=== PATIENT | male | born 1950 | race Caucasian/White ===

== ENCOUNTER 2018-09-13 22:15 | Emergency (ER) | payer OTHER ==
[2018-09-13 22:39] LABS: Absolute Lymphocytes (CBC) 0.4 K/uL (0.7-4.9); Basophils % 0.1 % (0-1.3); Hematocrit 40.5 % (39.6-49.0); Lymphocytes % 5.1 % (15.3-44.8); MPV 8.6 fL (7.6-11.3); RBC Red Blood Cell Count 4.64 M/uL (4.33-5.43)
[2018-09-13 22:43] LABS: Protime INR 1.09
[2018-09-13 23:00] LABS: Potassium 4.4 mmol/L (3.5-5.1); Troponin (Emerg Dept Use Only) 0.19 ng/mL (0.0-0.045)
[2018-09-13] MEDS ORDERED: ALTEPLASE 100 ML IV ONE (23:06)
[2018-09-13] MEDS ORDERED: NA CHLORIDE 0.9% 500 ML ONE (23:06)
[2018-09-13 23:12] LABS: Blood Morphology Comment NOT SEEN (NOT SEEN); Platelet Estimate ADEQ; Urine White Blood Cell Casts OK
[2018-09-13 23:42] LABS: Urine Blood NEGATIVE (NEG); Urine Glucose NEGATIVE (NEG); Urine Protein TRACE (NEG); Urine Specific Gravity 1.015 (1.005-1.030); Urine pH 8.5 (5.0-7.0)
--- NOTE | 2018-09-13 23:48 | ER ---
Nurse's Notes [facility] Name: Lamin Fitzpatrick III Age: 67 yrs Sex: Male : 1950 Arrival Date: 09/13/2018 Time: 22:18 Bed 2 Private MD: Diagnosis: Acute ischemic stroke;Weakness;Slurred speech;Paresthesia of skin Presentation: 09/13 22:16 Presenting complaint: EMS states: that they were toned for pt on floor x 2 hrs. He is fc having left sided paralysis and slurred speech. Last known time 1999 per sister who he lives with. Transition of care: patient was not received from another setting of care. An acute neurological deficit is present. The charge nurse has been notified. The patient has been moved to a treatment area. Pre-hospital glucose is not applicable to this patient. Onset of symptoms was September 13, 2018 at 20:00. Risk Assessment: Do you want to hurt yourself or someone else? Patient reports no desire to harm self or others. Initial Sepsis Screen: Does the patient meet any 2 criteria? HR > 90 bpm. Yes Does the patient have a suspected source of infection? No. Patient's initial sepsis screen is negative. Care prior to arrival: IV initiated. 18 GA, in the right antecubital area. 22:16 Method Of Arrival: EMS: [facility] 22:16 Acuity: JODIE 1 fc Triage Assessment: 22:16 The onset of the patients symptoms was September 13, 2018 at 20:00. General: Appears in no fc apparent distress. comfortable, obese, Behavior is calm, cooperative, appropriate for age. Pain: Denies pain. EENT: No deficits noted. Neuro: Level of Consciousness is awake, alert, obeys commands, Oriented to person, place, time, situation, Appropriate for age Chief Operator Hydroformer are weak on left Paralysis in left arm(s) leg(s) Speech is slurred, Facial droop on left, Pupils are PERRLA, decreased on left side. Reports paresthesias in left arm and left leg. Cardiovascular: Heart tones S1 S2 present Capillary refill < 3 seconds Pulses are all present. Rhythm is regular Chest pain is denied. Respiratory: Airway is patent Trachea midline Respiratory effort is even, unlabored, Respiratory pattern is regular, symmetrical, Breath sounds are clear bilaterally. Onset: The symptoms/episode began/occurred suddenly. GI: Abdomen is non-distended, Bowel sounds present X 4 quads. Abd is soft and non tender X 4 quads. Patient currently denies abdominal pain, nausea, vomiting. : No deficits noted. Derm: Skin is pink, warm \T\ dry. Musculoskeletal: Capillary refill < 3 seconds, Range of motion: paralysis on left side. Stroke Activation: Symtpom onset >3 hours and < 6 hours Physician: Stroke Attending; Name: ; Notified At: ; Arrived At: Physician: Chief Stroke Resident; Name: ; Notified At: ; Arrived At: Physician: Stroke Resident; Name: ; Notified At: ; Arrived At: Physician: ED Attending; Name: Noyola; Notified At: 22:22; Arrived At: 22:15 Physician: ED Resident; Name: ; Notified At: ; Arrived At: Historical: - Allergies: 23:40 No Known Allergies; fc - Home Meds: 23:40 aspirin 325 mg Oral tab 1 tab Every other day [Active]; carvedilol Oral 1 tab 2 times fc per day [Active]; - PMHx: 23:40 CHF; CAD; Gout; fc - PSHx: 23:40 CABG; fc - Immunization history:: Last tetanus immunization: unknown. - Social history:: Smoking status: Patient/guardian denies using tobacco, Patient uses alcohol, occasionally. - Family history:: not pertinent. - Ebola Screening: : Patient negative for fever greater than or equal to 101.5 degrees Fahrenheit, and additional compatible Ebola Virus Disease symptoms Patient denies exposure to infectious person Patient denies travel to an Ebola-affected area in the 21 days before illness onset. - Hospitalizations: : No recent hospitalization is reported. Screenin:16 Abuse screen: Denies threats or abuse. Nutritional screening: No deficits noted. fc Tuberculosis screening: No symptoms or risk factors identified. Fall Risk Fall in past 12 months (25 points). No secondary diagnosis (0 pts). IV access (20 points). Ambulatory Aid- None/Bed Rest/Nurse Assist (0 pts). Gait- Weak (10 pts.). Mental Status- Overestimates/Forgets Limitations (15 pts.). Total Castillo Fall Scale indicates High Risk Score (45 or more points). Fall prevention measures have been instituted. Side Rails Up X 2 Placed Close to Nursing Station Frequent Obs/Assessments Occuring As available patient and family educated on Fall Prevention Program and Strategies. Assessment: 22:[address] request. The patient is alert, and able to follow commands. The patient exhibits fc slurred or garbled speech. The patient is not exhibiting difficulty speaking. The patient is exhibiting difficulty understanding words. The patient is able to swallow own secretions with no drooling or need for suction. not done not done Provider notified of bedside swallow screening results: Warren Noyola MD. T-PA (Activase) Screening: Indications: Definite evidence of stroke, ischemic, embolic, or hypertensive: Yes. Treatment will start within 4.5 hours onset of symptoms: Yes. No evidence of intracranial hemorrhage or CT of head and no evidence of peripheral hemorrhage or recent CVA: Yes. Consent for thrombolytic therapy: Yes. 22:20 Reassessment: see triage assessment. fc 22:50 Reassessment: Dr Noyola speaking with pts family attempting to narrow down times better. fc 23:26 Reassessment: TPA started. Dr Noyola and family at bedside. fc 23:43 Reassessment: Dr Noyola at bedside to speak with family about pts current situation and fc what needs to be done. 23:54 Reassessment: Pt is red and has whelps all over his face. Dr Noyola in to see pt and fc ordered to hold TPA and give Benadryl. 23:56 Reassessment: has re-evaluated pt and pt to get Solu-Medrol and Pepcid. 09/14 00:00 Reassessment: See TPA vital sign sheet. fc 00:14 Reassessment: Life flight here at bedside and report given. fc 00:15 Reassessment: Pt now has small amt of movement to left leg but not to left arm. Speech fc clear. Vital Signs: 09/13 22:16 BP 153 / 97; Pulse 119; Resp 20; Temp 98.4(O); Pulse Ox 100% on R/A; Weight 100.7 kg fc (R); Height 6 ft. 1 in. (185.42 cm) (R); Pain 0/10; 22:45 BP 121 / 83; Pulse 115; Resp 20; Pulse Ox 100% ; fc 23:00 BP 123 / 92; Pulse 113; Resp 20; Pulse Ox 100% on R/A; 23:30 BP 123 / 85; Pulse 110; Resp 20; Pulse Ox 100% ; Pain 0/10; fc 09/14 00:00 BP 138 / 96; Pulse 126; Resp 22; Pulse Ox 100% on R/A; fc 09/13 22:16 Body Mass Index 29.29 (100.70 kg, 185.42 cm) NIH Stroke Scale Scores: 09/13 22:18 NIHSS Score: 12 fc 22:18 NIHSS Score: 12 fc 22:22 NIHSS Score: 12 market research intern Course: 22:16 Arm band placed on Patient placed in an exam room, on a stretcher. 22:16 Patient has correct armband on for positive identification. Placed in gown. Bed in low fc position. Call light in reach. Side rails up X2. surveillance system monitor on. Pulse ox on. NIBP on. 22:16 No provider procedures requiring assistance completed. Maintain EMS IV. Dressing fc intact. Good blood return noted. Site clean \T\ dry. Gauge \T\ site: 18 gauge to right a/c. 22:18 Patient arrived in ED. rn 22:18 Warren Noyola MD is Attending Physician. rn 22:31 CT completed. Patient tolerated procedure well. Patient moved back from CT. nj 22:35 CT Stroke Brain w/o Contrast In Process Unspecified. EDMS 22:37 Stroke CXR 1 View In Process Unspecified. EDMS 23:33 Triage completed. 09/14 00:20 Patient transferred, IV remains in place. ak1 Administered Medications: 09/13 23:26 Drug: ACTIvase {Co-Signature: akRaysa (Lashay Garrett RN).} Route: IV Thrombolytics; Rate: fc calculated rate; Infused Over: 60 mins; 09/14 00:15 Follow up: Response: Adverse reaction, Physician notified; Stopped and other fc medications given 00:15 Follow up: Response: Adverse reaction, Physician notified; Adverse reaction, Physician ak1 notified.order to d/c infusion. 09/13 23:55 Drug: Benadryl 50 mg Route: IVP; Site: right antecubital; 09/14 00:15 Follow up: Response: No adverse reaction; Marked relief of symptoms 00:01 Drug: SOLU-Medrol 125 mg Route: IVP; Site: right antecubital; 00:15 Follow up: Response: No adverse reaction; Marked relief of symptoms 00:01 Drug: Pepcid 20 mg Route: IVP; Site: right antecubital; 00:15 Follow up: Response: No adverse reaction; No change in condition Point of Care Testing: Blood Glucose: 09/13 22:25 Blood Glucose: 184 mg/dL; Ranges: Intake: Outcome: 23:47 ER care complete, transfer ordered by MD. curran 09/14 00:10 Transferred by helicopter to [facility], Transfer form completed. ak1 X-rays sent w/ patient. Note: report given to [facility]. flight . Condition: stable 00:10 Instructed on the need for transfer, Demonstrated understanding of instructions. ak1 00:20 Patient left the ED. NIH Stroke Scale - NIH Stroke Score Date: 09/13/2018 Time: 22:18 Total Score = 12 1a. Level of Consciousness (LOC) - 0(Alert) 1b. Level of Consciousness (LOC) (Year \T\ Age) - 0(Both) 1c. LOC Commands (Open \T\ Closes Eyes/Solar Energy Technician) - 0(Both) 2. Best Gaze (Lateral Gaze Paresis) - 0(Normal) 3. Visual Field Loss - 0(No visual loss) 4. Facial Palsy - 2(Partial paralysis) 5a. Left Arm: Motor (10-second hold) - 4(No movement) 5b. Right Arm: Motor (10-second hold) - 0(No drift) 6a. Left Leg: Motor (5-second hold - always test supine) - 4(No movement) 6b. Right Leg: Motor (5-second hold - always test supine) - 0(No drift) 7. Limb Ataxia (finger/nose \T\ heel/blank - test with eyes open) - 0(Absent) 8. Sensory Loss (pinprick arms/legs/face) - 1(Mild to moderate loss) 9. Best Language: Aphasia (description/naming/reading) - 0(No aphasia) 10. Dysarthria (speech clarity - read or repeat words) - 1(Mild to Moderate) 11. Extinction and Inattention (visual/tactile/auditory/spatial/personal) - 0(No abnormality) Initials: NIH Stroke Scale - NIH Stroke Score Date: 09/13/2018 Time: 22:18 Total Score = 12 1a. Level of Consciousness (LOC) - 0(Alert) 1b. Level of Consciousness (LOC) (Year \T\ Age) - 0(Both) 1c. LOC Commands (Open \T\ Closes Eyes/Solar Energy Technician) - 0(Both) 2. Best Gaze (Lateral Gaze Paresis) - 0(Normal) 3. Visual Field Loss - 0(No visual loss) 4. Facial Palsy - 2(Partial paralysis) 5a. Left Arm: Motor (10-second hold) - 4(No movement) 5b. Right Arm: Motor (10-second hold) - 0(No drift) 6a. Left Leg: Motor (5-second hold - always test supine) - 4(No movement) 6b. Right Leg: Motor (5-second hold - always test supine) - 0(No drift) 7. Limb Ataxia (finger/nose \T\ heel/blank - test with eyes open) - 0(Absent) 8. Sensory Loss (pinprick arms/legs/face) - 1(Mild to moderate loss) 9. Best Language: Aphasia (description/naming/reading) - 0(No aphasia) 10. Dysarthria (speech clarity - read or repeat words) - 1(Mild to Moderate) 11. Extinction and Inattention (visual/tactile/auditory/spatial/personal) - 0(No abnormality) Initials: NIH Stroke Scale - NIH Stroke Score Date: 09/13/2018 Time: 22:22 Total Score = 12 1a. Level of Consciousness (LOC) - 0(Alert) 1b. Level of Consciousness (LOC) (Year \T\ Age) - 0(Both) 1c. LOC Commands (Open \T\ Closes Eyes/Solar Energy Technician) - 0(Both) 2. Best Gaze (Lateral Gaze Paresis) - 0(Normal) 3. Visual Field Loss - 0(No visual loss) 4. Facial Palsy - 2(Partial paralysis) 5a. Left Arm: Motor (10-second hold) - 4(No movement) 5b. Right Arm: Motor (10-second hold) - 0(No drift) 6a. Left Leg: Motor (5-second hold - always test supine) - 4(No movement) 6b. Right Leg: Motor (5-second hold - always test supine) - 0(No drift) 7. Limb Ataxia (finger/nose \T\ heel/blank - test with eyes open) - 0(Absent) 8. Sensory Loss (pinprick arms/legs/face) - 1(Mild to moderate loss) 9. Best Language: Aphasia (description/naming/reading) - 0(No aphasia) 10. Dysarthria (speech clarity - read or repeat words) - 1(Mild to Moderate) 11. Extinction and Inattention (visual/tactile/auditory/spatial/personal) - 0(No abnormality) Initials: rn Signatures: Dispatcher [employer] EDMS Nuris Florez RN RN Warren Noyola MD MD rn Krenek, PATO Metz RN ak1 Syd Lopez RN ak1 Corrections: (The following items were deleted from the chart) 09/13 23:39 22:16 Care prior to arrival: IV initiated. 18 GA, in the left antecubital area, [facility] 09/14 00:12 00:00 BP 123 / 85; Pulse 110bpm; Resp 20bpm; Pulse Ox 100%; Pain 0/10; fc fc 00:19 08 22:18 The patient is alert, and able to follow commands. The patient fc exhibits slurred or garbled speech. The patient is not exhibiting difficulty speaking. The patient is exhibiting difficulty understanding words. The patient is able to swallow own secretions with no drooling or need for suction. not done not done Provider notified of bedside swallow screening results: Warren Noyola MD 09/14 02:16 02:10 Response: Adverse reaction, Physician notified; Adverse reaction, ak1 Physician notified.order to d/c infusion. ak1
--- NOTE | 2018-09-13 23:49 | EDPHYS ---
Physician Documentation [facility] Name: Lamin Fitzpatrick III Age: 67 yrs Sex: Male : 1950 Arrival Date: 09/13/2018 Time: 22:18 Bed 2 Private MD: ED Physician Warren Noyola HPI: 09/13 22:22 This 67 yrs old Male presents to ER via Unassigned with complaints of rn weakness, slurred speech. 22:19 Unclear onset, patient giving different information, seems fixated on left arm and both rn ankles swelling and hurting from "gout", reports was sitting on couch and per EMS report family ember stated that tried to get up and couldn't, slid down couch, and now slurred speech and left sided weakness. Patient denies previous symptoms like this. Reports for EMS was "a couple of hours ago", unable to get exact onset until family arrives, patient unaware of timing and difficult to get information out of.. 22:22 The patient presents to the emergency department with weakness of the left upper rn extremity, left lower extremity, a speech or higher order brain function problem. Onset: The symptoms/episode began/occurred at an unknown time. Associated signs and symptoms: Pertinent positives: This patient does not have any pertinent positives. Pertinent negatives: fever, headache, seizure, syncope. Severity of symptoms: At their worst the symptoms were moderate in the emergency department the symptoms are unchanged. Current symptoms: paralysis or paresis, that is complete. The patient has not experienced similar symptoms in the past. Historical: - Allergies: 23:40 No Known Allergies; fc - Home Meds: 23:40 aspirin 325 mg Oral tab 1 tab Every other day [Active]; carvedilol Oral 1 tab 2 times fc per day [Active]; - PMHx: 23:40 CHF; CAD; Gout; fc - PSHx: 23:40 CABG; fc - Immunization history:: Last tetanus immunization: unknown. - Social history:: Smoking status: Patient/guardian denies using tobacco, Patient uses alcohol, occasionally. - Family history:: not pertinent. - Ebola Screening: : Patient negative for fever greater than or equal to 101.5 degrees Fahrenheit, and additional compatible Ebola Virus Disease symptoms Patient denies exposure to infectious person Patient denies travel to an Ebola-affected area in the 21 days before illness onset. - Hospitalizations: : No recent hospitalization is reported. ROS: 22:22 Constitutional: Negative for fever, chills, and weight loss, Eyes: Negative for injury, rn pain, redness, and discharge, Neck: Negative for injury, pain, and swelling, Cardiovascular: Negative for chest pain, palpitations, and edema, Respiratory: Negative for shortness of breath, cough, wheezing, and pleuritic chest pain, Abdomen/GI: Negative for abdominal pain, nausea, vomiting, diarrhea, and constipation, MS/Extremity: Negative for injury and deformity, Skin: Negative for injury, rash, and discoloration, Neuro: + weakness of left side of body Exam: 22:22 Constitutional: This is a well developed, well nourished patient who is awake, alert, rn seems confused and slow to respond Head/Face: Normocephalic, atraumatic. Eyes: Pupils equal round and reactive to light, extra-ocular motions intact. Lids and lashes normal. Conjunctiva and sclera are non-icteric and not injected. Cornea within normal limits. Periorbital areas with no swelling, redness, or edema. ENT: MMM Cardiovascular: tachycardic, irregular Respiratory: Mild tachypnea with bibasilar crackles Abdomen/GI: soft, non-tender MS/ Extremity: Pulses equal, no cyanosis. + mild swelling and discoloration of left hand, abrasion to right lateral ankle. Neuro: Awake, alert, GCS 15, + complete LUE/LLE paresis, + left lower facial droop with forehead sparing. Vital Signs: 22:16 BP 153 / 97; Pulse 119; Resp 20; Temp 98.4(O); Pulse Ox 100% on R/A; Weight 100.7 kg fc (R); Height 6 ft. 1 in. (185.42 cm) (R); Pain 0/10; 22:45 BP 121 / 83; Pulse 115; Resp 20; Pulse Ox 100% ; fc 23:00 BP 123 / 92; Pulse 113; Resp 20; Pulse Ox 100% on R/A; fc 23:30 BP 123 / 85; Pulse 110; Resp 20; Pulse Ox 100% ; Pain 0/10; fc 0807 00:00 BP 138 / 96; Pulse 126; Resp 22; Pulse Ox 100% on R/A; fc 08/06 22:16 Body Mass Index 29.29 (100.70 kg, 185.42 cm) NIH Stroke Scale Scores: 09/13 22:18 NIHSS Score: 12 22:18 NIHSS Score: 12 22:22 NIHSS Score: 12 rn MDM: 22:18 Patient medically screened. rn 22:34 ED course: family still not here to confirm onset or details. . rn 22:52 ED course: Family member here, states normal earlier in day, left to beach, came back rn and was seated watching tv, and hadnormal conversation and no symptoms at 6:30-7pm, he asked for help around 8PM and noticed speech and weakness. . ED course: TPA ordered with onset suspected at 8PM.. 23:23 Data reviewed: vital signs, nurses notes, lab test result(s), EKG, radiologic studies, rn CT scan, and as a result, I will admit patient. Counseling: I had a detailed discussion with the patient and/or guardian regarding: the historical points, exam findings, and any diagnostic results supporting the discharge/admit diagnosis, lab results, radiology results. 23:46 Response to treatment: There is no appreciated change of the patient's symptoms at this rn time. ED course: Accepted for transfer to [facility] neuro ICU. . 09/13 22:19 Order name: CPK; Complete Time: 23:10 rn 09/13 22:19 Order name: Troponin (emerg Dept Use Only); Complete Time: 23:10 rn 09/13 22:19 Order name: Basic Metabolic Panel; Complete Time: 23:10 rn 09/13 22:19 Order name: CBC with Diff; Complete Time: 23:22 rn 09/13 22:19 Order name: Protime (+inr); Complete Time: 22:52 rn 09/13 22:19 Order name: Ptt, Activated; Complete Time: 22:52 rn 09/13 22:19 Order name: CT Stroke Brain w/o Contrast rn 09/13 22:19 Order name: Stroke CXR 1 View rn 09/13 23:12 Order name: CBC Smear Scan; Complete Time: 23:22 EDDE 09/13 23:28 Order name: Urine Dipstick--Ancillary (enter results) ag4 09/13 22:19 Order name: EKG; Complete Time: 22:25 rn 08/06 22:19 Order name: Accucheck; Complete Time: 00:02 rn 09/13 22:19 Order name: Cardiac monitoring; Complete Time: 00:02 rn 09/13 22:19 Order name: EKG - Nurse/Tech; Complete Time: 23:48 rn 09/13 22:19 Order name: IV Saline Lock; Complete Time: 23:48 rn 09/13 22:19 Order name: Labs collected and sent; Complete Time: 23:48 rn 09/13 22:19 Order name: NPO; Complete Time: 23:48 rn 09/13 22:19 Order name: O2 Per Protocol; Complete Time: 23:48 rn 09/13 22:19 Order name: O2 Sat Monitoring; Complete Time: 23:48 rn Administered Medications: 23:26 Drug: ACTIvase {Co-Signature: ak1 (Lashay Garrett RN).} Route: IV Thrombolytics; Rate: fc calculated rate; Infused Over: 60 mins; 09/14 00:15 Follow up: Response: Adverse reaction, Physician notified; Stopped and other fc medications given 09/13 23:55 Drug: Benadryl 50 mg Route: IVP; Site: right antecubital; fc 09/14 00:15 Follow up: Response: No adverse reaction; Marked relief of symptoms fc 00:01 Drug: SOLU-Medrol 125 mg Route: IVP; Site: right antecubital; 00:15 Follow up: Response: No adverse reaction; Marked relief of symptoms 00:01 Drug: Pepcid 20 mg Route: IVP; Site: right antecubital; 00:15 Follow up: Response: No adverse reaction; No change in condition Point of Care Testing: Blood Glucose: 09/13 22:25 Blood Glucose: 184 mg/dL; fc Ranges: Critical Glucose Levels:Adult <50 mg/dl or >400 mg/dl <40 mg/dl or >180 mg/dl Disposition: 09/13/18 23:47 Transfer ordered to [facility]. Diagnosis are Acute ischemic stroke, Weakness, Slurred speech, Paresthesia of skin. - Reason for transfer: Higher level of care. - Accepting physician is . - Condition is Stable. - Problem is new. - Symptoms are unchanged. NIH Stroke Scale - NIH Stroke Score Date: 09/13/2018 Time: 22:18 Total Score = 12 1a. Level of Consciousness (LOC) - 0(Alert) 1b. Level of Consciousness (LOC) (Year \\T\\ Age) - 0(Both) 1c. LOC Commands (Open \\T\\ Closes Eyes/Filter Cleaner) - 0(Both) 2. Best Gaze (Lateral Gaze Paresis) - 0(Normal) 3. Visual Field Loss - 0(No visual loss) 4. Facial Palsy - 2(Partial paralysis) 5a. Left Arm: Motor (10-second hold) - 4(No movement) 5b. Right Arm: Motor (10-second hold) - 0(No drift) 6a. Left Leg: Motor (5-second hold - always test supine) - 4(No movement) 6b. Right Leg: Motor (5-second hold - always test supine) - 0(No drift) 7. Limb Ataxia (finger/nose \\T\\ heel/blank - test with eyes open) - 0(Absent) 8. Sensory Loss (pinprick arms/legs/face) - 1(Mild to moderate loss) 9. Best Language: Aphasia (description/naming/reading) - 0(No aphasia) 10. Dysarthria (speech clarity - read or repeat words) - 1(Mild to Moderate) 11. Extinction and Inattention (visual/tactile/auditory/spatial/personal) - 0(No abnormality) Initials: NIH Stroke Scale - NIH Stroke Score Date: 09/13/2018 Time: 22:18 Total Score = 12 1a. Level of Consciousness (LOC) - 0(Alert) 1b. Level of Consciousness (LOC) (Year \\T\\ Age) - 0(Both) 1c. LOC Commands (Open \\T\\ Closes Eyes/Filter Cleaner) - 0(Both) 2. Best Gaze (Lateral Gaze Paresis) - 0(Normal) 3. Visual Field Loss - 0(No visual loss) 4. Facial Palsy - 2(Partial paralysis) 5a. Left Arm: Motor (10-second hold) - 4(No movement) 5b. Right Arm: Motor (10-second hold) - 0(No drift) 6a. Left Leg: Motor (5-second hold - always test supine) - 4(No movement) 6b. Right Leg: Motor (5-second hold - always test supine) - 0(No drift) 7. Limb Ataxia (finger/nose \\T\\ heel/blank - test with eyes open) - 0(Absent) 8. Sensory Loss (pinprick arms/legs/face) - 1(Mild to moderate loss) 9. Best Language: Aphasia (description/naming/reading) - 0(No aphasia) 10. Dysarthria (speech clarity - read or repeat words) - 1(Mild to Moderate) 11. Extinction and Inattention (visual/tactile/auditory/spatial/personal) - 0(No abnormality) Initials: NIH Stroke Scale - NIH Stroke Score Date: 09/13/2018 Time: 22:22 Total Score = 12 1a. Level of Consciousness (LOC) - 0(Alert) 1b. Level of Consciousness (LOC) (Year \\T\\ Age) - 0(Both) 1c. LOC Commands (Open \\T\\ Closes Eyes/Filter Cleaner) - 0(Both) 2. Best Gaze (Lateral Gaze Paresis) - 0(Normal) 3. Visual Field Loss - 0(No visual loss) 4. Facial Palsy - 2(Partial paralysis) 5a. Left Arm: Motor (10-second hold) - 4(No movement) 5b. Right Arm: Motor (10-second hold) - 0(No drift) 6a. Left Leg: Motor (5-second hold - always test supine) - 4(No movement) 6b. Right Leg: Motor (5-second hold - always test supine) - 0(No drift) 7. Limb Ataxia (finger/nose \\T\\ heel/blank - test with eyes open) - 0(Absent) 8. Sensory Loss (pinprick arms/legs/face) - 1(Mild to moderate loss) 9. Best Language: Aphasia (description/naming/reading) - 0(No aphasia) 10. Dysarthria (speech clarity - read or repeat words) - 1(Mild to Moderate) 11. Extinction and Inattention (visual/tactile/auditory/spatial/personal) - 0(No abnormality) Initials: rn Signatures: Dispatcher [employer] Nuris Parham RN RN Warren Noyola MD MD rn Amber Krenek RN ak1 Corrections: (The following items were deleted from the chart) 23:49 22:19 Stroke Swallow Screen ordered. magdy lujan 09/14 00:20 09/13 23:47 09/13/2018 23:[address] [facility]. Diagnosis is Acute ischemic stroke; Weakness; Slurred speech; Paresthesia of skin. Reason for transfer: Higher level of care. Accepting physician is . Condition is Stable. Problem is new. Symptoms are unchanged. rn
[2018-09-13] MEDS ORDERED: DIPHENHYDRAMINE 50 MG/ML VIAL ONE (23:58)
[2018-09-14] MEDS ORDERED: FAMOTIDINE 20 MG/2 ML VIAL IV ONE (00:03)
[2018-09-14] MEDS ORDERED: METHYLPREDNISOLONE 125 MG INJ ONE (00:03)
[2018-09-14 01:02] VITALS: TEMP 98.4; O2SAT 100
[2018-09-14 01:10] VITALS: BP 138/96
--- NOTE | 2018-09-14 07:06 | EKG ---
Test Date: 2018-09-13 Test Time: 22:45:03 Restaurant Lead: R[place] MEASUREMENT RESULTS: Intervals: Rate: 110 TX: 160 QRSD: 128 QT: 370 QTc: 500 [place]: P: 70 TX: 160 QRS: -33 T: 129 INTERPRETIVE STATEMENTS: Sinus tachycardia with premature atrial complexes Left atrial enlargement Left axis deviation Left ventricular hypertrophy with QRS widening and repolarization abnormality Abnormal ECG Compared to ECG 03/12/2015 06:57:30 Atrial premature complex(es) now present Left-axis deviation now present Sinus rhythm no longer present Electronically Signed On 09-14-18 07:05:49 CDT by Jose M Walker
--- NOTE | 2018-09-14 08:44 | RAD REPORT ---
EXAM DESCRIPTION: RAD - Chest Single View - 09/13/2018 10:39 pm CLINICAL HISTORY: Code stroke chest film COMPARISON: March 2015 TECHNIQUE: AP portable chest image was obtained 2240 hours . FINDINGS: Lung volumes are low. Interstitial and alveolar opacities are present in excess of shallow inspiration artifact. Cardiomegaly and vascular engorgement are present. Sternotomy wires are in juan pablo ce. Trachea is midline. No pneumothorax or large pleural effusion. No acute bony abnormality seen. No acute aortic findings suspected. IMPRESSION: Moderate CHF/volume overload pattern.
--- NOTE | 2018-09-14 11:25 | RAD REPORT ---
EXAM DESCRIPTION: CT - Ct Stroke Brain Wo Cont - 09/14/2018 1:58 am ADDENDUM #1 Findings were discussed by Dr. Nagel via telephone with Jeanne Cantu NP on 09/13/2018 10:48 PM CDT. Electronically signed by: Issac Nagel MD 09/13/2018 10:48 PM CDT End of Addendum EXAM DESCRIPTION: CT Head Without Intravenous Contrast CLINICAL HISTORY: The patient is 67 years old and is Male; WEAKNESS TECHNIQUE: Axial computed tomography images of the head/brain without intravenous contrast. Sagittal and coronal reformatted images were created and reviewed. This Axial computed tomography images of the head/brain without intravenous contrast. Sagittal and coronal reformatted images were created and reviewed. This CT exam was performed using one or more of the following dose reduction techniqu es: automated exposure control, adjustment of the mA and/or kV according to patient size, and/or us e of iterative reconstruction technique. COMPARISON: No relevant prior studies available. FINDINGS: Brain: Periventricular and deep white matter hypodensities, most commonly due to nonspec [facility] white matter chronic microvascular ischemia. No hemorrhage. Ventricles: Unremarkable. No ventriculomegaly. Bones/joints: Unremarkable. No acute fracture. Soft tissues: Unremarkable. Vasculature: Vascular calcifications. Sinuses: Unremarkable as visualized. No acute sinusitis. Mastoid air cells: Unremarkable as visualized. No mastoid effusion. IMPRESSION: No acute intracranial findings. Mild nonspecific chronic microvascular ischemic changes. If there is persistent concern for acute ischemia recommend obtaining MRI for further evaluation. Electronically signed by: Issac Nagel MD 09/13/2018 10:46 PM CDT Due to temporary technical issues with the PACS/Fluency reporting system, reports are being signed by the in house radiologist as a courtesy to ensure prompt reporting. The interpreting radiologist is f ully responsible for the content of the report.
== END 2018-09-14 00:20 | disposition short-term general hospital (02) ==
LOC: ER 22:15
DX: I63.9 Cerebral infarction, unspecified (principal); R47.81 Slurred speech; R29.712 NIHSS score 12; R20.2 Paresthesia of skin; I50.9 Heart failure, unspecified; I25.10 Atherosclerotic heart disease of native coronary artery without angina pectoris; Z79.82 Long term (current) use of aspirin; Z95.1 Presence of aortocoronary bypass graft
CPT/HCPCS: 96374; 93005; 85025; 80048; 36415; 82550; 85610; 82962; 85730; 81003; 84484; 70450; 71045; J2997; 92977; 96375; 99291; 99292

== ENCOUNTER 2019-05-18 11:47 | Inpatient (IN) | payer OTHER ==
--- OUTSIDE RECORDS SUMMARY | 2019-05-18 12:20 | XMS REPORT ---
:1950 Author Organization [facility] t Address [address] [place] [address] Care Team Providers Name Role Phone QUICK Unavailable Unavailable LULU Unavailable Unavailable Problems This patient has no known problems. Allergies, Adverse Reactions, Alerts This patient has no known allergies or adverse reactions. Medications This patient has no known medications. Results Test Description Test Time Test Comments Text Results Atomic Results Result Comments POCT-GLUCOSE METER 2018-10-14 11:45:00 Test Item Value Reference Range Comments POC-GLUCOSE METER (BEAKER) (test 138 mg/dL 70-110 TESTED AT [address] code = 1538) [facility] [id number] POCT-GLUCOSE [id number] 06:18:00 Test Item Value Reference Range Comments POC-GLUCOSE METER (BEAKER) 127 mg/dL 70-110 TESTE D AT [address] (test code = 1538) [place] [address] POCT-GLUCOSE [id number] 00:19:00 Test Item Value Reference Range Comments POC-GLUCOSE METER (BEAKER) 124 mg/dL 70-110 TESTE D AT [address] (test code = 1538) [place] [address] POCT-GLUCOSE [id number] 15:26:00 Test Item Value Reference Range Comments POC-GLUCOSE METER (BEAKER) 113 mg/dL 70-110 TESTE D AT [address] (test code = 1538) [place] [address] POCT-GLUCOSE [id number] 10:30:00 Test Item Value Reference Range Comments POC-GLUCOSE METER (BEAKER) 134 mg/dL 70-110 TESTE D AT [address] (test code = 1538) [place] [address] POCT-GLUCOSE [id number] 06:25:00 Test Item Value Reference Range Comments POC-GLUCOSE METER (BEAKER) 120 mg/dL 70-110 TESTE D AT [address] (test code = 1538) [place] [address] POCT-GLUCOSE [id number] 01:12:00 Test Item Value Reference Range Comments POC-GLUCOSE METER (BEAKER) 122 mg/dL 70-110 TESTE D AT [address] (test code = 1538) [place] [address] POCT-GLUCOSE [id number] 18:32:00 Test Item Value Reference Range Comments POC-GLUCOSE METER (BEAKER) 129 mg/dL 70-110 TESTE D AT [address] (test code = 1538) [place] [address] POCT-GLUCOSE [id number] 12:10:00 Test Item Value Reference Range Comments POC-GLUCOSE METER (BEAKER) 125 mg/dL 70-110 TESTE D AT [address] (test code = 1538) [place] [address] POCT-GLUCOSE [id number] 05:50:00 Test Item Value Reference Range Comments POC-GLUCOSE METER (BEAKER) 115 mg/dL 70-110 TESTE D AT [address] (test code = 1538) [place] [address] POCT-GLUCOSE [id number] 23:18:00 Test Item Value Reference Range Comments POC-GLUCOSE METER (BEAKER) 117 mg/dL 70-110 TESTE D AT [address] (test code = 1538) [place] [address] POCT-GLUCOSE [id number] 16:33:00 Test Item Value Reference Range Comments POC-GLUCOSE METER (BEAKER) 124 mg/dL 70-110 TESTE D AT [address] (test code = 1538) [place] [address] POCT-GLUCOSE [id number] 11:48:00 Test Item Value Reference Range Comments POC-GLUCOSE METER (BEAKER) 147 mg/dL 70-110 TESTE D AT [address] (test code = 1538) [place] [id number] BASIC METABOLIC [id number] 07:27:00 Test Item Value Reference Range Comments SODIUM (BEAKER) (test 138 meq/L 136-145 code = 381) POTASSIUM (BEAKER) (test 3.9 meq/L 3.5-5.1 Specime n slightly code = 379) hemolyzed CHLORIDE (BEAKER) (test 102 meq/L 98-107 code = 382) CO2 (BEAKER) (test code = 28 meq/L 22-29 355) BLOOD UREA NITROGEN 22 mg/dL 7-21 (BEAKER) (test code = 354) CREATININE (BEAKER) (test 0.88 mg/dL 0.57-1.25 Specim en slightly code = 358) hemolyzed GLUCOSE RANDOM (BEAKER) 123 mg/dL 70-105 (test code = 652) CALCIUM (BEAKER) (test 8.3 mg/dL 8.4-10.2 code = 697) EGFR (BEAKER) (test code 86 mL/min/1.73 sq m EST IMATED GFR IS NOT = 1092) ACCURATE CREA TININE CLEARANCE IN PRE DICTING GLOMERULAR FILTR ATION RATE. ESTIMATED GFR IS NOT APPLICABLE F OR DIALYSIS PATIENT S. CBC W/PLT COUNT & AUTO [id number] 06:26:00 Test Item Value Reference Range Comments WHITE BLOOD CELL COUNT (BEAKER) (test code = 3.8 K/ L 3.5 -10.5 775) RED BLOOD CELL COUNT (BEAKER) (test code = 761) 4.33 M/ L 4.63-6.08 HEMOGLOBIN (BEAKER) (test code = 410) 12.3 GM/DL 13.7-17.5 HEMATOCRIT (BEAKER) (test code = 411) 38.9 % 40.1-51.0 MEAN CORPUSCULAR VOLUME (BEAKER) (test code = 89.8 fL 79 .0-92.2 753) MEAN CORPUSCULAR HEMOGLOBIN (BEAKER) (test code 28.4 pg 25.7-32.2 = 751) MEAN CORPUSCULAR HEMOGLOBIN CONC (BEAKER) (test 31.6 GM/DL 32.3-36.5 code = 752) RED CELL DISTRIBUTION WIDTH (BEAKER) (test code 15.8 % 11.6-14.4 = 412) PLATELET COUNT (BEAKER) (test code = 756) 150 K/CU MM 150-45 0 MEAN PLATELET VOLUME (BEAKER) (test code = 754) 11.8 fL 9.4-12.4 NEUTROPHILS RELATIVE PERCENT (BEAKER) (test code 65 % = 429) LYMPHOCYTES RELATIVE PERCENT (BEAKER) (test code 18 % = 430) MONOCYTES RELATIVE PERCENT (BEAKER) (test code = 9 % 431) EOSINOPHILS RELATIVE PERCENT (BEAKER) (test code 8 % = 432) BASOPHILS RELATIVE PERCENT (BEAKER) (test code = 1 % 437) NEUTROPHILS ABSOLUTE COUNT (BEAKER) (test code = 2.48 K/ L 1.78-5.38 670) LYMPHOCYTES ABSOLUTE COUNT (BEAKER) (test code = 0.69 K/ L 1.32-3.57 414) MONOCYTES ABSOLUTE COUNT (BEAKER) (test code = 0.34 K/ L 0 .30-0.82 415) EOSINOPHILS ABSOLUTE COUNT (BEAKER) (test code = 0.30 K/ L 0.04-0.54 416) BASOPHILS ABSOLUTE COUNT (BEAKER) (test code = 0.02 K/ L 0 .01-0.08 417) IMMATURE GRANULOCYTES-RELATIVE PERCENT (BEAKER) 0 % 0-1 (test code = 2801) POCT-GLUCOSE [id number] 06:10:00 Test Item Value Reference Range Comments POC-GLUCOSE METER (BEAKER) 126 mg/dL 70-110 TESTE D AT [address] (test code = 1538) [place] [address] POCT-GLUCOSE [id number] 23:53:00 Test Item Value Reference Range Comments POC-GLUCOSE METER (BEAKER) 126 mg/dL 70-110 TESTE D AT [address] (test code = 1538) [place] [address] POCT-GLUCOSE [id number] 16:56:00 Test Item Value Reference Range Comments POC-GLUCOSE METER (BEAKER) 92 mg/dL 70-110 TESTE D AT [address] (test code = 1538) [place] [address] POCT-GLUCOSE [id number] 11:37:00 Test Item Value Reference Range Comments POC-GLUCOSE METER (BEAKER) 129 mg/dL 70-110 TESTE D AT [address] (test code = 1538) [place] [address] POCT-GLUCOSE [id number] 06:50:00 Test Item Value Reference Range Comments POC-GLUCOSE METER (BEAKER) 137 mg/dL 70-110 TESTE D AT [address] (test code = 1538) [place] [address] POCT-GLUCOSE [id number] 00:48:00 Test Item Value Reference Range Comments POC-GLUCOSE METER (BEAKER) 120 mg/dL 70-110 TESTE D AT [address] (test code = 1538) [place] [address] POCT-GLUCOSE [id number] 17:06:00 Test Item Value Reference Range Comments POC-GLUCOSE METER (BEAKER) 114 mg/dL 70-110 TESTE D AT [address] (test code = 1538) [place] [address] POCT-GLUCOSE [id number] 11:30:00 Test Item Value Reference Range Comments POC-GLUCOSE METER (BEAKER) 122 mg/dL 70-110 TESTE D AT [address] (test code = 1538) [place] [address] POCT-GLUCOSE [id number] 06:30:00 Test Item Value Reference Range Comments POC-GLUCOSE METER (BEAKER) 109 mg/dL 70-110 TESTE D AT [address] (test code = 1538) [place] [address] POCT-GLUCOSE [id number] 02:39:00 Test Item Value Reference Range Comments POC-GLUCOSE METER (BEAKER) 122 mg/dL 70-110 TESTE D AT [address] (test code = 1538) [place] [address] POCT-GLUCOSE [id number] 16:32:00 Test Item Value Reference Range Comments POC-GLUCOSE METER (BEAKER) 119 mg/dL 70-110 TESTE D AT [address] (test code = 1538) [place] [address] POCT-GLUCOSE [id number] 06:25:00 Test Item Value Reference Range Comments POC-GLUCOSE METER (BEAKER) 110 mg/dL 70-110 TESTE D AT [address] (test code = 1538) [place] [address] POCT-GLUCOSE [id number] 00:07:00 Test Item Value Reference Range Comments POC-GLUCOSE METER (BEAKER) 132 mg/dL 70-110 TESTE D AT [address] (test code = 1538) [place] [address] POCT-GLUCOSE [id number] 17:25:00 Test Item Value Reference Range Comments POC-GLUCOSE METER (BEAKER) 147 mg/dL 70-110 TESTE D AT [address] (test code = 1538) [place] [address] POCT-GLUCOSE [id number] 12:26:00 Test Item Value Reference Range Comments POC-GLUCOSE METER (BEAKER) 188 mg/dL 70-110 TESTE D AT [address] (test code = 1538) [place] [address] POCT-GLUCOSE [id number] 06:28:00 Test Item Value Reference Range Comments POC-GLUCOSE METER (BEAKER) 107 mg/dL 70-110 TESTE D AT [address] (test code = 1538) [place] [address] POCT-GLUCOSE [id number] 23:53:00 Test Item Value Reference Range Comments POC-GLUCOSE METER (BEAKER) 143 mg/dL 70-110 TESTE D AT [address] (test code = 1538) [place] [address] POCT-GLUCOSE [id number] 17:13:00 Test Item Value Reference Range Comments POC-GLUCOSE METER (BEAKER) 180 mg/dL 70-110 TESTE D AT [address] (test code = 1538) [place] [address] FL, ESOPH, SWALLOW FUNCTION, WITH CINE OR [id number] 15:39:00Reason for exam:->dysphagiaFINAL REPORT Modified barium swallow Reason for examination: dysphagiaTECHNIQUE: Fluoroscopy provided. RADIATION DOSE: Fluoroscopy Time: 1.17 min Dose (Kerma) Area Product: 1894.3 mGycm2 Air Kerma (AK) value has been reviewed. It is below the limits set by the Radiation Protocol Committee (RPC) committee. DISCUSSION: Initial panama hat smearer view of the chest shows no acute abnormalities. This examination was conducted in conjunction with speech pathologist. Patient was given, by mouth, liquids, semisolids, and solids. No aspiration was noted. There were two episodes of laryngeal penetration with nectar. IMPRESSION: No evidence of aspiration. Two episodes of laryngeal penetration with nectar. Please see speech pathology report for detailed description andrecommendations. Signed: Samaria Posadaort Verified Date/Time: 10/06/2018 15:39:34 Reading Location: [facility] Reading Room 3 - B01.625 POCT-GLUCOSE [id number] 05:51:00 Test Item Value Reference Range Comments POC-GLUCOSE METER (BEAKER) 111 mg/dL 70-110 TESTE D AT [address] (test code = 1538) [place] [address] POCT-GLUCOSE [id number] 23:49:00 Test Item Value Reference Range Comments POC-GLUCOSE METER (BEAKER) 169 mg/dL 70-110 TESTE D AT [address] (test code = 1538) [place] [address] POCT-GLUCOSE [id number] 17:11:00 Test Item Value Reference Range Comments POC-GLUCOSE METER (BEAKER) 182 mg/dL 70-110 TESTE D AT [address] (test code = 1538) [place] [address] POCT-GLUCOSE [id number] 12:14:00 Test Item Value Reference Range Comments POC-GLUCOSE METER (BEAKER) 162 mg/dL 70-110 TESTE D AT [address] (test code = 1538) [place] [address] POCT-GLUCOSE [id number] 06:32:00 Test Item Value Reference Range Comments POC-GLUCOSE METER (BEAKER) 122 mg/dL 70-110 TESTE D AT [address] (test code = 1538) [place] [address] POCT-GLUCOSE [id number] 23:30:00 Test Item Value Reference Range Comments POC-GLUCOSE METER (BEAKER) 133 mg/dL 70-110 TESTE D AT [address] (test code = 1538) [place] [address] POCT-GLUCOSE [id number] 16:43:00 Test Item Value Reference Range Comments POC-GLUCOSE METER (BEAKER) 180 mg/dL 70-110 TESTE D AT [address] (test code = 1538) [place] [address] POCT-GLUCOSE [id number] 12:06:00 Test Item Value Reference Range Comments POC-GLUCOSE METER (BEAKER) 185 mg/dL 70-110 TESTE D AT [address] (test code = 1538) [place] [address] POCT-GLUCOSE [id number] 06:37:00 Test Item Value Reference Range Comments POC-GLUCOSE METER (BEAKER) 128 mg/dL 70-110 TESTE D AT [address] (test code = 1538) [place] [address] POCT-GLUCOSE [id number] 00:37:00 Test Item Value Reference Range Comments POC-GLUCOSE METER (BEAKER) 138 mg/dL 70-110 TESTE D AT [address] (test code = 1538) [place] [address] POCT-GLUCOSE [id number] 16:37:00 Test Item Value Reference Range Comments POC-GLUCOSE METER (BEAKER) 166 mg/dL 70-110 TESTE D AT [address] (test code = 1538) [place] [address] POCT-GLUCOSE [id number] 11:53:00 Test Item Value Reference Range Comments POC-GLUCOSE METER (BEAKER) 182 mg/dL 70-110 TESTE D AT [address] (test code = 1538) [place] [address] POCT-GLUCOSE [id number] 06:23:00 Test Item Value Reference Range Comments POC-GLUCOSE METER (BEAKER) 109 mg/dL 70-110 TESTE D AT [address] (test code = 1538) [place] [address] BASIC METABOLIC [id number] 05:27:00 Test Item Value Reference Range Comments SODIUM (BEAKER) (test 136 meq/L 136-145 code = 381) POTASSIUM (BEAKER) (test 4.2 meq/L 3.5-5.1 Specime n slightly code = 379) hemolyzed CHLORIDE (BEAKER) (test 100 meq/L 98-107 code = 382) CO2 (BEAKER) (test code = 29 meq/L 22-29 355) BLOOD UREA NITROGEN 37 mg/dL 7-21 (BEAKER) (test code = 354) CREATININE (BEAKER) (test 0.98 mg/dL 0.57-1.25 Specim en slightly code = 358) hemolyzed GLUCOSE RANDOM (BEAKER) 118 mg/dL 70-105 (test code = 652) CALCIUM (BEAKER) (test 8.9 mg/dL 8.4-10.2 code = 697) EGFR (BEAKER) (test code 76 mL/min/1.73 sq m EST IMATED GFR IS NOT = 1092) ACCURATE CREA TININE CLEARANCE IN PRE DICTING GLOMERULAR FILTR ATION RATE. ESTIMATED GFR IS NOT APPLICABLE F OR DIALYSIS PATIENT S. CBC W/PLT COUNT & AUTO [id number] 04:54:00 Test Item Value Reference Range Comments WHITE BLOOD CELL COUNT (BEAKER) (test code = 7.8 K/ L 3.5 -10.5 775) RED BLOOD CELL COUNT (BEAKER) (test code = 761) 4.17 M/ L 4.63-6.08 HEMOGLOBIN (BEAKER) (test code = 410) 12.0 GM/DL 13.7-17.5 HEMATOCRIT (BEAKER) (test code = 411) 36.7 % 40.1-51.0 MEAN CORPUSCULAR VOLUME (BEAKER) (test code = 88.0 fL 79 .0-92.2 753) MEAN CORPUSCULAR HEMOGLOBIN (BEAKER) (test code 28.8 pg 25.7-32.2 = 751) MEAN CORPUSCULAR HEMOGLOBIN CONC (BEAKER) (test 32.7 GM/DL 32.3-36.5 code = 752) RED CELL DISTRIBUTION WIDTH (BEAKER) (test code 14.7 % 11.6-14.4 = 412) PLATELET COUNT (BEAKER) (test code = 756) 240 K/CU MM 150-45 0 MEAN PLATELET VOLUME (BEAKER) (test code = 754) 11.4 fL 9.4-12.4 NEUTROPHILS RELATIVE PERCENT (BEAKER) (test code 74 % = 429) LYMPHOCYTES RELATIVE PERCENT (BEAKER) (test code 17 % = 430) MONOCYTES RELATIVE PERCENT (BEAKER) (test code = 7 % 431) EOSINOPHILS RELATIVE PERCENT (BEAKER) (test code 0 % = 432) BASOPHILS RELATIVE PERCENT (BEAKER) (test code = 0 % 437) NEUTROPHILS ABSOLUTE COUNT (BEAKER) (test code = 5.75 K/ L 1.78-5.38 670) LYMPHOCYTES ABSOLUTE COUNT (BEAKER) (test code = 1.34 K/ L 1.32-3.57 414) MONOCYTES ABSOLUTE COUNT (BEAKER) (test code = 0.57 K/ L 0 .30-0.82 415) EOSINOPHILS ABSOLUTE COUNT (BEAKER) (test code = 0.03 K/ L 0.04-0.54 416) BASOPHILS ABSOLUTE COUNT (BEAKER) (test code = 0.02 K/ L 0 .01-0.08 417) IMMATURE GRANULOCYTES-RELATIVE PERCENT (BEAKER) 1 % 0-1 (test code = 2801) POCT-GLUCOSE [id number] 01:27:00 Test Item Value Reference Range Comments POC-GLUCOSE METER (BEAKER) 122 mg/dL 70-110 TESTE D AT [address] (test code = 1538) [place] [address] POCT-GLUCOSE [id number] 16:45:00 Test Item Value Reference Range Comments POC-GLUCOSE METER (BEAKER) 197 mg/dL 70-110 TESTE D AT [address] (test code = 1538) [place] [address] POCT-GLUCOSE [id number] 12:19:00 Test Item Value Reference Range Comments POC-GLUCOSE METER (BEAKER) 186 mg/dL 70-110 TESTE D AT [address] (test code = 1538) [place] [address] POCT-GLUCOSE [id number] 06:06:00 Test Item Value Reference Range Comments POC-GLUCOSE METER (BEAKER) 123 mg/dL 70-110 TESTE D AT [address] (test code = 1538) [place] [address] POCT-GLUCOSE [id number] 00:23:00 Test Item Value Reference Range Comments POC-GLUCOSE METER (BEAKER) 111 mg/dL 70-110 TESTE D AT [address] (test code = 1538) [place] [address] POCT-GLUCOSE [id number] 16:33:00 Test Item Value Reference Range Comments POC-GLUCOSE METER (BEAKER) 220 mg/dL 70-110 TESTE D AT [address] (test code = 1538) [place] [address] POCT-GLUCOSE [id number] 12:05:00 Test Item Value Reference Range Comments POC-GLUCOSE METER (BEAKER) 197 mg/dL 70-110 TESTE D AT [address] (test code = 1538) [place] [address] URIC [id number] 08:32:00 Test Item Value Reference Range Comments URIC ACID (BEAKER) (test code = 773) 9.8 mg/dL 2.6-7.2 POCT-GLUCOSE [id number] 06:39:00 Test Item Value Reference Range Comments POC-GLUCOSE METER (BEAKER) 140 mg/dL 70-110 TESTE D AT [facility] [address] [place] [address] (test code = 1538) [place] [address] POCT-GLUCOSE [id number] 23:49:00 Test Item Value Reference Range Comments POC-GLUCOSE METER (BEAKER) 162 mg/dL 70-110 TESTE D AT [address] (test code = 1538) [place] [address] POCT-GLUCOSE [id number] 16:38:00 Test Item Value Reference Range Comments POC-GLUCOSE METER (BEAKER) 196 mg/dL 70-110 TESTE D AT [address] (test code = 1538) [place] [address] POCT-GLUCOSE [id number] 12:21:00 Test Item Value Reference Range Comments POC-GLUCOSE METER (BEAKER) 255 mg/dL 70-110 TESTE D AT [address] (test code = 1538) [place] [address] BASIC METABOLIC [id number] 06:27:00 Test Item Value Reference Range Comments SODIUM (BEAKER) (test 135 meq/L 136-145 code = 381) POTASSIUM (BEAKER) (test 4.4 meq/L 3.5-5.1 Specime n slightly code = 379) hemolyzed CHLORIDE (BEAKER) (test 99 meq/L 98-107 code = 382) CO2 (BEAKER) (test code = 31 meq/L 22-29 355) BLOOD UREA NITROGEN 59 mg/dL 7-21 (BEAKER) (test code = 354) CREATININE (BEAKER) (test 1.19 mg/dL 0.57-1.25 Specim en slightly code = 358) hemolyzed GLUCOSE RANDOM (BEAKER) 114 mg/dL 70-105 (test code = 652) CALCIUM (BEAKER) (test 8.3 mg/dL 8.4-10.2 code = 697) EGFR (BEAKER) (test code 61 mL/min/1.73 sq m EST IMATED GFR IS NOT = 1092) ACCURATE CREA TININE CLEARANCE IN PRE DICTING GLOMERULAR FILTR ATION RATE. ESTIMATED GFR IS NOT APPLICABLE F OR DIALYSIS PATIENT S. POCT-GLUCOSE [id number] 05:57:00 Test Item Value Reference Range Comments POC-GLUCOSE METER (BEAKER) 131 mg/dL 70-110 TESTE D AT [address] (test code = 1538) [place] [address] POCT-GLUCOSE [id number] 00:03:00 Test Item Value Reference Range Comments POC-GLUCOSE METER (BEAKER) 151 mg/dL 70-110 TESTE D AT [address] (test code = 1538) [place] [address] POCT-GLUCOSE [id number] 17:07:00 Test Item Value Reference Range Comments POC-GLUCOSE METER (BEAKER) 180 mg/dL 70-110 TESTE D AT [address] (test code = 1538) [place] [address] POCT-GLUCOSE [id number] 11:26:00 Test Item Value Reference Range Comments POC-GLUCOSE METER (BEAKER) 172 mg/dL 70-110 TESTE D AT [address] (test code = 1538) [place] [address] POCT-GLUCOSE [id number] 06:29:00 Test Item Value Reference Range Comments POC-GLUCOSE METER (BEAKER) 166 mg/dL 70-110 TESTE D AT [address] (test code = 1538) [place] [address] BASIC METABOLIC [id number] 06:02:00 Test Item Value Reference Range Comments SODIUM (BEAKER) (test 136 meq/L 136-145 code = 381) POTASSIUM (BEAKER) (test 4.5 meq/L 3.5-5.1 Specime n slightly code = 379) hemolyzed CHLORIDE (BEAKER) (test 98 meq/L 98-107 code = 382) CO2 (BEAKER) (test code = 31 meq/L 22-29 355) BLOOD UREA NITROGEN 72 mg/dL 7-21 (BEAKER) (test code = 354) CREATININE (BEAKER) (test 1.25 mg/dL 0.57-1.25 Specim en slightly code = 358) hemolyzed GLUCOSE RANDOM (BEAKER) 117 mg/dL 70-105 (test code = 652) CALCIUM (BEAKER) (test 9.0 mg/dL 8.4-10.2 code = 697) EGFR (BEAKER) (test code 58 mL/min/1.73 sq m EST IMATED GFR IS NOT = 1092) ACCURATE CREA TININE CLEARANCE IN PRE DICTING GLOMERULAR FILTR ATION RATE. ESTIMATED GFR IS NOT APPLICABLE F OR DIALYSIS PATIENT S. POCT-GLUCOSE [id number] 23:57:00 Test Item Value Reference Range Comments POC-GLUCOSE METER (BEAKER) 175 mg/dL 70-110 TESTE D AT [address] (test code = 1538) [place] [address] POCT-GLUCOSE [id number] 18:14:00 Test Item Value Reference Range Comments POC-GLUCOSE METER (BEAKER) 208 mg/dL 70-110 TESTE D AT [address] (test code = 1538) [place] [address] POCT-GLUCOSE [id number] 12:04:00 Test Item Value Reference Range Comments POC-GLUCOSE METER (BEAKER) 184 mg/dL 70-110 TESTE D AT [address] (test code = 1538) [place] [address] BASIC METABOLIC [id number] 07:35:00 Test Item Value Reference Range Comments SODIUM (BEAKER) (test 133 meq/L 136-145 code = 381) POTASSIUM (BEAKER) (test 3.9 meq/L 3.5-5.1 Specime n slightly code = 379) hemolyzed CHLORIDE (BEAKER) (test 95 meq/L 98-107 code = 382) CO2 (BEAKER) (test code = 31 meq/L 22-29 355) BLOOD UREA NITROGEN 59 mg/dL 7-21 (BEAKER) (test code = 354) CREATININE (BEAKER) (test 1.35 mg/dL 0.57-1.25 Specim en slightly code = 358) hemolyzed GLUCOSE RANDOM (BEAKER) 134 mg/dL 70-105 (test code = 652) CALCIUM (BEAKER) (test 8.9 mg/dL 8.4-10.2 code = 697) EGFR (BEAKER) (test code 53 mL/min/1.73 sq m EST IMATED GFR IS NOT = 1092) ACCURATE CREA TININE CLEARANCE IN PRE DICTING GLOMERULAR FILTR ATION RATE. ESTIMATED GFR IS NOT APPLICABLE F OR DIALYSIS PATIENT S. POCT-GLUCOSE [id number] 06:18:00 Test Item Value Reference Range Comments POC-GLUCOSE METER (BEAKER) 176 mg/dL 70-110 TESTE D AT [address] (test code = 1538) [place] [id number] POCT-GLUCOSE [id number] 23:54:00 Test Item Value Reference Range Comments POC-GLUCOSE METER (BEAKER) 137 mg/dL 70-110 TESTE D AT [address] (test code = 1538) [place] [id number] POCT-GLUCOSE [id number] 17:44:00 Test Item Value Reference Range Comments POC-GLUCOSE METER (BEAKER) 205 mg/dL 70-110 TESTE D AT [address] (test code = 1538) [place] [id number] POCT-GLUCOSE [id number] 12:33:00 Test Item Value Reference Range Comments POC-GLUCOSE METER (BEAKER) 199 mg/dL 70-110 TESTE D AT [address] (test code = 1538) [place] [id number]30 POCT-GLUCOSE [id number] 06:23:00 Test Item Value Reference Range Comments POC-GLUCOSE METER (BEAKER) 132 mg/dL 70-110 TESTE D AT [address] (test code = 1538) [place] [id number] BASIC METABOLIC [id number] 06:21:00 Test Item Value Reference Range Comments SODIUM (BEAKER) (test 137 meq/L 136-145 code = 381) POTASSIUM (BEAKER) (test 4.4 meq/L 3.5-5.1 Specime n slightly code = 379) hemolyzed CHLORIDE (BEAKER) (test 99 meq/L 98-107 code = 382) CO2 (BEAKER) (test code = 32 meq/L 22-29 355) BLOOD UREA NITROGEN 47 mg/dL 7-21 (BEAKER) (test code = 354) CREATININE (BEAKER) (test 1.08 mg/dL 0.57-1.25 Specim en slightly code = 358) hemolyzed GLUCOSE RANDOM (BEAKER) 119 mg/dL 70-105 (test code = 652) CALCIUM (BEAKER) (test 8.9 mg/dL 8.4-10.2 code = 697) EGFR (BEAKER) (test code 68 mL/min/1.73 sq m EST IMATED GFR IS NOT = 1092) ACCURATE CREA TININE CLEARANCE IN PRE DICTING GLOMERULAR FILTR ATION RATE. ESTIMATED GFR IS NOT APPLICABLE F OR DIALYSIS PATIENT S. POCT-GLUCOSE [id number] 00:04:00 Test Item Value Reference Range Comments POC-GLUCOSE METER (BEAKER) 145 mg/dL 70-110 TESTE D AT [address] (test code = 1538) [place] [id number] POCT-GLUCOSE [id number] 18:21:00 Test Item Value Reference Range Comments POC-GLUCOSE METER (BEAKER) 156 mg/dL 70-110 TESTE D AT [address] (test code = 1538) [place] [id number] POCT-GLUCOSE [id number] 12:17:00 Test Item Value Reference Range Comments POC-GLUCOSE METER (BEAKER) 231 mg/dL 70-110 TESTE D AT [address] (test code = 1538) [place] [id number]30 POCT-GLUCOSE [id number] 06:42:00 Test Item Value Reference Range Comments POC-GLUCOSE METER (BEAKER) 150 mg/dL 70-110 TESTE D AT [address] (test code = 1538) [place] [id number] BASIC METABOLIC [id number] 06:09:00 Test Item Value Reference Range Comments SODIUM (BEAKER) (test 140 meq/L 136-145 code = 381) POTASSIUM (BEAKER) (test 3.9 meq/L 3.5-5.1 Specime n slightly code = 379) hemolyzed CHLORIDE (BEAKER) (test 98 meq/L 98-107 code = 382) CO2 (BEAKER) (test code = 35 meq/L 22-29 355) BLOOD UREA NITROGEN 60 mg/dL 7-21 (BEAKER) (test code = 354) CREATININE (BEAKER) (test 1.25 mg/dL 0.57-1.25 Specim en slightly code = 358) hemolyzed GLUCOSE RANDOM (BEAKER) 140 mg/dL 70-105 (test code = 652) CALCIUM (BEAKER) (test 9.0 mg/dL 8.4-10.2 code = 697) EGFR (BEAKER) (test code 58 mL/min/1.73 sq m EST IMATED GFR IS NOT = 1092) ACCURATE CREA TININE CLEARANCE IN PRE DICTING GLOMERULAR FILTR ATION RATE. ESTIMATED GFR IS NOT APPLICABLE F OR DIALYSIS PATIENT S. CBC W/PLT COUNT & AUTO [id number] 06:04:00 Test Item Value Reference Range Comments WHITE BLOOD CELL COUNT (BEAKER) (test code = 10.0 K/ L 3.5 -10.5 775) RED BLOOD CELL COUNT (BEAKER) (test code = 761) 4.82 M/ L 4.63-6.08 HEMOGLOBIN (BEAKER) (test code = 410) 13.4 GM/DL 13.7-17.5 HEMATOCRIT (BEAKER) (test code = 411) 43.4 % 40.1-51.0 MEAN CORPUSCULAR VOLUME (BEAKER) (test code = 90.0 fL 79 .0-92.2 753) MEAN CORPUSCULAR HEMOGLOBIN (BEAKER) (test code 27.8 pg 25.7-32.2 = 751) MEAN CORPUSCULAR HEMOGLOBIN CONC (BEAKER) (test 30.9 GM/DL 32.3-36.5 code = 752) RED CELL DISTRIBUTION WIDTH (BEAKER) (test code 14.9 % 11.6-14.4 = 412) PLATELET COUNT (BEAKER) (test code = 756) 312 K/CU MM 150-45 0 MEAN PLATELET VOLUME (BEAKER) (test code = 754) 11.0 fL 9.4-12.4 NEUTROPHILS RELATIVE PERCENT (BEAKER) (test code 78 % = 429) LYMPHOCYTES RELATIVE PERCENT (BEAKER) (test code 14 % = 430) MONOCYTES RELATIVE PERCENT (BEAKER) (test code = 6 % 431) EOSINOPHILS RELATIVE PERCENT (BEAKER) (test code 0 % = 432) BASOPHILS RELATIVE PERCENT (BEAKER) (test code = 0 % 437) NEUTROPHILS ABSOLUTE COUNT (BEAKER) (test code = 7.82 K/ L 1.78-5.38 670) LYMPHOCYTES ABSOLUTE COUNT (BEAKER) (test code = 1.41 K/ L 1.32-3.57 414) MONOCYTES ABSOLUTE COUNT (BEAKER) (test code = 0.58 K/ L 0 .30-0.82 415) EOSINOPHILS ABSOLUTE COUNT (BEAKER) (test code = 0.03 K/ L 0.04-0.54 416) BASOPHILS ABSOLUTE COUNT (BEAKER) (test code = 0.02 K/ L 0 .01-0.08 417) IMMATURE GRANULOCYTES-RELATIVE PERCENT (BEAKER) 1 % 0-1 (test code = 2801) POCT-GLUCOSE [id number] 01:27:00 Test Item Value Reference Range Comments POC-GLUCOSE METER (BEAKER) 160 mg/dL 70-110 TESTE D AT [address] (test code = 1538) [place] [address] POCT-GLUCOSE [id number] 17:36:00 Test Item Value Reference Range Comments POC-GLUCOSE METER (BEAKER) 187 mg/dL 70-110 TESTE D AT [address] (test code = 1538) [place] [address] POCT-GLUCOSE [id number] 12:14:00 Test Item Value Reference Range Comments POC-GLUCOSE METER (BEAKER) 217 mg/dL 70-110 TESTE D AT [address] (test code = 1538) [place] [address] POCT-GLUCOSE [id number] 05:56:00 Test Item Value Reference Range Comments POC-GLUCOSE METER (BEAKER) 130 mg/dL 70-110 TESTE D AT [address] (test code = 1538) [place] [address] POCT-GLUCOSE [id number] 23:14:00 Test Item Value Reference Range Comments POC-GLUCOSE METER (BEAKER) 128 mg/dL 70-110 TESTE D AT [address] (test code = 1538) [place] [address] POCT-GLUCOSE [id number] 17:12:00 Test Item Value Reference Range Comments POC-GLUCOSE METER (BEAKER) 211 mg/dL 70-110 TESTE D AT [address] (test code = 1538) [place] [address] POCT-GLUCOSE [id number] 12:08:00 Test Item Value Reference Range Comments POC-GLUCOSE METER (BEAKER) 216 mg/dL 70-110 TESTE D AT [address] (test code = 1538) [place] [address] POCT-GLUCOSE [id number] 06:07:00 Test Item Value Reference Range Comments POC-GLUCOSE METER (BEAKER) 143 mg/dL 70-110 TESTE D AT [facility] [address] [facility] (test code = 1538) [place] [address] POCT-GLUCOSE [id number] 23:53:00 Test Item Value Reference Range Comments POC-GLUCOSE METER (BEAKER) 148 mg/dL 70-110 TESTE D AT [address] (test code = 1538) [place] [address] POCT-GLUCOSE [id number] 17:29:00 Test Item Value Reference Range Comments POC-GLUCOSE METER (BEAKER) 215 mg/dL 70-110 TESTE D AT [address] (test code = 1538) [place] [address] POCT-GLUCOSE [id number] 12:09:00 Test Item Value Reference Range Comments POC-GLUCOSE METER (BEAKER) 218 mg/dL 70-110 TESTE D AT [address] (test code = 1538) [place] [address] POCT-GLUCOSE [id number] 05:44:00 Test Item Value Reference Range Comments POC-GLUCOSE METER (BEAKER) 143 mg/dL 70-110 TESTE D AT [address] (test code = 1538) [place] [address] [id number] 04:51:00 Test Item Value Reference Range Comments MAGNESIUM (BEAKER) (test code = 2.1 mg/dL 1.6-2.6 Specimen slightly hemolyzed 627) BASIC METABOLIC [id number] 04:51:00 Test Item Value Reference Range Comments SODIUM (BEAKER) (test 135 meq/L 136-145 code = 381) POTASSIUM (BEAKER) (test 4.3 meq/L 3.5-5.1 Specime n slightly code = 379) hemolyzed CHLORIDE (BEAKER) (test 97 meq/L 98-107 code = 382) CO2 (BEAKER) (test code = 30 meq/L 22-29 355) BLOOD UREA NITROGEN 46 mg/dL 7-21 (BEAKER) (test code = 354) CREATININE (BEAKER) (test 1.22 mg/dL 0.57-1.25 Specim en slightly code = 358) hemolyzed GLUCOSE RANDOM (BEAKER) 150 mg/dL 70-105 (test code = 652) CALCIUM (BEAKER) (test 8.7 mg/dL 8.4-10.2 code = 697) EGFR (BEAKER) (test code 59 mL/min/1.73 sq m EST IMATED GFR IS NOT = 1092) ACCURATE CREA TININE CLEARANCE IN PRE DICTING GLOMERULAR FILTR ATION RATE. ESTIMATED GFR IS NOT APPLICABLE F OR DIALYSIS PATIENT S. CBC W/PLT COUNT & AUTO [id number] 04:31:00 Test Item Value Reference Range Comments WHITE BLOOD CELL COUNT (BEAKER) (test code = 12.5 K/ L 3.5 -10.5 775) RED BLOOD CELL COUNT (BEAKER) (test code = 761) 4.83 M/ L 4.63-6.08 HEMOGLOBIN (BEAKER) (test code = 410) 13.5 GM/DL 13.7-17.5 HEMATOCRIT (BEAKER) (test code = 411) 41.7 % 40.1-51.0 MEAN CORPUSCULAR VOLUME (BEAKER) (test code = 86.3 fL 79 .0-92.2 753) MEAN CORPUSCULAR HEMOGLOBIN (BEAKER) (test code 28.0 pg 25.7-32.2 = 751) MEAN CORPUSCULAR HEMOGLOBIN CONC (BEAKER) (test 32.4 GM/DL 32.3-36.5 code = 752) RED CELL DISTRIBUTION WIDTH (BEAKER) (test code 14.7 % 11.6-14.4 = 412) PLATELET COUNT (BEAKER) (test code = 756) 328 K/CU MM 150-45 0 MEAN PLATELET VOLUME (BEAKER) (test code = 754) 10.7 fL 9.4-12.4 NEUTROPHILS RELATIVE PERCENT (BEAKER) (test code 77 % = 429) LYMPHOCYTES RELATIVE PERCENT (BEAKER) (test code 14 % = 430) MONOCYTES RELATIVE PERCENT (BEAKER) (test code = 7 % 431) EOSINOPHILS RELATIVE PERCENT (BEAKER) (test code 1 % = 432) BASOPHILS RELATIVE PERCENT (BEAKER) (test code = 0 % 437) NEUTROPHILS ABSOLUTE COUNT (BEAKER) (test code = 9.56 K/ L 1.78-5.38 670) LYMPHOCYTES ABSOLUTE COUNT (BEAKER) (test code = 1.69 K/ L 1.32-3.57 414) MONOCYTES ABSOLUTE COUNT (BEAKER) (test code = 0.90 K/ L 0 .30-0.82 415) EOSINOPHILS ABSOLUTE COUNT (BEAKER) (test code = 0.07 K/ L 0.04-0.54 416) BASOPHILS ABSOLUTE COUNT (BEAKER) (test code = 0.03 K/ L 0 .01-0.08 417) IMMATURE GRANULOCYTES-RELATIVE PERCENT (BEAKER) 2 % 0-1 (test code = 2801) POCT-GLUCOSE [id number] 23:29:00 Test Item Value Reference Range Comments POC-GLUCOSE METER (BEAKER) 146 mg/dL 70-110 TESTE D AT [address] (test code = 1538) [place] [address] POCT-GLUCOSE [id number] 13:33:00 Test Item Value Reference Range Comments POC-GLUCOSE METER (BEAKER) 184 mg/dL 70-110 TESTE D AT [address] (test code = 1538) [place] [address] POCT-GLUCOSE [id number] 10:30:00 Test Item Value Reference Range Comments POC-GLUCOSE METER (BEAKER) 147 mg/dL 70-110 TESTE D AT [address] (test code = 1538) [place] [address] POCT-GLUCOSE [id number] 09:23:00 Test Item Value Reference Range Comments POC-GLUCOSE METER (BEAKER) 158 mg/dL 70-110 TESTE D AT [address] (test code = 1538) [place] [address] [id number] 07:59:00 Test Item Value Reference Range Comments PHOSPHORUS (BEAKER) (test code = 604) 4.0 mg/dL 2.3-4.7 [id number] 07:59:00 Test Item Value Reference Range Comments MAGNESIUM (BEAKER) (test code = 627) 2.2 mg/dL 1.6-2.6 BASIC METABOLIC [id number] 07:59:00 Test Item Value Reference Range Comments SODIUM (BEAKER) (test 137 meq/L 136-145 code = 381) POTASSIUM (BEAKER) (test 4.2 meq/L 3.5-5.1 code = 379) CHLORIDE (BEAKER) (test 98 meq/L 98-107 code = 382) CO2 (BEAKER) (test code = 29 meq/L 22-29 355) BLOOD UREA NITROGEN 48 mg/dL 7-21 (BEAKER) (test code = 354) CREATININE (BEAKER) (test 1.16 mg/dL 0.57-1.25 code = 358) GLUCOSE RANDOM (BEAKER) 150 mg/dL 70-105 (test code = 652) CALCIUM (BEAKER) (test 9.5 mg/dL 8.4-10.2 code = 697) EGFR (BEAKER) (test code 63 mL/min/1.73 sq m EST IMATED GFR IS NOT = 1092) ACCURATE CREA TININE CLEARANCE IN PRE DICTING GLOMERULAR FILTR ATION RATE. ESTIMATED GFR IS NOT APPLICABLE F OR DIALYSIS PATIENT S. CBC W/PLT COUNT & AUTO [id number] 05:58:00 Test Item Value Reference Range Comments WHITE BLOOD CELL COUNT (BEAKER) (test code = 11.6 K/ L 3.5 -10.5 775) RED BLOOD CELL COUNT (BEAKER) (test code = 761) 4.84 M/ L 4.63-6.08 HEMOGLOBIN (BEAKER) (test code = 410) 13.4 GM/DL 13.7-17.5 HEMATOCRIT (BEAKER) (test code = 411) 43.0 % 40.1-51.0 MEAN CORPUSCULAR VOLUME (BEAKER) (test code = 88.8 fL 79 .0-92.2 753) MEAN CORPUSCULAR HEMOGLOBIN (BEAKER) (test code 27.7 pg 25.7-32.2 = 751) MEAN CORPUSCULAR HEMOGLOBIN CONC (BEAKER) (test 31.2 GM/DL 32.3-36.5 code = 752) RED CELL DISTRIBUTION WIDTH (BEAKER) (test code 14.6 % 11.6-14.4 = 412) PLATELET COUNT (BEAKER) (test code = 756) 311 K/CU MM 150-45 0 MEAN PLATELET VOLUME (BEAKER) (test code = 754) 10.8 fL 9.4-12.4 NUCLEATED RED BLOOD CELLS (BEAKER) (test code = 0 /100 WBC 0-0 413) NEUTROPHILS RELATIVE PERCENT (BEAKER) (test code 74 % = 429) LYMPHOCYTES RELATIVE PERCENT (BEAKER) (test code 16 % = 430) MONOCYTES RELATIVE PERCENT (BEAKER) (test code = 7 % 431) EOSINOPHILS RELATIVE PERCENT (BEAKER) (test code 1 % = 432) BASOPHILS RELATIVE PERCENT (BEAKER) (test code = 0 % 437) NEUTROPHILS ABSOLUTE COUNT (BEAKER) (test code = 8.54 K/ L 1.78-5.38 670) LYMPHOCYTES ABSOLUTE COUNT (BEAKER) (test code = 1.84 K/ L 1.32-3.57 414) MONOCYTES ABSOLUTE COUNT (BEAKER) (test code = 0.82 K/ L 0 .30-0.82 415) EOSINOPHILS ABSOLUTE COUNT (BEAKER) (test code = 0.12 K/ L 0.04-0.54 416) BASOPHILS ABSOLUTE COUNT (BEAKER) (test code = 0.05 K/ L 0 .01-0.08 417) IMMATURE GRANULOCYTES-RELATIVE PERCENT (BEAKER) 2 % 0-1 (test code = 2801) POCT-GLUCOSE [id number] 17:11:00 Test Item Value Reference Range Comments POC-GLUCOSE METER (BEAKER) 227 mg/dL 70-110 TESTE D AT [address] (test code = 1538) [place] [address] POCT-GLUCOSE [id number] 12:39:00 Test Item Value Reference Range Comments POC-GLUCOSE METER (BEAKER) 215 mg/dL 70-110 TESTE D AT [address] (test code = 1538) [place] [address] POCT-GLUCOSE [id number] 05:30:00 Test Item Value Reference Range Comments POC-GLUCOSE METER (BEAKER) 151 mg/dL 70-110 TESTE D AT [address] (test code = 1538) [place] [address] [id number] 03:57:00 Test Item Value Reference Range Comments PHOSPHORUS (BEAKER) (test code = 604) 4.0 mg/dL 2.3-4.7 [id number] 03:57:00 Test Item Value Reference Range Comments MAGNESIUM (BEAKER) (test code = 627) 2.2 mg/dL 1.6-2.6 BASIC METABOLIC [id number] 03:57:00 Test Item Value Reference Range Comments SODIUM (BEAKER) (test 137 meq/L 136-145 code = 381) POTASSIUM (BEAKER) (test 4.4 meq/L 3.5-5.1 code = 379) CHLORIDE (BEAKER) (test 99 meq/L 98-107 code = 382) CO2 (BEAKER) (test code = 27 meq/L 22-29 355) BLOOD UREA NITROGEN 46 mg/dL 7-21 (BEAKER) (test code = 354) CREATININE (BEAKER) (test 1.12 mg/dL 0.57-1.25 code = 358) GLUCOSE RANDOM (BEAKER) 171 mg/dL 70-105 (test code = 652) CALCIUM (BEAKER) (test 9.5 mg/dL 8.4-10.2 code = 697) EGFR (BEAKER) (test code 65 mL/min/1.73 sq m EST IMATED GFR IS NOT = 1092) ACCURATE CREA TININE CLEARANCE IN PRE DICTING GLOMERULAR FILTR ATION RATE. ESTIMATED GFR IS NOT APPLICABLE F OR DIALYSIS PATIENT S. [id number] 03:47:00 Test Item Value Reference Range Comments PARTIAL THROMBOPLASTIN TIME (BEAKER) (test code 36.2 seconds 22.5-36.0 = 760) CBC W/PLT COUNT & AUTO [id number] 03:42:00 Test Item Value Reference Range Comments WHITE BLOOD CELL COUNT (BEAKER) (test code = 13.2 K/ L 3.5 -10.5 775) RED BLOOD CELL COUNT (BEAKER) (test code = 761) 4.98 M/ L 4.63-6.08 HEMOGLOBIN (BEAKER) (test code = 410) 13.7 GM/DL 13.7-17.5 HEMATOCRIT (BEAKER) (test code = 411) 43.5 % 40.1-51.0 MEAN CORPUSCULAR VOLUME (BEAKER) (test code = 87.3 fL 79 .0-92.2 753) MEAN CORPUSCULAR HEMOGLOBIN (BEAKER) (test code 27.5 pg 25.7-32.2 = 751) MEAN CORPUSCULAR HEMOGLOBIN CONC (BEAKER) (test 31.5 GM/DL 32.3-36.5 code = 752) RED CELL DISTRIBUTION WIDTH (BEAKER) (test code 14.7 % 11.6-14.4 = 412) PLATELET COUNT (BEAKER) (test code = 756) 326 K/CU MM 150-45 0 MEAN PLATELET VOLUME (BEAKER) (test code = 754) 10.7 fL 9.4-12.4 NUCLEATED RED BLOOD CELLS (BEAKER) (test code = 0 /100 WBC 0-0 413) NEUTROPHILS RELATIVE PERCENT (BEAKER) (test code 80 % = 429) LYMPHOCYTES RELATIVE PERCENT (BEAKER) (test code 11 % = 430) MONOCYTES RELATIVE PERCENT (BEAKER) (test code = 7 % 431) EOSINOPHILS RELATIVE PERCENT (BEAKER) (test code 0 % = 432) BASOPHILS RELATIVE PERCENT (BEAKER) (test code = 0 % 437) NEUTROPHILS ABSOLUTE COUNT (BEAKER) (test code = 10.53 K/ L 1.78-5.38 670) LYMPHOCYTES ABSOLUTE COUNT (BEAKER) (test code = 1.49 K/ L 1.32-3.57 414) MONOCYTES ABSOLUTE COUNT (BEAKER) (test code = 0.92 K/ L 0 .30-0.82 415) EOSINOPHILS ABSOLUTE COUNT (BEAKER) (test code = 0.04 K/ L 0.04-0.54 416) BASOPHILS ABSOLUTE COUNT (BEAKER) (test code = 0.04 K/ L 0 .01-0.08 417) IMMATURE GRANULOCYTES-RELATIVE PERCENT (BEAKER) 1 % 0-1 (test code = 2801) POCT-GLUCOSE [id number] 23:32:00 Test Item Value Reference Range Comments POC-GLUCOSE METER (BEAKER) 165 mg/dL 70-110 TESTE D AT [address] (test code = 1538) [place] [address] [id number] 20:47:00 Test Item Value Reference Range Comments PARTIAL THROMBOPLASTIN TIME (BEAKER) (test code 30.9 seconds 22.5-36.0 = 760) POCT-GLUCOSE [id number] 17:48:00 Test Item Value Reference Range Comments POC-GLUCOSE METER (BEAKER) 233 mg/dL 70-110 TESTE D AT [address] (test code = 1538) [place] [address] POCT-GLUCOSE [id number] 12:37:00 Test Item Value Reference Range Comments POC-GLUCOSE METER (BEAKER) 167 mg/dL 70-110 TESTE D AT [place] [id number] (test code = 1538) [facility] [address] POCT-GLUCOSE [id number] 07:22:00 Test Item Value Reference Range Comments POC-GLUCOSE METER (BEAKER) 139 mg/dL 70-110 TESTE D AT [facility] [address] (test code = 1538) [facility] [address] [id number] 04:10:00 Test Item Value Reference Range Comments PHOSPHORUS (BEAKER) (test code = 604) 4.5 mg/dL 2.3-4.7 [id number] 04:10:00 Test Item Value Reference Range Comments MAGNESIUM (BEAKER) (test code = 627) 2.2 mg/dL 1.6-2.6 BASIC METABOLIC [id number] 04:10:00 Test Item Value Reference Range Comments SODIUM (BEAKER) (test 140 meq/L 136-145 code = 381) POTASSIUM (BEAKER) (test 4.4 meq/L 3.5-5.1 code = 379) CHLORIDE (BEAKER) (test 99 meq/L 98-107 code = 382) CO2 (BEAKER) (test code = 30 meq/L 22-29 355) BLOOD UREA NITROGEN 43 mg/dL 7-21 (BEAKER) (test code = 354) CREATININE (BEAKER) (test 1.13 mg/dL 0.57-1.25 code = 358) GLUCOSE RANDOM (BEAKER) 141 mg/dL 70-105 (test code = 652) CALCIUM (BEAKER) (test 9.8 mg/dL 8.4-10.2 code = 697) EGFR (BEAKER) (test code 65 mL/min/1.73 sq m EST IMATED GFR IS NOT = 1092) ACCURATE CREA TININE CLEARANCE IN PRE DICTING GLOMERULAR FILTR ATION RATE. ESTIMATED GFR IS NOT APPLICABLE F OR DIALYSIS PATIENT S. CBC W/PLT COUNT & AUTO [id number] 03:50:00 Test Item Value Reference Range Comments WHITE BLOOD CELL COUNT (BEAKER) (test code = 13.0 K/ L 3.5 -10.5 775) RED BLOOD CELL COUNT (BEAKER) (test code = 761) 4.87 M/ L 4.63-6.08 HEMOGLOBIN (BEAKER) (test code = 410) 13.6 GM/DL 13.7-17.5 HEMATOCRIT (BEAKER) (test code = 411) 42.8 % 40.1-51.0 MEAN CORPUSCULAR VOLUME (BEAKER) (test code = 87.9 fL 79 .0-92.2 753) MEAN CORPUSCULAR HEMOGLOBIN (BEAKER) (test code 27.9 pg 25.7-32.2 = 751) MEAN CORPUSCULAR HEMOGLOBIN CONC (BEAKER) (test 31.8 GM/DL 32.3-36.5 code = 752) RED CELL DISTRIBUTION WIDTH (BEAKER) (test code 14.9 % 11.6-14.4 = 412) PLATELET COUNT (BEAKER) (test code = 756) 364 K/CU MM 150-45 0 MEAN PLATELET VOLUME (BEAKER) (test code = 754) 10.9 fL 9.4-12.4 NUCLEATED RED BLOOD CELLS (BEAKER) (test code = 0 /100 WBC 0-0 413) NEUTROPHILS RELATIVE PERCENT (BEAKER) (test code 77 % = 429) LYMPHOCYTES RELATIVE PERCENT (BEAKER) (test code 13 % = 430) MONOCYTES RELATIVE PERCENT (BEAKER) (test code = 7 % 431) EOSINOPHILS RELATIVE PERCENT (BEAKER) (test code 1 % = 432) BASOPHILS RELATIVE PERCENT (BEAKER) (test code = 0 % 437) NEUTROPHILS ABSOLUTE COUNT (BEAKER) (test code = 10.07 K/ L 1.78-5.38 670) LYMPHOCYTES ABSOLUTE COUNT (BEAKER) (test code = 1.71 K/ L 1.32-3.57 414) MONOCYTES ABSOLUTE COUNT (BEAKER) (test code = 0.96 K/ L 0 .30-0.82 415) EOSINOPHILS ABSOLUTE COUNT (BEAKER) (test code = 0.10 K/ L 0.04-0.54 416) BASOPHILS ABSOLUTE COUNT (BEAKER) (test code = 0.05 K/ L 0 .01-0.08 417) IMMATURE GRANULOCYTES-RELATIVE PERCENT (BEAKER) 1 % 0-1 (test code = 2801) POCT-GLUCOSE [id number] 03:50:00 Test Item Value Reference Range Comments POC-GLUCOSE METER (BEAKER) 170 mg/dL 70-110 TESTE D AT [facility] [address] [facility] [place] (test code = 1538) [place] [address] [id number] 00:16:00 Test Item Value Reference Range Comments PARTIAL THROMBOPLASTIN TIME (BEAKER) (test code 31.8 seconds 22.5-36.0 = 760) 6 hours after starting heparin infusion and as indicated per sliding scaleFL, ESOPH, SWALLOW FUNCTION, WITH CINE OR [id number] 18:01:00Reason for exam:->CVAFINAL REPORT Modified barium swallow exam with speech pathology service CLINICAL HISTORY: CVA IMPRESSION: Please see the speech pathology service report for details. Barium contrast of multiple consistencies is given to the patient to swallow. Fluoroscopic observation is performed during swallowing. There is aspiration with all liquids. Fluoro time: 1.2 minutes Number of images: 4 Signed: Francy Chanel Verified Date/Time: 09/19/2018 18:01:02 Reading Location: [address] Ortho Consult Reading Room POCT-GLUCOSE [id number] 17:20:00 Test Item Value Reference Range Comments POC-GLUCOSE METER (BEAKER) 265 mg/dL 70-110 TESTE D AT [address] (test code = 1538) [place] [address] [id number] 16:49:00 Test Item Value Reference Range Comments PARTIAL THROMBOPLASTIN TIME (BEAKER) (test code 29.3 seconds 22.5-36.0 = 760) Prior to initiating heparinCBC W/PLT COUNT & AUTO [id number] 16:45:00 Test Item Value Reference Range Comments WHITE BLOOD CELL COUNT (BEAKER) (test code = 12.4 K/ L 3.5 -10.5 775) RED BLOOD CELL COUNT (BEAKER) (test code = 761) 4.72 M/ L 4.63-6.08 HEMOGLOBIN (BEAKER) (test code = 410) 13.3 GM/DL 13.7-17.5 HEMATOCRIT (BEAKER) (test code = 411) 41.3 % 40.1-51.0 MEAN CORPUSCULAR VOLUME (BEAKER) (test code = 87.5 fL 79 .0-92.2 753) MEAN CORPUSCULAR HEMOGLOBIN (BEAKER) (test code 28.2 pg 25.7-32.2 = 751) MEAN CORPUSCULAR HEMOGLOBIN CONC (BEAKER) (test 32.2 GM/DL 32.3-36.5 code = 752) RED CELL DISTRIBUTION WIDTH (BEAKER) (test code 15.1 % 11.6-14.4 = 412) PLATELET COUNT (BEAKER) (test code = 756) 309 K/CU MM 150-45 0 MEAN PLATELET VOLUME (BEAKER) (test code = 754) 10.7 fL 9.4-12.4 NUCLEATED RED BLOOD CELLS (BEAKER) (test code = 0 /100 WBC 0-0 413) NEUTROPHILS RELATIVE PERCENT (BEAKER) (test code 92 % = 429) LYMPHOCYTES RELATIVE PERCENT (BEAKER) (test code 4 % = 430) MONOCYTES RELATIVE PERCENT (BEAKER) (test code = 3 % 431) EOSINOPHILS RELATIVE PERCENT (BEAKER) (test code 0 % = 432) BASOPHILS RELATIVE PERCENT (BEAKER) (test code = 0 % 437) NEUTROPHILS ABSOLUTE COUNT (BEAKER) (test code = 11.36 K/ L 1.78-5.38 670) LYMPHOCYTES ABSOLUTE COUNT (BEAKER) (test code = 0.52 K/ L 1.32-3.57 414) MONOCYTES ABSOLUTE COUNT (BEAKER) (test code = 0.38 K/ L 0 .30-0.82 415) EOSINOPHILS ABSOLUTE COUNT (BEAKER) (test code = 0.02 K/ L 0.04-0.54 416) BASOPHILS ABSOLUTE COUNT (BEAKER) (test code = 0.03 K/ L 0 .01-0.08 417) IMMATURE GRANULOCYTES-RELATIVE PERCENT (BEAKER) 1 % 0-1 (test code = 2801) POCT-GLUCOSE [id number] 15:03:00 Test Item Value Reference Range Comments POC-GLUCOSE METER (BEAKER) 261 mg/dL 70-110 TESTE D AT [address] (test code = 1538) [place] [id number] POCT-GLUCOSE [id number] 08:35:00 Test Item Value Reference Range Comments POC-GLUCOSE METER (BEAKER) 266 mg/dL 70-110 TESTE D AT [address] (test code = 1538) [place] [id number] [id number] 07:15:00 Test Item Value Reference Range Comments PHOSPHORUS (BEAKER) (test code = 604) 4.5 mg/dL 2.3-4.7 [id number] 07:15:00 Test Item Value Reference Range Comments MAGNESIUM (BEAKER) (test code = 627) 2.2 mg/dL 1.6-2.6 BASIC METABOLIC [id number] 07:15:00 Test Item Value Reference Range Comments SODIUM (BEAKER) (test 143 meq/L 136-145 code = 381) POTASSIUM (BEAKER) (test 4.4 meq/L 3.5-5.1 code = 379) CHLORIDE (BEAKER) (test 101 meq/L 98-107 code = 382) CO2 (BEAKER) (test code = 31 meq/L 22-29 355) BLOOD UREA NITROGEN 42 mg/dL 7-21 (BEAKER) (test code = 354) CREATININE (BEAKER) (test 1.19 mg/dL 0.57-1.25 code = 358) GLUCOSE RANDOM (BEAKER) 173 mg/dL 70-105 (test code = 652) CALCIUM (BEAKER) (test 9.9 mg/dL 8.4-10.2 code = 697) EGFR (BEAKER) (test code 61 mL/min/1.73 sq m EST IMATED GFR IS NOT = 1092) ACCURATE CREA TININE CLEARANCE IN PRE DICTING GLOMERULAR FILTR ATION RATE. ESTIMATED GFR IS NOT APPLICABLE F OR DIALYSIS PATIENT S. CBC W/PLT COUNT & AUTO [id number] 06:58:00 Test Item Value Reference Range Comments WHITE BLOOD CELL COUNT (BEAKER) (test code = 12.2 K/ L 3.5 -10.5 775) RED BLOOD CELL COUNT (BEAKER) (test code = 761) 5.12 M/ L 4.63-6.08 HEMOGLOBIN (BEAKER) (test code = 410) 14.2 GM/DL 13.7-17.5 HEMATOCRIT (BEAKER) (test code = 411) 45.9 % 40.1-51.0 MEAN CORPUSCULAR VOLUME (BEAKER) (test code = 89.6 fL 79 .0-92.2 753) MEAN CORPUSCULAR HEMOGLOBIN (BEAKER) (test code 27.7 pg 25.7-32.2 = 751) MEAN CORPUSCULAR HEMOGLOBIN CONC (BEAKER) (test 30.9 GM/DL 32.3-36.5 code = 752) RED CELL DISTRIBUTION WIDTH (BEAKER) (test code 15.1 % 11.6-14.4 = 412) PLATELET COUNT (BEAKER) (test code = 756) 311 K/CU MM 150-45 0 MEAN PLATELET VOLUME (BEAKER) (test code = 754) 11.0 fL 9.4-12.4 NUCLEATED RED BLOOD CELLS (BEAKER) (test code = 0 /100 WBC 0-0 413) NEUTROPHILS RELATIVE PERCENT (BEAKER) (test code 81 % = 429) LYMPHOCYTES RELATIVE PERCENT (BEAKER) (test code 10 % = 430) MONOCYTES RELATIVE PERCENT (BEAKER) (test code = 7 % 431) EOSINOPHILS RELATIVE PERCENT (BEAKER) (test code 1 % = 432) BASOPHILS RELATIVE PERCENT (BEAKER) (test code = 0 % 437) NEUTROPHILS ABSOLUTE COUNT (BEAKER) (test code = 9.83 K/ L 1.78-5.38 670) LYMPHOCYTES ABSOLUTE COUNT (BEAKER) (test code = 1.26 K/ L 1.32-3.57 414) MONOCYTES ABSOLUTE COUNT (BEAKER) (test code = 0.90 K/ L 0 .30-0.82 415) EOSINOPHILS ABSOLUTE COUNT (BEAKER) (test code = 0.11 K/ L 0.04-0.54 416) BASOPHILS ABSOLUTE COUNT (BEAKER) (test code = 0.03 K/ L 0 .01-0.08 417) IMMATURE GRANULOCYTES-RELATIVE PERCENT (BEAKER) 1 % 0-1 (test code = 2801) POCT-GLUCOSE [id number] 23:26:00 Test Item Value Reference Range Comments POC-GLUCOSE METER (BEAKER) 190 mg/dL 70-110 TESTE D AT [facility] [address] [facility] (test code = 1538) [place] [address] POCT-GLUCOSE [id number] 06:41:00 Test Item Value Reference Range Comments POC-GLUCOSE METER (BEAKER) 158 mg/dL 70-110 TESTE D AT [facility] [address] [facility] (test code = 1538) [place] [address] [id number] 04:33:00 Test Item Value Reference Range Comments PHOSPHORUS (BEAKER) (test code = 604) 4.8 mg/dL 2.3-4.7 [id number] 04:33:00 Test Item Value Reference Range Comments MAGNESIUM (BEAKER) (test code = 627) 2.1 mg/dL 1.6-2.6 BASIC METABOLIC [id number] 04:33:00 Test Item Value Reference Range Comments SODIUM (BEAKER) (test 139 meq/L 136-145 code = 381) POTASSIUM (BEAKER) (test 4.2 meq/L 3.5-5.1 code = 379) CHLORIDE (BEAKER) (test 99 meq/L 98-107 code = 382) CO2 (BEAKER) (test code = 28 meq/L 22-29 355) BLOOD UREA NITROGEN 32 mg/dL 7-21 (BEAKER) (test code = 354) CREATININE (BEAKER) (test 1.24 mg/dL 0.57-1.25 code = 358) GLUCOSE RANDOM (BEAKER) 190 mg/dL 70-105 (test code = 652) CALCIUM (BEAKER) (test 9.7 mg/dL 8.4-10.2 code = 697) EGFR (BEAKER) (test code 58 mL/min/1.73 sq m EST IMATED GFR IS NOT = 1092) ACCURATE CREA TININE CLEARANCE IN PRE DICTING GLOMERULAR FILTR ATION RATE. ESTIMATED GFR IS NOT APPLICABLE F OR DIALYSIS PATIENT S. CBC W/PLT COUNT & AUTO [id number] 04:14:00 Test Item Value Reference Range Comments WHITE BLOOD CELL COUNT (BEAKER) (test code = 10.9 K/ L 3.5 -10.5 775) RED BLOOD CELL COUNT (BEAKER) (test code = 761) 4.53 M/ L 4.63-6.08 HEMOGLOBIN (BEAKER) (test code = 410) 13.0 GM/DL 13.7-17.5 HEMATOCRIT (BEAKER) (test code = 411) 39.5 % 40.1-51.0 MEAN CORPUSCULAR VOLUME (BEAKER) (test code = 87.2 fL 79 .0-92.2 753) MEAN CORPUSCULAR HEMOGLOBIN (BEAKER) (test code 28.7 pg 25.7-32.2 = 751) MEAN CORPUSCULAR HEMOGLOBIN CONC (BEAKER) (test 32.9 GM/DL 32.3-36.5 code = 752) RED CELL DISTRIBUTION WIDTH (BEAKER) (test code 15.1 % 11.6-14.4 = 412) PLATELET COUNT (BEAKER) (test code = 756) 252 K/CU MM 150-45 0 MEAN PLATELET VOLUME (BEAKER) (test code = 754) 10.5 fL 9.4-12.4 NUCLEATED RED BLOOD CELLS (BEAKER) (test code = 0 /100 WBC 0-0 413) NEUTROPHILS RELATIVE PERCENT (BEAKER) (test code 84 % = 429) LYMPHOCYTES RELATIVE PERCENT (BEAKER) (test code 8 % = 430) MONOCYTES RELATIVE PERCENT (BEAKER) (test code = 7 % 431) EOSINOPHILS RELATIVE PERCENT (BEAKER) (test code 0 % = 432) BASOPHILS RELATIVE PERCENT (BEAKER) (test code = 0 % 437) NEUTROPHILS ABSOLUTE COUNT (BEAKER) (test code = 9.08 K/ L 1.78-5.38 670) LYMPHOCYTES ABSOLUTE COUNT (BEAKER) (test code = 0.86 K/ L 1.32-3.57 414) MONOCYTES ABSOLUTE COUNT (BEAKER) (test code = 0.80 K/ L 0 .30-0.82 415) EOSINOPHILS ABSOLUTE COUNT (BEAKER) (test code = 0.02 K/ L 0.04-0.54 416) BASOPHILS ABSOLUTE COUNT (BEAKER) (test code = 0.02 K/ L 0 .01-0.08 417) IMMATURE GRANULOCYTES-RELATIVE PERCENT (BEAKER) 1 % 0-1 (test code = 2801) POCT-GLUCOSE [id number] 00:24:00 Test Item Value Reference Range Comments POC-GLUCOSE METER (BEAKER) 216 mg/dL 70-110 TESTE D AT [address] (test code = 1538) [place] [address] POCT-GLUCOSE [id number] 20:48:00 Test Item Value Reference Range Comments POC-GLUCOSE METER (BEAKER) 276 mg/dL 70-110 TESTE D AT [address] (test code = 1538) [place] [address] POCT-GLUCOSE [id number] 11:39:00 Test Item Value Reference Range Comments POC-GLUCOSE METER (BEAKER) 188 mg/dL 70-110 [address] (test code = 1538) [place] [address] RAD, ABDOMEN/KUB, 1 VIEW [id number] 09:12:00Reason for exam:->Ng tubeFINAL REPORT Abdomen , one view History: Nasogastric tube Comparison:none Findings:Nonobstructive bowel gas pattern. No pneumoperitoneum. Nasogastric tube terminates within the stomach. No definite bowel pneumatosis or portal venous gas. Impression:Nasogastric tube terminates within the stomach. Signed: Jason Msitry MDReport Verified Date/Time: 09/17/2018 09:12:57 Reading Location: [place] [id number] Ortho Consult Reading Room PHOSPHORUS 2018-09-17 07:40:00 Test Item Value Reference Range Comments PHOSPHORUS (BEAKER) (test code = 604) 3.9 mg/dL 2.3-4.7 [id number] 07:40:00 Test Item Value Reference Range Comments MAGNESIUM (BEAKER) (test code = 627) 1.8 mg/dL 1.6-2.6 BASIC METABOLIC [id number] 07:40:00 Test Item Value Reference Range Comments SODIUM (BEAKER) (test 140 meq/L 136-145 code = 381) POTASSIUM (BEAKER) (test 3.9 meq/L 3.5-5.1 code = 379) CHLORIDE (BEAKER) (test 101 meq/L 98-107 code = 382) CO2 (BEAKER) (test code = 28 meq/L 22-29 355) BLOOD UREA NITROGEN 23 mg/dL 7-21 (BEAKER) (test code = 354) CREATININE (BEAKER) (test 1.12 mg/dL 0.57-1.25 code = 358) GLUCOSE RANDOM (BEAKER) 168 mg/dL 70-105 (test code = 652) CALCIUM (BEAKER) (test 9.2 mg/dL 8.4-10.2 code = 697) EGFR (BEAKER) (test code 65 mL/min/1.73 sq m EST IMATED GFR IS NOT = 1092) ACCURATE CREA TININE CLEARANCE IN PRE DICTING GLOMERULAR FILTR ATION RATE. ESTIMATED GFR IS NOT APPLICABLE F OR DIALYSIS PATIENT S. CBC W/PLT COUNT & AUTO [id number] 07:27:00 Test Item Value Reference Range Comments WHITE BLOOD CELL COUNT (BEAKER) (test code = 8.9 K/ L 3.5 -10.5 775) RED BLOOD CELL COUNT (BEAKER) (test code = 761) 4.22 M/ L 4.63-6.08 HEMOGLOBIN (BEAKER) (test code = 410) 12.1 GM/DL 13.7-17.5 HEMATOCRIT (BEAKER) (test code = 411) 37.3 % 40.1-51.0 MEAN CORPUSCULAR VOLUME (BEAKER) (test code = 88.4 fL 79 .0-92.2 753) MEAN CORPUSCULAR HEMOGLOBIN (BEAKER) (test code 28.7 pg 25.7-32.2 = 751) MEAN CORPUSCULAR HEMOGLOBIN CONC (BEAKER) (test 32.4 GM/DL 32.3-36.5 code = 752) RED CELL DISTRIBUTION WIDTH (BEAKER) (test code 15.3 % 11.6-14.4 = 412) PLATELET COUNT (BEAKER) (test code = 756) 221 K/CU MM 150-45 0 MEAN PLATELET VOLUME (BEAKER) (test code = 754) 10.3 fL 9.4-12.4 NUCLEATED RED BLOOD CELLS (BEAKER) (test code = 0 /100 WBC 0-0 413) NEUTROPHILS RELATIVE PERCENT (BEAKER) (test code 82 % = 429) LYMPHOCYTES RELATIVE PERCENT (BEAKER) (test code 9 % = 430) MONOCYTES RELATIVE PERCENT (BEAKER) (test code = 7 % 431) EOSINOPHILS RELATIVE PERCENT (BEAKER) (test code 2 % = 432) BASOPHILS RELATIVE PERCENT (BEAKER) (test code = 0 % 437) NEUTROPHILS ABSOLUTE COUNT (BEAKER) (test code = 7.32 K/ L 1.78-5.38 670) LYMPHOCYTES ABSOLUTE COUNT (BEAKER) (test code = 0.78 K/ L 1.32-3.57 414) MONOCYTES ABSOLUTE COUNT (BEAKER) (test code = 0.59 K/ L 0 .30-0.82 415) EOSINOPHILS ABSOLUTE COUNT (BEAKER) (test code = 0.16 K/ L 0.04-0.54 416) BASOPHILS ABSOLUTE COUNT (BEAKER) (test code = 0.03 K/ L 0 .01-0.08 417) IMMATURE GRANULOCYTES-RELATIVE PERCENT (BEAKER) 0 % 0-1 (test code = 2801) POCT-GLUCOSE [id number] 06:48:00 Test Item Value Reference Range Comments POC-GLUCOSE METER (BEAKER) 160 mg/dL 70-110 TESTE D AT [facility] [address] [place] (test code = 1538) [place] [address] POCT-GLUCOSE [id number] 00:56:00 Test Item Value Reference Range Comments POC-GLUCOSE METER (BEAKER) 169 mg/dL 70-110 TESTE D AT [facility] [address] [facility] (test code = 1538) [place] [address] NV, ANGIOGRAM, [id number] 17:55:00Reason for exam:->strokeFINAL REPORT DATE: 09/14/2018 ATTENDING: Haroon Phan MD EMPLOYEE RELATIONS ADMINISTRATOR: PREOPERATIVE DIAGNOSIS: Acute right middle cerebral artery Stroke, Large Vessel Intracranial Occlusion POSTOPERATIVE DIAGNOSIS: Acute right middle cerebral artery Stroke, Large Vessel Intracranial Occlusion PROCEDURE PERFORMED: 1. Diagnostic Angiogram2. Right M1 MCA Mechanical Thrombectomy with Stentriever, flow reversal and local clot aspiration ANESTHESIA: MAC COMPLICATIONS: None ESTIMATED BLOOD LOSS: Less than 15ml VESSELS STUDIED:*Right common carotid artery x 1*Right internal carotid artery x 5*Right common femoral artery x1 MATERIALS EMPLOYED:1. Flowgate long sheath2. Catalyst 6 distal access catheter3. Velocity microcatheter4. Synchro standard microwire5. Embotrap 5mm x 33mm Stentriever 6.8Fr Angioseal INDICATIONS:The patient is a 67 year old male with history of HTN, CAD s/p CABG, and CHF who presented to outside hospital with left hemiparesis and slurred speech. He was found to have aright M1 occlusion and transferred for emergent thrombectomy. While the patient was being prepared for the procedure by the team, the indications for the procedure as well as the risks, benefits and alternatives to the procedure were discussed with the patient and his closest relative / sister and a telephone consent was obtained. The risks discussed included but were not limited to stroke, intracranial hemorrhage, injury to the cervical femoral or aortic vessels, contrast reaction, kidney to toxicity, groin hematoma, weakness paralysis and even . They demonstrated understanding of the risk benefit profile and agreed to proceed. PROCEDURE:After appropriate consent was obtained, the patient was brought to the angiographic suite and cardiopulmonary monitoring was placed. A timeout was performed. Both groins were prepped and draped in the usual sterile fashion. After administration of 10 mL of 2% lidocaine, a micropuncture needle was used to perform a single wall puncture of the right common femoral artery, a micropuncture sheath was inserted, and an angled DSA angiogram was performed through the sheath. Once good location of the puncture site was confirmed, a 8 [place] Helenian short sheath was inserted over a Bentson wire and was maintained on heparinized saline flush throughout the remainder of the procedure. Using coaxial technique, a preflushed 5 [place] Helenian 125cm diagnostic glide catheter on constant heparinized saline flush was placed through a pre- flushed and pre-prepped 8 St Helenian Flowgate balloon Guide catheter. The two catheters were inserted together and advanced over the Glidewire into the descending aorta, the Glidewire was removed, the catheter and flowgate were back bled, flushed in usual fashion and they were maintained on heparinized flushed throughout duration of their use. Using coaxial technique, the catheter was advanced into the aortic arch and with the aid of roadmapping, digital fluoroscopy, and careful guidewire manipulation, the right common carotid and right internal carotid arteries were selectively catheterized. Over the diagnostic catheter, the flowgate balloon guide catheter was advanced into the proximal internal carotid artery. The diagnostic catheter was removed, and the balloon guide again back flushed, antegrade flushed and maintained on heparinized flushed throughout remainder the procedure. Then performed intracranial images and identified the occlusion of the right M1. We then inserted a preflushed Velocity microcatheter over a preshaped Synchro standard wire under roadmap guidance into the intracranial circulation. We then advanced it past the large vessel occlusion. The performed microangiograms through the microcatheter to confirm that the tip of the microcatheter was distal to the large vessel clot. Once this was confirmed, we then inserted and deployed the5 x 33 Embotrap device across the clot. We then waited five minutes for clot integration. During the waiting period, performed and diagnostic angiogram showing adequate flow through the clot filling the distal branches. At five minutes, the flowgate balloon was inflated until it was occlusive in the internal carotid, the funeral director's assistant pulled suction through the lumen of the flowgate as we retracted the Stentriever device into the flowgate catheter to the hub. We then disconnected the hub removed the device back bled the flowgate catheter while the balloon was being deflated, and re-connected the flowgate to a clean Y-valve / heparinized flush system. The balloon was confirmed to be deflated with live fluoroscopy, and a diagnostic angiogram of the intracranial circulation was performed. Theintracranial images showed persistent right M1 occlusion. The microcatheter and microwire were againadvanced but through a pre- flushed CAT 6 and advanced distal to the area of occlusion. A micro-run was performed confirming good location distal to the thrombus and the Stentriever was deployed across the clot. After a 5 minute integration period, the CAT 6 was advanced to the face of the clot and vaccuum suction was placed via the penumbra device. When flow arrest was noted in the suction container,we waited 2 minutes, inflated the Flowgate and a second pass was performed in retracting both the Michael ntriever and the CAT 6 together as a system trapping the clot. Subsequent angiogram showed persistent occlusion, and a third pass was performed in the same manner as the second pass with flowgate flow arrest, local aspiration via the CAT 6 and suction through flowgate. After this third maneuver, angiogram showed patent M1 with TICI 2b revascularization. We retracted the flowgate catheter using the live fluoroscopy and puffing technique two sure there is no injury to the internal carotid artery from the flowgate balloon. None was seen. We then removed the flowgate from the circulation. The femoral sheath was removed and hemostasis achieved with an 8 [place] Helenian Angioseal and manual compression. The patient tolerated the procedure well and was present transported from the images read in unchanged neurological status without groin hematoma and with good distal lower extremity pulses. The patient was cloud sferred to the neurological intensive care unit to be monitored as per protocol. FINDINGS:RIGHT COMMON FEMORAL ARTERY (DSA, PA X 1)Normal common femoral artery was puncture site above the bifurcation and below the markers of the internal ligament. RIGHT COMMON CAROTID ARTERY (DSA, PA, LATERAL, CERVICAL)The distal cervical common carotid as well as the origins of the right internal and external carotid arteries are widely patent without evidence of ulceration or stenosis. RIGHT INTERNAL CAROTID ARTERY (DSA, PA, LATERALx2)Normal distal cervical, petrous, cavernous and supraclinoid internal carotid artery with a right M1 MCA segment occlusion from acute thrombus. Post thrombectomy, there is complete resolution of the clot with physiological filling of the distal MCA branches. There are no distal vessel cutoffs but there is delayed filling of the right MCA territory. This this is TICI 2B revascularization. No aneurysms or other vascular lesions are seen. There is no significant atherosclerosis or st enosis. The venous phase demonstrates patent transverse and sigmoid sinuses. IMPRESSION1. Complete occlusion of the right MCA M1 segment. Post- revascularization, there is complete resolution of the intravascular thrombus and cheondoism of flow to the distal MCA branches but with some delayed flow, representing a TICI 2B revascularization. FACULTY ATTESTATION: I, Haroon Phan M.D., was present for the entirety of the procedure. I performed or directly supervised all aspects of the procedure. I performed all critical aspects of the case. I interpreted the images and reported the results. Signed: Haroon Phan MDReport Verified Date/Time: 09/16/2018 17:55:16 [facility] POCT-GLUCOSE [id number] 17:45:00 Test Item Value Reference Range Comments POC-GLUCOSE METER (BEAKER) 153 mg/dL 70-110 TESTE D AT [address] (test code = 1538) [place] [address] POCT-GLUCOSE [id number] 12:08:00 Test Item Value Reference Range Comments POC-GLUCOSE METER (BEAKER) 166 mg/dL 70-110 TESTE D AT [address] (test code = 1538) [place] [address] POCT-GLUCOSE [id number] 06:23:00 Test Item Value Reference Range Comments POC-GLUCOSE METER (BEAKER) 156 mg/dL 70-110 TESTE D AT [address] (test code = 1538) [place] [address] [id number] 05:01:00 Test Item Value Reference Range Comments PARTIAL THROMBOPLASTIN TIME (BEAKER) (test code 32.5 seconds 22.5-36.0 = 760) [id number] 04:20:00 Test Item Value Reference Range Comments MAGNESIUM (BEAKER) (test code 2.0 mg/dL 1.6-2.6 Sp ecimen moderately hemolyzed = 627) [id number] 04:20:00 Test Item Value Reference Range Comments PHOSPHORUS (BEAKER) (test code 2.9 mg/dL 2.3-4.7 S pecimen moderately hemolyzed = 604) BASIC METABOLIC [id number] 04:20:00 Test Item Value Reference Range Comments SODIUM (BEAKER) (test 141 meq/L 136-145 code = 381) POTASSIUM (BEAKER) (test 5.1 meq/L 3.5-5.1 Specime n moderately code = 379) hemolyzed CHLORIDE (BEAKER) (test 110 meq/L 98-107 code = 382) CO2 (BEAKER) (test code = 22 meq/L 22-29 355) BLOOD UREA NITROGEN 19 mg/dL 7-21 (BEAKER) (test code = 354) CREATININE (BEAKER) (test 1.04 mg/dL 0.57-1.25 Specim en moderately code = 358) hemolyzed GLUCOSE RANDOM (BEAKER) 147 mg/dL 70-105 (test code = 652) CALCIUM (BEAKER) (test 8.7 mg/dL 8.4-10.2 code = 697) EGFR (BEAKER) (test code 71 mL/min/1.73 sq m EST IMATED GFR IS NOT = 1092) ACCURATE CREA TININE CLEARANCE IN PRE DICTING GLOMERULAR FILTR ATION RATE. ESTIMATED GFR IS NOT APPLICABLE F OR DIALYSIS PATIENT S. CBC W/PLT COUNT & AUTO [id number] 04:06:00 Test Item Value Reference Range Comments WHITE BLOOD CELL COUNT (BEAKER) (test code = 8.3 K/ L 3.5 -10.5 775) RED BLOOD CELL COUNT (BEAKER) (test code = 761) 3.85 M/ L 4.63-6.08 HEMOGLOBIN (BEAKER) (test code = 410) 10.8 GM/DL 13.7-17.5 HEMATOCRIT (BEAKER) (test code = 411) 34.6 % 40.1-51.0 MEAN CORPUSCULAR VOLUME (BEAKER) (test code = 89.9 fL 79 .0-92.2 753) MEAN CORPUSCULAR HEMOGLOBIN (BEAKER) (test code 28.1 pg 25.7-32.2 = 751) MEAN CORPUSCULAR HEMOGLOBIN CONC (BEAKER) (test 31.2 GM/DL 32.3-36.5 code = 752) RED CELL DISTRIBUTION WIDTH (BEAKER) (test code 15.6 % 11.6-14.4 = 412) PLATELET COUNT (BEAKER) (test code = 756) 196 K/CU MM 150-45 0 MEAN PLATELET VOLUME (BEAKER) (test code = 754) 10.6 fL 9.4-12.4 NUCLEATED RED BLOOD CELLS (BEAKER) (test code = 0 /100 WBC 0-0 413) NEUTROPHILS RELATIVE PERCENT (BEAKER) (test code 85 % = 429) LYMPHOCYTES RELATIVE PERCENT (BEAKER) (test code 8 % = 430) MONOCYTES RELATIVE PERCENT (BEAKER) (test code = 5 % 431) EOSINOPHILS RELATIVE PERCENT (BEAKER) (test code 1 % = 432) BASOPHILS RELATIVE PERCENT (BEAKER) (test code = 0 % 437) NEUTROPHILS ABSOLUTE COUNT (BEAKER) (test code = 7.08 K/ L 1.78-5.38 670) LYMPHOCYTES ABSOLUTE COUNT (BEAKER) (test code = 0.64 K/ L 1.32-3.57 414) MONOCYTES ABSOLUTE COUNT (BEAKER) (test code = 0.44 K/ L 0 .30-0.82 415) EOSINOPHILS ABSOLUTE COUNT (BEAKER) (test code = 0.11 K/ L 0.04-0.54 416) BASOPHILS ABSOLUTE COUNT (BEAKER) (test code = 0.03 K/ L 0 .01-0.08 417) IMMATURE GRANULOCYTES-RELATIVE PERCENT (BEAKER) 0 % 0-1 (test code = 2801) [id number] 03:57:00 Test Item Value Reference Range Comments FIBRINOGEN LEVEL (BEAKER) (test code = 658) 160 mg/dl 225- 434 PROTHROMBIN [id number] 03:56:00 Test Item Value Reference Range Comments PROTIME (BEAKER) (test code = 759) 15.6 seconds 11.9-14.2 INR (BEAKER) (test code = 370) 1.3 <=5.9 Effective 07/06/2018: PT Reference Range ChangeNew: 11.9-14.2 Previous: 11.7- 14.7RECOMMENDED COUMADIN/WARFARIN INR THERAPY RANGESSTANDARD DOSE: 2.0-3.0 Includes: PROPHYLAXIS for venous thrombosis, systemic embolization; TREATMENT for venous thrombosis and/or pulmonary embolus.HIGH RISK: Target INR is2.5-3.5 for patients wiht mechanical heart valves.POCT-GLUCOSE [id number] 00:13:00 Test Item Value Reference Range Comments POC-GLUCOSE METER (Dream DinnersAKER) 134 mg/dL 70-110 TESTE D AT [address] (test code = 1538) [place] [address] [id number] 18:37:00 Test Item Value Reference Range Comments D-DIMER QUANTITATIVE (BEAKER) (test code = 671) > MG/L FEU <0.50 Intended Use: The D-Dimer Assay can be used to aid in the diagnosis of Deep Vein Thrombosis (DVT) and Pulmonary Embolism Disease (PED).In patients with low pre- test probability, various studies concerning STA Liatest D-dimer test have reported that with a cutoff value of 0.50 MG/L FEU, the Negative Predictive Value (NPV) regarding the exclusion of thrombosis is within 95-100% range.B-TYPE NATRIURETIC FACTOR (BNP)2018-09-15 18:04:00 Test Item Value Reference Range Comments B-TYPE NATRIURETIC PEPTIDE (BEAKER) (test code = 864 pg/mL 0-100 700) POCT-GLUCOSE [id number] 18:02:00 Test Item Value Reference Range Comments POC-GLUCOSE METER (BEAKER) 118 mg/dL 70-110 TESTE D AT [address] (test code = 1538) [place] [address] [id number] 17:57:00 Test Item Value Reference Range Comments FIBRINOGEN LEVEL (BEAKER) (test code = 658) 104 mg/dl 225- 434 LACTATE DEHYDROGENASE (LDH)2018-09-15 17:56:00 Test Item Value Reference Range Comments LACTATE DEHYDROGENASE (BEAKER) (test code = 635) 172 U/L 125-220 [id number] 17:52:00 Test Item Value Reference Range Comments PARTIAL THROMBOPLASTIN TIME (BEAKER) (test code 34.5 seconds 22.5-36.0 = 760) RAD, CHEST, 1 VIEW, NON [id number] 17:39:00Reason for exam:->HFShould this be performed at the bedside?->YesFINAL REPORT Chest dated 09/15/2018 Clinical Information: HF Comment: Heart isenlarged. Pulmonary vasculature is indistinct. Interstitial disease is seen bilaterally suggestive of pulmonary edema. No pleural effusion or pneumothorax is seen. Impression: Congestive failure. Signed: Nik Webster MDReport Verified Date/Time: 09/15/2018 17:39:38 Reading Location: [address] Consult Reading Room TROPONIN I 2018-09-15 16:44:00 Test Item Value Reference Range Comments TROPONIN I (BEAKER) (test code = 397) 0.17 ng/mL 0.00-0.03 Troponin I (TnI) levels must be interpreted in the context of the presenting symptoms and the clinical findings. Elevated TnI levels indicate myocardial damage, but are not specific for ischemic heart disease. Elevated TnI levels are seen in patients with other cardiac conditions (including myocarditis and congestive heart failure), and slight TnI elevations occur in patients with other conditions, including sepsis, renal failure, acidosis, acute neurological disease, and persistent tachyarrhythmia.PROTHROMBIN [id number] 16:23:00 Test Item Value Reference Range Comments PROTIME (BEAKER) (test code = 759) 16.8 seconds 11.9-14.2 INR (BEAKER) (test code = 370) 1.4 <=5.9 Effective 07/06/2018: PT Reference Range ChangeNew: 11.9-14.2 Previous: 11.7- 14.7RECOMMENDED COUMADIN/WARFARIN INR THERAPY RANGESSTANDARD DOSE: 2.0-3.0 Includes: PROPHYLAXIS for venous thrombosis, systemic embolization; TREATMENT for venous thrombosis and/or pulmonary embolus.HIGH RISK: Target INR is2.5-3.5 for patients wiht mechanical heart valves.POCT-GLUCOSE [id number] 12:56:00 Test Item Value Reference Range Comments POC-GLUCOSE METER (BEAKER) 135 mg/dL 70-110 TESTE D AT [facility] [address] [facility] (test code = 1538) [place] [address] POCT-GLUCOSE [id number] 08:20:00 Test Item Value Reference Range Comments POC-GLUCOSE METER (BEAKER) 144 mg/dL 70-110 TESTE D AT [facility] [address] [facility] (test code = 1538) [place] [address] POCT-GLUCOSE [id number] 06:08:00 Test Item Value Reference Range Comments POC-GLUCOSE METER (BEAKER) 162 mg/dL 70-110 TESTE D AT [place] [id number] [facility] (test code = 1538) [place] [address] TROPONIN [id number] 03:48:00 Test Item Value Reference Range Comments TROPONIN I (BEAKER) (test code = 397) 0.16 ng/mL 0.00-0.03 Troponin I (TnI) levels must be interpreted in the context of the presenting symptoms and the clinical findings. Elevated TnI levels indicate myocardial damage, but are not specific for ischemic heart disease. Elevated TnI levels are seen in patients with other cardiac conditions (including myocarditis and congestive heart failure), and slight TnI elevations occur in patients with other conditions, including sepsis, renal failure, acidosis, acute neurological disease, and persistent tachyarrhythmia.BASIC METABOLIC [id number] 03:29:00 Test Item Value Reference Range Comments SODIUM (BEAKER) (test 141 meq/L 136-145 code = 381) POTASSIUM (BEAKER) (test 4.4 meq/L 3.5-5.1 code = 379) CHLORIDE (BEAKER) (test 108 meq/L 98-107 code = 382) CO2 (BEAKER) (test code = 23 meq/L 22-29 355) BLOOD UREA NITROGEN 19 mg/dL 7-21 (BEAKER) (test code = 354) CREATININE (BEAKER) (test 1.13 mg/dL 0.57-1.25 code = 358) GLUCOSE RANDOM (BEAKER) 183 mg/dL 70-105 (test code = 652) CALCIUM (BEAKER) (test 8.7 mg/dL 8.4-10.2 code = 697) EGFR (BEAKER) (test code 65 mL/min/1.73 sq m EST IMATED GFR IS NOT = 1092) ACCURATE CREA TININE CLEARANCE IN PRE DICTING GLOMERULAR FILTR ATION RATE. ESTIMATED GFR IS NOT APPLICABLE F OR DIALYSIS PATIENT S. CBC W/PLT COUNT & AUTO [id number] 03:08:00 Test Item Value Reference Range Comments WHITE BLOOD CELL COUNT (BEAKER) (test code = 10.5 K/ L 3.5 -10.5 775) RED BLOOD CELL COUNT (BEAKER) (test code = 761) 3.94 M/ L 4.63-6.08 HEMOGLOBIN (BEAKER) (test code = 410) 11.2 GM/DL 13.7-17.5 HEMATOCRIT (BEAKER) (test code = 411) 34.7 % 40.1-51.0 MEAN CORPUSCULAR VOLUME (BEAKER) (test code = 88.1 fL 79 .0-92.2 753) MEAN CORPUSCULAR HEMOGLOBIN (BEAKER) (test code 28.4 pg 25.7-32.2 = 751) MEAN CORPUSCULAR HEMOGLOBIN CONC (BEAKER) (test 32.3 GM/DL 32.3-36.5 code = 752) RED CELL DISTRIBUTION WIDTH (BEAKER) (test code 15.5 % 11.6-14.4 = 412) PLATELET COUNT (BEAKER) (test code = 756) 192 K/CU MM 150-45 0 MEAN PLATELET VOLUME (BEAKER) (test code = 754) 10.1 fL 9.4-12.4 NUCLEATED RED BLOOD CELLS (BEAKER) (test code = 0 /100 WBC 0-0 413) NEUTROPHILS RELATIVE PERCENT (BEAKER) (test code 90 % = 429) LYMPHOCYTES RELATIVE PERCENT (BEAKER) (test code 5 % = 430) MONOCYTES RELATIVE PERCENT (BEAKER) (test code = 5 % 431) EOSINOPHILS RELATIVE PERCENT (BEAKER) (test code 0 % = 432) BASOPHILS RELATIVE PERCENT (BEAKER) (test code = 0 % 437) NEUTROPHILS ABSOLUTE COUNT (BEAKER) (test code = 9.51 K/ L 1.78-5.38 670) LYMPHOCYTES ABSOLUTE COUNT (BEAKER) (test code = 0.47 K/ L 1.32-3.57 414) MONOCYTES ABSOLUTE COUNT (BEAKER) (test code = 0.48 K/ L 0 .30-0.82 415) EOSINOPHILS ABSOLUTE COUNT (BEAKER) (test code = 0.00 K/ L 0.04-0.54 416) BASOPHILS ABSOLUTE COUNT (BEAKER) (test code = 0.01 K/ L 0 .01-0.08 417) IMMATURE GRANULOCYTES-RELATIVE PERCENT (BEAKER) 1 % 0-1 (test code = 2801) MR, BRAIN, WITHOUT [id number] 02:57:00Reason for exam:->strokeFINAL REPORT Exam: MRI brain without contrast. Comparison: None. Clinical indication: Stroke Technique: Multiplanar multi sequential MR imaging of the brain was performed without the administration of intravenous contrast. Findings:There are areas of restricted diffusion in the right caudate body, right putamen, right insular cortex, right frontal lobe and tiny foci in the right medial temporal lobe, right castro radiata, right precentral and postcentral gyri, right occipital consistent with acute infarcts. There is susceptibility artifact within the right putamen infarct consistent with hemorrhagic transformation. There is mild mass effect on the right lateral ventricle. There is generalized parenchymal atrophy. There are mild white matter microvascular ischemic changes.There are chronic bilateral cerebellar infarcts. There is no extra-axial collection, hydrocephalusor herniation. The skull base flow-voids are seen in keeping with their patency. The visualized paranasal sinuses and mastoid air cells are clear. The orbits, sella and parasellar regions are unremarkable. The craniocervical junction is normal. 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 Signed: Greta Mohan MDReport Verified Date/Time: 09/15/2018 02:57:30 POCT-GLUCOSE [id number] 00:23:00 Test Item Value Reference Range Comments POC-GLUCOSE METER (BEAKER) 127 mg/dL 70-110 TESTE D AT [facility] [address] [facility] (test code = 1538) [facility] 77 030 TROPONIN [id number] 17:00:00 Test Item Value Reference Range Comments TROPONIN I (BEAKER) (test code = 397) 0.16 ng/mL 0.00-0.03 Troponin I (TnI) levels must be interpreted in the context of the presenting symptoms and the clinical findings. Elevated TnI levels indicate myocardial damage, but are not specific for ischemic heart disease. Elevated TnI levels are seen in patients with other cardiac conditions (including myocarditis and congestive heart failure), and slight TnI elevations occur in patients with other conditions, including sepsis, renal failure, acidosis, acute neurological disease, and persistent tachyarrhythmia.POCT-GLUCOSE [id number] 16:29:00 Test Item Value Reference Range Comments POC-GLUCOSE METER ([facility]) 204 mg/dL 70-110 TESTE D AT [address] (test code = 1538) [place] [address] 030 POCT-GLUCOSE [id number] 14:11:00 Test Item Value Reference Range Comments POC-GLUCOSE METER (BEAKER) 230 mg/dL 70-110 TESTE D AT [address] (test code = 1538) [place] [address] 030 TROPONIN [id number] 11:44:00 Test Item Value Reference Range Comments TROPONIN I (AKER) (test code = 397) 0.11 ng/mL 0.00-0.03 Troponin I (TnI) levels must be interpreted in the context of the presenting symptoms and the clinical findings. Elevated TnI levels indicate myocardial damage, but are not specific for ischemic heart disease. Elevated TnI levels are seen in patients with other cardiac conditions (including myocarditis and congestive heart failure), and slight TnI elevations occur in patients with other conditions, including sepsis, renal failure, acidosis, acute neurological disease, and persistent tachyarrhythmia.[id number] 11:42:00 Test Item Value Reference Range Comments RPR SCREEN ([facility]) (test code = 420) Nonreactive Nonreactiv e HEMOGLOBIN [id number] 06:56:00 Test Item Value Reference Range Comments HEMOGLOBIN A1C (BEAKER) (test code = 368) 6.3 % 4.3-6. 1 C-REACTIVE [id number] 04:38:00 Test Item Value Reference Range Comments C-REACTIVE PROTEIN (BEAKER) (test code = 676) 19.08 mg/dL 0. 00-0.50 FastingLIPID [id number] 04:09:00 Test Item Value Reference Range Comments TRIGLYCERIDES (BEAKER) (test code = 540) 101 mg/dL CHOLESTEROL (BEAKER) (test code = 631) 240 mg/dL HDL CHOLESTEROL (BEAKER) (test code = 976) 46 mg/dL LDL CHOLESTEROL CALCULATED (BEAKER) (test code = 174 mg/dL 633) Triglyceride Reference Range: Low Risk <150 Borderline 150-199 High Risk 200-499 Very High Risk >=500Cholesterol Reference Range: Low Risk <200 Borderline 200-239 High Risk >240HDL Cholesterol Reference Range: Low Risk >=60 High Risk <40LDL Cholesterol Reference Range: Optimal <100 Near Optimal 100-129 Borderline 130-159 High 160-189 Very High >=190 FastingBASIC METABOLIC [id number] 04:09:00 Test Item Value Reference Range Comments SODIUM (BEAKER) (test 136 meq/L 136-145 code = 381) POTASSIUM (BEAKER) (test 4.5 meq/L 3.5-5.1 code = 379) CHLORIDE (BEAKER) (test 102 meq/L 98-107 code = 382) CO2 (BEAKER) (test code = 20 meq/L 22-29 355) BLOOD UREA NITROGEN 18 mg/dL 7-21 (BEAKER) (test code = 354) CREATININE (BEAKER) (test 1.08 mg/dL 0.57-1.25 code = 358) GLUCOSE RANDOM (BEAKER) 186 mg/dL 70-105 (test code = 652) CALCIUM (BEAKER) (test 8.9 mg/dL 8.4-10.2 code = 697) EGFR (BEAKER) (test code 68 mL/min/1.73 sq m EST IMATED GFR IS NOT = 1092) ACCURATE CREA TININE CLEARANCE IN PRE DICTING GLOMERULAR FILTR ATION RATE. ESTIMATED GFR IS NOT APPLICABLE F OR DIALYSIS PATIENT S. FastingHEPATIC FUNCTION [id number] 04:09:00 Test Item Value Reference Range Comments TOTAL PROTEIN (BEAKER) (test code = 770) 7.2 gm/dL 6.0-8.3 ALBUMIN (BEAKER) (test code = 1145) 3.9 g/dL 3.5-5.0 BILIRUBIN TOTAL (BEAKER) (test code = 377) 1.1 mg/dL 0.2-1 .2 BILIRUBIN DIRECT (BEAKER) (test code = 706) 0.4 mg/dL 0.1- 0.5 ALKALINE PHOSPHATASE (BEAKER) (test code = 346) 67 U/L 40-150 AST (SGOT) (BEAKER) (test code = 353) 18 U/L 5-34 ALT (SGPT) (BEAKER) (test code = 347) 9 U/L 6-55 FastingTSH/FREE T4 IF [id number] 03:38:00 Test Item Value Reference Range Comments THYROID STIMULATING HORMONE (BEAKER) (test code 1.68 uIU/mL 0.35-4.94 = 772) VITAMIN B12 AND [id number] 03:38:00 Test Item Value Reference Range Comments VITAMIN B12 (BEAKER) (test code = 774) 853 pg/mL 213-816 FOLATE (BEAKER) (test code = 362) 12.9 ng/mL >=7.0 [id number] 03:05:00 Test Item Value Reference Range Comments PROTIME (BEAKER) (test code = 759) 23.8 seconds 11.9-14.2 INR (BEAKER) (test code = 370) 2.3 <=5.9 PARTIAL THROMBOPLASTIN TIME (BEAKER) (test code 70.1 seconds 22.5-36.0 = 760) Effective 07/06/2018: PT Reference Range ChangeNew: 11.9-14.2 Previous: 11.7- 14.7RECOMMENDED COUMADIN/WARFARIN INR THERAPY RANGESSTANDARD DOSE: 2.0-3.0 Includes: PROPHYLAXIS for venous thrombosis, systemic embolization; TREATMENT for venous thrombosis and/or pulmonary embolus.HIGH RISK: Target INR is2.5-3.5 for patients wiht mechanical heart valves.PROTHROMBIN [id number] 03:04:00 Test Item Value Reference Range Comments PROTIME (BEAKER) (test code = 759) 23.8 seconds 11.9-14.2 INR (BEAKER) (test code = 370) 2.3 <=5.9 Effective 07/06/2018: PT Reference Range ChangeNew: 11.9-14.2 Previous: 11.7- 14.7RECOMMENDED COUMADIN/WARFARIN INR THERAPY RANGESSTANDARD DOSE: 2.0-3.0 Includes: PROPHYLAXIS for venous thrombosis, systemic embolization; TREATMENT for venous thrombosis and/or pulmonary embolus.HIGH RISK: Target INR is2.5-3.5 for patients wiht mechanical heart valves.CBC W/PLT COUNT & AUTO [id number] 03:02:00 Test Item Value Reference Range Comments WHITE BLOOD CELL COUNT (BEAKER) (test code = 10.3 K/ L 3.5 -10.5 775) RED BLOOD CELL COUNT (BEAKER) (test code = 761) 4.73 M/ L 4.63-6.08 HEMOGLOBIN (BEAKER) (test code = 410) 13.4 GM/DL 13.7-17.5 HEMATOCRIT (BEAKER) (test code = 411) 42.8 % 40.1-51.0 MEAN CORPUSCULAR VOLUME (BEAKER) (test code = 90.5 fL 79 .0-92.2 753) MEAN CORPUSCULAR HEMOGLOBIN (BEAKER) (test code 28.3 pg 25.7-32.2 = 751) MEAN CORPUSCULAR HEMOGLOBIN CONC (BEAKER) (test 31.3 GM/DL 32.3-36.5 code = 752) RED CELL DISTRIBUTION WIDTH (BEAKER) (test code 15.1 % 11.6-14.4 = 412) PLATELET COUNT (BEAKER) (test code = 756) 196 K/CU MM 150-45 0 MEAN PLATELET VOLUME (BEAKER) (test code = 754) 10.2 fL 9.4-12.4 NUCLEATED RED BLOOD CELLS (BEAKER) (test code = 0 /100 WBC 0-0 413) NEUTROPHILS RELATIVE PERCENT (BEAKER) (test code 95 % = 429) LYMPHOCYTES RELATIVE PERCENT (BEAKER) (test code 2 % = 430) MONOCYTES RELATIVE PERCENT (BEAKER) (test code = 2 % 431) EOSINOPHILS RELATIVE PERCENT (BEAKER) (test code 0 % = 432) BASOPHILS RELATIVE PERCENT (BEAKER) (test code = 0 % 437) NEUTROPHILS ABSOLUTE COUNT (BEAKER) (test code = 9.85 K/ L 1.78-5.38 670) LYMPHOCYTES ABSOLUTE COUNT (BEAKER) (test code = 0.22 K/ L 1.32-3.57 414) MONOCYTES ABSOLUTE COUNT (BEAKER) (test code = 0.18 K/ L 0 .30-0.82 415) EOSINOPHILS ABSOLUTE COUNT (BEAKER) (test code = 0.01 K/ L 0.04-0.54 416) BASOPHILS ABSOLUTE COUNT (BEAKER) (test code = 0.02 K/ L 0 .01-0.08 417) IMMATURE GRANULOCYTES-RELATIVE PERCENT (BEAKER) 1 % 0-1 (test code = 2801) CT, CTANGIFEANYI [id number] 02:29:00Reason for exam:->strokeFINAL REPORT CLINICAL HISTORY: StrokeIschemic Stroke Evaluation TECHNIQUE: Initially, noncontrast head CT images were performed. For the CT perfusion, 4 thick sections acquired for approximately 100 acquisitions during rapid bolus administration of contrast. Time to Start, Timeto Peak, Mean Transit Time, Cerebral Blood Flow and Cerebral Blood Volume maps were created.Contiguous contrast-enhanced axial images through the neck followed by axial images through the head with coronal and sagittal reformations to assess the arterial circulation. 3-D reconstructions were performedusing a volume rendered technique separately on a workstation. This exam was performed according to the departmental dose optimization program which includes automated exposure control, adjustment of the mA and/or kV according to the patient size, and/or use of an iterative reconstruction technique. COMPARISON: None FINDINGS: Acute right MCA territory infarction with loss of cartagena-white matter differen tiation in the right frontal opercular region and right basal ganglia. No intracranial hemorrhage isidentified. Intracranial vascular calcifications. Generalized parenchymal volume loss with commensurate enlargement of CSF spaces and ventricles. There is no hydrocephalus or midline shift. The skull is intact. Abrupt occlusion of the right MCA at the junction of M1/M2 with good collateral flow in the distal M2 segments. The left MCA is patent. The bilateral anterior cerebral arteries are widely patent. Anterior communicating artery is patent. Bilateral posterior cerebral arteries are patent. The posterior communicating arteries are not identified on current examination. Mild stenosis of the mid and V4 segments of the bilateral vertebral arteries secondary to atherosclerosis.Atherosclerotic calcifications of the bilateral carotid siphons resulting in mild stenosis in the bilateral clinoid segment.The major intradural venous sinuses are patent.Motion artifact limits evaluation of the cervical ves sels particularly the origin of the left internal carotid artery there is possible approximately 20%stenosis of the origin of the left internal carotid artery by NASCET criteria. Atherosclerotic calcifications of the right carotid bifurcation however no flow limiting stenosis.The origins of the bilateral vertebral arteries are not well evaluated secondary to motion artifact however the distal cervical vertebral arteries are widely patent. There are dorsal spondylitic changes in the cervical spine. There are scattered subcentimeter lymph nodes in the neck. Soft tissues of the neck are normal. Motion artifact limits evaluation of the lungs with suggestion of interlobular septal thickening consistent with interstitial pulmonary edema. Postsurgical changes of a CABG. CT PERFUSION PARAMETRIC MAPS: CBF: Large area of decreased cerebral blood flow within the right MCA territory involving the right temporal, frontal, parietal lobes and basal ganglia.MTT: Moderate area of increased mean transit time w ithin the right MCA territory involving the right temporal, frontal, parietal lobes and basal ganglia.CBV: Decreased cerebral blood volume within the right frontal operculum/basal ganglia consistent with acute infarction.TTP: Moderate area of increased time to peak within the right MCA territory involving the right temporal, frontal, parietal lobes and basal ganglia. IMPRESSION: Acute infarction in the right frontal operculum involving the right basal ganglia with associated decreased cerebral bloodvolume. No acute intracranial images identified. Large area of mismatch perfusion defect in the right MCA territory consistent with large penumbra/perfusion abnormality. Abrupt occlusion of the right distal M1/proximal M2 segment of the middle cerebral artery with collateral flow seen in the distal vessels. Evaluation of the cervical CTA is limited secondary to motion artifact. The origins of bilateral vertebral arteries are not well seen. Otherwise the distal cervical vertebral arteries are widelypatent. Approximately 20% stenosis of the origin of left internal carotid artery by NASCET criteria.Interstitial pulmonary edema. NOTIFICATION: The significant results of this study were discussed with and acknowledged by in house neurology resident, by telephone on 09/14/2018 2:00 AM. Signed: Lizet Paulson [facility] Verified Date/Time: 09/14/2018 02:29:06 [facility] CAR[facility]ID, ANGIO 2018-09-14 02:29:00Reason for exam:->Ischemic Stroke EvaluationFINAL REPORT CLINICAL HISTORY: StrokeIschemic Stroke Evaluation TECHNIQUE: Initially, noncontrast head CT images were performed. For the CT perfusion, 4 thick sections acquired for approximately 100 acquisitions during rapid bolus administration of contrast. Time to Start, Timeto Peak, Mean Transit Time, Cerebral Blood Flow and Cerebral Blood Volume maps were created.Contiguous contrast-enhanced axial images through the neck followed by axial images through the head with coronal and sagittal reformations to assess the arterial circulation. 3-D reconstructions were performedusing a volume rendered technique separately on a workstation. This exam was performed according to the departmental dose optimization program which includes automated exposure control, adjustment of the mA and/or kV according to the patient size, and/or use of an iterative reconstruction technique. COMPARISON: None FINDINGS: Acute right MCA territory infarction with loss of cartagena-white matter differen tiation in the right frontal opercular region and right basal ganglia. No intracranial hemorrhage isidentified. Intracranial vascular calcifications. Generalized parenchymal volume loss with commensurate enlargement of CSF spaces and ventricles. There is no hydrocephalus or midline shift. The skull is intact. Abrupt occlusion of the right MCA at the junction of M1/M2 with good collateral flow in the distal M2 segments. The left MCA is patent. The bilateral anterior cerebral arteries are widely patent. Anterior communicating artery is patent. Bilateral posterior cerebral arteries are patent. The posterior communicating arteries are not identified on current examination. Mild stenosis of the mid and V4 segments of the bilateral vertebral arteries secondary to atherosclerosis.Atherosclerotic calcifications of the bilateral carotid siphons resulting in mild stenosis in the bilateral clinoid segment.The major intradural venous sinuses are patent.Motion artifact limits evaluation of the cervical ves sels particularly the origin of the left internal carotid artery there is possible approximately 20%stenosis of the origin of the left internal carotid artery by NASCET criteria. Atherosclerotic calcifications of the right carotid bifurcation however no flow limiting stenosis.The origins of the bilateral vertebral arteries are not well evaluated secondary to motion artifact however the distal cervical vertebral arteries are widely patent. There are dorsal spondylitic changes in the cervical spine. There are scattered subcentimeter lymph nodes in the neck. Soft tissues of the neck are normal. Motion artifact limits evaluation of the lungs with suggestion of interlobular septal thickening consistent with interstitial pulmonary edema. Postsurgical changes of a CABG. CT PERFUSION PARAMETRIC MAPS: CBF: Large area of decreased cerebral blood flow within the right MCA territory involving the right temporal, frontal, parietal lobes and basal ganglia.MTT: Moderate area of increased mean transit time w ithin the right MCA territory involving the right temporal, frontal, parietal lobes and basal ganglia.CBV: Decreased cerebral blood volume within the right frontal operculum/basal ganglia consistent with acute infarction.TTP: Moderate area of increased time to peak within the right MCA territory involving the right temporal, frontal, parietal lobes and basal ganglia. IMPRESSION: Acute infarction in the right frontal operculum involving the right basal ganglia with associated decreased cerebral bloodvolume. No acute intracranial images identified. Large area of mismatch perfusion defect in the right MCA territory consistent with large penumbra/perfusion abnormality. Abrupt occlusion of the right distal M1/proximal M2 segment of the middle cerebral artery with collateral flow seen in the distal vessels. Evaluation of the cervical CTA is limited secondary to motion artifact. The origins of bilateral vertebral arteries are not well seen. Otherwise the distal cervical vertebral arteries are widelypatent. Approximately 20% stenosis of the origin of left internal carotid artery by NASCET criteria.Interstitial pulmonary edema. NOTIFICATION: The significant results of this study were discussed with and acknowledged by in house neurology resident, by telephone on 09/14/2018 2:00 AM. Signed: Lizet Paulson Verified Date/Time: 09/14/2018 02:29:06 [facility], CEREBRAL PERFUSION [id number] 02:29:00Reason for exam:->Symptom onset less than 6 hours and NIHSS 6 or greaterFINAL REPORT CLINICAL HISTORY: StrokeIschemic Stroke Evaluation TECHNIQUE: Initially, noncontrast head CT images were performed. For the CT perfusion, 4 thick sections acquired for approximately 100 acquisitions during rapid bolus administration of contrast. Time to Start, Timeto Peak, Mean Transit Time, Cerebral Blood Flow and Cerebral Blood Volume maps were created.Contiguous contrast-enhanced axial images through the neck followed by axial images through the head with coronal and sagittal reformations to assess the arterial circulation. 3-D reconstructions were performedusing a volume rendered technique separately on a workstation. This exam was performed according to the departmental dose optimization program which includes automated exposure control, adjustment of the mA and/or kV according to the patient size, and/or use of an iterative reconstruction technique. CO MPARISON: None FINDINGS: Acute right MCA territory infarction with loss of cartagena- white matter differentiation in the right frontal opercular region and right basal ganglia. No intracranial hemorrhage isidentified. Intracranial vascular calcifications. Generalized parenchymal volume loss with commensurate enlargement of CSF spaces and ventricles. There is no hydrocephalus or midline shift. The skull is intact. Abrupt occlusion of the right MCA at the junction of M1/M2 with good collateral flow in the distal M2 segments. The left MCA is patent. The bilateral anterior cerebral arteries are widely patent. Anterior communicating artery is patent. Bilateral posterior cerebral arteries are patent. The posterior communicating arteries are not identified on current examination. Mild stenosis of the mid and V4 segments of the bilateral vertebral arteries secondary to atherosclerosis.Atherosclerotic calcifications of the bilateral carotid siphons resulting in mild stenosis in the bilateral clinoid segment.The major intradural venous sinuses are patent.Motion artifact limits evaluation of the cervical vessels particularly the origin of the left internal carotid artery there is possible approximately 20%stenosis of the origin of the left internal carotid artery by NASCET criteria. Atherosclerotic calcifications of the right carotid bifurcation however no flow limiting stenosis.The origins of the bilateral vertebral arteries are not well evaluated secondary to motion artifact however the distal cervical vertebral arteries are widely patent. There are dorsal spondylitic changes in the cervical spine. There are scattered subcentimeter lymph nodes in the neck. Soft tissues of the neck are normal. Motion artifact limits evaluation of the lungs with suggestion of interlobular septal thickening consistent with interstitial pulmonary edema. Postsurgical changes of a CABG. CT PERFUSION PARAMETRIC MAPS: CBF: Large area of decreased cerebral blood flow within the right MCA territory involving the right temporal, frontal, parietal lobes and basal ganglia.MTT: Moderate area of increased mean transit time within the right MCA territory involving the right temporal, frontal, parietal lobes and basal ganglia.CBV: Decreased cerebral blood volume within the right frontal operculum/basal ganglia consistent with acute infarction.TTP: Moderate area of increased time to peak within the right MCA territory involving the right temporal, frontal, parietal lobes and basal ganglia.
[2019-05-18] MEDS ORDERED: HYDROCODONE/APAP 10/325 TAB ONE (12:32)
[2019-05-18 12:52] LABS: Absolute Lymphocytes (CBC) 0.3 K/uL (0.7-4.9); Basophils % 0.4 % (0-1.3); Hematocrit 43.6 % (39.6-49.0); MPV 9.1 fL (7.6-11.3); RBC Red Blood Cell Count 4.77 M/uL (4.33-5.43)
[2019-05-18 13:03] LABS: Albumin 2.5 g/dL (3.4-5.0); Bilirubin Direct 0.3 mg/dL (0-0.2); Bilirubin Total 0.8 mg/dL (0.2-1.0); Magnesium 3.3 mg/dL (1.8-2.4); Potassium 4.4 mmol/L (3.5-5.1)
--- NOTE | 2019-05-18 13:20 | EDPHYS ---
Physician Documentation [facility] Name: Lamin Fitzpatrick III Age: 68 yrs Sex: Male : 1950 Arrival Date: 05/18/2019 Time: 11:51 Bed 6 Private MD: ED Physician Xavier Merritt HPI: 05/17 13:20 This 68 yrs old Male presents to ER via EMS with complaints of Abnormal Lab kdr Results - Poor renal function. 13:20 The patient was sent by his PCP to be evaluated for worsening renal function. Since the kdr end of February, his Cr has steadily worsened.. 17:21 Onset: The symptoms/episode began/occurred suddenly, just prior to arrival. Severity of kdr symptoms: At their worst the symptoms were mild moderate just prior to arrival, in the emergency department the symptoms have improved mildly. The patient has not experienced similar symptoms in the past. The patient has not recently seen a physician. The patient vomited into his face mask at dialysis and the staff was concerned that the patient may have aspirated. Historical: - Allergies: 11:51 Alteplase; aa5 - Home Meds: 13:01 colchicine 0.6 mg Oral cap 1 cap once daily [Active]; aspirin 81 mg Oral chew 1 tab aa5 once daily [Active]; allopurinol 100 mg Oral tab once daily [Active]; ezetimibe oral oral 10 mg once daily [Active]; metoprolol tartrate 12.5mg oral tab 2 times per day [Active]; Dulcolax (bisacodyl) 5 mg Oral TbEC twice a day [Active]; atorvastatin 10 mg oral tab once daily [Active]; Glucosamine oral 1500mg oral twice a day [Active]; Milk of Magnesia 400 mg/5 mL Oral susp 30 mL once daily [Active]; omeprazole 20 mg Oral cpDR once daily [Active]; Eliquis 5 mg oral tab 2 times per day [Active]; tramadol 50 mg Oral tab every 6 hours for Pain [Active]; Delong 10-325 mg Oral tab every 6 hours for Pain [Active]; acetaminophen 650 mg oral TbER every 8 hours for Pain [Active]; - PMHx: 11:51 CAD; CHF; Gout; CVA; Chronic pain from gout; aa5 - PSHx: 11:51 CABG; aa5 - Immunization history:: Adult Immunizations unknown, Last tetanus immunization: unknown, Pneumococcal vaccine status is unknown, Flu vaccine status is unknown. - Social history:: Smoking status: unknown. ROS: 17:21 Constitutional: Negative for fever, chills, and weight loss - the patient has no c/o at kdr tis time and is otherwise a poor historian with limited communicaton ability Eyes: Negative for injury, pain, redness, and discharge. 17:21 Unable to obtain ROS due to patient being uncooperative. Exam: 17:21 Constitutional: This is a well developed, well nourished patient who is awake, alert, kdr and in no acute distress. Head/Face: Normocephalic, atraumatic. Eyes: Pupils equal round and reactive to light, extra-ocular motions intact. Lids and lashes normal. Conjunctiva and sclera are non-icteric and not injected. Cornea within normal limits. Periorbital areas with no swelling, redness, or edema. Neck: Trachea midline, no thyromegaly or masses palpated, and no cervical lymphadenopathy. Supple, full range of motion without nuchal rigidity, or vertebral point tenderness. No Meningismus. Chest/axilla: Normal chest wall appearance and motion. Nontender with no deformity. No lesions are appreciated. Cardiovascular: Regular rate and rhythm with a normal S1 and S2. No gallops, murmurs, or rubs. Normal PMI, no JVD. No pulse deficits. Respiratory: Lungs have equal breath sounds bilaterally, clear to auscultation and percussion. No rales, rhonchi or wheezes noted. No increased work of breathing, no retractions or nasal flaring. 17:21 Musculoskeletal/extremity: The patient is clearly contracted. Vital Signs: 11:51 BP 104 / 49; Pulse 108; Resp 16 S; Temp 97.7(O); Pulse Ox 96% on R/A; Pain 10/10; aa5 16:10 BP 139 / 84; Pulse 107; Resp 16; Temp 97.6(O); Pulse Ox 97% on R/A; Pain 8/10; ls4 MDM: 13:19 Patient medically screened. kdr 17:21 Data reviewed: vital signs, nurses notes, old medical records, radiologic studies. kdr Counseling: I had a detailed discussion with the patient and/or guardian regarding: the historical points, exam findings, and any diagnostic results supporting the discharge/admit diagnosis, lab results, radiology results, the need for outpatient follow up. 05/17 12:05 Order name: Basic Metabolic Panel; Complete Time: 13:13 kdr 05/17 12:05 Order name: CBC with Diff kdr 05/17 12:05 Order name: LFT's; Complete Time: 13:13 kdr 05/17 12:05 Order name: Magnesium; Complete Time: 13:13 kdr 05/17 12:05 Order name: ESR kdr 05/17 12:05 Order name: CRP; Complete Time: 13:13 kdr 05/17 12:05 Order name: IV Saline Lock; Complete Time: 12:50 kdr 05/17 12:05 Order name: Labs collected and sent; Complete Time: 12:50 kdr Administered Medications: 12:30 Drug: HYDROcodone-acetaminophen 10 mg-325 mg 1 tabs Route: PO; iw 12:38 Not Given (Duplicate Order): Lortab (10 mg-500 mg) 1 tabs PO once; RASS on ADMIN: iw Combtv4, Very Agttd3, Agttd2, Rstlss1, AlertClm0, Drwsy-1, Lt Sdtn-2, Mod Sdtn-3, Dp Sdtn-4, UnArsble-5 15:00 Drug: morphine 4 mg Route: IVP; Site: right wrist; iw 15:00 Drug: Zofran (Ondansetron) 4 mg Route: IVP; Site: right wrist; iw Disposition: 05/18/19 13:19 Hospitalization ordered by Suleman Rodrigues for Observation. Preliminary diagnosis is Reanl Failure, Gout. - Bed requested for Telemetry/MedSurg (observation). - Status is Observation. ls4 - Condition is Stable. - Problem is an acute exacerbation. - Symptoms are unchanged. Signatures: Dispatcher [employer] Alexandra Bacon RN RN Xavier Merritt MD MD kdr Mary Watson RN RN iw Jazlyn Morales RN RN aa5 Halima García RN RN ls4 Corrections: (The following items were deleted from the chart) 14:55 13:19 Hospitalization Ordered by Suleman Rodrigues for Observation. Preliminary diagnosis dw is Reanl Failure, Gout. Bed requested for Telemetry/MedSurg (observation). Status is Observation. Condition is Stable. Problem is an acute exacerbation. Symptoms are unchanged. kdr 15:03 14:55 05/18/2019 13:19 Hospitalization Ordered by Suleman Rodrigues for Observation. ls4 Preliminary diagnosis is Reanl Failure, Gout. Bed requested for Telemetry/MedSurg (observation). Status is Observation. Condition is Stable. Problem is an acute exacerbation. Symptoms are unchanged. dw 16:30 15:03 05/18/2019 13:19 Hospitalization Ordered by Suleman Rodrgiues for Observation. ls4 Preliminary diagnosis is Reanl Failure, Gout. Bed requested for Telemetry/MedSurg (observation). Status is Observation. Condition is Stable. Problem is an acute exacerbation. Symptoms are unchanged. ls4
--- NOTE | 2019-05-18 13:20 | ER ---
Nurse's Notes [facility] Name: Lamin Fitzpatrick III Age: 68 yrs Sex: Male : 1950 Arrival Date: 05/18/2019 Time: 11:51 Bed 6 Private MD: Diagnosis: Reanl Failure, Gout Presentation: 05/17 11:51 Chief complaint: EMS states: sent here for elevated creatinine of 3.13 that was aa5 collected this morning. group home nurse reports creatinine has been increasing since last month and reports near syncopal episode on . Last creatinine 05/16/19 was 2.51. Pt also reports increased gout pain. 11:51 Coronavirus screen: Proceed with normal triage. Patient denies a cough. Patient denies aa5 shortness of breath or difficulty breathing. Patient denies measured and/or subjective temperature greater than 100.4F prior to today's visit. Patient denies travel on a cruise ship or to a country the [facility] currently lists as an affected area. Patient denies contact with known and/or suspected case of COVID-19. Ebola Screen: Patient negative for fever greater than or equal to 101.5 degrees Fahrenheit, and additional compatible Ebola Virus Disease symptoms. Initial Sepsis Screen: Does the patient meet any 2 criteria? No. Patient's initial sepsis screen is negative. Does the patient have a suspected source of infection? No. Patient's initial sepsis screen is negative. Risk Assessment: Do you want to hurt yourself or someone else? Patient reports no desire to harm self or others. Onset of symptoms was May 18, 2019. 11:51 Method Of Arrival: EMS: [facility] aa5 11:51 Acuity: JODIE 3 aa5 11:51 Transition of care: patient was received from another setting of care (long-term care aa5 facility), [facility]. Triage Assessment: 16:13 General: Appears uncomfortable, unkempt, Behavior is fussy, restless. Neuro:. ls4 16:13 Neuro: Level of Consciousness is awake, alert, obeys commands, Oriented to person, ls4 place, time, situation, Sludge Filtration Attendant are weak on left Paralysis in left hand(s) arm(s) leg(s) Gait is ataxic, Speech is normal, Facial symmetry appears normal, Pupils are PERRLA. Respiratory: Airway is patent Respiratory effort is even, unlabored, Respiratory pattern is regular, Breath sounds are clear bilaterally. : Urine is clear. Historical: - Allergies: 11:51 Alteplase; aa5 - Home Meds: 13:01 colchicine 0.6 mg Oral cap 1 cap once daily [Active]; aspirin 81 mg Oral chew 1 tab aa5 once daily [Active]; allopurinol 100 mg Oral tab once daily [Active]; ezetimibe oral oral 10 mg once daily [Active]; metoprolol tartrate 12.5mg oral tab 2 times per day [Active]; Dulcolax (bisacodyl) 5 mg Oral TbEC twice a day [Active]; atorvastatin 10 mg oral tab once daily [Active]; Glucosamine oral 1500mg oral twice a day [Active]; Milk of Magnesia 400 mg/5 mL Oral susp 30 mL once daily [Active]; omeprazole 20 mg Oral cpDR once daily [Active]; Eliquis 5 mg oral tab 2 times per day [Active]; tramadol 50 mg Oral tab every 6 hours for Pain [Active]; Orleans 10-325 mg Oral tab every 6 hours for Pain [Active]; acetaminophen 650 mg oral TbER every 8 hours for Pain [Active]; - PMHx: 11:51 CAD; CHF; Gout; CVA; Chronic pain from gout; aa5 - PSHx: 11:51 CABG; aa5 - Immunization history:: Adult Immunizations unknown, Last tetanus immunization: unknown, Pneumococcal vaccine status is unknown, Flu vaccine status is unknown. - Social history:: Smoking status: unknown. Screenin:30 Abuse screen: Denies threats or abuse. Nutritional screening: No deficits noted. aa5 Tuberculosis screening: No symptoms or risk factors identified. Fall Risk Fall in past 12 months (25 points). Secondary diagnosis (15 points) CVA, IV access (20 points). Total Castillo Fall Scale indicates High Risk Score (45 or more points). Fall prevention measures have been instituted. Side Rails Up X 2 Placed Close to Nursing Station. Assessment: 11:51 General: Appears uncomfortable, Behavior is cooperative. Pain: Complains of pain in aa5 left hand, left wrist, kelly knees. Pain does not radiate. Pain currently is 10 out of 10 on a pain scale. Quality of pain is described as sharp, Pain began is chronic Is continuous, Aggravated by repositioning. Neuro: Level of Consciousness is awake, alert, obeys commands, Oriented to person, place, time, situation, Weakness in left arm(s) and bilateral legs. Cardiovascular: Heart tones S1 S2 present Rhythm is regular. Respiratory: Airway is patent Respiratory effort is even, unlabored, Respiratory pattern is regular, symmetrical. GI: No signs and/or symptoms were reported involving the gastrointestinal system. : No signs and/or symptoms were reported regarding the genitourinary system. EENT: No signs and/or symptoms were reported regarding the EENT system. Derm: Skin is pink, warm \T\ dry. Musculoskeletal: limited mobility due to pain and previous CVA as reported by patient. 13:50 Reassessment: Patient is alert, oriented x 3, equal unlabored respirations, skin aa5 warm/dry/pink. Patient states symptoms have not improved. MD notified of unchanged pain level. . 15:06 Reassessment: Patient and/or family updated on plan of care and expected duration. Pain ls4 level reassessed. Patient is alert, oriented x 3, equal unlabored respirations, skin warm/dry/pink. 15:08 Reassessment: verbal order received from Dr. Merritt for zofran and morphine, iw administered now, pt then cleaned of incontinence, linens changed. Vital Signs: 11:51 BP 104 / 49; Pulse 108; Resp 16 S; Temp 97.7(O); Pulse Ox 96% on R/A; Pain 10/10; aa5 16:10 BP 139 / 84; Pulse 107; Resp 16; Temp 97.6(O); Pulse Ox 97% on R/A; Pain 8/10; ls4 ED Course: 11:51 Patient arrived in ED. iw 11:51 Jazlyn Morales, RN is Primary Nurse. aa5 11:51 Arm band placed on. aa5 11:51 Patient has correct armband on for positive identification. aa5 11:54 Xavier Merritt MD is Attending Physician. kdr 11:58 Triage completed. aa5 13:18 Suleman Rodrigues is Hospitalizing Provider. kdr 14:00 campus monitor on. Pulse ox on. NIBP on. ls4 14:00 Repositioned patient. Cleaned of incontinence. Linen changed. ls4 14:00 No provider procedures requiring assistance completed. Inserted saline lock: 22 gauge ls4 in right wrist, using aseptic technique. Administered Medications: 12:30 Drug: HYDROcodone-acetaminophen 10 mg-325 mg 1 tabs Route: PO; iw 12:38 Not Given (Duplicate Order): Lortab (10 mg-500 mg) 1 tabs PO once; RASS on ADMIN: iw Combtv4, Very Agttd3, Agttd2, Rstlss1, AlertClm0, Drwsy-1, Lt Sdtn-2, Mod Sdtn-3, Dp Sdtn-4, UnArsble-5 15:00 Drug: morphine 4 mg Route: IVP; Site: right wrist; iw 15:00 Drug: Zofran (Ondansetron) 4 mg Route: IVP; Site: right wrist; iw Outcome: 13:19 Decision to Hospitalize by Provider. kdr 16:16 Admitted to Med/surg accompanied by tech, via stretcher, room 229, with oxygen, with ls4 chart, Report called to CONRAD WHYTE 16:16 Condition: stable 16:16 Instructed on the need for admit. 16:30 Patient left the ED. ls4 Signatures: Xavier Merritt MD MD kdr Mary Watson, PATO RN Jazlyn Morales RN RN aa5 Halima García RN RN ls4 Corrections: (The following items were deleted from the chart) 15:05 14:00 Inserted saline lock: ls4 ls4
--- NOTE | 2019-05-18 14:23 | P.HP ---
Certification for Inpatient Patient admitted to: Inpatient With expected LOS: >2 Midnights Practitioner: I am a practitioner with admitting privileges, knowledge of patient current condition, hospital course, and medical plan of care. Services: Services provided to patient in accordance with Admission requirements found in Title 42 Section 412.3 of the Code of Federal Regulations Patient History Date of Service: 05/18/19 Reason for admission: Renal failure History of Present Illness: 68-year-old gentleman with a history of ischemic cardiomyopathy, chronic systolic heart failure with low ejection fracture, history of chronic gout, patient on chronic anticoagulation was sent to the ED from the custodial due to rising creatinine. The patient report generalized pain and weakness. His baseline creatinine has increased from 0.9-3.2. Patient reports increased thirst. He denied any nausea or vomiting or diarrhea. He admitted to reduced oral intake. I do not see Lasix on his medication list. He has no leukocytosis or fever and not septic. The patient is admitted for further management. Allergies No Known Drug Allergies Allergy (Verified 03/12/15 00:17) Unknown No Known Allergies Allergy (Uncoded 11/03/15 14:30) Unknown Home Medications: Aspirin/Calcium Carbonate/Mag [Aspirin Buffered 325 mg Tab] 325 mg PO Q48H 03/12/15 Carvedilol 12.5 mg PO BID 03/12/15 Furosemide 20 mg PO DAILY 03/12/15 Lisinopril 5 mg PO DAILY 03/12/15 - Past Medical/Surgical History Diabetic: No -: 3 broken ribs- left side -: 2 heart stents -: Chronic systolic heart failure -: Ischemic cardiomyopathy -: Chronic gout -: Hyperlipidemia -: CABG - Family History Father -: Lung disease Mother -: Hypertension, Diabetes, Stroke - Social History Alcohol use: No CD- Drugs: No Caffeine use: Yes Review of Systems Other: Except as documented, all other systems reviewed and negative. Physical Examination - Physical Exam General: Alert, In no apparent distress HEENT: Normocephalic, PERRLA, Other (Dry oral mucosa), Sclerae nonicteric Neck: Supple, JVD not distended Respiratory: Clear to auscultation bilaterally, Normal air movement Cardiovascular: No edema, Regular rate/rhythm, Normal S1 S2 Capillary refill: <2 Seconds Gastrointestinal: Normal bowel sounds, Soft and benign, Non-distended, No tenderness Musculoskeletal: Erythema (Mild erythema bilateral lower legs), Other (b/L knee joints tender to palpation) Neurological: Normal strength at 5/5 x4 extr - Studies Laboratory Data (last 24 hrs) 05/18/19 12:30: WBC 9.1, Hgb 14.2, Hct 43.6, Plt Count 268 05/18/19 12:30: Sodium 133 L, Potassium 4.4, BUN 90 H, Creatinine 2.88 H, Glucose 110 H, Magnesium 3.3 H D, Total Bilirubin 0.8, AST 50 H, ALT 15, Alkaline Phosphatase 112 Assessment and Plan - Problems (Diagnosis) (1) Acute renal failure Current Visit: Yes Status: Acute (2) Chronic systolic heart failure Current Visit: Yes Status: Acute (3) Gout attack Current Visit: Yes Status: Acute (4) Chronic anticoagulation Current Visit: Yes Status: Acute - Plan Admit to the medical floor. Cautious IV hydration to avoid volume overload given history of advanced systolic heart failure. Check FeNa Start colchicine for acute gout. Renally dose Allopurinol. Consulted nephrology. Renally dose Eliquis. Consult to pharmacy to help dose medications. - Advance Directives Does patient have a Living Will: No Does patient have a Durable POA for Healthcare: No
[2019-05-18] MEDS ORDERED: ONDANSETRON 4 MG/2 ML VIAL ONE (15:04)
[2019-05-18] MEDS ORDERED: MORPHINE 4 MG/ML SYR ONE (15:04)
[2019-05-18] MEDS ORDERED: ONDANSETRON 4 MG/2 ML VIAL IV PRN (16:19)
[2019-05-18] MEDS: NA CHLORIDE 0.9% 1,000 ML IV SCH (16:54)
[2019-05-18] MEDS ORDERED: INFLUENZA VACCINE (for 3y+) 0.5 ML DOSE IMVAC ONE (18:00)
[2019-05-18] MEDS ORDERED: METOPROLOL TAR 25 MG TAB PO SCH (21:00)
[2019-05-18] MEDS: GLUCOSAMINE HCL 1500 MG PO SCH (21:00)
[2019-05-18] MEDS: METOPROLOL TAR 25 MG TAB PO SCH (22:16)
[2019-05-18] MEDS: COLCHICINE 0.6 MG TAB PO SCH (22:16)
[2019-05-18] MEDS: BISACODYL E.C. 5 MG TAB PO SCH (22:16)
[2019-05-18] MEDS: ATORVASTATIN 10 MG TAB PO SCH (22:16)
[2019-05-18] MEDS: APIXABAN 2.5 MG TABLET PO SCH (22:16)
[2019-05-19] MEDS: COLCHICINE 0.6 MG TAB PO SCH (02:49)
[2019-05-19] MEDS: NA CHLORIDE 0.9% 1,000 ML IV SCH ×4 (03:47→17:05)
[2019-05-19 06:17] LABS: Absolute Lymphocytes (CBC) 0.2 K/uL (0.7-4.9); Basophils % 0.2 % (0-1.3); Hematocrit 39.1 % (39.6-49.0); Lymphocytes % 3.2 % (15.3-44.8); MPV 8.5 fL (7.6-11.3); RBC Red Blood Cell Count 4.24 M/uL (4.33-5.43)
[2019-05-19 06:46] LABS: Albumin 2.2 g/dL (3.4-5.0); Magnesium 3.2 mg/dL (1.8-2.4); Phosphorus 4.5 mg/dL (2.5-4.9); Potassium 3.9 mmol/L (3.5-5.1); Thyroid Stimulating Hormone 1.22 uIU/mL (0.360-3.740)
[2019-05-19 07:26] LABS: Urine Protein/Creatinine Ratio 1.12 ratio (<0.15)
[2019-05-19 07:34] LABS: Urine Appearance CLOUDY; Urine Blood NEGATIVE (NEG); Urine Color YELLOW; Urine Glucose NEGATIVE (NEG); Urine Protein TRACE (NEG); Urine Urobilinogen 0.2 mg/dL (0.2-1.0)
[2019-05-19] MEDS: DOCUSATE NA 100 MG CAP PO SCH (08:13)
[2019-05-19] MEDS: HYDROCODONE/APAP 10/325 TAB PO PRN ×3 (08:13→21:08)
[2019-05-19] MEDS: APIXABAN 2.5 MG TABLET PO SCH ×2 (08:13→21:07)
[2019-05-19] MEDS: EZETIMIBE 10 MG TAB PO SCH (08:13)
[2019-05-19] MEDS: BISACODYL E.C. 5 MG TAB PO SCH ×2 (08:13→21:07)
[2019-05-19] MEDS: PANTOPRAZOLE 40MG TABLET PO SCH (08:14)
[2019-05-19] MEDS: ASPIRIN 81 MG CHEWABLE TABLET PO SCH (08:14)
[2019-05-19] MEDS: GLUCOSAMINE HCL 1500 MG PO SCH ×2 (08:14→21:00)
[2019-05-19 08:15] LABS: Urine Bilirubin NEGATIVE (NEG); Urine Microscopic Reflex ORDER UMIC
[2019-05-19] MEDS: METOPROLOL TAR 25 MG TAB PO SCH ×2 (08:15→21:07)
[2019-05-19 08:20] LABS: Urine Amorphous Sediment 2+ /HPF (NONE SEEN); Urine Bacteria <20 /HPF (NONE SEEN); Urine Culture Reflex Order NOT NEEDED; Urine RBC <5 /HPF (NONE SEEN)
[2019-05-19 08:40] LABS: Rheumatoid Factor NEG (NEG)
[2019-05-19] MEDS ORDERED: COLCHICINE 0.6 MG TAB PO SCH (09:00)
[2019-05-19] MEDS ORDERED: POTASSIUM CL SA 10 MEQ TAB PO ONE (09:00)
[2019-05-19] MEDS ORDERED: allopurinoL 100 MG TAB PO SCH (09:00)
--- NOTE | 2019-05-19 09:22 | RAD REPORT ---
EXAM DESCRIPTION: US - Renal Ultrasound-Complete - 05/19/2019 8:59 am CLINICAL HISTORY: GLORIA COMPARISON: No comparisons FINDINGS: The right kidney measures 10.8 x 5.0 x 4.0 cm. The left kidney measures approximately 10. 5 x 5.0 x 4.0 cm. Renal cortical thickness and echogenicity are normal range. No hydronephrosis or hernandez spicious renal mass. Partially filled bladder shows no suspicious finding. IMPRESSION: No hydronephrosis or suspicious renal mass. No other significant findings.
--- NOTE | 2019-05-19 12:45 | RAD REPORT ---
EXAM DESCRIPTION: RAD - Chest Single View - 05/19/2019 12:38 pm CLINICAL HISTORY: hx of CHF, rales on exam Chest pain. COMPARISON: Chest Single View dated 09/13/2018; CHEST SINGLE VIEW dated 03/11/2015; CHEST PA AND LAT 2 V IEW dated 12/10/2014 FINDINGS: Portable technique limits examination quality. Mild pulmonary edema is seen. The heart is mildly enlarged in size with sternotomy wires present. No displaced fractures. IMPRESSION: Mild CHF.
--- NOTE | 2019-05-19 14:23 | P.PN ---
Subjective Date of Service: 05/19/19 Chief Complaint: Renal failure Patient reports persistent pain all over especially the joint of his extremities, worse in his left extremities. He has been afebrile. Serum creatinine is responding and trending down with IV hydration. Physical Examination - Vital Signs Temperature: 97.5 F Blood Pressure: 108/68 Pulse: 62 Respirations: 20 Pulse Ox (%): 95 - Physical Exam General: Alert, In no apparent distress, Oriented x3 HEENT: Atraumatic, Mucous membr. moist/pink Neck: Supple Respiratory: Clear to auscultation bilaterally, Normal air movement Cardiovascular: Regular rate/rhythm, Normal S1 S2, Edema (Trace bilateral pitting lower extremity edema) Gastrointestinal: Normal bowel sounds, Soft and benign, Non-distended, No tenderness Musculoskeletal: Tenderness (Bilateral knees and wrists) Neurological: Other (Left-sided weakness.) Assessment And Plan - Current Problems (Diagnosis) (1) Acute renal failure Current Visit: Yes Status: Acute (2) Chronic systolic heart failure Current Visit: Yes Status: Acute (3) Gout attack Current Visit: Yes Status: Acute (4) Chronic anticoagulation Current Visit: Yes Status: Acute - Plan Cautious IV hydration to avoid volume overload given history of advanced systolic heart failure. Renal ultrasound results reviewed and unremarkable Continue Colchicine Vicodin p.r.n. for pain Renally dose Allopurinol. Nephrology input appreciated. Staging Technician to follow Continue Tonyaqugerardo.
--- NOTE | 2019-05-19 16:09 | CON ---
Reason For Admission: Patient was sent from alf for abnormal renal function test. Reason For Consult: GLORIA, . History Of Present Illness: The patient is unable to provide detailed history. Remainder history ob tained from the chart. This is a 68-year-old man with past medical history of coronary artery diseas e, CHF with low ejection fraction, history of CKD 3 with baseline creatinine of 1.5; hypertension on lisinopril. The patient was sent from alf for abnormal renal function tests. As per record s, his renal creatinine was 3.2 on 05/17. Patient was sent to the hospital for further workup. The patient denied. The patient stated he was feeling thirsty. He denied any chest palpitations, nausea , vomiting, diarrhea. The patient's medications did not show any NSAID intake. Also, no recent cont rast exposure. Patient was started on gentle hydration and his sodium and his creatinine improved to 2.2. Past Medical History: Congestive heart failure, hypertension, CKD 3. Past Surgical History: Left-sided , CABG. Allergies: NO KNOWN DRUG ALLERGIES. Family History: Father with lung cancer. Mother with hypertension, diabetes, and stroke. Review of Systems: As in HPI. Physical Examination: Vital Signs: Temperature 97.5, pulse was 62, blood pressure 108/68. General: Awake, alert, oriented, not in distress. Neck: Supple. No elevated JVD. Heart: Regular rate and rhythm. Normal S1, S2. Chest: Mild basilar rales. No wheezes. Abdomen: Soft and nontender. Extremities: No edema. Laboratory Data: Sodium 139, potassium 3.9, BUN 83, creatinine 2.2, uric acid of 10, magnesium 3.2, albumin 2.2. Assessment And Plan: 1.Acute on chronic kidney disease. Patient's creatinine is improving as well as his BUN. His ultra sound is negative for hydro. He has some proteinuria with UPC of 1.1. We will reduce IV fluid rate and we will order a chest x-ray. We will increase his allopurinol to 200 mg daily. 2.Hypertension. Blood pressure control. We will continue to hold lisinopril and Lasix. 3.History of CHF. Patient looks . We will continue to hold Lasix and I will reduce his I V fluid rate. I will order a chest x-ray. 4.History of DVT versus atrial fibrillation. His Eliquis dose adjusted to 2.5. 5. . I will reduce IV fluid rate. Total Time Spent: 55 minutes. KAILYN Voice ID: [id number] Report ID: [id number]
[2019-05-19] MEDS ORDERED: PNEUMOCOCCAL VACCINE 0.5 ML IMVAC ONE (17:00)
[2019-05-19] MEDS: ATORVASTATIN 10 MG TAB PO SCH (21:07)
[2019-05-20] MEDS: HYDROCODONE/APAP 10/325 TAB PO PRN ×2 (06:03→16:30)
[2019-05-20 07:49] LABS: Phosphorus 2.9 mg/dL (2.5-4.9); Potassium 4.2 mmol/L (3.5-5.1)
[2019-05-20] MEDS: EZETIMIBE 10 MG TAB PO SCH (08:33)
[2019-05-20] MEDS: DOCUSATE NA 100 MG CAP PO SCH (08:33)
[2019-05-20] MEDS: BISACODYL E.C. 5 MG TAB PO SCH ×2 (08:33→20:10)
[2019-05-20] MEDS: PANTOPRAZOLE 40MG TABLET PO SCH (08:33)
[2019-05-20] MEDS: ASPIRIN 81 MG CHEWABLE TABLET PO SCH (08:33)
[2019-05-20] MEDS: APIXABAN 2.5 MG TABLET PO SCH (08:33)
[2019-05-20] MEDS: METOPROLOL TAR 25 MG TAB PO SCH ×2 (08:33→20:10)
[2019-05-20] MEDS: GLUCOSAMINE HCL 1500 MG PO SCH ×2 (08:34→19:24)
[2019-05-20] MEDS: allopurinoL 100 MG TAB PO SCH (08:34)
--- NOTE | 2019-05-20 14:00 | P.PN ---
Subjective Date of Service: 05/20/19 Chief Complaint: Renal failure Patient renal function continue to improve with IV hydration. He has been afebrile. He stated his joint pains have improved gravity manager has significant pain in his left wrist. He has not been up from bed yet. He was receiving PT in the retirement. Physical Examination - Vital Signs Temperature: 97.1 F Blood Pressure: 127/72 Pulse: 101 Respirations: 16 Pulse Ox (%): 96 - Physical Exam General: In no apparent distress HEENT: Mucous membr. moist/pink Neck: Supple Respiratory: Clear to auscultation bilaterally, Normal air movement Cardiovascular: Regular rate/rhythm, Normal S1 S2, Edema (Mild bilateral pitting pedal edema) Gastrointestinal: Normal bowel sounds, Soft and benign, Non-distended, No tenderness Musculoskeletal: Tenderness (Bilateral knees, worse on the left.) Neurological: Other (Left-sided weakness) Assessment And Plan - Current Problems (Diagnosis) (1) Acute renal failure Current Visit: Yes Status: Acute (2) Chronic systolic heart failure Current Visit: Yes Status: Acute (3) Gout attack Current Visit: Yes Status: Acute (4) Chronic anticoagulation Current Visit: Yes Status: Acute - Plan Continue IV hydration to avoid volume overload given history of advanced systolic heart failure. Continue Colchicine and allopurinol Vicodin p.r.n. for pain Nephrology is following Continue Eliquis. PT to evaluate.
--- NOTE | 2019-05-20 18:39 | PN ---
Date of Progress Note: 05/20/2019 Subjective: Patient was admitted with acute kidney injury secondary to poor intake/overdiuresis, fou nd to have creatinine up to 2.2. Patient's baseline creatinine around 1.5. Patient after hydration, kidney function starting to improve back close to his baseline. Patient feeling better. Physical Examination: Vital Signs: When I saw the patient, blood pressure 127/72, pulse of 101, afebrile. Patient had goo d urine output of 700. Chest: Clear to auscultation. Heart: S1, S2 regular. Abdomen: Soft, nontender. Extremities: No edema. Laboratory Data: Sodium 141, potassium 4.2, bicarb 27, BUN 60, creatinine down to 1.5, calcium 9.1, uric acid of 10. Medications: Current medications the patient is on include atorvastatin, aspirin, Eliquis, metoprolo l 12.5, Zetia, Zofran, normal saline 50 per hour. Assessment And Plan: 1.Acute kidney injury secondary to prerenal, recovered, resolved. Looked to me normal volume. I am going to go ahead and discontinue IV fluid. 2.High uric acid. Patient was started on allopurinol. We will continue to monitor. 3.Proteinuria, nonnephrotic, mostly secondary to hypertension and nephrosclerosis. Serology still p ending. Ultrasound did not show any enlargement in the kidney. We will continue to monitor. We malathi l hold on adding any BRIAN inhibitor for the time being. 4.Hypertension, controlled optimal. Continue current medication. 5.Hypokalemia, resolved. 6.Marginal hyponatremia secondary to depletion, resolved. KURT Voice ID: [id number] Report ID: [id number]
[2019-05-20] MEDS: ATORVASTATIN 10 MG TAB PO SCH (20:10)
[2019-05-20] MEDS: APIXABAN 5 MG TABLET PO SCH (20:10)
[2019-05-21] MEDS: HYDROCODONE/APAP 10/325 TAB PO PRN ×4 (00:12→20:45)
[2019-05-21] MEDS: ACETAMINOPHEN 500 MG TAB PO PRN (02:52)
[2019-05-21 05:53] LABS: Albumin 2.1 g/dL (3.4-5.0); Phosphorus 2.9 mg/dL (2.5-4.9)
[2019-05-21 06:55] LABS: Potassium 4.2 mmol/L (3.5-5.1)
[2019-05-21] MEDS: GLUCOSAMINE HCL 1500 MG PO SCH ×2 (09:00→21:00)
--- NOTE | 2019-05-21 09:10 | P.DS ---
Admission Date: 05/18/19 Discharge Date: 05/21/19 (Hospitalist) Disposition: TRANSFER TO [facility] Discharge Condition: FAIR Reason for Admission: Renal failure Brief History of Present Illness: Patient is 68 years of age admitted with acute renal failure as had a stroke on the left side and was in the rehab unit Hospital Course: He did well his kidney function improved creatinine are back to normal at 1.12 no evidence of sepsis urinalysis negative at the time of discharge he was alert oriented x2 profound weakness on the left side from his stroke and was in the rehab unit denied any other complaints and [facility] to the [facility] renal ultrasound was negative seen by Nephrology may have been induced by Lasix which was Dc Vital Signs/Physical Exam: Temp Pulse Resp BP Pulse Ox 97.1 F 104 H 18 131/66 97 05/21/19 04:00 05/21/19 04:00 05/21/19 06:01 05/21/19 04:00 05/21/19 06:01 Laboratory Data at Discharge: WBC 7.3 K/uL (4.3-10.9) D 05/19/19 05:39 Hgb 12.8 g/dL (13.6-17.9) L 05/19/19 05:39 Hct 39.1 % (39.6-49.0) L 05/19/19 05:39 Plt Count 263 K/uL (152-406) 05/19/19 05:39 Sodium 144 mmol/L (136-145) 05/21/19 04:58 Potassium 4.2 mmol/L (3.5-5.1) 05/21/19 04:58 BUN 37 mg/dL (7-18) H D 05/21/19 04:58 Creatinine 1.12 mg/dL (0.55-1.3) 05/21/19 04:58 Glucose 127 mg/dL (74-106) H 05/21/19 04:58 Uric Acid 10.0 mg/dL (3.5-7.2) H D 05/19/19 05:39 Phosphorus 2.9 mg/dL (2.5-4.9) 05/21/19 04:58 Magnesium 3.2 mg/dL (1.8-2.4) H 05/19/19 05:39 Total Bilirubin 0.8 mg/dL (0.2-1.0) 05/18/19 12:30 AST 50 U/L (15-37) H 05/18/19 12:30 ALT 15 U/L (12-78) 05/18/19 12:30 Alkaline Phosphatase 112 U/L (45-117) 05/18/19 12:30 Home Medications: Acetaminophen [Tylenol] 650 mg PO Q8H PRN 05/18/19 Apixaban [Eliquis *] 5 mg PO BID 05/18/19 Aspirin Chewable [Aspirin Chewable*] 81 mg PO DAILY 05/18/19 Atorvastatin Calcium [Lipitor*] 10 mg PO BEDTIME 05/18/19 Colchicine 0.6 mg PO DAILY 05/18/19 Docusate Sodium [Dulcolax Stool Softener] 200 mg PO DAILY 05/18/19 Ezetimibe [Zetia*] 10 mg PO DAILY 05/18/19 Glucosamine HCl 1,500 mg PO BID 05/18/19 Hydrocodone Bit/Acetaminophen [Hydrocodon-Acetaminophn 10-325] 1 tab PO Q6H PRN 05/18/19 Mag Hydroxide 8% [Milk Of Magnesia*] 30 ml PO DAILY PRN 05/18/19 Metoprolol Tartrate [Lopressor*] 12.5 mg PO BID 05/18/19 Omeprazole 20 mg PO DAILY 05/18/19 Tramadol HCl [Ultram] 50 mg PO Q6H PRN 05/18/19 allopurinoL [Allopurinol] 100 mg PO DAILY 05/18/19 bisacodyL [Dulcolax*] 5 mg PO BID 05/18/19 Diet: Low sodium Activity: Ad erick
[2019-05-21] MEDS: ASPIRIN 81 MG CHEWABLE TABLET PO SCH (09:42)
[2019-05-21] MEDS: allopurinoL 100 MG TAB PO SCH (09:42)
[2019-05-21] MEDS: PANTOPRAZOLE 40MG TABLET PO SCH (09:42)
[2019-05-21] MEDS: DOCUSATE NA 100 MG CAP PO SCH (09:42)
[2019-05-21] MEDS: METOPROLOL TAR 25 MG TAB PO SCH ×2 (09:42→20:45)
[2019-05-21] MEDS: EZETIMIBE 10 MG TAB PO SCH (09:43)
[2019-05-21] MEDS: APIXABAN 5 MG TABLET PO SCH ×2 (09:43→21:00)
[2019-05-21] MEDS: BISACODYL E.C. 5 MG TAB PO SCH ×2 (09:44→20:44)
--- NOTE | 2019-05-21 13:37 | PN ---
Date of Progress Note: 05/21/2019 Subjective: Patient was admitted with acute kidney injury secondary to prerenal patient. After hydr ation, kidney function normalized. Patient today confused. Physical Examination: Vital Signs: Blood pressure 131/66, pulse of 100, afebrile. Chest: Clear to auscultation. Heart: S1, S2. Regular. Abdomen: Soft, nontender. Extremities: Trace edema. Neuro: Confused. Nonfocal. Current Medications: The patient on include: Aspirin, Eliquis, atorvastatin, Zetia, metoprolol, ballard toprazole, bisacodyl. Patient off IV fluid for the last 48 hours. Assessment And Plan: 1.Acute kidney injury secondary to prerenal, recovered, resolved, normalized kidney function of IV f luid. We will continue to monitor. Patient cleared from the renal standpoint for discharge planning . 2.Hypertension controlled, optimal. Continue current treatment. 3.Proteinuria, nonnephrotic secondary to hypertension, nephrosclerosis. Serology still pending. We will follow up as outpatient. 4.Hypokalemia, resolved. 5.Hyponatremia, resolved. Patient cleared from the renal standpoint for discharge planning to jaylene up in the office in 2 to 3 weeks. KURT Voice ID: [id number] Report ID: [id number]
[2019-05-21 14:45] LABS: Absolute Lymphocytes (CBC) 0.6 K/uL (0.7-4.9); Basophils % 0.9 % (0-1.3); Hematocrit 43.4 % (39.6-49.0); MPV 8.3 fL (7.6-11.3); RBC Red Blood Cell Count 4.76 M/uL (4.33-5.43)
[2019-05-21 15:04] LABS: Urine Appearance CLEAR; Urine Blood NEGATIVE (NEG); Urine Color YELLOW; Urine Glucose NEGATIVE (NEG); Urine Protein TRACE (NEG); Urine Specific Gravity 1.025 (1.005-1.030)
[2019-05-21 15:31] LABS: Urine Bilirubin NEGATIVE (NEG); Urine Microscopic Reflex NO UMIC
--- NOTE | 2019-05-21 16:24 | RAD REPORT ---
EXAM DESCRIPTION: CT - Head Brain Wo Cont - 05/21/2019 3:46 pm CLINICAL HISTORY: Alteration of awareness/confusion COMPARISON: 2019 TECHNIQUE: Computed axial tomography of the head was obtained. IV contrast was not requested. All CT scans are performed using dose optimization technique as appropriate and may include automated exposure control or mA/KV adjustment according to patient size. FINDINGS: An intracranial bleed is not seen . The ventricles are normal in caliber. No extra-axial fluid collection is noted. 4 centimeter low-density area has developed within the right basal ganglia extending into the right c grupo radiata and right centrum semiovale consistent with a relatively old infarction. Fluid within the sinuses/ mastoids is not seen. IMPRESSION: No acute intracranial abnormality is seen. If patient's symptoms persist MRI of the bra in would be recommended.
--- NOTE | 2019-05-21 16:52 | P.PN ---
Subjective Date of Service: 05/21/19 Chief Complaint: Altered mental status Patient is 68 years of age admitted with a renal failure she now has altered mental status according to longterm staff is usually fully oriented although patient is alert as only oriented to month not know what hospital he is in his very in usual Review of Systems Unremarkable General: Weakness Physical Examination - Vital Signs Temperature: 97.9 F Blood Pressure: 122/75 Pulse: 111 Respirations: 18 Pulse Ox (%): 97 - Physical Exam General: Alert, Oriented x1 Respiratory: Clear to auscultation bilaterally Cardiovascular: Regular rate/rhythm Gastrointestinal: Normal bowel sounds, Soft and benign Musculoskeletal: No clubbing Neurological: Other (Patient is alert as weakness on the left side from his prior stroke) Assessment & Plan - Problems (Diagnosis) (1) Altered mental status Current Visit: Yes Status: Acute Plan: Patient has altered mental status he has oriented tube month weakness times on the left side CT scan no evidence of an acute stroke according to the longterm resident he is alert oriented x3 no evidence of urinary tract infection or sepsis patient's vital signs oxygenation all stable continue to observe possible discharge tomorrow I have ordered p.o. thymine patient's white count is normal
[2019-05-21 20:34] LABS: HBsAG Nonreactive (Nonreactive)
[2019-05-21] MEDS: ATORVASTATIN 10 MG TAB PO SCH (20:44)
[2019-05-22] MEDS ORDERED: HYDROMORPHONE HCL 0.5 MG/0.5 ML INJ IV ONE (00:49)
[2019-05-22] MEDS: HYDROCODONE/APAP 10/325 TAB PO PRN ×3 (05:42→20:15)
[2019-05-22 06:31] LABS: Albumin 2.2 g/dL (3.4-5.0); Magnesium 1.8 mg/dL (1.8-2.4); Potassium 3.9 mmol/L (3.5-5.1)
[2019-05-22] MEDS ORDERED: MAGNESIUM OXIDE 400 MG TAB PO ONE (07:22)
[2019-05-22] MEDS ORDERED: MAGNESIUM SULFATE 1 gm IVPB 1 GM/100 ML BAG IV ONE (08:00)
--- NOTE | 2019-05-22 08:32 | P.PN ---
Subjective Date of Service: 05/22/19 Chief Complaint: Altered mental status Patient states he is feeling much better. He is reported to be confused yesterday. Today patient is interacting meaningfully, oriented x3. He has been afebrile. He states his joint pains have significantly improved Physical Examination - Vital Signs Temperature: 97.4 F Blood Pressure: 126/73 Pulse: 117 Respirations: 19 Pulse Ox (%): 91 - Physical Exam General: Alert, In no apparent distress, Oriented x3 HEENT: Mucous membr. moist/pink Neck: Supple Respiratory: Clear to auscultation bilaterally, Normal air movement Cardiovascular: No edema, Regular rate/rhythm, Normal S1 S2 Gastrointestinal: Normal bowel sounds, Soft and benign, Non-distended, No tenderness Musculoskeletal: No swelling Neurological: Other (Left-sided weakness) Assessment And Plan - Current Problems (Diagnosis) (1) Acute renal failure Current Visit: Yes Status: Acute (2) Chronic systolic heart failure Current Visit: Yes Status: Acute (3) Gout attack Current Visit: Yes Status: Acute (4) Chronic anticoagulation Current Visit: Yes Status: Acute - Plan Acute renal failure resolved. Continue Colchicine and allopurinol Patient is hardly using [place] for pain. Continue Eliquis. PT to evaluate. Speech is slightly slurred. Will get an MRI of brain due to reports of confusion.
[2019-05-22] MEDS: GLUCOSAMINE HCL 1500 MG PO SCH ×2 (09:00→20:12)
[2019-05-22] MEDS ORDERED: POTASSIUM CL SA 10 MEQ TAB PO ONE (09:00)
[2019-05-22] MEDS: allopurinoL 100 MG TAB PO SCH (09:16)
[2019-05-22] MEDS: EZETIMIBE 10 MG TAB PO SCH (09:16)
[2019-05-22] MEDS: DOCUSATE NA 100 MG CAP PO SCH (09:16)
[2019-05-22] MEDS: BISACODYL E.C. 5 MG TAB PO SCH ×2 (09:16→20:15)
[2019-05-22] MEDS: PANTOPRAZOLE 40MG TABLET PO SCH (09:16)
[2019-05-22] MEDS: ASPIRIN 81 MG CHEWABLE TABLET PO SCH (09:16)
[2019-05-22] MEDS: APIXABAN 5 MG TABLET PO SCH ×2 (09:17→20:15)
[2019-05-22] MEDS: METOPROLOL TAR 25 MG TAB PO SCH ×2 (09:17→20:19)
[2019-05-22] MEDS: ACETAMINOPHEN 500 MG TAB PO PRN (12:04)
[2019-05-22] MEDS: ATORVASTATIN 10 MG TAB PO SCH (20:15)
[2019-05-22 21:17] LABS: Hepatitis C Virus RNA (PCR)log <1.18 log IU/mL
--- NOTE | 2019-05-22 22:32 | PN ---
Date of Progress Note: 05/22/2019 Chief Complaint: Abnormal renal function test, acute kidney injury. Patient has nonoliguric urine o utput. Renal function is gradually improving. Patient denies new complaints. Physical Examination: Lungs: Diminished breath sounds at bases. Heart: S1-S2. Abdomen: Soft, benign. Extremities: Minimal edema. Impression And Plan: Acute on chronic kidney injury. Renal function is improving. Monitor electrol ytes and fluid balance. Patient had renal ultrasound done, which did not show obstructive uropathy. Avoid nephrotoxic medication. Monitor blood pressure closely and adjust medication to prevent hypot ension. Monitor electrolytes panel and kidney function. Patient has multiple medical problems. Patient will follow up with Nephrology outpatient for further workup. BRYSON/PRATIKL Voice ID: [id number] Report ID: [id number]
[2019-05-23] MEDS: HYDROCODONE/APAP 10/325 TAB PO PRN ×4 (01:45→22:29)
[2019-05-23 04:58] LABS: Albumin 2.2 g/dL (3.4-5.0); Magnesium 1.7 mg/dL (1.8-2.4); Phosphorus 4.2 mg/dL (2.5-4.9); Potassium 4.2 mmol/L (3.5-5.1)
[2019-05-23] MEDS ORDERED: MAGNESIUM SULFATE 1 gm IVPB 1 GM/100 ML BAG IV ONE ×2 (05:32→12:04)
[2019-05-23] MEDS: GLUCOSAMINE HCL 1500 MG PO SCH ×2 (09:00→21:00)
[2019-05-23] MEDS: DOCUSATE NA 100 MG CAP PO SCH (09:05)
[2019-05-23] MEDS: BISACODYL E.C. 5 MG TAB PO SCH ×2 (09:05→21:00)
[2019-05-23] MEDS: EZETIMIBE 10 MG TAB PO SCH (09:05)
[2019-05-23] MEDS: PANTOPRAZOLE 40MG TABLET PO SCH (09:05)
[2019-05-23] MEDS: ASPIRIN 81 MG CHEWABLE TABLET PO SCH (09:06)
[2019-05-23] MEDS: allopurinoL 100 MG TAB PO SCH (09:06)
[2019-05-23] MEDS: METOPROLOL TAR 25 MG TAB PO SCH ×2 (09:06→22:26)
[2019-05-23] MEDS: APIXABAN 5 MG TABLET PO SCH ×2 (09:07→22:25)
--- NOTE | 2019-05-23 14:24 | PN ---
Date of Progress Note: 05/23/2019 Subjective: Patient was admitted with altered mental status, acute kidney injury. Patient has acute kidney injury, was prerenal. After hydration, kidney function has been normalized. Physical Examination: Vital Signs: When I saw the patient, blood pressure 138/78, pulse of 100, afebrile. Patient had goo d urine output of 1 L. Chest: Clear to auscultation. Heart: S1, S2. Regular. Abdomen: Soft, nontender. Extremities: No edema. Laboratory Data: Sodium 143, potassium 4.2, bicarb 26, BUN 28, creatinine 1, GFR of 73, calcium 9.5, phosphorus 4.5, magnesium 1.8. H and H 13.9/43.4. Medications: Current medications the patient is on include: 1.Aspirin. 2.Atorvastatin. 3.Eliquis. 4.Metoprolol 12.5 b.i.d. 5.Zetia. 6.Bisacodyl. 7.Magnesium sulfate. 8.KCl. Assessment And Plan: 1.Acute kidney injury secondary to prerenal, recovered, resolved. 2.Hypokalemia, hypomagnesemia. We will supplement. 3.Congestive heart failure. Normal volume currently. Keep holding diuresis. 4.Slurred speech. Follow up with primary. ADE/CORI Voice ID: [id number] Report ID: [id number]
--- NOTE | 2019-05-23 14:54 | P.PN ---
Subjective Date of Service: 05/23/19 Chief Complaint: Altered mental status Subjective: No new changes (Patient continues to be confused. He has abnormal thought content.) Physical Examination - Vital Signs Temperature: 97.1 F Blood Pressure: 110/65 Pulse: 86 Respirations: 18 Pulse Ox (%): 96 - Physical Exam General: In no apparent distress, Confused HEENT: Atraumatic, Normocephalic Neck: Supple Respiratory: Clear to auscultation bilaterally, Normal air movement Cardiovascular: Normal pulses, Regular rate/rhythm, Normal S1 S2 Gastrointestinal: Normal bowel sounds, Hypoactive, Soft and benign, Non- distended Musculoskeletal: Swelling, Erythema, Other (Patient has edema and redness of the left knee. His left ankle is warm to touch.) Neurological: Normal strength at 5/5 x4 extr (Speech), Abnormal speech, Abnormal strength Urinary: Burkett catheter Assessment & Plan - Problems (Diagnosis) (1) Acute renal failure Current Visit: Yes Status: Acute (2) Altered mental status Current Visit: Yes Status: Acute (3) Chronic anticoagulation Current Visit: Yes Status: Acute (4) Chronic systolic heart failure Current Visit: Yes Status: Acute (5) Gout attack Current Visit: Yes Status: Acute (6) CHF (congestive heart failure) Onset Date: 03/12/15 Current Visit: No Status: Acute (7) Chest pain Onset Date: 03/12/15 Current Visit: No Status: Acute Physician Review: Patient Assessed, Agree with Above Assessment and Plan Physician Review Additional Text: Assessment Patient is a 68-year-old male with ischemic cardiomyopathy, chronic systolic heart failure with low ejection fracture, history of chronic gout, patient on chronic anticoagulation brought in from a detention for evaluation of abnormal renal function. His kidney function normalized with volume repletion. His hospital course was complicated by altered mental status. Patient was confused and having abnormal thought content. Metabolic encephalopathy GLORIA Gout arthritis PLAN: THERE IS A MRI OF THE BRAIN THE PENDING. THE MRI MACHINE IS CURRENTLY DOWN Continue colchicine and allopurinol PT/OT while in house Continue eliquis
[2019-05-23] MEDS: ATORVASTATIN 10 MG TAB PO SCH (22:25)
[2019-05-24] MEDS: MELATONIN 5 MG TABLET PO PRN ×2 (02:55→22:14)
[2019-05-24] MEDS: ACETAMINOPHEN 500 MG TAB PO PRN (02:55)
[2019-05-24] MEDS: HYDROCODONE/APAP 10/325 TAB PO PRN ×4 (04:45→22:15)
[2019-05-24 04:52] LABS: Magnesium 1.7 mg/dL (1.8-2.4); Potassium 3.8 mmol/L (3.5-5.1)
[2019-05-24] MEDS ORDERED: Magnesium Sulfate 2gm IVPB 2 G/50 ML BAG IV ONE (07:06)
[2019-05-24] MEDS: GLUCOSAMINE HCL 1500 MG PO SCH ×2 (07:40→21:00)
[2019-05-24] MEDS: APIXABAN 5 MG TABLET PO SCH ×2 (08:21→22:14)
[2019-05-24] MEDS: allopurinoL 100 MG TAB PO SCH (08:21)
[2019-05-24] MEDS: METOPROLOL TAR 25 MG TAB PO SCH ×2 (08:21→22:15)
[2019-05-24] MEDS: BISACODYL E.C. 5 MG TAB PO SCH ×2 (08:22→22:15)
[2019-05-24] MEDS: ASPIRIN 81 MG CHEWABLE TABLET PO SCH (08:22)
[2019-05-24] MEDS: DOCUSATE NA 100 MG CAP PO SCH (08:22)
[2019-05-24] MEDS: PANTOPRAZOLE 40MG TABLET PO SCH (08:23)
[2019-05-24] MEDS: EZETIMIBE 10 MG TAB PO SCH (08:25)
[2019-05-24] MEDS ORDERED: MAGNESIUM SULFATE 1 gm IVPB 1 GM/100 ML BAG IV ONE (09:00)
[2019-05-24] MEDS ORDERED: POTASSIUM 25 MEQ EFFERV TAB PO ONE (09:00)
--- NOTE | 2019-05-24 12:19 | P.PN ---
Subjective Date of Service: 05/24/19 Chief Complaint: Altered mental status Subjective: No new changes (Patient's mental status appears to be at baseline. His discharge was held pending MRI brain, which was ordered due to intermittent confusion.) Physical Examination - Vital Signs Temperature: 96.9 F Blood Pressure: 136/81 Pulse: 88 Respirations: 20 Pulse Ox (%): 98 - Physical Exam General: Alert, In no apparent distress HEENT: Atraumatic, Normocephalic, PERRLA Neck: JVD not distended Respiratory: Clear to auscultation bilaterally, Normal air movement Cardiovascular: No edema, Regular rate/rhythm, Normal S1 S2, No murmurs, Edema Gastrointestinal: Normal bowel sounds, Soft and benign, Non-distended Musculoskeletal: Other (mildly inflammed left knee and ankle. Tender to palpation. ) Neurological: Normal speech, Sensation intact, Normal affect, Other (left sided hemiparesis) Urinary: Burkett catheter Assessment & Plan - Problems (Diagnosis) (1) Acute renal failure Current Visit: Yes Status: Acute (2) Altered mental status Current Visit: Yes Status: Acute (3) Chronic anticoagulation Current Visit: Yes Status: Acute (4) Chronic systolic heart failure Current Visit: Yes Status: Acute (5) Gout attack Current Visit: Yes Status: Acute (6) CHF (congestive heart failure) Onset Date: 03/12/15 Current Visit: No Status: Acute (7) Chest pain Onset Date: 03/12/15 Current Visit: No Status: Acute Physician Review: Patient Assessed, Agree with Above Assessment and Plan Physician Review Additional Text: Assessment Patient is a 68-year-old male with ischemic cardiomyopathy S/P CABG, PCI, chronic systolic heart failure, CVA with residual left sided deficit, and on chronic anticoagulation brought in from a senior care for evaluation of abnormal renal function. He has a history of gout arthritis. His kidney function normalized with volume repletion. His hospital course was complicated by altered mental status. Patient was confused and having abnormal thought content during my evaluation on 05/22. There is a plan for MRI Brain but the m melody has been down. His mental status appears much improved today. Will re- assess again tomorrow and will discharge is stable. He has old left sided residual deficits, LUE > LLE. Metabolic encephalopathy GLORIA Gout arthritis CAD S/P CABG, PCI CVA with residual left sided deficits Systemic anticoagulation PLAN: MRI Brain once possible Continue monitoring mental status Discharge if neuro exam stable, with outpatient MRI Brain Continue apixaban, atorvastatin and eliquis. Continue colchicine and allopurinol PT/OT while in house Discharge to SNF if cleared
[2019-05-24] MEDS ORDERED: ACETAMINOPHEN 325 MG TABLET PO PRN (13:01)
[2019-05-24] MEDS ORDERED: TRAMADOL HCL 50 MG TAB PO PRN (13:01)
[2019-05-24] MEDS ORDERED: MAGNESIUM HYDROXIDE 8% 30 ML PO PRN (13:01)
--- NOTE | 2019-05-24 13:16 | PN ---
Date of Progress Note: 05/24/2019 History Of Present Illness: The patient was admitted with acute kidney injury secondary to prerenal. The patient, after hydration, had kidney function normalized. Physical Examination: Vital Signs: Blood pressure 136/81, pulse of 88. General: Afebrile. The patient had good urine output of 1000. CHEST: Clear to auscultation. Heart: S1, S2. Regular. Abdomen: Soft, nontender. Extremity: Trace edema. Laboratory Data: WBC 7.5, H and H 13.9/43.4, platelets 369. Sodium 141, potassium 3.8, bicarb 28, B UN 22, creatinine 1, GFR of 69, calcium 9.3, magnesium 1.7. Current Medications: The patient is on include: 1.Atorvastatin. 2.Zetia. 3.Metoprolol 12.5 b.i.d. 4.Eliquis. 5.Pantoprazole. 6.Bisacodyl. Assessment And Plan: 1.Acute kidney injury secondary to prerenal, recovered, resolved. Keep holding diuresis for the renetta e being. 2.Hypertension, controlled, optimal. Continue current treatment. Avoid BRIAN inhibitor or ARB for th e time being. Continue metoprolol. 3.Hypomagnesemia. We will supplement. 4.Congestive heart failure. Normal volume. Keep holding Lasix. KURT Voice ID: [id number] Report ID: [id number]
[2019-05-24] MEDS: ATORVASTATIN 10 MG TAB PO SCH (21:00)
[2019-05-25] MEDS: HYDROCODONE/APAP 10/325 TAB PO PRN ×2 (04:06→11:36)
[2019-05-25 05:03] LABS: Magnesium 1.7 mg/dL (1.8-2.4); Potassium 3.6 mmol/L (3.5-5.1)
[2019-05-25 08:25] VITALS: O2SAT 98
[2019-05-25] MEDS ORDERED: POTASSIUM 25 MEQ EFFERV TAB PO ONE (09:00)
[2019-05-25] MEDS: GLUCOSAMINE HCL 1500 MG PO SCH (09:00)
[2019-05-25] MEDS: MAGNESIUM SULFATE 1 gm IVPB 1 GM/100 ML BAG IV ONE ×2 (09:00→09:27)
[2019-05-25 09:04] VITALS: BP 121/83; TEMP 97.4
[2019-05-25] MEDS: DOCUSATE NA 100 MG CAP PO SCH (09:22)
[2019-05-25] MEDS: allopurinoL 100 MG TAB PO SCH (09:23)
[2019-05-25] MEDS: ASPIRIN 81 MG CHEWABLE TABLET PO SCH (09:23)
[2019-05-25] MEDS: PANTOPRAZOLE 40MG TABLET PO SCH (09:23)
[2019-05-25] MEDS: APIXABAN 5 MG TABLET PO SCH (09:24)
[2019-05-25] MEDS: METOPROLOL TAR 25 MG TAB PO SCH (09:24)
[2019-05-25] MEDS: BISACODYL E.C. 5 MG TAB PO SCH (09:25)
[2019-05-25] MEDS: EZETIMIBE 10 MG TAB PO SCH (09:25)
--- NOTE | 2019-05-25 09:26 | P.DS ---
Admission Date: 05/18/19 Discharge Date: 05/25/19 Disposition: TRANSFER TO [facility] HOME Discharge Condition: FAIR Reason for Admission: Altered mental status - Problems (1) Acute renal failure Current Visit: Yes Status: Acute (2) Altered mental status Current Visit: Yes Status: Acute (3) Chronic anticoagulation Current Visit: Yes Status: Acute (4) Chronic systolic heart failure Current Visit: Yes Status: Acute (5) Gout attack Current Visit: Yes Status: Acute (6) CHF (congestive heart failure) Onset Date: 03/12/15 Current Visit: No Status: Acute (7) Chest pain Onset Date: 03/12/15 Current Visit: No Status: Acute Brief History of Present Illness: Patient is a 68-year-old male with ischemic cardiomyopathy S/P CABG, PCI, chronic systolic heart failure, CVA with residual left sided deficit, and on chronic anticoagulation. He was brought in from a halfway for romelia luation of abnormal renal function. He has a history of gout arthritis. His kidney function normalized with volume repletion. Nephrology was consulted. His hospital course was complicated by altered mental status. Patient was confused and having abnormal thought content during my evaluation on 05/22. There was a plan for MRI Brain but the machine has been down. His mental status improved in the next few days and his neuro exam remained stable. As stated above, he has chronic left sided residual deficits with LUE > LLE. I will discharge him today with outpatient PT/OT at the halfway. Vital Signs/Physical Exam: Temp Pulse Resp BP Pulse Ox 97.4 F 93 H 15 121/83 98 05/25/19 08:00 05/25/19 08:00 05/25/19 08:00 05/25/19 08:00 05/25/19 08:00 General: Alert, In no apparent distress, Oriented x3, Cooperative HEENT: Atraumatic, Normocephalic Neck: Supple Respiratory: Clear to auscultation bilaterally, Normal air movement Cardiovascular: No murmurs, Other, Irregular heart rate/rhythm Gastrointestinal: Normal bowel sounds, Soft and benign, Non-distended Musculoskeletal: No clubbing, No swelling, No contractures, No erythema, Tenderness, Other (Mild tenderness at the ankle level, LLE) Integumentary: No rashes, No breakdown, No significant lesion, No tenderness/swelling, No erythema, No warmth Neurological: Normal speech, Sensation intact, Normal affect Laboratory Data at Discharge: WBC 7.5 K/uL (4.3-10.9) 05/21/19 14:28 Hgb 13.9 g/dL (13.6-17.9) 05/21/19 14:28 Hct 43.4 % (39.6-49.0) 05/21/19 14:28 Plt Count 369 K/uL (152-406) D 05/21/19 14:28 Sodium 139 mmol/L (136-145) 05/25/19 04:23 Potassium 3.6 mmol/L (3.5-5.1) 05/25/19 04:23 BUN 21 mg/dL (7-18) H 05/25/19 04:23 Creatinine 1.08 mg/dL (0.55-1.3) 05/25/19 04:23 Glucose 114 mg/dL (74-106) H 05/25/19 04:23 Uric Acid 10.0 mg/dL (3.5-7.2) H D 05/19/19 05:39 Phosphorus 4.2 mg/dL (2.5-4.9) 05/23/19 04:34 Magnesium 1.7 mg/dL (1.8-2.4) L 05/25/19 04:23 Total Bilirubin 0.8 mg/dL (0.2-1.0) 05/18/19 12:30 AST 50 U/L (15-37) H 05/18/19 12:30 ALT 15 U/L (12-78) 05/18/19 12:30 Alkaline Phosphatase 112 U/L (45-117) 05/18/19 12:30 Home Medications: Acetaminophen [Tylenol] 650 mg PO Q8H PRN 05/18/19 Apixaban [Eliquis *] 5 mg PO BID 05/18/19 Aspirin Chewable [Aspirin Chewable*] 81 mg PO DAILY 05/18/19 Atorvastatin Calcium [Lipitor*] 10 mg PO BEDTIME 05/18/19 Colchicine 0.6 mg PO DAILY 05/18/19 Docusate Sodium [Dulcolax Stool Softener] 200 mg PO DAILY 05/18/19 Ezetimibe [Zetia*] 10 mg PO DAILY 04/09/20 Glucosamine HCl 1,500 mg PO BID 05/18/19 Hydrocodone Bit/Acetaminophen [Hydrocodon-Acetaminophn 10325] 1 tab PO Q6H PRN 05/18/19 Mag Hydroxide 8% [Milk Of Magnesia*] 30 ml PO DAILY PRN 05/18/19 Metoprolol Tartrate [Lopressor*] 12.5 mg PO BID 05/18/19 Omeprazole 20 mg PO DAILY 05/18/19 Tramadol HCl [Ultram] 50 mg PO Q6H PRN 05/18/19 allopurinoL [Allopurinol] 100 mg PO DAILY 05/18/19 bisacodyL [Dulcolax*] 5 mg PO BID 05/18/19 Diet: Low sodium Activity: Ad erick
--- NOTE | 2019-05-25 11:39 | PN ---
Date of Progress Note: 05/25/2019 Subjective: The patient doing well, more awake today. Patient was admitted with acute kidney injury secondary to prerenal. After hydration, kidney function has been normalized. Physical Examination: Vital Signs: Blood pressure 121/83, pulse of 93. General: Patient had good urine output of 930, positive of 100. Chest: Clear to auscultation. Heart: S1, S2. Regular. Abdomen: Soft nontender. Extremities: No edema. Laboratory Data: H and H 13.9/43.3. Sodium 139, potassium 3.6, bicarb 29, BUN 21, creatinine 1, GFR of 68, calcium 9.2, magnesium 1.7. Current Medications: The patient is on include: 1.Aspirin. 2.Eliquis. 3.Atorvastatin. 4.Zetia. 5.Metoprolol 12.5 b.i.d. 6.Pantoprazole. 7.Magnesium. 8.KCl. 9.Hydrocodone. 10.Tramadol. Assessment And Plan: 1.Acute kidney injury secondary to prerenal, recovered, resolved. Off IV fluid for the last 48 hour s. We will keep holding IV fluid. Hold diuresis. 2.Hypokalemia, hypomagnesemia. We will supplement. 3.Hypertension, controlled, optimal. Continue current regimen. 4.Deconditioning. Continue PT, OT. 5.Congestive heart failure. Currently, normal volume upon discharge. We will consider resuming [place] 20 mg daily. ADE/CORI Voice ID: [id number] Report ID: [id number]
== END 2019-05-25 12:48 | DRG 682 ==
LOC: ER 11:47 → ERHOLD 14:32 → 2ND 16:12
PROVIDERS: ADMIT Internal Medicine; ATTEND Internal Medicine
DX: N17.9 Acute kidney failure, unspecified (principal); G93.41 Metabolic encephalopathy; I13.0 Hypertensive heart and chronic kidney disease with heart failure and stage 1 through stage 4 chronic kidney disease, or unspecified chronic kidney disease; I50.22 Chronic systolic (congestive) heart failure; E87.1 Hypo-osmolality and hyponatremia; I69.954 Hemiplegia and hemiparesis following unspecified cerebrovascular disease affecting left non-dominant side; E87.2 Acidosis; N18.3 Chronic kidney disease, stage 3 (moderate); I25.5 Ischemic cardiomyopathy; M10.9 Gout, unspecified; E78.5 Hyperlipidemia, unspecified; I25.10 Atherosclerotic heart disease of native coronary artery without angina pectoris; E87.6 Hypokalemia; E83.42 Hypomagnesemia; R47.81 Slurred speech; R80.9 Proteinuria, unspecified; Z79.01 Long term (current) use of anticoagulants; Z95.5 Presence of coronary angioplasty implant and graft
CPT/HCPCS: 36415; 70450; 71045; 76770; 80048; 80069; 80076; 81003; 81015; 82550; 82570; 83735; 83970; 84156; 84443; 84550; 85025; 85652; 86021; 86038; 86140; 86160; 86225; 86317; 86430; 86704; 86706; 87340; 87522; 94760; 96374; 96375; 97110; 97161; 97530; 99285; J1170; J2405; J3475; J7030

== ENCOUNTER 2022-07-15 15:49 | Emergency (ER) | payer OTHER ==
--- OUTSIDE RECORDS SUMMARY | 2022-07-15 16:06 | XMS REPORT | Continuity of Care Document ---
:1950 Author Organization [facility] t Address [address] [place] [address] [address] [place] [address] Care Team Providers Name Role Phone No, Pcp [facility] Primary Care Physician Unavailable DESTINY SANDY Attending Clinician Unavailable SHIRA BRANCH Attending Clinician Unavailable SHIRA BRANCH Attending Clinician Unavailable SANJUANA FIORE Attending Clinician Unavailable SANJUANA FIORE Attending Clinician Unavailable MICHELE MERAZ Attending Clinician Unavailable Bereket WHYTE, Sarai Nichols Attending Clinician Unavailable LOGAN FERNANDEZ Attending Clinician Unavailable Dino Baker MD Attending Clinician Logan Fernandez MD Attending Clinician Michele Meraz MD Attending Clinician DINO BAKER Attending Clinician Unavailable Lab, Ang - Db Attending Clinician Unavailable Doctor Unassigned, [place] Attending Clinician Unavailable Destiny Sandy MD Attending Clinician Dylan Gaona MD Attending Clinician [phone] ISABELLA MARIE Attending Clinician Unavailable Isabella Casas Attending Clinician [phone], [facility] Attending Clinician Unavailable Burton Garcia MD Attending Clinician BURTON GARCIA Attending Clinician Unavailable iDrk [place], Anil Attending Clinician ANIL STACY Attending Clinician Unavailable Citlaly David RN Attending Clinician Unavailable Moreno Dee MD Attending Clinician CHELO BARBA Attending Clinician Unavailable Jameson MELENDEZ, Chelo Attending Clinician Kayla [place], Henrry Attending Clinician Valentin [place], Arden Attending Clinician ARDEN HANSON Attending Clinician Unavailable Kody [place], Karmen Attending Clinician Zuri Avalos Attending Clinician ZURI MAO Attending Clinician Unavailable Thang [place] MAR[place], Jude Attending Clinician JUDE DESIR Attending Clinician Unavailable Nik Vargas MD Attending Clinician NIK VARGAS Attending Clinician Unavailable MORENO DEE Attending Clinician Unavailable Grace HINOJOSA, Mariela Attending Clinician Pat Dee MD Attending Clinician PAT DEE Attending Clinician Unavailable Luke MELENDEZ, [facility] Luisa Chowdary Attending Clinician [facility] LUIS[facility]ilo CHOWDARY Attending Clinician Unavailable Chepe Dubois DO Attending Clinician ERIC AVINA Attending Clinician Unavailable CHEPE DUBOIS Attending Clinician Unavailable JESUS ARCHER Attending Clinician Unavailable ZENY QUICK Attending Clinician Unavailable RADHA LAWSON Attending Clinician Unavailable LOGAN FERNANDEZ Admitting Clinician Unavailable Logan Fernandez MD Admitting Clinician MICHELE MERAZ Admitting Clinician Unavailable Michele Meraz MD Admitting Clinician DESTINY SANDY Admitting Clinician Unavailable ZENY QUICK Admitting Clinician Unavailable RADHA LAWSON Admitting Clinician Unavailable Payers Payer Name Policy Type Policy Number Effective Date Expiration Date S ource [facility] WELLMED [id number] 2021 00:00:00 WELLMED/[facility] DUAL [id number] 2021 COMP HMO D SNP 00:00:00 [facility] [place] STAR [id number] 2022 PLUS 00:00:00 [place] [id number] 2019 00:00:00 Problems Condition Condition Condition Status Onset Resolution Last Treating Co mments Source Name Details Category Date Date Treatment Clinician Date Paranoia Paranoia Disease Active Unive rs 6-03 ity of 00:00: [place] 00 Medical Branch Chronic Chronic Disease Active Univers systolic systolic 3-24 ity of CHF CHF 00:00: [place] (congestiv (congestiv 00 Me dical e heart e heart Branch failure), failure), NYHA class NYHA class 2 2 LBBB (left LBBB (left Disease Active Overview : Univers bundle bundle 2-22 Formattin ity of branch branch 00:00: g of this [place] block) block) 00 note Medical might be Branch different from the original. Added automatic ally from request for surgery [id number] PAF PAF Disease Active Univers (paroxysma (paroxysma 23 it y of l atrial l atrial 00:00: [place] fibrillati fibrillati 00 Me dical on) on) Branch Folliculit Folliculit Disease Active U nivers is is 1-25 ity of 00:00: [place] [facility] Abrasion Abrasion Disease Active Unive rs of right of right 1-25 ity of ear, ear, 00:00: [place] initial initial 00 Medical encounter encounter Bran ch Abnormal Abnormal Disease Active Overview: Un marcie liver liver 1-24 Formattin ity of function function 00:00: g of this Anthony as tests tests 00 note Medical might be Branch different from the original. 02/2020: New problem, patient had normal LFTs in 2019. 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 Chronic Chronic Disease Active 2020- Univers 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 00:00: [place] failure failure 00 Medical Branch Coronary Coronary Disease Active 2020- Unive rs artery artery 5-05 ity of disease disease 00:00: [place] involving involving 00 Medi ralph sun'aq sun'aq 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 Essential Essential Disease Active 2019- Uni vers hypertensi hypertensi 5-05 it y of on on 00:00: [place] [facility] 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 5-05 ity of multiple multiple 00:00: [place] sites sites 00 Medical Branch Hyperchole Hyperchole Disease Active 2019- U nivers sterolemia sterolemia 5-05 it y of 00:00: [place] 00 Medical Branch Unspecifie Unspecifie Disease Active 2019- U nivers d combined d combined 9-06 it y of systolic systolic 00:00: [place] (congestiv (congestiv 00 Me dical e) and e) and Branch diastolic diastolic (congestiv (congestiv e) heart e) heart failure failure History of History of Disease Active 2019 U nivers ischemic ischemic 8-07 ity of stroke stroke 00:00: [place] 00 Medical Branch Acute Acute Disease Recurre [facility] nce 8 [facility] stroke stroke 00:00: [facility] 00 Center Received Received Disease Active [facility] plasminoge plasminoge 00:00: Me dical n n 00 Center activator activator (t-PA) (t-PA) less than less than 24 hours 24 hours prior to prior to arrival arrival Allergies, Adverse Reactions, Alerts Allergy Allergy Status Severity Reaction(s) Onset Inactive Treating Comm ents Source Name Type Date Date Clinician SHELLFIS DRUG Active Med Unknown-Cmnt 2021-02 Un marcie H INGREDI 0-10 ity of DERIVED 00:00: [place] 00 Medical Branch Shellfis Drug Active Unknown - 2022-1 Unive rs h Allergy See comments 0-10 ity of Derived 00:00: [place] 00 Medical Branch METHYLPR DRUG Active High Unknown-Cmnt 2021-02 Un marcie EDNISOLO INGREDI 0-10 ity of NE 00:00: [place] 00 Medical Branch DIETHYLA DRUG Active Unknown-Cmnt 2021-02 Un marcie MINOETHY INGREDI 0-10 ity of L 00:00: [place] STEARATE 00 Medical Branch Diethyla Drug Active Unknown - 2021-02 Unive rs minoethy Allergy See comments 0-10 i ty of l 00:00: [place] Stearate 00 Medical Branch Methylpr Drug Active Unknown - 2021-02 Unive rs ednisolo Allergy See comments 0-10 i ty of ne 00:00: [place] 00 Medical Branch ALLOPURI DRUG Active High Other-Cmnt Univ ers NOL INGREDI 7-20 ity of 00:00: [place] 00 Medical Branch COLCHICI DRUG Active Other-Cmnt Univ ers NE INGREDI 7-20 ity of 00:00: 00 Medical Branch Allopuri Propensi Active Other - See Kidney U nivers nol ty to comments 7-20 function ity of adverse 00:00: [place] reaction 00 Medical s Branch Colchici Propensi Active Other - See Kidney U nivers ne ty to comments 7-20 function ity of adverse 00:00: decreased [place] reaction 00 Medical s Branch Allopuri Drug Active Other - See Kidney Uni vers nol Allergy comments 7-20 function ity o f 00:00: [place] 00 Medical Branch Iodine Propensi Active Unknown - Unive rs And ty to See comments 1-25 ity of Iodide adverse 00:00: [place] Containi reaction 00 Medica l ng s Branch Products IODINE Drug Active Unknown-Cmnt Univ ers AND Class 1-25 ity of IODIDE 00:00: [place] CONTAINI 00 Medical NG Branch PRODUCTS Iodine Propensi Active Unknown - Unive rs And ty to See comments 1-25 ity of Iodide adverse 00:00: [place] Containi reaction 00 Medica l ng s Branch Products Alteplas Propensi Active Other (See Pt does C [facility] e ty to Comments) 8-07 not [facility] adverse 00:00: recall Medical reaction 00 Center s ALTEPLAS DRUG Active Unknown-Cmnt 2019-0 Un marcie PATIÑOI 8-07 ity of 00:00: [place] 00 Medical Branch Family History Family Member Diagnosis Comments Start Date Stop Date Source Other [facility] Social History Social Habit Start Date Stop Date Quantity Comments Source History SDOH Social Unive rsity of Connections Get [place] Med ical Together Branch History SDOH Social Unive rsity of Connections Scientologist [place] [facility] History SDOH Social Unive rsity of Connections [place] [facility] Membership Branch History SDOH Social Unive rsity of Connections [place] [facility] Meetings Branch History SDOH Social 2022-07-13 2022-07-13 5 Unive rsity of Connections Phone 00:00:00 00:00:00 [place] M edical Branch History SDSD Social 2022-07-13 2022-07-13 7 Unive rsity of Connections Living 00:00:00 00:00:00 [place] [facility] History SDOH 2022-07-13 2022-07-13 4 University o f Physical Activity 00:00:00 00:00:00 [place] M edical DPW Branch History SDOH 2022-07-13 2022-07-13 3 University o f Physical Activity 00:00:00 00:00:00 [place] M edical MPS Branch History SDSD 2022-07-13 2022-07-13 5 University o f Financial 00:00:00 00:00:00 [place] [facility] History SDOH Food 2022-07-13 2022-07-13 1 Univers ity of Worry 00:00:00 00:00:00 [place] [facility] History SDOH Food 2022-07-13 2022-07-13 1 Univers ity of Scarcity 00:00:00 00:00:00 [place] [facility] History SDOH 2022-07-13 2022-07-13 2 University o f Transport Med 00:00:00 00:00:00 [place] Medic al Branch History SDOH 2022-07-13 2022-07-13 2 University o f Transport Non-Med 00:00:00 00:00:00 [place] M edical Branch History SDOH 2022-07-13 2022-07-13 2 University o f Housing Unable to 00:00:00 00:00:00 [place] M edical Pay Branch History SDOH 2022-07-13 2022-07-13 1 University o f Housing Places 00:00:00 00:00:00 [place] Medi ralph Lived Branch History [facility] 2022-07-13 2022-07-13 2 University o f Housing Homeless 00:00:00 00:00:00 [place] Me dical Last Year Branch Tobacco use and 2022-07-11 2022-07-11 Smokeless Universit y of exposure 00:00:00 00:00:00 tobacco non-user [facility] dical Branch Exposure to 2022-06-15 2022-06-25 Not sure [facility] SARS-CoV-2 (event) 00:00:00 14:15:00 [facility] Alcohol intake 2018-09-20 2018-09-20 [facility] (finding) History [facility] 2018-09-14 2018-09-[address] [facility] Alcohol Frequency 00:00:00 00:00:00 Medical Center History [facility] 2018-09-14 2018-09-[address] [facility] Alcohol Std Drinks 00:00:00 00:00:00 Medica l Center History [facility] 2018-09-14 2018-09-[address] [facility] Alcohol Binge 00:00:00 00:00:[address] Sex Assigned At [address] [facility] 00:[facility] 00[facility] Center Smoking Status Start Date Stop Date Source Never smoked tobacco [facility] Medications Ordered Filled Start Stop Current Ordering Indication Dosage Frequency Signature Comments Components Source Medication Medication Date Date Medication? Clinician (SIG) Name Name KCL 10 mEq Yes 10meq Take 1 Univ ers tablet 6-06 tablet by ity of 17:03: mouth in [place] [address] the Medical morning Branch and 1 tablet in the evening. docusate 2022-0 Yes 100mg Take 1 Univer s 100 mg 6-06 capsule by ity of capsule 17:03: mouth in [place] [address] the Medical morning. Branch KCL 10 mEq 2022-0 Yes 10meq Take 1 Univ ers tablet 6-06 tablet by ity of 17:03: mouth in [place] [address] the Medical morning Branch and 1 tablet in the evening. docusate 2022-0 Yes 100mg Take 1 Univer s 100 mg 6-06 capsule by ity of capsule 17:03: mouth in [place] [address] the Medical morning. Branch KCL 10 mEq 2022-0 Yes 10meq Take 1 Univ ers tablet 6-06 tablet by ity of 17:03: mouth in [place] [address] the morning Branch and 1 tablet in the evening. docusate 2023-0 Yes 100mg Take 1 Univer s 100 mg 6-06 capsule by ity of capsule 17:03: mouth in [place] [address] the morning. Branch KCL 10 mEq 2022-0 Yes 10meq Take 1 Univ ers tablet 6-06 tablet by ity of 17:03: mouth in [place] [address] the Medical morning Branch and 1 tablet in the evening. docusate 2023-0 Yes 100mg Take 1 Univer s 100 mg 6-06 capsule by ity of capsule 17:03: mouth in [place] [address] the morning. Branch apixaban 0 Yes 5mg 5 mg, Univers (ELIQUIS) 07-13 Oral, BID, ity of tablet 5 mg 13:00: First dose [place] 00 on [facility] 07/13/22 at Branch 0800, Until Discontinu ed, Routine
Indicatio ns: Non-Valvul ar Atrial Fibrillati on magnesium 2022-0 2022- No 4g 4 g, IV Univ ers sulfate in 07-13 Piggyback, it y of water 4 12:30: 14:[address] [place] [address] gram/50 mL 00 :00 mL/hr Medical (8 %) IV Administer Branc h Piggyback 4 over 120 g Minutes, ONCE, 1 dose, On [facility] 07/13/22 at 0730, Routine KCL 2022-0 2022- No 40meq 40 mEq, Univers (KLOR-CON 07-13- Oral, ity of M20) tablet 12:30: 14:00 ONCE, 1 [place] 40 mEq 00 :00 dose, On Medical [facility] 07/13/22 Branch at 0730, Routine metoprolol 2022-0 Yes 25mg 25 mg, Unive rs tartrate 07-13 Oral, BID, ity o f (LOPRESSOR) 01:00: First dose [place] tablet 25 00 on [facility] mg 07/12/22 at Branch 2000, Until Discontinu ed, Routine LORazepam 2022-0 2022- No .5mg 0.5 mg, Univ ers (ATIVAN) 07-12 Slow IV ity of injection 16:30: 17:02 Push, [place] 0.5 mg 00 :00 ONCE, 1 Medical dose, On Branch [facility] 07/12/22 at 1130, Routine sennosides- 2022-0 Yes 1{tbl} 1 tablet, Univers docusate 07-12 Oral, ity of sodium 14:00: DAILY, [place] (SENOKOT-S) 00 First dose Me dical 8.6-50 mg on [facility] per tablet 07/12/22 at 1 tablet 0900, Until Discontinu ed, Routine polyethylen 0 Yes 17g 17 g, Unive rs e glycol 07-12 Oral, ity of 3350 powder 14:00: DAILY, [place] 17 g 00 First dose Medical on [facility] 07/12/22 at 0900, Until Discontinu ed, Routine ezetimibe 0 Yes 10mg 10 mg, Univer s (ZETIA) 07-12 Oral, ity of tablet 10 14:00: DAILY, [place] mg 00 First dose Medical on [facility] 07/12/22 at 0900, Until Discontinu ed, Routine QUEtiapine 2022-0 Yes 25mg 25 mg, Unive rs (SEROQUEL) 07-12 Oral, BID, ity of tablet 25 13:30: First dose [place] mg 00 on [facility] 07/12/22 at Branch 0830, Until Discontinu ed, Routine magnesium 3-0 2023- No 400mg 400 mg, Uni vers oxide 07-12 Oral, ity of (MAG-OX 11:15: 11:41 ONCE, 1 [place] 400) tablet 00 :00 dose, On Medi ralph 400 mg [facility] 07/12/22 Branch at 0615, Routine KCL 2023-0 2023- No 20meq 20 mEq, Univers (KLOR-CON 07-12 Oral, ity of M20) tablet 11:15: 11:41 ONCE, 1 [place] 20 mEq 00 :00 dose, On Medical [facility] 07/12/22 Branch at 0615, Routine rosuvastati 2022-0 Yes 10mg 10 mg, Univ ers n (CRESTOR) 07-12 Oral, QHS, it y of tablet 10 02:00: First dose [place] mg 00 on [facility] 07/11/22 at Branch 2100, Until Discontinu ed, Routine HEPARIN 2022- No 4000U 4,000 Univers SODIUM 07-12 06-04 Units, IV ity of (PORCINE) 01:15: 02:32 Push, [place] 1,000 00 :00 ONCE, 1 Medical UNIT/ML dose, On Branch BOLUS ACS 07/11/22 ORDER SET at 2014, RERE heparin 2022- No 0U/h 0-2,150 Univer s 25,000 07-12 06-05 Units/hr ity of Units/250 01:13: 10:19 (0-21.5 [place] mL 31 :30 mL/hr), IV Medical (Premixed Infusion, Branc h Bag) in TITRATE, 0.45 % NS Parameters in Admin. Instr., Starting on 07/11/22 at 2012
In itiate dosing:&nb sp; & nbsp;&nbsp ; -Patient 83 kg or under: 900 Units/hr (Calculate d dose at 12 units/kg/h r) &n bsp; &nbs p; -Patient over 83 k,000 units/hr&n bsp;DO NOT Exceed the MAXIMUM 1,000 units/hr for initiation of heparin drip.&nbsp ; CAU TION - If LMWH given in ER, AVOID bolus and start next dose/drip 12 hrs after ER dosage.&nb sp; M ust program rate using programmab le infusion pump.&nbsp ; Latosha ck with the ordering provider first prior to any administra tion should the patient be on existing/a dditional anticoagul ant therapy. Rang e, Dosing and Testing: &nbs p;FOR [facility], [facility], AND [facility] ONLY &nbs p; - aPTT < 35: & nbsp;Bolus 5000 units, increase rate 300 units/hr&n bsp; - aPTT 35-44:&nbs p; Smith handy 3000 units, increase rate 200 units/hr&n bsp; - aPTT 45-54:&nbs p; In crease rate 100 units/hr&n bsp; - aPTT 55-85:&nbs p; NO CHANGE&nbs p; - aPTT 86-95:&nbs p; De crease rate 100 units/hr&n bsp; - aPTT 96-120:&nb sp; H old 30 minutes, decrease rate 150 units/hr&a mp;nbsp; - aPTT > 120: Hold 60 minutes, decrease rate 200 units/hr&n bsp; Check aPTT 6 hours after initiation , then Q6H after every change, aPTT Q12H once therapeuti c levels are reached.&n bsp; &nbs p; __ &n bsp;FOR [facility] ONLY - aPTT < 40: & nbsp;Bolus 5000 units, increase rate 300 units/hr&n bsp; - aPTT 40-49:&nbs p; Smith handy 3000 units, increase rate 200 units/hr&n bsp; - aPTT 50-59:&nbs p; In crease rate 100 units/hr&n bsp; - aPTT 60-85:&nbs p; NO CHANGE&nbs p; - aPTT 86-95:&nbs p; De crease rate 100 units/hr&n bsp; - aPTT 96-120:&nb sp; H old 30 minutes, decrease rate 150 units/hr&n bsp; - aPTT > 120: Hold 60 minutes, decrease rate 200 units/hr&n bsp; Check aPTT 6 hours after initiation , then Q6H after every change, aPTT Q12H once therapeuti c levels are reached.&n bsp; DO NOT ADJUST INITIAL BOLUS OR INITIAL INFUSION RATE.
traZODone 2022-0 Yes 50mg 50 mg, Univer s (DESYREL) 07-12 Oral, ity of tablet 50 01:05: QHSPRN, [place] mg 48 Starting Medical on [facility] 07/11/22 at 2005, Until Discontinu ed, Routine, Insomnia acetaminoph 2022-0 Yes 650mg 650 mg, Un marcie en 07-12 Oral, ity of (TYLENOL) 00:10: Q6HPRN, [place] tablet 650 26 Starting Medic al mg on [facility] 07/11/22 at 1910, Until Discontinu ed, Routine, Pain (scale 1-3) KCL 10 mEq 2022-0 Yes 10meq Take 1 Univ ers tablet 07-11 tablet by ity of 20:06: mouth in [place] 12 the Medical morning Branch and 1 tablet in the evening. docusate 2022-0 Yes 100mg Take 1 Univer s 100 mg 07-11 capsule by ity of capsule 19:55: mouth in [place] 01 the Medical morning. Branch LORazepam 2022-0 2023- No .5mg 0.5 mg, Univ ers (ATIVAN) 07-11 06-03 Slow IV ity of injection 19:45: 19:53 [place], [place] 0.5 mg 00 :00 ONCE, 1 Medical dose, On Branch [facility] 07/11/22 at 1445, STAT KCL 10 mEq 2022-0 Yes 10meq Take 1 Univ ers tablet - tablet by ity of 08:18: mouth in [place] 30 the Medical morning Branch and 1 tablet in the evening. KCL 10 mEq 2023-0 Yes 10meq Take 1 Univ ers tablet - tablet by ity of 08:18: mouth in [place] 30 the Medical morning Branch and 1 tablet in the evening. KCL 10 mEq 2023-0 Yes 10meq Take 1 Univ ers tablet -02 tablet by ity of 08:18: mouth in [place] 30 the Medical morning Branch and 1 tablet in the evening. KCL 10 mEq 2022-0 Yes 10meq Take 1 Univ ers tablet 6-02 tablet by ity of 08:18: mouth in [place] 30 the Medical morning Branch and 1 tablet in the evening. KCL 10 mEq 2022-0 Yes 10meq Take 1 Univ ers tablet 6-02 tablet by ity of 08:18: mouth in [place] 30 the Medical morning Branch and 1 tablet in the evening. LACTULOSE 2022-0 Yes [id number] TAKE 15 ML Univers 10 gram/15 6-02 BY MOUTH ity o f mL solution 00:00: TWICE [place] 00 DAILY Medical NEEDED FOR Branch CONSTIPATI ON ciprofloxac 2022-0 Yes [id number] 250mg Take 1 Univers in HCl 250 6-02 tablet by ity of mg tablet 00:00: mouth [place] 00 every 12 Medical (twelve) Branch hours. ciprofloxac 2022-0 Yes [id number] 250mg Take 1 Univers in HCl 250 6-02 tablet by ity of mg tablet 00:00: mouth [place] 00 every 12 Medical (twelve) Branch hours. ciprofloxac 2022-0 Yes [id number] 250mg Take 1 Univers in HCl 250 6-02 tablet by ity of mg tablet 00:00: mouth [place] 00 every 12 Medical (twelve) Branch hours. ciprofloxac 2022-0 Yes [id number] 250mg Take 1 Univers in HCl 250 6-02 tablet by ity of mg tablet 00:00: mouth [place] 00 every 12 Medical (twelve) Branch hours. ciprofloxac 2022-0 3- No [id number] 250mg Take 1 Univers in HCl 250 6-02 06-06 tablet by ity of mg tablet 00:00: 00:00 mouth [place] 00 :00 every 12 Medical (twelve) Branch hours. ELIQUIS 5 2022-0 Yes [id number] TAKE 1 U nivers mg tablet 5-22 TABLET BY ity o f 00:00: MOUTH IN [place] 00 THE Medical MORNING Branch AND IN THE EVENING FOR ATRIAL FIBRILLATI ON ELIQUIS 5 2022-0 Yes [id number] TAKE 1 U nivers mg tablet 5-22 TABLET BY ity o f 00:00: MOUTH IN [place] 00 THE Medical MORNING Branch AND IN THE EVENING FOR ATRIAL FIBRILLATI ON ELIQUIS 5 2022-0 Yes [id number] TAKE 1 U nivers mg tablet 5-22 TABLET BY ity o f 00:00: MOUTH IN [place] 00 THE Medical MORNING Branch AND IN THE EVENING FOR ATRIAL FIBRILLATI ON ELIQUIS 5 0 Yes [id number] TAKE 1 U nivers mg tablet 5-22 TABLET BY ity o f 00:00: MOUTH IN [place] 00 THE Medical MORNING Branch AND IN THE EVENING FOR ATRIAL FIBRILLATI ON ELIQUIS 5 0 Yes [id number] TAKE 1 U nivers mg tablet 5-22 TABLET BY ity o f 00:00: MOUTH IN [place] 00 THE Medical MORNING Branch AND IN THE EVENING FOR ATRIAL FIBRILLATI ON ELIQUIS 5 0 Yes [id number] TAKE 1 U nivers mg tablet 5-22 TABLET BY ity o f 00:00: MOUTH IN [place] 00 THE Medical MORNING Branch AND IN THE EVENING FOR ATRIAL FIBRILLATI ON ELIQUIS 5 0 Yes [id number] TAKE 1 U nivers mg tablet 5-22 TABLET BY ity o f 00:00: MOUTH IN [place] 00 THE Medical MORNING Branch AND IN THE EVENING FOR ATRIAL FIBRILLATI ON ELIQUIS 5 0 Yes [id number] TAKE 1 U nivers mg tablet 5-22 TABLET BY ity o f 00:00: MOUTH IN [place] 00 THE Medical MORNING Branch AND IN THE EVENING FOR ATRIAL FIBRILLATI ON ELIQUIS 5 2022-0 Yes [id number] TAKE 1 U nivers mg tablet 5-22 TABLET BY ity o f 00:00: MOUTH IN [place] 00 THE Medical MORNING Branch AND IN THE EVENING FOR ATRIAL FIBRILLATI ON ELIQUIS 5 0 Yes [id number] TAKE 1 U nivers mg tablet 5-22 TABLET BY ity o f 00:00: MOUTH IN [place] 00 THE Medical MORNING Branch AND IN THE EVENING FOR ATRIAL FIBRILLATI ON ELIQUIS 5 2022-0 Yes [id number] TAKE 1 U nivers mg tablet 5-22 TABLET BY ity o f 00:00: MOUTH IN [place] [address] THE Medical MORNING Branch AND IN THE EVENING FOR ATRIAL FIBRILLATI ON ELIQUIS 5 0 Yes [id number] TAKE 1 U nivers mg tablet 5-22 TABLET BY ity o f 00:00: MOUTH IN [place] 00 THE Medical MORNING Branch AND IN THE EVENING FOR ATRIAL FIBRILLATI ON lactulose 2022-0 Yes [id number] 15mL Take 15 mL Univers 10 gram/15 5-18 by mouth 2 ity of mL solution 00:00: (two) [place] 00 times Medical daily as Branch needed for Constipati on. lactulose 3-0 Yes [id number] 15mL Take 15 mL Univers 10 gram/15 5-18 by mouth 2 ity of mL solution 00:00: (two) [place] 00 times Medical daily as Branch needed for Constipati on. lactulose 3-0 Yes [id number] 15mL Take 15 mL Univers 10 gram/15 5-18 by mouth 2 ity of mL solution 00:00: (two) [place] 00 times Medical daily as Branch needed for Constipati on. lactulose 3-0 Yes [id number] 15mL Take 15 mL Univers 10 gram/15 5-18 by mouth 2 ity of mL solution 00:00: (two) [place] 00 times Medical daily as Branch needed for Constipati on. lactulose 3-0 Yes [id number] 15mL Take 15 mL Univers 10 gram/15 5-18 by mouth 2 ity of mL solution 00:00: (two) [place] 00 times Medical daily as Branch needed for Constipati on. lactulose 2022-0 3- No [id number] 15mL Take 15 mL [facility] 10 gram/15 5-18 06-02 by mouth 2 it y of mL solution 00:00: [place]two[place] :[place] Medical daily as Branch needed for Constipati on. lactulose 2022-0 3- No [id number] 15mL Take 15 mL [facility] 10 gram/15 5-18 06-02 by mouth 2 it y of mL solution 00:00: 00:[place] (two[place] :[place] times Medical daily as Branch needed for Constipati on. lactulose 2022-0 3- No [id number] 15mL Take 15 mL [facility] 10 gram/15 5-18 06-02 by mouth 2 it y of mL solution 00:00: 00:00 (two[place] 00 :[place] times Medical daily as Branch needed for Constipati on. tamsulosin 2022-0 3- No [id number] .4mg Take 1 [facility] 0.4 mg 24 5-18 05-18 capsule by ity of hr capsule 00:00: 00:00 mouth in [place] 00 :00 the Medical morning. Branch tamsulosin 2022-0 2022- No [id number] .4mg Take 1 [facility] 0.4 mg 24 5-18 05-18 capsule by ity of hr capsule 00:00: 00:00 mouth in [place] 00 :00 the Medical morning. Branch tamsulosin 2022-0 2022- No [id number] .4mg Take 1 [facility] 0.4 mg 24 5-18 05-18 capsule by ity of hr capsule 00:00: 00:00 mouth in [place] 00 :00 the Medical morning. Branch KCL 10 mEq 2022-0 Yes 10meq Take 1 Univ ers tablet 3-25 tablet by ity of 17:27: mouth in [place] [address] the Medical morning Branch and 1 tablet in the evening. docusate 2022-0 Yes 100mg Take 100 Univ ers (COLACE) 3-25 mg by ity of 100 mg 17:27: mouth [place] capsule 50 daily. Medical Branch KCL 10 mEq 2022-0 Yes 10meq Take 1 Univ ers tablet 3-25 tablet by ity of 17:27: mouth in [place] [address] the Medical morning Branch and 1 tablet in the evening. docusate 2022-0 Yes 100mg Take 100 Univ ers (COLACE) 3-25 mg by ity of 100 mg 17:27: mouth [place] capsule 50 daily. Medical Branch KCL 10 mEq 2022-0 Yes 10meq Take 1 Univ ers tablet 3-25 tablet by ity of 17:27: mouth in [place] [address] the Medical morning Branch and 1 tablet in the evening. docusate 3-0 Yes 100mg Take 100 Univ ers (COLACE) 3-25 mg by ity of 100 mg 17:27: mouth [place] capsule 50 daily. Medical Branch KCL 10 mEq 2022-0 Yes 10meq Take 1 Univ ers tablet 3-25 tablet by ity of 17:27: mouth in [place] [address] the Medical morning Branch and 1 tablet in the evening. docusate 3-0 Yes 100mg Take 100 Univ ers (COLACE) 3-25 mg by ity of 100 mg 17:27: mouth [place] capsule 50 daily. Medical Branch KCL 10 mEq 2022-0 Yes 10meq Take 1 Univ ers tablet 3-25 tablet by ity of 17:27: mouth in [place] [address] the Medical morning Branch and 1 tablet in the evening. docusate 3-0 Yes 100mg Take 100 Univ ers (COLACE) 3-25 mg by ity of 100 mg 17:27: mouth [place] capsule 50 daily. Medical Branch KCL 10 mEq 2022-0 Yes 10meq Take 1 Univ ers tablet 3-25 tablet by ity of 17:27: mouth in [place] 50 the Medical morning Branch and 1 tablet in the evening. docusate 2022-0 Yes 100mg Take 100 Univ ers (COLACE) 3-25 mg by ity of 100 mg 17:27: mouth [place] capsule 50 daily. Medical Branch KCL 10 mEq 2022-0 Yes 10meq Take 1 Univ ers tablet 3-25 tablet by ity of 17:27: mouth in [place] 50 the Medical morning Branch and 1 tablet in the evening. docusate 2022-0 Yes 100mg Take 100 Univ ers (COLACE) 3-25 mg by ity of 100 mg 17:27: mouth [place] capsule 50 daily. Medical Branch KCL 10 mEq 2022-0 Yes 10meq Take 1 Univ ers tablet 3-25 tablet by ity of 17:27: mouth in [place] 50 the Medical morning Branch and 1 tablet in the evening. docusate 2022-0 Yes 100mg Take 100 Univ ers (COLACE) 3-25 mg by ity of 100 mg 17:27: mouth [place] capsule 50 daily. Medical Branch KCL 10 mEq 2022-0 Yes 10meq Take 1 Univ ers tablet 3-25 tablet by ity of 17:27: mouth in [place] 50 the Medical morning Branch and 1 tablet in the evening. docusate 2022-0 Yes 100mg Take 100 Univ ers (COLACE) 3-25 mg by ity of 100 mg 17:27: mouth [place] capsule 50 daily. Medical Branch KCL 10 mEq 2022-0 Yes 10meq Take 1 Univ ers tablet 3-25 tablet by ity of 17:27: mouth in [place] 50 the Medical morning Branch and 1 tablet in the evening. docusate 3-0 Yes 100mg Take 100 Univ ers (COLACE) 3-25 mg by ity of 100 mg 17:27: mouth [place] capsule 50 daily. Medical Branch KCL 10 mEq 2022-0 Yes 10meq Take 1 Univ ers tablet 3-25 tablet by ity of 17:27: mouth in [place] 50 the Medical morning Branch and 1 tablet in the evening. docusate 2023-0 Yes 100mg Take 100 Univ ers (COLACE) 3-25 mg by ity of 100 mg 17:27: mouth [place] capsule 50 daily. Medical Branch KCL 10 mEq 2022-0 Yes 10meq Take 1 Univ ers tablet 3-25 tablet by ity of 17:27: mouth in [place] 50 the Medical morning Branch and 1 tablet in the evening. docusate 3-0 Yes 100mg Take 100 Univ ers (COLACE) 3-25 mg by ity of 100 mg 17:27: mouth [place] capsule 50 daily. Medical Branch KCL 10 mEq 2022-0 Yes 10meq Take 1 Univ ers tablet 3-25 tablet by ity of 17:27: mouth in [place] 50 the Medical morning Branch and 1 tablet in the evening. docusate 2022-0 Yes 100mg Take 100 Univ ers (COLACE) 3-25 mg by ity of 100 mg 17:27: mouth [place] capsule 50 daily. Medical Branch KCL 10 mEq 2022-0 Yes 10meq Take 1 Univ ers tablet 3-25 tablet by ity of 17:27: mouth in [place] 50 the Medical morning Branch and 1 tablet in the evening. docusate 2022-0 Yes 100mg Take 100 Univ ers (COLACE) 3-25 mg by ity of 100 mg 17:27: mouth [place] capsule 50 daily. Medical Branch KCL 10 mEq 2022-0 Yes 10meq Take 1 Univ ers tablet 3-25 tablet by ity of 17:27: mouth in [place] 50 the Medical morning Branch and 1 tablet in the evening. docusate 2022-0 Yes 100mg Take 100 Univ ers (COLACE) 3-25 mg by ity of 100 mg 17:27: mouth [place] capsule 50 daily. Medical Branch KCL 10 mEq 2022-0 Yes 10meq Take 1 Univ ers tablet 3-25 tablet by ity of 17:27: mouth in [place] 50 the Medical morning Branch and 1 tablet in the evening. docusate 3-0 Yes 100mg Take 100 Univ ers (COLACE) 3-25 mg by ity of 100 mg 17:27: mouth [place] capsule 50 daily. Medical Branch KCL 10 mEq 3-0 Yes 10meq Take 1 Univ ers tablet 3-25 tablet by ity of 17:27: mouth in [place] 50 the Medical morning Branch and 1 tablet in the evening. docusate 2023-0 Yes 100mg Take 100 Univ ers (COLACE) 3-25 mg by ity of 100 mg 17:27: mouth [place] capsule 50 daily. Medical Branch docusate 2022-0 Yes 100mg Take 100 Univ ers (COLACE) 3-25 mg by ity of 100 mg 17:27: mouth [place] capsule 50 daily. Medical Branch docusate 0 Yes 100mg Take 100 Univ ers (COLACE) 3-25 mg by ity of 100 mg 17:27: mouth [place] capsule 50 daily. Medical Branch docusate 2022-0 Yes 100mg Take 100 Univ ers (COLACE) 3-25 mg by ity of 100 mg 17:27: mouth [place] capsule 50 daily. Medical Branch docusate 0 Yes 100mg Take 100 Univ ers (COLACE) 3-25 mg by ity of 100 mg 17:27: mouth [place] capsule 50 daily. Medical Branch docusate 0 Yes 100mg Take 100 Univ ers (COLACE) 3-25 mg by ity of 100 mg 17:27: mouth [place] capsule 50 daily. Medical Branch ezetimibe Yes 10mg 10 mg, Univer s (ZETIA) 05-02 Oral, ity of tablet 10 14:00: DAILY, [place] mg 00 First dose Medical on [facility] 05/02/22 at 0900, Until Discontinu ed, Routine ezetimibe 2022- No 10mg 10 mg, Unive rs (ZETIA) 05-02 Oral, ity of tablet 10 14:00: 00:27 DAILY, [place] mg 00 :50 First dose Medical on [facility] 05/02/22 at 0900, Until Discontinu ed, Routine ezetimibe 2022- No 10mg 10 mg, Unive rs (ZETIA) 05-02 Oral, ity of tablet 10 14:00: 00:27 DAILY, [place] mg 00 :50 First dose Medical on [facility] 05/02/22 at 0900, Until Discontinu ed, Routine magnesium 2022- No 2g 2 g, IV Univ ers sulfate in 05-02 Piggyback, it y of water 2 12:00: 17:55 Administer [place] as gram/50 mL 00 :00 over 60 Medica l (4 %) Minutes, Branch infusion 2 ONCE, 1 g dose, On 05/02/22 at 0700, Routine magnesium 2022- No 2g 2 g, IV Univ ers sulfate in 05-02 Piggyback, it y of water 2 12:00: 17:55 Administer [place] gram/50 mL 00 :00 over 60 Medica l (4 %) Minutes, Branch infusion 2 ONCE, 1 g dose, On 05/02/22 at 0700, Routine magnesium 2022- No 2g 2 g, IV Univ ers sulfate in 05-02 Piggyback, it y of water 2 12:00: 17:55 Administer [place] gram/50 mL 00 :00 over 60 Medica l (4 %) Minutes, Branch infusion 2 ONCE, 1 g dose, On 05/02/22 at 0700, Routine acetaminoph 2022- No 1{tbl} 1 tablet, Univers en-codeine 05-02 Oral, ONCE it y of (TYLENOL 09:51: 09:59 NOW, 1 [place] #3) 300-30 00 :00 dose, On Medic al mg tablet 1 Sat Branch tablet 05/02/22 at 0500, Routine acetaminoph 2022- No 1{tbl} 1 tablet, Univers en-codeine 05-02 Oral, ONCE it y of (TYLENOL 09:51: 09:59 NOW, 1 [place] #3) 300-30 00 :00 dose, On Medic al mg tablet 1 Sat Branch tablet 05/02/22 at 0500, Routine acetaminoph 2022- No 1{tbl} 1 tablet, Univers en-codeine 05-02 Oral, ONCE it y of (TYLENOL 09:51: 09:59 NOW, 1 [place] #3) 300-30 00 :00 dose, On Medic al mg tablet 1 Sat Branch tablet 05/02/22 at 0500, Routine vancomycin 2022- No 1000mg 1,000 mg, Univers (VANCOCIN) 05-02 IV ity of 1,000 mg in 05:00: 18:58 Piggyback, [place] NaCl 0.9% 00 :14 Q12H ABX, Medic al (NS) 250 mL 2 doses, 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
Reas on for Anti-Infec tive: Surgical Prophylaxi s
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
Reas on for Anti-Infec tive: Surgical Prophylaxi s
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
Reas on for Anti-Infec tive: Surgical Prophylaxi s
Surgi ralph Prophylaxi s: Other (see Comments)< br>Duratio n of therapy: within 24 hours of surgery rosuvastati Yes 10mg 10 mg, Univ ers n (CRESTOR) 3 Oral, QHS, it y of tablet 10 02:00: First dose [place] mg 00 on Wed05/01/22 at Branch 2100, Until Discontinu ed, Routine rosuvastati 2022- No 10mg 10 mg, Uni vers n (CRESTOR) 05-0226 Oral, QHS, i ty of tablet 10 02:00: 00:27 First dose [place] mg 00 :50 on Wed Medical 05/01/22 at Branch 2100, Until Discontinu ed, Routine rosuvastati 2022- No 10mg 10 mg, Uni vers n (CRESTOR) 05-02 Oral, QHS, i ty of tablet 10 02:00: 00:27 First dose [place] mg 00 :50 on Wed [facility] 05/01/22 at Branch 2099, Until Discontinu ed, Routine traZODone 2022- No 50mg 50 mg, Unive rs (DESYREL) 05-02 Oral, ONCE ity of tablet 50 02:00: 02:19 NOW, 1 [place] mg 00 :00 dose, On Medical [facility] 05/01/22 at 211, Routine traZODone 2022- No 50mg 50 mg, Unive rs (DESYREL) 05-02 Oral, ONCE ity of tablet 50 02:00: 02:19 NOW, 1 [place] mg 00 :00 dose, On Medical [facility] 05/01/22 at 2115, Routine traZODone 2022- No 50mg 50 mg, Unive rs (DESYREL) 05-02 Oral, ONCE ity of tablet 50 02:00: 02:19 NOW, 1 [place] mg 00 :00 dose, On Medical [facility] 05/01/22 at 211, Routine metoprolol Yes 25mg 25 mg, Unive rs tartrate -25 Oral, BID, ity o f (LOPRESSOR) 01:00: First dose [place] tablet 25 00 on Wed Medical mg 05/01/22 at Branch 2000, Until Discontinu ed, Routine metoprolol 2022- No 25mg 25 mg, Univ ers tartrate 05-02 Oral, BID, ity of (LOPRESSOR) 01:00: 00:27 First dose [place] tablet 25 00 :50 on Wed Medical mg 05/01/22 at Branch 2000, Until Discontinu ed, Routine metoprolol 2022- No 25mg 25 mg, Univ ers tartrate 05-02 Oral, BID, ity of (LOPRESSOR) 01:00: 00:27 First dose [place] tablet 25 00 :50 on Wed Medical mg 05/01/22 at Branch 2000, Until Discontinu ed, Routine doxycycline 2022- Yes [id number] 100mg Take 1 [facility] hyclate 100 3-25 04-02 capsule by i ty of mg capsule 00:00: 04:59 mouth [place] 00 :00 every 12 Medical (twelve) Branch hours for 7 days. doxycycline 2022- Yes [id number] 100mg Take 1 [facility] hyclate 100 3-25 04-02 capsule by i ty of mg capsule 00:00: 04:59 mouth [place] 00 :00 every 12 Medical (twelve) Branch hours for 7 days. doxycycline 2022- Yes [id number] 100mg Take 1 [facility] hyclate 100 3-25 04-02 capsule by i ty of mg capsule 00:00: 04:59 mouth [place] 00 :00 every 12 Medical ([facility]) Branch hours for 7 days. doxycycline 2022- Yes [id number] 100mg Take 1 [facility] hyclate 100 3-25 04-02 capsule by i ty of mg capsule 00:00: 04:59 mouth [place] 00 :00 every 12 Medical (twelve) Branch hours for 7 days. doxycycline 2022- Yes [id number] 100mg Take 1 [facility] hyclate 100 3-25 04-02 capsule by i ty of mg capsule 00:00: 04:59 mouth [place] 00 :00 every 12 Medical (twelve) Branch hours for 7 days. doxycycline 2022- Yes [id number] 100mg Take 1 [facility] hyclate 100 3-25 04-02 capsule by i ty of mg capsule 00:00: 04:59 mouth [place] 00 :00 every 12 Medical (twelve) Branch hours for 7 days. acetaminoph Yes 650mg 650 mg, Un marcie en 324 Oral, ity of (TYLENOL) 21:26: Q6HPRN, [place] tablet 650 03 Starting Medic al mg on Fri Branch 05/01/22 at 1626, Until Discontinu ed, Routine, Pain (scale 1-3) acetaminoph 2022- No 650mg 650 mg, U nivers en 324 -26 Oral, ity of (TYLENOL) 21:26: 00:27 Q6HPRN, [place] tablet 650 03 :50 Starting Medic al mg on Wed Branch 05/01/22 at 1626, Until 05/02/22 at 1927, Routine, Pain (scale 1-3) acetaminoph 2022- No 650mg 650 mg, U nivers en 05-01 Oral, ity of (TYLENOL) 21:26: 00:27 Q6HPRN, [place] tablet 650 03 :50 Starting Medic al mg on Wed Branch 05/01/22 at 1626, Until 05/02/22 at 1927, Routine, Pain (scale 1-3) atorvastati 2022- No atorvastat Univers n 10 mg 05-01 in 10 mg ity of tablet 17:56: 00:00 tablet 04 :00 Medical Branch METOPROLOL 2022- No Metoprolol Univers TARTRATE 05-0124 Oral ity of ORAL 17:56: 00:00 (Tartrate) [place] 04 :00 once daily Medical active Branch allopurinoL 2022- No allopurino Univers 300 mg 05-01-24 l 300 mg ity of tablet 17:56: 00:00 tablet 04 :00 Medical Branch atorvastati 2022- No atorvastat Univers n 10 mg 05-01 in 10 mg ity of tablet 17:56: 00:00 tablet 04 :00 Medical Branch METOPROLOL 2022- No Metoprolol Univers TARTRATE 05-01 Oral ity of ORAL 17:56: 00:00 (Tartrate) [place] 04 :00 once daily Medical active Branch allopurinoL 2022- No allopurino Univers 300 mg 05-0124 l 300 mg ity of tablet 17:56: 00:00 tablet 04 :00 Medical Branch atorvastati 2022- No atorvastat Univers n 10 mg 05-0124 in 10 mg ity of tablet 17:56: 00:00 tablet 04 :00 Medical Branch METOPROLOL 2022- No Metoprolol Univers TARTRATE 05-01-24 Oral ity of ORAL 17:56: 00:00 (Tartrate) [place] 04 :00 once daily Medical active Branch allopurinoL 2022- No allopurino Univers 300 mg 05-01 l 300 mg ity of tablet 17:56: 00:00 tablet [place] 04 :00 Medical Branch iodixanol 2022- No ONCE INTRA U nivers (VISIPAQUE 05-01 PROCEDURE, it y of 320-100 mL) 17:47: 18:25 Starting [place] injection 35 :50 on Wed Medical 05/01/22 at Branch 1247, Until Wed05/01/22 at 1325, Routine, CV Intraproce dure iodixanol 2022- No ONCE INTRA U nivers (VISIPAQUE 05-01 PROCEDURE, it y of 320-100 mL) 17:47: 18:25 Starting [place] injection 35 :50 on Wed Medical 05/01/22 at Branch 1247, Until Wed05/01/22 at 1325, Routine, CV Intraproce dure lidocaine 2022- No ONCE INTRA U nivers 1% (PF) 05-01 PROCEDURE, ity o f (XYLOCAINE) 16:06: 18:25 Starting [place] injection 44 :50 on Fri Medical 05/01/22 at Branch 1106, Until Wed05/01/22 at 1325, Routine, CV Intraproce dure lidocaine 2022- No ONCE INTRA U nivers 1% (PF) 05-01 PROCEDURE, ity o f (XYLOCAINE) 16:06: 18:25 Starting [place] injection 44 :50 on Wed Medical 05/01/22 at Branch 1106, Until Wed05/01/22 at 1325, Routine, CV Intraproce dure diphenhydrA 2022- Yes 25mg Take 1 Uni vers MINE 25 mg 04-30 tablet by ity of tablet 00:00: 04:59 mouth [place] 00 :00 every 12 Medical (twelve) Branch hours for 3 doses. Start morning before procedure. Take last dose morning of procedure famotidine 2022- Yes 20mg Take 1 Univ ers 20 mg 04-30 tablet by ity of tablet 00:00: 04:59 mouth [place] 00 :00 every 12 Medical (twelve) Branch hours for 3 doses. Start morning before procedure. Take last dose morning of procedure diphenhydrA 2022-0 2022- Yes 25mg Take 1 Uni vers MINE 25 mg 04-30 tablet by ity of tablet 00:00: 04:59 mouth [place] 00 :00 every 12 Medical (twelve) Branch hours for 3 doses. Start morning before procedure. Take last dose morning of procedure famotidine 2022-2022- Yes 20mg Take 1 Univ ers 20 mg 04-30 tablet by ity of tablet 00:00: 04:59 mouth [place] 00 :00 every 12 Medical (twelve) Branch hours for 3 doses. Start morning before procedure. Take last dose morning of procedure diphenhydrA 2022-2022- Yes 25mg Take 1 Uni vers MINE 25 mg 04-30 tablet by ity of tablet 00:00: 04:59 mouth [place] 00 :00 every 12 Medical (twelve) Branch hours for 3 doses. Start morning before procedure. Take last dose morning of procedure famotidine 2022-2022- Yes 20mg Take 1 Univ ers 20 mg 04-30 tablet by ity of tablet 00:00: 04:59 mouth [place] 00 :00 every 12 Medical (twelve) Branch hours for 3 doses. Start morning before procedure. Take last dose morning of procedure diphenhydrA 2022-2022- Yes 25mg Take 1 Uni vers MINE 25 mg 04-30 tablet by ity of tablet 00:00: 04:59 mouth [place] 00 :00 every 12 Medical (twelve) Branch hours for 3 doses. Start morning before procedure. Take last dose morning of procedure famotidine 2022-2022- Yes 20mg Take 1 Univ ers 20 mg 04-30 tablet by ity of tablet 00:00: 04:59 mouth [place] 00 :00 every 12 Medical (twelve) Branch hours for 3 doses. Start morning before procedure. Take last dose morning of procedure diphenhydrA 2022-0 2022- Yes 25mg Take 1 Uni vers MINE 25 mg 04-30 tablet by ity of tablet 00:00: 04:59 mouth [place] 00 :00 every 12 Medical (twelve) Branch hours for 3 doses. Start morning before procedure. Take last dose morning of procedure famotidine 2022-0 3- Yes 20mg Take 1 Univ ers 20 mg 3-23 03-26 tablet by ity of tablet 00:00: 04:59 mouth [place] 00 :00 every 12 Medical (twelve) Branch hours for 3 doses. Start morning before procedure. Take last dose morning of procedure diphenhydrA 2022-0 2022- Yes 25mg Take 1 Uni vers MINE 25 mg 3-23 03-26 tablet by ity of tablet 00:00: 04:59 mouth [place] 00 :00 every 12 Medical (twelve) Branch hours for 3 doses. Start morning before procedure. Take last dose morning of procedure famotidine 2022-2022- Yes 20mg Take 1 Univ ers 20 mg 3-23 -26 tablet by ity of tablet 00:00: 04:59 mouth [place] 00 :00 every 12 Medical (twelve) Branch hours for 3 doses. Start morning before procedure. Take last dose morning of procedure diphenhydrA 2022-2022- Yes 25mg Take 1 Uni vers MINE 25 mg 3-30 04-26 tablet by ity of tablet 00:00: 04:59 mouth [place] 00 :00 every 12 Medical (twelve) Branch hours for 3 doses. Start morning before procedure. Take last dose morning of procedure famotidine 2022-2022- Yes 20mg Take 1 Univ ers 20 mg 3-30 04-26 tablet by ity of tablet 00:00: 04:59 mouth [place] 00 :00 every 12 Medical (twelve) Branch hours for 3 doses. Start morning before procedure. Take last dose morning of procedure predniSONE 2022-2022- Yes 40mg Take 2 Univ ers 20 mg 3-23 03-25 tablets by ity of tablet 00:00: 04:59 mouth [place] 00 :00 every 6 Medical (six) Branch hours for 4 doses. Start morning before procedure. Take last dose morning of procedure predniSONE 2022-0 2022- Yes 40mg Take 2 Univ ers 20 mg 3-23 03-25 tablets by ity of tablet 00:00: 04:59 mouth [place] 00 :00 every 6 Medical (six) Branch hours for 4 doses. Start morning before procedure. Take last dose morning of procedure predniSONE 2022-0 2022- Yes 40mg Take 2 Univ ers 20 mg 3-23 03-25 tablets by ity of tablet 00:00: 04:59 mouth [place] 00 :00 every 6 Medical (six) Branch hours for 4 doses. Start morning before procedure. Take last dose morning of procedure predniSONE 2023-0 2023- Yes 40mg Take 2 Univ ers 20 mg 3-23 03-25 tablets by ity of tablet 00:00: 04:59 mouth [place] 00 :00 every 6 Medical (six) Branch hours for 4 doses. Start morning before procedure. Take last dose morning of procedure predniSONE 3-0 2023- Yes 40mg Take 2 Univ ers 20 mg 3-23 03-25 tablets by ity of tablet 00:00: 04:59 mouth [place] 00 :00 every 6 Medical (six) Branch hours for 4 doses. Start morning before procedure. Take last dose morning of procedure predniSONE 3-0 2023- Yes 40mg Take 2 Univ ers 20 mg 3-23 03-25 tablets by ity of tablet 00:00: 04:59 mouth [place] 00 :00 every 6 Medical (six) Branch hours for 4 doses. Start morning before procedure. Take last dose morning of procedure predniSONE 3-0 2023- Yes 40mg Take 2 Univ ers 20 mg 3-23 03-25 tablets by ity of tablet 00:00: 04:59 mouth [place] 00 :00 every 6 Medical (six) Branch hours for 4 doses. Start morning before procedure. Take last dose morning of procedure diphenhydrA 2022-0 2022- No 25mg Take 1 Uni vers MINE 25 mg 3-23 03-24 tablet by ity of tablet 00:00: 00:00 mouth [place] 00 :00 every 12 Medical (twelve) Branch hours for 3 doses. Start morning before procedure. Take last dose morning of procedure famotidine 3-0 2022- No 20mg Take 1 Univ ers 20 mg 3-23 03-24 tablet by ity of tablet 00:00: 00:00 mouth [place] 00 :00 every 12 Medical (twelve) Branch hours for 3 doses. Start morning before procedure. Take last dose morning of procedure predniSONE 3-0 2023- No 40mg Take 2 Univ ers 20 mg 3-23 03-24 tablets by ity of tablet 00:00: 00:00 mouth [place] 00 :00 every 6 Medical (six) Branch hours for 4 doses. Start morning before procedure. Take last dose morning of procedure diphenhydrA 3-0 3- No 25mg Take 1 Uni vers MINE 25 mg 3-23 03-24 tablet by ity of tablet 00:00: 00:00 mouth [place] 00 :00 every 12 Medical (twelve) Branch hours for 3 doses. Start morning before procedure. Take last dose morning of procedure famotidine 2022-2022- No 20mg Take 1 Univ ers 20 mg 04-30-24 tablet by ity of tablet 00:00: 00:00 mouth [place] 00 :00 every 12 Medical (twelve) Branch hours for 3 doses. Start morning before procedure. Take last dose morning of procedure predniSONE 2022-0 2022- No 40mg Take 2 Univ ers 20 mg 04-30-24 tablets by ity of tablet 00:00: 00:00 mouth [place] 00 :00 every 6 Medical (six) Branch hours for 4 doses. Start morning before procedure. Take last dose morning of procedure diphenhydrA 2022-2022- No 25mg Take 1 Uni vers MINE 25 mg 04-30-24 tablet by ity of tablet 00:00: 00:00 mouth [place] 00 :00 every 12 Medical (twelve) Branch hours for 3 doses. Start morning before procedure. Take last dose morning of procedure famotidine 2022- No 20mg Take 1 Univ ers 20 mg 04-3024 tablet by ity of tablet 00:00: 00:00 mouth [place] 00 :00 every 12 Medical (twelve) Branch hours for 3 doses. Start morning before procedure. Take last dose morning of procedure predniSONE 2022-2022- No 40mg Take 2 Univ ers 20 mg 04-30-24 tablets by ity of tablet 00:00: 00:00 mouth [place] 00 :00 every 6 Medical (six) Branch hours for 4 doses. Start morning before procedure. Take last dose morning of procedure ezetimibe Yes [id number] 10mg Take 1 U nivers 10 mg 2-17 tablet by ity of tablet 00:00: mouth in [place] 00 the Medical morning. Branch traZODone Yes [id number] 50mg Take 1 Un marcie 50 mg 2-17 tablet by ity of tablet 00:00: mouth at [place] 00 bedtime as Medical needed for Branch Insomnia. mupirocin 2 Yes [id number] Apply to Univers % ointment 2-17 area(s) at ity of 00:00: bedtime as [place] [address] needed for Medical Rash. Branch rosuvastati 2023-0 Yes [id number] 10mg Take 1 Univers n 10 mg 2-17 tablet by ity of tablet 00:00: mouth at [place] 00 bedtime. Medical Branch ezetimibe 2022-0 Yes [id number] 10mg Take 1 U nivers 10 mg 2-17 tablet by ity of tablet 00:00: mouth in [place] 00 the Medical morning. Branch traZODone 2022-0 Yes [id number] 50mg Take 1 Un marcie 50 mg 2-17 tablet by ity of tablet 00:00: mouth at [place] 00 bedtime as Medical needed for Branch Insomnia. mupirocin 2 2022-0 Yes [id number] Apply to Univers % ointment 2-17 area(s) at ity of 00:00: bedtime as [place] [address] needed for Medical Rash. Branch rosuvastati 2022-0 Yes [id number] 10mg Take 1 Univers n 10 mg 2-17 tablet by ity of tablet 00:00: mouth at [place] [address] bedtime. Medical Branch ezetimibe 2022-0 Yes [id number] 10mg Take 1 U nivers 10 mg 2-17 tablet by ity of tablet 00:00: mouth in [place] the Medical morning. Branch traZODone 2022-0 Yes [id number] 50mg Take 1 [facility] 50 mg 2-17 tablet by [facility] tablet 00:00: mouth at [place] 00 bedtime as Medical needed for Branch Insomnia. mupirocin 2 2022-0 Yes [id number] Apply to [facility] % ointment 2-17 area(s) at [facility] 00:00: bedtime as [place] [address] needed for Medical Rash. Branch rosuvastati 2022-0 Yes [id number] 10mg Take 1 [facility] n 10 mg 2-17 tablet by [facility] tablet 00:00: mouth at [place] 00 bedtime. Medical Branch ezetimibe 2022-0 Yes [id number] 10mg Take 1 [facility] n[facility] 10 mg 2-17 tablet by [facility] tablet 00:00: mouth in [place] 00 the Medical morning. Branch traZODone 2022-0 Yes [id number] 50mg Take 1 [facility] 50 mg 2-17 tablet by [facility] tablet 00:00: mouth at [place] 00 bedtime as Medical needed for Branch Insomnia. mupirocin 2 2023-0 Yes [id number] Apply to [facility] % ointment 2-17 area(s) at [facility] 00:00: bedtime as [place] 00 needed for Medical Rash. Branch rosuvastati 0 Yes [id number] 10mg Take 1 [facility] n 10 mg 2-17 tablet by [facility] tablet 00:00: mouth at [place] [address] bedtime. Medical Branch ezetimibe 0 Yes [id number] 10mg Take 1 [facility] nivers 10 mg 2-17 tablet by [facility] tablet 00:00: mouth in [place] 00 the Medical morning. Branch traZODone 0 Yes [id number] 50mg Take 1 [facility] 50 mg 2-17 tablet by [facility] tablet 00:00: mouth at [place] 00 bedtime as Medical needed for Branch Insomnia. mupirocin 2 Yes [id number] Apply to [facility] % ointment 2-17 area(s) at [facility] 00:00: bedtime as [place] [address] needed for Medical Rash. Branch rosuvastati 0 Yes [id number] 10mg Take 1 [facility] n 10 mg 2-17 tablet by [facility] tablet 00:00: mouth at [place] [address] bedtime. Medical Branch ezetimibe 0 Yes [id number] 10mg Take 1 [facility] nivers 10 mg 2-17 tablet by [facility] tablet 00:00: mouth in [place] 00 the Medical morning. Branch traZODone 0 Yes [id number] 50mg Take 1 [facility] 50 mg 2-17 tablet by [facility] tablet 00:00: mouth at [place] 00 bedtime as Medical needed for Branch Insomnia. mupirocin 2 Yes [id number] Apply to [facility] % ointment 2-17 area(s) at [facility] 00:00: bedtime as [place] 00 needed for Medical Rash. Branch rosuvastati 0 Yes [id number] 10mg Take 1 [facility] n 10 mg 2-17 tablet by [facility] tablet 00:00: mouth at [place] [address] bedtime. Medical Branch ezetimibe 0 Yes [id number] 10mg Take 1 [facility] 10 mg 2-17 tablet by [facility] tablet 00:00: mouth in [place] 00 the Medical morning. Branch traZODone 0 Yes [id number] 50mg Take 1 [facility] 50 mg 2-17 tablet by [facility] tablet 00:00: mouth at [place] 00 bedtime as Medical needed for Branch Insomnia. mupirocin 2 Yes [id number] Apply to [facility] % ointment 2-17 area(s) at [facility] 00:00: bedtime as [place] 00 needed for Medical Rash. Branch rosuvastati 0 Yes [id number] 10mg Take 1 [facility] n 10 mg 2-17 tablet by [facility] tablet 00:00: mouth at [place] 00 bedtime. Medical Branch ezetimibe 0 Yes [id number] 10mg Take 1 [facility] 10 mg 2-17 tablet by [facility] tablet 00:00: mouth in [place] 00 the Medical morning. Branch traZODone Yes [id number] 50mg Take 1 [facility] 50 mg 2-17 tablet by [facility] tablet 00:00: mouth at [place] 00 bedtime as Medical needed for Branch Insomnia. mupirocin 2 Yes [id number] Apply to [facility] % ointment 2-17 area(s) at [facility] 00:00: bedtime as [place] [address] needed for Medical Rash. Branch rosuvastati Yes [id number] 10mg Take 1 [facility] n 10 mg 2-17 tablet by [facility] tablet 00:00: mouth at [place] 00 bedtime. Medical Branch ezetimibe 0 Yes [id number] 10mg Take 1 [facility] 10 mg 2-17 tablet by [facility] tablet 00:00: mouth in [place] 00 the Medical morning. Branch traZODone 0 Yes [id number] 50mg Take 1 [facility] 50 mg 2-17 tablet by [facility] tablet 00:00: mouth at [place] 00 bedtime as Medical needed for Branch Insomnia. mupirocin 2 Yes [id number] Apply to [facility] % ointment 2-17 area(s) at [facility] 00:00: bedtime as [place] 00 needed for Medical Rash. Branch rosuvastati 0 Yes [id number] 10mg Take 1 [facility] n 10 mg 2-17 tablet by [facility] tablet 00:00: mouth at [place] 00 bedtime. Medical Branch ezetimibe 0 Yes [id number] 10mg Take 1 [facility] 10 mg 2-17 tablet by [facility] tablet 00:00: mouth in [place] 00 the Medical morning. Branch traZODone 2022-0 Yes [id number] 50mg Take 1 [facility] 50 mg 2-17 tablet by [facility] tablet 00:00: mouth at [place] 00 bedtime as Medical needed for Branch Insomnia. mupirocin 2 2022-0 Yes [id number] Apply to [facility] % ointment 2-17 area(s) at [facility] 00:00: bedtime as [place] 00 needed for Medical Rash. Branch rosuvastati 2022-0 Yes [id number] 10mg Take 1 [facility] n 10 mg 2-17 tablet by [facility] tablet 00:00: mouth at [place] 00 bedtime. Medical Branch ezetimibe 2022-0 Yes [id number] 10mg Take 1 [facility] 10 mg 2-17 tablet by [facility] tablet 00:00: mouth in [place] the Medical morning. Branch traZODone 2022-0 Yes [id number] 50mg Take 1 [facility] 50 mg 2-17 tablet by [facility] tablet 00:00: mouth at [place] [address] bedtime as Medical needed for Branch Insomnia. mupirocin 2 2022-0 Yes [id number] Apply to [facility] % ointment 2-17 area(s) at [facility] 00:00: bedtime as [place] 00 needed for Medical Rash. Branch rosuvastati 2022-0 Yes [id number] 10mg Take 1 [facility] n 10 mg 2-17 tablet by [facility] tablet 00:00: mouth at [place] 00 bedtime. Medical Branch ezetimibe 2022-0 Yes [id number] 10mg Take 1 [facility] 10 mg 2-17 tablet by [facility] tablet 00:00: mouth in [place] 00 the Medical morning. Branch traZODone 2022-0 Yes [id number] 50mg Take 1 [facility] 50 mg 2-17 tablet by [facility] tablet 00:00: mouth at [place] 00 bedtime as Medical needed for Branch Insomnia. mupirocin 2 2022-0 Yes [id number] Apply to [facility] % ointment 2-17 area(s) at [facility] 00:00: bedtime as [place] [address] needed for Medical Rash. Branch rosuvastati 2022-0 Yes [id number] 10mg Take 1 [facility] n 10 mg 2-17 tablet by [facility] tablet 00:00: mouth at [place] 00 bedtime. Medical Branch ezetimibe 2022-0 Yes [id number] 10mg Take 1 [facility] 10 mg 2-17 tablet by [facility] tablet 00:00: mouth in [place] 00 the Medical morning. Branch traZODone 2022-0 Yes [id number] 50mg Take 1 [facility] 50 mg 2-17 tablet by [facility] tablet 00:00: mouth at [place] 00 bedtime as Medical needed for Branch Insomnia. mupirocin 2 2022-0 Yes [id number] Apply to [facility] % ointment 2-17 area(s) at [facility] 00:00: bedtime as [place] [address] needed for Medical Rash. Branch rosuvastati 2022-0 Yes [id number] 10mg Take 1 [facility] n 10 mg 2-17 tablet by [facility] tablet 00:00: mouth at [place] 00 bedtime. Medical Branch ezetimibe 2022-0 Yes [id number] 10mg Take 1 [facility] 10 mg 2-17 tablet by [facility] tablet 00:00: mouth in [place] the Medical morning. Branch traZODone 2022-0 Yes [id number] 50mg Take 1 [facility] 50 mg 2-17 tablet by [facility] tablet 00:00: mouth at [place] 00 bedtime as Medical needed for Branch Insomnia. mupirocin 2 2022-0 Yes [id number] Apply to [facility] % ointment 2-17 area(s) at [facility] 00:00: bedtime as [place] [address] needed for Medical Rash. Branch rosuvastati 2022-0 Yes [id number] 10mg Take 1 [facility] n 10 mg 2-17 tablet by [facility] tablet 00:00: mouth at [place] 00 bedtime. Medical Branch ezetimibe 2022-0 Yes [id number] 10mg Take 1 [facility] 10 mg 2-17 tablet by [facility] tablet 00:00: mouth in [place] the Medical morning. Branch traZODone 2022-0 Yes [id number] 50mg Take 1 [facility] 50 mg 2-17 tablet by [facility] tablet 00:00: mouth at [place] 00 bedtime as Medical needed for Branch Insomnia. mupirocin 2 2022-0 Yes [id number] Apply to [facility] % ointment 2-17 area(s) at [facility] of 00:00: bedtime as [place] 00 needed for Medical Rash. Branch rosuvastati 2022-0 Yes [id number] 10mg Take 1 [facility] n 10 mg 2-17 tablet by [facility] tablet 00:00: mouth at [place] [address] bedtime. Medical Branch ezetimibe 2022-0 Yes [id number] 10mg Take 1 [facility] 10 mg 2-17 tablet by [facility] tablet 00:00: mouth in [place] 00 the Medical morning. Branch traZODone 2022-0 Yes [id number] 50mg Take 1 [facility] 50 mg 2-17 tablet by [facility] tablet 00:00: mouth at [place] 00 bedtime as Medical needed for Branch Insomnia. mupirocin 2 2022-0 Yes [id number] Apply to [facility] % ointment 2-17 area(s) at [facility] 00:00: bedtime as [place] 00 needed for Medical Rash. Branch rosuvastati 2022-0 Yes [id number] 10mg Take 1 [facility] n 10 mg 2-17 tablet by [facility] tablet 00:00: mouth at [place] [address] bedtime. Medical Branch ezetimibe 2022-0 Yes [id number] 10mg Take 1 [facility] 10 mg 2-17 tablet by [facility] tablet 00:00: mouth in [place] the Medical morning. Branch traZODone 2022-0 Yes [id number] 50mg Take 1 [facility] 50 mg 2-17 tablet by [facility] tablet 00:00: mouth at [place] 00 bedtime as Medical needed for Branch Insomnia. mupirocin 2 2022-0 Yes [id number] Apply to [facility] % ointment 2-17 area(s) at [facility] 00:00: bedtime as [place] 00 needed for Medical Rash. Branch rosuvastati 2022-0 Yes [id number] 10mg Take 1 [facility] n 10 mg 2-17 tablet by [facility] tablet 00:00: mouth at [place] [address] bedtime. Medical Branch ezetimibe 2022-0 Yes [id number] 10mg Take 1 [facility] 10 mg 2-17 tablet by [facility] tablet 00:00: mouth in [place] 00 the Medical morning. Branch traZODone 2022-0 Yes [id number] 50mg Take 1 [facility] 50 mg 2-17 tablet by [facility] tablet 00:00: mouth at [place] 00 bedtime as Medical needed for Branch Insomnia. mupirocin 2 2022-0 Yes [id number] Apply to [facility] % ointment 2-17 area(s) at [facility] 00:00: bedtime as [place] 00 needed for Medical Rash. Branch rosuvastati 2022-0 Yes [id number] 10mg Take 1 [facility] n 10 mg 2-17 tablet by [facility] tablet 00:00: mouth at [place] 00 bedtime. Medical Branch ezetimibe 2022-0 Yes [id number] 10mg Take 1 [facility] 10 mg 2-17 tablet by [facility] tablet 00:00: mouth in [place] 00 the Medical morning. Branch traZODone 2022-0 Yes [id number] 50mg Take 1 [facility] 50 mg 2-17 tablet by [facility] tablet 00:00: mouth at [place] 00 bedtime as Medical needed for Branch Insomnia. mupirocin 2 2022-0 Yes [id number] Apply to [facility] % ointment 2-17 area(s) at [facility] 00:00: bedtime as [place] [address] needed for Medical Rash. Branch rosuvastati 2022-0 Yes [id number] 10mg Take 1 [facility] n 10 mg 2-17 tablet by [facility] tablet 00:00: mouth at [place] 00 bedtime. Medical Branch ezetimibe 2022-0 Yes [id number] 10mg Take 1 [facility] 10 mg 2-17 tablet by [facility] tablet 00:00: mouth in [place] 00 the Medical morning. Branch traZODone 2022-0 Yes [id number] 50mg Take 1 [facility] 50 mg 2-17 tablet by [facility] tablet 00:00: mouth at [place] 00 bedtime as Medical needed for Branch Insomnia. mupirocin 2 2022-0 Yes [id number] Apply to [facility] % ointment 2-17 area(s) at [facility] 00:00: bedtime as [place] 00 needed for Medical Rash. Branch rosuvastati 2022-0 Yes [id number] 10mg Take 1 [facility] n 10 mg 2-17 tablet by [facility] tablet 00:00: mouth at [place] [address] bedtime. Medical Branch ezetimibe 2022-0 Yes [id number] 10mg Take 1 [facility] 10 mg 2-17 tablet by [facility] tablet 00:00: mouth in [place] 00 the Medical morning. Branch traZODone 2022-0 Yes [id number] 50mg Take 1 [facility] 50 mg 2-17 tablet by [facility] tablet 00:00: mouth at [place] 00 bedtime as Medical needed for Branch Insomnia. mupirocin 2 2022-0 Yes [id number] Apply to [facility] % ointment 2-17 area(s) at [facility] 00:00: bedtime as [place] 00 needed for Medical Rash. Branch rosuvastati 2022-0 Yes [id number] 10mg Take 1 [facility] n 10 mg 2-17 tablet by [facility] tablet 00:00: mouth at [place] 00 bedtime. Medical Branch ezetimibe 2022-0 Yes [id number] 10mg Take 1 [facility] 10 mg 2-17 tablet by [facility] tablet 00:00: mouth in [place] 00 the Medical morning. Branch traZODone 2022-0 Yes [id number] 50mg Take 1 [facility] 50 mg 2-17 tablet by [facility] tablet 00:00: mouth at [place] 00 bedtime as Medical needed for Branch Insomnia. mupirocin 2 2022-0 Yes [id number] Apply to [facility] % ointment 2-17 area(s) at [facility] 00:00: bedtime as [place] 00 needed for Medical Rash. Branch rosuvastati 2022-0 Yes [id number] 10mg Take 1 [facility] n 10 mg 2-17 tablet by [facility] tablet 00:00: mouth at [place] 00 bedtime. Medical Branch ezetimibe 2022-0 Yes [id number] 10mg Take 1 [facility] 10 mg 2-17 tablet by [facility] tablet 00:00: mouth in [place] 00 the Medical morning. Branch traZODone 2022-0 Yes [id number] 50mg Take 1 [facility] 50 mg 2-17 tablet by [facility] tablet 00:00: mouth at [place] 00 bedtime as Medical needed for Branch Insomnia. mupirocin 2 2022-0 Yes [id number] Apply to [facility] % ointment 2-17 area(s) at [facility] 00:00: bedtime as [place] 00 needed for Medical Rash. Branch rosuvastati 2022-0 Yes [id number] 10mg Take 1 [facility] n 10 mg 2-17 tablet by [facility] tablet 00:00: mouth at [place] 00 bedtime. Medical Branch ezetimibe 2022-0 Yes [id number] 10mg Take 1 [facility] 10 mg 2-17 tablet by [facility] tablet 00:00: mouth in [place] 00 the Medical morning. Branch traZODone 2022-0 Yes [id number] 50mg Take 1 [facility] 50 mg 2-17 tablet by [facility] tablet 00:00: mouth at [place] 00 bedtime as Medical needed for Branch Insomnia. mupirocin 2 2022-0 Yes [id number] Apply to [facility] % ointment 2-17 area(s) at [facility] of 00:00: bedtime as [place] [address] needed for Medical Rash. Branch rosuvastati 2022-0 Yes [id number] 10mg Take 1 [facility] n 10 mg 2-17 tablet by [facility] tablet 00:00: mouth at [place] [address] bedtime. Medical Branch ezetimibe 2022-0 Yes [id number] 10mg Take 1 [facility] 10 mg 2-17 tablet by [facility] tablet 00:00: mouth in [place] the Medical morning. Branch traZODone 2022-0 Yes [id number] 50mg Take 1 [facility] 50 mg 2-17 tablet by [facility] tablet 00:00: mouth at [place] 00 bedtime as Medical needed for Branch Insomnia. mupirocin 2 2022-0 Yes [id number] Apply to [facility] % ointment 2-17 area(s) at [facility] 00:00: bedtime as [place] 00 needed for Medical Rash. Branch rosuvastati 2022-0 Yes [id number] 10mg Take 1 [facility] n 10 mg 2-17 tablet by [facility] tablet 00:00: mouth at [place] 00 bedtime. Medical Branch ezetimibe 2022-0 Yes [id number] 10mg Take 1 [facility] 10 mg 2-17 tablet by [facility] tablet 00:00: mouth in [place] 00 the Medical morning. Branch traZODone 2022-0 Yes [id number] 50mg Take 1 [facility] 50 mg 2-17 tablet by [facility] tablet 00:00: mouth at [place] 00 bedtime as Medical needed for Branch Insomnia. mupirocin 2 2022-0 Yes [id number] Apply to [facility] % ointment 2-17 area(s) at [facility] 00:00: bedtime as [place] [address] needed for Medical Rash. Branch rosuvastati 2022-0 Yes [id number] 10mg Take 1 [facility] n 10 mg 2-17 tablet by [facility] tablet 00:00: mouth at [place] [address] bedtime. Medical Branch ezetimibe 2022-0 Yes [id number] 10mg Take 1 [facility] 10 mg 2-17 tablet by [facility] tablet 00:00: mouth in [place] 00 the Medical morning. Branch traZODone 2022-0 Yes [id number] 50mg Take 1 [facility] 50 mg 2-17 tablet by [facility] tablet 00:00: mouth at [place] [address] bedtime as Medical needed for Branch Insomnia. mupirocin 2 2022-0 Yes [id number] Apply to [facility] % ointment 2-17 area(s) at [facility] 00:00: bedtime as [place] [address] needed for Medical Rash. Branch rosuvastati 2022-0 Yes [id number] 10mg Take 1 [facility] n 10 mg 2-17 tablet by [facility] tablet 00:00: mouth at [place] [address] bedtime. Medical Branch ezetimibe 2022-0 Yes [id number] 10mg Take 1 [facility] 10 mg 2-17 tablet by [facility] tablet 00:00: mouth in [place] the Medical morning. Branch traZODone 2022-0 Yes [id number] 50mg Take 1 [facility] 50 mg 2-17 tablet by [facility] tablet 00:00: mouth at [place] [address] bedtime as Medical needed for Branch Insomnia. mupirocin 2 2022-0 Yes [id number] Apply to [facility] % ointment 2-17 area(s) at [facility] of 00:00: bedtime as [place] [address] needed for Medical Rash. Branch rosuvastati 2022-0 Yes [id number] 10mg Take 1 [facility] n 10 mg 2-17 tablet by [facility] of tablet 00:00: mouth at [place] [address] bedtime. Medical Branch ezetimibe 2022-0 Yes [id number] 10mg Take 1 [facility] 10 mg 2-17 tablet by [facility] tablet 00:00: mouth in [place] 00 the Medical morning. Branch traZODone 2022-0 Yes [id number] 50mg Take 1 [facility] 50 mg 2-17 tablet by [facility] tablet 00:00: mouth at [place] [address] bedtime as Medical needed for Branch Insomnia. mupirocin 2 0 Yes [id number] Apply to [facility] % ointment 2-17 area(s) at [facility] of 00:00: bedtime as [place] [address] needed for Medical Rash. Branch rosuvastati 2022-0 Yes [id number] 10mg Take 1 [facility] n 10 mg 2-17 tablet by [facility] tablet 00:00: mouth at [place] [address] bedtime. Medical Branch ezetimibe 2022-0 Yes [id number] 10mg Take 1 [facility] 10 mg 2-17 tablet by [facility] tablet 00:00: mouth in [place] 00 the Medical morning. Branch traZODone 2022-0 Yes [id number] 50mg Take 1 [facility] 50 mg 2-17 tablet by [facility] tablet 00:00: mouth at [place] [address] bedtime as Medical needed for Branch Insomnia. mupirocin 2 0 Yes [id number] Apply to [facility] % ointment 2-17 area(s) at [facility] 00:00: bedtime as [place] [address] needed for Medical Rash. Branch rosuvastati 0 Yes [id number] 10mg Take 1 [facility] n 10 mg 2-17 tablet by [facility] of tablet 00:00: mouth at [place] [address] bedtime. Medical Branch ezetimibe 2022-0 Yes [id number] 10mg Take 1 [facility] 10 mg 2-17 tablet by [facility] tablet 00:00: mouth in [place] [address] the Medical morning. Branch traZODone 2022-0 Yes [id number] 50mg Take 1 [facility] 50 mg 2-17 tablet by [facility] tablet 00:00: mouth at [place] [address] bedtime as Medical needed for Branch Insomnia. mupirocin 2 0 Yes [id number] Apply to [facility] % ointment 2-17 area(s) at [facility] of 00:00: bedtime as [place] [address] needed for Medical Rash. Branch rosuvastati 2022-0 Yes [id number] 10mg Take 1 [facility] n 10 mg 2-17 tablet by [facility] tablet 00:00: mouth at [place] [address] bedtime. Medical Branch ezetimibe 2022-0 Yes [id number] 10mg Take 1 [facility] 10 mg 2-17 tablet by [facility] tablet 00:00: mouth in [place] the Medical morning. Branch traZODone 2022-0 Yes [id number] 50mg Take 1 [facility] 50 mg 2-17 tablet by [facility] tablet 00:00: mouth at [place] 00 bedtime as Medical needed for Branch Insomnia. mupirocin 2 2022-0 Yes [id number] Apply to [facility] % ointment 2-17 area(s) at [facility] 00:00: bedtime as [place] [address] needed for Medical Rash. Branch rosuvastati 2022-0 Yes [id number] 10mg Take 1 [facility] n 10 mg 2-17 tablet by [facility] tablet 00:00: mouth at [place] [address] bedtime. Medical Branch ezetimibe 2022-0 Yes [id number] 10mg Take 1 [facility] 10 mg 2-17 tablet by [facility] tablet 00:00: mouth in [place] the Medical morning. Branch traZODone 2022-0 Yes [id number] 50mg Take 1 [facility] 50 mg 2-17 tablet by [facility] tablet 00:00: mouth at [place] 00 bedtime as Medical needed for Branch Insomnia. mupirocin 2 2022-0 Yes [id number] Apply to [facility] % ointment 2-17 area(s) at [facility] 00:00: bedtime as [place] [address] needed for Medical Rash. Branch rosuvastati 2022-0 Yes [id number] 10mg Take 1 [facility] n 10 mg 2-17 tablet by [facility] of tablet 00:00: mouth at [place] [address] bedtime. Medical Branch ezetimibe 2022-0 Yes [id number] 10mg Take 1 [facility] 10 mg 2-17 tablet by [facility] tablet 00:00: mouth in [place] the Medical morning. Branch traZODone 2022-0 Yes [id number] 50mg Take 1 [facility] 50 mg 2-17 tablet by [facility] tablet 00:00: mouth at [place] 00 bedtime as Medical needed for Branch Insomnia. mupirocin 2 2022-0 Yes [id number] Apply to [facility] % ointment 2-17 area(s) at [facility] 00:00: bedtime as [place] [address] needed for Medical Rash. Branch rosuvastati 2022-0 Yes [id number] 10mg Take 1 [facility] n 10 mg 2-17 tablet by [facility] tablet 00:00: mouth at [place] 00 bedtime. Medical Branch ezetimibe 2022-0 Yes [id number] 10mg Take 1 [facility] 10 mg 2-17 tablet by [facility] tablet 00:00: mouth in [place] 00 the Medical morning. Branch traZODone 2022-0 Yes [id number] 50mg Take 1 [facility] 50 mg 2-17 tablet by [facility] tablet 00:00: mouth at [place] 00 bedtime as Medical needed for Branch Insomnia. mupirocin 2 2022-0 Yes [id number] Apply to [facility] % ointment 2-17 area(s) at [facility] 00:00: bedtime as [place] 00 needed for Medical Rash. Branch rosuvastati 2022-0 Yes [id number] 10mg Take 1 [facility] n 10 mg 2-17 tablet by [facility] tablet 00:00: mouth at [place] 00 bedtime. Medical Branch ezetimibe 2022-0 Yes [id number] 10mg Take 1 [facility] 10 mg 2-17 tablet by [facility] tablet 00:00: mouth in [place] 00 the Medical morning. Branch traZODone 2022-0 Yes [id number] 50mg Take 1 [facility] 50 mg 2-17 tablet by [facility] tablet 00:00: mouth at [place] 00 bedtime as Medical needed for Branch Insomnia. mupirocin 2 2022-0 Yes [id number] Apply to [facility] % ointment 2-17 area(s) at [facility] 00:00: bedtime as [place] 00 needed for Medical Rash. Branch rosuvastati 2022-0 Yes [id number] 10mg Take 1 [facility] n 10 mg 2-17 tablet by [facility] tablet 00:00: mouth at [place] 00 bedtime. Medical Branch ezetimibe 2022-0 Yes [id number] 10mg Take 1 [facility] 10 mg 2-07 tablet by [facility] tablet 00:00: mouth in [place] 00 the Medical morning. Branch metoprolol 2022-0 Yes [id number] 25mg Take 1 [facility] tartrate 25 2-07 tablet by [facility] of mg tablet 00:00: mouth in [facility] 00 the Medical morning Branch and 1 tablet in the evening. apixaban 2022-0 Yes 1358 5mg Take 1 [facility] (ELIQUIS) 5 2-07 tablet by [facility] of mg tablet 00:00: mouth in [place] 00 the Medical morning Branch and 1 tablet in the evening. Indication s: atrial fibrillati on cetirizine 3-0 Yes [id number] 10mg Take 1 [facility] (ZYRTEC) 10 2-07 tablet by [facility] of mg tablet 00:00: mouth in [place] 00 the Medical morning. Branch ezetimibe 3-0 Yes [id number] 10mg Take 1 [facility] 10 mg 2-07 tablet by [facility] of tablet 00:00: mouth in [place] 00 the Medical morning. Branch metoprolol 3-0 Yes [id number] 25mg Take 1 [facility] tartrate 25 2-07 tablet by [facility] of mg tablet 00:00: mouth in [place] 00 the Medical morning Branch and 1 tablet in the evening. apixaban 3-0 Yes 1358 5mg Take 1 [facility] (ELIQUIS) 5 2-07 tablet by [facility] of mg tablet 00:00: mouth in [place] 00 the Medical morning Branch and 1 tablet in the evening. Indication s: atrial fibrillati on cetirizine 2022-0 Yes [id number] 10mg Take 1 [facility] (ZYRTEC) 10 2-07 tablet by [facility] of mg tablet 00:00: mouth in [place] 00 the Medical morning. Branch ezetimibe 3-0 Yes [id number] 10mg Take 1 [facility] 10 mg 2-07 tablet by [facility] of tablet 00:00: mouth in [place] 00 the Medical morning. Branch metoprolol 3-0 Yes [id number] 25mg Take 1 [facility] n[facility] tartrate 25 2-07 tablet by [facility] mg tablet 00:00: mouth in [place] 00 the Medical morning Branch and 1 tablet in the evening. apixaban 3-0 Yes 1358 5mg Take 1 [facility] (ELIQUIS) 5 2-07 tablet by [facility] of mg tablet 00:00: mouth in [place] 00 the Medical morning Branch and 1 tablet in the evening. Indication s: atrial fibrillati on cetirizine 3-0 Yes [id number] 10mg Take 1 [facility] (ZYRTEC) 10 2-07 tablet by [facility] of mg tablet 00:00: mouth in [place] 00 the Medical morning. Branch ezetimibe 3-0 Yes [id number] 10mg Take 1 [facility] 10 mg 2-07 tablet by [facility] of tablet 00:00: mouth in [place] 00 the Medical morning. Branch metoprolol 2022-0 Yes [id number] 25mg Take 1 [facility] nivers tartrate 25 2-07 tablet by [facility] of mg tablet 00:00: mouth in [place] 00 the Medical morning Branch and 1 tablet in the evening. apixaban 2022-0 Yes 1358 5mg Take 1 [facility] (ELIQUIS) 5 2-07 tablet by [facility] of mg tablet 00:00: mouth in [place] 00 the Medical morning Branch and 1 tablet in the evening. Indication s: atrial fibrillati on cetirizine 2022-0 Yes [id number] 10mg Take 1 [facility] (ZYRTEC) 10 2-07 tablet by [facility] of mg tablet 00:00: mouth in [place] 00 the Medical morning. Branch ezetimibe 2022-0 Yes [id number] 10mg Take 1 [facility] n[facility] 10 mg 2-07 tablet by [facility] of tablet 00:00: mouth in [place] 00 the Medical morning. Branch metoprolol 2022-0 Yes [id number] 25mg Take 1 [facility] nivers tartrate 25 2-07 tablet by [facility] of mg tablet 00:00: mouth in [place] 00 the Medical morning Branch and 1 tablet in the evening. apixaban 2022-0 Yes 1358 5mg Take 1 [facility] (ELIQUIS) 5 2-07 tablet by [facility] of mg tablet 00:00: mouth in [place] 00 the Medical morning Branch and 1 tablet in the evening. Indication s: atrial fibrillati on metoprolol 2022-0 Yes [id number] 25mg Take 1 [facility] nivers tartrate 25 2-07 tablet by [facility] of mg tablet 00:00: mouth in [place] 00 the Medical morning Branch and 1 tablet in the evening. apixaban 2022-0 Yes 1358 5mg Take 1 [facility] (ELIQUIS) 5 2-07 tablet by [facility] of mg tablet 00:00: mouth in [place] 00 the Medical morning Branch and 1 tablet in the evening. Indication s: atrial fibrillati on metoprolol 2022-0 Yes [id number] 25mg Take 1 [facility] nivers tartrate 25 2-07 tablet by [facility] of mg tablet 00:00: [place] 00 the Medical morning Branch and 1 tablet in the evening. apixaban 3-0 Yes 1358 5mg Take 1 [facility] (ELIQUIS) 5 2-07 tablet by [facility] tablet 00:00: mouth [place] 00 the Medical morning Branch and 1 tablet in the evening. Indication s: atrial fibrillati on metoprolol 2022-0 Yes [id number] 25mg Take 1 [facility] tartrate 25 2-07 tablet by [facility] mg tablet 00:00: mouth [place] 00 the Medical morning Branch and 1 tablet in the evening. apixaban 2022-0 Yes 1358 5mg Take 1 [facility] (ELIQUIS) 5 2-07 tablet by [facility] mg tablet 00:00: mouth [place] 00 the Medical morning Branch and 1 tablet in the evening. Indication s: atrial fibrillati on metoprolol 2022-0 Yes [id number] 25mg Take 1 [facility] tartrate 25 2-07 tablet by [facility] mg tablet 00:00: mouth [place] 00 the Medical morning Branch and 1 tablet in the evening. apixaban 2022-0 Yes 1358 5mg Take 1 [facility] (ELIQUIS) 5 2-07 tablet by [facility] mg tablet 00:00: mouth [place] 00 the Medical morning Branch and 1 tablet in the evening. Indication s: atrial fibrillati on metoprolol 2022-0 Yes [id number] 25mg Take 1 [facility] tartrate 25 2-07 tablet by [facility] mg tablet 00:00: mouth [place] 00 the Medical morning Branch and 1 tablet in the evening. apixaban 3-0 Yes 1358 5mg Take 1 [facility] (ELIQUIS) 5 2-07 tablet by [facility] mg tablet 00:00: mouth [place] 00 the Medical morning Branch and 1 tablet in the evening. Indication s: atrial fibrillati on metoprolol 3-0 Yes [id number] 25mg Take 1 [facility] tartrate 25 2-07 tablet by [facility] mg tablet 00:00: mouth [place] 00 the Medical morning Branch and 1 tablet in the evening. apixaban 3-0 Yes 1358 5mg Take 1 [facility] (ELIQUIS) 5 2-07 tablet by [facility] mg tablet 00:00: mouth [place] 00 the Medical morning Branch and 1 tablet in the evening. Indication s: atrial fibrillati on metoprolol 3-0 Yes [id number] 25mg Take 1 [facility] tartrate 25 2-07 tablet by [facility] mg tablet 00:00: mouth [place] 00 the Medical morning Branch and 1 tablet in the evening. apixaban 3-0 Yes 1358 5mg Take 1 [facility] (ELIQUIS) 5 2-07 tablet by [facility] mg tablet 00:00: mouth [place] 00 the Medical morning Branch and 1 tablet in the evening. Indication s: atrial fibrillati on metoprolol 3-0 Yes [id number] 25mg Take 1 [facility] tartrate 25 2-07 tablet by [facility] mg tablet 00:00: mouth [place] 00 the Medical morning Branch and 1 tablet in the evening. apixaban 2022-0 Yes 1358 5mg Take 1 [facility] (ELIQUIS) 5 2-07 tablet by [facility] mg tablet 00:00: mouth [place] 00 the Medical morning Branch and 1 tablet in the evening. Indication s: atrial fibrillati on metoprolol 2022-0 Yes [id number] 25mg Take 1 [facility] tartrate 25 2-07 tablet by [facility] mg tablet 00:00: mouth [place] 00 the Medical morning Branch and 1 tablet in the evening. apixaban 3-0 Yes 1358 5mg Take 1 [facility] (ELIQUIS) 5 2-07 tablet by [facility] mg tablet 00:00: mouth [place] 00 the Medical morning Branch and 1 tablet in the evening. Indication s: atrial fibrillati on metoprolol 3-0 Yes [id number] 25mg Take 1 [facility] tartrate 25 2-07 tablet by [facility] mg tablet 00:00: mouth [place] 00 the Medical morning Branch and 1 tablet in the evening. apixaban 3-0 Yes 1358 5mg Take 1 [facility] (ELIQUIS) 5 2-07 tablet by [facility] mg tablet 00:00: mouth [place] 00 the Medical morning Branch and 1 tablet in the evening. Indication s: atrial fibrillati on metoprolol 2023-0 Yes [id number] 25mg Take 1 [facility] tartrate 25 2-07 tablet by [facility] mg tablet 00:00: mouth [place] 00 the Medical morning Branch and 1 tablet in the evening. apixaban 3-0 Yes 1358 5mg Take 1 [facility] (ELIQUIS) 5 2-07 tablet by [facility] mg tablet 00:00: mouth [place] 00 the Medical morning Branch and 1 tablet in the evening. Indication s: atrial fibrillati on metoprolol 3-0 Yes [id number] 25mg Take 1 [facility] tartrate 25 2-07 tablet by [facility] mg tablet 00:00: mouth [place] 00 the Medical morning Branch and 1 tablet in the evening. apixaban 2022-0 Yes 1358 5mg Take 1 [facility] (ELIQUIS) 5 2-07 tablet by [facility] mg tablet 00:00: mouth [place] 00 the Medical morning Branch and 1 tablet in the evening. Indication s: atrial fibrillati on metoprolol 2022-0 Yes [id number] 25mg Take 1 [facility] tartrate 25 2-07 tablet by [facility] mg tablet 00:00: mouth [place] 00 the Medical morning Branch and 1 tablet in the evening. apixaban 2022-0 Yes 1358 5mg Take 1 [facility] (ELIQUIS) 5 2-07 tablet by [facility] mg tablet 00:00: mouth [place] 00 the Medical morning Branch and 1 tablet in the evening. Indication s: atrial fibrillati on metoprolol 2022-0 Yes [id number] 25mg Take 1 [facility] tartrate 25 2-07 tablet by [facility] mg tablet 00:00: mouth [place] 00 the Medical morning Branch and 1 tablet in the evening. apixaban 3-0 Yes 1358 5mg Take 1 [facility] (ELIQUIS) 5 2-07 tablet by [facility] mg tablet 00:00: mouth [place] 00 the Medical morning Branch and 1 tablet in the evening. Indication s: atrial fibrillati on metoprolol 3-0 Yes [id number] 25mg Take 1 [facility] tartrate 25 2-07 tablet by [facility] mg tablet 00:00: mouth [place] 00 the Medical morning Branch and 1 tablet in the evening. apixaban 3-0 Yes 1358 5mg Take 1 [facility] (ELIQUIS) 5 2-07 tablet by [facility] mg tablet 00:00: mouth [place] 00 the Medical morning Branch and 1 tablet in the evening. Indication s: atrial fibrillati on metoprolol 3-0 Yes [id number] 25mg Take 1 [facility] tartrate 25 2-07 tablet by [facility] mg tablet 00:00: mouth [place] 00 the Medical morning Branch and 1 tablet in the evening. apixaban 3-0 Yes 1358 5mg Take 1 [facility] (ELIQUIS) 5 2-07 tablet by [facility] mg tablet 00:00: mouth [place] 00 the Medical morning Branch and 1 tablet in the evening. Indication s: atrial fibrillati on metoprolol 3-0 Yes [id number] 25mg Take 1 [facility] tartrate 25 2-07 tablet by [facility] mg tablet 00:00: mouth [place] 00 the Medical morning Branch and 1 tablet in the evening. apixaban 2022-0 Yes 1358 5mg Take 1 [facility] (ELIQUIS) 5 2-07 tablet by [facility] mg tablet 00:00: mouth [place] 00 the Medical morning Branch and 1 tablet in the evening. Indication s: atrial fibrillati on metoprolol 2022-0 Yes [id number] 25mg Take 1 [facility] tartrate 25 2-07 tablet by [facility] mg tablet 00:00: mouth [place] 00 the Medical morning Branch and 1 tablet in the evening. apixaban 3-0 Yes 1358 5mg Take 1 [facility] (ELIQUIS) 5 2-07 tablet by [facility] mg tablet 00:00: mouth [place] 00 the Medical morning Branch and 1 tablet in the evening. Indication s: atrial fibrillati on metoprolol 3-0 Yes [id number] 25mg Take 1 [facility] tartrate 25 2-07 tablet by [facility] mg tablet 00:00: mouth [place] 00 the Medical morning Branch and 1 tablet in the evening. apixaban 3-0 Yes 1358 5mg Take 1 [facility] (ELIQUIS) 5 2-07 tablet by [facility] mg tablet 00:00: mouth [place] 00 the Medical morning Branch and 1 tablet in the evening. Indication s: atrial fibrillati on metoprolol 2023-0 Yes [id number] 25mg Take 1 [facility] tartrate 25 2-07 tablet by [facility] mg tablet 00:00: mouth [place] 00 the Medical morning Branch and 1 tablet in the evening. apixaban 3-0 Yes 1358 5mg Take 1 [facility] (ELIQUIS) 5 2-07 tablet by [facility] mg tablet 00:00: mouth [place] 00 the Medical morning Branch and 1 tablet in the evening. Indication s: atrial fibrillati on metoprolol 2022-0 Yes [id number] 25mg Take 1 [facility] tartrate 25 2-07 tablet by [facility] mg tablet 00:00: mouth [place] 00 the Medical morning Branch and 1 tablet in the evening. apixaban 2022-0 Yes 1358 5mg Take 1 [facility] (ELIQUIS) 5 2-07 tablet by [facility] mg tablet 00:00: mouth [place] 00 the Medical morning Branch and 1 tablet in the evening. Indication s: atrial fibrillati on metoprolol 2022-0 Yes [id number] 25mg Take 1 [facility] tartrate 25 2-07 tablet by [facility] mg tablet 00:00: mouth [place] 00 the Medical morning Branch and 1 tablet in the evening. apixaban 2022-0 Yes 1358 5mg Take 1 [facility] (ELIQUIS) 5 2-07 tablet by [facility] mg tablet 00:00: mouth [place] 00 the Medical morning Branch and 1 tablet in the evening. Indication s: atrial fibrillati on metoprolol 2022-0 Yes [id number] 25mg Take 1 [facility] tartrate 25 2-07 tablet by [facility] mg tablet 00:00: mouth [place] 00 the Medical morning Branch and 1 tablet in the evening. apixaban 3-0 Yes 1358 5mg Take 1 [facility] (ELIQUIS) 5 2-07 tablet by [facility] mg tablet 00:00: mouth [place] 00 the Medical morning Branch and 1 tablet in the evening. Indication s: atrial fibrillati on metoprolol 3-0 Yes [id number] 25mg Take 1 [facility] tartrate 25 2-07 tablet by [facility] mg tablet 00:00: mouth [place] 00 the Medical morning Branch and 1 tablet in the evening. apixaban 3-0 Yes 1358 5mg Take 1 [facility] (ELIQUIS) 5 2-07 tablet by [facility] mg tablet 00:00: mouth [place] 00 the Medical morning Branch and 1 tablet in the evening. Indication s: atrial fibrillati on metoprolol 2022-0 Yes [id number] 25mg Take 1 [facility] tartrate 25 2-07 tablet by [facility] mg tablet 00:00: mouth [place] 00 the Medical morning Branch and 1 tablet in the evening. metoprolol 2022-0 Yes [id number] 25mg Take 1 [facility] tartrate 25 2-07 tablet by [facility] mg tablet 00:00: mouth [place] 00 the Medical morning Branch and 1 tablet in the evening. metoprolol 2022-0 Yes [id number] 25mg Take 1 [facility] tartrate 25 2-07 tablet by [facility] mg tablet 00:00: mouth [place] 00 the Medical morning Branch and 1 tablet in the evening. metoprolol 2022-0 Yes [id number] 25mg Take 1 [facility] tartrate 25 2-07 tablet by [facility] mg tablet 00:00: mouth [place] 00 the Medical morning Branch and 1 tablet in the evening. metoprolol 2022-0 Yes [id number] 25mg Take 1 [facility] tartrate 25 2-07 tablet by [facility] mg tablet 00:00: mouth [place] 00 the Medical morning Branch and 1 tablet in the evening. metoprolol 2022-0 Yes [id number] 25mg Take 1 [facility] tartrate 25 2-07 tablet by [facility] mg tablet 00:00: mouth [place] 00 the Medical morning Branch and 1 tablet in the evening. metoprolol 2022-0 Yes [id number] 25mg Take 1 [facility] tartrate 25 2-07 tablet by [facility] mg tablet 00:00: mouth [place] 00 the Medical morning Branch and 1 tablet in the evening. metoprolol 2022-0 Yes [id number] 25mg Take 1 [facility] tartrate 25 2-07 tablet by [facility] mg tablet 00:00: mouth [place] 00 the Medical morning Branch and 1 tablet in the evening. metoprolol 2022-0 Yes [id number] 25mg Take 1 [facility] tartrate 25 2-07 tablet by [facility] mg tablet 00:00: mouth [place] 00 the Medical morning Branch and 1 tablet in the evening. metoprolol 2022-0 Yes [id number] 25mg Take 1 [facility] tartrate 25 2-07 tablet by [facility] mg tablet 00:00: mouth [place] 00 the Medical morning Branch and 1 tablet in the evening. metoprolol 2022-0 Yes [id number] 25mg Take 1 [facility] tartrate 25 2-07 tablet by [facility] mg tablet 00:00: mouth [place] 00 the Medical morning Branch and 1 tablet in the evening. metoprolol 2022-0 Yes [id number] 25mg Take 1 [facility] tartrate 25 2-07 tablet by [facility] mg tablet 00:00: mouth [place] 00 the Medical morning Branch and 1 tablet in the evening. apixaban 2022- No 1358 5mg Take 1 [facility] (ELIQUIS) 5 2-08 12- tablet by [facility] y of mg tablet 00:00: 00:00 mouth in [place] 00 :00 the Medical morning Branch and 1 tablet in the evening. Indication s: atrial fibrillati on ezetimibe 2022- No [id number] 10mg Take 1 [facility] 10 mg 2- tablet by [facility] of tablet 00:00: 00:00 mouth in [place] 00 :00 the Medical morning. Branch cetirizine 2022- No [id number] 10mg Take 1 [facility] (ZYRTEC) 10 03-17- tablet by it y of mg tablet 00:00: 00:00 mouth in [place] 00 :00 the Medical morning. Branch ezetimibe 2022- No [id number] 10mg Take 1 [facility] 10 mg 03-17-17 tablet by [facility]y of tablet 00:00: 00:00 mouth in [place] 00 :00 the Medical morning. Branch cetirizine 2022- No [id number] 10mg Take 1 [facility] (ZYRTEC) 10 03-17-17 tablet by it y of mg tablet 00:00: 00:00 mouth in [place] 00 :00 the Medical morning. Branch traZODone 2022-0 Yes [id number] 50mg Take 1 [facility] 50 mg 1-25 tablet by [facility] of tablet 00:00: mouth at [place] 00 bedtime as Medical needed for Branch Insomnia. traZODone 2022-0 Yes [id number] 50mg Take 1 [facility] 50 mg 1-25 tablet by [facility] of tablet 00:00: mouth at [place] 00 bedtime as Medical needed for Branch Insomnia. traZODone 0 Yes [id number] 50mg Take 1 [facility] 50 mg 1-25 tablet by [facility] of tablet 00:00: mouth at [place] 00 bedtime as Medical needed for Branch Insomnia. traZODone 2022-0 Yes [id number] 50mg Take 1 [facility] [place] 50 mg 1-25 tablet by [facility] of tablet 00:00: mouth at [place] 00 bedtime as Medical needed for Branch Insomnia. traZODone 0 Yes [id number] 50mg Take 1 [facility] [place] 50 mg 1-25 tablet by [facility] of tablet 00:00: mouth at [place] 00 bedtime as Medical needed for Branch Insomnia. traZODone 0 Yes [id number] 50mg Take 1 [facility] 50 mg 1-25 tablet by [facility] of tablet 00:00: mouth at [place] bedtime as Medical needed for Branch Insomnia. traZODone 0 Yes [id number] 50mg Take 1 [facility] [place] 50 mg 1-25 tablet by [facility] of tablet 00:00: mouth at [place] bedtime as Medical needed for Branch Insomnia. traZODone 0 Yes [id number] 50mg Take 1 [facility] 50 mg 1-25 tablet by [facility] of tablet 00:00: mouth at [place] bedtime as Medical needed for Branch Insomnia. traZODone 0 Yes [id number] 50mg Take 1 [facility] [place] 50 mg 1-25 tablet by [facility] of tablet 00:00: mouth at [place] bedtime as Medical needed for Branch Insomnia. traZODone 0 Yes [id number] 50mg Take 1 [facility] [place] 50 mg 1-25 tablet by [facility] of tablet 00:00: mouth at [place] 00 bedtime as Medical needed for Branch Insomnia. traZODone 2022-0 Yes [id number] 50mg Take 1 [facility] [place] 50 mg 1-25 tablet by [facility] of tablet 00:00: mouth at [place] 00 bedtime as Medical needed for Branch Insomnia. traZODone 2022-0 Yes [id number] 50mg Take 1 [facility] [place] 50 mg 1-25 tablet by [facility] of tablet 00:00: mouth at [place] 00 bedtime as Medical needed for Branch Insomnia. traZODone Yes [id number] 50mg Take 1 [facility] [place] 50 mg 1-25 tablet by [facility] of tablet 00:00: mouth at [place] 00 bedtime as Medical needed for Branch Insomnia. traZODone Yes [id number] 50mg Take 1 [facility] 50 mg 1-25 tablet by [facility] of tablet 00:00: mouth at [place] 00 bedtime as Medical needed for Branch Insomnia. traZODone 2022- No [id number] 50mg Take 1 [facility] 50 mg 1-25 02-17 tablet by [facility] of tablet 00:00: 00:00 mouth at [place] 00 :00 bedtime as Medical needed for Branch Insomnia. traZODone 2022- No [id number] 50mg Take 1 [facility] 50 mg 1-25 02-17 tablet by [facility] of tablet 00:00: 00:00 mouth at [place] 00 :00 bedtime as Medical needed for Branch Insomnia. traZODone 2021-02 Yes [id number] 50mg Take 1 [facility] 50 mg 2-30 tablet by [facility] of tablet 00:00: mouth at [place] 00 bedtime as Medical needed for Branch Insomnia. PARoxetine 2021-02 Yes [id number] 10mg Take 1 [facility] 10 mg 2-30 tablet by [facility] of tablet 00:00: mouth in [place] 00 the Medical morning. Branch traZODone 2021-02 Yes [id number] 50mg Take 1 [facility] 50 mg 2-30 tablet by [facility] of tablet 00:00: mouth at [place] 00 bedtime as Medical needed for Branch Insomnia. PARoxetine 2021-02 Yes [id number] 10mg Take 1 [facility] 10 mg 2-30 tablet by [facility] of tablet 00:00: mouth in [place] 00 the Medical morning. Branch traZODone 2021-02 Yes [id number] 50mg Take 1 [facility] 50 mg 2-30 tablet by [facility] of tablet 00:00: mouth at [place] 00 bedtime as Medical needed for Branch Insomnia. PARoxetine 2021-02 Yes [id number] 10mg Take 1 [facility] 10 mg 2-30 tablet by [facility] of tablet 00:00: mouth in [place] 00 the Medical morning. Branch traZODone 2021-02 Yes [id number] 50mg Take 1 [facility] 50 mg 2-30 tablet by [facility] of tablet 00:00: mouth at [place] [address] bedtime as Medical needed for Branch Insomnia. PARoxetine 2021-02 Yes [id number] 10mg Take 1 [facility] 10 mg 2-30 tablet by [facility] of tablet 00:00: mouth in [place] 00 the Medical morning. Branch traZODone 2021-02 Yes [id number] 50mg Take 1 [facility] 50 mg 2-30 tablet by [facility] of tablet 00:00: mouth at [place] 00 bedtime as Medical needed for Branch Insomnia. PARoxetine 2021-02 Yes [id number] 10mg Take 1 [facility] 10 mg 2-30 tablet by [facility] of tablet 00:00: mouth in [place] the Medical morning. Branch PARoxetine 2021-02 Yes [id number] 10mg Take 1 [facility] 10 mg 2-30 tablet by [facility] of tablet 00:00: mouth in [place] the Medical morning. Branch PARoxetine 2021-02 Yes [id number] 10mg Take 1 [facility] 10 mg 2-30 tablet by [facility] of tablet 00:00: mouth in [place] the Medical morning. Branch PARoxetine 2021-02 Yes [id number] 10mg Take 1 [facility] 10 mg 2-30 tablet by [facility] of tablet 00:00: mouth in [place] the Medical morning. Branch PARoxetine 2021-02 Yes [id number] 10mg Take 1 [facility] 10 mg 2-30 tablet by [facility] of tablet 00:00: mouth in [place] the Medical morning. Branch PARoxetine 2021-02 Yes [id number] 10mg Take 1 [facility] 10 mg 2-30 tablet by [facility] of tablet 00:00: mouth in [place] the Medical morning. Branch PARoxetine 2021-02 Yes [id number] 10mg Take 1 [facility] 10 mg 2-30 tablet by [facility] of tablet 00:00: mouth in [place] the Medical morning. Branch PARoxetine 2021-02 Yes [id number] 10mg Take 1 [facility] 10 mg 2-30 tablet by [facility] of tablet 00:00: mouth in [place] 00 the Medical morning. Branch PARoxetine 2021-02 Yes [id number] 10mg Take 1 [facility] 10 mg 2-30 tablet by [facility] of tablet 00:00: mouth in [place] 00 the Medical morning. Branch PARoxetine 2021-02 Yes [id number] 10mg Take 1 [facility] 10 mg 2-30 tablet by [facility] of tablet 00:00: mouth in [place] 00 the Medical morning. Branch PARoxetine 2021-02 Yes [id number] 10mg Take 1 [facility] 10 mg 2-30 tablet by [facility] of tablet 00:00: mouth in [place] 00 the Medical morning. Branch PARoxetine 2021-02 Yes [id number] 10mg Take 1 [facility] 10 mg 2-30 tablet by [facility] of tablet 00:00: mouth in [place] 00 the Medical morning. Branch PARoxetine 2021-02 Yes [id number] 10mg Take 1 [facility] 10 mg 2-30 tablet by [facility] of tablet 00:00: mouth in [place] 00 the Medical morning. Branch PARoxetine 2021-02 Yes [id number] 10mg Take 1 [facility] 10 mg 2-30 tablet by [facility] of tablet 00:00: mouth in [place] 00 the Medical morning. Branch PARoxetine 2021-02- No [id number] 10mg Take 1 [facility] 10 mg 2-30 02-17 tablet by [facility] of tablet 00:00: 00:00 mouth in [place] 00 :00 the Medical morning. Branch PARoxetine 2021-02- No [id number] 10mg Take 1 [facility] 10 mg 2-30 02-17 tablet by [facility] of tablet 00:00: 00:00 mouth in [place] 00 :00 the Medical morning. Branch traZODone 2021-02- No [id number] 50mg Take 1 [facility] 50 mg 2-30 -25 tablet by [facility] of tablet 00:00: 00:00 mouth at [place] 00 :00 bedtime as Medical needed for [place] Insomnia. ELIQUIS 2021-02 Yes [id number] Take 1 [facility] n[facility] mg tablet 2-16 tablet by ity o f 00:00: mouth [place] 00 twice Medical daily Branch ELIQUIS 5 2021-02 Yes [id number] Take 1 [facility] n[facility] mg tablet 2-16 tablet by ity o f 00:00: mouth [place] [address] twice Medical daily Branch ELIQUIS 5 2021-02 Yes [id number] Take 1 [facility] nivers mg tablet 2-16 tablet by ity o f 00:00: mouth [place] 00 twice Medical daily Branch ELIQUIS 5 2021-02 Yes [id number] Take 1 [facility] n[facility] mg tablet 2-16 tablet by ity o f 00:00: mouth [place] 00 twice Medical daily Branch ELIQUIS 5 2021-02 Yes [id number] Take 1 [facility] nivers mg tablet 2-16 tablet by ity o f 00:00: mouth [place] 00 twice Medical daily Branch ELIQUIS 5 2021-02 Yes [id number] Take 1 [facility] nivers mg tablet 2-16 tablet by ity o f 00:00: mouth [place] twice Medical daily Branch ELIQUIS 5 2021-02 Yes [id number] Take 1 [facility] nivers mg tablet 2-16 tablet by ity o f 00:00: mouth [place] twice Medical daily Branch ELIQUIS 5 2021-02 Yes [id number] Take 1 [facility] n[facility] mg tablet 2-16 tablet by ity o f 00:00: mouth twice Medical daily Branch ELIQUIS 5 2021-02 Yes [id number] Take 1 [facility] n[facility] mg tablet 2-16 tablet by ity o f 00:00: mouth twice Medical daily Branch ELIQUIS 5 2021-02 Yes [id number] Take 1 [facility] nivers mg tablet 2-16 tablet by ity o f 00:00: mouth twice Medical daily Branch ELIQUIS 5 2021-02 Yes [id number] Take 1 [facility] nivers mg tablet 2-16 tablet by ity o f 00:00: mouth [place] twice Medical daily Branch ELIQUIS 5 2021-02 Yes [id number] Take 1 [facility] nivers mg tablet 2-16 tablet by ity o f 00:00: mouth [place] twice Medical daily Branch ELIQUIS 5 2021-02 Yes [id number] Take 1 [facility] n[facility] mg tablet 2-16 tablet by ity o f 00:00: mouth [place] twice Medical daily Branch ELIQUIS 5 2021-02 Yes [id number] Take 1 [facility] mg tablet 2-16 tablet by ity o f 00:00: mouth [place] 00 twice Medical daily Branch ELIQUIS 5 2021-02 Yes [id number] Take 1 [facility] mg tablet 2-16 tablet by ity o f 00:00: mouth [place] 00 twice Medical daily Branch ELIQUIS 5 2021-02 Yes [id number] Take 1 [facility] mg tablet 2-16 tablet by ity o f 00:00: mouth [place] 00 twice Medical daily Branch ELIQUIS 5 2021-02- No [id number] Take 1 [facility] mg tablet 2-16 -07 tablet by ity of 00:00: 00:00 mouth [place] 00 :00 twice Medical daily Branch ELIQUIS 5 2021-02- No [id number] Take 1 [facility] mg tablet 2-16 - tablet by ity of 00:00: 00:00 mouth [place] 00 :00 twice Medical daily Branch metoprolol 2021-02 Yes [id number] Take 1 [facility] nivers tartrate 25 2-06 tablet by ity of mg tablet 00:00: mouth [place] twice Medical daily Branch metoprolol 2021-02 Yes [id number] Take 1 [facility] nivers tartrate 25 2-06 tablet by ity of mg tablet 00:00: mouth [place] 00 twice Medical daily Branch metoprolol 2021-02 Yes [id number] Take 1 [facility] n[facility] tartrate 25 2-06 tablet by [facility] of mg tablet 00:00: mouth [place] 00 twice Medical daily Branch metoprolol 2021-02 Yes [id number] Take 1 [facility] n[facility] tartrate 25 2-06 tablet by [facility] of mg tablet 00:00: mouth [place] 00 twice Medical daily Branch metoprolol 2021-02 Yes [id number] Take 1 [facility] n[facility] tartrate 25 2-06 tablet by [facility] of mg tablet 00:00: mouth [place] 00 twice Medical daily Branch metoprolol 2021-02 Yes [id number] Take 1 [facility] n[facility] tartrate 25 2-06 tablet by ity of mg tablet 00:00: mouth [place] 00 twice Medical daily Branch metoprolol 2021-02 Yes [id number] Take 1 [facility] nivers tartrate 25 2-06 tablet by ity of mg tablet 00:00: mouth [place] 00 twice Medical daily Branch metoprolol 2021-02 Yes [id number] Take 1 [facility] n[facility] tartrate 25 2-06 tablet by ity of mg tablet 00:00: mouth [place] 00 twice Medical daily Branch metoprolol 2021-02 Yes [id number] Take 1 [facility] n[facility] tartrate 25 2-06 tablet by [facility]y of mg tablet 00:00: mouth [place] 00 twice Medical daily Branch metoprolol 2021-02 Yes [id number] Take 1 [facility] nivers tartrate 25 2-06 tablet by ity of mg tablet 00:00: mouth [place] 00 twice Medical daily Branch metoprolol 2021-02 Yes [id number] Take 1 [facility] nivers tartrate 25 2-06 tablet by ity of mg tablet 00:00: mouth [place] 00 twice Medical daily Branch metoprolol 2021-02 Yes [id number] Take 1 [facility] n[facility] tartrate 25 2-06 tablet by it[facility] of mg tablet 00:00: mouth [place] 00 twice Medical daily Branch metoprolol 2021-02 Yes [id number] Take 1 [facility] nivers tartrate 25 2-06 tablet by ity of mg tablet 00:00: mouth [place] 00 twice Medical daily Branch metoprolol 2021-02 Yes [id number] Take 1 [facility] nivers tartrate 25 2-06 tablet by ity of mg tablet 00:00: mouth [place] 00 twice Medical daily Branch metoprolol 2021-02 Yes [id number] Take 1 [facility] n[facility] tartrate 25 2-06 tablet by ity of mg tablet 00:00: mouth [place] twice Medical daily Branch metoprolol 2021-02 Yes [id number] Take 1 [facility] nivers tartrate 25 2-06 tablet by ity of mg tablet 00:00: mouth [place] 00 twice Medical daily Branch metoprolol 2021-02 Yes [id number] Take 1 [facility] nivers tartrate 25 2-06 tablet by ity of mg tablet 00:00: mouth [place] 00 twice Medical daily Branch metoprolol 2021-02 Yes [id number] Take 1 [facility] nivers tartrate 25 2-06 tablet by ity of mg tablet 00:00: [facility] 00 twice Medical daily Branch metoprolol 2021-02- No [id number] Take 1 [facility] tartrate 25 2-06 02-07 tablet by it y of mg tablet 00:00: 00:00 [facility] [place] 00 :00 twice Medical daily Branch metoprolol 2021-02- No [id number] Take 1 [facility] tartrate 25 2-06 02-07 tablet by it y of mg tablet 00:00: 00:00 mouth [place] 00 :00 twice Medical daily Branch diphenhydrA 2021- No [id number] 25mg [facility] MINE 10-27 ity of (BENADRYL) 15:15: 14:39 [place] 12.5 mg/5 00 :03 Medical mL solution Branch 25 mg cetirizine Yes [id number] 10mg Take 1 [facility] (ZYRTEC) 10 9-19 tablet by ity of mg tablet 00:00: mouth [place] 00 the Medical morning. Branch cetirizine 0 Yes [id number] 10mg Take 1 [facility] (ZYRTEC) 10 9-19 tablet by ity of mg tablet 00:00: mouth [place] 00 the Medical morning. Branch cetirizine 0 Yes [id number] 10mg Take 1 [facility] (ZYRTEC) 10 9-19 tablet by ity of mg tablet 00:00: mouth [place] 00 the Medical morning. Branch cetirizine 0 Yes [id number] 10mg Take 1 [facility] (ZYRTEC) 10 9-19 tablet by [facility] mg tablet [place]: [place] 00 the Medical morning. Branch cetirizine 0 Yes [id number] 10mg Take 1 [facility] (ZYRTEC) 10 9-19 tablet by [facility] mg tablet 00:00: [place] 00 the Medical morning. Branch cetirizine Yes [id number] 10mg Take 1 [facility] (ZYRTEC) 10 9-19 tablet by [facility] mg tablet 00:00: [place] 00 the Medical morning. Branch cetirizine 0 Yes [id number] 10mg Take 1 [facility] (ZYRTEC) 10 9-19 tablet by [facility] mg tablet 00:00: [place] 00 the Medical morning. Branch cetirizine 0 Yes [id number] 10mg Take 1 [facility] (ZYRTEC) 10 9-19 tablet by [facility] mg tablet 00:00: [place] 00 the Medical morning. Branch cetirizine 0 Yes [id number] 10mg Take 1 [facility] (ZYRTEC) 10 9-19 tablet by [facility] mg tablet 00:00: [place] 00 the Medical morning. Branch cetirizine 0 Yes [id number] 10mg Take 1 [facility] (ZYRTEC) 10 9-19 tablet by [facility] mg tablet 00:00: [place] 00 the Medical morning. Branch cetirizine 2021-0 Yes [id number] 10mg Take 1 [facility] (ZYRTEC) 10 9-19 tablet by [facility] mg tablet 00:00: [place] 00 the Medical morning. Branch cetirizine 0 Yes [id number] 10mg Take 1 [facility] (ZYRTEC) 10 9-19 tablet by [facility] mg tablet 00:00: [place] 00 the Medical morning. Branch cetirizine 0 Yes [id number] 10mg Take 1 [facility] (ZYRTEC) 10 9-19 tablet by [facility] mg tablet 00:00: [place] 00 the Medical morning. Branch cetirizine 0 Yes [id number] 10mg Take 1 [facility] (ZYRTEC) 10 9-19 tablet by [facility] mg tablet 00:00: [place] 00 the Medical morning. Branch cetirizine 0 Yes [id number] 10mg Take 1 [facility] (ZYRTEC) 10 9-19 tablet by [facility] mg tablet 00:00: [place] 00 the Medical morning. Branch cetirizine Yes [id number] 10mg Take 1 [facility] (ZYRTEC) 10 9-19 tablet by [facility] mg tablet 00:00: [place] 00 the Medical morning. Branch cetirizine 0 Yes [id number] 10mg Take 1 [facility] (ZYRTEC) 10 9-19 tablet by [facility] mg tablet 00:00: [place] 00 the Medical morning. Branch cetirizine 0 Yes [id number] 10mg Take 1 [facility] (ZYRTEC) 10 9-19 tablet by [facility] mg tablet 00:00: [place] 00 the Medical morning. Branch cetirizine 0 Yes [id number] 10mg Take 1 [facility] (ZYRTEC) 10 9-19 tablet by [facility] mg tablet 00:00: [place] 00 the Medical morning. Branch cetirizine 0 Yes [id number] 10mg Take 1 [facility] (ZYRTEC) 10 9-19 tablet by [facility] mg tablet 00:00: [place] 00 the Medical morning. Branch cetirizine 2022-0 Yes [id number] 10mg Take 1 [facility] (ZYRTEC) 10 9-19 tablet by [facility] mg tablet 00:00: [place] 00 the Medical morning. Branch cetirizine 0 Yes [id number] 10mg Take 1 [facility] (ZYRTEC) 10 9-19 tablet by [facility] mg tablet 00:00: [place] 00 the Medical morning. Branch cetirizine 0 Yes [id number] 10mg Take 1 [facility] (ZYRTEC) 10 9-19 tablet by [facility] mg tablet 00:00: [place] 00 the Medical morning. Branch cetirizine Yes [id number] 10mg Take 1 [facility] (ZYRTEC) 10 9-19 tablet by [facility] mg tablet 00:00: [place] 00 the Medical morning. Branch cetirizine Yes [id number] 10mg Take 1 [facility] (ZYRTEC) 10 9-19 tablet by [facility] mg tablet 00:00: [place] 00 the Medical morning. Branch cetirizine Yes [id number] 10mg Take 1 [facility] (ZYRTEC) 10 9-19 tablet by [facility] mg tablet 00:00: [place] 00 the Medical morning. Branch cetirizine 0 Yes [id number] 10mg Take 1 [facility] (ZYRTEC) 10 9-19 tablet by [facility] mg tablet 00:00: [place] 00 the Medical morning. Branch cetirizine 0 Yes [id number] 10mg Take 1 [facility] (ZYRTEC) 10 9-19 tablet by [facility] mg tablet 00:00: [place] 00 the Medical morning. Branch cetirizine 0 Yes [id number] 10mg Take 1 [facility] (ZYRTEC) 10 9-19 tablet by [facility] mg tablet 00:00: [place] 00 the Medical morning. Branch cetirizine 0 Yes [id number] 10mg Take 1 [facility] (ZYRTEC) 10 9-19 tablet by [facility] mg tablet 00:00: [place] 00 the Medical morning. Branch cetirizine 2022- No [id number] 10mg Take 1 [facility] (ZYRTEC) 10 10-27 tablet by it y of mg tablet 00:00: 00:00 mouth in [place] 00 :00 the Medical morning. Branch cetirizine 2022- No [id number] 10mg Take 1 [facility] (ZYRTEC) 10 10-27 tablet by it y of mg tablet 00:00: 00:00 mouth in [place] 00 :00 the Medical morning. Branch methylPREDN Yes [id number] Take by [facility] 10-18 9107 mouth ity of (MEDROL, 00:00: SEE-INSTRU [place]AR,) 4 mg 00 CTIONS. Medica l tablets follow Branch package directions methylPREDN Yes [id number] Take by [facility] 10-18 9107 mouth ity of (MEDROL, 00:00: SEE-INSTRU [place],) 4 mg 00 CTIONS. Medica l tablets follow Branch package directions methylPREDN 2021- No [id number] Take by [facility] 10-18 9107 mouth ity of (MEDROL, 00:00: 00:[place]INSTRU [place] SHAR[place] 4 mg 00 :00 CTIONS. Medica l tablets follow Branch package directions methylPREDN 0 2021- No [id number] Take by [facility] 10-18 9107 mouth ity of (MEDROL, 00:00: 00:[place] SHAR[place] 4 mg 00 :00 CTIONS. Medica l tablets follow Branch package directions mupirocin 2 0 Yes [id number] Apply to [facility] % ointment 8-02 area(s) 3 ity of 00:00: (three) [place] 00 times Medical daily. Branch mupirocin 2 2021-0 Yes [id number] Apply to [facility] % ointment 8-02 area(s) 3 ity of 00:00: (three) [place] 00 times Medical daily. Branch mupirocin 2 2021-0 Yes [id number] Apply to [facility] % ointment 8-02 area(s) 3 ity of 00:00: (three) [place] 00 times Medical daily. Branch mupirocin 2 2022-0 Yes [id number] Apply to [facility] % ointment 8-02 area(s) 3 ity of 00:00: (three) [place] 00 times Medical daily. Branch mupirocin 2 2022-0 Yes [id number] Apply to [facility] % ointment 8-02 area(s) 3 ity of 00:00: (three) [place] 00 times Medical daily. Branch mupirocin 2 2-0 Yes [id number] Apply to [facility] % ointment 8-02 area(s) 3 ity of 00:00: (three) [place] 00 times Medical daily. Branch mupirocin 2 2-0 Yes [id number] Apply to [facility] % ointment 8-02 area(s) 3 ity of 00:00: (three) [place] 00 times Medical daily. Branch mupirocin 2 2-0 Yes [id number] Apply to [facility] % ointment 8-02 area(s) 3 ity of 00:00: (three) [place] 00 times Medical daily. Branch mupirocin 2 2-0 Yes [id number] Apply to [facility] % ointment 8-02 area(s) 3 ity of 00:00: (three) [place] 00 times Medical daily. Branch mupirocin 2 2-0 Yes [id number] Apply to [facility] % ointment 8-02 area(s) 3 ity of 00:00: (three) [place] 00 times Medical daily. Branch mupirocin 2 2-0 Yes [id number] Apply to [facility] % ointment 8-02 area(s) 3 ity of 00:00: (three) [place] 00 times Medical daily. Branch mupirocin 2 2-0 Yes [id number] Apply to [facility] % ointment 8-02 area(s) 3 ity of 00:00: (three) [place] 00 times Medical daily. Branch mupirocin 2 2022-0 Yes [id number] Apply to [facility] % ointment 8-02 area(s) 3 ity of 00:00: (three) [place] 00 times Medical daily. Branch mupirocin 2 2-0 Yes [id number] Apply to [facility] % ointment 8-02 area(s) 3 ity of 00:00: (three) [place] 00 times Medical daily. Branch mupirocin 2 2022-0 Yes [id number] Apply to [facility] % ointment 8-02 area(s) 3 ity of 00:00: (three) [place] 00 times Medical daily. Branch mupirocin 2 2022-0 Yes [id number] Apply to [facility] % ointment 8-02 area(s) 3 ity of 00:00: (three) [place] 00 times Medical daily. Branch mupirocin 2 2022-0 Yes [id number] Apply to [facility] % ointment 8-02 area(s) 3 ity of 00:00: (three) [place] 00 times Medical daily. Branch mupirocin 2 2022-0 Yes [id number] Apply to [facility] % ointment 8-02 area(s) 3 ity of 00:00: (three) [place] 00 times Medical daily. Branch mupirocin 2 2022-0 Yes [id number] Apply to [facility] % ointment 8-02 area(s) 3 ity of 00:00: (three) [place] 00 times Medical daily. Branch mupirocin 2 2022-0 Yes [id number] Apply to [facility] % ointment 8-02 area(s) 3 ity of 00:00: (three) [place] 00 times Medical daily. Branch mupirocin 2 2022-0 Yes [id number] Apply to [facility] % ointment 8-02 area(s) 3 ity of 00:00: (three) [place] 00 times Medical daily. Branch mupirocin 2 2022-0 Yes [id number] Apply to [facility] % ointment 8-02 area(s) 3 ity of 00:00: (three) [place] 00 times Medical daily. Branch mupirocin 2 2022-0 Yes [id number] Apply to [facility] % ointment 8-02 area(s) 3 ity of 00:00: (three) [place] 00 times Medical daily. Branch mupirocin 2 2022-0 Yes [id number] Apply to [facility] % ointment 8-02 area(s) 3 ity of 00:00: (three) [place] 00 times Medical daily. Branch mupirocin 2 2022-0 Yes [id number] Apply to [facility] % ointment 8-02 area(s) 3 ity of 00:00: (three) [place] 00 times Medical daily. Branch mupirocin 2 2022-0 Yes [id number] Apply to [facility] % ointment 8-02 area(s) 3 ity of 00:00: (three) [place] 00 times Medical daily. Branch mupirocin 2 2022-0 Yes [id number] Apply to [facility] % ointment 8-02 area(s) 3 ity of 00:00: (three) [place] 00 times Medical daily. Branch mupirocin 2 2022-0 Yes [id number] Apply to [facility] % ointment 8-02 area(s) 3 ity of 00:00: (three) [place] 00 times Medical daily. Branch mupirocin 2 2022-0 Yes [id number] Apply to [facility] % ointment 8-02 area(s) 3 ity of 00:00: (three) [place] 00 times Medical daily. Branch mupirocin 2 2022-0 Yes [id number] Apply to [facility] % ointment 8-02 area(s) 3 ity of 00:00: (three) [place] 00 times Medical daily. Branch mupirocin 2 2022-0 Yes [id number] Apply to [facility] % ointment 8-02 area(s) 3 ity of 00:00: (three) [place] 00 times Medical daily. Branch mupirocin 2 2022-0 Yes [id number] Apply to [facility] % ointment 8-02 area(s) 3 ity of 00:00: (three) [place] 00 times Medical daily. Branch mupirocin 2 2022-0 Yes [id number] Apply to [facility] % ointment 8-02 area(s) 3 ity of 00:00: (three) [place] 00 times Medical daily. Branch mupirocin 2 2022-0 Yes [id number] Apply to [facility] % ointment 8-02 area(s) 3 ity of 00:00: (three) [place] 00 times Medical daily. Branch mupirocin 2 2022-0 Yes [id number] Apply to [facility] % ointment 8-02 area(s) 3 ity of 00:00: (three) [place] 00 times Medical daily. Branch mupirocin 2 2022-0 Yes [id number] Apply to [facility] % ointment 8-02 area(s) 3 ity of 00:00: (three) [place] 00 times Medical daily. Branch mupirocin 2 2021-0 Yes [id number] Apply to [facility] % ointment 8-02 area(s) 3 ity of 00:00: (three) [place] 00 times Medical daily. Branch mupirocin 2 2021-0 Yes [id number] Apply to [facility] % ointment 8-02 area(s) 3 ity of 00:00: (three) [place] 00 times Medical daily. Branch mupirocin 2 2021-0 Yes [id number] Apply to [facility] % ointment 8-02 area(s) 3 ity of 00:00: (three) [place] 00 times Medical daily. Branch mupirocin 2 2021-0 2023- No [id number] Apply to [facility] % ointment 8-02 02-17 area(s) 3 ity of 00:00: 00:00 (three) [place] 00 :00 times Medical daily. Branch mupirocin 2 2021-0 2023- No [id number] Apply to [facility] % ointment 8-02 02-17 area(s) 3 ity of 00:00: 00:00 (three) [place] 00 :00 times Medical daily. Branch EZETIMIBE 2-0 Yes [id number] Take 1 [facility] 10 mg 7-26 tablet by ity of tablet 00:00: mouth once [place] daily Medical Branch EZETIMIBE 2022-0 Yes [id number] Take 1 [facility] nivers 10 mg 7-26 tablet by ity of tablet 00:00: mouth once daily Medical Branch EZETIMIBE 2022-0 Yes [id number] Take 1 [facility] nivers 10 mg 7-26 tablet by ity of tablet 00:00: mouth once daily Medical Branch EZETIMIBE 2-0 Yes [id number] Take 1 [facility] nivers 10 mg 7-26 tablet by ity of tablet 00:00: mouth once daily Medical Branch EZETIMIBE 2022-0 Yes [id number] Take 1 [facility] nivers 10 mg 7-26 tablet by ity of tablet 00:00: mouth once daily Medical Branch EZETIMIBE 2022-0 Yes [id number] Take 1 [facility] nivers 10 mg 7-26 tablet by ity of tablet 00:00: mouth once daily Medical Branch EZETIMIBE 2021-0 Yes [id number] Take 1 [facility] nivers 10 mg 7-26 tablet by ity of tablet 00:00: mouth once daily Medical Branch EZETIMIBE 2021-0 Yes [id number] Take 1 [facility] nivers 10 mg 7-26 tablet by ity of tablet 00:00: mouth once daily Medical Branch EZETIMIBE 2021-0 Yes [id number] Take 1 [facility] nivers 10 mg 7-26 tablet by ity of tablet 00:00: mouth once daily Medical Branch EZETIMIBE 2021-0 Yes [id number] Take 1 [facility] nivers 10 mg 7-26 tablet by ity of tablet 00:00: mouth once daily Medical Branch EZETIMIBE 2021-0 Yes [id number] Take 1 [facility] nivers 10 mg 7-26 tablet by ity of tablet 00:00: mouth once daily Medical Branch EZETIMIBE 2021-0 Yes [id number] Take 1 [facility] nivers 10 mg 7-26 tablet by ity of tablet 00:00: mouth once daily Medical Branch EZETIMIBE 2021-0 Yes [id number] Take 1 [facility] nivers 10 mg 7-26 tablet by ity of tablet 00:00: mouth once daily Medical Branch EZETIMIBE 2021-0 Yes [id number] Take 1 [facility] nivers 10 mg 7-26 tablet by ity of tablet 00:00: mouth once daily Medical Branch EZETIMIBE 2021-0 Yes [id number] Take 1 [facility] nivers 10 mg 7-26 tablet by ity of tablet 00:00: mouth once daily Medical Branch EZETIMIBE 2-0 Yes [id number] Take 1 [facility] nivers 10 mg 7-26 tablet by ity of tablet 00:00: mouth once daily Medical Branch EZETIMIBE 2-0 Yes [id number] Take 1 [facility] nivers 10 mg 7-26 tablet by ity of tablet 00:00: mouth once daily Medical Branch EZETIMIBE 2-0 Yes [id number] Take 1 [facility] nivers 10 mg 7-26 tablet by ity of tablet 00:00: mouth once daily Medical Branch EZETIMIBE 2021-0 Yes [id number] Take 1 [facility] nivers 10 mg 7-26 tablet by ity of tablet 00:00: mouth once daily Medical Branch EZETIMIBE 2021-0 Yes [id number] Take 1 [facility] nivers 10 mg 7-26 tablet by ity of tablet 00:00: mouth once daily Medical Branch EZETIMIBE 2021-0 Yes [id number] Take 1 [facility] nivers 10 mg 7-26 tablet by ity of tablet 00:00: mouth once daily Medical Branch EZETIMIBE 2021-0 Yes [id number] Take 1 [facility] nivers 10 mg 7-26 tablet by ity of tablet 00:00: mouth once daily Medical Branch EZETIMIBE 2021-0 Yes [id number] Take 1 [facility] nivers 10 mg 7-26 tablet by ity of tablet 00:00: mouth once daily Medical Branch EZETIMIBE 2021-0 Yes [id number] Take 1 [facility] nivers 10 mg 7-26 tablet by ity of tablet 00:00: mouth once daily Medical Branch EZETIMIBE 2021-0 Yes [id number] Take 1 [facility] nivers 10 mg 7-26 tablet by ity of tablet 00:00: mouth once daily Medical Branch EZETIMIBE 2021-0 Yes [id number] Take 1 [facility] nivers 10 mg 7-26 tablet by ity of tablet 00:00: mouth once daily Medical Branch EZETIMIBE 2021-0 Yes [id number] Take 1 [facility] nivers 10 mg 7-26 tablet by ity of tablet 00:00: mouth once daily Medical Branch EZETIMIBE 2021-0 Yes [id number] Take 1 [facility] nivers 10 mg 7-26 tablet by ity of tablet 00:00: mouth once daily Medical Branch EZETIMIBE 2021-0 Yes [id number] Take 1 [facility] nivers 10 mg 7-26 tablet by ity of tablet 00:00: mouth once daily Medical Branch EZETIMIBE 2021-0 Yes [id number] Take 1 [facility] nivers 10 mg 7-26 tablet by ity of tablet 00:00: mouth once daily Medical Branch EZETIMIBE 2021-0 Yes [id number] Take 1 [facility] nivers 10 mg 7-26 tablet by ity of tablet 00:00: mouth once [place] 00 daily Medical Branch EZETIMIBE 2021-0 Yes [id number] Take 1 [facility] nivers 10 mg 7-26 tablet by ity of tablet 00:00: mouth once [place] 00 daily Medical Branch EZETIMIBE 2021-0 Yes [id number] Take 1 [facility] nivers 10 mg 7-26 tablet by ity of tablet 00:00: mouth once [place] 00 daily Medical Branch EZETIMIBE 2021-0 Yes [id number] Take 1 [facility] nivers 10 mg 7-26 tablet by ity of tablet 00:00: mouth once [place] 00 daily Medical Branch EZETIMIBE 2021-0 2023- No [id number] Take 1 [facility] 10 mg 7-26 02-07 tablet by ity of tablet 00:00: 00:00 mouth [place] 00 :00 daily Medical Branch EZETIMIBE 2021-0 3- No [id number] Take 1 [facility] 10 mg 7-26 02-07 tablet by ity of tablet 00:00: 00:00 mouth [place] 00 :00 daily Medical Branch zinc 2021-0 2021- No Take by [facility] sulfate 7-20 07-20 mouth ity of (ZINC-220 13:24: 00:00 daily. [place] ORAL) 57 :00 Medical Branch KCL 10 mEq 2021-0 Yes 10meq Take 10 [facility] vers tablet 7-20 mEq by ity of 13:24: mouth 2 [place] [address] (two) Medical times Branch daily. KCL 10 mEq 2021-0 Yes 10meq Take 10 [facility] vers tablet 7-20 mEq by ity of 13:24: mouth 2 [place] [address] (two) Medical times Branch daily. KCL 10 mEq 2-0 Yes 10meq Take 10 [facility] vers tablet 7-20 mEq by ity of 13:24: mouth 2 [place] [address] (two) Medical times Branch daily. KCL 10 mEq 2-0 Yes 10meq Take 10 [facility] vers tablet 7-20 mEq by ity of 13:24: mouth 2 [place] [address] (two) Medical times Branch daily. KCL 10 mEq 2-0 Yes 10meq Take 10 [facility] vers tablet 7-20 mEq by ity of 13:24: mouth 2 [place] [address] (two) Medical times Branch daily. KCL 10 mEq 2-0 Yes 10meq Take 10 [facility] vers tablet 7-20 mEq by ity of 13:24: mouth 2 [place] 55 (two) Medical times Branch daily. KCL 10 mEq 2022-0 Yes 10meq Take 10 [facility] vers tablet 7-20 mEq by ity of 13:24: mouth 2 [place] 55 (two) Medical times Branch daily. KCL 10 mEq 2022-0 Yes 10meq Take 10 [facility] vers tablet 7-20 mEq by ity of 13:24: mouth 2 [place] 55 (two) Medical times Branch daily. KCL 10 mEq 2022-0 Yes 10meq Take 10 [facility] vers tablet 7-20 mEq by ity of 13:24: mouth 2 [place] 55 (two) Medical times Branch daily. KCL 10 mEq 2022-0 Yes 10meq Take 10 [facility] vers tablet 7-20 mEq by ity of 13:24: mouth 2 [place] 55 (two) Medical times Branch daily. KCL 10 mEq 2022-0 Yes 10meq Take 10 [facility] vers tablet 7-20 mEq by ity of 13:24: mouth 2 [place] 55 (two) Medical times Branch daily. KCL 10 mEq 2022-0 Yes 10meq Take 10 [facility] vers tablet 7-20 mEq by ity of 13:24: mouth 2 [place] [address] (two) Medical times Branch daily. KCL 10 mEq 2-0 Yes 10meq Take 10 [facility] vers tablet 7-20 mEq by ity of 13:24: mouth 2 [place] [address] (two) Medical times Branch daily. KCL 10 mEq 2-0 Yes 10meq Take 10 [facility] vers tablet 7-20 mEq by ity of 13:24: mouth 2 [place] 55 (two) Medical times Branch daily. KCL 10 mEq 2022-0 Yes 10meq Take 10 [facility] vers tablet 7-20 mEq by ity of 13:24: mouth 2 [place] [address] (two) Medical times Branch daily. KCL 10 mEq 2022-0 Yes 10meq Take 10 [facility] vers tablet 7-20 mEq by ity of 13:24: mouth 2 [place] 55 (two) Medical times Branch daily. KCL 10 mEq 2022-0 Yes 10meq Take 10 [facility] vers tablet 7-20 mEq by ity of 13:24: mouth 2 [place] 55 (two) Medical times Branch daily. KCL 10 mEq 2022-0 Yes 10meq Take 10 [facility] vers tablet 7-20 mEq by ity of 13:24: mouth 2 [place] 55 (two) Medical times Branch daily. KCL 10 mEq 2022-0 Yes 10meq Take 10 [facility] vers tablet 7-20 mEq by ity of 13:24: mouth 2 [place] 55 (two) Medical times Branch daily. KCL 10 mEq 2022-0 Yes 10meq Take 10 [facility] vers tablet 7-20 mEq by ity of 13:24: mouth 2 [place] 55 (two) Medical times Branch daily. KCL 10 mEq 2022-0 Yes 10meq Take 10 [facility] vers tablet 7-20 mEq by ity of 13:24: mouth 2 [place] 55 (two) Medical times Branch daily. KCL 10 mEq 2022-0 Yes 10meq Take 10 [facility] vers tablet 7-20 mEq by ity of 13:24: mouth 2 [place] 55 (two) Medical times Branch daily. KCL 10 mEq 2-0 Yes 10meq Take 10 [facility] vers tablet 7-20 mEq by ity of 13:24: mouth 2 [place] 55 (two) Medical times Branch daily. KCL 10 mEq 2-0 Yes 10meq Take 10 [facility] vers tablet 7-20 mEq by ity of 13:24: mouth 2 [place] 55 (two) Medical times Branch daily. KCL 10 mEq 2-0 Yes 10meq Take 10 [facility] vers tablet 7-20 mEq by ity of 13:24: mouth 2 [place] 55 (two) Medical times Branch daily. KCL 10 mEq 2-0 Yes 10meq Take 10 [facility] vers tablet 7-20 mEq by ity of 13:24: mouth 2 [place] 55 (two) Medical times Branch daily. KCL 10 mEq 2-0 Yes 10meq Take 10 [facility] vers tablet 7-20 mEq by ity of 13:24: mouth 2 [place] 55 (two) Medical times Branch daily. KCL 10 mEq 2-0 Yes 10meq Take 10 [facility] vers tablet 7-20 mEq by ity of 13:24: mouth 2 [place] 55 (two) Medical times Branch daily. KCL 10 mEq 2-0 Yes 10meq Take 10 [facility] vers tablet 7-20 mEq by ity of 13:24: mouth 2 [place] 55 (two) Medical times Branch daily. KCL 10 mEq 2022-0 Yes 10meq Take 10 [facility] vers tablet 7-20 mEq by ity of 13:24: mouth 2 [place] 55 (two) Medical times Branch daily. KCL 10 mEq 2-0 Yes 10meq Take 10 [facility] vers tablet 7-20 mEq by ity of 13:24: mouth 2 [place] 55 (two) Medical times Branch daily. KCL 10 mEq 2022-0 Yes 10meq Take 10 [facility] vers tablet 7-20 mEq by ity of 13:24: mouth 2 [place] 55 (two) Medical times Branch daily. KCL 10 mEq 2022-0 Yes 10meq Take 10 [facility] vers tablet 7-20 mEq by ity of 13:24: mouth 2 [place] 55 (two) Medical times Branch daily. KCL 10 mEq 2022-0 Yes 10meq Take 10 [facility] vers tablet 7-20 mEq by ity of 13:24: mouth 2 [place] 55 (two) Medical times Branch daily. KCL 10 mEq 2022-0 Yes 10meq Take 10 [facility] vers tablet 7-20 mEq by ity of 13:24: mouth 2 [place] 55 (two) Medical times Branch daily. KCL 10 mEq 2022-0 Yes 10meq Take 10 [facility] vers tablet 7-20 mEq by ity of 13:24: mouth 2 [place] 55 (two) Medical times Branch daily. KCL 10 mEq 2022-0 Yes 10meq Take 10 [facility] vers tablet 7-20 mEq by ity of 13:24: mouth 2 [place] [address] (two) Medical times Branch daily. KCL 10 mEq 2-0 Yes 10meq Take 10 [facility] vers tablet 7-20 mEq by ity of 13:24: mouth 2 [place] [address] (two) Medical times Branch daily. KCL 10 mEq 2-0 Yes 10meq Take 10 [facility] vers tablet 7-20 mEq by ity of 13:24: mouth 2 [place] 55 (two) Medical times Branch daily. KCL 10 mEq 2022-0 Yes 10meq Take 10 [facility] vers tablet 7-20 mEq by ity of 13:24: mouth 2 [place] [address] (two) Medical times Branch daily. KCL 10 mEq 2022-0 Yes 10meq Take 10 [facility] vers tablet 7-20 mEq by ity of 13:24: mouth 2 [place] 55 (two) Medical times Branch daily. KCL 10 mEq 2022-0 Yes 10meq Take 10 [facility] vers tablet 7-20 mEq by ity of 13:24: mouth 2 [place] 55 (two) Medical times Branch daily. KCL 10 mEq 2022-0 Yes 10meq Take 10 [facility] vers tablet 7-20 mEq by ity of 13:24: mouth 2 [place] 55 (two) Medical times Branch daily. KCL 10 mEq 2022-0 Yes 10meq Take 10 [facility] vers tablet 7-20 mEq by ity of 13:24: mouth 2 [place] [address] (two) Medical times Branch daily. KCL 10 mEq 2021-0 Yes 10meq Take 10 [facility] vers tablet 7-20 mEq by ity of 13:24: mouth 2 [place] 55 (two) Medical times Branch daily. KCL 10 mEq 2021-0 Yes 10meq Take 10 [facility] vers tablet 7-20 mEq by ity of 13:24: mouth 2 [place] 55 (two) Medical times Branch daily. KCL 10 mEq 2021-0 Yes 10meq Take 10 [facility] vers tablet 7-20 mEq by ity of 13:24: mouth 2 [place] 55 (two) Medical times Branch daily. KCL 10 mEq 2021-0 Yes 10meq Take 10 [facility] vers tablet 7-20 mEq by ity of 13:24: mouth 2 [place] [address] (two) Medical times Branch daily. KCL 10 mEq 2021-0 Yes 10meq Take 10 [facility] vers tablet 7-20 mEq by ity of 13:24: mouth 2 [place] [address] (two) Medical times Branch daily. KCL 10 mEq 2021-0 Yes 10meq Take 10 [facility] vers tablet 7-20 mEq by ity of 13:24: mouth 2 [place] [address] (two) Medical times Branch daily. KCL 10 mEq 2021-0 Yes 10meq Take 10 [facility] vers tablet 7-20 mEq by ity of 13:24: mouth 2 [place] 55 (two) Medical times Branch daily. traMADol 50 2021-0 2021- No 50mg Take 50 mg [facility] mg tablet 08-27- by mouth ity o f 13:24: 00:00 every 6 [place] 48 :00 (six) Medical hours as Branch needed. bisacodyL 2021-0 2021- No 5mg Take 5 mg [facility] (DULCOLAX, 08-27- by mouth ity of BISACODYL,) 13:23: 00:00 once daily [place] 5 mg EC 37 :00 as needed Medical tablet for Branch Constipati on. gluc 2021-0 2021- No Take by [facility] hernandez/chondro 08-27-20 mouth ity of hernandez A/vit 13:23: 00:00 every 12 [place] C/Mn 15 :00 (twelve) Medical (GLUCOSAMIN hours. Branch E 1500 COMPLEX ORAL) methylPREDN 2022-0 Yes [id number] Take by [facility] 08-27 9105 mouth ity of (MEDROL, 00:00: SEE-INSTRU [place]AR,) 4 mg 00 CTIONS. Medica l tablets follow Branch package directions methylPREDN 2-0 Yes [id number] Take by [facility] 08-27 9105 mouth ity of (MEDROL, 00:00: SEE-INSTRU [place]AR,) 4 mg 00 CTIONS. Medica l tablets follow Branch package directions methylPREDN 2022-0 Yes [id number] Take by [facility] 08-27 9105 mouth ity of (MEDROL, 00:00: SEE-INSTRU [place]AR,) 4 mg 00 CTIONS. Medica l tablets follow Branch package directions methylPREDN 2-0 Yes [id number] Take by [facility] 08-27 9105 mouth ity of (MEDROL, 00:00: SEE-INSTRU [place],) 4 mg 00 CTIONS. Medica l tablets follow Branch package directions methylPREDN 2-0 Yes [id number] Take by [facility] 08-27 9105 mouth ity of (MEDROL, 00:00: SEE-INSTRU [place],) 4 mg 00 CTIONS. Medica l tablets follow Branch package directions methylPREDN 2-0 Yes [id number] Take by [facility] 08-27 9105 mouth ity of (MEDROL, 00:00: SEE-INSTRU [place],) 4 mg 00 CTIONS. Medica l tablets follow Branch package directions methylPREDN 2021-0 2022- No [id number] Take by [place] [id number] mouth ity of (MEDROL, 00:00: 00:00 SEE-INSTRU [place] [place],) 4 mg 00 :00 CTIONS. Medica l tablets follow Branch package directions methylPREDN 2-0 2022- No [id number] Take by [place] [id number] mouth ity of (MEDROL, 00:00: 00:[place] 4 mg 00 :00 CTIONS. Medica l tablets follow Branch package directions HYDROcodone 2021-0 2022- No 1{tbl} Take 1 U nivers -acetaminop -08 14- tablet by it y of hen 10-325 12:50: 00:00 mouth [place] mg tablet 10 :00 every 6 Medical (six) Branch hours as needed. HYDROcodone 2021-2021- No 1{tbl} Take 1 U nivers -acetaminop -08 14- tablet by it y of hen 10-325 12:50: 00:00 mouth [place] mg tablet 10 :00 every 6 Medical (six) Branch hours as needed. methylPREDN 2021-0 Yes [id number] Take by [facility] 08-14 9106 mouth ity of (MEDROL, 00:00: SEE-INSTRU [place],) 4 mg 00 CTIONS. Medica l tablets follow Branch package directions mupirocin 2 2021-0 Yes [id number] Apply to [facility] % ointment 7-07 area(s) 3 ity of 00:00: (three) [place] 00 times Medical daily. Branch methylPREDN 2021-0 Yes [id number] Take by [facility] 08-14 9106 mouth ity of (MEDROL, 00:00: SEE-INSTRU [place],) 4 mg 00 CTIONS. Medica l tablets follow Branch package directions mupirocin 2 2021-0 Yes [id number] Apply to [facility] % ointment 7-07 area(s) 3 ity of 00:00: (three) [place] 00 times Medical daily. Branch methylPREDN 2021-0 Yes [id number] Take by [facility] 08-14 9106 mouth ity of (MEDROL, 00:00: SEE-INSTRU [place],) 4 mg 00 CTIONS. Medica l tablets follow Branch package directions mupirocin 2 2021-0 Yes [id number] Apply to [facility] % ointment 7-07 area(s) 3 ity of 00:00: (three) [place] 00 times Medical daily. Branch methylPREDN 2021-0 Yes [id number] Take by [facility] 7 9106 mouth ity of (MEDROL, 00:00: SEE-INSTRU [place],) 4 mg 00 CTIONS. Medica l tablets follow Branch package directions mupirocin 2 2021-0 Yes [id number] Apply to [facility] % ointment 7-07 area(s) 3 ity of 00:00: (three) [place] 00 times Medical daily. Branch mupirocin 2 Yes [id number] Apply to [facility] % ointment 08-14 area(s) 3 ity of 00:00: (three) [place] 00 times Medical daily. Branch mupirocin 2 0 Yes [id number] Apply to [facility] % ointment 08-14 area(s) 3 ity of 00:00: (three) [place] 00 times Medical daily. Branch mupirocin 2 0 Yes [id number] Apply to [facility] % ointment 08-14 area(s) 3 ity of 00:00: (three) [place] 00 times Medical daily. Branch mupirocin 2 2021- No [id number] Apply to [facility] % ointment 08-14 08-02 area(s) 3 ity of 00:00: 00:00 (three) [place] 00 :00 times Medical daily. Branch methylPREDN 2021- No [id number] Take by [facility] 08-14 07-20 9106 mouth ity of (MEDROL, 00:00: 00:00 [place] 4 mg 00 :00 CTIONS. Medica l tablets follow [place] package directions rosuvastati Yes [id number] 10mg Take 1 [facility] n 10 mg 7-06 tablet by ity of tablet 00:00: mouth at [place] [address] bedtime. [facility] rosuvastati Yes [id number] 10mg Take 1 [facility] n 10 mg 7-06 tablet by ity of tablet 00:00: mouth at [place] [address] bedtime. [facility] rosuvastati Yes [id number] 10mg Take 1 [facility] n 10 mg 7-06 tablet by ity of tablet 00:00: mouth at [place] [address] bedtime. [facility] rosuvastati Yes [id number] 10mg Take 1 [facility] n 10 mg 7-06 tablet by ity of tablet 00:00: mouth at [place] [address] bedtime. [facility] rosuvastati Yes [id number] 10mg Take 1 [facility] n 10 mg 7-06 tablet by ity of tablet 00:00: mouth at [place] [address] bedtime. Medical Branch rosuvastati 2022-0 Yes [id number] 10mg Take 1 [facility] n 10 mg 7-06 tablet by ity of tablet 00:00: mouth at [place] 00 bedtime. Medical Branch rosuvastati 2021-0 Yes [id number] 10mg Take 1 [facility] n 10 mg 7-06 tablet by ity of tablet 00:00: mouth at [place] bedtime. Medical Branch rosuvastati 2021-0 Yes [id number] 10mg Take 1 [facility] n 10 mg 7-06 tablet by ity of tablet 00:00: mouth at [place] bedtime. Medical Branch rosuvastati 2021-0 Yes [id number] 10mg Take 1 [facility] n 10 mg 7-06 tablet by ity of tablet 00:00: mouth at [place] bedtime. Medical Branch rosuvastati 2021- Yes [id number] 10mg Take 1 [facility] n 10 mg 7-06 tablet by ity of tablet 00:00: mouth at [place] bedtime. Medical Branch rosuvastati 2021-0 Yes [id number] 10mg Take 1 [facility] n 10 mg 7-06 tablet by ity of tablet 00:00: mouth at [place] [address] bedtime. Medical Branch rosuvastati 2021- Yes [id number] 10mg Take 1 [facility] n 10 mg 7-06 tablet by ity of tablet 00:00: mouth at [place] [address] bedtime. Medical Branch rosuvastati 2021- Yes [id number] 10mg Take 1 [facility] n 10 mg 7-06 tablet by ity of tablet 00:00: mouth at [place] [address] bedtime. Medical Branch rosuvastati 2021-0 Yes [id number] 10mg Take 1 [facility] n 10 mg 7-06 tablet by ity of tablet 00:00: mouth at [place] [address] bedtime. Medical Branch rosuvastati 2021-0 Yes [id number] 10mg Take 1 [facility] n 10 mg 7-06 tablet by ity of tablet 00:00: mouth at [place] [address] bedtime. Medical Branch rosuvastati 2021-0 Yes [id number] 10mg Take 1 [facility] n 10 mg 7-06 tablet by ity of tablet 00:00: mouth at [place] [address] bedtime. Medical Branch rosuvastati 2021-0 Yes [id number] 10mg Take 1 [facility] n 10 mg 7-06 tablet by ity of tablet 00:00: mouth at [place] [address] bedtime. Medical Branch rosuvastati Yes [id number] 10mg Take 1 [facility] n 10 mg 7-06 tablet by ity of tablet 00:00: mouth at [place] 00 bedtime. Medical Branch rosuvastati Yes [id number] 10mg Take 1 [facility] n 10 mg 7-06 tablet by ity of tablet 00:00: mouth at [place] bedtime. Medical Branch rosuvastati Yes [id number] 10mg Take 1 [facility] n 10 mg 7-06 tablet by ity of tablet 00:00: mouth at [place] 00 bedtime. Medical Branch rosuvastati Yes [id number] 10mg Take 1 [facility] n 10 mg 7-06 tablet by ity of tablet 00:00: mouth at [place] bedtime. Medical Branch rosuvastati Yes [id number] 10mg Take 1 [facility] n 10 mg 7-06 tablet by ity of tablet 00:00: mouth at [place] bedtime. Medical Branch rosuvastati Yes [id number] 10mg Take 1 [facility] n 10 mg 7-06 tablet by ity of tablet 00:00: mouth at [place] bedtime. Medical Branch rosuvastati Yes [id number] 10mg Take 1 [facility] n 10 mg 7-06 tablet by ity of tablet 00:00: mouth at [place] bedtime. Medical Branch rosuvastati Yes [id number] 10mg Take 1 [facility] n 10 mg 7-06 tablet by ity of tablet 00:00: mouth at [place] [address] bedtime. Medical Branch rosuvastati 2021- Yes [id number] 10mg Take 1 [facility] n 10 mg 7-06 tablet by ity of tablet 00:00: mouth at [place] [address] bedtime. Medical Branch rosuvastati Yes [id number] 10mg Take 1 [facility] n 10 mg 7-06 tablet by ity of tablet 00:00: mouth at [place] bedtime. Medical Branch rosuvastati Yes [id number] 10mg Take 1 [facility] n 10 mg 7-06 tablet by ity of tablet 00:00: mouth at [place] 00 bedtime. Medical Branch rosuvastati 2021- Yes [id number] 10mg Take 1 [facility] n 10 mg 7-06 tablet by ity of tablet 00:00: mouth at [place] 00 bedtime. Medical Branch rosuvastati Yes [id number] 10mg Take 1 [facility] n 10 mg 7-06 tablet by ity of tablet 00:00: mouth at [place] bedtime. Medical Branch rosuvastati Yes [id number] 10mg Take 1 [facility] n 10 mg 7-06 tablet by ity of tablet 00:00: mouth at [place] bedtime. Medical Branch rosuvastati 2021-0 Yes [id number] 10mg Take 1 [facility] n 10 mg 7-06 tablet by ity of tablet 00:00: mouth at [place] bedtime. Medical Branch rosuvastati Yes [id number] 10mg Take 1 [facility] n 10 mg 7-06 tablet by ity of tablet 00:00: mouth at [place] bedtime. Medical Branch rosuvastati Yes [id number] 10mg Take 1 [facility] n 10 mg 7-06 tablet by ity of tablet 00:00: mouth at [place] bedtime. Medical Branch rosuvastati Yes [id number] 10mg Take 1 [facility] n 10 mg 7-06 tablet by ity of tablet 00:00: mouth at [place] bedtime. Medical Branch rosuvastati Yes [id number] 10mg Take 1 [facility] n 10 mg 7-06 tablet by ity of tablet 00:00: mouth at [place] bedtime. Medical Branch rosuvastati Yes [id number] 10mg Take 1 [facility] n 10 mg 7-06 tablet by ity of tablet 00:00: mouth at [place] [address] bedtime. Medical Branch rosuvastati 2021-0 Yes [id number] 10mg Take 1 [facility] n 10 mg 7-06 tablet by ity of tablet 00:00: mouth at [place] [address] bedtime. Medical Branch rosuvastati 0 Yes [id number] 10mg Take 1 [facility] n 10 mg 7-06 tablet by ity of tablet 00:00: mouth at [place] bedtime. Medical Branch rosuvastati 2021-0 Yes [id number] 10mg Take 1 [facility] n 10 mg 7-06 tablet by ity of tablet 00:00: mouth at [place] [address] bedtime. Medical Branch rosuvastati 2021-0 Yes [id number] 10mg Take 1 [facility] n 10 mg 7-06 tablet by ity of tablet 00:00: mouth at [place] [address] bedtime. Medical Branch rosuvastati Yes [id number] 10mg Take 1 [facility] n 10 mg 7-06 tablet by ity of tablet 00:00: mouth at [place] 00 bedtime. Medical Branch rosuvastati Yes [id number] 10mg Take 1 [facility] n 10 mg 7-06 tablet by ity of tablet 00:00: mouth at [place] [address] bedtime. Medical Branch rosuvastati Yes [id number] 10mg Take 1 [facility] n 10 mg 7-06 tablet by ity of tablet 00:00: mouth at [place] [address] bedtime. Medical Branch rosuvastati Yes [id number] 10mg Take 1 [facility] n 10 mg 7-06 tablet by ity of tablet 00:00: mouth at [place] [address] bedtime. Medical Branch rosuvastati Yes [id number] 10mg Take 1 [facility] n 10 mg 7-06 tablet by ity of tablet 00:00: mouth at [place] [address] bedtime. Medical Branch rosuvastati 2022- No [id number] 10mg Take 1 [facility] n 10 mg 7-06 02-17 tablet by ity of tablet 00:00: 00:00 mouth at [place] 00 :00 bedtime. Medical Branch rosuvastati 2022- No [id number] 10mg Take 1 [facility] n 10 mg 7-06 02-17 tablet by ity of tablet 00:00: 00:00 mouth at [place] 00 :00 bedtime. Medical Branch mupirocin 2 Yes Apply to [facility] % ointment 6-30 area(s) 3 ity of 00:00: (three) [place] 00 times Medical daily. Branch mupirocin 2 2021-0 Yes Apply to [facility] % ointment 6-30 area(s) 3 ity of 00:00: (three) [place] 00 times Medical daily. Branch mupirocin 2 2021-0 Yes Apply to [facility] % ointment 6-30 area(s) 3 ity of 00:00: (three) [place] 00 times Medical daily. Branch mupirocin 2 2021-0 Yes Apply to [facility] % ointment 6-30 area(s) 3 ity of 00:00: (three) [place] 00 times Medical daily. Branch mupirocin 2 2021- No Apply to U nivers % ointment 08-07-20 area(s) 3 ity of 00:00: 00:00 (three) [place] 00 :00 times Medical daily. Branch PROCTO-MED Yes APPLY TO Uni vers HC 2.5 % 5-20 ANUS TWICE ity o f rectal 00:00: DAILY [place] cream 00 DIRECTED Medical Branch PROCTO-MED 0 Yes APPLY TO Uni vers HC 2.5 % 5-20 ANUS TWICE ity o f rectal 00:00: DAILY [place] cream 00 DIRECTED Medical Branch PROCTO-MED 0 Yes APPLY TO Uni vers HC 2.5 % 5-20 ANUS TWICE ity o f rectal 00:00: DAILY [place] cream 00 DIRECTED Medical Branch PROCTO-MED 0 Yes APPLY TO Uni vers HC 2.5 % 5-20 ANUS TWICE ity o f rectal 00:00: DAILY [place] cream 00 DIRECTED Medical Branch PROCTO-MED 0 Yes APPLY TO Uni vers HC 2.5 % 5-20 ANUS TWICE ity o f rectal 00:00: DAILY [place] cream 00 DIRECTED Medical Branch PROCTO-MED 0 Yes APPLY TO Uni vers HC 2.5 % 5-20 ANUS TWICE ity o f rectal 00:00: DAILY [place] cream 00 DIRECTED Medical Branch PROCTO-MED 0 Yes APPLY TO Uni vers HC 2.5 % 5-20 ANUS TWICE ity o f rectal 00:00: DAILY [place] cream 00 DIRECTED Medical Branch PROCTO-MED 2021-0 Yes APPLY TO Uni vers HC 2.5 % 5-20 ANUS TWICE ity o f rectal 00:00: DAILY [place] cream 00 DIRECTED Medical Branch PROCTO-MED 2021-0 Yes APPLY TO Uni vers HC 2.5 % 5-20 ANUS TWICE ity o f rectal 00:00: DAILY [place] cream 00 DIRECTED Medical Branch PROCTO-MED 2021-0 Yes APPLY TO Uni vers HC 2.5 % 5-20 ANUS TWICE ity o f rectal 00:00: DAILY [place] cream 00 DIRECTED Medical Branch PROCTO-MED 2021-0 Yes APPLY TO Uni vers HC 2.5 % 5-20 ANUS TWICE ity o f rectal 00:00: DAILY [place] cream 00 DIRECTED Medical Branch PROCTO-MED 0 Yes APPLY TO Uni vers HC 2.5 % 5-20 ANUS TWICE ity o f rectal 00:00: DAILY [place] cream 00 DIRECTED Medical Branch PROCTO-MED 0 Yes APPLY TO Uni vers HC 2.5 % 5-20 ANUS TWICE ity o f rectal 00:00: DAILY [place] cream 00 DIRECTED Medical Branch PROCTO-MED 0 Yes APPLY TO Uni vers HC 2.5 % 5-20 ANUS TWICE ity o f rectal 00:00: DAILY [place] cream 00 DIRECTED Medical Branch PROCTO-MED 0 Yes APPLY TO Uni vers HC 2.5 % 5-20 ANUS TWICE ity o f rectal 00:00: DAILY [place] cream 00 DIRECTED Medical Branch PROCTO-MED 0 Yes APPLY TO Uni vers HC 2.5 % 5-20 ANUS TWICE ity o f rectal 00:00: DAILY [place] cream 00 DIRECTED Medical Branch PROCTO-MED 0 Yes APPLY TO Uni vers HC 2.5 % 5-20 ANUS TWICE ity o f rectal 00:00: DAILY [place] cream 00 DIRECTED Medical Branch PROCTO-MED 0 Yes APPLY TO Uni vers HC 2.5 % 5-20 ANUS TWICE ity o f rectal 00:00: DAILY [place] cream 00 DIRECTED Medical Branch PROCTO-MED 0 Yes APPLY TO Uni vers HC 2.5 % 5-20 ANUS TWICE ity o f rectal 00:00: DAILY [place] cream 00 DIRECTED Medical Branch PROCTO-MED 0 Yes APPLY TO Uni vers HC 2.5 % 5-20 ANUS TWICE ity o f rectal 00:00: DAILY [place] cream 00 DIRECTED Medical Branch PROCTO-MED 2021-0 Yes APPLY TO Uni vers HC 2.5 % 5-20 ANUS TWICE ity o f rectal 00:00: DAILY [place] cream 00 DIRECTED Medical Branch PROCTO-MED 2021-0 Yes APPLY TO Uni vers HC 2.5 % 5-20 ANUS TWICE ity o f rectal 00:00: DAILY [place] cream 00 DIRECTED Medical Branch PROCTO-MED 2021-0 Yes APPLY TO Uni vers HC 2.5 % 5-20 ANUS TWICE ity o f rectal 00:00: DAILY [place] cream 00 DIRECTED Medical Branch PROCTO-MED 0 Yes APPLY TO Uni vers HC 2.5 % 5-20 ANUS TWICE ity o f rectal 00:00: DAILY [place] cream 00 DIRECTED Medical Branch PROCTO-MED 0 Yes APPLY TO Uni vers HC 2.5 % 5-20 ANUS TWICE ity o f rectal 00:00: DAILY [place] cream 00 DIRECTED Medical Branch PROCTO-MED 0 Yes APPLY TO Uni vers HC 2.5 % 5-20 ANUS TWICE ity o f rectal 00:00: DAILY [place] cream 00 DIRECTED Medical Branch PROCTO-MED 0 Yes APPLY TO Uni vers HC 2.5 % 5-20 ANUS TWICE ity o f rectal 00:00: DAILY [place] cream 00 DIRECTED Medical Branch PROCTO-MED 2021-0 Yes APPLY TO Uni vers HC 2.5 % 5-20 ANUS TWICE ity o f rectal 00:00: DAILY [place] cream 00 DIRECTED Medical Branch PROCTO-MED 2021-0 Yes APPLY TO Uni vers HC 2.5 % 5-20 ANUS TWICE ity o f rectal 00:00: DAILY [place] cream 00 DIRECTED Medical Branch PROCTO-MED 2021-0 Yes APPLY TO Uni vers HC 2.5 % 5-20 ANUS TWICE ity o f rectal 00:00: DAILY [place] cream 00 DIRECTED Medical Branch PROCTO-MED 2021-0 Yes APPLY TO Uni vers HC 2.5 % 5-20 ANUS TWICE ity o f rectal 00:00: DAILY [place] cream 00 DIRECTED Medical Branch PROCTO-MED 2021-0 Yes APPLY TO Uni vers HC 2.5 % 5-20 ANUS TWICE ity o f rectal 00:00: DAILY [place] cream 00 DIRECTED Medical Branch PROCTO-MED 2021-0 Yes APPLY TO Uni vers HC 2.5 % 5-20 ANUS TWICE ity o f rectal 00:00: DAILY [place] cream 00 DIRECTED Medical Branch PROCTO-MED 2021-0 Yes APPLY TO Uni vers HC 2.5 % 5-20 ANUS TWICE ity o f rectal 00:00: DAILY [place] cream 00 DIRECTED Medical Branch PROCTO-MED 2021-0 Yes APPLY TO Uni vers HC 2.5 % 5-20 ANUS TWICE ity o f rectal 00:00: DAILY [place] cream 00 DIRECTED Medical Branch PROCTO-MED 2021-0 Yes APPLY TO Uni vers HC 2.5 % 5-20 ANUS TWICE ity o f rectal 00:00: DAILY [place] cream 00 DIRECTED Medical Branch PROCTO-MED 0 Yes APPLY TO Uni vers HC 2.5 % 5-20 ANUS TWICE ity o f rectal 00:00: DAILY [place] cream 00 DIRECTED Medical Branch PROCTO-MED 0 Yes APPLY TO Uni vers HC 2.5 % 5-20 ANUS TWICE ity o f rectal 00:00: DAILY [place] cream 00 DIRECTED Medical Branch PROCTO-MED 0 Yes APPLY TO Uni vers HC 2.5 % 5-20 ANUS TWICE ity o f rectal 00:00: DAILY [place] cream 00 DIRECTED Medical Branch PROCTO-MED 0 Yes APPLY TO Uni vers HC 2.5 % 5-20 ANUS TWICE ity o f rectal 00:00: DAILY [place] cream 00 DIRECTED Medical Branch PROCTO-MED 0 Yes APPLY TO Uni vers HC 2.5 % 5-20 ANUS TWICE ity o f rectal 00:00: DAILY [place] cream 00 DIRECTED Medical Branch PROCTO-MED 0 Yes APPLY TO Uni vers HC 2.5 % 5-20 ANUS TWICE ity o f rectal 00:00: DAILY [place] cream 00 DIRECTED Medical Branch PROCTO-MED 0 Yes APPLY TO Uni vers HC 2.5 % 5-20 ANUS TWICE ity o f rectal 00:00: DAILY [place] cream 00 DIRECTED Medical Branch PROCTO-MED 2021-0 Yes APPLY TO Uni vers HC 2.5 % 5-20 ANUS TWICE ity o f rectal 00:00: DAILY [place] cream 00 DIRECTED Medical Branch PROCTO-MED 2021-0 Yes APPLY TO Uni vers HC 2.5 % 5-20 ANUS TWICE ity o f rectal 00:00: DAILY [place] cream 00 DIRECTED Medical Branch PROCTO-MED 2021-0 Yes APPLY TO Uni vers HC 2.5 % 5-20 ANUS TWICE ity o f rectal 00:00: DAILY [place] cream 00 DIRECTED Medical Branch PROCTO-MED 2021-0 Yes APPLY TO Uni vers HC 2.5 % 5-20 ANUS TWICE ity o f rectal 00:00: DAILY [place] cream 00 DIRECTED Medical Branch PROCTO-MED 2021-0 Yes APPLY TO Uni vers HC 2.5 % 5-20 ANUS TWICE ity o f rectal 00:00: DAILY [place] cream 00 DIRECTED Medical Branch PROCTO-MED Yes APPLY TO Uni vers HC 2.5 % 5-20 ANUS TWICE ity o f rectal 00:00: DAILY [place] cream 00 DIRECTED Medical Branch PROCTO-MED 0 Yes APPLY TO Uni vers HC 2.5 % 5-20 ANUS TWICE ity o f rectal 00:00: DAILY [place] cream 00 DIRECTED Medical Branch PROCTO-MED Yes APPLY TO Uni vers HC 2.5 % 5-20 ANUS TWICE ity o f rectal 00:00: DAILY [place] cream 00 DIRECTED Medical Branch PROCTO-MED Yes APPLY TO Uni vers HC 2.5 % 5-20 ANUS TWICE ity o f rectal 00:00: DAILY [place] cream 00 DIRECTED Medical Branch PROCTO-MED Yes APPLY TO Uni vers HC 2.5 % 5-20 ANUS TWICE ity o f rectal 00:00: DAILY [place] cream 00 DIRECTED Medical Branch PROCTO-MED Yes APPLY TO Uni vers HC 2.5 % 5-20 ANUS TWICE ity o f rectal 00:00: DAILY [place] cream 00 DIRECTED Medical Branch PROCTO-MED 0 Yes APPLY TO Uni vers HC 2.5 % 5-20 ANUS TWICE ity o f rectal 00:00: DAILY [place] cream 00 DIRECTED Medical Branch PROCTO-MED 0 Yes APPLY TO Uni vers HC 2.5 % 5-20 ANUS TWICE ity o f rectal 00:00: DAILY [place] cream 00 DIRECTED Medical Branch PROCTO-MED 2021-0 Yes APPLY TO Uni vers HC 2.5 % 5-20 ANUS TWICE ity o f rectal 00:00: DAILY [place] cream 00 DIRECTED Medical Branch PROCTO-MED 2021-0 Yes APPLY TO Uni vers HC 2.5 % 5-20 ANUS TWICE ity o f rectal 00:00: DAILY [place] cream 00 DIRECTED Medical Branch PROCTO-MED 2021-0 Yes APPLY TO Uni vers HC 2.5 % 5-20 ANUS TWICE ity o f rectal 00:00: DAILY [place] cream 00 DIRECTED Medical Branch PROCTO-MED 2021-0 Yes APPLY TO Uni vers HC 2.5 % 5-20 ANUS TWICE ity o f rectal 00:00: DAILY [place] cream 00 DIRECTED Medical Branch PROCTO-MED 0 Yes APPLY TO Uni vers HC 2.5 % 5-20 ANUS TWICE ity o f rectal 00:00: DAILY [place] cream 00 DIRECTED Medical Branch PROCTO-MED 0 Yes APPLY TO Uni vers HC 2.5 % 5-20 ANUS TWICE ity o f rectal 00:00: DAILY [place] cream 00 DIRECTED Medical Branch PROCTO-MED 0 Yes APPLY TO Uni vers HC 2.5 % 5-20 ANUS TWICE ity o f rectal 00:00: DAILY [place] cream 00 DIRECTED Medical Branch PROCTO-MED 0 Yes APPLY TO [facility] vers HC 2.5 % 5-20 ANUS TWICE ity o f rectal 00:00: DAILY [place] cream 00 DIRECTED Medical Branch PROCTO-MED 0 Yes APPLY TO [facility] vers HC 2.5 % 5-20 ANUS TWICE ity o f rectal 00:00: DAILY [place] cream 00 DIRECTED Medical Branch PROCTO-MED 0 Yes APPLY TO Uni vers HC 2.5 % 5-20 ANUS TWICE ity o f rectal 00:00: DAILY [place] cream 00 DIRECTED Medical Branch PROCTO-MED 0 Yes APPLY TO Uni vers HC 2.5 % 5-20 ANUS TWICE ity o f rectal 00:00: DAILY [place] cream 00 DIRECTED Medical Branch PROCTO-MED 0 Yes APPLY TO Uni vers HC 2.5 % 5-20 ANUS TWICE ity o f rectal 00:00: DAILY [place] cream 00 DIRECTED Medical Branch PROCTO-MED 2021-0 Yes APPLY TO [facility] vers HC 2.5 % 5-20 ANUS TWICE ity o f rectal 00:00: DAILY [place] cream 00 DIRECTED Medical Branch PROCTO-MED 2021-0 Yes APPLY TO [facility] vers HC 2.5 % 5-20 ANUS TWICE ity o f rectal 00:00: DAILY [place] cream 00 DIRECTED Medical Branch PROCTO-MED 2021-0 Yes APPLY TO [facility] vers HC 2.5 % 5-20 ANUS TWICE ity o f rectal 00:00: DAILY [place] cream 00 DIRECTED Medical Branch PROCTO-MED 2021-0 Yes APPLY TO [facility] vers HC 2.5 % 5-20 ANUS TWICE ity o f rectal 00:00: DAILY [place] cream 00 DIRECTED Medical Branch PROCTO-MED 0 Yes APPLY TO [facility] vers HC 2.5 % 5-20 ANUS TWICE ity o f rectal 00:00: DAILY [place] cream 00 DIRECTED Medical Branch PROCTO-MED 0 Yes APPLY TO [facility] vers HC 2.5 % 5-20 ANUS TWICE ity o f rectal 00:00: DAILY [place] cream 00 DIRECTED Medical Branch PROCTO-MED 0 Yes APPLY TO [facility] vers HC 2.5 % 5-20 ANUS TWICE ity o f rectal 00:00: DAILY [place] cream 00 DIRECTED Medical Branch PROCTO-MED 0 Yes APPLY TO [facility] vers HC 2.5 % 5-20 ANUS TWICE ity o f rectal 00:00: DAILY [place] cream 00 DIRECTED Medical Branch PROCTO-MED 0 Yes APPLY TO [facility] vers HC 2.5 % 5-20 ANUS TWICE ity o f rectal 00:00: DAILY [place] cream 00 DIRECTED Medical Branch PROCTO-MED 0 Yes APPLY TO [facility] vers HC 2.5 % 5-20 ANUS TWICE ity o f rectal 00:00: DAILY [place] cream 00 DIRECTED Medical Branch PROCTO-MED 0 Yes APPLY TO [facility] vers HC 2.5 % 5-20 ANUS TWICE ity o f rectal 00:00: DAILY [place] cream 00 DIRECTED Medical Branch PROCTO-MED 0 Yes APPLY TO [facility] vers HC 2.5 % 5-20 ANUS TWICE ity o f rectal 00:00: DAILY [place] cream 00 DIRECTED Medical Branch PROCTO-MED 0 Yes APPLY TO [facility] vers HC 2.5 % 5-20 ANUS TWICE ity o f rectal 00:00: DAILY [place] cream 00 DIRECTED Medical Branch PROCTO-MED 2021-0 Yes APPLY TO [facility] vers HC 2.5 % 5-20 ANUS TWICE ity o f rectal 00:00: DAILY [place] cream 00 DIRECTED Medical Branch HYDROcodone Yes TAKE 1 [facility] ers -acetaminop 4-25 TABLET BY ity of hen 7.5-325 00:00: MOUTH [place] mg per 00 EVERY 4 TO Medical tablet 6 HOURS Branch NEEDED FOR PAIN HYDROcodone Yes TAKE 1 [facility] ers -acetaminop 4-25 TABLET BY ity of hen 7.5-325 00:00: MOUTH [place] mg per 00 EVERY 4 TO Medical tablet 6 HOURS Branch NEEDED FOR PAIN HYDROcodone 0 Yes TAKE 1 [facility] ers -acetaminop 4-25 TABLET BY ity of hen 7.5-325 00:00: MOUTH [place] mg per 00 EVERY 4 TO Medical tablet 6 HOURS Branch NEEDED FOR PAIN HYDROcodone 2021-0 Yes TAKE 1 [facility] ers -acetaminop 4-25 TABLET BY ity of hen 7.5-325 00:00: MOUTH [place] mg per 00 EVERY 4 TO Medical tablet 6 HOURS Branch NEEDED FOR PAIN HYDROcodone 2021-0 2022- No TAKE 1 [facility] vers -acetaminop 4-25 07-20 TABLET BY it y of hen 7.5-325 00:00: 00:00 MOUTH [place] per 00 :00 EVERY 4 TO Medical tablet 6 HOURS Branch NEEDED FOR PAIN bisacodyL 2021-0 Yes 5mg Take 5 mg [facility] vers (DULCOLAX, 3-23 by mouth ity o f BISACODYL,) 14:04: once daily [place] 5 mg EC 53 as needed Medical tablet for Branch Constipati on. bisacodyL 2021-0 Yes 5mg Take 5 mg [facility] vers (DULCOLAX, 3-23 by mouth ity o f BISACODYL,) 14:04: once daily [place] 5 mg EC 53 as needed Medical tablet for Branch Constipati on. bisacodyL 2021-0 Yes 5mg Take 5 mg [facility] vers (DULCOLAX, 3-23 by mouth ity o f BISACODYL,) 14:04: once daily [place] 5 mg EC 53 as needed Medical tablet for Branch Constipati on. bisacodyL 2-0 Yes 5mg Take 5 mg [facility] vers (DULCOLAX, 3-23 by mouth ity o f BISACODYL,) 14:04: once daily [place] 5 mg EC 53 as needed Medical tablet for Branch Constipati on. chlorhexidi 2022-0 Yes [id number] 15mL [facility] and [facility] ne 0.12 % 3-23 spit out ity of mouthwash 00:00: 15 mL 2 [place] 00 (two) Medical times Branch daily. chlorhexidi 2022-0 Yes [id number] 15mL [facility] and [facility] ne 0.12 % 3-23 spit out ity of mouthwash 00:00: 15 mL 2 [place] 00 (two) Medical times Branch daily. chlorhexidi 2021-0 Yes [id number] 15mL [facility] and [facility] ne 0.12 % 3-23 spit out ity of mouthwash 00:00: 15 mL 2 [place] 00 (two) Medical times Branch daily. chlorhexidi 2021-0 Yes [id number] 15mL [facility] and [facility] ne 0.12 % 3-23 spit out ity of mouthwash 00:00: 15 mL 2 [place] 00 (two) Medical times Branch daily. chlorhexidi 2021-0 2022- No [id number] 15mL [facility] and [facility] ne 0.12 % 3-23 07-20 spit out ity o f mouthwash 00:00: 00:00 15 mL 2 [place] :[place] (two) Medical times Branch daily. docusate 0 Yes 100mg Take 100 [facility] ers (COLACE) 1-25 mg by ity of 100 mg 14:07: mouth [place] capsule 44 daily. Medical Branch docusate 0 Yes 100mg Take 100 [facility] ers (COLACE) 1-25 mg by ity of 100 mg 14:07: mouth [place] capsule 44 daily. Medical Branch docusate 0 Yes 100mg Take 100 [facility] ers (COLACE) 1-25 mg by ity of 100 mg 14:07: mouth [place] capsule 44 daily. Medical Branch docusate 0 Yes 100mg Take 100 [facility] ers (COLACE) 1-25 mg by ity of 100 mg 14:07: mouth [place] capsule 44 daily. Medical Branch docusate 0 Yes 100mg Take 100 [facility] ers (COLACE) 1-25 mg by ity of 100 mg 14:07: mouth [place] capsule 44 daily. Medical Branch docusate 0 Yes 100mg Take 100 [facility] ers (COLACE) 1-25 mg by ity of 100 mg 14:07: mouth [place] capsule 44 daily. Medical Branch docusate 0 Yes 100mg Take 100 [facility] ers (COLACE) 1-25 mg by ity of 100 mg 14:07: mouth [place] capsule 44 daily. Medical Branch docusate 0 Yes 100mg Take 100 [facility] ers (COLACE) 1-25 mg by ity of 100 mg 14:07: mouth [place] capsule 44 daily. [facility] docusate 0 Yes 100mg Take 100 [facility] ([facility] 1-25 mg by [facility] 100 mg 14:07: mouth [place] capsule 44 daily. [facility] docusate 0 Yes 100mg Take 100 [facility] (COL[facility]) 1-25 mg by [facility] 100 mg 14:07: mouth [place] capsule 44 daily. [facility] docusate 0 Yes 100mg Take 100 [facility] (COL[facility]) 1-25 mg by [facility] 100 mg 14:07: mouth [place] capsule 44 daily. [facility] docusate 0 Yes 100mg Take 100 [facility] (COLACE) 1-25 mg by [facility] of 100 mg 14:07: mouth [place] capsule 44 daily. [facility] docusate 0 Yes 100mg Take 100 [facility] (COLACE) 1-25 mg by [facility] 100 mg 14:07: mouth [place] capsule 44 daily. [facility] docusate 0 Yes 100mg Take 100 [facility] (COLACE) 1-25 mg by [facility] 100 mg 14:07: mouth [place] capsule 44 daily. [facility] docusate 0 Yes 100mg Take 100 [facility] (COLACE) 1-25 mg by [facility] 100 mg 14:07: mouth [place] capsule 44 daily. [facility] docusate 0 Yes 100mg Take 100 [facility] (COLACE) 1-25 mg by [facility] 100 mg 14:07: mouth [place] capsule 44 daily. [facility] docusate 0 Yes 100mg Take 100 [facility] (COLACE) 1-25 mg by [facility] of 100 mg 14:07: mouth [place] capsule 44 daily. [facility] docusate 0 Yes 100mg Take 100 [facility] (COLACE) 1-25 mg by [facility] 100 mg 14:07: mouth [place] capsule 44 daily. [facility] docusate 0 Yes 100mg Take 100 [facility] (COLACE) 1-25 mg by [facility] 100 mg 14:07: mouth [place] capsule 44 daily. [facility] docusate 0 Yes 100mg Take 100 [facility] (COLACE) 1-25 mg by [facility] of 100 mg 14:07: mouth [place] capsule 44 daily. [facility] docusate 0 Yes 100mg Take 100 [facility] (COLACE) 1-25 mg by [facility] of 100 mg 14:07: mouth [place] capsule 44 daily. [facility] docusate 0 Yes 100mg Take 100 [facility] (COLACE) 1-25 mg by [facility] of 100 mg 14:07: mouth [place] capsule 44 daily. [facility] docusate 0 Yes 100mg Take 100 [facility] (COLACE) 1-25 mg by [facility] 100 mg 14:07: mouth [place] capsule 44 daily. [facility] docusate 0 Yes 100mg Take 100 [facility] (COLACE) 1-25 mg by [facility] 100 mg 14:07: mouth [place] capsule 44 daily. [facility] docusate 0 Yes 100mg Take 100 [facility] (COLACE) 1-25 mg by [facility] 100 mg 14:07: mouth [place] capsule 44 daily. [facility] docusate 0 Yes 100mg Take 100 [facility] (COLACE) 1-25 mg by [facility] of 100 mg 14:07: mouth [place] capsule 44 daily. [facility] docusate 0 Yes 100mg Take 100 [facility] (COLACE) 1-25 mg by [facility] 100 mg 14:07: mouth [place] capsule 44 daily. [facility] docusate 0 Yes 100mg Take 100 [facility] (COLACE) 1-25 mg by [facility] 100 mg 14:07: mouth [place] capsule 44 daily. [facility] docusate 0 Yes 100mg Take 100 [facility] (COLACE) 1-25 mg by [facility] 100 mg 14:07: mouth [place] capsule 44 daily. [facility] docusate 0 Yes 100mg Take 100 [facility] (COLACE) 1-25 mg by [facility] 100 mg 14:07: mouth [place] capsule 44 daily. [facility] docusate 0 Yes 100mg Take 100 [facility] (COL[facility]) 1-25 mg by [facility] of 100 mg 14:07: mouth [place] capsule 44 daily. [facility] docusate 0 Yes 100mg Take 100 [facility] (COLACE) 1-25 mg by [facility] of 100 mg 14:07: mouth [place] capsule 44 daily. [facility] docusate 0 Yes 100mg Take 100 [facility] (COLACE) 1-25 mg by [facility] of 100 mg 14:07: mouth [place] capsule 44 daily. [facility] docusate 0 Yes 100mg Take 100 [facility] (COLACE) 1-25 mg by [facility] of 100 mg 14:07: mouth [place] capsule 44 daily. [facility] docusate 0 Yes 100mg Take 100 [facility] (COLACE) 1-25 mg by [facility] of 100 mg 14:07: mouth [place] capsule 44 daily. [facility] docusate 0 Yes 100mg Take 100 [facility] (COLACE) 1-25 mg by [facility] of 100 mg 14:07: mouth [place] capsule 44 daily. [facility] docusate 0 Yes 100mg Take 100 [facility] (COLACE) 1-25 mg by [facility] of 100 mg 14:07: mouth [place] capsule 44 daily. [facility] docusate 0 Yes 100mg Take 100 [facility] (COLACE) 1-25 mg by [facility] of 100 mg 14:07: mouth [place] capsule 44 daily. [facility] docusate 0 Yes 100mg Take 100 [facility] (COL[facility]) 1-25 mg by [facility] of 100 mg 14:07: mouth [place] capsule 44 daily. [facility] docusate 0 Yes 100mg Take 100 [facility] (COL[facility]) 1-25 mg by [facility] of 100 mg 14:07: mouth [place] capsule 44 daily. [facility] docusate 0 Yes 100mg Take 100 [facility] (COL[facility]) 1-25 mg by [facility] of 100 mg 14:07: mouth [place] capsule 44 daily. [facility] docusate 0 Yes 100mg Take 100 [facility] (COLACE) 1-25 mg by [facility] of 100 mg 14:07: mouth [place] capsule 44 daily. [facility] docusate 0 Yes 100mg Take 100 [facility] (COL[facility]) 1-25 mg by [facility] of 100 mg 14:07: mouth [place] capsule 44 daily. [facility] docusate 0 Yes 100mg Take 100 [facility] (COL[facility]) 1-25 mg by [facility] of 100 mg 14:07: mouth [place] capsule 44 daily. [facility] docusate 0 Yes 100mg Take 100 [facility] (COL[facility]) 1-25 mg by [facility] of 100 mg 14:07: mouth [place] capsule 44 daily. [facility] docusate 0 Yes 100mg Take 100 [facility] (COL[facility]) 1-25 mg by [facility] of 100 mg 14:07: mouth [place] capsule 44 daily. [facility] docusate Yes 100mg Take 100 [facility] (COL[facility]) 1-25 mg by [facility] of 100 mg 14:07: mouth [place] capsule 44 daily. [facility] docusate Yes 100mg Take 100 [facility] (COL[facility]) 1-25 mg by [facility] of 100 mg 14:07: mouth [place] capsule 44 daily. [facility] docusate Yes 100mg Take 100 [facility] (COLACE) 1-25 mg by [facility] of 100 mg 14:07: mouth [place] capsule 44 daily. [facility] docusate Yes 100mg Take 100 [facility] (COLACE) 1-25 mg by [facility] of 100 mg 14:07: mouth [place] capsule 44 daily. [facility] docusate Yes 100mg Take 100 [facility] (COLACE) 1-25 mg by [facility] of 100 mg 14:07: mouth [place] capsule 44 daily. [facility] docusate Yes 100mg Take 100 [facility] (COL[facility]) 1-25 mg by [facility] of 100 mg 14:07: mouth [place] capsule 44 daily. [facility] docusate Yes 100mg Take 100 [facility] ([facility]) 1-25 mg by [facility] of 100 mg 14:07: mouth [place] capsule 44 daily. [facility] docusate Yes 100mg Take 100 [facility] ([facility]) 1-25 mg by [facility] of 100 mg 14:07: mouth [place] capsule 44 daily. [facility] docusate Yes 100mg Take 100 [facility] ([facility]) 1-25 mg by [facility] of 100 mg 14:07: mouth [place] capsule 44 daily. [facility] linaCLOtide 2020-02 Yes [id number] 145ug Take 1 [facility] (LINZESS) 1-01 capsule by [facility] 145 mcg 00:00: mouth [place] capsule 00 daily as [facility] needed for Branch Constipati on. apixaban 5 2020-02 Yes 5mg Take 1 [facility] mg tablet 1-01 tablet by [facility] o f 00:00: mouth 2 [place] 00 (two) Medical times Branch daily. Indication s: take 1 tablet by mouth 2 (two) times daily. ezetimibe 2020-02 Yes [id number] 10mg Take 1 [facility] 10 mg 1-01 tablet by [facility] tablet 00:00: mouth [place] 00 daily. [facility] metoprolol 2020-02 Yes [id number] 25mg Take 1 [facility] tartrate 25 1-01 tablet by [facility] mg tablet 00:00: mouth 2 [place] 00 (two) Medical times Branch daily. omeprazole 2020-02 Yes [id number] 20mg Take 1 [facility] 20 mg 1-01 capsule by [facility] capsule 00:00: mouth [place] 00 daily. [facility] fluconazole 2020-02 Yes [id number] 100mg Take 1 [facility] 100 mg 1-01 tablet by [facility] tablet 00:00: mouth [place] 00 daily. [facility] linaCLOtide 2020-02 Yes [id number] 145ug Take 1 [facility] (LINZESS) 1-01 capsule by [facility] 145 mcg 00:00: mouth [place] capsule 00 daily as [facility] needed for Branch Constipati on. apixaban 5 2020-02 Yes 5mg Take 1 [facility] mg tablet 1-01 tablet by [facility] o f 00:00: mouth 2 [place] 00 (two) Medical times Branch daily. Indication s: take 1 tablet by mouth 2 (two) times daily. ezetimibe 2020-02 Yes [id number] 10mg Take 1 [facility] 10 mg 1-01 tablet by [facility] of tablet 00:00: mouth [place] 00 daily. [facility] metoprolol 2020-02 Yes [id number] 25mg Take 1 [facility] tartrate 25 1-01 tablet by [facility] of mg tablet 00:00: mouth 2 [place] 00 (two) Medical times Branch daily. omeprazole 2020-02 Yes [id number] 20mg Take 1 [facility] 20 mg 1-01 capsule by [facility] of capsule 00:00: mouth [place] 00 daily. [facility] fluconazole 2020-02 Yes [id number] 100mg Take 1 [facility] 100 mg 1-01 tablet by [facility] of tablet 00:00: mouth [place] 00 daily. [facility] linaCLOtide 2020-02 Yes [id number] 145ug Take 1 [facility] (LINZESS) 1-01 capsule by [facility] 145 mcg 00:00: mouth once [place] capsule 00 daily as Medical needed for Branch Constipati on. apixaban 5 2020-02 Yes 5mg Take 1 [facility] mg tablet 1-01 tablet by [facility] o f 00:00: mouth 2 [place] 00 (two) Medical times Branch daily. Indication s: take 1 tablet by mouth 2 (two) times daily. ezetimibe 2020-02 Yes [id number] 10mg Take 1 [facility] 10 mg 1-01 tablet by [facility] of tablet 00:00: mouth [place] 00 daily. [facility] metoprolol 2020-02 Yes [id number] 25mg Take 1 [facility] tartrate 25 1-01 tablet by [facility] of mg tablet 00:00: mouth 2 [place] 00 (two) Medical times Branch daily. omeprazole 2020-02 Yes [id number] 20mg Take 1 [facility] 20 mg 1-01 capsule by [facility] capsule 00:00: mouth [place] 00 daily. [facility] fluconazole 2020-02 Yes [id number] 100mg Take 1 [facility] 100 mg 1-01 tablet by [facility] of tablet 00:00: mouth [place] 00 daily. [facility] linaCLOtide 2020-02 Yes [id number] 145ug Take 1 [facility] (LINZESS) 1-01 capsule by [facility] 145 mcg 00:00: mouth once [place] capsule 00 daily as Medical needed for Branch Constipati on. apixaban 5 2020-02 Yes 5mg Take 1 [facility] mg tablet 1-01 tablet by [facility] o f 00:00: mouth 2 [place] (two) Medical times Branch daily. Indication s: take 1 tablet by mouth 2 (two) times daily. ezetimibe 2020-02 Yes [id number] 10mg Take 1 [facility] 10 mg 1-01 tablet by [facility] of tablet 00:00: mouth [place] 00 daily. [facility] metoprolol 2020-02 Yes [id number] 25mg Take 1 [facility] tartrate 25 1-01 tablet by [facility] of mg tablet 00:00: mouth 2 [place] 00 (two) Medical times Branch daily. omeprazole 2020-02 Yes [id number] 20mg Take 1 [facility] 20 mg 1-01 capsule by [facility] of capsule 00:00: mouth [place] 00 daily. [facility] fluconazole 2020-02 Yes [id number] 100mg Take 1 [facility] 100 mg 1-01 tablet by [facility] of tablet 00:00: mouth [place] 00 daily. [facility] linaCLOtide 2020-02 Yes [id number] 145ug Take 1 [facility] (LINZESS) 1-01 capsule by [facility] of 145 mcg 00:00: mouth once [place] capsule 00 daily as Medical needed for Branch Constipati on. apixaban 2020-02 Yes 5mg Take 1 [facility] mg tablet 1-01 tablet by [facility] o f 00:00: mouth 2 [place] (two) Medical times Branch daily. Indication s: take 1 tablet by mouth 2 (two) times daily. ezetimibe 2020-02 Yes [id number] 10mg Take 1 [facility] 10 mg 1-01 tablet by [facility] of tablet 00:00: mouth [place] 00 daily. [facility] metoprolol 2020-02 Yes [id number] 25mg Take 1 [facility] tartrate 25 1-01 tablet by [facility] of mg tablet 00:00: mouth 2 (two) Medical times Branch daily. linaCLOtide 2020-02 Yes [id number] 145ug Take 1 [facility] (LINZESS) 1-01 capsule by [facility] 145 mcg 00:00: mouth once [place] capsule 00 daily as Medical needed for Branch Constipati on. apixaban 2020-02 Yes 5mg Take 1 [facility] mg tablet 1-01 tablet by [facility] o f 00:00: mouth 2 (two) Medical times Branch daily. Indication s: take 1 tablet by mouth 2 (two) times daily. ezetimibe 2020-02 Yes [id number] 10mg Take 1 [facility] 10 mg 1-01 tablet by [facility] of tablet 00:00: mouth [place] 00 daily. [facility] metoprolol 2020-02 Yes [id number] 25mg Take 1 [facility] tartrate 25 1-01 tablet by [facility] of mg tablet 00:00: mouth 2 [place] (two) Medical times Branch daily. linaCLOtide 2020-02 Yes [id number] 145ug Take 1 [facility] (LINZESS) 1-01 capsule by [facility] of 145 mcg 00:00: mouth once [place] capsule 00 daily as Medical needed for Branch Constipati on. apixaban 2020-02 Yes 5mg Take 1 [facility] mg tablet 1-01 tablet by [facility] o f 00:00: mouth 2 [place] 00 (two) Medical times Branch daily. Indication s: take 1 tablet by mouth 2 (two) times daily. metoprolol 2020-02 Yes [id number] 25mg Take 1 [facility] tartrate 25 1-01 tablet by [facility] of mg tablet 00:00: mouth 2 (two) Medical times Branch daily. linaCLOtide 2020-02 Yes [id number] 145ug Take 1 [facility] (LINZESS) 1-01 capsule by [facility] of 145 mcg 00:00: mouth once [place] capsule 00 daily as Medical needed for Branch Constipati on. apixaban 2020-02 Yes 5mg Take 1 [facility] mg tablet 1-01 tablet by [facility] o f 00:00: mouth 2 (two) Medical times Branch daily. Indication s: take 1 tablet by mouth 2 (two) times daily. metoprolol 2020-02 Yes [id number] 25mg Take 1 [facility] tartrate 25 1-01 tablet by [facility] of mg tablet 00:00: mouth 2 (two) Medical times Branch daily. linaCLOtide 2020-02 Yes [id number] 145ug Take 1 [facility] (LINZESS) 1-01 capsule by [facility] of 145 mcg 00:00: mouth once [place] capsule 00 daily as Medical needed for Branch Constipati on. apixaban 2020-02 Yes 5mg Take 1 [facility] mg tablet 1-01 tablet by [facility] o f 00:00: mouth 2 (two) Medical times Branch daily. Indication s: take 1 tablet by mouth 2 (two) times daily. metoprolol 2020-02 Yes [id number] 25mg Take 1 [facility] tartrate 25 1-01 tablet by [facility] of mg tablet 00:00: mouth (two) Medical times Branch daily. linaCLOtide 2020-02 Yes [id number] 145ug Take 1 [facility] (LINZESS) 1-01 capsule by [facility] of 145 mcg 00:00: mouth once [place] capsule 00 daily as Medical needed for Branch Constipati on. apixaban 2020-02 Yes 5mg Take 1 [facility] mg tablet 1-01 tablet by [facility] o f 00:00: mouth 2 (two) Medical times Branch daily. Indication s: take 1 tablet by mouth 2 (two) times daily. metoprolol 2020-02 Yes [id number] 25mg Take 1 [facility] tartrate 25 1-01 tablet by [facility] of mg tablet 00:00: mouth 2 (two) Medical times Branch daily. linaCLOtide 2020-02 Yes [id number] 145ug Take 1 [facility] (LINZESS) 1-01 capsule by [facility] of 145 mcg 00:00: mouth once [place] capsule 00 daily as Medical needed for Branch Constipati on. apixaban 2020-02 Yes 5mg Take 1 [facility] mg tablet 1-01 tablet by [facility] o f 00:00: mouth 2 (two) Medical times Branch daily. Indication s: take 1 tablet by mouth 2 (two) times daily. metoprolol 2020-02 Yes [id number] 25mg Take 1 [facility] tartrate 25 1-01 tablet by [facility] of mg tablet 00:00: mouth 2 (two) Medical times Branch daily. linaCLOtide 2020-02 Yes [id number] 145ug Take 1 [facility] (LINZESS) 1-01 capsule by [facility] of 145 mcg 00:00: mouth once [place] capsule 00 daily as Medical needed for Branch Constipati on. apixaban 2020-02 Yes 5mg Take 1 [facility] mg tablet 1-01 tablet by [facility] o f 00:00: mouth 2 (two) Medical times Branch daily. Indication s: take 1 tablet by mouth 2 (two) times daily. metoprolol 2020-02 Yes [id number] 25mg Take 1 [facility] tartrate 25 1-01 tablet by [facility] of mg tablet 00:00: mouth 2 (two) Medical times Branch daily. linaCLOtide 2020-02 Yes [id number] 145ug Take 1 [facility] (LINZESS) 1-01 capsule by [facility] of 145 mcg 00:00: mouth once [place] capsule 00 daily as Medical needed for Branch Constipati on. apixaban 2020-02 Yes 5mg Take 1 [facility] mg tablet 1-01 tablet by [facility] o f 00:00: mouth 2 (two) Medical times Branch daily. Indication s: take 1 tablet by mouth 2 (two) times daily. metoprolol 2020-02 Yes [id number] 25mg Take 1 [facility] tartrate 25 1-01 tablet by [facility] of mg tablet 00:00: mouth 2 (two) Medical times Branch daily. linaCLOtide 2020-02 Yes [id number] 145ug Take 1 [facility] (LINZESS) 1-01 capsule by [facility] of 145 mcg 00:00: mouth once [place] capsule 00 daily as Medical needed for Branch Constipati on. apixaban 2020-02 Yes 5mg Take 1 [facility] mg tablet 1-01 tablet by [facility] o f 00:00: mouth 2 [place] (two) Medical times Branch daily. Indication s: take 1 tablet by mouth 2 (two) times daily. metoprolol 2020-02 Yes [id number] 25mg Take 1 [facility] tartrate 25 1-01 tablet by [facility] of mg tablet 00:00: mouth 2 (two) Medical times Branch daily. linaCLOtide 2020-02 Yes [id number] 145ug Take 1 [facility] (LINZESS) 1-01 capsule by [facility] of 145 mcg 00:00: mouth once [place] capsule 00 daily as Medical needed for Branch Constipati on. apixaban 2020-02 Yes 5mg Take 1 [facility] mg tablet 1-01 tablet by [facility] o f 00:00: mouth 2 (two) Medical times Branch daily. Indication s: take 1 tablet by mouth 2 (two) times daily. metoprolol 2020-02 Yes [id number] 25mg Take 1 [facility] tartrate 25 1-01 tablet by [facility] of mg tablet 00:00: mouth 2 (two) Medical times Branch daily. linaCLOtide 2020-02 Yes [id number] 145ug Take 1 [facility] (LINZESS) 1-01 capsule by [facility] of 145 mcg 00:00: mouth once [place] capsule 00 daily as Medical needed for Branch Constipati on. apixaban 2020-02 Yes 5mg Take 1 [facility] mg tablet 1-01 tablet by [facility] o f 00:00: mouth 2 [place] 00 (two) Medical times Branch daily. Indication s: take 1 tablet by mouth 2 (two) times daily. metoprolol 2020-02 Yes [id number] 25mg Take 1 [facility] tartrate 25 1-01 tablet by [facility] of mg tablet 00:00: mouth 2 [place] 00 (two) Medical times Branch daily. linaCLOtide 2020-02 Yes [id number] 145ug Take 1 [facility] (LINZESS) 1-01 capsule by [facility] of 145 mcg 00:00: mouth once [place] capsule 00 daily as Medical needed for Branch Constipati on. apixaban 2020-02 Yes 5mg Take 1 [facility] mg tablet 1-01 tablet by [facility] o f 00:00: mouth 2 (two) Medical times Branch daily. Indication s: take 1 tablet by mouth 2 (two) times daily. metoprolol 2020-02 Yes [id number] 25mg Take 1 [facility] tartrate 25 1-01 tablet by [facility] of mg tablet 00:00: mouth 2 (two) Medical times Branch daily. linaCLOtide 2020-02 Yes [id number] 145ug Take 1 [facility] (LINZESS) 1-01 capsule by [facility] of 145 mcg 00:00: mouth once [place] capsule 00 daily as Medical needed for Branch Constipati on. apixaban 2020-02 Yes 5mg Take 1 [facility] mg tablet 1-01 tablet by [facility] o f 00:00: mouth 2 (two) Medical times Branch daily. Indication s: take 1 tablet by mouth 2 (two) times daily. metoprolol 2020-02 Yes [id number] 25mg Take 1 [facility] tartrate 25 1-01 tablet by [facility] of mg tablet 00:00: mouth 2 [place] (two) Medical times Branch daily. linaCLOtide 2020-02 Yes [id number] 145ug Take 1 [facility] (LINZESS) 1-01 capsule by [facility] of 145 mcg 00:00: mouth once [place] capsule 00 daily as Medical needed for Branch Constipati on. apixaban 2020-02 Yes 5mg Take 1 [facility] mg tablet 1-01 tablet by [facility] o f 00:00: mouth 2 (two) Medical times Branch daily. Indication s: take 1 tablet by mouth 2 (two) times daily. metoprolol 2020-02 Yes [id number] 25mg Take 1 [facility] tartrate 25 1-01 tablet by [facility] of mg tablet 00:00: mouth 2 (two) Medical times Branch daily. linaCLOtide 2020-02 Yes [id number] 145ug Take 1 [facility] (LINZESS) 1-01 capsule by [facility] of 145 mcg 00:00: mouth once [place] capsule 00 daily as Medical needed for Branch Constipati on. apixaban 5 2021-1 Yes 5mg Take 1 [facility] mg tablet 1-01 tablet by [facility] o f 00:00: mouth 2 (two) Medical times Branch daily. Indication s: take 1 tablet by mouth 2 (two) times daily. metoprolol 2020-02 Yes [id number] 25mg Take 1 [facility] tartrate 25 1-01 tablet by [facility] of mg tablet 00:00: mouth 2 (two) Medical times Branch daily. linaCLOtide 2020-02 Yes [id number] 145ug Take 1 [facility] (LINZESS) 1-01 capsule by [facility] of 145 mcg 00:00: mouth once [place] capsule 00 daily as Medical needed for Branch Constipati on. apixaban 2020-02 Yes 5mg Take 1 [facility] mg tablet 1-01 tablet by [facility] o f 00:00: mouth 2 [place] (two) Medical times Branch daily. Indication s: take 1 tablet by mouth 2 (two) times daily. metoprolol 2020-02 Yes [id number] 25mg Take 1 [facility] tartrate 25 1-01 tablet by [facility] of mg tablet 00:00: mouth 2 (two) Medical times Branch daily. linaCLOtide 2020-02 Yes [id number] 145ug Take 1 [facility] (LINZESS) 1-01 capsule by [facility] of 145 mcg 00:00: mouth once [place] capsule 00 daily as Medical needed for Branch Constipati on. apixaban 2020-02 Yes 5mg Take 1 [facility] mg tablet 1-01 tablet by [facility] o f 00:00: mouth 2 (two) Medical times Branch daily. Indication s: take 1 tablet by mouth 2 (two) times daily. linaCLOtide 2020-02 Yes [id number] 145ug Take 1 [facility] (LINZESS) 1-01 capsule by [facility] of 145 mcg 00:00: mouth once [place] capsule 00 daily as Medical needed for Branch Constipati on. apixaban 2020-02 Yes 5mg Take 1 [facility] mg tablet 1-01 tablet by [facility] o f 00:00: mouth 2 (two) Medical times Branch daily. Indication s: take 1 tablet by mouth 2 (two) times daily. linaCLOtide 2020-02 Yes [id number] 145ug Take 1 [facility] (LINZESS) 1-01 capsule by [facility] of 145 mcg 00:00: mouth once [place] capsule 00 daily as Medical needed for Branch Constipati on. apixaban 5 2020-02 Yes 5mg Take 1 [facility] mg tablet 1-01 tablet by [facility] o f 00:00: mouth 2 [place] 00 (two) Medical times Branch daily. Indication s: take 1 tablet by mouth 2 (two) times daily. linaCLOtide 2020-02 Yes [id number] 145ug Take 1 [facility] (LINZESS) 1-01 capsule by [facility] of 145 mcg 00:00: mouth once [place] capsule 00 daily as Medical needed for Branch Constipati on. linaCLOtide 2020-02 Yes [id number] 145ug Take 1 [facility] (LINZESS) 1-01 capsule by [facility] of 145 mcg 00:00: mouth once [place] capsule 00 daily as Medical needed for Branch Constipati on. linaCLOtide 2020-02 Yes [id number] 145ug Take 1 [facility] (LINZESS) 1-01 capsule by [facility] of 145 mcg 00:00: mouth once [place] capsule 00 daily as Medical needed for Branch Constipati on. linaCLOtide 2020-02 Yes [id number] 145ug Take 1 [facility] (LINZESS) 1-01 capsule by [facility] of 145 mcg 00:00: mouth once [place] capsule 00 daily as Medical needed for Branch Constipati on. linaCLOtide 2020-02 Yes [id number] 145ug Take 1 [facility] (LINZESS) 1-01 capsule by [facility] of 145 mcg 00:00: mouth once [place] capsule 00 daily as Medical needed for Branch Constipati on. linaCLOtide 2020-02 Yes [id number] 145ug Take 1 [facility] (LINZESS) 1-01 capsule by [facility] of 145 mcg 00:00: mouth once [place] capsule 00 daily as Medical needed for Branch Constipati on. linaCLOtide 2020-02 Yes [id number] 145ug Take 1 [facility] (LINZESS) 1-01 capsule by [facility] of 145 mcg 00:00: mouth once [place] capsule 00 daily as Medical needed for Branch Constipati on. linaCLOtide 2020-02 Yes [id number] 145ug Take 1 [facility] (LINZESS) 1-01 capsule by [facility] of 145 mcg 00:00: mouth once [place] capsule 00 daily as Medical needed for Branch Constipati on. linaCLOtide 2020-02 Yes [id number] 145ug Take 1 [facility] (LINZESS) 1-01 capsule by [facility] of 145 mcg 00:00: mouth once [place] capsule 00 daily as Medical needed for Branch Constipati on. linaCLOtide 2020-02 Yes [id number] 145ug Take 1 [facility] (LINZESS) 1-01 capsule by [facility] of 145 mcg 00:00: mouth once [place] capsule 00 daily as Medical needed for Branch Constipati on. linaCLOtide 2020-02 Yes [id number] 145ug Take 1 [facility] (LINZESS) 1-01 capsule by [facility] of 145 mcg 00:00: mouth once [place] capsule 00 daily as Medical needed for Branch Constipati on. linaCLOtide 2020-02 Yes [id number] 145ug Take 1 [facility] (LINZESS) 1-01 capsule by [facility] of 145 mcg 00:00: mouth once [place] capsule 00 daily as Medical needed for Branch Constipati on. linaCLOtide 2020-02 Yes [id number] 145ug Take 1 [facility] (LINZESS) 1-01 capsule by [facility] of 145 mcg 00:00: mouth once [place] capsule 00 daily as Medical needed for Branch Constipati on. linaCLOtide 2020-02 Yes [id number] 145ug Take 1 [facility] (LINZESS) 1-01 capsule by [facility] of 145 mcg 00:00: mouth once [place] capsule 00 daily as Medical needed for Branch Constipati on. linaCLOtide 2020-02 Yes [id number] 145ug Take 1 [facility] (LINZESS) 1-01 capsule by [facility] of 145 mcg 00:00: mouth once [place] capsule 00 daily as Medical needed for Branch Constipati on. linaCLOtide 2020-02 Yes [id number] 145ug Take 1 [facility] (LINZESS) 1-01 capsule by [facility] of 145 mcg 00:00: mouth once [place] capsule 00 daily as Medical needed for Branch Constipati on. linaCLOtide 2020-02 Yes [id number] 145ug Take 1 [facility] (LINZESS) 1-01 capsule by [facility] of 145 mcg 00:00: mouth once [place] capsule 00 daily as Medical needed for Branch Constipati on. linaCLOtide 2020-02 Yes [id number] 145ug Take 1 [facility] (LINZESS) 1-01 capsule by [facility] of 145 mcg 00:00: mouth once [place] capsule 00 daily as Medical needed for Branch Constipati on. linaCLOtide 2020-02 Yes [id number] 145ug Take 1 [facility] (LINZESS) 1-01 capsule by [facility] of 145 mcg 00:00: mouth once [place] capsule 00 daily as Medical needed for Branch Constipati on. linaCLOtide 2020-02 Yes [id number] 145ug Take 1 [facility] (LINZESS) 1-01 capsule by [facility] of 145 mcg 00:00: mouth once [place] capsule 00 daily as Medical needed for Branch Constipati on. linaCLOtide 2020-02 Yes [id number] 145ug Take 1 [facility] (LINZESS) 1-01 capsule by [facility] of 145 mcg 00:00: mouth once [place] capsule 00 daily as Medical needed for Branch Constipati on. linaCLOtide 2020-02 Yes [id number] 145ug Take 1 [facility] (LINZESS) 1-01 capsule by [facility] of 145 mcg 00:00: mouth once [place] capsule 00 daily as Medical needed for Branch Constipati on. linaCLOtide 2020-02 Yes [id number] 145ug Take 1 [facility] (LINZESS) 1-01 capsule by [facility] of 145 mcg 00:00: mouth once [place] capsule 00 daily as Medical needed for Branch Constipati on. linaCLOtide 2020-02 Yes [id number] 145ug Take 1 [facility] (LINZESS) 1-01 capsule by [facility] of 145 mcg 00:00: mouth once [place] capsule 00 daily as Medical needed for Branch Constipati on. linaCLOtide 2020-02 Yes [id number] 145ug Take 1 [facility] (LINZ[facility]) 1-01 capsule by [facility] 145 mcg 00:00[place] capsule 00 daily as Medical needed for Branch Constipati on. linaCLOtide 2020-02 Yes [id number] 145ug Take 1 [facility] (LINZESS) 1-01 capsule by [facility] of 145 mcg 00:00: mouth [place] capsule 00 daily as Medical needed for Branch Constipati on. linaCLOtide 2020-02 Yes [id number] 145ug Take 1 [facility] (LINZESS) 1-01 capsule by [facility] of 145 mcg 00:00: mouth [place] capsule 00 daily as Medical needed for Branch Constipati on. linaCLOtide 2020-02 Yes [id number] 145ug Take 1 [facility] (LINZESS) 1-01 capsule by [facility] of 145 mcg 00:00: mouth once [place] capsule 00 daily as Medical needed for Branch Constipati on. linaCLOtide 2020-02 Yes [id number] 145ug Take 1 [facility] (LINZESS) 1-01 capsule by [facility] of 145 mcg 00:00: mouth once [place] capsule 00 daily as Medical needed for Branch Constipati on. linaCLOtide 2020-02 Yes [id number] 145ug Take 1 [facility] (LINZESS) 1-01 capsule by [facility]y of 145 mcg 00:00: mouth once [place] capsule 00 daily as Medical needed for Branch Constipati on. linaCLOtide 2020-02 Yes [id number] 145ug Take 1 [facility] (LINZESS) 1-01 capsule by [facility] of 145 mcg 00:00: mouth once [place] capsule 00 daily as Medical needed for Branch Constipati on. linaCLOtide 2020-02 Yes [id number] 145ug Take 1 [facility] (LINZESS) 1-01 capsule by [facility]y of 145 mcg 00:00: mouth once [place] capsule 00 daily as Medical needed for Branch Constipati on. linaCLOtide 2020-02 Yes [id number] 145ug Take 1 [facility] (LINZESS) 1-01 capsule by [facility]y of 145 mcg 00:00: mouth once [place] capsule 00 daily as Medical needed for Branch Constipati on. linaCLOtide 2020-02 Yes [id number] 145ug Take 1 [facility] (LINZESS) 1-01 capsule by [facility]y of 145 mcg 00:00: mouth once [place] capsule 00 daily as Medical needed for Branch Constipati on. linaCLOtide 2020-02 Yes [id number] 145ug Take 1 [facility] (LINZESS) 1-01 capsule by [facility]y of 145 mcg 00:00: mouth once [place] capsule 00 daily as Medical needed for Branch Constipati on. linaCLOtide 2020-02 Yes [id number] 145ug Take 1 [facility] (LINZESS) 1-01 capsule by [facility]y of 145 mcg 00:00: mouth once [place] capsule 00 daily as Medical needed for Branch Constipati on. linaCLOtide 2020-02 Yes [id number] 145ug Take 1 [facility] (LINZESS) 1-01 capsule by [facility]y of 145 mcg 00:00: mouth once [place] capsule 00 daily as Medical needed for Branch Constipati on. linaCLOtide 2020-02 Yes [id number] 145ug Take 1 [facility] (LINZESS) 1-01 capsule by [facility] of 145 mcg 00:00: mouth once [place] capsule 00 daily as Medical needed for Branch Constipati on. linaCLOtide 2020-02 Yes [id number] 145ug Take 1 [facility] (LINZESS) 1-01 capsule by ity of 145 mcg 00:00: mouth once [place] capsule 00 daily as Medical needed for Branch Constipati on. linaCLOtide 2020-02 Yes [id number] 145ug Take 1 [facility] (LINZESS) 1-01 capsule by [facility]y of 145 mcg 00:00: mouth once [place] capsule 00 daily as Medical needed for Branch Constipati on. linaCLOtide 2020-02 Yes [id number] 145ug Take 1 [facility] (LINZESS) 1-01 capsule by [facility]y of 145 mcg 00:00: mouth once [place] capsule 00 daily as Medical needed for Branch Constipati on. linaCLOtide 2020-02 Yes [id number] 145ug Take 1 [facility] (LINZESS) 1-01 capsule by [facility] of 145 mcg 00:00: mouth once [place] capsule 00 daily as Medical needed for Branch Constipati on. linaCLOtide 2020-02 Yes [id number] 145ug Take 1 [facility] (LINZESS) 1-01 capsule by [facility]y of 145 mcg 00:00: mouth once [place] capsule 00 daily as Medical needed for Branch Constipati on. linaCLOtide 2020-02 Yes [id number] 145ug Take 1 [facility] (LINZESS) 1-01 capsule by ity of 145 mcg 00:00: mouth once [place] capsule 00 daily as Medical needed for Branch Constipati on. linaCLOtide 2020-02 Yes [id number] 145ug Take 1 [facility] (LINZESS) 1-01 capsule by ity of 145 mcg 00:00: mouth once [place] capsule 00 daily as Medical needed for Branch Constipati on. linaCLOtide 2020-02 Yes [id number] 145ug Take 1 [facility] (LINZESS) 1-01 capsule by ity of 145 mcg 00:00: mouth once [place] capsule 00 daily as Medical needed for Branch Constipati on. linaCLOtide 2020-02 Yes [id number] 145ug Take 1 [facility] (LINZESS) 1-01 capsule by [facility]y of 145 mcg 00:00: mouth once [place] capsule 00 daily as Medical needed for Branch Constipati on. linaCLOtide 2020-02 Yes [id number] 145ug Take 1 [facility] (LINZESS) 1-01 capsule by ity of 145 mcg 00:00: mouth once [place] capsule 00 daily as Medical needed for Branch Constipati on. linaCLOtide 2020-02 Yes [id number] 145ug Take 1 [facility] (LINZESS) 1-01 capsule by [facility]y of 145 mcg 00:00: mouth once [place] capsule 00 daily as Medical needed for Branch Constipati on. linaCLOtide 2020-02 Yes [id number] 145ug Take 1 [facility] (LINZESS) 1-01 capsule by ity of 145 mcg 00:00: mouth once [place] capsule 00 daily as Medical needed for Branch Constipati on. linaCLOtide 2020-02 Yes [id number] 145ug Take 1 [facility] (LINZESS) 1-01 capsule by ity of 145 mcg 00:00: mouth once [place] capsule 00 daily as Medical needed for Branch Constipati on. linaCLOtide 2020-02 Yes [id number] 145ug Take 1 [facility] (LINZESS) 1-01 capsule by ity of 145 mcg 00:00: mouth once [place] capsule 00 daily as Medical needed for Branch Constipati on. linaCLOtide 2020-02 Yes [id number] 145ug Take 1 [facility] (LINZESS) 1-01 capsule by ity of 145 mcg 00:00: mouth once [place] capsule 00 daily as Medical needed for Branch Constipati on. linaCLOtide 2020-02 Yes [id number] 145ug Take 1 [facility] (LINZESS) 1-01 capsule by [facility]y of 145 mcg 00:00: mouth once [place] capsule 00 daily as Medical needed for Branch Constipati on. linaCLOtide 2020-02 Yes [id number] 145ug Take 1 [facility] (LINZESS) 1-01 capsule by ity of 145 mcg 00:00: mouth once [place] capsule 00 daily as Medical needed for Branch Constipati on. linaCLOtide 2020-02 Yes [id number] 145ug Take 1 [facility] (LINZESS) 1-01 capsule by [facility]y of 145 mcg 00:00: mouth once [place] capsule 00 daily as Medical needed for Branch Constipati on. linaCLOtide 2020-02 Yes [id number] 145ug Take 1 [facility] (LINZESS) 1-01 capsule by [facility]y of 145 mcg 00:00: mouth once [place] capsule 00 daily as Medical needed for Branch Constipati on. linaCLOtide 2020-02 Yes [id number] 145ug Take 1 [facility] (LINZESS) 1- capsule by ity of 145 mcg 00:00: mouth once [place] capsule 00 daily as Medical needed for Branch Constipati on. apixaban 5 2020-02- No 5mg Take 1 [facility] ers mg tablet 02-0816 tablet by ity of 00:00: 00:00 mouth 2 [place] 00 :00 (two) Medical times Branch daily. Indication s: take 1 tablet by mouth 2 (two) times daily. metoprolol 2020-02- No [id number] 25mg Take 1 [facility] tartrate 25 02-08 tablet by it y of mg tablet 00:00: 00:00 mouth [place] :[place] (two) Medical times Branch daily. ezetimibe 2020-02- No [id number] 10mg Take 1 [facility] 10 mg 02-08 tablet by ity of tablet 00:00: 00:00 mouth [place] 00 :00 daily. Medical Branch omeprazole 2020-02- No [id number] 20mg Take 1 [facility] 20 mg 02-0820 capsule by ity of capsule 00:00: 00:00 mouth [place] 00 :00 daily. Medical Branch fluconazole 2020-02- No [id number] 100mg Take 1 [facility] 100 mg 02-0820 tablet by ity of tablet 00:00: 00:00 mouth [place] 00 :00 daily. Medical Branch Arm Brace Yes [id number] PRODUCT: [facility] Misc 8-30 MYOPRO ity of 00:00: BRACE; [place] 00 Sig: Use Medical as Branch directed; ICD-10 codes: Z86.73, G81.94 Arm Brace Yes [id number] PRODUCT: [facility] Misc 8-30 MYOPRO ity of 00:00: BRACE; [place] 00 Sig: Use Medical as Branch directed; ICD-10 codes: Z86.73, G81.94 Arm Brace 202-0 Yes [id number] [facility] of 00:00: BRACE; [place] 00 Sig: Use Medical as Branch directed; ICD-10 codes: Z86.73, G81.94 Arm Brace 2020-0 Yes [id number] PRODUCT: [facility] 8-30 MYOPRO ity of 00:00: BRACE; [place] 00 Sig: Use Medical as Branch directed; ICD-10 codes: Z86.73, G81.94 Arm Brace 2020-0 Yes [id number] PRODUCT: [facility] 8-30 MYOPRO ity of 00:00: BRACE; [place] 00 Sig: Use Medical as Branch directed; ICD-10 codes: Z86.73, G81.94 Arm Brace 2020-0 Yes [id number] PRODUCT: [facility] 8-30 MYOPRO ity of 00:00: BRACE; [place] 00 Sig: Use Medical as Branch directed; ICD-10 codes: Z86.73, G81.94 Arm Brace 2020-0 Yes [id number] PRODUCT: [facility] 8-30 MYOPRO ity of 00:00: BRACE; [place] 00 Sig: Use Medical as Branch directed; ICD-10 codes: Z86.73, G81.94 Arm Brace 2020-0 Yes [id number] PRODUCT: [facility] 8-30 MYOPRO ity of 00:00: BRACE; [place] 00 Sig: Use Medical as Branch directed; ICD-10 codes: Z86.73, G81.94 Arm Brace 2020-0 Yes [id number] PRODUCT: [facility] 8-30 MYOPRO ity of 00:00: BRACE; [place] 00 Sig: Use Medical as Branch directed; ICD-10 codes: Z86.73, G81.94 Arm Brace 2020-0 Yes [id number] [facility] MY[facility]RO ity of 00:00: BRACE; [place] 00 Sig: Use Medical as Branch directed; ICD-10 codes: Z86.73, G81.94 Arm Brace 2021-0 Yes [id number] PRODUCT: [facility] 8-30 MYOPRO ity of 00:00: BRACE; [place] 00 Sig: Use Medical as Branch directed; ICD-10 codes: Z86.73, G81.94 Arm Brace 2020-0 Yes [id number] [facility] MYOPRO ity of 00:00: BRACE; [place] 00 Sig: Use Medical as Branch directed; ICD-10 codes: Z86.73, G81.94 Arm Brace 2020-0 Yes [id number] PRODUCT: [facility] MYOPRO ity of 00:00: BRACE; [place] 00 Sig: Use Medical as Branch directed; ICD-10 codes: Z86.73, G81.94 Arm Brace 2020-0 Yes [id number] PRODUCT: [facility] MYOPRO ity of 00:00: BRACE; [place] 00 Sig: Use Medical as Branch directed; ICD-10 codes: Z86.73, G81.94 Arm Brace 2020-0 Yes [id number] PRODUCT: [facility] MYOPRO ity of 00:00: BRACE; [place] 00 Sig: Use Medical as Branch directed; ICD-10 codes: Z86.73, G81.94 Arm Brace 2020-0 Yes [id number] PRODUCT: [facility] 8-30 MYOPRO ity of 00:00: BRACE; [place] 00 Sig: Use Medical as Branch directed; ICD-10 codes: Z86.73, G81.94 Arm Brace 2020-0 Yes [id number] PRODUCT: [facility] 8-30 MYOPRO ity of 00:00: BRACE; [place] 00 Sig: Use Medical as Branch directed; ICD-10 codes: Z86.73, G81.94 Arm Brace 2020-0 Yes [id number] PR[facility]: [facility] MYOPRO ity of 00:00: BRACE; [place] 00 Sig: Use Medical as Branch directed; ICD-10 codes: Z86.73, G81.94 Arm Brace 2020-0 Yes [id number] PRODUCT: [facility] Misc 8-30 MYOPRO ity of 00:00: BRACE; [place] 00 Sig: Use Medical as Branch directed; ICD-10 codes: Z86.73, G81.94 Arm Brace 2021-0 Yes [id number] PRODUCT: [facility] Misc 8-30 MYOPRO ity of 00:00: BRACE; [place] 00 Sig: Use Medical as Branch directed; ICD-10 codes: Z86.73, G81.94 Arm Brace Yes [id number] PRODUCT: [facility] Misc 8-30 MYOPRO ity of 00:00: BRACE; [place] 00 Sig: Use Medical as Branch directed; ICD-10 codes: Z86.73, G81.94 Arm Brace 0 Yes [id number] PRODUCT: [facility] Misc 8-30 MYOPRO ity of 00:00: BRACE; [place] 00 Sig: Use Medical as Branch directed; ICD-10 codes: Z86.73, G81.94 Arm Brace Yes [id number] PRODUCT: [facility] Misc 8-30 MYOPRO ity of 00:00: BRACE; [place] 00 Sig: Use Medical as Branch directed; ICD-10 codes: Z86.73, G81.94 Arm Brace Yes [id number] [facility] MYOPRO ity of 00:00: BRACE; [place] 00 Sig: Use Medical as Branch directed; ICD-10 codes: Z86.73, G81.94 Arm Brace 0 Yes [id number] PRODUCT: [facility] 8[facility] MYOPRO ity of 00:00: BRACE; [place] 00 Sig: Use Medical as Branch directed; ICD-10 codes: Z86.73, G81.94 Arm Brace 0 Yes [id number] PRODUCT: [facility] 8[facility] MYOPRO ity of 00:00: BRACE; [place] 00 Sig: Use Medical as Branch directed; ICD-10 codes: Z86.73, G81.94 Arm Brace 0 Yes [id number] PRODUCT: [facility] Misc 8-30 MYOPRO ity of 00:00: BRACE; [place] 00 Sig: Use Medical as Branch directed; ICD-10 codes: Z86.73, G81.94 Arm Brace 0 Yes [id number] PRODUCT: [facility] Misc 8-30 MYOPRO ity of 00:00: BRACE; [place] 00 Sig: Use Medical as Branch directed; ICD-10 codes: Z86.73, G81.94 Arm Brace 2021-0 Yes [id number] PRODUCT: [facility] Misc 8-30 MYOPRO ity of 00:00: BRACE; [place] 00 Sig: Use Medical as Branch directed; ICD-10 codes: Z86.73, G81.94 Arm Brace 2020-0 Yes [id number] PRODUCT: [facility] 8-30 MYOPRO ity of 00:00: BRACE; [place] 00 Sig: Use Medical as Branch directed; ICD-10 codes: Z86.73, G81.94 Arm Brace 2020-0 Yes [id number] [facility] MYOPRO ity of 00:00: BRACE; [place] 00 Sig: Use Medical as Branch directed; ICD-10 codes: Z86.73, G81.94 Arm Brace 2020-0 Yes [id number] PRODUCT: [facility] Misc 8-30 MYOPRO ity of 00:00: BRACE; [place] 00 Sig: Use Medical as Branch directed; ICD-10 codes: Z86.73, G81.94 Arm Brace 2020-0 Yes [id number] PRODUCT: [facility] Misc 8-30 MYOPRO ity of 00:00: BRACE; [place] 00 Sig: Use Medical as Branch directed; ICD-10 codes: Z86.73, G81.94 Arm Brace 2020-0 Yes [id number] PRODUCT: [facility] MYOPRO ity of 00:00: BRACE; [place] 00 Sig: Use Medical as Branch directed; ICD-10 codes: Z86.73, G81.94 Arm Brace 2020-0 Yes [id number] PRODUCT: [facility] 8[facility] MYOPRO ity of 00:00: BRACE; [place] 00 Sig: Use Medical as Branch directed; ICD-10 codes: Z86.73, G81.94 Arm Brace 2020-0 Yes [id number] PRODUCT: [facility] Misc 8-30 MYOPRO ity of 00:00: BRACE; [place] 00 Sig: Use Medical as Branch directed; ICD-10 codes: Z86.73, G81.94 Arm Brace 2020-0 Yes [id number] PRODUCT: [facility] Misc 8-30 MYOPRO ity of 00:00: BRACE; [place] 00 Sig: Use Medical as Branch directed; ICD-10 codes: Z86.73, G81.94 Arm Brace 2020-0 Yes [id number] PRODUCT: [facility] Misc 8-30 MYOPRO ity of 00:00: BRACE; [place] 00 Sig: Use Medical as Branch directed; ICD-10 codes: Z86.73, G81.94 Arm Brace 2020-0 Yes [id number] PRODUCT: [facility] Misc 8-30 MYOPRO ity of 00:00: BRACE; [place] 00 Sig: Use Medical as Branch directed; ICD-10 codes: Z86.73, G81.94 Arm Brace 2020-0 Yes [id number] PRODUCT: [facility] Misc 8-30 MYOPRO ity of 00:00: BRACE; [place] 00 Sig: Use Medical as Branch directed; ICD-10 codes: Z86.73, G81.94 Arm Brace 2020-0 Yes [id number] PRODUCT: [facility] Misc 8-30 MYOPRO ity of 00:00: BRACE; [place] 00 Sig: Use Medical as Branch directed; ICD-10 codes: Z86.73, G81.94 Arm Brace 2020-0 Yes [id number] PRODUCT: [facility] Misc 8-30 MYOPRO ity of 00:00: BRACE; [place] 00 Sig: Use Medical as Branch directed; ICD-10 codes: Z86.73, G81.94 Arm Brace 2020-0 Yes [id number] PRODUCT: [facility] Misc 8-30 MYOPRO ity of 00:00: BRACE; [place] 00 Sig: Use Medical as Branch directed; ICD-10 codes: Z86.73, G81.94 Arm Brace 2020-0 Yes [id number] PRODUCT: [facility] Misc 8-30 MYOPRO ity of 00:00: BRACE; [place] 00 Sig: Use Medical as Branch directed; ICD-10 codes: Z86.73, G81.94 Arm Brace 2020-0 Yes [id number] PRODUCT: [facility] Misc 8-30 MYOPRO ity of 00:00: BRACE; [place] 00 Sig: Use Medical as Branch directed; ICD-10 codes: Z86.73, G81.94 Arm Brace 2020-0 Yes [id number] PRODUCT: [facility] Misc 8-30 MYOPRO ity of 00:00: BRACE; [place] 00 Sig: Use Medical as Branch directed; ICD-10 codes: Z86.73, G81.94 Arm Brace 2020-0 Yes [id number] PRODUCT: [facility] Misc 8-30 MYOPRO ity of 00:00: BRACE; [place] 00 Sig: Use Medical as Branch directed; ICD-10 codes: Z86.73, G81.94 Arm Brace 2020-0 Yes [id number] PRODUCT: [facility] Misc 8-30 MYOPRO ity of 00:00: BRACE; [place] 00 Sig: Use Medical as Branch directed; ICD-10 codes: Z86.73, G81.94 Arm Brace 2020-0 Yes [id number] PRODUCT: [facility] Misc 8-30 MYOPRO ity of 00:00: BRACE; [place] 00 Sig: Use Medical as Branch directed; ICD-10 codes: Z86.73, G81.94 Arm Brace 2020-0 Yes [id number] PRODUCT: [facility] Misc 8-30 MYOPRO ity of 00:00: BRACE; [place] 00 Sig: Use Medical as Branch directed; ICD-10 codes: Z86.73, G81.94 Arm Brace 2020-0 Yes [id number] PRODUCT: [facility] Misc 8-30 MYOPRO ity of 00:00: BRACE; [place] 00 Sig: Use Medical as Branch directed; ICD-10 codes: Z86.73, G81.94 Arm Brace 2020-0 Yes [id number] PRODUCT: [facility] Misc 8-30 MYOPRO ity of 00:00: BRACE; [place] 00 Sig: Use Medical as Branch directed; ICD-10 codes: Z86.73, G81.94 Arm Brace 2020-0 Yes [id number] PRODUCT: [facility] Misc 8-30 MYOPRO ity of 00:00: BRACE; [place] 00 Sig: Use Medical as Branch directed; ICD-10 codes: Z86.73, G81.94 Arm Brace 2020-0 Yes [id number] PRODUCT: [facility] Misc 8-30 MYOPRO ity of 00:00: BRACE; [place] 00 Sig: Use Medical as Branch directed; ICD-10 codes: Z86.73, G81.94 Arm Brace 2020-0 Yes [id number] PRODUCT: [facility] Misc 8-30 MYOPRO ity of 00:00: BRACE; [place] 00 Sig: Use Medical as Branch directed; ICD-10 codes: Z86.73, G81.94 Arm Brace 2020-0 Yes [id number] PRODUCT: [facility] Misc 8-30 MYOPRO ity of 00:00: BRACE; [place] 00 Sig: Use Medical as Branch directed; ICD-10 codes: Z86.73, G81.94 Arm Brace 2020-0 Yes [id number] PRODUCT: [facility] Misc 8-30 MYOPRO ity of 00:00: BRACE; [place] 00 Sig: Use Medical as Branch directed; ICD-10 codes: Z86.73, G81.94 Arm Brace 2020-0 Yes [id number] PRODUCT: [facility] Misc 8-30 MYOPRO ity of 00:00: BRACE; [place] 00 Sig: Use Medical as Branch directed; ICD-10 codes: Z86.73, G81.94 Arm Brace 2020-0 Yes [id number] PRODUCT: [facility] Misc 8-30 MYOPRO ity of 00:00: BRACE; [place] 00 Sig: Use Medical as Branch directed; ICD-10 codes: Z86.73, G81.94 Arm Brace 2020-0 Yes [id number] PRODUCT: [facility] Misc 8-30 MYOPRO ity of 00:00: BRACE; [place] 00 Sig: Use Medical as Branch directed; ICD-10 codes: Z86.73, G81.94 Arm Brace 2020-0 Yes [id number] PRODUCT: [facility] Misc 8-30 MYOPRO ity of 00:00: BRACE; [place] 00 Sig: Use Medical as Branch directed; ICD-10 codes: Z86.73, G81.94 Arm Brace 2020-0 Yes [id number] PRODUCT: [facility] Misc 8-30 MYOPRO ity of 00:00: BRACE; [place] 00 Sig: Use Medical as Branch directed; ICD-10 codes: Z86.73, G81.94 Arm Brace 2020-0 Yes [id number] PRODUCT: [facility] Misc 8-30 MYOPRO ity of 00:00: BRACE; [place] 00 Sig: Use Medical as Branch directed; ICD-10 codes: Z86.73, G81.94 Arm Brace 2020-0 Yes [id number] PRODUCT: [facility] Misc 8-30 MYOPRO ity of 00:00: BRACE; [place] 00 Sig: Use Medical as Branch directed; ICD-10 codes: Z86.73, G81.94 Arm Brace 2020-0 Yes [id number] PRODUCT: [facility] Misc 8-30 MYOPRO ity of 00:00: BRACE; [place] 00 Sig: Use Medical as Branch directed; ICD-10 codes: Z86.73, G81.94 Arm Brace 2020-0 Yes [id number] PRODUCT: [facility] Misc 8-30 MYOPRO ity of 00:00: BRACE; [place] 00 Sig: Use Medical as Branch directed; ICD-10 codes: Z86.73, G81.94 Arm Brace 2020-0 Yes [id number] PRODUCT: [facility] Misc 8-30 MYOPRO ity of 00:00: BRACE; [place] 00 Sig: Use Medical as Branch directed; ICD-10 codes: Z86.73, G81.94 Arm Brace 2020-0 Yes [id number] PRODUCT: [facility] Misc 8-30 MYOPRO ity of 00:00: BRACE; [place] 00 Sig: Use Medical as Branch directed; ICD-10 codes: Z86.73, G81.94 Arm Brace 2020-0 Yes [id number] PRODUCT: [facility] Misc 8-30 MYOPRO ity of 00:00: BRACE; [place] 00 Sig: Use Medical as Branch directed; ICD-10 codes: Z86.73, G81.94 Arm Brace 2020-0 Yes [id number] PRODUCT: [facility] Misc 8-30 MYOPRO ity of 00:00: BRACE; [place] 00 Sig: Use Medical as Branch directed; ICD-10 codes: Z86.73, G81.94 Arm Brace 2020-0 Yes [id number] PRODUCT: [facility] Misc 8-30 MYOPRO ity of 00:00: BRACE; [place] 00 Sig: Use Medical as Branch directed; ICD-10 codes: Z86.73, G81.94 Arm Brace 2020-0 Yes [id number] PRODUCT: [facility] Misc 8-30 MYOPRO ity of 00:00: BRACE; [place] 00 Sig: Use Medical as Branch directed; ICD-10 codes: Z86.73, G81.94 Arm Brace 2020-0 Yes [id number] PRODUCT: [facility] Misc 8-30 MYOPRO ity of 00:00: BRACE; [place] 00 Sig: Use Medical as Branch directed; ICD-10 codes: Z86.73, G81.94 Arm Brace 202-0 Yes [id number] PRODUCT: [facility] Misc 8-30 MYOPRO ity of 00:00: BRACE; [place] 00 Sig: Use Medical as Branch directed; ICD-10 codes: Z86.73, G81.94 Arm Brace 2020-0 Yes [id number] PRODUCT: [facility] Misc 8-30 MYOPRO ity of 00:00: BRACE; [place] 00 Sig: Use Medical as Branch directed; ICD-10 codes: Z86.73, G81.94 Arm Brace 2020-0 Yes [id number] PRODUCT: [facility] Misc 8-30 MYOPRO ity of 00:00: BRACE; [place] 00 Sig: Use Medical as Branch directed; ICD-10 codes: Z86.73, G81.94 Arm Brace 2020-0 Yes [id number] PRODUCT: [facility] Misc 8-30 MYOPRO ity of 00:00: BRACE; [place] 00 Sig: Use Medical as Branch directed; ICD-10 codes: Z86.73, G81.94 Arm Brace 2020-0 Yes [id number] PRODUCT: [facility] Misc 8-30 MYOPRO ity of 00:00: BRACE; [place] 00 Sig: Use Medical as Branch directed; ICD-10 codes: Z86.73, G81.94 Arm Brace 2020-0 Yes [id number] PRODUCT: [facility] Misc 8-30 MYOPRO ity of 00:00: BRACE; [place] 00 Sig: Use Medical as Branch directed; ICD-10 codes: Z86.73, G81.94 Arm Brace 2020-0 Yes [id number] PRODUCT: [facility] Misc 8-30 MYOPRO ity of 00:00: BRACE; [place] 00 Sig: Use Medical as Branch directed; ICD-10 codes: Z86.73, G81.94 Arm Brace 2020-0 Yes [id number] PRODUCT: [facility] Misc 8-30 MYOPRO ity of 00:00: BRACE; [place] 00 Sig: Use Medical as Branch directed; ICD-10 codes: Z86.73, G81.94 Arm Brace 202-0 Yes [id number] PRODUCT: [facility] Misc 8-30 MYOPRO ity of 00:00: BRACE; [place] 00 Sig: Use Medical as Branch directed; ICD-10 codes: Z86.73, G81.94 KCL 10 mEq 2020-0 Yes 10meq Take 10 [facility] vers tablet 8-06 mEq by ity of 15:56: mouth 2 [place] [address] (two) Medical times Branch daily. zinc 2020-0 Yes Take by [facility] sulfate 8-06 mouth ity of (ZINC-220 15:56: daily. [place] ORAL) 37 Medical Branch KCL 10 mEq 202-0 Yes 10meq Take 10 [facility] vers tablet 8-06 mEq by ity of 15:56: mouth 2 [place] [address] (two) Medical times Branch daily. zinc 2020-0 Yes Take by [facility] sulfate 8-06 mouth ity of (ZINC-220 15:56: daily. [place] ORAL) 37 Medical Branch KCL 10 mEq 2020-0 Yes 10meq Take 10 [facility] vers tablet 8-06 mEq by ity of 15:56: mouth 2 [place] [address] (two) Medical times Branch daily. zinc 2020-0 Yes Take by [facility] sulfate 8-06 mouth ity of (ZINC-220 15:56: daily. [place] ORAL) 37 Medical Branch KCL 10 mEq 2020-0 Yes 10meq Take 10 [facility] vers tablet 8-06 mEq by ity of 15:56: mouth 2 [place] [address] (two) Medical times Branch daily. zinc 2020-0 Yes Take by [facility] sulfate 8-06 mouth ity of (ZINC-220 15:56: daily. [place] ORAL) 37 Medical Branch gluc 2020-0 Yes Take by [facility] hernandez/chondro 8-06 mouth ity of hernandez A/vit 15:56: every 12 [place] C/Mn 36 (twelve) Medical (GLUCOSAMIN hours. Branch E 1500 COMPLEX ORAL) traMADol 50 1-0 Yes 50mg Take 50 mg [facility] mg tablet 8-06 by mouth ity of 15:56: every 6 [place] [address] (six) Medical hours as Branch needed. gluc 2021-0 Yes Take by [facility] hernandez/chondro 8-06 mouth ity of hernandez A/vit 15:56: every 12 [place] C/Mn 36 (twelve) Medical (GLUCOSAMIN hours. Branch E 1500 COMPLEX ORAL) traMADol 50 2021-0 Yes 50mg Take 50 mg [facility] mg tablet 8-06 by mouth ity of 15:56: every 6 [place] [address] (six) Medical hours as Branch needed. gluc 2021-0 Yes Take by [facility] hernandez/chondro 8-06 mouth ity of hernandez A/vit 15:56: every 12 [place] C/Mn 36 (twelve) Medical (GLUCOSAMIN hours. Branch E 1500 COMPLEX ORAL) traMADol 50 2020-0 Yes 50mg Take 50 mg [facility] mg tablet 8-06 by mouth ity of 15:56: every 6 [place] 36 (six) Medical hours as Branch needed. gluc 2020-0 Yes Take by [facility] hernandez/chondro 8-06 mouth ity of hernandez A/vit 15:56: every 12 [place] C/Mn 36 (twelve) Medical (GLUCOSAMIN hours. Branch E 1500 COMPLEX ORAL) traMADol 50 2020-0 Yes 50mg Take 50 mg [facility] mg tablet 8-06 by mouth ity of 15:56: every 6 [place] 36 (six) Medical hours as Branch needed. zinc oxide 2020-0 Yes [id number] Apply to Univers 3.8 % Oint 8-06 [place] ity of 00:00: [place] [address] Medical Branch zinc oxide 2020-0 Yes [id number] Apply to Univers 3.8 % Oint 8-06 [place] ity of 00:00: [place] [address] Medical Branch zinc oxide 2020-0 Yes [id number] Apply to Univers 3.8 % Oint 8-06 [place] ity of 00:00: [place] [address] Medical Branch zinc oxide 2020-0 Yes [id number] Apply to Univers 3.8 % Oint 8-06 [place] ity of 00:00: [place] [address] Medical Branch zinc oxide 2021-0 2022- No [id number] Apply to Univers 3.8 % Oint 8-06 07-20 [place] ity o f 00:00: 00:00 [facility] 00 :00 Medical Branch Miscellaneo 2020-0 Yes [id number] [facility] 08-12 : Use as ity o f Supply Misc 00:00: directed; [place] ICD-10 Medical Z86.73, Branch I69.90, G81.94 Miscellaneo 2020-0 Yes [id number] [facility] 08-12 : Use as ity o f Supply Misc 00:00: directed; [place] ICD-10 Medical Z86.73, Branch I69.90, G81.94 Miscellaneo 0 Yes [id number] [facility] 08-12 : Use as ity o f Supply Misc 00:00: directed; [place] ICD-10 Medical Z86.73, Branch I69.90, G81.94 Miscellaneo Yes [id number] [facility] Use as ity o f Supply Misc 00:00: directed; [place] ICD-10 Medical Z86.73, Branch I69.90, G81.94 Miscellaneo Yes [id number] [facility] Use as ity o f Supply Misc 00:00: directed; [place] ICD-10 Medical Z86.73, Branch I69.90, G81.94 Miscellaneo Yes [id number] [facility] 08-12 : Use as ity o f Supply Misc 00:00: directed; [place] ICD-10 Medical Z86.73, Branch I69.90, G81.94 Miscellaneo Yes [id number] [facility] 08-12 : Use as ity o f Supply Misc 00:00: directed; [place] ICD-10 Medical Z86.73, Branch I69.90, G81.94 Miscellaneo Yes [id number] [facility] 08-12 : Use as ity o f Supply Misc 00:00: directed; [place] ICD-10 Medical Z86.73, Branch I69.90, G81.94 Miscellaneo 0 Yes [id number] [facility] : Use as ity o f Supply Misc 00:00: directed; [place] ICD-10 Medical Z86.73, Branch I69.90, G81.94 Miscellaneo 0 Yes [id number] [facility] 08-12 : Use as ity o f Supply Misc 00:00: directed; [place] ICD-10 Medical Z86.73, Branch I69.90, G81.94 Miscellaneo Yes [id number] [facility] : Use as ity o f Supply Misc 00:00: directed; [place] ICD-10 Medical Z86.73, Branch I69.90, G81.94 Miscellaneo Yes [id number] [facility] 08-12 : Use as ity o f Supply Misc 00:00: directed; [place] ICD-10 Medical Z86.73, Branch I69.90, G81.94 Miscellaneo Yes [id number] [facility] 08-12 : Use as ity o f Supply Misc 00:00: directed; [place] ICD-10 Medical Z86.73, Branch I69.90, G81.94 Miscellaneo Yes [id number] [facility] 08-12 : Use as ity o f Supply Misc 00:00: directed; [place] ICD-10 Medical Z86.73, Branch I69.90, G81.94 Miscellaneo Yes [id number] [facility] 08-12 : Use as ity o f Supply Misc 00:00: directed; [place] ICD-10 Medical Z86.73, Branch I69.90, G81.94 Miscellaneo Yes [id number] [facility] 08-12 : Use as ity o f Supply Misc 00:00: directed; [place] ICD-10 Medical Z86.73, Branch I69.90, G81.94 Miscellaneo Yes [id number] [facility] 08-12 : Use as ity o f Supply Misc 00:00: directed; [place] ICD-10 Medical Z86.73, Branch I69.90, G81.94 Miscellaneo Yes [id number] [facility] 08-12 : Use as ity o f Supply Misc 00:00: directed; [place] ICD-10 Medical Z86.73, Branch I69.90, G81.94 Miscellaneo Yes [id number] [facility] 08-12 : Use as ity o f Supply Misc 00:00: directed; [place] ICD-10 Medical Z86.73, Branch I69.90, G81.94 Miscellaneo Yes [id number] [facility] Misc 00:00: directed; [place] ICD-10 Medical Z86.73, Branch I69.90, G81.94 Miscellaneo Yes [id number] [facility] Use as ity o f Supply Misc 00:00: directed; [place] ICD-10 Medical Z86.73, Branch I69.90, G81.94 Miscellaneo Yes [id number] [facility] 08-12 : Use as ity o f Supply Misc 00:00: directed; [place] ICD-10 Medical Z86.73, Branch I69.90, G81.94 Miscellaneo Yes [id number] [facility] 08-12 : Use as ity o f Supply Misc 00:00: directed; [place] ICD-10 Medical Z86.73, Branch I69.90, G81.94 Miscellaneo Yes [id number] [facility] 08-12 : Use as ity o f Supply Misc 00:00: directed; [place] ICD-10 Medical Z86.73, Branch I69.90, G81.94 Miscellaneo Yes [id number] [facility] 08-12 : Use as ity o f Supply Misc 00:00: directed; [place] ICD-10 Medical Z86.73, Branch I69.90, G81.94 Miscellaneo Yes [id number] [facility] : Use as ity o f Supply Misc 00:00: directed; [place] ICD-10 Medical Z86.73, Branch I69.90, G81.94 Miscellaneo Yes [id number] [facility] 08-12 : Use as ity o f Supply Misc 00:00: directed; [place] ICD-10 Medical Z86.73, Branch I69.90, G81.94 Miscellaneo 0 Yes [id number] [facility] 08-12 : Use as ity o f Supply Misc 00:00: directed; [place] ICD-10 Medical Z86.73, Branch I69.90, G81.94 Miscellaneo 0 Yes [id number] [facility] 08-12 : Use as ity o f Supply Misc 00:00: directed; [place] ICD-10 Medical Z86.73, Branch I69.90, G81.94 Miscellaneo Yes [id number] [facility] 08-12 : Use as ity o f Supply Misc 00:00: directed; [place] ICD-10 Medical Z86.73, Branch I69.90, G81.94 Miscellaneo 0 Yes [id number] [facility] 08-12 : Use as ity o f Supply Misc 00:00: directed; [place] ICD-10 Medical Z86.73, Branch I69.90, G81.94 Miscellaneo Yes [id number] [facility] 08-12 : Use as ity o f Supply Misc 00:00: directed; [place] ICD-10 Medical Z86.73, Branch I69.90, G81.94 Miscellaneo 0 Yes [id number] [facility] 08-12 : Use as ity o f Supply Misc 00:00: directed; [place] ICD-10 Medical Z86.73, Branch I69.90, G81.94 Miscellaneo 0 Yes [id number] [facility] 08-12 : Use as ity o f Supply Misc 00:00: directed; [place] ICD-10 Medical Z86.73, Branch I69.90, G81.94 Miscellaneo 0 Yes [id number] [facility] 08-12 : Use as ity o f Supply Misc 00:00: directed; [place] ICD-10 Medical Z86.73, Branch I69.90, G81.94 Miscellaneo 0 Yes [id number] [facility] 08-12 : Use as ity o f Supply Misc 00:00: directed; [place] ICD-10 Medical Z86.73, Branch I69.90, G81.94 Miscellaneo 0 Yes [id number] [facility] 08-12 : Use as ity o f Supply Misc 00:00: directed; [place] ICD-10 Medical Z86.73, Branch I69.90, G81.94 Miscellaneo 0 Yes [id number] [facility] 08-12 : Use as ity o f Supply Misc 00:00: directed; [place] ICD-10 Medical Z86.73, Branch I69.90, G81.94 Miscellaneo 0 Yes [id number] [facility] 08-12 : Use as ity o f Supply Misc 00:00: directed; [place] ICD-10 Medical Z86.73, Branch I69.90, G81.94 Miscellaneo 0 Yes [id number] [facility] 08-12 : Use as ity o f Supply Misc 00:00: directed; [place] ICD-10 Medical Z86.73, Branch I69.90, G81.94 Miscellaneo 0 Yes [id number] [facility] 08-12 : Use as ity o f Supply Misc 00:00: directed; [place] ICD-10 Medical Z86.73, Branch I69.90, G81.94 Miscellaneo 0 Yes [id number] [facility] 08-12 : Use as ity o f Supply Misc 00:00: directed; [place] ICD-10 Medical Z86.73, Branch I69.90, G81.94 Miscellaneo 0 Yes [id number] [facility] 08-12 : Use as ity o f Supply Misc 00:00: directed; [place] ICD-10 Medical Z86.73, Branch I69.90, G81.94 Miscellaneo 0 Yes [id number] [facility] 08-12 : Use as ity o f Supply Misc 00:00: directed; [place] ICD-10 Medical Z86.73, Branch I69.90, G81.94 Miscellaneo Yes [id number] [facility] 08-12 : Use as ity o f Supply Misc 00:00: directed; [place] ICD-10 Medical Z86.73, Branch I69.90, G81.94 Miscellaneo Yes [id number] [facility] 08-12 : Use as ity o f Supply Misc 00:00: directed; [place] ICD-10 Medical Z86.73, Branch I69.90, G81.94 Miscellaneo Yes [id number] [facility] 08-12 : Use as ity o f Supply Misc 00:00: directed; [place] ICD-10 Medical Z86.73, Branch I69.90, G81.94 Miscellaneo Yes [id number] [facility] 08-12 : Use as ity o f Supply Misc 00:00: directed; [place] ICD-10 Medical Z86.73, Branch I69.90, G81.94 Miscellaneo Yes [id number] [facility] 08-12 : Use as ity o f Supply Misc 00:00: directed; [place] ICD-10 Medical Z86.73, Branch I69.90, G81.94 Miscellaneo Yes [id number] [facility] 08-12 : Use as ity o f Supply Misc 00:00: directed; [place] ICD-10 Medical Z86.73, Branch I69.90, G81.94 Miscellaneo Yes [id number] [facility] 08-12 : Use as ity o f Supply Misc 00:00: directed; [place] ICD-10 Medical Z86.73, Branch I69.90, G81.94 Miscellaneo 0 Yes [id number] [facility] 08-12 : Use as ity o f Supply Misc 00:00: directed; [place] ICD-10 Medical Z86.73, Branch I69.90, G81.94 Miscellaneo 0 Yes [id number] [facility] 08-12 : Use as ity o f Supply Misc 00:00: directed; [place] ICD-10 Medical Z86.73, Branch I69.90, G81.94 Miscellaneo Yes [id number] [facility] 08-12 : Use as ity o f Supply Misc 00:00: directed; [place] ICD-10 Medical Z86.73, Branch I69.90, G81.94 Miscellaneo 0 Yes [id number] [facility] 08-12 : Use as ity o f Supply Misc 00:00: directed; [place] ICD-10 Medical Z86.73, Branch I69.90, G81.94 Miscellaneo 0 Yes [id number] [facility] 08-12 : Use as ity o f Supply Misc 00:00: directed; [place] ICD-10 Medical Z86.73, Branch I69.90, G81.94 Miscellaneo 0 Yes [id number] [facility] 08-12 : Use as ity o f Supply Misc 00:00: directed; [place] ICD-10 Medical Z86.73, Branch I69.90, G81.94 Miscellaneo 0 Yes [id number] [facility] 08-12 : Use as ity o f Supply Misc 00:00: directed; [place] ICD-10 Medical Z86.73, Branch I69.90, G81.94 Miscellaneo 0 Yes [id number] [facility] 08-12 : Use as ity o f Supply Misc 00:00: directed; [place] ICD-10 Medical Z86.73, Branch I69.90, G81.94 Miscellaneo 2020-0 Yes [id number] [facility] 08-12 : Use as ity o f Supply Misc 00:00: directed; [place] ICD-10 Medical Z86.73, Branch I69.90, G81.94 Miscellaneo 0 Yes [id number] [facility] 08-12 : Use as ity o f Supply Misc 00:00: directed; [place] ICD-10 Medical Z86.73, Branch I69.90, G81.94 Miscellaneo 0 Yes [id number] [facility] 08-12 : Use as ity o f Supply Misc 00:00: directed; [place] ICD-10 Medical Z86.73, Branch I69.90, G81.94 Miscellaneo 0 Yes [id number] [facility] 08-12 : Use as ity o f Supply Misc 00:00: directed; [place] ICD-10 Medical Z86.73, Branch I69.90, G81.94 Miscellaneo 0 Yes [id number] [facility] 08-12 : Use as ity o f Supply Misc 00:00: directed; [place] ICD-10 Medical Z86.73, Branch I69.90, G81.94 Miscellaneo 0 Yes [id number] [facility] 08-12 : Use as ity o f Supply Misc 00:00: directed; [place] ICD-10 Medical Z86.73, Branch I69.90, G81.94 Miscellaneo 0 Yes [id number] [facility] 08-12 : Use as ity o f Supply Misc 00:00: directed; [place] ICD-10 Medical Z86.73, Branch I69.90, G81.94 Miscellaneo 0 Yes [id number] [facility] 08-12 : Use as ity o f Supply Misc 00:00: directed; [place] ICD-10 Medical Z86.73, Branch I69.90, G81.94 Miscellaneo 2020-0 Yes [id number] [facility] 08-12 : Use as ity o f Supply Misc 00:00: directed; [place] ICD-10 Medical Z86.73, Branch I69.90, G81.94 Miscellaneo 0 Yes [id number] [facility] 08-12 : Use as ity o f Supply Misc 00:00: directed; [place] ICD-10 Medical Z86.73, Branch I69.90, G81.94 Miscellaneo 0 Yes [id number] [facility] 08-12 : Use as ity o f Supply Misc 00:00: directed; [place] ICD-10 Medical Z86.73, Branch I69.90, G81.94 Miscellaneo 0 Yes [id number] [facility] 08-12 : Use as ity o f Supply Misc 00:00: directed; [place] ICD-10 Medical Z86.73, Branch I69.90, G81.94 Miscellaneo 0 Yes [id number] [facility] 08-12 : Use as ity o f Supply Misc 00:00: directed; [place] ICD-10 Medical Z86.73, Branch I69.90, G81.94 Miscellaneo 0 Yes [id number] [facility] 08-12 : Use as ity o f Supply Misc 00:00: directed; [place] ICD-10 Medical Z86.73, Branch I69.90, G81.94 Miscellaneo 0 Yes [id number] [facility] 08-12 : Use as ity o f Supply Misc 00:00: directed; [place] ICD-10 Medical Z86.73, Branch I69.90, G81.94 Miscellaneo 0 Yes [id number] [facility] 08-12 : Use as ity o f Supply Misc 00:00: directed; [place] ICD-10 Medical Z86.73, Branch I69.90, G81.94 Miscellaneo 0 Yes [id number] [facility] 08-12 : Use as ity o f Supply Misc 00:00: directed; [place] ICD-10 Medical Z86.73, Branch I69.90, G81.94 Miscellaneo 0 Yes [id number] [facility] 08-12 : Use as ity o f Supply Misc 00:00: directed; [place] ICD-10 Medical Z86.73, Branch I69.90, G81.94 Miscellaneo Yes [id number] [facility] 08-12 : Use as ity o f Supply Misc 00:00: directed; [place] ICD-10 Medical Z86.73, Branch I69.90, G81.94 Miscellaneo Yes [id number] [facility] 08-12 : Use as ity o f Supply Misc 00:00: directed; [place] ICD-10 Medical Z86.73, Branch I69.90, G81.94 Miscellaneo Yes [id number] [facility] 08-12 : Use as ity o f Supply Misc 00:00: directed; [place] ICD-10 Medical Z86.73, Branch I69.90, G81.94 Miscellaneo 0 Yes [id number] [facility] 08-12 : Use as ity o f Supply Misc 00:00: directed; [place] ICD-10 Medical Z86.73, Branch I69.90, G81.94 Miscellaneo 0 Yes [id number] [facility] 08-12 : Use as ity o f Supply Misc 00:00: directed; [place] ICD-10 Medical Z86.73, Branch I69.90, G81.94 VENTOLIN 2019- Yes INHALE 2 Unive rs HFA 90 2-01 PUFFS BY ity of mcg/actuati 00:00: MOUTH [place] on inhaler 00 EVERY 6 Medica l HOURS Branch NEEDED FOR SHORTNESS OF BREATH VENTOLIN 2019-02 Yes INHALE 2 Unive rs HFA 90 2-01 PUFFS BY ity of mcg/actuati 00:00: MOUTH [place] on inhaler 00 EVERY 6 Medica l HOURS Branch NEEDED FOR SHORTNESS OF BREATH VENTOLIN 2019-02 Yes INHALE 2 Unive rs HFA 90 2-01 PUFFS BY ity of mcg/actuati 00:00: MOUTH [place] on inhaler 00 EVERY 6 Medica l HOURS Branch NEEDED FOR SHORTNESS OF BREATH VENTOLIN 2019-02 Yes INHALE 2 Unive rs HFA 90 2-01 PUFFS BY ity of mcg/actuati 00:00: MOUTH [place] on inhaler 00 EVERY 6 Medica l HOURS Branch NEEDED FOR SHORTNESS OF BREATH VENTOLIN 2019-02 No INHALE 2 Univ ers HFA 90 2-01 07-20 PUFFS BY ity of mcg/actuati 00:00: 00:00 MOUTH [place] inhaler 00 :00 EVERY 6 Medica l HOURS Branch NEEDED FOR SHORTNESS OF BREATH ipratropium 2019-02 Yes Univer s -albuteroL 1-16 ity of 0.5 mg-3 00:00: [place] mg(2.5 mg 00 Medical base)/3 mL Branch nebulizer solution ipratropium 2019-02 Yes Univer s -albuteroL 1-16 ity of 0.5 mg-3 00:00: [place] mg(2.5 mg 00 Medical base)/3 mL Branch nebulizer solution ipratropium 2019- Yes Univer s -albuteroL 1-16 ity of 0.5 mg-3 00:00: [place] mg(2.5 mg 00 Medical base)/3 mL Branch nebulizer solution ipratropium 2019- Yes Univer s -albuteroL 1-16 ity of 0.5 mg-3 00:00: [place] mg(2.5 mg 00 Medical base)/3 mL Branch nebulizer solution ipratropium 2020- Yes Univer s -albuteroL 1-16 ity of 0.5 mg-3 00:00: [place] mg(2.5 mg 00 Medical base)/3 mL Branch nebulizer solution ipratropium 2020- Yes Univer s -albuteroL 1-16 ity of 0.5 mg-3 00:00: [place] mg(2.5 mg 00 Medical base)/3 mL Branch nebulizer solution ipratropium 2020- Yes Univer s -albuteroL 1-16 ity of 0.5 mg-3 00:00: [place] mg(2.5 mg 00 Medical base)/3 mL Branch nebulizer solution ipratropium 2019- Yes Univer s -albuteroL 1-16 ity of 0.5 mg-3 00:00: [place] mg(2.5 mg 00 Medical base)/3 mL Branch nebulizer solution ipratropium 2019- Yes Univer s -albuteroL 1-16 ity of 0.5 mg-3 00:00: [place] mg(2.5 mg 00 Medical base)/3 mL Branch nebulizer solution ipratropium 2019- Yes Univer s -albuteroL 1-16 ity of 0.5 mg-3 00:00: [place] mg(2.5 mg 00 Medical base)/3 mL Branch nebulizer solution ipratropium 2019-02 Yes Univer s -albuteroL 1-16 ity of 0.5 mg-3 00:00: [place] mg(2.5 mg 00 Medical base)/3 mL Branch nebulizer solution ipratropium 2019-02 Yes Univer s -albuteroL 1-16 ity of 0.5 mg-3 00:00: [place] mg(2.5 mg 00 Medical base)/3 mL Branch nebulizer solution ipratropium 2019- Yes Univer s -albuteroL 1-16 ity of 0.5 mg-3 00:00: [place] mg(2.5 mg 00 Medical base)/3 mL Branch nebulizer solution ipratropium 2019- Yes Univer s -albuteroL 1-16 ity of 0.5 mg-3 00:00: [place] mg(2.5 mg 00 Medical base)/3 mL Branch nebulizer solution ipratropium 2019- Yes Univer s -albuteroL 1-16 ity of 0.5 mg-3 00:00: [place] mg(2.5 mg 00 Medical base)/3 mL Branch nebulizer solution ipratropium 2019- Yes Univer s -albuteroL 1-16 ity of 0.5 mg-3 00:00: [place] mg(2.5 mg 00 Medical base)/3 mL Branch nebulizer solution ipratropium 2020- Yes Univer s -albuteroL 1-16 ity of 0.5 mg-3 00:00: [place] mg(2.5 mg 00 Medical base)/3 mL Branch nebulizer solution ipratropium 2020- Yes Univer s -albuteroL 1-16 ity of 0.5 mg-3 00:00: [place] mg(2.5 mg 00 Medical base)/3 mL Branch nebulizer solution ipratropium 2019- Yes Univer s -albuteroL 1-16 ity of 0.5 mg-3 00:00: [place] mg(2.5 mg 00 Medical base)/3 mL Branch nebulizer solution ipratropium 2019- Yes Univer s -albuteroL 1-16 ity of 0.5 mg-3 00:00: [place] mg(2.5 mg 00 Medical base)/3 mL Branch nebulizer solution ipratropium 2019- Yes Univer s -albuteroL 1-16 ity of 0.5 mg-3 00:00: [place] mg(2.5 mg 00 Medical base)/3 mL Branch nebulizer solution ipratropium 2019- Yes Univer s -albuteroL 1-16 ity of 0.5 mg-3 00:00: [place] mg(2.5 mg 00 Medical base)/3 mL Branch nebulizer solution ipratropium 2019- Yes Univer s -albuteroL 1-16 ity of 0.5 mg-3 00:00: [place] mg(2.5 mg 00 Medical base)/3 mL Branch nebulizer solution ipratropium 2019- Yes Univer s -albuteroL 1-16 ity of 0.5 mg-3 00:00: [place] mg(2.5 mg 00 Medical base)/3 mL Branch nebulizer solution ipratropium 2020- Yes Univer s -albuteroL 1-16 ity of 0.5 mg-3 00:00: [place] mg(2.5 mg 00 Medical base)/3 mL Branch nebulizer solution ipratropium 2020- Yes Univer s -albuteroL 1-16 ity of 0.5 mg-3 00:00: [place] mg(2.5 mg 00 Medical base)/3 mL Branch nebulizer solution ipratropium 2020- Yes Univer s -albuteroL 1-16 ity of 0.5 mg-3 00:00: [place] mg(2.5 mg 00 Medical base)/3 mL Branch nebulizer solution ipratropium 2020- Yes Univer s -albuteroL 1-16 ity of 0.5 mg-3 00:00: [place] mg(2.5 mg 00 Medical base)/3 mL Branch nebulizer solution ipratropium 2019- Yes Univer s -albuteroL 1-16 ity of 0.5 mg-3 00:00: [place] mg(2.5 mg 00 Medical base)/3 mL Branch nebulizer solution ipratropium 2019- Yes Univer s -albuteroL 1-16 ity of 0.5 mg-3 00:00: [place] mg(2.5 mg 00 Medical base)/3 mL Branch nebulizer solution ipratropium 2019-02 Yes Univer s -albuteroL 1-16 ity of 0.5 mg-3 00:00: [place] mg(2.5 mg 00 Medical base)/3 mL Branch nebulizer solution ipratropium 2019-02 Yes Univer s -albuteroL 1-16 ity of 0.5 mg-3 00:00: [place] mg(2.5 mg 00 Medical base)/3 mL Branch nebulizer solution ipratropium 2019- Yes Univer s -albuteroL 1-16 ity of 0.5 mg-3 00:00: [place] mg(2.5 mg 00 Medical base)/3 mL Branch nebulizer solution ipratropium 2019- Yes Univer s -albuteroL 1-16 ity of 0.5 mg-3 00:00: [place] mg(2.5 mg 00 Medical base)/3 mL Branch nebulizer solution ipratropium 2019- Yes Univer s -albuteroL 1-16 ity of 0.5 mg-3 00:00: [place] mg(2.5 mg 00 Medical base)/3 mL Branch nebulizer solution ipratropium 2019- Yes Univer s -albuteroL 1-16 ity of 0.5 mg-3 00:00: [place] mg(2.5 mg 00 Medical base)/3 mL Branch nebulizer solution ipratropium 2019- Yes Univer s -albuteroL 1-16 ity of 0.5 mg-3 00:00: [place] mg(2.5 mg 00 Medical base)/3 mL Branch nebulizer solution ipratropium 2019- Yes Univer s -albuteroL 1-16 ity of 0.5 mg-3 00:00: [place] mg(2.5 mg 00 Medical base)/3 mL Branch nebulizer solution ipratropium 2019- Yes Univer s -albuteroL 1-16 ity of 0.5 mg-3 00:00: [place] mg(2.5 mg 00 Medical base)/3 mL Branch nebulizer solution ipratropium 2019-02 Yes Univer s -albuteroL 1-16 ity of 0.5 mg-3 00:00: [place] mg(2.5 mg 00 Medical base)/3 mL Branch nebulizer solution ipratropium 2019-02 Yes Univer s -albuteroL 1-16 ity of 0.5 mg-3 00:00: [place] mg(2.5 mg 00 Medical base)/3 mL Branch nebulizer solution ipratropium 2019-02 Yes Univer s -albuteroL 1-16 ity of 0.5 mg-3 00:00: [place] mg(2.5 mg 00 Medical base)/3 mL Branch nebulizer solution ipratropium 2019-02 Yes Univer s -albuteroL 1-16 ity of 0.5 mg-3 00:00: [place] mg(2.5 mg 00 Medical base)/3 mL Branch nebulizer solution ipratropium 2019- Yes Univer s -albuteroL 1-16 ity of 0.5 mg-3 00:00: [place] mg(2.5 mg 00 Medical base)/3 mL Branch nebulizer solution ipratropium 2019- Yes Univer s -albuteroL 1-16 ity of 0.5 mg-3 00:00: [place] mg(2.5 mg 00 Medical base)/3 mL Branch nebulizer solution ipratropium 2019-02 Yes Univer s -albuteroL 1-16 ity of 0.5 mg-3 00:00: [place] mg(2.5 mg 00 Medical base)/3 mL Branch nebulizer solution ipratropium 2019-02 Yes Univer s -albuteroL 1-16 ity of 0.5 mg-3 00:00: [place] mg(2.5 mg 00 Medical base)/3 mL Branch nebulizer solution ipratropium 2019- Yes Univer s -albuteroL 1-16 ity of 0.5 mg-3 00:00: [place] mg(2.5 mg 00 Medical base)/3 mL Branch nebulizer solution ipratropium 2019- Yes Univer s -albuteroL 1-16 ity of 0.5 mg-3 00:00: [place] mg(2.5 mg 00 Medical base)/3 mL Branch nebulizer solution ipratropium 2019- Yes Univer s -albuteroL 1-16 ity of 0.5 mg-3 00:00: [place] mg(2.5 mg 00 Medical base)/3 mL Branch nebulizer solution ipratropium 2019-02 Yes Univer s -albuteroL 1-16 ity of 0.5 mg-3 00:00: [place] mg(2.5 mg 00 Medical base)/3 mL Branch nebulizer solution ipratropium 2019-02 Yes Univer s -albuteroL 1-16 ity of 0.5 mg-3 00:00: [place] mg(2.5 mg 00 Medical base)/3 mL Branch nebulizer solution ipratropium 2019-02 Yes Univer s -albuteroL 1-16 ity of 0.5 mg-3 00:00: [place] mg(2.5 mg 00 Medical base)/3 mL Branch nebulizer solution ipratropium 2019- Yes Univer s -albuteroL 1-16 ity of 0.5 mg-3 00:00: [place] mg(2.5 mg 00 Medical base)/3 mL Branch nebulizer solution ipratropium 2019- Yes Univer s -albuteroL 1-16 ity of 0.5 mg-3 00:00: [place] mg(2.5 mg 00 Medical base)/3 mL Branch nebulizer solution ipratropium 2020- Yes Univer s -albuteroL 1-16 ity of 0.5 mg-3 00:00: [place] mg(2.5 mg 00 Medical base)/3 mL Branch nebulizer solution ipratropium 2019- Yes Univer s -albuteroL 1-16 ity of 0.5 mg-3 00:00: [place] mg(2.5 mg 00 Medical base)/3 mL Branch nebulizer solution ipratropium 2020- Yes Univer s -albuteroL 1-16 ity of 0.5 mg-3 00:00: [place] mg(2.5 mg 00 Medical base)/3 mL Branch nebulizer solution ipratropium 2019- Yes Univer s -albuteroL 1-16 ity of 0.5 mg-3 00:00: [place] mg(2.5 mg 00 Medical base)/3 mL Branch nebulizer solution ipratropium 2019- Yes Univer s -albuteroL 1-16 ity of 0.5 mg-3 00:00: [place] mg(2.5 mg 00 Medical base)/3 mL Branch nebulizer solution ipratropium 2019- Yes Univer s -albuteroL 1-16 ity of 0.5 mg-3 00:00: [place] mg(2.5 mg 00 Medical base)/3 mL Branch nebulizer solution ipratropium 2019- Yes Univer s -albuteroL 1-16 ity of 0.5 mg-3 00:00: [place] mg(2.5 mg 00 Medical base)/3 mL Branch nebulizer solution ipratropium 2019-02 Yes Univer s -albuteroL 1-16 ity of 0.5 mg-3 00:00: [place] mg(2.5 mg 00 Medical base)/3 mL [facility] nebulizer solution ipratropium 2019- Yes Un[facility] s -albuteroL 1-16 ity of 0.5 mg-3 00:00: [place] mg(2.5 mg 00 Medical base)/3 mL [facility] nebulizer solution ipratropium 2019- Yes Un[facility] s -albuteroL 1-16 ity of 0.5 mg-3 00:00: [place] mg(2.5 mg 00 Medical base)/3 mL [facility] nebulizer solution ipratropium 2020- Yes Un[facility] s -albuteroL 1-16 ity of 0.5 mg-3 00:00: [place] mg(2.5 mg 00 Medical base)/3 mL [facility] nebulizer solution ipratropium 2019- Yes Univer s -albuteroL 1-16 ity of 0.5 mg-3 00:00: [place] mg(2.5 mg 00 Medical base)/3 mL [facility] nebulizer solution ipratropium 2020- Yes Un[facility] s -albuteroL 1-16 ity of 0.5 mg-3 00:00: [place] mg(2.5 mg 00 Medical base)/3 mL [facility] nebulizer solution ipratropium 2020- Yes Univer s -albuteroL 1-16 ity of 0.5 mg-3 00:00: [place] mg(2.5 mg 00 Medical base)/3 mL [facility] nebulizer solution ipratropium 2019- Yes Univer s -albuteroL 1-16 ity of 0.5 mg-3 00:00: [place] mg(2.5 mg 00 Medical base)/3 mL [facility] nebulizer solution ipratropium 2019- Yes Un[facility] s -albuteroL 1-16 ity of 0.5 mg-3 00:00: [place] mg(2.5 mg 00 Medical base)/3 mL [facility] nebulizer solution ipratropium 2019- Yes Univer s -albuteroL 1-16 ity of 0.5 mg-3 00:00: [place] mg(2.5 mg 00 Medical base)/3 mL [facility] nebulizer solution ipratropium 2019- Yes Un[facility] s -albuteroL 1-16 ity of 0.5 mg-3 00:00: [place] mg(2.5 mg 00 Medical base)/3 mL [facility] nebulizer solution ipratropium 2019- Yes Univer s -albuteroL 1-16 ity of 0.5 mg-3 00:00: [place] mg(2.[facility] mg [facility]3 mL Branch nebulizer solution ipratropium 2019- Yes Univer s -albuteroL 1-16 ity of 0.5 mg-3 00:00: [place] mg(2.5 mg 00 [facility])/3 mL Branch nebulizer solution ipratropium 2020- Yes Univer s -albuteroL 1-16 ity of 0.5 mg-3 00:00: [place] mg(2.5 mg 00 [facility])/3 mL Branch nebulizer solution ipratropium 2020- Yes Univer s -albuteroL 1-16 ity of 0.5 mg-3 00:00: [place] mg(2.5 mg 00 [facility])/3 mL Branch nebulizer solution ipratropium 2019-02- Unive rs -albuteroL 16 06-03 ity of 0.5 mg-3 00:00: 00:00 [place] mg(2.5 mg 00 :00 [facility])/3 mL Branch nebulizer solution Immunizations Ordered Filled Immunization Date Status Comments [facility] e Immunization Name Name SARS-COV-2 COVID-19 2020-11-01 Completed Unive rsity of PFIZER VACCINE 00:00:00 [facility] SARS-COV-2 COVID-19 2020-11-01 Completed Unive rsity of PFIZER VACCINE 00:00:00 [facility] SARS-COV-2 COVID-19 2020-11-01 Completed Unive rsity of PFIZER VACCINE 00:00:00 [facility] SARS-COV-2 COVID-19 2020-11-01 Completed [facility]ive rsity of PFIZER VACCINE 00:00:00 [facility] SARS-COV-2 COVID-19 2020-11-01 Completed [facility]ive rsity of PFIZER VACCINE 00:00:00 [facility] SARS-COV-2 COVID-19 2020-11-01 Completed Unive rsity of PFIZER VACCINE 00:00:00 [facility] SARS-COV-2 COVID-19 2020-11-01 Completed Unive rsity of PFIZER VACCINE 00:00:00 [facility] SARS-COV-2 COVID-19 2020-11-01 Completed Unive rsity of PFIZER VACCINE 00:00:00 [facility] SARS-COV-2 COVID-19 2020-11-01 Completed Unive rsity of PFIZER VACCINE 00:00:00 [facility] SARS-COV-2 COVID-19 2020-11-01 Completed Un[facility] of PFIZER VACCINE 00:00:00 [facility] SARS-COV-2 COVID-19 2020-11-01 Completed Unive rsity of PFIZER VACCINE 00:00:00 [facility] SARS-COV-2 COVID-19 2020-11-01 Completed Unive rsity of PFIZER VACCINE 00:00:00 [facility] SARS-COV-2 COVID-19 2020-11-01 Completed Unive rsity of PFIZER VACCINE 00:00:00 [facility] SARS-COV-2 COVID-19 2020-11-01 Completed Unive rsity of PFIZER VACCINE 00:00:00 [facility] SARS-COV-2 COVID-19 2020-11-01 Completed Unive rsity of PFIZER VACCINE 00:00:00 [facility] SARS-COV-2 COVID-19 2020-11-01 Completed Unive rsity of PFIZER VACCINE 00:00:00 [facility] SARS-COV-2 COVID-19 2020-11-01 Completed Unive rsity of PFIZER VACCINE 00:00:00 [facility] SARS-COV-2 COVID-19 2020-11-01 Completed Unive rsity of PFIZER VACCINE 00:00:00 [facility] SARS-COV-2 COVID-19 2020-11-01 Completed Unive rsity of PFIZER VACCINE 00:00:00 [facility] SARS-COV-2 COVID-19 2020-11-01 Completed Unive rsity of PFIZER VACCINE 00:00:00 [facility] SARS-COV-2 COVID-19 2020-11-01 Completed Unive rsity of PFIZER VACCINE 00:00:00 [facility] SARS-COV-2 COVID-19 2020-11-01 Completed Unive rsity of PFIZER VACCINE 00:00:00 [facility] SARS-COV-2 COVID-19 2020-11-01 Completed Unive rsity of PFIZER VACCINE 00:00:00 [facility] SARS-COV-2 COVID-19 2020-11-01 Completed [facility]ive rsity of PFIZER VACCINE 00:00:00 [facility] SARS-COV-2 COVID-19 2020-11-01 Completed Unive rsity of PFIZER VACCINE 00:00:00 [facility] SARS-COV-2 COVID-19 2020-11-01 Completed Unive rsity of PFIZER VACCINE 00:00:00 [facility] SARS-COV-2 COVID-19 2020-11-01 Completed Unive rsity of PFIZER VACCINE 00:00:00 [facility] SARS-COV-2 COVID-19 2020-11-01 Completed Unive rsity of PFIZER VACCINE 00:00:00 [facility] SARS-COV-2 COVID-19 2020-11-01 Completed Unive rsity of PFIZER VACCINE 00:00:00 [facility] SARS-COV-2 COVID-19 2020-11-01 Completed Unive rsity of PFIZER VACCINE 00:00:00 [facility] SARS-COV-2 COVID-19 2020-11-01 Completed Unive rsity of PFIZER VACCINE 00:00:00 [facility] SARS-COV-2 COVID-19 2020-11-01 Completed Unive rsity of PFIZER VACCINE 00:00:00 [facility] SARS-COV-2 COVID-19 2020-11-01 Completed Unive rsity of PFIZER VACCINE 00:00:00 [facility] SARS-COV-2 COVID-19 2020-11-01 Completed Unive rsity of PFIZER VACCINE 00:00:00 [facility] SARS-COV-2 COVID-19 2020-11-01 Completed Unive rsity of PFIZER VACCINE 00:00:00 [facility] SARS-COV-2 COVID-19 2020-11-01 Completed Unive rsity of PFIZER VACCINE 00:00:00 [facility] SARS-COV-2 COVID-19 2020-11-01 Completed Unive rsity of PFIZER VACCINE 00:00:00 [facility] SARS-COV-2 COVID-19 2020-11-01 Completed Unive rsity of PFIZER VACCINE 00:00:00 [facility] SARS-COV-2 COVID-19 2020-11-01 Completed Unive rsity of PFIZER VACCINE 00:00:00 [facility] SARS-COV-2 COVID-19 2020-11-01 Completed Unive rsity of PFIZER VACCINE 00:00:00 [facility] SARS-COV-2 COVID-19 2020-11-01 Completed Unive rsity of PFIZER VACCINE 00:00:00 [facility] SARS-COV-2 COVID-19 2020-11-01 Completed Unive rsity of PFIZER VACCINE 00:00:00 [facility] SARS-COV-2 COVID-19 2020-11-01 Completed Unive rsity of PFIZER VACCINE 00:00:00 [facility] SARS-COV-2 COVID-19 2020-11-01 Completed Unive rsity of PFIZER VACCINE 00:00:00 [facility] SARS-COV-2 COVID-19 2020-11-01 Completed Unive rsity of PFIZER VACCINE 00:00:00 [facility] SARS-COV-2 COVID-19 2020-11-01 Completed Unive rsity of PFIZER VACCINE 00:00:00 [facility] SARS-COV-2 COVID-19 2020-11-01 Completed Unive rsity of PFIZER VACCINE 00:00:00 [facility] SARS-COV-2 COVID-19 2020-11-01 Completed Unive rsity of PFIZER VACCINE 00:00:00 [facility] SARS-COV-2 COVID-19 2020-11-01 Completed Unive rsity of PFIZER VACCINE 00:00:00 [facility] SARS-COV-2 COVID-19 2020-11-01 Completed Unive rsity of PFIZER VACCINE 00:00:00 [facility] SARS-COV-2 COVID-19 2020-11-01 Completed Unive rsity of PFIZER VACCINE 00:00:00 [facility] SARS-COV-2 COVID-19 2020-11-01 Completed Unive rsity of PFIZER VACCINE 00:00:00 [facility] SARS-COV-2 COVID-19 2020-11-01 Completed Unive rsity of PFIZER VACCINE 00:00:00 [facility] SARS-COV-2 COVID-19 2020-11-01 Completed Unive rsity of PFIZER VACCINE 00:00:00 [facility] SARS-COV-2 COVID-19 2020-11-01 Completed Unive rsity of PFIZER VACCINE 00:00:00 [facility] SARS-COV-2 COVID-19 2020-11-01 Completed Unive rsity of PFIZER VACCINE 00:00:00 [facility] SARS-COV-2 COVID-19 2020-11-01 Completed Unive rsity of PFIZER VACCINE 00:00:00 [facility] SARS-COV-2 COVID-19 2020-11-01 Completed Unive rsity of PFIZER VACCINE 00:00:00 [facility] SARS-COV-2 COVID-19 2020-11-01 Completed Unive rsity of PFIZER VACCINE 00:00:00 [facility] SARS-COV-2 COVID-19 2020-11-01 Completed Unive rsity of PFIZER VACCINE 00:00:00 [facility] SARS-COV-2 COVID-19 2020-11-01 Completed Unive rsity of PFIZER VACCINE 00:00:00 [facility] SARS-COV-2 COVID-19 2020-11-01 Completed Unive rsity of PFIZER VACCINE 00:00:00 [facility] SARS-COV-2 COVID-19 2020-11-01 Completed Unive rsity of PFIZER VACCINE 00:00:00 [facility] SARS-COV-2 COVID-19 2020-11-01 Completed Unive rsity of PFIZER VACCINE 00:00:00 [facility] SARS-COV-2 COVID-19 2020-11-01 Completed Unive rsity of PFIZER VACCINE 00:00:00 [facility] SARS-COV-2 COVID-19 2020-11-01 Completed Unive rsity of PFIZER VACCINE 00:00:00 [facility] SARS-COV-2 COVID-19 2020-11-01 Completed Unive rsity of PFIZER VACCINE 00:00:00 [facility] SARS-COV-2 COVID-19 2020-11-01 Completed Unive rsity of PFIZER VACCINE 00:00:00 [facility] SARS-COV-2 COVID-19 2020-11-01 Completed Unive rsity of PFIZER VACCINE 00:00:00 [facility] SARS-COV-2 COVID-19 2020-11-01 Completed Unive rsity of PFIZER VACCINE 00:00:00 [facility] SARS-COV-2 COVID-19 2020-11-01 Completed Unive rsity of PFIZER VACCINE 00:00:00 [facility] SARS-COV-2 COVID-19 2020-11-01 Completed Unive rsity of PFIZER VACCINE 00:00:00 [facility] SARS-COV-2 COVID-19 2020-11-01 Completed Unive rsity of PFIZER VACCINE 00:00:00 [facility] SARS-COV-2 COVID-19 2020-11-01 Completed Unive [facility]ity of PFIZER VACCINE 00:00:00 [facility] SARS-COV-2 COVID-19 2020-11-01 Completed Unive rsity of PFIZER VACCINE 00:00:00 [facility] SARS-COV-2 COVID-19 2020-11-01 Completed Unive rsity of PFIZER VACCINE 00:00:00 [facility] SARS-COV-2 COVID-19 2020-11-01 Completed Unive [facility]ity of PFIZER VACCINE 00:00:00 [facility] SARS-COV-2 COVID-19 2020-11-01 Completed Unive rsity of PFIZER VACCINE 00:00:00 [facility] SARS-COV-2 COVID-19 2020-11-01 Completed Unive rsity of PFIZER VACCINE 00:00:00 [facility] SARS-COV-2 COVID-19 2020-11-01 Completed Unive rsity of PFIZER VACCINE 00:00:00 [facility] SARS-COV-2 COVID-19 2020-11-01 Completed Unive rsity of PFIZER VACCINE 00:00:00 [facility] SARS-COV-2 COVID-19 2020-11-01 Completed Unive rsity of PFIZER VACCINE 00:00:00 [facility] Influenza High Dose 2020-10-09 Completed Unive rsity of 00:00:00 [facility] Influenza High Dose 2020-10-09 Completed Unive rsity of 00:00:00 [place] [facility] Influenza High Dose 2020-10-09 Completed Unive rsity of 00:00:00 [place] [facility] Influenza High Dose 2020-10-09 Completed Unive rsity of 00:00:00 [place] [facility] Influenza High Dose 2020-10-09 Completed Unive rsity of 00:00:00 [facility] Influenza High Dose 2020-10-09 Completed Unive rsity of 00:00:00 [place] [facility] Influenza High Dose 2020-10-09 Completed Unive rsity of 00:00:00 [place] [facility] Influenza High Dose 2020-10-09 Completed Unive rsity of 00:00:00 [place] [facility] Influenza High Dose 2020-10-09 Completed Unive rsity of 00:00:00 [place] [facility] Influenza High Dose 2020-10-09 Completed Unive rsity of 00:00:00 [place] [facility] Influenza High Dose 2020-10-09 Completed Unive rsity of 00:00:00 [place] [facility] Influenza High Dose 2020-10-09 Completed Unive rsity of 00:00:00 [place] [facility] Influenza High Dose 2020-10-09 Completed Unive rsity of 00:00:00 [place] [facility] Influenza High Dose 2020-10-09 Completed Unive rsity of 00:00:00 [place] [facility] Influenza High Dose 2020-10-09 Completed Unive rsity of 00:00:00 [place] [facility] Influenza High Dose 2020-10-09 Completed Unive rsity of 00:00:00 [place] [facility] Influenza High Dose 2020-10-09 Completed Unive rsity of 00:00:00 [place] [facility] Influenza High Dose 2020-10-09 Completed Unive rsity of 00:00:00 [place] [facility] Influenza High Dose 2020-10-09 Completed Unive rsity of 00:00:00 [place] [facility] Influenza High Dose 2020-10-09 Completed Unive rsity of 00:00:00 [place] [facility] Influenza High Dose 2020-10-09 Completed Unive rsity of 00:00:00 [place] [facility] Influenza High Dose 2020-10-09 Completed Unive rsity of 00:00:00 [place] [facility] Influenza High Dose 2020-10-09 Completed Unive rsity of 00:00:00 [place] [facility] Influenza High Dose 2020-10-09 Completed Unive rsity of 00:00:00 [place] [facility] Influenza High Dose 2020-10-09 Completed Unive rsity of 00:00:00 [place] [facility] Influenza High Dose 2020-10-09 Completed Unive rsity of 00:00:00 [place] [facility] Influenza High Dose 2020-10-09 Completed Unive rsity of 00:00:00 [place] [facility] Influenza High Dose 2020-10-09 Completed Unive rsity of 00:00:00 [place] [facility] Influenza High Dose 2020-10-09 Completed Unive rsity of 00:00:00 [place] [facility] Influenza High Dose 2020-10-09 Completed Unive rsity of 00:00:00 [place] [facility] Influenza High Dose 2020-10-09 Completed Unive rsity of 00:00:00 [place] [facility] Influenza High Dose 2020-10-09 Completed Unive rsity of 00:00:00 [place] [facility] Influenza High Dose 2020-10-09 Completed Unive rsity of 00:00:00 [place] [facility] Influenza High Dose 2020-10-09 Completed Unive rsity of 00:00:00 [place] [facility] Influenza High Dose 2020-10-09 Completed Unive rsity of 00:00:00 [place] [facility] Influenza High Dose 2020-10-09 Completed Unive rsity of 00:00:00 [place] [facility] Influenza High Dose 2020-10-09 Completed Unive rsity of 00:00:00 [place] [facility] Influenza High Dose 2020-10-09 Completed Unive rsity of 00:00:00 [place] [facility] Influenza High Dose 2020-10-09 Completed Unive rsity of 00:00:00 [place] [facility] Influenza High Dose 2020-10-09 Completed Unive rsity of 00:00:00 [place] [facility] Influenza High Dose 2020-10-09 Completed Unive rsity of 00:00:00 [place] [facility] Influenza High Dose 2020-10-09 Completed Unive rsity of 00:00:00 [place] [facility] Influenza High Dose 2020-10-09 Completed Unive rsity of 00:00:00 [place] [facility] Influenza High Dose 2020-10-09 Completed Unive rsity of 00:00:00 [place] [facility] Influenza High Dose 2020-10-09 Completed Unive rsity of 00:00:00 [place] [facility] Influenza High Dose 2020-10-09 Completed Unive rsity of 00:00:00 [place] [facility] Influenza High Dose 2020-10-09 Completed Unive rsity of 00:00:00 [place] [facility] Influenza High Dose 2020-10-09 Completed Unive rsity of 00:00:00 [place] [facility] Influenza High Dose 2020-10-09 Completed Unive rsity of 00:00:00 [place] [facility] Influenza High Dose 2020-10-09 Completed Unive rsity of 00:00:00 [place] [facility] Influenza High Dose 2020-10-09 Completed Unive rsity of 00:00:00 [place] [facility] Influenza High Dose 2020-10-09 Completed Unive rsity of 00:00:00 [place] [facility] Influenza High Dose 2020-10-09 Completed Unive rsity of 00:00:00 [place] [facility] Influenza High Dose 2020-10-09 Completed Unive rsity of 00:00:00 [place] [facility] Influenza High Dose 2020-10-09 Completed Unive rsity of 00:00:00 [place] [facility] Influenza High Dose 2020-10-09 Completed Unive rsity of 00:00:00 [place] [facility] Influenza High Dose 2020-10-09 Completed Unive rsity of 00:00:00 [place] [facility] Influenza High Dose 2020-10-09 Completed Unive rsity of 00:00:00 [place] [facility] Influenza High Dose 2020-10-09 Completed Unive rsity of 00:00:00 [place] [facility] Influenza High Dose 2020-10-09 Completed Unive rsity of 00:00:00 [place] [facility] Influenza High Dose 2020-10-09 Completed Unive rsity of 00:00:00 [place] [facility] Influenza High Dose 2020-10-09 Completed Unive rsity of 00:00:00 [place] [facility] Influenza High Dose 2020-10-09 Completed Unive rsity of 00:00:00 [place] [facility] Influenza High Dose 2020-10-09 Completed Unive rsity of 00:00:00 [place] [facility] Influenza High Dose 2020-10-09 Completed Unive rsity of 00:00:00 [place] [facility] Influenza High Dose 2020-10-09 Completed Unive rsity of 00:00:00 [place] [facility] Influenza High Dose 2020-10-09 Completed Unive rsity of 00:00:00 [place] [facility] Influenza High Dose 2020-10-09 Completed Unive rsity of 00:00:00 [place] [facility] Influenza High Dose 2020-10-09 Completed Unive rsity of 00:00:00 [place] [facility] Influenza High Dose 2020-10-09 Completed Unive rsity of 00:00:00 [place] [facility] Influenza High Dose 2020-10-09 Completed Unive rsity of 00:00:00 [place] [facility] Influenza High Dose 2020-10-09 Completed Unive rsity of 00:00:00 [place] [facility] Influenza High Dose 2020-10-09 Completed Unive rsity of 00:00:00 [place] [facility] Influenza High Dose 2020-10-09 Completed Unive rsity of 00:00:00 [place] [facility] Influenza High Dose 2020-10-09 Completed Unive rsity of 00:00:00 [place] [facility] Influenza High Dose 2020-10-09 Completed Unive rsity of 00:00:00 [place] [facility] Influenza High Dose 2020-10-09 Completed Unive rsity of 00:00:00 [place] [facility] Influenza High Dose 2020-10-09 Completed Unive rsity of 00:00:00 [place] [facility] Influenza High Dose 2020-10-09 Completed Unive rsity of 00:00:00 [facility] Influenza High Dose 2020-10-09 Completed Unive rsity of 00:00:00 [facility] Influenza High Dose 2020-10-09 Completed Unive rsity of 00:00:00 [facility] Influenza High Dose 2020-10-09 Completed Unive rsity of 00:00:00 [facility] SARS-COV-2 COVID-19 2020-10-02 Completed Unive rsity of PFIZER VACCINE 00:00:00 [facility] SARS-COV-2 COVID-19 2020-10-02 Completed Unive rsity of PFIZER VACCINE 00:00:00 [facility] SARS-COV-2 COVID-19 2020-10-02 Completed Unive rsity of PFIZER VACCINE 00:00:00 [facility] SARS-COV-2 COVID-19 2020-10-02 Completed Unive rsity of PFIZER VACCINE 00:00:00 [facility] SARS-COV-2 COVID-19 2020-10-02 Completed Unive rsity of PFIZER VACCINE 00:00:00 [facility] SARS-COV-2 COVID-19 2020-10-02 Completed Unive rsity of PFIZER VACCINE 00:00:00 [facility] SARS-COV-2 COVID-19 2020-10-02 Completed Unive rsity of PFIZER VACCINE 00:00:00 [facility] SARS-COV-2 COVID-19 2020-10-02 Completed Unive rsity of PFIZER VACCINE 00:00:00 [facility] SARS-COV-2 COVID-19 2020-10-02 Completed Unive rsity of PFIZER VACCINE 00:00:00 [facility] SARS-COV-2 COVID-19 2020-10-02 Completed Unive rsity of PFIZER VACCINE 00:00:00 [facility] SARS-COV-2 COVID-19 2020-10-02 Completed Unive rsity of PFIZER VACCINE 00:00:00 [facility] SARS-COV-2 COVID-19 2020-10-02 Completed Unive rsity of PFIZER VACCINE 00:00:00 [facility] SARS-COV-2 COVID-19 2020-10-02 Completed [facility] of PFIZER VACCINE 00:00:00 [place] [facility] SARS-COV-2 COVID-19 2020-10-02 Completed Unive rsity of PFIZER VACCINE 00:00:00 [facility] SARS-COV-2 COVID-19 2020-10-02 Completed Unive rsity of PFIZER VACCINE 00:00:00 [facility] SARS-COV-2 COVID-19 2020-10-02 Completed Unive rsity of PFIZER VACCINE 00:00:00 [facility] SARS-COV-2 COVID-19 2020-10-02 Completed Unive rsity of PFIZER VACCINE 00:00:00 [facility] SARS-COV-2 COVID-19 2020-10-02 Completed Unive rsity of PFIZER VACCINE 00:00:00 [facility] SARS-COV-2 COVID-19 2020-10-02 Completed Unive [facility]ity of PFIZER VACCINE 00:00:00 [facility] SARS-COV-2 COVID-19 2020-10-02 Completed Unive rsity of PFIZER VACCINE 00:00:00 [facility] SARS-COV-2 COVID-19 2020-10-02 Completed Unive rsity of PFIZER VACCINE 00:00:00 [facility] SARS-COV-2 COVID-19 2020-10-02 Completed [facility]ive rsity of PFIZER VACCINE 00:00:00 [facility] SARS-COV-2 COVID-19 2020-10-02 Completed Unive rsity of PFIZER VACCINE 00:00:00 [facility] SARS-COV-2 COVID-19 2020-10-02 Completed Unive [facility]ity of PFIZER VACCINE 00:00:00 [facility] SARS-COV-2 COVID-19 2020-10-02 Completed Unive [facility]ity of PFIZER VACCINE 00:00:00 [facility] SARS-COV-2 COVID-19 2020-10-02 Completed Unive rsity of PFIZER VACCINE 00:00:00 [facility] SARS-COV-2 COVID-19 2020-10-02 Completed [facility]ive [facility]ity of PFIZER VACCINE 00:00:00 [facility] SARS-COV-2 COVID-19 2020-10-02 Completed Unive [facility]ity of PFIZER VACCINE 00:00:00 [facility] SARS-COV-2 COVID-19 2020-10-02 Completed [facility]ive [facility]ity of PFIZER VACCINE 00:00:00 [facility] SARS-COV-2 COVID-19 2020-10-02 Completed [facility]ive [facility]ity of PFIZER VACCINE 00:00:00 [facility] SARS-COV-2 COVID-19 2020-10-02 Completed [facility]ive [facility] of PFIZER VACCINE 00:00:00 [facility] SARS-COV-2 COVID-19 2020-10-02 Completed [facility]ive [facility]ity of PFIZER VACCINE 00:00:00 [facility] SARS-COV-2 COVID-19 2020-10-02 Completed [facility]ive [facility] of PFIZER VACCINE 00:00:00 [facility] SARS-COV-2 COVID-19 2020-10-02 Completed [facility]ive [facility] of PFIZER VACCINE 00:00:00 [facility] SARS-COV-2 COVID-19 2020-10-02 Completed [facility]ive [facility]ity of PFIZER VACCINE 00:00:00 [facility] SARS-COV-2 COVID-19 2020-10-02 Completed [facility]ive [facility]ity of PFIZER VACCINE 00:00:00 [facility] SARS-COV-2 COVID-19 2020-10-02 Completed [facility]ive [facility]ity of PFIZER VACCINE 00:00:00 [facility] SARS-COV-2 COVID-19 2020-10-02 Completed Unive [facility]ity of PFIZER VACCINE 00:00:00 [facility] SARS-COV-2 COVID-19 2020-10-02 Completed [facility]ive [facility]ity of PFIZER VACCINE 00:00:00 [facility] SARS-COV-2 COVID-19 2020-10-02 Completed [facility]ive [facility]ity of PFIZER VACCINE 00:00:00 [facility] SARS-COV-2 COVID-19 2020-10-02 Completed Unive [facility]ity of PFIZER VACCINE 00:00:00 [facility] SARS-COV-2 COVID-19 2020-10-02 Completed [facility]ive [facility]ity of PFIZER VACCINE 00:00:00 [facility] SARS-COV-2 COVID-19 2020-10-02 Completed [facility]ive [facility]ity of PFIZER VACCINE 00:00:00 [facility] SARS-COV-2 COVID-19 2020-10-02 Completed Unive [facility]ity of PFIZER VACCINE 00:00:00 [facility] SARS-COV-2 COVID-19 2020-10-02 Completed Unive [facility]ity of PFIZER VACCINE 00:00:00 [facility] SARS-COV-2 COVID-19 2020-10-02 Completed [facility]ive [facility]ity of PFIZER VACCINE 00:00:00 [facility] SARS-COV-2 COVID-19 2020-10-02 Completed [facility]ive [facility]ity of PFIZER VACCINE 00:00:00 [facility] SARS-COV-2 COVID-19 2020-10-02 Completed [facility]ive [facility]ity of PFIZER VACCINE 00:00:00 [facility] SARS-COV-2 COVID-19 2020-10-02 Completed [facility]ive [facility] of PFIZER VACCINE 00:00:00 [facility] SARS-COV-2 COVID-19 2020-10-02 Completed [facility] of PFIZER VACCINE 00:00:00 [facility] SARS-COV-2 COVID-19 2020-10-02 Completed [facility] of PFIZER VACCINE 00:00:00 [facility] SARS-COV-2 COVID-19 2020-10-02 Completed [facility] of PFIZER VACCINE 00:00:00 [facility] SARS-COV-2 COVID-19 2020-10-02 Completed [facility] of PFIZER VACCINE 00:00:00 [facility] SARS-COV-2 COVID-19 2020-10-02 Completed [facility] of PFIZER VACCINE 00:00:00 [facility] SARS-COV-2 COVID-19 2020-10-02 Completed [facility] of PFIZER VACCINE 00:00:00 [facility] SARS-COV-2 COVID-19 2020-10-02 Completed [facility] of PFIZER VACCINE 00:00:00 [facility] SARS-COV-2 COVID-19 2020-10-02 Completed Unive rsity of PFIZER VACCINE 00:00:00 [facility] SARS-COV-2 COVID-19 2020-10-02 Completed Unive rsity of PFIZER VACCINE 00:00:00 [facility] SARS-COV-2 COVID-19 2020-10-02 Completed Unive rsity of PFIZER VACCINE 00:00:00 [facility] SARS-COV-2 COVID-19 2020-10-02 Completed Unive rsity of PFIZER VACCINE 00:00:00 [facility] SARS-COV-2 COVID-19 2020-10-02 Completed Unive rsity of PFIZER VACCINE 00:00:00 [facility] SARS-COV-2 COVID-19 2020-10-02 Completed Unive rsity of PFIZER VACCINE 00:00:00 [facility] SARS-COV-2 COVID-19 2020-10-02 Completed Unive rsity of PFIZER VACCINE 00:00:00 [facility] SARS-COV-2 COVID-19 2020-10-02 Completed Unive rsity of PFIZER VACCINE 00:00:00 [facility] SARS-COV-2 COVID-19 2020-10-02 Completed Unive rsity of PFIZER VACCINE 00:00:00 [facility] SARS-COV-2 COVID-19 2020-10-02 Completed Unive rsity of PFIZER VACCINE 00:00:00 [facility] SARS-COV-2 COVID-19 2020-10-02 Completed Unive rsity of PFIZER VACCINE 00:00:00 [facility] SARS-COV-2 COVID-19 2020-10-02 Completed Unive rsity of PFIZER VACCINE 00:00:00 [facility] SARS-COV-2 COVID-19 2020-10-02 Completed Unive rsity of PFIZER VACCINE 00:00:00 [facility] SARS-COV-2 COVID-19 2020-10-02 Completed Unive rsity of PFIZER VACCINE 00:00:00 [facility] SARS-COV-2 COVID-19 2020-10-02 Completed Unive rsity of PFIZER VACCINE 00:00:00 [facility] SARS-COV-2 COVID-19 2020-10-02 Completed Unive rsity of PFIZER VACCINE 00:00:00 [facility] SARS-COV-2 COVID-19 2020-10-02 Completed Unive rsity of PFIZER VACCINE 00:00:00 [facility] SARS-COV-2 COVID-19 2020-10-02 Completed Unive rsity of PFIZER VACCINE 00:00:00 [facility] SARS-COV-2 COVID-19 2020-10-02 Completed Unive rsity of PFIZER VACCINE 00:00:00 [facility] SARS-COV-2 COVID-19 2020-10-02 Completed Unive rsity of PFIZER VACCINE 00:00:00 [facility] SARS-COV-2 COVID-19 2020-10-02 Completed Unive rsity of PFIZER VACCINE 00:00:00 [facility] SARS-COV-2 COVID-19 2020-10-02 Completed Unive rsity of PFIZER VACCINE 00:00:00 [facility] SARS-COV-2 COVID-19 2020-10-02 Completed Unive rsity of PFIZER VACCINE 00:00:00 [facility] SARS-COV-2 COVID-19 2020-10-02 Completed Unive rsity of PFIZER VACCINE 00:00:00 [facility] SARS-COV-2 COVID-19 2020-10-02 Completed Unive rsity of PFIZER VACCINE 00:00:00 [facility] SARS-COV-2 COVID-19 2020-10-02 Completed Unive rsity of PFIZER VACCINE 00:00:00 [facility] Vital Signs Vital Name Observation Time Observation Value Comments Source Systolic blood 2022-07-14 21:05:00 143 mm[Hg] Univer sity of pressure [facility] Diastolic blood 2022-07-14 21:05:00 66 mm[Hg] Unive rsity of pressure [facility] Heart rate 2022-07-14 21:05:00 59 /min [facility] Body temperature 2022-07-14 21:05:00 36.89 Renu [facility] Respiratory rate 2022-07-14 21:05:00 20 /min [facility] Oxygen saturation in 2022-07-14 21:05:00 97 /min [facility] Arterial blood by [facility] Pulse oximetry [place] Body height 2022-07-12 01:00:00 182.9 cm [facility] Body weight 2022-07-12 01:00:00 75.66 kg [facility] BMI 2022-07-12 01:00:00 22.62 kg/m2 [facility] Systolic blood 2022-07-11 16:00:00 138 mm[Hg] Univer sity of pressure [facility] Diastolic blood 2022-07-11 16:00:00 68 mm[Hg] [facility] pressure [facility] Heart rate 2022-07-11 16:00:00 65 /min [facility] Respiratory rate 2022-07-11 16:00:00 15 /min [facility] Oxygen saturation in 2022-07-11 16:00:00 98 /min [facility] Arterial blood by [place] [facility] Pulse oximetry [facility] Body temperature 2022-07-11 15:35:00 36.67 Renu [facility] Body weight 2022-07-11 15:35:00 77.111 kg [facility] BMI 2022-07-11 15:35:00 23.06 kg/m2 [facility] Systolic blood 2022-07-10 13:12:00 122 mm[Hg] [facility]iver [facility]ity of pressure [facility] Diastolic blood 2022-07-10 13:12:00 72 mm[Hg] [facility] of pressure [facility] Heart rate 2022-07-10 13:12:00 70 /min [facility] Body height 2022-07-10 13:12:00 182.9 cm [facility] Body weight 2022-07-10 13:12:00 77.111 kg [facility] BMI 2022-07-10 13:12:00 23.06 kg/m2 [facility] Oxygen saturation in 2022-07-10 13:12:00 96 /min University of Arterial blood by [facility] Pulse oximetry Branch Systolic blood 2022-06-25 19:18:00 136 mm[Hg] Univer [facility]ity of pressure [facility] Diastolic blood 2022-06-25 19:18:00 77 mm[Hg] [facility] of pressure [facility] Heart rate 2022-06-25 19:18:00 72 /min [facility] Body height 2022-06-25 19:18:00 182.9 cm [facility] Body weight 2022-06-25 19:18:00 78.472 kg [facility] BMI 2022-06-25 19:18:00 23.46 kg/m2 [facility] Oxygen saturation in 2022-06-25 19:18:00 99 /min University of Arterial blood by [facility] Pulse oximetry Branch Systolic blood 2022-05-02 16:41:00 121 mm[Hg] [facility] of pressure [facility] Diastolic blood 2022-05-02 16:41:00 68 mm[Hg] [facility] of pressure [facility] Heart rate 2022-05-02 16:41:00 60 /min [facility] Body temperature 2022-05-02 16:41:00 36.06 Renu [facility] Respiratory rate 2022-05-02 16:41:00 18 /min [facility] Oxygen saturation in 2022-05-02 16:41:00 98 /min [facility] of Arterial blood by [facility] Pulse oximetry Branch Body weight 2022-05-02 09:45:00 78.217 kg per scale [facility] BMI 2022-05-02 09:45:00 23.39 kg/m2 [facility] Body height 2022-05-01 23:10:00 182.9 cm [facility] Body weight 2022-04-27 20:16:00 77.4 kg [facility] BMI 2022-04-27 20:16:00 23.39 kg/m2 [facility] Systolic blood 2022-03-27 20:27:00 126 mm[Hg] [facility] of pressure [facility] Diastolic blood 2022-03-27 20:27:00 57 mm[Hg] [facility] of pressure [facility] Heart rate 2022-03-27 20:27:00 70 /min [facility] Body temperature 2022-03-27 20:27:00 36.28 Renu [facility] Body height 2022-03-27 20:27:00 182.9 cm [facility] Body weight 2022-03-27 20:27:00 77.111 kg [facility] BMI 2022-03-27 20:27:00 23.06 kg/m2 [facility] Oxygen saturation in 2022-03-27 20:27:00 99 /min University [facility] Arterial blood by [facility] Pulse oximetry Branch Systolic blood 2022-03-12 18:04:00 105 mm[Hg] Univer [facility]ity of pressure [facility] Diastolic blood 2022-03-12 18:04:00 55 mm[Hg] [facility] pressure [facility] Heart rate 2022-03-12 18:04:00 57 /min [facility] Body temperature 2022-03-12 18:04:00 36.78 Renu [facility] Body height 2022-03-12 18:04:00 182.9 cm [facility] Body weight 2022-03-12 18:04:00 76.204 kg [facility] BMI 2022-03-12 18:04:00 22.78 kg/m2 [facility] Oxygen saturation in 2022-03-12 18:04:00 98 /min [facility] Arterial blood by [place] [facility] Pulse oxim[facility] Systolic blood 2022-03-02 15:26:00 120 mm[Hg] [facility] Diastolic blood 2022-03-02 15:26:00 56 mm[Hg] [facility] of pressure [facility] Heart rate 2022-03-02 15:26:00 56 /min [facility] Respiratory rate 2022-03-02 15:26:00 20 /min [facility] Body height 2022-03-02 15:26:00 177.8 cm [facility] Body weight 2022-03-02 15:26:00 76.204 kg [facility] BMI 2022-03-02 15:26:00 24.11 kg/m2 [facility] Oxygen saturation in 2022-03-02 15:26:00 100 /min [facility] blood by [place] [facility] Systolic blood 2022-02-06 21:30:00 137 mm[Hg] [facility] pressure [facility] Diastolic blood 2022-02-06 21:30:00 79 mm[Hg] [facility]ive [facility] of pressure [facility] Heart rate 2022-02-06 21:30:00 70 /min [facility] Body height 2022-02-06 21:30:00 182.9 cm [facility] Body weight 2022-02-06 21:30:00 70.308 kg [facility] BMI 2022-02-06 21:30:00 21.02 kg/m2 [facility] Oxygen saturation in 2022-02-06 21:30:00 99 /min [facility] Arterial blood by [facility] ralph Pulse oximetry Branch Systolic blood 2021-11-03 20:53:00 110 mm[Hg] [facility]iver [facility] of pressure [facility] Diastolic blood 2021-11-03 20:53:00 68 mm[Hg] [facility]ive [facility] of pressure [facility] Heart rate 2021-11-03 20:53:00 68 /min [facility] Body temperature 2021-11-03 20:53:00 36.56 Renu [facility] Body height 2021-11-03 20:53:00 182.9 cm [facility] Body weight 2021-11-03 20:53:00 70.308 kg [facility] BMI 2021-11-03 20:53:00 21.02 kg/m2 [facility] Oxygen saturation in 2021-11-03 20:53:00 99 /min [facility] Arterial blood by [facility] Pulse oximetry Branch Systolic blood 2021-10-27 21:12:00 120 mm[Hg] Univer [facility]ity of pressure [facility] Diastolic blood 2021-10-27 21:12:00 70 mm[Hg] [facility]ive [facility] of pressure [facility] Heart rate 2021-10-27 21:12:00 66 /min [facility] Body height 2021-10-27 20:29:00 182.9 cm [facility] Body weight 2021-10-27 20:29:00 70.308 kg [facility] BMI 2021-10-27 20:29:00 21.02 kg/m2 [facility] Systolic blood 2021-10-27 14:20:00 108 mm[Hg] Univer [facility]ity of pressure [facility] Diastolic blood 2021-10-27 14:20:00 92 mm[Hg] [facility]ive [facility]ity of pressure [facility] Heart rate 2021-10-27 14:20:00 50 /min [facility] Body temperature 2021-10-27 14:20:00 36.11 Renu [facility] Respiratory rate 2021-10-27 14:20:00 18 /min [facility] Body height 2021-10-27 14:20:00 182.9 cm [facility] Body weight 2021-10-27 14:20:00 70.308 kg [facility] BMI 2021-10-27 14:20:00 21.02 kg/m2 [facility] Oxygen saturation in 2021-10-27 14:20:00 100 /min [facility] Arterial blood by [employer] ralph Pulse oximetry Branch Systolic blood 2021-10-18 16:05:00 133 mm[Hg] Univer [facility]ity of pressure [facility] Diastolic blood 2021-10-18 16:05:00 65 mm[Hg] [facility]ive [facility]ity of pressure [facility] Heart rate 2021-10-18 16:05:00 70 /min [facility] Body temperature 2021-10-18 16:05:00 36.72 Renu [facility] Respiratory rate 2021-10-18 16:05:00 16 /min [facility] Body height 2021-10-18 16:05:00 182.9 cm [facility] Body weight 2021-10-18 16:05:00 72.576 kg [facility] BMI 2021-10-18 16:05:00 21.70 kg/m2 [facility] Oxygen saturation in 2021-10-18 16:05:00 98 /min [facility] Arterial blood by [employer] ralph Pulse oximetry Branch Systolic blood 2021-08-27 18:10:00 101 mm[Hg] [facility]iver [facility]ity of pressure [facility] Diastolic blood 2021-08-27 18:10:00 63 mm[Hg] [facility]ive rsity of pressure [facility] Heart rate 2021-08-27 18:10:00 61 /min [facility] Body temperature 2021-08-27 18:10:00 36.67 Renu [facility] Respiratory rate 2021-08-27 18:10:00 16 /min [facility] Body height 2021-08-27 18:10:00 182.9 cm Universi ty [facility] Body weight 2021-08-27 18:10:00 70.308 kg Universi [facility] BMI 2021-08-27 18:10:00 21.02 kg/m2 Universi [facility] Oxygen saturation in 2021-08-27 18:10:00 100 /min University [facility] Arterial blood by [facility] Pulse oximetry Branch Systolic blood 2021-08-14 17:54:00 117 mm[Hg] Univer sity of pressure [facility] Diastolic blood 2021-08-14 17:54:00 74 mm[facility]Hg] [facility] Heart rate 2021-08-14 17:54:00 71 /min Universi [facility] Body temperature 2021-08-14 17:54:00 36.39 Renu [facility] Body height 2021-08-14 17:54:00 182.9 cm Universi [facility] Body weight 2021-08-14 17:54:00 71.079 kg Universi [facility] BMI 2021-08-14 17:54:00 21.25 kg/m2 Universi [facility] Oxygen saturation in 2021-08-14 17:54:00 99 /min [facility] Arterial blood by [facility] Pulse oximetry Branch Procedures Procedure Date / Time Performing Clinician Source Performed AMMONIA, PLASMA 2022-07-14 12:25:00 Lilliam [facility] CBC WITH DIFF 2022-07-14 12:24:00 Dipesh Harvey [facility] PHOSPHORUS 2022-07-14 10:00:00 Dipesh Harvey [facility] MAGNESIUM 2022-07-14 10:00:00 Wes Dipesh [facility] C-REACTIVE PROTEIN 2022-07-14 10:00:00 Dipesh [facility] BASIC METABOLIC PANEL (NA, 2022-07-14 10:00:00 Dipesh Harvey [facility] K, CL, CO2, GLUCOSE, BUN, Medica l Branch CREATININE, CA) SYPHILIS IGG/IGM 2022-07-14 09:58:00 Vyas, Shira [facility] MAGNESIUM 2022-07-13 09:15:00 [place] Main [facility] VITAMIN B12, LEVEL 2022-07-13 09:15:00 Wes Dipesh [facility] FOLATE 2022-07-13 09:15:00 Wes Dipesh [facility] HEPATIC FUNCTION PANEL 2022-07-13 09:15:00 Dipesh Harvey [facility] ([id number]) (ALB,T.PRO,BILI [facility] [place] T,BU/BC,ALT,AST,ALK PHOS) BASIC METABOLIC PANEL (NA, 2022-07-13 09:15:00 [place] Main [facility] K, CL, CO2, GLUCOSE, BUN, Medica l Branch CREATININE, CA) SEDIMENTATION RATE 2022-07-13 09:15:00 Wes Dipesh [facility] CBC WITH DIFF 2022-07-13 09:15:00 [place] [facility] HOMOCYSTEINE 2022-07-13 09:15:00 Lilliam [facility] TROPONIN I 2022-07-12 23:04:00 Anastacio [facility] ACTIVATED PARTIAL THRMPLAS 2022-07-12 23:04:00 Shira Vyas [facility] HB ECG ROUTINE & RHYTHM 2022-07-12 17:47:15 [place] Main [facility] TRANSTHORACIC ECHO (TTE) 2022-07-12 17:29:00 Shira Vyas [facility] HEAD WO CONTRAST 2022-07-12 16:36:28 [place] [facility] URINE DRUG (IMMUNOASSAY) - 2022-07-12 15:33:00 [place] Main [facility] COMPREHENSIVE DRUG SCREEN Medica l Branch TROPONIN I 2022-07-12 15:31:00 [place] Main [facility] POCT GLUCOSE (AUTOMATED) 2022-07-12 13:45:00 Logan Fernandez [facility] MAGNESIUM 2022-07-12 09:02:00 Lilliam [facility] TROPONIN I 2022-07-12 09:02:00 Vyas, [facility] BASIC METABOLIC PANEL (NA, 2022-07-12 09:02:00 Vyas, [facility] K, CL, CO2, GLUCOSE, BUN, Medica l Branch CREATININE, CA) CBC WITH DIFF 2022-07-12 09:02:00 Vyas, [facility] ACTIVATED PARTIAL THRMPLAS 2022-07-12 09:02:00 Vyas, [facility] TROPONIN I 2022-07-12 02:38:00 Vyas, [facility] PROTHROMBIN TIME / INR 2022-07-12 02:38:00 Vyas, [facility] ACTIVATED PARTIAL THRMPLAS 2022-07-12 02:38:00 Vyas, [facility] TROPONIN I 2022-07-11 22:52:00 Dino Baker [facility] THYROID STIMULATING HORMONE 2022-07-11 22:52:00 Vyas, [facility] LIPASE 2022-07-11 19:34:00 Dino Baker [facility] TROPONIN I 2022-07-11 19:34:00 Dino Baker [facility] COMP. METABOLIC PANEL 2022-07-11 19:34:00 Dino Baker [facility] ([id number]) [facility] CBC WITH DIFF 2022-07-11 19:34:00 Dino Baker [facility] GLYCOSYLATED HEMOGLOBIN 2022-07-11 19:34:00 Lilliam, [facility] (A1C) [facility] EKG-12 LEAD 2022-07-11 18:42:59 Dino Baker [facility] CONSENT/REFUSAL FOR 2022-07-11 18:31:35 Doctor Unassigned, [facility] DIAGNOSIS AND TREATMENT [place] [facility] XR CHEST 2 VW 2022-07-11 16:53:39 Dino Baker [facility] CONSENT/REFUSAL FOR 2022-07-11 15:30:17 Doctor Unassigned, [facility] DIAGNOSIS AND TREATMENT [place] [facility] POCT URINALYSIS 2022-07-10 00:00:00 [facility] nabil jane [facility] ASSIGNMENT OF BENEFITS 2022-06-04 17:03:28 Doctor Unassigned, [facility] Name [facility] POCT GLUCOSE (AUTOMATED) 2022-05-02 13:23:00 Michele [facility] POCT GLUCOSE (AUTOMATED) 2022-05-02 13:23:00 Michele Meraz [facility] MAGNESIUM 2022-05-02 09:46:00 Christiano [facility] BASIC METABOLIC PANEL (NA, 2022-05-02 09:46:00 Otilia Alvarado [facility] K, CL, CO2, GLUCOSE, BUN, Medica l Branch CREATININE, CA) CBC WITH DIFF 2022-05-02 09:46:00 Christiano [facility] MAGNESIUM 2022-05-02 09:46:00 Christiano [facility] BASIC METABOLIC PANEL (NA, 2022-05-02 09:46:00 Otilia Alvarado [facility] K, CL, CO2, GLUCOSE, BUN, Medica l Branch CREATININE, CA) CBC WITH DIFF 2022-05-02 09:46:00 Christiano [facility] XR CHEST 1 VW 2022-05-01 22:10:00 Kathleen Alvarado [facility] ELECTROPHYSIOLOGY PROCEDURE 2022-05-01 17:50:27 Michele Meraz [facility] ELECTROPHYSIOLOGY PROCEDURE 2022-05-01 17:50:27 Kt [facility] ELECTROPHYSIOLOGY PROCEDURE 2022-05-01 17:50:27 Michele Meraz [facility] ELECTROPHYSIOLOGY PROCEDURE 2022-05-01 17:50:27 Kt [facility] INSURANCE CORRESPONDENCE 2022-03-04 06:01:00 Doctor Unassigned, [facility] [place] [facility] EXTERNAL PROVIDER RECORDS 2022-01-14 06:01:00 Doctor Unassigned, [facility] [place] [facility] EXTERNAL PROVIDER - ADC 2021-12-29 06:01:00 Doctor UnassEra silva [facility] CARDIOLOGY [place] [facility] REFERRAL- REQUEST/RESPONSE 2021-11-17 05:01:00 Doctor Unassigned , [facility] [place] [facility] CBC WITH DIFF 2021-11-03 21:42:00 Shira Branch Crane o f [facility] Encounters Start End Encounter Admission Attending Care Care Encounter Source Date/Time Date/Time Type Type Clinicians Facility Department ID 2022-03-16 Outpatient [facility] [id number] [place] 07:57:43 [id number] Health 2022-09-25 2022-09-25 Outpatient [facility]ON[facility]Z [facility] [id number] Univers 11:20:00 11:20:00 SHIRA BRANCH [facility] 2022-07-16 2022-07-16 Outpatient Sean MERAZ [facility] [id number] Univers 08:40:00 08:40:00 MICHELE [facility] 2022-07-15 2022-07-15 Transition JAKOB [place] [id number] Univers 00:00:00 00:00:00 of Care Sarai LINARES [id number] i [facility] [id number] [id number] [facility] 403 Branch 2022-07-11 2022-07-14 Inpatient X LYNNETTE [facility] [id number] Univers 13:38:00 17:03:00 LOGAN [facility] 2022-07-11 2022-07-14 Hospital Morrical, Dino BOYER [id number] Univers 13:38:00 17:03:00 Encounter Logan Fernandez Theresairisdanyel PETERSON [facility].1. 13.10 [facility] [id number] Anthony as [id number] [facility] 089 Branch 2022-07-14 2022-07-14 Telephone [facility] [id number] Univers 00:00:00 00:00:00 [facility] [id number] ity of [facility] [id number] Anthony as GUIDO?BLEA [id number] Or dicramiro HENRIQUEZ [address] [facility] OFFICE [facility] 2022-07-14 2022-07-14 Telephone Kt [facility] [id number] Univers 00:00:00 00:00:00 Michele [facility] [id number] i ty of [facility] 4.2.[place].2.[place] [id number] Or dicramiro NAL 0[address] [facility] 2022-07-13 2022-07-13 Telephone [facility] [id number] Univers 00:00:00 00:00:00 [facility] [id number] ity of [place] 4.2.7.2.686 Anthony as GUIDO?BLEA [id number] Or michele HENRIQUEZ 0[address] [facility] OFFICE [facility] 2022-07-11 2022-07-11 Emergency X MORRICAL, [facility] ERT [id number] Univers 10:39:00 13:14:00 [facility] 2022-07-11 2022-07-11 Emergency Morrical, TRAUMA [id number] Univers 10:39:00 13:14:00 [place] KEEWATIN [id number] [place] [id number] [address] 2022-07-10 2022-07-10 Public Policy Mediator Lab, Ang - Db [facility] [id number] Univers 09:30:00 09:45:00 Visit [facility] [id number] ity of [facility] [id number] Anthony as GUIDO?BLEA [id number] Or dicramiro HENRIQUEZ [address] [facility] OFFICE [facility] 2022-07-10 2022-07-10 Outpatient R [facility] [id number] Univers 08:20:00 09:12:03 [facility] 2022-07-10 2022-07-10 Office [facility] [id number] Univers 08:20:00 09:12:03 Visit [facility] [id number] ity of [place] 4.2.7.2.686 Anthony as GUIDO?BLEA [id number] [address] OFFICE [facility] 2022-07-09 2022-07-09 Refill [facility] [id number] Univers 00:00:00 00:00:00 [facility] [id number] ity of [place] 4.2.7.2.686 Anthony as GUIDO?BLEA [id number] [address] 2022-07-04 2022-07-04 Telephone [facility] [id number] Univers 00:00:00 00:00:00 [place]hele [place] [id number] i ty of [place] [id number] [facility] 059 [facility] 2022-06-28 2022-06-28 Refill Community [facility]enaventuraprudencioGALLUP [facility]DI[facility] 1.2.840.114 [id number] Univers 00:00:00 00:00:00 [facility] 350.1.13.10 ity of [place] 4.2.7.2.686 Anthony as GUIDO?BLEA [id number] [address] OFFICE [facility] 2022-06-25 2022-06-25 Outpatient R SHIRA BRANCH [facility] [id number] Univers 14:20:00 15:24:09 SHIRA BRANCH [facility] 2022-06-25 2022-06-25 Office [facility]GALLUP [facility] 1.2.840.114 [id number] Univers 14:20:00 15:24:09 Visit [facility] 350.1.13.10 ity of [place] 4.2.7.2.686 Anthony as GUIDO?BLEA [id number] [address] OFFICE [facility] 2022-06-19 2022-06-19 Telephone [facility] [place]omabiancaGALLUP [facility] 1.2.670.534 [id number] Univers 00:00:00 00:00:00 Michele HEALTH 350.1.13.10 it y of [place] 4.2.7.2.686 Anthony as GUIDO?BLEA [id number] Or dical KNEY [address] [place] MEDICAL OFFICE [facility] 2022-06-04 2022-06-04 Outpatient R KT [facility] [id number] Univers 12:00:00 23:59:00 MICHELE ity of [facility] 2022-06-04 2022-06-04 Orders Doctor CARMEL 1.2.840.114 [id number] Univers 00:00:00 00:00:00 Only Unassigned, NICHOLAS 350.1.13.10 [facility] 4.2.7.2.686 Anthony as [phone] [facility] [address] [place] 2022-05-28 2022-05-28 Telephone [facility] 1.2.163.689 [id number] Univers 00:00:00 00:00:00 Michele [place] 350.1.13.10 i ty of [place].2.[place] [id number] [facility] 059 [facility] 2022-05-25 2022-05-25 Telephone Du, UNIVERSIT 1.2.840.114 10 [id number] Univers 00:00:00 00:00:00 Qiangjun Y HEALTH 350.1.13.10 ity of [place] [id number] [facility] [address] [place] 2022-05-03 2022-05-03 Telephone CARMEL Gaona 1.2.581.592 [id number] [id number] Univers 00:00:00 00:00:00 Dylan PETERSON 350.1.13.10 it y of [facility] 4.2.7.2.686 Anthony as [phone] [facility] [address] [place] 2022-05-03 2022-05-03 Telephone Du, UNIVERSIT 1.2.840.114 10 [id number] Univers 00:00:00 00:00:00 Qiangjun Y HEALTH 350.1.13.10 ity of [place] [id number] [facility] [address] [place] 2022-05-03 2022-05-03 Telephone [facility] 1.2.122.642 [id number] [id number] Univers 00:00:00 00:00:00 Michele PATRIA 350.1.13.10 i ty [facility] [place].2.7.2.[place] [facility] [id number] Or dical [facility] 059 [facility] 2022-05-01 2022-05-02 Outpatient R CYNTHIA [facility] [id number] Univers 09:33:00 17:27:00 ISABELLA ity [facility] 2022-05-01 2022-05-02 Hospital Michele Meraz 1.2.840.114 [id number] Univers 09:33:00 17:27:00 Encounter Cynthia Isabella Krzysztof PETERSON 350.1.1 3.10 ity [facility] 4.2.7.2.686 Anthony as [id number] [facility] [address] [place] 2022-05-01 2022-05-01 Surgery ROSALIND Meraz 1.2.840.114 [id number] Univers 09:30:00 13:00:00 Michelebuck PETERSON 350.1.13.10 it y [facility] 4.2.7.2.686 Anthony as [id number] [facility] [address] [place] 2022-04-14 2022-04-14 Outpatient R [facility] [id number] Univers 14:00:00 14:00:00 ity [facility] 2022-04-14 2022-04-14 Public Policy Mediator 1, Adc Lab [facility] 1.2.840.114 [id number] Univers 09:30:00 09:45:00 Visit Burton Garcia 350.1.13.10 ity [facility] [place].2.7.2.[place] [id number] [facility] [address] [place] 2022-04-14 2022-04-14 Outpatient R KANDY [facility] [id number] Univers 09:30:00 09:30:00 BURTON dangelo [facility] 2022-04-14 2022-04-14 [facility] 1.2.840.114 [id number] Univers 00:00:00 00:00:00 Shira HEALTH 350.1.13.10 ity of [place] 4.2.7.2.686 Anthony as GUIDO?BLEA [id number] [address] MEDICAL OFFICE [facility] 2022-04-08 2022-04-08 Telephone [facility] 1.2.649.580 [id number] Univers 00:00:00 00:00:00 Shira HEALTH 350.1.13.10 ity of [facility] 4.2.7.2.686 Anthony as GUIDO?BLEA [id number] [address] OFFICE [facility] 2022-04-01 2022-04-01 Telephone ROSALIND Meraz 1.2.755.311 [id number] Univers 00:00:00 00:00:00 Michele NICHOLAS 350.1.13.10 it y of [facility] 4.2.7.2.686 Anthony as [id number] [address] 2022-03-27 2022-03-27 Outpatient R [facility]ENTERPrudencioUNIVERSITY [facility] [id number] Univers 14:00:00 15:19:35 SHIRA ity [facility] 2022-03-27 2022-03-27 Office [facility] 1.2.840.114 [id number] Univers 14:00:00 15:19:35 Visit Shira HEALTH 350.1.13.10 ity of [place] 4.2.7.2.686 Anthony as GUIDO?BLEA [id number] [address] MEDICAL OFFICE [facility] 2022-03-26 2022-03-26 [facility] 1.2.840.114 [id number] Univers 00:00:00 00:00:00 Shira HEALTH 350.1.13.10 ity of [place] 4.2.7.2.686 Anthony as GUIDO?BLEA [id number] [address] OFFICE [facility] 2022-03-23 2022-03-23 Telephone [facility] 1.2.102.938 [id number] Univers 00:00:00 00:00:00 Michele [place] 350.1.13.10 i ty of [facility] 4.2.7.2.686 [place] [id number] Or michele NAL 059 [facility] 2022-03-19 2022-03-19 Outpatient R [facility]UNIV[facility] [id number] Univers 09:20:00 09:20:00 MICHELE ity of [facility] 2022-03-17 2022-03-17 Telephone [facility] 1.2.076.963 [id number] Univers 00:00:00 00:00:00 [facility] 350.1.13.10 ity of [facility] 4.2.7.2.686 Anthony as GUIDO?BLEA [id number] [facility] [address] OFFICE [facility] 2022-03-17 2022-03-17 [facility] 1.2.840.114 [id number] Univers 00:00:00 00:00:00 [facility] 350.1.13.10 ity of [facility] 4.2.7.2.686 Anthony as GUIDO?BLEA [phone] [facility] Womenram[facility] HENRIQUEZ [address] [place] [address] OFFICE [facility] 2022-03-16 2022-03-16 [facility] 1.2.840.114 [id number] Univers 00:00:00 00:00:00 Fillmore HEALTH 350.1.13.10 ity of [facility] 4.2.7.2.686 Anthony as GUIDO?BLEA [id number] [address] OFFICE [facility] 2022-03-12 2022-03-12 Outpatient R [facility]UNIV[facility] [id number] Univers 12:00:00 12:44:36 MICHELE ity [facility] 2022-03-12 2022-03-12 Office [facility] 1.2.840.114 [id number] Univers 12:00:00 12:44:36 Visit Michele [facility] 350.1.13.10 i ty of SRINIVASCLEARSKY [facility] 4.2.7.2.686 [place] [id number] Or michele NAL [address] [place] [address] 2022-03-10 2022-03-10 Telephone DirkGALLUP [facility]DI[facility] 1.2.143.788 [id number] Univers 00:00:00 00:00:00 Anil HEALTH 350.1.13.10 it y of [place] 4.2.7.2.686 Anthony as GUIDO?BLEA [id number] [address] MEDICAL OFFICE [facility] 2022-03-09 2022-03-09 Outpatient R DIRKUNIVERS[facility] [id number] Univers 16:00:00 16:00:00 ANIL ity of [facility] 2022-03-09 2022-03-09 Telephone [facility]irkGALLUP [facility] 1.2.721.088 [id number] Univers 00:00:00 00:00:00 Anil HEALTH 350.1.13.10 it y of [place] 4.2.7.2.686 Anthony as GUIDO?BLEA [id number] [address] OFFICE [facility] 2022-03-09 2022-03-09 Milo SandyGALLUP INDIAN [facility] 1.2.538.733 [id number] Univers 00:00:00 00:00:00 Destiny [place] 350.1.13.10 ity of [place].2.7.2.[place] [id number] [facility] 059 [facility] 2022-03-06 2022-03-06 Outpatient R [facility]UNIV[facility] [id number] Univers 15:47:00 23:59:00 DESTINY rossiy o f [facility] 2022-03-04 2022-03-04 Refill DirkGALLUP [facility]DIAN [facility] 1.2.840.114 [id number] Univers 00:00:00 00:00:00 Anil HEALTH 350.1.13.10 it y of [place] 4.2.7.2.686 Anthony as GUIDO?BLEA [id number] [address] MEDICAL OFFICE [facility] 2022-03-04 2022-03-04 Orders Doctor BURT 1.2.840.114 [id number] Univers 00:00:00 00:00:00 Only Unassigned, NICHOLAS 350.1.13.10 ity of [place] [facility] 4.2.7.2.686 Anthony as [id number] [address] 2022-03-02 2022-03-02 Outpatient R DU [facility] [id number] Univers 09:20:00 09:58:44 DESTINY dangelo o f [facility] 2022-03-02 2022-03-02 Office DuGALLUP [facility] 1.2.840.114 [id number] Univers 09:20:00 09:58:44 Visit Destiny [place] 350.1.13.10 ity of [place] 4.2.7.2.[place] [id number] [facility] 059 [facility] 2022-02-07 2022-02-07 Nurse Citlaly David 1.2.840.114 [id number] Univers 00:00:00 00:00:00 Triage NICHOLAS 350.1.13.10 it y of [facility] 4.2.7.2.686 Anthony as [id number] [facility] [address] [place] 2022-02-06 2022-02-06 Outpatient R DIRK [facility] [id number] Univers 15:00:00 16:09:26 ANIL ity [facility] 2022-02-06 2022-02-06 Office DirkGALLUP [facility] 1.2.840.114 [id number] Univers 15:00:00 16:09:26 Visit [facility] 350.1.13.10 it y of [place] 4.2.7.2.686 Anthony as GUIDO?BLEA [id number] [facility] 044 [facility] OFFICE [facility] 2022-02-05 2022-02-05 Telephone [facility] 1.2.701.952 [id number] Univers 00:00:00 00:00:00 Shira [facility] 350.1.13.10 ity of [place] 4.2.7.2.686 [place] [id number] [facility] 044 [facility] 2022-01-28 2022-01-28 Telephone [facility] 1.2.477.107 [id number] Univers 00:00:00 00:00:00 Shira HEALTH 350.1.13.10 ity of [place] 4.2.7.2.686 Anthony as GUIDO?BLEA [id number] [address] OFFICE [facility] 2022-01-22 2022-01-22 Sergei DeeGALLUP INDIAN [facility] 1.2.840.114 [id number] Univers 00:00:00 00:00:00 Wondiful A HEALTH 350.1.13.10 ity of [place] 4.2.7.2.686 Anthony as GUIDO?BLEA [id number] [address] 2022-01-14 2022-01-14 Outpatient R DU [facility] [id number] Univers 10:00:00 10:00:00 DESTINY dangeol o f [facility] 2022-01-14 2022-01-14 Orders Doctor CARMEL 1.2.840.114 [id number] Univers 00:00:00 00:00:00 Only Unassigned, NICHOLAS 350.1.13.10 ity of [place] [facility] 4.2.7.2.686 Anthony as [id number] [address] 2022-01-11 2022-01-11 Sergei DeeGALLUP INDIAN [facility] 1.2.840.114 [id number] Univers 00:00:00 00:00:00 Wondiful A HEALTH 350.1.13.10 ity of [place] 4.2.7.2.686 Anthnoy as GUIDO?BLEA [id number] [address] 2021-12-29 2021-12-29 Orders Doctor CARMEL 1.2.840.114 [id number] Univers 00:00:00 00:00:00 Only Unassigned, NICHOLAS 350.1.13.10 ity of [place] [facility] 4.2.7.2.686 Anthony as [id number] [address] 2021-11-17 2021-11-17 Orders Doctor CARMEL 1.2.840.114 [id number] Univers 00:00:00 00:00:00 Only Unassigned, NICHOLAS 350.1.13.10 ity of [place] [facility] 4.2.7.2.686 Anthony as [id number] [address] 2021-11-12 2021-11-12 Milo BranchGALLUP INDIAN [facility] 1.2.742.108 [id number] [id number] Univers 00:00:00 00:00:00 Shira HEALTH 350.1.13.10 ity of [place] 4.2.7.2.686 Anthony as GUIDO?BLEA [id number] [address] OFFICE [facility] 2021-11-11 2021-11-11 Telephone [facility] 1.2.625.965 [id number] Univers 00:00:00 00:00:00 Shira HEALTH 350.1.13.10 ity of [place] 4.2.7.2.686 Anthony as GUIDO?BLEA [id number] [address] OFFICE [facility] 2021-11-06 2021-11-06 Telephone [facility] 1.2.753.228 [id number] Univers 00:00:00 00:00:00 Shira HEALTH 350.1.13.10 ity of [place] 4.2.7.2.686 Anthony as GUIDO?BLEA [id number] [address] 2021-11-03 2021-11-03 Outpatient R [facility]INAUNIV[facility] [id number] Univers 15:40:00 16:24:15 [facility] 2021-11-03 2021-11-03 Office [facility] 1.2.840.114 [id number] Univers 15:40:00 16:24:15 Visit [facility] 350.1.13.10 ity of [place] 4.2.7.2.686 Anthony as GUIDO?BLEA [id number] [address] OFFICE [facility] 2021-11-03 2021-11-03 Public Policy Mediator Lab, Ang - Db [facility] 1.2.840.1 14 [id number] Univers 16:00:00 16:15:00 Visit [facility]enturaprudencioLifeCare [facility] 350.1.13.10 ity of [place] 4.2.7.2.686 Anthony as GUIDO?BLEA [id number] [address] OFFICE [facility] 2021-10-27 2021-10-27 Public Policy Mediator Lab, Ang - Db [facility] 1.2.840.1 14 [id number] Univers 16:30:00 16:45:00 Visit [facility]uraprudencio [facility] 350.1.13.10 ity of [facility] 4.2.7.2.686 Anthony as GUIDO?BLEA [phone] Or michele HENRIQUEZ [address] [place] MEDICAL OFFICE BUILDING 2021-10-27 2021-10-27 Office [facility]aventuraprudencioGALLUP [facility] 1.2.840.114 [id number] Univers 15:20:00 16:26:33 Visit [facility] 350.1.13.10 ity of [facility] 4.2.7.2.686 Anthony as GUIDO?BLEA [id number] Or michele HENRIQUEZ 044 [facility] OFFICE [facility] 2021-10-27 2021-10-27 Outpatient Sean BARBA [facility] [id number] Univers 09:20:00 09:36:44 CHELO antolin [facility] 2021-10-27 2021-10-27 Urgent Chelo Barba [facility] 1.2.840.114 [id number] Univers 09:20:00 09:36:44 Care Rafalmsgerson, [facility] 350.1.13.10 ity of [place] 4.2.7.2.686 Anthony as GUIDO?BLEA [phone] [facility] [address] [facility] OFFICE [facility] 2021-10-18 2021-10-18 Urgent [facility]De[facility] 1.2.840.114 [id number] Univers 11:00:00 11:20:00 Davey HansonUniversity of [facility] 350.1.13.10 ity of [place] 4.2.7.2.686 Anthony as GUIDO?BLEA [id number] [facility] [address] [place] MEDICAL OFFICE [facility] 2021-10-18 2021-10-18 Outpatient R VALENTIN [facility] [id number] Univers 11:00:00 11:00:00 [facility] 2021-10-17 2021-10-17 Sergei GatesGALLUP INDIAN MED[facility] 1.2.840.114 [id number] Univers 00:00:00 00:00:00 [employer] 350.1.13.10 it y of [place] 4.2.7.2.686 Anthony as GUIDO?BLEA [phone] [facility] [address] [place] MEDICAL OFFICE [facility] 2021-09-09 2021-09-09 Refill JaredGALLUP INDIAN [facility]ICAL [facility] 1.2.840.114 [id number] Univers 00:00:00 00:00:00 Zuri A HEALTH 350.1.13.10 i ty of [place] 4.2.7.2.686 Anthony as GUIDO?BLEA [id number] [address] OFFICE [facility] 2021-09-02 2021-09-02 Refill LeilaGALLUP INDIAN MEDICAL [facility] 1.2.840.114 [id number] Univers 00:00:00 00:00:00 Wondiful A HEALTH 350.1.13.10 ity of [place] 4.2.7.2.686 Anthony as GUIDO?BLEA [id number] [address] OFFICE [facility] 2021-08-29 2021-08-29 Outpatient R [facility]EDUNIVERS[facility] [id number] Univers 13:00:00 13:00:00 ZURI ity of [facility] 2021-08-27 2021-08-27 Urgent Karmen Gates [facility] 1.2.840.11 4 [id number] Univers 13:00:00 13:20:00 Care Jude Desir [facility] 350.1.13.10 ity of [facility] 4.2.7.2.686 Anthony as GUIDO?BLEA [id number] [address] OFFICE [facility] 2021-08-27 2021-08-27 Outpatient R THANG [facility] [id number] Univers 13:00:00 13:00:00 JUDE dangelo o f [facility] 2021-08-26 2021-08-26 Telephone [facility]Gall[facility] 1.2.833.858 [id number] Univers 00:00:00 00:00:00 Zuri A HEALTH 350.1.13.10 i ty of [place] 4.2.7.2.686 Anthony as GUIDO?BLEA [id number] [address] OFFICE [facility] 2021-08-26 2021-08-26 Refill JaredGALLUP [facility]DI[facility] 1.2.840.114 [id number] Univers 00:00:00 00:00:00 Zuri A HEALTH 350.1.13.10 i ty of [place] 4.2.7.2.686 Anthony as GUIDO?BLEA [id number] [address] OFFICE [facility] 2021-08-22 2021-08-22 Outpatient R [facility]INAUNIVERS[facility] [id number] Univers 16:00:00 16:00:00 [facility] 2021-08-22 2021-08-22 Outpatient R [facility]ENTERPrudencioUNIVERSITY [facility] [id number] Univers 15:00:00 15:00:00 [facility] 2021-08-22 2021-08-22 [facility] 1.2.840.114 [id number] Univers 00:00:00 00:00:00 [place] HEALTH 350.1.13.10 ity of [facility] 4.2.7.2.686 Anthony as GUIDO?BLEA [id number] [address] 2021-08-14 2021-08-14 Outpatient R J[facility]EDUNIVERSITY [facility] [id number] Univers 13:00:00 15:12:18 ZUIRTIAN dangelo [facility] 2021-08-14 2021-08-14 Office JaredGALLUP [facility]DI[facility] 1.2.840.114 [id number] Univers 13:00:00 15:12:18 Visit Zuri A HEALTH 350.1.13.10 i ty of [place] 4.2.7.2.686 Anthony as GUIDO?BLEA [id number] [address] OFFICE [facility] 2021-08-13 2021-08-13 Telephone [facility] 1.2.840.114 [id number] Univers 00:00:00 00:00:00 Nik HEALTH 350.1.13.10 it y of Max[place] 4.2.7.2.686 Anthony as GUIDO?BLEA [id number] [address] OFFICE [facility] 2021-08-12 2021-08-12 Telephone [facility] 1.2.840.114 [id number] Univers 00:00:00 00:00:00 [facility] 350.1.13.10 it y of Edward [place] 4.2.7.2.686 Anthony as GUIDO?BLEA [id number] Or michele HENRIQUEZ [address] [place] [address] OFFICE [facility] 2021-08-07 2021-08-07 Telephone [facility] 1.2.840.114 [id number] Univers 00:00:00 00:00:00 Nik [facility] 350.1.13.10 it y of [place] 4.2.7.2.686 Anthony as GUIDO?BLEA [id number] Or michele HENRIQUEZ [address] [place] [address] MEDICAL OFFICE [facility] 2021-08-01 2021-08-01 Telephone [facility] 1.2.840.114 [id number] Univers 00:00:00 00:00:00 Nik [facility] 350.1.13.10 it y of [place] 4.2.7.2.686 Anthony as GUIDO?BLEA [id number] Or michele HENRIQUEZ [address] [place] [address] OFFICE [facility] 2021-07-04 2021-07-04 Public Policy Mediator Lab, Critical access hospital 1.2.840.1 14 [id number] Univers 16:45:00 17:00:00 Visit Nik Vargas toro [facility] 350.1.13 .10 ity of [place] 4.2.7.2.686 Anthony as GUIDO?BLEA [phone] Or michele HENRIQUEZ [address] [facility] OFFICE [facility] 2021-07-04 2021-07-04 Outpatient R SAM [facility] [id number] Univers 16:45:00 16:45:00 NIK itprudencio [facility] 2021-07-04 2021-07-04 Office [facility] 1.2.840.114 [id number] Univers 16:15:00 16:30:00 Visit [facility] 350.1.13.10 it y of [place] 4.2.7.2.686 Anthony as GUIDO?BLEA [id number] Or michele HENRIQUEZ [address] [place] [address] OFFICE [facility] 2021-07-04 2021-07-04 Outpatient R SAM [facility] [id number] Univers 16:15:00 16:15:00 NIK ity [facility] 2021-06-23 2021-06-23 Telephone [facility], [facility] 1.2.190.085 [id number] Univers 00:00:00 00:00:00 Zuri A HEALTH 350.1.13.10 i ty of [place] 4.2.7.2.686 Anthony as GUIDO?BLEA [id number] [address] OFFICE [facility] 2021-06-18 2021-06-18 Telephone Jared, [facility] 1.2.255.922 [id number] Univers 00:00:00 00:00:00 Zuri A HEALTH 350.1.13.10 i ty of [facility] 4.2.7.2.686 Anthony as GUIDO?BLEA [id number] [address] 2021-05-28 2021-05-28 Telephone [facility], [facility] [id number] Univers 00:00:00 00:00:00 Qiangnanette [place] 350.1.13.10 ity [place] [phone] [address] 2021-05-27 2021-05-27 Telephone Du, [facility] [id number] Univers 00:00:00 00:00:00 Qiangnanette [place] 350.1.13.10 ity [place] [phone] [address] 2021-05-20 2021-05-20 Orders Doctor CARMEL 1.2.840.114 [id number] Univers 00:00:00 00:00:00 Only Unassigned, NICHOLAS 350.1.13.10 ity of [place] [facility] 4.2.7.2.686 Anthony as [phone] [address] 2021-05-19 2021-05-19 Refill Jared, [facility] 1.2.840.114 [id number] Univers 00:00:00 00:00:00 Zuri A HEALTH 350.1.13.10 i ty of [place] 4.2.7.2.686 Anthony as GUIDO?BLEA [id number] [address] OFFICE [facility] 2021-05-19 2021-05-19 [facility]phone [facility] [id number] Univers 00:00:00 00:00:00 Destiny [place] 350.1.13.10 [place]y [place] [phone] Or michele [facility] 0[address] [facility] 2021-05-16 2021-05-16 Refill [facility] 1.2.840.114 [id number] Univers 00:00:00 00:00:00 Zuri A HEALTH 350.1.13.10 i ty of [place] 4.2.7.2.686 Anthony as GUIDO?BLEA [phone] [address] OFFICE [facility] 2021-05-08 2021-05-08 Refill [facility] 1.2.840.114 [id number] Univers 00:00:00 00:00:00 Zuri A HEALTH 350.1.13.10 i ty of [place] 4.2.7.2.686 Anthony as GUIDO?BLEA [id number] [address] OFFICE [facility] 2021-04-30 2021-04-30 Outpatient [facility] [id number] Univers 14:00:00 14:46:58 ZURI ity of [facility] 2021-04-30 2021-04-30 Office [facility] 1.2.840.114 [id number] Univers 14:00:00 14:46:58 Visit Zuri A HEALTH 350.1.13.10 i ty of [place] 4.2.7.2.686 Anthony as GUIDO?BLEA [phone] [address] OFFICE [facility] [facility] 2021-04-30 2021-04-30 Telephone [facility] 1.2.840.114 [id number] Univers 00:00:00 00:00:00 Wondiful A HEALTH 350.1.13.10 ity of [place] 4.2.7.2.686 Anthony as GUIDO?BLEA [phone] Or michele GODOY[address] OFFICE [facility] 2021-03-13 2021-03-13 Telephone [facility] 1..840.114 [id number] Univers 00:00:00 00:00:00 Wondiful A HEALTH 350.1.13.10 ity of [place] 4.2.7.2.686 Anthony as GUIDO?BLEA [phone] [address] OFFICE [facility] 2021-03-04 2021-03-04 [facility] [id number] Univers 14:00:00 14:58:03 WONDIFUL ity o f [facility] 2021-03-04 2021-03-04 Office Mariela Edwards [facility] ..840.114 [id number] Univers 14:00:00 14:58:03 Visit Leila Wondiful A HEALTH 350.1.13.1 0 ity of [place] 4.2.7.2.686 Anthony as GUIDO?BLEA [id number] [address] OFFICE [facility] 2021-03-04 2021-03-04 [facility] [id number] Univers 14:00:00 14:58:03 WONDIFUL ity o f [facility] 2021-03-04 2021-03-04 [facility] [id number] Univers 14:00:00 14:58:03 WONDIFUL ity o f [facility] 2021-02-26 2021-02-26 Telephone [facility] ..840.114 [id number] Univers 00:00:00 00:00:00 Wondiful A HEALTH 350.1.13.10 ity of [place] 4.2.7.2.686 Anthony as GUIDO?BLEA [phone] [address] OFFICE [facility] 2021-02-26 2021-02-26 Telephone [facility] 1.2.840.114 [id number] Univers 00:00:00 00:00:00 Wondiful A HEALTH 350.1.13.10 ity of [place] 4.2.7.2.686 Anthony as GUIDO?BLEA [phone] Or michele HENRIQUEZ [address] [facility] 2021-02-18 2021-02-18 Tele[address] [facility] 1.2.841.273 [id number] Univers 00:00:00 00:00:00 Qiangjun [place] 350.1.13.10 ity of [facility] [place].2.[place] [phone] Or dictx NAL 059 [facility] 2021-02-13 2021-02-13 Telephone [facility] 1.2.188.083 [id number] Univers 00:00:00 00:00:00 Qiangjun [place] 350.1.13.10 ity of [facility] 4.2.7.2.[place] [phone] [facility] NAL 9 [facility] 2021-02-13 2021-02-13 Orders Doctor CARMEL 1.2.840.114 [id number] Univers 00:00:00 00:00:00 Only Unassigned, NICHOLAS 350.1.13.10 [facility] 4.2.7.2.686 Anthony as [phone] [address] 2021-02-10 2021-02-10 Telephone [facility] 1.2.039.619 [id number] Univers 00:00:00 00:00:00 Qiajaskaranjun [place] 350.1.13.10 ity of [facility] 4.[place].2.[place] [phone] Or dic[address] 2021-02-10 2021-02-10 [facility] 1.2.763.436 [id number] Univers 00:00:00 00:00:00 Qiangjun [place] 350.1.13.10 ity of [facility] 4.2.7.2.[place] [phone] Or dicramiro NAL 9 [facility] 2021-02-04 2021-02-04 Telephone [facility] 1.2.736.623 [id number] Univers 00:00:00 00:00:00 Qiangjun [place] 350.1.13.10 ity of [place] 4.2.7.2.[place] [phone] Or dical NAL 059 [facility] 2021-02-03 2021-02-03 Outpatient R DU, [facility] [id number] Univers 13:48:03 23:59:00 DESTINY ity o f [facility] 2021-02-03 2021-02-03 Outpatient R DU, [facility] [id number] Univers 13:48:03 23:59:00 QIASINCERE ity o [facility] 2021-02-03 2021-02-03 Outpatient R DU, [facility] [id number] Univers 13:48:03 23:59:00 DESTINY rossiy o [facility] 2021-02-03 2021-02-03 Hospital Du, [facility] 1.2.840.114 [id number] Univers 13:48:03 23:59:00 Encounter Destiny ESPAÑA 350.1.13.10 ity of [place].2.[place] [phone] Or dical NAL 843 [facility] 2021-01-13 2021-01-13 Outpatient R DU, [facility] [id number] Univers 15:20:00 16:08:31 QIASINCERE ity o [facility] 2021-01-13 2021-01-13 Outpatient R DU, [facility] [id number] Univers 15:20:00 16:08:31 DESTINY ity o [facility] 2021-01-13 2021-01-13 Outpatient R DU, [facility] [id number] Univers 15:20:00 16:08:31 DESTINY ity o [facility] 2021-01-13 2021-01-13 Office [facility] 1.2.840.114 [id number] Univers 15:20:00 16:08:31 Visit Destiny ESPAÑA 350.1.13.10 ity of [facility] 4.2.7.2.[place] [phone] Or dical NAL 059 [facility] 2021-01-13 2021-01-13 Office [facility] 1.2.840.114 [id number] Univers 15:10:05 16:08:31 Visit Destiny ESPAÑA 350.1.13.10 ity of [facility] 4.2.7.2.[place] [phone] [place] [id number] [facility] 2021-01-07 2021-01-07 Milo [facility] 1.2.732.996 [id number] Univers 00:00:00 00:00:00 Destiny ESPAÑA 350.1.13.10 ity of [facility] 4.2.7.2.[place] [phone] [address] 2021-01-06 2021-01-06 Orders Doctor CARMEL 1.2.840.114 [id number] Univers 00:00:00 00:00:00 Only Unassigned, NICHOLAS 350.1.13.10 ity of [place] [facility] 4.2.7.2.686 Anthony as [phone] [address] 2020-12-30 2020-12-30 Refill [facility] 1.2.840.114 [id number] Univers 00:00:00 00:00:00 Wondiful A HEALTH 350.1.13.10 ity of [place] 4.2.7.2.686 Anthony as GUIDO?BLEA [phone] [facility] GODOY 0[address] [facility] OFFICE [facility] 2020-12-24 2020-12-24 Public Policy Mediator Lab, Ang - Db [facility] 1.2.840.1 14 [id number] Univers 15:16:07 15:31:07 Visit Moreno Dee A HEALTH 350.1.13.1 0 [facility] 4.2.7.2.686 Anthony as GUIDO?BLEA [phone] Or michele HENRIQUEZ [address] [facility] OFFICE [facility] 2020-12-24 2020-12-24 Outpatient Sean DEE [facility] [id number] Univers 15:30:00 15:30:00 WONDIFUL ity o f [facility] 2020-12-24 2020-12-24 Outpatient Sean DEE [facility] [id number] Univers 15:30:00 15:25:12 WONDIFUL ity o f [facility] 2020-12-24 2020-12-24 Telephone [place] 1.2.840.114 [id number] Univers 00:00:00 00:00:00 Wondiful A HEALTH 350.1.13.10 ity of [place] 4.2.7.2.686 Anthony as GUIDO?BLEA [phone] [address] OFFICE [facility] 2020-12-24 2020-12-24 Telephone [place] 1.2.840.114 [id number] Univers 00:00:00 00:00:00 Wondiful A HEALTH 350.1.13.10 ity of [place] 4.2.7.2.686 Anthony as GUIDO?BLEA [phone] [address] OFFICE [facility] 2020-12-19 2020-12-19 Telephone [place] 1.2.840.114 [id number] Univers 00:00:00 00:00:00 Wondiful A HEALTH 350.1.13.10 ity of [place] 4.2.7.2.686 Anthony as GUIDO?BLEA [phone] [address] 2020-12-19 2020-12-19 Telephone [place] 1.2.840.114 [id number] Univers 00:00:00 00:00:00 Wondiful A HEALTH 350.1.13.10 ity of [place] 4.2.7.2.686 Anthony as GUIDO?BLEA [phone] [address] OFFICE [facility] 2020-12-12 2020-12-12 Orders Doctor CARMEL 1.2.840.114 [id number] Univers 00:00:00 00:00:00 Only Unassigned, NICHOLAS 350.1.13.10 ity of [place] [facility] 4.2.7.2.686 Anthony as [phone] [address] 2020-12-10 2020-12-10 Telephone [place] 1.2.840.114 [id number] Univers 00:00:00 00:00:00 Wondiful A HEALTH 350.1.13.10 ity of [place] 4.2.7.2.686 Anthony as GUIDO?BLEA [phone] [place] HEN[facility]Z 044 [facility] OFFICE [facility] 2020 2020 Public Policy Mediator Lab, Ang - Db [facility] 1.2.840.1 14 [id number] Univers 16:05:47 16:20:47 Visit Leila Pat HEALTH 350.1.13.10 ity of [place] 4.2.7.2.686 Anthony as GUIDO?BLEA [phone] [facility] WALT [address] [facility] OFFICE BUILDING 2020 2020 Outpatient R LEILA [facility] [id number] Univers 16:15:00 16:15:00 PAT ity of [facility] 2020 2020 Outpatient R LEILA [facility] [id number] Univers 15:30:00 16:03:54 WONDIFUL ity o f [facility] 2020 2020 Outpatient R LEILA [facility] [id number] Univers 15:30:00 16:03:54 WONDIFUL ity o f [facility] 2020 2020 Office [facility] 1.2.840.114 [id number] Univers 15:27:26 16:03:54 Visit Wondiful A HEALTH 350.1.13.10 ity of [place] 4.2.7.2.686 Anthony as GUIDO?BLEA [id number] [address] OFFICE [facility] 2020-11-26 2020-11-26 Refelliot [facility] 1.2.840.114 [id number] Univers 00:00:00 00:00:00 Wondiful A Health 350.1.13.10 ity of [place] 4.2.7.2.686 Anthony as Professio [phone] [address] Office [facility] 2020-11-25 2020-11-25 Refelliot [facility] 1.2.840.114 [id number] Univers 00:00:00 00:00:00 Wondiful A Health 350.1.13.10 ity of [place] 4.2.7.2.686 Anthony as Professio [phone] Or michele byrne [address] [place] [address] Office Building One 2020-11-14 2020-11-14 Telephone Leila [facility] 1.2.840.114 [id number] Univers 00:00:00 00:00:00 Wondiful A Health 350.1.13.10 ity of [place] 4.2.7.2.686 Anthony as Guido?Blea [phone] Or michele henriquez [address] [place] [address] Office Building 2020-10-09 2020-10-09 Office Le, Phi-Maria Luisa [facility] 1.2.840.114 [id number] Univers 14:00:00 16:00:00 Visit Patti [facility] AT 350.1.13.10 ity of [place] 4.2.7.2.[place] [phone] [address] 2020-10-09 2020-10-09 Office Le, [facility] 1.2.840.114 [id number] Univers 13:55:59 15:55:59 Visit Patti [facility] AT 350.1.13.10 ity of [place] 4.2.7.2.686 [place] [phone] [address] 2020-10-09 2020-10-09 Outpatient R LE, PHI-MARIA LUISA [facility] [id number] Univers 14:00:00 14:00:00 ity [facility] 2020-10-09 2020-10-09 Outpatient R LE, [facility] [id number] Univers 14:00:00 14:00:00 ity [facility] 2020-10-09 2020-10-09 Outpatient R LE, [facility] [id number] Univers 14:00:00 14:00:00 ity [facility] 2020-10-09 2020-10-09 Outpatient R LE, [facility] [id number] Univers 14:00:00 14:00:00 ity [facility] 2020-10-09 2020-10-09 Letter Doctor BURT 1.2.840.114 [id number] Univers 00:00:00 00:00:00 (Out) Unassigned, NICHOLAS 350.1.13.10 ity of [place] [facility] 4.2.7.2.686 Anthony as [phone] [facility] [address] 2020-10-07 2020-10-07 Telephone Leila [facility] 1.2.840.114 [id number] Univers 00:00:00 00:00:00 Wondiful A Health 350.1.13.10 ity of [place] 4.2.7.2.686 Anthony as Guido?Blea [phone] [address] Medical Office Building 2020-10-02 2020-10-02 Telephone Wai Raymond [facility] 1.2.840.114 [id number] Univers 00:00:00 00:00:00 [facility] at 350.1.13.10 ity of [place] 4[place]2.7.2.[place] [phone] [facility] [address] 2020-09-13 2020-09-13 Outpatient R LEILA [facility] [id number] Univers 15:45:00 15:45:00 WONDIFUL ity o f [facility] 2020-08-12 2020-08-12 Outpatient R LEILA [facility] [id number] Univers 10:45:00 10:45:00 WONDIFUL ity o f [facility] 2020-04-11 2020-04-11 Outpatient Sean DEE [facility] [id number] Univers 14:30:00 14:30:00 WONDIFUL ity o f [facility] 2020-04-04 2020-04-04 Outpatient Sean DEE [facility] [id number] Univers 00:00:00 00:00:00 WONDIFUL ity o f [facility] 2020-03-25 2020-03-25 Outpatient Sean DEE [facility] [id number] Univers 17:00:00 17:00:00 WONDIFUL ity o f [facility] 2020-02-23 2020-02-23 Outpatient R [facility] [id number] Univers 14:20:00 14:20:00 ity of [facility] 2020-02-19 2020-02-19 Outpatient R LEILA [facility] [id number] Univers 14:30:00 14:30:00 WONDIFUL ity o f [facility] 2020-01-29 2020-01-29 Outpatient R LEILA [facility] [id number] Univers 15:00:00 15:00:00 WONDIFUL ity o f [facility] 2019-11-13 2019-11-13 Telephone [facility] 1.2.840.114 [id number] 00:00:00 00:00:00 Che[facility] 350.1.13.10 CARE 4.2.7.2.686 PAVILLION [id number] 2019-11-03 2019-11-03 Outpatient Sean AVINA [facility] [id number] Univers 11:00:00 11:00:00 [facility] 2019-11-03 2019-11-03 Outpatient Sean AVINA [facility] [id number] Univers 09:45:00 09:45:00 [facility] 2019-10-17 2019-10-17 Outpatient R SHERLY [facility] [id number] Univers 15:00:00 15:00:00 CHE[facility] 2019-09-27 2019-09-27 Outpatient R SHERLY [facility] [id number] Univers 09:45:49 23:59:00 [facility] 2019-09-27 2019-09-27 Outpatient R SHERLY [facility] [id number] Univers 08:00:00 08:00:00 CHE[facility] 2019-06-27 2019-06-27 Outpatient R MADALYNSHERRIE [facility] [id number] Univers 13:30:00 13:30:00 [facility] 2019-06-13 2019-06-13 Outpatient R GIANNI [facility] [id number] Univers 16:00:00 16:00:00 [facility] 2019-05-23 2019-05-23 Outpatient [facility] [id number] Univers 13:00:00 13:00:00 JESUS dangelo [facility] 2019-04-17 2019-04-17 Outpatient R [facility] [id number] Univers 16:00:00 16:00:00 [facility] 2019-04-05 2019-04-05 Outpatient R DU, [facility] [id number] Univers 15:00:00 15:00:00 DESTINY dangelo o buck [facility] Results Test Description Test Time Test Comments Results Result Comments Source TROPONIN I 2022-07-13 00:20:13 Test Item Value Reference Range Interpretation Comme nts TROPONIN I (test code = 7752577947) 0.057 ng/mL <=0.034 H CLAUDIA (test code = CLAUDIA) Reference (Normal) Range (defined by the 99th percentile reference limit): <= 0.034 ng/mL Note: Cardiac troponin begins to rise 3-4 hours after the onset of ischemia. Repeat in 4-6 hours if the sample was drawn within 3-4 hours of the onset of the symptom and found normal. Diagnosis of myocardial injury is made with acute changes in cTn concentrations with at least one serial sample above the 99th percentile upper reference limit (URL), taken together with the patient's clinical presentation. Biotin has been reported to cause a negative bias, interpret results relative to patient's use of biotin. Lab Interpretation (test code = Abnormal 58391-3) [facility] (for use with Heparin Infusion)2022-07-13 00:01:50 Test Item Value Reference Range Interpretation Comments APTT Patient (test code 42 See_Comment H [Au tomated message] = 3173-2) The system [employer] generated this result transmitted ref erence range: 26 - 36 Seconds. The reference range was not used to int erpret this result as normal/abnormal . Lab Interpretation (test Abnormal code = 92074-2) [facility] CampusTROPONIN [id number] 16:15:56 Test Item Value Reference Range Interpretation Comments TROPONIN I (test code = 0.087 ng/mL <=0.034 H [id number]) CLAUDIA (test code = CLAUDIA) Reference (Normal) Range (defined by the 99th percentile reference limit): <= 0.034 ng/mL Note: Cardiac troponin begins to rise 3-4 hours after the onset of ischemia. Repeat in 4-6 hours if the sample was drawn within 3-4 hours of the onset of the symptom and found normal. Diagnosis of myocardial injury is made with acute changes in cTn concentrations with at least one serial sample above the 99th percentile upper reference limit (URL), taken together with the patient's clinical presentation. Biotin has been reported to cause a negative bias, interpret results relative to patient's use of biotin. Lab Interpretation Abnormal (test code = 99638-6) [facility]PO[facility] GLUCOSE (AUTOMATED)2022-07-12 13:46:54 Test Item Value Reference Range Interpretation Comments POCT GLU (test code = 1922715603) 100 mg/dL 70-110 Lab Interpretation (test code = Normal 35665-2) [facility] CampusTroponin [id number] 03:20:51 Test Item Value Reference Range Interpretation Comments TROPONIN I (test code = 0.081 ng/mL <=0.034 H [id number]) CLAUDIA (test code = CLAUDIA) Reference (Normal) Range (defined by the 99th percentile reference limit): <= 0.034 ng/mL Note: Cardiac troponin begins to rise 3-4 hours after the onset of ischemia. Repeat in 4-6 hours if the sample was drawn within 3-4 hours of the onset of the symptom and found normal. Diagnosis of myocardial injury is made with acute changes in cTn concentrations with at least one serial sample above the 99th percentile upper reference limit (URL), taken together with the patient's clinical presentation. Biotin has been reported to cause a negative bias, interpret results relative to patient's use of biotin. Lab Interpretation Abnormal (test code = 94744-8) [facility] CampusProthrombin Time / [id number] 03:04:49 Test Item Value Reference Range Interpretation Comments PROTIME PATIENT (test 12.0 See_Comment [Auto mated message] code = 5964-2) The system [employer] generated this result transmitted ref erence range: 10.1 - 1 2.6 Seconds. The re ference range was not u sed to interpret this result as normal/abnor mal. INR (test code = 6301-6) 1.1 Nor mal INR <1.1; Warfarin Therap eutic range 2.0 to 3. 0 or 2.5 to 3.5, dep ending upon the indica tions. Lab Interpretation (test Normal code = 04120-2) [facility]PTT2023-06-04 03:04:49 Test Item Value Reference Range Interpretation Comments APTT Patient (test code = 34 See_Comment [ Automated message] 3173-2) The system [employer] generated this result transmitted ref erence range: 26 - 36 Seconds. The re ference range was not u sed to interpret this result as normal/abnor mal. Lab Interpretation (test Normal code = 79465-9) [facility] CampusThyroid Stimulating Hormone (TSH)2022-07-12 01:31:26 Test Item Value Reference Range Interpretation Comments TSH (test code = 1.59 See_Comment Biotin has been [id number]) reported to cau se a negative bias, interpret resul ts relative to jimy hawk's use of biotin. [Automated mess age] The system [employer] generated this result transmitted ref erence range: 0.45 - 4 .70 mIU/L. The refe rence range was not u sed to interpret this result as normal/abnor mal. Lab Interpretation (test Normal code = 24228-3) [facility] CampusGLYCOSYLATED HEMOGLOBIN (A1C)2022-07-12 01:17:12 Test Item Value Reference Range Interpretation Comments HGB A1C (test code = 5.3 % 4.0-5.7 4548-4) CLAUDIA (test code = CLAUDIA) Reference RangesNormal: <5.7%Prediabetes: 5.7 - 6.4%Diabetes: > 6.5% Lab Interpretation (test Normal code = 32386-4) [facility] CampusTROPONIN [id number] 23:31:20 Test Item Value Reference Range Interpretation Comments TROPONIN I (test code = 0.086 ng/mL <=0.034 H [id number]) CLAUDIA (test code = CLAUDIA) Reference (Normal) Range (defined by the 99th percentile reference limit): <= 0.034 ng/mL Note: Cardiac troponin begins to rise 3-4 hours after the onset of ischemia. Repeat in 4-6 hours if the sample was drawn within 3-4 hours of the onset of the symptom and found normal. Diagnosis of myocardial injury is made with acute changes in cTn concentrations with at least one serial sample above the 99th percentile upper reference limit (URL), taken together with the patient's clinical presentation. Biotin has been reported to cause a negative bias, interpret results relative to patient's use of biotin. Lab Interpretation Abnormal (test code = 40951-5) [facility] CampusTROPONIN [id number] 20:07:32 Test Item Value Reference Range Interpretation Comments TROPONIN I (test code = 0.072 ng/mL <=0.034 H [id number]) CLAUDIA (test code = CLAUDIA) Reference (Normal) Range (defined by the 99th percentile reference limit): <= 0.034 ng/mL Note: Cardiac troponin begins to rise 3-4 hours after the onset of ischemia. Repeat in 4-6 hours if the sample was drawn within 3-4 hours of the onset of the symptom and found normal. Diagnosis of myocardial injury is made with acute changes in cTn concentrations with at least one serial sample above the 99th percentile upper reference limit (URL), taken together with the patient's clinical presentation. Biotin has been reported to cause a negative bias, interpret results relative to patient's use of biotin. Lab Interpretation Abnormal (test code = 27843-1) [facility] CampusCOM. METABOLIC PANEL (20434)2022-07-11 19:57:13 Test Item Value Reference Range Interpretation Comments NA (test code = 139 mmol/L 135-145 6601452178) K (test code = 4.2 mmol/L 3.5-5.0 5396966650) CL (test code = 102 mmol/L 98-108 5656500575) CO2 TOTAL (test code = 28 mmol/L 23-31 4383810591) AGAP (test code = 9 2-16 7310732018) BUN (test code = 23 mg/dL 7-23 2834688211) GLUCOSE (test code = 104 mg/dL 70-110 0542179126) CREATININE (test code = 0.99 mg/dL 0.60-1.25 3655332616) TOTAL BILI (test code = 0.9 mg/dL 0.1-1.4 1044787936) CALCIUM (test code = 9.0 mg/dL 8.6-10.6 7273694421) T PROTEIN (test code = 6.7 g/dL 6.3-8.2 3282403319) ALBUMIN (test code = 4.3 g/dL 3.5-5.0 4459587209) ALK PHOS (test code = 58 U/L 34-122 1185349301) ALTv (test code = 22 U/L 5-50 1742-6) AST(SGOT) (test code = 43 U/L 13-40 H 2441878884) eGFR (test code = 74.5 mL/min/1.73m2 4000251724) CLAUDIA (test code = CLAUDIA) Association of Glomerular Filtration Rate (GFR) and Staging of Kidney Disease* + --+ --+ ------+| GFR (mL/min/1.73 m2) ?| With Kidney Damage ?| ?Without Kidney Damage+ --------+ --------+ +| ?>90 ?| ?Stage one ?| ? Normal ?+ ---+ ---+ -------+| ?60-89 ?| ?Stage two ?| ? Decreased GFR ? + --+ --+ ------+| ?30-59 ?| ?Stage three ?| ? Stage three ? + --+ --+ ------+| ?15-29 ?| ?Stage four ? | ? Stage four ?+ ---+ ---+ -------+| ?<15 (or dialysis) ? ?| ?Stage five ? | ? Stage five ?+ ---+ ---+ -------+ *Each stage assumes the associated GFR level has been in effect for at least three months. ?Stages 1 to 5, with or without kidney disease, indicate chronic kidney disease. Notes: Determination of stages one and two (with eGFR >59mL/min/1.73 m2) requires estimation of kidney damage for at least three months as defined by structural or functional abnormalities of the kidney, manifested by either:Pathological abnormalities or Markers of kidney damage (including abnormalities in the composition of the blood or urine or abnormalities in imaging tests). Lab Interpretation Abnormal (test code = 69594-9) [facility] 19:57:13 Test Item Value Reference Range Interpretation Comments LIPASE (test code = 6337156244) 91 U/L 0-220 Lab Interpretation (test code = Normal 46294-8) [facility] WITH [id number] 19:42:51 Test Item Value Reference Range Interpretation Comments WBC (test code = 4.08 See_Comment L [Automated 6690-2) message] The sy stem which generated this result transmitted reference range : 4.20 - 10.70 10*3/?L. The reference range was not used to interpret this result as normal/abnormal . RBC (test code = 4.75 See_Comment [Automated 789-8) message] The sy stem which generated this result transmitted reference range : 4.26 - 5.52 10*6/?L. The reference range was not used to interpret this result as normal/abnormal . HGB (test code = 14.4 g/dL 12.2-16.4 718-7) HCT (test code = 42.3 % 38.4-49.3 4544-3) MCV (test code = 89.1 fL 81.7-95.6 787-2) MCH (test code = 30.3 pg 26.1-32.7 785-6) MCHC (test code = 34.0 g/dL 31.2-35.0 786-4) RDW-SD (test code = 41.6 fL 38.5-51.6 93812-5) RDW-CV (test code = 12.7 % 12.1-15.4 788-0) PLT (test code = 106 See_Comment L [Automated 777-3) message] The sy stem which generated this result transmitted reference range : 150 - 328 10*3/ ?L. The reference r shen was not used to interpret this result as normal/abnormal . MPV (test code = 10.9 fL 9.8-13.0 77618-1) NRBC/100 WBC (test 0.0 See_Comment [Automat ed code = 9619906146) message] The system which generated this result transmitted reference range : 0.0 - 10.0 /100 WBCs. The refer ence range was not u sed to interpret th is result as normal/abnormal . NRBC x10^3 (test code See_Comment [Auto mated = 8974623310) message] The s ystem which generated this result transmitted reference range : 10*3/?L. The reference range was not used to interpret this result as normal/abnormal . GRAN MAT (NEUT) % 74.1 % (test code = 770-8) IMM GRAN % (test code 0.20 % = 3688978495) LYMPH % (test code = 15.4 % 736-9) MONO % (test code = 9.1 % 5905-5) EOS % (test code = 1.0 % 713-8) BASO % (test code = 0.2 % 706-2) GRAN MAT x10^3(ANC) 3.02 10*3/uL 1.99-6.95 (test code = 5128907541) IMM GRAN x10^3 (test 0.00-0.06 code = 1819135227) LYMPH x10^3 (test code 0.63 10*3/uL 1.09-3.23 L = 731-0) MONO x10^3 (test code 0.37 10*3/uL 0.36-1.02 = 742-7) EOS x10^3 (test code = 0.04 10*3/uL 0.06-0.53 L 711-2) BASO x10^3 (test code 0.01-0.09 = 704-7) Lab Interpretation Abnormal (test code = 21228-1) [facility] URINALYSIS W SPECIFIC [id number] 16:32:00 Test Item Value Reference Range Interpretation Comments POCT U SP GRAV (test code = 1.015 mg/dl 1.005-1.025 3255) POCT PH U (test code = 3254) 5 mg/dl 5-8 POCT U LEUK EST (test code = Negative Negative - Negative 3263) POCT U NIT (test code = 3262) Negative Negative - Negative POCT U PROT (test code = Negative Negative - Negative 3259) POCT U GLU (test code = 3256) Normal Negative - Negative POCT U KETONE (test code = Small Negative - Negative 3258) POCT U UROBILI (test code = Normal 0.2-1 3260) POCT U BILI (test code = Negative Negative - Negative 3261) POCT U BLD (test code = 3257) Negative Negative - Negative POCT U COLOR (test code = 3266) POCT U APPEAR (test code = 3267) Lab Interpretation (test code Normal = 42982-1) [facility] URINALYSIS W SPECIFIC [id number] 16:32:00 Test Item Value Reference Range Interpretation Comments POCT U SP GRAV (test code = 1.015 mg/dl 1.005-1.025 3255) POCT PH U (test code = 3254) 5 mg/dl 5-8 POCT U LEUK EST (test code = Negative Negative - Negative 3263) POCT U NIT (test code = 3262) Negative Negative - Negative POCT U PROT (test code = Negative Negative - Negative 3259) POCT U GLU (test code = 3256) Normal Negative - Negative POCT U KETONE (test code = Small Negative - Negative 3258) POCT U UROBILI (test code = Normal 0.2-1 3260) POCT U BILI (test code = Negative Negative - Negative 3261) POCT U BLD (test code = 3257) Negative Negative - Negative POCT U COLOR (test code = 3266) POCT U APPEAR (test code = 3267) Lab Interpretation (test code Normal = 87332-5) [facility] GLUCOSE (AUTOMATED)2022-05-02 13:41:42 Test Item Value Reference Range Interpretation Comments POCT GLU (test code = 1058768675) 96 mg/dL 70-110 Lab Interpretation (test code = Normal 61516-0) [facility] GLUCOSE (AUTOMATED)2022-05-02 13:41:42 Test Item Value Reference Range Interpretation Comments POCT GLU (test code = 0285889175) 96 mg/dL 70-110 Lab Interpretation (test code = Normal 45009-4) [facility] GLUCOSE (AUTOMATED)2022-05-02 13:41:42 Test Item Value Reference Range Interpretation Comments POCT GLU (test code = 1165317790) 96 mg/dL 70-110 Lab Interpretation (test code = Normal 88786-2) [facility] WITH [id number] 05:21:51 Test Item Value Reference Range Interpretation Comments WBC (test code = See_Comment L [Automated 6690-2) message] The sy stem which generated this result transmitted reference range : 4.20 - 10.70 10*3/?L. The reference range was not used to interpret this result as normal/abnormal . RBC (test code = See_Comment [Automated 789-8) message] The sy stem which generated this result transmitted reference range : 4.26 - 5.52 10*6/?L. The reference range was not used to interpret this result as normal/abnormal . HGB (test code = 15.0 g/dL 12.2-16.4 718-7) HCT (test code = 45.3 % 38.4-49.3 4544-3) MCV (test code = 94.0 fL 81.7-95.6 787-2) MCH (test code = 31.1 pg 26.1-32.7 785-6) MCHC (test code = 33.1 g/dL 31.2-35 786-4) RDW-SD (test code = 45.1 fL 38.5-51.6 59601-3) RDW-CV (test code = 13.3 % 12.1-15.4 788-0) PLT (test code = See_Comment L [Automated 777-3) message] The sy stem which generated this result transmitted reference range : 150 - 328 10*3/ ?L. The reference r shen was not used to interpret this result as normal/abnormal . MPV (test code = 12.4 fL 9.8-13 26920-7) NRBC/100 WBC (test See_Comment [Automat ed code = 9179503965) message] The system which generated this result transmitted reference range : 0.0 - 10.0 /100 WBCs. The refer ence range was not u sed to interpret th is result as normal/abnormal . NRBC x10^3 (test code See_Comment [Auto mated = 6308212824) message] The s ystem which generated this result transmitted reference range : 10*3/?L. The reference range was not used to interpret this result as normal/abnormal . GRAN MAT (NEUT) % 72.7 % (test code = 770-8) IMM GRAN % (test code 0.30 % = 7715340186) LYMPH % (test code = 17.5 % 736-9) MONO % (test code = 8.2 % 5905-5) EOS % (test code = 1.0 % 713-8) BASO % (test code = 0.3 % 706-2) GRAN MAT x10^3(ANC) 2.83 10*3/uL 1.99-6.95 (test code = 0564816665) IMM GRAN x10^3 (test 0-0.06 code = 0280057082) LYMPH x10^3 (test code 0.68 10*3/uL 1.09-3.23 L = 731-0) MONO x10^3 (test code 0.32 10*3/uL 0.36-1.02 L = 742-7) EOS x10^3 (test code = 0.04 10*3/uL 0.06-0.53 L 711-2) BASO x10^3 (test code 0.01-0.09 = 704-7) Lab Interpretation Abnormal (test code = 92489-0) [facility] WITH [id number] 05:21:51 Test Item Value Reference Range Interpretation Comments WBC (test code = See_Comment L [Automated 9290-2) message] The sy stem which generated this result transmitted reference range : 4.20 - 10.70 10*3/?L. The reference range was not used to interpret this result as normal/abnormal . RBC (test code = See_Comment [Automated 889-8) message] The sy stem which generated this result transmitted reference range : 4.26 - 5.52 10*6/?L. The reference range was not used to interpret this result as normal/abnormal . HGB (test code = 15.0 g/dL 12.2-16.4 718-7) HCT (test code = 45.3 % 38.4-49.3 4544-3) MCV (test code = 94.0 fL 81.7-95.6 787-2) MCH (test code = 31.1 pg 26.1-32.7 785-6) MCHC (test code = 33.1 g/dL 31.2-35 786-4) RDW-SD (test code = 45.1 fL 38.5-51.6 46094-3) RDW-CV (test code = 13.3 % 12.1-15.4 788-0) PLT (test code = See_Comment L [Automated 777-3) message] The sy stem which generated this result transmitted reference range : 150 - 328 10*3/ ?L. The reference r shen was not used to interpret this result as normal/abnormal . MPV (test code = 12.4 fL 9.8-13 43797-1) NRBC/100 WBC (test See_Comment [Automat ed code = 9782842266) message] The system which generated this result transmitted reference range : 0.0 - 10.0 /100 WBCs. The refer ence range was not u sed to interpret th is result as normal/abnormal . NRBC x10^3 (test code See_Comment [Auto mated = 8849347534) message] The s ystem which generated this result transmitted reference range : 10*3/?L. The reference range was not used to interpret this result as normal/abnormal . GRAN MAT (NEUT) % 72.7 % (test code = 770-8) IMM GRAN % (test code 0.30 % = 1024215782) LYMPH % (test code = 17.5 % 736-9) MONO % (test code = 8.2 % 5905-5) EOS % (test code = 1.0 % 713-8) BASO % (test code = 0.3 % 706-2) GRAN MAT x10^3(ANC) 2.83 10*3/uL 1.99-6.95 (test code = 0911372325) IMM GRAN x10^3 (test 0-0.06 code = 2927014461) LYMPH x10^3 (test code 0.68 10*3/uL 1.09-3.23 L = 731-0) MONO x10^3 (test code 0.32 10*3/uL 0.36-1.02 L = 742-7) EOS x10^3 (test code = 0.04 10*3/uL 0.06-0.53 L 711-2) BASO x10^3 (test code 0.01-0.09 = 704-7) Lab Interpretation Abnormal (test code = 84596-5) [id number] 11:45:00 Test Item Value Reference Range Interpretation Comments POC-GLUCOSE METER 138 mg/dL 70-110 H TESTED AT [place] [address] ([facility]) (test code = BR[facility]SA Estrada [facility] 1538) [address] POCT-GLUCOSE [id number] 06:18:00 Test Item Value Reference Range Interpretation Comments POC-GLUCOSE METER 127 mg/dL 70-110 H TESTED AT [place] [address] ([facility]) (test code = [facility] Estrada [facility] 1538) [address] POCT-GLUCOSE [id number] 00:19:00 Test Item Value Reference Range Interpretation Comments POC-GLUCOSE METER 124 mg/dL 70-110 H TESTED AT [place] [address] ([facility]) (test code = [facility] Estrada [facility] 1538) 8[address] POCT-GLUCOSE [id number] 15:26:00 Test Item Value Reference Range Interpretation Comments POC-GLUCOSE METER 113 mg/dL 70-110 H TESTED AT [place] [address] ([facility]) (test code = [facility] Estrada [facility] 1538) [address] POCT-GLUCOSE [id number] 10:30:00 Test Item Value Reference Range Interpretation Comments POC-GLUCOSE METER 134 mg/dL 70-110 H TESTED AT [place] [address] ([facility]) (test code = [facility] Estr[facility] 1538) 6[address] POCT-GLUCOSE [id number] 06:25:00 Test Item Value Reference Range Interpretation Comments POC-GLUCOSE METER 120 mg/dL 70-110 H TESTED AT [place] [address] ([facility]) (test code = [facility] Estrada [facility] 1538) 89233 POCT-GLUCOSE [id number] 01:12:00 Test Item Value Reference Range Interpretation Comments POC-GLUCOSE METER 122 mg/dL 70-110 H TESTED AT [place] [address] ([facility]) (test code = [facility] Estrada [facility] 1538) 22782 POCT-GLUCOSE [id number] 18:32:00 Test Item Value Reference Range Interpretation Comments POC-GLUCOSE METER 129 mg/dL 70-110 H TESTED AT [place] [address] ([facility]) (test code = [facility] Estr[facility] 1538) 54570 POCT-GLUCOSE [id number] 12:10:00 Test Item Value Reference Range Interpretation Comments POC-GLUCOSE METER 125 mg/dL 70-110 H TESTED AT [place] [address] ([facility]) (test code = [facility] Estr[facility] 1538) 43066 POCT-GLUCOSE [id number] 05:50:00 Test Item Value Reference Range Interpretation Comments POC-GLUCOSE METER 115 mg/dL 70-110 H TESTED AT [place] [address] ([facility]) (test code = [facility] 1538) [address]92 POCT-GLUCOSE [id number] 23:18:00 Test Item Value Reference Range Interpretation Comments POC-GLUCOSE METER 117 mg/dL 70-110 H TESTED AT [place] [address] ([facility]) (test code = [facility] 1538) 8[address]99 POCT-GLUCOSE [id number] 16:33:00 Test Item Value Reference Range Interpretation Comments POC-GLUCOSE METER 124 mg/dL 70-110 H TESTED AT [place] [address] ([facility]) (test code = [facility] 1538) 15075 POCT-GLUCOSE [id number] 11:48:00 Test Item Value Reference Range Interpretation Comments POC-GLUCOSE METER 147 mg/dL 70-110 H TESTED AT [place] [address] ([facility]) (test code = [facility] 1538) 10[address] BASIC METABOLIC [id number] 07:27:00 Test Item Value Reference Range Interpretation Comments SODIUM (BEAKER) 138 meq/L 136-145 (test code = 381) POTASSIUM (BEAKER) 3.9 meq/L 3.5-5.1 Specimen slightly (test code = 379) hemolyzed CHLORIDE (BEAKER) 102 meq/L 98-107 (test code = 382) CO2 (BEAKER) (test 28 meq/L 22-29 code = 355) BLOOD UREA NITROGEN 22 mg/dL 7-21 H (BEAKER) (test code = 354) CREATININE (BEAKER) 0.88 mg/dL 0.57-1.25 Specimen slightly (test code = 358) hemolyzed GLUCOSE RANDOM 123 mg/dL 70-105 H (BEAKER) (test code = 652) CALCIUM (BEAKER) 8.3 mg/dL 8.4-10.2 L (test code = 697) EGFR (BEAKER) (test 86 mL/min/1.73 ESTIMA SANDER GFR IS code = 1092) sq m NOT ACCURATE CREATININE CLEARANCE IN PREDICTING GLOMERULAR FILTRATION RATE . ESTIMATED GFR I S NOT APPLICABLE FOR DIALYSIS PATIEN TS. CBC W/PLT COUNT & AUTO [id number] 06:26:00 Test Item Value Reference Range Interpretation Comments WHITE BLOOD CELL COUNT (BEAKER) 3.8 K/ L 3.5-10.5 (test code = 775) RED BLOOD CELL COUNT (BEAKER) 4.33 M/ L 4.63-6.08 L (test code = 761) HEMOGLOBIN (BEAKER) (test code = 12.3 GM/DL 13.7-17.5 L 410) HEMATOCRIT (BEAKER) (test code = 38.9 % 40.1-51.0 L 411) MEAN CORPUSCULAR VOLUME (BEAKER) 89.8 fL 79.0-92.2 (test code = 753) MEAN CORPUSCULAR HEMOGLOBIN 28.4 pg 25.7-32.2 (BEAKER) (test code = 751) MEAN CORPUSCULAR HEMOGLOBIN CONC 31.6 GM/DL 32.3-36.5 L (BEAKER) (test code = 752) RED CELL DISTRIBUTION WIDTH 15.8 % 11.6-14.4 H (BEAKER) (test code = 412) PLATELET COUNT (BEAKER) (test 150 K/CU MM 150-450 code = 756) MEAN PLATELET VOLUME (BEAKER) 11.8 fL 9.4-12.4 (test code = 754) NEUTROPHILS RELATIVE PERCENT 65 % (BEAKER) (test code = 429) LYMPHOCYTES RELATIVE PERCENT 18 % (BEAKER) (test code = 430) MONOCYTES RELATIVE PERCENT 9 % (BEAKER) (test code = 431) EOSINOPHILS RELATIVE PERCENT 8 % (BEAKER) (test code = 432) BASOPHILS RELATIVE PERCENT 1 % (BEAKER) (test code = 437) NEUTROPHILS ABSOLUTE COUNT 2.48 K/ L 1.78-5.38 (BEAKER) (test code = 670) LYMPHOCYTES ABSOLUTE COUNT 0.69 K/ L 1.32-3.57 L (BEAKER) (test code = 414) MONOCYTES ABSOLUTE COUNT (BEAKER) 0.34 K/ L 0.30-0.82 (test code = 415) EOSINOPHILS ABSOLUTE COUNT 0.30 K/ L 0.04-0.54 (BEAKER) (test code = 416) BASOPHILS ABSOLUTE COUNT (BEAKER) 0.02 K/ L 0.01-0.08 (test code = 417) IMMATURE GRANULOCYTES-RELATIVE 0 % 0-1 PERCENT (BEAKER) (test code = 2801) POCT-GLUCOSE [id number] 06:10:00 Test Item Value Reference Range Interpretation Comments POC-GLUCOSE METER 126 mg/dL 70-110 H TESTED AT [place] [address] ([facility]) (test code = [facility] Estrada [place] 1538) [address] POCT-GLUCOSE [id number] 23:53:00 Test Item Value Reference Range Interpretation Comments POC-GLUCOSE METER 126 mg/dL 70-110 H TESTED AT [place] [address] ([facility]) (test code = BR[facility]SA Estrada [place] 1538) [address] POCT-GLUCOSE [id number] 16:56:00 Test Item Value Reference Range Interpretation Comments POC-GLUCOSE METER 92 mg/dL 70-110 TESTED AT [place] [address] ([facility]) (test code = [place] [address] 1538) POCT-GLUCOSE [id number] 11:37:00 Test Item Value Reference Range Interpretation Comments POC-GLUCOSE METER 129 mg/dL 70-110 H TESTED AT [place] [address] ([facility]) (test code = BR[facility]SA Estrada [place] 1538) [address] POCT-GLUCOSE [id number] 06:50:00 Test Item Value Reference Range Interpretation Comments POC-GLUCOSE METER 137 mg/dL 70-110 H TESTED AT [place] [address] ([facility]) (test code = BR[facility] Estrada [place] 1538) [address] POCT-GLUCOSE [id number] 00:48:00 Test Item Value Reference Range Interpretation Comments POC-GLUCOSE METER 120 mg/dL 70-110 H TESTED AT [place] [address] ([facility]) (test code = BR[facility]SA Estrada [place] 1538) [address] POCT-GLUCOSE [id number] 17:06:00 Test Item Value Reference Range Interpretation Comments POC-GLUCOSE METER 114 mg/dL 70-110 H TESTED AT [place] [address] ([facility]) (test code = MANISHVAN Sean [place] 1538) [address] POCT-GLUCOSE [id number] 11:30:00 Test Item Value Reference Range Interpretation Comments POC-GLUCOSE METER 122 mg/dL 70-110 H TESTED AT [place] [address] ([facility]) (test code = MANISHVAN [place]strada [place] 1538) [address]40 POCT-GLUCOSE [id number] 06:30:00 Test Item Value Reference Range Interpretation Comments POC-GLUCOSE METER 109 mg/dL 70-110 TESTED AT [place] [address] ([facility]) (test code = [place]AN [place] 1538) [address]189 POCT-GLUCOSE [id number] 02:39:00 Test Item Value Reference Range Interpretation Comments POC-GLUCOSE METER 122 mg/dL 70-110 H TESTED AT [place] [address] ([facility]) (test code = [place]AN [place] 1538) [address] POCT-GLUCOSE [id number] 16:32:00 Test Item Value Reference Range Interpretation Comments POC-GLUCOSE METER 119 mg/dL 70-110 H TESTED AT [place] [address] ([facility]) (test code = MANISHVAN Sean [place] 1538) [address]896 POCT-GLUCOSE [id number] 06:25:00 Test Item Value Reference Range Interpretation Comments POC-GLUCOSE METER 110 mg/dL 70-110 TESTED AT [place] [address] ([facility]) (test code = [place]ISHVAN [place] 1538) [address]47 POCT-GLUCOSE [id number] 00:07:00 Test Item Value Reference Range Interpretation Comments POC-GLUCOSE METER 132 mg/dL 70-110 H TESTED AT [place] [address] ([facility]) (test code = MANISHVAN Sean [place] 1538) [address] POCT-GLUCOSE [id number] 17:25:00 Test Item Value Reference Range Interpretation Comments POC-GLUCOSE METER 147 mg/dL 70-110 H TESTED AT [place] [address] ([facility]) (test code = BRISSA Estrada [place] 1538) [address] POCT-GLUCOSE [id number] 12:26:00 Test Item Value Reference Range Interpretation Comments POC-GLUCOSE METER 188 mg/dL 70-110 H TESTED AT [place] [address] ([facility]) (test code = MANISHVAN [place]strada [place] 1538) [address] POCT-GLUCOSE [id number] 06:28:00 Test Item Value Reference Range Interpretation Comments POC-GLUCOSE METER 107 mg/dL 70-110 TESTED AT [place] [address] ([facility]) (test code = MANISHVAN Estrada [place] 1538) [address]367 POCT-GLUCOSE [id number] 23:53:00 Test Item Value Reference Range Interpretation Comments POC-GLUCOSE METER 143 mg/dL 70-110 H TESTED AT [place] [address] ([facility]) (test code = BR[facility] Estrada [facility] 1538) 45094 POCT-GLUCOSE [id number] 17:13:00 Test Item Value Reference Range Interpretation Comments POC-GLUCOSE METER 180 mg/dL 70-110 H TESTED AT [place] [address] ([facility]) (test code = BR[facility] Estrada [facility] 1538) [address] FL, ESOPH, SWALLOW FUNCTION, WITH CINE OR [id number] 15:39:00Reason for exam:->dysphagiaFINAL REPORT Modified barium swallow Reason for examination: dysphagia TECHNIQUE: Fluoroscopy provided. RADIATION DOSE: Fluoroscopy Time: 1.17 min Dose (Kerma) Area Product: 1894.3gQumn9 Air Kerma (AK) value has been reviewed. It is below the limits set by the Radiation Protocol Committee (RPC) committee. DISCUSSION: Initial customer trainer view of the chest shows no acute abnormalities. This examination was conducted in conjunction with speech pathologist. Patient was given, by mouth, liquids, semisolids, and solids. No aspiration was noted. There were two episodes of laryngeal penetrat ion with nectar. IMPRESSION: No evidence of aspiration. Two episodes of laryngeal penetration with nectar. Please see speech pathology report for detailed description and recommendations. Signed: Samaria Platt Verified Date/Time: 10/06/2018 15:39:34 Reading Location: [facility] Reading Room [address] [place] [address] POCT-GLUCOSE [id number] 05:51:00 Test Item Value Reference Range Interpretation Comments POC-GLUCOSE METER 111 mg/dL 70-110 H TESTED AT [place] [address] ([facility]) (test code = BR[facility]SA Estrada [facility] 1538) [address] POCT-GLUCOSE [id number] 23:49:00 Test Item Value Reference Range Interpretation Comments POC-GLUCOSE METER 169 mg/dL 70-110 H TESTED AT [place] [address] ([facility]) (test code = BR[facility] Estrada [facility] 1538) 26094 POCT-GLUCOSE [id number] 17:11:00 Test Item Value Reference Range Interpretation Comments POC-GLUCOSE METER 182 mg/dL 70-110 H TESTED AT [place] [address] ([facility]) (test code = [facility] 1538) [address]62 POCT-GLUCOSE [id number] 12:14:00 Test Item Value Reference Range Interpretation Comments POC-GLUCOSE METER 162 mg/dL 70-110 H TESTED AT [place] [address] ([facility]) (test code = [facility] 1538) [address] POCT-GLUCOSE [id number] 06:32:00 Test Item Value Reference Range Interpretation Comments POC-GLUCOSE METER 122 mg/dL 70-110 H TESTED AT [place] [address] ([facility]) (test code = BR[facility]SA Estrada [place] 1538) [address]81 POCT-GLUCOSE [id number] 23:30:00 Test Item Value Reference Range Interpretation Comments POC-GLUCOSE METER 133 mg/dL 70-110 H TESTED AT [place] [address] ([facility]) (test code = BR[facility]SA Estrada [place] 1538) [address]75 POCT-GLUCOSE [id number] 16:43:00 Test Item Value Reference Range Interpretation Comments POC-GLUCOSE METER 180 mg/dL 70-110 H TESTED AT [place] [address] ([facility]) (test code = BRISSA Estrada [place] 1538) [address]856 POCT-GLUCOSE [id number] 12:06:00 Test Item Value Reference Range Interpretation Comments POC-GLUCOSE METER 185 mg/dL 70-110 H TESTED AT [place] [address] ([facility]) (test code = BRISSA Estrada [place] 1538) [id number] POCT-GLUCOSE [id number] 06:37:00 Test Item Value Reference Range Interpretation Comments POC-GLUCOSE METER 128 mg/dL 70-110 H TESTED AT [place] [address] ([facility]) (test code = BRISSA Estrada [place] 1538) [id number] POCT-GLUCOSE [id number] 00:37:00 Test Item Value Reference Range Interpretation Comments POC-GLUCOSE METER 138 mg/dL 70-110 H TESTED AT [place] [address] ([facility]) (test code = BRISSA Estrada [place] 1538) [id number] POCT-GLUCOSE [id number] 16:37:00 Test Item Value Reference Range Interpretation Comments POC-GLUCOSE METER 166 mg/dL 70-110 H TESTED AT [place] [address] ([facility]) (test code = BRISSA Estrada [facility] 1538) [id number] POCT-GLUCOSE [id number] 11:53:00 Test Item Value Reference Range Interpretation Comments POC-GLUCOSE METER 182 mg/dL 70-110 H TESTED AT [facility] 67[facility] (BEAKER) (test code = BRISSA Estrada [facility] 1538) [id number] POCT-GLUCOSE [id number] 06:23:00 Test Item Value Reference Range Interpretation Comments POC-GLUCOSE METER 109 mg/dL 70-110 TESTED AT [facility] 67[facility] (BEAKER) (test code = BRISSA Estrada [facility] 1538) [id number] BASIC METABOLIC [id number] 05:27:00 Test Item Value Reference Range Interpretation Comments SODIUM (BEAKER) 136 meq/L 136-145 (test code = 381) POTASSIUM (BEAKER) 4.2 meq/L 3.5-5.1 Specimen slightly (test code = 379) hemolyzed CHLORIDE (BEAKER) 100 meq/L 98-107 (test code = 382) CO2 (BEAKER) (test 29 meq/L 22-29 code = 355) BLOOD UREA NITROGEN 37 mg/dL 7-21 H (BEAKER) (test code = 354) CREATININE (BEAKER) 0.98 mg/dL 0.57-1.25 Specimen slightly (test code = 358) hemolyzed GLUCOSE RANDOM 118 mg/dL 70-105 H (BEAKER) (test code = 652) CALCIUM (BEAKER) 8.9 mg/dL 8.4-10.2 (test code = 697) EGFR (BEAKER) (test 76 mL/min/1.73 ESTIMA SANDER GFR IS code = 1092) sq m NOT ACCURATE CREATININE CLEARANCE IN PREDICTING GLOMERULAR FILTRATION RATE . ESTIMATED GFR I S NOT APPLICABLE FOR DIALYSIS PATIEN TS. CBC W/PLT COUNT & AUTO [id number] 04:54:00 Test Item Value Reference Range Interpretation Comments WHITE BLOOD CELL COUNT (BEAKER) 7.8 K/ L 3.5-10.5 (test code = 775) RED BLOOD CELL COUNT (BEAKER) 4.17 M/ L 4.63-6.08 L (test code = 761) HEMOGLOBIN (BEAKER) (test code = 12.0 GM/DL 13.7-17.5 L 410) HEMATOCRIT (BEAKER) (test code = 36.7 % 40.1-51.0 L 411) MEAN CORPUSCULAR VOLUME (BEAKER) 88.0 fL 79.0-92.2 (test code = 753) MEAN CORPUSCULAR HEMOGLOBIN 28.8 pg 25.7-32.2 (BEAKER) (test code = 751) MEAN CORPUSCULAR HEMOGLOBIN CONC 32.7 GM/DL 32.3-36.5 (BEAKER) (test code = 752) RED CELL DISTRIBUTION WIDTH 14.7 % 11.6-14.4 H (BEAKER) (test code = 412) PLATELET COUNT (BEAKER) (test 240 K/CU MM 150-450 code = 756) MEAN PLATELET VOLUME (BEAKER) 11.4 fL 9.4-12.4 (test code = 754) NEUTROPHILS RELATIVE PERCENT 74 % (BEAKER) (test code = 429) LYMPHOCYTES RELATIVE PERCENT 17 % (BEAKER) (test code = 430) MONOCYTES RELATIVE PERCENT 7 % (BEAKER) (test code = 431) EOSINOPHILS RELATIVE PERCENT 0 % (BEAKER) (test code = 432) BASOPHILS RELATIVE PERCENT 0 % (BEAKER) (test code = 437) NEUTROPHILS ABSOLUTE COUNT 5.75 K/ L 1.78-5.38 H (BEAKER) (test code = 670) LYMPHOCYTES ABSOLUTE COUNT 1.34 K/ L 1.32-3.57 (BEAKER) (test code = 414) MONOCYTES ABSOLUTE COUNT (BEAKER) 0.57 K/ L 0.30-0.82 (test code = 415) EOSINOPHILS ABSOLUTE COUNT 0.03 K/ L 0.04-0.54 L (BEAKER) (test code = 416) BASOPHILS ABSOLUTE COUNT (BEAKER) 0.02 K/ L 0.01-0.08 (test code = 417) IMMATURE GRANULOCYTES-RELATIVE 1 % 0-1 PERCENT (BEAKER) (test code = 2801) POCT-GLUCOSE [id number] 01:27:00 Test Item Value Reference Range Interpretation Comments POC-GLUCOSE METER 122 mg/dL 70-110 H TESTED AT [facility] 6720 (BEAKER) (test code = BRISSA GILMAN 1538) [id number] POCT-GLUCOSE [id number] 16:45:00 Test Item Value Reference Range Interpretation Comments POC-GLUCOSE METER 197 mg/dL 70-110 H TESTED AT [place] [address] ([facility]) (test code = BRISSA Estrada [place] 1538) [address] POCT-GLUCOSE [id number] 12:19:00 Test Item Value Reference Range Interpretation Comments POC-GLUCOSE METER 186 mg/dL 70-110 H TESTED AT [place] [address] ([facility]) (test code = BRISSA Estrada [place] 1538) [address] POCT-GLUCOSE [id number] 06:06:00 Test Item Value Reference Range Interpretation Comments POC-GLUCOSE METER 123 mg/dL 70-110 H TESTED AT [place] [address] ([facility]) (test code = BRISSA Estrada [place] 1538) [address] POCT-GLUCOSE [id number] 00:23:00 Test Item Value Reference Range Interpretation Comments POC-GLUCOSE METER 111 mg/dL 70-110 H TESTED AT [place] [address] ([facility]) (test code = BRISSA Estrada [place] 1538) [address] POCT-GLUCOSE [id number] 16:33:00 Test Item Value Reference Range Interpretation Comments POC-GLUCOSE METER 220 mg/dL 70-110 H TESTED AT [place] [address] ([facility]) (test code = BRISSA Estrada [facility] 1538) [address] POCT-GLUCOSE [id number] 12:05:00 Test Item Value Reference Range Interpretation Comments POC-GLUCOSE METER 197 mg/dL 70-110 H TESTED AT [place] [address] ([facility]) (test code = BRISSA Estrada [facility] 1538) [address] URIC [id number] 08:32:00 Test Item Value Reference Range Interpretation Comments URIC ACID ([facility]) (test code = 9.8 mg/dL 2.6-7.2 H 773) POCT-GLUCOSE [id number] 06:39:00 Test Item Value Reference Range Interpretation Comments POC-GLUCOSE METER 140 mg/dL 70-110 H TESTED AT [place] [address] ([facility]) (test code = BRISSA Estrada [place] 1538) [address] POCT-GLUCOSE [id number] 23:49:00 Test Item Value Reference Range Interpretation Comments POC-GLUCOSE METER 162 mg/dL 70-110 H TESTED AT [place] [address] ([facility]) (test code = BRISSA Estrada [place] 1538) [address] POCT-GLUCOSE [id number] 16:38:00 Test Item Value Reference Range Interpretation Comments POC-GLUCOSE METER 196 mg/dL 70-110 H TESTED AT [facility] 6720 (BEAKER) (test code = BRISSA Estrada [place] 1538) [address] POCT-GLUCOSE [id number] 12:21:00 Test Item Value Reference Range Interpretation Comments POC-GLUCOSE METER 255 mg/dL 70-110 H TESTED AT [facility] 6720 (BEAKER) (test code = BRISSA Estrada [place] 1538) [id number] BASIC METABOLIC [id number] 06:27:00 Test Item Value Reference Range Interpretation Comments SODIUM (BEAKER) 135 meq/L 136-145 L (test code = 381) POTASSIUM (BEAKER) 4.4 meq/L 3.5-5.1 Specimen slightly (test code = 379) hemolyzed CHLORIDE (BEAKER) 99 meq/L 98-107 (test code = 382) CO2 (BEAKER) (test 31 meq/L 22-29 H code = 355) BLOOD UREA NITROGEN 59 mg/dL 7-21 H (BEAKER) (test code = 354) CREATININE (BEAKER) 1.19 mg/dL 0.57-1.25 Specimen slightly (test code = 358) hemolyzed GLUCOSE RANDOM 114 mg/dL 70-105 H (BEAKER) (test code = 652) CALCIUM (BEAKER) 8.3 mg/dL 8.4-10.2 L (test code = 697) EGFR (BEAKER) (test 61 mL/min/1.73 ESTIMA SANDER GFR IS code = 1092) sq m NOT ACCURATE CREATININE CLEARANCE IN PREDICTING GLOMERULAR FILTRATION RATE . ESTIMATED GFR I S NOT APPLICABLE FOR DIALYSIS PATIEN TS. POCT-GLUCOSE [id number] 05:57:00 Test Item Value Reference Range Interpretation Comments POC-GLUCOSE METER 131 mg/dL 70-110 H TESTED AT [facility] 6720 (BEAKER) (test code = BRISSA Estrada [place] 1538) [address] POCT-GLUCOSE [id number] 00:03:00 Test Item Value Reference Range Interpretation Comments POC-GLUCOSE METER 151 mg/dL 70-110 H TESTED AT [facility] 6720 (BEAKER) (test code = BRISSA Estrada [place] 1538) [address] POCT-GLUCOSE [id number] 17:07:00 Test Item Value Reference Range Interpretation Comments POC-GLUCOSE METER 180 mg/dL 70-110 H TESTED AT [facility] 6720 (BEAKER) (test code = BRISSA Estrada [place] 1538) [address] POCT-GLUCOSE [id number] 11:26:00 Test Item Value Reference Range Interpretation Comments POC-GLUCOSE METER 172 mg/dL 70-110 H TESTED AT [place] [address] (BEAKER) (test code = BRISSA Estrada [place] 1538) [address] POCT-GLUCOSE [id number] 06:29:00 Test Item Value Reference Range Interpretation Comments POC-GLUCOSE METER 166 mg/dL 70-110 H TESTED AT [place] [address] (BEAKER) ([facility] [place] 1538) [address] BASIC METABOLIC [id number] 06:02:00 Test Item Value Reference Range Interpretation Comments SODIUM (BEAKER) 136 meq/L 136-145 (test code = 381) POTASSIUM (BEAKER) 4.5 meq/L 3.5-5.1 Specimen slightly (test code = 379) hemolyzed CHLORIDE (BEAKER) 98 meq/L 98-107 (test code = 382) CO2 (BEAKER) (test 31 meq/L 22-29 H code = 355) BLOOD UREA NITROGEN 72 mg/dL 7-21 H (BEAKER) (test code = 354) CREATININE (BEAKER) 1.25 mg/dL 0.57-1.25 Specimen slightly (test code = 358) hemolyzed GLUCOSE RANDOM 117 mg/dL 70-105 H (BEAKER) (test code = 652) CALCIUM (BEAKER) 9.0 mg/dL 8.4-10.2 (test code = 697) EGFR (BEAKER) (test 58 mL/min/1.73 ESTIMA SANDER GFR IS code = 1092) sq m NOT ACCURATE CREATININE CLEARANCE IN PREDICTING GLOMERULAR FILTRATION RATE . ESTIMATED GFR I S NOT APPLICABLE FOR DIALYSIS PATIEN TS. POCT-GLUCOSE [id number] 23:57:00 Test Item Value Reference Range Interpretation Comments POC-GLUCOSE METER 175 mg/dL 70-110 H TESTED AT [facility] 6720 (BEAKER) (test code = BRISSA Estrada [place] 1538) [address] POCT-GLUCOSE [id number] 18:14:00 Test Item Value Reference Range Interpretation Comments POC-GLUCOSE METER 208 mg/dL 70-110 H TESTED AT [facility] 6720 (BEAKER) (test code = BRISSA Estrada [place] 1538) [address] POCT-GLUCOSE [id number] 12:04:00 Test Item Value Reference Range Interpretation Comments POC-GLUCOSE METER 184 mg/dL 70-110 H TESTED AT [facility] 6720 (BEAKER) (test code = [facility] Sean [place] 1538) [address] BASIC METABOLIC [id number] 07:35:00 Test Item Value Reference Range Interpretation Comments SODIUM (BEAKER) 133 meq/L 136-145 L (test code = 381) POTASSIUM (BEAKER) 3.9 meq/L 3.5-5.1 Specimen slightly (test code = 379) hemolyzed CHLORIDE (BEAKER) 95 meq/L 98-107 L (test code = 382) CO2 (BEAKER) (test 31 meq/L 22-29 H code = 355) BLOOD UREA NITROGEN 59 mg/dL 7-21 H (BEAKER) (test code = 354) CREATININE (BEAKER) 1.35 mg/dL 0.57-1.25 H Specimen slightly (test code = 358) hemolyzed GLUCOSE RANDOM 134 mg/dL 70-105 H (BEAKER) (test code = 652) CALCIUM (BEAKER) 8.9 mg/dL 8.4-10.2 (test code = 697) EGFR (BEAKER) (test 53 mL/min/1.73 ESTIMA SANDER GFR IS code = 1092) sq m NOT ACCURATE CREATININE CLEARANCE IN PREDICTING GLOMERULAR FILTRATION RATE . ESTIMATED GFR I S NOT APPLICABLE FOR DIALYSIS PATIEN TS. POCT-GLUCOSE [id number] 06:18:00 Test Item Value Reference Range Interpretation Comments POC-GLUCOSE METER 176 mg/dL 70-110 H TESTED AT [facility] 6720 (BEAKER) (test code = [facility] Sean [place] 1538) [address] POCT-GLUCOSE [id number] 23:54:00 Test Item Value Reference Range Interpretation Comments POC-GLUCOSE METER 137 mg/dL 70-110 H TESTED AT [facility] 6720 (BEAKER) (test code = [facility] Sean [place] 1538) [address] POCT-GLUCOSE [id number] 17:44:00 Test Item Value Reference Range Interpretation Comments POC-GLUCOSE METER 205 mg/dL 70-110 H TESTED AT [place] [address] ([facility]) (test code = BRISSA Estrada [place] 1538) [address] POCT-GLUCOSE [id number] 12:33:00 Test Item Value Reference Range Interpretation Comments POC-GLUCOSE METER 199 mg/dL 70-110 H TESTED AT [place] [address] (BEAKER) (test code = BRISSA Estrada [place] 1538) [address] POCT-GLUCOSE [id number] 06:23:00 Test Item Value Reference Range Interpretation Comments POC-GLUCOSE METER 132 mg/dL 70-110 H TESTED AT [place] [address] (BEAKER) (test code = [facility] Sean [facility] 1538) [address] BASIC METABOLIC [id number] 06:21:00 Test Item Value Reference Range Interpretation Comments SODIUM (BEAKER) 137 meq/L 136-145 (test code = 381) POTASSIUM (BEAKER) 4.4 meq/L 3.5-5.1 Specimen slightly (test code = 379) hemolyzed CHLORIDE (BEAKER) 99 meq/L 98-107 (test code = 382) CO2 (BEAKER) (test 32 meq/L 22-29 H code = 355) BLOOD UREA NITROGEN 47 mg/dL 7-21 H (BEAKER) (test code = 354) CREATININE (BEAKER) 1.08 mg/dL 0.57-1.25 Specimen slightly (test code = 358) hemolyzed GLUCOSE RANDOM 119 mg/dL 70-105 H (BEAKER) (test code = 652) CALCIUM (BEAKER) 8.9 mg/dL 8.4-10.2 (test code = 697) EGFR (BEAKER) (test 68 mL/min/1.73 ESTIMA SANDER GFR IS code = 1092) sq m NOT ACCURATE CREATININE CLEARANCE IN PREDICTING GLOMERULAR FILTRATION RATE . ESTIMATED GFR I S NOT APPLICABLE FOR DIALYSIS PATIEN TS. POCT-GLUCOSE [id number] 00:04:00 Test Item Value Reference Range Interpretation Comments POC-GLUCOSE METER 145 mg/dL 70-110 H TESTED AT [place] [address] (BEAKER) (test code = BRISSA Estrada [place] 1538) [id number] POCT-GLUCOSE [id number] 18:21:00 Test Item Value Reference Range Interpretation Comments POC-GLUCOSE METER 156 mg/dL 70-110 H TESTED AT [place] [address] (BEAKER) (test code = BRISSA Estrada [facility] 1538) [id number] POCT-GLUCOSE [id number] 12:17:00 Test Item Value Reference Range Interpretation Comments POC-GLUCOSE METER 231 mg/dL 70-110 H TESTED AT [place] [id number] (BEAKER) (test code = [facility] Sean [facility] 1538) [address] POCT-GLUCOSE [id number] 06:42:00 Test Item Value Reference Range Interpretation Comments POC-GLUCOSE METER 150 mg/dL 70-110 H TESTED AT [place] [address] (BEAKER) (test code = [facility] Sean [facility] 1538) [address] BASIC METABOLIC [id number] 06:09:00 Test Item Value Reference Range Interpretation Comments SODIUM (BEAKER) 140 meq/L 136-145 (test code = 381) POTASSIUM (BEAKER) 3.9 meq/L 3.5-5.1 Specimen slightly (test code = 379) hemolyzed CHLORIDE (BEAKER) 98 meq/L 98-107 (test code = 382) CO2 (BEAKER) (test 35 meq/L 22-29 H code = 355) BLOOD UREA NITROGEN 60 mg/dL 7-21 H (BEAKER) (test code = 354) CREATININE (BEAKER) 1.25 mg/dL 0.57-1.25 Specimen slightly (test code = 358) hemolyzed GLUCOSE RANDOM 140 mg/dL 70-105 H (BEAKER) (test code = 652) CALCIUM (BEAKER) 9.0 mg/dL 8.4-10.2 (test code = 697) EGFR (BEAKER) (test 58 mL/min/1.73 ESTIMA SANDER GFR IS code = 1092) sq m NOT ACCURATE CREATININE CLEARANCE IN PREDICTING GLOMERULAR FILTRATION RATE . ESTIMATED GFR I S NOT APPLICABLE FOR DIALYSIS PATIEN TS. CBC W/PLT COUNT & AUTO [id number] 06:04:00 Test Item Value Reference Range Interpretation Comments WHITE BLOOD CELL COUNT (BEAKER) 10.0 K/ L 3.5-10.5 (test code = 775) RED BLOOD CELL COUNT (BEAKER) 4.82 M/ L 4.63-6.08 (test code = 761) HEMOGLOBIN (BEAKER) (test code = 13.4 GM/DL 13.7-17.5 L 410) HEMATOCRIT (BEAKER) (test code = 43.4 % 40.1-51.0 411) MEAN CORPUSCULAR VOLUME (BEAKER) 90.0 fL 79.0-92.2 (test code = 753) MEAN CORPUSCULAR HEMOGLOBIN 27.8 pg 25.7-32.2 (BEAKER) (test code = 751) MEAN CORPUSCULAR HEMOGLOBIN CONC 30.9 GM/DL 32.3-36.5 L (BEAKER) (test code = 752) RED CELL DISTRIBUTION WIDTH 14.9 % 11.6-14.4 H (BEAKER) (test code = 412) PLATELET COUNT (BEAKER) (test 312 K/CU MM 150-450 code = 756) MEAN PLATELET VOLUME (BEAKER) 11.0 fL 9.4-12.4 (test code = 754) NEUTROPHILS RELATIVE PERCENT 78 % (BEAKER) (test code = 429) LYMPHOCYTES RELATIVE PERCENT 14 % (BEAKER) (test code = 430) MONOCYTES RELATIVE PERCENT 6 % (BEAKER) (test code = 431) EOSINOPHILS RELATIVE PERCENT 0 % (BEAKER) (test code = 432) BASOPHILS RELATIVE PERCENT 0 % (BEAKER) (test code = 437) NEUTROPHILS ABSOLUTE COUNT 7.82 K/ L 1.78-5.38 H (BEAKER) (test code = 670) LYMPHOCYTES ABSOLUTE COUNT 1.41 K/ L 1.32-3.57 (BEAKER) (test code = 414) MONOCYTES ABSOLUTE COUNT (BEAKER) 0.58 K/ L 0.30-0.82 (test code = 415) EOSINOPHILS ABSOLUTE COUNT 0.03 K/ L 0.04-0.54 L (BEAKER) (test code = 416) BASOPHILS ABSOLUTE COUNT (BEAKER) 0.02 K/ L 0.01-0.08 (test code = 417) IMMATURE GRANULOCYTES-RELATIVE 1 % 0-1 PERCENT (BEAKER) (test code = 2801) POCT-GLUCOSE [id number] 01:27:00 Test Item Value Reference Range Interpretation Comments POC-GLUCOSE METER 160 mg/dL 70-110 H TESTED AT [facility] 6720 (BEAKER) (test code = BR[place]SA [place] 1538) [address] POCT-GLUCOSE [id number] 17:36:00 Test Item Value Reference Range Interpretation Comments POC-GLUCOSE METER 187 mg/dL 70-110 H TESTED AT [place] [address] ([facility]) (test code = BRISSA Estrada [place] 1538) [address] POCT-GLUCOSE [id number] 12:14:00 Test Item Value Reference Range Interpretation Comments POC-GLUCOSE METER 217 mg/dL 70-110 H TESTED AT [place] [address] ([facility]) (test code = BR[place]SA [place] 1538) [address] POCT-GLUCOSE [id number] 05:56:00 Test Item Value Reference Range Interpretation Comments POC-GLUCOSE METER 130 mg/dL 70-110 H TESTED AT [place] [address] ([facility]) (test code = RBISSA Estrada [place] 1538) [id number] POCT-GLUCOSE [id number] 23:14:00 Test Item Value Reference Range Interpretation Comments POC-GLUCOSE METER 128 mg/dL 70-110 H TESTED AT [place] [address] ([facility]) (test code = BRISSA Estrada [place] 1538) [address] POCT-GLUCOSE [id number] 17:12:00 Test Item Value Reference Range Interpretation Comments POC-GLUCOSE METER 211 mg/dL 70-110 H TESTED AT [place] [address] ([facility]) (test code = BRISSA Estrada [place] 1538) [id number] POCT-GLUCOSE [id number] 12:08:00 Test Item Value Reference Range Interpretation Comments POC-GLUCOSE METER 216 mg/dL 70-110 H TESTED AT [place] [address] ([facility]) (test code = BRISSA Estrada [place] 1538) [address] POCT-GLUCOSE [id number] 06:07:00 Test Item Value Reference Range Interpretation Comments POC-GLUCOSE METER 143 mg/dL 70-110 H TESTED AT [place] [address] ([facility]) (test code = BRISSA Estrada [place] 1538) [address] POCT-GLUCOSE [id number] 23:53:00 Test Item Value Reference Range Interpretation Comments POC-GLUCOSE METER 148 mg/dL 70-110 H TESTED AT [place] [address] ([facility]) (test code = BRISSA Estrada [place] 1538) [address] POCT-GLUCOSE [id number] 17:29:00 Test Item Value Reference Range Interpretation Comments POC-GLUCOSE METER 215 mg/dL 70-110 H TESTED AT [place] [address] ([facility]) (test code = BRISSA Estrada [facility] 1538) [address] POCT-GLUCOSE [id number] 12:09:00 Test Item Value Reference Range Interpretation Comments POC-GLUCOSE METER 218 mg/dL 70-110 H TESTED AT [facility] 6720 (BEAKER) (test code = BRISSA Estrada [facility] 1538) 104[address] POCT-GLUCOSE [id number] 05:44:00 Test Item Value Reference Range Interpretation Comments POC-GLUCOSE METER 143 mg/dL 70-110 H TESTED AT [facility] 6720 (BEAKER) (test code = BRISSA Estrada [facility] 1538) 6[address] [id number] 04:51:00 Test Item Value Reference Range Interpretation Comments MAGNESIUM (BEAKER) 2.1 mg/dL 1.6-2.6 Specimen slightly (test code = 627) hemolyzed BASIC METABOLIC [id number] 04:51:00 Test Item Value Reference Range Interpretation Comments SODIUM (BEAKER) 135 meq/L 136-145 L (test code = 381) POTASSIUM (BEAKER) 4.3 meq/L 3.5-5.1 Specimen slightly (test code = 379) hemolyzed CHLORIDE (BEAKER) 97 meq/L 98-107 L (test code = 382) CO2 (BEAKER) (test 30 meq/L 22-29 H code = 355) BLOOD UREA NITROGEN 46 mg/dL 7-21 H (BEAKER) (test code = 354) CREATININE (BEAKER) 1.22 mg/dL 0.57-1.25 Specimen slightly (test code = 358) hemolyzed GLUCOSE RANDOM 150 mg/dL 70-105 H (BEAKER) (test code = 652) CALCIUM (BEAKER) 8.7 mg/dL 8.4-10.2 (test code = 697) EGFR (BEAKER) (test 59 mL/min/1.73 ESTIMA SANDER GFR IS code = 1092) sq m NOT ACCURATE CREATININE CLEARANCE IN PREDICTING GLOMERULAR FILTRATION RATE . ESTIMATED GFR I S NOT APPLICABLE FOR DIALYSIS PATIEN TS. CBC W/PLT COUNT & AUTO [id number] 04:31:00 Test Item Value Reference Range Interpretation Comments WHITE BLOOD CELL COUNT (BEAKER) 12.5 K/ L 3.5-10.5 H (test code = 775) RED BLOOD CELL COUNT (BEAKER) 4.83 M/ L 4.63-6.08 (test code = 761) HEMOGLOBIN (BEAKER) (test code = 13.5 GM/DL 13.7-17.5 L 410) HEMATOCRIT (BEAKER) (test code = 41.7 % 40.1-51.0 411) MEAN CORPUSCULAR VOLUME (BEAKER) 86.3 fL 79.0-92.2 (test code = 753) MEAN CORPUSCULAR HEMOGLOBIN 28.0 pg 25.7-32.2 (BEAKER) (test code = 751) MEAN CORPUSCULAR HEMOGLOBIN CONC 32.4 GM/DL 32.3-36.5 (BEAKER) (test code = 752) RED CELL DISTRIBUTION WIDTH 14.7 % 11.6-14.4 H (BEAKER) (test code = 412) PLATELET COUNT (BEAKER) (test 328 K/CU MM 150-450 code = 756) MEAN PLATELET VOLUME (BEAKER) 10.7 fL 9.4-12.4 (test code = 754) NEUTROPHILS RELATIVE PERCENT 77 % (BEAKER) (test code = 429) LYMPHOCYTES RELATIVE PERCENT 14 % (BEAKER) (test code = 430) MONOCYTES RELATIVE PERCENT 7 % (BEAKER) (test code = 431) EOSINOPHILS RELATIVE PERCENT 1 % (BEAKER) (test code = 432) BASOPHILS RELATIVE PERCENT 0 % (BEAKER) (test code = 437) NEUTROPHILS ABSOLUTE COUNT 9.56 K/ L 1.78-5.38 H (BEAKER) (test code = 670) LYMPHOCYTES ABSOLUTE COUNT 1.69 K/ L 1.32-3.57 (BEAKER) (test code = 414) MONOCYTES ABSOLUTE COUNT (BEAKER) 0.90 K/ L 0.30-0.82 H (test code = 415) EOSINOPHILS ABSOLUTE COUNT 0.07 K/ L 0.04-0.54 (BEAKER) (test code = 416) BASOPHILS ABSOLUTE COUNT (BEAKER) 0.03 K/ L 0.01-0.08 (test code = 417) IMMATURE GRANULOCYTES-RELATIVE 2 % 0-1 H PERCENT (BEAKER) (test code = 2801) POCT-GLUCOSE [id number] 23:29:00 Test Item Value Reference Range Interpretation Comments POC-GLUCOSE METER 146 mg/dL 70-110 H TESTED AT [facility] 6720 (BEAKER) (test code = [place] 1538) [id number] POCT-GLUCOSE [id number] 13:33:00 Test Item Value Reference Range Interpretation Comments POC-GLUCOSE METER 184 mg/dL 70-110 H TESTED AT [place] [address] (BEAKER) (test code = [facility] 1538) [id number] POCT-GLUCOSE [id number] 10:30:00 Test Item Value Reference Range Interpretation Comments POC-GLUCOSE METER 147 mg/dL 70-110 H TESTED AT [place] [address] (BEAKER) (test code = [facility] 1538) [address] POCT-GLUCOSE [id number] 09:23:00 Test Item Value Reference Range Interpretation Comments POC-GLUCOSE METER 158 mg/dL 70-110 H TESTED AT [place] [address] (BEAKER) (test code = [facility] 1538) [address] [id number] 07:59:00 Test Item Value Reference Range Interpretation Comments PHOSPHORUS (BEAKER) (test code = 4.0 mg/dL 2.3-4.7 604) [id number] 07:59:00 Test Item Value Reference Range Interpretation Comments MAGNESIUM (BEAKER) (test code = 2.2 mg/dL 1.6-2.6 627) BASIC METABOLIC [id number] 07:59:00 Test Item Value Reference Range Interpretation Comments SODIUM (BEAKER) 137 meq/L 136-145 (test code = 381) POTASSIUM (BEAKER) 4.2 meq/L 3.5-5.1 (test code = 379) CHLORIDE (BEAKER) 98 meq/L 98-107 (test code = 382) CO2 (BEAKER) (test 29 meq/L 22-29 code = 355) BLOOD UREA NITROGEN 48 mg/dL 7-21 H (BEAKER) (test code = 354) CREATININE (BEAKER) 1.16 mg/dL 0.57-1.25 (test code = 358) GLUCOSE RANDOM 150 mg/dL 70-105 H (BEAKER) (test code = 652) CALCIUM (BEAKER) 9.5 mg/dL 8.4-10.2 (test code = 697) EGFR (BEAKER) (test 63 mL/min/1.73 ESTIMA SANDER GFR IS code = 1092) sq m NOT ACCURATE CREATININE CLEARANCE IN PREDICTING GLOMERULAR FILTRATION RATE . ESTIMATED GFR I S NOT APPLICABLE FOR DIALYSIS PATIEN TS. CBC W/PLT COUNT & AUTO [id number] 05:58:00 Test Item Value Reference Range Interpretation Comments WHITE BLOOD CELL COUNT (BEAKER) 11.6 K/ L 3.5-10.5 H (test code = 775) RED BLOOD CELL COUNT (BEAKER) 4.84 M/ L 4.63-6.08 (test code = 761) HEMOGLOBIN (BEAKER) (test code = 13.4 GM/DL 13.7-17.5 L 410) HEMATOCRIT (BEAKER) (test code = 43.0 % 40.1-51.0 411) MEAN CORPUSCULAR VOLUME (BEAKER) 88.8 fL 79.0-92.2 (test code = 753) MEAN CORPUSCULAR HEMOGLOBIN 27.7 pg 25.7-32.2 (BEAKER) (test code = 751) MEAN CORPUSCULAR HEMOGLOBIN CONC 31.2 GM/DL 32.3-36.5 L (BEAKER) (test code = 752) RED CELL DISTRIBUTION WIDTH 14.6 % 11.6-14.4 H (BEAKER) (test code = 412) PLATELET COUNT (BEAKER) (test 311 K/CU MM 150-450 code = 756) MEAN PLATELET VOLUME (BEAKER) 10.8 fL 9.4-12.4 (test code = 754) NUCLEATED RED BLOOD CELLS 0 /100 WBC 0-0 (BEAKER) (test code = 413) NEUTROPHILS RELATIVE PERCENT 74 % (BEAKER) (test code = 429) LYMPHOCYTES RELATIVE PERCENT 16 % (BEAKER) (test code = 430) MONOCYTES RELATIVE PERCENT 7 % (BEAKER) (test code = 431) EOSINOPHILS RELATIVE PERCENT 1 % (BEAKER) (test code = 432) BASOPHILS RELATIVE PERCENT 0 % (BEAKER) (test code = 437) NEUTROPHILS ABSOLUTE COUNT 8.54 K/ L 1.78-5.38 H (BEAKER) (test code = 670) LYMPHOCYTES ABSOLUTE COUNT 1.84 K/ L 1.32-3.57 (BEAKER) (test code = 414) MONOCYTES ABSOLUTE COUNT (BEAKER) 0.82 K/ L 0.30-0.82 (test code = 415) EOSINOPHILS ABSOLUTE COUNT 0.12 K/ L 0.04-0.54 (BEAKER) (test code = 416) BASOPHILS ABSOLUTE COUNT (BEAKER) 0.05 K/ L 0.01-0.08 (test code = 417) IMMATURE GRANULOCYTES-RELATIVE 2 % 0-1 H PERCENT (BEAKER) (test code = 2801) POCT-GLUCOSE [id number] 17:11:00 Test Item Value Reference Range Interpretation Comments POC-GLUCOSE METER 227 mg/dL 70-110 H TESTED AT [facility] 6720 (BEAKER) (test code = BR[facility] E[facility] 1538) [id number] POCT-GLUCOSE [id number] 12:39:00 Test Item Value Reference Range Interpretation Comments POC-GLUCOSE METER 215 mg/dL 70-110 H TESTED AT [facility] 67 (BEBANNER) (test code = [facility] 1538) [id number] POCT-GLUCOSE [id number] 05:30:00 Test Item Value Reference Range Interpretation Comments POC-GLUCOSE METER 151 mg/dL 70-110 H TESTED AT [facility] 67 ([place]) (test code = [facility] 1538) [id number] 03:57:00 Test Item Value Reference Range Interpretation Comments PHOSPHORUS (BEAKER) (test code = 4.0 mg/dL 2.3-4.7 604) [id number] 03:57:00 Test Item Value Reference Range Interpretation Comments MAGNESIUM (BEAKER) (test code = 2.2 mg/dL 1.6-2.6 627) BASIC METABOLIC [id number] 03:57:00 Test Item Value Reference Range Interpretation Comments SODIUM (BEAKER) 137 meq/L 136-145 (test code = 381) POTASSIUM (BEAKER) 4.4 meq/L 3.5-5.1 (test code = 379) CHLORIDE (BEAKER) 99 meq/L 98-107 (test code = 382) CO2 (BEAKER) (test 27 meq/L 22-29 code = 355) BLOOD UREA NITROGEN 46 mg/dL 7-21 H (BEAKER) (test code = 354) CREATININE (BEAKER) 1.12 mg/dL 0.57-1.25 (test code = 358) GLUCOSE RANDOM 171 mg/dL 70-105 H (BEAKER) (test code = 652) CALCIUM (BEAKER) 9.5 mg/dL 8.4-10.2 (test code = 697) EGFR (BEAKER) (test 65 mL/min/1.73 ESTIMA SANDER GFR IS code = 1092) sq m NOT ACCURATE CREATININE CLEARANCE IN PREDICTING GLOMERULAR FILTRATION RATE . ESTIMATED GFR I S NOT APPLICABLE FOR DIALYSIS PATIEN [id number] 03:47:00 Test Item Value Reference Range Interpretation Comments PARTIAL THROMBOPLASTIN TIME 36.2 seconds 22.5-36.0 H (BEAKER) (test code = 760) CBC W/PLT COUNT & AUTO [id number] 03:42:00 Test Item Value Reference Range Interpretation Comments WHITE BLOOD CELL COUNT (BEAKER) 13.2 K/ L 3.5-10.5 H (test code = 775) RED BLOOD CELL COUNT (BEAKER) 4.98 M/ L 4.63-6.08 (test code = 761) HEMOGLOBIN (BEAKER) (test code = 13.7 GM/DL 13.7-17.5 410) HEMATOCRIT (BEAKER) (test code = 43.5 % 40.1-51.0 411) MEAN CORPUSCULAR VOLUME (BEAKER) 87.3 fL 79.0-92.2 (test code = 753) MEAN CORPUSCULAR HEMOGLOBIN 27.5 pg 25.7-32.2 (BEAKER) (test code = 751) MEAN CORPUSCULAR HEMOGLOBIN CONC 31.5 GM/DL 32.3-36.5 L (BEAKER) (test code = 752) RED CELL DISTRIBUTION WIDTH 14.7 % 11.6-14.4 H (BEAKER) (test code = 412) PLATELET COUNT (BEAKER) (test 326 K/CU MM 150-450 code = 756) MEAN PLATELET VOLUME (BEAKER) 10.7 fL 9.4-12.4 (test code = 754) NUCLEATED RED BLOOD CELLS 0 /100 WBC 0-0 (BEAKER) (test code = 413) NEUTROPHILS RELATIVE PERCENT 80 % (BEAKER) (test code = 429) LYMPHOCYTES RELATIVE PERCENT 11 % (BEAKER) (test code = 430) MONOCYTES RELATIVE PERCENT 7 % (BEAKER) (test code = 431) EOSINOPHILS RELATIVE PERCENT 0 % (BEAKER) (test code = 432) BASOPHILS RELATIVE PERCENT 0 % (BEAKER) (test code = 437) NEUTROPHILS ABSOLUTE COUNT 10.53 K/ L 1.78-5.38 H ([facility]) (test code = 670) LYMPHOCYTES ABSOLUTE COUNT 1.49 K/ L 1.32-3.57 (AKER) (test code = 414) MONOCYTES ABSOLUTE COUNT (BEAKER) 0.92 K/ L 0.30-0.82 H (test code = 415) EOSINOPHILS ABSOLUTE COUNT 0.04 K/ L 0.04-0.54 (AKER) (test code = 416) BASOPHILS ABSOLUTE COUNT (BEAKER) 0.04 K/ L 0.01-0.08 (test code = 417) IMMATURE GRANULOCYTES-RELATIVE 1 % 0-1 PERCENT ([facility]) (test code = 2801) POCT-GLUCOSE [id number] 23:32:00 Test Item Value Reference Range Interpretation Comments POC-GLUCOSE METER 165 mg/dL 70-110 H TESTED AT [place] [address] ([facility]) (test code = [facility] 1538) [id number] 20:47:00 Test Item Value Reference Range Interpretation Comments PARTIAL THROMBOPLASTIN TIME 30.9 seconds 22.5-36.0 ([facility]) (test code = 760) POCT-GLUCOSE [id number] 17:48:00 Test Item Value Reference Range Interpretation Comments POC-GLUCOSE METER 233 mg/dL 70-110 H TESTED AT [place] [address] ([facility]) (test code = [facility] 1538) [id number] POCT-GLUCOSE [id number] 12:37:00 Test Item Value Reference Range Interpretation Comments POC-GLUCOSE METER 167 mg/dL 70-110 H TESTED AT [place] [address] ([facility]) (test code = [facility] 1538) [id number] POCT-GLUCOSE [id number] 07:22:00 Test Item Value Reference Range Interpretation Comments POC-GLUCOSE METER 139 mg/dL 70-110 H TESTED AT [place] [address] ([facility]) (test code = [facility] 1538) [id number] 04:10:00 Test Item Value Reference Range Interpretation Comments PHOSPHORUS ([facility]) (test code = 4.5 mg/dL 2.3-4.7 604) [id number] 04:10:00 Test Item Value Reference Range Interpretation Comments MAGNESIUM (BEAKER) (test code = 2.2 mg/dL 1.6-2.6 627) BASIC METABOLIC [id number] 04:10:00 Test Item Value Reference Range Interpretation Comments SODIUM (BEAKER) 140 meq/L 136-145 (test code = 381) POTASSIUM (BEAKER) 4.4 meq/L 3.5-5.1 (test code = 379) CHLORIDE (BEAKER) 99 meq/L 98-107 (test code = 382) CO2 (BEAKER) (test 30 meq/L 22-29 H code = 355) BLOOD UREA NITROGEN 43 mg/dL 7-21 H (BEAKER) (test code = 354) CREATININE (BEAKER) 1.13 mg/dL 0.57-1.25 (test code = 358) GLUCOSE RANDOM 141 mg/dL 70-105 H (BEAKER) (test code = 652) CALCIUM (BEAKER) 9.8 mg/dL 8.4-10.2 (test code = 697) EGFR (BEAKER) (test 65 mL/min/1.73 ESTIMA SANDER GFR IS code = 1092) sq m NOT ACCURATE CREATININE CLEARANCE IN PREDICTING GLOMERULAR FILTRATION RATE . ESTIMATED GFR I S NOT APPLICABLE FOR DIALYSIS PATIEN TS. CBC W/PLT COUNT & AUTO [id number] 03:50:00 Test Item Value Reference Range Interpretation Comments WHITE BLOOD CELL COUNT (BEAKER) 13.0 K/ L 3.5-10.5 H (test code = 775) RED BLOOD CELL COUNT (BEAKER) 4.87 M/ L 4.63-6.08 (test code = 761) HEMOGLOBIN (BEAKER) (test code = 13.6 GM/DL 13.7-17.5 L 410) HEMATOCRIT (BEAKER) (test code = 42.8 % 40.1-51.0 411) MEAN CORPUSCULAR VOLUME (BEAKER) 87.9 fL 79.0-92.2 (test code = 753) MEAN CORPUSCULAR HEMOGLOBIN 27.9 pg 25.7-32.2 (BEAKER) (test code = 751) MEAN CORPUSCULAR HEMOGLOBIN CONC 31.8 GM/DL 32.3-36.5 L (BEAKER) (test code = 752) RED CELL DISTRIBUTION WIDTH 14.9 % 11.6-14.4 H (BEAKER) (test code = 412) PLATELET COUNT (BEAKER) (test 364 K/CU MM 150-450 code = 756) MEAN PLATELET VOLUME (BEAKER) 10.9 fL 9.4-12.4 (test code = 754) NUCLEATED RED BLOOD CELLS 0 /100 WBC 0-0 (BEAKER) (test code = 413) NEUTROPHILS RELATIVE PERCENT 77 % (BEAKER) (test code = 429) LYMPHOCYTES RELATIVE PERCENT 13 % (BEAKER) (test code = 430) MONOCYTES RELATIVE PERCENT 7 % (BEAKER) (test code = 431) EOSINOPHILS RELATIVE PERCENT 1 % (BEAKER) (test code = 432) BASOPHILS RELATIVE PERCENT 0 % (BEAKER) (test code = 437) NEUTROPHILS ABSOLUTE COUNT 10.07 K/ L 1.78-5.38 H (BEAKER) (test code = 670) LYMPHOCYTES ABSOLUTE COUNT 1.71 K/ L 1.32-3.57 (BEAKER) (test code = 414) MONOCYTES ABSOLUTE COUNT (BEAKER) 0.96 K/ L 0.30-0.82 H (test code = 415) EOSINOPHILS ABSOLUTE COUNT 0.10 K/ L 0.04-0.54 (BEAKER) (test code = 416) BASOPHILS ABSOLUTE COUNT (BEAKER) 0.05 K/ L 0.01-0.08 (test code = 417) IMMATURE GRANULOCYTES-RELATIVE 1 % 0-1 PERCENT (BEAKER) (test code = 2809) POCT-GLUCOSE [id number] 03:50:00 Test Item Value Reference Range Interpretation Comments POC-GLUCOSE METER 170 mg/dL 70-110 H TESTED AT [facility] 6720 ([facility]) (test code = [facility] 1538) [id number] 00:16:00 Test Item Value Reference Range Interpretation Comments PARTIAL THROMBOPLASTIN TIME 31.8 seconds 22.5-36.0 (AKER) (test code = 760) 6 hours after starting heparin infusion and as indicated per sliding scaleFL, ESOPH, SWALLOW FUNCTION, WITH CINE OR [id number] 18:01:00Reason for exam:->CVAFINAL REPORT Modified barium swallow exam with speech pathology service CLINICAL HISTORY: CVA IMPRESSION: Please see the speech pathology service report for details. Barium contrast of multiple consistencies is given to the patient to swallow. Fluoroscopic observation is performedduring swallowing. There is aspiration with all liquids. Fluoro time: 1.2 minutes Number of images: 4 Signed: Francy Chanel Verified Date/Time: 09/19/2018 18:01:02 Reading Location: [facility] B1 [id number] Ortho Consult Reading Room POCT-GLUCOSE [id number] 17:20:00 Test Item Value Reference Range Interpretation Comments POC-GLUCOSE METER 265 mg/dL 70-110 H TESTED AT [facility] 6720 (BEAKER) (test code = [facility] [place] 1538) [address] [id number] 16:49:00 Test Item Value Reference Range Interpretation Comments PARTIAL THROMBOPLASTIN TIME 29.3 seconds 22.5-36.0 (BEAKER) (test code = 760) Prior to initiating heparinCBC W/PLT COUNT & AUTO [id number] 16:45:00 Test Item Value Reference Range Interpretation Comments WHITE BLOOD CELL COUNT (BEAKER) 12.4 K/ L 3.5-10.5 H (test code = 775) RED BLOOD CELL COUNT (BEAKER) 4.72 M/ L 4.63-6.08 (test code = 761) HEMOGLOBIN (BEAKER) (test code = 13.3 GM/DL 13.7-17.5 L 410) HEMATOCRIT (BEAKER) (test code = 41.3 % 40.1-51.0 411) MEAN CORPUSCULAR VOLUME (BEAKER) 87.5 fL 79.0-92.2 (test code = 753) MEAN CORPUSCULAR HEMOGLOBIN 28.2 pg 25.7-32.2 (BEAKER) (test code = 751) MEAN CORPUSCULAR HEMOGLOBIN CONC 32.2 GM/DL 32.3-36.5 L (BEAKER) (test code = 752) RED CELL DISTRIBUTION WIDTH 15.1 % 11.6-14.4 H (BEAKER) (test code = 412) PLATELET COUNT (BEAKER) (test 309 K/CU MM 150-450 code = 756) MEAN PLATELET VOLUME (BEAKER) 10.7 fL 9.4-12.4 (test code = 754) NUCLEATED RED BLOOD CELLS 0 /100 WBC 0-0 (BEAKER) (test code = 413) NEUTROPHILS RELATIVE PERCENT 92 % (BEAKER) (test code = 429) LYMPHOCYTES RELATIVE PERCENT 4 % (BEAKER) (test code = 430) MONOCYTES RELATIVE PERCENT 3 % (BEAKER) (test code = 431) EOSINOPHILS RELATIVE PERCENT 0 % (BEAKER) (test code = 432) BASOPHILS RELATIVE PERCENT 0 % (BEAKER) (test code = 437) NEUTROPHILS ABSOLUTE COUNT 11.36 K/ L 1.78-5.38 H (BEAKER) (test code = 670) LYMPHOCYTES ABSOLUTE COUNT 0.52 K/ L 1.32-3.57 L (BEAKER) (test code = 414) MONOCYTES ABSOLUTE COUNT (BEAKER) 0.38 K/ L 0.30-0.82 (test code = 415) EOSINOPHILS ABSOLUTE COUNT 0.02 K/ L 0.04-0.54 L (BEAKER) (test code = 416) BASOPHILS ABSOLUTE COUNT (BEAKER) 0.03 K/ L 0.01-0.08 (test code = 417) IMMATURE GRANULOCYTES-RELATIVE 1 % 0-1 PERCENT (BEAKER) (test code = 2801) POCT-GLUCOSE [id number] 15:03:00 Test Item Value Reference Range Interpretation Comments POC-GLUCOSE METER 261 mg/dL 70-110 H TESTED AT [place] [address] (BEAKER) (test code = [facility] 1538) [address] POCT-GLUCOSE [id number] 08:35:00 Test Item Value Reference Range Interpretation Comments POC-GLUCOSE METER 266 mg/dL 70-110 H TESTED AT [place] [address] (BEAKER) ([facility] 1538) [address] [id number] 07:15:00 Test Item Value Reference Range Interpretation Comments PHOSPHORUS (BEAKER) (test code = 4.5 mg/dL 2.3-4.7 604) [id number] 07:15:00 Test Item Value Reference Range Interpretation Comments MAGNESIUM (BEAKER) (test code = 2.2 mg/dL 1.6-2.6 627) BASIC METABOLIC [id number] 07:15:00 Test Item Value Reference Range Interpretation Comments SODIUM (BEAKER) 143 meq/L 136-145 (test code = 381) POTASSIUM (BEAKER) 4.4 meq/L 3.5-5.1 (test code = 379) CHLORIDE (BEAKER) 101 meq/L 98-107 (test code = 382) CO2 (BEAKER) (test 31 meq/L 22-29 H code = 355) BLOOD UREA NITROGEN 42 mg/dL 7-21 H (BEAKER) (test code = 354) CREATININE (BEAKER) 1.19 mg/dL 0.57-1.25 (test code = 358) GLUCOSE RANDOM 173 mg/dL 70-105 H (BEAKER) (test code = 652) CALCIUM (BEAKER) 9.9 mg/dL 8.4-10.2 (test code = 697) EGFR (BEAKER) (test 61 mL/min/1.73 ESTIMA SANDER GFR IS code = 1092) sq m NOT ACCURATE CREATININE CLEARANCE IN PREDICTING GLOMERULAR FILTRATION RATE . ESTIMATED GFR I S NOT APPLICABLE FOR DIALYSIS PATIEN TS. CBC W/PLT COUNT & AUTO [id number] 06:58:00 Test Item Value Reference Range Interpretation Comments WHITE BLOOD CELL COUNT (BEAKER) 12.2 K/ L 3.5-10.5 H (test code = 775) RED BLOOD CELL COUNT (BEAKER) 5.12 M/ L 4.63-6.08 (test code = 761) HEMOGLOBIN (BEAKER) (test code = 14.2 GM/DL 13.7-17.5 410) HEMATOCRIT (BEAKER) (test code = 45.9 % 40.1-51.0 411) MEAN CORPUSCULAR VOLUME (BEAKER) 89.6 fL 79.0-92.2 (test code = 753) MEAN CORPUSCULAR HEMOGLOBIN 27.7 pg 25.7-32.2 (BEAKER) (test code = 751) MEAN CORPUSCULAR HEMOGLOBIN CONC 30.9 GM/DL 32.3-36.5 L (BEAKER) (test code = 752) RED CELL DISTRIBUTION WIDTH 15.1 % 11.6-14.4 H (BEAKER) (test code = 412) PLATELET COUNT (BEAKER) (test 311 K/CU MM 150-450 code = 756) MEAN PLATELET VOLUME (BEAKER) 11.0 fL 9.4-12.4 (test code = 754) NUCLEATED RED BLOOD CELLS 0 /100 WBC 0-0 (BEAKER) (test code = 413) NEUTROPHILS RELATIVE PERCENT 81 % (BEAKER) (test code = 429) LYMPHOCYTES RELATIVE PERCENT 10 % (BEAKER) (test code = 430) MONOCYTES RELATIVE PERCENT 7 % (BEAKER) (test code = 431) EOSINOPHILS RELATIVE PERCENT 1 % (BEAKER) (test code = 432) BASOPHILS RELATIVE PERCENT 0 % (BEAKER) (test code = 437) NEUTROPHILS ABSOLUTE COUNT 9.83 K/ L 1.78-5.38 H (BEAKER) (test code = 670) LYMPHOCYTES ABSOLUTE COUNT 1.26 K/ L 1.32-3.57 L (BEAKER) (test code = 414) MONOCYTES ABSOLUTE COUNT (BEAKER) 0.90 K/ L 0.30-0.82 H (test code = 415) EOSINOPHILS ABSOLUTE COUNT 0.11 K/ L 0.04-0.54 (BEAKER) (test code = 416) BASOPHILS ABSOLUTE COUNT (BEAKER) 0.03 K/ L 0.01-0.08 (test code = 417) IMMATURE GRANULOCYTES-RELATIVE 1 % 0-1 PERCENT (BEAKER) (test code = 2801) POCT-GLUCOSE [id number] 23:26:00 Test Item Value Reference Range Interpretation Comments POC-GLUCOSE METER 190 mg/dL 70-110 H TESTED AT [place] [address] (BEAKER) ([facility] = [facility] 1538) [id number] POCT-GLUCOSE [id number] 06:41:00 Test Item Value Reference Range Interpretation Comments POC-GLUCOSE METER 158 mg/dL 70-110 H TESTED AT [facility] 6720 (BEAKER) (test code = [facility] Sean [facility] 1538) [address] [id number] 04:33:00 Test Item Value Reference Range Interpretation Comments PHOSPHORUS (BEAKER) (test code = 4.8 mg/dL 2.3-4.7 H 604) [id number] 04:33:00 Test Item Value Reference Range Interpretation Comments MAGNESIUM (BEAKER) (test code = 2.1 mg/dL 1.6-2.6 627) BASIC METABOLIC [id number] 04:33:00 Test Item Value Reference Range Interpretation Comments SODIUM (BEAKER) 139 meq/L 136-145 (test code = 381) POTASSIUM (BEAKER) 4.2 meq/L 3.5-5.1 (test code = 379) CHLORIDE (BEAKER) 99 meq/L 98-107 (test code = 382) CO2 (BEAKER) (test 28 meq/L 22-29 code = 355) BLOOD UREA NITROGEN 32 mg/dL 7-21 H (BEAKER) (test code = 354) CREATININE (BEAKER) 1.24 mg/dL 0.57-1.25 (test code = 358) GLUCOSE RANDOM 190 mg/dL 70-105 H (BEAKER) (test code = 652) CALCIUM (BEAKER) 9.7 mg/dL 8.4-10.2 (test code = 697) EGFR (BEAKER) (test 58 mL/min/1.73 ESTIMA SANDER GFR IS code = 1092) sq m NOT ACCURATE CREATININE CLEARANCE IN PREDICTING GLOMERULAR FILTRATION RATE . ESTIMATED GFR I S NOT APPLICABLE FOR DIALYSIS PATIEN TS. CBC W/PLT COUNT & AUTO [id number] 04:14:00 Test Item Value Reference Range Interpretation Comments WHITE BLOOD CELL COUNT (BEAKER) 10.9 K/ L 3.5-10.5 H (test code = 775) RED BLOOD CELL COUNT (BEAKER) 4.53 M/ L 4.63-6.08 L (test code = 761) HEMOGLOBIN (BEAKER) (test code = 13.0 GM/DL 13.7-17.5 L 410) HEMATOCRIT (BEAKER) (test code = 39.5 % 40.1-51.0 L 411) MEAN CORPUSCULAR VOLUME (BEAKER) 87.2 fL 79.0-92.2 (test code = 753) MEAN CORPUSCULAR HEMOGLOBIN 28.7 pg 25.7-32.2 (BEAKER) (test code = 751) MEAN CORPUSCULAR HEMOGLOBIN CONC 32.9 GM/DL 32.3-36.5 (BEAKER) (test code = 752) RED CELL DISTRIBUTION WIDTH 15.1 % 11.6-14.4 H (BEAKER) (test code = 412) PLATELET COUNT (BEAKER) (test 252 K/CU MM 150-450 code = 756) MEAN PLATELET VOLUME (BEAKER) 10.5 fL 9.4-12.4 (test code = 754) NUCLEATED RED BLOOD CELLS 0 /100 WBC 0-0 (BEAKER) (test code = 413) NEUTROPHILS RELATIVE PERCENT 84 % (BEAKER) (test code = 429) LYMPHOCYTES RELATIVE PERCENT 8 % (BEAKER) (test code = 430) MONOCYTES RELATIVE PERCENT 7 % (BEAKER) (test code = 431) EOSINOPHILS RELATIVE PERCENT 0 % (BEAKER) (test code = 432) BASOPHILS RELATIVE PERCENT 0 % (BEAKER) (test code = 437) NEUTROPHILS ABSOLUTE COUNT 9.08 K/ L 1.78-5.38 H (BEAKER) (test code = 670) LYMPHOCYTES ABSOLUTE COUNT 0.86 K/ L 1.32-3.57 L (BEAKER) (test code = 414) MONOCYTES ABSOLUTE COUNT (BEAKER) 0.80 K/ L 0.30-0.82 (test code = 415) EOSINOPHILS ABSOLUTE COUNT 0.02 K/ L 0.04-0.54 L (BEAKER) (test code = 416) BASOPHILS ABSOLUTE COUNT (BEAKER) 0.02 K/ L 0.01-0.08 (test code = 417) IMMATURE GRANULOCYTES-RELATIVE 1 % 0-1 PERCENT (BEAKER) (test code = 2801) POCT-GLUCOSE [id number] 00:24:00 Test Item Value Reference Range Interpretation Comments POC-GLUCOSE METER 216 mg/dL 70-110 H TESTED AT [facility] 67 ([facility]) (test code = [facility] 1538) [address] POCT-GLUCOSE [id number] 20:48:00 Test Item Value Reference Range Interpretation Comments POC-GLUCOSE METER 276 mg/dL 70-110 H TESTED AT [facility] 6720 ([facility]) (test code = [facility] 1538) [address] POCT-GLUCOSE [id number] 11:39:00 Test Item Value Reference Range Interpretation Comments POC-GLUCOSE METER 188 mg/dL 70-110 H TESTED AT [facility] 6720 ([facility]) (test code = [facility] 1538) [address] RAD, ABDOMEN/KUB, 1 VIEW [id number] 09:12:00Reason for exam:->Ng tubeFINAL REPORT Abdomen , one view History: Nasogastric tube Comparison:none Findings:Nonobstructive bowel gas pattern. No pneumoperitoneum. Nasogastric tube terminates within the stomach. No definite bowel pneumatosis or portal venous gas. Impression:Nasogastric tube terminates within the stomach. Signed: Jason Mistry MDReport Verified Date/Time: 09/17/2018 09:12:57 Reading Location: [facility] B1 C013X Ortho Consult Reading Room [id number] 07:40:00 Test Item Value Reference Range Interpretation Comments PHOSPHORUS (BEAKER) (test code = 3.9 mg/dL 2.3-4.7 604) [id number] 07:40:00 Test Item Value Reference Range Interpretation Comments MAGNESIUM (BEAKER) (test code = 1.8 mg/dL 1.6-2.6 627) BASIC METABOLIC [id number] 07:40:00 Test Item Value Reference Range Interpretation Comments SODIUM (BEAKER) 140 meq/L 136-145 (test code = 381) POTASSIUM (BEAKER) 3.9 meq/L 3.5-5.1 (test code = 379) CHLORIDE (BEAKER) 101 meq/L 98-107 (test code = 382) CO2 (BEAKER) (test 28 meq/L 22-29 code = 355) BLOOD UREA NITROGEN 23 mg/dL 7-21 H (BEAKER) (test code = 354) CREATININE (BEAKER) 1.12 mg/dL 0.57-1.25 (test code = 358) GLUCOSE RANDOM 168 mg/dL 70-105 H (BEAKER) (test code = 652) CALCIUM (BEAKER) 9.2 mg/dL 8.4-10.2 (test code = 697) EGFR (BEAKER) (test 65 mL/min/1.73 ESTIMA SANDER GFR IS code = 1092) sq m NOT ACCURATE CREATININE CLEARANCE IN PREDICTING GLOMERULAR FILTRATION RATE . ESTIMATED GFR I S NOT APPLICABLE FOR DIALYSIS PATIEN TS. CBC W/PLT COUNT & AUTO [id number] 07:27:00 Test Item Value Reference Range Interpretation Comments WHITE BLOOD CELL COUNT (BEAKER) 8.9 K/ L 3.5-10.5 (test code = 775) RED BLOOD CELL COUNT (BEAKER) 4.22 M/ L 4.63-6.08 L (test code = 761) HEMOGLOBIN (BEAKER) (test code = 12.1 GM/DL 13.7-17.5 L 410) HEMATOCRIT (BEAKER) (test code = 37.3 % 40.1-51.0 L 411) MEAN CORPUSCULAR VOLUME (BEAKER) 88.4 fL 79.0-92.2 (test code = 753) MEAN CORPUSCULAR HEMOGLOBIN 28.7 pg 25.7-32.2 (BEAKER) (test code = 751) MEAN CORPUSCULAR HEMOGLOBIN CONC 32.4 GM/DL 32.3-36.5 (BEAKER) (test code = 752) RED CELL DISTRIBUTION WIDTH 15.3 % 11.6-14.4 H (BEAKER) (test code = 412) PLATELET COUNT (BEAKER) (test 221 K/CU MM 150-450 code = 756) MEAN PLATELET VOLUME (BEAKER) 10.3 fL 9.4-12.4 (test code = 754) NUCLEATED RED BLOOD CELLS 0 /100 WBC 0-0 (BEAKER) (test code = 413) NEUTROPHILS RELATIVE PERCENT 82 % (BEAKER) (test code = 429) LYMPHOCYTES RELATIVE PERCENT 9 % (BEAKER) (test code = 430) MONOCYTES RELATIVE PERCENT 7 % (BEAKER) (test code = 431) EOSINOPHILS RELATIVE PERCENT 2 % (BEAKER) (test code = 432) BASOPHILS RELATIVE PERCENT 0 % (BEAKER) (test code = 437) NEUTROPHILS ABSOLUTE COUNT 7.32 K/ L 1.78-5.38 H (BEAKER) (test code = 670) LYMPHOCYTES ABSOLUTE COUNT 0.78 K/ L 1.32-3.57 L (BEAKER) (test code = 414) MONOCYTES ABSOLUTE COUNT (BEAKER) 0.59 K/ L 0.30-0.82 (test code = 415) EOSINOPHILS ABSOLUTE COUNT 0.16 K/ L 0.04-0.54 (BEAKER) (test code = 416) BASOPHILS ABSOLUTE COUNT (BEAKER) 0.03 K/ L 0.01-0.08 (test code = 417) IMMATURE GRANULOCYTES-RELATIVE 0 % 0-1 PERCENT (BEAKER) (test code = 2801) POCT-GLUCOSE [id number] 06:48:00 Test Item Value Reference Range Interpretation Comments POC-GLUCOSE METER 160 mg/dL 70-110 H TESTED AT [facility] 67[address] (BEAKER) (test code = [place] 1538) [id number] POCT-GLUCOSE [id number] 00:56:00 Test Item Value Reference Range Interpretation Comments POC-GLUCOSE METER 169 mg/dL 70-110 H TESTED AT [facility] 67[address] (RAMSEY) (test code = [place] 1538) [address] [place], ANGIOGRAM, [id number] 17:55:00Reason for exam:->strokeFINAL REPORT DATE: 09/14/2018 ATTENDING: Haroon Montoya MD DIRECTOR OF STUDENT AID: PREOPERATIVE DIAGNOSIS: Acute right middle cerebral artery [...] standard microwire5. Embotrap 5mm x 33mm Stentriever 6. 8Fr Angioseal INDICATIONS:The patient is a 67 year old male with history of HTN, CAD s/p CABG, and CHF who presented to outside hospital with left hemiparesis and slurred speech. He was found to have a right M1 occlusion and transferred for emergent thrombectomy. While the patient was being prepared for the procedure by the team, the indications for the procedure as well as the risks, benefits and alternatives to the procedure were discussed with the patient and his closest relative / sister and a telephone consent was obtained. The risks discussed included but were not limited to stroke, intracranial h emorrhage, injury to the cervical femoral or aortic [...] the puncture site was confirmed, a 8 [place] short sheath was insertedover a [employer] wire and was maintained on heparinized saline flush throughout the remainder of the procedure. Using coaxial technique, a preflushed 5 [place] 125cm diagnostic glide catheter on constant heparinized saline flush was placed through a pre-flushed and pre- prepped 8 [place] Flowgate balloon Guide catheter. The two catheters [...] carotid artery. The diagnostic catheter was removed, andthe balloon guide again back flushed, antegrade flushed and maintained on heparinized flushed throughout remainder the procedure. Then performed intracranial images and identified the occlusion of the right M1. We then inserted a preflushed Velocity microcatheter over a preshaped Synchro standard wireunder roadmap guidance into the intracranial circulation. We then advanced it past the large vessel occlusion. The performed microangiograms through the microcatheter to confirm that the tip of the microcatheter was distal to the large vessel clot. Once this was confirmed, we then inserted and deployed the5 x 33 Embotrap device across the clot. We then waited five minutes for clot integration. Duringthe waiting period, performed and diagnostic angiogram showing adequate flow through the clot filling the distal branches. At five minutes, the flowgate balloon was inflated until it was occlusive in the internal carotid, the museum assistant pulled suction through the lumen of [...] angiogram of the intracranial circulation was performed. The intracranial images showed persistent right M1 occlusion. The microcatheter and microwire were again advanced but through a pre-flushed CAT 6 and advanced distal to the area of occlusion. A micro-run was performed confirming good location distal to the thrombus and the Stentriever was deployed across the clot. After a 5 minute integration period, the CAT 6 was advanced to the face of the clot and vaccuum suction was placed via the penumbra device. When flow arrest was noted in the suction container, we waited 2 minutes, inflated the Flowgate and a second pass was performed in retracting both the Stentriever and the CAT 6 together as a system trapping the clot. Subsequent angiogram showed persistent occlusion, and a third pass was performed in the same manner as the second pass with flowgate flow arrest,local aspiration via the CAT 6 and suction [...] removed and hemostasis achieved with an 8 [place] Angioseal and manual compression. The patient tolerated the procedure well and was present transported from the images read in unchanged neurological status without groin hematoma and with good distal lower extremity pulses. The patient was transferred to the neurological intensive care unit to [...] ulceration or stenosis. RIGHT INTERNAL CAROTID ARTERY (DSA,PA, LATERALx2)Normal distal cervical, petrous, cavernous and supraclinoid internal carotid artery wit h a right M1 MCA segment occlusion from acute thrombus. Post thrombectomy, there is complete resolution of the clot with physiological filling of the distal MCA branches. There are no distal vessel cutoffs but there is delayed filling of the right MCA territory. This this is TICI 2B revascularization.No aneurysms or other vascular lesions are seen. There is no significant atherosclerosis or stenosis. The venous phase demonstrates patent transverse and sigmoid sinuses. IMPRESSION1. Complete occlusion of the right MCA M1 segment. Post- revascularization, there is complete resolution of the intravascular thrombus and roman catholic of flow to the distal MCA branches but with some delayed flow, representing a TICI 2B revascularization. FACULTY ATTESTATION: I, Haroon Montoya M.D., was present for the entirety of the procedure. I performed or directly supervised all aspects of the procedure. I performed all critical aspects of the case. I interpreted the images and reported the results. Signed: Haroon Montoya MDReport Verified Date/Time: 09/16/2018 17:55:16 Reading Location: [place] [address] Neuro Angio Reading Room POCT-GLUCOSE [id number] 17:45:00 Test Item Value Reference Range Interpretation Comments POC-GLUCOSE METER 153 mg/dL 70-110 H TESTED AT [place] [address] ([facility]) (test code = [facility] 1538) [id number] POCT-GLUCOSE [id number] 12:08:00 Test Item Value Reference Range Interpretation Comments POC-GLUCOSE METER 166 mg/dL 70-110 H TESTED AT [place] [address] ([facility]) (test code = [facility] 1538) [address] POCT-GLUCOSE [id number] 06:23:00 Test Item Value Reference Range Interpretation Comments POC-GLUCOSE METER 156 mg/dL 70-110 H TESTED AT [place] [address] ([facility]) (test code = [facility] 1538) [address] [id number] 05:01:00 Test Item Value Reference Range Interpretation Comments PARTIAL THROMBOPLASTIN TIME 32.5 seconds 22.5-36.0 ([facility]) (test code = 760) [id number] 04:20:00 Test Item Value Reference Range Interpretation Comments MAGNESIUM (BEAKER) 2.0 mg/dL 1.6-2.6 Specimen moderately (test code = 627) hemolyzed [id number] 04:20:00 Test Item Value Reference Range Interpretation Comments PHOSPHORUS (BEAKER) 2.9 mg/dL 2.3-4.7 Specimen moderately (test code = 604) hemolyzed BASIC METABOLIC [id number] 04:20:00 Test Item Value Reference Range Interpretation Comments SODIUM (BEAKER) 141 meq/L 136-145 (test code = 381) POTASSIUM (BEAKER) 5.1 meq/L 3.5-5.1 Specimen moderately (test code = 379) hemolyzed CHLORIDE (BEAKER) 110 meq/L 98-107 H (test code = 382) CO2 (BEAKER) (test 22 meq/L 22-29 code = 355) BLOOD UREA NITROGEN 19 mg/dL 7-21 (BEAKER) (test code = 354) CREATININE (BEAKER) 1.04 mg/dL 0.57-1.25 Specimen moderately (test code = 358) hemolyzed GLUCOSE RANDOM 147 mg/dL 70-105 H (BEAKER) (test code = 652) CALCIUM (BEAKER) 8.7 mg/dL 8.4-10.2 (test code = 697) EGFR (BEAKER) (test 71 mL/min/1.73 ESTIMA SANDER GFR IS code = 1092) sq m NOT ACCURATE CREATININE CLEARANCE IN PREDICTING GLOMERULAR FILTRATION RATE . ESTIMATED GFR I S NOT APPLICABLE FOR DIALYSIS PATIEN TS. CBC W/PLT COUNT & AUTO [id number] 04:06:00 Test Item Value Reference Range Interpretation Comments WHITE BLOOD CELL COUNT (BEAKER) 8.3 K/ L 3.5-10.5 (test code = 775) RED BLOOD CELL COUNT (BEAKER) 3.85 M/ L 4.63-6.08 L (test code = 761) HEMOGLOBIN (BEAKER) (test code = 10.8 GM/DL 13.7-17.5 L 410) HEMATOCRIT (BEAKER) (test code = 34.6 % 40.1-51.0 L 411) MEAN CORPUSCULAR VOLUME (BEAKER) 89.9 fL 79.0-92.2 (test code = 753) MEAN CORPUSCULAR HEMOGLOBIN 28.1 pg 25.7-32.2 (BEAKER) (test code = 751) MEAN CORPUSCULAR HEMOGLOBIN CONC 31.2 GM/DL 32.3-36.5 L (BEAKER) (test code = 752) RED CELL DISTRIBUTION WIDTH 15.6 % 11.6-14.4 H (BEAKER) (test code = 412) PLATELET COUNT (BEAKER) (test 196 K/CU MM 150-450 code = 756) MEAN PLATELET VOLUME (BEAKER) 10.6 fL 9.4-12.4 (test code = 754) NUCLEATED RED BLOOD CELLS 0 /100 WBC 0-0 (BEAKER) (test code = 413) NEUTROPHILS RELATIVE PERCENT 85 % (BEAKER) (test code = 429) LYMPHOCYTES RELATIVE PERCENT 8 % (BEAKER) (test code = 430) MONOCYTES RELATIVE PERCENT 5 % (BEAKER) (test code = 431) EOSINOPHILS RELATIVE PERCENT 1 % (BEAKER) (test code = 432) BASOPHILS RELATIVE PERCENT 0 % (BEAKER) (test code = 437) NEUTROPHILS ABSOLUTE COUNT 7.08 K/ L 1.78-5.38 H (BEAKER) (test code = 670) LYMPHOCYTES ABSOLUTE COUNT 0.64 K/ L 1.32-3.57 L (BEAKER) (test code = 414) MONOCYTES ABSOLUTE COUNT (BEAKER) 0.44 K/ L 0.30-0.82 (test code = 415) EOSINOPHILS ABSOLUTE COUNT 0.11 K/ L 0.04-0.54 (BEAKER) (test code = 416) BASOPHILS ABSOLUTE COUNT (BEAKER) 0.03 K/ L 0.01-0.08 (test code = 417) IMMATURE GRANULOCYTES-RELATIVE 0 % 0-1 PERCENT (BEAKER) (test code = 2801) [id number] 03:57:00 Test Item Value Reference Range Interpretation Comments FIBRINOGEN LEVEL (BEAKER) (test 160 mg/dl 225-434 L code = 658) PROTHROMBIN [id number] 03:56:00 Test Item Value Reference Range Interpretation Comments PROTIME (BEAKER) (test code = 15.6 seconds 11.9-14.2 H 759) INR (BEAKER) (test code = 370) 1.3 <=5.9 Effective 07/06/2018: PT Reference Range ChangeNew: 11.9-14.2 Previous: 11.7- 14.7RECOMMENDED COUMADIN/WARFARIN INR THERAPY RANGESSTANDARD DOSE: 2.0-3.0 Includes: PROPHYLAXIS for venous thrombosis, systemic embolization; TREATMENT for venous thrombosis and/or pulmonary embolus.HIGH RISK: Target INR is 2.5-3.5 for patients wiht mechanical heart valves.POCT-GLUCOSE [id number] 00:13:00 Test Item Value Reference Range Interpretation Comments POC-GLUCOSE METER 134 mg/dL 70-110 H TESTED AT [facility] 67[facility] ([facility]) (test code = [facility] 1538) [id number] 18:37:00 Test Item Value Reference Range Interpretation Comments D-DIMER QUANTITATIVE ([facility]) > MG/L FEU <0.50 H (test code = 671) Intended Use: The D-Dimer Assay can be [...] (BNP)2018-09-15 18:04:00 Test Item Value Reference Range Interpretation Comments B-TYPE NATRIURETIC PEPTIDE ([facility]) 864 pg/mL 0-100 H (test code = 700) POCT-GLUCOSE [id number] 18:02:00 Test Item Value Reference Range Interpretation Comments POC-GLUCOSE METER 118 mg/dL 70-110 H TESTED AT [facility] 67[facility] ([facility]) [facility] [id number] 17:57:00 Test Item Value Reference Range Interpretation Comments FIBRINOGEN LEVEL ([facility]) (test 104 mg/dl 225-434 L code = 658) LACTATE DEHYDROGENASE ([facility])2018-09-15 17:56:00 Test Item Value Reference Range Interpretation Comments LACTATE DEHYDROGENASE ([facility]) (test 172 U/L 125-220 code = 635) [id number] 17:52:00 Test Item Value Reference Range Interpretation Comments PARTIAL THROMBOPLASTIN TIME 34.5 seconds 22.5-36.0 ([facility]) (test code = 760) RAD, CHEST, 1 VIEW, NON [id number] 17:39:00Reason for exam:->HFShould this be performed at the bedside?->YesFINAL REPORT Chest dated 09/15/2018 Clinical Information: HF Comment: Heart is enlarged. Pulmonary vasculature is indistinct. Interstitial disease is seen bilaterally suggestive of pulmonary edema. No pleural effusion or pneumothorax is seen. Impression: Congestive failure. Signed: Nik Webster MDReport Verified Date/Time: 09/15/2018 17:39:38 Reading Location: [facility] B1 [id number] Consult Reading Room TROPONIN [id number] 16:44:00 Test Item Value Reference Range Interpretation Comments TROPONIN I ([facility]) (test code = 0.17 ng/mL 0.00-0.03 H 397) Troponin I (TnI) levels must be interpreted [...] acidosis, acute neurological disease, and persistent tachyarrhythmia.PROTHROMBIN [id number] 16:23:00 Test Item Value Reference Range Interpretation Comments PROTIME ([facility]) (test code = 16.8 seconds 11.9-14.2 H 759) INR ([facility]) (test code = 370) 1.4 <=5.9 Effective 07/06/2018: PT Reference Range ChangeNew: 11.9-14.2 Previous: 11.7- 14.7RECOMMENDED COUMADIN/WARFARIN INR THERAPY RANGESSTANDARD DOSE: 2.0-3.0 Includes: PROPHYLAXIS for venous thrombosis, systemic embolization; TREATMENT for venous thrombosis and/or pulmonary embolus.HIGH RISK: Target INR is 2.5-3.5 for patients wiht mechanical heart valves.POCT-GLUCOSE [id number] 12:56:00 Test Item Value Reference Range Interpretation Comments POC-GLUCOSE METER 135 mg/dL 70-110 H TESTED AT [facility] 67 ([employer]) [facility] 1538) [id number] POCT-GLUCOSE [id number] 08:20:00 Test Item Value Reference Range Interpretation Comments POC-GLUCOSE METER 144 mg/dL 70-110 H TESTED AT [facility] 67[facility] ([employer]) (test code = [facility] 1538) [address] POCT-GLUCOSE [id number] 06:08:00 Test Item Value Reference Range Interpretation Comments POC-GLUCOSE METER 162 mg/dL 70-110 H TESTED AT [facility] 6720 (BEAKER) (test code = [facility] 1538) [id number] TROPONIN [id number] 03:48:00 Test Item Value Reference Range Interpretation Comments TROPONIN I (BEAKER) (test code = 0.16 ng/mL 0.00-0.03 H 397) Troponin I (TnI) levels must be interpreted [...] acute neurological disease, and persistent tachyarrhythmia.BASIC METABOLIC [id number] 03:29:00 Test Item Value Reference Range Interpretation Comments SODIUM (BEAKER) 141 meq/L 136-145 (test code = 381) POTASSIUM (BEAKER) 4.4 meq/L 3.5-5.1 (test code = 379) CHLORIDE (BEAKER) 108 meq/L 98-107 H (test code = 382) CO2 (BEAKER) (test 23 meq/L 22-29 code = 355) BLOOD UREA NITROGEN 19 mg/dL 7-21 (BEAKER) (test code = 354) CREATININE (BEAKER) 1.13 mg/dL 0.57-1.25 (test code = 358) GLUCOSE RANDOM 183 mg/dL 70-105 H (BEAKER) (test code = 652) CALCIUM (BEAKER) 8.7 mg/dL 8.4-10.2 (test code = 697) EGFR (BEAKER) (test 65 mL/min/1.73 ESTIMA SANDER GFR IS code = 1092) sq m NOT ACCURATE CREATININE CLEARANCE IN PREDICTING GLOMERULAR FILTRATION RATE . ESTIMATED GFR I S NOT APPLICABLE FOR DIALYSIS PATIEN TS. CBC W/PLT COUNT & AUTO [id number] 03:08:00 Test Item Value Reference Range Interpretation Comments WHITE BLOOD CELL COUNT (BEAKER) 10.5 K/ L 3.5-10.5 (test code = 775) RED BLOOD CELL COUNT (BEAKER) 3.94 M/ L 4.63-6.08 L (test code = 761) HEMOGLOBIN (BEAKER) (test code = 11.2 GM/DL 13.7-17.5 L 410) HEMATOCRIT (BEAKER) (test code = 34.7 % 40.1-51.0 L 411) MEAN CORPUSCULAR VOLUME (BEAKER) 88.1 fL 79.0-92.2 (test code = 753) MEAN CORPUSCULAR HEMOGLOBIN 28.4 pg 25.7-32.2 (BEAKER) (test code = 751) MEAN CORPUSCULAR HEMOGLOBIN CONC 32.3 GM/DL 32.3-36.5 (BEAKER) (test code = 752) RED CELL DISTRIBUTION WIDTH 15.5 % 11.6-14.4 H (BEAKER) (test code = 412) PLATELET COUNT (BEAKER) (test 192 K/CU MM 150-450 code = 756) MEAN PLATELET VOLUME (BEAKER) 10.1 fL 9.4-12.4 (test code = 754) NUCLEATED RED BLOOD CELLS 0 /100 WBC 0-0 (BEAKER) (test code = 413) NEUTROPHILS RELATIVE PERCENT 90 % (BEAKER) (test code = 429) LYMPHOCYTES RELATIVE PERCENT 5 % (BEAKER) (test code = 430) MONOCYTES RELATIVE PERCENT 5 % (BEAKER) (test code = 431) EOSINOPHILS RELATIVE PERCENT 0 % (BEAKER) (test code = 432) BASOPHILS RELATIVE PERCENT 0 % (BEAKER) (test code = 437) NEUTROPHILS ABSOLUTE COUNT 9.51 K/ L 1.78-5.38 H (BEAKER) (test code = 670) LYMPHOCYTES ABSOLUTE COUNT 0.47 K/ L 1.32-3.57 L (BEAKER) (test code = 414) MONOCYTES ABSOLUTE COUNT (BEAKER) 0.48 K/ L 0.30-0.82 (test code = 415) EOSINOPHILS ABSOLUTE COUNT 0.00 K/ L 0.04-0.54 L (BEAKER) (test code = 416) BASOPHILS ABSOLUTE COUNT (BEAKER) 0.01 K/ L 0.01-0.08 (test code = 417) IMMATURE GRANULOCYTES-RELATIVE 1 % 0-1 PERCENT (BEAKER) (test code = 2801) MR, BRAIN, WITHOUT [id number] 02:57:00Reason for exam:->strokeFINAL REPORT Exam: MRI brain [...] There are mild white matter microvascular ischemic changes. There are chronic bilateral cerebellar infarcts. There is no extra-axial collection, hydrocephalus or herniation. The skull base flow-voids are seen in keeping with their patency. The visualized paranasal s inuses and mastoid air cells are clear. The orbits, sella and parasellar regions are unremarkable. The craniocervical junction is normal. Impression:Acute right MCA territory infarct with hemorrhagic transformation.Mild white matter microvascular ischemic changes.Chronic bilateral cerebellar infarcts.Signed: Greta Hurtado MDReport Verified Date/Time: 09/15/2018 02:57:30 POCT-GLUCOSE METER 2018-09-15 00:23:00 Test Item Value Reference Range Interpretation Comments POC-GLUCOSE METER 127 mg/dL 70-110 H TESTED AT [facility] 67[address] ([facility]) (test code = [facility] 1538) [id number] TROPONIN [id number] 17:00:00 Test Item Value Reference Range Interpretation Comments TROPONIN I ([facility]) (test code = 0.16 ng/mL 0.00-0.03 H 397) Troponin I (TnI) levels must be interpreted [...] acidosis, acute neurological disease, and persistent tachyarrhythmia.POCT-GLUCOSE [id number] 16:29:00 Test Item Value Reference Range Interpretation Comments POC-GLUCOSE METER 204 mg/dL 70-110 H TESTED AT [facility] 67[address] ([facility]) (test code = [facility] 1538) [id number] POCT-GLUCOSE [id number] 14:11:00 Test Item Value Reference Range Interpretation Comments POC-GLUCOSE METER 230 mg/dL 70-110 H TESTED AT [facility] 67[address] ([facility]) (test code = [facility] 1538) [id number] TROPONIN [id number] 11:44:00 Test Item Value Reference Range Interpretation Comments TROPONIN I ([facility]) (test code = 0.11 ng/mL 0.00-0.03 H 397) Troponin I (TnI) levels must be interpreted [...] failure, acidosis, acute neurological disease, and persistent tachyarrhythmia.[id number] 11:42:00 Test Item Value Reference Range Interpretation Comments RPR SCREEN ([facility]) (test code = Nonreactive Nonreactive 420) HEMOGLOBIN [id number] 06:56:00 Test Item Value Reference Range Interpretation Comments HEMOGLOBIN A1C (AKER) (test code = 6.3 % 4.3-6.1 H 368) C-REACTIVE [id number] 04:38:00 Test Item Value Reference Range Interpretation Comments C-REACTIVE PROTEIN (AKER) (test 19.08 mg/dL 0.00-0.50 H code = 676) FastingLIPID [id number] 04:09:00 Test Item Value Reference Range Interpretation Comments TRIGLYCERIDES (AKER) (test code = 101 mg/dL 540) CHOLESTEROL (BEAKER) (test code = 240 mg/dL 631) HDL CHOLESTEROL (BEAKER) (test code 46 mg/dL = 976) LDL CHOLESTEROL CALCULATED ([facility]) 174 mg/dL (test code = 633) Triglyceride Reference Range: Low Risk <150 Borderline 150-199 High Risk 200- 499 Very High Risk >=500Cholesterol Reference Range: Low Risk <200 Borderline 200-239 High Risk >240HDL Cholesterol Reference Range: Low Risk >=60 High Risk <40LDL Cholesterol Reference Range: Optimal <100 Near Optimal 100-129 Borderline 130-159 High 160-189 Very High >=190 FastingBASIC METABOLIC [id number] 04:09:00 Test Item Value Reference Range Interpretation Comments SODIUM (BEAKER) 136 meq/L 136-145 (test code = 381) POTASSIUM (BEAKER) 4.5 meq/L 3.5-5.1 (test code = 379) CHLORIDE (BEAKER) 102 meq/L 98-107 (test code = 382) CO2 (BEAKER) (test 20 meq/L 22-29 L code = 355) BLOOD UREA NITROGEN 18 mg/dL 7-21 (BEAKER) (test code = 354) CREATININE (BEAKER) 1.08 mg/dL 0.57-1.25 (test code = 358) GLUCOSE RANDOM 186 mg/dL 70-105 H (BEAKER) (test code = 652) CALCIUM (BEAKER) 8.9 mg/dL 8.4-10.2 (test code = 697) EGFR (BEAKER) (test 68 mL/min/1.73 ESTIMA SANDER GFR IS code = 1092) sq m NOT ACCURATE CREATININE CLEARANCE IN PREDICTING GLOMERULAR FILTRATION RATE . ESTIMATED GFR I S NOT APPLICABLE FOR DIALYSIS PATIEN TS. FastingHEPATIC FUNCTION [id number] 04:09:00 Test Item Value Reference Range Interpretation Comments TOTAL PROTEIN (BEAKER) (test code = 7.2 gm/dL 6.0-8.3 770) ALBUMIN (BEAKER) (test code = 1145) 3.9 g/dL 3.5-5.0 BILIRUBIN TOTAL (BEAKER) (test code 1.1 mg/dL 0.2-1.2 = 377) BILIRUBIN DIRECT (BEAKER) (test 0.4 mg/dL 0.1-0.5 code = 706) ALKALINE PHOSPHATASE (BEAKER) (test 67 U/L 40-150 code = 346) AST (SGOT) (BEAKER) (test code = 18 U/L 5-34 353) ALT (SGPT) (BEAKER) (test code = 9 U/L 6-55 347) FastingTSH/FREE T4 IF [id number] 03:38:00 Test Item Value Reference Range Interpretation Comments THYROID STIMULATING HORMONE 1.68 uIU/mL 0.35-4.94 (BEAKER) (test code = 772) VITAMIN B12 AND [id number] 03:38:00 Test Item Value Reference Range Interpretation Comments VITAMIN B12 (BEAKER) (test code = 853 pg/mL 213-816 H 774) FOLATE (BEAKER) (test code = 362) 12.9 ng/mL >=7.0 [id number] 03:05:00 Test Item Value Reference Range Interpretation Comments PROTIME (BEAKER) (test code = 23.8 seconds 11.9-14.2 H 759) INR (BEAKER) (test code = 370) 2.3 <=5.9 PARTIAL THROMBOPLASTIN TIME 70.1 seconds 22.5-36.0 H (BEAKER) (test code = 760) Effective 07/06/2018: PT Reference Range ChangeNew: 11.9-14.2 Previous: 11.7- 14.7RECOMMENDED COUMADIN/WARFARIN INR THERAPY RANGESSTANDARD DOSE: 2.0-3.0 Includes: PROPHYLAXIS for venous thrombosis, systemic embolization; TREATMENT for venous thrombosis and/or pulmonary embolus.HIGH RISK: Target INR is 2.5-3.5 for patients wiht mechanical heart valves.PROTHROMBIN [id number] 03:04:00 Test Item Value Reference Range Interpretation Comments PROTIME (BEAKER) (test code = 23.8 seconds 11.9-14.2 H 759) INR (BEAKER) (test code = 370) 2.3 <=5.9 Effective 07/06/2018: PT Reference Range ChangeNew: 11.9-14.2 Previous: 11.7- 14.7RECOMMENDED COUMADIN/WARFARIN INR THERAPY RANGESSTANDARD DOSE: 2.0-3.0 Includes: PROPHYLAXIS for venous thrombosis, systemic embolization; TREATMENT for venous thrombosis and/or pulmonary embolus.HIGH RISK: Target INR is 2.5-3.5 for patients wiht mechanical heart valves.CBC W/PLT COUNT & AUTO [id number] 03:02:00 Test Item Value Reference Range Interpretation Comments WHITE BLOOD CELL COUNT (BEAKER) 10.3 K/ L 3.5-10.5 (test code = 775) RED BLOOD CELL COUNT (BEAKER) 4.73 M/ L 4.63-6.08 (test code = 761) HEMOGLOBIN (BEAKER) (test code = 13.4 GM/DL 13.7-17.5 L 410) HEMATOCRIT (BEAKER) (test code = 42.8 % 40.1-51.0 411) MEAN CORPUSCULAR VOLUME (BEAKER) 90.5 fL 79.0-92.2 (test code = 753) MEAN CORPUSCULAR HEMOGLOBIN 28.3 pg 25.7-32.2 (BEAKER) (test code = 751) MEAN CORPUSCULAR HEMOGLOBIN CONC 31.3 GM/DL 32.3-36.5 L (BEAKER) (test code = 752) RED CELL DISTRIBUTION WIDTH 15.1 % 11.6-14.4 H (BEAKER) (test code = 412) PLATELET COUNT (BEAKER) (test 196 K/CU MM 150-450 code = 756) MEAN PLATELET VOLUME (BEAKER) 10.2 fL 9.4-12.4 (test code = 754) NUCLEATED RED BLOOD CELLS 0 /100 WBC 0-0 (BEAKER) (test code = 413) NEUTROPHILS RELATIVE PERCENT 95 % (BEAKER) (test code = 429) LYMPHOCYTES RELATIVE PERCENT 2 % (BEAKER) (test code = 430) MONOCYTES RELATIVE PERCENT 2 % (BEAKER) (test code = 431) EOSINOPHILS RELATIVE PERCENT 0 % (BEAKER) (test code = 432) BASOPHILS RELATIVE PERCENT 0 % (BEAKER) (test code = 437) NEUTROPHILS ABSOLUTE COUNT 9.85 K/ L 1.78-5.38 H (BEAKER) (test code = 670) LYMPHOCYTES ABSOLUTE COUNT 0.22 K/ L 1.32-3.57 L (BEAKER) (test code = 414) MONOCYTES ABSOLUTE COUNT (BEAKER) 0.18 K/ L 0.30-0.82 L (test code = 415) EOSINOPHILS ABSOLUTE COUNT 0.01 K/ L 0.04-0.54 L (BEAKER) (test code = 416) BASOPHILS ABSOLUTE COUNT (BEAKER) 0.02 K/ L 0.01-0.08 (test code = 417) IMMATURE GRANULOCYTES-RELATIVE 1 % 0-1 PERCENT (BEAKER) (test code = 2801) CT, CTANGIO [id number] 02:29:00Reason for exam:->strokeFINAL REPORT CLINICAL HISTORY: StrokeIschemic Stroke Evaluation TECHNIQUE: Initially, noncontrast head CT images were performed. For the CT perfusion, 4 thick sections acquired forapproximately 100 acquisitions during rapid bolus administration of contrast. Time to Start, Time toPeak, Mean Transit Time, Cerebral Blood Flow and Cerebral Blood Volume maps were created.Contiguous contrast-enhanced axial images through the neck followed by axial images through the head with coronal and sagittal reformations to assess the arterial circulation. 3-D reconstructions were performed using a volume rendered technique separately on a workstation. This exam was performed according to the departmental dose optimization program which includes automated exposure control, adjustment of the mA and/or kV according to the patient size, and/or use of an iterative reconstruction technique. COMPARISON: None FINDINGS: Acute right MCA territory infarction with loss of cartagena-white matter differentiation in the right frontal opercular region and right basal ganglia. No intracranial hemorrhage is identified. Intracranial vascular calcifications. Generalized parenchymal volume loss with commensurateenlargement of CSF spaces and ventricles. There is no hydrocephalus or midline shift. The skull is intact. Abrupt occlusion of the right MCA at the junction of M1/M2 with good collateral flow in the distal M2 segments. The left MCA is patent. The bilateral anterior cerebral arteries are widely patent.Anterior communicating artery is patent. Bilateral posterior cerebral [...] internal carotid artery there is possible approximately 20% stenosis of the origin of the left internal [...] right temporal, frontal, parietal lobes and basal ganglia.CBV:Decreased cerebral blood volume within the right frontal operculum/basal ganglia consistent with acute infarction.TTP: Moderate area of increased time to peak within the right MCA territory involving the right temporal, frontal, parietal lobes and basal ganglia. IMPRESSION: Acute infarction in the right frontal operculum involving the right basal ganglia with associated decreased cerebral blood volume. No acute intracranial images identified. Large area of mismatch perfusion defect in the right MCA territory consistent with large penumbra/perfusion abnormality. Abrupt occlusion of the right distal M1/proximal M2 segment of the middle cerebral artery with collateral flow seen in the distal vessels.Evaluation of the cervical CTA is limited secondary to motion artifact. The origins of bilateral vertebral arteries are not well seen. Otherwise the distal cervical vertebral arteries are widely patent. Approximately 20% stenosis of the origin of left internal carotid artery by NASCET criteria. Interstitial pulmonary edema. NOTIFICATION: The significant results of this study were discussed with and acknowledged by in house neurology resident, by telephone on 09/14/2018 2:00 AM. Signed: Miryam Paulson Verified Date/Time: 09/14/2018 02:29:06 [facility] 2018-09-14 02:29:00Reason for exam:->Ischemic Stroke EvaluationFINAL REPORT CLINICAL HISTORY: StrokeIschemic Stroke Evaluation TECHNIQUE: Initially, noncontrast head CT images were performed. For the CT perfusion, 4 thick sections acquired forapproximately 100 acquisitions during rapid bolus administration of contrast. Time to Start, Time toPeak, Mean Transit Time, Cerebral Blood Flow and Cerebral Blood Volume maps were created.Contiguous contrast-enhanced axial images through the neck followed by axial images through the head with coronal and sagittal reformations to assess the arterial circulation. 3-D reconstructions were performed using a volume rendered technique separately on a workstation. This exam was performed according to the departmental dose optimization program which includes automated exposure control, adjustment of the mA and/or kV according to the patient size, and/or use of an iterative reconstruction technique. COMPARISON: None FINDINGS: Acute right MCA territory infarction with loss of cartagena-white matter differentiation in the right frontal opercular region and right basal ganglia. No intracranial hemorrhage is identified. Intracranial vascular calcifications. Generalized parenchymal volume loss with commensurateenlargement of CSF spaces and ventricles. There is no hydrocephalus or midline shift. The skull is intact. Abrupt occlusion of the right MCA at the junction of M1/M2 with good collateral flow in the distal M2 segments. The left MCA is patent. The bilateral anterior cerebral arteries are widely patent.Anterior communicating artery is patent. Bilateral posterior cerebral [...] internal carotid artery there is possible approximately 20% stenosis of the origin of the left internal [...] right temporal, frontal, parietal lobes and basal ganglia.CBV:Decreased cerebral blood volume within the right frontal operculum/basal ganglia consistent with acute infarction.TTP: Moderate area of increased time to peak within the right MCA territory involving the right temporal, frontal, parietal lobes and basal ganglia. IMPRESSION: Acute infarction in the right frontal operculum involving the right basal ganglia with associated decreased cerebral blood volume. No acute intracranial images identified. Large area of mismatch perfusion defect in the right MCA territory consistent with large penumbra/perfusion abnormality. Abrupt occlusion of the right distal M1/proximal M2 segment of the middle cerebral artery with collateral flow seen in the distal vessels.Evaluation of the cervical CTA is limited secondary to motion artifact. The origins of bilateral vertebral arteries are not well seen. Otherwise the distal cervical vertebral arteries are widely patent. Approximately 20% stenosis of the origin of left internal carotid artery by NASCET criteria. Interstitial pulmonary edema. NOTIFICATION: The significant results of this study were discussed with and acknowledged by in house neurology resident, by telephone on 09/14/2018 2:00 AM. Signed: Miryam Paulsonephusam Verified Date/Time: 09/14/2018 02:29:06 [facility], CEREBRAL PERFUSION [id number] 02:29:00Reason for exam:->Symptom onset less than 6 hours and NIHSS 6 or greaterFINAL REPORT CLINICAL HISTORY: StrokeIschemic Stroke Evaluation TECHNIQUE: Initially, noncontrast head CT images were performed. For the CT perfusion, 4 thick sections acquired for approximately 100 acquisitions during rapid bolus administration of contrast. Time to Start, Time toPeak, Mean Transit Time, Cerebral Blood Flow and Cerebral Blood Volume maps were created.Contiguous contrast-enhanced axial images through the neck followed by axial images through the head with coronal and sagittal reformations to assess the arterial circulation. 3-D reconstructions were performed using a volume rendered technique separately on a workstation. This exam was performed according to thedepartmental dose optimization program which includes automated exposure control, adjustment of the mA and/or kV according to the patient size, and/or use of an iterative reconstruction technique. CALIN RISON: None FINDINGS: Acute right MCA territory infarction with loss of cartagena- white matter differentiation in the right frontal opercular region and right basal ganglia. No intracranial hemorrhage is identified. Intracranial vascular calcifications. Generalized parenchymal volume loss with commensurateenlargement of CSF spaces and ventricles. There is no hydrocephalus or midline shift. The skull is intact. Abrupt occlusion of the right MCA at the junction of M1/M2 with good collateral flow in the distal M2 segments. The left MCA is patent. The bilateral anterior cerebral arteries are widely patent.Anterior communicating artery is patent. Bilateral posterior cerebral arteries are patent. The director [employer] communicating arteries are not identified on current [...] internal carotid artery there is possible approximately 20% stenosis of the origin of the left internal carotid artery by NASCET criteria. Atherosclerotic calcifications of the right carotid bifurcation however no flow limiting stenosis.The origins of the bilateralvertebral arteries are not well evaluated secondary to [...] Moderate area of increased mean transit time withinthe right MCA territory involving the right temporal, frontal, parietal lobes and basal ganglia.CBV:Decreased cerebral blood volume within the right frontal operculum/basal ganglia consistent with acute infarction.TTP: Moderate area of increased time to peak within the right MCA territory involving the right temporal, frontal, parietal lobes and basal ganglia. IMPRESSION: Acute infarction in the right frontal operculum involving the right basal ganglia with associated decreased cerebral blood volume. No acute intracranial images identified. Large area of mismatch perfusion defect in the right MCA territory consistent with large penumbra/perfusion abnormality. Abrupt occlusion of the right distal M1/proximal M2 segment of the middle cerebral artery with collateral flow seen in the distal vessels.Evaluation of the cervical CTA is limited secondary to motion artifact. The origins of bilateral vertebral arteries are not well seen. Otherwise the distal cervical vertebral arteries are widely patent. Approximately 20% stenosis of the origin of left internal carotid artery by NASCET criteria. Interstitial pulmonary edema. NOTIFICATION: The significant results of this study were discussed with and acknowledged by in house neurology resident, by telephone on 09/14/2018 2:00 AM. Signed: Miryam Paulson Verified Date/Time: 09/14/2018 02:29:06 "
[2022-07-15 16:39] LABS: Absolute Lymphocytes (CBC) 0.5 K/uL (0.7-4.9); Hematocrit 44.6 % (39.6-49.0); Lymphocytes % 10.6 % (15.3-44.8); MCV 90.5 fL (80-100); MPV 8.5 fL (7.6-11.3); RBC Red Blood Cell Count 4.92 M/uL (4.33-5.43)
[2022-07-15 16:45] LABS: Protime INR 1.05
--- NOTE | 2022-07-15 17:01 | RAD REPORT ---
[facility] 4[facility]44 pm CLINICAL HISTORY: syncope COMPARISON: Chest Single View dated 05/03/2022; Chest Single View dated 05/19/2019; Chest Single View dated 09/13/2018; CHEST SINGLE VIEW dated 03/11/2015Chest Single View dated 05/03/2022; Chest Single View dated 05/19/2019; Chest Single View dated 09/13/2018; CHEST SINGLE VIEW dated 03/11/2015 TECHNIQUE: Portable AP view of the chest. FINDINGS: The lungs are clear. No pneumothorax or effusion. The cardiomediastinal contours are unre markable. Left chest wall pacer/AICD in place. IMPRESSION: No acute cardiopulmonary process.
[2022-07-15 17:06] LABS: Albumin 3.9 g/dL (3.4-5.0); Bilirubin Direct 0.3 mg/dL (0-0.2); Bilirubin Indirect, Calculated 0.6 mg/dL (0.2-0.8); Bilirubin Total 0.9 mg/dL (0.2-1.0); Magnesium 1.9 mg/dL (1.6-2.4); Protein, Total 7.2 g/dL (6.4-8.2)
[2022-07-15 17:11] LABS: Troponin High Sensitivity 1259.1 pg/mL (<58.9)
--- NOTE | 2022-07-15 17:14 | EDPHYS ---
Physician Documentation [facility] Name: Lamin Fitzpatrick III Age: 71 yrs Sex: Male : 1950 Arrival Date: 07/15/2022 Time: 15:49 Bed 26 Private MD: ED Physician Ramon Cain HPI: 07/15 16:04 This 71 yrs old Male presents to ER via EMS with complaints of generalized weakness. ms3 16:04 71-year-old male with past medical history of cardiac arrest, stroke presents via [address] [facility] for generalized weakness. EMS notes on their arrival patient was sitting with his head below his knees and alert. EMS started IV fluids prior to arrival. Patient states he was discharged from [facility] yesterday due to his defibrillator firing. Patient states his defibrillator has been firing for 2 weeks. Patient denies pain or symptoms at this time.. Historical: - Allergies: 16:03 Allopurinol; eh3 16:03 Alteplase; eh3 16:03 Colchicine; eh3 - Home Meds: 16:03 acetaminophen 650 mg Oral TbER every 8 hours for Pain [Active]; aspirin 81 mg Oral chew eh3 1 tab once daily [Active]; aspirin 325 mg Oral tab 1 tab Every other day [Active]; atorvastatin 10 mg Oral tab once daily [Active]; carvedilol Oral 1 tab 2 times per day [Active]; colchicine 0.6 mg Oral cap 1 cap once daily [Active]; Dulcolax (bisacodyl) 5 mg Oral TbEC twice a day [Active]; Eliquis 5 mg Oral tab 2 times per day [Active]; ezetimibe Oral 10 mg once daily [Active]; Glucosamine 1500mg Oral twice a day [Active]; metoprolol tartrate 12.5MG Oral tab 2 times per day [Active]; omeprazole 20 mg Oral cpDR once daily [Active]; Milk of Magnesia 400 mg/5 mL Oral susp 30 mL once daily [Active]; - PMHx: 16:03 Atrial fibrillation; CAD; CHF; Chronic pain from gout; CVA; Gout; eh3 - PSHx: 16:03 pacemaker; eh3 - Immunization history:: Adult Immunizations up to date. - Social history:: Smoking status: unknown. ROS: 16:04 Constitutional: Negative for fever, and chills. ENT: Negative for injury, pain, and ms3 discharge, Neck: Negative for injury, pain, and swelling. 16:04 Respiratory: Negative for shortness of breath, cough, wheezing, and pleuritic chest pain, Abdomen/GI: Negative for abdominal pain, nausea, vomiting, diarrhea, and constipation, MS/Extremity: Negative for injury and deformity, Skin: Negative for injury, rash, and discoloration. 16:04 Cardiovascular: Positive for Defibrillator firing. 16:04 All other systems are negative. Exam: 16:04 Constitutional: This is a well developed, well nourished patient who is awake, alert, ms3 and in no acute distress. Head/Face: Normocephalic, atraumatic. Neck: Trachea midline, no cervical lymphadenopathy. Supple, full range of motion without nuchal rigidity, or vertebral point tenderness. No Meningismus. Chest/axilla: Normal chest wall appearance and motion. Nontender with no deformity. Cardiovascular: Regular rate and rhythm with a normal S1 and S2. No gallops, murmurs, or rubs. Normal PMI, no JVD. No pulse deficits. Respiratory: Lungs have equal breath sounds bilaterally, clear to auscultation and percussion. No rales, rhonchi or wheezes noted. No increased work of breathing, no retractions or nasal flaring. Abdomen/GI: Soft, non-tender, with normal bowel sounds. No distension or tympany. No guarding or rebound. No evidence of tenderness throughout. Skin: Warm, dry with normal turgor. Normal color with no rashes, no lesions, and no evidence of cellulitis. 16:04 Musculoskeletal/extremity: Left UE paralysis- patient states 2/2 stroke. 17:00 ECG was reviewed by the Attending Physician. ms3 Vital Signs: 16:01 BP 148 / 81; Pulse 86; Resp 18; Temp 98.4(O); Pulse Ox 97% on R/A; Weight 77.11 kg; 3 Height 6 ft. 0 in. ; 16:30 BP 153 / 74; Pulse 83; Resp 18; Pulse Ox 96% on R/A; eh3 17:00 BP 149 / 83; Pulse 82; Resp 16; Pulse Ox 96% on R/A; eh3 18:00 BP 155 / 85; Pulse 91; Resp 18; Pulse Ox 98% on R/A; 3 19:00 BP 132 / 114; Pulse 80; Resp 18; Pulse Ox 100% on R/A; 3 19:30 BP 118 / 80; Pulse 78; Resp 18; Pulse Ox 100% on R/A; 3 16:01 Body Mass Index 23.06 (77.11 kg, 182.88 cm) [facility] MDM: 15:59 Patient medically screened. in3 16:04 Differential Diagnosis Electrolyte abnormality vs CA vs Anemia . ms3 17:13 Data reviewed: vital signs, nurses notes, lab test result(s), EKG, radiologic studies, [facility] and as a result, I will transfer. Consideration of Admission/Observation will transfer patient at his request. I considered the following discharge prescriptions or medication management in the emergency department Medications were administered in the Emergency Department. See MAR. Independent interpretation of the following test(s) in the Emergency Department playground monitor: rate is 86 beats/min, Rhythm is paced rhythm with no ectopy, Interpretation: normal rate, paced. Historians other than the Patient: EMS: [facility]. Counseling: I had a detailed discussion with the patient and/or guardian regarding: the historical points, exam findings, and any diagnostic results supporting the discharge/admit diagnosis, lab results, radiology results, the need to transfer to another facility, patient request. 18:32 ED course: Discussed case with Hospitalist, Dr Daniels, at [place] [id number] and he accepts patient.. 18:43 ED course: Patient transferred to [facility] at patient request.. in3 07/15 16:00 Order name: Basic Metabolic Panel; Complete Time: 17:16 [facility] 07/15 16:00 Order name: CBC with Diff; Complete Time: 17:00 [facility] 07/15 16:00 Order name: Hepatic Function; Complete Time: 17:16 [facility] 07/15 16:00 Order name: Magnesium; Complete Time: 17:16 in3 07/15 16:00 Order name: Protime (+inr); Complete Time: 17:00 in3 07/15 16:00 Order name: Ptt, Activated; Complete Time: 17:00 [facility] 07/15 16:00 Order name: Troponin High Sensitivity; Complete Time: 17:16 [facility] 07/15 16:00 Order name: Chest Single View XRAY; Complete Time: 17:06 ms3 07/15 16:00 Order name: EKG; Complete Time: 16:01 ms3 07/15 16:00 Order name: Cardiac monitoring; Complete Time: 16:01 ms3 07/15 16:00 Order name: EKG - Nurse/Tech; Complete Time: 16:35 ms3 07/15 16:00 Order name: IV Saline Lock; Complete Time: 16:01 ms3 07/15 16:00 Order name: Labs collected and sent; Complete Time: 16:22 ms3 07/15 16:00 Order name: NPO; Complete Time: 16:01 ms3 07/15 16:00 Order name: O2 Per Protocol; Complete Time: 16:01 ms3 07/15 16:00 Order name: O2 Sat Monitoring; Complete Time: 16: ms3 EC:00 Rate is 81 beats/min. Rhythm is regular. MA interval is normal. QRS interval is ms3 prolonged. Clinical impression: Paced. Interpreted by me. Reviewed by me. Administered Medications: 17:45 Drug: Enoxaparin Sub-Q 1 mg/kg Route: Sub-Q; Site: left lower abdomen; [facility] 18:45 Follow up: Response: No adverse reaction 3 Disposition Summary: 07/15/22 17:13 Transfer Ordered Transfer [facility] Reason: Higher level of care ms3 Condition: Stable ms3 Problem: new ms3 Symptoms: are unchanged ms3 Accepting Physician: (07/15/22 19:57) 3 Diagnosis - Subsequent non-ST elevation (NSTEMI) myocardial infarction ms3 - Muscle weakness (generalized) ms3 Forms: - Medication Reconciliation Form ms3 - SBAR form ms3 Signatures: Dispatcher [employer] EDMS Ramon Cain DO DO ms3 Michelle Montiel, RN RN 3 Corrections: (The following items were deleted from the chart) 18:36 18:32 ED course: Discussed case with Hospitalist at [facility] and they ms3 accept patient.. ms3 19:57 17:13 in3 3
--- NOTE | 2022-07-15 17:14 | ER ---
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 Coronavirus screen: Vaccine status: Patient reports receiving the 2nd dose of the covid vaccine. Ebola Screen: No symptoms or risks identified at this time. Initial Sepsis Screen: Does the patient meet any 2 criteria? No. Patient's initial sepsis screen is negative. Does the patient have a suspected source of infection? No. Patient's initial sepsis screen is negative. Risk Assessment: Do you want to hurt yourself or someone else? Patient reports no desire to harm self or others. Onset of symptoms was July 15, 2022. 16:01 Method Of Arrival: EMS: [place] [address] 16:01 Acuity: JODIE 2 eh3 Triage Assessment: 16:03 General: Appears in no apparent distress. uncomfortable, Behavior is agitated. Pain: eh3 Denies pain. EENT: No deficits noted. Neuro: Level of Consciousness is awake, alert, obeys commands, Oriented to person, place, time, situation, Speech is normal, Pupils are PERRLA. Neuro: Reports dizziness, weakness since this morning. Cardiovascular: Capillary refill < 3 seconds Patient's skin is warm and dry. Rhythm is A-V sequential pacer. Respiratory: Airway is patent Respiratory effort is even, unlabored, Respiratory pattern is regular, symmetrical. GI: Abdomen is round non-distended. : No signs and/or symptoms were reported regarding the genitourinary system. Derm: Skin is pink, warm \T\ dry. Musculoskeletal: No signs and/or symptoms reported regarding the musculoskeletal system. Historical: - Allergies: 16:03 Allopurinol; eh3 16:03 Alteplase; eh3 16:03 Colchicine; eh3 - Home Meds: 16:03 acetaminophen 650 mg Oral TbER every 8 hours for Pain [Active]; aspirin 81 mg Oral chew eh3 1 tab once daily [Active]; aspirin 325 mg Oral tab 1 tab Every other day [Active]; atorvastatin 10 mg Oral tab once daily [Active]; carvedilol Oral 1 tab 2 times per day [Active]; colchicine 0.6 mg Oral cap 1 cap once daily [Active]; Dulcolax (bisacodyl) 5 mg Oral TbEC twice a day [Active]; Eliquis 5 mg Oral tab 2 times per day [Active]; ezetimibe Oral 10 mg once daily [Active]; Glucosamine 1500mg Oral twice a day [Active]; metoprolol tartrate 12.5MG Oral tab 2 times per day [Active]; omeprazole 20 mg Oral cpDR once daily [Active]; Milk of Magnesia 400 mg/5 mL Oral susp 30 mL once daily [Active]; - PMHx: 16:03 Atrial fibrillation; CAD; CHF; Chronic pain from gout; CVA; Gout; eh3 - PSHx: 16:03 pacemaker; eh3 - Immunization history:: Adult Immunizations up to date. - Social history:: Smoking status: unknown. Screenin:01 [facility] ED Fall Risk Assessment (Adult) Score/Fall Risk Level 0 - 2 = Low Risk. Abuse eh3 screen: Denies threats or abuse. Denies injuries from another. Nutritional screening: No deficits noted. Tuberculosis screening: No symptoms or risk factors identified. Assessment: 16:01 Reassessment: No changes from previously documented assessment. See triage assessment. eh3 17:00 Reassessment: Patient appears in no apparent distress at this time. Patient and/or 3 family updated on plan of care and expected duration. Pain level reassessed. Patient is alert, oriented x 3, equal unlabored respirations, skin warm/dry/pink. 18:00 Reassessment: Patient appears in no apparent distress at this time. Patient and/or 3 family updated on plan of care and expected duration. Pain level reassessed. Patient is alert, oriented x 3, equal unlabored respirations, skin warm/dry/pink. 19:00 Reassessment: Patient appears in no apparent distress at this time. Patient and/or 3 family updated on plan of care and expected duration. Pain level reassessed. Patient is alert, oriented x 3, equal unlabored respirations, skin warm/dry/pink. 19:30 Reassessment: Nurse to nurse report received by Joan at [facility]. 3 Vital Signs: 16:01 BP 148 / 81; Pulse 86; Resp 18; Temp 98.4(O); Pulse Ox 97% on R/A; Weight 77.11 kg; eh3 Height 6 ft. 0 in. ; 16:30 BP 153 / 74; Pulse 83; Resp 18; Pulse Ox 96% on R/A; eh3 17:00 BP 149 / 83; Pulse 82; Resp 16; Pulse Ox 96% on R/A; eh3 18:00 BP 155 / 85; Pulse 91; Resp 18; Pulse Ox 98% on R/A; eh3 19:00 BP 132 / 114; Pulse 80; Resp 18; Pulse Ox 100% on R/A; eh3 19:30 BP 118 / 80; Pulse 78; Resp 18; Pulse Ox 100% on R/A; eh3 16:01 Body Mass Index 23.06 (77.11 kg, 182.88 cm) [facility] ED Course: 15:58 Patient arrived in ED. iw 15:59 Ramon Cain DO is Attending Physician. ms3 16:01 Michelle Montiel, RN is Primary Nurse. 3 16:01 Patient has correct armband on for positive identification. Bed in low position. Call [facility] light in reach. Side rails up X2. Client placed on continuous cardiac and pulse oximetry monitoring. NIBP monitoring applied. 16:01 Maintain EMS IV. Dressing intact. Good blood return noted. Site clean \T\ dry. Gauge \T\ 3 site: 18g RFA. 16:03 Triage completed. 3 16:03 Arm band placed on. 3 16:46 Chest Single View XRAY In Process Unspecified. EDMS 17:40 initiated transfer to [facility]. bd 18:48 pt accepted in transfer to [facility] by dr Daniels, admin approval given by jammie Martinez. 19:40 [facility] contacted. [facility] 19:56 No provider procedures requiring assistance completed. Patient transferred, IV remains [address] Administered Medications: 17:45 Drug: Enoxaparin Sub-Q 1 mg/kg Route: Sub-Q; Site: left lower abdomen; 3 18:45 Follow up: Response: No adverse reaction eh3 Medication: 19:57 VIS not applicable for this client. eh3 Outcome: 17:13 ER care complete, transfer ordered by MD. ms3 19:57 Transferred by ground EMS to [facility], Transfer form completed. 3 19:57 Condition: stable 19:57 Instructed on the need for transfer. 19:57 Patient left the ED. 3 Signatures: Dispatcher [employer] EDMS Sharon Thomas Irene, RN RN iw Ramon Cain, DO ms3 Michelle Montiel RN RN eh3 Lisa Peters [facility]
[2022-07-15] MEDS ORDERED: ENOXAPARIN 80 MG/0.8 ML SQ ONE (17:46)
[2022-07-15] MEDS ORDERED: ASPIRIN 81 MG CHEWABLE TABLET ONE (19:57)
[2022-07-15 20:51] VITALS: TEMP 98.4
[2022-07-15 20:55] VITALS: O2SAT 100
[2022-07-15 20:57] VITALS: BP 118/80
--- NOTE | 2022-07-17 14:51 | EKG ---
Test Date: 2022-07-15 Test Time: 16:50:20 Housekeeper Cleaning Cooking: RONNIE MEASUREMENT RESULTS: Intervals: Rate: 80 MA: 146 QRSD: 162 QT: 450 QTc: 519 [place]: P: 74 MA: 146 QRS: 184 T: 26 INTERPRETIVE STATEMENTS: Electronic ventricular pacemaker Compared to ECG 05/03/2022 13:33:21 No significant changes Electronically Signed On 07-17-22 14:45:04 CDT by Blayne Blanco
--- NOTE | 2022-07-17 14:51 | EKG ---
Test Date: 2022-07-15 Test Time: 16:50:51 Loop Cutter: RONNIE MEASUREMENT RESULTS: Intervals: Rate: 81 VA: 138 QRSD: 170 QT: 456 QTc: 529 [place]: P: 74 VA: 138 QRS: 244 T: 30 INTERPRETIVE STATEMENTS: Electronic ventricular pacemaker Compared to ECG 07/15/2022 16:50:20 No significant changes Electronically Signed On 07-17-22 14:45:03 CDT by Blayne Blanco
== END 2022-07-15 19:57 | disposition short-term general hospital (02) ==
LOC: ER 15:49
DX: I22.2 Subsequent non-ST elevation (NSTEMI) myocardial infarction (principal); M62.81 Muscle weakness (generalized); Z86.74 Personal history of sudden cardiac arrest; Z88.8 Allergy status to other drugs, medicaments and biological substances; I48.91 Unspecified atrial fibrillation; I50.9 Heart failure, unspecified; I63.9 Cerebral infarction, unspecified; T82.118A Breakdown (mechanical) of other cardiac electronic device, initial encounter
CPT/HCPCS: 36415; 71045; 80048; 80076; 83735; 84484; 85025; 85610; 85730; 93005; 96372; 99285

== ENCOUNTER 2022-08-05 10:17 | Emergency (ER) | payer OTHER ==
--- OUTSIDE RECORDS SUMMARY | 2022-08-05 10:39 | XMS REPORT | Continuity of Care Document ---
:1950 Author Organization [facility] t Address [address] [place] [address] [address] [place] [address] Care Team Providers Name Role Phone No, Pcp [facility] Primary Care Physician Unavailable DESTINY SANDY Attending Clinician Unavailable SHIRA BRANCH Attending Clinician Unavailable SHIRA BRANCH Attending Clinician Unavailable SANJUANA FIORE Attending Clinician Unavailable SANJUANA FIORE Attending Clinician Unavailable JUNIOR TUCKER Attending Clinician Unavailable Junior Tucker Attending Clinician Adrien Norris Attending Clinician MICHELE MERAZ Attending Clinician Unavailable Bereket WHYTE, Sarai Nichols Attending Clinician Unavailable Dino Baker MD Attending Clinician Jim MELENDEZ, Logan Quezada Attending Clinician Michele Meraz MD Attending Clinician DINO BAKER Attending Clinician Unavailable Lab, Ang - Db Attending Clinician Unavailable Doctor Unassigned, [place] Attending Clinician Unavailable Destiny Sandy MD Attending Clinician Candelaria MELENDEZ, Dylan Kimble Attending Clinician [phone] CYNTHIA, ISABELLA ESCALONA Attending Clinician Unavailable Cynthia TAYLOR, Isabella Escalona Attending Clinician [phone], [facility] Attending Clinician Unavailable Radha MELENDEZ, Burton Attending Clinician BURTON GARCIA Attending Clinician Unavailable Dirk KEARNEYP, Anil Attending Clinician ANIL STACY Attending Clinician Unavailable Citlaly David RN Attending Clinician Unavailable Leila MELENDEZ, Moreno Corcoran Attending Clinician Rufus Serrano Attending Clinician CHELO BARBA Attending Clinician Unavailable Jameson MELENDEZ, Chelo Attending Clinician Kayla KEARNEYP, Henrry Attending Clinician Arden Ch Attending Clinician ARDEN PILLAI Attending Clinician Unavailable Kody KEARNEYP, Karmen Attending Clinician Zuri Avalos Attending Clinician ZURI MAO Attending Clinician Unavailable Jude Sutton Attending Clinician JUDE DESIR Attending Clinician Unavailable Nik Vargas MD Attending Clinician NIK VARGAS Attending Clinician Unavailable MORENO DEE Attending Clinician Unavailable Mariela Petit Attending Clinician Pat Dee MD Attending Clinician PAT DEE Attending Clinician Unavailable [facility] Attending Clinician AMANDA BUTLER Attending Clinician Unavailable Chepe Dubois DO Attending Clinician ERIC AVINA Attending Clinician Unavailable CHEPE DUBOIS Attending Clinician Unavailable JESUS ARCHER Attending Clinician Unavailable ZENY QUICK Attending Clinician Unavailable RADHA LAWSON Attending Clinician Unavailable ADRIEN NORRIS Admitting Clinician Unavailable Adrien Norris Admitting Clinician Logan Fernandez MD Admitting Clinician LOGAN FERNANDEZ Admitting Clinician Unavailable MICHELE MERAZ Admitting Clinician Unavailable Michele Meraz MD Admitting Clinician DESTINY SANDY Admitting Clinician Unavailable ZENY QUICK Admitting Clinician Unavailable RADHA LAWSON Admitting Clinician Unavailable Payers Payer Name Policy Type Policy Number Effective Date Expiration Date S ource [facility] WELLMED [id number] 2021 00:00:00 WELLMED/[facility] DUAL [id number] 2021 COMP HMO D SNP 00:00:00 [facility] STAR [id number] 2022 PLUS 00:00:00 MEDICAID [facility] [id number] 2019 00:00:00 Problems Condition Condition Condition Status Onset Resolution Last Treating Co mments Source Name Details Category Date Date Treatment Clinician Date NSTEMI NSTEMI Diagnosis Active 2022-07-17 M emoria Active 07-15 07:30:00 l 07/15/2022 00:00: Benigno knox [address] NSTEMI, NSTEMI, Diagnosis Active 2022-07-30 Memoria AICD, CP, AICD, CP, 07-15 21:49:00 l PRE-SYNCOP PRE-SYNCOP 00:00: He abeann E, AMS, E, AMS, 00 CAD, CAD, Active 07/15/2022 [facility] Paranoia Paranoia Disease Active Unive rs 6-03 ity of 00:00: [place] 00 Medical Branch LBBB (left LBBB (left Disease Active Overview : Univers bundle bundle 2-22 Formattin ity of branch branch 00:00: g of this [place] block) block) 00 note Medical might be Branch different from the original. Added automatic ally from request for surgery [id number] PAF PAF Disease Active Univers (paroxysma (paroxysma 03-02 it y of l atrial l atrial 00:00: [place] fibrillati fibrillati 00 Me dical on) on) Branch Folliculit Folliculit Disease Active U ángelers is is 1-25 ity of 00:00: [place] Medical Branch Abrasion Abrasion Disease Active Unive [...] in 2019. Hyperbilir Hyperbilir Disease Active U americo ubinemia ubinemia 1-24 ity of 00:00: [place] 00 Medical Branch Prediabete Prediabete Disease Active 2019- U americo s s 2-27 ity of 00:00: [place] Medical Branch Left Left Disease Active 2019- Univers hemiplegia hemiplegia 2-21 it y of 00:00: [place] 00 Medical Branch Coronary Coronary Disease Active 2019-0 Unive rs artery artery 5-05 ity of disease disease 00:00: [place] involving involving 00 Medi ralph alturas alturas Branch coronary coronary artery of artery of alturas alturas heart with heart with angina angina pectoris pectoris Chronic Chronic Disease Active 2020- Univers 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 00:00: [place] failure failure 00 Medical Branch Coronary Coronary Disease Active 2019-0 Unive rs artery artery 5-05 ity of disease disease 00:00: [place] involving involving 00 Medi ralph alturas alturas Branch coronary coronary artery of artery of alturas alturas heart with heart with angina angina pectoris pectoris Essential Essential Disease Active 2020- Uni vers hypertensi hypertensi 5-05 it y of on on 00:00: [place] 00 Medical Branch Chronic Chronic Disease Active 2020-0 Univers gout of gout of 5-05 ity of multiple multiple 00:00: [place] sites sites 00 Medical Branch Hyperchole Hyperchole Disease Active 2020-0 U americo sterolemia sterolemia 5-05 it y of 00:00: [place] 00 Medical Branch Unspecifie Unspecifie Disease Active 2019- U americo d combined d combined 9-06 it y of systolic systolic 00:00: [place] (congestiv (congestiv 00 Me dical e) and e) and Branch diastolic diastolic (congestiv (congestiv e) heart e) heart failure failure History of History of Disease Active U nivers ischemic ischemic 09-14 ity of stroke stroke 00:00: [place] 00 Medical Branch THIRD THIRD Diagnosis Active 2018-09-14 Mem oria LIBERTARIAN LIBERTARIAN 09-14 14:59:00 l BILLING BILLING 00:00: [place] Active 00 09/14/2018 [place] [facility] Acute Acute Disease Recurre [facility] ischemic ischemic nce 09-14 [facility] stroke stroke 00:00: Medical 00 Center Received Received Disease [facility] tissue 09[facility]14 [facility] plasminoge plasminoge 00:00: Me dical n n 00 Center activator activator (t-PA) (t-PA) less than less than 24 hours 24 hours prior to prior to arrival arrival Chronic Chronic Problem Active 2022-07-27 Me moria systolic systolic 09:44:29 l heart heart [place] failure failure (disorder) (disorder) Active Problem 07/27/2022 [facility] NON-ST NON-ST Diagnosis Active 2022-07-30 Me moria ELEVATION ELEVATION 21:49:00 l (NSTEMI) (NSTEMI) Benigno knox MYOCARDIAL MYOCARDIAL INF INF Active [facility] D72.818 - D72.818 - Diagnosis Active 2021-12-15 Memoria OTHER OTHER 11:42:00 l DECREASED DECREASED Herm francy WHITE WHITE BLOOD CE BLOOD CE Active [facility] ENCNTR FOR ENCNTR Diagnosis Active 2022-07-30 Memoria ADJUST AND FOR ADJUST 21:49:00 l MGMT OF AND MGMT [place] AUTOMATIC OF AUTOMATIC Active [facility] CHEST CHEST Diagnosis Active 2022-07-30 Mem oria PAIN, PAIN, 21:49:00 l UNSPECIFIE UNSPECIFIE He rmann D D Active [facility] SINGLE SINGLE Diagnosis Active 2022-07-17 Me moria LIVEBORN LIVEBORN 15:34:00 l INFANT, , [place] DELIVERED DELIVERED BY ABIGAIL BY ABIGAIL Active [facility] Non-ST Non-ST Problem 2022-07-27 Antelmo mateusz elevation elevation 09:44:29 l (NSTEMI) (NSTEMI) Benigno knox myocardial myocardial infarction infarction 3 [facility] Allergies, Adverse Reactions, Alerts Allergy Allergy Status Severity Reaction(s) Onset Inactive Treating Comm ents Source Name Type Date Date Clinician SHELLFIS DRUG Active Med Unknown-Cmnt 2021-02 Un marcie H INGREDI 0-10 ity of DERIVED 00:00: [place] 00 Medical Branch Shellfis Drug Active Unknown - 2021-02 Unive rs h Allergy See comments 0-10 [...] 00 Medical Branch COLCHICI DRUG Active Other-Cmnt 0 Univ ers NE INGREDI 7-20 ity of 00:00: [place] 00 Medical Branch Allopuri Propensi Active Other - See 0 Kidney U nivers nol ty to comments 7-20 function ity of adverse 00:00: [place] reaction 00 Medical s Branch Colchici Propensi Active Other - See 0 Kidney U nivers ne ty to comments [...] s Branch Products IODINE Drug Active Unknown-Cmnt 0 Univ ers AND Class 1-25 ity of IODIDE 00:00: [place] CONTAINI 00 Medical NG Branch PRODUCTS Iodine Propensi Active Unknown - Unive rs And ty to See comments 1-25 ity of Iodide adverse 00:00: [place] Containi reaction 00 Medica l ng s Branch Products Alteplas Propensi Active Other (See Pt does C [facility] e ty to Comments) 09-14 not [facility] adverse 00:00: recall Medical reaction 00 Center s ALTEPLAS DRUG Active Unknown-Cmnt Un marcie E INGREDI 09-14 ity of 00:00: [place] 00 Medical Branch allopuri allopuri Active Memori a nol nol l [place] colchici colchici Active Memori a ne ne l [place] Family History Family Member Diagnosis Comments Start Date Stop Date Source Other Gout [facility] Social History Social Habit Start Date Stop Date Quantity Comments Source History SDOH Social Unive rsity of Connections [facility] Med ical Together Branch History SDOH Social Unive rsity of Connections [facility] Medical Branch History SDOH Social Unive rsity of Connections [place] Medical Membership Branch History SDOH Social Unive rsity of Connections [place] Medical Meetings Branch Social History 2022-07-16 2022-07-16 [facility] sánchez 02:22:42 02:22:42 History SDOH Social 2022-07-13 2022-07-13 5 Unive rsity of Connections Phone 00:00:00 00:00:00 [place] M edical Branch History SDOH Social 2022-07-13 2022-07-13 7 Unive rsity of Connections Living 00:00:00 00:00:00 [place] Medical Branch History SDOH 2022-07-13 2022-07-13 4 University o f Physical Activity 00:00:00 00:00:00 [place] M edical DPW Branch History SDOH 2022-07-13 2022-07-13 3 University o f Physical Activity 00:00:00 00:00:00 [place] M edical MPS Branch History SDOH 2022-07-13 2022-07-13 5 University o f Financial 00:00:00 00:00:00 [place] Medical Branch History SDOH Food 2022-07-13 2022-07-13 1 Univers ity of Worry 00:00:00 00:00:00 [place] Medical Branch History SDOH Food 2022-07-13 2022-07-13 1 Univers ity of Scarcity 00:00:00 00:00:00 [place] Medical Branch History [facility] 2022-07-13 2022-07-13 2 University o f Transport Med 00:00:00 00:00:00 [place] Medic al Branch History [facility] 2022-07-13 2022-07-13 2 University o f Transport Non-Med 00:00:00 00:00:00 [place] M edical Branch History [facility] 2022-07-13 2022-07-13 2 University o f Housing Unable to 00:00:00 00:00:00 [place] M edical Pay Branch History [facility] 2022-07-13 2022-07-13 1 University o f Housing Places 00:00:00 00:00:00 [facility] ralph Lived Branch History [facility] 2022-07-13 2022-07-13 2 University o f Housing Homeless 00:00:00 00:00:00 [place] Me dical Last Year Branch Tobacco use and 2022-07-11 2022-07-11 Smokeless Universit y of exposure 00:00:00 00:00:00 tobacco non-user [facility] dical Branch Exposure to 2022-06-15 2022-06-25 Not sure [facility] SARS-CoV-2 (event) 00:00:00 14:15:00 [facility] Alcohol intake 2018-09-20 2018-09-20 [facility] (finding) History [facility] 2018-09-14 2018-09-[address] [facility] Alcohol Frequency 00:00:00 00:00:00 Medical Center History [facility] 2018-09-14 2018-09-[address] [facility] Alcohol Std Drinks 00:00:00 00:00:00 Medica l Center History [facility] 2018-09-14 2018-09-[address] [facility] Alcohol Binge 00:00:00 00:00:[address] Sex Assigned At [address] [facility] 00:[facility] Smoking Status Start Date Stop Date Source Never smoked tobacco [facility] Medications Ordered Filled Start Stop Current Ordering Indication Dosage Frequency Signature Comments Components Source Medication Medication Date Date Medication? Clinician (SIG) Name Name atorcalvinclaribel Yes 80 mg = 2 M emoria n 40 mg 6-13 tab, PO, l oral tablet 16:10: Bedtime, # [place] 00 60 tab, 1 Refill(s), Pharmacy: [facility] #[id number], 182.88, cm, 07/16/22 18:26:00 CDT, Height, 75, kg, 07/16/22 18:26:00 CDT, Weight QUEtiapine Yes 50 mg = 2 Me moria 25 mg oral 6-13 tab, PO, l tablet 16:10: Bedtime, # Taisha nn 00 60 tab, 1 Refill(s), Pharmacy: [facility] #[id number], 182.88, cm, 07/16/22 18:26:00 CDT, Height, 75, kg, 07/16/22 18:26:00 CDT, Weight SEROquel No Notes: Memoria 6-13 (Same as: l 02:00: SEROquel) [place] 00 Crestor No 10 mg, 1 Memori a 6-11 tab, l 02:00: Route: PO, [place] 00 Drug form: TAB, Bedtime, Dosing Weight 75, kg, Start date: 07/18/22 21:00:00 CDT, Duration: 30 day, Stop date: 08/16/22 21:00:00 CDT ezetimibe No Notes: Memori a 6-10 (Same as: l 22:00: Zetia) [place] 00 aspirin 81 Yes 81 mg = 1 Me moria mg tablet, 6-10 tab, PO, l chewable 14:56: Daily, 0 [place] nn 00 Refill(s) Eliquis No Notes: Memoria 6-10 Same as: l 02:00: Eliquis [place] 00 potassium No /= 14 Memoria chloride 20 6-09 Eritrean, l mEq oral 14:17: may [place] tablet, 00 dissolve extended each 20 release mEq tablet (KCL) in 4 oz of water. Allow about 2 minutes for the tablets to disintegra te. Stir before giving to prepare slurry and administer . Please exclude patient's with feeding tube less than 14 Eritrean (Dobhoff, J-tube, etc) and pediatric and patients. magnesium No Notes: Memori a oxide 07-17 (Same as: l 14:17: Mag-Ox [place] 00 400) Magnesium oxide 318nk=991g g elemental magnesium Dose=____m g magnesium oxide (___mg elemental magnesium) atorvastati No Notes: Antelmo mateusz n 07-17 (Same as: l 02:00: Lipitor) [place] 00 trazodone Yes 50 mg = 1 Mem oria 50 mg oral 08 tab, PO, 0 l tablet 18:57: Refill(s) Benigno n 00 metoprolol Yes 25 mg = 1 Me moria tartrate 25 -08 tab, PO, l mg oral 18:56: BID, 0 [place] tablet 00 Refill(s) ezetimibe Yes 10 mg = 1 Mem oria 10 mg oral 08 tab, PO, l tablet 18:56: Daily, 0 [place] 00 Refill(s) Crestor 10 Yes 10 mg = 1 Me moria mg oral 08 tab, PO, l tablet 18:56: Bedtime, 0 Ta[place] nn 00 Refill(s) Eliquis 5 Yes 5 mg = 1 Antelmo mateusz mg oral 08 tab, PO, l tablet 18:55: BID, 0 [place] 00 Refill(s) Metoprolol No Notes: Memor ia Succinate 07-16 (Same as: l ER 25 mg 16:57: Toprol XL) Her becerril oral 00 Do Not tablet, Crush extended release enoxaparin No Notes: Memor ia 07-16 Nurse to l 13:00: ensure [place] documentat ion of patient education per anticoagul ation policy. (Same as: Lovenox) nitroglycer No Notes: Antelmo mateusz in [place] Tab 07-16 (Same l 03:42: as:Nitroqu [place] 00 ick, Nitrostat) "Do Not Crush" Sublingual tablet Tylenol No Notes: Do Memor ia 07-16 not exceed l 03:42: 4 gm/day. [place] 00 (Same as: Tylenol) [place] 5/325 No Notes: Antelmo mateusz oral tablet 6-08 (Same as: l 03:42: [place] 00 325/5) Do not exceed 4gm/day of acetaminop hen. morphine No 2 mg, 1 Memori a Sulfate 6-08 mL, Route: l 03:42: IVP, Drug form: SOLN, Q4H, Dosing Weight 75, kg, PRN Pain Score 7-10, Start date: 07/15/22 22:42:00 CDT, Duration: 30 day, Stop date: 08/14/22 22:41:00 CDT, 0 Zofran No Notes: Memoria 6-08 (Same as: l 03:42: Zofran) [place] 00 MEDICATION WASTE Product Size: 4 mg Product Wasted: ___ mg docusate-se No Notes: Antelmo mateusz nna 50 6-08 (Same as l mg-8.6 mg 03:42: Senokot-S) He rmann oral tablet 00 Equiv. to Alicja-Colac e. Dulcolax No Notes: Memoria Laxative 6-08 (Same As: l 03:42: Dulcolax, Correctol) (Do Not Crush) "Do Not Crush" MiraLax No Notes: Memoria 6-08 Dissolve l 03:42: in 8 oz of water or juice. (Same as: Miralax) lactulose No Notes: Memori a 10 g/15 mL 6-08 (Same l oral syrup 03:42: as:Chronul H erm ac) labetalol No Notes: Memori a 6-08 (Same as: l 03:42: Normodyne, Trandate) Push over 2 minutes Give bolus over 2-3 minutes. melatonin No Notes: Memori a 6-08 (Same as: l 03:42: Melatonin) trazodone No Notes: Memori a 6-08 (Same As: l 03:42: Desyrel) Tessalon No Notes: Memoria Perles 6-08 (Same As: l 03:42: Tessalon [place] 00 Perles) "Do Not Crush" dextrometho No Notes: Antelmo mateusz rphan-guaiF 6-08 (dextromet l ENesin 20 03:42: horphan-gu He rmann mg-200 00 aifenesin mg/10 mL 10-100mg/5 oral liquid ml 10 ml oral SOLN ud) (Same as: Robitussin DM) Benadryl No Notes: Memoria 6-08 (Same as: l 03:42: Benadryl) albuterol-i No Notes: Antelmo mateusz pratropium -08 (Same as: l 2.5-0.5 mg 03:42: Duoneb) solution simethicone No Notes: Antelmo mateusz 6-08 (Same as: l 03:42: Mylicon) aspirin 81 No Notes: Memor ia mg tablet, 08 Take with l chewable 03:41: food. KCL 10 mEq 2022-0 Yes 10meq Take 1 Univ ers tablet 6-06 tablet by ity of 17:03: mouth in [address] and 1 tablet in the evening. docusate 2023-0 Yes 100mg Take 1 Univer s 100 mg 6-06 capsule by ity of capsule 17:03: mouth in [place] [address] the [facility] morning. Branch KCL 10 mEq 3-0 Yes 10meq Take 1 Univ ers tablet 6-06 tablet by ity of 17:03: mouth in [address] Branch and 1 tablet in the evening. docusate 2023-0 Yes 100mg Take 1 Univer s 100 mg 6-06 capsule by ity of capsule 17:03: mouth in [place] [address] the [facility] morning. Branch KCL 10 mEq 3-0 Yes 10meq Take 1 Univ ers tablet 6-06 tablet by ity of 17:03: mouth in [address] Branch and 1 tablet in the evening. docusate 2023-0 Yes 100mg Take 1 Univer s 100 mg 6-06 capsule by ity of capsule 17:03: mouth in [place] [address] the [facility] morning. Branch KCL 10 mEq 3-0 Yes 10meq Take 1 Univ ers tablet 6-06 tablet by ity of 17:03: mouth in [address] and 1 tablet in the evening. docusate 2023-0 Yes 100mg Take 1 Univer s 100 mg 6-06 capsule by ity of capsule 17:03: mouth in [place] [address] the [facility] morning. [place] KCL 10 mEq 3-0 Yes 10meq Take 1 Univ ers tablet 6-06 tablet by ity of 17:03: mouth in [address] and 1 tablet in the evening. docusate 2023-0 Yes 100mg Take 1 Univer s 100 mg 6-06 capsule by ity of capsule 17:03: mouth in [place] [address] the [facility] morning. [place] KCL 10 mEq 3-0 Yes 10meq Take 1 Univ ers tablet 6-06 tablet by ity of 17:03: mouth in [address] and 1 tablet in the evening. docusate 3-0 Yes 100mg Take 1 Univer s 100 mg 6-06 capsule by ity of capsule 17:03: mouth in [place] [address] the [facility] morning. [place] KCL 10 mEq 2022-0 Yes 10meq Take 1 Univ ers tablet 6-06 tablet by ity of 17:03: mouth in [address] and 1 tablet in the evening. docusate 3-0 Yes 100mg Take 1 Univer s 100 mg 6-06 capsule by ity of capsule 17:03: mouth in [place] [address] the [facility] morning. [place] apixaban Yes 5mg 5 mg, Univers (ELIQUIS) 07-13 Oral, BID, ity of tablet 5 mg 13:00: First dose [place] 00 on Wed [facility] 07/13/22 at [place] 0800, Until Discontinu ed, Routine
Indicatio ns: Non-Valvul ar Atrial Fibrillati on magnesium 2022-2022- No 4g 4 g, IV Univ ers sulfate in 07-13 Piggyback, it y of water 4 12:30: 14:[address] [place] [address] gram/50 mL 00 :00 mL/hr Medical (8 %) IV Administer Branc h Piggyback 4 over 120 g Minutes, ONCE, 1 dose, On [facility] 07/13/22 at 0730, Routine KCL 2022-0 2022- No 40meq 40 mEq, Univers (KLOR-CON 07-13- Oral, ity of M20) tablet 12:30: 14:00 ONCE, 1 [place] 40 mEq 00 :00 dose, On Medical 07/13/22 Branch at 0730, Routine metoprolol 2022-0 Yes 25mg 25 mg, Unive rs tartrate 07-13 Oral, BID, ity o f (LOPRESSOR) 01:00: First dose [place] tablet 25 00 on [facility] mg 07/12/22 at Branch 2000, Until Discontinu ed, Routine LORazepam 2022-0 2023- No .5mg 0.5 mg, Univ ers (ATIVAN) 07-12- Slow IV ity of injection 16:30: 17:02 Push, [place] 0.5 mg 00 :00 ONCE, 1 Medical dose, On [facility] 07/12/22 at 1130, Routine sennosides- 2022-0 Yes 1{tbl} 1 tablet, [facility] docusate 07-12 Oral, ity of sodium 14:00: DAILY, [place] (SENOKOT-S) 00 First dose Me dical 8.6-50 mg on [facility] per tablet 07/12/22 at 1 tablet 0900, Until Discontinu ed, Routine polyethylen 2022-0 Yes 17g 17 g, Unive rs e glycol 07-12 Oral, ity of 3350 powder 14:00: DAILY, [place] 17 g 00 First dose Medical on [facility] 07/12/22 at 0900, Until Discontinu ed, Routine ezetimibe 2022-0 Yes 10mg 10 mg, Univer s (ZETIA) 07-12 Oral, ity of tablet 10 14:00: DAILY, [place] mg 00 First dose Medical on [facility] 07/12/22 at 0900, Until Discontinu ed, Routine QUEtiapine 2022-0 Yes 25mg 25 mg, Unive rs (SEROQUEL) 07-12 Oral, BID, ity of tablet 25 13:30: First dose [place] mg 00 on [facility] 07/12/22 at Branch 0830, Until Discontinu ed, Routine magnesium 2023-0 2023- No 400mg 400 mg, Uni vers oxide 07-12- Oral, ity of (MAG-OX 11:15: 11:41 ONCE, 1 [place] 400) tablet 00 :00 dose, On Medi ralph 400 mg Tow 07/12/22 Branch at 0615, Routine KCL 2022- No 20meq 20 mEq, Univers (KLOR-CON 07-12-04 Oral, ity of M20) tablet 11:15: 11:41 ONCE, 1 [place] 20 mEq 00 :00 dose, On Medical Tow 07/12/22 Branch at 0615, Routine rosuvastati Yes 10mg 10 mg, Univ ers n (CRESTOR) 6-04 Oral, QHS, it y of tablet 10 02:00: First dose [place] mg 00 on [facility] Medical 07/11/22 at Branch 2100, Until Discontinu ed, Routine HEPARIN 2022- No 4000U 4,000 Univers SODIUM 07-12-04 Units, IV ity of (PORCINE) 01:15: 02:32 Push, [place] 1,000 00 :00 ONCE, 1 Medical UNIT/ML dose, On Branch BOLUS ACS [facility] 07/11/22 ORDER SET at 2015, RERE heparin 2022- No 0U/h 0-2,150 Univer [...] Rang e, Dosing and Testing: &nbs p;[facility], AND [facility] ONLY &nbs p; - aPTT < [...] INITIAL BOLUS OR INITIAL INFUSION RATE.
traZODone 0 Yes 50mg 50 mg, Univer s (DESYREL) 07-12 Oral, ity of tablet 50 01:05: QHSPRN, [place] mg 48 Starting Medical on [facility] 07/11/22 at 2005, Until Discontinu ed, Routine, Insomnia acetaminoph Yes 650mg 650 mg, Un marcie en 07-12 Oral, ity of (TYLENOL) 00:10: Q6HPRN, [place] tablet 650 26 Starting Medic al mg on [facility] 07/11/22 at 1910, Until Discontinu ed, Routine, Pain (scale 1-3) KCL 10 mEq Yes 10meq Take 1 Univ ers tablet 07-11 tablet by ity of 20:06: mouth in [place] 12 the Medical morning Branch and 1 tablet in the evening. docusate 0 Yes 100mg Take 1 Univer s 100 mg 07-11 capsule by ity of capsule 19:55: mouth in [place] 01 the Medical morning. Branch LORazepam 0 2022- No .5mg 0.5 mg, Univ ers (ATIVAN) 07-11 06-03 Slow IV ity of injection 19:45: 19:53 Push, [place] 0.5 mg 00 :00 ONCE, 1 Medical dose, On Branch [facility] 07/11/22 at 1445, STAT KCL 10 mEq 3-0 Yes 10meq Take 1 Univ ers tablet 6-02 tablet by ity of 08:18: mouth in [place] [id number] the Medical morning Branch and 1 tablet in the evening. KCL 10 mEq 2023-0 Yes 10meq Take 1 Univ ers tablet 6-02 tablet by ity of 08:18: mouth in [place] [address] the Medical morning Branch and 1 tablet in the evening. KCL 10 mEq 2023-0 Yes 10meq Take 1 Univ ers tablet 6-02 tablet by ity of 08:18: mouth in [place] [address] the Medical morning Branch and 1 tablet in the evening. KCL 10 mEq 2023-0 Yes 10meq Take 1 Univ ers tablet 6-02 tablet by ity of 08:18: mouth in [place] [address] the Medical morning Branch and 1 tablet in the evening. KCL 10 mEq 2023-0 Yes 10meq Take 1 Univ ers tablet 6-02 tablet by ity of 08:18: mouth in [place] [address] the Medical morning Branch and 1 tablet in the evening. LACTULOSE 2022-0 Yes [id number] TAKE 15 ML [facility] 10 gram/15 6-02 BY MOUTH ity o f mL solution 00:00: TWICE [place] 00 DAILY Medical NEEDED FOR Branch CONSTIPATI ON ciprofloxac 3-0 Yes [id number] 250mg Take 1 [facility] in HCl 250 6-02 tablet by ity of mg tablet 00:00: mouth [place] 00 every 12 Medical (twelve) Branch hours. ciprofloxac 2023-0 Yes [id number] 250mg Take 1 [facility] in HCl 250 6-02 tablet by ity of mg tablet 00:00: mouth [place] 00 every 12 Medical (twelve) Branch hours. ciprofloxac 3-0 Yes [id number] 250mg Take 1 [facility] in HCl 250 6-02 tablet by ity of mg tablet 00:00: mouth [place] 00 every 12 Medical (twelve) Branch hours. ciprofloxac 2023-0 Yes [id number] 250mg Take 1 [facility] in HCl 250 6-02 tablet by ity of mg tablet 00:00: mouth [place] 00 every 12 Medical (twelve) Branch hours. ciprofloxac 2023-0 2023- No [id number] 250mg Take 1 [facility] in HCl 250 6-02 06-06 tablet by ity of mg tablet 00:00: 00:00 mouth [place] 00 :00 every 12 Medical (twelve) Branch hours. ELIQUIS 5 2022-0 Yes [id number] TAKE 1 U nivers mg tablet 5-22 TABLET BY ity o f 00:00: MOUTH IN [place] 00 THE Medical MORNING Branch AND IN THE EVENING FOR ATRIAL FIBRILLATI ON ELIQUIS 5 2022-0 Yes [id number] TAKE 1 U nivers mg tablet 5-22 TABLET BY ity o f 00:00: MOUTH IN [place] 00 THE Medical MORNING Branch AND IN THE EVENING FOR ATRIAL FIBRILLATI ON ELIQUIS 5 2022-0 Yes [id number] TAKE 1 U nivers mg tablet 5-22 TABLET BY ity o f 00:00: MOUTH IN [place] 00 THE Medical MORNING Branch AND IN THE EVENING FOR ATRIAL FIBRILLATI ON ELIQUIS 5 2022-0 Yes [id number] TAKE 1 U nivers mg tablet 5-22 TABLET BY ity o f 00:00: MOUTH IN [place] 00 THE Medical MORNING Branch AND IN THE EVENING FOR ATRIAL FIBRILLATI ON ELIQUIS 5 2022-0 Yes [id number] TAKE 1 U nivers mg tablet 5-22 TABLET BY ity o f 00:00: MOUTH IN [place] 00 THE Medical MORNING Branch AND IN THE EVENING FOR ATRIAL FIBRILLATI ON ELIQUIS 5 2022-0 Yes [id number] TAKE 1 U nivers mg tablet 5-22 TABLET BY ity o f 00:00: MOUTH IN [place] 00 THE Medical MORNING Branch AND IN THE EVENING FOR ATRIAL FIBRILLATI ON ELIQUIS 5 2022-0 Yes [id number] TAKE 1 U nivers mg tablet 5-22 TABLET BY ity o f 00:00: MOUTH IN [place] 00 THE Medical MORNING Branch AND IN THE EVENING FOR ATRIAL FIBRILLATI ON ELIQUIS 5 2022-0 Yes [id number] TAKE 1 U nivers mg tablet 5-22 TABLET BY ity o f 00:00: MOUTH IN [place] 00 THE Medical MORNING Branch AND IN THE EVENING FOR ATRIAL FIBRILLATI ON ELIQUIS 5 2022-0 Yes [id number] TAKE 1 U nivers mg tablet 5-22 TABLET BY ity o f 00:00: MOUTH IN [place] 00 THE Medical MORNING Branch AND IN THE EVENING FOR ATRIAL FIBRILLATI ON ELIQUIS 5 2022-0 Yes [id number] TAKE 1 U nivers mg tablet 5-22 TABLET BY ity o f 00:00: MOUTH IN [place] 00 THE Medical MORNING Branch AND IN THE EVENING FOR ATRIAL FIBRILLATI ON ELIQUIS 5 2023-0 Yes [id number] TAKE 1 [facility] nivers mg tablet 5-22 TABLET BY ity o f 00:00: MOUTH IN [place] 00 THE Medical MORNING Branch AND IN THE EVENING FOR ATRIAL FIBRILLATI ON ELIQUIS 5 2023-0 Yes [id number] TAKE 1 U nivers mg tablet 5-22 TABLET BY ity o f 00:00: MOUTH IN [place] 00 THE Medical MORNING Branch AND IN THE EVENING FOR ATRIAL FIBRILLATI ON ELIQUIS 5 2023-0 Yes [id number] TAKE 1 [facility] nivers mg tablet 5-22 TABLET BY ity o f 00:00: MOUTH IN [place] 00 THE Medical MORNING Branch AND IN THE EVENING FOR ATRIAL FIBRILLATI ON ELIQUIS 5 2023-0 Yes [id number] TAKE 1 U nivers mg tablet 5-22 TABLET BY ity o f 00:00: MOUTH IN [place] 00 THE Medical MORNING Branch AND IN THE EVENING FOR ATRIAL FIBRILLATI ON ELIQUIS 5 2023-0 Yes [id number] TAKE 1 [facility] mg tablet 5-22 TABLET BY ity o f 00:00: MOUTH IN [place] 00 THE Medical MORNING Branch AND IN THE EVENING FOR ATRIAL FIBRILLATI ON lactulose 2023-0 Yes [id number] 15mL Take 15 mL [facility] 10 gram/15 5-18 by mouth 2 ity of mL solution 00:00: (two) [place] 00 times Medical daily as Branch needed for Constipati on. lactulose 2023-0 Yes [id number] 15mL Take 15 mL [facility] 10 gram/15 5-18 by mouth 2 ity of mL solution 00:00: (two) [place] 00 times Medical daily as Branch needed for Constipati on. lactulose 2023-0 Yes [id number] 15mL Take 15 mL [facility] 10 gram/15 5-18 by mouth 2 ity of mL solution 00:00: (two) [place] 00 times Medical daily as Branch needed for Constipati on. lactulose 2023-0 Yes [id number] 15mL Take 15 mL [facility] 10 gram/15 5-18 by mouth 2 ity of mL solution 00:00: (two) [place] 00 times Medical daily as Branch needed for Constipati on. lactulose 2023-0 Yes [id number] 15mL Take 15 mL [facility] 10 gram/15 5-18 by mouth 2 ity of mL solution 00:00: (two) [place] 00 times Medical daily as Branch needed for Constipati on. lactulose 2022-2022- No [id number] 15mL Take 15 mL [facility] 10 gram/15 5-18 06-02 by mouth 2 it y of mL solution 00:00: 00:00 (two) [place] 00 :00 times Medical daily as Branch needed for Constipati on. lactulose 2022-0 2022- No [id number] 15mL Take 15 mL [facility] 10 gram/15 5-18 -02 by mouth 2 it y of mL solution 00:00: 00:00 (two) [place] 00 :00 times Medical daily as Branch needed for Constipati on. lactulose 2022-0 2022- No [id number] 15mL Take 15 mL [facility] 10 gram/15 5-18 - by mouth 2 it y of mL solution 00:00: 00:00 (two[place] 00 :00 times Medical daily as Branch needed for Constipati on. tamsulosin 2022-2022- No [id number] .4mg Take 1 [facility] 0.4 mg 24 5-18 05-18 capsule by ity of hr capsule 00:00: 00:00 mouth in [place] 00 :00 the Medical morning. Branch tamsulosin 2022-0 2022- No [id number] .4mg Take 1 [facility] 0.4 mg 24 5-18 05-18 capsule by ity of hr capsule 00:00: 00:00 mouth in [place] 00 :00 the Medical morning. Branch tamsulosin 2022-2022- No [id number] .4mg Take 1 [facility] 0.4 mg 24 5-18 05-18 capsule by ity of hr capsule 00:00: 00:00 mouth in [place] 00 :00 the Medical morning. Branch KCL 10 mEq 2022-0 Yes 10meq Take 1 [facility] ers tablet 3-25 tablet by ity of 17:27: mouth in [place] 50 the Medical morning Branch and 1 [...] 50 daily. Medical Branch KCL 10 mEq 2023-0 Yes 10meq Take 1 Univ ers tablet 3-25 tablet by ity of 17:27: mouth in [place] 50 the Medical morning Branch and 1 tablet in the evening. docusate 2023-0 Yes 100mg Take 100 Univ ers (COLACE) 3-25 mg by ity of 100 mg 17:27: mouth [place] capsule 50 daily. Medical Branch KCL 10 mEq 2023-0 Yes 10meq Take 1 [facility] ers tablet 3-25 tablet by ity of 17:27: mouth in [place] 50 the Medical morning Branch and 1 tablet in the evening. docusate 2023-0 Yes 100mg Take 100 Univ ers (COLACE) 3-25 mg by ity of 100 mg 17:27: mouth [place] capsule 50 daily. Medical Branch KCL 10 mEq 2023-0 Yes 10meq Take [...] 50 daily. Medical Branch KCL 10 mEq 2023-0 Yes 10meq Take 1 Univ ers tablet 3-25 tablet by ity of 17:27: mouth in [place] 50 the Medical morning Branch and 1 tablet in the evening. docusate 2023-0 Yes 100mg Take 100 Univ ers (COLACE) 3-25 mg by ity of 100 mg 17:27: mouth [place] capsule 50 daily. Medical Branch KCL 10 mEq 2023-0 Yes 10meq Take 1 Univ ers tablet 3-25 tablet by ity of 17:27: mouth in [place] 50 the Medical morning Branch and 1 tablet in the evening. docusate 2023-0 Yes 100mg Take 100 Univ ers (COLACE) 3-25 mg by ity of 100 mg 17:27: mouth [place] capsule 50 daily. Medical Branch KCL 10 mEq 2023-0 Yes 10meq Take 1 Univ ers tablet 3-25 tablet by ity of 17:27: mouth in [place] 50 the Medical morning Branch and 1 tablet in the evening. docusate 2023-0 Yes 100mg Take 100 Univ ers (COLACE) 3-25 mg by ity of 100 mg 17:27: mouth [place] capsule 50 daily. Medical Branch KCL 10 mEq 2023-0 Yes 10meq Take 1 Univ ers tablet 3-25 tablet by ity of 17:27: mouth in [place] 50 the Medical morning Branch and 1 tablet in the evening. docusate 2023-0 Yes 100mg Take 100 Univ ers (COLACE) 3-25 mg by ity of 100 mg 17:27: mouth [place] capsule 50 daily. Medical Branch KCL 10 mEq 2023-0 Yes 10meq Take [...] 50 daily. Medical Branch KCL 10 mEq 2023-0 Yes 10meq Take 1 Univ ers tablet 3-25 tablet by ity of 17:27: mouth in [place] 50 the Medical morning Branch and 1 tablet in the evening. docusate 2023-0 Yes 100mg Take 100 Univ ers (COLACE) 3-25 mg by ity of 100 mg 17:27: mouth [place] capsule 50 daily. Medical Branch KCL 10 mEq 2023-0 Yes 10meq Take [...] [place] mg 00 First dose Medical on [facility] 05/02/22 at 0900, Until Discontinu ed, Routine ezetimibe 3- No 10mg 10 mg, Unive rs (ZETIA) 05-02 Oral, ity of tablet 10 14:00: 00:27 DAILY, [place] mg 00 :50 First dose Medical on [facility] 05/02/22 at 0900, Until Discontinu ed, Routine ezetimibe 2022- No 10mg 10 mg, Unive rs (ZETIA) 05-02 Oral, ity of tablet 10 14:00: 00:27 DAILY, [place] mg 00 :50 First dose Medical on [facility] 05/02/22 at 0900, Until Discontinu ed, Routine magnesium 2022- No 2g 2 g, IV Univ ers sulfate in 05-02 Piggyback, it y of water 2 12:00: 17:55 Administer [place] as gram/50 mL 00 :00 over 60 Medica l (4 %) Minutes, Branch infusion 2 ONCE, 1 g dose, On [facility] [place] 05/02/22 at 0700, Routine magnesium 0 2022- No 2g 2 g, IV Univ ers sulfate in 05-02 Piggyback, it y of water 2 12:00: 17:55 Administer [place] as gram/50 mL 00 :00 over 60 Medica l (4 %) Minutes, Branch infusion 2 ONCE, 1 g dose, On [facility] [place] 05/02/22 at 0700, Routine magnesium 2022-0 3- No 2g 2 g, IV Univ ers sulfate in 05-02 Piggyback, it y of water 2 12:00: 17:55 Administer [place] as gram/50 mL 00 :00 over 60 Medica l (4 %) Minutes, Branch infusion 2 ONCE, 1 g dose, On [facility] [place] 05/02/22 at 0700, Routine acetaminoph 2022-3- No 1{tbl} 1 tablet, Univers en-codeine 05-02 [...] Branch tablet 05/02/22 at 0500, Routine vancomycin No 1000mg 1,000 mg, [facility] (VANCOCIN) 05-02 IV ity of 1,000 mg in 05:00: 18:[facility] [place] NaCl 0.9% 00 :14 Q12H ABX, Medic al (NS) 250 mL 2 doses, Bran ch VIAL-client service consultant dose IV on Sat [facility] 05/02/22 at 0000, Last dose on 05/02/22 at 1200, Administer over 60 Minutes, 250 mL
Reas on for Anti-Infec tive: Surgical Prophylaxi s
Surgi ralph Prophylaxi s: Other (see Comments)< br>Duratio n of therapy: within 24 hours of surgery vancomycin No 1000mg 1,000 mg, Univers (VANCOCIN) 05-02 IV ity of 1,000 mg in 05:00: 19:30 [facility], [place] NaCl 0.9% 00 :00 Q12H ABX, Medic al (NS) 250 mL 2 doses, Bran ch VIAL-client service consultant dose IV on Sat [facility]back 05/02/22 at 0000, Last dose on 05/02/22 at 1200, Administer over 60 Minutes, 250 mL
Reas on for Anti-Infec tive: Surgical Prophylaxi s
Surgi ralph Prophylaxi s: Other (see Comments)< br>Duratio n of therapy: within 24 hours of surgery vancomycin No 1000mg 1,000 mg, Univers (VANCOCIN) 05-02 IV ity of 1,000 mg in 05:00: 19:30 [facility], [place] NaCl 0.9% 00 :00 Q12H ABX, Medic al (NS) 250 mL 2 doses, Bran ch VIAL-client service consultant dose IV on Sat [facility]gyback 05/02/22 at 0000, Last dose on 05/02/22 at 1200, Administer over 60 Minutes, 250 mL
Reas on for Anti-Infec tive: Surgical Prophylaxi s
Surgi ralph Prophylaxi s: Other (see Comments)< br>Duratio n of therapy: within 24 hours of surgery rosuvastati Yes 10mg 10 mg, Univ ers n (CRESTOR) 05-02 Oral, QHS, it y of tablet 10 02:00: First dose [place] mg [address] [facility] 05/01/22 at [place] 2100, Until Discontinu ed, Routine rosuvastati 2022- No 10mg 10 mg, Uni vers n (CRESTOR) 05-02 Oral, QHS, i ty of tablet 10 02:00: 00:27 First dose [place] mg 00 :[address] [facility] 05/01/22 at Branch 2100, Until Discontinu ed, Routine rosuvastati 2022- No 10mg 10 mg, Uni vers n (CRESTOR) 05-02 Oral, QHS, i ty of tablet 10 02:00: 00:27 First dose [place] mg 00 :[address] [facility] 05/01/22 at Branch 2100, Until Discontinu ed, Routine traZODone No 50mg 50 mg, Unive rs (DESYREL) 05-02 Oral, ONCE ity of tablet 50 02:00: 02:19 NOW, 1 [place] mg 00 :00 dose, On Medical [facility] 05/01/22 at 2115, Routine traZODone No 50mg 50 mg, Unive rs (DESYREL) 05-02 Oral, ONCE ity of tablet 50 02:00: 02:19 NOW, 1 [place] mg 00 :00 dose, On Medical Fri Branch 05/01/22 at 2115, Routine traZODone 2022- No 50mg 50 mg, Unive rs (DESYREL) 325 -25 Oral, ONCE ity of tablet 50 02:00: 02:19 NOW, 1 [place] mg 00 :00 dose, On Medical Fri Branch 05/01/22 at 2115, Routine metoprolol Yes 25mg 25 mg, Unive rs tartrate 3-25 Oral, BID, ity o f (LOPRESSOR) 01:00: First dose [place] tablet 25 00 on Fri Medical mg 05/01/22 at [place] 1999, Until Discontinu ed, Routine metoprolol 2022- No 25mg 25 mg, Univ ers tartrate 05-02- Oral, BID, ity of (LOPRESSOR) 01:00: 00:27 First dose [place] tablet 25 00 :50 on Fri Medical mg 05/01/22 at [place] 1999, Until Discontinu ed, Routine metoprolol 2022- No 25mg 25 mg, Univ ers tartrate 05-02- Oral, BID, ity of (LOPRESSOR) 01:00: 00:27 First dose [place] tablet 25 00 :50 on Fri Medical mg 05/01/22 at [place] 1999, Until Discontinu ed, Routine doxycycline 2022-0 3- No [id number] 100mg Take 1 [facility] hyclate 100 3-25 04-02 capsule by i ty of mg capsule 00:00: 04:59 mouth [place] 00 :00 every 12 Medical (twelve) Branch hours for 7 days. doxycycline 2022-0 2023- No [id number] 100mg Take 1 [facility] hyclate 100 3-25 04-02 capsule by i ty of mg capsule 00:00: 04:59 mouth [place] 00 :00 every 12 Medical (twelve) Branch hours for 7 days. doxycycline 2023-0 2023- No [id number] 100mg Take 1 [facility] hyclate 100 3-25 04-02 capsule by i ty of mg capsule 00:00: 04:59 mouth [place] 00 :00 every 12 Medical (twelve) Branch hours for 7 days. doxycycline 2022-0 2023- No [id number] 100mg Take 1 [facility] hyclate 100 3-25 04-02 capsule by i ty of mg capsule 00:00: 04:59 mouth [place] 00 :00 every 12 Medical (twelve) Branch hours for 7 days. doxycycline 2022- No [id number] 100mg Take 1 [facility] hyclate 100 05-02 capsule by i ty of mg capsule 00:00: 04:59 mouth [place] 00 :00 every 12 Medical (twelve) Branch hours for 7 days. doxycycline 2022- No [id number] 100mg Take 1 [facility] hyclate 100 05-02 capsule by i ty of mg capsule 00:00: 04:59 mouth [place] 00 :00 every 12 Medical (twelve) Branch hours for 7 days. acetaminoph Yes 650mg 650 mg, Un marcie en 05-01 Oral, ity of (TYLENOL) 21:26: Q6HPRN, [place] tablet 650 03 Starting Medic al mg on Wed Branch 05/01/22 at 1626, Until Discontinu ed, Routine, Pain (scale 1-3) acetaminoph 2022- No 650mg 650 mg, U nivers en 05-01 Oral, ity of (TYLENOL) 21:26: 00:27 Q6HPRN, [place] tablet 650 03 :50 Starting Medic al mg on Wed Branch 05/01/22 at 1626, Until 05/02/22 at 1927, Routine, Pain (scale 1-3) acetaminoph 2022- No 650mg 650 mg, U nivers en 05-01 Oral, ity of (TYLENOL) 21:26: 00:27 Q6HPRN, [place] tablet 650 03 :50 Starting Medic al mg on Wed Branch 05/01/22 at 1626, Until 05/02/22 at 1927, Routine, Pain (scale 1-3) atorvastati 2022- No atorvastat Univers n 10 mg 05-01 in 10 mg ity of tablet 17:56: 00:00 tablet [place] 04 :00 Medical Branch METOPROLOL 2022- No Metoprolol Univers TARTRATE 05-01 Oral ity of ORAL 17:56: 00:00 (Tartrate) [place] 04 :00 once daily Medical active Branch allopurinoL 2022- No allopurino Univers 300 mg 05-01-24 l 300 mg ity of tablet 17:56: 00:00 tablet [place] 04 :00 Medical Branch atorvastati 2022- No atorvastat Univers n 10 mg 05-01-24 in 10 mg ity of tablet 17:56: 00:00 tablet 04 :00 Medical Branch METOPROLOL 2022- No Metoprolol Univers TARTRATE 05-0124 Oral ity of ORAL 17:56: 00:00 (Tartrate) 04 :00 once daily Medical active Branch allopurinoL 2022- No allopurino Univers 300 mg 05-0124 l 300 mg ity of tablet 17:56: 00:00 tablet 04 :00 Medical Branch atorvastati 2022- No atorvastat Univers n 10 mg 05-01 in 10 mg ity of tablet 17:56: 00:00 tablet [place] 04 :00 Medical Branch METOPROLOL 2022- No Metoprolol Univers TARTRATE 05-01 Oral ity of ORAL 17:56: 00:00 (Tartrate) [place] 04 :00 once daily Medical active Branch allopurinoL 2022- No allopurino Univers 300 mg 05-01- l 300 mg ity of tablet 17:56: 00:00 tablet 04 :00 Medical Branch iodixanol 2022- No ONCE INTRA U nivers (VISIPAQUE 05-01 PROCEDURE, it y of 320-100 mL) 17:47: 18:25 Starting [place] injection 35 :50 on Fri Medical 05/01/22 at Branch 1247, Until Wed05/01/22 at 1325, Routine, CV Intraproce dure iodixanol 2022- No ONCE INTRA U nivers (VISIPAQUE 05-01 PROCEDURE, it y of 320-100 mL) 17:47: 18:25 Starting [place] injection 35 :50 on Fri Medical 05/01/22 at Branch 1247, Until Wed05/01/22 at 1325, Routine, CV Intraproce dure lidocaine 2022- No ONCE INTRA U nivers 1% (PF) 05-01 PROCEDURE, ity o f (XYLOCAINE) 16:06: 18:25 Starting [place] injection 44 :50 on Fri Medical 05/01/22 at Branch 1106, Until 05/01/22 at 1325, Routine, CV Intraproce dure lidocaine 2022-0 2022- No ONCE INTRA U nivers 1% (PF) 05-01 PROCEDURE, ity o f (XYLOCAINE) 16:06: 18:25 Starting [place] injection 44 :50 on Fri Medical 05/01/22 at Branch 1106, Until 05/01/22 at 1325, Routine, CV Intraproce dure diphenhydrA 2023-0 2023- No 25mg Take 1 Uni vers MINE 25 mg 04-30 tablet by ity of tablet 00:00: 04:59 mouth [place] 00 :00 every 12 Medical (twelve) Branch hours for 3 doses. Start morning before procedure. Take last dose morning of procedure famotidine 2022-0 2022- No 20mg Take 1 Univ ers [...] last dose morning of procedure famotidine 2022-0 2022- No 20mg Take 1 Univ ers 20 mg 04-30 tablet by ity of tablet 00:00: 04:59 mouth [place] 00 :00 every 12 Medical (twelve) Branch hours for 3 doses. Start morning before procedure. Take last dose morning of procedure diphenhydrA 2023-0 2023- No 25mg Take 1 Uni vers MINE 25 mg 04-30 tablet by ity of tablet 00:00: 04:59 mouth [place] 00 :00 every 12 Medical (twelve) Branch hours for 3 doses. Start morning before procedure. Take last dose morning of procedure famotidine 3-0 202- No 20mg Take 1 Univ ers 20 mg -30 04- tablet by ity of tablet 00:00: 04:59 mouth [place] 00 :00 every 12 Medical (twelve) Branch hours for 3 doses. Start morning before procedure. Take last dose morning of procedure diphenhydrA 2023-0 2023- No 25mg Take 1 Uni vers MINE 25 mg 3-30 04-26 tablet by ity of tablet 00:00: 04:59 mouth [place] 00 :00 every 12 Medical (twelve) Branch hours for 3 doses. Start morning before procedure. Take last dose morning of procedure famotidine 2023-0 2023- No 20mg Take 1 Univ ers 20 mg -30 04- tablet by ity of tablet 00:00: 04:59 mouth [place] 00 :00 every 12 Medical (twelve) Branch hours for 3 doses. Start morning before procedure. Take last dose morning of procedure diphenhydrA 2023-0 2023- No 25mg Take 1 Uni vers MINE 25 mg 04-30- tablet by ity of tablet 00:00: 04:59 mouth [place] 00 :00 every 12 Medical (twelve) Branch hours for 3 doses. Start morning before procedure. Take last dose morning of procedure famotidine 2023-0 2023- No 20mg Take 1 Univ ers 20 mg 04-30 tablet by ity of tablet 00:00: 04:59 mouth [place] 00 :00 every 12 Medical (twelve) Branch hours for 3 doses. Start morning before procedure. Take last dose morning of procedure diphenhydrA 2023-0 2023- No 25mg Take 1 Uni vers MINE 25 mg 04-30 tablet by ity of tablet 00:00: 04:59 mouth [place] 00 :00 every 12 Medical (twelve) Branch hours for 3 doses. Start morning before procedure. Take last dose morning of procedure famotidine 2023-0 2023- No 20mg Take 1 Univ ers 20 mg 3-30 04-26 tablet by ity of tablet 00:00: 04:59 mouth [place] 00 :00 every 12 Medical (twelve) Branch hours for 3 doses. Start morning before procedure. Take last dose morning of procedure diphenhydrA 2023-0 2023- No 25mg Take 1 Uni vers MINE 25 mg 3-30 04-26 tablet by ity of tablet 00:00: 04:59 mouth [place] 00 :00 every 12 Medical (twelve) Branch hours for 3 doses. Start morning before procedure. Take last dose morning of procedure famotidine 2023-0 3- No 20mg Take 1 Univ ers 20 mg -30 04-26 tablet by ity of tablet 00:00: 04:59 mouth [place] 00 :00 every 12 Medical (twelve) Branch hours for 3 doses. Start morning before procedure. Take last dose morning of procedure predniSONE 2023-0 2023- No 40mg Take 2 Univ ers 20 mg 3-30 04-25 tablets by ity of tablet 00:00: 04:59 mouth [place] 00 :00 every 6 Medical (six) Branch hours for 4 doses. Start morning before procedure. Take last dose morning of procedure predniSONE 3-0 2023- No 40mg Take 2 Univ ers 20 mg 3-30 04-25 tablets by ity of tablet 00:00: 04:59 mouth [place] 00 :00 every 6 Medical (six) Branch hours for 4 doses. Start morning before procedure. Take last dose morning of procedure predniSONE 3-0 3- No 40mg Take 2 Univ ers 20 mg 3-30 04-25 tablets by ity of tablet 00:00: 04:59 mouth [place] 00 :00 every 6 Medical (six) Branch hours for 4 doses. Start morning before procedure. Take last dose morning of procedure predniSONE 3-0 3- No 40mg Take 2 Univ ers 20 mg 3-30 04-25 tablets by ity of tablet 00:00: 04:59 mouth [place] 00 :00 every 6 Medical (six) Branch hours for 4 doses. Start morning before procedure. Take last dose morning of procedure predniSONE 3-0 2023- No 40mg Take 2 Univ ers 20 mg 3-30 04-25 tablets by ity of tablet 00:00: 04:59 mouth [place] 00 :00 every 6 Medical (six) Branch hours for 4 doses. Start morning before procedure. Take last dose morning of procedure predniSONE 2023-0 2023- No 40mg Take 2 Univ ers 20 mg 3-23 -25 tablets by ity of tablet 00:00: 04:59 mouth [place] 00 :00 every 6 Medical (six) Branch hours for 4 doses. Start morning before procedure. Take last dose morning of procedure predniSONE 2023-0 2023- No 40mg Take 2 Univ ers 20 mg 3-23 03-25 tablets by ity of tablet 00:00: 04:59 mouth [place] 00 :00 every 6 Medical (six) Branch hours for 4 doses. Start morning before procedure. Take last dose morning of procedure diphenhydrA 2023-0 2023- No 25mg Take 1 Uni vers MINE 25 mg 3-23 03-24 tablet by ity of tablet 00:00: 00:00 mouth [place] 00 :00 every 12 Medical (twelve) Branch hours for 3 doses. Start morning before procedure. Take last dose morning of procedure famotidine 2023-0 2023- No 20mg Take 1 Univ ers 20 mg 3-23 03-24 tablet by ity of tablet 00:00: 00:00 mouth [place] 00 :00 every 12 Medical (twelve) Branch hours for 3 doses. Start morning before procedure. Take last dose morning of procedure predniSONE 2023-0 2023- No 40mg Take 2 Univ ers 20 mg 3-23 03-24 tablets by ity of tablet 00:00: 00:00 mouth [place] 00 :00 every 6 Medical (six) Branch hours for 4 doses. Start morning before procedure. Take last dose morning of procedure diphenhydrA 2023-0 2023- No 25mg Take 1 Uni vers MINE 25 mg 3-23 03-24 tablet by ity of tablet 00:00: 00:00 mouth [place] 00 :00 every 12 Medical (twelve) Branch hours for 3 doses. Start morning before procedure. Take last dose morning of procedure famotidine 2023-0 2023- No 20mg Take 1 Univ ers 20 mg 3-23 03-24 tablet by ity of tablet 00:00: 00:00 mouth [place] 00 :00 every 12 Medical (twelve) Branch hours for 3 doses. Start morning before procedure. Take last dose morning of procedure predniSONE 2023-0 2023- No 40mg Take 2 Univ ers 20 mg 3-23 03-24 tablets by ity of tablet 00:00: 00:00 mouth [place] 00 :00 every 6 Medical (six) Branch hours for 4 doses. Start morning before procedure. Take last dose morning of procedure diphenhydrA 2023-0 2023- No 25mg Take 1 Uni vers MINE 25 mg 3-23 03-24 tablet by ity of tablet 00:00: 00:00 mouth [place] 00 :00 every 12 Medical (twelve) Branch hours for 3 doses. Start morning before procedure. Take last dose morning of procedure famotidine 2022-0 2022- No 20mg Take 1 Univ ers 20 mg 3-30 04-24 tablet by ity of tablet 00:00: 00:00 mouth [place] 00 :00 every 12 Medical (twelve) Branch hours for 3 doses. Start morning before procedure. Take last dose morning of procedure predniSONE 3-0 2022- No 40mg Take 2 Univ ers 20 mg 3-30 04-24 tablets by ity of tablet 00:00: 00:00 mouth [place] 00 :00 every 6 Medical (six) Branch hours for 4 doses. Start morning before procedure. Take last dose morning of procedure ezetimibe 0 Yes [id number] 10mg Take 1 U nivers 10 mg 2-17 tablet by ity of tablet 00:00: mouth in [place] 00 the Medical morning. Branch traZODone 2022-0 Yes [id number] 50mg Take 1 Un marcie 50 mg 2-17 tablet by [facility] tablet 00:00: mouth at [place] 00 bedtime as Medical needed for Branch Insomnia. mupirocin 2 2022-0 Yes [id number] Apply to [facility] % ointment 2-17 area(s) at [facility] 00:00: bedtime as [place] 00 needed for Medical Rash. Branch rosuvastati 2022-0 Yes [id number] 10mg Take 1 [facility] n 10 mg 2-17 tablet by [facility] tablet 00:00: mouth at [place] 00 bedtime. Medical Branch ezetimibe 2022-0 Yes [id number] 10mg Take 1 [facility] nivers 10 mg 2-17 tablet by [facility] tablet 00:00: mouth in [place] 00 the Medical morning. Branch traZODone 2022-0 Yes [id number] 50mg Take 1 Un marcie 50 mg 2-17 tablet by [facility] tablet 00:00: mouth at [place] 00 bedtime as Medical needed for Branch Insomnia. mupirocin 2 2022-0 Yes [id number] Apply to [facility] % ointment 2-17 area(s) at [facility] 00:00: bedtime as [place] 00 needed for Medical Rash. Branch rosuvastati 2022-0 Yes [id number] 10mg Take 1 [facility] n 10 mg 2-17 tablet by [facility] tablet 00:00: mouth at [place] 00 bedtime. Medical Branch ezetimibe 2022-0 Yes [id number] 10mg Take 1 U nivers 10 mg 2-17 tablet by [facility] tablet 00:00: mouth in [place] the Medical morning. Branch traZODone 2022-0 Yes [id number] 50mg Take 1 Un [facility] 50 mg 2-17 tablet by [facility] tablet 00:00: mouth at [place] 00 bedtime as Medical needed for Branch Insomnia. mupirocin 2 2022-0 Yes [id number] Apply to [facility] % ointment 2-17 area(s) at [facility] 00:00: bedtime as [place] [address] needed for Medical Rash. Branch rosuvastati 2022-0 Yes [id number] 10mg Take 1 [facility] n 10 mg 2-17 tablet by [facility] tablet 00:00: mouth at [place] 00 bedtime. Medical Branch ezetimibe 0 Yes [id number] 10mg Take 1 U nivers 10 mg 2-17 tablet by [facility] tablet 00:00: mouth in [place] the Medical morning. Branch traZODone 2022-0 Yes [id number] 50mg Take 1 Un [facility] 50 mg 2-17 tablet by [facility] tablet 00:00: mouth at [place] bedtime as Medical needed for Branch Insomnia. mupirocin 2 2022-0 Yes [id number] Apply to [facility] % ointment 2-17 area(s) at [facility] 00:00: bedtime as [place] 00 needed for Medical Rash. Branch rosuvastati 2022-0 Yes [id number] 10mg Take 1 [facility] n 10 mg 2-17 tablet by [facility] tablet 00:00: mouth at [place] 00 bedtime. Medical Branch ezetimibe 2022-0 Yes [id number] 10mg Take 1 [facility] nivers 10 mg 2-17 tablet by [facility] tablet 00:00: mouth in [place] the Medical morning. Branch traZODone 2022-0 Yes [id number] 50mg Take 1 Un [facility] 50 mg 2-17 tablet by [facility] tablet 00:00: mouth at [place] 00 bedtime as Medical needed for Branch Insomnia. mupirocin 2 2022-0 Yes [id number] Apply to [facility] % ointment 2-17 area(s) at [facility] 00:00: bedtime as [place] 00 needed for Medical Rash. Branch rosuvastati 2022-0 Yes [id number] 10mg Take 1 [facility] n 10 mg 2-17 tablet by [facility] tablet 00:00: mouth at [place] 00 bedtime. Medical Branch ezetimibe 2022-0 Yes [id number] 10mg Take 1 [facility] nivers 10 mg 2-17 tablet by [facility] tablet 00:00: mouth in [place] 00 the Medical morning. Branch traZODone 2022-0 Yes [id number] 50mg Take 1 Un [facility] 50 mg 2-17 tablet by [facility] tablet 00:00: mouth at [place] 00 bedtime as Medical needed for Branch Insomnia. mupirocin 2 2022-0 Yes [id number] Apply to [facility] % ointment 2-17 area(s) at [facility] 00:00: bedtime as [place] [address] needed for Medical Rash. Branch rosuvastati 2022-0 Yes [id number] 10mg Take 1 [facility] n 10 mg 2-17 tablet by [facility] tablet 00:00: mouth at [place] [address] bedtime. Medical Branch ezetimibe 2022-0 Yes [id number] 10mg Take 1 [facility] nivers 10 mg 2-17 tablet by [facility] tablet 00:00: mouth in [place] the Medical morning. Branch traZODone 2022-0 Yes [id number] 50mg Take 1 Un [facility] 50 mg 2-17 tablet by [facility] tablet 00:00: mouth at [place] 00 bedtime as Medical needed for Branch Insomnia. mupirocin 2 2022-0 Yes [id number] Apply to [facility] % ointment 2-17 area(s) at [facility] 00:00: bedtime as [place] [address] needed for Medical Rash. Branch rosuvastati 2022-0 Yes [id number] 10mg Take 1 [facility] n 10 mg 2-17 tablet by [facility] tablet 00:00: mouth at [place] 00 bedtime. Medical Branch ezetimibe 2022-0 Yes [id number] 10mg Take 1 [facility] nivers 10 mg 2-17 tablet by [facility] tablet 00:00: mouth in [place] the Medical morning. Branch traZODone 2022-0 Yes [id number] 50mg Take 1 Un [facility] 50 mg 2-17 tablet by [facility] tablet 00:00: mouth at [place] 00 bedtime as Medical needed for Branch Insomnia. mupirocin 2 Yes [id number] Apply to [facility] % ointment 2-17 area(s) at [facility] 00:00: bedtime as [place] 00 needed for Medical Rash. Branch rosuvastati 0 Yes [id number] 10mg Take 1 [facility] n 10 mg 2-17 tablet by [facility] tablet 00:00: mouth at [place] 00 bedtime. Medical Branch ezetimibe 0 Yes [id number] 10mg Take 1 [facility] nivers 10 mg 2-17 tablet by [facility] tablet 00:00: mouth in [place] 00 the Medical morning. Branch traZODone Yes [id number] 50mg Take 1 Un [facility] 50 mg 2-17 tablet by [facility] tablet 00:00: mouth at [place] 00 bedtime as Medical needed for Branch Insomnia. mupirocin 2 Yes [id number] Apply to [facility] % ointment 2-17 area(s) at [facility] 00:00: bedtime as [place] 00 needed for Medical Rash. Branch rosuvastati Yes [id number] 10mg Take 1 [facility] n 10 mg 2-17 tablet by [facility] tablet 00:00: mouth at [place] 00 bedtime. Medical Branch ezetimibe 0 Yes [id number] 10mg Take 1 Un [facility] 10 mg 2-17 tablet by [facility] tablet 00:00: mouth in [place] 00 the Medical morning. Branch traZODone 0 Yes [id number] 50mg Take 1 Un [facility] 50 mg 2-17 tablet by [facility] tablet 00:00: mouth at [place] 00 bedtime as Medical needed for Branch Insomnia. mupirocin 2 Yes [id number] Apply to [facility] % ointment 2-17 area(s) at [facility] 00:00: bedtime as [place] 00 needed for Medical Rash. Branch rosuvastati 0 Yes [id number] 10mg Take 1 [facility] n 10 mg 2-17 tablet by [facility] tablet 00:00: mouth at [place] 00 bedtime. Medical Branch ezetimibe 2022-0 Yes [id number] 10mg Take 1 [facility] 10 mg 2-17 tablet by [facility] tablet 00:00: mouth in [place] 00 the Medical morning. Branch traZODone 2023-0 Yes [id number] 50mg Take 1 Un [facility] 50 mg 2-17 tablet by [facility] tablet 00:00: mouth at [place] 00 bedtime as Medical needed for Branch Insomnia. mupirocin 2 Yes [id number] Apply to [facility] % ointment 2-17 area(s) at [facility] 00:00: bedtime as [place] 00 needed for Medical Rash. Branch rosuvastati 0 Yes [id number] 10mg Take 1 [facility] n 10 mg 2-17 tablet by [facility] tablet 00:00: mouth at [place] 00 bedtime. Medical Branch ezetimibe Yes [id number] 10mg Take 1 Un [facility] 10 mg 2-17 tablet by [facility] tablet 00:00: mouth in [place] 00 the Medical morning. Branch traZODone Yes [id number] 50mg Take 1 Un [facility] 50 mg 2-17 tablet by [facility] tablet 00:00: mouth at [place] 00 bedtime as Medical needed for Branch Insomnia. mupirocin 2 Yes [id number] Apply to [facility] % ointment 2-17 area(s) at [facility] 00:00: bedtime as [place] [address] needed for Medical Rash. Branch rosuvastati Yes [id number] 10mg Take 1 [facility] n 10 mg 2-17 tablet by [facility] tablet 00:00: mouth at [place] [address] bedtime. Medical Branch ezetimibe 0 Yes [id number] 10mg Take 1 Un [facility] 10 mg 2-17 tablet by [facility] tablet 00:00: mouth in [place] 00 the Medical morning. Branch traZODone 0 Yes [id number] 50mg Take 1 Un [facility] 50 mg 2-17 tablet by [facility] tablet 00:00: mouth at [place] 00 bedtime as Medical needed for Branch Insomnia. mupirocin 2 Yes [id number] Apply to [facility] % ointment 2-17 area(s) at [facility] 00:00: bedtime as [place] 00 needed for Medical Rash. Branch rosuvastati 0 Yes [id number] 10mg Take 1 [facility] n 10 mg 2-17 tablet by [facility] tablet 00:00: mouth at [place] [address] bedtime. Medical Branch ezetimibe 2023-0 Yes [id number] 10mg Take 1 Un [facility] 10 mg 2-17 tablet by [facility] tablet 00:00: mouth in [place] 00 the Medical morning. Branch traZODone 2022-0 Yes [id number] 50mg Take 1 Un [facility] 50 mg 2-17 tablet by [facility] tablet 00:00: mouth at [place] 00 bedtime as Medical needed for Branch Insomnia. mupirocin 2 2022-0 Yes [id number] Apply to [facility] % ointment 2-17 area(s) at [facility] 00:00: bedtime as [place] 00 needed for Medical Rash. Branch rosuvastati 2022-0 Yes [id number] 10mg Take 1 [facility] n 10 mg 2-17 tablet by [facility] tablet 00:00: mouth at [place] 00 bedtime. Medical Branch ezetimibe 2022-0 Yes [id number] 10mg Take 1 Un [facility] 10 mg 2-17 tablet by [facility] tablet 00:00: mouth in [place] the Medical morning. Branch traZODone 2022-0 Yes [id number] 50mg Take 1 Un [facility] 50 mg 2-17 tablet by [facility] tablet 00:00: mouth at [place] [address] bedtime as Medical needed for Branch Insomnia. mupirocin 2 2022-0 Yes [id number] Apply to [facility] % ointment 2-17 area(s) at [facility] 00:00: bedtime as [place] [address] needed for Medical Rash. Branch rosuvastati 2022-0 Yes [id number] 10mg Take 1 [facility] n 10 mg 2-17 tablet by [facility] tablet 00:00: mouth at [place] 00 bedtime. Medical Branch ezetimibe 2022-0 Yes [id number] 10mg Take 1 Un [facility] 10 mg 2-17 tablet by [facility] tablet 00:00: mouth in [place] 00 the Medical morning. Branch traZODone 2022-0 Yes [id number] 50mg Take 1 Un [facility] 50 mg 2-17 tablet by [facility] tablet 00:00: mouth at [place] 00 bedtime as Medical needed for Branch Insomnia. mupirocin 2 2022-0 Yes [id number] Apply to [facility] % ointment 2-17 area(s) at [facility] 00:00: bedtime as [place] [address] needed for Medical Rash. Branch rosuvastati 2022-0 Yes [id number] 10mg Take 1 [facility] n 10 mg 2-17 tablet by [facility] tablet 00:00: mouth at [place] 00 bedtime. Medical Branch ezetimibe 2022-0 Yes [id number] 10mg Take 1 Un [facility] 10 mg 2-17 tablet by [facility] tablet 00:00: mouth in [place] 00 the Medical morning. Branch traZODone 2022-0 Yes [id number] 50mg Take 1 Un [facility] 50 mg 2-17 tablet by [facility] tablet 00:00: mouth at [place] 00 bedtime as Medical needed for Branch Insomnia. mupirocin 2 2022-0 Yes [id number] Apply to [facility] % ointment 2-17 area(s) at [facility] 00:00: bedtime as [place] [address] needed for Medical Rash. Branch rosuvastati 2022-0 Yes [id number] 10mg Take 1 [facility] n 10 mg 2-17 tablet by [facility] tablet 00:00: mouth at [place] [address] bedtime. Medical Branch ezetimibe 2022-0 Yes [id number] 10mg Take 1 Un [facility] 10 mg 2-17 tablet by [facility] tablet 00:00: mouth in [place] the Medical morning. Branch traZODone 2022-0 Yes [id number] 50mg Take 1 Un [facility] 50 mg 2-17 tablet by [facility] tablet 00:00: mouth at [place] 00 bedtime as Medical needed for Branch Insomnia. mupirocin 2 2022-0 Yes [id number] Apply to [facility] % ointment 2-17 area(s) at [facility] 00:00: bedtime as [place] [address] needed for Medical Rash. Branch rosuvastati 2022-0 Yes [id number] 10mg Take 1 [facility] n 10 mg 2-17 tablet by [facility] tablet 00:00: mouth at [place] 00 bedtime. Medical Branch ezetimibe 2022-0 Yes [id number] 10mg Take 1 Un [facility] 10 mg 2-17 tablet by [facility] tablet 00:00: mouth in [place] 00 the Medical morning. Branch traZODone 2022-0 Yes [id number] 50mg Take 1 Un [facility] 50 mg 2-17 tablet by [facility] tablet 00:00: mouth at [place] 00 bedtime as Medical needed for Branch Insomnia. mupirocin 2 2023-0 Yes [id number] Apply to [facility] % ointment 2-17 area(s) at [facility] 00:00: bedtime as [place] 00 needed for Medical Rash. Branch rosuvastati 0 Yes [id number] 10mg Take 1 [facility] n 10 mg 2-17 tablet by [facility] tablet 00:00: mouth at [place] [address] bedtime. Medical Branch ezetimibe 2022-0 Yes [id number] 10mg Take 1 Un [facility] 10 mg 2-17 tablet by [facility] tablet 00:00: mouth in [place] 00 the Medical morning. Branch traZODone 0 Yes [id number] 50mg Take 1 Un mar[facility] 50 mg 2-17 tablet by [facility] tablet 00:00: mouth at [place] 00 bedtime as Medical needed for Branch Insomnia. mupirocin 2 Yes [id number] Apply to [facility] % ointment 2-17 area(s) at [facility] 00:00: bedtime as [place] [address] needed for Medical Rash. Branch rosuvastati 0 Yes [id number] 10mg Take 1 [facility] n 10 mg 2-17 tablet by [facility] tablet 00:00: mouth at [place] [address] bedtime. Medical Branch ezetimibe 0 Yes [id number] 10mg Take 1 Un mar[facility] 10 mg 2-17 tablet by [facility] tablet 00:00: mouth in [place] 00 the Medical morning. Branch traZODone 0 Yes [id number] 50mg Take 1 Un mar[facility] 50 mg 2-17 tablet by [facility] tablet 00:00: mouth at [place] 00 bedtime as Medical needed for Branch Insomnia. mupirocin 2 0 Yes [id number] Apply to [facility] % ointment 2-17 area(s) at [facility] 00:00: bedtime as [place] 00 needed for Medical Rash. Branch rosuvastati 0 Yes [id number] 10mg Take 1 [facility] n 10 mg 2-17 tablet by [facility] tablet 00:00: mouth at [place] [address] bedtime. Medical Branch ezetimibe 0 Yes [id number] 10mg Take 1 Un marcie 10 mg 2-17 tablet by [facility] tablet 00:00: mouth in [place] 00 the Medical morning. Branch traZODone 2022-0 Yes [id number] 50mg Take 1 Un mar[facility] 50 mg 2-17 tablet by [facility] tablet 00:00: mouth at [place] 00 bedtime as Medical needed for Branch Insomnia. mupirocin 2 0 Yes [id number] Apply to [facility] % ointment 2-17 area(s) at [facility] 00:00: bedtime as [place] [address] needed for Medical Rash. Branch rosuvastati 0 Yes [id number] 10mg Take 1 [facility] n 10 mg 2-17 tablet by [facility] tablet 00:00: mouth at [place] 00 bedtime. Medical Branch ezetimibe 0 Yes [id number] 10mg Take 1 Un mar[facility] 10 mg 2-17 tablet by [facility] tablet 00:00: mouth in [place] 00 the Medical morning. Branch traZODone 0 Yes [id number] 50mg Take 1 Un [facility] 50 mg 2-17 tablet by [facility] tablet 00:00: mouth at [place] 00 bedtime as Medical needed for Branch Insomnia. mupirocin 2 0 Yes [id number] Apply to [facility] % ointment 2-17 area(s) at [facility] 00:00: bedtime as [place] [address] needed for Medical Rash. Branch rosuvastati Yes [id number] 10mg Take 1 [facility] n 10 mg 2-17 tablet by [facility] tablet 00:00: mouth at [place] [address] bedtime. Medical Branch ezetimibe 0 Yes [id number] 10mg Take 1 Un mar[facility] 10 mg 2-17 tablet by [facility] tablet 00:00: mouth in [place] 00 the Medical morning. Branch traZODone 2022-0 Yes [id number] 50mg Take 1 Un [facility] 50 mg 2-17 tablet by [facility] tablet 00:00: mouth at [place] 00 bedtime as Medical needed for Branch Insomnia. mupirocin 2 0 Yes [id number] Apply to [facility] % ointment 2-17 area(s) at [facility] 00:00: bedtime as [place] 00 needed for Medical Rash. Branch rosuvastati 0 Yes [id number] 10mg Take 1 [facility] n 10 mg 2-17 tablet by [facility] tablet 00:00: mouth at [place] [address] bedtime. Medical Branch ezetimibe 2022-0 Yes [id number] 10mg Take 1 Un [facility] 10 mg 2-17 tablet by [facility] tablet 00:00: mouth in [place] 00 the Medical morning. Branch traZODone 2022-0 Yes [id number] 50mg Take 1 Un [facility] 50 mg 2-17 tablet by [facility] tablet 00:00: mouth at [place] 00 bedtime as Medical needed for Branch Insomnia. mupirocin 2 2022-0 Yes [id number] Apply to [facility] % ointment 2-17 area(s) at [facility] 00:00: bedtime as [place] 00 needed for Medical Rash. Branch rosuvastati 2022-0 Yes [id number] 10mg Take 1 [facility] n 10 mg 2-17 tablet by [facility] tablet 00:00: mouth at [place] 00 bedtime. Medical Branch ezetimibe 2022-0 Yes [id number] 10mg Take 1 [facility] 10 mg 2-17 tablet by [facility] tablet 00:00: mouth in [place] the Medical morning. Branch traZODone 2022-0 Yes [id number] 50mg Take 1 Un [facility] 50 mg 2-17 tablet by [facility] tablet 00:00: mouth at [place] 00 bedtime as Medical needed for Branch Insomnia. mupirocin 2 2022-0 Yes [id number] Apply to [facility] % ointment 2-17 area(s) at [facility] 00:00: bedtime as [place] 00 needed for Medical Rash. Branch rosuvastati 2022-0 Yes [id number] 10mg Take 1 [facility] n 10 mg 2-17 tablet by [facility] tablet 00:00: mouth at [place] 00 bedtime. Medical Branch ezetimibe 2022-0 Yes [id number] 10mg Take 1 [facility] 10 mg 2-17 tablet by [facility] tablet 00:00: mouth in [place] 00 the Medical morning. Branch traZODone 2022-0 Yes [id number] 50mg Take 1 Un [facility] 50 mg 2-17 tablet by [facility] tablet 00:00: mouth at [place] 00 bedtime as Medical needed for Branch Insomnia. mupirocin 2 2022-0 Yes [id number] Apply to [facility] % ointment 2-17 area(s) at [facility] 00:00: bedtime as [place] 00 needed for Medical Rash. Branch rosuvastati 2022-0 Yes [id number] 10mg Take 1 [facility] n 10 mg 2-17 tablet by [facility] tablet 00:00: mouth at [place] 00 bedtime. Medical Branch ezetimibe 2022-0 Yes [id number] 10mg Take 1 [facility] 10 mg 2-17 tablet by [facility] tablet 00:00: mouth in [place] 00 the Medical morning. Branch traZODone 2022-0 Yes [id number] 50mg Take 1 Un [facility] 50 mg 2-17 tablet by [facility] tablet 00:00: mouth at [place] 00 bedtime as Medical needed for Branch Insomnia. mupirocin 2 0 Yes [id number] Apply to [facility] % ointment 2-17 area(s) at [facility] 00:00: bedtime as [place] [address] needed for Medical Rash. Branch rosuvastati 2022-0 Yes [id number] 10mg Take 1 [facility] n 10 mg 2-17 tablet by [facility] tablet 00:00: mouth at [place] 00 bedtime. Medical Branch ezetimibe 2022-0 Yes [id number] 10mg Take 1 [facility] 10 mg 2-17 tablet by [facility] tablet 00:00: mouth in [place] the Medical morning. Branch traZODone 2022-0 Yes [id number] 50mg Take 1 Un [facility] 50 mg 2-17 tablet by [facility] tablet 00:00: mouth at [place] 00 bedtime as Medical needed for Branch Insomnia. mupirocin 2 2022-0 Yes [id number] Apply to [facility] % ointment 2-17 area(s) at [facility] 00:00: bedtime as [place] 00 needed for Medical Rash. Branch rosuvastati 2022-0 Yes [id number] 10mg Take 1 [facility] n 10 mg 2-17 tablet by [facility] tablet 00:00: mouth at [place] 00 bedtime. Medical Branch ezetimibe 2022-0 Yes [id number] 10mg Take 1 Un mar[facility] 10 mg 2-17 tablet by [facility] tablet 00:00: mouth in [place] the Medical morning. Branch traZODone 2022-0 Yes [id number] 50mg Take 1 Un mar[facility] 50 mg 2-17 tablet by [facility] tablet 00:00: mouth at [place] 00 bedtime as Medical needed for Branch Insomnia. mupirocin 2 2022-0 Yes [id number] Apply to [facility] % ointment 2-17 area(s) at [facility] 00:00: bedtime as [place] 00 needed for Medical Rash. Branch rosuvastati 2022-0 Yes [id number] 10mg Take 1 [facility] n 10 mg 2-17 tablet by [facility] tablet 00:00: mouth at [place] [address] bedtime. Medical Branch ezetimibe 2022-0 Yes [id number] 10mg Take 1 Un [facility] 10 mg 2-17 tablet by [facility] tablet 00:00: mouth in [place] 00 the Medical morning. Branch traZODone 2022-0 Yes [id number] 50mg Take 1 Un [facility] 50 mg 2-17 tablet by [facility] tablet 00:00: mouth at [place] 00 bedtime as Medical needed for Branch Insomnia. mupirocin 2 0 Yes [id number] Apply to [facility] % ointment 2-17 area(s) at [facility] of 00:00: bedtime as [place] [address] needed for Medical Rash. Branch rosuvastati 2022-0 Yes [id number] 10mg Take 1 [facility] n 10 mg 2-17 tablet by [facility] of tablet 00:00: mouth at [place] [address] bedtime. Medical Branch ezetimibe 2022-0 Yes [id number] 10mg Take 1 Un [facility] 10 mg 2-17 tablet by [facility] tablet 00:00: mouth in [place] 00 the Medical morning. Branch traZODone 2022-0 Yes [id number] 50mg Take 1 Un [facility] 50 mg 2-17 tablet by [facility] tablet 00:00: mouth at [place] 00 bedtime as Medical needed for Branch Insomnia. mupirocin 2 2022-0 Yes [id number] Apply to [facility] % ointment 2-17 area(s) at [facility] 00:00: bedtime as [place] 00 needed for Medical Rash. Branch rosuvastati 2022-0 Yes [id number] 10mg Take 1 [facility] n 10 mg 2-17 tablet by [facility] tablet 00:00: mouth at [place] [address] bedtime. Medical Branch ezetimibe 2022-0 Yes [id number] 10mg Take 1 Un [facility] 10 mg 2-17 tablet by [facility] tablet 00:00: mouth in [place] 00 the Medical morning. Branch traZODone 2022-0 Yes [id number] 50mg Take 1 Un [facility] 50 mg 2-17 tablet by [facility] tablet 00:00: mouth at [place] 00 bedtime as Medical needed for Branch Insomnia. mupirocin 2 2022-0 Yes [id number] Apply to [facility] % ointment 2-17 area(s) at [facility] 00:00: bedtime as [place] 00 needed for Medical Rash. Branch rosuvastati 2022-0 Yes [id number] 10mg Take 1 [facility] n 10 mg 2-17 tablet by [facility] tablet 00:00: mouth at [place] 00 bedtime. Medical Branch ezetimibe 2022-0 Yes [id number] 10mg Take 1 Un [facility] 10 mg 2-17 tablet by [facility] tablet 00:00: mouth in [place] 00 the Medical morning. Branch traZODone 2022-0 Yes [id number] 50mg Take 1 Un [facility] 50 mg 2-17 tablet by [facility] tablet 00:00: mouth at [place] [address] bedtime as Medical needed for Branch Insomnia. mupirocin 2 0 Yes [id number] Apply to [facility] % ointment 2-17 area(s) at [facility] of 00:00: bedtime as [place] [address] needed for Medical Rash. Branch rosuvastati 2022-0 Yes [id number] 10mg Take 1 [facility] n 10 mg 2-17 tablet by [facility] tablet 00:00: mouth at [place] 00 bedtime. Medical Branch ezetimibe 2022-0 Yes [id number] 10mg Take 1 Un [facility] 10 mg 2-17 tablet by [facility] tablet 00:00: mouth in [place] 00 the Medical morning. Branch traZODone 2022-0 Yes [id number] 50mg Take 1 Un [facility] 50 mg 2-17 tablet by [facility] tablet 00:00: mouth at [place] 00 bedtime as Medical needed for Branch Insomnia. mupirocin 2 2022-0 Yes [id number] Apply to [facility] % ointment 2-17 area(s) at [facility] of 00:00: bedtime as [place] 00 needed for Medical Rash. Branch rosuvastati 2022-0 Yes [id number] 10mg Take 1 [facility] n 10 mg 2-17 tablet by [facility] tablet 00:00: mouth at [place] [address] bedtime. Medical Branch ezetimibe 2022-0 Yes [id number] 10mg Take 1 [facility] 10 mg 2-17 tablet by [facility] tablet 00:00: mouth in [place] 00 the Medical morning. Branch traZODone 2022-0 Yes [id number] 50mg Take 1 Un [facility] 50 mg 2-17 tablet by [facility] tablet 00:00: mouth at [place] 00 bedtime as Medical needed for Branch Insomnia. mupirocin 2 2022-0 Yes [id number] Apply to [facility] % ointment 2-17 area(s) at [facility] of 00:00: bedtime as [place] 00 needed for Medical Rash. Branch rosuvastati 2022-0 Yes [id number] 10mg Take 1 [facility] n 10 mg 2-17 tablet by [facility] tablet 00:00: mouth at [place] 00 bedtime. Medical Branch ezetimibe 2022-0 Yes [id number] 10mg Take 1 [facility] 10 mg 2-17 tablet by [facility] tablet 00:00: mouth in [place] 00 the Medical morning. Branch traZODone 2022-0 Yes [id number] 50mg Take 1 Un [facility] 50 mg 2-17 tablet by [facility] tablet 00:00: mouth at [place] 00 bedtime as Medical needed for Branch Insomnia. mupirocin 2 2022-0 Yes [id number] Apply to [facility] % ointment 2-17 area(s) at [facility] of 00:00: bedtime as [place] [address] needed for Medical Rash. Branch rosuvastati 2022-0 Yes [id number] 10mg Take 1 [facility] n 10 mg 2-17 tablet by [facility] of tablet 00:00: mouth at [place] 00 bedtime. Medical Branch ezetimibe 2022-0 Yes [id number] 10mg Take 1 [facility] 10 mg 2-17 tablet by [facility] tablet 00:00: mouth in [place] 00 the Medical morning. Branch traZODone 2022-0 Yes [id number] 50mg Take 1 Un [facility] 50 mg 2-17 tablet by [facility] tablet 00:00: mouth at [place] 00 bedtime as Medical needed for Branch Insomnia. mupirocin 2 2022-0 Yes [id number] Apply to [facility] % ointment 2-17 area(s) at [facility] of 00:00: bedtime as [place] 00 needed for Medical Rash. Branch rosuvastati 2022-0 Yes [id number] 10mg Take 1 [facility] n 10 mg 2-17 tablet by [facility] of tablet 00:00: mouth at [place] 00 bedtime. Medical Branch ezetimibe Yes [id number] 10mg Take 1 [facility] 10 mg 2-17 tablet by [facility] tablet 00:00: mouth in [place] 00 the Medical morning. Branch traZODone Yes [id number] 50mg Take 1 Un [facility] 50 mg 2-17 tablet by [facility] tablet 00:00: mouth at [place] 00 bedtime as Medical needed for Branch Insomnia. mupirocin 2 Yes [id number] Apply to [facility] % ointment 2-17 area(s) at [facility] of 00:00: bedtime as [place] [address] needed for Medical Rash. Branch rosuvastati Yes [id number] 10mg Take 1 [facility] n 10 mg 2-17 tablet by [facility] of tablet 00:00: mouth at [place] [address] bedtime. Medical Branch ezetimibe Yes [id number] 10mg Take 1 U nivers 10 mg 2-07 tablet by [facility] of tablet 00:00: mouth in [place] 00 the Medical morning. Branch metoprolol Yes [id number] 25mg Take 1 U nivers tartrate 25 2-07 tablet by [facility] of mg tablet 00:00: mouth in [facility] s 00 the Medical morning Branch and 1 tablet in the evening. apixaban Yes [id number] 5mg Take 1 [facility] (ELIQUIS) 5 2-07 tablet by it[facility] of mg tablet 00:00: mouth in [facility] s 00 the Medical morning Branch and 1 tablet in the evening. Indication s: atrial fibrillati on cetirizine Yes [id number] 10mg Take 1 [facility] (ZYRTEC) 10 2-07 tablet by ity of mg tablet 00:00: mouth in [place] [facility] 00 the Medical morning. Branch ezetimibe Yes [id number] 10mg Take 1 U nivers 10 mg 2-07 tablet by [facility] of tablet 00:00: mouth in [place] 00 the Medical morning. Branch metoprolol Yes [id number] 25mg Take 1 U nivers tartrate 25 2-07 tablet by ity of mg tablet 00:00: mouth in [facility] 00 the Medical morning Branch and 1 tablet in the evening. apixaban 2022-0 Yes [id number] 5mg Take 1 [facility] (ELIQUIS) 5 2-07 tablet by [facility] mg tablet 00:00: [place] 00 the Medical morning Branch and 1 tablet in the evening. Indication s: atrial fibrillati on cetirizine 2022-0 Yes [id number] 10mg Take 1 [facility] (ZYRTEC) 10 2-07 tablet by [facility] mg tablet 00:00: [place] 00 the Medical morning. Branch ezetimibe 2022-0 Yes [id number] 10mg Take 1 [facility] n[facility] 10 mg 2-07 tablet by it[facility] of tablet 00:00: mouth in [place] 00 the Medical morning. Branch metoprolol 2022-0 Yes [id number] 25mg Take 1 U nivers tartrate 25 [...] s: atrial fibrillati on cetirizine 2022-0 Yes [id number] 10mg Take 1 [facility] (ZYRTEC) 10 2-07 tablet by [facility] mg tablet 00:00: [place] 00 the Medical morning. Branch ezetimibe 2022-0 Yes [id number] 10mg Take 1 [facility] nivers 10 mg 2-07 tablet by ity of tablet 00:00: mouth in [place] 00 the Medical morning. Branch metoprolol 2022-0 Yes [id number] 25mg Take 1 U nivers tartrate 25 [...] s: atrial fibrillati on cetirizine 2022-0 Yes [id number] 10mg Take 1 [facility] (ZYRTEC) 10 2-07 tablet by [facility] mg tablet 00:00: [place] [facility] the [facility] morning. Branch ezetimibe 2022-0 Yes [id number] 10mg Take 1 U nivers 10 mg 2-07 tablet by ity of tablet 00:00: mouth in [place] [address] the [facility] morning. Branch metoprolol 2022-0 Yes [id number] 25mg Take 1 U nivers tartrate 25 2-07 tablet by ity of mg tablet 00:00: mouth in [place] [address] the [facility] morning Branch and 1 tablet in the evening. apixaban 2022-0 Yes [id number] 5mg Take 1 [facility] (ELIQUIS) 5 2-07 tablet by ity of mg tablet 00:00: mouth in [place] [address] the [facility] morning Branch and 1 tablet in the evening. Indication s: atrial fibrillati on metoprolol 2022-0 Yes [id number] 25mg Take 1 U nivers tartrate 25 2-07 tablet by ity of mg tablet 00:00: mouth in [place] [address] the [facility] morning Branch and 1 tablet in the evening. apixaban 2022-0 Yes [id number] 5mg Take 1 [facility] (ELIQUIS) 5 2-07 tablet by ity of mg tablet 00:00: mouth in [place] [address] the [facility] morning Branch and 1 tablet in the evening. Indication s: atrial fibrillati on metoprolol 2022-0 Yes [id number] 25mg Take 1 U nivers tartrate 25 2-07 tablet by ity of mg tablet 00:00: mouth in [place] [address] the [facility] morning Branch and 1 tablet in the evening. apixaban 2022-0 Yes [id number] 5mg Take 1 [facility] (ELIQUIS) 5 2-07 tablet by ity of mg tablet 00:00: mouth in [place] [address] the [facility] morning Branch and 1 tablet in the evening. Indication s: atrial fibrillati on metoprolol 2022-0 Yes [id number] 25mg Take 1 U nivers tartrate 25 2-07 tablet by [facility] mg tablet 00:00: [place] [facility] the [facility] morning Branch and 1 tablet in the evening. apixaban 2022-0 Yes [id number] 5mg Take 1 [facility] (ELIQUIS) 5 2-07 tablet by [facility] mg tablet 00:00: [place] [facility] the [facility] morning Branch and 1 tablet in the evening. Indication s: atrial fibrillati on metoprolol 2022-0 Yes [id number] 25mg Take 1 U nivers tartrate 25 [...] s: atrial fibrillati on metoprolol 2022-0 Yes [id number] 25mg Take 1 U nivers tartrate 25 [...] s: atrial fibrillati on metoprolol 2022-0 Yes [id number] 25mg Take 1 U nivers tartrate 25 [...] s: atrial fibrillati on metoprolol 2022-0 Yes [id number] 25mg Take 1 U nivers tartrate 25 [...] s: atrial fibrillati on metoprolol 3-0 Yes [id number] 25mg Take 1 U nivers tartrate 25 [...] s: atrial fibrillati on metoprolol 2022-0 Yes [id number] 25mg Take 1 U nivers tartrate 25 [...] s: atrial fibrillati on metoprolol 2022-0 Yes [id number] 25mg Take 1 U nivers tartrate 25 [...] s: atrial fibrillati on metoprolol 2022-0 Yes [id number] 25mg Take 1 U nivers tartrate 25 [...] s: atrial fibrillati on metoprolol 3-0 Yes [id number] 25mg Take 1 [facility] nivers tartrate 25 [...] s: atrial fibrillati on metoprolol 2022-0 Yes [id number] 25mg Take 1 U nivers tartrate 25 [...] s: atrial fibrillati on metoprolol 2022-0 Yes [id number] 25mg Take 1 U nivers tartrate 25 [...] s: atrial fibrillati on metoprolol 2022-0 Yes [id number] 25mg Take 1 U nivers tartrate 25 [...] s: atrial fibrillati on metoprolol 2022-0 Yes [id number] 25mg Take 1 U nivers tartrate 25 [...] s: atrial fibrillati on metoprolol 3-0 Yes [id number] 25mg Take 1 U nivers tartrate 25 [...] s: atrial fibrillati on metoprolol 2022-0 Yes [id number] 25mg Take 1 U nivers tartrate 25 [...] s: atrial fibrillati on metoprolol 2022-0 Yes [id number] 25mg Take 1 U nivers tartrate 25 [...] s: atrial fibrillati on metoprolol 2022-0 Yes [id number] 25mg Take 1 U nivers tartrate 25 [...] s: atrial fibrillati on metoprolol 3-0 Yes [id number] 25mg Take 1 U nivers tartrate 25 [...] s: atrial fibrillati on metoprolol 2022-0 Yes [id number] 25mg Take 1 U nivers tartrate 25 [...] s: atrial fibrillati on metoprolol 2022-0 Yes [id number] 25mg Take 1 U nivers tartrate 25 [...] s: atrial fibrillati on metoprolol 2022-0 Yes [id number] 25mg Take 1 U nivers tartrate 25 [...] s: atrial fibrillati on metoprolol 2022-0 Yes [id number] 25mg Take 1 [facility] nivers tartrate 25 2-07 tablet by [facility] mg tablet 00:00: [place] 00 the Medical morning Branch and 1 tablet in the evening. metoprolol 3-0 Yes [id number] 25mg Take 1 U nivers tartrate 25 2-07 tablet by [facility] mg tablet 00:00: mouth [place] 00 the Medical morning Branch and 1 tablet in the evening. metoprolol 3-0 Yes [id number] 25mg Take 1 U nivers tartrate 25 2-07 tablet by [facility] mg tablet 00:00: mouth [place] 00 the Medical morning Branch and 1 tablet in the evening. metoprolol 3-0 Yes [id number] 25mg Take 1 U nivers tartrate 25 2-07 tablet by [facility] of mg tablet 00:00: mouth [place] 00 the Medical morning Branch and 1 tablet in the evening. metoprolol 3-0 Yes [id number] 25mg Take 1 U nivers tartrate 25 2-07 tablet by [facility] of mg tablet 00:00: mouth [place] 00 the Medical morning Branch and 1 tablet in the evening. metoprolol 2022-0 Yes [id number] 25mg Take 1 U nivers tartrate 25 2-07 tablet by [facility] of mg tablet 00:00: mouth [place] 00 the Medical morning Branch and 1 tablet in the evening. metoprolol 3-0 Yes [id number] 25mg Take 1 U nivers tartrate 25 2-07 tablet by [facility] of mg tablet 00:00: mouth [place] 00 the Medical morning Branch and 1 tablet in the evening. metoprolol 2022-0 Yes [id number] 25mg Take 1 U nivers tartrate 25 2-07 tablet by [facility] of mg tablet 00:00: mouth [place] 00 the Medical morning Branch and 1 tablet in the evening. metoprolol 3-0 Yes [id number] 25mg Take 1 U nivers tartrate 25 2-07 tablet by [facility] of mg tablet 00:00: mouth [place] 00 the Medical morning Branch and 1 tablet in the evening. metoprolol 2022-0 Yes [id number] 25mg Take 1 U nivers tartrate 25 2-07 tablet by [facility]y of mg tablet 00:00: mouth [place] 00 the Medical morning Branch and 1 tablet in the evening. metoprolol 3-0 Yes [id number] 25mg Take 1 U nivers tartrate 25 2-07 tablet by [facility]y of mg tablet 00:00: mouth [place] 00 the Medical morning Branch and 1 tablet in the evening. metoprolol 3-0 Yes [id number] 25mg Take 1 U nivers tartrate 25 2-07 tablet by [facility] of mg tablet 00:00: mouth [place] 00 the Medical morning Branch and 1 tablet in the evening. metoprolol 3-0 Yes [id number] 25mg Take 1 U nivers tartrate 25 2-07 tablet by [facility]y of mg tablet 00:00: mouth [place] 00 the Medical morning Branch and 1 tablet in the evening. metoprolol 2022-0 Yes [id number] 25mg Take 1 U nivers tartrate 25 2-07 tablet by [facility] of mg tablet 00:00: mouth [place] 00 the Medical morning Branch and 1 tablet in the evening. metoprolol 0 Yes [id number] 25mg Take 1 U nivers tartrate 25 2-07 tablet by [facility] of mg tablet 00:00: mouth [place] 00 the Medical morning Branch and 1 tablet in the evening. apixaban 2022- No 1358 5mg Take 1 [facility] (ELIQUIS) 5 2 05-22 tablet by it y of mg tablet 00:00: 00:00 mouth in [place] 00 :00 the Medical morning Branch and 1 tablet in the evening. Indication s: atrial fibrillati on ezetimibe 2022- No [id number] 10mg Take 1 [facility] 10 mg 2- tablet by ity of tablet 00:00: 00:00 mouth in [place] 00 :00 the Medical morning. Branch cetirizine 2022- No [id number] 10mg Take 1 [facility] (ZYRTEC) 10 03-17-17 tablet by it y of mg tablet 00:00: 00:00 mouth in [facility] as 00 :00 the Medical morning. Branch ezetimibe 2022- No [id number] 10mg Take 1 [facility] 10 mg 03-17- tablet by ity of tablet 00:00: 00:00 mouth in [place] 00 :00 the Medical morning. Branch cetirizine 2022- No [id number] 10mg Take 1 [facility] (ZYRTEC) 10 03-17-17 tablet by it y of mg tablet 00:00: 00:00 mouth in [place] 00 :00 the Medical morning. Branch traZODone 0 Yes [id number] 50mg Take 1 [facility] [place] 50 mg 1-25 tablet by ity of tablet 00:00: mouth at [place] [address] bedtime as Medical needed for Branch Insomnia. traZODone 2022-0 Yes [id number] 50mg Take 1 [facility] [place] 50 mg 1-25 tablet by ity of tablet 00:00: mouth at [place] 00 bedtime as Medical needed for Branch Insomnia. traZODone 0 Yes [id number] 50mg Take 1 [facility] [place] 50 mg 1-25 tablet by ity of tablet 00:00: mouth at [place] 00 bedtime as Medical needed for Branch Insomnia. traZODone 0 Yes [id number] 50mg Take 1 [facility] [place] 50 mg 1-25 tablet by ity of tablet 00:00: mouth at [place] 00 bedtime as Medical needed for Branch Insomnia. traZODone 0 Yes [id number] 50mg Take 1 [facility] [place] 50 mg 1-25 tablet by ity of tablet 00:00: mouth at [place] 00 bedtime as Medical needed for Branch Insomnia. traZODone 0 Yes [id number] 50mg Take 1 [facility] [place] 50 mg 1-25 tablet by ity of tablet 00:00: mouth at [place] [address] bedtime as Medical needed for Branch Insomnia. traZODone 0 Yes [id number] 50mg Take 1 [facility] [place] 50 mg 1-25 tablet by ity of tablet 00:00: mouth at [place] bedtime as Medical needed for Branch Insomnia. traZODone Yes [id number] 50mg Take 1 [facility] [place] 50 mg 1-25 tablet by ity of tablet 00:00: mouth at [place] bedtime as Medical needed for Branch Insomnia. traZODone 0 Yes [id number] 50mg Take 1 [facility] [place] 50 mg 1-25 tablet by ity of tablet 00:00: mouth at [place] bedtime as Medical needed for Branch Insomnia. traZODone 0 Yes [id number] 50mg Take 1 [facility] [place] 50 mg 1-25 tablet by ity of tablet 00:00: mouth at [place] bedtime as Medical needed for Branch Insomnia. traZODone 0 Yes [id number] 50mg Take 1 [facility] [place] 50 mg 1-25 tablet by ity of tablet 00:00: mouth at [place] 00 bedtime as Medical needed for Branch Insomnia. traZODone 0 Yes [id number] 50mg Take 1 [facility] [place] 50 mg 1-25 tablet by ity of tablet 00:00: mouth at [place] [address] bedtime as Medical needed for Branch Insomnia. traZODone 2023-0 Yes [id number] 50mg Take 1 [facility] [place] 50 mg 1-25 tablet by ity of tablet 00:00: mouth at [place] 00 bedtime as Medical needed for Branch Insomnia. traZODone Yes [id number] 50mg Take 1 [facility] [place] 50 mg 1-25 tablet by ity of tablet 00:00: mouth at [place] 00 bedtime as Medical needed for Branch Insomnia. traZODone 2022- No [id number] 50mg Take 1 U nivers 50 mg 1-25 02-17 tablet by ity of tablet 00:00: 00:00 mouth at [place] 00 :00 bedtime as Medical needed for Branch Insomnia. traZODone 2022- No [id number] 50mg Take 1 U nivers 50 mg 1-25 02-17 tablet by ity of tablet 00:00: 00:00 mouth at [place] 00 :00 bedtime as Medical needed for Branch Insomnia. traZODone 2021-02 Yes [id number] 50mg Take 1 [facility] [place] 50 mg 2-30 tablet by ity of tablet 00:00: mouth at [place] 00 bedtime as Medical needed for Branch Insomnia. PARoxetine 2021-02 Yes [id number] 10mg Take 1 U nivers 10 mg 2-30 tablet by ity of tablet 00:00: mouth in [place] 00 the Medical morning. Branch traZODone 2021-02 Yes [id number] 50mg Take 1 [facility] [place] 50 mg 2-30 tablet by ity of tablet 00:00: mouth at [place] 00 bedtime as Medical needed for Branch Insomnia. PARoxetine 2021-02 Yes [id number] 10mg Take 1 U nivers 10 mg 2-30 tablet by ity of tablet 00:00: mouth in [place] 00 the Medical morning. Branch traZODone 2021-02 Yes [id number] 50mg Take 1 [facility] [place] 50 mg 2-30 tablet by ity of tablet 00:00: mouth at [place] 00 bedtime as Medical needed for Branch Insomnia. PARoxetine 2021-02 Yes [id number] 10mg Take 1 U nivers 10 mg 2-30 tablet by ity of tablet 00:00: mouth in [place] 00 the Medical morning. Branch traZODone 2021-02 Yes [id number] 50mg Take 1 [facility] [place] 50 mg 2-30 tablet by ity of tablet 00:00: mouth at [place] [address] bedtime as Medical needed for Branch Insomnia. PARoxetine 2021-02 Yes [id number] 10mg Take 1 U nivers 10 mg 2-30 tablet by ity of tablet 00:00: mouth in [place] 00 the Medical morning. Branch traZODone 2021-02 Yes [id number] 50mg Take 1 [facility] [place] 50 mg 2-30 tablet by ity of tablet 00:00: mouth at [place] 00 bedtime as Medical needed for Branch Insomnia. PARoxetine 2021-02 Yes [id number] 10mg Take 1 U nivers 10 mg 2-30 tablet by ity of tablet 00:00: mouth in [place] 00 the Medical morning. Branch PARoxetine 2021-02 Yes [id number] 10mg Take 1 U nivers 10 mg 2-30 tablet by ity of tablet 00:00: mouth in [place] the Medical morning. Branch PARoxetine 2021-02 Yes [id number] 10mg Take 1 U nivers 10 mg 2-30 tablet by ity of tablet 00:00: mouth in [place] the Medical morning. Branch PARoxetine 2021-02 Yes [id number] 10mg Take 1 [facility] nivers 10 mg 2-30 tablet by ity of tablet 00:00: mouth in [place] the Medical morning. Branch PARoxetine 2021-02 Yes [id number] 10mg Take 1 U nivers 10 mg 2-30 tablet by ity of tablet 00:00: mouth in [place] the Medical morning. Branch PARoxetine 2021-02 Yes [id number] 10mg Take 1 [facility] nivers 10 mg 2-30 tablet by ity of tablet 00:00: mouth in [place] the Medical morning. Branch PARoxetine 2021-02 Yes [id number] 10mg Take 1 U nivers 10 mg 2-30 tablet by ity of tablet 00:00: mouth in [place] the Medical morning. Branch PARoxetine 2021-02 Yes [id number] 10mg Take 1 U nivers 10 mg 2-30 tablet by ity of tablet 00:00: mouth in [place] the Medical morning. Branch PARoxetine 2021-02 Yes [id number] 10mg Take 1 U nivers 10 mg 2-30 tablet by ity of tablet 00:00: mouth in [place] the Medical morning. Branch PARoxetine 2021-02 Yes [id number] 10mg Take 1 U nivers 10 mg 2-30 tablet by ity of tablet 00:00: mouth in [place] 00 the Medical morning. Branch PARoxetine 2021-02 Yes [id number] 10mg Take 1 U nivers 10 mg 2-30 tablet by ity of tablet 00:00: mouth in [place] 00 the Medical morning. Branch PARoxetine 2021-02 Yes [id number] 10mg Take 1 U nivers 10 mg 2-30 tablet by ity of tablet 00:00: mouth in [place] 00 the Medical morning. Branch PARoxetine 2021-02 Yes [id number] 10mg Take 1 U nivers 10 mg 2-30 tablet by ity of tablet 00:00: mouth in [place] 00 the Medical morning. Branch PARoxetine 2021-02 Yes [id number] 10mg Take 1 U nivers 10 mg 2-30 tablet by ity of tablet 00:00: mouth in [place] 00 the Medical morning. Branch PARoxetine 2021-02- No [id number] 10mg Take 1 [facility] 10 mg 2-30 02-17 tablet by ity of tablet 00:00: 00:00 mouth in [place] 00 :00 the Medical morning. Branch PARoxetine 2021-02- No [id number] 10mg Take 1 [facility] 10 mg 2-30 02-17 tablet by ity of tablet 00:00: 00:00 mouth in [place] 00 :00 the Medical morning. Branch traZODone 2021-02- No [id number] 50mg Take 1 U nivers 50 mg 2-30 01-25 tablet by ity of tablet 00:00: 00:00 mouth at [place] 00 :00 bedtime as Medical needed for [place] Insomnia. ELIQUIS 2021-02 Yes [id number] Take 1 U nivers mg tablet 2-16 tablet by ity o f 00:00: mouth [place] 00 twice Medical daily Branch ELIQUIS 5 2021-02 Yes [id number] Take 1 U nivers mg tablet 2-16 tablet by ity o f 00:00: mouth [place] 00 twice Medical daily Branch ELIQUIS 5 2021-02 Yes [id number] Take 1 U nivers mg tablet 2-16 tablet by ity o f 00:00: mouth [place] 00 twice Medical daily Branch ELIQUIS 5 2021-02 Yes [id number] Take 1 U nivers mg tablet 2-16 tablet by ity o f 00:00: mouth [place] 00 twice Medical daily Branch ELIQUIS 5 2021- Yes [id number] Take 1 U nivers mg tablet 2-16 tablet by ity o f 00:00: mouth [place] twice Medical daily Branch ELIQUIS 5 2021- Yes [id number] Take 1 U nivers mg tablet 2-16 tablet by ity o f 00:00: mouth [place] twice Medical daily Branch ELIQUIS 5 2021-02 Yes [id number] Take 1 U nivers mg tablet 2-16 tablet by ity o f 00:00: mouth [place] 00 twice Medical daily Branch ELIQUIS 5 2021-02 Yes [id number] Take 1 U nivers mg tablet 2-16 tablet by ity o f 00:00: mouth [place] twice Medical daily Branch ELIQUIS 5 2021-02 Yes [id number] Take 1 U nivers mg tablet 2-16 tablet by ity o f 00:00: mouth twice Medical daily Branch ELIQUIS 5 2021-02 Yes [id number] Take 1 U nivers mg tablet 2-16 tablet by ity o f 00:00: mouth [place] twice Medical daily Branch ELIQUIS 5 2021-02 Yes [id number] Take 1 U nivers mg tablet 2-16 tablet by ity o f 00:00: mouth [place] twice Medical daily Branch ELIQUIS 5 2021- Yes [id number] Take 1 U nivers mg tablet 2-16 tablet by ity o f 00:00: mouth [place] twice Medical daily Branch ELIQUIS 5 2021- Yes [id number] Take 1 U nivers mg tablet 2-16 tablet by ity o f 00:00: mouth [place] twice Medical daily Branch ELIQUIS 5 2021-02 Yes [id number] Take 1 U nivers mg tablet 2-16 tablet by ity o f 00:00: mouth [place] 00 twice Medical daily Branch ELIQUIS 5 2021- Yes [id number] Take 1 U nivers mg tablet 2-16 tablet by ity o f 00:00: mouth [place] 00 twice Medical daily Branch ELIQUIS 5 2021-02 Yes [id number] Take 1 U nivers mg tablet 2-16 tablet by ity o f 00:00: mouth [place] 00 twice Medical daily Branch ELIQUIS 5 2021-02- No [id number] Take 1 [facility] mg tablet 03-26- tablet by ity of 00:00: 00:00 mouth [place] 00 :00 twice Medical daily Branch ELIQUIS 5 2021-02- No [id number] Take 1 [facility] mg tablet 2-16 - tablet by ity of 00:00: 00:00 [facility] 00 :00 twice Medical daily Branch metoprolol 2021-02 Yes [id number] Take 1 U nivers tartrate 25 2-06 tablet by ity of mg tablet 00:00: mouth twice Medical daily Branch metoprolol 2021-02 Yes [id number] Take 1 U nivers tartrate 25 2-06 tablet by ity of mg tablet 00:00: [facility] twice Medical daily Branch metoprolol 2021-02 Yes [id number] Take 1 U nivers tartrate 25 2-06 tablet by ity of mg tablet 00:00: [facility] twice Medical daily Branch metoprolol 2021-02 Yes [id number] Take 1 U nivers tartrate 25 2-06 tablet by ity of mg tablet 00:00: [facility] twice Medical daily Branch metoprolol 2021-02 Yes [id number] Take 1 U nivers tartrate 25 2-06 tablet by ity of mg tablet 00:00: [facility] twice Medical daily Branch metoprolol 2021-02 Yes [id number] Take 1 U nivers tartrate 25 2-06 tablet by ity of mg tablet 00:00: [facility] twice Medical daily Branch metoprolol 2021-02 Yes [id number] Take 1 U nivers tartrate 25 2-06 tablet by ity of mg tablet 00:00: [facility] twice Medical daily Branch metoprolol 2021-02 Yes [id number] Take 1 U nivers tartrate 25 2-06 tablet by ity of mg tablet 00:00: [facility] twice Medical daily Branch metoprolol 2021-02 Yes [id number] Take 1 U nivers tartrate 25 2-06 tablet by ity of mg tablet 00:00: [facility] 00 twice Medical daily Branch metoprolol 2021-02 Yes [id number] Take 1 U nivers tartrate 25 2-06 tablet by ity of mg tablet 00:00: [facility] twice Medical daily Branch metoprolol 2021-02 Yes [id number] Take 1 U nivers tartrate 25 2-06 tablet by ity of mg tablet 00:00: mouth [place] 00 twice Medical daily Branch metoprolol 2021-02 Yes [id number] Take 1 U nivers tartrate 25 2-06 tablet by ity of mg tablet 00:00: mouth [place] 00 twice Medical daily Branch metoprolol 2021-02 Yes [id number] Take 1 U nivers tartrate 25 2-06 tablet by ity of mg tablet 00:00: mouth [place] 00 twice Medical daily Branch metoprolol 2021-02 Yes [id number] Take 1 U nivers tartrate 25 2-06 tablet by ity of mg tablet 00:00: mouth [place] 00 twice Medical daily Branch metoprolol 2021-02 Yes [id number] Take 1 U nivers tartrate 25 2-06 tablet by ity of mg tablet 00:00: mouth [place] 00 twice Medical daily Branch metoprolol 2021-02 Yes [id number] Take 1 U nivers tartrate 25 2-06 tablet by ity of mg tablet 00:00: mouth [place] 00 twice Medical daily Branch metoprolol 2021-02 Yes [id number] Take 1 U nivers tartrate 25 2-06 tablet by ity of mg tablet 00:00: mouth [place] 00 twice Medical daily Branch metoprolol 2021-02 Yes [id number] Take 1 U nivers tartrate 25 2-06 tablet by ity of mg tablet 00:00: mouth [place] 00 twice Medical daily Branch metoprolol 2021-02- No [id number] Take 1 [facility] tartrate 25 2-06 02-07 tablet by it y of mg tablet 00:00: 00:00 mouth [place] 00 :00 twice Medical daily Branch metoprolol 2021-02- No [id number] Take 1 [facility] tartrate 25 2-06 02-07 tablet by it y of mg tablet 00:00: 00:00 mouth [place] 00 :00 twice Medical daily Branch diphenhydrA 2021- No [id number] 25mg [facility] MINE 10-27 ity of (BENADRYL) 15:15: 14:39 [place] 12.5 mg/5 00 :03 Medical mL solution Branch 25 mg cetirizine Yes [id number] 10mg Take 1 [facility] (ZYRTEC) 10 9-19 tablet by ity of mg tablet 00:00: mouth [place] 00 the Medical morning. Branch cetirizine 2021-0 Yes [id number] 10mg Take 1 [facility] (ZYRTEC) 10 9-19 tablet by ity of mg tablet 00:00: mouth [place] 00 the Medical morning. Branch cetirizine 2021-0 Yes [id number] 10mg Take 1 [facility] (ZYRTEC) 10 9-19 tablet by ity of mg tablet 00:00: mouth [place] 00 the Medical morning. Branch cetirizine 2021-0 Yes [id number] 10mg Take 1 [facility] (ZYRTEC) 10 9-19 tablet by ity of mg tablet 00:00: mouth [place] 00 the Medical morning. Branch cetirizine 2021-0 Yes [id number] 10mg Take 1 [facility] (ZYRTEC) 10 9-19 tablet by ity of mg tablet 00:00: mouth [place] 00 the Medical morning. Branch cetirizine 0 Yes [id number] 10mg Take 1 [facility] (ZYRTEC) 10 9-19 tablet by ity of mg tablet 00:00: mouth [place] 00 the Medical morning. Branch cetirizine 0 Yes [id number] 10mg Take 1 [facility] (ZYRTEC) 10 9-19 tablet by ity of mg tablet 00:00: mouth [place] 00 the Medical morning. Branch cetirizine 2021-0 Yes [id number] 10mg Take 1 [facility] (ZYRTEC) 10 9-19 tablet by ity of mg tablet 00:00: mouth [place] 00 the Medical morning. Branch cetirizine 2021-0 Yes [id number] 10mg Take 1 [facility] (ZYRTEC) 10 9-19 tablet by ity of mg tablet 00:00: mouth [place] 00 the Medical morning. Branch cetirizine 2021-0 Yes [id number] 10mg Take 1 [facility] (ZYRTEC) 10 9-19 tablet by ity of mg tablet 00:00: mouth [place] 00 the Medical morning. Branch cetirizine 2021-0 Yes [id number] 10mg Take 1 [facility] (ZYRTEC) 10 9-19 tablet by ity of mg tablet 00:00: mouth [place] 00 the Medical morning. Branch cetirizine 2021-0 Yes [id number] 10mg Take 1 [facility] (ZYRTEC) 10 9-19 tablet by ity of mg tablet 00:00: mouth [place] 00 the Medical morning. Branch cetirizine 2021-0 Yes [id number] 10mg Take 1 [facility] (ZYRTEC) 10 9-19 tablet by ity of mg tablet 00:00: mouth [place] 00 the Medical morning. Branch cetirizine 2021-0 Yes [id number] 10mg Take 1 [facility] (ZYRTEC) 10 9-19 tablet by ity of mg tablet 00:00: mouth [place] 00 the Medical morning. Branch cetirizine 2021-0 Yes [id number] 10mg Take 1 [facility] (ZYRTEC) 10 9-19 tablet by ity of mg tablet 00:00: mouth [place] 00 the Medical morning. Branch cetirizine 0 Yes [id number] 10mg Take 1 [facility] (ZYRTEC) 10 9-19 tablet by ity of mg tablet 00:00: mouth [place] 00 the Medical morning. Branch cetirizine 0 Yes [id number] 10mg Take 1 [facility] (ZYRTEC) 10 9-19 tablet by ity of mg tablet 00:00: mouth [place] 00 the Medical morning. Branch cetirizine 2021-0 Yes [id number] 10mg Take 1 [facility] (ZYRTEC) 10 9-19 tablet by ity of mg tablet 00:00: mouth [place] 00 the Medical morning. Branch cetirizine 2021-0 Yes [id number] 10mg Take 1 [facility] (ZYRTEC) 10 9-19 tablet by ity of mg tablet 00:00: mouth [place] 00 the Medical morning. Branch cetirizine 2021-0 Yes [id number] 10mg Take 1 [facility] (ZYRTEC) 10 9-19 tablet by ity of mg tablet 00:00: mouth [place] 00 the Medical morning. Branch cetirizine 2021-0 Yes [id number] 10mg Take 1 [facility] (ZYRTEC) 10 9-19 tablet by ity of mg tablet 00:00: mouth [place] 00 the Medical morning. Branch cetirizine 0 Yes [id number] 10mg Take 1 [facility] (ZYRTEC) 10 9-19 tablet by ity of mg tablet 00:00: mouth [place] 00 the Medical morning. Branch cetirizine 0 Yes [id number] 10mg Take 1 [facility] (ZYRTEC) 10 9-19 tablet by it[facility] of mg tablet 00:[place]: [place] 00 the Medical morning. Branch cetirizine 0 Yes [id number] 10mg Take 1 [facility] (ZYRTEC) 10 9-19 tablet by [facility] of mg tablet 00:00: [place] 00 the Medical morning. Branch cetirizine 0 Yes [id number] 10mg Take 1 [facility] (ZYRTEC) 10 9-19 tablet by [facility] mg tablet 00:00: [place] 00 the Medical morning. Branch cetirizine 0 Yes [id number] 10mg Take 1 [facility] (ZYRTEC) 10 9-19 tablet by [facility] of mg tablet 00:00: [place] 00 the Medical morning. Branch cetirizine 0 Yes [id number] 10mg Take 1 [facility] (ZYRTEC) 10 9-19 tablet by [facility] of mg tablet 00:00: [place] 00 the Medical morning. Branch cetirizine 0 Yes [id number] 10mg Take 1 [facility] (ZYRTEC) 10 9-19 tablet by [facility] of mg tablet 00:00: [place] 00 the Medical morning. Branch cetirizine 0 Yes [id number] 10mg Take 1 [facility] (ZYRTEC) 10 9-19 tablet by [facility] mg tablet 00:00: [place] 00 the Medical morning. Branch cetirizine 0 Yes [id number] 10mg Take 1 [facility] (ZYRTEC) 10 9-19 tablet by [facility] mg tablet 00:00: [place] 00 the Medical morning. Branch cetirizine 0 3- No [id number] 10mg Take 1 [facility] (ZYRTEC) 10 9-19 02-07 tablet by it y of mg tablet 00:00: 00:00 mouth in [place] 00 :00 the Medical morning. Branch cetirizine 3- No [id number] 10mg Take [address] [facility] (ZYRTEC) 10 10-27 tablet by it y of mg tablet 00:00: 00:00 mouth in [place] 00 :00 the Medical morning. Branch methylPREDN 0 Yes [id number] Take by [facility] 10-18 9107 mouth ity of (MEDROL, 00:00: SEE-INSTRU [place] SHAR,) 4 mg 00 CTIONS. Medica l tablets follow Branch package directions methylPREDN 0 Yes [id number] Take by [facility] 10-18 9107 mouth ity of (MEDROL, 00:00: SEE-INSTRU [place],) 4 mg 00 CTIONS. Medica l tablets follow Branch package directions methylPREDN 2021- No [id number] Take by [facility] 10-18 9107 mouth ity of (MEDROL, 00:00: [place]IN[place]AR[place] 4 mg 00 :00 CTIONS. Medica l tablets follow Branch package directions methylPREDN 0 2021- No [id number] Take by [facility] 10-18 9107 mouth ity of (MEDROL, 00:00: 00:00 [place]INSTRU [place] SHAR[place] 4 mg 00 :00 CTIONS. Medica l tablets follow Branch package directions mupirocin 2 0 Yes [id number] Apply to [facility] % ointment 8-02 area(s) 3 ity of 00:00: (three) [place] 00 times Medical daily. Branch mupirocin 2 2021-0 Yes [id number] Apply to [facility] % ointment 8-02 area(s) 3 ity of 00:00: (three) [place] 00 times Medical daily. Branch mupirocin 2 2021-0 Yes [id number] Apply to [facility] % ointment 8-02 area(s) 3 ity of 00:00: (three) [place] 00 times Medical daily. Branch mupirocin 2 2021-0 Yes [id number] Apply to [facility] % ointment 8-02 area(s) 3 ity of 00:00: (three) [place] 00 times Medical daily. Branch mupirocin 2 2022-0 Yes [id number] Apply to [facility] % ointment 8-02 area(s) 3 ity of 00:00: (three) [place] 00 times Medical daily. Branch mupirocin 2 2-0 Yes [id number] Apply to [facility] % ointment 8-02 area(s) 3 ity of 00:00: (three) [place] 00 times Medical daily. Branch mupirocin 2 2-0 Yes [id number] Apply to [facility] % ointment 8-02 area(s) 3 ity of 00:00: (three) [place] 00 times Medical daily. Branch mupirocin 2 2-0 Yes [id number] Apply to [facility] % ointment 8-02 area(s) 3 ity of 00:00: (three) [place] 00 times Medical daily. Branch mupirocin 2 2-0 Yes [id number] Apply to [facility] % ointment 8-02 area(s) 3 ity of 00:00: (three) [place] 00 times Medical daily. Branch mupirocin 2 2-0 Yes [id number] Apply to [facility] % ointment 8-02 area(s) 3 ity of 00:00: (three) [place] 00 times Medical daily. Branch mupirocin 2 2-0 Yes [id number] Apply to [facility] % ointment 8-02 area(s) 3 ity of 00:00: (three) [place] 00 times Medical daily. Branch mupirocin 2 2-0 Yes [id number] Apply to [facility] % ointment 8-02 area(s) 3 ity of 00:00: (three) [place] 00 times Medical daily. Branch mupirocin 2 2-0 Yes [id number] Apply to [facility] % ointment 8-02 area(s) 3 ity of 00:00: (three) [place] 00 times Medical daily. Branch mupirocin 2 2-0 Yes [id number] Apply to [facility] % ointment 8-02 area(s) 3 ity of 00:00: (three) [place] 00 times Medical daily. Branch mupirocin 2 2022-0 Yes [id number] Apply to [facility] % ointment 8-02 area(s) 3 ity of 00:00: (three) [place] 00 times Medical daily. Branch mupirocin 2 2-0 Yes [id number] Apply to [facility] % ointment 8-02 area(s) 3 ity of 00:00: (three) [place] 00 times Medical daily. Branch mupirocin 2 2-0 Yes [id number] Apply to [facility] % ointment 8-02 area(s) 3 ity of 00:00: (three) [place] 00 times Medical daily. Branch mupirocin 2 2-0 Yes [id number] Apply to [facility] % ointment 8-02 area(s) 3 ity of 00:00: (three) [place] 00 times Medical daily. Branch mupirocin 2 2-0 Yes [id number] Apply to [facility] % ointment 8-02 area(s) 3 ity of 00:00: (three) [place] 00 times Medical daily. Branch mupirocin 2 2021-0 Yes [id number] Apply to [facility] % ointment 8-02 area(s) 3 ity of 00:00: (three) [place] 00 times Medical daily. Branch mupirocin 2 2-0 Yes [id number] Apply to [facility] % ointment 8-02 area(s) 3 ity of 00:00: (three) [place] 00 times Medical daily. Branch mupirocin 2 2021-0 Yes [id number] Apply to [facility] % ointment 8-02 area(s) 3 ity of 00:00: (three) [place] 00 times Medical daily. Branch mupirocin 2 2-0 Yes [id number] Apply to [facility] % ointment 8-02 area(s) 3 ity of 00:00: (three) [place] 00 times Medical daily. Branch mupirocin 2 2-0 Yes [id number] Apply to [facility] % ointment 8-02 area(s) 3 ity of 00:00: (three) [place] 00 times Medical daily. Branch mupirocin 2 2-0 Yes [id number] Apply to [facility] % ointment 8-02 area(s) 3 ity of 00:00: (three) [place] 00 times Medical daily. Branch mupirocin 2 2022-0 Yes [id number] Apply to [facility] % ointment 8-02 area(s) 3 ity of 00:00: (three) [place] 00 times Medical daily. Branch mupirocin 2 2022-0 Yes [id number] Apply to [facility] % ointment 8-02 area(s) 3 ity of 00:00: (three) [place] 00 times Medical daily. Branch mupirocin 2 2022-0 Yes [id number] Apply to [facility] % ointment 8-02 area(s) 3 ity of 00:00: (three) [place] 00 times Medical daily. Branch mupirocin 2 2022-0 Yes [id number] Apply to [facility] % ointment 8-02 area(s) 3 ity of 00:00: (three) [place] 00 times Medical daily. Branch mupirocin 2 2-0 Yes [id number] Apply to [facility] % ointment 8-02 area(s) 3 ity of 00:00: (three) [place] 00 times Medical daily. Branch mupirocin 2 2022-0 Yes [id number] Apply to [facility] % ointment 8-02 area(s) 3 ity of 00:00: (three) [place] 00 times Medical daily. Branch mupirocin 2 2022-0 Yes [id number] Apply to [facility] % ointment 8-02 area(s) 3 ity of 00:00: (three) [place] 00 times Medical daily. Branch mupirocin 2 2022-0 Yes [id number] Apply to [facility] % ointment 8-02 area(s) 3 ity of 00:00: (three) [place] 00 times Medical daily. Branch mupirocin 2 2022-0 Yes [id number] Apply to [facility] % ointment 8-02 area(s) 3 ity of 00:00: (three) [place] 00 times Medical daily. Branch mupirocin 2 2022-0 Yes [id number] Apply to [facility] % ointment 8-02 area(s) 3 ity of 00:00: (three) [place] 00 times Medical daily. Branch mupirocin 2 2022-0 Yes [id number] Apply to [facility] % ointment 8-02 area(s) 3 ity of 00:00: (three) [place] 00 times Medical daily. Branch mupirocin 2 2021-0 Yes [id number] Apply to [facility] % ointment 8-02 area(s) 3 ity of 00:00: (three) [place] 00 times Medical daily. Branch mupirocin 2 2021-0 Yes [id number] Apply to [facility] % ointment 8-02 area(s) 3 ity of 00:00: (three) [place] 00 times Medical daily. Branch mupirocin 2 2021-0 Yes [id number] Apply to [facility] % ointment 8-02 area(s) 3 ity of 00:00: (three) [place] 00 times Medical daily. Branch mupirocin 2 2021-0 2023- No [id number] Apply to [facility] % ointment 8-02 02-17 area(s) 3 ity of 00:00: 00:00 (three) [place] 00 :00 times Medical daily. Branch mupirocin 2 2021-0 2023- No [id number] Apply to [facility] % ointment 8-02 02-17 area(s) 3 ity of 00:00: 00:00 (three) [place] 00 :00 times Medical daily. Branch EZETIMIBE 2-0 Yes [id number] Take 1 [facility] 10 mg 7-26 tablet by ity of tablet 00:00: mouth once daily Medical Branch EZETIMIBE 2-0 Yes [id number] Take 1 [facility] nivers 10 mg 7-26 tablet by ity of tablet 00:00: mouth once daily Medical Branch EZETIMIBE 2-0 Yes [id number] Take 1 [facility] nivers 10 mg 7-26 tablet by ity of tablet 00:00: mouth once daily Medical Branch EZETIMIBE 2022-0 Yes [id number] Take 1 [facility] nivers 10 mg 7-26 tablet by ity of tablet 00:00: mouth once daily Medical Branch EZETIMIBE 2022-0 Yes [id number] Take 1 [facility] nivers 10 mg 7-26 tablet by ity of tablet 00:00: mouth once daily Medical Branch EZETIMIBE 2022-0 Yes [id number] Take 1 [facility] nivers 10 mg 7-26 tablet by ity of tablet 00:00: mouth once daily Medical Branch EZETIMIBE 2022-0 Yes [id number] Take 1 [facility] nivers 10 mg 7-26 tablet by ity of tablet 00:00: mouth once daily Medical Branch EZETIMIBE 2021-0 Yes [id number] Take 1 [facility] nivers 10 mg 7-26 tablet by ity of tablet 00:00: mouth once daily Medical Branch EZETIMIBE 2021-0 Yes [id number] Take 1 [facility] nivers 10 mg 7-26 tablet by ity of tablet 00:00: mouth once daily Medical Branch EZETIMIBE 2021-0 Yes [id number] Take 1 [facility] nivers 10 mg 7-26 tablet by ity of tablet 00:00: mouth once daily Medical Branch EZETIMIBE 2021-0 Yes [id number] Take 1 [facility] nivers 10 mg 7-26 tablet by ity of tablet 00:00: mouth once daily Medical Branch EZETIMIBE 2021-0 Yes [id number] Take 1 [facility] nivers 10 mg 7-26 tablet by ity of tablet 00:00: mouth once daily Medical Branch EZETIMIBE 2021-0 Yes [id number] Take 1 [facility] nivers 10 mg 7-26 tablet by ity of tablet 00:00: mouth once daily Medical Branch EZETIMIBE 2021-0 Yes [id number] Take 1 [facility] nivers 10 mg 7-26 tablet by ity of tablet 00:00: mouth once daily Medical Branch EZETIMIBE 2021-0 Yes [id number] Take 1 [facility] nivers 10 mg 7-26 tablet by ity of tablet 00:00: mouth once daily Medical Branch EZETIMIBE 2021-0 Yes [id number] Take 1 [facility] nivers 10 mg 7-26 tablet by ity of tablet 00:00: mouth once daily Medical Branch EZETIMIBE 2-0 Yes [id number] Take 1 [facility] nivers 10 mg 7-26 tablet by ity of tablet 00:00: mouth once daily Medical Branch EZETIMIBE 2-0 Yes [id number] Take 1 [facility] nivers 10 mg 7-26 tablet by ity of tablet 00:00: mouth once daily Medical Branch EZETIMIBE 2-0 Yes [id number] Take 1 [facility] nivers 10 mg 7-26 tablet by ity of tablet 00:00: mouth once daily Medical Branch EZETIMIBE 2022-0 Yes [id number] Take 1 [facility] nivers 10 mg 7-26 tablet by ity of tablet 00:00: mouth once daily Medical Branch EZETIMIBE 2-0 Yes [id number] Take 1 [facility] nivers 10 mg 7-26 tablet by ity of tablet 00:00: mouth once daily Medical Branch EZETIMIBE 2-0 Yes [id number] Take 1 [facility] nivers 10 mg 7-26 tablet by ity of tablet 00:00: mouth once daily Medical Branch EZETIMIBE 2-0 Yes [id number] Take 1 [facility] nivers 10 mg 7-26 tablet by ity of tablet 00:00: mouth once daily Medical Branch EZETIMIBE 2021-0 Yes [id number] Take 1 [facility] nivers 10 mg 7-26 tablet by ity of tablet 00:00: mouth once daily Medical Branch EZETIMIBE 2021-0 Yes [id number] Take 1 [facility] nivers 10 mg 7-26 tablet by ity of tablet 00:00: mouth once daily Medical Branch EZETIMIBE 2021-0 Yes [id number] Take 1 [facility] nivers 10 mg 7-26 tablet by ity of tablet 00:00: mouth once daily Medical Branch EZETIMIBE 2-0 Yes [id number] Take 1 [facility] nivers 10 mg 7-26 tablet by ity of tablet 00:00: mouth once daily Medical Branch EZETIMIBE 2-0 Yes [id number] Take 1 [facility] nivers 10 mg 7-26 tablet by ity of tablet 00:00: mouth once daily Medical Branch EZETIMIBE 2022-0 Yes [id number] Take 1 [facility] nivers 10 mg 7-26 tablet by ity of tablet 00:00: mouth once daily Medical Branch EZETIMIBE 2022-0 Yes [id number] Take 1 [facility] nivers 10 mg 7-26 tablet by ity of tablet 00:00: mouth once daily Medical Branch EZETIMIBE 2022-0 Yes [id number] Take 1 [facility] nivers 10 mg 7-26 tablet by ity of tablet 00:00: mouth once daily Medical Branch EZETIMIBE 2022-0 Yes [id number] Take 1 [facility] nivers 10 mg 7-26 tablet by ity of tablet 00:00: mouth once [place] 00 daily Medical Branch EZETIMIBE 2021-0 Yes [id number] Take 1 [facility] nivers 10 mg 7-26 tablet by ity of tablet 00:00: mouth once [place] 00 daily Medical Branch EZETIMIBE 2021-0 Yes [id number] Take 1 [facility] nivers 10 mg 7-26 tablet by ity of tablet 00:00: mouth once [place] 00 daily Medical Branch EZETIMIBE 2021-0 2023- No [id number] Take 1 [facility] 10 mg 7-26 02-07 tablet by ity of tablet 00:00: 00:[place] :00 daily Medical Branch EZETIMIBE 2021-0 3- No [id number] Take 1 [facility] 10 mg 7-26 02-07 [...] mEq by ity of 13:24: mouth 2 [place] [address] (two) Medical times Branch daily. KCL 10 mEq 2021-0 Yes 10meq Take 10 [facility] vers tablet 7-20 mEq by ity of 13:24: mouth 2 [place] [address] (two) Medical times Branch daily. KCL 10 mEq 2021-0 Yes 10meq Take 10 [facility] vers tablet 7-20 mEq by ity of 13:24: mouth 2 [place] [address] (two) Medical times Branch daily. KCL 10 mEq 2021-0 Yes 10meq Take 10 [facility] vers tablet 7-20 mEq by ity of 13:24: mouth 2 [place] [address] (two) Medical times Branch daily. KCL 10 mEq 2021-0 Yes 10meq Take 10 [facility] vers tablet 7-20 mEq by ity of 13:24: mouth 2 [place] [address] (two) Medical times Branch daily. KCL 10 mEq 2021-0 Yes 10meq Take 10 [facility] vers tablet 7-20 mEq by ity of 13:24: mouth 2 [place] [address] (two) Medical times Branch daily. KCL 10 mEq 2022-0 Yes 10meq Take 10 [facility] vers tablet 7-20 mEq by ity of 13:24: mouth 2 [place] 55 (two) Medical times Branch daily. KCL 10 mEq 2022-0 Yes 10meq Take 10 [facility] vers tablet 7-20 mEq by ity of 13:24: mouth 2 [place] 55 (two) Medical times Branch daily. KCL 10 mEq 2022-0 Yes 10meq Take 10 [facility] vers tablet 7-20 mEq by ity of 13:24: mouth 2 [place] 55 (two) Medical times Branch daily. KCL 10 mEq 2022-0 Yes 10meq Take 10 [facility] vers tablet 7-20 mEq by ity of 13:24: mouth 2 [place] 55 (two) Medical times Branch daily. KCL 10 mEq 2-0 Yes 10meq Take 10 [facility] vers tablet 7-20 mEq by ity of 13:24: mouth 2 [place] 55 (two) Medical times Branch daily. KCL 10 mEq 2-0 Yes 10meq Take 10 [facility] vers tablet 7-20 mEq by ity of 13:24: mouth 2 [place] [address] (two) Medical times Branch daily. KCL 10 mEq 2-0 Yes 10meq Take 10 [facility] vers tablet 7-20 mEq by ity of 13:24: mouth 2 [place] [address] (two) Medical times Branch daily. KCL 10 mEq 2-0 Yes 10meq Take 10 [facility] vers tablet 7-20 mEq by ity of 13:24: mouth 2 [place] 55 (two) Medical times Branch daily. KCL 10 mEq 2-0 Yes 10meq Take 10 [facility] vers tablet 7-20 mEq by ity of 13:24: mouth 2 [place] 55 (two) Medical times Branch daily. KCL 10 mEq 2-0 Yes 10meq Take 10 [facility] vers tablet 7-20 mEq by ity of 13:24: mouth 2 [place] 55 (two) Medical times Branch daily. KCL 10 mEq 2022-0 Yes 10meq Take 10 [facility] vers tablet 7-20 mEq by ity of 13:24: mouth 2 [place] 55 (two) Medical times Branch daily. KCL 10 mEq 2022-0 Yes 10meq Take 10 [facility] vers tablet 7-20 mEq by ity of 13:24: mouth 2 [place] 55 (two) Medical times Branch daily. KCL 10 mEq 2022-0 Yes 10meq Take 10 [facility] vers tablet 7-20 mEq by ity of 13:24: mouth 2 [place] 55 (two) Medical times Branch daily. KCL 10 mEq 2-0 Yes 10meq Take 10 [facility] vers tablet 7-20 mEq by ity of 13:24: mouth 2 [place] 55 (two) Medical times Branch daily. KCL 10 mEq 2-0 Yes 10meq Take 10 [facility] vers tablet 7-20 mEq by ity of 13:24: mouth 2 [place] 55 (two) Medical times Branch daily. KCL 10 mEq 2-0 Yes 10meq Take 10 [facility] vers tablet 7-20 mEq by ity of 13:24: mouth 2 [place] 55 (two) Medical times Branch daily. KCL 10 mEq 2-0 Yes 10meq Take 10 [facility] vers tablet 7-20 mEq by ity of 13:24: mouth 2 [place] 55 (two) Medical times Branch daily. KCL 10 mEq 2-0 Yes 10meq Take 10 [facility] vers tablet 7-20 mEq by ity of 13:24: mouth 2 [place] 55 (two) Medical times Branch daily. KCL 10 mEq 2-0 Yes 10meq Take 10 [facility] vers tablet 7-20 mEq by ity of 13:24: mouth 2 [place] 55 (two) Medical times Branch daily. KCL 10 mEq 2-0 Yes 10meq Take 10 [facility] vers tablet 7-20 mEq by ity of 13:24: mouth 2 [place] 55 (two) Medical times Branch daily. KCL 10 mEq 2-0 Yes 10meq Take 10 [facility] vers tablet 7-20 mEq by ity of 13:24: mouth 2 [place] 55 (two) Medical times Branch daily. KCL 10 mEq 2-0 Yes 10meq Take 10 [facility] vers tablet 7-20 mEq by ity of 13:24: mouth 2 [place] 55 (two) Medical times Branch daily. KCL 10 mEq 2-0 Yes 10meq Take 10 [facility] vers tablet 7-20 mEq by ity of 13:24: mouth 2 [place] 55 (two) Medical times Branch daily. KCL 10 mEq 2-0 Yes 10meq Take 10 [facility] vers tablet 7-20 mEq by ity of 13:24: mouth 2 [place] 55 (two) Medical times Branch daily. KCL 10 mEq 2-0 Yes 10meq Take 10 [facility] vers tablet 7-20 mEq by ity of 13:24: mouth 2 [place] 55 (two) Medical times Branch daily. KCL 10 mEq 2022-0 Yes 10meq Take 10 [facility] vers tablet 7-20 mEq by ity of 13:24: mouth 2 [place] 55 (two) Medical times Branch daily. KCL 10 mEq 2022-0 Yes 10meq Take 10 [facility] vers tablet 7-20 mEq by ity of 13:24: mouth 2 [place] 55 (two) Medical times Branch daily. KCL 10 mEq 2022-0 Yes 10meq Take 10 [facility] vers tablet 7-20 mEq by ity of 13:24: mouth 2 [place] 55 (two) Medical times Branch daily. KCL 10 mEq 2022-0 Yes 10meq Take 10 [facility] vers tablet 7-20 mEq by ity of 13:24: mouth 2 [place] 55 (two) Medical times Branch daily. KCL 10 mEq 2-0 Yes 10meq Take 10 [facility] vers tablet 7-20 mEq by ity of 13:24: mouth 2 [place] 55 (two) Medical times Branch daily. KCL 10 mEq 2-0 Yes 10meq Take 10 [facility] vers tablet 7-20 mEq by ity of 13:24: mouth 2 [place] [address] (two) Medical times Branch daily. KCL 10 mEq 2-0 Yes 10meq Take 10 [facility] vers tablet 7-20 mEq by ity of 13:24: mouth 2 [place] [address] (two) Medical times Branch daily. KCL 10 mEq 2-0 Yes 10meq Take 10 [facility] vers tablet 7-20 mEq by ity of 13:24: mouth 2 [place] 55 (two) Medical times Branch daily. KCL 10 mEq 2-0 Yes 10meq Take 10 [facility] vers tablet 7-20 mEq by ity of 13:24: mouth 2 [place] 55 (two) Medical times Branch daily. KCL 10 mEq 2-0 Yes 10meq Take 10 [facility] vers tablet 7-20 mEq by ity of 13:24: mouth 2 [place] 55 (two) Medical times Branch daily. KCL 10 mEq 2022-0 Yes 10meq Take 10 [facility] vers tablet 7-20 mEq by ity of 13:24: mouth 2 [place] 55 (two) Medical times Branch daily. KCL 10 mEq 2022-0 Yes 10meq Take 10 [facility] vers tablet 7-20 mEq by ity of 13:24: mouth 2 [place] 55 (two) Medical times Branch daily. KCL 10 mEq 2022-0 Yes 10meq Take 10 [facility] vers tablet 7-20 mEq by ity of 13:24: mouth 2 [place] [address] (two) Medical times Branch daily. KCL 10 mEq 2021-0 Yes 10meq Take 10 [facility] vers tablet 7-20 mEq by ity of 13:24: mouth 2 [place] [address] (two) Medical times Branch daily. KCL 10 mEq 2021-0 Yes 10meq Take 10 [facility] vers tablet 7-20 mEq by ity of 13:24: mouth 2 [place] 55 (two) Medical times Branch daily. KCL 10 mEq 2021-0 Yes 10meq Take 10 [facility] vers tablet 7-20 mEq by ity of 13:24: mouth 2 [place] 55 (two) Medical times Branch daily. KCL 10 mEq 2021-0 Yes 10meq Take 10 [facility] vers tablet 7-20 mEq by ity of 13:24: mouth 2 [place] [address] (two) Medical times Branch daily. KCL 10 mEq 2021-0 Yes 10meq Take 10 [facility] vers tablet 7-20 mEq by ity of 13:24: mouth 2 [place] [address] (two) Medical times Branch daily. KCL 10 mEq 2021-0 Yes 10meq Take 10 [facility] vers tablet 7-20 mEq by ity of 13:24: mouth 2 [place] [address] (two) Medical times Branch daily. KCL 10 mEq 2021-0 Yes 10meq Take 10 [facility] vers tablet 7-20 mEq by ity of 13:24: mouth 2 [place] [address] (two) Medical times Branch daily. traMADol 50 2021- No 50mg Take 50 mg [facility] mg tablet 08-27 by mouth ity o f 13:24: 00:00 every 6 [place] 48 :00 (six) Medical hours as Branch needed. bisacodyL 2021- No 5mg Take 5 mg [facility] mar[facility] (DULCOLAX, 08-27 by mouth ity of BISACODYL,) 13:23: 00:00 once daily [place] 5 mg EC 37 :00 as needed Medical tablet for Branch Constipati on. gluc 2021-0 2021- No Take by [facility] hernandez/chondro 08-27 mouth ity of hernandez A/vit 13:23: 00:00 every 12 [place] C/Mn 15 :00 (twelve) Medical (GLUCOSAMIN hours. Branch E 1500 COMPLEX ORAL) methylPREDN 2021-0 Yes [id number] Take by [facility] 08-27 9105 mouth ity of (MEDROL, 00:00: SEE-INSTRU [place] SHAR,) 4 mg 00 CTIONS. Medica l tablets follow Branch package directions methylPREDN 2021-0 Yes [id number] Take by [facility] 08-27 9105 mouth ity of (MEDROL, 00:00: SEE-INSTRU [place],) 4 mg 00 CTIONS. Medica l tablets follow Branch package directions methylPREDN 2-0 Yes [id number] Take by [facility] 08-27 9105 mouth ity of (MEDROL, 00:00: SEE-INSTRU [place],) 4 mg 00 CTIONS. Medica l tablets follow Branch package directions methylPREDN 2021-0 Yes [id number] Take by [facility] 08-27 9105 mouth ity of (MEDROL, 00:00: SEE-INSTRU [place],) 4 mg 00 CTIONS. Medica l tablets follow Branch package directions methylPREDN 2021-0 Yes [id number] Take by [facility] 08-27 9105 mouth ity of (MEDROL, 00:00: SEE-INSTRU [place],) 4 mg 00 CTIONS. Medica l tablets follow Branch package directions methylPREDN 2021-0 Yes [id number] Take by [facility] 08-27 9105 mouth ity of (MEDROL, 00:00: SEE-INSTRU [place],) 4 mg 00 CTIONS. Medica l tablets follow Branch package directions methylPREDN 2021-0 2022- No [id number] Take by [facility] 08-27 9105 mouth ity of (MEDROL, 00:00: 00:00 [place]-IN[place]AR[place] 4 mg 00 :00 CTIONS. Medica l tablets follow Branch package directions methylPREDN 2021-0 2022- No [id number] Take by [place] [id number] mouth ity of (MEDROL, 00:00: 00:00 [place] 4 mg 00 :00 CTIONS. Medica l tablets follow Branch package directions HYDROcodone 2021-0 2022- No 1{tbl} Take 1 U nivers -acetaminop 08-14 tablet by it y of hen 10-325 12:50: 00:00 mouth [place] mg tablet 10 :00 every 6 Medical (six) Branch hours as needed. HYDROcodone 2021-0 202- No 1{tbl} Take 1 U nivers -acetaminop 08-14- tablet by it y of hen 10-325 12:50: 00:00 mouth [place] mg tablet 10 :00 every 6 Medical (six) Branch hours as needed. methylPREDN 2021-0 Yes [id number] Take by [facility] ISolone 08-14 9106 mouth ity of (MEDROL, 00:00: SEE-INSTRU [place],) 4 mg 00 CTIONS. Medica l tablets follow Branch package directions mupirocin 2 2021-0 Yes [id number] Apply to [facility] % ointment -07 area(s) 3 ity of 00:00: (three) [place] 00 times Medical daily. Branch methylPREDN 2021-0 Yes [id number] Take by [facility] ISolone 08-14 9106 mouth ity of (MEDROL, 00:00: SEE-INSTRU [place]AR,) 4 mg 00 CTIONS. Medica l tablets follow Branch package directions mupirocin 2 2021-0 Yes [id number] Apply to [facility] % ointment 08-14 area(s) 3 ity of 00:00: (three) [place] 00 times Medical daily. Branch methylPREDN 2021-0 Yes [id number] Take by [facility] ISolone 08-14 9106 mouth ity of (MEDROL, 00:00: SEE-INSTRU [place],) 4 mg 00 CTIONS. Medica l tablets follow Branch package directions mupirocin 2 2021-0 Yes [id number] Apply to [facility] % ointment 7-07 area(s) 3 ity of 00:00: (three) [place] 00 times Medical daily. Branch methylPREDN 2022-0 Yes [id number] Take by [facility] ISolone 08-14 9106 mouth ity of (MEDROL, 00:00: SEE-INSTRU [place]AR,) 4 mg 00 CTIONS. Medica l tablets follow Branch package directions mupirocin 2 2021-0 Yes [id number] Apply to [facility] % ointment 7-07 area(s) 3 ity of 00:00: (three) [place] 00 times Medical daily. Branch mupirocin 2 Yes [id number] Apply to [facility] % ointment 08-14 area(s) 3 ity of 00:00: (three) [place] 00 times Medical daily. Branch mupirocin 2 0 Yes [id number] Apply to [facility] % ointment 08-14 area(s) 3 ity of 00:00: (three) [place] 00 times Medical daily. Branch mupirocin 2 0 Yes [id number] Apply to [facility] % ointment 08-14 area(s) 3 ity of 00:00: (three) [place] 00 times Medical daily. Branch mupirocin 2 2021- No [id number] Apply to [facility] % ointment 08-14 08-02 area(s) 3 ity of 00:00: 00:00 (three) [place] 00 :00 times Medical daily. Branch methylPREDN 2021- No [id number] Take by [facility] ISolone 08-1420 9106 mouth ity of (MEDROL, 00:00: 00:00 [place]INSTRU [place]AR[place] 4 mg 00 :00 CTIONS. Medica l tablets follow Branch package directions rosuvastati Yes [id number] 10mg Take 1 [facility] n 10 mg 7-06 tablet by ity of tablet 00:00: mouth at [place] [address] bedtime. [facility] Branch rosuvastati Yes [id number] 10mg Take 1 [facility] n 10 mg 7-06 tablet by ity of tablet 00:00: mouth at [place] [address] bedtime. [facility] Branch rosuvastati Yes [id number] 10mg Take 1 [facility] n 10 mg 7-06 tablet by ity of tablet 00:00: mouth at [place] [address] bedtime. [facility] rosuvastati Yes [id number] 10mg Take 1 [facility] n 10 mg 7-06 tablet by ity of tablet 00:00: mouth at [place] [address] bedtime. [facility] rosuvastati Yes [id number] 10mg Take 1 [facility] n 10 mg 7-06 tablet by ity of tablet 00:00: mouth at [place] [address] bedtime. [facility] rosuvastati Yes [id number] 10mg Take 1 [facility] n 10 mg 7-06 tablet by ity of tablet 00:00: mouth at [place] [address] bedtime. [facility] Branch rosuvastati Yes [id number] 10mg Take 1 [facility] n 10 mg 7-06 tablet by ity of tablet 00:00: mouth at [place] [address] bedtime. [facility] Branch rosuvastati Yes [id number] 10mg Take 1 [facility] n 10 mg 7-06 tablet by ity of tablet 00:00: mouth at [place] [address] bedtime. [facility] Branch rosuvastati Yes [id number] 10mg Take 1 [facility] n 10 mg 7-06 tablet by ity of tablet 00:00: mouth at [place] [address] bedtime. [facility] rosuvastati Yes [id number] 10mg Take 1 [facility] n 10 mg 7-06 tablet by ity of tablet 00:00: mouth at [place] [address] bedtime. [facility] Branch rosuvastati Yes [id number] 10mg Take 1 [facility] n 10 mg 7-06 tablet by ity of tablet 00:00: mouth at [place] [address] bedtime. [facility] rosuvastati Yes [id number] 10mg Take 1 [facility] n 10 mg 7-06 tablet by ity of tablet 00:00: mouth at [place] [address] bedtime. [facility] rosuvastati Yes [id number] 10mg Take 1 [facility] n 10 mg 7-06 tablet by ity of tablet 00:00: mouth at [place] [address] bedtime. [facility] rosuvastati Yes [id number] 10mg Take 1 [facility] n 10 mg 7-06 tablet by ity of tablet 00:00: mouth at [place] [address] bedtime. [facility] rosuvastati Yes [id number] 10mg Take 1 [facility] n 10 mg 7-06 tablet by ity of tablet 00:00: mouth at [place] [address] bedtime. [facility] rosuvastati Yes [id number] 10mg Take 1 [facility] n 10 mg 7-06 tablet by ity of tablet 00:00: mouth at [place] [address] bedtime. [facility] rosuvastati Yes [id number] 10mg Take 1 [facility] n 10 mg 7-06 tablet by ity of tablet 00:00: mouth at [place] [address] bedtime. [facility] rosuvastati 2021- Yes [id number] 10mg Take 1 [facility] n 10 mg 7-06 tablet by ity of tablet 00:00: mouth at [place] 00 bedtime. [facility] rosuvastati Yes [id number] 10mg Take 1 [facility] n 10 mg 7-06 tablet by ity of tablet 00:00: mouth at [place] bedtime. [facility] rosuvastati Yes [id number] 10mg Take 1 [facility] n 10 mg 7-06 tablet by ity of tablet 00:00: mouth at [place] bedtime. [facility] Branch rosuvastati Yes [id number] 10mg Take 1 [facility] n 10 mg 7-06 tablet by ity of tablet 00:00: mouth at [place] bedtime. [facility] rosuvastati Yes [id number] 10mg Take 1 [facility] n 10 mg 7-06 tablet by ity of tablet 00:00: mouth at [place] bedtime. [facility] rosuvastati Yes [id number] 10mg Take 1 [facility] n 10 mg 7-06 tablet by ity of tablet 00:00: mouth at [place] bedtime. [facility] rosuvastati Yes [id number] 10mg Take 1 [facility] n 10 mg 7-06 tablet by ity of tablet 00:00: mouth at [place] bedtime. [facility] rosuvastati Yes [id number] 10mg Take 1 [facility] n 10 mg 7-06 tablet by ity of tablet 00:00: mouth at [place] bedtime. [facility] rosuvastati Yes [id number] 10mg Take 1 [facility] n 10 mg 7-06 tablet by ity of tablet 00:00: mouth at [place] [address] bedtime. [facility] rosuvastati 2021- Yes [id number] 10mg Take 1 [facility] n 10 mg 7-06 tablet by ity of tablet 00:00: mouth at [place] bedtime. [facility] rosuvastati 2021- Yes [id number] 10mg Take 1 [facility] n 10 mg 7-06 tablet by ity of tablet 00:00: mouth at [place] [address] bedtime. [facility] rosuvastati Yes [id number] 10mg Take 1 [facility] n 10 mg 7-06 tablet by ity of tablet 00:00: mouth at [place] 00 bedtime. [facility] rosuvastati 2021- Yes [id number] 10mg Take 1 [facility] n 10 mg 7-06 tablet by ity of tablet 00:00: mouth at [place] 00 bedtime. [facility] Branch rosuvastati Yes [id number] 10mg Take 1 [facility] n 10 mg 7-06 tablet by ity of tablet 00:00: mouth at [place] bedtime. Medical Branch rosuvastati Yes [id number] 10mg Take 1 [facility] n 10 mg 7-06 tablet by ity of tablet 00:00: mouth at [place] bedtime. Medical Branch rosuvastati Yes [id number] 10mg Take 1 [facility] n 10 mg 7-06 tablet by ity of tablet 00:00: mouth at [place] bedtime. Medical Branch rosuvastati Yes [id number] 10mg Take 1 [facility] n 10 mg 7-06 tablet by ity of tablet 00:00: mouth at [place] bedtime. Medical Branch rosuvastati Yes [id number] 10mg Take 1 [facility] n 10 mg 7-06 tablet by ity of tablet 00:00: mouth at [place] bedtime. Medical Branch rosuvastati Yes [id number] 10mg Take 1 [facility] n 10 mg 7-06 tablet by ity of tablet 00:00: mouth at [place] bedtime. Medical Branch rosuvastati Yes [id number] 10mg Take 1 [facility] n 10 mg 7-06 tablet by ity of tablet 00:00: mouth at [place] [address] bedtime. [facility] Branch rosuvastati Yes [id number] 10mg Take 1 [facility] n 10 mg 7-06 tablet by ity of tablet 00:00: mouth at [place] [address] bedtime. Medical Branch rosuvastati Yes [id number] 10mg Take 1 [facility] n 10 mg 7-06 tablet by ity of tablet 00:00: mouth at [place] bedtime. Medical Branch rosuvastati Yes [id number] 10mg Take 1 [facility] n 10 mg 7-06 tablet by ity of tablet 00:00: mouth at [place] bedtime. Medical Branch rosuvastati Yes [id number] 10mg Take 1 [facility] n 10 mg 7-06 tablet by ity of tablet 00:00: mouth at [place] [address] bedtime. [facility] Branch rosuvastati Yes [id number] 10mg Take 1 [facility] n 10 mg 7-06 tablet by ity of tablet 00:00: mouth at [place] [address] bedtime. Medical Branch rosuvastati Yes [id number] 10mg Take 1 [facility] n 10 mg 7-06 tablet by ity of tablet 00:00: mouth at [place] 00 bedtime. Medical Branch rosuvastati Yes [id number] 10mg Take 1 [facility] n 10 mg 7-06 tablet by ity of tablet 00:00: mouth at [place] [address] bedtime. Medical Branch rosuvastati Yes [id number] 10mg Take 1 [facility] n 10 mg 7-06 tablet by ity of tablet 00:00: mouth at [place] [address] bedtime. Medical Branch rosuvastati Yes [id number] 10mg Take 1 [facility] n 10 mg 7-06 tablet by ity of tablet 00:00: mouth at [place] [address] bedtime. Medical Branch rosuvastati 2022- No [id number] 10mg Take 1 [facility] n 10 mg 7-06 02-17 tablet by ity of tablet 00:00: 00:00 mouth at [place] 00 :00 bedtime. Medical Branch rosuvastati 2022- No [id number] 10mg Take 1 [facility] n 10 mg 7-06 02-17 tablet by ity of tablet 00:00: 00:00 mouth at [place] 00 :00 bedtime. Medical Branch mupirocin 2 Yes Apply to Un marcie % ointment 6-30 area(s) 3 ity of 00:00: (three) [place] 00 times Medical daily. Branch mupirocin 2 Yes Apply to Un marcie % ointment 6-30 area(s) 3 ity of 00:00: (three) [place] 00 times Medical daily. Branch mupirocin 2 0 Yes Apply to Un marcie % ointment 6-30 area(s) 3 ity of 00:00: (three) [place] 00 times Medical daily. Branch mupirocin 2 0 Yes Apply to Un marcie % ointment 6-30 area(s) 3 ity of 00:00: (three) [place] 00 times Medical daily. Branch mupirocin 2 2021- No Apply to U nivers % ointment 08-07 07-20 area(s) 3 ity of 00:00: 00:00 (three) [place] 00 :00 times Medical daily. Branch PROCTO-MED 0 Yes APPLY TO Uni [...] HOURS Branch NEEDED FOR PAIN HYDROcodone 2021-0 2021- No TAKE 1 Uni vers -acetaminop 4-25 [...] Medical tablet for Branch Constipati on. chlorhexidi 2021-0 Yes [id number] 15mL [place] and [facility] ne 0.12 % 3-23 spit out ity of mouthwash 00:00: 15 mL 2 [place] 00 (two) Medical times Branch daily. chlorhexidi 2021-0 Yes [id number] 15mL Swish and Univers ne 0.12 % 3-23 spit out ity of mouthwash 00:00: 15 mL 2 [place] 00 (two) Medical times Branch daily. chlorhexidi 2021-0 Yes [id number] 15mL [place]ish and [facility] ne 0.12 % 3-23 spit out ity of mouthwash 00:00: 15 mL 2 [place] 00 (two) Medical times Branch daily. chlorhexidi 2021-0 Yes [id number] 15mL [place]ish and Univers ne 0.12 % 3-23 spit out ity of mouthwash 00:00: 15 mL 2 [place] 00 (two) Medical times Branch daily. chlorhexidi 2021- No [id number] 15mL Swish and [facility] ne 0.12 % [...] [place] capsule 44 daily. Medical Branch docusate 2021-0 Yes 100mg Take 100 Univ ers (COLACE) 1-25 mg by ity of 100 mg 14:07: mouth [place] capsule 44 daily. Medical Branch docusate 0 Yes 100mg Take 100 Univ ers (COLACE) 1-25 mg by ity of 100 mg 14:07: mouth [place] capsule 44 daily. Medical Branch docusate 2021-0 Yes 100mg Take 100 Univ ers (COLACE) [...] 44 daily. Medical Branch linaCLOtide 2020-02 Yes [id number] 145ug Take 1 Univers (LINZESS) 1-01 capsule [...] 2 (two) times daily. ezetimibe 2020-02 Yes [id number] 10mg Take 1 U nivers 10 mg 1-01 tablet by ity of tablet 00:00: mouth [place] 00 daily. Medical Branch metoprolol 2020-02 Yes [id number] 25mg Take 1 U nivers tartrate 25 1-01 tablet by ity of mg tablet 00:00: mouth 2 [place] 00 (two) Medical times Branch daily. omeprazole 2020-02 Yes [id number] 20mg Take 1 [facility] 20 mg 1-01 capsule by ity of capsule 00:00: mouth [place] 00 daily. Medical Branch fluconazole 2020-02 Yes [id number] 100mg Take 1 [facility] 100 mg 1-01 tablet by ity of tablet 00:00: mouth [place] 00 daily. Medical Branch linaCLOtide 2020-02 Yes [id number] 145ug Take 1 [facility] (LINZESS) 1-01 capsule [...] 2 (two) times daily. ezetimibe 2020-02 Yes [id number] 10mg Take 1 U nivers 10 mg 1-01 tablet by ity of tablet 00:00: mouth [place] 00 daily. Medical Branch metoprolol 2020-02 Yes [id number] 25mg Take 1 U nivers tartrate 25 1-01 tablet by ity of mg tablet 00:00: mouth 2 [place] 00 (two) Medical times Branch daily. omeprazole 2020-02 Yes [id number] 20mg Take 1 [facility] 20 mg 1-01 capsule by ity of capsule 00:00: mouth [place] 00 daily. Medical Branch fluconazole 2020-02 Yes [id number] 100mg Take 1 [facility] 100 mg 1-01 tablet by ity of tablet 00:00: mouth [place] 00 daily. Medical Branch linaCLOtide 2020-02 Yes [id number] 145ug Take 1 Univers (LINZESS) 1-01 capsule [...] 2 (two) times daily. ezetimibe 2020-02 Yes [id number] 10mg Take 1 U nivers 10 mg 1-01 tablet by ity of tablet 00:00: mouth [place] 00 daily. Medical Branch metoprolol 2020-02 Yes [id number] 25mg Take 1 U nivers tartrate 25 1-01 tablet by ity of mg tablet 00:00: mouth 2 [place] 00 (two) Medical times Branch daily. omeprazole 2020-02 Yes [id number] 20mg Take 1 [facility] 20 mg 1-01 capsule by ity of capsule 00:00: mouth [place] 00 daily. Medical Branch fluconazole 2020-02 Yes [id number] 100mg Take 1 [facility] 100 mg 1-01 tablet by ity of tablet 00:00: mouth [place] 00 daily. Medical Branch linaCLOtide 2020-02 Yes [id number] 145ug Take 1 Univers (LINZESS) 1-01 capsule [...] 2 (two) times daily. ezetimibe 2020-02 Yes [id number] 10mg Take 1 U nivers 10 mg 1-01 tablet by ity of tablet 00:00: mouth [place] 00 daily. Medical Branch metoprolol 2020-02 Yes [id number] 25mg Take 1 U nivers tartrate 25 1-01 tablet by ity of mg tablet 00:00: mouth 2 [place] 00 (two) Medical times Branch daily. omeprazole 2020-02 Yes [id number] 20mg Take 1 [facility] 20 mg 1-01 capsule by ity of capsule 00:00: mouth [place] 00 daily. Medical Branch fluconazole 2020-02 Yes [id number] 100mg Take 1 [facility] 100 mg 1-01 tablet by ity of tablet 00:00: mouth [place] 00 daily. Medical Branch linaCLOtide 2020-02 Yes [id number] 145ug Take 1 [facility] (LINZESS) 1-01 capsule by ity of 145 mcg 00:00: mouth once [place] capsule 00 daily as Medical needed for Branch Constipati on. apixaban 5 2020-02 Yes 5mg Take 1 Unive rs mg tablet 1-01 tablet by ity o f 00:00: mouth (two) Medical times Branch daily. Indication s: take 1 tablet by mouth 2 (two) times daily. ezetimibe 2020-02 Yes [id number] 10mg Take 1 U nivers 10 mg 1-01 tablet by ity of tablet 00:00: mouth 00 daily. Medical Branch metoprolol 2020-02 Yes [id number] 25mg Take 1 U nivers tartrate 25 1-01 tablet by ity of mg tablet 00:00: mouth (two) Medical times Branch daily. linaCLOtide 2020-02 Yes [id number] 145ug Take 1 Univers (LINZESS) 1-01 capsule [...] 2 (two) times daily. ezetimibe 2020-02 Yes [id number] 10mg Take 1 U nivers 10 mg 1-01 tablet by ity of tablet 00:00: mouth [place] 00 daily. Medical Branch metoprolol 2020-02 Yes [id number] 25mg Take 1 U nivers tartrate 25 1-01 tablet by ity of mg tablet 00:00: mouth 2 (two) Medical times Branch daily. linaCLOtide 2020-02 Yes [id number] 145ug Take 1 Univers (LINZESS) 1-01 capsule [...] 2 (two) times daily. metoprolol 2020-02 Yes [id number] 25mg Take 1 U nivers tartrate 25 1-01 tablet by ity of mg tablet 00:00: mouth 2 (two) Medical times Branch daily. linaCLOtide 2020-02 Yes [id number] 145ug Take 1 Univers (LINZESS) 1-01 capsule [...] 2 (two) times daily. metoprolol 2020-02 Yes [id number] 25mg Take 1 U nivers tartrate 25 1-01 tablet by ity of mg tablet 00:00: mouth 2 (two) Medical times Branch daily. linaCLOtide 2020-02 Yes [id number] 145ug Take 1 Univers (LINZESS) 1-01 capsule [...] 2 (two) times daily. metoprolol 2020-02 Yes [id number] 25mg Take 1 U nivers tartrate 25 1-01 tablet by ity of mg tablet 00:00: mouth 2 [place] 00 (two) Medical times Branch daily. linaCLOtide 2020-02 Yes [id number] 145ug Take 1 Univers (LINZESS) 1-01 capsule [...] 2 (two) times daily. metoprolol 2020-02 Yes [id number] 25mg Take 1 U nivers tartrate 25 1-01 tablet by ity of mg tablet 00:00: mouth 2 (two) Medical times Branch daily. linaCLOtide 2020-02 Yes [id number] 145ug Take 1 Univers (LINZESS) 1-01 capsule [...] 2 (two) times daily. metoprolol 2020-02 Yes [id number] 25mg Take 1 U nivers tartrate 25 1-01 tablet by ity of mg tablet 00:00: mouth 2 [place] (two) Medical times Branch daily. linaCLOtide 2020-02 Yes [id number] 145ug Take 1 Univers (LINZESS) 1-01 capsule [...] 2 (two) times daily. metoprolol 2020-02 Yes [id number] 25mg Take 1 U nivers tartrate 25 1-01 tablet by ity of mg tablet 00:00: mouth 2 (two) Medical times Branch daily. linaCLOtide 2020-02 Yes [id number] 145ug Take 1 Univers (LINZESS) 1-01 capsule [...] 2 (two) times daily. metoprolol 2020-02 Yes [id number] 25mg Take 1 U nivers tartrate 25 1-01 tablet by ity of mg tablet 00:00: mouth 2 (two) Medical times Branch daily. linaCLOtide 2020-02 Yes [id number] 145ug Take 1 Univers (LINZESS) 1-01 capsule [...] 2 (two) times daily. metoprolol 2020-02 Yes [id number] 25mg Take 1 U nivers tartrate 25 1-01 tablet by ity of mg tablet 00:00: mouth 2 (two) Medical times Branch daily. linaCLOtide 2020-02 Yes [id number] 145ug Take 1 Univers (LINZESS) 1-01 capsule [...] 2 (two) times daily. metoprolol 2020-02 Yes [id number] 25mg Take 1 U nivers tartrate 25 1-01 tablet by ity of mg tablet 00:00: mouth 2 00 (two) Medical times Branch daily. linaCLOtide 2020-02 Yes [id number] 145ug Take 1 Univers (LINZESS) 1-01 capsule [...] 2 (two) times daily. metoprolol 2020-02 Yes [id number] 25mg Take 1 U nivers tartrate 25 1-01 tablet by ity of mg tablet 00:00: mouth 2 (two) Medical times Branch daily. linaCLOtide 2020-02 Yes [id number] 145ug Take 1 Univers (LINZESS) 1-01 capsule [...] 2 (two) times daily. metoprolol 2020-02 Yes [id number] 25mg Take 1 U nivers tartrate 25 1-01 tablet by ity of mg tablet 00:00: mouth 2 (two) Medical times Branch daily. linaCLOtide 2020-02 Yes [id number] 145ug Take 1 [facility] (LINZESS) 1-01 capsule [...] 2 (two) times daily. metoprolol 2020-02 Yes [id number] 25mg Take 1 U nivers tartrate 25 1-01 tablet by ity of mg tablet 00:00: mouth 2 (two) Medical times Branch daily. linaCLOtide 2020-02 Yes [id number] 145ug Take 1 [facility] (LINZESS) 1-01 capsule [...] 2 (two) times daily. metoprolol 2020-02 Yes [id number] 25mg Take 1 U nivers tartrate 25 1-01 tablet by ity of mg tablet 00:00: mouth 2 (two) Medical times Branch daily. linaCLOtide 2020-02 Yes [id number] 145ug Take 1 Univers (LINZESS) 1-01 capsule [...] 2 (two) times daily. metoprolol 2020-02 Yes [id number] 25mg Take 1 U nivers tartrate 25 1-01 tablet by ity of mg tablet 00:00: mouth 2 (two) Medical times Branch daily. linaCLOtide 2020-02 Yes [id number] 145ug Take 1 Univers (LINZESS) 1-01 capsule [...] 2 (two) times daily. metoprolol 2020-02 Yes [id number] 25mg Take 1 U nivers tartrate 25 1-01 tablet by ity of mg tablet 00:00: mouth 2 (two) Medical times Branch daily. linaCLOtide 2020-02 Yes [id number] 145ug Take 1 Univers (LINZESS) 1-01 capsule [...] 2 (two) times daily. linaCLOtide 2020-02 Yes [id number] 145ug Take 1 [facility] (LINZESS) 1-01 capsule by ity of 145 mcg 00:00: mouth once [place] capsule 00 daily as Medical needed for Branch Constipati on. apixaban 5 2020-02 Yes 5mg Take 1 Unive rs mg tablet 1-01 tablet by ity o f 00:00: mouth 2 [place] (two) Medical times Branch daily. Indication s: take 1 tablet by mouth 2 (two) times daily. linaCLOtide 2020-02 Yes [id number] 145ug Take 1 [facility] (LINZESS) 1-01 capsule by ity of 145 mcg 00:00: mouth once [place] capsule 00 daily as Medical needed for Branch Constipati on. apixaban 5 2020-02 Yes 5mg Take 1 Unive rs mg tablet 1-01 tablet by ity o f 00:00: mouth 2 [place] (two) Medical times Branch daily. Indication s: take 1 tablet by mouth 2 (two) times daily. linaCLOtide 2020-02 Yes [id number] 145ug Take 1 Univers (LINZESS) 1-01 capsule by ity of 145 mcg 00:00: mouth once [place] capsule 00 daily as Medical needed for Branch Constipati on. linaCLOtide 2020-02 Yes [id number] 145ug Take 1 Univers (LINZESS) 1-01 capsule by ity of 145 mcg 00:00: mouth once [place] capsule 00 daily as Medical needed for Branch Constipati on. linaCLOtide 2020-02 Yes [id number] 145ug Take 1 Univers (LINZESS) 1-01 capsule by ity of 145 mcg 00:00: mouth once [place] capsule 00 daily as Medical needed for Branch Constipati on. linaCLOtide 2020-02 Yes [id number] 145ug Take 1 [facility] (LINZESS) 1-01 capsule by ity of 145 mcg 00:00: mouth once [place] capsule 00 daily as Medical needed for Branch Constipati on. linaCLOtide 2020-02 Yes [id number] 145ug Take 1 [facility] (LINZESS) 1-01 capsule by ity of 145 mcg 00:00: mouth once [place] capsule 00 daily as Medical needed for Branch Constipati on. linaCLOtide 2020-02 Yes [id number] 145ug Take 1 [facility] (LINZESS) 1-01 capsule by ity of 145 mcg 00:00: mouth once [place] capsule 00 daily as Medical needed for Branch Constipati on. linaCLOtide 2020-02 Yes [id number] 145ug Take 1 [facility] (LINZESS) 1-01 capsule by ity of 145 mcg 00:00: mouth once [place] capsule 00 daily as Medical needed for Branch Constipati on. linaCLOtide 2020-02 Yes [id number] 145ug Take 1 [facility] (LINZESS) 1-01 capsule by ity of 145 mcg 00:00: mouth once [place] capsule 00 daily as Medical needed for Branch Constipati on. linaCLOtide 2020-02 Yes [id number] 145ug Take 1 [facility] (LINZESS) 1-01 capsule by ity of 145 mcg 00:00: mouth once [place] capsule 00 daily as Medical needed for Branch Constipati on. linaCLOtide 2020-02 Yes [id number] 145ug Take 1 [facility] (LINZESS) 1-01 capsule by ity of 145 mcg 00:00: mouth once [place] capsule 00 daily as Medical needed for Branch Constipati on. linaCLOtide 2020-02 Yes [id number] 145ug Take 1 [facility] (LINZESS) 1-01 capsule by ity of 145 mcg 00:00: mouth once [place] capsule 00 daily as Medical needed for Branch Constipati on. linaCLOtide 2020-02 Yes [id number] 145ug Take 1 [facility] (LINZESS) 1-01 capsule by ity of 145 mcg 00:00: mouth once [place] capsule 00 daily as Medical needed for Branch Constipati on. linaCLOtide 2020-02 Yes [id number] 145ug Take 1 [facility] (LINZESS) 1-01 capsule by ity of 145 mcg 00:00: mouth once [place] capsule 00 daily as Medical needed for Branch Constipati on. linaCLOtide 2020-02 Yes [id number] 145ug Take 1 [facility] (LINZESS) 1-01 capsule by ity of 145 mcg 00:00: mouth once [place] capsule 00 daily as Medical needed for Branch Constipati on. linaCLOtide 2020-02 Yes [id number] 145ug Take 1 [facility] (LINZESS) 1-01 capsule by ity of 145 mcg 00:00: mouth once [place] capsule 00 daily as Medical needed for Branch Constipati on. linaCLOtide 2020-02 Yes [id number] 145ug Take 1 [facility] (LINZESS) 1-01 capsule by ity of 145 mcg 00:00: mouth once [place] capsule 00 daily as Medical needed for Branch Constipati on. linaCLOtide 2020-02 Yes [id number] 145ug Take 1 [facility] (LINZESS) 1-01 capsule by ity of 145 mcg 00:00: mouth once [place] capsule 00 daily as Medical needed for Branch Constipati on. linaCLOtide 2020-02 Yes [id number] 145ug Take 1 [facility] (LINZESS) 1-01 capsule by ity of 145 mcg 00:00: mouth once [place] capsule 00 daily as Medical needed for Branch Constipati on. linaCLOtide 2020-02 Yes [id number] 145ug Take 1 [facility] (LINZESS) 1-01 capsule by ity of 145 mcg 00:00: mouth once [place] capsule 00 daily as Medical needed for Branch Constipati on. linaCLOtide 2020-02 Yes [id number] 145ug Take 1 [facility] (LINZESS) 1-01 capsule by ity of 145 mcg 00:00: mouth once [place] capsule 00 daily as Medical needed for Branch Constipati on. linaCLOtide 2020-02 Yes [id number] 145ug Take 1 [facility] (LINZESS) 1-01 capsule by ity of 145 mcg 00:00: mouth once [place] capsule 00 daily as Medical needed for Branch Constipati on. linaCLOtide 2020-02 Yes [id number] 145ug Take 1 Univers (LINZESS) 1-01 capsule by ity of 145 mcg 00:00: mouth once [place] capsule 00 daily as Medical needed for Branch Constipati on. linaCLOtide 2020-02 Yes [id number] 145ug Take 1 [facility] (LINZESS) 1-01 capsule by ity of 145 mcg 00:00: mouth once [place] capsule 00 daily as Medical needed for Branch Constipati on. linaCLOtide 2020-02 Yes [id number] 145ug Take 1 [facility] (LINZESS) 1-01 capsule by ity of 145 mcg 00:00: mouth once [place] capsule 00 daily as Medical needed for Branch Constipati on. linaCLOtide 2020-02 Yes [id number] 145ug Take 1 [facility] (LINZESS) 1-01 capsule by ity of 145 mcg 00:00: mouth once [place] capsule 00 daily as Medical needed for Branch Constipati on. linaCLOtide 2020-02 Yes [id number] 145ug Take 1 [facility] (LINZESS) 1-01 capsule by ity of 145 mcg 00:00: mouth once [place] capsule 00 daily as Medical needed for Branch Constipati on. linaCLOtide 2020-02 Yes [id number] 145ug Take 1 [facility] (LINZESS) 1-01 capsule by ity of 145 mcg 00:00: mouth once [place] capsule 00 daily as Medical needed for Branch Constipati on. linaCLOtide 2020-02 Yes [id number] 145ug Take 1 [facility] (LINZESS) 1-01 capsule by ity of 145 mcg 00:00: mouth once [place] capsule 00 daily as Medical needed for Branch Constipati on. linaCLOtide 2020-02 Yes [id number] 145ug Take 1 [facility] (LINZESS) 1-01 capsule by ity of 145 mcg 00:00: mouth once [place] capsule 00 daily as Medical needed for Branch Constipati on. linaCLOtide 2020-02 Yes [id number] 145ug Take 1 [facility] (LINZESS) 1-01 capsule by ity of 145 mcg 00:00: mouth once [place] capsule 00 daily as Medical needed for Branch Constipati on. linaCLOtide 2020-02 Yes [id number] 145ug Take 1 [facility] (LINZESS) 1-01 capsule by ity of 145 mcg 00:00: mouth once [place] capsule 00 daily as Medical needed for Branch Constipati on. linaCLOtide 2020-02 Yes [id number] 145ug Take 1 [facility] (LINZESS) 1-01 capsule by ity of 145 mcg 00:00: mouth once [place] capsule 00 daily as Medical needed for Branch Constipati on. linaCLOtide 2020-02 Yes [id number] 145ug Take 1 [facility] (LINZESS) 1-01 capsule by ity of 145 mcg 00:00: mouth once [place] capsule 00 daily as Medical needed for Branch Constipati on. linaCLOtide 2020-02 Yes [id number] 145ug Take 1 [facility] (LINZESS) 1-01 capsule by ity of 145 mcg 00:00: mouth once [place] capsule 00 daily as Medical needed for Branch Constipati on. linaCLOtide 2020-02 Yes [id number] 145ug Take 1 [facility] (LINZESS) 1-01 capsule by ity of 145 mcg 00:00: mouth once [place] capsule 00 daily as Medical needed for Branch Constipati on. linaCLOtide 2020-02 Yes [id number] 145ug Take 1 [facility] (LINZESS) 1-01 capsule by ity of 145 mcg 00:00: mouth once [place] capsule 00 daily as Medical needed for Branch Constipati on. linaCLOtide 2020-02 Yes [id number] 145ug Take 1 [facility] (LINZESS) 1-01 capsule by ity of 145 mcg 00:00: mouth once [place] capsule 00 daily as Medical needed for Branch Constipati on. linaCLOtide 2020-02 Yes [id number] 145ug Take 1 [facility] (LINZESS) 1-01 capsule by ity of 145 mcg 00:00: mouth once [place] capsule 00 daily as Medical needed for Branch Constipati on. linaCLOtide 2020-02 Yes [id number] 145ug Take 1 [facility] (LINZESS) 1-01 capsule by ity of 145 mcg 00:00: mouth once [place] capsule 00 daily as Medical needed for Branch Constipati on. linaCLOtide 2020-02 Yes [id number] 145ug Take 1 [facility] (LINZESS) 1-01 capsule by ity of 145 mcg 00:00: mouth once [place] capsule 00 daily as Medical needed for Branch Constipati on. linaCLOtide 2020-02 Yes [id number] 145ug Take 1 [facility] (LINZESS) 1-01 capsule by ity of 145 mcg 00:00: mouth once [place] capsule 00 daily as Medical needed for Branch Constipati on. linaCLOtide 2020-02 Yes [id number] 145ug Take 1 [facility] (LINZESS) 1-01 capsule by ity of 145 mcg 00:00: mouth [place] daily as Medical needed for Branch Constipati on. linaCLOtide 2020-02 Yes [id number] 145ug Take 1 [facility] (LINZESS) 1-01 capsule by [facility] [place] 145 mcg 00:00: mouth [place] 00 daily as Medical needed for Branch Constipati on. linaCLOtide 2020-02 Yes [id number] 145ug Take 1 [facility] (LINZESS) 1-01 capsule by [place] of 145 mcg 00:00: mouth [place] 00 daily as Medical needed for Branch Constipati on. linaCLOtide 2020-02 Yes [id number] 145ug Take 1 [facility] (LINZESS) 1-01 capsule by [place] of 145 mcg 00:00: mouth [place] 00 daily as Medical needed for Branch Constipati on. linaCLOtide 2020-02 Yes [id number] 145ug Take 1 [facility] (LINZESS) 1-01 capsule by [place] of 145 mcg 00:00: mouth [place] 00 daily as Medical needed for Branch Constipati on. linaCLOtide 2020-02 Yes [id number] 145ug Take 1 [facility] (LINZESS) 1-01 capsule by [place] of 145 mcg 00:00: mouth [place] 00 daily as Medical needed for Branch Constipati on. linaCLOtide 2020-02 Yes [id number] 145ug Take 1 [facility] (LINZESS) 1-01 capsule by [place] of 145 mcg 00:00: mouth [place] 00 daily as Medical needed for Branch Constipati on. linaCLOtide 2020-02 Yes [id number] 145ug Take 1 [facility] (LINZESS) 1-01 capsule by [place] of 145 mcg 00:00: mouth [place] 00 daily as Medical needed for Branch Constipati on. linaCLOtide 2020-02 Yes [id number] 145ug Take 1 [facility] (LINZESS) 1-01 capsule by [place] of 145 mcg 00:00: mouth [place] 00 daily as Medical needed for Branch Constipati on. linaCLOtide 2020-02 Yes [id number] 145ug Take 1 [facility] (LINZESS) 1-01 capsule by [place] of 145 mcg 00:00: mouth [place] 00 daily as Medical needed for Branch Constipati on. linaCLOtide 2020-02 Yes [id number] 145ug Take 1 [facility] (LINZESS) 1-01 capsule by [place] of 145 mcg 00:00: mouth [place] 00 daily as Medical needed for Branch Constipati on. linaCLOtide 2020-02 Yes [id number] 145ug Take 1 [facility] (LINZESS) 1-01 capsule by [place] of 145 mcg 00:00: mouth [place] 00 daily as Medical needed for Branch Constipati on. linaCLOtide 2020-02 Yes [id number] 145ug Take 1 [facility] (LINZESS) 1-01 capsule by [place] of 145 mcg 00:00: mouth [place] 00 daily as Medical needed for Branch Constipati on. linaCLOtide 2020-02 Yes [id number] 145ug Take 1 [facility] (LINZESS) 1-01 capsule by [place] of 145 mcg 00:00: mouth [place] 00 daily as Medical needed for Branch Constipati on. linaCLOtide 2020-02 Yes [id number] 145ug Take 1 [facility] (LINZESS) 1-01 capsule by [place] of 145 mcg 00:00: mouth [place] 00 daily as Medical needed for Branch Constipati on. linaCLOtide 2020-02 Yes [id number] 145ug Take 1 [facility] (LINZESS) 1-01 capsule by [facility] of 145 mcg 00:00: mouth [place] capsule 00 daily as Medical needed for Branch Constipati on. linaCLOtide 2020-02 Yes [id number] 145ug Take 1 [facility] (LINZESS) 1-01 capsule by [place] of 145 mcg 00:00: mouth [place] capsule 00 daily as Medical needed for Branch Constipati on. linaCLOtide 2020-02 Yes [id number] 145ug Take 1 [facility] (LINZESS) 1-01 capsule by [facility] of 145 mcg 00:00: mouth [place] 00 daily as Medical needed for Branch Constipati on. linaCLOtide 2020-02 Yes [id number] 145ug Take 1 [facility] (LINZESS) 1-01 capsule by [place] of 145 mcg 00:00: mouth once [place] capsule 00 daily as Medical needed for Branch Constipati on. linaCLOtide 2020-02 Yes [id number] 145ug Take 1 [facility] (LINZESS) 1-01 capsule by [place] of 145 mcg 00:00: mouth [place] 00 daily as Medical needed for Branch Constipati on. apixaban 5 2020-02- No 5mg Take 1 [facility] ers mg tablet 02-08 12-16 tablet by ity of 00:00: 00:00 mouth 2 [place] 00 :00 (two) Medical times Branch daily. Indication s: take 1 tablet by mouth 2 (two) times daily. metoprolol 2020-02- No [id number] 25mg Take 1 [facility] tartrate 25 02-08 tablet by it y of mg tablet 00:00: 00:00 mouth [place] :[place] (two) Medical times Branch daily. ezetimibe 2020-02- No [id number] 10mg Take 1 [facility] 10 mg 02-08 tablet by ity of tablet 00:00: 00:00 mouth [place] 00 :00 daily. Medical Branch omeprazole 2020-02- No [id number] 20mg Take 1 [facility] 20 mg 02-08 capsule by ity of capsule 00:00: 00:00 mouth [place] 00 :00 daily. Medical Branch fluconazole 2020-02- No [id number] 100mg Take 1 [facility] 100 mg 02-08 tablet by ity of tablet 00:00: 00:00 mouth [place] 00 :00 daily. Medical Branch Arm Brace Yes [id number] PRODUCT: [facility] Misc 8-30 MYOPRO ity of 00:00: BRACE; [place] 00 Sig: Use Medical as Branch directed; ICD-10 codes: Z86.73, G81.94 Arm Brace Yes [id number] PRODUCT: [facility] Misc 8-30 MYOPRO ity of 00:00: BRACE; [place] 00 Sig: Use Medical as Branch directed; ICD-10 codes: Z86.73, G81.94 Arm Brace Yes [id number] PRODUCT: [facility] Misc 8-30 MYOPRO ity of 00:00: BRACE; [place] 00 Sig: Use Medical as Branch directed; ICD-10 codes: Z86.73, G81.94 Arm Brace Yes [id number] PRODUCT: [facility] Misc 8-30 MYOPRO ity of 00:00: BRACE; [place] 00 Sig: Use Medical as Branch directed; ICD-10 codes: Z86.73, G81.94 Arm Brace Yes [id number] PRODUCT: [facility] Misc 8-30 MYOPRO ity of 00:00: BRACE; [place] 00 Sig: Use Medical as Branch directed; ICD-10 codes: Z86.73, G81.94 Arm Brace Yes [id number] PRODUCT: [facility] Misc 8-30 MYOPRO ity of 00:00: BRACE; [place] 00 Sig: Use Medical as Branch directed; ICD-10 codes: Z86.73, G81.94 Arm Brace 202-0 Yes [id number] PRODUCT: [facility] Misc 8-30 MYOPRO ity of 00:00: BRACE; [place] 00 Sig: Use Medical as Branch directed; ICD-10 codes: Z86.73, G81.94 Arm Brace 202-0 Yes [id number] PRODUCT: [facility] Misc 8-30 MYOPRO ity of 00:00: BRACE; [place] 00 Sig: Use Medical as Branch directed; ICD-10 codes: Z86.73, G81.94 Arm Brace 2020-0 Yes [id number] PRODUCT: [facility] Misc 8-30 MYOPRO ity of 00:00: BRACE; [place] 00 Sig: Use Medical as Branch directed; ICD-10 codes: Z86.73, G81.94 Arm Brace 2020-0 Yes [id number] PRODUCT: [facility] Misc 8-30 MYOPRO ity of 00:00: BRACE; [place] 00 Sig: Use Medical as Branch directed; ICD-10 codes: Z86.73, G81.94 Arm Brace 2020-0 Yes [id number] PRODUCT: [facility] Misc 8-30 MYOPRO ity of 00:00: BRACE; [place] 00 Sig: Use Medical as Branch directed; ICD-10 codes: Z86.73, G81.94 Arm Brace 2020-0 Yes [id number] PRODUCT: [facility] Misc 8-30 MYOPRO ity of 00:00: BRACE; [place] 00 Sig: Use Medical as Branch directed; ICD-10 codes: Z86.73, G81.94 Arm Brace 2020-0 Yes [id number] PRODUCT: [facility] Misc 8-30 MYOPRO ity of 00:00: BRACE; [place] 00 Sig: Use Medical as Branch directed; ICD-10 codes: Z86.73, G81.94 Arm Brace 2020-0 Yes [id number] PRODUCT: [facility] Misc 8-30 MYOPRO ity of 00:00: BRACE; [place] 00 Sig: Use Medical as Branch directed; ICD-10 codes: Z86.73, G81.94 Arm Brace 202-0 Yes [id number] PRODUCT: [facility] Misc 8-30 MYOPRO ity of 00:00: BRACE; [place] 00 Sig: Use Medical as Branch directed; ICD-10 codes: Z86.73, G81.94 Arm Brace 2021-0 Yes [id number] PRODUCT: [facility] Misc 8-30 MYOPRO ity of 00:00: BRACE; [place] 00 Sig: Use Medical as Branch directed; ICD-10 codes: Z86.73, G81.94 Arm Brace 202-0 Yes [id number] [facility] of 00:00: BRACE; [place] 00 Sig: Use Medical as Branch directed; ICD-10 codes: Z86.73, G81.94 Arm Brace 2020-0 Yes [id number] [facility] MY[facility]RO ity of 00:00: BRACE; [place] 00 Sig: Use Medical as Branch directed; ICD-10 codes: Z86.73, G81.94 Arm Brace 2020-0 Yes [id number] [facility] MYOPRO ity of 00:00: BRACE; [place] 00 Sig: Use Medical as Branch directed; ICD-10 codes: Z86.73, G81.94 Arm Brace 2020-0 Yes [id number] PRODUCT: [facility] 8-30 MYOPRO ity of 00:00: BRACE; [place] 00 Sig: Use Medical as Branch directed; ICD-10 codes: Z86.73, G81.94 Arm Brace 2020-0 Yes [id number] [facility] MYOPRO ity of 00:00: BRACE; [place] 00 Sig: Use Medical as Branch directed; ICD-10 codes: Z86.73, G81.94 Arm Brace 202-0 Yes [id number] PRODUCT: [facility] Misc 8-30 MYOPRO ity of 00:00: BRACE; [place] 00 Sig: Use Medical as Branch directed; ICD-10 codes: Z86.73, G81.94 Arm Brace 2020-0 Yes [id number] PRODUCT: [facility] Misc 8-30 MYOPRO ity of 00:00: BRACE; [place] 00 Sig: Use Medical as Branch directed; ICD-10 codes: Z86.73, G81.94 Arm Brace 2021-0 Yes [id number] PRODUCT: [facility] 8-30 MYOPRO ity of 00:00: BRACE; [place] 00 Sig: Use Medical as Branch directed; ICD-10 codes: Z86.73, G81.94 Arm Brace 2020-0 Yes [id number] PRODUCT: [facility] 8-30 MYOPRO ity of 00:00: BRACE; [place] 00 Sig: Use Medical as Branch directed; ICD-10 codes: Z86.73, G81.94 Arm Brace 2020-0 Yes [id number] PRODUCT: [facility] 8-30 MYOPRO ity of 00:00: BRACE; [place] 00 Sig: Use Medical as Branch directed; ICD-10 codes: Z86.73, G81.94 Arm Brace 2020-0 Yes [id number] PRODUCT: [facility] 8-30 MYOPRO ity of 00:00: BRACE; [place] 00 Sig: Use Medical as Branch directed; ICD-10 codes: Z86.73, G81.94 Arm Brace 2020-0 Yes [id number] PRODUCT: [facility] 8-30 MYOPRO ity of 00:00: BRACE; [place] 00 Sig: Use Medical as Branch directed; ICD-10 codes: Z86.73, G81.94 Arm Brace 2020-0 Yes [id number] PRODUCT: [facility] 8-30 MYOPRO ity of 00:00: BRACE; [place] 00 Sig: Use Medical as Branch directed; ICD-10 codes: Z86.73, G81.94 Arm Brace 2020-0 Yes [id number] PRODUCT: [facility] 8-30 MYOPRO ity of 00:00: BRACE; [place] 00 Sig: Use Medical as Branch directed; ICD-10 codes: Z86.73, G81.94 Arm Brace 2020-0 Yes [id number] PRODUCT: [facility] 8-30 MYOPRO ity of 00:00: BRACE; [place] 00 Sig: Use Medical as Branch directed; ICD-10 codes: Z86.73, G81.94 Arm Brace 2020-0 Yes [id number] PRODUCT: [facility] 8-30 MYOPRO ity of 00:00: BRACE; [place] 00 Sig: Use Medical as Branch directed; ICD-10 codes: Z86.73, G81.94 Arm Brace 2020-0 Yes [id number] PRODUCT: [facility] 8-30 MYOPRO ity of 00:00: BRACE; [place] 00 Sig: Use Medical as Branch directed; ICD-10 codes: Z86.73, G81.94 Arm Brace 2020-0 Yes [id number] [facility]: [facility] MYOPRO ity of 00:00: BRACE; [place] 00 Sig: Use Medical as Branch directed; ICD-10 codes: Z86.73, G81.94 Arm Brace 2020-0 Yes [id number] [facility]: [facility] MYOPRO ity of 00:00: BRACE; [place] 00 Sig: Use Medical as Branch directed; ICD-10 codes: Z86.73, G81.94 Arm Brace 2020-0 Yes [id number] PRODUCT: [facility] 8-30 MYOPRO ity of 00:00: BRACE; [place] 00 Sig: Use Medical as Branch directed; ICD-10 codes: Z86.73, G81.94 Arm Brace 2020-0 Yes [id number] PRODUCT: [facility] 8-30 MYOPRO ity of 00:00: BRACE; [place] 00 Sig: Use Medical as Branch directed; ICD-10 codes: Z86.73, G81.94 Arm Brace 2020-0 Yes [id number] PRODUCT: [facility] 8-30 MYOPRO ity of 00:00: BRACE; [place] 00 Sig: Use Medical as Branch directed; ICD-10 codes: Z86.73, G81.94 Arm Brace 2020-0 Yes [id number] PRODUCT: [facility] 8-30 MYOPRO ity of 00:00: BRACE; [place] 00 Sig: Use Medical as Branch directed; ICD-10 codes: Z86.73, G81.94 Arm Brace 2020-0 Yes [id number] PRODUCT: [facility] 8-30 MYOPRO ity of 00:00: BRACE; [place] 00 Sig: Use Medical as Branch directed; ICD-10 codes: Z86.73, G81.94 Arm Brace 2020-0 Yes [id number] PRODUCT: [facility] Misc 8-30 MYOPRO ity of 00:00: BRACE; [place] 00 Sig: Use Medical as Branch directed; ICD-10 codes: Z86.73, G81.94 Arm Brace 2021-0 Yes [id number] PRODUCT: [facility] Misc 8-30 MYOPRO ity of 00:00: BRACE; [place] 00 Sig: Use Medical as Branch directed; ICD-10 codes: Z86.73, G81.94 Arm Brace 0 Yes [id number] PRODUCT: [facility] Misc 8-30 MYOPRO ity of 00:00: BRACE; [place] 00 Sig: Use Medical as Branch directed; ICD-10 codes: Z86.73, G81.94 Arm Brace 0 Yes [id number] PRODUCT: [facility] Misc 8-30 MYOPRO ity of 00:00: BRACE; [place] 00 Sig: Use Medical as Branch directed; ICD-10 codes: Z86.73, G81.94 Arm Brace 0 Yes [id number] [facility]: [facility] MYOPRO ity of 00:00: BRACE; [place] 00 Sig: Use Medical as Branch directed; ICD-10 codes: Z86.73, G81.94 Arm Brace 0 Yes [id number] PRODUCT: [facility] MYOPRO ity of 00:00: BRACE; [place] 00 Sig: Use Medical as Branch directed; ICD-10 codes: Z86.73, G81.94 Arm Brace 0 Yes [id number] PRODUCT: [facility] MYOPRO ity of 00:00: BRACE; [place] 00 Sig: Use Medical as Branch directed; ICD-10 codes: Z86.73, G81.94 Arm Brace 0 Yes [id number] PRODUCT: [facility] MYOPRO ity of 00:00: BRACE; [place] 00 Sig: Use Medical as Branch directed; ICD-10 codes: Z86.73, G81.94 Arm Brace 2020-0 Yes [id number] PRODUCT: [facility] Misc 8-30 MYOPRO ity of 00:00: BRACE; [place] 00 Sig: Use Medical as Branch directed; ICD-10 codes: Z86.73, G81.94 Arm Brace 0 Yes [id number] PRODUCT: [facility] Misc 8-30 MYOPRO ity of 00:00: BRACE; [place] 00 Sig: Use Medical as Branch directed; ICD-10 codes: Z86.73, G81.94 Arm Brace 2021-0 Yes [id number] PRODUCT: [facility] Mis 8-30 MYOPRO ity of 00:00: BRACE; [place] 00 Sig: Use Medical as Branch directed; ICD-10 codes: Z86.73, G81.94 Arm Brace 2020-0 Yes [id number] PRODUCT: [facility] MYOPRO ity of 00:00: BRACE; [place] 00 Sig: Use Medical as Branch directed; ICD-10 codes: Z86.73, G81.94 Arm Brace 2020-0 Yes [id number] PRODUCT: [facility] MYOPRO ity of 00:00: BRACE; [place] 00 Sig: Use Medical as Branch directed; ICD-10 codes: Z86.73, G81.94 Arm Brace 2020- Yes [id number] PRODUCT: [facility] MYOPRO ity of 00:00: BRACE; [place] 00 Sig: Use Medical as Branch directed; ICD-10 codes: Z86.73, G81.94 Arm Brace 0 Yes [id number] PRODUCT: [facility] 8-30 MYOPRO ity of 00:00: BRACE; [place] 00 Sig: Use Medical as Branch directed; ICD-10 codes: Z86.73, G81.94 Arm Brace 2020-0 Yes [id number] PRODUCT: [facility] 8-30 MYOPRO ity of 00:00: BRACE; [place] 00 Sig: Use Medical as Branch directed; ICD-10 codes: Z86.73, G81.94 Arm Brace 2020-0 Yes [id number] PRODUCT: [facility] MYOPRO ity of 00:00: BRACE; [place] 00 Sig: Use Medical as Branch directed; ICD-10 codes: Z86.73, G81.94 Arm Brace 2020-0 Yes [id number] PRODUCT: [facility] MYOPRO ity of 00:00: BRACE; [place] 00 Sig: Use Medical as Branch directed; ICD-10 codes: Z86.73, G81.94 Arm Brace 2020-0 Yes [id number] PRODUCT: [facility] Misc 8-30 MYOPRO ity of 00:00: BRACE; [place] 00 Sig: Use Medical as Branch directed; ICD-10 codes: Z86.73, G81.94 Arm Brace 2020-0 Yes [id number] PRODUCT: [facility] Misc 8-30 MYOPRO ity of 00:00: BRACE; [place] 00 Sig: Use Medical as Branch directed; ICD-10 codes: Z86.73, G81.94 Arm Brace 2020-0 Yes [id number] PRODUCT: [facility] Misc 8-30 MYOPRO ity of 00:00: BRACE; [place] 00 Sig: Use Medical as Branch directed; ICD-10 codes: Z86.73, G81.94 Arm Brace 2020-0 Yes [id number] [facility]: [facility] MYOPRO ity of 00:00: BRACE; [place] 00 Sig: Use Medical as Branch directed; ICD-10 codes: Z86.73, G81.94 Arm Brace 2020-0 Yes [id number] [facility] of 00:00: BRACE; [place] 00 Sig: Use Medical as Branch directed; ICD-10 codes: Z86.73, G81.94 Arm Brace 2020-0 Yes [id number] PR[facility]: [facility] MYOPRO ity of 00:00: BRACE; [place] 00 Sig: Use Medical as Branch directed; ICD-10 codes: Z86.73, G81.94 Arm Brace 2020-0 Yes [id number] PRODUCT: [facility] Misc 8-30 MYOPRO ity of 00:00: BRACE; [place] 00 Sig: Use Medical as Branch directed; ICD-10 codes: Z86.73, G81.94 Arm Brace 2020-0 Yes [id number] PRODUCT: [facility] MYOPRO ity of 00:00: BRACE; [place] 00 Sig: Use Medical as Branch directed; ICD-10 codes: Z86.73, G81.94 Arm Brace 2020-0 Yes [id number] PRODUCT: [facility] Misc 8-30 MYOPRO ity of 00:00: BRACE; [place] 00 Sig: Use Medical as Branch directed; ICD-10 codes: Z86.73, G81.94 Arm Brace 2020-0 Yes [id number] PRODUCT: [facility] Misc 8-30 MYOPRO ity of 00:00: BRACE; [place] 00 Sig: Use Medical as Branch directed; ICD-10 codes: Z86.73, G81.94 Arm Brace 2020-0 Yes [id number] PRODUCT: [facility] Misc 8-30 MYOPRO ity of 00:00: BRACE; [place] 00 Sig: Use Medical as Branch directed; ICD-10 codes: Z86.73, G81.94 Arm Brace 2020-0 Yes [id number] PRODUCT: [facility] Misc 8-30 MYOPRO ity of 00:00: BRACE; [place] 00 Sig: Use Medical as Branch directed; ICD-10 codes: Z86.73, G81.94 Arm Brace 2020-0 Yes [id number] PRODUCT: [facility] Misc 8-30 MYOPRO ity of 00:00: BRACE; [place] 00 Sig: Use Medical as Branch directed; ICD-10 codes: Z86.73, G81.94 Arm Brace 2020-0 Yes [id number] PRODUCT: [facility] Misc 8-30 MYOPRO ity of 00:00: BRACE; [place] 00 Sig: Use Medical as Branch directed; ICD-10 codes: Z86.73, G81.94 Arm Brace 2020-0 Yes [id number] PRODUCT: [facility] Misc 8-30 MYOPRO ity of 00:00: BRACE; [place] 00 Sig: Use Medical as Branch directed; ICD-10 codes: Z86.73, G81.94 Arm Brace 2020-0 Yes [id number] PRODUCT: [facility] Misc 8-30 MYOPRO ity of 00:00: BRACE; [place] 00 Sig: Use Medical as Branch directed; ICD-10 codes: Z86.73, G81.94 Arm Brace 2020-0 Yes [id number] PRODUCT: [facility] Misc 8-30 MYOPRO ity of 00:00: BRACE; [place] 00 Sig: Use Medical as Branch directed; ICD-10 codes: Z86.73, G81.94 Arm Brace 2020-0 Yes [id number] PRODUCT: [facility] Misc 8-30 MYOPRO ity of 00:00: BRACE; [place] 00 Sig: Use Medical as Branch directed; ICD-10 codes: Z86.73, G81.94 Arm Brace 2020-0 Yes [id number] PRODUCT: [facility] Misc 8-30 MYOPRO ity of 00:00: BRACE; [place] 00 Sig: Use Medical as Branch directed; ICD-10 codes: Z86.73, G81.94 Arm Brace Yes [id number] PRODUCT: [facility] Misc 8-30 MYOPRO ity of 00:00: BRACE; [place] 00 Sig: Use Medical as Branch directed; ICD-10 codes: Z86.73, G81.94 Arm Brace Yes [id number] PRODUCT: [facility] Misc 8-30 MYOPRO ity of 00:00: BRACE; [place] 00 Sig: Use Medical as Branch directed; ICD-10 codes: Z86.73, G81.94 Arm Brace Yes [id number] PRODUCT: [facility] Misc 8-30 MYOPRO ity of 00:00: BRACE; [place] 00 Sig: Use Medical as Branch directed; ICD-10 codes: Z86.73, G81.94 Arm Brace Yes [id number] PRODUCT: [facility] Misc 8-30 MYOPRO ity of 00:00: BRACE; [place] 00 Sig: Use Medical as Branch directed; ICD-10 codes: Z86.73, G81.94 Arm Brace Yes [id number] PRODUCT: [facility] Misc 8-30 MYOPRO ity of 00:00: BRACE; [place] 00 Sig: Use Medical as Branch directed; ICD-10 codes: Z86.73, G81.94 Arm Brace Yes [id number] PRODUCT: [facility] Misc 8-30 MYOPRO ity of 00:00: BRACE; [place] 00 Sig: Use Medical as Branch directed; ICD-10 codes: Z86.73, G81.94 Arm Brace Yes [id number] PRODUCT: [facility] Misc 8-30 MYOPRO ity of 00:00: BRACE; [place] 00 Sig: Use Medical as Branch directed; ICD-10 codes: Z86.73, G81.94 Arm Brace Yes [id number] PRODUCT: [facility] Misc 8-30 MYOPRO ity of 00:00: BRACE; [place] 00 Sig: Use Medical as Branch directed; ICD-10 codes: Z86.73, G81.94 KCL 10 mEq Yes 10meq Take 10 [facility] vers tablet 8-06 mEq by ity of 15:56: mouth 2 [place] 37 (two) Medical times Branch daily. zinc 2021-0 Yes Take by [facility] sulfate 8-06 mouth ity of (ZINC-220 15:56: daily. [place] ORAL) 37 Medical Branch KCL 10 mEq 2020-0 Yes 10meq Take 10 [facility] vers tablet 8-06 mEq by ity of 15:56: mouth 2 [place] [address] (two) Medical times Branch daily. zinc 2020-0 Yes Take by [facility] sulfate 8-06 mouth ity of (ZINC-220 15:56: daily. [place] ORAL) 37 Medical Branch KCL 10 mEq 2020-0 Yes 10meq Take 10 [facility] vers tablet 8-06 mEq by ity of 15:56: mouth 2 [place] [address] (two) Medical times Branch daily. zinc 2020-0 Yes Take by [facility] sulfate 8-06 mouth ity of (ZINC-220 15:56: daily. [place] ORAL) 37 Medical Branch KCL 10 mEq 2020-0 Yes 10meq Take 10 [facility] vers tablet 8-06 mEq by ity of 15:56: mouth 2 [place] [address] (two) Medical times Branch daily. zinc 2020-0 [...] (six) Medical hours as Branch needed. gluc 202-0 Yes Take by [facility] hernandez/chondro 8-06 mouth ity of hernandez A/vit 15:56: every 12 [place] C/Mn 36 (twelve) Medical (GLUCOSAMIN hours. Branch E 1500 COMPLEX ORAL) traMADol 50 2020-0 Yes 50mg Take 50 mg [facility] mg tablet 8-06 by mouth ity of 15:56: every 6 [place] 36 (six) Medical hours as Branch needed. gluc Yes Take by [facility] hernandez/chondro 8 mouth ity of hernandez A/vit 15:56: every 12 [place] C/Mn 36 (twelve) Medical (GLUCOSAMIN hours. Branch E 1500 COMPLEX ORAL) traMADol 50 Yes 50mg Take 50 mg [facility] mg tablet 09-13 by mouth ity of 15:56: every 6 [place] 36 (six) Medical hours as Branch needed. zinc oxide Yes [id number] Apply to Univers 3.8 % Oint 8-06 [place] ity of 00:00: [place] [address] Medical Branch zinc oxide 0 Yes [id number] Apply to Univers 3.8 % Oint 8-06 [place] ity of 00:00: [place] [address] Medical Branch zinc oxide 2020-0 Yes [id number] Apply to Univers 3.8 % Oint 8-06 [place] ity of 00:00: [place] [address] Medical Branch zinc oxide 2020-0 Yes [id number] Apply to Univers 3.8 % Oint 8-06 [place] ity of 00:00: [place] [address] Medical Branch zinc oxide 2020-0 2- No [id number] Apply to Univers 3.8 % Oint 8-06 07-20 [place] ity o f 00:00: 00:00 [facility] 00 :00 Medical Branch Miscellaneo 0 Yes [id number] [facility] 08-12 : Use as ity o f Supply Misc 00:00: directed; [place] ICD-10 Medical Z86.73, Branch I69.90, G81.94 Miscellaneo 0 Yes [id number] [facility] 08-12 : Use as ity o f Supply Misc 00:00: directed; [place] ICD-10 Medical Z86.73, Branch I69.90, G81.94 Miscellaneo 0 Yes [id number] [facility] 08-12 : Use as ity o f Supply Misc 00:00: directed; [place] ICD-10 Medical Z86.73, Branch I69.90, G81.94 Miscellaneo 0 Yes [id number] [facility] 08-12 : Use as ity o f Supply Misc 00:00: directed; [place] ICD-10 Medical Z86.73, Branch I69.90, G81.94 Miscellaneo Yes [id number] [facility] 08-12 : Use as ity o f Supply Misc 00:00: directed; [place] ICD-10 Medical Z86.73, Branch I69.90, G81.94 Miscellaneo Yes [id number] [facility] 08-12 : Use as ity o f Supply Misc 00:00: directed; [place] ICD-10 Medical Z86.73, Branch I69.90, G81.94 Miscellaneo Yes [id number] [facility] [place] : Use as ity o f Supply Misc 00:00: directed; [place] ICD-10 Medical Z86.73, Branch I69.90, G81.94 Miscellaneo Yes [id number] [facility] 08-12 : Use as ity o f Supply Misc 00:00: directed; [place] ICD-10 Medical Z86.73, Branch I69.90, G81.94 Miscellaneo 0 Yes [id number] [facility] 08-12 : Use as ity of Supply Misc 00:00: directed; [place] ICD-10 Medical Z86.73, Branch I69.90, G81.94 Miscellaneo 0 Yes [id number] [facility] 08-12 : Use as ity o f Supply Misc 00:00: directed; [place] ICD-10 Medical Z86.73, Branch I69.90, G81.94 Miscellaneo 0 Yes [id number] [facility] 08-12 : Use as ity o f Supply Misc 00:00: directed; [place] ICD-10 Medical Z86.73, Branch I69.90, G81.94 Miscellaneo 2021-0 Yes [id number] [facility] [place] : Use as ity o f Supply Misc 00:00: directed; [place] ICD-10 Medical Z86.73, Branch I69.90, G81.94 Miscellaneo Yes [id number] [facility] [place] : Use as ity o f Supply Misc 00:00: directed; [place] ICD-10 Medical Z86.73, Branch I69.90, G81.94 Miscellaneo Yes [id number] [facility] [place] : Use as ity o f Supply Misc 00:00: directed; [place] ICD-10 Medical Z86.73, Branch I69.90, G81.94 Miscellaneo [id number] [facility] [place] o f Supply Misc 00:00: directed; [place] ICD-10 Medical Z86.73, Branch I69.90, G81.94 Miscellaneo Yes [id number] [facility] [place] [facility] Use as ity o f Supply Misc 00:00: directed; [place] ICD-10 Medical Z86.73, Branch I69.90, G81.94 Miscellaneo Yes [id number] [facility] [place] [facility] Use as ity o f Supply Misc 00:00: directed; [place] ICD-10 Medical Z86.73, Branch I69.90, G81.94 Miscellaneo Yes [id number] [facility] [place] [facility] Use as ity o f Supply Misc 00:00: directed; [place] ICD-10 Medical Z86.73, Branch I69.90, G81.94 Miscellaneo Yes [id number] [facility] [place] [facility] Use [place] ity o f Supply Misc 00:00: directed; [place] ICD-10 Medical Z86.73, Branch I69.90, G81.94 Miscellaneo Yes [id number] [facility] [place] [facility] Use [place] o f Supply Misc 00:00: directed; [place] ICD-10 Medical Z86.73, Branch I69.90, G81.94 Miscellaneo 2020-0 Yes [id number] [facility] [place] [facility] Use [place] it[place] o f Supply Misc 00:00: directed; [place] ICD-10 Medical Z86.73, Branch I69.90, G81.94 Miscellaneo 0 Yes [id number] [facility] [place] [facility] Use [place] ity o f Supply Misc 00:00: directed; [place] ICD-10 Medical Z86.73, Branch I69.90, G81.94 Miscellaneo 0 Yes [id number] [facility] [place] [facility] Use [place] ity o f Supply Misc 00:00: directed; [place] ICD-10 Medical Z86.73, Branch I69.90, G81.94 Miscellaneo 0 Yes [id number] [facility] [place] [facility] Use as ity o f Supply Misc 00:00: directed; [place] ICD-10 Medical Z86.73, Branch I69.90, G81.94 Miscellaneo 0 Yes [id number] [facility] [place] [facility] [place] Use as ity o f Supply Misc 00:00: directed; [place] ICD-10 Medical Z86.73, Branch I69.90, G81.94 Miscellaneo 0 Yes [id number] [facility] [place] [facility] [place] Use [place] ity o f Supply Misc 00:00: directed; [place] ICD-10 Medical Z86.73, Branch I69.90, G81.94 Miscellaneo 0 Yes [id number] [facility] [place] [facility] [place] Use as ity o f Supply Misc 00:00: directed; [place] ICD-10 Medical Z86.73, Branch I69.90, G81.94 Miscellaneo 0 Yes [id number] [facility] [place] [facility] [place] Use as ity o f Supply Misc 00:00: directed; [place] ICD-10 Medical Z86.73, Branch I69.90, G81.94 Miscellaneo 0 Yes [id number] [facility] [place] [facility] [place] Use as ity o f Supply Misc 00:00: directed; [place] ICD-10 Medical Z86.73, Branch I69.90, G81.94 Miscellaneo 0 Yes [id number] [facility] [place] [facility] [place] Use as ity o f Supply Misc 00:00: directed; [place] ICD-10 Medical Z86.73, Branch I69.90, G81.94 Miscellaneo Yes [id number] [facility] [place] [facility] Use as ity o f Supply Misc 00:00: directed; [place] ICD-10 Medical Z86.73, Branch I69.90, G81.94 Miscellaneo 0 Yes [id number] [facility] [place] [facility] [place] Use as ity o f Supply Misc 00:00: directed; [place] ICD-10 Medical Z86.73, Branch I69.90, G81.94 Miscellaneo 0 Yes [id number] [facility] [place] [facility] [place] Use as ity o f Supply Misc 00:00: directed; [place] ICD-10 Medical Z86.73, Branch I69.90, G81.94 Miscellaneo 0 Yes [id number] [facility] [place] [facility] [place] Use as ity o f Supply Misc 00:00: directed; [place] ICD-10 Medical Z86.73, Branch I69.90, G81.94 Miscellaneo 0 Yes [id number] [facility] [place] [facility] [place] Use as ity o f Supply Misc 00:00: directed; [place] ICD-10 Medical Z86.73, Branch I69.90, G81.94 Miscellaneo 0 Yes [id number] [facility] [place] [facility] [place] Use as ity o f Supply Misc 00:00: directed; [place] ICD-10 Medical Z86.73, Branch I69.90, G81.94 Miscellaneo 0 Yes [id number] [facility] [place] [facility] [place] Use as ity o f Supply Misc 00:00: directed; [place] ICD-10 Medical Z86.73, Branch I69.90, G81.94 Miscellaneo 0 Yes [id number] [facility] [place] [facility] [place] Use as ity o f Supply Misc 00:00: directed; [place] ICD-10 Medical Z86.73, Branch I69.90, G81.94 Miscellaneo Yes [id number] [facility] [place] [facility] [place] Use as ity o f Supply Misc 00:00: directed; [place] ICD-10 Medical Z86.73, Branch I69.90, G81.94 Miscellaneo Yes [id number] [facility] [place] [facility] [place] Use as ity o f Supply Misc 00:00: directed; [place] ICD-10 Medical Z86.73, Branch I69.90, G81.94 Miscellaneo Yes [id number] [facility] [place] [facility] [place] Use as ity o f Supply Misc 00:00: directed; [place] ICD-10 Medical Z86.73, Branch I69.90, G81.94 Miscellaneo Yes [id number] [facility] [place] [facility] Use as ity o f Supply Misc 00:00: directed; [place] ICD-10 Medical Z86.73, Branch I69.90, G81.94 Miscellaneo Yes [id number] [facility] [place] [facility] [place] Use as ity o f Supply Misc 00:00: directed; [place] ICD-10 Medical Z86.73, Branch I69.90, G81.94 Miscellaneo 0 Yes [id number] [facility] [place] [facility] [place] Use as ity o f Supply Misc 00:00: directed; [place] ICD-10 Medical Z86.73, Branch I69.90, G81.94 Miscellaneo 0 Yes [id number] [facility] [place] [facility] [place] Use as ity o f Supply Misc 00:00: directed; [place] ICD-10 Medical Z86.73, Branch I69.90, G81.94 Miscellaneo 0 Yes [id number] [facility] [place] [facility] [place] Use as ity o f Supply Misc 00:00: directed; [place] ICD-10 Medical Z86.73, Branch I69.90, G81.94 Miscellaneo Yes [id number] [facility] [place] [facility] [place] Use as ity o f Supply Misc 00:00: directed; [place] ICD-10 Medical Z86.73, Branch I69.90, G81.94 Miscellaneo 0 Yes [id number] [facility] [place] [facility] Use as ity o f Supply Misc 00:00: directed; [place] ICD-10 Medical Z86.73, Branch I69.90, G81.94 Miscellaneo 0 Yes [id number] [facility] [place] [facility] Use as ity o f Supply Misc 00:00: directed; [place] ICD-10 Medical Z86.73, Branch I69.90, G81.94 Miscellaneo 0 Yes [id number] [facility] [place] [facility] Use as ity o f Supply Misc 00:00: directed; [place] ICD-10 Medical Z86.73, Branch I69.90, G81.94 Miscellaneo 0 Yes [id number] [facility] [place] [facility] [place] Use as ity o f Supply Misc 00:00: directed; [place] ICD-10 Medical Z86.73, Branch I69.90, G81.94 Miscellaneo 0 Yes [id number] [facility] [place] [facility] [place] Use as ity o f Supply Misc 00:00: directed; [place] ICD-10 Medical Z86.73, Branch I69.90, G81.94 Miscellaneo 2020-0 Yes [id number] [facility] [place] [facility] Use as ity o f Supply Misc 00:00: directed; [place] ICD-10 Medical Z86.73, Branch I69.90, G81.94 Miscellaneo 0 Yes [id number] [facility] [place] [facility] Use as ity o f Supply Misc 00:00: directed; [place] ICD-10 Medical Z86.73, Branch I69.90, G81.94 Miscellaneo Yes [id number] [facility] [place] [facility] [place] Use as ity o f Supply Misc 00:00: directed; [place] ICD-10 Medical Z86.73, Branch I69.90, G81.94 Miscellaneo Yes [id number] [facility] [place] [facility] [place] Use as ity o f Supply Misc 00:00: directed; [place] ICD-10 Medical Z86.73, Branch I69.90, G81.94 Miscellaneo Yes [id number] [facility] [place] [facility] Use as ity o f Supply Misc 00:00: directed; [place] ICD-10 Medical Z86.73, Branch I69.90, G81.94 Miscellaneo 0 Yes [id number] [facility] [place] [facility] [place] Use as ity o f Supply Misc 00:00: directed; [place] ICD-10 Medical Z86.73, Branch I69.90, G81.94 Miscellaneo 0 Yes [id number] [facility] [place] [facility] [place] Use as ity of Supply Misc 00:00: directed; [place] ICD-10 Medical Z86.73, Branch I69.90, G81.94 Miscellaneo 0 Yes [id number] [facility] [place] [facility] Use as ity o f Supply Misc 00:00: directed; [place] ICD-10 Medical Z86.73, Branch I69.90, G81.94 Miscellaneo 2020-0 Yes [id number] [facility] [place] [facility] [place] Use as ity o f Supply Misc 00:00: directed; [place] ICD-10 Medical Z86.73, Branch I69.90, G81.94 Miscellaneo 2020-0 Yes [id number] [facility] [place] [facility] [place] Use as ity o f Supply Misc 00:00: directed; [place] ICD-10 Medical Z86.73, Branch I69.90, G81.94 Miscellaneo 0 Yes [id number] [facility] [place] [facility] Use as ity o f Supply Misc 00:00: directed; [place] ICD-10 Medical Z86.73, Branch I69.90, G81.94 Miscellaneo 0 Yes [id number] [facility] [place] [facility] Use as ity o f Supply Misc 00:00: directed; [place] ICD-10 Medical Z86.73, Branch I69.90, G81.94 Miscellaneo 0 Yes [id number] [facility] [place] [facility] Use as ity o f Supply Misc 00:00: directed; [place] ICD-10 Medical Z86.73, Branch I69.90, G81.94 Miscellaneo 0 Yes [id number] [facility] [place] [facility] Use as ity o f Supply Misc 00:00: directed; [place] ICD-10 Medical Z86.73, Branch I69.90, G81.94 Miscellaneo 0 Yes [id number] [facility] [place] [facility] Use as ity o f Supply Misc 00:00: directed; [place] ICD-10 Medical Z86.73, Branch I69.90, G81.94 Miscellaneo 0 Yes [id number] [facility] [place] [facility] [facility] Use as ity o f Supply Misc 00:00: directed; [place] ICD-10 Medical Z86.73, Branch I69.90, G81.94 Miscellaneo 2020-0 Yes [id number] [facility] [place] [facility] [facility] Use as ity o f Supply Misc 00:00: directed; [place] ICD-10 Medical Z86.73, Branch I69.90, G81.94 Miscellaneo 0 Yes [id number] [facility] [place] [facility] Use as ity o f Supply Misc 00:00: directed; [place] ICD-10 Medical Z86.73, Branch I69.90, G81.94 Miscellaneo 0 Yes [id number] [facility] [place] [facility] Use as ity o f Supply Misc 00:00: directed; [place] ICD-10 Medical Z86.73, Branch I69.90, G81.94 Miscellaneo 0 Yes [id number] [facility] [place] [facility] Use as ity o f Supply Misc 00:00: directed; [place] ICD-10 Medical Z86.73, Branch I69.90, G81.94 Miscellaneo 0 Yes [id number] [facility] [place] [facility] Use as ity o f Supply Misc 00:00: directed; [place] ICD-10 Medical Z86.73, Branch I69.90, G81.94 Miscellaneo 0 Yes [id number] [facility] [place] [facility] Use as ity o f Supply Misc 00:00: directed; [place] ICD-10 Medical Z86.73, Branch I69.90, G81.94 Miscellaneo 0 Yes [id number] [facility] [place] [facility] [facility] Use as ity o f Supply Misc 00:00: directed; [place] ICD-10 Medical Z86.73, Branch I69.90, G81.94 Miscellaneo 0 Yes [id number] [facility] [place] [facility] [facility] Use as ity o f Supply Misc 00:00: directed; [place] ICD-10 Medical Z86.73, Branch I69.90, G81.94 Miscellaneo 2020-0 Yes [id number] [facility] [place] [facility] [facility] Use as ity o f Supply Misc 00:00: directed; [place] ICD-10 Medical Z86.73, Branch I69.90, G81.94 Miscellaneo 2020-0 Yes [id number] [facility] [place] [facility] Use as ity o f Supply Misc 00:00: directed; [place] ICD-10 Medical Z86.73, Branch I69.90, G81.94 Miscellaneo 0 Yes [id number] [facility] [place] [facility] Use as ity o f Supply Misc 00:00: directed; [place] ICD-10 Medical Z86.73, Branch I69.90, G81.94 Miscellaneo 0 Yes [id number] [facility] [place] [facility] Use as ity o f Supply Misc 00:00: directed; [place] ICD-10 Medical Z86.73, Branch I69.90, G81.94 Miscellaneo 0 Yes [id number] [facility] [place] [facility] Use as ity o f Supply Misc 00:00: directed; [place] ICD-10 Medical Z86.73, Branch I69.90, G81.94 Miscellaneo 0 Yes [id number] [facility] [place] [facility] Use as ity o f Supply Misc 00:00: directed; [place] ICD-10 Medical Z86.73, Branch I69.90, G81.94 Miscellaneo 2020-0 Yes [id number] [facility] [place] [facility] Use as ity o f Supply Misc 00:00: directed; [place] ICD-10 Medical Z86.73, Branch I69.90, G81.94 Miscellaneo 0 Yes [id number] [facility] [place] [facility] Use as ity o f Supply Misc 00:00: directed; [place] 00 ICD-10 Medical Z86.73, Branch I69.90, G81.94 Miscellaneo 2020-0 Yes [id number] [facility] 08-12 : Use as ity o f Supply Misc 00:00: directed; [place] 00 ICD-10 Medical Z86.73, Branch I69.90, G81.94 VENTOLIN 2020-1 Yes INHALE 2 Unive rs HFA 90 2-01 PUFFS BY ity of mcg/actuati 00:00: MOUTH [place] on inhaler 00 EVERY 6 Medica l HOURS Branch NEEDED FOR SHORTNESS OF BREATH VENTOLIN 2019- Yes INHALE 2 Unive rs HFA 90 2-01 PUFFS BY ity of mcg/actuati 00:00: MOUTH [place] on inhaler 00 EVERY 6 Medica l HOURS Branch NEEDED FOR SHORTNESS OF BREATH VENTOLIN 2019- Yes INHALE 2 Unive rs HFA 90 2-01 PUFFS BY ity of mcg/actuati 00:00: MOUTH [place] on inhaler 00 EVERY 6 Medica l HOURS Branch NEEDED FOR SHORTNESS OF BREATH VENTOLIN 2019- Yes INHALE 2 Unive rs HFA 90 2-01 PUFFS BY ity of mcg/actuati 00:00: MOUTH [place] on inhaler 00 EVERY 6 Medica l HOURS Branch NEEDED FOR SHORTNESS OF BREATH VENTOLIN 2019-2021- No INHALE 2 Univ ers HFA 90 2-01 07-20 PUFFS BY ity of mcg/actuati 00:00: 00:00 [place] inhaler 00 :00 EVERY 6 Medica l HOURS Branch NEEDED FOR SHORTNESS OF BREATH ipratropium 2020- Yes Univer s -albuteroL 1-16 [...] nebulizer solution ipratropium 2019-02- Unive rs -albuteroL 1-16 06-03 ity of 0.5 mg-3 00:00: 00:00 [place] mg(2.5 mg 00 :00 Medical base)/3 mL Branch nebulizer solution Immunizations Ordered Filled Immunization Date Status Comments [facility] Immunization Name Name SARS-COV-2 COVID-19 2020-11-01 Completed Unive rsity of PFIZER VACCINE 00:00:00 [facility] SARS-COV-2 COVID-19 2020-11-01 Completed Unive rsity of PFIZER VACCINE 00:00:00 [facility] SARS-COV-2 COVID-19 2020-11-01 Completed Unive rsity of PFIZER VACCINE 00:00:00 [facility] SARS-COV-2 COVID-19 2020-11-01 Completed Unive rsity of PFIZER VACCINE 00:00:00 [facility] SARS-COV-2 COVID-19 2020-11-01 Completed Unive rsity of PFIZER VACCINE 00:00:00 [facility] SARS-COV-2 COVID-19 2020-11-01 Completed Unive rsity of PFIZER VACCINE 00:00:00 [facility] SARS-COV-2 COVID-19 2020-11-01 Completed Unive rsity of PFIZER VACCINE 00:00:00 [facility] SARS-COV-2 COVID-19 2020-11-01 Completed Unive rsity of PFIZER VACCINE 00:00:00 [facility] SARS-COV-2 COVID-19 2020-11-01 Completed Unive rsity of PFIZER VACCINE 00:00:00 [facility] SARS-COV-2 COVID-19 2020-11-01 Completed Unive rsity of PFIZER VACCINE 00:00:00 [place] [facility] SARS-COV-2 COVID-19 2020-11-01 Completed Unive rsity of PFIZER VACCINE 00:00:00 [facility] SARS-COV-2 COVID-19 2020-11-01 Completed Unive rsity of PFIZER VACCINE 00:00:00 [facility] SARS-COV-2 COVID-19 2020-11-01 Completed Unive rsity of PFIZER VACCINE 00:00:00 [facility] SARS-COV-2 COVID-19 2020-11-01 Completed Unive rsity of PFIZER VACCINE 00:00:00 [facility] SARS-COV-2 COVID-19 2020-11-01 Completed Unive rsity of PFIZER VACCINE 00:00:00 [facility] SARS-COV-2 COVID-19 2020-11-01 Completed Unive rsity of PFIZER VACCINE 00:00:00 [facility] SARS-COV-2 COVID-19 2020-11-01 Completed Unive rsity of PFIZER VACCINE 00:00:00 [facility] SARS-COV-2 COVID-19 2020-11-01 Completed Unive rsity of PFIZER VACCINE 00:00:00 [facility] SARS-COV-2 COVID-19 2020-11-01 Completed Unive rsity of PFIZER VACCINE 00:00:00 [facility] SARS-COV-2 COVID-19 2020-11-01 Completed Unive rsity of PFIZER VACCINE 00:00:00 [facility] SARS-COV-2 COVID-19 2020-11-01 Completed Unive rsity of PFIZER VACCINE 00:00:00 [facility] SARS-COV-2 COVID-19 2020-11-01 Completed Unive rsity of PFIZER VACCINE 00:00:00 [facility] SARS-COV-2 COVID-19 2020-11-01 Completed Unive rsity of PFIZER VACCINE 00:00:00 [facility] SARS-COV-2 COVID-19 2020-11-01 Completed Unive rsity of PFIZER VACCINE 00:00:00 [facility] SARS-COV-2 COVID-19 2020-11-01 Completed Unive rsity of PFIZER VACCINE 00:00:00 [place] [facility] SARS-COV-2 COVID-19 2020-11-01 Completed Unive rsity of PFIZER VACCINE 00:00:00 [facility] SARS-COV-2 COVID-19 2020-11-01 Completed Unive rsity of PFIZER VACCINE 00:00:00 [facility] SARS-COV-2 COVID-19 2020-11-01 Completed Unive rsity of PFIZER VACCINE 00:00:00 [facility] SARS-COV-2 COVID-19 2020-11-01 Completed Unive rsity of PFIZER VACCINE 00:00:00 [facility] SARS-COV-2 COVID-19 2020-11-01 Completed Unive rsity of PFIZER VACCINE 00:00:00 [facility] SARS-COV-2 COVID-19 2020-11-01 Completed Unive rsity of PFIZER VACCINE 00:00:00 [facility] SARS-COV-2 COVID-19 2020-11-01 Completed Unive rsity of PFIZER VACCINE 00:00:00 [facility] SARS-COV-2 COVID-19 2020-11-01 Completed Unive rsity of PFIZER VACCINE 00:00:00 [facility] SARS-COV-2 COVID-19 2020-11-01 Completed Unive rsity of PFIZER VACCINE 00:00:00 [facility] SARS-COV-2 COVID-19 2020-11-01 Completed Unive rsity of PFIZER VACCINE 00:00:00 [facility] SARS-COV-2 COVID-19 2020-11-01 Completed Unive rsity of PFIZER VACCINE 00:00:00 [facility] SARS-COV-2 COVID-19 2020-11-01 Completed Unive rsity of PFIZER VACCINE 00:00:00 [facility] SARS-COV-2 COVID-19 2020-11-01 Completed Unive rsity of PFIZER VACCINE 00:00:00 [facility] SARS-COV-2 COVID-19 2020-11-01 Completed Unive rsity of PFIZER VACCINE 00:00:00 [facility] SARS-COV-2 COVID-19 2020-11-01 Completed Unive rsity of PFIZER VACCINE 00:00:00 [facility] SARS-COV-2 COVID-19 2020-11-01 Completed Unive rsity of PFIZER VACCINE 00:00:00 [facility] SARS-COV-2 COVID-19 2020-11-01 Completed Unive rsity of PFIZER VACCINE 00:00:00 [facility] SARS-COV-2 COVID-19 2020-11-01 Completed Unive rsity of PFIZER VACCINE 00:00:00 [facility] SARS-COV-2 COVID-19 2020-11-01 Completed Unive rsity of PFIZER VACCINE 00:00:00 [facility] SARS-COV-2 COVID-19 2020-11-01 Completed Unive rsity of PFIZER VACCINE 00:00:00 [facility] SARS-COV-2 COVID-19 2020-11-01 Completed Unive rsity of PFIZER VACCINE 00:00:00 [facility] SARS-COV-2 COVID-19 2020-11-01 Completed Unive rsity of PFIZER VACCINE 00:00:00 [facility] SARS-COV-2 COVID-19 2020-11-01 Completed Unive rsity of PFIZER VACCINE 00:00:00 [facility] SARS-COV-2 COVID-19 2020-11-01 Completed Unive rsity of PFIZER VACCINE 00:00:00 [facility] SARS-COV-2 COVID-19 2020-11-01 Completed Unive rsity of PFIZER VACCINE 00:00:00 [facility] SARS-COV-2 COVID-19 2020-11-01 Completed Unive rsity of PFIZER VACCINE 00:00:00 [facility] SARS-COV-2 COVID-19 2020-11-01 Completed Unive rsity of PFIZER VACCINE 00:00:00 [facility] SARS-COV-2 COVID-19 2020-11-01 Completed Unive rsity of PFIZER VACCINE 00:00:00 [facility] SARS-COV-2 COVID-19 2020-11-01 Completed Unive rsity of PFIZER VACCINE 00:00:00 [facility] SARS-COV-2 COVID-19 2020-11-01 Completed Unive rsity of PFIZER VACCINE 00:00:00 [facility] SARS-COV-2 COVID-19 2020-11-01 Completed Unive rsity of PFIZER VACCINE 00:00:00 [facility] SARS-COV-2 COVID-19 2020-11-01 Completed Unive rsity of PFIZER VACCINE 00:00:00 [facility] SARS-COV-2 COVID-19 2020-11-01 Completed Unive rsity of PFIZER VACCINE 00:00:00 [facility] SARS-COV-2 COVID-19 2020-11-01 Completed Unive rsity of PFIZER VACCINE 00:00:00 [facility] SARS-COV-2 COVID-19 2020-11-01 Completed Unive rsity of PFIZER VACCINE 00:00:00 [facility] SARS-COV-2 COVID-19 2020-11-01 Completed Unive rsity of PFIZER VACCINE 00:00:00 [facility] SARS-COV-2 COVID-19 2020-11-01 Completed Unive rsity of PFIZER VACCINE 00:00:00 [facility] SARS-COV-2 COVID-19 2020-11-01 Completed Unive rsity of PFIZER VACCINE 00:00:00 [facility] SARS-COV-2 COVID-19 2020-11-01 Completed Unive rsity of PFIZER VACCINE 00:00:00 [facility] SARS-COV-2 COVID-19 2020-11-01 Completed Unive rsity of PFIZER VACCINE 00:00:00 [facility] SARS-COV-2 COVID-19 2020-11-01 Completed Unive rsity of PFIZER VACCINE 00:00:00 [facility] SARS-COV-2 COVID-19 2020-11-01 Completed Unive rsity of PFIZER VACCINE 00:00:00 [facility] SARS-COV-2 COVID-19 2020-11-01 Completed Unive rsity of PFIZER VACCINE 00:00:00 [facility] SARS-COV-2 COVID-19 2020-11-01 Completed Unive rsity of PFIZER VACCINE 00:00:00 [facility] SARS-COV-2 COVID-19 2020-11-01 Completed Unive rsity of PFIZER VACCINE 00:00:00 [facility] SARS-COV-2 COVID-19 2020-11-01 Completed Unive rsity of PFIZER VACCINE 00:00:00 [facility] SARS-COV-2 COVID-19 2020-11-01 Completed Unive rsity of PFIZER VACCINE 00:00:00 [facility] SARS-COV-2 COVID-19 2020-11-01 Completed Unive rsity of PFIZER VACCINE 00:00:00 [facility] SARS-COV-2 COVID-19 2020-11-01 Completed Unive rsity of PFIZER VACCINE 00:00:00 [facility] SARS-COV-2 COVID-19 2020-11-01 Completed Unive rsity of PFIZER VACCINE 00:00:00 [facility] SARS-COV-2 COVID-19 2020-11-01 Completed Unive rsity of PFIZER VACCINE 00:00:00 [facility] SARS-COV-2 COVID-19 2020-11-01 Completed Unive rsity of PFIZER VACCINE 00:00:00 [facility] SARS-COV-2 COVID-19 2020-11-01 Completed Unive rsity of PFIZER VACCINE 00:00:00 [facility] SARS-COV-2 COVID-19 2020-11-01 Completed Unive rsity of PFIZER VACCINE 00:00:00 [facility] SARS-COV-2 COVID-19 2020-11-01 Completed Unive rsity of PFIZER VACCINE 00:00:00 [facility] SARS-COV-2 COVID-19 2020-11-01 Completed Unive rsity of PFIZER VACCINE 00:00:00 [facility] SARS-COV-2 COVID-19 2020-11-01 Completed Unive rsity of PFIZER VACCINE 00:00:00 [facility] SARS-COV-2 COVID-19 2020-11-01 Completed Unive rsity of PFIZER VACCINE 00:00:00 [facility] SARS-COV-2 COVID-19 2020-11-01 Completed [facility] PFIZER VACCINE 00:00:00 [facility] SARS-COV-2 COVID-19 2020-11-01 Completed [facility] PFIZER VACCINE 00:00:00 [facility] Influenza High Dose 2020-10-09 Completed [facility] 00:00:00 [facility] Influenza High Dose 2020-10-09 Completed [facility] 00:00:00 [facility] Influenza High Dose 2020-10-09 Completed [facility] 00[facility]00[facility]00 [facility] [facility] Influenza High Dose 2020-10-09 Completed Unive rsity [...] Dose 2020-10-09 Completed [facility] 00:00:00 [facility] Influenza High Dose 2020-10-09 Completed [facility] 00:00:00 [facility] Influenza High Dose 2020-10-09 Completed [facility] 00:00:00 [facility] Influenza High Dose 2020-10-09 Completed [facility] 00:00:00 [facility] Influenza High Dose 2020-10-09 Completed [facility] 00:00:00 [facility] Influenza High Dose 2020-10-09 Completed [facility] 00:00:00 [facility] Influenza High Dose 2020-10-09 Completed [facility] of 00:00:00 [facility] Influenza High Dose 2020-10-09 Completed [...] Dose 2020-10-09 Completed [facility] 00:00:00 [facility] Influenza High Dose 2020-10-09 Completed [facility] of 00:00:00 [facility] Influenza High Dose 2020-10-09 Completed [facility] 00:00:00 [facility] Influenza High Dose 2020-10-09 Completed [facility] 00:00:00 [facility] Influenza High Dose 2020-10-09 Completed [facility] 00:00:00 [facility] Influenza High Dose 2020-10-09 Completed [facility] of 00:00:00 [facility] Influenza High Dose 2020-10-09 Completed [facility] of 00:00:00 [facility] Influenza High Dose 2020-10-09 Completed [...] Dose 2020-10-09 Completed [facility] 00:00:00 [facility] Influenza High Dose 2020-10-09 Completed [facility] 00:00:00 [facility] Influenza High Dose 2020-10-09 Completed [facility] 00:00:00 [facility] Influenza High Dose 2020-10-09 Completed [facility] 00:00:00 [facility] Influenza High Dose 2020-10-09 Completed [facility] 00:00:00 [facility] Influenza High Dose 2020-10-09 Completed [facility] 00:00:00 [facility] Influenza High Dose 2020-10-09 Completed [facility] of 00:00:00 [facility] Influenza High Dose 2020-10-09 Completed [facility] 00:00:00 [facility] Influenza High Dose 2020-10-09 Completed [facility] of 00:00:00 [facility] Influenza High Dose 2020-10-09 Completed [facility] of 00:00:00 [facility] Influenza High Dose 2020-10-09 Completed [facility] of 00:00:00 [facility] Influenza High Dose 2020-10-09 Completed [facility] of 00:00:00 [facility] Influenza High Dose 2020-10-09 Completed [facility] of 00:00:00 [facility] Influenza High Dose 2020-10-09 Completed [facility] of 00:00:00 [facility] Influenza High Dose 2020-10-09 Completed [facility] of 00:00:00 [facility] Influenza High Dose 2020-10-09 Completed [facility] 00:00:00 [facility] SARS-COV-2 COVID-19 2020-10-02 Completed Unive rsity of PFIZER VACCINE 00:00:00 [facility] SARS-COV-2 COVID-19 2020-10-02 Completed Unive rsity of PFIZER VACCINE 00:00:00 [facility] SARS-COV-2 COVID-19 2020-10-02 Completed [facility] rsity of PFIZER VACCINE 00:00:00 [facility] SARS-COV-2 COVID-19 2020-10-02 Completed [facility] PFIZER VACCINE 00:00:00 [facility] SARS-COV-2 COVID-19 2020-10-02 Completed [facility] of PFIZER VACCINE 00:00:00 [facility] SARS-COV-2 COVID-19 2020-10-02 Completed [facility]ive rsity of PFIZER VACCINE 00:00:00 [facility] SARS-COV-2 COVID-19 2020-10-02 Completed [facility]ive rsity of PFIZER VACCINE 00:00:00 [facility] SARS-COV-2 COVID-19 2020-10-02 Completed [facility] rs[facility] of PFIZER VACCINE 00:00:00 [facility] SARS-COV-2 COVID-19 2020-10-02 Completed [facility]ive rs[facility] of PFIZER VACCINE 00:00:00 [facility] SARS-COV-2 COVID-19 2020-10-02 Completed [facility]ive rsity of PFIZER VACCINE 00:00:00 [facility] SARS-COV-2 COVID-19 2020-10-02 Completed [facility]ive rsity of PFIZER VACCINE 00:00:00 [facility] SARS-COV-2 COVID-19 2020-10-02 Completed [facility]ive rsity of PFIZER VACCINE 00:00:00 [facility] SARS-COV-2 COVID-19 2020-10-02 Completed [facility]ive rsity of PFIZER VACCINE 00:00:00 [facility] SARS-COV-2 COVID-19 2020-10-02 Completed [facility] rs[facility] of PFIZER VACCINE 00:00:00 [facility] SARS-COV-2 COVID-19 2020-10-02 Completed [facility]ive rsity of PFIZER VACCINE 00:00:00 [facility] SARS-COV-2 COVID-19 2020-10-02 Completed [facility]ive rsity of PFIZER VACCINE 00:00:00 [facility] SARS-COV-2 COVID-19 2020-10-02 Completed [facility] rsity of PFIZER VACCINE 00:00:00 [facility] SARS-COV-2 COVID-19 2020-10-02 Completed [facility] rs[facility] of PFIZER VACCINE 00:00:00 [facility] SARS-COV-2 COVID-19 2020-10-02 Completed [facility]ive rsity of PFIZER VACCINE 00:00:00 [facility] SARS-COV-2 COVID-19 2020-10-02 Completed [facility]ive rsity of PFIZER VACCINE 00:00:00 [facility] SARS-COV-2 COVID-19 2020-10-02 Completed [facility]ive rsity of PFIZER VACCINE 00:00:00 [facility] SARS-COV-2 COVID-19 2020-10-02 Completed [facility]ive rs[facility] of PFIZER VACCINE 00:00:00 [facility] SARS-COV-2 COVID-19 2020-10-02 Completed [facility]ive rsity of PFIZER VACCINE 00:00:00 [facility] SARS-COV-2 COVID-19 2020-10-02 Completed [facility]ive rsity of PFIZER VACCINE 00:00:00 [facility] SARS-COV-2 COVID-19 2020-10-02 Completed [facility]ive rsity of PFIZER VACCINE 00:00:00 [facility] SARS-COV-2 COVID-19 2020-10-02 Completed [facility]ive rsity of PFIZER VACCINE 00:00:00 [facility] SARS-COV-2 COVID-19 2020-10-02 Completed [facility]ive rsity of PFIZER VACCINE 00:00:00 [facility] SARS-COV-2 COVID-19 2020-10-02 Completed [facility]ive rs[facility] of PFIZER VACCINE 00:00:00 [facility] SARS-COV-2 COVID-19 2020-10-02 Completed [facility]ive rsity of PFIZER VACCINE 00:00:00 [facility] SARS-COV-2 COVID-19 2020-10-02 Completed [facility]ive rsity of PFIZER VACCINE 00:00:00 [facility] SARS-COV-2 COVID-19 2020-10-02 Completed [facility]ive rsity of PFIZER VACCINE 00:00:00 [facility] SARS-COV-2 COVID-19 2020-10-02 Completed [facility]ive rsity of PFIZER VACCINE 00:00:00 [facility] SARS-COV-2 COVID-19 2020-10-02 Completed [facility]ive rsity of PFIZER VACCINE 00:00:00 [facility] SARS-COV-2 COVID-19 2020-10-02 Completed [facility]ive rsity of PFIZER VACCINE 00:00:00 [facility] SARS-COV-2 COVID-19 2020-10-02 Completed [facility]ive rsity of PFIZER VACCINE 00:00:00 [facility] SARS-COV-2 COVID-19 2020-10-02 Completed [facility]ive rsity of PFIZER VACCINE 00:00:00 [facility] SARS-COV-2 COVID-19 2020-10-02 Completed [facility]ive rsity of PFIZER VACCINE 00:00:00 [facility] SARS-COV-2 COVID-19 2020-10-02 Completed [facility]ive rsity of PFIZER VACCINE 00:00:00 [facility] SARS-COV-2 COVID-19 2020-10-02 Completed [facility]ive rsity of PFIZER VACCINE 00:00:00 [facility] SARS-COV-2 COVID-19 2020-10-02 Completed [facility]ive rsity of PFIZER VACCINE 00:00:00 [facility] SARS-COV-2 COVID-19 2020-10-02 Completed [facility]ive rs[facility] of PFIZER VACCINE 00:00:00 [facility] SARS-COV-2 COVID-19 2020-10-02 Completed [facility]ive rs[facility] of PFIZER VACCINE 00:00:00 [facility] SARS-COV-2 COVID-19 2020-10-02 Completed [facility]ive rsity of PFIZER VACCINE 00:00:00 [facility] SARS-COV-2 COVID-19 2020-10-02 Completed [facility]ive rsity of PFIZER VACCINE 00:00:00 [facility] SARS-COV-2 COVID-19 2020-10-02 Completed [facility]ive rs[facility] of PFIZER VACCINE 00:00:00 [facility] SARS-COV-2 COVID-19 2020-10-02 Completed [facility]ive rsity of PFIZER VACCINE 00:00:00 [facility] SARS-COV-2 COVID-19 2020-10-02 Completed [facility]ive rs[facility] of PFIZER VACCINE 00:00:00 [facility] SARS-COV-2 COVID-19 2020-10-02 Completed [facility]ive rsity of PFIZER VACCINE 00:00:00 [facility] SARS-COV-2 COVID-19 2020-10-02 Completed [facility]ive rsity of PFIZER VACCINE 00:00:00 [facility] SARS-COV-2 COVID-19 2020-10-02 Completed [facility]ive rs[facility] of PFIZER VACCINE 00:00:00 [facility] SARS-COV-2 COVID-19 2020-10-02 Completed [facility]ive rsity of PFIZER VACCINE 00:00:00 [facility] SARS-COV-2 COVID-19 2020-10-02 Completed [facility]ive rsity of PFIZER VACCINE 00:00:00 [facility] SARS-COV-2 COVID-19 2020-10-02 Completed [facility]ive rsity of PFIZER VACCINE 00:00:00 [facility] SARS-COV-2 COVID-19 2020-10-02 Completed [facility]ive rsity of PFIZER VACCINE 00:00:00 [facility] SARS-COV-2 COVID-19 2020-10-02 Completed [facility]ive rsity of PFIZER VACCINE 00:00:00 [facility] SARS-COV-2 COVID-19 2020-10-02 Completed [facility]ive rsity of PFIZER VACCINE 00:00:00 [facility] SARS-COV-2 COVID-19 2020-10-02 Completed Unive rsity of PFIZER VACCINE 00:00:00 [facility] SARS-COV-2 COVID-19 2020-10-02 Completed Unive rsity of PFIZER VACCINE 00:00:00 [facility] SARS-COV-2 COVID-19 2020-10-02 Completed Unive rsity of PFIZER VACCINE 00:00:00 [facility] SARS-COV-2 COVID-19 2020-10-02 Completed Unive rsity of PFIZER VACCINE 00:00:00 [facility] SARS-COV-2 COVID-19 2020-10-02 Completed [facility]ive rsity of PFIZER VACCINE 00:00:00 [facility] SARS-COV-2 COVID-19 2020-10-02 Completed Unive rsity of PFIZER VACCINE 00:00:00 [facility] SARS-COV-2 COVID-19 2020-10-02 Completed Unive rsity of PFIZER VACCINE 00:00:00 [facility] SARS-COV-2 COVID-19 2020-10-02 Completed [facility]ive rsity of PFIZER VACCINE 00:00:00 [facility] SARS-COV-2 COVID-19 2020-10-02 Completed [facility]ive rsity of PFIZER VACCINE 00:00:00 [facility] SARS-COV-2 COVID-19 2020-10-02 Completed [facility]ive rsity of PFIZER VACCINE 00:00:00 [facility] SARS-COV-2 COVID-19 2020-10-02 Completed [facility]ive rsity of PFIZER VACCINE 00:00:00 [facility] SARS-COV-2 COVID-19 2020-10-02 Completed [facility]ive rsity of PFIZER VACCINE 00:00:00 [facility] SARS-COV-2 COVID-19 2020-10-02 Completed Unive rsity of PFIZER VACCINE 00:00:00 [facility] SARS-COV-2 COVID-19 2020-10-02 Completed [facility]ive rsity of PFIZER VACCINE 00:00:00 [facility] SARS-COV-2 COVID-19 2020-10-02 Completed [facility]ive rsity of PFIZER VACCINE 00:00:00 [facility] SARS-COV-2 COVID-19 2020-10-02 Completed Unive rsity of PFIZER VACCINE 00:00:00 [facility] SARS-COV-2 COVID-19 2020-10-02 Completed Unive rsity of PFIZER VACCINE 00:00:00 [facility] SARS-COV-2 COVID-19 2020-10-02 Completed [facility]ive rsity of PFIZER VACCINE 00:00:00 [facility] SARS-COV-2 COVID-19 2020-10-02 Completed [facility]ive rsity of PFIZER VACCINE 00:00:00 [facility] SARS-COV-2 COVID-19 2020-10-02 Completed Unive rsity of PFIZER VACCINE 00:00:00 [facility] SARS-COV-2 COVID-19 2020-10-02 Completed Unive rsity of PFIZER VACCINE 00:00:00 [facility] SARS-COV-2 COVID-19 2020-10-02 Completed Unive rsity of PFIZER VACCINE 00:00:00 [facility] SARS-COV-2 COVID-19 2020-10-02 Completed Unive rsity of PFIZER VACCINE 00:00:00 [facility] SARS-COV-2 COVID-19 2020-10-02 Completed [facility]ive rsity of PFIZER VACCINE 00:00:00 [facility] SARS-COV-2 COVID-19 2020-10-02 Completed [facility]ive rs[facility] of PFIZER VACCINE 00:00:00 [facility] SARS-COV-2 COVID-19 2020-10-02 Completed Unive rsity of PFIZER VACCINE 00:00:00 [facility] SARS-COV-2 COVID-19 2020-10-02 Completed Unive rsity of PFIZER VACCINE 00:00:00 [facility] SARS-COV-2 COVID-19 2020-10-02 Completed Unive rsity of PFIZER VACCINE 00:00:00 [facility] SARS-COV-2 COVID-19 2020-10-02 Completed Unive rsity of PFIZER VACCINE 00:00:00 [facility] Vital Signs Vital Name Observation Time Observation Value Comments Source Systolic blood 2022-07-14 21:05:00 143 mm[Hg] Univer [facility]ity of pressure [facility] Diastolic blood 2022-07-14 21:05:00 66 mm[Hg] [facility]ive [facility]ity of pressure [facility] Heart rate 2022-07-14 21:05:00 59 /min [facility] Body temperature 2022-07-14 21:05:00 36.89 Renu Univ ersity of [facility] Respiratory rate 2022-07-14 21:05:00 20 /min Univ ersity of [facility] Oxygen saturation in 2022-07-14 21:05:00 97 /min [facility] of Arterial blood by [facility]xim[facility] Body height 2022-07-12 01:00:00 182.9 cm Universi ty [facility] Body weight 2022-07-12 01:00:00 75.66 kg [facility]i ty [facility] BMI 2022-07-12 01:00:00 22.62 kg/m2 [facility] Systolic blood 2022-07-11 16:00:00 138 mm[Hg] Univer [facility]ity of pressure [facility] Diastolic blood 2022-07-11 16:00:00 68 mm[Hg] Unive rsity of pressure [facility] Heart rate 2022-07-11 16:00:00 65 /min [facility]i ty of [facility] Respiratory rate 2022-07-11 16:00:00 15 /min Univ ersity of [facility] Oxygen saturation in 2022-07-11 16:00:00 98 /min [facility] Arterial blood by [facility] Body temperature 2022-07-11 15:35:00 36.67 Renu Univ ers[facility] of [facility] Body weight 2022-07-11 15:35:00 77.111 kg [facility] ty [facility] BMI 2022-07-11 15:35:00 23.06 kg/m2 [facility] Systolic blood 2022-07-10 13:12:00 122 mm[Hg] Univer sity of pressure [facility] Diastolic blood 2022-07-10 13:12:00 72 mm[Hg] Unive rsity of pressure [facility] Heart rate 2022-07-10 13:12:00 70 /min [facility] Body height 2022-07-10 13:12:00 182.9 cm [facility] Body weight 2022-07-10 13:12:00 77.111 kg [facility] BMI 2022-07-10 13:12:00 23.06 kg/m2 [facility] Oxygen saturation in 2022-07-10 13:12:00 96 /min [facility] by [facility] Systolic blood 2022-06-25 19:18:00 136 mm[Hg] Univer [facility]ity of pressure [facility] Diastolic blood 2022-06-25 19:18:00 77 mm[Hg] Unive rsity of pressure [facility] Heart rate 2022-06-25 19:18:00 72 /min [facility] Body height 2022-06-25 19:18:00 182.9 cm [facility] Body weight 2022-06-25 19:18:00 78.472 kg [facility] BMI 2022-06-25 19:18:00 23.46 kg/m2 [facility] Oxygen saturation in 2022-06-25 19:18:00 99 /min [facility] Systolic blood 2022-05-02 16:41:00 121 mm[Hg] Univer [facility]ity of pressure [facility] Diastolic blood 2022-05-02 16:41:00 68 mm[Hg] Unive rsity of pressure [facility] Heart rate 2022-05-02 16:41:00 60 /min [facility] Body temperature 2022-05-02 16:41:00 36.06 Renu [facility] Respiratory rate 2022-05-02 16:41:00 18 /min [facility] Oxygen saturation in 2022-05-02 16:41:00 98 /min [facility] Arterial blood by [facility] Body weight 2022-05-02 09:45:00 78.217 kg per scale [facility] BMI 2022-05-02 09:45:00 23.39 kg/m2 [facility] Body height 2022-05-01 23:10:00 182.9 cm [facility] Body weight 2022-04-27 20:16:00 77.4 kg [facility] BMI 2022-04-27 20:16:00 23.39 kg/m2 [facility] Systolic blood 2022-03-27 20:27:00 126 mm[Hg] Univer [facility]ity of pressure [facility] Diastolic blood 2022-03-27 20:27:00 57 mm[Hg] [facility] of pressure [facility] Heart rate 2022-03-27 20:27:00 70 /min [facility] Body temperature 2022-03-27 20:27:00 36.28 Renu [facility] Body height 2022-03-27 20:27:00 182.9 cm [facility] Body weight 2022-03-27 20:27:00 77.111 kg [facility] BMI 2022-03-27 20:27:00 23.06 kg/m2 [facility] Oxygen saturation in 2022-03-27 20:27:00 99 /min [facility] Arterial blood by [facility] Systolic blood 2022-03-12 18:04:00 105 mm[Hg] Univer sity of pressure [facility] Diastolic blood 2022-03-12 18:04:00 55 mm[Hg] Unive rsity of pressure [facility] Heart rate 2022-03-12 18:04:00 57 /min [facility] Body temperature 2022-03-12 18:04:00 36.78 Renu [facility] Body height 2022-03-12 18:04:00 182.9 cm [facility] Body weight 2022-03-12 18:04:00 76.204 kg [facility] BMI 2022-03-12 18:04:00 22.78 kg/m2 [facility] Oxygen saturation in 2022-03-12 18:04:00 98 /min [facility] Systolic blood 2022-03-02 15:26:00 120 mm[Hg] Univer [facility]ity of pressure [facility] Diastolic blood 2022-03-02 15:26:00 56 mm[Hg] Unive rsity of pressure [facility] Heart rate 2022-03-02 15:26:00 56 /min [facility] Respiratory rate 2022-03-02 15:26:00 20 /min [facility] Body height 2022-03-02 15:26:00 177.8 cm [facility] Body weight 2022-03-02 15:26:00 76.204 kg [facility] BMI 2022-03-02 15:26:00 24.11 kg/m2 [facility] Oxygen saturation in 2022-03-02 15:26:00 100 /min [facility] by [facility] Systolic blood 2022-02-06 21:30:00 137 mm[Hg] Univer [facility]ity of pressure [facility] Diastolic blood 2022-02-06 21:30:00 79 mm[Hg] Unive rsity of pressure [facility] Heart rate 2022-02-06 21:30:00 70 /min [facility] Body height 2022-02-06 21:30:00 182.9 cm [facility] Body weight 2022-02-06 21:30:00 70.308 kg [facility] BMI 2022-02-06 21:30:00 21.02 kg/m2 [facility] Oxygen saturation in 2022-02-06 21:30:00 99 /min [facility] by [facility] Systolic blood 2021-11-03 20:53:00 110 mm[Hg] Univer [facility]ity of pressure [facility] Diastolic blood 2021-11-03 20:53:00 68 mm[Hg] Unive rsity of pressure [facility] Heart rate 2021-11-03 20:53:00 68 /min [facility] Body temperature 2021-11-03 20:53:00 36.56 Renu [facility] Body height 2021-11-03 20:53:00 182.9 cm [facility] Body weight 2021-11-03 20:53:00 70.308 kg [facility] BMI 2021-11-03 20:53:00 21.02 kg/m2 [facility] Oxygen saturation in 2021-11-03 20:53:00 99 /min [facility] Arterial blood by [facility] P[facility] Systolic blood 2021-10-27 21:12:00 120 mm[Hg] Univer [facility]ity of pressure [facility] Diastolic blood 2021-10-27 21:12:00 70 mm[Hg] Unive rsity of pressure [facility] Heart rate 2021-10-27 21:12:00 66 /min [facility] Body height 2021-10-27 20:29:00 182.9 cm [facility] Body weight 2021-10-27 20:29:00 70.308 kg [facility] BMI 2021-10-27 20:29:00 21.02 kg/m2 [facility] Systolic blood 2021-10-27 14:20:00 108 mm[Hg] Univer [facility]ity of pressure [facility] Diastolic blood 2021-10-27 14:20:00 92 mm[Hg] Unive rsity of pressure [facility] Heart rate 2021-10-27 14:20:00 50 /min [facility] Body temperature 2021-10-27 14:20:00 36.11 Renu [facility] Respiratory rate 2021-10-27 14:20:00 18 /min [facility] Body height 2021-10-27 14:20:00 182.9 cm [facility] Body weight 2021-10-27 14:20:00 70.308 kg [facility] BMI 2021-10-27 14:20:00 21.02 kg/m2 [facility] Oxygen saturation in 2021-10-27 14:20:00 100 /min [facility] blood by [facility] Systolic blood 2021-10-18 16:05:00 133 mm[Hg] Univer [facility]ity of pressure [facility] Diastolic blood 2021-10-18 16:05:00 65 mm[Hg] Unive rsity of pressure [facility] Heart rate 2021-10-18 16:05:00 70 /min [facility] Body temperature 2021-10-18 16:05:00 36.72 Renu [facility] Respiratory rate 2021-10-18 16:05:00 16 /min [facility] Body height 2021-10-18 16:05:00 182.9 cm [facility] Body weight 2021-10-18 16:05:00 72.576 kg [facility] BMI 2021-10-18 16:05:00 21.70 kg/m2 [facility] Oxygen saturation in 2021-10-18 16:05:00 98 /min [facility] by [facility] Systolic blood 2021-08-27 18:10:00 101 mm[Hg] Univer [facility]ity of pressure [facility] Diastolic blood 2021-08-27 18:10:00 63 mm[Hg] Unive rsity of pressure [facility] Heart rate 2021-08-27 18:10:00 61 /min [facility] Body temperature 2021-08-27 18:10:00 36.67 Renu [facility] Respiratory rate 2021-08-27 18:10:00 16 /min [facility] Body height 2021-08-27 18:10:00 182.9 cm [facility] Body weight 2021-08-27 18:10:00 70.308 kg [facility] BMI 2021-08-27 18:10:00 21.02 kg/m2 [facility] Oxygen saturation in 2021-08-27 18:10:00 100 /min [facility] by [facility] Systolic blood 2021-08-14 17:54:00 117 mm[Hg] Univer [facility]ity of pressure [facility] Diastolic blood 2021-08-14 17:54:00 74 mm[Hg] Unive rsity of pressure [facility] Heart rate 2021-08-14 17:54:00 71 /min [facility] Body temperature 2021-08-14 17:54:00 [facility]39 [facility] 2021-08-14 17:54:00 182.9 cm [facility] Body weight 2021-08-14 17:54:00 71.079 kg [facility] BMI 2021-08-14 17:54:00 21.25 kg/m2 [facility] Oxygen saturation in 2021-08-14 17:54:00 99 /min [facility] Arterial blood by [facility] Pulse oxim[facility] Heart Rate 2022-07-24 17:04:49 [facility] Systolic (mm Hg) 2022-07-24 17:04:40 [facility] Diastolic (mm Hg) 2022-07-24 17:04:40 [facility] Heart Rate 2022-07-24 17:04:40 [facility] Temperature Oral (F) 2022-07-24 17:04:15 97.6 F [facility] Temperature Oral (F) 2022-07-24 09:00:00 97.9 F [facility] Heart Rate 2022-07-24 09:00:00 [facility] Systolic (mm Hg) 2022-07-24 09:00:00 [facility] Diastolic (mm Hg) 2022-07-24 09:00:00 [facility] Systolic (mm Hg) 2022-07-24 08:16:00 [facility] [place] Diastolic (mm Hg) 2022-07-24 08:16:00 [facility] Temperature Oral (F) 2022-07-24 08:16:00 98.5 F [facility] Temperature Oral (F) 2022-07-23 04:32:24 98.1 F [facility] Respitory Rate 2022-07-22 21:19:00 [facility] Respitory Rate 2022-07-22 16:24:00 [facility] [place] Respitory Rate 2022-07-22 12:59:00 [facility] [place] Heart Rate 2022-07-20 10:20:11 [facility] Temperature Oral (F) 2022-07-20 10:20:04 98 F [facility] Systolic (mm Hg) 2022-07-20 10:19:11 [facility] Diastolic (mm Hg) 2022-07-20 10:19:11 [facility] [place] Heart Rate 2022-07-20 10:19:11 [facility] Heart Rate 2022-07-20 04:25:10 [facility] Temperature Oral (F) 2022-07-20 04:25:00 98.3 F [facility] Systolic (mm Hg) 2022-07-20 04:22:19 [facility] Diastolic (mm Hg) 2022-07-20 04:22:19 [facility] [place] Systolic (mm Hg) 2022-07-20 00:57:06 [facility] [place] Diastolic (mm Hg) 2022-07-20 00:57:06 [facility] [place] Temperature Oral (F) 2022-07-19 09:00:00 98.4 F [facility] Respitory Rate 2022-07-19 09:00:00 [facility] Respitory Rate 2022-07-19 05:00:00 [facility] Respitory Rate 2022-07-19 01:00:00 [facility] [place] Height 2022-07-16 13:00:00 182.88 cm [facility] Weight 2022-07-16 13:00:00 [facility] BMI Calculated 2022-07-16 13:00:00 [facility] Height 2022-07-16 02:20:00 182.88 cm [facility] Weight 2022-07-16 02:20:00 [facility] BMI Calculated 2022-07-16 02:20:00 [facility] [place] Procedures Procedure Date / Time Performing Clinician Source Performed AMMONIA, PLASMA 2022-07-14 12:25:00 Lilliam [facility] CBC WITH DIFF 2022-07-14 12:24:00 Wes Dipesh [facility] PHOSPHORUS 2022-07-14 10:00:00 Wes Dipesh [facility] MAGNESIUM 2022-07-14 10:00:00 Wes [facility] C-REACTIVE PROTEIN 2022-07-14 10:00:00 Wes Dipesh [facility] BASIC METABOLIC PANEL (NA, 2022-07-14 10:00:00 Dipesh Harvey [facility] K, CL, CO2, GLUCOSE, BUN, Medica l Branch CREATININE, CA) SYPHILIS IGG/IGM 2022-07-14 09:58:00 [facility]am [facility] MAGNESIUM 2022-07-13 09:15:00 [place] [facility] VITAMIN B12, LEVEL 2022-07-13 09:15:00 Wes Dipesh [facility] FOLATE 2022-07-13 09:15:00 Wes [facility] HEPATIC FUNCTION PANEL 2022-07-13 09:15:00 Dipesh Harvey [facility] ([id number]) (ALB,T.PRO,[facility] T,BU/BC,ALT,AST,ALK PHOS) BASIC METABOLIC PANEL (NA, 2022-07-13 09:15:00 [place] [facility] K, CL, CO2, GLUCOSE, BUN, Medica l Branch CREATININE, CA) SEDIMENTATION RATE 2022-07-13 09:15:00 Wes Dipesh [facility] CBC WITH DIFF 2022-07-13 09:15:00 [place] [facility] HOMOCYSTEINE 2022-07-13 09:15:00 Lilliam [facility] TROPONIN I 2022-07-12 23:04:00 Anastacio Michael [facility] ACTIVATED PARTIAL THRMPLAS 2022-07-12 23:04:[address] [facility] HB ECG ROUTINE & RHYTHM 2022-07-12 17:47:15 [place] [facility] TRANSTHORACIC ECHO (TTE) 2022-07-12 17:29:00 Shira Vyas [facility] CT HEAD WO CONTRAST 2022-07-12 16:36:28 [place] [facility] URINE DRUG (IMMUNOASSAY) - 2022-07-12 15:33:00 [place] [facility] COMPREHENSIVE DRUG SCREEN Medica l Branch TROPONIN I 2022-07-12 15:31:00 [place] [facility] POCT GLUCOSE (AUTOMATED) 2022-07-12 13:45:00 MarjorieMicheline [facility]anchezd[facility]el [facility] MAGNESIUM 2022-07-12 09:02:00 Vyas, [facility] TROPONIN I 2022-07-12 09:02:00 Vyas, [facility] BASIC METABOLIC PANEL (NA, 2022-07-12 09:02:00 Vyas, [facility] K, CL, CO2, GLUCOSE, BUN, Medica l [place] CREATININE, CA) CBC WITH DIFF 2022-07-12 09:02:00 Vyas, [facility] ACTIVATED PARTIAL THRMPLAS 2022-07-12 09:02:00 Vyas, [facility] TROPONIN I 2022-07-12 02:38:00 Vyas, [facility] PROTHROMBIN TIME / INR 2022-07-12 02:38:00 Vyas, [facility] ACTIVATED PARTIAL THRMPLAS 2022-07-12 02:38:00 Vyas, [facility] TROPONIN I 2022-07-11 22:52:00 Dino Baker [facility] THYROID STIMULATING HORMONE 2022-07-11 22:52:00 [facility], [facility] LIPASE 2022-07-11 19:34:00 Dino Baker [facility] TROPONIN I 2022-07-11 19:34:00 Dino Baker [facility] COMP. METABOLIC PANEL 2022-07-11 19:34:00 Dino Baker [facility] ([id number]) [facility] CBC WITH DIFF 2022-07-11 19:34:00 Dino Baker [facility] GLYCOSYLATED HEMOGLOBIN 2022-07-11 19:34:00 Vyas, [facility] (A1C) [facility] EKG-12 LEAD 2022-07-11 18:42:59 Dino Baker [facility] CONSENT/REFUSAL FOR 2022-07-11 18:31:35 Doctor Unassigned, [facility] DIAGNOSIS AND TREATMENT [place] [facility] [place] XR CHEST 2 VW 2022-07-11 16:53:39 Dino Baker [facility] CONSENT/REFUSAL FOR 2022-07-11 15:30:17 Doctor Unassigned, [facility] DIAGNOSIS AND TREATMENT [place] [facility] POCT URINALYSIS 2022-07-10 00:00:00 [facility] ASSIGNMENT OF BENEFITS 2022-06-04 17:03:28 Doctor Unassigned, [facility] [place] POCT GLUCOSE (AUTOMATED) 2022-05-02 13:23:00 Michele Meraz [facility] POCT GLUCOSE (AUTOMATED) 2022-05-02 13:23:00 Michele Meraz [facility] MAGNESIUM 2022-05-02 09:46:00 Carlos Alvaradoabella [facility] BASIC METABOLIC PANEL (NA, 2022-05-02 09:46:00 Otilia Alvarado [facility] K, CL, CO2, GLUCOSE, BUN, Medica l Branch CREATININE, CA) CBC WITH DIFF 2022-05-02 09:46:00 Kathleen Alvarado [facility] MAGNESIUM 2022-05-02 09:46:00 Kathleen Alvarado [facility] BASIC METABOLIC PANEL (NA, 2022-05-02 09:46:00 Otilia Alvarado [facility] K, CL, CO2, GLUCOSE, BUN, Medica l Branch CREATININE, CA) CBC WITH DIFF 2022-05-02 09:46:00 Kathleen Alvarado [facility] XR CHEST 1 VW 2022-05-01 22:10:00 Kathleen Alvarado [facility] ELECTROPHYSIOLOGY PROCEDURE 2022-05-01 17:50:27 Sewani, Michele [facility] ELECTROPHYSIOLOGY PROCEDURE 2022-05-01 17:50:27 Michele Meraz [facility] ELECTROPHYSIOLOGY PROCEDURE 2022-05-01 17:50:27 Michele Meraz [facility] ELECTROPHYSIOLOGY PROCEDURE 2022-05-01 17:50:27 Michele Meraz [facility] INSURANCE CORRESPONDENCE 2022-03-04 06:01:00 Doctor Unassigned, [facility] [place] EXTERNAL PROVIDER RECORDS 2022-01-14 06:01:00 Doctor Unassigned, [facility] [place] [facility] [place] EXTERNAL PROVIDER - ADC 2021-12-29 06:01:00 Doctor UnassignedEra [facility] CARDIOLOGY [place] [facility] [place] REFERRAL- REQUEST/RESPONSE 2021-11-17 05:01:00 Doctor Unassigned , [facility] Name [facility] [place] CBC WITH DIFF 2021-11-03 21:42:00 Shira [place] o [facility] Encounters Start End Encounter Admission Attending Care Care Encounter Source Date/Time Date/Time Type Type Clinicians Facility Department ID 2022-07-23 Outpatient [facility] [id number] [place] 00:58:24 [id number] [facility] 2022-03-16 Outpatient [facility] [id number] [place] 07:57:43 [id number] [facility] 2022-09-25 2022-09-25 Outpatient SHIRA GONZALEZ [facility] [id number] Univers 11:20:00 11:20:00 SHIRA BRANCH prudencio [facility] 2022-07-17 2022-07-24 Inpatient [facility] [id number] Memoria 16:33:00 18:55:[address] 2022-07-17 2022-07-24 Inpatient U DHAMOTHARAN [facility]BL MED [id number] MHBL 11:33:00 13:55:00 , JUNIOR 2022-07-17 2022-07-24 Outpatient Dhamotharan [facility] [id number] 11:33:00 13:55:00 , [address] 2022-07-17 2022-07-24 Outpatient Dhamotharan [facility]PL [id number] 11:33:00 13:55:00 , Junior [address] 2022-07-17 2022-07-17 Outpatient Pretty, MHPL PL [id number] 11:33:00 11:33:00 Adrien 58 2022-07-16 2022-07-16 Outpatient R ROSE MARIEJERRY [facility] [id number] Univers 08:40:00 08:40:00 MICHELE ity of [facility] 2022-07-16 2022-07-16 [facility] 1.2.230.700 [id number] Univers 00:00:00 00:00:00 [facility] 350.1.13.10 ity of [place] 4.2.7.2.686 Anthony as GUIDO?BLEA [id number] [address] MEDICAL OFFICE [facility] 2022-07-15 2022-07-15 Transition BrittZULAY deanMode 1.2.840.114 [id number] Univers 00:00:00 00:00:00 of Care Sarai LINARES 350.1.13.10 i [place] [id number] [facility] [address] 2022-07-11 2022-07-14 Hospital Dino Baker 1.2.8 40.114 [id number] Univers 13:38:00 17:03:00 Encounter Logan Fernandez 350.1. 13.10 ity of [facility] 4.2.7.2.686 Anthony as [id number] [facility] [address] [place] 2022-07-14 2022-07-14 [facility] 1.2.522.496 [id number] Univers 00:00:00 00:00:00 [facility] 350.1.13.10 ity of [facility] 4.2.7.2.686 Anthony as GUIDO?BLEA [id number] [address] OFFICE [facility] 2022-07-14 2022-07-14 [facility] 1.2.810.735 [id number] Univers 00:00:00 00:00:00 Michele [place] 350.1.13.10 i ty of [place] [id number] Me dical NAL 059 [facility] 2022-07-13 2022-07-13 Telephone [facility] 1.2.436.950 [id number] Univers 00:00:00 00:00:00 [facility] 350.1.13.10 ity of [place] 4.2.7.2.686 Anthony as GUIDO?BLEA [id number] Nv dical [place] [address] [place] MEDICAL OFFICE [facility] 2022-07-11 2022-07-11 Emergency X MORRICAL, [facility] ERT [id number] Univers 10:39:00 13:14:00 DINO ity [facility] 2022-07-11 2022-07-11 Emergency Morrical, TRAUMA 1.2.840.114 [id number] Univers 10:39:00 13:14:00 Dino O CENTER 350.1.13.10 [place] [id number] [address] 2022-07-11 2022-07-11 Emergency X MORRICAL, [facility] ERT [id number] Univers 10:39:00 13:14:00 [facility] 2022-07-10 2022-07-10 Grain I 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 Lab, Drew - Cornelius [facility] 1.2.840.1 14 [id number] Univers 09:30:00 09:45:00 Visit [facility] 350.1.13.10 ity of [place] 4.2.7.2.686 Anthony as GUIDO?BLEA [id number] Nv dicramiro HENRIQUEZ 353 [facility] OFFICE [facility] 2022-07-10 2022-07-10 Outpatient R SARINA [facility] [id number] Univers 08:20:00 09:12:03 [facility] 2022-07-10 2022-07-10 Office [facility] 1.2.840.114 [id number] Univers 08:20:00 09:12:03 Visit [facility] 350.1.13.10 ity of [place] 4.2.7.2.686 Anthony as GUIDO?BLEA [id number] [address] OFFICE [facility] 2022-07-09 2022-07-09 Refill [facility] 1.2.840.114 [id number] Univers 00:00:00 00:00:00 Shira HEALTH 350.1.13.10 ity of [facility] 4.2.7.2.686 Anthony as GUIDO?BLEA [id number] [address] OFFICE [facility] 2022-07-04 2022-07-04 Telephone [facility] 1.2.914.385 [id number] Univers 00:00:00 00:00:00 Michele [place] 350.1.13.10 i ty of [facility] 4.2.7.2.[place] E[place] [id number] [facility] 059 [facility] 2022-06-28 2022-06-28 Refill [facility] 1.2.840.114 [id number] Univers 00:00:00 00:00:00 [facility] 350.1.13.10 ity of [place] 4.2.7.2.686 Anthony as GUIDO?BLEA [id number] [address] OFFICE [facility] 2022-06-25 2022-06-25 Outpatient R SHIRA BRANCH [facility] [id number] Univers 14:20:00 15:24:09 SHIRA BRANCH [facility] 2022-06-25 2022-06-25 Office [facility] 1.2.840.114 [id number] Univers 14:20:00 15:24:09 Visit [facility] 350.1.13.10 ity of [place] 4.2.7.2.686 Anthony as GUIDO?BLEA [id number] [address] OFFICE [facility] 2022-06-19 2022-06-19 Telephone [facility] 1.2.972.290 [id number] Univers 00:00:00 00:00:00 Michele HEALTH 350.1.13.10 it y of [facility] 4.2.7.2.686 Anthony as GUIDO?BLEA [id number] [place] 768402 [facility] OFFICE [facility] 2022-06-042022-06-04 Outpatient R KT [facility] [id number] Univers 12:00:00 23:59:00 MICHELE ity of [facility] 2022-06-04 2022-06-04 Orders Doctor CARMEL 1.2.840.114 [id number] Univers 00:00:00 00:00:00 Only Unassigned, NICHOLAS 350.1.13.10 ity of [place] [facility] 4.2.7.2.686 Anthony as [id number] [facility] [address] [place] 2022-05-28 2022-05-28 Telephone Rose [facility] 1.2.892.621 [id number] Univers 00:00:00 00:00:00 Michele PATRIA 350.1.13.10 i ty of [place] 4.2.7.2.[place] [id number] [place] 367209 [facility] 2022-05-25 2022-05-25 Telephone Du, UNIVERSIT 1.2.840.114 [id number] Univers 00:00:00 00:00:00 [facility] 350.1.13.10 ity of [place] [id number] [facility] [address] [place] 2022-05-03 2022-05-03 Telephone CARMEL Gaona 1.2.141.055 [id number] Univers 00:00:00 00:00:00 Dylan ORTIZY 350.1.13.10 it y of [facility] 4.2.7.2.686 Anthony as [id number] [facility] 008 [place] 2022-05-03 2022-05-03 Telephone Du, [facility] 1.2.840.114 10 [id number] Univers 00:00:00 00:00:00 [facility] 350.1.13.10 ity of [place] [id number] [facility] [address] [place] 2022-05-03 2022-05-03 Telephone [facility] 1.2.800.681 [id number] Univers 00:00:00 00:00:00 Michele [place] 350.1.13.10 i ty of [place] 4.2.7.2.[place] [facility] [id number] Nv dical NAL [address] BUILDING 2022-05-01 2022-05-02 Outpatient R [facility] [id number] Univers 09:33:00 17:27:00 ISABELLA ity of [facility] 2022-05-01 2022-05-02 Hospital Michele Meraz 1.2.840.114 [id number] Univers 09:33:00 17:27:00 Encounter Isabella Velázquez Krzysztof PETERSON 350.1.1 3.10 ity of [facility] 4.2.7.2.686 Anthony as [id number] [facility] [address] [place] 2022-05-01 2022-05-01 Surgery ROSALIND Meraz 1.2.840.114 [id number] Univers 09:30:00 13:00:00 MicheleFormerly [facility] 350.1.13.10 it y of [facility] 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, Adc Lab [facility] 1.2.840.114 [id number] Univers 09:30:00 09:45:00 Visit Burton Garcia 350.1.13.10 [facility] 4.2.[place] [id number] [facility] 353 [place] 2022-04-14 2022-04-14 Outpatient R RADHA [facility] [id number] Univers 09:30:00 09:30:00 BURTON dangelo [facility] 2022-04-14 2022-04-14 Sergei Branch [facility] 1.2.840.114 [id number] Univers 00:00:00 00:00:00 [facility] 350.1.13.10 ity of [place] 4.2.7.2.686 Anthony as GUIDO?BLEA [id number] Nv dical KNEY [address] [place] MEDICAL OFFICE BUILDING 2022-04-08 2022-04-08 Telephone [facility] 1.2.213.080 [id number] Univers 00:00:00 00:00:00 Shira HEALTH 350.1.13.10 ity of [place] 4.2.7.2.686 Anthony as GUIDO?BLEA [id number] [address] OFFICE [facility] 2022-04-01 2022-04-01 Telephone ROSALIND Meraz 1.2.557.893 [id number] Univers 00:00:00 00:00:00 Michele NICHOLAS 350.1.13.10 it y of [facility] 4.2.7.2.686 Anthony as [id number] [facility] [address] [place] 2022-03-27 2022-03-27 Outpatient [facility] [id number] Univers 14:00:00 15:19:35 SHIRA ity [facility] 2022-03-27 2022-03-27 Office [facility] 1.2.840.114 [id number] Univers 14:00:00 15:19:35 Visit [facility] 350.1.13.10 ity of [place] 4.2.7.2.686 Anthony as GUIDO?BLEA [id number] [address] OFFICE [facility] 2022-03-26 2022-03-26 Refill [facility] 1.2.840.114 [id number] Univers 00:00:00 00:00:00 Shira HEALTH 350.1.13.10 ity of [facility] 4.2.7.2.686 Anthony as GUIDO?BLEA [id number] [address] OFFICE [facility] 2022-03-23 2022-03-23 Milo [facility] 1.2.975.851 [id number] Univers 00:00:00 00:00:00 Michele [place] 350.1.13.10 i ty of [facility] 4.2.7.2.[place] [id number] [facility] 059 [facility] 2022-03-19 2022-03-19 Outpatient R KT [facility] [id number] Univers 09:20:00 09:20:00 MICHELE ity of [facility] 2022-03-17 2022-03-17 Telephone [facility] 1.2.998.614 [id number] Univers 00:00:00 00:00:00 Shira HEALTH 350.1.13.10 ity of [place] 4.2.7.2.686 Anthony as GUIDO?BLEA [id number] [address] OFFICE [facility] 2022-03-17 2022-03-17 [facility] 1.2.840.114 [id number] Univers 00:00:00 00:00:00 Shira HEALTH 350.1.13.10 ity of [place] 4.2.7.2.686 Anthony as GUIDO?BLEA [id number] [address] OFFICE [facility] 2022-03-16 2022-03-16 [facility] 1.2.840.114 [id number] Univers 00:00:00 00:00:00 Shira HEALTH 350.1.13.10 ity of [place] 4.2.7.2.686 Anthony as GUIDO?BLEA [id number] [address] OFFICE [facility] 2022-03-12 2022-03-12 Outpatient R KT [facility] [id number] Univers 12:00:00 12:44:36 MICHELE ity of [facility] 2022-03-12 2022-03-12 Office [facility] 1.2.840.114 [id number] Univers 12:00:00 12:44:36 Visit Michele [place] 350.1.13.10 i ty of [facility] 4.2.7.2.[place] [id number] [facility] 059 [facility] 2022-03-10 2022-03-10 Telephone [facility] 1.2.201.812 [id number] Univers 00:00:00 00:00:00 Anil HEALTH 350.1.13.10 it y of [place] 4.2.7.2.686 Anthony as GUIDO?BLEA [id number] [facility]44 [facility] 2022-03-09 2022-03-09 Outpatient R DIRK [facility] [id number] Univers 16:00:00 16:00:00 ANIL ity of [facility] 2022-03-09 2022-03-09 Telephone [facility] 1.2.126.664 [id number] Univers 00:00:00 00:00:00 Anil HEALTH 350.1.13.10 it y of [facility] 4.2.7.2.686 Anthony as GUIDO?BLEA [id number] Nv michele HENRIQUEZ [address] [place] [address] 2022-03-09 2022-03-09 Telephone [facility] 1.2.761.340 [id number] Univers 00:00:00 00:00:00 Qiangnanette [facility] 350.1.13.10 ity of [place] 4.2.7.2.[place] [id number] Nv nandoramiro NOAH 059 [facility] 2022-03-06 2022-03-06 Outpatient [facility] [id number] Univers 15:47:00 23:59:00 DESTINY dangelo o f [facility] 2022-03-04 2022-03-04 Refill [facility] 1.2.840.114 [id number] Univers 00:00:00 00:00:00 Anil HEALTH 350.1.13.10 it y of [facility] 4.2.7.2.686 Anthony as GUIDO?BLEA [id number] Nv michele HENRIQUEZ [address] [place] [address] 2022-03-04 2022-03-04 Orders Doctor BURT 1.2.840.114 [id number] Univers 00:00:00 00:00:00 Only Unassigned, NICHOLAS 350.1.13.10 [facility]y [facility] 4.2.7.2.686 Anthony as [id number] [address] 2022-03-02 2022-03-02 Outpatient [facility] [id number] Univers 09:20:00 09:58:44 DESTINY dangelo o f [facility] 2022-03-02 2022-03-02 Office [facility] 1.2.840.114 [id number] Univers 09:20:00 09:58:44 Visit Destiny [facility] 350.1.13.10 ity of [place] 4.2.7.2.[place] [id number] Nv dicca NAL 059 [facility] 2022-02-07 2022-02-07 Nurse Citlaly David 1.2.840.114 [id number] Univers 00:00:00 00:00:00 Triage NICHOLAS 350.1.13.10 it y of [facility] 4.2.7.2.686 Anthony as [id number] [address] 2022-02-06 2022-02-06 Outpatient R DIRK [facility] [id number] Univers 15:00:00 16:09:26 ANIL ity [facility] 2022-02-06 2022-02-06 Office [facility] 1.2.840.114 [id number] Univers 15:00:00 16:09:26 Visit [facility] 350.1.13.10 it y of [place] 4.2.7.2.686 Anthony as GUIDO?BLEA [id number] [address] OFFICE [facility] 2022-02-05 2022-02-05 Telephone [facility] [id number] [id number] Univers 00:00:00 00:00:00 [facility] 350.1.13.10 ity of [place] 4[place]2.7.2.686 [place] PROF[place] [id number] [address] 2022-01-28 2022-01-28 [facility] 1.2.906.422 [id number] Univers 00:00:00 00:00:00 Shira HEALTH 350.1.13.10 ity of [place] 4.2.7.2.686 Anthony as GUIDO?BLEA [id number] [address] OFFICE [facility] 2022-01-22 2022-01-22 [facility] 1.2.840.114 [id number] Univers 00:00:00 00:00:00 Wondiful A HEALTH 350.1.13.10 ity of [place] 4.2.7.2.686 Anthony as GUIDO?BLEA [id number] [address] MEDICAL OFFICE [facility] 2022-01-14 2022-01-14 Outpatient Sean SANDY [facility] [id number] Univers 10:00:00 10:00:00 DESTINY ity o f [facility] 2022-01-14 2022-01-14 Orders Doctor CARMEL 1.2.840.114 [id number] Univers 00:00:00 00:00:00 Only Unassigned, NICHOLAS 350.1.13.10 ity of [place] [facility] 4.2.7.2.686 Anthony as [id number] [address] 2022-01-11 2022-01-11 [facility] 1.2.840.114 [id number] Univers 00:00:00 00:00:00 Wondiful A HEALTH 350.1.13.10 ity [facility] 4.2.7.2.686 Anthony as GUIDO?BLEA [id number] [address] MEDICAL OFFICE [facility] 2021-12-29 2021-12-29 Orders Doctor CARMEL 1.2.840.114 [id number] Univers 00:00:00 00:00:00 Only Unassigned, NICHOLAS 350.1.13.10 ity of [place] [facility] 4.2.7.2.686 Anthony as [id number] [address] 2021-12-15 2021-12-16 Outpt Diag nullFlavo [facility] [id number] Memoria 17:34:00 05:59:00 Services r Outpatient 00 l Cyn - Benigno n Renae 2021-12-15 2021-12-15 Outpatient Serrano, 2.16.840. 2.16.840.1. 4 [id number] 11:34:00 23:59:00 Rufus [id number]. [id number] Félix 3.615.101 5.101 2021-11-17 2021-11-17 Orders Doctor CARMEL 1.2.840.114 [id number] Univers 00:00:00 00:00:00 Only Unassigned, NICHOLAS 350.1.13.10 [facility] 4.2.7.2.686 Anthony as [id number] [address] 2021-11-12 2021-11-12 Telephone [facility] 1.2.281.171 [id number] Univers 00:00:00 00:00:00 Shira HEALTH 350.1.13.10 ity of [place] 4.2.7.2.686 Anthony as GUIDO?BLEA [id number] [address] MEDICAL OFFICE [facility] 2021-11-11 2021-11-11 Telephone [facility] 1.2.606.766 [id number] [id number] Univers 00:00:00 00:00:00 [place] [facility] 350.1.13.10 ity of [place] 4.2.7.2.686 Anthony as GUIDO?BLEA [id number] [address] OFFICE [facility] 2021-11-06 2021-11-06 [facility] 1.2.115.530 [id number] 0115 Univers 00:00:00 00:00:00 [facility] 350.1.13.10 it[facility] 4.2.7.2.686 Anthony as GUIDO?BLEA [id number] [address] 2021-11-03 2021-11-03 Outpatient R [facility] [id number] Univers 15:40:00 16:24:15 SHIRA ity [facility] 2021-11-03 2021-11-03 Office [facility] 1.2.840.114 [id number] Univers 15:40:00 16:24:15 Visit [facility] 350.1.13.10 ity of [place] 4.2.7.2.686 Anthony as GUIDO?BLEA [id number] [address] 2021-11-03 2021-11-03 [employer]rain [employer], Ang - Db [facility] 1.2.840.1 14 [id number] Univers 16:00:00 16:15:00 Visit [facility] 350.1.13.10 ity of [place] 4.2.7.2.686 Anthony as GUIDO?BLEA [id number] Me michele HENRIQUEZ 353 [facility] OFFICE [facility] 2021-10-27 2021-10-27 Grain I [employer], Ang - Db [facility] 1.2.840.1 14 [id number] Univers 16:30:00 16:45:00 [facility] 350.1.13.10 [facility] 4.2.7.2.686 Anthony as GUIDO?BLEA [phone] Nv michele HENRIQUEZ 353 [facility] OFFICE [facility] 2021-10-27 2021-10-27 Office [facility] 1.2.840.114 [id number] Univers 15:20:00 16:26:33 Visit [facility] 350.1.13.10 ity of [facility] 4.2.7.2.686 Anthony as GUIDO?BLEA [phone] Nv michele HENRIQUEZ 044 [facility] OFFICE [facility] 2021-10-27 2021-10-27 Outpatient Sean BARBA [facility] [id number] Univers 09:20:00 09:36:44 CHELO [facility] 2021-10-27 2021-10-27 Urgent Chelo Barba [facility] 1.2.840.114 9 [id number] Univers 09:20:00 09:36:44 Care Ebrailm, [facility] HEALTH 350.1.13.10 ity of [facility] 4.2.7.2.686 Anthony as GUIDO?BLEA [id number] Nv michele HENRIQUEZ 370 [facility] OFFICE [facility] 2021-10-18 2021-10-18 Urgent Ebrajtm, Herberia [facility] 1.2.840.114 [id number] Univers 11:00:00 11:20:00 [place] HEALTH 350.1.13.10 ity of [facility] 4.2.7.2.686 Anthony as GUIDO?BLEA [id number] Nv michele HENRIQUEZ 370 [facility] OFFICE [facility] 2021-10-18 2021-10-18 Outpatient R FREYA [facility] [id number] Univers 11:00:00 11:00:00 [place] [facility] 2021-10-17 2021-10-17 Sergei Gates [facility] 1.2.840.114 [id number] Univers 00:00:00 00:00:00 Karmen HEALTH 350.1.13.10 it y of [place] 4.2.7.2.686 Anthony as GUIDO?BLEA [id number] [facility] [address] [place] MEDICAL OFFICE [facility] 2021-09-09 2021-09-09 Refill [facility] 1..840.114 [id number] 88 Univers 00:00:00 00:00:00 Zuri A HEALTH 350.1.13.10 i ty of [place] 4.2.7.2.686 Anthony as GUIDO?BLEA [id number] [facility] 044 [facility] OFFICE [facility] 2021-09-02 2021-09-02 Refill [facility] 1..840.114 [id number] [id number] Univers 00:00:00 00:00:00 Wondiful A HEALTH 350.1.13.10 ity of [place] 4.2.7.2.686 Anthony as GUIDO?BLEA [id number] [address] OFFICE [facility] 2021-08-29 2021-08-29 [facility] [id number] Univers 13:00:00 13:00:00 ZURI ity of [facility] 2021-08-27 2021-08-27 Urgent Kody Karmen [facility] ..840.11 4 [id number] Univers 13:00:00 13:20:00 Care Jude Desir HEALTH 350.1.13.10 ity of [place] 4.2.7.2.686 Anthony as GUIDO?BLEA [id number] [address] MEDICAL OFFICE [facility] 2021-08-27 2021-08-27 Outpatient R VANDANA [facility] [id number] Univers 13:00:00 13:00:00 JUDE dangelo o f [facility] 2021-08-26 2021-08-26 Telephone [facility] 1..243.749 [id number] Univers 00:00:00 00:00:00 Zuri A HEALTH 350.1.13.10 i ty of [place] 4.2.7.2.686 Anthony as GUIDO?BLEA [id number] [address] OFFICE [facility] 2021-08-26 2021-08-26 Refill [facility] 1.2.840.114 [id number] Univers 00:00:00 00:00:00 Zuri A HEALTH 350.1.13.10 i ty of [place] 4.2.7.2.686 Anthony as GUIDO?BLEA [id number] [address] OFFICE [facility] 2021-08-22 2021-08-22 Outpatient [facility] [id number] Univers 16:00:00 16:00:00 [facility] 2021-08-22 2021-08-22 [facility] [id number] Univers 15:00:00 15:00:00 [facility] 2021-08-22 2021-08-22 [facility] 1..840.114 [id number] Univers 00:00:00 00:00:00 [facility] 350.1.13.10 ity of [place] 4.2.7.2.686 Anthony as GUIDO?BLEA [id number] [address] 2021-08-14 2021-08-14 [facility] [id number] Univers 13:00:00 15:12:18 [facility] 2021-08-14 2021-08-14 Office [facility] 1.2.840.114 [id number] Univers 13:00:00 15:12:18 Visit Zuri A HEALTH 350.1.13.10 i ty of [place] 4.2.7.2.686 Anthony as GUIDO?BLEA [id number] [address] OFFICE [facility] 2021-08-13 2021-08-13 Telephone [facility] 1.2.840.114 [id number] [id number] Univers 00:00:00 00:00:00 [facility] HEALTH 350.1.13.10 it y of [place] 4.2.7.2.686 Anthony as GUIDO?BLEA [id number] Nv michele HENRIQUEZ 0[address] [place] MEDICAL OFFICE [facility] 2021-08-12 2021-08-12 Telephone [facility] 1.2.840.114 [id number] Univers 00:00:00 00:00:00 [facility] 350.1.13.10 it y of [place] 4.2.7.2.686 Anthony as GUIDO?BLEA [phone] Nv michele HENRIQUEZ [address] [place] [address] OFFICE [facility] 2021-08-07 2021-08-07 Telephone [facility] 1.2.840.114 [id number] Univers 00:00:00 00:00:00 [facility] 350.1.13.10 it y of [place] 4.2.7.2.686 Anthony as GUIDO?BLEA [phone] Nv michele HENRIQUEZ [address] [place] [address] OFFICE [facility] 2021-08-01 2021-08-01 Telephone [facility] 1.2.840.114 [id number] Univers 00:00:00 00:00:00 [facility] 350.1.13.10 it y of [place] 4.2.7.2.686 Anthony as GUIDO?BLEA [phone] Nv michele HENRIQUEZ [address] [place] [address] OFFICE [facility] 2021-07-04 2021-07-04 [employer], [facility] 1.2.840.1 14 [id number] Univers 16:45:00 17:00:[address] [facility] 350.1.13 .10 ity of [place] 4.2.7.2.686 Anthony as GUIDO?BLEA [id number] Nv michele HENRIQUEZ 353 [facility] OFFICE [facility] 2021-07-04 2021-07-04 Out[facility] [id number] Univers 16:45:00 16:45:00 NIK prudencio [facility] 2021-07-04 2021-07-04 Office [facility] 1.2.840.114 [id number] Univers 16:15:00 16:30:00 Visit [facility] 350.1.13.10 it y of [place] 4.2.7.2.686 Anthony as GUIDO?BLEA [id number] [address] OFFICE [facility] 2021-07-04 2021-07-04 Outpatient R SAM [facility] [id number] Univers 16:15:00 16:15:00 NIK dangelo [facility] 2021-06-23 2021-06-23 Telephone [facility] 1.2.899.542 [id number] [id number] Univers 00:00:00 00:00:00 Zuri A HEALTH 350.1.13.10 i ty of [place] 4.2.7.2.686 Anthony as GUIDO?BLEA [id number] [address] 2021-06-18 2021-06-18 Telephone [facility] 1.2.091.671 [id number] 3365 Univers 00:00:00 00:00:00 Zuri A HEALTH 350.1.13.10 i ty of [place] 4.2.7.2.686 Anthony as GUIDO?BLEA [id number] [address] 2021-05-28 2021-05-28 Telephone [facility] 1.2.687.952 [id number] 1468 Univers 00:00:00 00:00:00 Qiasincere [place] 350.1.13.10 ity of [facility] 4.2.7.2.[place] [id number] [address] 2021-05-27 2021-05-27 Telephone [facility] 1.2.409.368 0110 [id number] Univers 00:00:00 00:00:00 Qiangjun [place] 350.1.13.10 ity of [facility] 4.2.7.2.[place] [phone] [address] 2021-05-20 2021-05-20 Orders Doctor CARMEL 1.2.840.114 [id number] Univers 00:00:00 00:00:00 Only Unassigned, NICHOLAS 350.1.13.10 ity of [place] [facility] 4.2.7.2.686 Anthony as [id number] [address] 2021-05-19 2021-05-19 Refill [facility] 1.2.840.114 [id number] Univers 00:00:00 00:00:00 Zuri A HEALTH 350.1.13.10 i ty of [place] 4.2.7.2.686 Anthony as GUIDO?BLEA [id number] [address] OFFICE [facility] 2021-05-19 2021-05-19 Telephone [facility] 1.2.630.310 [id number] 5758 Univers 00:00:00 00:00:00 Qiangjun [place] 350.1.13.10 ity of [place] 4.2.7.2.686 [place] [id number] [facility] 059 [facility] 2021-05-16 2021-05-16 Refill [facility] 1.2.840.114 [id number] Univers 00:00:00 00:00:00 Zuri A HEALTH 350.1.13.10 i ty of [facility] 4.2.7.2.686 Anthony as GUIDO?BLEA [id number] [address] OFFICE [facility] 2021-05-08 2021-05-08 Refill [facility] 1.2.840.114 [id number] Univers 00:00:00 00:00:00 Zuri A HEALTH 350.1.13.10 i ty of [place] 4.2.7.2.686 Anthony as GUIDO?BLEA [id number] [address] OFFICE [facility] 2021-04-30 2021-04-30 [facility] [id number] Univers 14:00:00 14:46:58 ZURI ity of [facility] 2021-04-30 2021-04-30 Office [facility] 1.2.840.114 [id number] Univers 14:00:00 14:46:58 Visit Zuri A HEALTH 350.1.13.10 i ty of [place] 4.2.7.2.686 Anthony as GUIDO?BLEA [id number] [address] OFFICE [facility] 2021-04-30 2021-04-30 Telephone [facility] 1.2.840.114 [id number] [id number] Univers 00:00:00 00:00:00 Wondiful A HEALTH 350.1.13.10 ity of [place] 4.2.7.2.686 Anthony as GUIDO?BLEA [id number] [address] OFFICE [facility] 2021-03-13 2021-03-13 Telephone [facility] 1.2.840.114 [id number] [id number] Univers 00:00:00 00:00:00 Wondiful A HEALTH 350.1.13.10 ity of [place] 4.2.7.2.686 Anthony as GUIDO?BLEA [id number] [address] OFFICE [facility] 2021-03-04 2021-03-04 Outpatient R LEILA [facility] [id number] Univers 14:00:00 14:58:03 WONDIFUL ity o f [facility] 2021-03-04 2021-03-04 Office Mariela Edwards [facility] ..840.114 9 [id number] Univers 14:00:00 14:58:03 Visit Moreno Dee A HEALTH 350.1.13.1 0 ity of [place] 4.2.7.2.686 Anthony as GUIDO?BLEA [id number] [address] 2021-03-04 2021-03-04 Outpatient R LEILA [facility] [id number] Univers 14:00:00 14:58:03 WONDIFUL ity o f [facility] 2021-03-04 2021-03-04 Outpatient R LEILA [facility] [id number] Univers 14:00:00 14:58:03 WONDIFUL ity o f [facility] 2021-02-26 2021-02-26 Telephone [facility] 1.2.840.114 [id number] Univers 00:00:00 00:00:00 Wondiful A HEALTH 350.1.13.10 ity of [place] 4.2.7.2.686 Anthony as GUIDO?BLEA [id number] [address] OFFICE [facility] 2021-02-26 2021-02-26 Telephone [facility] 1.2.840.114 [id number] [id number] Univers 00:00:00 00:00:00 Wondiful A HEALTH 350.1.13.10 ity of [facility] 4.2.7.2.686 Anthony as GUIDO?BLEA [id number] Nv michele HENRIQUEZ 044 [facility] 2021-02-18 2021-02-18 Telephone [facility] 1.2.950.240 [id number] Univers 00:00:00 00:00:00 Qiananette [place] 350.1.13.10 ity of [facility] 4.2.7.2.[place] [id number] [address] 2021-02-13 2021-02-13 Telephone [facility] 1.2.038.179 [id number] 8298 Univers 00:00:00 00:00:00 Qiasincere [place] 350.1.13.10 ity of [facility] 4.2.7.2.[place] [id number] [address] 2021-02-13 2021-02-13 Orders Doctor CARMEL 1.2.840.114 [id number] Univers 00:00:00 00:00:00 Only Unassigned, NICHOLAS 350.1.13.10 ity of [place] [facility] 4.2.7.2.686 Anthony as [id number] [address] 2021-02-10 2021-02-10 Telephone [facility] 1.2.630.006 3303 7478 Univers 00:00:00 00:00:00 Bayronnanette [place] 350.1.13.10 ity of [facility] 4.2.7.2.[place] [id number] Nv dic[address] 2021-02-10 2021-02-10 Telephone [facility] 1.2.684.488 4364 7434 Univers 00:00:00 00:00:00 Qiajaskarannanette [place] 350.1.13.10 ity of [facility] 4.2.7.2.686 [place] [id number] [address] 2021-02-04 2021-02-04 Telephone [facility] 1.2.984.751 [id number] 3259 Univers 00:00:00 00:00:00 Destiny [place] 350.1.13.10 ity of [place] 4.2.7.2.686 [place] [id number] Nv dical NAL 059 [facility] 2021-02-03 2021-02-03 Outpatient R DU, [facility] [id number] Univers 13:48:03 23:59:00 QIASINCERE ity o [facility] 2021-02-03 2021-02-03 Outpatient R DU, [facility] [id number] Univers 13:48:03 23:59:00 DESTINY rossiy o [facility] 2021-02-03 2021-02-03 Outpatient R DU, [facility] [id number] Univers 13:48:03 23:59:00 DESTINY rossiy o [facility] 2021-02-03 2021-02-03 [facility] 1.2.840.114 [id number] Univers 13:48:03 23:59:00 Encounter Destiny ESPAÑA 350.1.13.10 ity of [place] 4.2.7.2.686 [place] [phone] Nv dical NAL 843 [facility] 2021-01-13 2021-01-13 Outpatient R DU, [facility] [id number] Univers 15:20:00 16:08:31 DESTINY rossiy o [facility] 2021-01-13 2021-01-13 Outpatient R DU, [facility] [id number] Univers 15:20:00 16:08:31 QIASINCERE ity o [facility] 2021-01-13 2021-01-13 Outpatient R DU, [facility] [id number] Univers 15:20:00 16:08:31 DESTINY ity o [facility] 2021-01-13 2021-01-13 Office [facility] 1.2.840.114 [id number] Univers 15:20:00 16:08:31 Visit Destiny [place] 350.1.13.10 ity of [place] 4.2.7.2.686 [place] [phone] Nv dical NAL 059 [facility] 2021-01-13 2021-01-13 Office [facility] 1.2.840.114 [id number] Univers 15:10:05 16:08:31 Visit Destiny ESPAÑ[place] 350.1.13.10 ity of [facility] 4.2.7.2.[place] [id number] [address] 2021-01-07 2021-01-07 Telephone [facility] 1.2.500.849 [id number] [id number] Univers 00:00:00 00:00:00 Destiny ESPAÑ[place] 350.1.13.10 ity of [facility] 4.2.7.2.[place] [id number] [place] 367209 [facility] 2021-01-06 2021-01-06 Orders Doctor CARMEL 1.2.840.114 [id number] Univers 00:00:00 00:00:00 Only Unassigned, NICHOLAS 350.1.13.10 ity of [place] [facility] 4.2.7.2.686 Anthony as [id number] [address] 2020-12-30 2020-12-30 Refill [facility] 1.2.840.114 [id number] 063 Univers 00:00:00 00:00:00 Wondiful A HEALTH 350.1.13.10 ity of [place] 4.2.7.2.686 Anthony as GUIDO?BLEA [id number] Nv nandoramiro MARTINEZ 044 [facility] OFFICE [facility] 2020-12-24 2020-12-24 [employer], Ang - Db [facility] 1.2.840.1 14 [id number] Univers 15:16:07 15:31:07 Visit Moreno Dee A HEALTH 350.1.13.1 0 ity of [place] 4.2.7.2.686 Anthony as GUIDO?BLEA [id number] [facility] MARTINEZ 353 [facility] OFFICE [facility] 2020-12-24 2020-12-24 Outpatient R LEILA [facility] [id number] Univers 15:30:00 15:30:00 WONDIFUL ity o f [facility] 2020-12-24 2020-12-24 Outpatient R LEILA [facility] [id number] [facility] 15:30:00 15:25:12 WONDIFUL ity o f [facility] 2020-12-24 2020-12-24 Telephone [facility] 1.2.840.114 [id number] Univers 00:00:00 00:00:00 Wondiful A HEALTH 350.1.13.10 ity of [place] 4.2.7.2.686 Anthony as GUIDO?BLEA [id number] [address] MEDICAL OFFICE [facility] 2020-12-24 2020-12-24 Telephone [facility] 1.2.840.114 [id number] Univers 00:00:00 00:00:00 Wondiful A HEALTH 350.1.13.10 ity of [place] 4.2.7.2.686 Anthony as GUIDO?BLEA [id number] [address] MEDICAL OFFICE [facility] 2020-12-19 2020-12-19 Telephone [facility] 1.2.840.114 [id number] Univers 00:00:00 00:00:00 Wondiful A HEALTH 350.1.13.10 ity of [place] 4.2.7.2.686 Anthony as GUIDO?BLEA [id number] [address] OFFICE [facility] 2020-12-19 2020-12-19 Telephone [facility] 1.2.840.114 [id number] Univers 00:00:00 00:00:00 Wondiful A HEALTH 350.1.13.10 ity of [place] 4.2.7.2.686 Anthony as GUIDO?BLEA [id number] [address] MEDICAL OFFICE [facility] 2020-12-12 2020-12-12 Orders Doctor BURT 1.2.840.114 [id number] Univers 00:00:00 00:00:00 Only Unassigned, NICHOLAS 350.1.13.10 ity of [place] [facility] 4.2.7.2.686 Anthony as [id number] [address] 2020-12-10 2020-12-10 Telephone [facility] 1.2.840.114 [id number] [id number] Univers 00:00:00 00:00:00 Wondiful A HEALTH 350.1.13.10 ity of [place] 4.2.7.2.686 Anthony as GUIDO?BLEA [id number] [facility] [address] MEDICAL OFFICE [facility] 2020 2020 Grain [employer], Ang - Db [facility] 1.2.840.1 14 [id number] Univers 16:05:47 16:20:47 Visit Pat Dee HEALTH 350.1.13.10 ity of [place] 4.2.7.2.686 Anthony as GUIDO?BLEA [id number] [facility] 353 [facility] OFFICE [facility] 2020 2020 Outpatient R LEILA [facility] [id number] Univers 16:15:00 16:15:00 PAT ity of [facility] 2020 2020 Outpatient R LEILA [facility] [id number] Univers 15:30:00 16:03:54 WONDIFUL ity o [facility] 2020 2020 Outpatient R LEILA [facility] [id number] Univers 15:30:00 16:03:54 WONDIFUL ity o f [facility] 2020 2020 Office [facility] 1.2.840.114 [id number] Univers 15:27:26 16:03:54 Visit Wondiful A HEALTH 350.1.13.10 ity of [place] 4.2.7.2.686 Anthony as GUIDO?BLEA [id number] [facility] [address] OFFICE [facility] 2020-11-26 2020-11-26 Refill [facility] 1.2.840.114 [id number] Univers 00:00:00 00:00:00 Wondiful A Health 350.1.13.10 ity of [place] 4.2.7.2.686 Anthony as Professio [phone] [facility]al [address] [place] [address] One 2020-11-25 2020-11-25 Refill Leila [facility] 1.2.840.114 [id number] Univers 00:00:00 00:00:00 Wondiful A Health 350.1.13.10 ity of [place] 4.2.7.2.686 Anthony as Professio [phone] [address] One 2020-11-14 2020-11-14 Telephone Leila [facility] 1.2.840.114 [id number] Univers 00:00:00 00:00:00 Wondiful A Health 350.1.13.10 ity of [place] 4.2.7.2.686 Anthony as Guido?Blea [id number] Nv michele henriquez [address] [place] [address] 2020-10-09 2020-10-09 Office Le, Phi-Maria Luisa [facility] 1.2.840.114 [id number] Univers 14:00:00 16:00:00 Visit [facility] AT 350.1.13.10 [place]2.7.2.[place] [id number] [address] 2020-10-09 2020-10-09 Office Le, Phi-Maria Luisa [facility] 1.2.840.114 [id number] Univers 13:55:59 15:55:59 Visit Patti [facility] AT 350.1.13.10 ity of [place]2.7.2.[place] [id number] [address] 2020-10-09 2020-10-09 Outpatient R LE, PHI-MARIA LUISA [facility] 096 [id number] Univers 14:00:00 14:00:00 ity [facility] 2020-10-09 2020-10-09 Outpatient R LE, PHI-MARIA LUISA [facility] [id number] Univers 14:00:00 14:00:00 ity [facility] 2020-10-09 2020-10-09 Outpatient R LE, PHI-MARIA LUISA [facility] [id number] Univers 14:00:00 14:00:00 ity [facility] 2020-10-09 2020-10-09 Outpatient R LE, PHI-MARIA LUISA [facility] [id number] Univers 14:00:00 14:00:00 ity of [facility] 2020-10-09 2020-10-09 Letter Doctor CARMEL 1.2.840.114 [id number] Univers 00:00:00 00:00:00 (Out) Unassigned, NICHOLAS 350.1.13.10 [facility] [id number] Anthony as [id number] [address] 2020-10-07 2020-10-07 [facility] [id number] Univers 00:00:00 00:00:00 [facility] [id number] ity of [place] [id number] Anthony as Guido?Blea [phone] [address] [facility] 2020-10-02 2020-10-02 Telephone MandiAmanda [facility] [id number] Univers 00:00:00 00:00:00 [facility] [id number] [id number] [id number] [address] 2020-09-13 2020-09-13 Outpatient Sean DEE [facility] [id number] Univers 15:45:00 15:45:00 WONDIFUL ity o f [facility] 2020-08-12 2020-08-12 Outpatient Sean DEE [facility] [id number] Univers 10:45:00 10:45:00 WONDIFUL ity o f [facility] 2020-04-11 2020-04-11 Outpatient Sean DEE [facility] [id number] Univers 14:30:00 14:30:00 WONDIFUL ity o f [facility] 2020-04-04 2020-04-04 Outpatient Sean DEE [facility] [id number] Univers 00:00:00 00:00:00 WONDIFUL ity o f [facility] 2020-03-25 2020-03-25 Outpatient Sean DEE [facility] [id number] Univers 17:00:00 17:00:00 WONDIFUL ity o f [facility] 2020-02-23 2020-02-23 Outpatient R [facility] [id number] Univers 14:20:00 14:20:00 prudencio [facility] 2020-02-19 2020-02-19 [facility] [id number] Univers 14:30:00 14:30:00 WONDIFUL ity o f [facility] 2020-01-29 2020-01-29 [facility] [id number] Univers 15:00:00 15:00:00 WONDIFUL ity o f [facility] 2019-11-13 2019-11-13 [facility] [id number] 00:00:00 00:00:00 Chepe MUNIZ [id number] [facility] [id number] [place] [id number] 2019-11-03 2019-11-03 [facility] [id number] Univers 11:00:00 11:00:[address] [facility] [place] [place] 2019-11-03 2019-11-03 [facility] [id number] Univers 09:45:00 09:45:00 ERIC [facility] [facility] 2019-10-17 2019-10-17 Outpatient R SHERLY [facility] [id number] [facility] 15:00:00 15:00:00 CHEPE [facility] 2019-09-27 2019-09-27 Outpatient R SANJUANASPEEDY [facility] [id number] [facility] 09:45:49 23:59:00 CHEPE [facility] 2019-09-27 2019-09-27 Outpatient R SHERLY [facility] [id number] [facility] 08:00:00 08:00:00 CHEPE [facility] 2019-06-27 2019-06-27 [facility] [id number] [facility] 13:30:00 13:30:00 [facility] 2019-06-13 2019-06-13 [facility] [id number] [facility] 16:00:00 16:00:00 [facility] 2019-05-23 2019-05-23 Outpatient R GIANNI, [facility] [id number] [facility] 13:00:00 13:00:00 [facility] 2019-04-17 2019-04-17 Outpatient R [facility] [id number] [facility] 16:00:00 16:00:00 [facility] 2019-04-05 2019-04-05 [facility] [id number] Univers 15:00:00 15:00:00 DESTINY enidy o f [facility] Results Test Description Test Time Test Comments Results Result Comments Source IMMUNOLOGY 2022-07-22 21:25:00 Test Item Value Reference Range Interpretation Comme nts Coronavirus (COVID-19) DIVYA (test code = Not Detected 8(07/22/22 4:25 PM) Coronavirus (COVID-19) DIVYA) [id number] 21:25:00 Test Item Value Reference Range Interpretation Comments Coronavirus (COVID-19) Not Detected DIVYA (test code = 16(07/22/22 4:25 PM) Coronavirus (COVID-19) DIVYA) [facility]2023-06-12 10:20:00 Test Item Value Reference Range Interpretation Comments Glucose Lvl (test code = Glucose Lvl) 108 70-99 [facility]2023-06-12 10:20:00 Test Item Value Reference Range Interpretation Comments BUN (test code = BUN) 21 7-22 [facility]2023-06-12 10:20:00 Test Item Value Reference Range Interpretation Comments Creatinine Lvl (test code = Creatinine 1.03 0.50-1.40 Lvl) [facility]2023-06-12 10:20:00 Test Item Value Reference Range Interpretation Comments Sodium Lvl (test code = Sodium Lvl) 139 135-145 [facility]2023-06-12 10:20:00 Test Item Value Reference Range Interpretation Comments Potassium Lvl (test code = Potassium 4.0 3.5-5.1 Lvl) [id number] 10:20:00 Test Item Value Reference Range Interpretation Comments Chloride Lvl (test code = Chloride Lvl) 106 95-109 [facility]2023-06-12 10:20:00 Test Item Value Reference Range Interpretation Comments CO2 (test code = CO2) - [facility]2023-06-12 10:20:00 Test Item Value Reference Range Interpretation Comments Calcium Lvl (test code = Calcium Lvl) 9.5 8.5-10.5 [facility]2023-06-12 10:20:00 Test Item Value Reference Range Interpretation Comments AGAP (test code = AGAP) 8.0 10.0-20.0 [facility]2023-06-12 10:20:00 Test Item Value Reference Range Interpretation Comments eGFR (test code = eGFR) 78 [facility]2023-06-12 10:20:00 Test Item Value Reference Range Interpretation Comments Magnesium Lvl (test code = Magnesium 2.0 1.8-2.4 Lvl) [facility]IehiibjZHLVLDLHS5100-72-52 10:20:00 Test Item Value Reference Range Interpretation Comments Glucose Lvl (test code = Glucose Lvl) 108 70-99 [facility] RegionalUyolmsfNUBACEVTS0825-16-97 10:20:00 Test Item Value Reference Range Interpretation Comments BUN (test code = BUN) 7-22 [place] [address]-06-12 10:20:00 Test Item Value Reference Range Interpretation Comments Creatinine Lvl (test code = Creatinine 1.03 0.50-1.40 Lvl) [facility] RegionalChrrqykACAEGMGPS4662-14-44 10:20:00 Test Item Value Reference Range Interpretation Comments Sodium Lvl (test code = Sodium Lvl) 139 135-145 [place] 059233-06-12 10:20:00 Test Item Value Reference Range Interpretation Comments Potassium Lvl (test code = Potassium 4.0 3.5-5.1 Lvl) [place] 059233-06-12 10:20:00 Test Item Value Reference Range Interpretation Comments Chloride Lvl (test code = Chloride Lvl) 106 95-109 [place] [address]-06-12 10:20:00 Test Item Value Reference Range Interpretation Comments CO2 (test code = CO2) -32 [place] 059233-06-12 10:20:00 Test Item Value Reference Range Interpretation Comments Calcium Lvl (test code = Calcium Lvl) 9.5 8.5-10.5 [facility] RegionalBerfdxkLCLICJMQU4121-87-82 10:20:00 Test Item Value Reference Range Interpretation Comments AGAP (test code = AGAP) 8.0 10.0-20.0 [facility] RegionalUrzjjmnDFKTXECFL4705-58-51 10:20:00 Test Item Value Reference Range Interpretation Comments eGFR (test code = eGFR) 78 [facility] RegionalLfbxkgtEOKYNXVBX3626-43-76 10:20:00 Test Item Value Reference Range Interpretation Comments Magnesium Lvl (test code = Magnesium 2.0 1.8-2.4 Lvl) [facility] AND [id number] 20:18:00 Test Item Value Reference Range Interpretation Comments UA Bili (test code = Negative *NA*(07/19/22 UA Bili) 3:18 PM) [facility] AND [id number] 20:18:00 Test Item Value Reference Range Interpretation Comments UA Blood (test code = Negative (07/19/22 3:18 UA Blood) PM) [facility] AND [id number] 20:18:00 Test Item Value Reference Range Interpretation Comments UA Nitrite (test code Negative (07/19/22 3:18 = UA Nitrite) PM) [facility] AND [id number] 20:18:00 Test Item Value Reference Range Interpretation Comments UA Leuk Est (test Negative (07/19/22 3:18 code = UA Leuk Est) PM) [facility] AND [id number] 20:18:00 Test Item Value Reference Range Interpretation Comments UA Ascorbic Acid (test Negative 7*NA*(07/19/22 code = UA Ascorbic 3:18 PM) Acid) [facility] AND [id number] 20:18:00 Test Item Value Reference Range Interpretation Comments UA Sq Epi (test code = UA Sq Occasional /LPF Epi) [facility] AND [id number] 20:18:00 Test Item Value Reference Range Interpretation Comments UA WBC (test code = 1 See_Comment [Automa elva message] The UA WBC) system which ge nerated this result transmit elva reference range : <=5. The reference range was not used to interpr et this result as janusz l/abnormal. [facility] AND [id number] 20:18:00 Test Item Value Reference Range Interpretation Comments UA RBC (test code = 1 See_Comment [Automa elva message] The UA RBC) system which ge nerated this result transmit elva reference range : <=2. The reference range was not used to interpr et this result as janusz l/abnormal. [facility] AND [id number] 20:18:00 Test Item Value Reference Range Interpretation Comments UA Mucus (test code = UA Mucus) Few /LPF [facility] AND [id number] 20:18:00 Test Item Value Reference Range Interpretation Comments UA Urobilinogen (test code = UA <=1.0 mg/dL 0.1-1.0 Urobilinogen) [facility] AND [id number] 20:18:00 Test Item Value Reference Range Interpretation Comments UA Color (test code = Yellow *NA*(07/19/22 UA Color) 3:18 PM) [facility] AND [id number] 20:18:00 Test Item Value Reference Range Interpretation Comments UA Turbidity (test code = Clear (07/19/22 3:18 UA Turbidity) PM) [facility] AND [id number] 20:18:00 Test Item Value Reference Range Interpretation Comments UA Spec Grav (test code = UA Spec 1.026 1 Grav) [facility] AND [id number] 20:18:00 Test Item Value Reference Range Interpretation Comments UA pH (test code = UA pH) 5.0 1 5.0-8.0 [facility] AND [id number] 20:18:00 Test Item Value Reference Range Interpretation Comments UA Protein (test code = UA Negative mg/dL Protein) [facility] AND [id number] 20:18:00 Test Item Value Reference Range Interpretation Comments UA Glucose (test code = UA Negative mg/dL Glucose) [facility] AND [id number] 20:18:00 Test Item Value Reference Range Interpretation Comments UA Ketones (test code = UA Ketones) 20 mg/dL [facility] AND [id number] 20:18:00 Test Item Value Reference Range Interpretation Comments UA Bili (test code = Negative *NA*(07/19/22 UA Bili) 3:18 PM) [facility] [id number] 20:18:00 Test Item Value Reference Range Interpretation Comments UA Blood (test code = Negative (07/19/22 3:18 UA Blood) PM) [facility] [id number] 20:18:00 Test Item Value Reference Range Interpretation Comments UA Nitrite (test code Negative (07/19/22 3:18 = UA Nitrite) PM) [facility] [id number] 20:18:00 Test Item Value Reference Range Interpretation Comments UA Leuk Est (test Negative (07/19/22 3:18 code = UA Leuk Est) PM) [facility] [id number] 20:18:00 Test Item Value Reference Range Interpretation Comments UA Ascorbic Acid (test Negative code = UA Ascorbic 15*NA*(07/19/22 3:18 Acid) PM) [facility] [id number] 20:18:00 Test Item Value Reference Range Interpretation Comments UA Sq Epi (test code = UA Sq Occasional /LPF Epi) [facility] AND [id number] 20:18:00 Test Item Value Reference Range Interpretation Comments UA WBC (test code = 1 See_Comment [Automa elva message] The UA WBC) system which ge nerated this result transmit elva reference range : <=5. The reference range was not used to interpr et this result as janusz l/abnormal. [facility] [id number] 20:18:00 Test Item Value Reference Range Interpretation Comments UA RBC (test code = 1 See_Comment [Automa elva message] The UA RBC) system which ge nerated this result transmit elva reference range : <=2. The reference range was not used to interpr et this result as janusz l/abnormal. [facility] [id number] 20:18:00 Test Item Value Reference Range Interpretation Comments UA Mucus (test code = UA Mucus) Few /LPF [facility] [id number] 20:18:00 Test Item Value Reference Range Interpretation Comments UA Urobilinogen (test code = UA <=1.0 mg/dL 0.1-1.0 Urobilinogen) [facility] AND [id number] 20:18:00 Test Item Value Reference Range Interpretation Comments UA Color (test code = Yellow *NA*(07/19/22 UA Color) 3:18 PM) [facility] AND [id number] 20:18:00 Test Item Value Reference Range Interpretation Comments UA Turbidity (test code = Clear (07/19/22 3:18 UA Turbidity) PM) [facility] AND [id number] 20:18:00 Test Item Value Reference Range Interpretation Comments UA Spec Grav (test code = UA Spec 1.026 1 Grav) [facility] AND [id number] 20:18:00 Test Item Value Reference Range Interpretation Comments UA pH (test code = UA pH) 5.0 1 5.0-8.0 [facility] AND [id number] 20:18:00 Test Item Value Reference Range Interpretation Comments UA Protein (test code = UA Negative mg/dL Protein) [facility] AND [id number] 20:18:00 Test Item Value Reference Range Interpretation Comments UA Glucose (test code = UA Negative mg/dL Glucose) [facility] AND [id number] 20:18:00 Test Item Value Reference Range Interpretation Comments UA Ketones (test code = UA Ketones) 20 mg/dL [place] 709583-06-10 09:32:00 Test Item Value Reference Range Interpretation Comments Magnesium Lvl (test code = Magnesium 1.9 1.8-2.4 Lvl) [place] 709583-06-10 09:32:00 Test Item Value Reference Range Interpretation Comments Glucose Lvl (test code = Glucose Lvl) 102 70-99 [place] 709583-06-10 09:32:00 Test Item Value Reference Range Interpretation Comments BUN (test code = BUN) 24 7-22 [facility]2023-06-10 09:32:00 Test Item Value Reference Range Interpretation Comments Creatinine Lvl (test code = Creatinine 0.94 0.50-1.40 Lvl) [facility]2023-06-10 09:32:00 Test Item Value Reference Range Interpretation Comments Sodium Lvl (test code = Sodium Lvl) 137 135-145 [place] 709583-06-10 09:32:00 Test Item Value Reference Range Interpretation Comments Potassium Lvl (test code = Potassium 3.8 3.5-5.1 Lvl) [place] 709583-06-10 09:32:00 Test Item Value Reference Range Interpretation Comments Chloride Lvl (test code = Chloride Lvl) 107 95-109 [place] [address]-06-10 09:32:00 Test Item Value Reference Range Interpretation Comments CO2 (test code = CO2) 26 24-32 [place] [address]-06-10 09:32:00 Test Item Value Reference Range Interpretation Comments Calcium Lvl (test code = Calcium Lvl) 9.0 8.5-10.5 [place] [address]-06-10 09:32:00 Test Item Value Reference Range Interpretation Comments AGAP (test code = AGAP) 7.8 10.0-20.0 [place] [address]-06-10 09:32:00 Test Item Value Reference Range Interpretation Comments eGFR (test code = eGFR) 87 [place] [address]-06-10 09:32:00 Test Item Value Reference Range Interpretation Comments WBC (test code = WBC) 5.9 3.7-10.4 [place] [address]-06-10 09:32:00 Test Item Value Reference Range Interpretation Comments RBC (test code = RBC) 4.62 4.70-6.10 [place] [address]-06-10 09:32:00 Test Item Value Reference Range Interpretation Comments Hgb (test code = Hgb) 14.1 14.0-18.0 [place] [address]-06-10 09:32:00 Test Item Value Reference Range Interpretation Comments Hct (test code = Hct) 42.4 42.0-54.0 [place] [address]-06-10 09:32:00 Test Item Value Reference Range Interpretation Comments MCV (test code = MCV) 91.7 80.0-94.0 [place] [address]-06-10 09:32:00 Test Item Value Reference Range Interpretation Comments MCH (test code = MCH) 30.5 pg 27.0-31.0 [place] [address]-06-10 09:32:00 Test Item Value Reference Range Interpretation Comments MCHC (test code = MCHC) 33.2 32.0-36.0 [place] [address]-06-10 09:32:00 Test Item Value Reference Range Interpretation Comments RDW (test code = RDW) 13.5 11.5-14.5 [place] [address]-06-10 09:32:00 Test Item Value Reference Range Interpretation Comments Platelet (test code = Platelet) 111 133-450 [place] [address]-06-10 09:32:00 Test Item Value Reference Range Interpretation Comments MPV (test code = MPV) 9.3 7.4-10.4 [place] [address]-06-10 09:32:00 Test Item Value Reference Range Interpretation Comments PT (test code = PT) 14.9 s 12.0-14.7 [place] [address]-06-10 09:32:00 Test Item Value Reference Range Interpretation Comments INR (test code = INR) 1.17 1 0.87-1.13 [place] [address]-06-10 09:32:00 Test Item Value Reference Range Interpretation Comments PTT (test code = PTT) 36.6 s 22.9-35.8 [place] [address]-06-10 09:32:00 Test Item Value Reference Range Interpretation Comments Segs (test code = Segs) 81.7 45.0-75.0 [place] [address]-06-10 09:32:00 Test Item Value Reference Range Interpretation Comments Lymphocytes (test code = Lymphocytes) 8.3 20.0-40.0 [place] [address]-06-10 09:32:00 Test Item Value Reference Range Interpretation Comments Monocytes (test code = Monocytes) 8.8 2.0-12.0 [place] [address]-06-10 09:32:00 Test Item Value Reference Range Interpretation Comments Eosinophils (test code = 1.0 See_Comment [A utomated message] The Eosinophils) system which ge nerated this result tra nsmitted reference range : <=4.0. The reference r shen was not used to int erpret this result as normal/abnormal . [place] [address]-06-10 09:32:00 Test Item Value Reference Range Interpretation Comments Basophils (test code = 0.2 See_Comment [Aut omated message] The Basophils) system which ge nerated this result tra nsmitted reference range : <=1.0. The reference r shen was not used to int erpret this result as normal/abnormal . [facility] LancasterIfnvotpGHVUSXRAZH3212-61-74 09:32:00 Test Item Value Reference Range Interpretation Comments Neutrophils # (test code = Neutrophils 4.8 1.5-8.1 #) [facility] LancasterSombgkwKFESTYMTPM9361-10-85 09:32:00 Test Item Value Reference Range Interpretation Comments Lymphocytes # (test code = Lymphocytes 0.5 1.0-5.5 #) [facility] LancasterHsvuiyxYNYWLWVDJB9934-62-09 09:32:00 Test Item Value Reference Range Interpretation Comments Monocytes # (test code 0.5 See_Comment [Aut omated message] The = Monocytes #) system which generated this result tra nsmitted reference range : <=0.8. The reference r shen was not used to int erpret this result as normal/abnormal . [facility] LancasterIbteunaHONRURMXXH1187-45-19 09:32:00 Test Item Value Reference Range Interpretation Comments Eosinophils # (test code 0.1 See_Comment [A utomated message] The = Eosinophils #) system whic h generated this result tra nsmitted reference range : <=0.5. The reference r shen was not used to int erpret this result as normal/abnormal . [facility] LancasterHpcxzdpWGPOOJSGHG3998-95-32 09:32:00 Test Item Value Reference Range Interpretation Comments WBC (test code = WBC) 5.9 3.7-10.4 [facility] LancasterGvvrmemNNJKARAOWX9788-80-96 09:32:00 Test Item Value Reference Range Interpretation Comments RBC (test code = RBC) 4.62 4.70-6.10 [facility] LancasterCfwyfkqUGEIFKRWCD6941-91-93 09:32:00 Test Item Value Reference Range Interpretation Comments Hgb (test code = Hgb) 14.1 14.0-18.0 [facility] LancasterQvtdejqMQKVJDKROL2735-86-44 09:32:00 Test Item Value Reference Range Interpretation Comments Hct (test code = Hct) 42.4 42.0-54.0 [place] 601533-06-10 09:32:00 Test Item Value Reference Range Interpretation Comments MCV (test code = MCV) 91.7 80.0-94.0 [facility] LancasterNrfcrrmYONVLHFLKW5750-70-13 09:32:00 Test Item Value Reference Range Interpretation Comments MCH (test code = MCH) 30.5 pg 27.0-31.0 [place] [address]-06-10 09:32:00 Test Item Value Reference Range Interpretation Comments MCHC (test code = MCHC) 33.2 32.0-36.0 [place] [address]-06-10 09:32:00 Test Item Value Reference Range Interpretation Comments RDW (test code = RDW) 13.5 11.5-14.5 [place] [address]-06-10 09:32:00 Test Item Value Reference Range Interpretation Comments Platelet (test code = Platelet) 111 133-450 [place] 601533-06-10 09:32:00 Test Item Value Reference Range Interpretation Comments MPV (test code = MPV) 9.3 7.4-10.4 [place] [address]-06-10 09:32:00 Test Item Value Reference Range Interpretation Comments PT (test code = PT) 14.9 s 12.0-14.7 [place] [address]-06-10 09:32:00 Test Item Value Reference Range Interpretation Comments INR (test code = INR) 1.17 1 0.87-1.13 [place] [address]-06-10 09:32:00 Test Item Value Reference Range Interpretation Comments PTT (test code = PTT) 36.6 s 22.9-35.8 [place] [address]-06-10 09:32:00 Test Item Value Reference Range Interpretation Comments Segs (test code = Segs) 81.7 45.0-75.0 [place] [address]-06-10 09:32:00 Test Item Value Reference Range Interpretation Comments Lymphocytes (test code = Lymphocytes) 8.3 20.0-40.0 [place] [address]-06-10 09:32:00 Test Item Value Reference Range Interpretation Comments Monocytes (test code = Monocytes) 8.8 2.0-12.0 [place] [address]-06-10 09:32:00 Test Item Value Reference Range Interpretation Comments Eosinophils (test code = 1.0 See_Comment [A utomated message] The Eosinophils) system which ge nerated this result tra nsmitted reference range : <=4.0. The reference r shen was not used to int erpret this result as normal/abnormal . [place] [address]-06-10 09:32:00 Test Item Value Reference Range Interpretation Comments Basophils (test code = 0.2 See_Comment [Aut omated message] The Basophils) system which ge nerated this result tra nsmitted reference range : <=1.0. The reference r shen was not used to int erpret this result as normal/abnormal . [place] [address]-06-10 09:32:00 Test Item Value Reference Range Interpretation Comments Neutrophils # (test code = Neutrophils 4.8 1.5-8.1 #) [place] [address]-06-10 09:32:00 Test Item Value Reference Range Interpretation Comments Lymphocytes # (test code = Lymphocytes 0.5 1.0-5.5 #) [place] [address]-06-10 09:32:00 Test Item Value Reference Range Interpretation Comments Monocytes # (test code 0.5 See_Comment [Aut omated message] The = Monocytes #) system which generated this result tra nsmitted reference range : <=0.8. The reference r shen was not used to int erpret this result as normal/abnormal . [place] [address]-06-10 09:32:00 Test Item Value Reference Range Interpretation Comments Eosinophils # (test code 0.1 See_Comment [A utomated message] The = Eosinophils #) system whic h generated this result tra nsmitted reference range : <=0.5. The reference r shen was not used to int erpret this result as normal/abnormal . [place] 709583-06-09 10:17:00 Test Item Value Reference Range Interpretation Comments Magnesium Lvl (test code = Magnesium 1.8 1.8-2.4 Lvl) [place] 709583-06-09 10:17:00 Test Item Value Reference Range Interpretation Comments Glucose Lvl (test code = Glucose Lvl) 93 70-99 [place] [address]-06-09 10:17:00 Test Item Value Reference Range Interpretation Comments BUN (test code = BUN) 21 7-22 [place] [address]-06-09 10:17:00 Test Item Value Reference Range Interpretation Comments Creatinine Lvl (test code = Creatinine 0.99 0.50-1.40 Lvl) [place] [address]-06-09 10:17:00 Test Item Value Reference Range Interpretation Comments Sodium Lvl (test code = Sodium Lvl) 138 135-145 [place] 709583-06-09 10:17:00 Test Item Value Reference Range Interpretation Comments Potassium Lvl (test code = Potassium 3.8 3.5-5.1 Lvl) [place] 709583-06-09 10:17:00 Test Item Value Reference Range Interpretation Comments Chloride Lvl (test code = Chloride Lvl) 106 95-109 [place] 709583-06-09 10:17:00 Test Item Value Reference Range Interpretation Comments CO2 (test code = CO2) 24 24-32 [place] 709583-06-09 10:17:00 Test Item Value Reference Range Interpretation Comments Calcium Lvl (test code = Calcium Lvl) 9.1 8.5-10.5 [place] 709583-06-09 10:17:00 Test Item Value Reference Range Interpretation Comments AGAP (test code = AGAP) 11.8 10.0-20.0 [place] 709583-06-09 10:17:00 Test Item Value Reference Range Interpretation Comments eGFR (test code = eGFR) 82 [place] 601533-06-09 10:17:00 Test Item Value Reference Range Interpretation Comments PT (test code = PT) 14.5 s 12.0-14.7 [place] [address]-06-09 10:17:00 Test Item Value Reference Range Interpretation Comments INR (test code = INR) 1.13 1 0.87-1.13 [place] [address]-06-09 10:17:00 Test Item Value Reference Range Interpretation Comments PTT (test code = PTT) 43.2 s 22.9-35.8 [place] [address]-06-09 10:17:00 Test Item Value Reference Range Interpretation Comments WBC (test code = WBC) 4.8 3.7-10.4 [place] [address]-06-09 10:17:00 Test Item Value Reference Range Interpretation Comments RBC (test code = RBC) 4.68 4.70-6.10 [place] [address]-06-09 10:17:00 Test Item Value Reference Range Interpretation Comments Hgb (test code = Hgb) 14.1 14.0-18.0 [place] [address]-06-09 10:17:00 Test Item Value Reference Range Interpretation Comments Hct (test code = Hct) 42.0 42.0-54.0 [facility] LancasterCyxbxchVVNVMPELWJ0680-92-88 10:17:00 Test Item Value Reference Range Interpretation Comments MCV (test code = MCV) 89.9 80.0-94.0 [facility] LancasterVajlpepNYZHUMNWAG4649-10-78 10:17:00 Test Item Value Reference Range Interpretation Comments MCH (test code = MCH) 30.2 pg 27.0-31.0 [place] 601533-06-09 10:17:00 Test Item Value Reference Range Interpretation Comments MCHC (test code = MCHC) 33.6 32.0-36.0 [facility] LancasterSuyuzahXHIQZSQZTS8011-30-59 10:17:00 Test Item Value Reference Range Interpretation Comments RDW (test code = RDW) 13.7 11.5-14.5 [facility] LancasterLqwqwvhTOYGYIQBJC7688-69-47 10:17:00 Test Item Value Reference Range Interpretation Comments Platelet (test code = Platelet) 110 133-450 [facility] LancasterRwesuzyBIGHMDCVRI1993-45-06 10:17:00 Test Item Value Reference Range Interpretation Comments MPV (test code = MPV) 8.9 7.4-10.4 [place] 601533-06-09 10:17:00 Test Item Value Reference Range Interpretation Comments Segs (test code = Segs) 79.4 45.0-75.0 [place] 601533-06-09 10:17:00 Test Item Value Reference Range Interpretation Comments Lymphocytes (test code = Lymphocytes) 11.7 20.0-40.0 [place] [address]-06-09 10:17:00 Test Item Value Reference Range Interpretation Comments Monocytes (test code = Monocytes) 8.0 2.0-12.0 [place] [address]-06-09 10:17:00 Test Item Value Reference Range Interpretation Comments Eosinophils (test code = 0.6 See_Comment [A utomated message] The Eosinophils) system which ge nerated this result tra nsmitted reference range : <=4.0. The reference r shen was not used to int erpret this result as normal/abnormal . [facility]GzdaogcAIQWTDIZNO7475-66-55 10:17:00 Test Item Value Reference Range Interpretation Comments Basophils (test code = 0.3 See_Comment [Aut omated message] The Basophils) system which ge nerated this result tra nsmitted reference range : <=1.0. The reference r shen was not used to int erpret this result as normal/abnormal . [facility] LancasterSutpckyGYTACQKGPJ3585-79-50 10:17:00 Test Item Value Reference Range Interpretation Comments Neutrophils # (test code = Neutrophils 3.8 1.5-8.1 #) [facility] LancasterBbreqcvQYLYLXVLVO5326-45-70 10:17:00 Test Item Value Reference Range Interpretation Comments Lymphocytes # (test code = Lymphocytes 0.6 1.0-5.5 #) [facility] LancasterXvybzhwHJSOOCPGLI7973-15-97 10:17:00 Test Item Value Reference Range Interpretation Comments Monocytes # (test code 0.4 See_Comment [Aut omated message] The = Monocytes #) system which generated this result tra nsmitted reference range : <=0.8. The reference r shen was not used to int erpret this result as normal/abnormal . [place] 31364023-06-08 22:35:10 Test Item Value Reference Range Interpretation Comments RADRPT (test code PROCEDURE INFORMATION: = RADRPT) Exam: XR Chest Exam date and time: 07/16/2022 12:32 PM Age: 71 years old Clinical indication: /sob TECHNIQUE: Imaging protocol: Radiologic exam of the chest. Views: 1 view. COMPARISON: No relevant prior studies available. FINDINGS: Tubes, catheters and devices: Left chest pacemaker defibrillator device is demonstrated. Lungs: Questionable minimal central pulmonary venous congestion without pulmonary edema within the lungs. The peripheral lungs are otherwise clear. Pleural spaces: No pleural effusion. No pneumothorax. Heart/Mediastinum: Cardiac silhouette appears mildly enlarged. Vasculature: Mild atherosclerotic calcification demonstrated within the aorta. Bones/joints: Sternotomy wires, hardware is demonstrated. Diffusely severely decreased bone density. Limited sensitivity to detect acute abnormalities. Moderate to severe generalized bony degenerative changes. IMPRESSION: 1. Mild enlarged cardiac silhouette. 2. Questionable minimal pulmonary venous congestion. 3. Degenerative and postsurgical changes are demonstrated, as described above. Burton Pearl MD On 07/16/2022 17:34:11; [id number] [facility]2023-06-08 13:31:00 Test Item Value Reference Range Interpretation Comments HS Troponin I (test code = HS Troponin 955 I) [facility]stTaquyjwTIJFCGJJO7512-03-57 13:31:00 Test Item Value Reference Range Interpretation Comments HS Troponin I (test code = HS Troponin 955 I) [facility]stCARDIAC OWAVSVL7913-27-09 10:34:00 Test Item Value Reference Range Interpretation Comments BNP (test code = BNP) 177 [facility] TexasJzwmjwuDOODVKOOA8547-17-90 10:34:00 Test Item Value Reference Range Interpretation Comments BNP (test code = BNP) 177 [facility]IhtdwetAPZWZJZEB7035-44-28 10:34:00 Test Item Value Reference Range Interpretation Comments Trig (test code = Trig) 91 [facility] RegionalMivgggkGYDLQQNHY7944-56-22 10:34:00 Test Item Value Reference Range Interpretation Comments Chol (test code = Chol) 134 [facility] RegionalDtyrhinGNRHQBLZJ9309-30-96 10:34:00 Test Item Value Reference Range Interpretation Comments HDL (test code = HDL) 63 [facility] RegionalTpwgoqsKERVDLBBV8896-00-69 10:34:00 Test Item Value Reference Range Interpretation Comments Chol/HDL Ratio (test code = Chol/HDL 2.13 1 4.00-7.30 Ratio) [facility] RegionalSgheqzyIEQUBJCDH6969-21-79 10:34:00 Test Item Value Reference Range Interpretation Comments LDL (Calculated) (test code = LDL 53 (Calculated)) [facility] RegionalUiwftpfWBJNNWASE6294-99-48 10:34:00 Test Item Value Reference Range Interpretation Comments VLDL (test code = VLDL) 18 1 [facility] RegionalDozqtyiTRBBCNLHR2323-09-90 10:34:00 Test Item Value Reference Range Interpretation Comments Hgb A1C (test code = Hgb A1C) 5.3 [facility]stDfegphpGWXJHJEVNK7562-99-78 10:34:00 Test Item Value Reference Range Interpretation Comments WBC (test code = WBC) 4.0 3.7-10.4 [facility]BGHTOYLV76[facility] 10:34:00 Test Item Value Reference Range Interpretation Comments RBC (test code = RBC) 4.60 4.70-6.10 [facility] LancasterKfshobmZTBDWWLUEP8267-91-81 10:34:00 Test Item Value Reference Range Interpretation Comments Hgb (test code = Hgb) 14.3 14.0-18.0 [facility] LancasterLdobwiqSJEQYPAZYD9236-01-45 10:34:00 Test Item Value Reference Range Interpretation Comments Hct (test code = Hct) 42.1 42.0-54.0 [place] [address]-06-08 10:34:00 Test Item Value Reference Range Interpretation Comments MCV (test code = MCV) 91.6 80.0-94.0 [place] [address]-06-08 10:34:00 Test Item Value Reference Range Interpretation Comments MCH (test code = MCH) 31.0 pg 27.0-31.0 [place] [address]-06-08 10:34:00 Test Item Value Reference Range Interpretation Comments MCHC (test code = MCHC) 33.9 32.0-36.0 [place] 601533-06-08 10:34:00 Test Item Value Reference Range Interpretation Comments RDW (test code = RDW) 13.7 11.5-14.5 [place] [address]-06-08 10:34:00 Test Item Value Reference Range Interpretation Comments Platelet (test code = Platelet) 102 133-450 [facility] LancasterSibfaouOUKDWUFWKG1369-71-05 10:34:00 Test Item Value Reference Range Interpretation Comments MPV (test code = MPV) 9.0 7.4-10.4 [place] [address]-06-08 10:34:00 Test Item Value Reference Range Interpretation Comments PT (test code = PT) 14.3 s 12.0-14.7 [place] [address]-06-08 10:34:00 Test Item Value Reference Range Interpretation Comments INR (test code = INR) 1.11 1 0.87-1.13 [place] [address]-06-08 10:34:00 Test Item Value Reference Range Interpretation Comments PTT (test code = PTT) 37.2 s 22.9-35.8 [place] [address]-06-08 10:34:00 Test Item Value Reference Range Interpretation Comments Segs (test code = Segs) 73.8 45.0-75.0 [place] [address]-06-08 10:34:00 Test Item Value Reference Range Interpretation Comments Lymphocytes (test code = Lymphocytes) 16.0 20.0-40.0 [place] [address]-06-08 10:34:00 Test Item Value Reference Range Interpretation Comments Monocytes (test code = Monocytes) 8.7 2.0-12.0 [facility] LancasterSthjfxePHHWZMASLX6836-96-73 10:34:00 Test Item Value Reference Range Interpretation Comments Eosinophils (test code = 1.2 See_Comment [A utomated message] The Eosinophils) system which ge nerated this result tra nsmitted reference range : <=4.0. The reference r shen was not used to int erpret this result as normal/abnormal . [facility] LancasterVqksqlvQXCFAEHNDC8021-95-17 10:34:00 Test Item Value Reference Range Interpretation Comments Basophils (test code = 0.3 See_Comment [Aut omated message] The Basophils) system which ge nerated this result tra nsmitted reference range : <=1.0. The reference r shen was not used to int erpret this result as normal/abnormal . [facility] LancasterWgolcuyKHLQBMONHM2757-12-98 10:34:00 Test Item Value Reference Range Interpretation Comments Neutrophils # (test code = Neutrophils 2.9 1.5-8.1 #) [facility] LancasterHcpewikPIZAHUOAQA4290-53-92 10:34:00 Test Item Value Reference Range Interpretation Comments Lymphocytes # (test code = Lymphocytes 0.6 1.0-5.5 #) [facility] LancasterHnwmjytHDNSCLVYQS5423-45-42 10:34:00 Test Item Value Reference Range Interpretation Comments Monocytes # (test code 0.3 See_Comment [Aut omated message] The = Monocytes #) system which generated this result tra nsmitted reference range : <=0.8. The reference r shen was not used to int erpret this result as normal/abnormal . [facility] CampusKcxchdlWIPYSJ0811-00-00 10:34:00 Test Item Value Reference Range Interpretation Comments Trig (test code = Trig) 91 [place] 065703-06-08 10:34:00 Test Item Value Reference Range Interpretation Comments Chol (test code = Chol) 134 [place] 065703-06-08 10:34:00 Test Item Value Reference Range Interpretation Comments HDL (test code = HDL) 63 [facility] CampusHfrjbpsPGOWLV1475-64-12 10:34:00 Test Item Value Reference Range Interpretation Comments Chol/HDL Ratio (test code = Chol/HDL 2.13 1 4.00-7.30 Ratio) [facility] CampusKqwnhpmQLVQKG5924-54-65 10:34:00 Test Item Value Reference Range Interpretation Comments LDL (Calculated) (test code = LDL 53 (Calculated)) [facility] TexasWirbafxOTVMYS2781-62-03 10:34:00 Test Item Value Reference Range Interpretation Comments VLDL (test code = VLDL) 18 1 [facility] TexasannSPECIAL EXCBPVCJF6906-78-19 10:34:00 Test Item Value Reference Range Interpretation Comments Hgb A1C (test code = Hgb A1C) 5.3 [facility] TexasJlujwshPLJZHPIUI6811-88-13 05:40:00 Test Item Value Reference Range Interpretation Comments U Amph Scr (test code Negative *NA*(07/16/22 = U Amph Scr) 12:40 AM) [facility] CgmcgpkYLFFZUWGO7502-73-92 05:40:00 Test Item Value Reference Range Interpretation Comments U Stacey Scr (test code Negative *NA*(07/16/22 = U Stacey Scr) 12:40 AM) [facility] DmlcfdnGUKEAMEDD6419-41-35 05:40:00 Test Item Value Reference Range Interpretation Comments U Benzodiaz Scr (test Negative *NA*(07/16/22 code = U Benzodiaz Scr) 12:40 AM) [facility] TexasQsytepyNWOWVYBTQ8361-21-09 05:40:00 Test Item Value Reference Range Interpretation Comments U Cocaine Scr (test Negative *NA*(07/16/22 code = U Cocaine Scr) 12:40 AM) [facility] OksbntyBXPGIGZEQ5470-37-95 05:40:00 Test Item Value Reference Range Interpretation Comments U Cannab Scr (test Positive *ABN*(07/16/22 code = U Cannab Scr) 12:40 AM) [facility] TexasSgekfhmGTNDIKUHJ7770-19-58 05:40:00 Test Item Value Reference Range Interpretation Comments U Opiate Scr (test Negative *NA*(07/16/22 code = U Opiate Scr) 12:40 AM) [facility] TexasXwdbaklRZBSCDCNN1966-04-06 05:40:00 Test Item Value Reference Range Interpretation Comments U Phencyclidine Scr (test Negative *NA*(07/16/22 code = U Phencyclidine 12:40 AM) Scr) [facility] TexasXvrfucmLJULOYJFC9896-04-47 05:40:00 Test Item Value Reference Range Interpretation Comments UDS Note (test code = See Note 3(07/16/22 12:40 UDS Note) AM) [facility] TexasannDRUG LAJJYJ1032-19-12 05:40:00 Test Item Value Reference Range Interpretation Comments U Amph Scr (test code Negative *NA*(07/16/22 = U Amph Scr) 12:40 AM) [facility] FFWTVH5837-95-69 05:40:00 Test Item Value Reference Range Interpretation Comments U Stacey Scr (test code Negative *NA*(07/16/22 = U Stacey Scr) 12:40 AM) [facility] BUSHIS3049-37-02 05:40:00 Test Item Value Reference Range Interpretation Comments U Benzodiaz Scr (test Negative *NA*(07/16/22 code = U Benzodiaz Scr) 12:40 AM) [facility] WBDBQI8285-63-70 05:40:00 Test Item Value Reference Range Interpretation Comments U Cocaine Scr (test Negative *NA*(07/16/22 code = U Cocaine Scr) 12:40 AM) [facility] DZBLLE9849-17-83 05:40:00 Test Item Value Reference Range Interpretation Comments U Cannab Scr (test Positive *ABN*(07/16/22 code = U Cannab Scr) 12:40 AM) [facility] LUHVPT0583-49-18 05:40:00 Test Item Value Reference Range Interpretation Comments U Opiate Scr (test Negative *NA*(07/16/22 code = U Opiate Scr) 12:40 AM) [facility] GAQTAT1248-01-44 05:40:00 Test Item Value Reference Range Interpretation Comments U Phencyclidine Scr (test Negative *NA*(07/16/22 code = U Phencyclidine 12:40 AM) Scr) [facility] HHKKEG5864-61-28 05:40:00 Test Item Value Reference Range Interpretation Comments UDS Note (test code = See Note 5(07/16/22 12:40 UDS Note) AM) [facility] TexasUcntkgrJCVBFNYXGV5626-64-35 05:38:00 Test Item Value Reference Range Interpretation Comments Coronavirus (COVID-19) Not Detected DIVYA (test code = 17(07/16/22 12:38 AM) Coronavirus (COVID-19) DIVYA) [facility] TexasannCARDIAC LGBZJPS6151-38-38 03:58:00 Test Item Value Reference Range Interpretation Comments HS Troponin I (test code = HS Troponin 986 I) [facility] TexasannTROPONIN R9536-58-42 00:20:13 Test Item Value Reference Range Interpretation Comments TROPONIN I (test code = 0.057 ng/mL <=0.034 H 1217121501) CLAUDIA (test code = CLAUDIA) Reference (Normal) [...] biotin. Lab Interpretation Abnormal (test code = 57581-9) [facility]13 00:01:50 Test Item Value Reference Range Interpretation Comments APTT Patient (test code 42 See_Comment H [Au tomated message] = 3173-2) The system [employer] generated this result transmitted ref erence range: 26 - 36 Seconds. The reference range was not used to int erpret this result as normal/abnormal . Lab Interpretation (test Abnormal code = 41188-4) [facility] 16:15:56 Test Item Value Reference Range Interpretation Comments TROPONIN I (test code = 0.087 ng/mL <=0.034 H [id number]) CLAUDIA (test code = CLAUDIA) Reference (Normal) [...] biotin. Lab Interpretation Abnormal (test code = 95236-3) [facility]2022-07-12 13:46:54 Test Item Value Reference Range Interpretation Comments POCT GLU (test code = 2241190809) 100 mg/dL 70-110 Lab Interpretation (test code = Normal 13297-9) [facility] HendersonTroponin [id number] 03:20:51 Test Item Value Reference Range Interpretation Comments TROPONIN I (test code = 0.081 ng/mL <=0.034 H 6188503947) CLAUDIA (test code = CLAUDIA) Reference (Normal) [...] biotin. Lab Interpretation Abnormal (test code = 56243-4) [facility] HendersonProthrombin Time / AAE0517-21-06 03:04:49 Test Item Value Reference Range Interpretation Comments PROTIME PATIENT (test 12.0 See_Comment [Auto mated message] code = 5964-2) The system [employer] generated this result transmitted ref erence range: 10.1 - 1 2.6 Seconds. The re ference range was not u sed to interpret this result as normal/abnor mal. INR (test code = 6301-6) 1.1 Nor mal INR <1.1; Warfarin Therap eutic range 2.0 to 3. 0 or 2.5 to 3.5, dep ending upon the indica tions. Lab Interpretation (test Normal code = 78966-3) [facility] 03:04:49 Test Item Value Reference Range Interpretation Comments APTT Patient (test code = 34 See_Comment [ Automated message] 3173-2) The system [employer] h generated this result transmitted ref erence range: 26 - 36 Seconds. The re ference range was not u sed to interpret this result as normal/abnor mal. Lab Interpretation (test Normal code = 24494-0) [facility] HendersonThyroid Stim[facility] Hormone (TSH)2022-07-12 01:31:26 Test Item Value Reference Range Interpretation Comments TSH (test code = 1.59 See_Comment Biotin has been [id number]) reported to cau se a negative bias, interpret resul ts relative to pat ient's use of biotin. [Automated mess age] The system [employer] generated this result transmitted ref erence range: 0.45 - 4 .70 mIU/L. The refe rence range was not u sed to interpret this result as normal/abnor mal. Lab Interpretation (test Normal code = 69689-3) [facility] HendersonGLYCOSYLATED HEMOGLOBIN (A1C)2022-07-12 01:17:12 Test Item Value Reference Range Interpretation Comments HGB A1C (test code = 5.3 % 4.0-5.7 4548-4) CLAUDIA (test code = CLAUDIA) Reference RangesNormal: <5.7%Prediabetes: 5.7 - 6.4%Diabetes: > 6.5% Lab Interpretation (test Normal code = 27327-9) [facility] [id number] 23:31:20 Test Item Value Reference Range Interpretation Comments TROPONIN I (test code = 0.086 ng/mL <=0.034 H 3272410427) CLAUDIA (test code = CLAUDIA) Reference (Normal) [...] biotin. Lab Interpretation Abnormal (test code = 21431-4) [facility] [id number] 20:07:32 Test Item Value Reference Range Interpretation Comments TROPONIN I (test code = 0.072 ng/mL <=0.034 H 6493226543) CLAUDIA (test code = CLAUDIA) Reference (Normal) [...] biotin. Lab Interpretation Abnormal (test code = 72159-6) [facility]. METABOLIC PANEL (51010)2022-07-11 19:57:13 Test Item Value Reference Range Interpretation Comments NA (test code = 139 mmol/L 135-145 9488660109) K (test code = 4.2 mmol/L 3.5-5.0 1502679976) CL (test code = 102 mmol/L 98-108 7905942559) CO2 TOTAL (test code = 28 mmol/L 23-31 7678845828) AGAP (test code = 9 2-16 7182634172) BUN (test code = 23 mg/dL 7-23 2556549998) GLUCOSE (test code = 104 mg/dL 70-110 4835376814) CREATININE (test code = 0.99 mg/dL 0.60-1.25 7412308769) TOTAL BILI (test code = 0.9 mg/dL 0.1-1.0 6444629378) CALCIUM (test code = 9.0 mg/dL 8.6-10.6 3496591289) T PROTEIN (test code = 6.7 g/dL 6.3-8.2 1765720967) ALBUMIN (test code = 4.3 g/dL 3.5-5.0 4451544821) ALK PHOS (test code = 58 U/L 34-122 2792645369) ALTv (test code = 22 U/L 5-50 1742-6) AST(SGOT) (test code = 43 U/L 13-40 H 0942036605) eGFR (test code = 74.5 mL/min/1.73m2 6486624537) CLAUDIA (test code = CLAUDIA) Association of [...] tests). Lab Interpretation Abnormal (test code = 26813-8) [facility]IPASE[facility] 19:57:13 Test Item Value Reference Range Interpretation Comments LIPASE (test code = 4901846686) 91 U/L 0-220 Lab Interpretation (test code = Normal 94874-5) [facility] HendersonCB WITH HMDK4676-70-03 19:42:51 Test Item Value Reference Range Interpretation Comments WBC (test code = 4.08 See_Comment L [Automated 7727-2) message] The sy stem which generated this result transmitted reference range : 4.20 - 10.70 10*3/?L. The reference range was not used to interpret this result as normal/abnormal . RBC (test code = 4.75 See_Comment [Automated 219-8) message] The sy stem which generated this [...] RDW-SD (test code = 41.6 fL 38.5-51.6 28287-4) RDW-CV (test code = 12.7 % 12.1-15.4 788-0) PLT (test code = 106 See_Comment L [Automated 777-3) message] The sy stem which generated this result transmitted reference range : 150 - 328 10*3/ ?L. The reference r shen was not used to interpret this result as normal/abnormal . MPV (test code = 10.9 fL 9.8-13.0 42677-2) NRBC/100 WBC (test 0.0 See_Comment [Automat ed code = 7796419901) message] The system which generated this result transmitted reference range : 0.0 - 10.0 /100 WBCs. The refer ence range was not u sed to interpret th is result as normal/abnormal . NRBC x10^3 (test code See_Comment [Auto mated = 4460739193) message] The s ystem which generated this result transmitted reference range : 10*3/?L. The reference range was not used to interpret this result as normal/abnormal . GRAN MAT (NEUT) % 74.1 % (test code = 770-8) IMM GRAN % (test code 0.20 % = 7151731591) LYMPH % (test code = 15.4 % 736-9) MONO % (test code = 9.1 % 5905-5) EOS % (test code = 1.0 % 713-8) BASO % (test code = 0.2 % 706-2) GRAN MAT x10^3(ANC) 3.02 10*3/uL 1.99-6.95 (test code = 7520545814) IMM GRAN x10^3 (test 0.00-0.06 code = 9762725859) LYMPH x10^3 (test code 0.63 10*3/uL 1.09-3.23 L = 731-0) MONO x10^3 (test code 0.37 10*3/uL 0.36-1.02 = 742-7) EOS x10^3 (test code = 0.04 10*3/uL 0.06-0.53 L 711-2) BASO x10^3 (test code 0.01-0.09 = 704-7) Lab Interpretation Abnormal (test code = 73279-7) [facility] URINALYSIS W SPECIFIC CTPLORX5179-39-96 16:32:00 Test Item Value Reference Range Interpretation [...] 3267) Lab Interpretation (test code Normal = 09395-2) [facility] URINALYSIS W SPECIFIC IBPNUQE3284-65-02 16:32:00 Test Item Value Reference Range Interpretation [...] 3267) Lab Interpretation (test code Normal = 59573-5) [facility] GLUCOSE (AUTOMATED)2022-05-02 13:41:42 Test Item Value Reference Range Interpretation Comments POCT GLU (test code = 2636851217) 96 mg/dL 70-110 Lab Interpretation (test code = Normal 56406-2) [facility] GLUCOSE (AUTOMATED)2022-05-02 13:41:42 Test Item Value Reference Range Interpretation Comments POCT GLU (test code = 5613135881) 96 mg/dL 70-110 Lab Interpretation (test code = Normal 87944-4) [facility] GLUCOSE (AUTOMATED)2022-05-02 13:41:42 Test Item Value Reference Range Interpretation Comments POCT GLU (test code = 2883925297) 96 mg/dL 70-110 Lab Interpretation (test code = Normal 31372-3) [facility] 01:04:23 Test Item Value Reference Range Interpretation Comments RADRPT (test code EXAM: Abdomen complete = RADRPT) USDATE: 12/15/2021 11:34.INDICATION: Leukopenia.COMPARISON: None available.TECHNIQUE: Multiplanar grayscale and color Doppler ultrasound of the abdomen.FINDINGS:* Suboptimal evaluation due to the patient's limited mobility.LIVER* Craniocaudal length: 14.1 cm.* Echogenicity: Normal.* Surface nodularity: Normal.* Focal lesion: None.* Other: The left hepatic lobe is not well seen.GALLBLADDER* General comments: Normal.* Gallstones/polyps: None.* Gallbladder sludge: None.* Gallbladder wall: 0.2 cm.* Pericholecystic fluid: None.* Sonographic Betancourt sign: Absent.BILE DUCTS* Common bile duct diameter: 0.3 cm.* Intrahepatic ducts: Normal.PANCREAS* Not seen due to overlying bowel gas.SPLEEN* Craniocaudal length: 11.4 cm.* Focal lesion: None.RIGHT KIDNEY* Hydronephrosis: None.* Size: 10.8 x 5.1 x 5.1 cm. Cortical thickness = 1.4 cm.* Echogenicity: Unremarkable.* Mass/Stone/Cyst: None.LEFT KIDNEY* Hydronephrosis: None.* Size: 9.7 x 4.3 x 4.8 cm. Cortical thickness = 1.4 cm.* Echogenicity: Unremarkable.* Mass/Stone/Cyst: None.VESSELS AND FREE FLUID* Portal vein: Normal.* Abdominal aorta and IVC: The visible portions are without acute finding. Moderate plaque is partially imaged (image 33).* Ascites: None.IMPRESSION:1. No abnormality is identified on this ultrasound of the abdomen to explain the patient's abnormal labs.2. Limitations as above. [facility] WITH [id number] 05:21:51 Test Item Value Reference Range Interpretation Comments WBC (test code = See_Comment L [Automated 9690-2) message] The sy stem which generated this result transmitted reference range : 4.20 - 10.70 10*3/?L. The reference range was not used to interpret this result as normal/abnormal . RBC (test code = See_Comment [Automated 439-8) message] The sy stem which generated this [...] RDW-SD (test code = 45.1 fL 38.5-51.6 06448-6) RDW-CV (test code = 13.3 % 12.1-15.4 788-0) PLT (test code = See_Comment L [Automated 777-3) message] The sy stem which generated this result transmitted reference range : 150 - 328 10*3/ ?L. The reference r shen was not used to interpret this result as normal/abnormal . MPV (test code = 12.4 fL 9.8-13 41049-9) NRBC/100 WBC (test See_Comment [Automat ed code = 6339172308) message] The system which generated this result transmitted reference range : 0.0 - 10.0 /100 WBCs. The refer ence range was not u sed to interpret th is result as normal/abnormal . NRBC x10^3 (test code See_Comment [Auto mated = 0372374975) message] The s ystem which generated this result transmitted reference range : 10*3/?L. The reference range was not used to interpret this result as normal/abnormal . GRAN MAT (NEUT) % 72.7 % (test code = 770-8) IMM GRAN % (test code 0.30 % = 8517223327) LYMPH % (test code = 17.5 % 736-9) MONO % (test code = 8.2 % 5905-5) EOS % (test code = 1.0 % 713-8) BASO % (test code = 0.3 % 706-2) GRAN MAT x10^3(ANC) 2.83 10*3/uL 1.99-6.95 (test code = 0605534859) IMM GRAN x10^3 (test 0-0.06 code = 9643186292) LYMPH x10^3 (test code 0.68 10*3/uL 1.09-3.23 L = 731-0) MONO x10^3 (test code 0.32 10*3/uL 0.36-1.02 L = 742-7) EOS x10^3 (test code = 0.04 10*3/uL 0.06-0.53 L 711-2) BASO x10^3 (test code 0.01-0.09 = 704-7) Lab Interpretation Abnormal (test code = 01746-3) [facility] WITH [id number] 05:21:51 Test Item Value Reference Range Interpretation [...] RDW-SD (test code = 45.1 fL 38.5-51.6 00531-2) RDW-CV (test code = 13.3 % 12.1-15.4 788-0) PLT (test code = See_Comment L [Automated 777-3) message] The sy stem which generated this result transmitted reference range : 150 - 328 10*3/ ?L. The reference r shen was not used to interpret this result as normal/abnormal . MPV (test code = 12.4 fL 9.8-13 97922-1) NRBC/100 WBC (test See_Comment [Automat ed code = 9157407848) message] The system which generated this result transmitted reference range : 0.0 - 10.0 /100 WBCs. The refer ence range was not u sed to interpret th is result as normal/abnormal . NRBC x10^3 (test code See_Comment [Auto mated = 2769478556) message] The s ystem which generated this result transmitted reference range : 10*3/?L. The reference range was not used to interpret this result as normal/abnormal . GRAN MAT (NEUT) % 72.7 % (test code = 770-8) IMM GRAN % (test code 0.30 % = 5520156094) LYMPH % (test code = 17.5 % 736-9) MONO % (test code = 8.2 % 5905-5) EOS % (test code = 1.0 % 713-8) BASO % (test code = 0.3 % 706-2) GRAN MAT x10^3(ANC) 2.83 10*3/uL 1.99-6.95 (test code = 4650517838) IMM GRAN x10^3 (test 0-0.06 code = 7783510491) LYMPH x10^3 (test code 0.68 10*3/uL 1.09-3.23 L = 731-0) MONO x10^3 (test code 0.32 10*3/uL 0.36-1.02 L = 742-7) EOS x10^3 (test code = 0.04 10*3/uL 0.06-0.53 L 711-2) BASO x10^3 (test code 0.01-0.09 = 704-7) Lab Interpretation Abnormal (test code = 34770-2) [id number] 11:45:00 Test Item Value Reference Range Interpretation Comments POC-GLUCOSE METER 138 mg/dL 70-110 H TESTED AT [place] [address] ([facility]) (test code = MANISHVAN Estrada [facility] 1538) [address] POCT-GLUCOSE [id number] 06:18:00 Test Item Value Reference Range Interpretation Comments POC-GLUCOSE METER 127 mg/dL 70-110 H TESTED AT [place] [address] ([facility]) (test code = BRISSA Estrada [facility] 1538) 728[address] POCT-GLUCOSE [id number] 00:19:00 Test Item Value Reference Range Interpretation Comments POC-GLUCOSE METER 124 mg/dL 70-110 H TESTED AT [place] [address] ([facility]) (test code = BRISSA Estrada [facility] 1538) 38887 POCT-GLUCOSE [id number] 15:26:00 Test Item Value Reference Range Interpretation Comments POC-GLUCOSE METER 113 mg/dL 70-110 H TESTED AT [place] [address] ([facility]) (test code = BRISSA Estrada [facility] 1538) 87966 POCT-GLUCOSE [id number] 10:30:00 Test Item Value Reference Range Interpretation Comments POC-GLUCOSE METER 134 mg/dL 70-110 H TESTED AT [place] [address] ([facility]) (test code = BRISSA [place] 1538) 26361 POCT-GLUCOSE [id number] 06:25:00 Test Item Value Reference Range Interpretation Comments POC-GLUCOSE METER 120 mg/dL 70-110 H TESTED AT [place] [address] ([facility]) (test code = BRISSA [place] 1538) 0[address] POCT-GLUCOSE [id number] 01:12:00 Test Item Value Reference Range Interpretation Comments POC-GLUCOSE METER 122 mg/dL 70-110 H TESTED AT [place] [address] ([facility]) (test code = BRISSA Estrada [place] 1538) 0[address] POCT-GLUCOSE [id number] 18:32:00 Test Item Value Reference Range Interpretation Comments POC-GLUCOSE METER 129 mg/dL 70-110 H TESTED AT [place] [address] ([facility]) (test code = BRISSA Estrada [place] 1538) 31778 POCT-GLUCOSE [id number] 12:10:00 Test Item Value Reference Range Interpretation Comments POC-GLUCOSE METER 125 mg/dL 70-110 H TESTED AT [place] [address] ([facility]) (test code = BRISSA Estrada [place] 1538) 29641 POCT-GLUCOSE [id number] 05:50:00 Test Item Value Reference Range Interpretation Comments POC-GLUCOSE METER 115 mg/dL 70-110 H TESTED AT [place] [address] ([facility]) (test code = BRISSA Estrada [place] 1538) [address]10 POCT-GLUCOSE [id number] 23:18:00 Test Item Value Reference Range Interpretation Comments POC-GLUCOSE METER 117 mg/dL 70-110 H TESTED AT [place] [address] ([facility]) (test code = BRISSA Estrada [place] 1538) 98183 POCT-GLUCOSE [id number] 16:33:00 Test Item Value Reference Range Interpretation Comments POC-GLUCOSE METER 124 mg/dL 70-110 H TESTED AT [place] [address] ([facility]) (test code = BRISSA Estrada [place] 1538) 12636 POCT-GLUCOSE [id number] 11:48:00 Test Item Value Reference Range Interpretation Comments POC-GLUCOSE METER 147 mg/dL 70-110 H TESTED AT [place] [address] (BEAKER) (test code = BRISSA [place] 1538) [address] BASIC METABOLIC [id number] 07:27:00 Test Item Value Reference Range Interpretation [...] 697) EGFR (BEAKER) (test 86 mL/min/1.73 ESTIMA ELVA GFR IS code = 1092) sq m NOT ACCURATE CREATININE CLEARANCE IN PREDICTING GLOMERULAR FILTRATION RATE . ESTIMATED GFR I S NOT APPLICABLE FOR DIALYSIS PATIEN TS. CBC W/PLT COUNT & AUTO [id number] 06:26:00 Test Item Value Reference Range Interpretation [...] PERCENT (BEAKER) (test code = 2801) POCT-GLUCOSE [id number] 06:10:00 Test Item Value Reference Range Interpretation Comments POC-GLUCOSE METER 126 mg/dL 70-110 H TESTED AT [place] [address] ([facility]) ([facility] 1538) 46253 POCT-GLUCOSE [id number] 23:53:00 Test Item Value Reference Range Interpretation Comments POC-GLUCOSE METER 126 mg/dL 70-110 H TESTED AT [place] [address] ([facility]) ([facility] = [facility] 1538) 18122 POCT-GLUCOSE [id number] 16:56:00 Test Item Value Reference Range Interpretation Comments POC-GLUCOSE METER 92 mg/dL 70-110 TESTED AT [place] [address] ([facility]) (test [facility] = [facility] [address] 1538) POCT-GLUCOSE [id number] 11:37:00 Test Item Value Reference Range Interpretation Comments POC-GLUCOSE METER 129 mg/dL 70-110 H TESTED AT [place] [address] ([facility]) (test code = BRISSA [place] 1538) 13722 POCT-GLUCOSE [id number] 06:50:00 Test Item Value Reference Range Interpretation Comments POC-GLUCOSE METER 137 mg/dL 70-110 H TESTED AT [place] [address] ([facility]) (test code = BRISSA [place] 1538) 26675 POCT-GLUCOSE [id number] 00:48:00 Test Item Value Reference Range Interpretation Comments POC-GLUCOSE METER 120 mg/dL 70-110 H TESTED AT [place] [address] ([facility]) (test code = BRISSA Estrada [place] 1538) 72884 POCT-GLUCOSE [id number] 17:06:00 Test Item Value Reference Range Interpretation Comments POC-GLUCOSE METER 114 mg/dL 70-110 H TESTED AT [place] [address] ([facility]) (test code = BRISSA Estrada [place] 1538) 34707 POCT-GLUCOSE [id number] 11:30:00 Test Item Value Reference Range Interpretation Comments POC-GLUCOSE METER 122 mg/dL 70-110 H TESTED AT [place] [address] ([facility]) (test code = BRISSA Estrada [place] 1538) 39591 POCT-GLUCOSE [id number] 06:30:00 Test Item Value Reference Range Interpretation Comments POC-GLUCOSE METER 109 mg/dL 70-110 TESTED AT [place] [address] ([facility]) (test code = BRISSA Estrada [place] 1538) 12029 POCT-GLUCOSE [id number] 02:39:00 Test Item Value Reference Range Interpretation Comments POC-GLUCOSE METER 122 mg/dL 70-110 H TESTED AT [place] [address] ([facility]) (test code = BRISSA Estrada [place] 1538) 82281 POCT-GLUCOSE [id number] 16:32:00 Test Item Value Reference Range Interpretation Comments POC-GLUCOSE METER 119 mg/dL 70-110 H TESTED AT [place] [address] ([facility]) (test code = BRISSA Estrada [place] 1538) 38213 POCT-GLUCOSE [id number] 06:25:00 Test Item Value Reference Range Interpretation Comments POC-GLUCOSE METER 110 mg/dL 70-110 TESTED AT [place] [address] ([facility]) (test code = BRISSA Estrada [facility] 1538) 58488 POCT-GLUCOSE [id number] 00:07:00 Test Item Value Reference Range Interpretation Comments POC-GLUCOSE METER 132 mg/dL 70-110 H TESTED AT [place] [address] ([facility]) (test code = BRISSA [place] 1538) [address]308 POCT-GLUCOSE [id number] 17:25:00 Test Item Value Reference Range Interpretation Comments POC-GLUCOSE METER 147 mg/dL 70-110 H TESTED AT [place] [address] ([facility]) (test code = BRISSA [place] 1538) 58545 POCT-GLUCOSE [id number] 12:26:00 Test Item Value Reference Range Interpretation Comments POC-GLUCOSE METER 188 mg/dL 70-110 H TESTED AT [place] [address] ([facility]) (test code = BRISSA Estrada [facility] 1538) 47204 POCT-GLUCOSE [id number] 06:28:00 Test Item Value Reference Range Interpretation Comments POC-GLUCOSE METER 107 mg/dL 70-110 TESTED AT [place] [address] ([facility]) (test code = BRISSA [place] 1538) 68597 POCT-GLUCOSE [id number] 23:53:00 Test Item Value Reference Range Interpretation Comments POC-GLUCOSE METER 143 mg/dL 70-110 H TESTED AT [place] [address] ([facility]) (test code = BRISSA Estrada [facility] 1538) 97326 POCT-GLUCOSE [id number] 17:13:00 Test Item Value Reference Range Interpretation Comments POC-GLUCOSE METER 180 mg/dL 70-110 H TESTED AT [place] [address] ([facility]) (test code = BRISSA Estrada [facility] 1538) [address] FL, ESOPH, SWALLOW FUNCTION, WITH CINE OR [id number] 15:39:00Reason for exam:->dysphagiaFINAL REPORT Modified barium swallow Reason for examination: dysphagia TECHNIQUE: Fluoroscopy provided. RADIATION DOSE: Fluoroscopy Time: 1.17 min Dose (Kerma) Area Product: 1894.7aVfwu5 Air Kerma (AK) value has been reviewed. It is below the limits set by the Radiation Protocol Committee (RPC) committee. DISCUSSION: Initial salvage grinder view of the chest shows no acute [...] for detailed description and recommendations. Signed: Samaria Posada MDReport Verified Date/Time: 10/06/2018 15:39:34 Reading Location: [facility] Room [address] [place] [address] POCT-GLUCOSE [id number] 05:51:00 Test Item Value Reference Range Interpretation Comments POC-GLUCOSE METER 111 mg/dL 70-110 H TESTED AT [place] [address] ([facility]) (test code = BRISSA [place] 1538) 6[address]91 POCT-GLUCOSE [id number] 23:49:00 Test Item Value Reference Range Interpretation Comments POC-GLUCOSE METER 169 mg/dL 70-110 H TESTED AT [place] [address] ([facility]) (test code = BRISSA Estrada [facility] 1538) 96262 POCT-GLUCOSE [id number] 17:11:00 Test Item Value Reference Range Interpretation Comments POC-GLUCOSE METER 182 mg/dL 70-110 H TESTED AT [place] [address] ([facility]) (test code = BRISSA Estrada [facility] 1538) 98776 POCT-GLUCOSE [id number] 12:14:00 Test Item Value Reference Range Interpretation Comments POC-GLUCOSE METER 162 mg/dL 70-110 H TESTED AT [place] [address] ([facility]) (test code = BRISSA Estrada [facility] 1538) 52841 POCT-GLUCOSE [id number] 06:32:00 Test Item Value Reference Range Interpretation Comments POC-GLUCOSE METER 122 mg/dL 70-110 H TESTED AT [place] [address] ([facility]) (test code = BRISSA Estrada [facility] 1538) 41398 POCT-GLUCOSE [id number] 23:30:00 Test Item Value Reference Range Interpretation Comments POC-GLUCOSE METER 133 mg/dL 70-110 H TESTED AT [place] [address] ([facility]) (test code = BRISSA Estrada [facility] 1538) 79670 POCT-GLUCOSE [id number] 16:43:00 Test Item Value Reference Range Interpretation Comments POC-GLUCOSE METER 180 mg/dL 70-110 H TESTED AT [place] [address] ([facility]) (test code = BRISSA Estrada [facility] 1538) 87452 POCT-GLUCOSE [id number] 12:06:00 Test Item Value Reference Range Interpretation Comments POC-GLUCOSE METER 185 mg/dL 70-110 H TESTED AT [place] [address] ([facility]) (test code = BRISSA Estrada [place] 1538) 6[address] POCT-GLUCOSE [id number] 06:37:00 Test Item Value Reference Range Interpretation Comments POC-GLUCOSE METER 128 mg/dL 70-110 H TESTED AT [place] [address] ([facility]) (test code = BRISSA Estrada [place] 1538) 86158 POCT-GLUCOSE [id number] 00:37:00 Test Item Value Reference Range Interpretation Comments POC-GLUCOSE METER 138 mg/dL 70-110 H TESTED AT [place] [address] ([facility]) (test code = BRISSA Estrada [facility] 1538) 80996 POCT-GLUCOSE [id number] 16:37:00 Test Item Value Reference Range Interpretation Comments POC-GLUCOSE METER 166 mg/dL 70-110 H TESTED AT [place] [address] ([facility]) (test code = BRISSA Estrada [facility] 1538) 52455 POCT-GLUCOSE [id number] 11:53:00 Test Item Value Reference Range Interpretation Comments POC-GLUCOSE METER 182 mg/dL 70-110 H TESTED AT [place] [address] ([facility]) (test code = BRISSA Estrada [place] 1538) 08796 POCT-GLUCOSE [id number] 06:23:00 Test Item Value Reference Range Interpretation Comments POC-GLUCOSE METER 109 mg/dL 70-110 TESTED AT [place] [address] ([facility]) (test code = BRISSA Estrada [place] 1538) 71453 BASIC METABOLIC [id number] 05:27:00 Test Item Value Reference Range Interpretation [...] 697) EGFR (BEAKER) (test 76 mL/min/1.73 ESTIMA ELVA GFR IS code = 1092) sq m NOT ACCURATE CREATININE CLEARANCE IN PREDICTING GLOMERULAR FILTRATION RATE . ESTIMATED GFR I S NOT APPLICABLE FOR DIALYSIS PATIEN TS. CBC W/PLT COUNT & AUTO [id number] 04:54:00 Test Item Value Reference Range Interpretation [...] PERCENT (BEAKER) (test code = 2801) POCT-GLUCOSE [id number] 01:27:00 Test Item Value Reference Range Interpretation Comments POC-GLUCOSE METER 122 mg/dL 70-110 H TESTED AT [place] [address] ([facility]) (test code = BRISSA Estrada [facility] 1538) 16997 POCT-GLUCOSE [id number] 16:45:00 Test Item Value Reference Range Interpretation Comments POC-GLUCOSE METER 197 mg/dL 70-110 H TESTED AT [place] [address] ([facility]) (test code = BRISSA Estrada [facility] 1538) 82081 POCT-GLUCOSE [id number] 12:19:00 Test Item Value Reference Range Interpretation Comments POC-GLUCOSE METER 186 mg/dL 70-110 H TESTED AT [place] [address] ([facility]) (test code = BRISSA Estrada [facility] 1538) 64524 POCT-GLUCOSE [id number] 06:06:00 Test Item Value Reference Range Interpretation Comments POC-GLUCOSE METER 123 mg/dL 70-110 H TESTED AT [facility] 67[address] ([facility]) (test code = BRISSA Estrada [facility] 1538) 84447 POCT-GLUCOSE [id number] 00:23:00 Test Item Value Reference Range Interpretation Comments POC-GLUCOSE METER 111 mg/dL 70-110 H TESTED AT [facility] [address] ([facility]) (test code = BRISSA Estrada [facility] 1538) 94490 POCT-GLUCOSE [id number] 16:33:00 Test Item Value Reference Range Interpretation Comments POC-GLUCOSE METER 220 mg/dL 70-110 H TESTED AT [place] [address] ([facility]) (test code = BRISSA Estrada [place] 1538) 11236 POCT-GLUCOSE [id number] 12:05:00 Test Item Value Reference Range Interpretation Comments POC-GLUCOSE METER 197 mg/dL 70-110 H TESTED AT [place] [address] ([facility]) (test code = BRISSA Estrada [place] 1538) [address]30 URIC [id number] 08:32:00 Test Item Value Reference Range Interpretation Comments URIC ACID (BEAKER) (test code = 9.8 mg/dL 2.6-7.2 H 773) POCT-GLUCOSE [id number] 06:39:00 Test Item Value Reference Range Interpretation Comments POC-GLUCOSE METER 140 mg/dL 70-110 H TESTED AT [place] [address] ([facility]) (test code = BRISSA Estrada [place] 1538) 83101 POCT-GLUCOSE [id number] 23:49:00 Test Item Value Reference Range Interpretation Comments POC-GLUCOSE METER 162 mg/dL 70-110 H TESTED AT [place] [address] ([facility]) (test code = BRISSA Estrada [place] 1538) 6[address] POCT-GLUCOSE [id number] 16:38:00 Test Item Value Reference Range Interpretation Comments POC-GLUCOSE METER 196 mg/dL 70-110 H TESTED AT [place] [address] ([facility]) (test code = BRISSA Estrada [place] 1538) 43625 POCT-GLUCOSE [id number] 12:21:00 Test Item Value Reference Range Interpretation Comments POC-GLUCOSE METER 255 mg/dL 70-110 H TESTED AT [place] [address] ([facility]) (test code = BRISSA Estrada [place] 1538) [address]32 BASIC METABOLIC [id number] 06:27:00 Test Item Value Reference Range Interpretation Comments SODIUM (BEAKER) 135 meq/L 136-145 L (test code = 381) POTASSIUM (BEAKER) 4.4 meq/L 3.5-5.1 Specimen slightly (test code = 379) hemolyzed CHLORIDE (BEAKER) 99 meq/L 98-107 (test code = 382) CO2 (BEAKER) (test 31 meq/L 22-29 H code = 355) BLOOD UREA NITROGEN 59 mg/dL 7-21 H (BEAKER) (test code = 354) CREATININE ([facility]) 1.19 mg/dL 0.57-1.25 Specimen slightly (test code = 358) hemolyzed GLUCOSE RANDOM 114 mg/dL 70-105 H ([facility]) (test code = 652) CALCIUM ([facility]) 8.3 mg/dL 8.4-10.2 L (test code = 697) EGFR ([facility]) (test 61 mL/min/1.73 ESTIMA ELVA GFR IS code = 1092) sq m NOT ACCURATE CREATININE CLEARANCE IN PREDICTING GLOMERULAR FILTRATION RATE . ESTIMATED GFR I S NOT APPLICABLE FOR DIALYSIS PATIEN TS. POCT-GLUCOSE [id number] 05:57:00 Test Item Value Reference Range Interpretation Comments POC-GLUCOSE METER 131 mg/dL 70-110 H TESTED AT [place] [address] ([facility]) (test code = [facility] 1538) 22943 POCT-GLUCOSE [id number] 00:03:00 Test Item Value Reference Range Interpretation Comments POC-GLUCOSE METER 151 mg/dL 70-110 H TESTED AT [place] [address] ([facility]) (test code = [facility] 1538) 37661 POCT-GLUCOSE [id number] 17:07:00 Test Item Value Reference Range Interpretation Comments POC-GLUCOSE METER 180 mg/dL 70-110 H TESTED AT [place] [address] ([facility]) (test code = [facility] 1538) 52809 POCT-GLUCOSE [id number] 11:26:00 Test Item Value Reference Range Interpretation Comments POC-GLUCOSE METER 172 mg/dL 70-110 H TESTED AT [place] [address] ([facility]) (test code = [facility] 1538) 54979 POCT-GLUCOSE [id number] 06:29:00 Test Item Value Reference Range Interpretation Comments POC-GLUCOSE METER 166 mg/dL 70-110 H TESTED AT [place] [address] ([facility]) (test code = [facility] 1538) 27204 BASIC METABOLIC [id number] 06:02:00 Test Item Value Reference Range Interpretation Comments SODIUM ([facility]) 136 meq/L 136-145 (test code = 381) POTASSIUM ([facility]) 4.5 meq/L 3.5-5.1 Specimen slightly (test code [...] 697) EGFR (BEAKER) (test 58 mL/min/1.73 ESTIMA ELVA GFR IS code = 1092) sq m NOT ACCURATE CREATININE CLEARANCE IN PREDICTING GLOMERULAR FILTRATION RATE . ESTIMATED GFR I S NOT APPLICABLE FOR DIALYSIS PATIEN TS. POCT-GLUCOSE [id number] 23:57:00 Test Item Value Reference Range Interpretation Comments POC-GLUCOSE METER 175 mg/dL 70-110 H TESTED AT [place] [address] [facility] (test code = [facility] 1538) [id number] POCT-GLUCOSE [id number] 18:14:00 Test Item Value Reference Range Interpretation Comments POC-GLUCOSE METER 208 mg/dL 70-110 H TESTED AT [place] [address] ([facility] (test code = [facility] 1538) [id number] POCT-GLUCOSE [id number] 12:04:00 Test Item Value Reference Range Interpretation Comments POC-GLUCOSE METER 184 mg/dL 70-110 H TESTED AT [place] [address] ([facility] (test code = [facility] 1538) [id number] BASIC METABOLIC [id number] 07:35:00 Test Item Value Reference Range Interpretation [...] hemolyzed GLUCOSE RANDOM 134 mg/dL 70-105 H ([facility]) (test code = 652) CALCIUM (AKER) 8.9 mg/dL 8.4-10.2 (test code = 697) EGFR ([facility]) (test 53 mL/min/1.73 ESTIMA ELVA GFR IS code = 1092) sq m NOT ACCURATE CREATININE CLEARANCE IN PREDICTING GLOMERULAR FILTRATION RATE . ESTIMATED GFR I S NOT APPLICABLE FOR DIALYSIS PATIEN TS. POCT-GLUCOSE [id number] 06:18:00 Test Item Value Reference Range Interpretation Comments POC-GLUCOSE METER 176 mg/dL 70-110 H TESTED AT [place] [address] ([facility]) (test code = BRISSA Estr[facility] 1538) [id number] POCT-GLUCOSE [id number] 23:54:00 Test Item Value Reference Range Interpretation Comments POC-GLUCOSE METER 137 mg/dL 70-110 H TESTED AT [place] [address] ([facility]) [facility] = [facility] 1538) [id number] POCT-GLUCOSE [id number] 17:44:00 Test Item Value Reference Range Interpretation Comments POC-GLUCOSE METER 205 mg/dL 70-110 H TESTED AT [place] [address] ([facility]) ([facility] = [facility] 1538) [address] POCT-GLUCOSE [id number] 12:33:00 Test Item Value Reference Range Interpretation Comments POC-GLUCOSE METER 199 mg/dL 70-110 H TESTED AT [place] [address] ([facility]) [facility] = [facility] [facility] 1538) [address]204 POCT-GLUCOSE [id number] 06:23:00 Test Item Value Reference Range Interpretation Comments POC-GLUCOSE METER 132 mg/dL 70-110 H TESTED AT [place] [address] ([facility]) (test code = [facility] Sean [facility] 1538) [address] BASIC METABOLIC [id number] 06:21:00 Test Item Value Reference Range Interpretation [...] 697) EGFR (BEAKER) (test 68 mL/min/1.73 ESTIMA ELVA GFR IS code = 1092) sq m NOT ACCURATE CREATININE CLEARANCE IN PREDICTING GLOMERULAR FILTRATION RATE . ESTIMATED GFR I S NOT APPLICABLE FOR DIALYSIS PATIEN TS. POCT-GLUCOSE [id number] 00:04:00 Test Item Value Reference Range Interpretation Comments POC-GLUCOSE METER 145 mg/dL 70-110 H TESTED AT [place] [address] ([facility]) (test code = [facility] 1538) 65778 POCT-GLUCOSE [id number] 18:21:00 Test Item Value Reference Range Interpretation Comments POC-GLUCOSE METER 156 mg/dL 70-110 H TESTED AT [place] [address] ([facility]) (test code = [facility] 1538) 93902 POCT-GLUCOSE [id number] 12:17:00 Test Item Value Reference Range Interpretation Comments POC-GLUCOSE METER 231 mg/dL 70-110 H TESTED AT [place] [address] ([facility]) (test code = [facility] 1538) 96976 POCT-GLUCOSE [id number] 06:42:00 Test Item Value Reference Range Interpretation Comments POC-GLUCOSE METER 150 mg/dL 70-110 H TESTED AT [place] [id number] ([facility]) (test code = [facility] 1538) 22411 BASIC METABOLIC [id number] 06:09:00 Test Item Value Reference Range Interpretation [...] 697) EGFR (BEAKER) (test 58 mL/min/1.73 ESTIMA ELVA GFR IS code = 1092) sq m NOT ACCURATE CREATININE CLEARANCE IN PREDICTING GLOMERULAR FILTRATION RATE . ESTIMATED GFR I S NOT APPLICABLE FOR DIALYSIS PATIEN TS. CBC W/PLT COUNT & AUTO [id number] 06:04:00 Test Item Value Reference Range Interpretation [...] PERCENT (BEAKER) (test code = 2801) POCT-GLUCOSE [id number] 01:27:00 Test Item Value Reference Range Interpretation Comments POC-GLUCOSE METER 160 mg/dL 70-110 H TESTED AT [place] [address] ([facility]) (test code = [facility] Sean [facility] 1538) 83996 POCT-GLUCOSE [id number] 17:36:00 Test Item Value Reference Range Interpretation Comments POC-GLUCOSE METER 187 mg/dL 70-110 H TESTED AT [place] [address] ([facility]) [facility] 1538) 40569 POCT-GLUCOSE [id number] 12:14:00 Test Item Value Reference Range Interpretation Comments POC-GLUCOSE METER 217 mg/dL 70-110 H TESTED AT [place] [address] ([facility]) (test code = [facility] Sean [facility] 1538) 98657 POCT-GLUCOSE [id number] 05:56:00 Test Item Value Reference Range Interpretation Comments POC-GLUCOSE METER 130 mg/dL 70-110 H TESTED AT [place] [address] ([facility]) (test code = [facility] Sean [facility] 1538) 18674 POCT-GLUCOSE [id number] 23:14:00 Test Item Value Reference Range Interpretation Comments POC-GLUCOSE METER 128 mg/dL 70-110 H TESTED AT [place] [address] ([facility]) (test code = [facility] Sean [facility] 1538) 06228 POCT-GLUCOSE [id number] 17:12:00 Test Item Value Reference Range Interpretation Comments POC-GLUCOSE METER 211 mg/dL 70-110 H TESTED AT [place] [address] ([facility]) (test code = BRISSA Estrada [facility] 1538) 15666 POCT-GLUCOSE [id number] 12:08:00 Test Item Value Reference Range Interpretation Comments POC-GLUCOSE METER 216 mg/dL 70-110 H TESTED AT [place] [address] ([facility]) (test code = BRISSA Estrada [facility] 1538) 79390 POCT-GLUCOSE [id number] 06:07:00 Test Item Value Reference Range Interpretation Comments POC-GLUCOSE METER 143 mg/dL 70-110 H TESTED AT [place] [address] ([facility]) (test code = BRISSA Estrada [facility] 1538) 28320 POCT-GLUCOSE [id number] 23:53:00 Test Item Value Reference Range Interpretation Comments POC-GLUCOSE METER 148 mg/dL 70-110 H TESTED AT [place] [address] ([facility]) (test code = BRISSA Estrada [facility] 1538) 13624 POCT-GLUCOSE [id number] 17:29:00 Test Item Value Reference Range Interpretation Comments POC-GLUCOSE METER 215 mg/dL 70-110 H TESTED AT [place] [address] ([facility]) (test code = BRISSA Estrada [facility] 1538) 83716 POCT-GLUCOSE [id number] 12:09:00 Test Item Value Reference Range Interpretation Comments POC-GLUCOSE METER 218 mg/dL 70-110 H TESTED AT [place] [address] ([facility]) (test code = BRISSA Estrada [place] 1538) 26086 POCT-GLUCOSE [id number] 05:44:00 Test Item Value Reference Range Interpretation Comments POC-GLUCOSE METER 143 mg/dL 70-110 H TESTED AT [place] [address] ([facility]) (test code = BRISSA Estrada [place] 1538) [address] [id number] 04:51:00 Test Item Value Reference Range Interpretation Comments MAGNESIUM (BEAKER) 2.1 mg/dL 1.6-2.6 Specimen slightly (test code = 627) hemolyzed BASIC METABOLIC [id number] 04:51:00 Test Item Value Reference Range Interpretation [...] 697) EGFR (BEAKER) (test 59 mL/min/1.73 ESTIMA ELVA GFR IS code = 1092) sq m NOT ACCURATE CREATININE CLEARANCE IN PREDICTING GLOMERULAR FILTRATION RATE . ESTIMATED GFR I S NOT APPLICABLE FOR DIALYSIS PATIEN TS. CBC W/PLT COUNT & AUTO [id number] 04:31:00 Test Item Value Reference Range Interpretation [...] PERCENT (BEAKER) (test code = 2801) POCT-GLUCOSE [id number] 23:29:00 Test Item Value Reference Range Interpretation Comments POC-GLUCOSE METER 146 mg/dL 70-110 H TESTED AT [place] [address] (BEAKER) (test code = BRISSA Estrada [facility] 1538) 13318 POCT-GLUCOSE [id number] 13:33:00 Test Item Value Reference Range Interpretation Comments POC-GLUCOSE METER 184 mg/dL 70-110 H TESTED AT [place] [address] (BEAKER) (test code = BRISSA Estrada [facility] 1538) 21996 POCT-GLUCOSE [id number] 10:30:00 Test Item Value Reference Range Interpretation Comments POC-GLUCOSE METER 147 mg/dL 70-110 H TESTED AT [facility] 6720 (BEAKER) [facility] 1538) 96225 POCT-GLUCOSE [id number] 09:23:00 Test Item Value Reference Range Interpretation Comments POC-GLUCOSE METER 158 mg/dL 70-110 H TESTED AT [place] [id number] (BEAKER) ([facility] 1538) 5[address] [id number] 07:59:00 Test Item Value Reference Range Interpretation Comments PHOSPHORUS (BEAKER) (test code = 4.0 mg/dL 2.3-4.7 604) [id number] 07:59:00 Test Item Value Reference Range Interpretation Comments MAGNESIUM (BEAKER) (test code = 2.2 mg/dL 1.6-2.6 627) BASIC METABOLIC [id number] 07:59:00 Test Item Value Reference Range Interpretation [...] 697) EGFR (BEAKER) (test 63 mL/min/1.73 ESTIMA ELVA GFR IS code = 1092) sq m NOT ACCURATE CREATININE CLEARANCE IN PREDICTING GLOMERULAR FILTRATION RATE . ESTIMATED GFR I S NOT APPLICABLE FOR DIALYSIS PATIEN TS. CBC W/PLT COUNT & AUTO [id number] 05:58:00 Test Item Value Reference Range Interpretation [...] PERCENT (BEAKER) (test code = 2801) POCT-GLUCOSE [id number] 17:11:00 Test Item Value Reference Range Interpretation Comments POC-GLUCOSE METER 227 mg/dL 70-110 H TESTED AT [place] [address] (BEAKER) (test code = [place] 1538) [address] POCT-GLUCOSE [id number] 12:39:00 Test Item Value Reference Range Interpretation Comments POC-GLUCOSE METER 215 mg/dL 70-110 H TESTED AT [place] [address] (BEAKER) (test code = [place] 1538) [address]254 POCT-GLUCOSE [id number] 05:30:00 Test Item Value Reference Range Interpretation Comments POC-GLUCOSE METER 151 mg/dL 70-110 H TESTED AT [facility] 6720 (BEAKER) (test code = [place] 1538) [address] [id number] 03:57:00 Test Item Value Reference Range Interpretation Comments PHOSPHORUS (BEAKER) (test code = 4.0 mg/dL 2.3-4.7 604) [id number] 03:57:00 Test Item Value Reference Range Interpretation Comments MAGNESIUM (BEAKER) (test code = 2.2 mg/dL 1.6-2.6 627) BASIC METABOLIC [id number] 03:57:00 Test Item Value Reference Range Interpretation [...] 697) EGFR (BEAKER) (test 65 mL/min/1.73 ESTIMA ELVA GFR IS code = 1092) sq m NOT ACCURATE CREATININE CLEARANCE IN PREDICTING GLOMERULAR FILTRATION RATE . ESTIMATED GFR I S NOT APPLICABLE FOR DIALYSIS PATIEN TS. [id number] 03:47:00 Test Item Value Reference Range Interpretation Comments PARTIAL THROMBOPLASTIN TIME 36.2 seconds 22.5-36.0 H (BEAKER) (test code = 760) CBC W/PLT COUNT & AUTO [id number] 03:42:00 Test Item Value Reference Range Interpretation [...] ABSOLUTE COUNT 10.53 K/ L 1.78-5.38 H (BEAKER) (test code = 670) LYMPHOCYTES ABSOLUTE COUNT 1.49 K/ L 1.32-3.57 (BEAKER) (test code = 414) MONOCYTES ABSOLUTE COUNT (BEAKER) 0.92 K/ L 0.30-0.82 H (test code = 415) EOSINOPHILS ABSOLUTE COUNT 0.04 K/ L 0.04-0.54 (BEAKER) (test code = 416) BASOPHILS ABSOLUTE COUNT (BEAKER) 0.04 K/ L 0.01-0.08 (test code = 417) IMMATURE GRANULOCYTES-RELATIVE 1 % 0-1 PERCENT (BEAKER) (test code = 2801) POCT-GLUCOSE [id number] 23:32:00 Test Item Value Reference Range Interpretation Comments POC-GLUCOSE METER 165 mg/dL 70-110 H TESTED AT [facility] 6720 (BEAKER) (test code = [facility] [place] 1538) 14498 [id number] 20:47:00 Test Item Value Reference Range Interpretation Comments PARTIAL THROMBOPLASTIN TIME 30.9 seconds 22.5-36.0 (BEAKER) (test code = 760) POCT-GLUCOSE [id number] 17:48:00 Test Item Value Reference Range Interpretation Comments POC-GLUCOSE METER 233 mg/dL 70-110 H TESTED AT [facility] 6720 (BEAKER) (test code = BRISSA Estrada [place] 1538) [address] POCT-GLUCOSE [id number] 12:37:00 Test Item Value Reference Range Interpretation Comments POC-GLUCOSE METER 167 mg/dL 70-110 H TESTED AT [facility] 6720 (BEAKER) (test code = [facility] Sean [place] 1538) 9[address] POCT-GLUCOSE [id number] 07:22:00 Test Item Value Reference Range Interpretation Comments POC-GLUCOSE METER 139 mg/dL 70-110 H TESTED AT [facility] 6720 (BEAKER) (test code = [facility] Sean [place] 1538) [address] [id number] 04:10:00 Test Item Value Reference Range Interpretation Comments PHOSPHORUS (BEAKER) (test code = 4.5 mg/dL 2.3-4.7 604) [id number] 04:10:00 Test Item Value Reference Range Interpretation Comments MAGNESIUM (BEAKER) (test code = 2.2 mg/dL 1.6-2.6 627) BASIC METABOLIC [id number] 04:10:00 Test Item Value Reference Range Interpretation [...] 697) EGFR (BEAKER) (test 65 mL/min/1.73 ESTIMA ELVA GFR IS code = 1092) sq m NOT ACCURATE CREATININE CLEARANCE IN PREDICTING GLOMERULAR FILTRATION RATE . ESTIMATED GFR I S NOT APPLICABLE FOR DIALYSIS PATIEN TS. CBC W/PLT COUNT & AUTO [id number] 03:50:00 Test Item Value Reference Range Interpretation [...] PERCENT (BEAKER) (test code = 2801) POCT-GLUCOSE [id number] 03:50:00 Test Item Value Reference Range Interpretation Comments POC-GLUCOSE METER 170 mg/dL 70-110 H TESTED AT [place] [address] ([facility]) (test code = [facility] 1538) 58121 [id number] 00:16:00 Test Item Value Reference Range Interpretation Comments PARTIAL THROMBOPLASTIN TIME 31.8 seconds 22.5-36.0 ([facility]) (test code = 760) 6 hours after starting heparin infusion and as indicated per sliding scaleFL, ESOPH, SWALLOW FUNCTION, WITH CINE OR [id number] 18:01:00Reason for exam:->CVAFINAL REPORT Modified barium swallow [...] Chanel Verified Date/Time: 09/19/2018 18:01:02 Reading Location: [address] Consult Reading Room POCT-GLUCOSE [id number] 17:20:00 Test Item Value Reference Range Interpretation Comments POC-GLUCOSE METER 265 mg/dL 70-110 H TESTED AT [facility] 67 ([facility]) (test code = [facility] 1538) 57104 [id number] 16:49:00 Test Item Value Reference Range Interpretation Comments PARTIAL THROMBOPLASTIN TIME 29.3 seconds 22.5-36.0 ([facility]) (test code = 760) Prior to initiating heparinCBC W/PLT COUNT & AUTO [id number] 16:45:00 Test Item Value Reference Range Interpretation [...] PERCENT (BEAKER) (test code = 2801) POCT-GLUCOSE [id number] 15:03:00 Test Item Value Reference Range Interpretation Comments POC-GLUCOSE METER 261 mg/dL 70-110 H TESTED AT [facility] 6720 (BEAKER) (test code = BRISSA Estrada [place] 1538) [address] POCT-GLUCOSE [id number] 08:35:00 Test Item Value Reference Range Interpretation Comments POC-GLUCOSE METER 266 mg/dL 70-110 H TESTED AT [facility] 6720 (BEAKER) (test code = BRISSA Estrada [place] 1538) [address] [id number] 07:15:00 Test Item Value Reference Range Interpretation Comments PHOSPHORUS (BEAKER) (test code = 4.5 mg/dL 2.3-4.7 604) [id number] 07:15:00 Test Item Value Reference Range Interpretation Comments MAGNESIUM (BEAKER) (test code = 2.2 mg/dL 1.6-2.6 627) BASIC METABOLIC [id number] 07:15:00 Test Item Value Reference Range Interpretation [...] 697) EGFR (BEAKER) (test 61 mL/min/1.73 ESTIMA ELVA GFR IS code = 1092) sq m NOT ACCURATE CREATININE CLEARANCE IN PREDICTING GLOMERULAR FILTRATION RATE . ESTIMATED GFR I S NOT APPLICABLE FOR DIALYSIS PATIERENDIRA TS. CBC W/PLT COUNT & AUTO [id number] 06:58:00 Test Item Value Reference Range Interpretation [...] PERCENT (BEAKER) (test code = 2801) POCT-GLUCOSE [id number] 23:26:00 Test Item Value Reference Range Interpretation Comments POC-GLUCOSE METER 190 mg/dL 70-110 H TESTED AT [facility] 6720 (BEAKER) (test code = BRISSA Estrada [place] 1538) [address] POCT-GLUCOSE [id number] 06:41:00 Test Item Value Reference Range Interpretation Comments POC-GLUCOSE METER 158 mg/dL 70-110 H TESTED AT [facility] 6720 (BEAKER) (test code = BRISSA Estrada [place] 1538) [address] [id number] 04:33:00 Test Item Value Reference Range Interpretation Comments PHOSPHORUS (BEAKER) (test code = 4.8 mg/dL 2.3-4.7 H 604) [id number] 04:33:00 Test Item Value Reference Range Interpretation Comments MAGNESIUM (BEAKER) (test code = 2.1 mg/dL 1.6-2.6 627) BASIC METABOLIC [id number] 04:33:00 Test Item Value Reference Range Interpretation [...] 697) EGFR (BEAKER) (test 58 mL/min/1.73 ESTIMA ELVA GFR IS code = 1092) sq m NOT ACCURATE CREATININE CLEARANCE IN PREDICTING GLOMERULAR FILTRATION RATE . ESTIMATED GFR I S NOT APPLICABLE FOR DIALYSIS PATIEN TS. CBC W/PLT COUNT & AUTO [id number] 04:14:00 Test Item Value Reference Range Interpretation [...] PERCENT (BEAKER) (test code = 2801) POCT-GLUCOSE [id number] 00:24:00 Test Item Value Reference Range Interpretation Comments POC-GLUCOSE METER 216 mg/dL 70-110 H TESTED AT [facility] 6720 [facility] (test code = BRISSA Estrada [facility] 1538) 8[address]68 POCT-GLUCOSE [id number] 20:48:00 Test Item Value Reference Range Interpretation Comments POC-GLUCOSE METER 276 mg/dL 70-110 H TESTED AT [facility] 6720 ([facility]) (test code = BRISSA Estrada [facility] 1538) 52040 POCT-GLUCOSE [id number] 11:39:00 Test Item Value Reference Range Interpretation Comments POC-GLUCOSE METER 188 mg/dL 70-110 H TESTED AT [facility] 6720 ([facility]) (test code = BRISSA Estrada [facility] 1538) 17693 RAD, ABDOMEN/KUB, 1 VIEW [id number] 09:12:00Reason for exam:->Ng tubeFINAL REPORT Abdomen , one view History: Nasogastric tube Comparison:none Findings:Nonobstructive bowel gas pattern. No pneumoperitoneum. Nasogastric tube terminates within the stomach. No definite bowel pneumatosis or portal venous gas. Impression:Nasogastric tube terminates within the stomach. Signed: Jason Mistry MDReport Verified Date/Time: 09/17/2018 09:12:57 Reading Location: [address] Consult Reading Room [id number] 07:40:00 Test Item Value Reference Range Interpretation Comments PHOSPHORUS (BEAKER) (test code = 3.9 mg/dL 2.3-4.7 604) [id number] 07:40:00 Test Item Value Reference Range Interpretation Comments MAGNESIUM (BEAKER) (test code = 1.8 mg/dL 1.6-2.6 627) BASIC METABOLIC [id number] 07:40:00 Test Item Value Reference Range Interpretation [...] 697) EGFR (BEAKER) (test 65 mL/min/1.73 ESTIMA ELVA GFR IS code = 1092) sq m NOT ACCURATE CREATININE CLEARANCE IN PREDICTING GLOMERULAR FILTRATION RATE . ESTIMATED GFR I S NOT APPLICABLE FOR DIALYSIS PATIEN TS. CBC W/PLT COUNT & AUTO [id number] 07:27:00 Test Item Value Reference Range Interpretation [...] PERCENT (BEAKER) (test code = 2801) POCT-GLUCOSE [id number] 06:48:00 Test Item Value Reference Range Interpretation Comments POC-GLUCOSE METER 160 mg/dL 70-110 H TESTED AT [facility] 6720 [facility] (test code = BRISSA Estrada [facility] 1538) 7[address] POCT-GLUCOSE [id number] 00:56:00 Test Item Value Reference Range Interpretation Comments POC-GLUCOSE METER 169 mg/dL 70-110 H TESTED AT [facility] 6720 ([facility]) (test code = [facility] Sean [facility] 1538) [address] NV, ANGIOGRAM, [id number] 17:55:00Reason for exam:->strokeFINAL REPORT DATE: 09/14/2018 ATTENDING: Haroon Montoya MD [employer] TECHNICIAN: PREOPERATIVE DIAGNOSIS: Acute right middle cerebral artery Stroke, Large Vessel Intracranial Occlusion POSTOPERATIVE DIAGNOSIS: Acute right middle cerebral artery Stroke, Large Vessel Intracranial Occlusion PROCEDURE PERFORMED: 1. Diagnostic Angiogram2. Right M1 MCA Mechanical Thrombectomy with Stentriever, flow reversal and local clot aspiration ANESTHESIA: MAC COMPLICATIONS: None ESTIMATED BLOOD LOSS:Less than 15ml VESSELS STUDIED:*Right common carotid artery x 1*Right internal carotid artery x 5*Right common femoral artery x1 MATERIALS EMPLOYED:1. Flowgate long sheath2. Catalyst 6 distal access catheter3. Velocity microcatheter4. Synchro standard microwire5. Embotrap 5mm x 33mm Stentriever 6. 8FrAngioseal INDICATIONS:The patient is a 67 year old [...] the puncture site was confirmed, a 8 Erit[place]an short sheath was insertedover a Gameriusson wire and was maintained on heparinized saline flush throughout the remainder of the procedure. Using coaxial technique, a preflushed 5 E[place]an 125cm diagnostic glide catheter on constant heparinized saline flush was placed through a pre-flushed and pre- prepped 8 [place]an Flowgate balloon Guide catheter. The two catheters [...] was occlusive in the internal carotid, the assistant to the ceo pulled suction through the lumen of the [...] removed and hemostasis achieved with an 8 E[place]an Angioseal and manual compression. The patient tolerated [...] complete resolution of the intravascular thrombus and voodoo of flow to the distal MCA branches [...] MDReport Verified Date/Time: 09/16/2018 17:55:16 Reading Location: [facility] Y026 Neuro Angio Reading Room POCT-GLUCOSE [id number] 17:45:00 Test Item Value Reference Range Interpretation Comments POC-GLUCOSE METER 153 mg/dL 70-110 H TESTED AT [place] [address] (BEAKER) (test code = [place] 1538) [address] POCT-GLUCOSE [id number] 12:08:00 Test Item Value Reference Range Interpretation Comments POC-GLUCOSE METER 166 mg/dL 70-110 H TESTED AT [facility] 6720 (BEAKER) (test code = BRISSA Estrada [facility] 1538) [address] POCT-GLUCOSE [id number] 06:23:00 Test Item Value Reference Range Interpretation Comments POC-GLUCOSE METER 156 mg/dL 70-110 H TESTED AT [facility] 6720 (BEAKER) (test code = BRISSA Estrada [facility] 1538) 12[address] [id number] 05:01:00 Test Item Value Reference Range Interpretation Comments PARTIAL THROMBOPLASTIN TIME 32.5 seconds 22.5-36.0 (BEAKER) (test code = 760) [id number] 04:20:00 Test Item Value Reference Range Interpretation Comments MAGNESIUM (BEAKER) 2.0 mg/dL 1.6-2.6 Specimen moderately (test code = 627) hemolyzed [id number] 04:20:00 Test Item Value Reference Range Interpretation Comments PHOSPHORUS (BEAKER) 2.9 mg/dL 2.3-4.7 Specimen moderately (test code = 604) hemolyzed BASIC METABOLIC [id number] 04:20:00 Test Item Value Reference Range Interpretation [...] 697) EGFR (BEAKER) (test 71 mL/min/1.73 ESTIMA ELVA GFR IS code = 1092) sq m NOT ACCURATE CREATININE CLEARANCE IN PREDICTING GLOMERULAR FILTRATION RATE . ESTIMATED GFR I S NOT APPLICABLE FOR DIALYSIS PATIEN TS. CBC W/PLT COUNT & AUTO [id number] 04:06:00 Test Item Value Reference Range Interpretation [...] EOSINOPHILS ABSOLUTE COUNT 0.11 K/ L 0.04-0.54 (AKER) (test code = 416) BASOPHILS ABSOLUTE COUNT (AKER) 0.03 K/ L 0.01-0.08 (test code = 417) IMMATURE GRANULOCYTES-RELATIVE 0 % 0-1 PERCENT (AKER) (test code = 2801) [id number] 03:57:00 Test Item Value Reference Range Interpretation Comments FIBRINOGEN LEVEL ([facility]) (test 160 mg/dl 225-434 L code = 658) PROTHROMBIN [id number] 03:56:00 Test Item Value Reference Range Interpretation Comments PROTIME (AKER) (test code = 15.6 seconds 11.9-14.2 H 759) INR ([facility]) (test code = 370) 1.3 <=5.9 Effective 07/06/2018: PT Reference Range ChangeNew: 11.9-14.2 Previous: 11.7- 14.7RECOMMENDED COUMADIN/WARFARIN INR THERAPY RANGESSTANDARD DOSE: 2.0-3.0 Includes: PROPHYLAXIS for venous thrombosis, systemic embolization; TREATMENT for venous thrombosis and/or pulmonary embolus.HIGH RISK: Target INR is 2.5-3.5 for patients wiht mechanical heart valves.POCT-GLUCOSE [id number] 00:13:00 Test Item Value Reference Range Interpretation Comments POC-GLUCOSE METER 134 mg/dL 70-110 H TESTED AT [facility] [address] ([facility]) (test code = [place] 1538) [id number] 18:37:00 Test Item Value Reference Range Interpretation Comments D-DIMER QUANTITATIVE ([facility]) > MG/L FEU <0.50 H [...] Reference Range Interpretation Comments B-TYPE NATRIURETIC PEPTIDE ([facility]) 864 pg/mL 0-100 H (test code = 700) POCT-GLUCOSE [id number] 18:02:00 Test Item Value Reference Range Interpretation Comments POC-GLUCOSE METER 118 mg/dL 70-110 H TESTED AT [facility] [address] ([facility]) (test code = [place] 1538) [id number] 17:57:00 Test Item Value Reference Range Interpretation Comments FIBRINOGEN LEVEL ([facility]) (test 104 mg/dl 225-434 L code = 658) LACTATE DEHYDROGENASE ([facility])2018-09-15 17:56:00 Test Item Value Reference Range Interpretation Comments LACTATE DEHYDROGENASE (RAMSEY) (test 172 U/L 125-220 code = 635) [id number] 17:52:00 Test Item Value Reference Range Interpretation Comments PARTIAL THROMBOPLASTIN TIME 34.5 seconds 22.5-36.0 ([facility] (test code = 760) RAD, CHEST, 1 VIEW, NON [id number] 17:39:00Reason for exam:->HFShould this be performed at the bedside?->YesFINAL REPORT Chest dated 09/15/2018 Clinical Information: HF Comment: Heart is enlarged. Pulmonary vasculature is indistinct. Interstitial disease is seen bilaterally suggestive of pulmonary edema. No pleural effusion or pneumothorax is seen. Impression: Congestive failure. Signed: Nik Webster Verified Date/Time: 09/15/2018 17:39:38 Reading Location: [address] Consult Reading Room TROPONIN [id number] 16:44:00 Test Item Value Reference Range Interpretation [...] acidosis, acute neurological disease, and persistent tachyarrhythmia.PROTHROMBIN TIME/[id number] 16:23:00 Test Item Value Reference Range Interpretation Comments PROTIME ([facility]) (test code = 16.8 seconds 11.9-14.2 H 759) INR ([facility]) (test code = 370) 1.4 <=5.9 Effective 07/06/2018: PT Reference Range ChangeNew: 11.9-14.2 Previous: 11.7- 14.7RECOMMENDED COUMADIN/WARFARIN INR THERAPY RANGESSTANDARD DOSE: 2.0-3.0 Includes: PROPHYLAXIS for venous thrombosis, systemic embolization; TREATMENT for venous thrombosis and/or pulmonary embolus.HIGH RISK: Target INR is 2.5-3.5 for patients wiht mechanical heart valves.POCT-GLUCOSE [id number] 12:56:00 Test Item Value Reference Range Interpretation Comments POC-GLUCOSE METER 135 mg/dL 70-110 H TESTED AT [place] [address] ([facility]) (test code = BRISSA Estrada [facility] 1538) [id number] POCT-GLUCOSE [id number] 08:20:00 Test Item Value Reference Range Interpretation Comments POC-GLUCOSE METER 144 mg/dL 70-110 H TESTED AT [place] [address] ([facility]) (test code = BRISSA Estrada [facility] 1538) [id number] POCT-GLUCOSE [id number] 06:08:00 Test Item Value Reference Range Interpretation Comments POC-GLUCOSE METER 162 mg/dL 70-110 H TESTED AT [place] [address] ([facility]) (test code = BRISSA Estrada [facility] 1538) [id number] TROPONIN [id number] 03:48:00 Test Item Value Reference Range Interpretation Comments TROPONIN I ([facility]) (test code = 0.16 ng/mL [...] acute neurological disease, and persistent tachyarrhythmia.BASIC METABOLIC [id number] 03:29:00 Test Item Value Reference Range Interpretation [...] 697) EGFR (BEAKER) (test 65 mL/min/1.73 ESTIMA ELVA GFR IS code = 1092) sq m NOT ACCURATE CREATININE CLEARANCE IN PREDICTING GLOMERULAR FILTRATION RATE . ESTIMATED GFR I S NOT APPLICABLE FOR DIALYSIS PATIEN TS. CBC W/PLT COUNT & AUTO [id number] 03:08:00 Test Item Value Reference Range Interpretation [...] (test code = 2801) MR, BRAIN, WITHOUT [id number] 02:57:00Reason for exam:->strokeFINAL REPORT Exam: MRI brain [...] microvascular ischemic changes.Chronic bilateral cerebellar infarcts.Signed: Greta Hurtadoort Verified Date/Time: 09/15/2018 02:57:30 POCT-GLUCOSE METER 2018-09-15 00:23:00 Test Item Value Reference Range Interpretation Comments POC-GLUCOSE METER 127 mg/dL 70-110 H TESTED AT [place] [address] ([facility]) (test code = [place] [address]) [address] TROPONIN [id number] 17:00:00 Test Item Value Reference Range Interpretation Comments TROPONIN I ([facility]) (test code = 0.16 ng/mL [...] acidosis, acute neurological disease, and persistent tachyarrhythmia.POCT-GLUCOSE [id number] 16:29:00 Test Item Value Reference Range Interpretation Comments POC-GLUCOSE METER 204 mg/dL 70-110 H TESTED AT [place] [address] ([facility]) (test code = [facility] 1538) [address] POCT-GLUCOSE [id number] 14:11:00 Test Item Value Reference Range Interpretation Comments POC-GLUCOSE METER 230 mg/dL 70-110 H TESTED AT [place] [address] ([facility]) (test code = [facility] 1538) [address] TROPONIN [id number] 11:44:00 Test Item Value Reference Range Interpretation Comments TROPONIN I ([facility]) (test code = 0.11 ng/mL [...] failure, acidosis, acute neurological disease, and persistent tachyarrhythmia.[id number] 11:42:00 Test Item Value Reference Range Interpretation Comments RPR SCREEN (BEAKER) (test code = Nonreactive Nonreactive 420) HEMOGLOBIN [id number] 06:56:00 Test Item Value Reference Range Interpretation Comments HEMOGLOBIN A1C (BEAKER) (test code = 6.3 % 4.3-6.1 H 368) C-REACTIVE [id number] 04:38:00 Test Item Value Reference Range Interpretation Comments C-REACTIVE PROTEIN (BEAKER) (test 19.08 mg/dL 0.00-0.50 H code = 676) FastingLIPID [id number] 04:09:00 Test Item Value Reference Range Interpretation Comments TRIGLYCERIDES (BEAKER) (test code = 101 mg/dL 540) CHOLESTEROL (BEAKER) (test code = 240 mg/dL 631) HDL CHOLESTEROL (BEAKER) (test code 46 mg/dL = 976) LDL CHOLESTEROL CALCULATED (BEAKER) 174 mg/dL (test code = 633) Triglyceride Reference Range: Low Risk <150 Borderline 150-199 High Risk 200- 499 Very High Risk >=500Cholesterol Reference Range: Low Risk <200 Borderline 200-239 High Risk >240HDL Cholesterol Reference Range: Low Risk >=60 High Risk <40LDL Cholesterol Reference Range: Optimal <100 Near Optimal 100-129 Borderline 130-159 High 160-189 Very High >=190 FastingBASIC METABOLIC [id number] 04:09:00 Test Item Value Reference Range Interpretation [...] 697) EGFR (BEAKER) (test 68 mL/min/1.73 ESTIMA ELVA GFR IS code = 1092) sq m NOT ACCURATE CREATININE CLEARANCE IN PREDICTING GLOMERULAR FILTRATION RATE . ESTIMATED GFR I S NOT APPLICABLE FOR DIALYSIS PATIEN TS. FastingHEPATIC FUNCTION [id number] 04:09:00 Test Item Value Reference Range Interpretation [...] 9 U/L 6-55 347) FastingTSH/FREE T4 IF [id number] 03:38:00 Test Item Value Reference Range Interpretation Comments THYROID STIMULATING HORMONE 1.68 uIU/mL 0.35-4.94 (BEAKER) (test code = 772) VITAMIN B12 AND [id number] 03:38:00 Test Item Value Reference Range Interpretation Comments VITAMIN B12 (BEAKER) (test code = 853 pg/mL 213-816 H 774) FOLATE (BEAKER) (test code = 362) 12.9 ng/mL >=7.0 PT/[id number] 03:05:00 Test Item Value Reference Range Interpretation [...] 2.5-3.5 for patients wiht mechanical heart valves.PROTHROMBIN TIME/[id number] 03:04:00 Test Item Value Reference Range Interpretation [...] mechanical heart valves.CBC W/PLT COUNT & AUTO [id number] 03:02:00 Test Item Value Reference Range Interpretation [...] PERCENT (BEAKER) (test code = 2801) CT, [facility] [id number] 02:29:00Reason for exam:->strokeFINAL REPORT CLINICAL HISTORY: StrokeIschemic [...] Signed: Miryam Paulson Verified Date/Time: 09/14/2018 02:29:06 CT, CAROTID, ANGIO 2018-09-14 02:29:00Reason for exam:->Ischemic Stroke [...] Signed: Miryam Paulson Verified Date/Time: 09/14/2018 02:29:06 [facility], CEREBRAL PERFUSION [id number] 02:29:00Reason for exam:->Symptom onset less than 6 [...] Bilateral posterior cerebral arteries are patent. The tool repair technician ior communicating arteries are not identified on [...] on 09/14/2018 2:00 AM. Signed: Miryam Paulson MDReport Verified Date/Time: 09/14/2018 02:29:06 History and Physical Notes Date/Time Note Provider Source 2022-07-24 18:55:00-00:00 Diana Katz MD: Min VILLALOBOS [facility] Display: History and PhysicalAuthored Date: [id number] and Physical Primary Team Name:Team Contact Info:PCP Contact info:Family contact info: Code Status: None Specified=FULL CODE History of Present Illness: Patient is a 71-year-old male with past medical history significant for CAD, four-vessel CABG, CHF status post AICD, A-fib on Eliquis, cardiac arrest, CVA, who presented initially to outside hospital via EMS after being found slumped over in a chair on driveway by the delivery person. Per EMS, patient was sitting with his head below his knees, and alert on their arrival and IV fluids started en route. Patient reports constant AICD firing for the last week with associated chest pain and palpitation. Patient also reports associated lightheadedness, generalized weakness and headache. Patient denies any loss of consciousness. Patient reports he was initially seen at [facility] and told that his defibrillator needed to be replaced. Work-up at the outside hospital noted NSTEMI with elevated high-sensitivity troponin of 1259. Patient was given a dose of therapeutic Lovenox and transferred for cardiology evaluation. Review of Systems: Complete 14 point review of systems obtained and negative other than what is mentioned in HPI. Problem List/Past Medical History: Ongoing No qualifying data Social History: Alcohol Current, Type Wine, Liquor. Frequency: 1-2 times per month. Electronic Cigarette/Vaping Electronic Cigarette Use: Never. Substance Abuse Use: None. Tobacco Use: Never smoker. Tobacco smoke exposure: None. Did the Patient Smoke Cigarettes Anytime During the Last 365 Days? No. Cessation Counseling Provided? No. Allergies: No Known Allergies Home Medications: No active home medications Physical Exam: Vitals and Measurements T: 97.6 F (Oral) HR: 83 (Peripheral) RR: 20 BP: 144/85 SpO2: 99% WT: 75 kg BMI: 22.42 General: Patient is no acute distress , A&O x 3Head: Normocephalic and atraumatic Eyes: PERRLA, EOMI, no icterusMouth: MMM, no erythema or exudateNeck: Supple, no JVDHeart: Normal rate and regular rhythm, no R/G/MLungs: Clear to auscultation, no W/R/RAbdomen - soft / NT/ND, + BSExt - no C/C/ENeuro: Cranial nerves grossly intact. No focal deficit. Pertinent Labs: (no lab data in past 24 hours) Pertinent Imaging: N/A Assessment/Plan: 1. Non-ST elevation [place] (NSTEMI) (I21.4) Ordered: Admit/Condition, 07/15/22 22:41:00 CDT, Status: Out Patient with Observation Services, Telemetry Capable Location, Expected LOS: 2 Midnights, Diana Katz MD, Admit MD Review/Approve Yes, Isolation: No Isolation/Standard Precautions, Non-ST elevation [place] (NSTEMI) 2. Pre-syncope (R55) 3. Altered mental status (R41.82) 4. CAD (coronary artery disease) (I25.10) Patient given a dose of Lovenox at outside hospital prior to transfer which should cover patient for tonight pending cardiology evaluation in the morningTrend troponinASA/statinFollow-up A1c, and lipid panelFollow-up echoTelemetryCardiology consultedPatient will need device interrogation Prophylaxis Lovenox Disposition Pending hospital Diana Orozco MDElectronically Signed: 07/16/22 07:40 Notes Date/Time Note Provider Source 2022-07-16 12:45:55-00:00 PROCEDURE INFORMATION: [facility] Exam: XR Chest Exam date and time: 07/16/2022 12:32 PM Age: 71 years old Clinical indication: /sob TECHNIQUE: Imaging protocol: Radiologic exam of the chest. Views: 1 view. COMPARISON: No relevant prior studies available. FINDINGS: Tubes, catheters and devices: Left chest pacemak er defibrillator device is demonstrated. Lungs: Questionable minimal central pulmonary ve nous congestion without pulmonary edema within the lungs. The peripheral lungs are otherwise clear. Pleural spaces: No pleural effusion. No pneumoth orax. Heart/Mediastinum: Cardiac silhouette appears mi ldly enlarged. Vasculature: Mild atherosclerotic calcif ication demonstrated within the aorta. Bones/joints: Sternotomy wires, hardware is demo nstrated. Diffusely severely decreased bone density. Limited sensitivity to d etect acute abnormalities. Moderate to severe generalized bony degenerative changes. IMPRESSION: 1. Mild enlarged cardiac silhouette. 2. Questionable minimal pulmonary venous congest ion. 3. Degenerative and postsurgical changes are dem onstrated, as described above. Burton Pearl MD On 07/16/2022 17:34:11; VR- [id number] 2021-12-15 11:45:00-00:00 EXAM: Abdomen complete US [facility] DATE: 12/15/2021 11:34. INDICATION: Leukopenia. COMPARISON: None available. TECHNIQUE: Multiplanar grayscale and color Doppl er ultrasound of the abdomen. FINDINGS: * Suboptimal evaluation due to the patient's lau ited mobility. LIVER * Craniocaudal length: 14.1 cm. * Echogenicity: Normal. * Surface nodularity: Normal. * Focal lesion: None. * Other: The left hepatic lobe is not well seen. GALLBLADDER * General comments: Normal. * Gallstones/polyps: None. * Gallbladder sludge: None. * Gallbladder wall: 0.2 cm. * Pericholecystic fluid: None. * Sonographic Betancourt sign: Absent. BILE DUCTS * Common bile duct diameter: 0.3 cm. * Intrahepatic ducts: Normal. PANCREAS * Not seen due to overlying bowel gas. SPLEEN * Craniocaudal length: 11.4 cm. * Focal lesion: None. RIGHT KIDNEY * Hydronephrosis: None. * Size: 10.8 x 5.1 x 5.1 cm. Cortical thickness = 1.4 cm. * Echogenicity: Unremarkable. * Mass/Stone/Cyst: None. LEFT KIDNEY * Hydronephrosis: None. * Size: 9.7 x 4.3 x 4.8 cm. Cortical thickness = 1.4 cm. * Echogenicity: Unremarkable. * Mass/Stone/Cyst: None. VESSELS AND FREE FLUID * Portal vein: Normal. * Abdominal aorta and IVC: T he visible portions are without acute finding. Moderate plaque is partially imaged (image 33). * Ascites: None. IMPRESSION: 1. No abnormality is identif ied on this ultrasound of the abdomen to explain the patient's abnormal labs. 2. Limitations as above.
--- NOTE | 2022-08-05 11:43 | RAD REPORT ---
EXAM DESCRIPTION: [place] Single View08/05/2022 11:14 am CLINICAL HISTORY: Chest pain COMPARISON: July 15, 2022 FINDINGS: The lungs appear clear of acute infiltrate. The heart is mildly to moderately enlarged. P acemaker leads are in place. Postsurgical changes involve the chest IMPRESSION: No acute abnormalities displayed
[2022-08-05 11:56] LABS: Absolute Lymphocytes (CBC) 0.5 K/uL (0.7-4.9); Hematocrit 36.4 % (39.6-49.0); Lymphocytes % 13.1 % (15.3-44.8); MCV 90.3 fL (80-100); MPV 8.3 fL (7.6-11.3); RBC Red Blood Cell Count 4.04 M/uL (4.33-5.43)
[2022-08-05 12:18] LABS: Bilirubin Direct 0.2 mg/dL (0-0.2); Bilirubin Indirect, Calculated 0.3 mg/dL (0.2-0.8); Bilirubin Total 0.5 mg/dL (0.2-1.0); Magnesium 1.7 mg/dL (1.6-2.4); Potassium 3.9 mEq/L (3.5-5.1); Protein, Total 6.3 g/dL (6.4-8.2)
[2022-08-05 12:22] LABS: Troponin High Sensitivity 5731.4 pg/mL (<58.9)
[2022-08-05] MEDS ORDERED: ASPIRIN 81 MG CHEWABLE TABLET ONE (12:49)
[2022-08-05] MEDS ORDERED: ENOXAPARIN 80 MG/0.8 ML SQ ONE (12:50)
--- NOTE | 2022-08-05 12:54 | EDPHYS ---
Physician Documentation [facility] Name: Lamin Fitzpatrick III Age: 71 yrs Sex: Male : 1950 Arrival Date: 08/05/2022 Time: 10:17 Bed 20 Private MD: ED Physician Xavier Merritt HPI: 08/05 10:57 This 71 yrs old Male presents to ER via Carried with complaints of Chest Pain, trouble kdr w/pacemaker. Historical: - Allergies: 10:23 Allopurinol; iw 10:23 Alteplase; iw 10:23 Colchicine; iw - PMHx: 10:23 CAD; CVA; Chronic pain from gout; Gout; CHF; Atrial fibrillation; iw - PSHx: 10:23 pacemaker; iw - Immunization history:: Adult Immunizations up to date. - Social history:: Smoking status: unknown. ROS: 11:04 Constitutional: Negative for fever, chills, and weight loss, Eyes: Negative for injury, kdr pain, redness, and discharge, Neck: Negative for injury, pain, and swelling, Respiratory: Negative for shortness of breath, cough, wheezing, and pleuritic chest pain, Abdomen/GI: Negative for abdominal pain, nausea, vomiting, diarrhea, and constipation, Back: Negative for injury and pain, : Negative for injury, bleeding, discharge, and swelling, MS/Extremity: Negative for injury and deformity, Skin: Negative for injury, rash, and discoloration, Neuro: Negative for headache, weakness, numbness, tingling, and seizure activity. Psych: Negative for depression, anxiety, suicide ideation, homicidal ideation, and hallucinations, Allergy/Immunology: Negative for hives, rash, and allergies, Endocrine: Negative for neck swelling, polydipsia, polyuria, polyphagia, and marked weight changes, Hematologic/Lymphatic: Negative for swollen nodes, abnormal bleeding, and unusual bruising. 11:04 Cardiovascular: Positive for chest pain, Negative for edema, orthopnea, palpitations, paroxysmal nocturnal dyspnea. Exam: 11:04 Constitutional: This is a well developed, well nourished patient who is awake, alert, kdr and in no acute distress. Vital Signs: 10:24 Pulse 83; Resp 19; Pulse Ox 98% on R/A; Weight 77.11 kg; Height 6 ft. 0 in. ; Pain 8/10;iw 11:30 BP 116 / 72; Pulse 60; Resp 14 S; Pulse Ox 99% on R/A; eh3 12:30 BP 134 / 77; Pulse 87; Resp 16; Pulse Ox 99% on R/A; eh3 13:30 BP 129 / 74; Pulse 81; Resp 13; Pulse Ox 98% on R/A; eh3 14:30 BP 131 / 77; Pulse 79; Resp 17; Pulse Ox 99% on R/A; eh3 10:24 Body Mass Index 23.06 (77.11 kg, 182.88 cm) iw 10:24 Pain Scale: Adult iw MDM: 12:53 Patient medically screened. kdr 12:54 Data reviewed: vital signs, nurses notes, lab test result(s), radiologic studies. [facility] Management of patient was discussed with the following: transfer . 08/05 10:49 Order name: Basic Metabolic Panel; Complete Time: 12:24 [facility] 08/05 10:49 Order name: CBC with Diff; Complete Time: 12:24 [facility] 08/05 10:49 Order name: LFT's; Complete Time: 12:24 [facility] 08/05 10:49 Order name: Magnesium; Complete Time: 12:24 kdr 08/05 10:49 Order name: NT PRO-BNP; Complete Time: 12:24 [facility] 08/05 10:49 Order name: Troponin HS; Complete Time: 12:24 [facility] 08/05 10:49 Order name: XRAY Chest (1 view); Complete Time: 11:55 [facility] 08/05 10:49 Order name: EKG; Complete Time: 10:50 [facility] 08/05 10:49 Order name: Cardiac monitoring; Complete Time: 11:45 [facility] 08/05 10:49 Order name: EKG - Nurse/Tech; Complete Time: 10:55 kdr 08/05 10:49 Order name: IV Saline Lock; Complete Time: 11:45 [facility] 08/05 10:49 Order name: Labs collected and sent; Complete Time: 11:45 [facility] 08/05 10:49 Order name: O2 Per Protocol; Complete Time: 11:31 kdr 08/05 10:49 Order name: O2 Sat Monitoring; Complete Time: 11:31 kdr Administered Medications: 12:47 Drug: Enoxaparin Sub-Q 1 mg/kg Route: Sub-Q; Site: left lower abdomen; eh3 13:45 Follow up: Response: No adverse reaction eh3 12:47 Drug: Aspirin PO Chewable Tablet 324 mg Route: PO; eh3 13:45 Follow up: Response: No adverse reaction eh3 Disposition Summary: 08/05/22 12:53 Transfer Ordered Transfer Location: [facility] kdr Reason: Higher level of care kdr Condition: Fair kdr Problem: an acute exacerbation kdr Symptoms: have improved kdr Accepting Physician: Dr. Roche(08/05/22 15:31) mb9 Diagnosis - Subsequent non-ST elevation (NSTEMI) myocardial infarction kdr Forms: - Medication Reconciliation Form kdr - SBAR form kdr Signatures: Dispatcher [employer] EDMS Xavier Merritt MD MD kdr Mary Watson RN RN Michelle Montiel RN RN [facility] Siobhan Lobo RN RN mb9 Corrections: (The following items were deleted from the chart) 13:14 12:53 sdf kdr kdr 15:31 13:14 Dr. Roche kdr mb9
--- NOTE | 2022-08-05 12:54 | ER ---
Nurse's Notes [facility] Name: Lamin Fitzpatrick III Age: 71 yrs Sex: Male : 1950 Arrival Date: 08/05/2022 Time: 10:17 Bed 20 Private MD: Diagnosis: Subsequent non-ST elevation (NSTEMI) myocardial infarction Presentation: 08/05 10:22 Chief complaint: Patient states: my pacemaker is defective, the leads area making me iw shake my body, the leads broke away, wants to be transferred to [facility] in [place]. Coronavirus screen: At this time, the client does not indicate any symptoms associated with coronavirus-19. Ebola Screen: Patient negative for fever greater than or equal to 101.5 degrees Fahrenheit, and additional compatible Ebola Virus Disease symptoms Patient denies exposure to infectious person. Patient denies travel to an Ebola-affected area in the 21 days before illness onset. No symptoms or risks identified at this time. Initial Sepsis Screen: Does the patient meet any 2 criteria? No. Patient's initial sepsis screen is negative. Does the patient have a suspected source of infection? No. Patient's initial sepsis screen is negative. Risk Assessment: Do you want to hurt yourself or someone else? Patient reports no desire to harm self or others. Onset of symptoms was August 05, 2022. 10:22 Method Of Arrival: Carried iw 10:22 Acuity: JODIE 3 iw Historical: - Allergies: 10:23 Allopurinol; iw 10:23 Alteplase; iw 10:23 Colchicine; iw - PMHx: 10:23 CAD; CVA; Chronic pain from gout; Gout; CHF; Atrial fibrillation; iw - PSHx: 10:23 pacemaker; iw - Immunization history:: Adult Immunizations up to date. - Social history:: Smoking status: unknown. Screenin:30 [facility] ED Fall Risk Assessment (Adult) Score/Fall Risk Level 0 - 2 = Low Risk. Abuse eh3 screen: Denies threats or abuse. Denies injuries from another. Nutritional screening: No deficits noted. Tuberculosis screening: No symptoms or risk factors identified. Assessment: 10:30 General: Appears in no apparent distress. uncomfortable, Behavior is agitated. Pain: eh3 Complains of pain in chest Pain does not radiate. Pain began 1 hour ago. Neuro: Level of Consciousness is awake, alert, obeys commands, Oriented to person, place, time. Cardiovascular: Capillary refill < 3 seconds Patient's skin is warm and dry. Respiratory: Airway is patent Respiratory effort is even, unlabored, Respiratory pattern is regular, symmetrical. GI: Abdomen is round non-distended. Derm: Skin is pink, warm \T\ dry. Musculoskeletal: No signs and/or symptoms reported regarding the musculoskeletal system. 11:30 Reassessment: Patient appears in no apparent distress at this time. Patient and/or eh3 family updated on plan of care and expected duration. Pain level reassessed. Patient is alert, oriented x 3, equal unlabored respirations, skin warm/dry/pink. 11:35 Reassessment: Spoke with Maxx with [employer], pacemaker report shows no eh3 issues with pacemaker. Report printed and added to pt's paper chart. 12:30 Reassessment: Patient appears in no apparent distress at this time. Patient and/or eh3 family updated on plan of care and expected duration. Pain level reassessed. Patient is alert, oriented x 3, equal unlabored respirations, skin warm/dry/pink. 13:30 Reassessment: Patient appears in no apparent distress at this time. Patient and/or eh3 family updated on plan of care and expected duration. Pain level reassessed. Patient is alert, oriented x 3, equal unlabored respirations, skin warm/dry/pink. 13:44 Reassessment: Failed attempt to call nurse to nurse report to [place], nurse is busy. eh3 Will call back in 10 minutes. 13:57 Reassessment: Failed attempt to call nurse to nurse report to [place], first call was eh3 answered and then dropped. Called back and was never answered. 14:04 Reassessment: Spoke with Janet at [facility] about failed attempts to eh3 give report, Janet provided unit number and stated all nurses are busy providing patient care at this time. Will call back in 10 minutes. 14:15 Reassessment: Failed attempt to call nurse to nurse report to [place], no answer. eh3 14:29 Reassessment: Failed attempt to call nurse to nurse report to [place], She answered eh3 unit number and provided direct number to PATO Vinson. No answer calling Alisson. 14:30 Reassessment: Patient appears in no apparent distress at this time. Patient and/or eh3 family updated on plan of care and expected duration. Pain level reassessed. Patient is alert, oriented x 3, equal unlabored respirations, skin warm/dry/pink. 14:47 Reassessment: Nurse to nurse report received by Alisson at [place]. eh3 Vital Signs: 10:24 Pulse 83; Resp 19; Pulse Ox 98% on R/A; Weight 77.11 kg; Height 6 ft. 0 in. ; Pain 8/10;iw 11:30 BP 116 / 72; Pulse 60; Resp 14 S; Pulse Ox 99% on R/A; eh3 12:30 BP 134 / 77; Pulse 87; Resp 16; Pulse Ox 99% on R/A; eh3 13:30 BP 129 / 74; Pulse 81; Resp 13; Pulse Ox 98% on R/A; eh3 14:30 BP 131 / 77; Pulse 79; Resp 17; Pulse Ox 99% on R/A; eh3 10:24 Body Mass Index 23.06 (77.11 kg, 182.88 cm) iw 10:24 Pain Scale: Adult iw ED Course: 10:19 Patient arrived in ED. am2 10:19 Xavier Merritt MD is Attending Physician. kdr 10:23 Triage completed. iw 10:24 Arm band placed on. iw 10:29 Michelle Montiel, RN is Primary Nurse. eh3 10:30 Patient has correct armband on for positive identification. Bed in low position. Call eh3 light in reach. Side rails up X2. Client placed on continuous cardiac and pulse oximetry monitoring. NIBP monitoring applied. Door closed. Noise minimized. 10:30 Patient maintains SpO2 saturation greater than 95% on room air. eh3 10:52 contacted [employer] to have device interrogated; they will page local rep to em1 come by. 11:16 XRAY Chest (1 view) In Process Unspecified. EDMS 11:44 Inserted saline lock: 20 gauge in right forearm, using aseptic technique. Blood eh3 collected. Completed by [facility] staff. 12:22 Notified ED physician of a critical lab result(s). Troponin - 5731.4. eh3 Administered Medications: 12:47 Drug: Enoxaparin Sub-Q 1 mg/kg Route: Sub-Q; Site: left lower abdomen; eh3 13:45 Follow up: Response: No adverse reaction [facility] 12:47 Drug: Aspirin PO Chewable Tablet 324 mg Route: PO; [facility] 13:45 Follow up: Response: No adverse reaction [facility] Outcome: 12:53 ER care complete, transfer ordered by . kdr 15:31 Patient left the ED. mb9 Signatures: Dispatcher [employer] EDMS Xavier Merritt MD MD kdr Mary Watson, RN Lencho Gar em1 Chelo Nelson am2 Michelle Montiel RN RN 3 Merced Sage RN RN kc6 Siobhan Lobo RN RN mb9 Corrections: (The following items were deleted from the chart) 12:16 11:45 BP 116 / 72; Pulse 60bpm; Resp 14bpm; Spontaneous; Pulse Ox 99% RA; kc6 [facility] 14:02 13:44 Reassessment: Failed attempt to call nurse to nurse report to [facility], [facility] nurse is busy. Will call back in 10 minutes [facility]
[2022-08-05 16:08] VITALS: BP 131/77; O2SAT 99
--- NOTE | 2022-08-06 12:37 | EKG ---
Test Date: 2022-08-05 Test Time: 10:42:15 Machinist/Machine Builder: SHARON MEASUREMENT RESULTS: Intervals: Rate: 89 [place]: 128 QRSD: 178 QT: 454 QTc: 552 [place]: P: 63 [place]: 128 QRS: 197 T: -17 INTERPRETIVE STATEMENTS: Electronic ventricular pacemaker Compared to ECG 07/15/2022 16:50:51 No significant changes Electronically Signed On 08-06-22 12:35:05 CDT by Ramos Michelle
== END 2022-08-05 15:31 | disposition short-term general hospital (02) ==
LOC: ER 10:17
DX: I22.2 Subsequent non-ST elevation (NSTEMI) myocardial infarction (principal); I21.9 Acute myocardial infarction, unspecified; I50.9 Heart failure, unspecified; I48.91 Unspecified atrial fibrillation; Z95.0 Presence of cardiac pacemaker; Z88.8 Allergy status to other drugs, medicaments and biological substances
CPT/HCPCS: 36415; 71045; 80048; 80076; 83735; 83880; 84484; 85025; 93005; 96372; 99284

== ENCOUNTER 2022-08-16 06:18 | Emergency (ER) | payer OTHER ==
--- OUTSIDE RECORDS SUMMARY | 2022-08-16 06:41 | XMS REPORT | Continuity of Care Document ---
:1950 Author Organization [facility] t Address [address] [place] [address] [address] [place] [address] Care Team Providers Name Role Phone No, Pcp [facility] Primary Care Physician Unavailable DESTINY SANDY Attending Clinician Unavailable SHIRA BRANCH Attending Clinician Unavailable SHIRA BRANCH Attending Clinician Unavailable SANJUANA FIORE Attending Clinician Unavailable SANJUANA FIORE Attending Clinician Unavailable Michele Meraz MD Attending Clinician Destiny Sandy MD Attending Clinician CRISTAL DUNN Attending Clinician Unavailable ADY TUCKER Attending Clinician Unavailable MICHELE MERAZ Attending Clinician Unavailable Bereket WHYTE, Sarai Nichols Attending Clinician Unavailable Dino Baker MD Attending Clinician Jim MELENDEZ, Logan Quezada Attending Clinician DINO BAKER Attending Clinician Unavailable Lab, Ang - Db Attending Clinician Unavailable Doctor Unassigned, [place] Attending Clinician Unavailable Dylan Gaona MD Attending Clinician [phone] CYNTHIAISABELLA Attending Clinician Unavailable Cynthia STEPHENBSIsabella Attending Clinician [phone], [facility] Attending Clinician Unavailable Burton Garcia MD Attending Clinician BURTON GARCIA Attending Clinician Unavailable Dirk PRINTS AND DRAWINGS CURATOR, Anil Attending Clinician ANIL STACY Attending Clinician Unavailable Citlaly David RN Attending Clinician Unavailable Moreno Dee MD Attending Clinician CHELO BARBA Attending Clinician Unavailable Jameson MELENDEZ, Chelo Attending Clinician Kayla PRINTS AND DRAWINGS CURATOR, Henrry Attending Clinician Valentin KEARNEYP, Arden Attending Clinician ARDEN PILLAI Attending Clinician Unavailable Kody PRINTS AND DRAWINGS CURATOR, Karmen Attending Clinician Zuri Avalos Attending Clinician ZURI COLEMAN Attending Clinician Unavailable Jude Sutton Attending Clinician JUDE ROSS Attending Clinician Unavailable Nik Vargas MD Attending Clinician NIK VARGAS Attending Clinician Unavailable MORENO DEE Attending Clinician Unavailable Mariela Petit Attending Clinician Pat Dee MD Attending Clinician PAT DEE Attending Clinician Unavailable [facility] Attending Clinician AMANDA BUTLER Attending Clinician Unavailable Chepe Dubois DO Attending Clinician ERIC AVINA Attending Clinician Unavailable CHEPE DUBOIS Attending Clinician Unavailable JESUS ARCHER Attending Clinician Unavailable ZENY QUICK Attending Clinician Unavailable RAHDA LAWSON Attending Clinician Unavailable MALIA CAMPA Admitting Clinician Unavailable JOSE NORRIS Admitting Clinician Unavailable Logan Fernandez MD Admitting Clinician LOGAN FERNANDEZ NOE Admitting Clinician Unavailable MICHELE MERAZ Admitting Clinician Unavailable Michele Meraz MD Admitting Clinician DESTINY SANDY Admitting Clinician Unavailable ZENY QUICK Admitting Clinician Unavailable RADHA LAWSON Admitting Clinician Unavailable Payers Payer Name Policy Type Policy Number Effective Date Expiration Date S kylah [facility] WELLMED [id number] 2021 00:00:00 WELLMED/[facility] DUAL [id number] 2021 COMP HMO D SNP 00:00:00 [facility] [id number] 2022 PLUS 00:00:00 MEDICAID [facility] [id number] 2019 00:00:00 Problems Condition Condition Condition Status Onset Resolution Last Treating Co mments Source Name Details Category Date Date Treatment Clinician Date NSTEMI NSTEMI Diagnosis Active 2022-07-17 Me moria Active 07-15 07:30:00 l 07/15/2022 00:00: [address] NSTEMI, NSTEMI, Diagnosis Active 2022-07-30 Memoria AICD, CP, AICD, CP, 07-15 21:49:00 l PRE-SYNCOP PRE-SYNCOP 00:00: He rmann E, AMS, E, AMS, 00 CAD, CAD, Active 07/15/2022 [facility] Paranoia Paranoia Disease Active Unive rs 6-03 ity of 00:00: [place] 00 Medical Branch LBBB (left LBBB (left Disease Active Overview : Univers bundle bundle 2-22 Formattin ity of branch branch 00:00: g of this [place] block) block) 00 note Medical might be Branch different from the original. Added automatic ally from request for surgery [id number] PAF PAF Disease Active Univers (paroxysma (paroxysma -23 it y of l atrial l atrial 00:00: [place] fibrillati fibrillati 00 Me dical on) on) Branch Folliculit Folliculit Disease Active U nivers is is 1-25 ity of 00:00: [place] 00 Medical Branch Abrasion Abrasion Disease Active Unive [...] nivers ubinemia ubinemia 1-24 ity of 00:00: [place] [facility] Prediabete Prediabete Disease Active 2019- U nivers s s 2-27 ity of 00:00: [place] Medical [facility] Left Left Disease Active 2019-02 Univers hemiplegia hemiplegia 2-21 it y of 00:00: [place] Medical [facility] Coronary Coronary Disease Active Unive rs artery artery 5-05 ity of disease disease 00:00: [place] involving involving 00 Medi ralph [place] Branch coronary coronary artery of artery of [place] heart with heart with angina angina pectoris pectoris Coronary Coronary Disease Active Unive rs artery artery 5-05 ity of disease disease 00:00: [place] involving involving 00 Medi ralph [place] Branch coronary coronary artery of artery of [place] heart with heart with angina angina pectoris pectoris Essential Essential Disease Active Uni vers hypertensi hypertensi 5-05 it y of on on 00:00: [place] 00 Medical Branch 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 5-05 ity of multiple multiple 00:00: [place] sites sites 00 Medical Branch Hyperchole Hyperchole Disease Active 2019- U nivers sterolemia sterolemia 5-05 it y of 00:00: [place] 00 Medical Branch Unspecifie Unspecifie Disease Active 2019- U nivers d 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 00:00: [place] (congestiv (congestiv 00 Me dical e) and e) and Branch diastolic diastolic (congestiv (congestiv e) heart e) heart failure failure History of History of Disease Active U nivers ischemic ischemic 8-07 ity of stroke stroke 00:00: [place] 00 Medical Branch Acute Acute Disease Recurre [facility] stroke stroke [facility] Medical [facility] Center Received Received Disease [facility] plasminoge plasminoge 00:00: Me dical n n 00 Center activator activator (t-PA) (t-PA) less than less than 24 hours 24 hours prior to prior to arrival arrival THIRD THIRD Diagnosis Active 2018-09-14 Mem oria LIBERTARIAN LIBERTARIAN 09-14 14:59:00 l BILLING BILLING 00:00: [place] Active 00 09/14/2018 [facility] Chronic Chronic Problem Active 2022-07-27 Me moria systolic systolic 09:44:29 l heart heart [place] failure failure (disorder) (disorder) Active Problem 07/27/2022 [facility] NON-ST NON-ST Diagnosis Active 2022-07-30 Me moria ELEVATION ELEVATION 21:49:00 l (NSTEMI) (NSTEMI) Benigno knox MYOCARDIAL MYOCARDIAL INF INF Active [facility] D72.818 - D72.818 Diagnosis Active 2021-12-15 Memoria OTHER - OTHER 11:42:00 l DECREASED DECREASED Herm francy WHITE WHITE BLOOD CE BLOOD CE Active [facility] ENCNTR FOR ENCNTR Diagnosis Active 2022-07-30 Memoria ADJUST AND FOR ADJUST 21:49:00 l MGMT OF AND MGMT [place] AUTOMATIC OF AUTOMATIC Active [facility] CHEST CHEST Diagnosis Active 2022-07-30 Mem oria PAIN, PAIN, 21:49:00 l UNSPECIFIE UNSPECIFIE He rmann D D Active [facility] SINGLE SINGLE Diagnosis Active 2022-07-17 Me moria LIVEBORN LIVEBORN 15:34:00 l INFANT, INFANT, [place] DELIVERED DELIVERED BY ABIGAIL BY ABIGAIL Active [facility] Non-ST Non-ST Problem 2022-07-27 Mem oria elevation elevation 09:44:29 l (NSTEMI) (NSTEMI) Benigno knox myocardial myocardial infarction infarction 07/27/2022 [facility] Allergies, Adverse Reactions, Alerts Allergy Allergy Status Severity Reaction(s) Onset Inactive Treating Comm ents Source Name Type Date Date Clinician SHELLFIS DRUG Active Med Unknown-Cmnt 2021-02 Un marcie H INGREDI 0-10 ity of DERIVED 00:00: [place] [id number] Medical Branch Shellfis Drug Active Unknown - [...] ers NOL INGREDI 7-20 ity of 00:00: 00 Medical Branch COLCHICI DRUG Active Other-Cmnt [...] comments 7-20 function ity o f 00:00: 00 Medical Branch Iodine Propensi Active Unknown [...] s ALTEPLAS DRUG Active Unknown-Cmnt 2019-0 Un amrcie E INGREDI 8-07 ity of 00:00: [place] 00 Medical Branch allopuri allopuri Active Memori a nol nol l [place] colchici colchici Active Memori a ne ne l [place] Family History Family Member Diagnosis Comments Start Date Stop Date Source [facility] Social History Social Habit Start Date Stop Date Quantity Comments Source History SDOH Social Unive rsity of Connections Get [place] Med ical Together Branch History SDOH Social Unive rsity of Connections [facility] [place] [facility] History SDOH Social Unive rsity of Connections [place] Medical Membership Branch History SDOH Social Unive rsity of Connections [place] Medical Meetings Branch Social History 2022-07-16 2022-07-16 [facility] Armando sánchez 02:22:42 02:22:42 History SDOH Social 2022-07-13 2022-07-13 5 Unive rsity of Connections Phone 00:00:00 00:00:00 [facility] edical Branch History SDOH Social 2022-07-13 2022-07-13 7 Unive rsity of Connections Living 00:00:00 00:00:00 [place] [facility] History SDOH 2022-07-13 2022-07-13 4 University o f Physical Activity 00:00:00 00:00:00 [place] M edical DPW Branch History SDOH 2022-07-13 [...] 00:00:00 00:00:00 [place] Medic al Branch History SDOH 2022-07-13 2022-07-13 2 University o f Transport Non-Med 00:00:00 00:00:00 [place] M edical Branch History SDOH 2022-07-13 2022-07-13 2 University o f Housing Unable to 00:00:00 00:00:00 [place] M edical Pay Branch History [facility] 2022-07-13 2022-07-13 1 University o f Housing Places 00:00:00 00:00:00 [place] Medi ralph Lived Branch History [facility] 2022-07-13 2022-07-13 2 University o f Housing Homeless 00:00:00 00:00:00 [place] Me dical Last Year Branch Tobacco use and 2022-07-11 2022-07-11 Smokeless Universit y of exposure 00:00:00 00:00:00 tobacco non-user [facility] dical Branch Exposure to 2022-06-15 2022-06-25 Not sure [facility] SARS-CoV-2 (event) 00:00:00 14:15:00 [facility] Alcohol intake 2018-09-20 2018-09-20 [facility] of alcohol Medical Center (finding) History [facility] 2018-09-14 2018-09-[address] [facility] Alcohol Frequency 00:00:00 00:00:00 Medical Center History [facility] 2018-09-14 2018-09-[address] [facility] Alcohol Std Drinks 00:00:00 00:00:00 Medica l Center History [facility] 2018-09-14 2018-09-[address] [facility] Alcohol Binge 00:00:00 00:00:[address] Sex Assigned At [address] [facility] 00:[facility] 00[facility]00 Medical Center Smoking Status Start Date Stop Date Source Never smoked tobacco [facility] Medications Ordered Filled Start Stop Current Ordering Indication Dosage Frequency Signature Comments Components Source Medication Medication Date Date Medication? Clinician (SIG) Name Name atorvastati Yes 80 mg = 2 M emoria n 40 mg 6-13 tab, PO, l oral tablet 16:10: Bedtime, # Nilo 00 60 tab, 1 Refill(s), Pharmacy: [facility] #[id number], 182.88, cm, 07/16/22 18:26:00 CDT, Height, 75, kg, 07/16/22 18:26:00 CDT, Weight QUEtiapine Yes 50 mg = 2 Me moria 25 mg oral 6-13 tab, PO, l tablet 16:10: Bedtime, # Taisha nn 00 60 tab, 1 Refill(s), Pharmacy: [facility] #[id number], 182.88, cm, 07/16/22 18:26:00 CDT, Height, 75, kg, 07/16/22 18:26:00 CDT, Weight SEROquel No Notes: Memoria 6-13 (Same as: l 02:00: SEROquel) Crestor No 10 mg, 1 Memori a 6-11 tab, l 02:00: Route: PO, Drug form: TAB, Bedtime, Dosing Weight 75, kg, Start date: 07/18/22 21:00:00 CDT, Duration: 30 day, Stop date: 08/16/22 21:00:00 CDT ezetimibe No Notes: Memori a 6-10 (Same as: l 22:00: Zetia) aspirin 81 Yes 81 mg = 1 Me moria mg tablet, 6-10 tab, PO, l chewable 14:56: Daily, 0 Taisha nn 00 Refill(s) Eliquis No Notes: Memoria 6-10 Same as: l 02:00: Eliquis potassium No /= 14 Memoria chloride 20 6-09 Cook Islander, l mEq oral 14:17: june, dissolve extended each 20 release mEq tablet (KCL) in 4 oz of water. Allow about 2 minutes for the tablets to disintegra te. Stir before giving to prepare slurry and administer . Please exclude patient's with feeding tube less than 14 [place] (Dobhoff, J-tube, etc) and pediatric and patients. magnesium No Notes: Memori a oxide 07-17 (Same as: l 14:17: Mag-Ox [place] 00 400) Magnesium oxide 696rs=613v g elemental magnesium Dose=____m g magnesium oxide (___mg elemental magnesium) atorvastati No Notes: Antelmo mateusz n 07-17 (Same as: l 02:00: Lipitor) Nilo trazodone Yes 50 mg = 1 Mem oria 50 mg oral 6-08 tab, PO, 0 l tablet 18:57: Refill(s) Benigno n 00 metoprolol Yes 25 mg = 1 Me moria tartrate 25 6-08 tab, PO, l mg oral 18:56: BID, 0 [place] tablet 00 Refill(s) ezetimibe Yes 10 mg = 1 Mem oria 10 mg oral 6-08 tab, PO, l tablet 18:56: Daily, 0 [place] 00 Refill(s) Crestor 10 Yes 10 mg = 1 Me moria mg oral 6-08 tab, PO, l tablet 18:56: Bedtime, 0 Taisha nn 00 Refill(s) Eliquis 5 Yes 5 mg = 1 Antelmo mateusz mg oral 6-08 tab, PO, l tablet 18:55: BID, 0 [place] 00 Refill(s) Metoprolol No Notes: Memor ia Succinate 07-16 (Same as: l ER 25 mg 16:57: Toprol XL) Her becerril oral 00 Do Not tablet, Crush extended release enoxaparin No Notes: Memor ia 07-16 Nurse to l 13:00: ensure [place] 00 documentat ion of patient education per anticoagul ation policy. (Same as: Lovenox) nitroglycer No Notes: Antelmo mateusz in [place] Tab 07-16 (Same l 03:42: as:Nitroqu ick, Nitrostat) "Do Not Crush" Sublingual tablet Tylenol No Notes: Do Memor ia 07-16 not exceed l 03:42: 4 gm/day. [place] (Same as: Tylenol) Edon 5/325 No Notes: Antelmo mateusz oral tablet 07-16 (Same as: l 03:42: Edon 325/5) Do not exceed 4gm/day of acetaminop [...] Alicja-Colac e. Dulcolax No Notes: Memoria Laxative -08 (Same As: l 03:42: Dulcolax, [place] 00 Correctol) (Do Not Crush) "Do Not Crush" MiraLax No Notes: Memoria 6-08 Dissolve l 03:42: in 8 oz of [place] 00 water or juice. (Same as: Miralax) lactulose No Notes: Memori a 10 g/15 mL -08 (Same l oral syrup 03:42: as:Chronul H ermann 00 ac) labetalol No Notes: Memori a 6-08 (Same as: l 03:42: Normodyne, [place] 00 Trandate) Push over 2 minutes Give bolus over 2-3 minutes. melatonin No Notes: Memori a 6-08 (Same as: l 03:42: Melatonin) [place] 00 trazodone No Notes: Memori a 6-08 (Same As: l 03:42: Desyrel) [place] 00 Tessalon No Notes: Memoria Perles -08 (Same As: l 03:42: Tessalon Perles) "Do Not Crush" dextrometho No Notes: Antelmo mateusz rphan-guaiF -08 (dextromet l ENesin 20 03:42: horphan-gu He [...] 81 No Notes: Memor ia mg tablet, -08 Take with l chewable 03:41: food. KCL 10 mEq 2022-0 Yes 10meq Take 1 Univ ers tablet 6-06 tablet by ity of 17:03: mouth in [address] Branch and 1 tablet in the evening. docusate 2023-0 Yes 100mg Take 1 Univer s 100 mg 6-06 capsule by ity of capsule 17:03: mouth in [place] [address] [facility] morning. Branch KCL 10 mEq 3-0 Yes 10meq Take 1 Univ ers tablet 6-06 tablet by ity of 17:03: mouth in [address] Branch and 1 tablet in the evening. docusate 2023-0 Yes 100mg Take 1 Univer s 100 mg 6-06 capsule by ity of capsule 17:03: mouth in [place] [address] [facility] morning. Branch KCL 10 mEq 3-0 Yes 10meq Take 1 Univ ers tablet 6-06 tablet by ity of 17:03: mouth in [address] Branch and 1 tablet in the evening. docusate 2023-0 Yes 100mg Take 1 Univer s 100 mg 6-06 capsule by ity of capsule 17:03: mouth in [place] [address] [facility] morning. Branch KCL 10 mEq 2023-0 Yes 10meq Take 1 Univ ers tablet 6-06 tablet by ity of 17:03: mouth in [address] Branch and 1 tablet in the evening. docusate 2023-0 Yes 100mg Take 1 Univer s 100 mg 6-06 capsule by ity of capsule 17:03: mouth in [place] [address] [facility] morning. Branch KCL 10 mEq 2023-0 Yes 10meq Take 1 Univ ers tablet 6-06 tablet by ity of 17:03: mouth in [place] [address] the [facility] Branch and 1 tablet in the evening. docusate 2023-0 Yes 100mg Take 1 Univer s 100 mg 6-06 capsule by ity of capsule 17:03: mouth in [place] [address] [facility] morning. Branch KCL 10 mEq 2023-0 Yes 10meq Take 1 Univ ers tablet 6-06 tablet by ity of 17:03: mouth in [address] Branch and 1 tablet in the evening. docusate 2023-0 Yes 100mg Take 1 Univer s 100 mg 6-06 capsule by ity of capsule 17:03: mouth in [place] [address] [facility] morning. Branch KCL 10 mEq 2023-0 Yes 10meq Take 1 Univ ers tablet 6-06 tablet by ity of 17:03: mouth in [place] [address] the [facility] Branch and 1 tablet in the evening. docusate 2023-0 Yes 100mg Take 1 Univer s 100 mg 6-06 capsule by ity of capsule 17:03: mouth in [place] [address] [facility] morning. Branch KCL 10 mEq 2023-0 Yes 10meq Take 1 Univ ers tablet 6-06 tablet by ity of 17:03: mouth in [address] Branch and 1 tablet in the evening. docusate 2023-0 Yes 100mg Take 1 Univer s 100 mg 6-06 capsule by ity of capsule 17:03: mouth in [place] [address] [facility] morning. Branch KCL 10 mEq 2023-0 Yes 10meq Take 1 Univ ers tablet 6-06 tablet by ity of 17:03: mouth in [address] Branch and 1 tablet in the evening. docusate 2023-0 Yes 100mg Take 1 Univer s 100 mg 6-06 capsule by ity of capsule 17:03: mouth in [place] [address] [facility] morning. Branch KCL 10 mEq 2023-0 Yes 10meq Take 1 Univ ers tablet 6-06 tablet by ity of 17:03: mouth in [address] Branch and 1 tablet in the evening. docusate 2023-0 Yes 100mg Take 1 Univer s 100 mg 6-06 capsule by ity of capsule 17:03: mouth in [place] [address] [facility] morning. Branch KCL 10 mEq 2023-0 Yes 10meq Take 1 Univ ers tablet 6-06 tablet by ity of 17:03: mouth in [address] and 1 tablet in the evening. docusate 2023-0 Yes 100mg Take 1 Univer s 100 mg 6-06 capsule by ity of capsule 17:03: mouth in [place] [address] the morning. Branch KCL 10 mEq 3-0 Yes 10meq Take 1 Univ ers tablet 6-06 tablet by ity of 17:03: mouth in [address] and 1 tablet in the evening. docusate 2023-0 Yes 100mg Take 1 Univer s 100 mg 6-06 capsule by ity of capsule 17:03: mouth in [place] [address] the morning. Branch KCL 10 mEq 3-0 Yes 10meq Take 1 Univ ers tablet 6-06 tablet by ity of 17:03: mouth in [address] and 1 tablet in the evening. docusate 2023-0 Yes 100mg Take 1 Univer s 100 mg 6-06 capsule by ity of capsule 17:03: mouth in [place] [address] the morning. [place] KCL 10 mEq 3-0 Yes 10meq Take 1 Univ ers tablet 6-06 tablet by ity of 17:03: mouth in [address] and 1 tablet in the evening. docusate 3-0 Yes 100mg Take 1 Univer s 100 mg 6-06 capsule by ity of capsule 17:03: mouth in [place] [address] the morning. [place] KCL 10 mEq 3-0 Yes 10meq Take 1 Univ ers tablet 6-06 tablet by ity of 17:03: mouth in [address] and 1 tablet in the evening. docusate 3-0 Yes 100mg Take 1 Univer s 100 mg 6-06 capsule by ity of capsule 17:03: mouth in [place] [address] the [facility] morning. [place] apixaban 0 Yes 5mg 5 mg, Univers (ELIQUIS) 07-13 Oral, BID, ity of tablet 5 mg 13:00: First dose on Wed07/13/22 at [place] 0800, Until Discontinu ed, Routine
Indicatio ns: Non-Valvul ar Atrial Fibrillati on magnesium 2022- No 4g 4 g, IV Univ ers sulfate in 07-13 Piggyback, it y of water 4 12:30: 14:14 at 25 [place] gram/50 mL 00 :00 mL/hr Medical (8 %) IV Administer Branc h Piggyback 4 over 120 g Minutes, ONCE, 1 dose, On [facility] 07/13/22 at 0730, Routine KCL 3-0 2023- No 40meq 40 mEq, Univers (KLOR-CON 07-13 06-05 Oral, ity of M20) tablet 12:30: 14:00 ONCE, 1 [place] 40 mEq 00 :00 dose, On Medical [facility] 07/13/22 Branch at 0730, Routine metoprolol 2022-0 Yes 25mg 25 mg, Unive rs tartrate 05 Oral, BID, ity o f (LOPRESSOR) 01:00: First dose [place] tablet 25 00 on [place] Medical mg 07/12/22 at Branch 2000, Until Discontinu ed, Routine LORazepam 2022-0 2022- No .5mg 0.5 mg, Univ ers (ATIVAN) 07-12 06-04 Slow IV ity of injection 16:30: 17:02 Push, [place] 0.5 mg 00 :00 ONCE, 1 Medical dose, On [facility] 07/12/22 at 1130, Routine sennosides- 2022-0 Yes 1{tbl} 1 tablet, Univers docusate 07-12 Oral, ity of sodium 14:00: DAILY, [place] (SENOKOT-S) 00 First dose Me dical 8.6-50 mg on [facility] per tablet 07/12/22 at 1 tablet 0900, Until Discontinu ed, Routine polyethylen 2022-0 Yes 17g 17 g, Unive rs e glycol 07-12 Oral, ity of 3350 powder 14:00: DAILY, [place] 17 g 00 First dose Medical on [facility] 07/12/22 at 0900, Until Discontinu ed, Routine ezetimibe 2022-0 Yes 10mg 10 mg, Univer s (ZETIA) 07-12 Oral, ity of tablet 10 14:00: DAILY, [place] mg 00 First dose Medical on [facility] 07/12/22 at 0900, Until Discontinu ed, Routine QUEtiapine 2022-0 Yes 25mg 25 mg, Unive rs (SEROQUEL) -04 Oral, BID, ity of tablet 25 13:30: First dose [place] mg 00 on [facility] 07/12/22 at Branch 0830, Until Discontinu ed, Routine magnesium 2022- No 400mg 400 mg, Uni vers oxide 07-12 Oral, ity of (MAG-OX 11:15: 11:41 ONCE, 1 [place] 400) tablet 00 :00 dose, On Medi ralph 400 mg [place] 07/12/22 Branch at 0615, Routine KCL 2022- No 20meq 20 mEq, Univers (KLOR-CON 07-12 Oral, ity of M20) tablet 11:15: 11:41 ONCE, 1 [place] 20 mEq 00 :00 dose, On Medical [place] 07/12/22 Branch at 0615, Routine rosuvastati Yes 10mg 10 mg, Univ ers n (CRESTOR) 07-12 Oral, QHS, it y of tablet 10 02:00: First dose [place] mg 00 on [facility] 07/11/22 at Branch 2100, Until Discontinu ed, Routine HEPARIN 2022- No 4000U 4,000 Univers SODIUM 07-12 Units, IV ity of (PORCINE) 01:15: 02:32 Push, [place] 1,000 00 :00 ONCE, 1 Medical UNIT/ML dose, On Branch BOLUS ACS [facility] 07/11/22 ORDER SET at 2015, RERE heparin 2022- No 0U/h 0-2,150 Univer s 25,000 07-12 06-05 Units/hr ity of Units/250 01:13: 10:19 (0-21.5 [place] mL 31 :30 mL/hr), IV Medical (Premixed Infusion, Branc h Bag) in TITRATE, 0.45 % NS Parameters in Admin. Instr., Starting on [facility] 07/11/22 at 2012
In itiate dosing:&nb sp; [...] Rang e, Dosing and Testing: &nbs p;FOR [place], [facility], AND [facility] ONLY &nbs p; - aPTT < 35: [...] Yes 50mg 50 mg, Univer s (DESYREL) 6-04 Oral, ity of tablet 50 01:05: QPRRupert, [place] mg 48 Starting Medical on [facility] Branch 07/11/22 at 2005, Until Discontinu ed, Routine, Insomnia acetaminoph Yes 650mg 650 mg, Un marcie en 6-04 Oral, ity of (TYLENOL) 00:10: [place], [place] tablet 650 26 Starting Medic al mg on [facility] Branch 07/11/22 at 1910, Until Discontinu ed, Routine, Pain (scale 1-3) KCL 10 mEq Yes 10meq Take 1 Univ ers tablet 6-03 tablet by ity of 20:06: mouth in [place] 12 the Medical morning Branch and 1 tablet in the evening. docusate Yes 100mg Take 1 Univer s 100 mg 6-03 capsule by ity of capsule 19:55: mouth in [place] 01 the Medical morning. Branch LORazepam 2022-0 2023- No .5mg 0.5 mg, Univ ers (ATIVAN) 07-11 Slow IV ity of injection 19:45: 19:53 Push, [place] 0.5 mg 00 :00 ONCE, 1 Medical dose, On Branch 07/11/22 at 1445, STAT KCL 10 mEq 2023-0 Yes 10meq Take 1 Univ ers tablet 6-02 tablet by ity of 08:18: mouth in [place] 30 the Medical morning Branch and 1 tablet in the evening. KCL 10 mEq 2023-0 Yes 10meq Take 1 Univ ers tablet 6-02 tablet by ity of 08:18: mouth in [place] 30 the Medical morning Branch and 1 tablet in the evening. KCL 10 mEq 2023-0 Yes 10meq Take 1 Univ ers tablet 6-02 tablet by ity of 08:18: mouth in [place] 30 the Medical morning Branch and 1 tablet in the evening. KCL 10 mEq 2023-0 Yes 10meq Take 1 Univ ers tablet 6-02 tablet by ity of 08:18: mouth in [place] 30 the Medical morning Branch and 1 tablet in the evening. KCL 10 mEq 2023-0 Yes 10meq Take 1 [facility] ers tablet 6-02 tablet by ity of 08:18: mouth in [place] 30 the Medical morning Branch and 1 tablet in the evening. LACTULOSE 2022-0 Yes [id number] TAKE 15 ML [facility] 10 gram/15 6-02 BY MOUTH ity o f mL solution 00:00: TWICE [place] 00 DAILY Medical NEEDED FOR Branch CONSTIPATI ON ciprofloxac 3-0 Yes [id number] 250mg Take 1 [facility] in HCl 250 6-02 tablet by ity of mg tablet 00:00: mouth [place] 00 every 12 Medical (twelve) Branch hours. ciprofloxac 2023-0 Yes [id number] 250mg Take 1 [facility] in HCl 250 6-02 tablet by ity of mg tablet 00:00: mouth [place] 00 every 12 Medical (twelve) Branch hours. ciprofloxac 2023-0 Yes [id number] 250mg Take 1 [facility] in HCl 250 6-02 tablet by ity of mg tablet 00:00: mouth [place] 00 every 12 Medical (twelve) Branch hours. ciprofloxac 3-0 Yes [id number] 250mg Take 1 [facility] in HCl 250 6-02 tablet by ity of mg tablet 00:00: mouth [place] 00 every 12 Medical (twelve) Branch hours. ciprofloxac 0 3- No [id number] 250mg Take 1 [facility] in HCl 250 6-02 06-06 tablet by ity of mg tablet 00:00: 00:00 mouth [place] 00 :00 every 12 Medical (twelve) Branch hours. ELIQUIS 5 2022-0 Yes [id number] TAKE 1 [facility] nivers mg tablet 5-22 TABLET BY ity o f 00:00: MOUTH IN [place] 00 THE Medical MORNING Branch AND IN THE EVENING FOR ATRIAL FIBRILLATI ON ELIQUIS 5 2022-0 Yes [id number] TAKE 1 [facility] nivers mg tablet 5-22 TABLET BY ity o f 00:00: MOUTH IN [place] 00 THE Medical MORNING Branch AND IN THE EVENING FOR ATRIAL FIBRILLATI ON ELIQUIS 5 0 Yes [id number] TAKE 1 [facility] nivers mg tablet 5-22 TABLET BY ity o f 00:00: MOUTH IN [place] 00 THE Medical MORNING Branch AND IN THE EVENING FOR ATRIAL FIBRILLATI ON ELIQUIS 5 0 Yes [id number] TAKE 1 [facility] nivers mg tablet 5-22 TABLET BY ity o f 00:00: MOUTH IN [place] 00 THE Medical MORNING Branch AND IN THE EVENING FOR ATRIAL FIBRILLATI ON ELIQUIS 5 2022-0 Yes [id number] TAKE 1 [facility] nivers mg tablet 5-22 TABLET BY ity o f 00:00: MOUTH IN [place] 00 THE Medical MORNING Branch AND IN THE EVENING FOR ATRIAL FIBRILLATI ON ELIQUIS 5 2022-0 Yes [id number] TAKE 1 [facility] nivers mg tablet 5-22 TABLET BY ity o f 00:00: MOUTH IN [place] 00 THE Medical MORNING Branch AND IN THE EVENING FOR ATRIAL FIBRILLATI ON ELIQUIS 5 2022-0 Yes [id number] TAKE 1 [facility] nivers mg tablet 5-22 TABLET BY ity o f 00:00: MOUTH IN [place] 00 THE Medical MORNING Branch AND IN THE EVENING FOR ATRIAL FIBRILLATI ON ELIQUIS 5 2022-0 Yes [id number] TAKE 1 U nivers mg tablet 5-22 TABLET BY ity o f 00:00: MOUTH IN [place] 00 THE Medical MORNING Branch AND IN THE EVENING FOR ATRIAL FIBRILLATI ON ELIQUIS 5 2023-0 Yes [id number] TAKE 1 [facility] nivers mg tablet 5-22 TABLET BY ity o f 00:00: MOUTH IN [place] 00 THE Medical MORNING Branch AND IN THE EVENING FOR ATRIAL FIBRILLATI ON ELIQUIS 5 0 Yes [id number] TAKE 1 U nivers mg tablet 5-22 TABLET BY ity o f 00:00: MOUTH IN [place] 00 THE Medical MORNING Branch AND IN THE EVENING FOR ATRIAL FIBRILLATI ON ELIQUIS 5 0 Yes [id number] TAKE 1 [facility] nivers mg tablet 5-22 TABLET BY ity o f 00:00: MOUTH IN [place] 00 THE Medical MORNING Branch AND IN THE EVENING FOR ATRIAL FIBRILLATI ON ELIQUIS 5 0 Yes [id number] TAKE 1 [facility] nivers mg tablet 5-22 TABLET BY ity o f 00:00: MOUTH IN [place] 00 THE Medical MORNING Branch AND IN THE EVENING FOR ATRIAL FIBRILLATI ON ELIQUIS 5 0 Yes [id number] TAKE 1 [facility] nivers mg tablet 5-22 TABLET BY ity o f 00:00: MOUTH IN [place] 00 THE Medical MORNING Branch AND IN THE EVENING FOR ATRIAL FIBRILLATI ON ELIQUIS 5 0 Yes [id number] TAKE 1 [facility] nivers mg tablet 5-22 TABLET BY ity o f 00:00: MOUTH IN [place] 00 THE Medical MORNING Branch AND IN THE EVENING FOR ATRIAL FIBRILLATI ON ELIQUIS 5 0 Yes [id number] TAKE 1 [facility] nivers mg tablet 5-22 TABLET BY ity o f 00:00: MOUTH IN [place] 00 THE Medical MORNING Branch AND IN THE EVENING FOR ATRIAL FIBRILLATI ON ELIQUIS 5 0 Yes [id number] TAKE 1 [facility] nivers mg tablet 5-22 TABLET BY ity o f 00:00: MOUTH IN [place] 00 THE Medical MORNING Branch AND IN THE EVENING FOR ATRIAL FIBRILLATI ON ELIQUIS 5 0 Yes [id number] TAKE 1 [facility] nivers mg tablet 5-22 TABLET BY ity o f 00:00: MOUTH IN [place] 00 THE Medical MORNING Branch AND IN THE EVENING FOR ATRIAL FIBRILLATI ON ELIQUIS 5 0 Yes [id number] TAKE 1 [facility] nivers mg tablet 5-22 TABLET BY ity o f 00:00: MOUTH IN [place] 00 THE Medical MORNING Branch AND IN THE EVENING FOR ATRIAL FIBRILLATI ON ELIQUIS 5 2023-0 Yes [id number] TAKE 1 [facility] nivers mg tablet 5-22 TABLET BY ity o f 00:00: MOUTH IN [place] 00 THE Medical MORNING Branch AND IN THE EVENING FOR ATRIAL FIBRILLATI ON ELIQUIS 5 2022-0 Yes [id number] TAKE 1 [facility] nivers mg tablet 5-22 TABLET BY ity o f 00:00: MOUTH IN [place] 00 THE Medical MORNING Branch AND IN THE EVENING FOR ATRIAL FIBRILLATI ON ELIQUIS 5 3-0 Yes [id number] TAKE 1 U nivers mg tablet 5-22 TABLET BY ity o f 00:00: MOUTH IN [place] 00 THE Medical MORNING Branch AND IN THE EVENING FOR ATRIAL FIBRILLATI ON ELIQUIS 5 3-0 Yes [id number] TAKE 1 U nivers mg tablet 5-22 TABLET BY ity o f 00:00: MOUTH IN [place] 00 THE Medical MORNING Branch AND IN THE EVENING FOR ATRIAL FIBRILLATI ON lactulose 2022-0 Yes [id number] 15mL Take 15 mL [facility] 10 gram/15 5-18 by mouth 2 ity of mL solution 00:00: (two) [place] 00 times Medical daily as Branch needed for Constipati on. lactulose 2022-0 Yes [id number] 15mL Take 15 mL [facility] 10 gram/15 5-18 by mouth 2 ity of mL solution 00:00: (two) [place] 00 times Medical daily as Branch needed for Constipati on. lactulose 2022-0 Yes [id number] 15mL Take 15 mL [facility] 10 gram/15 5-18 by mouth 2 ity of mL solution 00:00: (two) [place] 00 times Medical daily as Branch needed for Constipati on. lactulose 3-0 Yes [id number] 15mL Take 15 mL [facility] 10 gram/15 5-18 by mouth 2 ity of mL solution 00:00: (two) [place] 00 times Medical daily as Branch needed for Constipati on. lactulose 3-0 Yes [id number] 15mL Take 15 mL [facility] 10 gram/15 5-18 by mouth 2 ity of mL solution 00:00: (two) [place] 00 times Medical daily as Branch needed for Constipati on. lactulose 3-0 2023- No [id number] 15mL Take 15 mL [facility] 10 gram/15 5-18 06-02 by mouth 2 it y of mL solution 00:00: 00:00 (two) [facility] Medical daily as Branch needed for Constipati on. lactulose 2023-0 3- No [id number] 15mL Take 15 mL [facility] 10 gram/15 5-18 -02 by mouth 2 it y of mL solution 00:00: 00:00 (two) [place] 00 :00 times Medical daily as Branch needed for Constipati on. lactulose 2023-0 3- No [id number] 15mL Take 15 mL [facility] 10 gram/15 5-18 -02 by mouth 2 it y of mL solution 00:00: 00:00 (two[place] :[place] times Medical daily as Branch needed for Constipati on. tamsulosin 3-0 3- No [id number] .4mg Take 1 [facility] 0.4 mg 24 5-18 05-18 capsule by ity of hr capsule 00:00: 00:00 mouth in [place] 00 :00 the Medical morning. Branch tamsulosin 3-0 3- No [id number] .4mg Take 1 [facility] 0.4 mg 24 5-18 05-18 capsule by ity of hr capsule 00:00: 00:00 mouth in [place] 00 :00 the Medical morning. Branch tamsulosin 3-0 3- No [id number] .4mg Take 1 [facility] 0.4 mg 24 5-18 05-18 capsule by ity of hr capsule 00:00: 00:00 mouth in [place] 00 :00 the Medical morning. Branch KCL 10 mEq 3-0 Yes 10meq Take 1 [facility] ers tablet 3-25 tablet by ity of 17:27: mouth in [place] [address] the Medical morning Branch and 1 tablet in the evening. docusate 2023-0 Yes 100mg Take 100 Univ ers (COLACE) 3-25 mg by ity of 100 mg 17:27: mouth [place] capsule 50 daily. Medical Branch KCL 10 mEq 2023-0 Yes 10meq Take 1 [facility] ers tablet 3-25 tablet by ity of 17:27: mouth in [place] [address] the Medical morning Branch and 1 tablet [...] the evening. docusate 0 Yes 100mg Take 100 Univ ers (COLACE) 3-25 mg by ity of 100 mg 17:27: mouth [place] capsule 50 daily. Medical Branch KCL 10 mEq 0 Yes 10meq Take 1 [facility] ers tablet 3-25 tablet by ity of 17:27: mouth in [place] 50 the Medical morning Branch and 1 tablet in the evening. docusate 0 Yes 100mg Take 100 Univ ers (COLACE) 3-25 mg by ity of 100 mg 17:27: mouth [place] capsule 50 daily. Medical Branch KCL 10 mEq 0 Yes 10meq Take 1 [facility] ers tablet 3-25 tablet by ity of 17:27: mouth in [place] 50 the Medical morning Branch and 1 tablet in the evening. docusate 0 Yes 100mg Take 100 Univ [...] [place] capsule 50 daily. Medical Branch ezetimibe 0 Yes 10mg 10 mg, Univer s (ZETIA) 3-25 Oral, ity of tablet 10 14:00: DAILY, [place] mg 00 First dose Medical on [facility] Branch 05/02/22 at 0900, Until Discontinu ed, Routine ezetimibe 2023-0 2023- No 10mg 10 mg, Unive rs (ZETIA) 05-02 Oral, ity of tablet 10 14:00: 00:27 DAILY, [place] mg 00 :50 First dose Medical on [facility] 05/02/22 at 0900, Until Discontinu ed, Routine ezetimibe 2022- No 10mg 10 mg, Unive rs (ZETIA) 05-02 Oral, ity of tablet 10 14:00: 00:27 DAILY, [place] mg 00 :50 First dose Medical on [facility] Branch 05/02/22 at 0900, Until Discontinu ed, Routine magnesium 2022-0 2022- No 2g 2 g, IV Univ ers sulfate in 05-02 Piggyback, it y of water 2 12:00: 17:55 Administer [place] as gram/50 mL 00 :00 over 60 Medica l (4 %) Minutes, Branch infusion 2 ONCE, 1 g dose, On [facility] 05/02/22 at 0700, Routine magnesium 2022-2022- No 2g 2 g, IV Univ ers sulfate in 05-02 Piggyback, it y of water 2 12:00: 17:55 Administer [place] gram/50 mL 00 :00 over 60 Medica l (4 %) Minutes, Branch infusion 2 ONCE, 1 g dose, On [facility] 05/02/22 at 0700, Routine magnesium 2022-2022- No 2g 2 g, IV Univ ers sulfate in 05-02 Piggyback, it y of water 2 12:00: 17:55 Administer [place] gram/50 mL 00 :00 over 60 Medica l (4 %) Minutes, Branch infusion 2 ONCE, 1 g dose, On [facility] 05/02/22 at 0700, Routine acetaminoph 2022-2022- No 1{tbl} 1 tablet, Univers en-codeine 05-02 Oral, ONCE it y of (TYLENOL 09:51: 09:59 NOW, 1 [place] #3) 300-30 00 :00 dose, On Medic al mg tablet 1 [facility] 05/02/22 at 0500, Routine acetaminoph 2022-2022- No 1{tbl} 1 tablet, Univers en-codeine 05-02 Oral, ONCE it y of (TYLENOL 09:51: 09:59 NOW, 1 [place] #3) 300-30 00 :00 dose, On Medic al mg tablet 1 Sat Branch tablet 05/02/22 at 0500, Routine acetaminoph No 1{tbl} 1 tablet, Univers en-codeine 05-02 Oral, ONCE it y of (TYLENOL 09:51: 09:59 NOW, 1 [place] #3) 300-30 00 :00 dose, On Medic al mg tablet 1 Sat Branch tablet 05/02/22 at 0500, Routine vancomycin No 1000mg 1,000 mg, Univers (VANCOCIN) 05-02 IV ity of 1,000 mg in 05:00: 18:58 [facility], [place] NaCl 0.9% 00 :14 Q12H ABX, Medic al (NS) 250 mL 2 doses, Bran ch VIAL-kiss mixer dose IV on Sat piggyback 05/02/22 at [...] (NS) 250 mL 2 doses, Bran ch VIAL-kiss mixer dose IV on Sat piggyback 05/02/22 at [...] (NS) 250 mL 2 doses, Bran ch VIAL-kiss mixer dose IV on Sat piggyback 05/02/22 at [...] First dose [place] mg 00 on Wed [facility] 05/01/22 at Branch 2100, Until Discontinu ed, Routine rosuvastati 2022- No 10mg 10 mg, Uni vers n (CRESTOR) 05-02 Oral, QHS, i ty of tablet 10 02:00: 00:27 First dose [place] mg 00 :50 on [facility] 05/01/22 at Branch 2100, Until Discontinu ed, Routine rosuvastati 2022- No 10mg 10 mg, Uni vers n (CRESTOR) 05-02 Oral, QHS, i ty of tablet 10 02:00: 00:27 First dose [place] mg 00 :50 on [facility] 05/01/22 at Branch 2100, Until Discontinu ed, Routine traZODone 2022- No 50mg 50 mg, Unive rs (DESYREL) 05-02 Oral, ONCE ity of tablet 50 02:00: 02:19 NOW, 1 [place] mg 00 :00 dose, On [facility] 05/01/22 at 2115, Routine traZODone 2022- No 50mg 50 mg, Unive rs (DESYREL) 05-02 Oral, ONCE ity of tablet 50 02:00: 02:19 NOW, 1 [place] mg 00 :00 dose, On [facility] 05/01/22 at 2115, Routine traZODone 2022- No [...] 00 on Fri Medical mg 05/01/22 at [place] 1999, Until Discontinu ed, Routine metoprolol 2022- No 25mg 25 mg, Univ ers tartrate 3-02 05-26 Oral, BID, ity of (LOPRESSOR) 01:00: 00:27 First dose [place] tablet 25 00 :50 on Fri Medical mg 05/01/22 at [place] 1999, Until Discontinu ed, Routine metoprolol 2022- No 25mg 25 mg, Univ ers tartrate 3-02 05-26 Oral, BID, ity of (LOPRESSOR) 01:00: 00:27 First dose [place] tablet 25 00 :50 on Fri Medical mg 05/01/22 at [place] 1999, Until Discontinu ed, Routine doxycycline 2022- No [id number] 100mg Take 1 Univers hyclate 100 3-25 04-02 capsule by i ty of mg capsule 00:00: 04:59 mouth [place] 00 :00 every 12 Medical (twelve) Branch hours for 7 days. doxycycline 2022- No [id number] 100mg Take 1 [facility] hyclate 100 3-25 04-02 capsule by i ty of mg capsule 00:00: 04:59 mouth [place] 00 :00 every 12 Medical (twelve) Branch hours for 7 days. doxycycline 2022-2022- No [id number] 100mg Take 1 [facility] hyclate 100 3-25 04-02 capsule by i ty of mg capsule 00:00: 04:59 mouth [place] 00 :00 every 12 Medical (twelve) Branch hours for 7 days. doxycycline 2022-0 3- No [id number] 100mg Take 1 [facility] hyclate 100 3-25 04-02 capsule by i ty of mg capsule 00:00: 04:59 mouth [place] 00 :00 every 12 Medical (twelve) Branch hours for 7 days. doxycycline 2022-2022- No [id number] 100mg Take 1 [facility] hyclate 100 3-25 04-02 capsule by i ty of mg capsule 00:00: 04:59 mouth [place] 00 :00 every 12 Medical (twelve) Branch hours for 7 days. doxycycline 2022- No [id number] 100mg Take 1 [facility] hyclate 100 05-02 [...] Oral ity of ORAL 17:56: 00:00 (Tartrate) [place] 04 :00 once daily Medical active Branch allopurinoL 2022- No allopurino Univers 300 mg 05-01 l 300 mg ity of tablet 17:56: 00:00 tablet [place] 04 :00 Medical Branch atorvastati 2022- No [...] last dose morning of procedure famotidine 3-0 2023- No 20mg Take 1 Univ ers 20 mg 04-30 tablet by ity of tablet 00:00: 04:59 mouth [place] 00 :00 every 12 Medical (twelve) Branch hours for 3 doses. Start morning before procedure. Take last dose morning of procedure diphenhydrA 2023-0 3- No 25mg Take 1 Uni vers MINE 25 mg 04-30 tablet by ity of tablet 00:00: 04:59 mouth [place] 00 :00 every 12 Medical (twelve) Branch hours for 3 doses. Start morning before procedure. Take last dose morning of procedure famotidine 3-0 3- No 20mg Take 1 Univ ers 20 mg 04-30 tablet by ity of tablet 00:00: 04:59 mouth [place] 00 :00 every 12 Medical (twelve) Branch hours for 3 doses. Start morning before procedure. Take last dose morning of procedure diphenhydrA 2023-0 3- No 25mg Take 1 Uni vers [...] 1 Uni vers MINE 25 mg 3-23 -26 tablet by ity of [...] 1 Uni vers MINE 25 mg 3-23 -26 tablet by ity of [...] 1 Uni vers MINE 25 mg 3-30 04-24 tablet by ity of [...] Take last dose morning of procedure ezetimibe 2022-0 Yes [id number] 10mg Take 1 U nivers 10 mg 2-17 tablet by ity of tablet 00:00: mouth in [place] 00 the Medical morning. Branch traZODone 2022-0 Yes [id number] 50mg Take 1 Un marcie 50 mg 2-17 tablet by ity of tablet 00:00: mouth at [place] 00 bedtime as Medical needed for Branch Insomnia. mupirocin 2 2022-0 Yes [id number] Apply to Univers % ointment 2-17 area(s) at ity of 00:00: bedtime as [place] [address] needed for Medical Rash. Branch rosuvastati 0 Yes [id number] 10mg Take 1 Univers n 10 mg 2-17 tablet by ity of tablet 00:00: mouth at [place] [address] bedtime. Medical Branch ezetimibe 0 Yes [id number] 10mg Take 1 U nivers 10 mg 2-17 tablet by ity of tablet 00:00: mouth in [place] 00 the Medical morning. Branch traZODone 2022-0 Yes [id number] 50mg Take 1 Un marcie 50 mg 2-17 tablet by ity of tablet 00:00: mouth at [place] 00 bedtime as Medical needed for Branch Insomnia. mupirocin 2 0 Yes [id number] Apply to Univers % ointment 2-17 area(s) at ity of 00:00: bedtime as [place] 00 needed for Medical Rash. Branch rosuvastati 2022-0 Yes [id number] 10mg Take 1 Univers n 10 mg 2-17 tablet by ity of tablet 00:00: mouth at [place] [address] bedtime. Medical Branch ezetimibe 2022-0 Yes [id number] 10mg Take 1 U nivers 10 mg 2-17 tablet by ity of tablet 00:00: mouth in [place] 00 the Medical morning. Branch traZODone 2022-0 Yes [id number] 50mg Take 1 Un marcie 50 mg 2-17 tablet by ity of tablet 00:00: mouth at [place] [address] bedtime as Medical needed for Branch Insomnia. mupirocin 2 2022-0 Yes [id number] Apply to Univers % ointment 2-17 area(s) at ity of 00:00: bedtime as [place] [address] needed for Medical Rash. Branch rosuvastati 2022-0 Yes [id number] 10mg Take 1 Univers n 10 mg 2-17 tablet by ity of tablet 00:00: mouth at [place] [address] bedtime. Medical Branch ezetimibe 2022-0 Yes [id number] 10mg Take 1 U nivers 10 mg 2-17 tablet by ity of tablet 00:00: mouth in [place] [address] the Medical morning. Branch traZODone 2022-0 Yes [id number] 50mg Take 1 Un marcie 50 mg 2-17 tablet by ity of tablet 00:00: mouth at [place] [address] bedtime as Medical needed for Branch Insomnia. mupirocin 2 2022-0 Yes [id number] Apply to Univers % ointment 2-17 area(s) at ity of 00:00: bedtime as [place] [address] needed for Medical Rash. Branch rosuvastati 0 Yes [id number] 10mg Take 1 Univers n 10 mg 2-17 tablet by ity of tablet 00:00: mouth at [place] [address] bedtime. Medical Branch ezetimibe 2022-0 Yes [id number] 10mg Take 1 U nivers 10 mg 2-17 tablet by ity of tablet 00:00: mouth in [place] [address] the Medical morning. Branch traZODone 2022-0 Yes [id number] 50mg Take 1 Un marcie 50 mg 2-17 tablet by ity of tablet 00:00: mouth at [place] [address] bedtime as Medical needed for Branch Insomnia. mupirocin 2 0 Yes [id number] Apply to Univers % ointment 2-17 area(s) at ity of 00:00: bedtime as [place] [address] needed for Medical Rash. Branch rosuvastati 2022-0 Yes [id number] 10mg Take 1 Univers n 10 mg 2-17 tablet by ity of tablet 00:00: mouth at [place] [address] bedtime. Medical Branch ezetimibe 2022-0 Yes [id number] 10mg Take 1 U nivers 10 mg 2-17 tablet by ity of tablet 00:00: mouth in [place] the Medical morning. Branch traZODone 2022-0 Yes [id number] 50mg Take 1 Un marcie 50 mg 2-17 tablet by ity of tablet 00:00: mouth at [place] 00 bedtime as Medical needed for Branch Insomnia. mupirocin 2 2022-0 Yes [id number] Apply to Univers % ointment 2-17 area(s) at ity of 00:00: bedtime as [place] [address] needed for Medical Rash. Branch rosuvastati 2022-0 Yes [id number] 10mg Take 1 Univers n 10 mg 2-17 tablet by ity of tablet 00:00: mouth at [place] [address] bedtime. Medical Branch ezetimibe 2022-0 Yes [id number] 10mg Take 1 U nivers 10 mg 2-17 tablet by ity of tablet 00:00: mouth in [place] the Medical morning. Branch traZODone 2022-0 Yes [id number] 50mg Take 1 Un marcie 50 mg 2-17 tablet by ity of tablet 00:00: mouth at [place] 00 bedtime as Medical needed for Branch Insomnia. mupirocin 2 2022-0 Yes [id number] Apply to Univers % ointment 2-17 area(s) at ity of 00:00: bedtime as [place] [address] needed for Medical Rash. Branch rosuvastati 2022-0 Yes [id number] 10mg Take 1 Univers n 10 mg 2-17 tablet by ity of tablet 00:00: mouth at [place] [address] bedtime. Medical Branch ezetimibe 2022-0 Yes [id number] 10mg Take 1 U nivers 10 mg 2-17 tablet by ity of tablet 00:00: mouth in [place] the Medical morning. Branch traZODone 2022-0 Yes [id number] 50mg Take 1 Un marcie 50 mg 2-17 tablet by ity of tablet 00:00: mouth at [place] 00 bedtime as Medical needed for Branch Insomnia. mupirocin 2 2022-0 Yes [id number] Apply to Univers % ointment 2-17 area(s) at ity of 00:00: bedtime as [place] [address] needed for Medical Rash. Branch rosuvastati 2022-0 Yes [id number] 10mg Take 1 Univers n 10 mg 2-17 tablet by ity of tablet 00:00: mouth at [place] 00 bedtime. Medical Branch ezetimibe 2022-0 Yes [id number] 10mg Take 1 U nivers 10 mg 2-17 tablet by ity of tablet 00:00: mouth in [place] the Medical morning. Branch traZODone 2022-0 Yes [id number] 50mg Take 1 Un marcie 50 mg 2-17 tablet by ity of tablet 00:00: mouth at [place] 00 bedtime as Medical needed for Branch Insomnia. mupirocin 2 2022-0 Yes [id number] Apply to Univers % ointment 2-17 area(s) at ity of 00:00: bedtime as [place] [address] needed for Medical Rash. Branch rosuvastati 2022-0 Yes [id number] 10mg Take 1 Univers n 10 mg 2-17 tablet by ity of tablet 00:00: mouth at [place] [address] bedtime. Medical Branch ezetimibe 0 Yes [id number] 10mg Take 1 Un marcie 10 mg 2-17 tablet by ity of tablet 00:00: mouth in [place] the Medical morning. Branch traZODone 2022-0 Yes [id number] 50mg Take 1 Un marcie 50 mg 2-17 tablet by ity of tablet 00:00: mouth at [place] bedtime as Medical needed for Branch Insomnia. mupirocin 2 2022-0 Yes [id number] Apply to Univers % ointment 2-17 area(s) at ity of 00:00: bedtime as [place] [address] needed for Medical Rash. Branch rosuvastati 2022-0 Yes [id number] 10mg Take 1 Univers n 10 mg 2-17 tablet by ity of tablet 00:00: mouth at [place] 00 bedtime. Medical Branch ezetimibe 0 Yes [id number] 10mg Take 1 Un marcie 10 mg 2-17 tablet by ity of tablet 00:00: mouth in [place] the Medical morning. Branch traZODone 2022-0 Yes [id number] 50mg Take 1 Un marcie 50 mg 2-17 tablet by ity of tablet 00:00: mouth at [place] 00 bedtime as Medical needed for Branch Insomnia. mupirocin 2 2022-0 Yes [id number] Apply to Univers % ointment 2-17 area(s) at ity of 00:00: bedtime as [place] 00 needed for Medical Rash. Branch rosuvastati 2022-0 Yes [id number] 10mg Take 1 Univers n 10 mg 2-17 tablet by ity of tablet 00:00: mouth at [place] [address] bedtime. Medical Branch ezetimibe 2022-0 Yes [id number] 10mg Take 1 Un marcie 10 mg 2-17 tablet by ity of tablet 00:00: mouth in [place] 00 the Medical morning. Branch traZODone 2022-0 Yes [id number] 50mg Take 1 Un marcie 50 mg 2-17 tablet by ity of tablet 00:00: mouth at [place] 00 bedtime as Medical needed for Branch Insomnia. mupirocin 2 2022-0 Yes [id number] Apply to Univers % ointment 2-17 area(s) at ity of 00:00: bedtime as [place] [address] needed for Medical Rash. Branch rosuvastati 2022-0 Yes [id number] 10mg Take 1 Univers n 10 mg 2-17 tablet by ity of tablet 00:00: mouth at [place] [address] bedtime. Medical Branch ezetimibe 2022-0 Yes [id number] 10mg Take 1 Un marcie 10 mg 2-17 tablet by ity of tablet 00:00: mouth in [place] the Medical morning. Branch traZODone 2022-0 Yes [id number] 50mg Take 1 Un marcie 50 mg 2-17 tablet by ity of tablet 00:00: mouth at [place] [address] bedtime as Medical needed for Branch Insomnia. mupirocin 2 2022-0 Yes [id number] Apply to Univers % ointment 2-17 area(s) at ity of 00:00: bedtime as [place] [address] needed for Medical Rash. Branch rosuvastati 2022-0 Yes [id number] 10mg Take 1 Univers n 10 mg 2-17 tablet by ity of tablet 00:00: mouth at [place] [address] bedtime. Medical Branch ezetimibe 2022-0 Yes [id number] 10mg Take 1 Un marcie 10 mg 2-17 tablet by ity of tablet 00:00: mouth in [place] 00 the Medical morning. Branch traZODone 2022-0 Yes [id number] 50mg Take 1 Un marcie 50 mg 2-17 tablet by ity of tablet 00:00: mouth at [place] 00 bedtime as Medical needed for Branch Insomnia. mupirocin 2 2022-0 Yes [id number] Apply to Univers % ointment 2-17 area(s) at ity of 00:00: bedtime as [place] 00 needed for Medical Rash. Branch rosuvastati 2022-0 Yes [id number] 10mg Take 1 Univers n 10 mg 2-17 tablet by ity of tablet 00:00: mouth at [place] 00 bedtime. Medical Branch ezetimibe 2022-0 Yes [id number] 10mg Take 1 Un marcie 10 mg 2-17 tablet by ity of tablet 00:00: mouth in [place] 00 the Medical morning. Branch traZODone 2022-0 Yes [id number] 50mg Take 1 Un marcie 50 mg 2-17 tablet by ity of tablet 00:00: mouth at [place] 00 bedtime as Medical needed for Branch Insomnia. mupirocin 2 2022-0 Yes [id number] Apply to Univers % ointment 2-17 area(s) at ity of 00:00: bedtime as [place] [address] needed for Medical Rash. Branch rosuvastati 2022-0 Yes [id number] 10mg Take 1 Univers n 10 mg 2-17 tablet by ity of tablet 00:00: mouth at [place] 00 bedtime. Medical Branch ezetimibe 2022-0 Yes [id number] 10mg Take 1 Un marcie 10 mg 2-17 tablet by ity of tablet 00:00: mouth in [place] 00 the Medical morning. Branch traZODone 2022-0 Yes [id number] 50mg Take 1 Un marcie 50 mg 2-17 tablet by ity of tablet 00:00: mouth at [place] 00 bedtime as Medical needed for Branch Insomnia. mupirocin 2 2022-0 Yes [id number] Apply to Univers % ointment 2-17 area(s) at ity of 00:00: bedtime as [place] 00 needed for Medical Rash. Branch rosuvastati 2022-0 Yes [id number] 10mg Take 1 Univers n 10 mg 2-17 tablet by ity of tablet 00:00: mouth at [place] [address] bedtime. Medical Branch ezetimibe 2022-0 Yes [id number] 10mg Take 1 [facility] 10 mg 2-17 tablet by [facility] tablet 00:00: mouth in [place] 00 the Medical morning. Branch traZODone 2022-0 Yes [id number] 50mg Take 1 [facility] 50 mg 2-17 tablet by [facility] tablet 00:00: mouth at [place] 00 bedtime as Medical needed for Branch Insomnia. mupirocin 2 0 Yes [id number] Apply to [facility] % ointment 2-17 area(s) at [facility] 00:00: bedtime as [place] 00 needed for Medical Rash. Branch rosuvastati 2022-0 Yes [id number] 10mg Take 1 [facility] n 10 mg 2-17 tablet by [facility] tablet 00:00: mouth at [place] 00 bedtime. Medical Branch ezetimibe 2022-0 Yes [id number] 10mg Take 1 [facility] 10 mg 2-17 tablet by [facility] tablet 00:00: mouth in [place] 00 the Medical morning. Branch traZODone 0 Yes [id number] 50mg Take 1 [facility] 50 mg 2-17 tablet by [facility] tablet 00:00: mouth at [place] 00 bedtime as Medical needed for Branch Insomnia. mupirocin 2 2022-0 Yes [id number] Apply to [facility] % ointment 2-17 area(s) at [facility] 00:00: bedtime as [place] [address] needed for Medical Rash. Branch rosuvastati 2022-0 Yes [id number] 10mg Take 1 [facility] n 10 mg 2-17 tablet by [facility] tablet 00:00: mouth at [place] [address] bedtime. Medical Branch ezetimibe 2022-0 Yes [id number] 10mg Take 1 [facility] 10 mg 2-17 tablet by [facility] tablet 00:00: mouth in [place] the Medical morning. Branch traZODone 2022-0 Yes [id number] 50mg Take 1 [facility] 50 mg 2-17 tablet by [facility] tablet 00:00: mouth at [place] 00 bedtime as Medical needed for Branch Insomnia. mupirocin 2 2022-0 Yes [id number] Apply to [facility] % ointment 2-17 area(s) at [facility] 00:00: bedtime as [place] 00 needed for Medical Rash. Branch rosuvastati 2022-0 Yes [id number] 10mg Take 1 [facility] n 10 mg 2-17 tablet by [facility] tablet 00:00: mouth at [place] 00 bedtime. Medical Branch ezetimibe 2022-0 Yes [id number] 10mg Take 1 [facility] 10 mg 2-17 tablet by [facility] tablet 00:00: mouth in [place] the Medical morning. Branch traZODone 2022-0 Yes [id number] 50mg Take 1 [facility] 50 mg 2-17 tablet by [facility] tablet 00:00: mouth at [place] 00 bedtime as Medical needed for Branch Insomnia. mupirocin 2 2022-0 Yes [id number] Apply to [facility] % ointment 2-17 area(s) at [facility] 00:00: bedtime as [place] 00 needed for Medical Rash. Branch rosuvastati 2022-0 Yes [id number] 10mg Take 1 [facility] n 10 mg 2-17 tablet by [facility] tablet 00:00: mouth at [place] 00 bedtime. Medical Branch ezetimibe 0 Yes [id number] 10mg Take 1 [facility] 10 mg 2-17 tablet by [facility] tablet 00:00: mouth in [place] the Medical morning. Branch traZODone 2022-0 Yes [id number] 50mg Take 1 [facility] 50 mg 2-17 tablet by [facility] tablet 00:00: mouth at [place] 00 bedtime as Medical needed for Branch Insomnia. mupirocin 2 2022-0 Yes [id number] Apply to [facility] % ointment 2-17 area(s) at [facility] 00:00: bedtime as [place] 00 needed for Medical Rash. Branch rosuvastati 2022-0 Yes [id number] 10mg Take 1 [facility] n 10 mg 2-17 tablet by [facility] tablet 00:00: mouth at [place] 00 bedtime. Medical Branch ezetimibe 2022-0 Yes [id number] 10mg Take 1 [facility] 10 mg 2-17 tablet by [facility] tablet 00:00: mouth in [place] the Medical morning. Branch traZODone 2022-0 Yes [id number] 50mg Take 1 [facility] 50 mg 2-17 tablet by [facility] tablet 00:00: mouth at [place] 00 bedtime as Medical needed for Branch Insomnia. mupirocin 2 2022-0 Yes [id number] Apply to [facility] % ointment 2-17 area(s) at [facility] 00:00: bedtime as [place] 00 needed for Medical Rash. Branch rosuvastati 2022-0 Yes [id number] 10mg Take 1 [facility] n 10 mg 2-17 tablet by [facility] tablet 00:00: mouth at [place] 00 bedtime. Medical Branch ezetimibe 2022-0 Yes [id number] 10mg Take 1 [facility] 10 mg 2-17 tablet by [facility] tablet 00:00: mouth in [place] 00 the Medical morning. Branch traZODone 2022-0 Yes [id number] 50mg Take 1 [facility] 50 mg 2-17 tablet by [facility] tablet 00:00: mouth at [place] 00 bedtime as Medical needed for Branch Insomnia. mupirocin 2 2022-0 Yes [id number] Apply to [facility] % ointment 2-17 area(s) at [facility] 00:00: bedtime as [place] 00 needed for Medical Rash. Branch rosuvastati 2022-0 Yes [id number] 10mg Take 1 [facility] n 10 mg 2-17 tablet by [facility] tablet 00:00: mouth at [place] [address] bedtime. Medical Branch ezetimibe 2022-0 Yes [id number] 10mg Take 1 [facility] 10 mg 2-17 tablet by [facility] tablet 00:00: mouth in [place] the Medical morning. Branch traZODone 2022-0 Yes [id number] 50mg Take 1 [facility] 50 mg 2-17 tablet by [facility] tablet 00:00: mouth at [place] 00 bedtime as Medical needed for Branch Insomnia. mupirocin 2 2022-0 Yes [id number] Apply to [facility] % ointment 2-17 area(s) at [facility] 00:00: bedtime as [place] 00 needed for Medical Rash. Branch rosuvastati 2022-0 Yes [id number] 10mg Take 1 [facility] n 10 mg 2-17 tablet by [facility] tablet 00:00: mouth at [place] 00 bedtime. Medical Branch ezetimibe 2022-0 Yes [id number] 10mg Take 1 [facility] 10 mg 2-17 tablet by [facility] tablet 00:00: mouth in [place] 00 the Medical morning. Branch traZODone 2022-0 Yes [id number] 50mg Take 1 [facility] 50 mg 2-17 tablet by [facility] tablet 00:00: mouth at [place] 00 bedtime as Medical needed for Branch Insomnia. mupirocin 2 0 Yes [id number] Apply to [facility] % ointment 2-17 area(s) at [facility] 00:00: bedtime as [place] 00 needed for Medical Rash. Branch rosuvastati 0 Yes [id number] 10mg Take 1 [facility] n 10 mg 2-17 tablet by [facility] tablet 00:00: mouth at [place] 00 bedtime. Medical Branch ezetimibe 2022-0 Yes [id number] 10mg Take 1 [facility] 10 mg 2-17 tablet by [facility] tablet 00:00: mouth in [place] 00 the Medical morning. Branch traZODone 0 Yes [id number] 50mg Take 1 [facility] 50 mg 2-17 tablet by [facility] tablet 00:00: mouth at [place] 00 bedtime as Medical needed for Branch Insomnia. mupirocin 2 Yes [id number] Apply to [facility] % ointment 2-17 area(s) at [facility] 00:00: bedtime as [place] 00 needed for Medical Rash. Branch rosuvastati 0 Yes [id number] 10mg Take 1 [facility] n 10 mg 2-17 tablet by [facility] tablet 00:00: mouth at [place] [address] bedtime. Medical Branch ezetimibe 0 Yes [id number] 10mg Take 1 [facility] 10 mg 2-17 tablet by [facility] tablet 00:00: mouth in [place] 00 the Medical morning. Branch traZODone 2022-0 Yes [id number] 50mg Take 1 [facility] 50 mg 2-17 tablet by [facility] tablet 00:00: mouth at [place] 00 bedtime as Medical needed for Branch Insomnia. mupirocin 2 Yes [id number] Apply to [facility] % ointment 2-17 area(s) at [facility] 00:00: bedtime as [place] 00 needed for Medical Rash. Branch rosuvastati 0 Yes [id number] 10mg Take 1 [facility] n 10 mg 2-17 tablet by [facility] tablet 00:00: mouth at [place] [address] bedtime. Medical Branch ezetimibe 2022-0 Yes [id number] 10mg Take 1 [facility] 10 mg 2-17 tablet by [facility] tablet 00:00: mouth in [place] 00 the Medical morning. Branch traZODone 2023-0 Yes [id number] 50mg Take 1 [facility] 50 mg 2-17 tablet by [facility] tablet 00:00: mouth at [place] 00 bedtime as Medical needed for Branch Insomnia. mupirocin 2 Yes [id number] Apply to [facility] % ointment 2-17 area(s) at [facility] 00:00: bedtime as [place] 00 needed for Medical Rash. Branch rosuvastati 0 Yes [id number] 10mg Take 1 [facility] n 10 mg 2-17 tablet by [facility] tablet 00:00: mouth at [place] 00 bedtime. Medical Branch ezetimibe Yes [id number] 10mg Take 1 [facility] 10 mg 2-17 tablet by [facility] tablet 00:00: mouth in [place] 00 the Medical morning. Branch traZODone Yes [id number] 50mg Take 1 [facility] 50 mg 2-17 tablet by [facility] tablet 00:00: mouth at [place] 00 bedtime as Medical needed for Branch Insomnia. mupirocin 2 Yes [id number] Apply to [facility] % ointment 2-17 area(s) at [facility] 00:00: bedtime as [place] [address] needed for Medical Rash. Branch rosuvastati Yes [id number] 10mg Take 1 [facility] n 10 mg 2-17 tablet by [facility] tablet 00:00: mouth at [place] [address] bedtime. Medical Branch ezetimibe Yes [id number] 10mg Take 1 [facility] 10 mg 2-17 tablet by [facility] tablet 00:00: mouth in [place] the Medical morning. Branch traZODone 0 Yes [id number] 50mg Take 1 [facility] 50 mg 2-17 tablet by [facility] tablet 00:00: mouth at [place] 00 bedtime as Medical needed for Branch Insomnia. mupirocin 2 Yes [id number] Apply to [facility] % ointment 2-17 area(s) at [facility] 00:00: bedtime as [place] 00 needed for Medical Rash. Branch rosuvastati 0 Yes [id number] 10mg Take 1 [facility] n 10 mg 2-17 tablet by [facility] tablet 00:00: mouth at [place] [address] bedtime. Medical Branch ezetimibe 2023-0 Yes [id number] 10mg Take 1 [facility] 10 mg 2-17 tablet by [facility] tablet 00:00: mouth in [place] 00 the Medical morning. Branch traZODone 2022-0 Yes [id number] 50mg Take 1 [facility] 50 mg 2-17 tablet by [facility] tablet 00:00: mouth at [place] 00 bedtime as Medical needed for Branch Insomnia. mupirocin 2 2022-0 Yes [id number] Apply to [facility] % ointment 2-17 area(s) at [facility] 00:00: bedtime as [place] 00 needed for Medical Rash. Branch rosuvastati 2022-0 Yes [id number] 10mg Take 1 [facility] n 10 mg 2-17 tablet by [facility] tablet 00:00: mouth at [place] 00 bedtime. Medical Branch ezetimibe 2022-0 Yes [id number] 10mg Take 1 [facility] 10 mg 2-17 tablet by [facility] tablet 00:00: mouth in [place] the Medical morning. Branch traZODone 2022-0 Yes [id number] 50mg Take 1 [facility] 50 mg 2-17 tablet by [facility] tablet 00:00: mouth at [place] [address] bedtime as Medical needed for Branch Insomnia. mupirocin 2 2022-0 Yes [id number] Apply to [facility] % ointment 2-17 area(s) at [facility] 00:00: bedtime as [place] [address] needed for Medical Rash. Branch rosuvastati 2022-0 Yes [id number] 10mg Take 1 [facility] n 10 mg 2-17 tablet by [facility] tablet 00:00: mouth at [place] 00 bedtime. Medical Branch ezetimibe 2022-0 Yes [id number] 10mg Take 1 [facility] 10 mg 2-17 tablet by [facility] tablet 00:00: mouth in [place] 00 the Medical morning. Branch traZODone 2022-0 Yes [id number] 50mg Take 1 [facility] 50 mg 2-17 tablet by [facility] tablet 00:00: mouth at [place] 00 bedtime as Medical needed for Branch Insomnia. mupirocin 2 2022-0 Yes [id number] Apply to [facility] % ointment 2-17 area(s) at [facility] 00:00: bedtime as [place] 00 needed for Medical Rash. Branch rosuvastati 2022-0 Yes [id number] 10mg Take 1 [facility] 10 mg 2-17 tablet by [facility] tablet 00:00: mouth at [place] 00 bedtime. Medical Branch ezetimibe 2022-0 Yes [id number] 10mg Take 1 [facility] 10 mg 2-17 tablet by [facility] tablet 00:00: mouth in [place] 00 the Medical morning. Branch traZODone 2022-0 Yes [id number] 50mg Take 1 [facility] 50 mg 2-17 tablet by [facility] tablet 00:00: mouth at [place] 00 bedtime as Medical needed for Branch Insomnia. mupirocin 2 2022-0 Yes [id number] Apply to [facility] % ointment 2-17 area(s) at [facility] 00:00: bedtime as [place] [address] needed for Medical Rash. Branch rosuvastati 2022-0 Yes [id number] 10mg Take 1 [facility] n 10 mg 2-17 tablet by [facility] tablet 00:00: mouth at [place] [address] bedtime. Medical Branch ezetimibe 2022-0 Yes [id number] 10mg Take 1 [facility] 10 mg 2-17 tablet by [facility] tablet 00:00: mouth in [place] the Medical morning. Branch traZODone 2022-0 Yes [id number] 50mg Take 1 [facility] 50 mg 2-17 tablet by [facility] tablet 00:00: mouth at [place] 00 bedtime as Medical needed for Branch Insomnia. mupirocin 2 2022-0 Yes [id number] Apply to [facility] % ointment 2-17 area(s) at [facility] 00:00: bedtime as [place] [address] needed for Medical Rash. Branch rosuvastati 2022-0 Yes [id number] 10mg Take 1 [facility] n 10 mg 2-17 tablet by [facility] tablet 00:00: mouth at [place] 00 bedtime. Medical Branch ezetimibe 2022-0 Yes [id number] 10mg Take 1 [facility] 10 mg 2-17 tablet by [facility] tablet 00:00: mouth in [place] 00 the Medical morning. Branch traZODone 2022-0 Yes [id number] 50mg Take 1 [facility] 50 mg 2-17 tablet by [facility] tablet 00:00: mouth at [place] 00 bedtime as Medical needed for Branch Insomnia. mupirocin 2 2022-0 Yes [id number] Apply to [facility] % ointment 2-17 area(s) at [facility] 00:00: bedtime as [place] 00 needed for Medical Rash. Branch rosuvastati 2022-0 Yes [id number] 10mg Take 1 [facility] n 10 mg 2-17 tablet by [facility] tablet 00:00: mouth at [place] [address] bedtime. Medical Branch ezetimibe 2022-0 Yes [id number] 10mg Take 1 [facility] 10 mg 2-17 tablet by [facility] tablet 00:00: mouth in [place] 00 the Medical morning. Branch traZODone 0 Yes [id number] 50mg Take 1 [facility] 50 mg 2-17 tablet by [facility] tablet 00:00: mouth at [place] 00 bedtime as Medical needed for Branch Insomnia. mupirocin 2 0 Yes [id number] Apply to [facility] % ointment 2-17 area(s) at [facility] 00:00: bedtime as [place] [address] needed for Medical Rash. Branch rosuvastati 2022-0 Yes [id number] 10mg Take 1 [facility] n 10 mg 2-17 tablet by [facility] tablet 00:00: mouth at [place] [address] bedtime. Medical Branch ezetimibe 2022-0 Yes [id number] 10mg Take 1 [facility] 10 mg 2-17 tablet by [facility] tablet 00:00: mouth in [place] 00 the Medical morning. Branch traZODone 2022-0 Yes [id number] 50mg Take 1 [facility] 50 mg 2-17 tablet by [facility] tablet 00:00: mouth at [place] 00 bedtime as Medical needed for Branch Insomnia. mupirocin 2 0 Yes [id number] Apply to [facility] % ointment 2-17 area(s) at [facility] 00:00: bedtime as [place] 00 needed for Medical Rash. Branch rosuvastati 2022-0 Yes [id number] 10mg Take 1 [facility] n 10 mg 2-17 tablet by [facility] tablet 00:00: mouth at [place] [address] bedtime. Medical Branch ezetimibe 2022-0 Yes [id number] 10mg Take 1 [facility] 10 mg 2-17 tablet by [facility] tablet 00:00: mouth in [place] 00 the Medical morning. Branch traZODone 2022-0 Yes [id number] 50mg Take 1 [facility] 50 mg 2-17 tablet by [facility] tablet 00:00: mouth at [place] 00 bedtime as Medical needed for Branch Insomnia. mupirocin 2 0 Yes [id number] Apply to [facility] % ointment 2-17 area(s) at [facility] 00:00: bedtime as [place] [address] needed for Medical Rash. Branch rosuvastati 0 Yes [id number] 10mg Take 1 [facility] n 10 mg 2-17 tablet by [facility] tablet 00:00: mouth at [place] 00 bedtime. Medical Branch ezetimibe 0 Yes [id number] 10mg Take 1 [facility] 10 mg 2-17 tablet by [facility] tablet 00:00: mouth in [place] 00 the Medical morning. Branch traZODone 0 Yes [id number] 50mg Take 1 [facility] 50 mg 2-17 tablet by [facility] tablet 00:00: mouth at [place] 00 bedtime as Medical needed for Branch Insomnia. mupirocin 2 0 Yes [id number] Apply to [facility] % ointment 2-17 area(s) at [facility] 00:00: bedtime as [place] [address] needed for Medical Rash. Branch rosuvastati Yes [id number] 10mg Take 1 [facility] n 10 mg 2-17 tablet by [facility] tablet 00:00: mouth at [place] [address] bedtime. Medical Branch ezetimibe 0 Yes [id number] 10mg Take 1 [facility] 10 mg 2-17 tablet by [facility] tablet 00:00: mouth in [place] 00 the Medical morning. Branch traZODone 0 Yes [id number] 50mg Take 1 [facility] 50 mg 2-17 tablet by [facility] tablet 00:00: mouth at [place] 00 bedtime as Medical needed for Branch Insomnia. mupirocin 2 0 Yes [id number] Apply to [facility] % ointment 2-17 area(s) at [facility] 00:00: bedtime as [place] 00 needed for Medical Rash. Branch rosuvastati 0 Yes [id number] 10mg Take 1 [facility] n 10 mg 2-17 tablet by [facility] tablet 00:00: mouth at [place] [address] bedtime. Medical Branch ezetimibe 2022-0 Yes [id number] 10mg Take 1 [facility] 10 mg 2-17 tablet by [facility] tablet 00:00: mouth in [place] 00 the Medical morning. Branch traZODone 2022-0 Yes [id number] 50mg Take 1 [facility] 50 mg 2-17 tablet by [facility] tablet 00:00: mouth at [place] 00 bedtime as Medical needed for Branch Insomnia. mupirocin 2 2022-0 Yes [id number] Apply to [facility] % ointment 2-17 area(s) at [facility] 00:00: bedtime as [place] 00 needed for Medical Rash. Branch rosuvastati 2022-0 Yes [id number] 10mg Take 1 [facility] n 10 mg 2-17 tablet by [facility] tablet 00:00: mouth at [place] 00 bedtime. Medical Branch ezetimibe 2022-0 Yes [id number] 10mg Take 1 [facility] 10 mg 2-17 tablet by [facility] tablet 00:00: mouth in [place] the Medical morning. Branch traZODone 2022-0 Yes [id number] 50mg Take 1 [facility] 50 mg 2-17 tablet by [facility] tablet 00:00: mouth at [place] 00 bedtime as Medical needed for Branch Insomnia. mupirocin 2 2022-0 Yes [id number] Apply to [facility] % ointment 2-17 area(s) at [facility] 00:00: bedtime as [place] [address] needed for Medical Rash. Branch rosuvastati 2022-0 Yes [id number] 10mg Take 1 [facility] n 10 mg 2-17 tablet by [facility] tablet 00:00: mouth at [place] 00 bedtime. Medical Branch ezetimibe 2022-0 Yes [id number] 10mg Take 1 [facility] 10 mg 2-17 tablet by [facility] tablet 00:00: mouth in [place] 00 the Medical morning. Branch traZODone 2022-0 Yes [id number] 50mg Take 1 [facility] 50 mg 2-17 tablet by [facility] tablet 00:00: mouth at [place] 00 bedtime as Medical needed for Branch Insomnia. mupirocin 2 2022-0 Yes [id number] Apply to [facility] % ointment 2-17 area(s) at [facility] 00:00: bedtime as [place] 00 needed for Medical Rash. Branch rosuvastati 2022-0 Yes [id number] 10mg Take 1 [facility] n 10 mg 2-17 tablet by [facility] tablet 00:00: mouth at [place] 00 bedtime. Medical Branch ezetimibe 0 Yes [id number] 10mg Take 1 [facility] 10 mg 2-17 tablet by [facility] tablet 00:00: mouth in [place] 00 the Medical morning. Branch traZODone 2022-0 Yes [id number] 50mg Take 1 [facility] 50 mg 2-17 tablet by [facility] tablet 00:00: mouth at [place] 00 bedtime as Medical needed for Branch Insomnia. mupirocin 2 0 Yes [id number] Apply to [facility] % ointment 2-17 area(s) at [facility] 00:00: bedtime as [place] 00 needed for Medical Rash. Branch rosuvastati Yes [id number] 10mg Take 1 [facility] n 10 mg 2-17 tablet by [facility] tablet 00:00: mouth at [place] 00 bedtime. Medical Branch ezetimibe 0 Yes [id number] 10mg Take 1 [facility] 10 mg 2-17 tablet by [facility] tablet 00:00: mouth in [place] 00 the Medical morning. Branch traZODone Yes [id number] 50mg Take 1 [facility] 50 mg 2-17 tablet by [facility] tablet 00:00: mouth at [place] 00 bedtime as Medical needed for Branch Insomnia. mupirocin 2 Yes [id number] Apply to [facility] % ointment 2-17 area(s) at [facility] 00:00: bedtime as [place] 00 needed for Medical Rash. Branch rosuvastati 0 Yes [id number] 10mg Take 1 [facility] n 10 mg 2-17 tablet by [facility] tablet 00:00: mouth at [place] 00 bedtime. Medical Branch ezetimibe 0 Yes [id number] 10mg Take 1 [facility] 10 mg 2-07 tablet by [facility] tablet 00:00: mouth in [place] 00 the Medical morning. Branch metoprolol 2022-0 Yes [id number] 25mg Take 1 [facility] tartrate 25 2-07 tablet by [facility] mg tablet 00:00: mouth in [facility] 00 the Medical morning Branch and 1 tablet in the evening. apixaban 2022-0 Yes [id number] 5mg Take 1 [facility] (ELIQUIS) 5 2-07 tablet by [facility] mg tablet 00:00: mouth in [place] 00 the Medical morning Branch and 1 tablet in the evening. Indication s: atrial fibrillati on cetirizine 3-0 Yes [id number] 10mg Take 1 [facility] (ZYRTEC) 10 2-07 tablet by [facility] mg tablet 00:00: mouth in [place] 00 the Medical morning. Branch ezetimibe 2022-0 Yes [id number] 10mg Take 1 [facility] 10 mg 2-07 tablet by [facility] tablet 00:00: mouth in [place] 00 the Medical morning. Branch metoprolol 3-0 Yes [id number] 25mg Take 1 [facility] tartrate 25 2-07 tablet by [facility] mg tablet 00:00: mouth in [place] 00 the Medical morning Branch and 1 tablet in the evening. apixaban 3-0 Yes [id number] 5mg Take 1 [facility] (ELIQUIS) 5 2-07 tablet by [facility] mg tablet 00:00: mouth in [place] the morning Branch and 1 tablet in the evening. Indication s: atrial fibrillati on cetirizine 2022-0 Yes [id number] 10mg Take 1 [facility] (ZYRTEC) 10 2-07 tablet by [facility] mg tablet 00:00: mouth in [place] the Medical morning. Branch ezetimibe 2022-0 Yes [id number] 10mg Take 1 [facility] 10 mg 2-07 tablet by [facility] tablet 00:00: mouth in [place] 00 the Medical morning. Branch metoprolol 3-0 Yes [id number] 25mg Take 1 [facility] tartrate 25 [...] s: atrial fibrillati on cetirizine 3-0 Yes [id number] 10mg Take 1 [facility] (ZYRTEC) 10 2-07 tablet by [facility] mg tablet 00:00: mouth in [place] 00 the Medical morning. Branch ezetimibe 2022-0 Yes [id number] 10mg Take 1 [facility] 10 mg 2-07 tablet by [facility] tablet 00:00: mouth in [place] 00 the Medical morning. Branch metoprolol 2022-0 Yes [id number] 25mg Take 1 [facility] n[facility] tartrate 25 [...] s: atrial fibrillati on cetirizine 2022-0 Yes [id number] 10mg Take 1 [facility] (ZYRTEC) 10 2-07 tablet by [facility] mg tablet 00:00: mouth in [place] 00 the Medical morning. Branch ezetimibe 2022-0 Yes [id number] 10mg Take 1 [facility] 10 mg 2-07 tablet by [facility] tablet 00:00: mouth in [place] 00 the Medical morning. Branch metoprolol 2022-0 Yes [id number] 25mg Take 1 [facility] nivers tartrate 25 [...] s: atrial fibrillati on metoprolol 2022-0 Yes [id number] 25mg Take 1 [facility] n[facility] tartrate 25 [...] s: atrial fibrillati on metoprolol 2022-0 Yes [id number] 25mg Take 1 [facility] nivers tartrate 25 [...] s: atrial fibrillati on metoprolol 3-0 Yes [id number] 25mg Take 1 [facility] n[facility] tartrate 25 [...] s: atrial fibrillati on metoprolol 2022-0 Yes [id number] 25mg Take 1 [facility] nivers tartrate 25 [...] s: atrial fibrillati on metoprolol 3-0 Yes [id number] 25mg Take 1 [facility] nivers tartrate 25 [...] s: atrial fibrillati on metoprolol 3-0 Yes [id number] 25mg Take 1 [facility] nivers tartrate 25 [...] s: atrial fibrillati on metoprolol 3-0 Yes [id number] 25mg Take 1 [facility] nivers tartrate 25 [...] s: atrial fibrillati on metoprolol 2022-0 Yes [id number] 25mg Take 1 [facility] nivers tartrate 25 [...] s: atrial fibrillati on metoprolol 2022-0 Yes [id number] 25mg Take 1 [facility] nivers tartrate 25 [...] s: atrial fibrillati on metoprolol 3-0 Yes [id number] 25mg Take 1 [facility] nivers tartrate 25 [...] s: atrial fibrillati on metoprolol 3-0 Yes [id number] 25mg Take 1 [facility] nivers tartrate 25 [...] s: atrial fibrillati on metoprolol 2022-0 Yes [id number] 25mg Take 1 [facility] nivers tartrate 25 [...] s: atrial fibrillati on metoprolol 2022-0 Yes [id number] 25mg Take 1 [facility] nivers tartrate 25 [...] s: atrial fibrillati on metoprolol 2022-0 Yes [id number] 25mg Take 1 [facility] nivers tartrate 25 [...] s: atrial fibrillati on metoprolol 3-0 Yes [id number] 25mg Take 1 [facility] nivers tartrate 25 [...] s: atrial fibrillati on metoprolol 3-0 Yes [id number] 25mg Take 1 [facility] nivers tartrate 25 [...] s: atrial fibrillati on metoprolol 2022-0 Yes [id number] 25mg Take 1 [facility] nivers tartrate 25 [...] s: atrial fibrillati on metoprolol 2022-0 Yes [id number] 25mg Take 1 [facility] nivers tartrate 25 [...] s: atrial fibrillati on metoprolol 3-0 Yes [id number] 25mg Take 1 [facility] nivers tartrate 25 [...] s: atrial fibrillati on metoprolol 3-0 Yes [id number] 25mg Take 1 [facility] nivers tartrate 25 [...] s: atrial fibrillati on metoprolol 2022-0 Yes [id number] 25mg Take 1 [facility] nivers tartrate 25 [...] s: atrial fibrillati on metoprolol 2022-0 Yes [id number] 25mg Take 1 [facility] nivers tartrate 25 [...] s: atrial fibrillati on metoprolol 2022-0 Yes [id number] 25mg Take 1 [facility] nivers tartrate 25 [...] s: atrial fibrillati on metoprolol 3-0 Yes [id number] 25mg Take 1 [facility] nivers tartrate 25 [...] s: atrial fibrillati on metoprolol 2022-0 Yes [id number] 25mg Take 1 [facility] tartrate 25 2-07 tablet by [facility] mg tablet 00:00: mouth in [place] 00 the Medical morning Branch and 1 tablet in the evening. metoprolol 2022-0 Yes [id number] 25mg Take 1 [facility] tartrate 25 2-07 tablet by [facility] mg tablet 00:00: mouth in [place] 00 the Medical morning Branch and 1 tablet in the evening. metoprolol 2022-0 Yes [id number] 25mg Take 1 [facility] tartrate 25 2-07 tablet by [facility] mg tablet 00:00: mouth in [place] 00 the Medical morning Branch and 1 tablet in the evening. metoprolol 2022-0 Yes [id number] 25mg Take 1 [facility] tartrate 25 2-07 tablet by [facility] mg tablet 00:00: mouth in [place] 00 the Medical morning Branch and 1 tablet in the evening. metoprolol 2022-0 Yes [id number] 25mg Take 1 [facility] tartrate 25 2-07 tablet by [facility] mg tablet 00:00: mouth in [place] 00 the Medical morning Branch and 1 tablet in the evening. metoprolol 2022-0 Yes [id number] 25mg Take 1 [facility] tartrate 25 2-07 tablet by [facility] mg tablet 00:00: mouth in [place] 00 the Medical morning Branch and 1 tablet in the evening. metoprolol 2022-0 Yes [id number] 25mg Take 1 [facility] tartrate 25 2-07 tablet by [facility] mg tablet 00:00: mouth in [place] 00 the Medical morning Branch and 1 tablet in the evening. metoprolol 2022-0 Yes [id number] 25mg Take 1 [facility] tartrate 25 2-07 tablet by [facility] mg tablet 00:00: mouth in [place] 00 the Medical morning Branch and 1 tablet in the evening. metoprolol 2022-0 Yes [id number] 25mg Take 1 [facility] tartrate 25 2-07 tablet by [facility] mg tablet 00:00: mouth in [place] 00 the Medical morning Branch and 1 tablet in the evening. metoprolol 2023-0 Yes [id number] 25mg Take 1 [facility] tartrate 25 2-07 tablet by [facility] mg tablet 00:00: mouth in [place] 00 the Medical morning Branch and 1 tablet in the evening. metoprolol 3-0 Yes [id number] 25mg Take 1 U nivers tartrate 25 2-07 tablet by [facility] mg tablet 00:00: mouth [place] 00 the Medical morning Branch and 1 tablet in the evening. metoprolol 3-0 Yes [id number] 25mg Take 1 [facility] nivers tartrate 25 2-07 tablet by [facility] mg tablet 00:00: mouth [place] 00 the Medical morning Branch and 1 tablet in the evening. metoprolol 3-0 Yes [id number] 25mg Take 1 U nivers tartrate 25 2-07 tablet by [facility] mg tablet 00:00: mouth [place] 00 the Medical morning Branch and 1 tablet in the evening. metoprolol 2022-0 Yes [id number] 25mg Take 1 U nivers tartrate 25 2-07 tablet by [facility] of mg tablet 00:00: mouth [place] 00 the Medical morning Branch and 1 tablet in the evening. metoprolol 3-0 Yes [id number] 25mg Take 1 U nivers tartrate 25 2-07 tablet by [facility] mg tablet 00:00: mouth [place] 00 the Medical morning Branch and 1 tablet in the evening. metoprolol 3-0 Yes [id number] 25mg Take 1 U nivers tartrate 25 2-07 tablet by [facility] of mg tablet 00:00: mouth [place] 00 the Medical morning Branch and 1 tablet in the evening. metoprolol 3-0 Yes [id number] 25mg Take 1 U nivers tartrate 25 2-07 tablet by [facility] of mg tablet 00:00: mouth [place] 00 the Medical morning Branch and 1 tablet in the evening. metoprolol 3-0 Yes [id number] 25mg Take 1 U nivers tartrate 25 2-07 tablet by [facility] of mg tablet 00:00: mouth [place] 00 the Medical morning Branch and 1 tablet in the evening. metoprolol 2023-0 Yes [id number] 25mg Take 1 U nivers tartrate 25 2-07 tablet by [facility] of mg tablet 00:00: mouth [place] 00 the Medical morning Branch and 1 tablet in the evening. metoprolol 2022-0 Yes [id number] 25mg Take 1 U nivers tartrate 25 2-07 tablet by [facility] mg tablet 00:00: mouth [place] 00 the Medical morning Branch and 1 tablet in the evening. metoprolol 2022-0 Yes [id number] 25mg Take 1 U nivers tartrate 25 2-07 tablet by [facility] of mg tablet 00:00: mouth [place] 00 the Medical morning Branch and 1 tablet in the evening. metoprolol 2022-0 Yes [id number] 25mg Take 1 U nivers tartrate 25 2-07 tablet by [facility] mg tablet 00:00: mouth [place] 00 the Medical morning Branch and 1 tablet in the evening. apixaban 2022- No [id number] 5mg Take 1 Univer s (ELIQUIS) 5 03-17 05-22 tablet by it y of mg tablet 00:00: 00:00 mouth in [place] 00 :00 the Medical morning Branch and 1 tablet in the evening. Indication s: atrial fibrillati on ezetimibe 2022- No [id number] 10mg Take 1 [facility] 10 mg 03-17- tablet by [facility] of tablet 00:00: 00:00 mouth in [place] 00 :00 the Medical morning. Branch cetirizine 2022- No [id number] 10mg Take 1 [facility] (ZYRTEC) 10 03-17- tablet by it y of mg tablet 00:00: 00:00 mouth in [place] 00 :00 the Medical morning. Branch ezetimibe 2022- No [id number] 10mg Take 1 [facility] 10 mg 03-17- tablet by it[facility] of tablet 00:00: 00:00 mouth in [place] 00 :00 the Medical morning. Branch cetirizine 2022- No [id number] 10mg Take 1 [facility] (ZYRTEC) 10 03-17-17 tablet by it y of mg tablet 00:00: 00:00 mouth in [place] 00 :00 the Medical morning. Branch traZODone 2022-0 Yes [id number] 50mg Take 1 [facility] 50 mg 1-25 tablet by [facility] of tablet 00:00: mouth at [place] 00 bedtime as Medical needed for Branch Insomnia. traZODone 0 Yes [id number] 50mg Take 1 [facility] 50 mg 1-25 tablet by [facility] of tablet 00:00: mouth at [place] 00 bedtime as Medical needed for Branch Insomnia. traZODone 0 Yes [id number] 50mg Take 1 [facility] [place] 50 mg 1-25 tablet by it[facility] of tablet 00:00: mouth at [place] 00 bedtime as Medical needed for Branch Insomnia. traZODone 0 Yes [id number] 50mg Take 1 [facility] 50 mg 1-25 tablet by it[facility] of tablet 00:00: mouth at [place] 00 bedtime as Medical needed for Branch Insomnia. traZODone 0 Yes [id number] 50mg Take 1 [facility] 50 mg 1-25 tablet by it[facility] of tablet 00:00: mouth at [place] [address] bedtime as Medical needed for Branch Insomnia. traZODone 0 Yes [id number] 50mg Take 1 [facility] [place] 50 mg 1-25 tablet by ity of tablet 00:00: mouth at [place] [address] bedtime as Medical needed for Branch Insomnia. traZODone Yes [id number] 50mg Take 1 [facility] [place] 50 mg 1-25 tablet by ity of tablet 00:00: mouth at [place] [address] bedtime as Medical needed for Branch Insomnia. traZODone 0 Yes [id number] 50mg Take 1 [facility] [place] 50 mg 1-25 tablet by ity of tablet 00:00: mouth at [place] bedtime as Medical needed for Branch Insomnia. traZODone 0 Yes [id number] 50mg Take 1 [facility] [place] 50 mg 1-25 tablet by it[facility] of tablet 00:00: mouth at [place] [address] bedtime as Medical needed for Branch Insomnia. traZODone 0 Yes [id number] 50mg Take 1 [facility] [place] 50 mg 1-25 tablet by ity of tablet 00:00: mouth at [place] 00 bedtime as Medical needed for Branch Insomnia. traZODone 0 Yes [id number] 50mg Take 1 [facility] [place] 50 mg 1-25 tablet by ity of tablet 00:00: mouth at [place] [address] bedtime as Medical needed for Branch Insomnia. traZODone Yes [id number] 50mg Take 1 [facility] [place] 50 mg 1-25 tablet by ity of tablet 00:00: mouth at [place] 00 bedtime as Medical needed for Branch Insomnia. traZODone Yes [id number] 50mg Take 1 [facility] [place] 50 mg 1-25 tablet by ity of tablet 00:00: mouth at [place] 00 bedtime as Medical needed for Branch Insomnia. traZODone Yes [id number] 50mg Take 1 [facility] [place] 50 mg 1-25 tablet by ity of tablet 00:00: mouth at [place] 00 bedtime as Medical needed for Branch Insomnia. traZODone 2022- No [id number] 50mg Take 1 U nivers 50 mg 1-25 02-17 tablet by ity of tablet 00:00: 00:00 mouth at [place] 00 :00 bedtime as Medical needed for Branch Insomnia. traZODone 2022- No [id number] 50mg Take 1 U nivers 50 mg 1-25 02-17 tablet by ity of tablet 00:00: 00:00 mouth at [place] 00 :00 bedtime as Medical needed for Branch Insomnia. traZODone 2021-02 Yes [id number] 50mg Take 1 [facility] 50 mg 2-30 tablet by [facility] of tablet 00:00: mouth at [place] 00 bedtime as Medical needed for Branch Insomnia. PARoxetine 2021-02 Yes [id number] 10mg Take 1 [facility] nivers 10 mg 2-30 tablet by [facility]y of tablet 00:00: mouth in [place] 00 the Medical morning. Branch traZODone 2021-02 Yes [id number] 50mg Take 1 [facility] [place] 50 mg 2-30 tablet by [facility] of tablet 00:00: mouth at [place] 00 bedtime as Medical needed for Branch Insomnia. PARoxetine 2021-02 Yes [id number] 10mg Take 1 [facility] nivers 10 mg 2-30 tablet by [facility] of tablet 00:00: mouth in [place] 00 the Medical morning. Branch traZODone 2021-02 Yes [id number] 50mg Take 1 [facility] [place] 50 mg 2-30 tablet by [facility] of tablet 00:00: mouth at [place] 00 bedtime as Medical needed for Branch Insomnia. PARoxetine 2021-02 Yes [id number] 10mg Take 1 [facility] nivers 10 mg 2-30 tablet by [facility] of tablet 00:00: mouth in [place] the Medical morning. Branch traZODone 2021-02 Yes [id number] 50mg Take 1 [facility] [place] 50 mg 2-30 tablet by [facility] of tablet 00:00: mouth at [place] [address] bedtime as Medical needed for Branch Insomnia. PARoxetine 2021-02 Yes [id number] 10mg Take 1 [facility] nivers 10 mg 2-30 tablet by [facility] of tablet 00:00: mouth in [place] the Medical morning. Branch traZODone 2021-02 Yes [id number] 50mg Take 1 [facility] [place] 50 mg 2-30 tablet by it[facility] of tablet 00:00: mouth at [place] [address] bedtime as Medical needed for Branch Insomnia. PARoxetine 2021-02 Yes [id number] 10mg Take 1 U nivers 10 mg 2-30 tablet by it[facility] of tablet 00:00: mouth in [place] the Medical morning. Branch PARoxetine 2021-02 Yes [id number] 10mg Take 1 U nivers 10 mg 2-30 tablet by ity of tablet 00:00: mouth in [place] the Medical morning. Branch PARoxetine 2021-02 Yes [id number] 10mg Take 1 U nivers 10 mg 2-30 tablet by ity of tablet 00:00: mouth in [place] the Medical morning. Branch PARoxetine 2021-02 Yes [id number] 10mg Take 1 U nivers 10 mg 2-30 tablet by it[facility] of tablet 00:00: mouth in [place] the Medical morning. Branch PARoxetine 2021-02 Yes [id number] 10mg Take 1 U nivers 10 mg 2-30 tablet by it[facility] of tablet 00:00: mouth in [place] the Medical morning. Branch PARoxetine 2021-02 Yes [id number] 10mg Take 1 [facility] nivers 10 mg 2-30 tablet by it[facility] of tablet 00:00: mouth in [place] the Medical morning. Branch PARoxetine 2021-02 Yes [id number] 10mg Take 1 U nivers 10 mg 2-30 tablet by [facility] of tablet 00:00: mouth in [place] 00 the Medical morning. Branch PARoxetine 2021-02 Yes [id number] 10mg Take 1 U nivers 10 mg 2-30 tablet by it[facility] of tablet 00:00: mouth in [place] 00 the Medical morning. Branch PARoxetine 2021-02 Yes [id number] 10mg Take 1 U nivers 10 mg 2-30 tablet by [facility] of tablet 00:00: mouth in [place] 00 the Medical morning. Branch PARoxetine 2021-02 Yes [id number] 10mg Take 1 U nivers 10 mg 2-30 tablet by [facility] of tablet 00:00: mouth in [place] 00 the Medical morning. Branch PARoxetine 2021-02 Yes [id number] 10mg Take 1 U nivers 10 mg 2-30 tablet by [facility] of tablet 00:00: mouth in [place] 00 the Medical morning. Branch PARoxetine 2021-02 Yes [id number] 10mg Take 1 U nivers 10 mg 2-30 tablet by [facility] of tablet 00:00: mouth in [place] 00 the Medical morning. Branch PARoxetine 2021-02 Yes [id number] 10mg Take 1 U nivers 10 mg 2-30 tablet by [facility] of tablet 00:00: mouth in [place] 00 the Medical morning. Branch PARoxetine 2021-02 Yes [id number] 10mg Take 1 U nivers 10 mg 2-30 tablet by [facility] of tablet 00:00: mouth in [place] 00 the Medical morning. Branch PARoxetine 2021-02- No [id number] 10mg Take 1 [facility] 10 mg 2-30 02-17 tablet by [facility] of tablet 00:00: 00:00 mouth in [place] 00 :00 the Medical morning. Branch PARoxetine 2021-02- No [id number] 10mg Take 1 [facility] 10 mg 2-30 02-17 tablet by ity of tablet 00:00: 00:00 mouth in [place] 00 :00 the Medical morning. Branch PARoxetine 2021-02- No [id number] 10mg Take 1 [facility] 10 mg 2-30 02-17 tablet by ity of tablet 00:00: 00:00 mouth in [place] 00 :00 the Medical morning. Branch traZODone 2021-02- No [id number] 50mg Take 1 U nivers 50 mg 2-30 -25 tablet by ity of tablet 00:00: 00:00 mouth at [place] 00 :00 bedtime as Medical needed for Branch Insomnia. traZODone 2021-02- No [id number] 50mg Take 1 U nivers 50 mg 2-30 01-25 tablet by ity of tablet 00:00: 00:00 mouth at [place] 00 :00 bedtime as Medical needed for Branch Insomnia. ELIQUIS 5 2021-02 Yes [id number] Take 1 U nivers mg tablet 2-16 tablet by ity o f 00:00: mouth twice Medical daily Branch ELIQUIS 5 2021-02 Yes [id number] Take 1 U nivers mg tablet 2-16 tablet by ity o f 00:00: mouth twice Medical daily Branch ELIQUIS 5 2021-02 Yes [id number] Take 1 U nivers mg tablet 2-16 tablet by ity o f 00:00: mouth twice Medical daily Branch ELIQUIS 5 2021-02 Yes [id number] Take 1 U nivers mg tablet 2-16 tablet by ity o f 00:00: mouth twice Medical daily Branch ELIQUIS 5 2021-02 Yes [id number] Take 1 U nivers mg tablet 2-16 tablet by ity o f 00:00: mouth twice Medical daily Branch ELIQUIS 5 2021-02 Yes [id number] Take 1 U nivers mg tablet 2-16 tablet by ity o f 00:00: mouth twice Medical daily Branch ELIQUIS 5 2021-02 Yes [id number] Take 1 U nivers mg tablet 2-16 tablet by ity o f 00:00: mouth twice Medical daily Branch ELIQUIS 5 2021-02 Yes [id number] Take 1 U nivers mg tablet 2-16 tablet by ity o f 00:00: mouth twice Medical daily Branch ELIQUIS 5 2021-02 Yes [id number] Take 1 U nivers mg tablet 2-16 tablet by ity o f 00:00: mouth twice Medical daily Branch ELIQUIS 5 2021-02 Yes [id number] Take 1 U nivers mg tablet 2-16 tablet by ity o f 00:00: mouth twice Medical daily Branch ELIQUIS 5 2021-02 Yes [id number] Take 1 U nivers mg tablet 2-16 tablet by ity o f 00:00: mouth twice Medical daily Branch ELIQUIS 5 2021-02 Yes [id number] Take 1 U nivers mg tablet 2-16 tablet by ity o f 00:00: mouth twice Medical daily Branch ELIQUIS 5 2021-02 Yes [id number] Take 1 U nivers mg tablet 2-16 tablet by ity o f 00:00: mouth [place] 00 twice Medical daily Branch ELIQUIS 5 2021-02 Yes [id number] Take 1 U nivers mg tablet 2-16 tablet by ity o f 00:00: mouth [place] 00 twice Medical daily Branch ELIQUIS 5 2021-02 Yes [id number] Take 1 U nivers mg tablet 2-16 tablet by ity o f 00:00: mouth [place] 00 twice Medical daily Branch ELIQUIS 5 2021-02 Yes [id number] Take 1 U nivers mg tablet 2-16 tablet by ity o f 00:00: mouth [place] 00 twice Medical daily Branch ELIQUIS 5 2021-02- No [id number] Take 1 [facility] mg tablet 2-16 - tablet by ity of 00:00: 00:00 mouth [place] 00 :00 twice Medical daily Branch ELIQUIS 5 2021-02- No [id number] Take 1 [facility] mg tablet 2-16 - tablet by ity of 00:00: 00:00 mouth [place] 00 :00 twice Medical daily Branch ELIQUIS 5 2021-02- No [id number] Take 1 [facility] mg tablet 2-16 - tablet by ity of 00:00: 00:00 mouth [place] 00 :00 twice Medical daily Branch metoprolol 2021-02 Yes [id number] Take 1 U nivers tartrate 25 2-06 tablet by ity of mg tablet 00:00: [facility] 00 twice Medical daily Branch metoprolol 2021-02 Yes [id number] Take 1 U nivers tartrate 25 2-06 tablet by ity of mg tablet 00:00: mouth [place] 00 twice Medical daily Branch metoprolol 2021-02 Yes [id number] Take 1 U nivers tartrate 25 2-06 tablet by ity of mg tablet 00:00: mouth [place] 00 twice Medical daily Branch metoprolol 2021-02 Yes [id number] Take 1 U nivers tartrate 25 2-06 tablet by ity of mg tablet 00:00: mouth [place] 00 twice Medical daily Branch metoprolol 2021-02 Yes [id number] Take 1 U nivers tartrate 25 2-06 tablet by ity of mg tablet 00:00: mouth [place] 00 twice Medical daily Branch metoprolol 2021-02 Yes [id number] Take 1 U nivers tartrate 25 2-06 tablet by ity of mg tablet 00:00: mouth twice Medical daily Branch metoprolol 2021-02 Yes [id number] Take 1 U nivers tartrate 25 2-06 tablet by ity of mg tablet 00:00: mouth twice Medical daily Branch metoprolol 2021-02 Yes [id number] Take 1 U nivers tartrate 25 2-06 tablet by ity of mg tablet 00:00: mouth twice Medical daily Branch metoprolol 2021-02 Yes [id number] Take 1 U nivers tartrate 25 2-06 tablet by ity of mg tablet 00:00: mouth twice Medical daily Branch metoprolol 2021-02 Yes [id number] Take 1 U nivers tartrate 25 2-06 tablet by ity of mg tablet 00:00: mouth twice Medical daily Branch metoprolol 2021-02 Yes [id number] Take 1 U nivers tartrate 25 2-06 tablet by ity of mg tablet 00:00: mouth twice Medical daily Branch metoprolol 2021-02 Yes [id number] Take 1 U nivers tartrate 25 2-06 tablet by ity of mg tablet 00:00: mouth twice Medical daily Branch metoprolol 2021-02 Yes [id number] Take 1 U nivers tartrate 25 2-06 tablet by ity of mg tablet 00:00: mouth twice Medical daily Branch metoprolol 2021-02 Yes [id number] Take 1 U nivers tartrate 25 2-06 tablet by ity of mg tablet 00:00: mouth twice Medical daily Branch metoprolol 2021-02 Yes [id number] Take 1 U nivers tartrate 25 2-06 tablet by ity of mg tablet 00:00: mouth twice Medical daily Branch metoprolol 2021-02 Yes [id number] Take 1 U nivers tartrate 25 2-06 tablet by ity of mg tablet 00:00: mouth twice Medical daily Branch metoprolol 2021-02 Yes [id number] Take 1 U nivers tartrate 25 2-06 tablet by ity of mg tablet 00:00: mouth twice Medical daily Branch metoprolol 2021-02 Yes [id number] Take 1 U nivers tartrate 25 2-06 tablet by ity of mg tablet 00:00: mouth 00 twice Medical daily Branch metoprolol 2021-02- No [id number] Take 1 [facility] tartrate 25 2-07 10- tablet by it y of mg tablet 00:00: 00:00 mouth [place] 00 :00 twice Medical daily Branch metoprolol 2021-02- No [id number] Take 1 [facility] tartrate 25 2- tablet by it y of mg tablet 00:00: 00:00 mouth [place] 00 :00 twice Medical daily Branch metoprolol 2021-02- No [id number] Take 1 [facility] tartrate 25 03-16- tablet by it y of mg tablet 00:00: 00:00 mouth [place] 00 :00 twice Medical daily Branch diphenhydrA 2021- No [id number] 25mg [facility] MINE 10-27 09- ity of (BENADRYL) 15:15: 14:39 [place] 12.5 mg/5 00 :03 Medical mL solution Branch 25 mg cetirizine Yes [id number] 10mg Take 1 [facility] (ZYRTEC) 10 9-19 tablet by ity of mg tablet 00:00: mouth in [place] 00 the Medical morning. Branch cetirizine Yes [id number] 10mg Take 1 [facility] (ZYRTEC) 10 9-19 tablet by ity of mg tablet 00:00: mouth [place] 00 the Medical morning. Branch cetirizine Yes [id number] 10mg Take 1 [facility] (ZYRTEC) 10 9-19 tablet by ity of mg tablet 00:00: mouth [place] 00 the Medical morning. Branch cetirizine Yes [id number] 10mg Take 1 [facility] (ZYRTEC) 10 9-19 tablet by ity of mg tablet 00:00: mouth [place] 00 the Medical morning. Branch cetirizine Yes [id number] 10mg Take 1 [facility] (ZYRTEC) 10 9-19 tablet by ity of mg tablet 00:00: mouth [place] 00 the Medical morning. Branch cetirizine Yes [id number] 10mg Take 1 [facility] (ZYRTEC) 10 9-19 tablet by ity of mg tablet 00:00: mouth [place] 00 the Medical morning. Branch cetirizine 0 Yes [id number] 10mg Take 1 [facility] (ZYRTEC) 10 9-19 tablet by ity of mg tablet 00:00: mouth [place] 00 the Medical morning. Branch cetirizine 0 Yes [id number] 10mg Take 1 [facility] (ZYRTEC) 10 9-19 tablet by ity of mg tablet 00:00: mouth [place] 00 the Medical morning. Branch cetirizine 0 Yes [id number] 10mg Take 1 [facility] (ZYRTEC) 10 9-19 tablet by ity of mg tablet 00:00: mouth [place] 00 the Medical morning. Branch cetirizine 0 Yes [id number] 10mg Take 1 [facility] (ZYRTEC) 10 9-19 tablet by ity of mg tablet 00:00: mouth [place] 00 the Medical morning. Branch cetirizine 0 Yes [id number] 10mg Take 1 [facility] (ZYRTEC) 10 9-19 tablet by ity of mg tablet 00:00: mouth [place] 00 the Medical morning. Branch cetirizine 0 Yes [id number] 10mg Take 1 [facility] (ZYRTEC) 10 9-19 tablet by ity of mg tablet 00:00: mouth [place] 00 the Medical morning. Branch cetirizine 0 Yes [id number] 10mg Take 1 [facility] (ZYRTEC) 10 9-19 tablet by ity of mg tablet 00:00: mouth [place] 00 the Medical morning. Branch cetirizine 0 Yes [id number] 10mg Take 1 [facility] (ZYRTEC) 10 9-19 tablet by ity of mg tablet 00:00: mouth [place] 00 the Medical morning. Branch cetirizine 0 Yes [id number] 10mg Take 1 [facility] (ZYRTEC) 10 9-19 tablet by ity of mg tablet 00:00: mouth [place] 00 the Medical morning. Branch cetirizine 0 Yes [id number] 10mg Take 1 [facility] (ZYRTEC) 10 9-19 tablet by ity of mg tablet 00:00: mouth [place] 00 the Medical morning. Branch cetirizine 0 Yes [id number] 10mg Take 1 [facility] (ZYRTEC) 10 9-19 tablet by ity of mg tablet 00:00: mouth [place] 00 the Medical morning. Branch cetirizine 0 Yes [id number] 10mg Take 1 [facility] (ZYRTEC) 10 9-19 tablet by ity of mg tablet 00:00: mouth [place] 00 the Medical morning. Branch cetirizine 0 Yes [id number] 10mg Take 1 [facility] (ZYRTEC) 10 9-19 tablet by ity of mg tablet 00:00: mouth [place] 00 the Medical morning. Branch cetirizine 0 Yes [id number] 10mg Take 1 [facility] (ZYRTEC) 10 9-19 tablet by ity of mg tablet 00:00: mouth [place] 00 the Medical morning. Branch cetirizine 0 Yes [id number] 10mg Take 1 [facility] (ZYRTEC) 10 9-19 tablet by ity of mg tablet 00:00: mouth [place] 00 the Medical morning. Branch cetirizine 0 Yes [id number] 10mg Take 1 [facility] (ZYRTEC) 10 9-19 tablet by ity of mg tablet 00:00: mouth [place] 00 the Medical morning. Branch cetirizine 0 Yes [id number] 10mg Take 1 [facility] (ZYRTEC) 10 9-19 tablet by ity of mg tablet 00:00: mouth [place] 00 the Medical morning. Branch cetirizine 0 Yes [id number] 10mg Take 1 [facility] (ZYRTEC) 10 9-19 tablet by ity of mg tablet 00:00: mouth [place] 00 the Medical morning. Branch cetirizine 0 Yes [id number] 10mg Take 1 [facility] (ZYRTEC) 10 9-19 tablet by ity of mg tablet 00:00: mouth [place] 00 the Medical morning. Branch cetirizine 0 Yes [id number] 10mg Take 1 [facility] (ZYRTEC) 10 9-19 tablet by ity of mg tablet 00:00: mouth [place] 00 the Medical morning. Branch cetirizine Yes [id number] 10mg Take 1 [facility] (ZYRTEC) 10 9-19 tablet by ity of mg tablet 00:00: mouth [place] 00 the Medical morning. Branch cetirizine Yes [id number] 10mg Take 1 [facility] (ZYRTEC) 10 9-19 tablet by ity of mg tablet 00:00: mouth [place] 00 the Medical morning. Branch cetirizine Yes [id number] 10mg Take 1 [facility] (ZYRTEC) 10 9-19 tablet by ity of mg tablet 00:00: mouth [place] 00 the Medical morning. Branch cetirizine Yes [id number] 10mg Take 1 [facility] (ZYRTEC) 10 9-19 tablet by ity of mg tablet 00:00: mouth [place] 00 the Medical morning. Branch cetirizine 2022- No [id number] 10mg Take 1 [facility] (ZYRTEC) 10 9-19 -07 tablet by it y of mg tablet 00:00: 00:00 mouth in [place] 00 :00 the Medical morning. Branch cetirizine 2022- No [id number] 10mg Take 1 [facility] (ZYRTEC) 10 9-19 -07 tablet by it y of mg tablet 00:00: 00:00 mouth in [place] 00 :00 the Medical morning. Branch cetirizine 2022- No [id number] 10mg Take 1 [facility] (ZYRTEC) 10 9-19 -07 tablet by it y of mg tablet 00:00: 00:00 mouth in [place] 00 :00 the Medical morning. Branch methylPREDN Yes [id number] Take by [facility] ISolone 10-18 9107 mouth ity of (MEDROL, 00:00: SEE-INSTRU [place] SHAR,) 4 mg 00 CTIONS. Medica l tablets follow Branch package directions methylPREDN Yes [id number] Take by [facility] ISolone 910 9107 mouth ity of (MEDROL, 00:00: SEE-INSTRU [place] SHAR,) 4 mg 00 CTIONS. Medica l tablets follow Branch package directions methylPREDN 2021-0 2021- No [id number] Take by [facility] 10-18 9107 mouth ity of (MEDROL, 00:00: 00:00 [place]AR[place] 4 mg 00 :00 CTIONS. Medica l tablets follow Branch package directions methylPREDN 0 2021- No [id number] Take by [facility] 10-18 9107 mouth ity of (MEDROL, 00:00: 00:00 [place] SHAR[place] 4 mg 00 :00 CTIONS. Medica l tablets follow Branch package directions mupirocin 2 2021-0 Yes [id number] Apply to [facility] % ointment 8-02 area(s) 3 ity of 00:00: (three) [place] 00 times Medical daily. Branch mupirocin 2 2021-0 Yes [id number] Apply to [facility] % ointment 8-02 area(s) 3 ity of 00:00: (three) [place] 00 times Medical daily. Branch mupirocin 2 2021-0 Yes [id number] Apply to [facility] % ointment 8-02 area(s) 3 ity of 00:00: (three) [place] 00 times Medical daily. Branch mupirocin 2 2021-0 Yes [id number] Apply to [facility] % ointment 8-02 area(s) 3 ity of 00:00: (three) [place] 00 times Medical daily. Branch mupirocin 2 2021-0 Yes [id number] Apply to [facility] % ointment 8-02 area(s) 3 ity of 00:00: (three) [place] 00 times Medical daily. Branch mupirocin 2 2021-0 Yes [id number] Apply to [facility] % ointment 8-02 area(s) 3 ity of 00:00: (three) [place] 00 times Medical daily. Branch mupirocin 2 2021-0 Yes [id number] Apply to [facility] % ointment 8-02 area(s) 3 ity of 00:00: (three) [place] 00 times Medical daily. Branch mupirocin 2 2021-0 Yes [id number] Apply to [facility] % ointment 8-02 area(s) 3 ity of 00:00: (three) [place] 00 times Medical daily. Branch mupirocin 2 2-0 Yes [id number] Apply to [facility] % ointment 8-02 area(s) 3 ity of 00:00: (three) [place] 00 times Medical daily. Branch mupirocin 2 2-0 Yes [id number] Apply to [facility] % ointment 8-02 area(s) 3 ity of 00:00: (three) [place] 00 times Medical daily. Branch mupirocin 2 2-0 Yes [id number] Apply to [facility] % ointment 8-02 area(s) 3 ity of 00:00: (three) [place] 00 times Medical daily. Branch mupirocin 2 2-0 Yes [id number] Apply to [facility] % ointment 8-02 area(s) 3 ity of 00:00: (three) [place] 00 times Medical daily. Branch mupirocin 2 2021-0 Yes [id number] Apply to [facility] % ointment 8-02 area(s) 3 ity of 00:00: (three) [place] 00 times Medical daily. Branch mupirocin 2 2-0 Yes [id number] Apply to [facility] % ointment 8-02 area(s) 3 ity of 00:00: (three) [place] 00 times Medical daily. Branch mupirocin 2 2-0 Yes [id number] Apply to [facility] % ointment 8-02 area(s) 3 ity of 00:00: (three) [place] 00 times Medical daily. Branch mupirocin 2 2-0 Yes [id number] Apply to [facility] % ointment 8-02 area(s) 3 ity of 00:00: (three) [place] 00 times Medical daily. Branch mupirocin 2 2022-0 Yes [id number] Apply to [facility] % ointment 8-02 area(s) 3 ity of 00:00: (three) [place] 00 times Medical daily. Branch mupirocin 2 2-0 Yes [id number] Apply to [facility] % ointment 8-02 area(s) 3 ity of 00:00: (three) [place] 00 times Medical daily. Branch mupirocin 2 2022-0 Yes [id number] Apply to [facility] % ointment 8-02 area(s) 3 ity of 00:00: (three) [place] 00 times Medical daily. Branch mupirocin 2 2-0 Yes [id number] Apply to [facility] % ointment 8-02 area(s) 3 ity of 00:00: (three) [place] 00 times Medical daily. Branch mupirocin 2 2022-0 Yes [id number] Apply to [facility] % ointment 8-02 area(s) 3 ity of 00:00: (three) [place] 00 times Medical daily. Branch mupirocin 2 2022-0 Yes [id number] Apply to [facility] % ointment 8-02 area(s) 3 ity of 00:00: (three) [place] 00 times Medical daily. Branch mupirocin 2 2-0 Yes [id number] Apply to [facility] % ointment 8-02 area(s) 3 ity of 00:00: (three) [place] 00 times Medical daily. Branch mupirocin 2 2-0 Yes [id number] Apply to [facility] % ointment 8-02 area(s) 3 ity of 00:00: (three) [place] 00 times Medical daily. Branch mupirocin 2 2-0 Yes [id number] Apply to [facility] % ointment 8-02 area(s) 3 ity of 00:00: (three) [place] 00 times Medical daily. Branch mupirocin 2 2-0 Yes [id number] Apply to [facility] % ointment 8-02 area(s) 3 ity of 00:00: (three) [place] 00 times Medical daily. Branch mupirocin 2 2022-0 Yes [id number] Apply to [facility] % ointment 8-02 area(s) 3 ity of 00:00: (three) [place] 00 times Medical daily. Branch mupirocin 2 2022-0 Yes [id number] Apply to [facility] % ointment 8-02 area(s) 3 ity of 00:00: (three) [place] 00 times Medical daily. Branch mupirocin 2 2-0 Yes [id number] Apply to [facility] % ointment 8-02 area(s) 3 ity of 00:00: (three) [place] 00 times Medical daily. Branch mupirocin 2 2-0 Yes [id number] Apply to [facility] % ointment 8-02 area(s) 3 ity of 00:00: (three) [place] 00 times Medical daily. Branch mupirocin 2 2-0 Yes [id number] Apply to [facility] % ointment 8-02 area(s) 3 ity of 00:00: (three) [place] 00 times Medical daily. Branch mupirocin 2 2021-0 Yes [id number] Apply to [facility] % ointment 8-02 area(s) 3 ity of 00:00: (three) [place] 00 times Medical daily. Branch mupirocin 2 2021-0 Yes [id number] Apply to [facility] % ointment 8-02 area(s) 3 ity of 00:00: (three) [place] 00 times Medical daily. Branch mupirocin 2 2021-0 Yes [id number] Apply to [facility] % ointment 8-02 area(s) 3 ity of 00:00: (three) [place] 00 times Medical daily. Branch mupirocin 2 2021-0 Yes [id number] Apply to [facility] % ointment 8-02 area(s) 3 ity of 00:00: (three) [place] 00 times Medical daily. Branch mupirocin 2 2021-0 Yes [id number] Apply to [facility] % ointment 8-02 area(s) 3 ity of 00:00: (three) [place] 00 times Medical daily. Branch mupirocin 2 2021-0 Yes [id number] Apply to [facility] % ointment 8-02 area(s) 3 ity of 00:00: (three) [place] 00 times Medical daily. Branch mupirocin 2 2021-0 Yes [id number] Apply to [facility] % ointment 8-02 area(s) 3 ity of 00:00: (three) [place] 00 times Medical daily. Branch mupirocin 2 2-0 Yes [id number] Apply to [facility] % ointment 8-02 area(s) 3 ity of 00:00: (three) [place] 00 times Medical daily. Branch mupirocin 2 2-0 2023- No [id number] Apply to [facility] % ointment 8-02 02-17 area(s) 3 ity of 00:00: 00:00 (three) [place] 00 :00 times Medical daily. Branch mupirocin 2 0 3- No [id number] Apply to [facility] % ointment 09-09 area(s) 3 ity of 00:00: 00:00 (three) [place] 00 :00 times Medical daily. Branch mupirocin 2 2021-0 3- No [id number] Apply to [facility] % ointment 09-09 area(s) 3 ity of 00:00: 00:00 (three) [place] 00 :00 times Medical daily. Branch EZETIMIBE 2021-0 Yes [id number] Take 1 [facility] n[facility] 10 mg 7-26 tablet by ity of tablet 00:00: mouth once [place] daily Medical Branch EZETIMIBE 2021-0 Yes [id number] Take 1 [facility] nivers 10 mg 7-26 tablet by ity of tablet 00:00: mouth once [place] daily Medical Branch EZETIMIBE 2021-0 Yes [id number] Take 1 [facility] nivers 10 mg 7-26 tablet by ity of tablet 00:00: mouth once [place] Medical Branch EZETIMIBE 2021-0 Yes [id number] Take 1 U nivers 10 mg 7-26 tablet by ity of tablet 00:00: mouth once [place] daily Medical Branch EZETIMIBE 2-0 Yes [id number] Take 1 [facility] nivers 10 mg 7-26 tablet by ity of tablet 00:00: mouth once [place] Medical Branch EZETIMIBE 2-0 Yes [id number] Take 1 U nivers 10 mg 7-26 tablet by ity of tablet 00:00: mouth once [place] daily Medical Branch EZETIMIBE 2-0 Yes [id number] Take 1 [facility] nivers 10 mg 7-26 tablet by ity of tablet 00:00: mouth once [place] daily Medical Branch EZETIMIBE 2-0 Yes [id number] Take 1 U nivers 10 mg 7-26 tablet by ity of tablet 00:00: mouth once [place] daily Medical Branch EZETIMIBE 2-0 Yes [id number] Take 1 [facility] nivers 10 mg 7-26 tablet by ity of tablet 00:00: mouth once [place] daily Medical Branch EZETIMIBE 2022-0 Yes [id number] Take 1 U nivers 10 mg 7-26 tablet by ity of tablet 00:00: mouth once daily Medical Branch EZETIMIBE 2021-0 Yes [id number] Take 1 U nivers 10 mg 7-26 tablet by ity of tablet 00:00: mouth once daily Medical Branch EZETIMIBE 2021-0 Yes [id number] Take 1 [facility] nivers 10 mg 7-26 tablet by ity of tablet 00:00: mouth once daily Medical Branch EZETIMIBE 2021-0 Yes [id number] Take 1 U nivers 10 mg 7-26 tablet by ity of tablet 00:00: mouth once daily Medical Branch EZETIMIBE 2021-0 Yes [id number] Take 1 U nivers 10 mg 7-26 tablet by ity of tablet 00:00: mouth once daily Medical Branch EZETIMIBE 2021-0 Yes [id number] Take 1 U nivers 10 mg 7-26 tablet by ity of tablet 00:00: mouth once daily Medical Branch EZETIMIBE 2021-0 Yes [id number] Take 1 [facility] nivers 10 mg 7-26 tablet by ity of tablet 00:00: mouth once daily Medical Branch EZETIMIBE 2021-0 Yes [id number] Take 1 [facility] nivers 10 mg 7-26 tablet by ity of tablet 00:00: mouth once daily Medical Branch EZETIMIBE 2021-0 Yes [id number] Take 1 [facility] nivers 10 mg 7-26 tablet by ity of tablet 00:00: mouth once daily Medical Branch EZETIMIBE 2021-0 Yes [id number] Take 1 [facility] nivers 10 mg 7-26 tablet by ity of tablet 00:00: mouth once daily Medical Branch EZETIMIBE 2021-0 Yes [id number] Take 1 [facility] nivers 10 mg 7-26 tablet by ity of tablet 00:00: mouth once daily Medical Branch EZETIMIBE 2021-0 Yes [id number] Take 1 [facility] nivers 10 mg 7-26 tablet by ity of tablet 00:00: mouth once daily Medical Branch EZETIMIBE 2021-0 Yes [id number] Take 1 [facility] nivers 10 mg 7-26 tablet by ity of tablet 00:00: mouth once daily Medical Branch EZETIMIBE 2021-0 Yes [id number] Take 1 [facility] nivers 10 mg 7-26 tablet by ity of tablet 00:00: mouth once daily Medical Branch EZETIMIBE 2021-0 Yes [id number] Take 1 [facility] nivers 10 mg 7-26 tablet by ity of tablet 00:00: mouth once daily Medical Branch EZETIMIBE 2021-0 Yes [id number] Take 1 [facility] nivers 10 mg 7-26 tablet by ity of tablet 00:00: mouth once daily Medical Branch EZETIMIBE 2021-0 Yes [id number] Take 1 [facility] nivers 10 mg 7-26 tablet by ity of tablet 00:00: mouth once daily Medical Branch EZETIMIBE 2021-0 Yes [id number] Take 1 [facility] nivers 10 mg 7-26 tablet by ity of tablet 00:00: mouth once daily Medical Branch EZETIMIBE 2021-0 Yes [id number] Take 1 [facility] nivers 10 mg 7-26 tablet by ity of tablet 00:00: mouth once daily Medical Branch EZETIMIBE 2021-0 Yes [id number] Take 1 U nivers 10 mg 7-26 tablet by ity of tablet 00:00: mouth once daily Medical Branch EZETIMIBE 2021-0 Yes [id number] Take 1 [facility] nivers 10 mg 7-26 tablet by ity of tablet 00:00: mouth once daily Medical Branch EZETIMIBE 2021-0 Yes [id number] Take 1 U nivers 10 mg 7-26 tablet by ity of tablet 00:00: mouth once daily Medical Branch EZETIMIBE 2021-0 Yes [id number] Take 1 U nivers 10 mg 7-26 tablet by ity of tablet 00:00: mouth once daily Medical Branch EZETIMIBE 2021-0 Yes [id number] Take 1 U nivers 10 mg 7-26 tablet by ity of tablet 00:00: mouth once daily Medical Branch EZETIMIBE 2021-0 Yes [id number] Take 1 [facility] nivers 10 mg 7-26 tablet by ity of tablet 00:00: mouth once daily Medical Branch EZETIMIBE 2022-0 2023- No [id number] Take 1 [facility] 10 mg 7- 02-07 tablet by [facility] of tablet 00:00: 00:[place] 00 :[place] daily [facility] EZETIMIBE 2022- No [id number] Take 1 [facility] 10 mg 7-26 -07 tablet by ity of tablet 00:00: 00:00 mouth [place] 00 :00 daily [facility] EZETIMIBE 2022- No [id number] Take 1 [facility] nivers 10 mg 7-26 -07 tablet by [facility] of tablet 00:00: 00:00 mouth [place] 00 :00 daily [facility] zinc 2021- No Take by [facility] sulfate 7-20 07-20 mouth ity of (ZINC-220 13:24: 00:00 daily. [place] ORAL) 57 :00 Medical Branch KCL 10 mEq 2021-0 Yes 10meq Take 10 [facility] vers tablet 7-20 mEq by ity of 13:24: mouth 2 [place] [address] (two) Medical times Branch daily. KCL 10 mEq 2021-0 Yes 10meq Take 10 [facility] vers tablet 7-20 mEq by ity of 13:24: mouth 2 [place] [address] (two) Medical times Branch daily. KCL 10 mEq 2021-0 Yes 10meq Take 10 [facility] vers tablet 7-20 mEq by ity of 13:24: mouth 2 [place] [address] (two) Medical times Branch daily. KCL 10 mEq 2021-0 Yes 10meq Take 10 [facility] vers tablet 7-20 mEq by ity of 13:24: mouth 2 [place] [address] (two) Medical times Branch daily. KCL 10 mEq 2021-0 Yes 10meq Take 10 [facility] vers tablet 7-20 mEq by ity of 13:24: mouth 2 [place] [address] (two) Medical times Branch daily. KCL 10 mEq 2021-0 Yes 10meq Take 10 [facility] vers tablet 7-20 mEq by ity of 13:24: mouth 2 [place] [address] (two) Medical times Branch daily. KCL 10 mEq 2021-0 Yes 10meq Take 10 [facility] vers tablet 7-20 mEq by ity of 13:24: mouth 2 [place] [address] (two) Medical times Branch daily. KCL 10 [...] mEq by ity of 13:24: mouth 2 [place] [address] (two) Medical times Branch daily. KCL 10 mEq 2022-0 Yes 10meq Take 10 [facility] vers tablet 7-20 mEq by ity of 13:24: mouth 2 [place] [address] (two) Medical times Branch daily. KCL 10 mEq 2-0 Yes 10meq Take 10 [facility] vers tablet 7-20 mEq by ity of 13:24: mouth 2 [place] [address] (two) Medical times Branch daily. KCL 10 mEq 2022-0 Yes 10meq Take 10 [facility] vers tablet 7-20 mEq by ity of 13:24: mouth 2 [place] 55 (two) Medical times Branch daily. KCL 10 mEq 2022-0 Yes 10meq Take 10 [facility] vers tablet 7-20 mEq by ity of 13:24: mouth 2 [place] [address] (two) Medical times Branch daily. KCL 10 [...] mEq by ity of 13:24: mouth 2 [place] [address] (two) Medical times Branch daily. KCL 10 [...] mEq by ity of 13:24: mouth 2 [place] [address] (two) Medical times Branch daily. KCL 10 [...] mEq by ity of 13:24: mouth 2 [place] [address] (two) Medical times Branch daily. KCL 10 mEq 2022-0 Yes 10meq Take 10 [facility] vers tablet 7-20 mEq by ity of 13:24: mouth 2 [place] [address] (two) Medical times Branch daily. KCL 10 mEq 2-0 Yes 10meq Take 10 [facility] vers tablet 7-20 mEq by ity of 13:24: mouth 2 [place] [address] (two) Medical times Branch daily. KCL 10 mEq 2022-0 Yes 10meq Take 10 [facility] vers tablet 7-20 mEq by ity of 13:24: mouth 2 [place] 55 (two) Medical times Branch daily. KCL 10 mEq 2022-0 Yes 10meq Take 10 [facility] vers tablet 7-20 mEq by ity of 13:24: mouth 2 [place] [address] (two) Medical times Branch daily. KCL 10 [...] mEq by ity of 13:24: mouth 2 [place] [address] (two) Medical times Branch daily. KCL 10 mEq 2022-0 Yes 10meq Take 10 Uni vers tablet 7-20 mEq by ity of 13:24: mouth 2 [place] [address] (two) Medical times Branch daily. KCL 10 mEq 2021-0 Yes 10meq Take 10 [facility] vers tablet 7-20 mEq by ity of 13:24: mouth 2 [place] 55 (two) Medical times Branch daily. KCL 10 mEq 2021-0 Yes 10meq Take 10 [facility] vers tablet 7-20 mEq by ity of 13:24: mouth 2 [place] [address] (two) Medical times Branch daily. KCL 10 mEq 2021-0 Yes 10meq Take 10 [facility] vers tablet 7-20 mEq by ity of 13:24: mouth 2 [place] [address] (two) Medical times Branch daily. KCL 10 mEq 2021-0 Yes 10meq Take 10 [facility] vers tablet 7-20 mEq by ity of 13:24: mouth 2 [place] [address] (two) Medical times Branch daily. KCL 10 mEq 2021-0 Yes 10meq Take 10 [facility] vers tablet 7-20 mEq by ity of 13:24: mouth 2 [place] [address] (two) Medical times Branch daily. traMADol 50 2021-0 2021- No 50mg Take 50 mg [facility] mg tablet 08-27 by mouth ity o f 13:24: 00:00 every 6 [place] 48 :00 (six) Medical hours as Branch needed. bisacodyL 0 2021- No 5mg Take 5 mg [facility] (DULCOLAX, 08-27 by mouth ity of BISACODYL,) 13:23: 00:00 once daily [place] 5 mg EC 37 :00 as needed Medical tablet for Branch Constipati on. gluc 2021-0 2021- No Take by [facility] hernandez/chondro 08-27-20 mouth ity of hernandez A/vit 13:23: 00:00 every 12 [place] C/Mn 15 :00 (twelve) Medical (GLUCOSAMIN hours. Branch E 1500 COMPLEX ORAL) methylPREDN 2021-0 Yes [id number] Take by [facility] ISolone 720 9105 mouth ity of (MEDROL, 00:00: SEE-INSTRU [place],) 4 mg 00 CTIONS. Medica l tablets follow Branch package directions methylPREDN 2021-0 Yes [id number] Take by [facility] ISolone 720 9105 mouth ity of (MEDROL, 00:00: SEE-INSTRU [place],) 4 mg 00 CTIONS. Medica l tablets follow Branch package directions methylPREDN 2021-0 Yes [id number] Take by [facility] 7 9105 mouth ity of (MEDROL, 00:00: SEE-INSTRU [place],) 4 mg 00 CTIONS. Medica l tablets follow Branch package directions methylPREDN 2021-0 Yes [id number] Take by [place] [id number] 9105 mouth ity of (MEDROL, 00:00: SEE-INSTRU [place],) 4 mg 00 CTIONS. Medica l tablets follow Branch package directions methylPREDN 2021-0 Yes [id number] Take by [place] [id number] 9105 mouth ity of (MEDROL, 00:00: SEE-INSTRU [place],) 4 mg 00 CTIONS. Medica l tablets follow Branch package directions methylPREDN 2021-0 Yes [id number] Take by [place] [id number] 9105 mouth ity of (MEDROL, 00:00: SEE-INSTRU [place],) 4 mg 00 CTIONS. Medica l tablets follow Branch package directions methylPREDN 0 2- No [id number] Take by [place] [id number] mouth ity of (MEDROL, 00:00: 00:00 [place]-INSTRU [place] SHAR,) 4 mg 00 :00 CTIONS. Medica l tablets follow Branch package directions methylPREDN 2021-0 2022- No [id number] Take by [place] [id number] mouth ity of (MEDROL, 00:00: 00:00 [place]IN[place] SHAR[place] 4 mg 00 :00 CTIONS. Medica l tablets follow Branch package directions HYDROcodone 2021-2021- No 1{tbl} Take 1 U nivers -acetaminop 7- 07-07 tablet by it y of hen 10-325 12:50: 00:00 mouth [place] mg tablet 10 :00 every 6 Medical (six) Branch hours as needed. HYDROcodone 2021-2021- No 1{tbl} Take 1 U nivers -acetaminop 7-07 07-07 tablet by it y of hen 10-325 12:50: 00:00 mouth [place] mg tablet 10 :00 every 6 Medical (six) Branch hours as needed. methylPREDN 2022-0 Yes [id number] Take by [facility] ISolone 08-14 9106 mouth ity of (MEDROL, 00:00: SEE-INSTRU [place],) 4 mg 00 CTIONS. Medica l tablets follow Branch package directions mupirocin 2 2021-0 Yes [id number] Apply to [facility] % ointment 7-07 area(s) 3 ity of 00:00: (three) [place] 00 times Medical daily. Branch methylPREDN 2022-0 Yes [id number] Take by [facility] ISolone 08-14 9106 mouth ity of (MEDROL, 00:00: SEE-INSTRU [place],) 4 mg 00 CTIONS. Medica l tablets follow Branch package directions mupirocin 2 2021-0 Yes [id number] Apply to [facility] % ointment 7-07 area(s) 3 ity of 00:00: (three) [place] 00 times Medical daily. Branch methylPREDN 2-0 Yes [id number] Take by [facility] ISolone 08-14 9106 mouth ity of (MEDROL, 00:00: SEE-INSTRU [place],) 4 mg 00 CTIONS. Medica l tablets follow Branch package directions mupirocin 2 2021-0 Yes [id number] Apply to [facility] % ointment 7-07 area(s) 3 ity of 00:00: (three) [place] 00 times Medical daily. Branch methylPREDN 2022-0 Yes [id number] Take by [facility] ISolone 08-14 9106 mouth ity of (MEDROL, 00:00: SEE-INSTRU [place],) 4 mg 00 CTIONS. Medica l tablets follow Branch package directions mupirocin 2 2021-0 Yes [id number] Apply to [facility] % ointment 7-07 area(s) 3 ity of 00:00: (three) [place] 00 times Medical daily. Branch mupirocin 2 2021-0 Yes [id number] Apply to [facility] % ointment 7-07 area(s) 3 ity of 00:00: (three) [place] 00 times Medical daily. Branch mupirocin 2 2-0 Yes [id number] Apply to [facility] % ointment 7-07 area(s) 3 ity of 00:00: (three) [place] 00 times Medical daily. Branch mupirocin 2 Yes [id number] Apply to [facility] % ointment 08-14 area(s) 3 ity of 00:00: (three) [place] 00 times Medical daily. Branch mupirocin 2 2021- No [id number] Apply to [facility] % ointment 08-14 08- area(s) 3 ity of 00:00: 00:00 (three) [place] 00 :00 times Medical daily. Branch methylPREDN 2021- No [id number] Take by [facility] ISolone 08-1420 9106 mouth ity of (MEDROL, 00:00: 00:00 [place]-INSTRU [place] SHAR[place] 4 mg 00 :00 CTIONS. Medica l tablets follow Branch package directions rosuvastati Yes [id number] 10mg Take 1 [facility] n 10 mg 7-06 tablet by ity of tablet 00:00: mouth at [place] [address] bedtime. Medical Branch rosuvastati Yes [id number] 10mg Take 1 [facility] n 10 mg 7-06 tablet by ity of tablet 00:00: mouth at [place] [address] bedtime. Medical Branch rosuvastati Yes [id number] 10mg Take 1 [facility] n 10 mg 7-06 tablet by ity of tablet 00:00: mouth at [place] [address] bedtime. Medical Branch rosuvastati Yes [id number] 10mg Take 1 [facility] n 10 mg 7-06 tablet by ity of tablet 00:00: mouth at [place] [address] bedtime. Medical Branch rosuvastati Yes [id number] 10mg Take 1 [facility] n 10 mg 7-06 tablet by ity of tablet 00:00: mouth at [place] [address] bedtime. [facility] Branch rosuvastati Yes [id number] 10mg Take 1 [facility] n 10 mg 7-06 tablet by ity of tablet 00:00: mouth at [place] [address] bedtime. Medical Branch rosuvastati Yes [id number] 10mg Take 1 [facility] n 10 mg 7-06 tablet by ity of tablet 00:00: mouth at [place] [address] bedtime. Medical Branch rosuvastati 2022-0 Yes [id number] 10mg Take 1 [facility] n 10 mg 7-06 tablet by ity of tablet 00:00: mouth at [place] 00 bedtime. Medical Branch rosuvastati Yes [id number] 10mg Take 1 [facility] n 10 mg 7-06 tablet by ity of tablet 00:00: mouth at [place] bedtime. Medical Branch rosuvastati 2021-0 Yes [id number] 10mg Take 1 [facility] n 10 mg 7-06 tablet by ity of tablet 00:00: mouth at [place] bedtime. Medical Branch rosuvastati 2021-0 Yes [id number] 10mg Take 1 [facility] n 10 mg 7-06 tablet by ity of tablet 00:00: mouth at [place] bedtime. Medical Branch rosuvastati Yes [id number] 10mg Take 1 [facility] n 10 mg 7-06 tablet by ity of tablet 00:00: mouth at [place] bedtime. Medical Branch rosuvastati 2021- Yes [id number] 10mg Take 1 [facility] n 10 mg 7-06 tablet by ity of tablet 00:00: mouth at [place] bedtime. Medical Branch rosuvastati Yes [id number] 10mg Take 1 [facility] n 10 mg 7-06 tablet by ity of tablet 00:00: mouth at [place] bedtime. Medical Branch rosuvastati Yes [id number] 10mg Take 1 [facility] n 10 mg 7-06 tablet by ity of tablet 00:00: mouth at [place] bedtime. Medical Branch rosuvastati 2021-0 Yes [id number] 10mg Take 1 [facility] n 10 mg 7-06 tablet by ity of tablet 00:00: mouth at [place] bedtime. Medical Branch rosuvastati 2021-0 Yes [id number] 10mg Take 1 [facility] n 10 mg 7-06 tablet by ity of tablet 00:00: mouth at [place] 00 bedtime. Medical Branch rosuvastati 2021-0 Yes [id number] 10mg Take 1 [facility] n 10 mg 7-06 tablet by ity of tablet 00:00: mouth at [place] bedtime. Medical Branch rosuvastati 2021- Yes [id number] 10mg Take 1 [facility] n 10 mg 7-06 tablet by ity of tablet 00:00: mouth at [place] 00 bedtime. Medical Branch rosuvastati Yes [id number] 10mg Take 1 [facility] n 10 mg 7-06 tablet by ity of tablet 00:00: mouth at [place] 00 bedtime. Medical Branch rosuvastati Yes [id number] 10mg Take 1 [facility] n 10 mg 7-06 tablet by ity of tablet 00:00: mouth at [place] bedtime. Medical Branch rosuvastati Yes [id number] 10mg Take 1 [facility] n 10 mg 7-06 tablet by ity of tablet 00:00: mouth at [place] bedtime. Medical Branch rosuvastati Yes [id number] 10mg Take 1 [facility] n 10 mg 7-06 tablet by ity of tablet 00:00: mouth at [place] bedtime. Medical Branch rosuvastati Yes [id number] 10mg Take 1 [facility] n 10 mg 7-06 tablet by ity of tablet 00:00: mouth at [place] bedtime. Medical Branch rosuvastati Yes [id number] 10mg Take 1 [facility] n 10 mg 7-06 tablet by ity of tablet 00:00: mouth at [place] [address] bedtime. Medical Branch rosuvastati Yes [id number] 10mg Take 1 [facility] n 10 mg 7-06 tablet by ity of tablet 00:00: mouth at [place] [address] bedtime. Medical Branch rosuvastati Yes [id number] 10mg Take 1 [facility] n 10 mg 7-06 tablet by ity of tablet 00:00: mouth at [place] [address] bedtime. Medical Branch rosuvastati 2021- Yes [id number] 10mg Take 1 [facility] n 10 mg 7-06 tablet by ity of tablet 00:00: mouth at [place] [address] bedtime. Medical Branch rosuvastati Yes [id number] 10mg Take 1 [facility] n 10 mg 7-06 tablet by ity of tablet 00:00: mouth at [place] [address] bedtime. Medical Branch rosuvastati Yes [id number] 10mg Take 1 [facility] n 10 mg 7-06 tablet by ity of tablet 00:00: mouth at [place] [address] bedtime. Medical Branch rosuvastati 2021- Yes [id number] 10mg Take 1 [facility] n 10 mg 7-06 tablet by ity of tablet 00:00: mouth at [place] 00 bedtime. Medical Branch rosuvastati Yes [id number] 10mg Take 1 [facility] n 10 mg 7-06 tablet by ity of tablet 00:00: mouth at [place] bedtime. Medical Branch rosuvastati Yes [id number] 10mg Take 1 [facility] n 10 mg 7-06 tablet by ity of tablet 00:00: mouth at [place] bedtime. Medical Branch rosuvastati Yes [id number] 10mg Take 1 [facility] n 10 mg 7-06 tablet by ity of tablet 00:00: mouth at [place] bedtime. Medical Branch rosuvastati Yes [id number] 10mg Take 1 [facility] n 10 mg 7-06 tablet by ity of tablet 00:00: mouth at [place] bedtime. Medical Branch rosuvastati Yes [id number] 10mg Take 1 [facility] n 10 mg 7-06 tablet by ity of tablet 00:00: mouth at [place] bedtime. Medical Branch rosuvastati Yes [id number] 10mg Take 1 [facility] n 10 mg 7-06 tablet by ity of tablet 00:00: mouth at [place] bedtime. Medical Branch rosuvastati Yes [id number] 10mg Take 1 [facility] n 10 mg 7-06 tablet by ity of tablet 00:00: mouth at [place] bedtime. Medical Branch rosuvastati Yes [id number] 10mg Take 1 [facility] n 10 mg 7-06 tablet by ity of tablet 00:00: mouth at [place] bedtime. Medical Branch rosuvastati 2021- Yes [id number] 10mg Take 1 [facility] n 10 mg 7-06 tablet by ity of tablet 00:00: mouth at [place] bedtime. Medical Branch rosuvastati Yes [id number] 10mg Take 1 [facility] n 10 mg 7-06 tablet by ity of tablet 00:00: mouth at [place] bedtime. Medical Branch rosuvastati 2021-0 Yes [id number] 10mg Take 1 [facility] n 10 mg 7-06 tablet by ity of tablet 00:00: mouth at [place] 00 bedtime. Medical Branch rosuvastati 2021- Yes [id number] 10mg Take 1 [facility] n 10 mg 7-06 tablet by ity of tablet 00:00: mouth at [place] 00 bedtime. Medical Branch rosuvastati Yes [id number] 10mg Take 1 [facility] n 10 mg 7-06 tablet by ity of tablet 00:00: mouth at [place] 00 bedtime. Medical Branch rosuvastati Yes [id number] 10mg Take 1 [facility] n 10 mg 7-06 tablet by ity of tablet 00:00: mouth at [place] 00 bedtime. Medical Branch rosuvastati Yes [id number] 10mg Take 1 [facility] n 10 mg 7-06 tablet by ity of tablet 00:00: mouth at [place] 00 bedtime. Medical Branch rosuvastati 2022- No [id number] 10mg Take 1 [facility] n 10 mg 7-06 02-17 tablet by ity of tablet 00:00: 00:00 mouth at [place] 00 :00 bedtime. Medical Branch rosuvastati 2022- No [id number] 10mg Take 1 [facility] n 10 mg 7-06 02-17 tablet by ity of tablet 00:00: 00:00 mouth at [place] 00 :00 bedtime. Medical Branch rosuvastati 2022- No [id number] 10mg Take 1 [facility] n 10 mg [...] No Apply to U nivers % ointment 6-30 07-20 area(s) 3 ity of 00:00: 00:00 (three) [place] 00 :00 times Medical daily. Branch PROCTO-MED 2021-0 Yes APPLY TO Uni [...] [place] cream 00 DIRECTED Medical Branch HYDROcodone 2021-0 Yes TAKE 1 Univ ers [...] for Branch Constipati on. chlorhexidi 2021-0 Yes [id number] 15mL [place] and [facility] ne 0.12 % 3-23 spit out ity of mouthwash 00:00: 15 mL 2 [place] 00 (two) Medical times Branch daily. chlorhexidi 2022-0 Yes [id number] 15mL [place]ish and Univers ne 0.12 % 3-23 spit out ity of mouthwash 00:00: 15 mL 2 [place] 00 (two) Medical times Branch daily. chlorhexidi 2022-0 Yes [id number] 15mL [place]ish and Univers ne 0.12 % 3-23 spit out ity of mouthwash 00:00: 15 mL 2 [place] 00 (two) Medical times Branch daily. chlorhexidi 2-0 Yes [id number] 15mL [place]ish and Univers ne 0.12 % 3-23 spit out ity of mouthwash 00:00: 15 mL 2 [place] 00 (two) Medical times Branch daily. chlorhexidi 2021- No [id number] 15mL [place] and [facility] ne 0.12 % 3-23 07-20 spit out ity o f mouthwash 00:00: 00:00 15 mL 2 [place] :[place] (two) Medical times Branch daily. docusate Yes 100mg Take 100 [facility] ers [...] [place] capsule 44 daily. Medical Branch docusate 2022-0 Yes 100mg [...] [place] capsule 44 daily. Medical Branch docusate 2022-0 Yes 100mg [...] 44 daily. Medical Branch linaCLOtide 2020-02 Yes [id number] 145ug Take 1 [facility] (LINZESS) 1-01 capsule by ity of 145 mcg 00:00: mouth once [place] capsule 00 daily as Medical needed for Branch Constipati on. apixaban 5 2020-02 Yes 5mg Take 1 [facility]ive rs mg tablet 1-01 tablet by ity o f 00:00: mouth 2 00 (two) Medical times Branch daily. Indication s: take 1 tablet by mouth 2 (two) times daily. ezetimibe 2020-02 Yes [id number] 10mg Take 1 U nivers 10 mg 1-01 tablet by ity of tablet 00:00: mouth [place] 00 daily. Medical Branch metoprolol 2020-02 Yes [id number] 25mg Take 1 U nivers tartrate 25 1-01 tablet by ity of mg tablet 00:00: mouth 2 00 (two) Medical times Branch daily. omeprazole 2020-02 Yes [id number] 20mg Take 1 [facility] 20 mg 1-01 capsule by ity of capsule 00:00: mouth [place] 00 daily. [facility] fluconazole 2020-02 Yes [id number] 100mg Take 1 [facility] 100 mg 1-01 tablet by [facility] of tablet 00:00: mouth [place] 00 daily. [facility] linaCLOtide 2020-02 Yes [id number] 145ug Take 1 [facility] (LINZESS) 1-01 capsule [...] 2 (two) times daily. ezetimibe 2020-02 Yes [id number] 10mg Take 1 [facility] nivers 10 mg 1-01 tablet by [facility] of tablet 00:00: mouth [place] 00 daily. [facility] metoprolol 2020-02 Yes [id number] 25mg Take 1 [facility] nivers tartrate 25 1-01 tablet by ity of mg tablet 00:00: mouth 2 [place] 00 (two) Medical times Branch daily. omeprazole 2020-02 Yes [id number] 20mg Take 1 [facility] 20 mg 1-01 capsule by [facility] of capsule 00:00: mouth [place] 00 daily. [facility] fluconazole 2020-02 Yes [id number] 100mg Take 1 [facility] 100 mg 1-01 tablet by [facility] of tablet 00:00: mouth [place] 00 daily. [facility] linaCLOtide 2020-02 Yes [id number] 145ug Take 1 [facility] (LINZESS) 1-01 capsule [...] 2 (two) times daily. ezetimibe 2020-02 Yes [id number] 10mg Take 1 [facility] 10 mg 1-01 tablet by [facility] of tablet 00:00: mouth [place] 00 daily. [facility] metoprolol 2020-02 Yes [id number] 25mg Take 1 [facility] tartrate 25 1-01 tablet by [facility] of mg tablet 00:00: mouth 2 [place] (two) Medical times Branch daily. omeprazole 2020-02 Yes [id number] 20mg Take 1 [facility] 20 mg 1-01 capsule by [facility] of capsule 00:00: mouth [place] 00 daily. [facility] fluconazole 2020-02 Yes [id number] 100mg Take 1 [facility] 100 mg 1-01 tablet by [facility] of tablet 00:00: mouth [place] 00 daily. [facility] linaCLOtide 2020-02 Yes [id number] 145ug Take 1 [facility] (LINZESS) 1-01 capsule [...] 2 (two) times daily. ezetimibe 2020-02 Yes [id number] 10mg Take 1 [facility] n[facility] 10 mg 1-01 tablet by [facility] of tablet 00:00: mouth [place] 00 daily. [facility] metoprolol 2020-02 Yes [id number] 25mg Take 1 [facility] n[facility] tartrate 25 1-01 tablet by [facility] of mg tablet 00:00: mouth 2 (two) Medical times Branch daily. omeprazole 2020-02 Yes [id number] 20mg Take 1 [facility] 20 mg 1-01 capsule by [facility] of capsule 00:00: mouth [place] 00 daily. [facility] fluconazole 2020-02 Yes [id number] 100mg Take 1 [facility] 100 mg 1-01 tablet by [facility] of tablet 00:00: mouth [place] 00 daily. [facility] linaCLOtide 2020-02 Yes [id number] 145ug Take 1 [facility] (LINZESS) 1-01 capsule [...] 2 (two) times daily. ezetimibe 2020-02 Yes [id number] 10mg Take 1 [facility] 10 mg 1-01 tablet by [facility] of tablet 00:00: mouth 00 daily. [facility] metoprolol 2020-02 Yes [id number] 25mg Take 1 [facility] nivers tartrate 25 1-01 tablet by [facility] of mg tablet 00:00: mouth 2 (two) Medical times Branch daily. linaCLOtide 2020-02 Yes [id number] 145ug Take 1 [facility] (LINZESS) 1-01 capsule [...] 2 (two) times daily. ezetimibe 2020-02 Yes [id number] 10mg Take 1 [facility] 10 mg 1-01 tablet by [facility] of tablet 00:00: mouth 00 daily. [facility] metoprolol 2020-02 Yes [id number] 25mg Take 1 [facility] nivers tartrate 25 1-01 tablet by [facility] of mg tablet 00:00: mouth (two) Medical times Branch daily. linaCLOtide 2020-02 Yes [id number] 145ug Take 1 [facility] (LINZESS) 1-01 capsule [...] 2 (two) times daily. metoprolol 2020-02 Yes [id number] 25mg Take 1 [facility] nivers tartrate 25 1-01 tablet by [facility] of mg tablet 00:00: mouth 2 (two) Medical times Branch daily. linaCLOtide 2020-02 Yes [id number] 145ug Take 1 [facility] (LINZESS) 1-01 capsule [...] 2 (two) times daily. metoprolol 2020-02 Yes [id number] 25mg Take 1 [facility] nivers tartrate 25 1-01 tablet by [facility] of mg tablet 00:00: mouth 2 (two) Medical times Branch daily. linaCLOtide 2020-02 Yes [id number] 145ug Take 1 [facility] (LINZESS) 1-01 capsule [...] 2 (two) times daily. metoprolol 2020-02 Yes [id number] 25mg Take 1 [facility] nivers tartrate 25 1-01 tablet by [facility] of mg tablet 00:00: mouth 2 (two) Medical times Branch daily. linaCLOtide 2020-02 Yes [id number] 145ug Take 1 [facility] (LINZESS) 1-01 capsule [...] 2 (two) times daily. metoprolol 2020-02 Yes [id number] 25mg Take 1 [facility] nivers tartrate 25 1-01 tablet by [facility] of mg tablet 00:00: mouth 2 (two) Medical times Branch daily. linaCLOtide 2020-02 Yes [id number] 145ug Take 1 [facility] (LINZESS) 1-01 capsule [...] 2 (two) times daily. metoprolol 2020-02 Yes [id number] 25mg Take 1 [facility] nivers tartrate 25 1-01 tablet by [facility] of mg tablet 00:00: mouth 2 (two) Medical times Branch daily. linaCLOtide 2020-02 Yes [id number] 145ug Take 1 [facility] (LINZESS) 1-01 capsule [...] 2 (two) times daily. metoprolol 2020-02 Yes [id number] 25mg Take 1 [facility] nivers tartrate 25 1-01 tablet by [facility] of mg tablet 00:00: mouth 2 (two) Medical times Branch daily. linaCLOtide 2020-02 Yes [id number] 145ug Take 1 [facility] (LINZESS) 1-01 capsule [...] 2 (two) times daily. metoprolol 2020-02 Yes [id number] 25mg Take 1 [facility] nivers tartrate 25 1-01 tablet by [facility] of mg tablet 00:00: mouth 2 (two) Medical times Branch daily. linaCLOtide 2020-02 Yes [id number] 145ug Take 1 [facility] (LINZESS) 1-01 capsule [...] 2 (two) times daily. metoprolol 2020-02 Yes [id number] 25mg Take 1 [facility] nivers tartrate 25 1-01 tablet by [facility] of mg tablet 00:00: mouth 2 (two) Medical times Branch daily. linaCLOtide 2020-02 Yes [id number] 145ug Take 1 [facility] (LINZESS) 1-01 capsule [...] 2 (two) times daily. metoprolol 2020-02 Yes [id number] 25mg Take 1 [facility] nivers tartrate 25 1-01 tablet by [facility] of mg tablet 00:00: mouth 2 (two) Medical times Branch daily. linaCLOtide 2020-02 Yes [id number] 145ug Take 1 [facility] (LINZESS) 1-01 capsule [...] 2 (two) times daily. metoprolol 2020-02 Yes [id number] 25mg Take 1 [facility] nivers tartrate 25 1-01 tablet by [facility] of mg tablet 00:00: mouth 2 (two) Medical times Branch daily. linaCLOtide 2020-02 Yes [id number] 145ug Take 1 [facility] (LINZESS) 1-01 capsule [...] 2 (two) times daily. metoprolol 2020-02 Yes [id number] 25mg Take 1 [facility] nivers tartrate 25 1-01 tablet by [facility] of mg tablet 00:00: mouth 2 (two) Medical times Branch daily. linaCLOtide 2020-02 Yes [id number] 145ug Take 1 [facility] (LINZESS) 1-01 capsule [...] 2 (two) times daily. metoprolol 2020-02 Yes [id number] 25mg Take 1 [facility] nivers tartrate 25 1-01 tablet by [facility] of mg tablet 00:00: mouth 2 (two) Medical times Branch daily. linaCLOtide 2020-02 Yes [id number] 145ug Take 1 [facility] (LINZESS) 1-01 capsule [...] 2 (two) times daily. metoprolol 2020-02 Yes [id number] 25mg Take 1 [facility] nivers tartrate 25 1-01 tablet by [facility] of mg tablet 00:00: mouth 2 (two) Medical times Branch daily. linaCLOtide 2020-02 Yes [id number] 145ug Take 1 [facility] (LINZESS) 1-01 capsule [...] 2 (two) times daily. metoprolol 2020-02 Yes [id number] 25mg Take 1 [facility] nivers tartrate 25 1-01 tablet by [facility] of mg tablet 00:00: mouth 2 (two) Medical times Branch daily. linaCLOtide 2020-02 Yes [id number] 145ug Take 1 [facility] (LINZESS) 1-01 capsule [...] 2 (two) times daily. metoprolol 2020-02 Yes [id number] 25mg Take 1 [facility] nivers tartrate 25 1-01 tablet by [facility] of mg tablet 00:00: mouth 2 (two) Medical times Branch daily. linaCLOtide 2020-02 Yes [id number] 145ug Take 1 [facility] (LINZESS) 1-01 capsule [...] 2 (two) times daily. linaCLOtide 2020-02 Yes [id number] 145ug Take 1 [facility] (LINZESS) 1-01 capsule [...] 2 (two) times daily. linaCLOtide 2020-02 Yes [id number] 145ug Take 1 [facility] (LINZESS) 1-01 capsule [...] 2 (two) times daily. linaCLOtide 2020-02 Yes [id number] 145ug Take 1 [facility] (LINZESS) 1-01 capsule by [facility] 145 mcg 00:00: mouth [place] capsule 00 daily as Medical needed for Branch Constipati on. linaCLOtide 2020-02 Yes [id number] 145ug Take 1 [facility] (LINZESS) 1-01 capsule by [facility] 145 mcg 00:00: mouth [place] capsule 00 daily as Medical needed for Branch Constipati on. linaCLOtide 2020-02 Yes [id number] 145ug Take 1 [facility] (LINZESS) 1-01 capsule by [facility] 145 mcg 00:00: mouth [place] capsule 00 daily as Medical needed for Branch Constipati on. linaCLOtide 2020-02 Yes [id number] 145ug Take 1 [facility] (LINZESS) 1-01 capsule by [facility] 145 mcg 00:00: mouth [place] capsule 00 daily as Medical needed for Branch Constipati on. linaCLOtide 2020-02 Yes [id number] 145ug Take 1 [facility] (LINZESS) 1-01 capsule by [facility] 145 mcg 00:00: mouth [place] capsule 00 daily as Medical needed for Branch Constipati on. linaCLOtide 2020-02 Yes [id number] 145ug Take 1 [facility] (LINZESS) 1-01 capsule by [facility] 145 mcg 00:00: mouth once [place] capsule 00 daily as Medical needed for Branch Constipati on. linaCLOtide 2020-02 Yes [id number] 145ug Take 1 [facility] (LINZESS) 1-01 capsule by [facility] 145 mcg 00:00: mouth [place] capsule 00 daily as Medical needed for Branch Constipati on. linaCLOtide 2020-02 Yes [id number] 145ug Take 1 [facility] (LINZESS) 1-01 capsule by [facility] 145 mcg 00:00: mouth once [place] capsule 00 daily as Medical needed for Branch Constipati on. linaCLOtide 2020-02 Yes [id number] 145ug Take 1 [facility] (LINZESS) 1-01 capsule by [facility] of 145 mcg 00:00: mouth once [place] capsule 00 daily as Medical needed for Branch Constipati on. linaCLOtide 2020-02 Yes [id number] 145ug Take 1 [facility] (LINZESS) 1-01 capsule by [facility] of 145 mcg 00:00: mouth once [place] capsule 00 daily as Medical needed for Branch Constipati on. linaCLOtide 2020-02 Yes [id number] 145ug Take 1 [facility] (LINZESS) 1-01 capsule by [facility] of 145 mcg 00:00: mouth once [place] capsule 00 daily as Medical needed for Branch Constipati on. linaCLOtide 2020-02 Yes [id number] 145ug Take 1 [facility] (LINZESS) 1-01 capsule by [facility] of 145 mcg 00:00: mouth once [place] capsule 00 daily as Medical needed for Branch Constipati on. linaCLOtide 2020-02 Yes [id number] 145ug Take 1 [facility] (LINZESS) 1-01 capsule by [facility] of 145 mcg 00:00: mouth once [place] capsule 00 daily as Medical needed for Branch Constipati on. linaCLOtide 2020-02 Yes [id number] 145ug Take 1 [facility] (LINZESS) 1- capsule by [facility] of 145 mcg 00:00: mouth once [place] capsule 00 daily as Medical needed for Branch Constipati on. linaCLOtide 2020-02 Yes [id number] 145ug Take 1 [facility] (LINZESS) 1-01 capsule by [facility] of 145 mcg 00:00: mouth once [place] capsule 00 daily as Medical needed for Branch Constipati on. linaCLOtide 2020-02 Yes [id number] 145ug Take 1 [facility] (LINZESS) 1-01 capsule by [facility] of 145 mcg 00:00: mouth once [place] capsule 00 daily as Medical needed for Branch Constipati on. linaCLOtide 2020-02 Yes [id number] 145ug Take 1 [facility] (LINZESS) 1-01 capsule by [facility] of 145 mcg 00:00: mouth once [place] capsule 00 daily as Medical needed for Branch Constipati on. linaCLOtide 2020-02 Yes [id number] 145ug Take 1 [facility] (LINZESS) 1-01 capsule by [facility] of 145 mcg 00:00: mouth once [place] capsule 00 daily as Medical needed for Branch Constipati on. linaCLOtide 2020-02 Yes [id number] 145ug Take 1 [facility] (LINZESS) 1-01 capsule by [facility] of 145 mcg 00:00: mouth once [place] capsule 00 daily as Medical needed for Branch Constipati on. linaCLOtide 2020-02 Yes [id number] 145ug Take 1 [facility] (LINZESS) 1-01 capsule by [facility] of 145 mcg 00:00: mouth once [place] capsule 00 daily as Medical needed for Branch Constipati on. linaCLOtide 2020-02 Yes [id number] 145ug Take 1 [facility] (LINZESS) 1-01 capsule by [facility] of 145 mcg 00:00: mouth once [place] capsule 00 daily as Medical needed for Branch Constipati on. linaCLOtide 2020-02 Yes [id number] 145ug Take 1 [facility] (LINZESS) 1-01 capsule by [facility] of 145 mcg 00:00: mouth once [place] capsule 00 daily as Medical needed for Branch Constipati on. linaCLOtide 2020-02 Yes [id number] 145ug Take 1 [facility] (LINZESS) 1-01 capsule by [facility] of 145 mcg 00:00: mouth once [place] capsule 00 daily as Medical needed for Branch Constipati on. linaCLOtide 2020-02 Yes [id number] 145ug Take 1 [facility] (LINZESS) 1-01 capsule by [facility] of 145 mcg 00:00: mouth once [place] capsule 00 daily as Medical needed for Branch Constipati on. linaCLOtide 2020-02 Yes [id number] 145ug Take 1 [facility] (LINZESS) 1-01 capsule by [facility]y of 145 mcg 00:00: mouth once [place] capsule 00 daily as Medical needed for Branch Constipati on. linaCLOtide 2020-02 Yes [id number] 145ug Take 1 [facility] (LINZESS) 1-01 capsule by [facility]y of 145 mcg 00:00: mouth once [place] capsule 00 daily as Medical needed for Branch Constipati on. linaCLOtide 2020-02 Yes [id number] 145ug Take 1 [facility] (LINZESS) 1-01 capsule by [facility] of 145 mcg 00:00: mouth once [place] capsule 00 daily as Medical needed for Branch Constipati on. linaCLOtide 2020-02 Yes [id number] 145ug Take 1 [facility] (LINZESS) 1-01 capsule by [facility] of 145 mcg 00:00: mouth once [place] capsule 00 daily as Medical needed for Branch Constipati on. linaCLOtide 2020-02 Yes [id number] 145ug Take 1 [facility] (LINZESS) 1-01 capsule by [facility] of 145 mcg 00:00: mouth once [place] capsule 00 daily as Medical needed for Branch Constipati on. linaCLOtide 2020-02 Yes [id number] 145ug Take 1 [facility] (LINZESS) 1-01 capsule by [facility] of 145 mcg 00:00: mouth once [place] capsule 00 daily as Medical needed for Branch Constipati on. linaCLOtide 2020-02 Yes [id number] 145ug Take 1 [facility] (LINZESS) 1-01 capsule by [facility] of 145 mcg 00:00: mouth once [place] capsule 00 daily as Medical needed for Branch Constipati on. linaCLOtide 2020-02 Yes [id number] 145ug Take 1 [facility] (LINZESS) 1-01 capsule by [facility] of 145 mcg 00:00: mouth once [place] capsule 00 daily as Medical needed for Branch Constipati on. linaCLOtide 2020-02 Yes [id number] 145ug Take 1 [facility] (LINZESS) 1-01 capsule by [facility] of 145 mcg 00:00: mouth once [place] capsule 00 daily as Medical needed for Branch Constipati on. linaCLOtide 2020-02 Yes [id number] 145ug Take 1 [facility] (LINZESS) 1-01 capsule by [facility] of 145 mcg 00:00: mouth once [place] capsule 00 daily as Medical needed for Branch Constipati on. linaCLOtide 2020-02 Yes [id number] 145ug Take 1 [facility] (LINZESS) 1-01 capsule by [facility] of 145 mcg 00:00: mouth once [place] capsule 00 daily as Medical needed for Branch Constipati on. linaCLOtide 2020-02 Yes [id number] 145ug Take 1 [facility] (LINZESS) 1-01 capsule by [facility] of 145 mcg 00:00: mouth once [place] capsule 00 daily as Medical needed for Branch Constipati on. linaCLOtide 2020-02 Yes [id number] 145ug Take 1 [facility] (LINZESS) 1-01 capsule by [facility] of 145 mcg 00:00: mouth once [place] capsule 00 daily as Medical needed for Branch Constipati on. linaCLOtide 2020-02 Yes [id number] 145ug Take 1 [facility] (LINZESS) 1-01 capsule by [facility] of 145 mcg 00:00: mouth once [place] capsule 00 daily as Medical needed for Branch Constipati on. linaCLOtide 2020-02 Yes [id number] 145ug Take 1 [facility] (LINZESS) 1-01 capsule by [facility] of 145 mcg 00:00: mouth once [place] capsule 00 daily as Medical needed for Branch Constipati on. linaCLOtide 2020-02 Yes [id number] 145ug Take 1 [facility] (LINZESS) 1-01 capsule by [facility] of 145 mcg 00:00: mouth once [place] capsule 00 daily as Medical needed for Branch Constipati on. linaCLOtide 2020-02 Yes [id number] 145ug Take 1 [facility] (LINZESS) 1-01 capsule by [facility]y of 145 mcg 00:00: mouth once [place] capsule 00 daily as Medical needed for Branch Constipati on. linaCLOtide 2020-02 Yes [id number] 145ug Take 1 [facility] (LINZESS) 1-01 capsule by [facility]y of 145 mcg 00:00: mouth once [place] capsule 00 daily as Medical needed for Branch Constipati on. linaCLOtide 2020-02 Yes [id number] 145ug Take 1 [facility] (LINZESS) 1-01 capsule by [facility]y of 145 mcg 00:00: mouth once [place] capsule 00 daily as Medical needed for Branch Constipati on. linaCLOtide 2020-02 Yes [id number] 145ug Take 1 [facility] (LINZESS) 1-01 capsule by [facility] of 145 mcg 00:00: mouth once [place] capsule 00 daily as Medical needed for Branch Constipati on. linaCLOtide 2020-02 Yes [id number] 145ug Take 1 [facility] (LINZESS) 1-01 capsule by [facility]y of 145 mcg 00:00: mouth once [place] capsule 00 daily as Medical needed for Branch Constipati on. linaCLOtide 2020-02 Yes [id number] 145ug Take 1 [facility] (LINZESS) 1-01 capsule by ity of 145 mcg 00:00: mouth once [place] capsule 00 daily as Medical needed for Branch Constipati on. linaCLOtide 2020-02 Yes [id number] 145ug Take 1 [facility] (LINZESS) 1-01 capsule by [facility]y of 145 mcg 00:00: mouth once [place] capsule 00 daily as Medical needed for Branch Constipati on. linaCLOtide 2020-02 Yes [id number] 145ug Take 1 [facility] (LINZESS) 1-01 capsule by [facility]y of 145 mcg 00:00: mouth once [place] capsule 00 daily as Medical needed for Branch Constipati on. linaCLOtide 2020-02 Yes [id number] 145ug Take 1 [facility] (LINZESS) 1-01 capsule by [facility]y of 145 mcg 00:00: mouth once [place] capsule 00 daily as Medical needed for Branch Constipati on. linaCLOtide 2020-02 Yes [id number] 145ug Take 1 [facility] (LINZESS) 1-01 capsule by [facility]y of 145 mcg 00:00: mouth once [place] capsule 00 daily as Medical needed for Branch Constipati on. linaCLOtide 2020-02 Yes [id number] 145ug Take 1 [facility] (LINZESS) 1-01 capsule by [facility]y of 145 mcg 00:00: mouth once [place] capsule 00 daily as Medical needed for Branch Constipati on. linaCLOtide 2020-02 Yes [id number] 145ug Take 1 [facility] (LINZESS) 1-01 capsule by ity of 145 mcg 00:00: mouth once [place] capsule 00 daily as Medical needed for Branch Constipati on. linaCLOtide 2020-02 Yes [id number] 145ug Take 1 [facility] (LINZESS) 1-01 capsule by ity of 145 mcg 00:00: mouth once [place] capsule 00 daily as Medical needed for Branch Constipati on. linaCLOtide 2020-02 Yes [id number] 145ug Take 1 [facility] (LINZESS) 1-01 capsule by ity of 145 mcg 00:00: mouth once [place] capsule 00 daily as Medical needed for Branch Constipati on. linaCLOtide 2020-02 Yes [id number] 145ug Take 1 [facility] (LINZESS) 1-01 capsule by ity of 145 mcg 00:00: mouth once [place] capsule 00 daily as Medical needed for Branch Constipati on. linaCLOtide 2020-02 Yes [id number] 145ug Take 1 [facility] (LINZESS) 1-01 capsule by [facility]y of 145 mcg 00:00: mouth once [place] capsule 00 daily as Medical needed for Branch Constipati on. linaCLOtide 2020-02 Yes [id number] 145ug Take 1 [facility] (LINZESS) 1-01 capsule by [facility]y of 145 mcg 00:00: mouth once [place] capsule 00 daily as Medical needed for Branch Constipati on. linaCLOtide 2020-02 Yes [id number] 145ug Take 1 [facility] (LINZESS) 1-01 capsule by ity of 145 mcg 00:00: mouth once [place] capsule 00 daily as Medical needed for Branch Constipati on. linaCLOtide 2020-02 Yes [id number] 145ug Take 1 [facility] (LINZESS) 1-01 capsule by ity of 145 mcg 00:00: mouth once [place] capsule 00 daily as Medical needed for Branch Constipati on. linaCLOtide 2020-02 Yes [id number] 145ug Take 1 [facility] (LINZESS) 1-01 capsule by ity of 145 mcg 00:00: mouth once [place] capsule 00 daily as Medical needed for Branch Constipati on. linaCLOtide 2020-02 Yes [id number] 145ug Take 1 [facility] (LINZESS) 1-01 capsule by ity of 145 mcg 00:00: mouth once [place] capsule 00 daily as Medical needed for Branch Constipati on. linaCLOtide 2020-02 Yes [id number] 145ug Take 1 [facility] (LINZESS) 1-01 capsule by ity of 145 mcg 00:00: mouth once [place] capsule 00 daily as Medical needed for Branch Constipati on. linaCLOtide 2020-02 Yes [id number] 145ug Take 1 [facility] (LINZESS) 1-01 capsule by ity of 145 mcg 00:00: mouth once [place] capsule 00 daily as Medical needed for Branch Constipati on. linaCLOtide 2020-02 Yes [id number] 145ug Take 1 [facility] (LINZESS) 1-01 capsule by ity of 145 mcg 00:00: mouth once [place] capsule 00 daily as Medical needed for Branch Constipati on. linaCLOtide 2020-02 Yes [id number] 145ug Take 1 [facility] (LINZESS) 1-01 capsule by ity of 145 mcg 00:00: mouth once [place] capsule 00 daily as Medical needed for Branch Constipati on. linaCLOtide 2020-02 Yes [id number] 145ug Take 1 [facility] (LINZESS) 1-01 capsule by ity of 145 mcg 00:00: mouth once [place] capsule 00 daily as Medical needed for Branch Constipati on. linaCLOtide 2020-02 Yes [id number] 145ug Take 1 [facility] (LINZESS) 1-01 capsule by ity of 145 mcg 00:00: mouth once [place] capsule 00 daily as Medical needed for Branch Constipati on. linaCLOtide 2020-02 Yes [id number] 145ug Take 1 [facility] (LINZESS) 1-01 capsule by ity of 145 mcg 00:00: mouth once [place] capsule 00 daily as Medical needed for Branch Constipati on. linaCLOtide 2020-02 Yes [id number] 145ug Take 1 [facility] (LINZESS) 1- capsule [...] 2 (two) times daily. metoprolol 2020-02- No [id number] 25mg Take 1 [facility] tartrate 25 02-08 tablet by it y of mg tablet 00:00: 00:00 mouth 2 [place] :[place] (two) Medical times [facility] daily. ezetimibe 2020-02- No [id number] 10mg Take 1 [facility] 10 mg 02-08 tablet by ity of tablet 00:00: 00:00 mouth [place] 00 :00 daily. Medical [facility] omeprazole 2020-02- No [id number] 20mg Take 1 [facility] 20 mg 02-0820 capsule by ity of capsule 00:00: 00:00 mouth [place] 00 :00 daily. Medical Branch fluconazole 2020-02- No [id number] 100mg Take 1 [facility] 100 mg 02-0820 tablet by ity of tablet 00:00: 00:00 mouth [place] 00 :00 daily. Medical Branch Arm Brace Yes [id number] PRODUCT: [facility] Misc 8-30 MYOPRO ity of 00:00: BRACE; [place] 00 Sig: Use Medical as Branch directed; ICD-10 codes: Z86.73, G81.94 Arm Brace Yes [id number] PRODUCT: [facility] Misc 8-30 MYOPRO ity of 00:00: BRACE; [place] 00 Sig: Use Medical as Branch directed; ICD-10 codes: Z86.73, G81.94 Arm Brace 202-0 Yes [id number] [facility] of 00:00: BRACE; [place] 00 Sig: Use Medical as Branch directed; ICD-10 codes: Z86.73, G81.94 Arm Brace 2020-0 Yes [id number] PRODUCT: [facility] 8-30 MYOPRO ity of 00:00: BRACE; [place] 00 Sig: Use Medical as Branch directed; ICD-10 codes: Z86.73, G81.94 Arm Brace 2020-0 Yes [id number] PRODUCT: [facility] 8-30 MYOPRO ity of 00:00: BRACE; [place] 00 Sig: Use Medical as Branch directed; ICD-10 codes: Z86.73, G81.94 Arm Brace 2020-0 Yes [id number] PRODUCT: [facility] 8-30 MYOPRO ity of 00:00: BRACE; [place] 00 Sig: Use Medical as Branch directed; ICD-10 codes: Z86.73, G81.94 Arm Brace 2020-0 Yes [id number] PRODUCT: [facility] 8-30 MYOPRO ity of 00:00: BRACE; [place] 00 Sig: Use Medical as Branch directed; ICD-10 codes: Z86.73, G81.94 Arm Brace 2020-0 Yes [id number] PRODUCT: [facility] 8-30 MYOPRO ity of 00:00: BRACE; [place] 00 Sig: Use Medical as Branch directed; ICD-10 codes: Z86.73, G81.94 Arm Brace 2020-0 Yes [id number] PRODUCT: [facility] 8-30 MYOPRO ity of 00:00: BRACE; [place] 00 Sig: Use Medical as Branch directed; ICD-10 codes: Z86.73, G81.94 Arm Brace 2020-0 Yes [id number] [facility] ity of 00:00: BRACE; [place] 00 Sig: Use Medical as Branch directed; ICD-10 codes: Z86.73, G81.94 Arm Brace 2021-0 Yes [id number] PRODUCT: [facility] 8-30 MYOPRO ity of 00:00: BRACE; [place] 00 Sig: Use Medical as Branch directed; ICD-10 codes: Z86.73, G81.94 Arm Brace 2020-0 Yes [id number] [facility] ity of 00:00: BRACE; [place] 00 Sig: Use Medical as Branch directed; ICD-10 codes: Z86.73, G81.94 Arm Brace 2020-0 Yes [id number] [facility]: [facility] MY[facility]RO ity of 00:00: BRACE; [place] 00 Sig: Use Medical as Branch directed; ICD-10 codes: Z86.73, G81.94 Arm Brace 2020-0 Yes [id number] [facility]: [facility] MYOPRO ity of 00:00: BRACE; [place] 00 Sig: Use Medical as Branch directed; ICD-10 codes: Z86.73, G81.94 Arm Brace 2020-0 Yes [id number] [facility]: [facility] MY[facility]RO ity of 00:00: BRACE; [place] 00 Sig: Use Medical as Branch directed; ICD-10 codes: Z86.73, G81.94 Arm Brace 2020-0 Yes [id number] PRODUCT: [facility] 8-30 MYOPRO ity of 00:00: BRACE; [place] 00 Sig: Use Medical as Branch directed; ICD-10 codes: Z86.73, G81.94 Arm Brace 2020-0 Yes [id number] PRODUCT: [facility] 8-30 MYOPRO ity of 00:00: BRACE; [place] 00 Sig: Use Medical as Branch directed; ICD-10 codes: Z86.73, G81.94 Arm Brace 2020-0 Yes [id number] [facility]: [facility] MY[facility]RO ity of 00:00: BRACE; [place] 00 Sig: Use Medical as Branch directed; ICD-10 codes: Z86.73, G81.94 Arm Brace 2020-0 Yes [id number] PRODUCT: [facility]isc 8-30 MYOPRO ity of 00:00: BRACE; [place] 00 Sig: Use Medical as Branch directed; ICD-10 codes: Z86.73, G81.94 Arm Brace 2021-0 Yes [id number] PRODUCT: [facility] Misc 8-30 MYOPRO ity of 00:00: BRACE; [place] 00 Sig: Use Medical as Branch directed; ICD-10 codes: Z86.73, G81.94 Arm Brace Yes [id number] PRODUCT: [facility] Misc 8-30 MYOPRO ity of 00:00: BRACE; [place] 00 Sig: Use Medical as Branch directed; ICD-10 codes: Z86.73, G81.94 Arm Brace 0 Yes [id number] PRODUCT: [facility] Misc 8-30 MYOPRO ity of 00:00: BRACE; [place] 00 Sig: Use Medical as Branch directed; ICD-10 codes: Z86.73, G81.94 Arm Brace Yes [id number] PRODUCT: [facility] Misc 8-30 MYOPRO ity of 00:00: BRACE; [place] 00 Sig: Use Medical as Branch directed; ICD-10 codes: Z86.73, G81.94 Arm Brace Yes [id number] [facility] ity of 00:00: BRACE; [place] 00 Sig: Use Medical as Branch directed; ICD-10 codes: Z86.73, G81.94 Arm Brace 0 Yes [id number] [facility] 00:00: BRACE; [place] 00 Sig: Use Medical as Branch directed; ICD-10 codes: Z86.73, G81.94 Arm Brace 0 Yes [id number] [facility] 00:00: BRACE; [place] 00 Sig: Use Medical as Branch directed; ICD-10 codes: Z86.73, G81.94 Arm Brace 0 Yes [id number] PRODUCT: [facility] Misc 8-30 MYOPRO ity of 00:00: BRACE; [place] 00 Sig: Use Medical as Branch directed; ICD-10 codes: Z86.73, G81.94 Arm Brace 0 Yes [id number] PRODUCT: [facility] Misc 8-30 MYOPRO ity of 00:00: BRACE; [place] 00 Sig: Use Medical as Branch directed; ICD-10 codes: Z86.73, G81.94 Arm Brace 2021-0 Yes [id number] PRODUCT: [facility] Misc 8-30 MYOPRO ity of 00:00: BRACE; [place] 00 Sig: Use Medical as Branch directed; ICD-10 codes: Z86.73, G81.94 Arm Brace 2020-0 Yes [id number] PRODUCT: [facility] 00:00: BRACE; [place] 00 Sig: Use Medical as Branch directed; ICD-10 codes: Z86.73, G81.94 Arm Brace 2020-0 Yes [id number] [facility] of 00:00: BRACE; [place] 00 Sig: Use Medical as Branch directed; ICD-10 codes: Z86.73, G81.94 Arm Brace 2020-0 Yes [id number] PRODUCT: [facility] Misc 8-30 MYOPRO ity of 00:00: BRACE; [place] 00 Sig: Use Medical as Branch directed; ICD-10 codes: Z86.73, G81.94 Arm Brace 2020-0 Yes [id number] PRODUCT: [facility] Misc 8-30 MYOPRO ity of 00:00: BRACE; [place] 00 Sig: Use Medical as Branch directed; ICD-10 codes: Z86.73, G81.94 Arm Brace 2020-0 Yes [id number] [facility] of 00:00: BRACE; [place] 00 Sig: Use Medical as Branch directed; ICD-10 codes: Z86.73, G81.94 Arm Brace 2020-0 Yes [id number] [facility] of 00:00: BRACE; [place] 00 Sig: Use Medical as Branch directed; ICD-10 codes: Z86.73, G81.94 Arm Brace 2020-0 Yes [id number] PRODUCT: [facility] Misc 8-30 MYOPRO ity of 00:00: BRACE; [place] 00 Sig: Use Medical as Branch directed; ICD-10 codes: Z86.73, G81.94 Arm Brace 2020-0 Yes [id number] PRODUCT: [facility] Misc 8-30 MYOPRO ity of 00:00: BRACE; [place] 00 Sig: Use Medical as Branch directed; ICD-10 codes: Z86.73, G81.94 Arm Brace 2020-0 Yes [id number] PRODUCT: [facility] Misc 8-30 MYOPRO ity of 00:00: BRACE; [place] 00 Sig: Use Medical as Branch directed; ICD-10 codes: Z86.73, G81.94 Arm Brace 2020-0 Yes [id number] PRODUCT: [facility] Misc 8-30 MYOPRO ity of 00:00: BRACE; [place] 00 Sig: Use Medical as Branch directed; ICD-10 codes: Z86.73, G81.94 Arm Brace 2020-0 Yes [id number] PRODUCT: [facility] Misc 8-30 MYOPRO ity of 00:00: BRACE; [place] 00 Sig: Use Medical as Branch directed; ICD-10 codes: Z86.73, G81.94 Arm Brace 2020-0 Yes [id number] PRODUCT: [facility] Misc 8-30 MYOPRO ity of 00:00: BRACE; [place] 00 Sig: Use Medical as Branch directed; ICD-10 codes: Z86.73, G81.94 Arm Brace 2020-0 Yes [id number] PRODUCT: [facility] Misc 8-30 MYOPRO ity of 00:00: BRACE; [place] 00 Sig: Use Medical as Branch directed; ICD-10 codes: Z86.73, G81.94 Arm Brace 2020-0 Yes [id number] PRODUCT: [facility] Misc 8-30 MYOPRO ity of 00:00: BRACE; [place] 00 Sig: Use Medical as Branch directed; ICD-10 codes: Z86.73, G81.94 Arm Brace 2020-0 Yes [id number] PRODUCT: [facility] Misc 8-30 MYOPRO ity of 00:00: BRACE; [place] 00 Sig: Use Medical as Branch directed; ICD-10 codes: Z86.73, G81.94 Arm Brace 2020-0 Yes [id number] PRODUCT: [facility] Misc 8-30 MYOPRO ity of 00:00: BRACE; [place] 00 Sig: Use Medical as Branch directed; ICD-10 codes: Z86.73, G81.94 Arm Brace 2020-0 Yes [id number] PRODUCT: [facility] Misc 8-30 MYOPRO ity of 00:00: BRACE; [place] 00 Sig: Use Medical as Branch directed; ICD-10 codes: Z86.73, G81.94 Arm Brace 2020-0 Yes [id number] PRODUCT: [facility] Misc 8-30 MYOPRO ity of 00:00: BRACE; [place] 00 Sig: Use Medical as Branch directed; ICD-10 codes: Z86.73, G81.94 Arm Brace 2020-0 Yes [id number] PRODUCT: [facility] Misc 8-30 MYOPRO ity of 00:00: BRACE; [place] 00 Sig: Use Medical as Branch directed; ICD-10 codes: Z86.73, G81.94 Arm Brace 2020-0 Yes [id number] PRODUCT: [facility] Misc 8-30 MYOPRO ity of 00:00: BRACE; [place] 00 Sig: Use Medical as Branch directed; ICD-10 codes: Z86.73, G81.94 Arm Brace 2020-0 Yes [id number] PRODUCT: [facility] Misc 8-30 MYOPRO ity of 00:00: BRACE; [place] 00 Sig: Use Medical as Branch directed; ICD-10 codes: Z86.73, G81.94 Arm Brace 2020-0 Yes [id number] PRODUCT: [facility] Misc 8-30 MYOPRO ity of 00:00: BRACE; [place] 00 Sig: Use Medical as Branch directed; ICD-10 codes: Z86.73, G81.94 Arm Brace 2020-0 Yes [id number] PRODUCT: [facility] Misc 8-30 MYOPRO ity of 00:00: BRACE; [place] 00 Sig: Use Medical as Branch directed; ICD-10 codes: Z86.73, G81.94 Arm Brace 2020-0 Yes [id number] PRODUCT: [facility] Misc 8-30 MYOPRO ity of 00:00: BRACE; [place] 00 Sig: Use Medical as Branch directed; ICD-10 codes: Z86.73, G81.94 Arm Brace 2020-0 Yes [id number] PRODUCT: [facility] Misc 8-30 MYOPRO ity of 00:00: BRACE; [place] 00 Sig: Use Medical as Branch directed; ICD-10 codes: Z86.73, G81.94 Arm Brace 2020-0 Yes [id number] PRODUCT: [facility] Misc 8-30 MYOPRO ity of 00:00: BRACE; [place] 00 Sig: Use Medical as Branch directed; ICD-10 codes: Z86.73, G81.94 Arm Brace 2020-0 Yes [id number] PRODUCT: [facility] Misc 8-30 MYOPRO ity of 00:00: BRACE; [place] 00 Sig: Use Medical as Branch directed; ICD-10 codes: Z86.73, G81.94 Arm Brace 2020-0 Yes [id number] PRODUCT: [facility] Misc 8-30 MYOPRO ity of 00:00: BRACE; [place] 00 Sig: Use Medical as Branch directed; ICD-10 codes: Z86.73, G81.94 Arm Brace 2020-0 Yes [id number] PRODUCT: [facility] Misc 8-30 MYOPRO ity of 00:00: BRACE; [place] 00 Sig: Use Medical as Branch directed; ICD-10 codes: Z86.73, G81.94 Arm Brace 2020-0 Yes [id number] PRODUCT: [facility] Misc 8-30 MYOPRO ity of 00:00: BRACE; [place] 00 Sig: Use Medical as Branch directed; ICD-10 codes: Z86.73, G81.94 Arm Brace 2020-0 Yes [id number] PRODUCT: [facility] Misc 8-30 MYOPRO ity of 00:00: BRACE; [place] 00 Sig: Use Medical as Branch directed; ICD-10 codes: Z86.73, G81.94 Arm Brace 2020-0 Yes [id number] PRODUCT: [facility] Misc 8-30 MYOPRO ity of 00:00: BRACE; [place] 00 Sig: Use Medical as Branch directed; ICD-10 codes: Z86.73, G81.94 Arm Brace 2020-0 Yes [id number] PRODUCT: [facility] Misc 8-30 MYOPRO ity of 00:00: BRACE; [place] 00 Sig: Use Medical as Branch directed; ICD-10 codes: Z86.73, G81.94 Arm Brace 2020-0 Yes [id number] PRODUCT: [facility] Misc 8-30 MYOPRO ity of 00:00: BRACE; [place] 00 Sig: Use Medical as Branch directed; ICD-10 codes: Z86.73, G81.94 Arm Brace 2020-0 Yes [id number] PRODUCT: [facility] Misc 8-30 MYOPRO ity of 00:00: BRACE; [place] 00 Sig: Use Medical as Branch directed; ICD-10 codes: Z86.73, G81.94 Arm Brace 2020-0 Yes [id number] PRODUCT: [facility] Misc 8-30 MYOPRO ity of 00:00: BRACE; [place] 00 Sig: Use Medical as Branch directed; ICD-10 codes: Z86.73, G81.94 Arm Brace 2020-0 Yes [id number] PRODUCT: [facility] Misc 8-30 MYOPRO ity of 00:00: BRACE; [place] 00 Sig: Use Medical as Branch directed; ICD-10 codes: Z86.73, G81.94 Arm Brace 2020-0 Yes [id number] PRODUCT: [facility] Misc 8-30 MYOPRO ity of 00:00: BRACE; [place] 00 Sig: Use Medical as Branch directed; ICD-10 codes: Z86.73, G81.94 Arm Brace 2020-0 Yes [id number] PRODUCT: [facility] Misc 8-30 MYOPRO ity of 00:00: BRACE; [place] 00 Sig: Use Medical as Branch directed; ICD-10 codes: Z86.73, G81.94 Arm Brace 2020-0 Yes [id number] PRODUCT: [facility] Misc 8-30 MYOPRO ity of 00:00: BRACE; [place] 00 Sig: Use Medical as Branch directed; ICD-10 codes: Z86.73, G81.94 Arm Brace 2020-0 Yes [id number] PRODUCT: [facility] Misc 8-30 MYOPRO ity of 00:00: BRACE; [place] 00 Sig: Use Medical as Branch directed; ICD-10 codes: Z86.73, G81.94 Arm Brace 2020-0 Yes [id number] PRODUCT: [facility] Misc 8-30 MYOPRO ity of 00:00: BRACE; [place] 00 Sig: Use Medical as Branch directed; ICD-10 codes: Z86.73, G81.94 Arm Brace 2020-0 Yes [id number] PRODUCT: [facility] Misc 8-30 MYOPRO ity of 00:00: BRACE; [place] 00 Sig: Use Medical as Branch directed; ICD-10 codes: Z86.73, G81.94 Arm Brace 2020-0 Yes [id number] PRODUCT: [facility] Misc 8-30 MYOPRO ity of 00:00: BRACE; [place] 00 Sig: Use Medical as Branch directed; ICD-10 codes: Z86.73, G81.94 Arm Brace 202-0 Yes [id number] PRODUCT: [facility] Misc 8-30 MYOPRO ity of 00:00: BRACE; [place] 00 Sig: Use Medical as Branch directed; ICD-10 codes: Z86.73, G81.94 Arm Brace 2020-0 Yes [id number] PRODUCT: [facility] Misc 8-30 MYOPRO ity of 00:00: BRACE; [place] 00 Sig: Use Medical as Branch directed; ICD-10 codes: Z86.73, G81.94 Arm Brace 2020-0 Yes [id number] PRODUCT: [facility] Misc 8-30 MYOPRO ity of 00:00: BRACE; [place] 00 Sig: Use Medical as Branch directed; ICD-10 codes: Z86.73, G81.94 Arm Brace 2020-0 Yes [id number] PRODUCT: [facility] Misc 8-30 MYOPRO ity of 00:00: BRACE; [place] 00 Sig: Use Medical as Branch directed; ICD-10 codes: Z86.73, G81.94 Arm Brace 2020-0 Yes [id number] PRODUCT: [facility] Misc 8-30 MYOPRO ity of 00:00: BRACE; [place] 00 Sig: Use Medical as Branch directed; ICD-10 codes: Z86.73, G81.94 Arm Brace 2020-0 Yes [id number] PRODUCT: [facility] Misc 8-30 MYOPRO ity of 00:00: BRACE; [place] 00 Sig: Use Medical as Branch directed; ICD-10 codes: Z86.73, G81.94 Arm Brace 2020-0 Yes [id number] PRODUCT: [facility] Misc 8-30 MYOPRO ity of 00:00: BRACE; [place] 00 Sig: Use Medical as Branch directed; ICD-10 codes: Z86.73, G81.94 Arm Brace 2020-0 Yes [id number] PRODUCT: [facility] Misc 8-30 MYOPRO ity of 00:00: BRACE; [place] 00 Sig: Use Medical as Branch directed; ICD-10 codes: Z86.73, G81.94 Arm Brace 202-0 Yes [id number] PRODUCT: [facility] Misc 8-30 MYOPRO ity of 00:00: BRACE; [place] 00 Sig: Use Medical as Branch directed; ICD-10 codes: Z86.73, G81.94 Arm Brace 202-0 Yes [id number] PRODUCT: [facility] Misc 8-30 MYOPRO ity of 00:00: BRACE; [place] 00 Sig: Use Medical as Branch directed; ICD-10 codes: Z86.73, G81.94 Arm Brace 2020-0 Yes [id number] PRODUCT: [facility] Misc 8-30 MYOPRO ity of 00:00: BRACE; [place] 00 Sig: Use Medical as Branch directed; ICD-10 codes: Z86.73, G81.94 Arm Brace 2020-0 Yes [id number] PRODUCT: [facility] Misc 8-30 MYOPRO ity of 00:00: BRACE; [place] 00 Sig: Use Medical as Branch directed; ICD-10 codes: Z86.73, G81.94 Arm Brace 2020-0 Yes [id number] PRODUCT: [facility] Misc 8-30 MYOPRO ity of 00:00: BRACE; [place] 00 Sig: Use Medical as Branch directed; ICD-10 codes: Z86.73, G81.94 Arm Brace 2020-0 Yes [id number] PRODUCT: [facility] Misc 8-30 MYOPRO ity of 00:00: BRACE; [place] 00 Sig: Use Medical as Branch directed; ICD-10 codes: Z86.73, G81.94 Arm Brace 2020-0 Yes [id number] PRODUCT: [facility] Misc 8-30 MYOPRO ity of 00:00: BRACE; [place] 00 Sig: Use Medical as Branch directed; ICD-10 codes: Z86.73, G81.94 Arm Brace 2020-0 Yes [id number] PRODUCT: [facility] Misc 8-30 MYOPRO ity of 00:00: BRACE; [place] 00 Sig: Use Medical as Branch directed; ICD-10 codes: Z86.73, G81.94 Arm Brace 2020-0 Yes [id number] PRODUCT: [facility] Misc 8-30 MYOPRO ity of 00:00: BRACE; [place] 00 Sig: Use Medical as Branch directed; ICD-10 codes: Z86.73, G81.94 Arm Brace 2020-0 Yes [id number] PRODUCT: [facility] Misc 8-30 MYOPRO ity of 00:00: BRACE; [place] 00 Sig: Use Medical as Branch directed; ICD-10 codes: Z86.73, G81.94 Arm Brace 0 Yes [id number] PRODUCT: [facility] Misc 8-30 MYOPRO ity of 00:00: BRACE; [place] 00 Sig: Use Medical as Branch directed; ICD-10 codes: Z86.73, G81.94 Arm Brace 2020-0 Yes [id number] PRODUCT: [facility] Misc 8-30 MYOPRO ity of 00:00: BRACE; [place] 00 Sig: Use Medical as Branch directed; ICD-10 codes: Z86.73, G81.94 KCL 10 mEq 2020-0 Yes 10meq Take 10 Uni vers tablet 8-06 mEq by ity of 15:56: mouth 2 [place] [address] (two) Medical times Branch daily. zinc 0 Yes Take by Univers sulfate 8-06 mouth ity of (ZINC-220 15:56: daily. [place] ORAL) Medical Branch KCL 10 mEq 0 Yes 10meq Take 10 Uni vers tablet 8-06 mEq by ity of 15:56: mouth 2 [place] [address] (two) Medical times Branch daily. zinc 0 Yes Take by Univers sulfate 8-06 mouth ity of (ZINC-220 15:56: daily. [place] ORAL) 37 Medical Branch KCL 10 mEq 2020-0 Yes 10meq Take 10 Uni vers tablet 8-06 mEq by ity of 15:56: mouth 2 [place] [address] (two) Medical times Branch daily. zinc 2020-0 Yes Take by Univers sulfate 8-06 mouth ity of (ZINC-220 15:56: daily. [place] ORAL) 37 Medical Branch KCL 10 mEq 2020-0 Yes 10meq Take 10 Uni vers tablet 8-06 mEq by ity of 15:56: mouth 2 [place] [address] (two) Medical times Branch daily. zinc 2020-0 [...] needed. gluc Yes Take by Univers hernandez/chondro 8-06 mouth ity of hernandez A/vit 15:56: every 12 [place] C/Or 36 (twelve) Medical (GLUCOSAMIN hours. Branch E 1500 COMPLEX ORAL) traMADol 50 2020-0 Yes 50mg Take 50 mg Univers mg tablet 8-06 by mouth ity of 15:56: every 6 [place] 36 (six) Medical hours as Branch needed. zinc oxide 0 Yes [id number] Apply to Univers 3.8 % Oint 8-06 buttock ity of 00:00: [place] [address] Medical Branch zinc oxide 2020-0 Yes [id number] Apply to Univers 3.8 % Oint 8-06 [place] ity of 00:00: [place] [address] Medical Branch zinc oxide 2020-0 Yes [id number] Apply to Univers 3.8 % Oint 8-06 [place] ity of 00:00: [place] [address] Medical Branch zinc oxide 2020-0 Yes [id number] Apply to Univers 3.8 % Oint 8-06 [place] ity of 00:00: [place] [address] Medical Branch zinc oxide 2020-0 2- No [id number] Apply to Univers 3.8 % Oint 8-06 07-20 buttock ity o f 00:00: 00:00 [facility] 00 :00 Medical Branch Miscellaneo Yes [id number] [facility] 08-12 : Use as ity o f Supply Misc 00:00: directed; [place] ICD-10 Medical Z86.73, Branch I69.90, G81.94 Miscellaneo Yes [id number] [facility] : Use as ity o f Supply Misc 00:00: directed; [place] ICD-10 Medical Z86.73, Branch I69.90, G81.94 Miscellaneo Yes [id number] [facility] 08-12 : Use as ity o f Supply Misc 00:00: directed; [place] ICD-10 Medical Z86.73, Branch I69.90, G81.94 Miscellaneo Yes [id number] [facility] 08-12 : Use as ity o f Supply Misc 00:00: directed; [place] ICD-10 Medical Z86.73, Branch I69.90, G81.94 Miscellaneo Yes [id number] [facility] 08-12 : Use as ity o f Supply Misc 00:00: directed; [place] ICD-10 Medical Z86.73, Branch I69.90, G81.94 Miscellaneo Yes [id number] [facility] 08-12 : Use as ity o f Supply Misc 00:00: directed; ex ICD-10 Medical Z86.73, Branch I69.90, G81.94 Miscellaneo Yes [id number] [facility] 08-12 : Use as ity o f Supply Misc 00:00: directed; ex ICD-10 Medical Z86.73, Branch I69.90, G81.94 Miscellaneo Yes [id number] [facility] f Supply Misc 00:00: directed; ex ICD-10 Medical Z86.73, Branch I69.90, G81.94 Miscellaneo Yes [id number] [facility] 08-12 : Use as ity o f Supply Misc 00:00: directed; [place] ICD-10 Medical Z86.73, Branch I69.90, G81.94 Miscellaneo 0 Yes [id number] [facility] 08-12 : Use as ity o f Supply Misc 00:00: directed; [place] ICD-10 Medical Z86.73, Branch I69.90, G81.94 Miscellaneo 0 Yes [id number] [facility] 08-12 : Use as ity o f Supply Misc 00:00: directed; [place] ICD-10 Medical Z86.73, Branch I69.90, G81.94 Miscellaneo Yes [id number] [facility] 08-12 : Use as ity o f Supply Misc 00:00: directed; [place] ICD-10 Medical Z86.73, Branch I69.90, G81.94 Miscellaneo 0 Yes [id number] [facility] 08-12 : Use as ity o f Supply Misc 00:00: directed; [place] ICD-10 Medical Z86.73, Branch I69.90, G81.94 Miscellaneo Yes [id number] [facility] 08-12 : Use as ity o f Supply Misc 00:00: directed; [place] ICD-10 Medical Z86.73, Branch I69.90, G81.94 Miscellaneo 0 Yes [id number] [facility] 08-12 : Use as ity o f Supply Misc 00:00: directed; [place] ICD-10 Medical Z86.73, Branch I69.90, G81.94 Miscellaneo 0 Yes [id number] [facility] 08-12 : Use as ity o f Supply Misc 00:00: directed; [place] ICD-10 Medical Z86.73, Branch I69.90, G81.94 Miscellaneo 0 Yes [id number] [facility] 08-12 : Use as ity o f Supply Misc 00:00: directed; [place] ICD-10 Medical Z86.73, Branch I69.90, G81.94 Miscellaneo 0 Yes [id number] [facility] 08-12 : Use as ity o f Supply Misc 00:00: directed; [place] ICD-10 Medical Z86.73, Branch I69.90, G81.94 Miscellaneo 0 Yes [id number] [facility] 08-12 : Use as ity o f Supply Misc 00:00: directed; [place] ICD-10 Medical Z86.73, Branch I69.90, G81.94 Miscellaneo 0 Yes [id number] [facility] 08-12 : Use as ity o f Supply Misc 00:00: directed; [place] ICD-10 Medical Z86.73, Branch I69.90, G81.94 Miscellaneo 0 Yes [id number] [facility] 08-12 : Use as ity o f Supply Misc 00:00: directed; [place] ICD-10 Medical Z86.73, Branch I69.90, G81.94 Miscellaneo 0 Yes [id number] [facility] 08-12 : Use as ity o f Supply Misc 00:00: directed; [place] ICD-10 Medical Z86.73, Branch I69.90, G81.94 Miscellaneo 0 Yes [id number] [facility] 08-12 : Use as ity o f Supply Misc 00:00: directed; [place] ICD-10 Medical Z86.73, Branch I69.90, G81.94 Miscellaneo 0 Yes [id number] [facility] 08-12 : Use as ity o f Supply Misc 00:00: directed; [place] ICD-10 Medical Z86.73, Branch I69.90, G81.94 Miscellaneo 0 Yes [id number] [facility] 08-12 : Use as ity o f Supply Misc 00:00: directed; [place] ICD-10 Medical Z86.73, Branch I69.90, G81.94 Miscellaneo 0 Yes [id number] [facility] 08-12 : Use as ity o f Supply Misc 00:00: directed; [place] ICD-10 Medical Z86.73, Branch I69.90, G81.94 Miscellaneo Yes [id number] [facility] 08-12 : Use as ity o f Supply Misc 00:00: directed; [place] ICD-10 Medical Z86.73, Branch I69.90, G81.94 Miscellaneo Yes [id number] [facility] 08-12 : Use as ity o f Supply Misc 00:00: directed; [place] ICD-10 Medical Z86.73, Branch I69.90, G81.94 Miscellaneo Yes [id number] [facility] 08-12 : Use as ity o f Supply Misc 00:00: directed; [place] ICD-10 Medical Z86.73, Branch I69.90, G81.94 Miscellaneo Yes [id number] [facility] 08-12 : Use as ity o f Supply Misc 00:00: directed; [place] ICD-10 Medical Z86.73, Branch I69.90, G81.94 Miscellaneo Yes [id number] [facility] 08-12 : Use as ity o f Supply Misc 00:00: directed; [place] ICD-10 Medical Z86.73, Branch I69.90, G81.94 Miscellaneo Yes [id number] [facility] 08-12 : Use as ity o f Supply Misc 00:00: directed; [place] ICD-10 Medical Z86.73, Branch I69.90, G81.94 Miscellaneo Yes [id number] [facility] 08-12 : Use as ity o f Supply Misc 00:00: directed; [place] ICD-10 Medical Z86.73, Branch I69.90, G81.94 Miscellaneo 0 Yes [id number] [facility] 08-12 : Use as ity o f Supply Misc 00:00: directed; [place] ICD-10 Medical Z86.73, Branch I69.90, G81.94 Miscellaneo 0 Yes [id number] [facility] 08-12 : Use as ity o f Supply Misc 00:00: directed; [place] ICD-10 Medical Z86.73, Branch I69.90, G81.94 Miscellaneo Yes [id number] [facility] 08-12 : Use as ity o f Supply Misc 00:00: directed; [place] ICD-10 Medical Z86.73, Branch I69.90, G81.94 Miscellaneo 0 Yes [id number] [facility] 08-12 : Use as ity o f Supply Misc 00:00: directed; [place] ICD-10 Medical Z86.73, Branch I69.90, G81.94 Miscellaneo 0 Yes [id number] [facility] 08-12 : Use as ity o f Supply Misc 00:00: directed; [place] ICD-10 Medical Z86.73, Branch I69.90, G81.94 Miscellaneo 0 Yes [id number] [facility] 08-12 : Use as ity o f Supply Misc 00:00: directed; [place] ICD-10 Medical Z86.73, Branch I69.90, G81.94 Miscellaneo 0 Yes [id number] [facility] 08[facility] : Use as ity o f Supply Misc 00:00: directed; [place] ICD-10 Medical Z86.73, Branch I69.90, G81.94 Miscellaneo 0 Yes [id number] [facility] 08-12 : Use as ity o f Supply Misc 00:00: directed; [place] ICD-10 Medical Z86.73, Branch I69.90, G81.94 Miscellaneo 2020-0 Yes [id number] [facility] 08-12 : Use as ity o f Supply Misc 00:00: directed; [place] ICD-10 Medical Z86.73, Branch I69.90, G81.94 Miscellaneo 0 Yes [id number] [facility] 08-12 : Use as ity o f Supply Misc 00:00: directed; [place] ICD-10 Medical Z86.73, Branch I69.90, G81.94 Miscellaneo 0 Yes [id number] [facility] 08-12 : Use as ity o f Supply Misc 00:00: directed; [place] ICD-10 Medical Z86.73, Branch I69.90, G81.94 Miscellaneo 0 Yes [id number] [facility] 08-12 : Use as ity o f Supply Misc 00:00: directed; [place] ICD-10 Medical Z86.73, Branch I69.90, G81.94 Miscellaneo 0 Yes [id number] [facility] 08-12 : Use as ity o f Supply Misc 00:00: directed; [place] ICD-10 Medical Z86.73, Branch I69.90, G81.94 Miscellaneo 0 Yes [id number] [facility] 08-12 : Use as ity o f Supply Misc 00:00: directed; [place] ICD-10 Medical Z86.73, Branch I69.90, G81.94 Miscellaneo 0 Yes [id number] [facility] 08-12 : Use as ity o f Supply Misc 00:00: directed; [place] ICD-10 Medical Z86.73, Branch I69.90, G81.94 Miscellaneo 0 Yes [id number] [facility] 08-12 : Use as ity o f Supply Misc 00:00: directed; [place] ICD-10 Medical Z86.73, Branch I69.90, G81.94 Miscellaneo 2020-0 Yes [id number] [facility] 08-12 : Use as ity o f Supply Misc 00:00: directed; [place] ICD-10 Medical Z86.73, Branch I69.90, G81.94 Miscellaneo 0 Yes [id number] [facility] 08-12 : Use as ity o f Supply Misc 00:00: directed; [place] ICD-10 Medical Z86.73, Branch I69.90, G81.94 Miscellaneo 0 Yes [id number] [facility] 08-12 : Use as ity o f Supply Misc 00:00: directed; [place] ICD-10 Medical Z86.73, Branch I69.90, G81.94 Miscellaneo 0 Yes [id number] [facility] 08-12 : Use as ity o f Supply Misc 00:00: directed; [place] ICD-10 Medical Z86.73, Branch I69.90, G81.94 Miscellaneo 0 Yes [id number] [facility] 08-12 : Use as ity o f Supply Misc 00:00: directed; [place] ICD-10 Medical Z86.73, Branch I69.90, G81.94 Miscellaneo 0 Yes [id number] [facility] 08-12 : Use as ity o f Supply Misc 00:00: directed; [place] ICD-10 Medical Z86.73, Branch I69.90, G81.94 Miscellaneo 0 Yes [id number] [facility] 08-12 : Use as ity o f Supply Misc 00:00: directed; [place] ICD-10 Medical Z86.73, Branch I69.90, G81.94 Miscellaneo 0 Yes [id number] [facility] 08-12 : Use as ity o f Supply Misc 00:00: directed; [place] ICD-10 Medical Z86.73, Branch I69.90, G81.94 Miscellaneo 2020-0 Yes [id number] [facility] 08-12 : Use as ity o f Supply Misc 00:00: directed; [place] ICD-10 Medical Z86.73, Branch I69.90, G81.94 Miscellaneo 2020-0 Yes [id number] [facility] 08-12 : Use as ity o f Supply Misc 00:00: directed; [place] ICD-10 Medical Z86.73, Branch I69.90, G81.94 Miscellaneo 0 Yes [id number] [facility] 08-12 : Use as ity o f Supply Misc 00:00: directed; [place] ICD-10 Medical Z86.73, Branch I69.90, G81.94 Miscellaneo 0 Yes [id number] [facility] 08-12 : Use as ity o f Supply Misc 00:00: directed; [place] ICD-10 Medical Z86.73, Branch I69.90, G81.94 Miscellaneo 0 Yes [id number] [facility] 08-12 : Use as ity o f Supply Misc 00:00: directed; [place] ICD-10 Medical Z86.73, Branch I69.90, G81.94 Miscellaneo 2020-0 Yes [id number] [facility] 08-12 : Use as ity o f Supply Misc 00:00: directed; [place] [employer] Medical Z86.73, Branch I69.90, G81.94 Miscellaneo 0 Yes [id number] [facility] 08-12 : Use as ity o f Supply Misc 00:00: directed; [place] [employer] Medical Z86.73, Branch I69.90, G81.94 Miscellaneo 2020-0 Yes [id number] [facility] 08-12 : Use as ity o f Supply Misc 00:00: directed; [place] [employer] Medical Z86.73, Branch I69.90, G81.94 Miscellaneo 2020-0 Yes [id number] [facility] 08-12 : Use as ity o f Supply Misc 00:00: directed; [place] [employer] Medical Z86.73, Branch I69.90, G81.94 Miscellaneo 2020-0 Yes [id number] [facility] 08-12 : Use as ity o f Supply Misc 00:00: directed; [place] [employer] Medical Z86.73, Branch I69.90, G81.94 Miscellaneo 0 Yes [id number] [facility] 08-12 : Use as ity o f Supply Misc 00:00: directed; [place] [employer] Medical Z86.73, Branch I69.90, G81.94 Miscellaneo 0 Yes [id number] [facility] [facility] : Use as ity o f Supply Misc 00:00: directed; [place] ICD-10 Medical Z86.73, Branch I69.90, G81.94 Miscellaneo 2020-0 Yes [id number] [facility] 08-12 : Use as ity o f Supply Misc 00:00: directed; [place] ICD-10 Medical Z86.73, Branch I69.90, G81.94 Miscellaneo 2020-0 Yes [id number] [facility] 08-12 : Use as ity o f Supply Misc 00:00: directed; [place] ICD-10 Medical Z86.73, Branch I69.90, G81.94 Miscellaneo 2020-0 Yes [id number] [facility] 08-12 : Use as ity o f Supply Misc 00:00: directed; [place] ICD-10 Medical Z86.73, Branch I69.90, G81.94 Miscellaneo 2020-0 Yes [id number] [facility] 08-12 : Use as ity o f Supply Misc 00:00: directed; [place] ICD-10 Medical Z86.73, Branch I69.90, G81.94 Miscellaneo 2020-0 Yes [id number] [facility] Use [facility] f Supply Misc 00:00: directed; [place] ICD-10 Medical Z86.73, Branch I69.90, G81.94 Miscellaneo 2020-0 Yes [id number] [facility] 08-12 : Use as ity o f Supply Misc 00:00: directed; [place] ICD-10 Medical Z86.73, Branch I69.90, G81.94 Miscellaneo 0 Yes [id number] [facility] 08-12 : Use as ity o f Supply Misc 00:00: directed; [place] ICD-10 Medical Z86.73, Branch I69.90, G81.94 Miscellaneo 0 Yes [id number] [facility] 08-12 : Use as ity o f Supply Misc 00:00: directed; [place] ICD-10 Medical Z86.73, Branch I69.90, G81.94 Miscellaneo 0 Yes [id number] [facility] 08-12 : Use as ity o f Supply Misc 00:00: directed; [place] ICD-10 Medical Z86.73, Branch I69.90, G81.94 Miscellaneo 2020-0 Yes [id number] [facility] 08-12 : Use as ity o f Supply Misc 00:00: directed; [place] ICD-10 Medical Z86.73, Branch I69.90, G81.94 Miscellaneo 2020-0 Yes [id number] [facility] 08-12 : Use as ity o f Supply Misc 00:00: directed; [place] ICD-10 Medical Z86.73, Branch I69.90, G81.94 Miscellaneo 2020-0 Yes [id number] [facility] 08-12 : Use as ity o f Supply Misc 00:00: directed; [place] ICD-10 Medical Z86.73, Branch I69.90, G81.94 Miscellaneo 2020-0 Yes [id number] [facility] 08-12 : Use as ity o f Supply Misc 00:00: directed; [place] ICD-10 Medical Z86.73, Branch I69.90, G81.94 Miscellaneo 2020-0 Yes [id number] [facility] 08-12 : Use as ity o f Supply Misc 00:00: directed; [place] ICD-10 Medical Z86.73, Branch I69.90, G81.94 Miscellaneo 0 Yes [id number] [facility] 08-12 : Use as ity o f Supply Misc 00:00: directed; [place] ICD-10 Medical Z86.73, Branch I69.90, G81.94 Miscellaneo 0 Yes [id number] [facility] 08-12 : Use as ity o f Supply Misc 00:00: directed; [place] ICD-10 Medical Z86.73, Branch I69.90, G81.94 Miscellaneo 0 Yes [id number] [facility] 08-12 : Use as ity o f Supply Misc 00:00: directed; [place] ICD-10 Medical Z86.73, Branch I69.90, G81.94 Miscellaneo 0 Yes [id number] [facility] 08-12 : Use as ity o f Supply Misc 00:00: directed; [place] ICD-10 Medical Z86.73, Branch I69.90, G81.94 Miscellaneo 2020-0 Yes [id number] [facility] 08-12 : Use as ity o f Supply Misc 00:00: directed; [place] ICD-10 Medical Z86.73, Branch I69.90, G81.94 Miscellaneo 2020-0 Yes [id number] [facility] 08-12 : Use as ity o f Supply Misc 00:00: directed; [place] ICD-10 Medical Z86.73, Branch I69.90, G81.94 Miscellaneo 0 Yes [id number] [facility] 08-12 : Use as ity o f Supply Misc 00:00: directed; [place] ICD-10 Medical Z86.73, Branch I69.90, G81.94 Miscellaneo 0 Yes [id number] [facility] 08-12 : Use as ity o f Supply Misc 00:00: directed; [place] ICD-10 Medical Z86.73, Branch I69.90, G81.94 Miscellaneo Yes [id number] [facility] 08-12 : Use as ity o f Supply Misc 00:00: directed; [place] ICD-10 Medical Z86.73, Branch I69.90, G81.94 Miscellaneo 0 Yes [id number] [facility] 08-12 : Use as ity o f Supply Misc 00:00: directed; [place] ICD-10 Medical Z86.73, Branch I69.90, G81.94 VENTOLIN 2020-1 Yes INHALE 2 Unive rs HFA 90 2-01 PUFFS BY ity of mcg/actuati 00:00: MOUTH [place] on inhaler 00 EVERY 6 Medica l HOURS Branch NEEDED FOR SHORTNESS OF BREATH VENTOLIN 2020- Yes INHALE 2 Unive rs HFA 90 2-01 PUFFS BY ity of mcg/actuati 00:00: MOUTH [place] on inhaler 00 EVERY 6 Medica l HOURS Branch NEEDED FOR SHORTNESS OF BREATH VENTOLIN 2020-1 Yes INHALE 2 Unive rs HFA 90 2-01 PUFFS BY ity of mcg/actuati 00:00: MOUTH [place] on inhaler 00 EVERY 6 Medica l HOURS Branch NEEDED FOR SHORTNESS OF BREATH VENTOLIN 2020- Yes INHALE 2 Unive rs HFA 90 2-01 PUFFS BY ity of mcg/actuati 00:00: MOUTH [place] on inhaler 00 EVERY 6 Medica l HOURS Branch NEEDED FOR SHORTNESS OF BREATH VENTOLIN 2020-2021- No INHALE 2 Univ ers HFA 90 2-01 07-20 PUFFS BY ity of mcg/actuati 00:00: 00:[place] 00 :00 EVERY 6 Medica l HOURS Branch NEEDED FOR SHORTNESS OF BREATH ipratropium 2019- Yes Univer s -albuteroL 1-16 [...] Medical base)/3 mL Branch nebulizer solution ipratropium 2019-1 Yes Univer s -albuteroL 1-16 ity of [...] base)/3 mL Branch nebulizer solution ipratropium 2019-02- No Unive rs -albuteroL -16 06-03 ity of 0.5 mg-3 00:00: 00:00 [place] mg(2.5 mg 00 :00 Medical base)/3 mL Branch nebulizer solution ipratropium 2019-02- No Unive rs -albuteroL -16 06-03 ity of 0.5 mg-3 00:00: 00:00 [place] mg(2.5 mg 00 :00 Medical base)/3 mL Branch nebulizer solution Immunizations Ordered Filled Immunization Date Status Comments [facility] e Immunization Name Name SARS-COV-2 COVID-19 2020-11-01 Completed Unive rsity of PFIZER VACCINE 00:00:00 [facility] SARS-COV-2 COVID-19 2020-11-01 Completed Unive rsity of PFIZER VACCINE 00:00:00 [place] [facility] SARS-COV-2 COVID-19 2020-11-01 Completed Unive rsity of PFIZER VACCINE 00:00:00 [facility] Branch SARS-COV-2 COVID-19 2020-11-01 Completed Unive rsity of PFIZER VACCINE 00:00:00 [facility] SARS-COV-2 COVID-19 2020-11-01 Completed Unive rsity of PFIZER VACCINE 00:00:00 [facility] SARS-COV-2 COVID-19 2020-11-01 Completed Unive rsity of PFIZER VACCINE 00:00:00 [facility] SARS-COV-2 COVID-19 2020-11-01 Completed Unive rsity of PFIZER VACCINE 00:00:00 [facility] SARS-COV-2 COVID-19 2020-11-01 Completed Unive rsity of PFIZER VACCINE 00:00:00 [facility] SARS-COV-2 COVID-19 2020-11-01 Completed Unive rsity of PFIZER VACCINE 00:00:00 [facility] SARS-COV-2 COVID-19 2020-11-01 Completed Unive rsity of PFIZER VACCINE 00:00:00 [facility] SARS-COV-2 COVID-19 2020-11-01 Completed Unive rsity of PFIZER VACCINE 00:00:00 [facility] SARS-COV-2 COVID-19 2020-11-01 Completed Unive rsity of PFIZER VACCINE 00:00:00 [facility] SARS-COV-2 COVID-19 2020-11-01 Completed Unive rsity of PFIZER VACCINE 00:00:00 [facility] SARS-COV-2 COVID-19 2020-11-01 Completed Unive rsity of PFIZER VACCINE 00:00:00 [facility] SARS-COV-2 COVID-19 2020-11-01 Completed Unive rsity of PFIZER VACCINE 00:00:00 [facility] SARS-COV-2 COVID-19 2020-11-01 Completed Unive rsity of PFIZER VACCINE 00:00:00 [facility] SARS-COV-2 COVID-19 2020-11-01 Completed Unive rsity of PFIZER VACCINE 00:00:00 [facility] SARS-COV-2 COVID-19 2020-11-01 Completed Unive rsity of PFIZER VACCINE 00:00:00 [facility] SARS-COV-2 COVID-19 2020-11-01 Completed Unive rsity of PFIZER VACCINE 00:00:00 [facility] SARS-COV-2 COVID-19 2020-11-01 Completed Unive rsity of PFIZER VACCINE 00:00:00 [facility] SARS-COV-2 COVID-19 2020-11-01 Completed Unive rsity of PFIZER VACCINE 00:00:00 [facility] SARS-COV-2 COVID-19 2020-11-01 Completed Unive rsity of PFIZER VACCINE 00:00:00 [facility] SARS-COV-2 COVID-19 2020-11-01 Completed Unive rsity of PFIZER VACCINE 00:00:00 [facility] SARS-COV-2 COVID-19 2020-11-01 Completed Unive rsity of PFIZER VACCINE 00:00:00 [facility] SARS-COV-2 COVID-19 2020-11-01 Completed Unive rsity of PFIZER VACCINE 00:00:00 [facility] SARS-COV-2 COVID-19 2020-11-01 Completed Unive rsity of PFIZER VACCINE 00:00:00 [facility] SARS-COV-2 COVID-19 2020-11-01 Completed Unive rsity of PFIZER VACCINE 00:00:00 [facility] SARS-COV-2 COVID-19 2020-11-01 Completed Unive rsity of PFIZER VACCINE 00:00:00 [facility] SARS-COV-2 COVID-19 2020-11-01 Completed Unive rsity of PFIZER VACCINE 00:00:00 [facility] SARS-COV-2 COVID-19 2020-11-01 Completed Unive rsity of PFIZER VACCINE 00:00:00 [facility] SARS-COV-2 COVID-19 2020-11-01 Completed Unive rsity of PFIZER VACCINE 00:00:00 [facility] SARS-COV-2 COVID-19 2020-11-01 Completed Unive rsity of PFIZER VACCINE 00:00:00 [facility] SARS-COV-2 COVID-19 2020-11-01 Completed Unive rsity of PFIZER VACCINE 00:00:00 [facility] SARS-COV-2 COVID-19 2020-11-01 Completed Unive rsity of PFIZER VACCINE 00:00:00 [facility] SARS-COV-2 COVID-19 2020-11-01 Completed Unive rsity of PFIZER VACCINE 00:00:00 [facility] SARS-COV-2 COVID-19 2020-11-01 Completed Unive rsity of PFIZER VACCINE 00:00:00 [facility] SARS-COV-2 COVID-19 2020-11-01 Completed Unive rsity of PFIZER VACCINE 00:00:00 [facility] SARS-COV-2 COVID-19 2020-11-01 Completed Unive rsity of PFIZER VACCINE 00:00:00 [facility] SARS-COV-2 COVID-19 2020-11-01 Completed Unive rsity of PFIZER VACCINE 00:00:00 [facility] SARS-COV-2 COVID-19 2020-11-01 Completed Unive rsity of PFIZER VACCINE 00:00:00 [facility] SARS-COV-2 COVID-19 2020-11-01 Completed Unive rsity of PFIZER VACCINE 00:00:00 [facility] SARS-COV-2 COVID-19 2020-11-01 Completed Unive rsity of PFIZER VACCINE 00:00:00 [facility] SARS-COV-2 COVID-19 2020-11-01 Completed Unive rsity of PFIZER VACCINE 00:00:00 [facility] SARS-COV-2 COVID-19 2020-11-01 Completed Unive rsity of PFIZER VACCINE 00:00:00 [facility] SARS-COV-2 COVID-19 2020-11-01 Completed Unive rsity of PFIZER VACCINE 00:00:00 [facility] SARS-COV-2 COVID-19 2020-11-01 Completed Unive rsity of PFIZER VACCINE 00:00:00 [facility] SARS-COV-2 COVID-19 2020-11-01 Completed Unive rsity of PFIZER VACCINE 00:00:00 [facility] SARS-COV-2 COVID-19 2020-11-01 Completed Unive rsity of PFIZER VACCINE 00:00:00 [facility] SARS-COV-2 COVID-19 2020-11-01 Completed Unive rsity of PFIZER VACCINE 00:00:00 [place] [facility] SARS-COV-2 COVID-19 2020-11-01 Completed Unive rsity of PFIZER VACCINE 00:00:00 [facility] SARS-COV-2 COVID-19 2020-11-01 Completed Unive rsity of PFIZER VACCINE 00:00:00 [facility] SARS-COV-2 COVID-19 2020-11-01 Completed Unive rsity of PFIZER VACCINE 00:00:00 [facility] SARS-COV-2 COVID-19 2020-11-01 Completed Unive rsity of PFIZER VACCINE 00:00:00 [facility] SARS-COV-2 COVID-19 2020-11-01 Completed Unive rsity of PFIZER VACCINE 00:00:00 [facility] SARS-COV-2 COVID-19 2020-11-01 Completed Unive rsity of PFIZER VACCINE 00:00:00 [facility] SARS-COV-2 COVID-19 2020-11-01 Completed Unive rsity of PFIZER VACCINE 00:00:00 [facility] SARS-COV-2 COVID-19 2020-11-01 Completed Unive rsity of PFIZER VACCINE 00:00:00 [facility] SARS-COV-2 COVID-19 2020-11-01 Completed Unive rsity of PFIZER VACCINE 00:00:00 [facility] SARS-COV-2 COVID-19 2020-11-01 Completed Unive rsity of PFIZER VACCINE 00:00:00 [facility] SARS-COV-2 COVID-19 2020-11-01 Completed Unive rsity of PFIZER VACCINE 00:00:00 [facility] SARS-COV-2 COVID-19 2020-11-01 Completed Unive rsity of PFIZER VACCINE 00:00:00 [facility] SARS-COV-2 COVID-19 2020-11-01 Completed Unive rsity of PFIZER VACCINE 00:00:00 [facility] SARS-COV-2 COVID-19 2020-11-01 Completed Unive rsity of PFIZER VACCINE 00:00:00 [facility] SARS-COV-2 COVID-19 2020-11-01 Completed Unive rsity of PFIZER VACCINE 00:00:00 [facility] SARS-COV-2 COVID-19 2020-11-01 Completed Unive rsity of PFIZER VACCINE 00:00:00 [facility] SARS-COV-2 COVID-19 2020-11-01 Completed Unive rsity of PFIZER VACCINE 00:00:00 [facility] SARS-COV-2 COVID-19 2020-11-01 Completed Unive rsity of PFIZER VACCINE 00:00:00 [facility] SARS-COV-2 COVID-19 2020-11-01 Completed Unive rsity of PFIZER VACCINE 00:00:00 [facility] SARS-COV-2 COVID-19 2020-11-01 Completed Unive rsity of PFIZER VACCINE 00:00:00 [facility] SARS-COV-2 COVID-19 2020-11-01 Completed Unive rsity of PFIZER VACCINE 00:00:00 [facility] SARS-COV-2 COVID-19 2020-11-01 Completed Unive rsity of PFIZER VACCINE 00:00:00 [facility] SARS-COV-2 COVID-19 2020-11-01 Completed Unive rsity of PFIZER VACCINE 00:00:00 [facility] SARS-COV-2 COVID-19 2020-11-01 Completed Unive rsity of PFIZER VACCINE 00:00:00 [facility] SARS-COV-2 COVID-19 2020-11-01 Completed Unive rsity of PFIZER VACCINE 00:00:00 [facility] SARS-COV-2 COVID-19 2020-11-01 Completed Unive rsity of PFIZER VACCINE 00:00:00 [facility] SARS-COV-2 COVID-19 2020-11-01 Completed Unive rsity of PFIZER VACCINE 00:00:00 [facility] SARS-COV-2 COVID-19 2020-11-01 Completed Unive rsity of PFIZER VACCINE 00:00:00 [facility] SARS-COV-2 COVID-19 2020-11-01 Completed Unive rsity of PFIZER VACCINE 00:00:00 [facility] SARS-COV-2 COVID-19 2020-11-01 Completed Unive rsity of PFIZER VACCINE 00:00:00 [facility] SARS-COV-2 COVID-19 2020-11-01 Completed Unive rsity of PFIZER VACCINE 00:00:00 [facility] SARS-COV-2 COVID-19 2020-11-01 Completed Unive rsity of PFIZER VACCINE 00:00:00 [facility] SARS-COV-2 COVID-19 2020-11-01 Completed Unive rsity of PFIZER VACCINE 00:00:00 [facility] SARS-COV-2 COVID-19 2020-11-01 Completed Unive rsity of PFIZER VACCINE 00:00:00 [facility] SARS-COV-2 COVID-19 2020-11-01 Completed Unive rsity of PFIZER VACCINE 00:00:00 [facility] SARS-COV-2 COVID-19 2020-11-01 Completed Unive rsity of PFIZER VACCINE 00:00:00 [facility] SARS-COV-2 COVID-19 2020-11-01 Completed Unive rsity of PFIZER VACCINE 00:00:00 [facility] SARS-COV-2 COVID-19 2020-11-01 Completed Unive rsity of PFIZER VACCINE 00:00:00 [facility] SARS-COV-2 COVID-19 2020-11-01 Completed Unive rsity of PFIZER VACCINE 00:00:00 [facility] SARS-COV-2 COVID-19 2020-11-01 Completed Unive rsity of PFIZER VACCINE 00:00:00 [facility] SARS-COV-2 COVID-19 2020-11-01 Completed Unive rsity of PFIZER VACCINE 00:00:00 [facility] SARS-COV-2 COVID-19 2020-11-01 Completed Unive rsity of PFIZER VACCINE 00:00:00 [facility] SARS-COV-2 COVID-19 2020-11-01 Completed Unive rsity of PFIZER VACCINE 00:00:00 [facility] SARS-COV-2 COVID-19 2020-11-01 Completed Unive rsity of PFIZER VACCINE 00:00:00 [facility] Influenza High Dose 2020-10-09 Completed Unive rsity of 00:00:00 [facility] Influenza High Dose 2020-10-09 Completed Unive rsity of 00:00:00 [facility] Influenza High Dose 2020-10-09 Completed Unive rsity of 00:00:00 [facility] Influenza High Dose 2020-10-09 Completed Unive rsity [...] Dose 2020-10-09 Completed Unive rsity of 00:00:00 [facility] Influenza High Dose 2020-10-09 Completed Unive rsity of 00:00:00 [facility] SARS-COV-2 COVID-19 2020-10-02 Completed Unive rsity of PFIZER VACCINE 00:00:00 [facility] SARS-COV-2 COVID-19 2020-10-02 Completed Unive rsity of PFIZER VACCINE 00:00:00 [facility] SARS-COV-2 COVID-19 2020-10-02 Completed Unive rsity of PFIZER VACCINE 00:00:00 [facility] SARS-COV-2 COVID-19 2020-10-02 Completed Unive rsity of PFIZER VACCINE 00:00:00 [facility] SARS-COV-2 COVID-19 2020-10-02 Completed Unive rsity of PFIZER VACCINE 00:00:00 [facility] SARS-COV-2 COVID-19 2020-10-02 Completed Unive rsity of PFIZER VACCINE 00:00:00 [facility] SARS-COV-2 COVID-19 2020-10-02 Completed Unive rsity of PFIZER VACCINE 00:00:00 [facility] SARS-COV-2 COVID-19 2020-10-02 Completed Unive rsity of PFIZER VACCINE 00:00:00 [facility] SARS-COV-2 COVID-19 2020-10-02 Completed Unive rsity of PFIZER VACCINE 00:00:00 [facility] SARS-COV-2 COVID-19 2020-10-02 Completed Unive rsity of PFIZER VACCINE 00:00:00 [facility] SARS-COV-2 COVID-19 2020-10-02 Completed Unive rsity of PFIZER VACCINE 00:00:00 [facility] SARS-COV-2 COVID-19 2020-10-02 Completed Unive rsity of PFIZER VACCINE 00:00:00 [facility] SARS-COV-2 COVID-19 2020-10-02 Completed Unive rsity of PFIZER VACCINE 00:00:00 [facility] SARS-COV-2 COVID-19 2020-10-02 Completed Unive rsity of PFIZER VACCINE 00:00:00 [facility] SARS-COV-2 COVID-19 2020-10-02 Completed Unive rsity of PFIZER VACCINE 00:00:00 [facility] SARS-COV-2 COVID-19 2020-10-02 Completed Unive rsity of PFIZER VACCINE 00:00:00 [facility] SARS-COV-2 COVID-19 2020-10-02 Completed Unive rsity of PFIZER VACCINE 00:00:00 [facility] SARS-COV-2 COVID-19 2020-10-02 Completed Unive rsity of PFIZER VACCINE 00:00:00 [facility] SARS-COV-2 COVID-19 2020-10-02 Completed Unive rsity of PFIZER VACCINE 00:00:00 [facility] SARS-COV-2 COVID-19 2020-10-02 Completed Unive rsity of PFIZER VACCINE 00:00:00 [facility] SARS-COV-2 COVID-19 2020-10-02 Completed Unive rsity of PFIZER VACCINE 00:00:00 [facility] SARS-COV-2 COVID-19 2020-10-02 Completed Unive rsity of PFIZER VACCINE 00:00:00 [facility] SARS-COV-2 COVID-19 2020-10-02 Completed Unive rsity of PFIZER VACCINE 00:00:00 [facility] SARS-COV-2 COVID-19 2020-10-02 Completed Unive rsity of PFIZER VACCINE 00:00:00 [facility] SARS-COV-2 COVID-19 2020-10-02 Completed Unive rsity of PFIZER VACCINE 00:00:00 [facility] SARS-COV-2 COVID-19 2020-10-02 Completed Unive rsity of PFIZER VACCINE 00:00:00 [facility] SARS-COV-2 COVID-19 2020-10-02 Completed Unive rsity of PFIZER VACCINE 00:00:00 [facility] SARS-COV-2 COVID-19 2020-10-02 Completed Unive rsity of PFIZER VACCINE 00:00:00 [facility] SARS-COV-2 COVID-19 2020-10-02 Completed Unive rsity of PFIZER VACCINE 00:00:00 [facility] SARS-COV-2 COVID-19 2020-10-02 Completed Unive rsity of PFIZER VACCINE 00:00:00 [facility] SARS-COV-2 COVID-19 2020-10-02 Completed Unive rsity of PFIZER VACCINE 00:00:00 [facility] SARS-COV-2 COVID-19 2020-10-02 Completed Unive rsity of PFIZER VACCINE 00:00:00 [facility] SARS-COV-2 COVID-19 2020-10-02 Completed Unive rsity of PFIZER VACCINE 00:00:00 [facility] SARS-COV-2 COVID-19 2020-10-02 Completed Unive rsity of PFIZER VACCINE 00:00:00 [facility] SARS-COV-2 COVID-19 2020-10-02 Completed Unive rsity of PFIZER VACCINE 00:00:00 [facility] SARS-COV-2 COVID-19 2020-10-02 Completed Unive rsity of PFIZER VACCINE 00:00:00 [facility] SARS-COV-2 COVID-19 2020-10-02 Completed Unive rsity of PFIZER VACCINE 00:00:00 [facility] SARS-COV-2 COVID-19 2020-10-02 Completed Unive rsity of PFIZER VACCINE 00:00:00 [facility] SARS-COV-2 COVID-19 2020-10-02 Completed Unive rsity of PFIZER VACCINE 00:00:00 [facility] SARS-COV-2 COVID-19 2020-10-02 Completed Unive rsity of PFIZER VACCINE 00:00:00 [facility] SARS-COV-2 COVID-19 2020-10-02 Completed Unive rsity of PFIZER VACCINE 00:00:00 [facility] SARS-COV-2 COVID-19 2020-10-02 Completed Unive rsity of PFIZER VACCINE 00:00:00 [facility] SARS-COV-2 COVID-19 2020-10-02 Completed Unive rsity of PFIZER VACCINE 00:00:00 [facility] SARS-COV-2 COVID-19 2020-10-02 Completed Unive rsity of PFIZER VACCINE 00:00:00 [facility] SARS-COV-2 COVID-19 2020-10-02 Completed Unive rsity of PFIZER VACCINE 00:00:00 [facility] SARS-COV-2 COVID-19 2020-10-02 Completed Unive rsity of PFIZER VACCINE 00:00:00 [facility] SARS-COV-2 COVID-19 2020-10-02 Completed Unive rsity of PFIZER VACCINE 00:00:00 [facility] SARS-COV-2 COVID-19 2020-10-02 Completed Unive rsity of PFIZER VACCINE 00:00:00 [facility] SARS-COV-2 COVID-19 2020-10-02 Completed Unive rsity of PFIZER VACCINE 00:00:00 [facility] SARS-COV-2 COVID-19 2020-10-02 Completed Unive rsity of PFIZER VACCINE 00:00:00 [facility] SARS-COV-2 COVID-19 2020-10-02 Completed Unive rsity of PFIZER VACCINE 00:00:00 [facility] SARS-COV-2 COVID-19 2020-10-02 Completed Unive rsity of PFIZER VACCINE 00:00:00 [facility] SARS-COV-2 COVID-19 2020-10-02 Completed Unive rsity of PFIZER VACCINE 00:00:00 [facility] SARS-COV-2 COVID-19 2020-10-02 Completed Unive rsity of PFIZER VACCINE 00:00:00 [facility] SARS-COV-2 COVID-19 2020-10-02 Completed Unive rsity of PFIZER VACCINE 00:00:00 [facility] SARS-COV-2 COVID-19 2020-10-02 Completed Unive rsity of PFIZER VACCINE 00:00:00 [facility] SARS-COV-2 COVID-19 2020-10-02 Completed Unive rsity of PFIZER VACCINE 00:00:00 [facility] SARS-COV-2 COVID-19 2020-10-02 Completed Unive rsity of PFIZER VACCINE 00:00:00 [facility] SARS-COV-2 COVID-19 2020-10-02 Completed Unive rsity of PFIZER VACCINE 00:00:00 [facility] SARS-COV-2 COVID-19 2020-10-02 Completed Unive rsity of PFIZER VACCINE 00:00:00 [facility] SARS-COV-2 COVID-19 2020-10-02 Completed Unive rsity of PFIZER VACCINE 00:00:00 [facility] SARS-COV-2 COVID-19 2020-10-02 Completed Unive rsity of PFIZER VACCINE 00:00:00 [facility] SARS-COV-2 COVID-19 2020-10-02 Completed Unive rsity of PFIZER VACCINE 00:00:00 [facility] SARS-COV-2 COVID-19 2020-10-02 Completed Unive rsity of PFIZER VACCINE 00:00:00 [facility] SARS-COV-2 COVID-19 2020-10-02 Completed Unive rsity of PFIZER VACCINE 00:00:00 [facility] SARS-COV-2 COVID-19 2020-10-02 Completed Unive rsity of PFIZER VACCINE 00:00:00 [facility] SARS-COV-2 COVID-19 2020-10-02 Completed Unive rsity of PFIZER VACCINE 00:00:00 [facility] SARS-COV-2 COVID-19 2020-10-02 Completed Unive rsity of PFIZER VACCINE 00:00:00 [facility] SARS-COV-2 COVID-19 2020-10-02 Completed Unive rsity of PFIZER VACCINE 00:00:00 [facility] SARS-COV-2 COVID-19 2020-10-02 Completed Unive rsity of PFIZER VACCINE 00:00:00 [facility] SARS-COV-2 COVID-19 2020-10-02 Completed Unive rsity of PFIZER VACCINE 00:00:00 [facility] SARS-COV-2 COVID-19 2020-10-02 Completed Unive rsity of PFIZER VACCINE 00:00:00 [facility] SARS-COV-2 COVID-19 2020-10-02 Completed Unive rsity of PFIZER VACCINE 00:00:00 [facility] SARS-COV-2 COVID-19 2020-10-02 Completed Unive rsity of PFIZER VACCINE 00:00:00 [facility] SARS-COV-2 COVID-19 2020-10-02 Completed Unive rsity of PFIZER VACCINE 00:00:00 [facility] SARS-COV-2 COVID-19 2020-10-02 Completed Unive rsity of PFIZER VACCINE 00:00:00 [facility] SARS-COV-2 COVID-19 2020-10-02 Completed Unive rsity of PFIZER VACCINE 00:00:00 [facility] SARS-COV-2 COVID-19 2020-10-02 Completed Unive rsity of PFIZER VACCINE 00:00:00 [facility] SARS-COV-2 COVID-19 2020-10-02 Completed Unive rsity of PFIZER VACCINE 00:00:00 [facility] SARS-COV-2 COVID-19 2020-10-02 Completed Unive rsity of PFIZER VACCINE 00:00:00 [facility] SARS-COV-2 COVID-19 2020-10-02 Completed Unive rsity of PFIZER VACCINE 00:00:00 [facility] SARS-COV-2 COVID-19 2020-10-02 Completed Unive rsity of PFIZER VACCINE 00:00:00 [facility] SARS-COV-2 COVID-19 2020-10-02 Completed Unive rsity of PFIZER VACCINE 00:00:00 [facility] SARS-COV-2 COVID-19 2020-10-02 Completed Unive rsity of PFIZER VACCINE 00:00:00 [facility] SARS-COV-2 COVID-19 2020-10-02 Completed Unive rsity of PFIZER VACCINE 00:00:00 [facility] SARS-COV-2 COVID-19 2020-10-02 Completed Unive rsity of PFIZER VACCINE 00:00:00 [facility] SARS-COV-2 COVID-19 2020-10-02 Completed Unive rsity of PFIZER VACCINE 00:00:00 [facility] SARS-COV-2 COVID-19 2020-10-02 Completed Unive rsity of PFIZER VACCINE 00:00:00 [facility] SARS-COV-2 COVID-19 2020-10-02 Completed Unive rsity of PFIZER VACCINE 00:00:00 [facility] SARS-COV-2 COVID-19 2020-10-02 Completed Unive rsity of PFIZER VACCINE 00:00:00 [facility] SARS-COV-2 COVID-19 2020-10-02 Completed Unive rsity of PFIZER VACCINE 00:00:00 [facility] SARS-COV-2 COVID-19 2020-10-02 Completed Unive rsity of PFIZER VACCINE 00:00:00 [place] [facility] SARS-COV-2 COVID-19 2020-10-02 Completed Unive rsity of PFIZER VACCINE 00:00:00 [facility] Vital Signs Vital Name Observation Time Observation Value Comments Source Systolic blood 2022-07-14 21:05:00 143 mm[Hg] Univer sity of pressure [facility] Diastolic blood 2022-07-14 21:05:00 66 mm[Hg] Unive rsity of pressure [facility] Heart rate 2022-07-14 21:05:00 59 /min Universi ty of [facility] Body temperature 2022-07-14 21:05:00 36.89 Renu Univ ersity of [facility] Respiratory rate 2022-07-14 21:05:00 20 /min Univ ersity of [facility] Oxygen saturation in 2022-07-14 21:05:00 97 /min University of Arterial blood by [facility] Pulse oximetry Branch Body height 2022-07-12 01:00:00 182.9 cm [facility] of [place] [facility] [place] Body weight 2022-07-12 01:00:00 75.66 kg [facility]i ty [facility] BMI 2022-07-12 01:00:00 22.62 kg/m2 [facility] ty [facility] Systolic blood 2022-07-11 16:00:00 138 mm[Hg] Univer sity of pressure [facility] Diastolic blood 2022-07-11 16:00:00 68 mm[Hg] Unive rsity of pressure [facility] Heart rate 2022-07-11 16:00:00 65 /min Universi ty of [facility] Respiratory rate 2022-07-11 16:00:00 15 /min Univ ersity of [facility] Oxygen saturation in 2022-07-11 16:00:00 98 /min University of Arterial blood by [facility] Pulse oximetry Branch Body temperature 2022-07-11 15:35:00 36.67 Renu Univ ersity of [facility] Body weight 2022-07-11 15:35:00 77.111 kg [facility]i ty [facility] BMI 2022-07-11 15:35:00 23.06 kg/m2 [facility] Systolic blood 2022-07-10 13:12:00 122 mm[Hg] Univer sity of pressure [facility] Diastolic blood 2022-07-10 13:12:00 72 mm[Hg] [...] 99 /min University of Arterial blood by [facility] ralph Pulse oximetry Branch Systolic blood 2022-05-02 [...] /min University of [place] blood by [place] [facility] Body weight 2022-05-02 [...] 20:27:00 57 mm[Hg] Unive rsity of pressure [facility] Heart rate 2022-03-27 20:27:00 70 /min Universi ty of [facility] Body temperature 2022-03-27 20:27:00 36.28 Renu Univ ersity of [facility] Body height 2022-03-27 20:27:00 182.9 cm [facility]i ty of [facility] [place] Body weight 2022-03-27 20:27:00 77.111 kg [facility] BMI 2022-03-27 20:27:00 23.06 kg/m2 Universi ty of [facility] Oxygen saturation in 2022-03-27 20:27:00 99 /min University of Arterial blood by [facility] Pulse oximetry Branch Systolic blood 2022-03-12 18:04:00 105 mm[Hg] Univer [facility]ity of pressure [facility] [place] Diastolic blood 2022-03-12 18:04:00 55 mm[Hg] Unive rsity of pressure [facility] Heart rate 2022-03-12 18:04:00 57 /min Universi ty [facility] Body temperature 2022-03-12 18:04:00 36.78 Renu Univ ersity of [facility] Body height 2022-03-12 18:04:00 182.9 cm Universi ty [facility] Body weight 2022-03-12 18:04:00 76.204 kg [facility] BMI 2022-03-12 18:04:00 22.78 kg/m2 Universi ty of [facility] Oxygen saturation in 2022-03-12 18:04:00 98 /min University [facility] blood by [place] [facility] Systolic blood 2022-03-02 [...] 2022-03-02 15:26:00 24.11 kg/m2 Univers[facility] ty [facility] Oxygen saturation in 2022-03-02 15:26:00 100 /min University of Arterial blood by [facility] ralph Pulse oximetry Branch Systolic blood 2022-02-06 [...] 99 /min University of Arterial blood by [facility] ralph Pulse oximetry Branch Systolic blood 2021-11-03 20:53:00 110 mm[Hg] Univer sity of pressure [facility] Diastolic blood 2021-11-03 20:53:00 68 mm[Hg] Unive rsity of pressure [facility] Heart rate 2021-11-03 20:53:00 68 /min Universi ty [facility] Body temperature 2021-11-03 20:53:00 36.56 Renu Univ ersity of [facility] Body height 2021-11-03 20:53:00 182.9 cm [facility] Body weight 2021-11-03 20:53:00 70.308 kg Universi ty [facility] BMI 2021-11-03 20:53:00 21.02 kg/m2 [facility] Oxygen saturation in 2021-11-03 20:53:00 99 /min University of Arterial blood by [facility] Pulse oximetry Branch Systolic blood 2021-10-27 21:12:00 120 mm[Hg] Univer sity of pressure [facility] Diastolic blood 2021-10-27 21:12:00 70 mm[Hg] Unive rsity of pressure [facility] Heart rate 2021-10-27 21:12:00 66 /min Universi ty [facility] Body height 2021-10-27 20:29:00 182.9 cm [facility]i ty [facility] Body weight 2021-10-27 20:29:00 70.308 kg [facility] BMI 2021-10-27 20:29:00 21.02 kg/m2 [facility] Systolic blood 2021-10-27 14:20:00 108 [...] 100 /min University of Arterial blood by [facility] Pulse oximetry Branch Systolic blood 2021-10-18 16:05:00 [...] /min University of [facility] blood by [place] [facility]xim[facility] Systolic blood 2021-08-27 [...] 2021-08-27 18:10:00 70.308 kg [facility]i ty [facility] BMI 2021-08-27 18:10:00 21.02 kg/m2 Universi ty of [facility] Oxygen saturation in 2021-08-27 18:10:00 100 /min University of Arterial blood by [employer] ralph Pulse oximetry Branch Systolic blood 2021-08-14 17:54:00 117 mm[Hg] Univer sity of pressure [facility] Diastolic blood 2021-08-14 17:54:00 74 mm[Hg] Unive rsity of pressure [facility] Heart rate 2021-08-14 17:54:00 71 /min Universi ty of [facility] Body temperature 2021-08-14 17:54:00 36.39 [facility]enu [facility] 2021-08-14 17:54:[address] [facility] Body weight 2021-08-14 17:54:[address] [facility] BMI 2021-08-14 17:54:00 21.25 kg/m2 [facility] Oxygen saturation in 2021-08-14 17:54:00 99 /min [facility] Arterial blood by [facility] Pulse oximetry Branch Heart Rate 2022-07-24 17:04:49 [facility] Systolic (mm Hg) 2022-07-24 17:04:40 [place] [facility] [place] Diastolic (mm Hg) 2022-07-24 17:04:40 Mem [facility] Heart Rate 2022-07-24 17:04:40 [facility] [place] Temperature Oral (F) 2022-07-24 17:04:15 97.6 F [facility] Temperature Oral (F) 2022-07-24 09:00:00 97.9 F [facility] Heart Rate 2022-07-24 09:00:00 [facility] [place] Systolic (mm Hg) 2022-07-24 09:00:00 Antelmo [facility] [place] Diastolic (mm Hg) 2022-07-24 09:00:00 Mem [facility] Systolic (mm Hg) 2022-07-24 08:16:00 Antelmo [facility] [place] Diastolic (mm Hg) 2022-07-24 08:16:00 Mem [facility] [place] Temperature Oral (F) 2022-07-24 08:16:00 98.5 F [facility] Temperature Oral (F) 2022-07-23 04:32:24 98.1 F [facility] Respitory Rate 2022-07-22 21:19:00 [facility] [place] Respitory Rate 2022-07-22 16:24:00 [facility] Respitory Rate 2022-07-22 12:59:00 [facility] [place] Heart Rate 2022-07-20 10:20:11 [facility] Temperature Oral (F) 2022-07-20 10:20:04 98 F [facility] Systolic (mm Hg) 2022-07-20 10:19:11 Antelmo [facility] [place] Diastolic (mm Hg) 2022-07-20 10:19:11 Mem [facility] Heart Rate 2022-07-20 10:19:11 [facility] [place] Heart Rate 2022-07-20 04:25:10 [facility] Temperature Oral (F) 2022-07-20 04:25:00 98.3 F [facility] Systolic (mm Hg) 2022-07-20 04:22:19 Antelmo [facility] [place] Diastolic (mm Hg) 2022-07-20 04:22:19 Mem [facility] Systolic (mm Hg) 2022-07-20 00:57:06 Ant[facility]mo [facility] [place] Diastolic (mm Hg) 2022-07-20 00:57:06 [facility] Temperature Oral (F) 2022-07-19 09:00:00 98.4 F [facility] Respitory Rate 2022-07-19 09:00:00 [facility] [place] Respitory Rate 2022-07-19 05:00:00 [facility] [place] Respitory Rate 2022-07-19 01:00:00 [facility] [place] Height 2022-07-16 13:00:00 182.88 cm [facility] Weight 2022-07-16 13:00:00 [facility] BMI Calculated 2022-07-16 13:00:00 [facility] Height 2022-07-16 02:20:00 182.88 cm [facility] Weight 2022-07-16 02:20:00 [facility] BMI Calculated 2022-07-16 02:20:00 [facility] [place] Procedures Procedure Date / Time Performing Clinician Source Performed AMMONIA, PLASMA 2022-07-14 12:25[facility] 2022-07-14 12:24:00 Dipesh Harvey [facility] PHOSPHORUS 2022-07-14 10:00:00 Wes Dipesh [facility] MAGNESIUM 2022-07-14 10:00:00 Wes Dipesh [facility] C-REACTIVE PROTEIN 2022-07-14 10:00:00 Dipesh Harvey [facility] BASIC METABOLIC PANEL (NA, 2022-07-14 10:00:00 Dipesh Harvey [facility] K, CL, CO2, GLUCOSE, BUN, Medica l Branch CREATININE, CA) SYPHILIS IGG/IGM 2022-07-14 09:58:00 [facility] 2022-07-13 09:15:00 [place] Main [facility] VITAMIN B12, LEVEL 2022-07-13 09:15:00 Wes Dipesh [facility] FOLATE 2022-07-13 09:15:00 Wes Dipesh [facility] HEPATIC FUNCTION PANEL 2022-07-13 09:15:00 Wes Dipesh [facility] ([id number]) [facility],BU/BC,ALT,AST,ALK PHOS) BASIC METABOLIC PANEL (NA, 2022-07-13 09:15:00 [place] Main [facility] K, CL, CO2, GLUCOSE, BUN, Medica l Branch CREATININE, CA) SEDIMENTATION RATE 2022-07-13 09:15:00 Wes Dipesh [facility] CBC WITH DIFF 2022-07-13 09:15:00 [place] Main [facility] HOMOCYSTEINE 2022-07-13 09:15:00 Lilliam [facility] TROPONIN I 2022-07-12 23:04:00 Anastacio Michael [facility] ACTIVATED PARTIAL THRMPLAS 2022-07-12 23:04:00 Shira Vyas [facility] HB ECG ROUTINE & RHYTHM 2022-07-12 17:47:15 [place] Main [facility] STRIP [facility] TRANSTHORACIC ECHO (TTE) 2022-07-12 17:29:00 Shira Vyas [facility] CT HEAD WO CONTRAST 2022-07-12 16:36:[address] [facility] URINE DRUG (IMMUNOASSAY) - 2022-07-12 15:33:00 [place] Main [facility] COMPREHENSIVE DRUG SCREEN [facility] TROPONIN I 2022-07-12 15:31:00 [place] Main [facility] POCT GLUCOSE (AUTOMATED) 2022-07-12 13:45:00 Logan Fernandez [facility] 2022-07-12 09:02:00 Vyas, [facility] TROPONIN I 2022-07-12 09:02:00 Vyas, [facility] BASIC METABOLIC PANEL (NA, 2022-07-12 09:02:00 Vyas, [facility] K, CL, CO2, GLUCOSE, BUN, Medica l Branch CREATININE, CA) CBC WITH DIFF 2022-07-12 09:02:00 Vyas, [facility] ACTIVATED PARTIAL THRMPLAS 2022-07-12 09:02:00 Vyas, [facility] TROPONIN I 2022-07-12 02:38:00 Vyas, [facility] PROTHROMBIN TIME / INR 2022-07-12 02:38:00 Vyas, [facility] ACTIVATED PARTIAL THRMPLAS 2022-07-12 02:38:00 Vyas, [facility] TROPONIN I 2022-07-11 22:52:[address] [facility] THYROID STIMULATING HORMONE 2022-07-11 22:52:00 Lilliam, [facility] LIPASE 2022-07-11 19:34:[address] [facility] TROPONIN I 2022-07-11 19:34:[address] [facility] COMP. METABOLIC PANEL 2022-07-11 19:34:00 Dino Baker [facility] ([id number]) [facility] CBC WITH DIFF 2022-07-11 19:34:[address] [facility] GLYCOSYLATED HEMOGLOBIN 2022-07-11 19:34:[address] [facility] (A1C) [facility] EKG-12 LEAD 2022-07-11 18:42:[address] [facility] CONSENT/REFUSAL FOR 2022-07-11 18:31:35 Doctor Unassigned, [facility] DIAGNOSIS AND TREATMENT [facility] XR CHEST 2 VW 2022-07-11 16:53:39 Morrical[facility]REFUS[facility] FOR 2022-07-11 15:30:17 Doctor Unassigned, [facility] DIAGNOSIS AND TREATMENT [facility] [place] POCT URINALYSIS 2022-07-10 00:00[facility]00 [facility] ASSIGNMENT OF BENEFITS 2022-06-04 17:03:28 Doctor Unassigned, [facility] Name [facility] [place] POCT GLUCOSE (AUTOMATED) 2022-05-02 13:23:00 Michele Meraz [facility] POCT GLUCOSE (AUTOMATED) 2022-05-02 13:23:00 Michele Meraz [facility] MAGNESIUM 2022-05-02 09:46:00 Christiano Kathleen [facility] BASIC METABOLIC PANEL (NA, 2022-05-02 09:46:00 Otilia Alvarado [facility] K, CL, CO2, GLUCOSE, BUN, Medica l Branch CREATININE, CA) CBC WITH DIFF 2022-05-02 09:46:00 Christiano Kathleen [facility] MAGNESIUM 2022-05-02 09:46:00 Christiano [facility] BASIC METABOLIC PANEL (NA, 2022-05-02 09:46:00 Otilia Alvarado [facility] K, CL, CO2, GLUCOSE, BUN, Medica l Branch CREATININE, [place]) CBC WITH DIFF 2022-05-02 09:46:00 Kathleen Alvarado [facility] XR CHEST 1 VW 2022-05-01 22:10:00 Kathleen Alvarado [facility] ELECTROPHYSIOLOGY PROCEDURE 2022-05-01 17:50:27 Michele Meraz [facility] ELECTROPHYSIOLOGY PROCEDURE 2022-05-01 17:50:27 Michele Meraz [facility] ELECTROPHYSIOLOGY PROCEDURE 2022-05-01 17:50:27 Michele Meraz [facility] ELECTROPHYSIOLOGY PROCEDURE 2022-05-01 17:50:27 Michele Meraz [facility] INSURANCE CORRESPONDENCE 2022-03-04 06:01:00 Doctor Sabine, [facility] [place] HB ECG ROUTINE & RHYTHM 2022-03-02 15:30:55 Destiny Sandy [facility] EXTERNAL PROVIDER RECORDS 2022-01-14 06:01:00 Doctor Sabine [facility] [place] EXTERNAL PROVIDER - ADC 2021-12-29 06:01:00 Doctor Era Regalado [facility] CARDIOLOGY [facility] REFERRAL- REQUEST/RESPONSE 2021-11-17 05:01:00 Doctor Sabine [facility] Name [facility] CBC WITH DIFF 2021-11-03 21:42:00 Shira [place] o f [facility] Encounters Start End Encounter Admission Attending Care Care Encounter Source Date/Time Date/Time Type Type Clinicians Facility Department ID 2022-07-23 Outpatient [facility] [id number] [place] 00:58:24 [id number] [facility] 2022-03-16 Outpatient [facility] [id number] [place] 07:57:43 [id number] [facility] 2022-09-25 2022-09-25 Outpatient R SHIRA BRANCH [facility] [id number] [facility] 11:20:00 11:20:00 SHIRA BRANCH [facility] 2022-08-13 2022-08-13 Telephone Kt [facility] [id number] Univers 00:00:00 00:00:00 Michele ESPAÑA [id number] i ty [facility] [id number] [id number] N[place] nandodc NOAH [address] [place] [address] 2022-08-10 2022-08-10 Telephone Du [facility] [id number] Univers 00:00:00 00:00:00 Destiny ESPAÑA [id number] ity [facility] [id number] [id number] Nj dicdc NAL [address] [place] [address] 2022-08-05 2022-08-07 Outpatient U PRATIBHA DUNN MED [id number] 17:30:00 15:29:00 CRISTAL 2022-08-07 2022-08-07 Telephone [facility] [id number] Univers 00:00:00 00:00:00 [facility] [id number] ity of [place] [id number] Anthony as GUIDO?BLEA [id number] [address] OFFICE [facility] 2022-08-07 2022-08-07 Telephone [facility] [id number] Univers 00:00:00 00:00:00 Qiahai [place] [id number] ity [id number] [id number] [place] [id number] [facility] 2022-08-05 2022-08-05 Telephone [facility] [id number] Univers 00:00:00 00:00:00 Michele [place] [id number] i ty of [id number] [id number] [address] 2022-07-17 2022-07-24 Inpatient [facility] [id number] Memoria 16:33:00 18:55:[address] 2022-07-17 2022-07-24 Inpatient U [facility] [id number] 11:33:00 13:55:00 , ADY 2022-07-16 2022-07-16 [id number] Univers 08:40:00 08:40:00 MICHELE it of [facility] 2022-07-16 2022-07-16 Telephone [facility] [id number] Univers 00:00:00 00:00:00 [facility] [id number] ity of [place] [id number] Anthony as GUIDO?BLEA [id number] [address] OFFICE [facility] 2022-07-15 2022-07-15 Transition JAKOB [place] [id number] Univers 00:00:00 00:00:00 of Care Sarai LINARES [id number] i ty [id number] [id number] [facility] [address] Branch 2022-07-11 2022-07-14 Hospital Dino Baker [id number] Univers 13:38:00 17:03:00 Encounter Logan Fernandez NICHOLAS 350.1. 13.10 ity of [facility] 4.2.7.2.686 Anthony as [id number] [facility] [address] [place] 2022-07-14 2022-07-14 Telephone [facility] [id number] Univers 00:00:00 00:00:00 [facility] [id number] ity of [place] 4.2.7.2.686 Anthony as GUIDO?BLEA [id number] [address] MEDICAL OFFICE [facility] 2022-07-14 2022-07-14 Telephone [facility] [id number] Univers 00:00:00 00:00:00 Michele [place] [id number] i ty [id number] [id number] [place] [id number] [facility] 2022-07-13 2022-07-13 Telephone [facility] [id number] Univers 00:00:00 00:00:00 [facility] [id number] ity of [place] 4.2.7.2.686 Anthony as GUIDO?BLEA [id number] [address] OFFICE [facility] 2022-07-11 2022-07-11 Emergency X OLIVIA, [facility] ERT [id number] Univers 10:39:00 13:14:00 DINO dangelo [facility] 2022-07-11 2022-07-11 Emergency Morrical, TRAUMA [id number] Univers 10:39:00 13:14:00 Dino [facility] [id number] [place] [id number] [address] 2022-07-11 2022-07-11 Emergency X MORRICAL, [facility] ERT [id number] Univers 10:39:00 13:14:00 DINO rossiprudencio [facility] 2022-07-10 2022-07-10 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, [facility] [id number] Univers 09:30:00 09:45:00 [facility] [id number] ity of [place] 4.2.7.2.686 Anthony as GUIDO?BLEA [id number] [facility] [address] [place] MEDICAL OFFICE [facility] 2022-07-10 2022-07-10 Outpatient R SARINA SHIRA [facility] [id number] Univers 08:20:00 09:12:03 SHIRA BRANCH [facility] 2022-07-10 2022-07-10 Office [facility] [id number] Univers 08:20:00 09:12:03 Visit [facility] [id number] ity of [place] 4.2.7.2.686 Anthony as GUIDO?BLEA [id number] [facility] [address] [facility] OFFICE [facility] 2022-07-09 2022-07-09 [facility]ill [facility] 1.2.840.114 [id number] Univers 00:00:00 00:00:00 [facility] 350.1.13.10 ity of [place] 4.2.7.2.686 Anthony as GUIDO?BLEA [id number] [facility] [place] [address] [place] MEDICAL OFFICE [facility] 2022-07-04 2022-07-04 Telephone [facility] 1.2.320.234 [id number] [id number] Univers 00:00:00 00:00:00 [facility]hele [facility] 350.1.13.10 i ty [facility] 4.2.7.2.[place] [id number] Nj dical NAL 059 [facility] 2022-06-28 2022-06-28 Refill [facility] 1.2.840.114 [id number] Univers 00:00:00 00:00:00 Shira HEALTH 350.1.13.10 ity of [place] 4.2.7.2.686 Anthony as GUIDO?BLEA [id number] [facility] 044 [facility] 2022-06-25 2022-06-25 Outpatient R SARINA SHIRA [facility] [id number] Univers 14:20:00 15:24:09 [facility]22-[facility]-25 2022-06-25 Office [facility] 1.2.840.114 [id number] Univers 14:20:00 15:24:09 Visit [facility] 350.1.13.10 ity of [place] 4.2.7.2.686 Anthony as GUIDO?BLEA [id number] [facility] 044 [facility] 2022-06-19 2022-06-19 Telephone [facility] 1.2.188.154 [id number] [id number] Univers 00:00:00 00:00:00 Michele [facility] 350.1.13.10 it y of [place] 4.2.7.2.686 Anthony as GUIDO?BLEA [id number] [facility] 092 [facility] 2022-06-04 2022-06-04 Outpatient R KT [facility] [id number] Univers 12:00:00 23:59:00 MICHELE ity [facility] 2022-06-04 2022-06-04 Orders Doctor CARMEL 1.2.840.114 [id number] Univers 00:00:00 00:00:00 Only Unassigned, NICHOLAS 350.1.13.10 ity of [place] [facility] 4.2.7.2.686 Anthony as [id number] [address] 2022-05-28 2022-05-28 Telephone [facility] 1.2.702.043 [id number] Univers 00:00:00 00:00:00 Michele [place] 350.1.13.10 i ty of [place] 4.2.7.2.[place] [id number] Nj dical NAL 059 [facility] 2022-05-25 2022-05-25 Telephone Du, UN[facility]ERSIT 1.2.840.114 10 [id number] Univers 00:00:00 00:00:00 [facility] 350.1.13.10 ity of [place].2.[place] [id number] [facility] [address] [place] 2022-05-03 2022-05-03 Telephone CARMEL Gaona 1.2.603.606 [id number] Univers 00:00:00 00:00:00 Dylan PETERSON 350.1.13.10 it y of [facility] 4.2.7.2.686 Anthony as [phone] [address] 2022-05-03 2022-05-03 Telephone Du, [facility] 1.2.840.114 10 [id number] Univers 00:00:00 00:00:00 [facility] 350.1.13.10 ity of [place]2.7.2.[place] [id number] [place] [address] [place] 2022-05-03 2022-05-03 Telephone JOSE Meraz 1.2.218.176 [id number] Univers 00:00:00 00:00:00 Michele ESPAÑA 350.1.13.10 i ty [facility] 4.2.7.2.[place] [phone] Nj dicdc NAL [address] [place] [address] 2022-05-01 2022-05-02 Outpatient R CYNTHIA NEZAFAR [facility] [id number] Univers 09:33:00 17:27:00 ISABELLA ity of [facility] 2022-05-01 2022-05-02 Hospital Michele Meraz 1.2.840.114 [id number] Univers 09:33:00 17:27:00 Encounter Isabella Velázquez 350.1.1 3.10 ity of [facility] 4.2.7.2.686 Anthony as [id number] [facility] [address] [place] 2022-05-01 2022-05-01 Surgery ROSALIND Meraz 1.2.840.114 [id number] Univers 09:30:00 13:00:00 Michele NICHOLAS 350.1.13.10 it y of HOSPITAL 4.2.7.2.686 Anthony as [id number] [address] 2022-04-14 2022-04-14 Outpatient R [facility] [id number] Univers 14:00:00 14:00:00 ity of [facility] 2022-04-14 2022-04-14 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 1, Adc Lab [facility] 1.2.840.114 [id number] Univers 09:30:00 09:45:00 Visit Radha Burton ESPAÑ[place] 350.1.13.10 ity of [place] 4.2.7.2.686 [place] [facility] [id number] [address] 2022-04-14 2022-04-14 Outpatient [facility] [id number] [facility] 09:30:00 09:30:00 BURTON ity [facility] 2022-04-14 2022-04-14 Refill [facility] 1.2.840.114 [id number] Univers 00:00:00 00:00:00 Shira HEALTH 350.1.13.10 ity of [place] 4.2.7.2.686 Anthony as GUIDO?BLEA [id number] [address] OFFICE [facility] 2022-04-08 2022-04-08 Telephone [facility] 1.2.612.562 [id number] Univers 00:00:00 00:00:00 Shira HEALTH 350.1.13.10 ity of [place] 4.2.7.2.686 Anthony as GUIDO?BLEA [id number] [address] OFFICE [facility] 2022-04-01 2022-04-01 Telephone ROSALIND Meraz 1.2.014.528 [id number] Univers 00:00:00 00:00:00 Michele NICHOLAS 350.1.13.10 it y of [facility] 4.2.7.2.686 Anthony as [phone] [address] 2022-03-27 2022-03-27 Outpatient [facility] [id number] Univers 14:00:00 15:19:35 SHIRA ity of [facility] 2022-03-27 2022-03-27 Office [facility] 1.2.840.114 [id number] Univers 14:00:00 15:19:35 Visit [facility] 350.1.13.10 ity of [place] 4.2.7.2.686 Anthony as GUIDO?BLEA [id number] Nj dical [address] OFFICE [facility] 2022-03-26 2022-03-26 [facility] 1.2.840.114 [id number] Univers 00:00:00 00:00:00 [place] HEALTH 350.1.13.10 ity of [place] 4.2.7.2.686 Anthony as GUIDO?BLEA [id number] [address] OFFICE [facility] 2022-03-23 2022-03-23 Milo [facility] 1..497.442 0250 [id number] Univers 00:00:00 00:00:00 Michele [place] 350.1.13.10 i ty of [facility] 4.2.7.2.686 [place] [id number] Nj dical NAL 059 [facility] 2022-03-19 2022-03-19 [facility] [id number] Univers 09:20:00 09:20:00 MICHELE ity of [facility] 2022-03-17 2022-03-17 [facility] 1..932.583 [id number] [id number] Univers 00:00:00 00:00:00 [facility] 350.1.13.10 ity of [place] 4.2.7.2.686 Anthony as GUIDO?BLEA [id number] Nj dical [address] OFFICE [facility] 2022-03-17 2022-03-17 [facility] 1.2.840.114 [id number] Univers 00:00:00 00:00:00 Shira HEALTH 350.1.13.10 ity of [place] 4.2.7.2.686 Anthony as GUIDO?BLEA [id number] [address] OFFICE [facility] 2022-03-16 2022-03-16 Refill [facility] 1.2.840.114 [id number] Univers 00:00:00 00:00:00 Shira HEALTH 350.1.13.10 ity of [facility] 4.2.7.2.686 Anthony as GUIDO?BLEA [id number] [address] 2022-03-12 2022-03-12 Outpatient [facility] [id number] Univers 12:00:00 12:44:36 MICHELE ity [facility] 2022-03-12 2022-03-12 [facility] 1.2.840.114 [id number] Univers 12:00:00 12:44:36 Visit Michele [place] 350.1.13.10 i ty of [facility] 4.2.7.2.[place] [id number] [place] 683519 [facility] 2022-03-10 2022-03-10 [facility]phone [facility] 1.2.288.674 [id number] [id number] Univers 00:00:00 00:00:00 Anil HEALTH 350.1.13.10 it y of [place] 4.2.7.2.686 Anthony as GUIDO?BLEA [id number] [address] 2022-03-09 2022-03-09 Outpatient R [facility] [id number] Univers 16:00:00 16:00:00 ANIL ity [facility] 2022-03-09 2022-03-09 [facility]phone [facility] 1.2.831.182 [id number] [id number] Univers 00:00:00 00:00:00 Anil HEALTH 350.1.13.10 it y of [facility] 4.2.7.2.686 Anthony as GUIDO?BLEA [id number] [address] 2022-03-09 2022-03-09 Telephone [facility] 1.2.521.822 [id number] Univers 00:00:00 00:00:00 Destiny [place] 350.1.13.10 ity of [facility] 4.2.7.2.686 [place] [id number] Nj dical NAL 059 [facility] 2022-03-06 2022-03-06 Outpatient R DU [facility] [id number] Univers 15:47:00 23:59:00 DESTINY dangelo o f [facility] 2022-03-04 2022-03-04 Refill [facility] 1.2.840.114 [id number] Univers 00:00:00 00:00:00 Anil HEALTH 350.1.13.10 it y of [place] 4.2.7.2.686 Anthony as GUIDO?BLEA [id number] Nj dical [place] [address] [facility] OFFICE [facility] 2022-03-04 2022-03-04 Orders Doctor BURT 1.2.840.114 [id number] Univers 00:00:00 00:00:00 Only Unassigned, NICHOLAS 350.1.13.10 ity of [place] [facility] 4.2.7.2.686 Anthony as [phone] [facility] [address] [place] 2022-03-02 2022-03-02 Outpatient [facility] [id number] Univers 09:20:00 09:58:44 DESTINY dangelo o [facility] 2022-03-02 2022-03-02 [facility] 1.2.840.114 [id number] Univers 09:20:00 09:58:44 [facility] 350.1.13.10 ity of [place] 4.2.7.2.[place] [id number] Nj dicdc NAL 059 [facility] 2022-02-07 2022-02-07 Nurse Citlaly David 1.2.840.114 [id number] Univers 00:00:00 00:00:00 Triage NICHOLAS 350.1.13.10 it y of [facility] 4.2.7.2.686 Anthony as [id number] [facility] [address] [place] 2022-02-06 2022-02-06 Outpatient [facility] [id number] Univers 15:00:00 16:09:26 ANIL ity of [facility] 2022-02-06 2022-02-06 Office [facility] 1.2.840.114 [id number] Univers 15:00:00 16:09:26 Visit Anil HEALTH 350.1.13.10 it y of [place] 4.2.7.2.686 Anthony as GUIDO?BLEA [id number] [address] OFFICE [facility] 2022-02-05 2022-02-05 Telephone [facility] 1.2.214.695 [id number] Univers 00:00:00 00:00:00 Shira [facility] 350.1.13.10 ity of [facility] 4.2.7.2.686 [place] [id number] [address] 2022-01-28 2022-01-28 Telephone [facility] 1.2.151.411 [id number] [id number] Univers 00:00:00 00:00:00 Shira HEALTH 350.1.13.10 ity of [place] 4.2.7.2.686 Anthony as GUIDO?BLEA [id number] [address] OFFICE [facility] 2022-01-22 2022-01-22 Sergei DeeMEMORIAL MEDICAL [facility] 1.2.840.114 [id number] Univers 00:00:00 00:00:00 Wondiful A HEALTH 350.1.13.10 ity of [place] 4.2.7.2.686 Anthony as GUIDO?BLEA [id number] [address] OFFICE [facility] 2022-01-14 2022-01-14 Outpatient R DU [facility] [id number] Univers 10:00:00 10:00:00 DESTINY rossiy o f [facility] 2022-01-14 2022-01-14 Orders Doctor CARMEL 1.2.840.114 [id number] Univers 00:00:00 00:00:00 Only Unassigned, NICHOLAS 350.1.13.10 ity of [place] [facility] 4.2.7.2.686 Anthony as [id number] [address] 2022-01-11 2022-01-11 Sergei Dee [facility] 1.2.840.114 [id number] Univers 00:00:00 00:00:00 Wondiful A HEALTH 350.1.13.10 ity of [place] 4.2.7.2.686 Anthony as GUIDO?BLEA [id number] [address] MEDICAL OFFICE [facility] 2021-12-29 2021-12-29 Orders Doctor CARMEL 1.2.840.114 [id number] Univers 00:00:00 00:00:00 Only Unassigned, NICHOLAS 350.1.13.10 ity of [place] [facility] 4.2.7.2.686 Anthony as [id number] [address] 2021-12-15 2021-12-16 Outpt Diag nullFlavo [facility] [id number] [facility] 17:34:00 05:59:00 Services r Outpatient 00 l Cyn - Benigno n Renae 2021-11-17 2021-11-17 Orders Doctor CARMEL 1.2.840.114 [id number] Univers 00:00:00 00:00:00 Only Unassigned, NICHOLAS 350.1.13.10 ity of [place] [facility] 4.2.7.2.686 Anthony as [id number] [address] 2021-11-12 2021-11-12 Telephone [facility] 1.2.028.434 [id number] Univers 00:00:00 00:00:00 Shira HEALTH 350.1.13.10 ity of [place] 4.2.7.2.686 Anthony as GUIDO?BLEA [id number] [address] MEDICAL OFFICE [facility] 2021-11-11 2021-11-11 Telephone [facility] 1.2.003.846 [id number] Univers 00:00:00 00:00:00 Shira HEALTH 350.1.13.10 ity of [place] 4.2.7.2.686 Anthony as GUIDO?BLEA [id number] [address] MEDICAL OFFICE [facility] 2021-11-06 2021-11-06 Telephone [facility] 1.2.258.938 [id number] Univers 00:00:00 00:00:00 Shira HEALTH 350.1.13.10 ity of [place] 4.2.7.2.686 Anthony as GUIDO?BLEA [id number] [address] OFFICE [facility] 2021-11-03 2021-11-03 Outpatient R SARINA [facility] [id number] Univers 15:40:00 16:24:15 SHIRA ity [facility] 2021-11-03 2021-11-03 Office [facility] 1.2.840.114 [id number] Univers 15:40:00 16:24:15 Visit [facility] 350.1.13.10 ity of [facility] 4.2.7.2.686 Anthony as GUIDO?BLEA [id number] [address] OFFICE [facility] 2021-11-03 2021-11-03 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 Lab, Ang - Db [facility] 1.2.840.1 14 [id number] Univers 16:00:00 16:15:00 [facility] 350.1.13.10 ity of [place] 4.2.7.2.686 Anthony as GUIDO?BLEA [id number] [address] MEDICAL OFFICE [facility] 2021-10-27 2021-10-27 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 Lab, Ang - Db [facility] 1.2.840.1 14 [id number] Univers 16:30:00 16:45:00 Visit Sarina [facility] 350.1.13.10 ity of [place] 4.2.7.2.686 Anthony as GUIDO?BLEA [id number] [address] OFFICE [facility] 2021-10-27 2021-10-27 Office [facility] 1.2.840.114 [id number] Univers 15:20:00 16:26:33 Visit [facility] 350.1.13.10 ity of [place] 4.2.7.2.686 Anthony as GUIDO?BLEA [id number] [address] OFFICE [facility] 2021-10-27 2021-10-27 Outpatient R JAMESON [facility] [id number] Univers 09:20:00 09:36:44 CHELO dangelo [facility] 2021-10-27 2021-10-27 Jhonatan Barba Amanda [facility] 1.2.840.114 [id number] Univers 09:20:00 09:36:44 Care Henrry Garza HEALTH 350.1.13.10 ity of [place] 4.2.7.2.686 Anthony as GUIDO?BLEA [id number] [address] OFFICE [facility] 2021-10-18 2021-10-18 Urgent Henrry Garza [facility] 1.2.840.114 [id number] Univers 11:00:00 11:20:00 Davey Valentin Arden HEALTH 350.1.13.10 ity of [place] 4.2.7.2.686 Anthony as GUIDO?BLEA [id number] [address] OFFICE [facility] 2021-10-18 2021-10-18 Outpatient R VALENTIN [facility] [id number] Univers 11:00:00 11:00:00 ARDEN ity of [facility] 2021-10-17 2021-10-17 Refelliot Gates [facility] 1.2.840.114 [id number] Univers 00:00:00 00:00:00 Karmen HEALTH 350.1.13.10 it y of [place] 4.2.7.2.686 Anthony as GUIDO?BLEA [id number] [address] OFFICE [facility] 2021-09-09 2021-09-09 Refelliot Coleman [facility] 1.2.840.114 [id number] Univers 00:00:00 00:00:00 Zuri A HEALTH 350.1.13.10 i ty of [place] 4.2.7.2.686 Anthony as GUIDO?BLEA [id number] [address] OFFICE [facility] 2021-09-02 2021-09-02 Refelliot Dee [facility] 1.2.840.114 [id number] Univers 00:00:00 00:00:00 Wondiful A HEALTH 350.1.13.10 ity of [place] 4.2.7.2.686 Anthony as GUIDO?BLEA [id number] [address] OFFICE [facility] 2021-08-29 2021-08-29 Outpatient [facility] [id number] Univers 13:00:00 13:00:00 ZURI ity [facility] 2021-08-27 2021-08-27 Urgent Karmen Gates [facility] 1.2.840.11 4 [id number] Univers 13:00:00 13:20:00 Care Thang, Jude HEALTH 350.1.13.10 ity of [place] 4.2.7.2.686 Anthony as GUIDO?BLEA [id number] [facility] [address] [place] MEDICAL OFFICE [facility] 2021-08-27 2021-08-27 Outpatient [facility] [id number] Univers 13:00:00 13:00:00 JUDE ity o f [facility] 2021-08-26 2021-08-26 Telephone [facility] 1.2.648.673 [id number] Univers 00:00:00 00:00:00 Zuri A HEALTH 350.1.13.10 i ty of [place] 4.2.7.2.686 Anthony as GUIDO?BLEA [id number] [facility] [address] [facility] OFFICE [facility] 2021-08-26 2021-08-26 Refill [facility] 1.2.840.114 [id number] Univers 00:00:00 00:00:00 Zuri A HEALTH 350.1.13.10 i ty of [place] 4.2.7.2.686 Anthony as GUIDO?BLEA [id number] [facility] [address] [facility] OFFICE [facility] 2021-08-22 2021-08-22 Outpatient [facility] [id number] Univers 16:00:00 16:00:00 [facility] 2021-08-22 2021-08-22 Outpatient [facility] [id number] Univers 15:00:00 15:00:00 [facility] 2021-08-22 2021-08-22 Abstract [facility] 1.2.840.114 [id number] Univers 00:00:00 00:00:00 Shira HEALTH 350.1.13.10 ity of [place] 4.2.7.2.686 Anthony as GUIDO?BLEA [id number] [address] OFFICE [facility] 2021-08-14 2021-08-14 Outpatient R JARED [facility] [id number] Univers 13:00:00 15:12:18 ZURI dangelo of [facility] 2021-08-14 2021-08-14 Office [facility] 1.2.840.114 [id number] Univers 13:00:00 15:12:18 Visit Zuri Corcoran HEALTH 350.1.13.10 i ty of [place] 4.2.7.2.686 Anthony as GUIDO?BLEA [id number] [address] OFFICE [facility] 2021-08-13 2021-08-13 Telephone [facility] 1.2.840.114 [id number] Univers 00:00:00 00:00:00 Nik HEALTH 350.1.13.10 it y of [place] 4.2.7.2.686 Anthony as GUIDO?BLEA [id number] [address] OFFICE [facility] 2021-08-12 2021-08-12 Telephone [facility] 1.2.840.114 [id number] Univers 00:00:00 00:00:00 Nik HEALTH 350.1.13.10 it y of [place] 4.2.7.2.686 Anthony as GUIDO?BLEA [id number] [address] OFFICE [facility] 2021-08-07 2021-08-07 Telephone [facility] 1.2.840.114 [id number] Univers 00:00:00 00:00:00 Nik HEALTH 350.1.13.10 it y of [place] 4.2.7.2.686 Anthony as GUIDO?BLEA [id number] [address] OFFICE [facility] 2021-08-01 2021-08-01 Telephone [facility] 1.2.840.114 [id number] Univers 00:00:00 00:00:00 Nik HEALTH 350.1.13.10 it y of [place] 4.2.7.2.686 Anthony as GUIDO?BLEA [id number] Nj michele HENRIQUEZ [address] [facility] OFFICE [facility] 2021-07-04 2021-07-04 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 Lab, Ang - Db [facility] 1.2.840.1 14 [id number] Univers 16:45:00 17:00:00 Visit Nik Vargas [facility] 350.1.13 .10 ity of [place] 4.2.7.2.686 Anthony as GUIDO?BLEA [id number] Nj michele HENRIQUEZ [address] [facility] OFFICE [facility] 2021-07-04 2021-07-04 Outpatient R [facility] [id number] Univers 16:45:00 16:45:00 NIK [facility] 2021-07-04 2021-07-04 Office [facility] 1..840.114 [id number] Univers 16:15:00 16:30:00 Visit [facility] 350.1.13.10 it y of [place]x [place] 4.2.7.2.686 Anthony as GUDIO?BLEA [id number] Nj michele [address] OFFICE [facility] 2021-07-04 2021-07-04 [facility] [id number] Univers 16:15:00 16:15:00 [facility] 2021-06-23 2021-06-23 Telephone [facility] 1.2.933.818 0221 1854 Univers 00:00:00 00:00:00 Zuri A HEALTH 350.1.13.10 i ty of [place] 4.2.7.2.686 Anthony as GUIDO?BLEA [id number] Nj michele HENRIQUEZ [address] [place] [address] OFFICE [facility] 2021-06-18 2021-06-18 Telephone [facility] 1.2.042.688 [id number] [id number] Univers 00:00:00 00:00:00 Zuri A HEALTH 350.1.13.10 i ty of [place] 4.2.7.2.686 Anthony as GUIDO?BLEA [id number] Nj michele ARROYO[address] OFFICE [facility] 2021-05-28 2021-05-28 Telephone [facility] 1.2.520.417 [id number] 1468 Univers 00:00:00 00:00:00 [facility] 350.1.13.10 ity [place] [id number] [address] 2021-05-27 2021-05-27 Telephone [facility] 1.2.571.139 8540 [id number] Univers 00:00:00 00:00:00 [facility] 350.1.13.10 ity of [place]2.7.2.[place] [id number] [address] 2021-05-20 2021-05-20 Orders Doctor CARMEL 1.2.840.114 [id number] Univers 00:00:00 00:00:00 Only Unassigned, NICHOLAS 350.1.13.10 ity of [place] [facility] 4.2.7.2.686 Anthony as [id number] [address] 2021-05-19 2021-05-19 Refill [facility] 1.2.840.114 [id number] Univers 00:00:00 00:00:00 Zuri A HEALTH 350.1.13.10 i ty of [place] 4.2.7.2.686 Anthony as GUIDO?BLEA [id number] [address] MEDICAL OFFICE [facility] 2021-05-19 2021-05-19 Telephone [facility] 1.2.861.953 [id number] 5758 Univers 00:00:00 00:00:00 [facility] 350.1.13.10 ity [place]2.7.2.[place] [id number] [address] 2021-05-16 2021-05-16 Refill [facility] 1.2.840.114 [id number] Univers 00:00:00 00:00:00 Zuri [facility] 350.1.13.10 i ty of [place] 4.2.7.2.686 Anthony as GUIDO?BLEA [id number] [address] MEDICAL OFFICE [facility] 2021-05-08 2021-05-08 [facility] 1.2.840.114 [id number] Univers 00:00:00 00:00:00 Zuri [facility] 350.1.13.10 i ty of [place] 4.2.7.2.686 Anthony as GUIDO?BLEA [id number] [address] OFFICE [facility] 2021-04-30 2021-04-30 Outpatient R JARED [facility] [id number] Univers 14:00:00 14:46:58 ZURI ity of [facility] 2021-04-30 2021-04-30 Office [facility] 1.2.840.114 [id number] Univers 14:00:00 14:46:58 Visit Zuri [facility] 350.1.13.10 i ty of [place] 4.2.7.2.686 Anthony as GUIDO?BLEA [id number] [address] OFFICE [facility] 2021-04-30 2021-04-30 Telephone [facility] 1.2.840.114 [id number] Univers 00:00:00 00:00:00 Wondiful [facility] 350.1.13.10 ity of [place] 4.2.7.2.686 Anthony as GUIDO?BLEA [id number] [address] 2021-03-13 2021-03-13 [facility]phone [facility] 1.2.840.114 [id number] Univers 00:00:00 00:00:00 Wondiful A [facility] 350.1.13.10 ity of [place] 4.2.7.2.686 Anthony as GUIDO?BLEA [id number] [address] OFFICE [facility] 2021-03-04 2021-03-04 Outpatient R [facility] [id number] Univers 14:00:00 14:58:03 WONDIFUL ity o f [facility] 2021-03-04 2021-03-04 Office Mariela Edwards [facility] 1.2.840.114 [id number] Univers 14:00:00 14:58:03 Visit [place], Wondiful A [facility] 350.1.13.1 0 ity of [place] 4.2.7.2.686 Anthony as GUIDO?BLEA [id number] [address] 2021-03-04 2021-03-04 Outpatient R [facility] [id number] Univers 14:00:00 14:58:03 WONDIFUL ity o f [facility] 2021-03-04 2021-03-04 [facility] [id number] Univers 14:00:00 14:58:03 WONDIFUL ity o f [facility] 2021-02-26 2021-02-26 Telephone [facility] 1.2.840.114 [id number] Univers 00:00:00 00:00:00 Wondiful [facility] 350.1.13.10 ity of [place] 4.2.7.2.686 Anthony as GUDIO?BLEA [id number] [address] 2021-02-26 2021-02-26 [facility]phone [facility] 1.2.840.114 [id number] Univers 00:00:00 00:00:00 Wondiful [facility] 350.1.13.10 ity of [place] 4.2.7.2.686 Anthony as GUIDO?BLEA [id number] [address] 2021-02-18 2021-02-18 [facility]phone [facility] 1.2.416.450 [id number] Univers 00:00:00 00:00:00 Q[place]jun [place] 350.1.13.10 ity of [place] [place] [phone] [address] 2021-02-13 2021-02-13 [facility]phone [facility] 1.2.524.930 [id number] Univers 00:00:00 00:00:00 Qiangjun [place] 350.1.13.10 ity of [place] [id number] [address] 2021-02-13 2021-02-13 Orders Doctor CARMEL 1.2.840.114 [id number] Univers 00:00:00 00:00:00 Only Unassigned, NICHOLAS 350.1.13.10 ity of [place] [facility] 4.2.7.2.686 Anthony as [phone] [address] 2021-02-10 2021-02-10 Telephone [facility] 1.2.826.519 [id number] Univers 00:00:00 00:00:00 Pjjaskarannanette PATRIA 350.1.13.10 it[facility] 4.2.7.2.[place] [phone] Nj dical NAL 9 [facility] 2021-02-10 2021-02-10 [facility] 1.2.210.755 [id number] Univers 00:00:00 00:00:00 Pjjaskarannanette [place] 350.1.13.10 ity [facility] 4.2.7.2.[place] [phone] Nj dical NAL [address] [place] [address] 2021-02-04 2021-02-04 [facility] 1.2.320.030 [id number] Univers 00:00:00 00:00:00 Pjjaskarannanette [place] 350.1.13.10 ity of [place] 4[place].7.2.[place] [phone] Nj dical NAL 9 [facility] 2021-02-03 2021-02-03 Outpatient R [facility] [id number] Univers 13:48:03 23:59:00 DESTINY rossiy o [facility] 2021-02-03 2021-02-03 Outpatient R [facility] [id number] Univers 13:48:03 23:59:00 DESTINY rossiy o [facility] 2021-02-03 2021-02-03 Outpatient R [facility] [id number] Univers 13:48:03 23:59:00 DESTINY ity o f [facility] 2021-02-03 2021-02-03 [facility] 1.2.840.114 [id number] Univers 13:48:03 23:59:00 Encounter Destiny ESPAÑA 350.1.13.10 ity of [place] 4.2.7.2.[place] [phone] Nj dical NAL 843 [facility] 2021-01-13 2021-01-13 Outpatient R DU, [facility] [id number] Univers 15:20:00 16:08:31 DESTINY rossiy o f [facility] 2021-01-13 2021-01-13 Outpatient R DU, [facility] [id number] Univers 15:20:00 16:08:31 DESTINY rossiy o f [facility] 2021-01-13 2021-01-13 Outpatient R DU, [facility] [id number] Univers 15:20:00 16:08:31 DESTINY dangelo o [facility] 2021-01-13 2021-01-13 Office [facility] 1.2.840.114 [id number] Univers 15:20:00 16:08:31 Visit Destiny ESPAÑA 350.1.13.10 ity [facility] 4.2.7.2.[place] [phone] [facility] NAL 059 [facility] 2021-01-13 2021-01-13 Office [facility] 1.2.840.114 [id number] Univers 15:10:05 16:08:31 Visit Destiny ESPAÑA 350.1.13.10 ity of [place] 4.2.7.2.[place] [phone] [facility] NAL [address] [place] [address] 2021-01-07 2021-01-07 Telephone [facility] 1.2.796.563 [id number] Univers 00:00:00 00:00:00 Destiny ESPAÑA 350.1.13.10 ity of [place] 4.[place].7.2.[place] [phone] [facility] NAL [address] [place] [address] 2021-01-06 2021-01-06 Orders Doctor CARMEL 1.2.840.114 [id number] Univers 00:00:00 00:00:00 Only Unassigned, NICHOLAS 350.1.13.10 ity of [place] [facility] 4.2.7.2.686 Anthony as [phone] [address] 2020-12-30 2020-12-30 [facility] 1.2.840.114 [id number] Univers 00:00:00 00:00:00 Wondiful A HEALTH 350.1.13.10 ity of [place] 4.2.7.2.686 Anthony as GUIDO?BLEA [phone] [address] MEDICAL OFFICE [facility] 2020-12-24 2020-12-24 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, [place] - Db [facility] 1.2.840.1 [id number] Univers 15:16:07 15:31:07 Visit Moreno eDe A HEALTH 350.1.13.1 0 ity of [place] 4.2.7.2.686 Anthony as GUIDO?BLEA [phone] [address] OFFICE [facility] 2020-12-24 2020-12-24 [facility] [id number] Univers 15:30:00 15:30:00 WONDIFUL ity o f [facility] 2020-12-24 2020-12-24 [facility] [id number] Univers 15:30:00 15:25:12 WONDIFUL ity o f [facility] 2020-12-24 2020-12-24 Telephone [facility] 1.2.840.114 [id number] Univers 00:00:00 00:00:00 Wondiful A HEALTH 350.1.13.10 ity of [place] 4.2.7.2.686 Anthony as GUIDO?BLEA [id number] [address] OFFICE [facility] 2020-12-24 2020-12-24 Telephone [facility] 1.2.840.114 [id number] Univers 00:00:00 00:00:00 Wondiful A HEALTH 350.1.13.10 ity of [place] 4.2.7.2.686 Anthony as GUIDO?BLEA [phone] [address] MEDICAL OFFICE [facility] 2020-12-19 2020-12-19 Telephone [facility] 1.2.840.114 [id number] Univers 00:00:00 00:00:00 Wondiful A HEALTH 350.1.13.10 ity of [place] 4.2.7.2.686 Anthony as GUIDO?BLEA [phone] [address] OFFICE [facility] 2020-12-19 2020-12-19 Telephone [facility] 1.2.840.114 [id number] Univers 00:00:00 00:00:00 Wondiful A HEALTH 350.1.13.10 ity of [place] 4.2.7.2.686 Anthony as GUIDO?BLEA [phone] [address] OFFICE [facility] 2020-12-12 2020-12-12 Orders Doctor CARMEL 1.2.840.114 [id number] Univers 00:00:00 00:00:00 Only Unassigned, NICHOLAS 350.1.13.10 ity of [place] [facility] 4.2.7.2.686 Anthony as [phone] [address] 2020-12-10 2020-12-10 Telephone [facility] 1.2.840.114 [id number] Univers 00:00:00 00:00:00 Wondiful A HEALTH 350.1.13.10 ity of [place] 4.2.7.2.686 Atnhony as GUIDO?BLEA [phone] [address] OFFICE [facility] 2020 2020 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, Ang - [facility] 1.2.840.1 [id number] Univers 16:05:47 16:20:47 Visit Pat Dee [facility] 350.1.13.10 ity of [place] 4.2.7.2.686 Anthony as GUIDO?BLEA [phone] [address] OFFICE [facility] 2020 2020 Outpatient Sean DEE [facility] [id number] Univers 16:15:00 16:15:00 PAT dangelo [facility] 2020 2020 [facility]patient [facility] [id number] Univers 15:30:00 16:03:54 WONDIFUL ity o f [facility] 2020 2020 Outpatient R LEILA [facility] [id number] Univers 15:30:00 16:03:54 WONDIFUL ity o f [facility] 2020 2020 Office Leila [facility] 1.2.840.114 [id number] Univers 15:27:26 16:03:54 Visit Wondiful A HEALTH 350.1.13.10 ity of [place] 4.2.7.2.686 Anthony as GUIDO?BLEA [id number] [address] OFFICE [facility] 2020-11-26 2020-11-26 Refill [facility] 1.2.840.114 [id number] Univers 00:00:00 00:00:00 Wondiful A Health 350.1.13.10 ity of [place] 4.2.7.2.686 Anthony as Professio [phone] [address] 2020-11-25 2020-11-25 [facility]ill [facility] 1.2.840.114 [id number] Univers 00:00:00 00:00:00 Wondiful A Health 350.1.13.10 ity of [place] 4.2.7.2.686 Anthony as Professio [id number] [address] 2020-11-14 2020-11-14 Telephone Leila [facility] 1.2.840.114 [id number] Univers 00:00:00 00:00:00 Wondiful A Health 350.1.13.10 ity of [place] 4.2.7.2.686 Anthony as Guido?Blea [phone] [address] Office [facility] 2020-10-09 2020-10-09 Office Amanda Butler [facility] 1.2.840.114 [id number] Univers 14:00:00 16:00:00 Visit Patti [employer] AT 350.1.13.10 [place] [phone] [address] 2020-10-09 2020-10-09 Office Le, [facility] 1.2.840.114 [id number] Univers 13:55:59 15:55:59 Visit [facility] AT 350.1.13.10 ity of [place] 4.2.7.2.686 [place]avi FARRIS [id number] [address] 2020-10-09 2020-10-09 Outpatient R LE, [facility] [id number] Univers 14:00:00 14:00:00 ity [facility] 2020-10-09 2020-10-09 Outpatient R LE, [facility] [id number] Univers 14:00:00 14:00:00 ity [facility] 2020-10-09 2020-10-09 Outpatient R LE, [facility] [id number] Univers 14:00:00 14:00:00 ity [facility] 2020-10-09 2020-10-09 Outpatient R LE, [facility] [id number] Univers 14:00:00 14:00:00 ity [facility] 2020-10-09 2020-10-09 Letter Doctor CARMEL 1.2.840.114 [id number] Univers 00:00:00 00:00:00 (Out) Unassigned, NICHOLAS 350.1.13.10 ity of [place] [facility] 4.2.7.2.686 Anthony as [phone] [address] 2020-10-07 2020-10-07 Telephone [facility] 1.2.840.114 [id number] Univers 00:00:00 00:00:00 Wondiful A Health 350.1.13.10 ity of [place] 4.2.7.2.686 Anthony as Guido?Blea [phone] Nj nandoramiro arroyo[address] Medical Office Building 2020-10-02 2020-10-02 Telephone Mandi [facility] 1.2.840.114 [id number] Univers 00:00:00 00:00:00 [facility] at 350.1.13.10 ity of [place] 4.2.7.2.686 Emely Farris [phone] [address] 2020-09-13 2020-09-13 Outpatient R LEILA, [facility] [id number] Univers 15:45:00 15:45:00 WONDIFUL ity o f [facility] 2020-08-12 2020-08-12 Outpatient R LEILA [facility] [id number] Univers 10:45:00 10:45:00 WONDIFUL ity o f [facility] 2020-04-11 2020-04-11 Outpatient R LEILA [facility] [id number] Univers 14:30:00 14:30:00 WONDIFUL ity o f [facility] 2020-04-04 2020-04-04 Outpatient R LEILA, [facility] [id number] Univers 00:00:00 00:00:00 WONDIFUL ity o f [facility] 2020-03-25 2020-03-25 Outpatient R LEILA, [facility] [id number] Univers 17:00:00 17:00:00 WONDIFUL ity o f [facility] 2020-02-23 2020-02-23 Outpatient R [facility] [id number] Univers 14:20:00 14:20:00 ity [facility] 2020-02-19 2020-02-19 [facility] [id number] Univers 14:30:00 14:30:00 WONDIFUL ity o f [facility] 2020-01-29 2020-01-29 [facility] [id number] Univers 15:00:00 15:00:00 WONDIFUL ity o f [facility] 2019-11-13 2019-11-13 Telephone [facility] 1.2.840.114 [id number] 00:00:00 00:00:00 Chepe MUNIZ 350.1.13.10 [facility] 4.2.7.2.686 TANG [id number] [id number] 2019-11-03 2019-11-03 Outpatient R KAILYN [facility] [id number] Univers 11:00:00 11:00:00 [facility] 2019-11-03 Outpatient R KAILYN [facility] [id number] Univers 09:45:00 09:45:00 ERIC [facility] 2019-10-17 2019-10-17 Outpatient R SHERLY [facility] [id number] Univers 15:00:00 15:00:00 CHEPE [facility] 2019-09-27 2019-09-27 Outpatient R SHERLY [facility] [id number] Univers 09:45:49 23:59:00 CHEPE prudencio [facility] 2019-09-27 2019-09-27 Outpatient R SHERLY [facility] [id number] Univers 08:00:00 08:00:00 CHEPE [facility] 2019-06-27 2019-06-27 Outpatient R GIANNI [facility] [id number] Univers 13:30:00 13:30:00 [facility] 2019-06-13 2019-06-13 [facility] [id number] Univers 16:00:00 16:00:00 [facility] 2019-05-23 2019-05-23 [facility] [id number] Univers 13:00:00 13:00:00 [facility] 2019-04-17 2019-04-17 Outpatient R [facility] [id number] Univers 16:00:00 16:00:00 [facility] 2019-04-05 2019-04-05 Outpatient R DU [facility] [id number] Univers 15:00:00 15:00:00 DESTINY dangelo o f [facility] Results Test Description Test Time Test Comments Results Result Comments Source IMMUNOLOGY 2022-07-22 21:25:00 Test Item Value Reference Range Interpretation Comme nts Coronavirus (COVID-19) DIVYA (test code = Not Detected 8(07/22/22 4:25 PM) Coronavirus (COVID-19) DIVYA) [id number] 21:25:00 Test Item Value Reference Range Interpretation Comments Coronavirus (COVID-19) Not Detected DIVYA (test code = 16(07/22/22 4:25 PM) Coronavirus (COVID-19) DIVYA) [facility]2023-06-12 10:20:00 Test Item Value Reference Range Interpretation Comments Glucose Lvl (test code = Glucose Lvl) 108 70-99 [facility]2023-06-12 10:20:00 Test Item Value Reference Range Interpretation Comments BUN (test code = BUN) 21 7-22 [facility]2023-06-12 10:20:00 Test Item Value Reference Range Interpretation Comments Creatinine Lvl (test code = Creatinine 1.03 0.50-1.40 Lvl) [facility]2023-06-12 10:20:00 Test Item Value Reference Range Interpretation Comments Sodium Lvl (test code = Sodium Lvl) 139 135-145 [facility]2023-06-12 10:20:00 Test Item Value Reference Range Interpretation Comments Potassium Lvl (test code = Potassium 4.0 3.5-5.1 Lvl) [facility]2023-06-12 10:20:00 Test Item Value Reference Range Interpretation Comments Chloride Lvl (test code = Chloride Lvl) 106 95-109 [facility]2023-06-12 10:20:00 Test Item Value Reference Range Interpretation Comments CO2 (test code = CO2) 29 24-32 [facility]2023-06-12 10:20:00 Test Item Value Reference Range Interpretation Comments Calcium Lvl (test code = Calcium Lvl) 9.5 8.5-10.5 [facility]2023-06-12 10:20:00 Test Item Value Reference Range Interpretation Comments AGAP (test code = AGAP) 8.0 10.0-20.0 [facility]2023-06-12 10:20:00 Test Item Value Reference Range Interpretation Comments eGFR (test code = eGFR) 78 [facility]2023-06-12 10:20:00 Test Item Value Reference Range Interpretation Comments Magnesium Lvl (test code = Magnesium 2.0 1.8-2.4 Lvl) [facility]7242[facility]-41 10:20:00 Test Item Value Reference Range Interpretation Comments Glucose Lvl (test code = Glucose Lvl) 108 70-99 [facility] HospitalTsjdtqnDBWUSXSIG7234-98-48 10:20:00 Test Item Value Reference Range Interpretation Comments BUN (test code = BUN) 21 7-22 [facility] HospitalXdvagcaTNZWDRVMU0811-28-82 10:20:00 Test Item Value Reference Range Interpretation Comments Creatinine Lvl (test code = Creatinine 1.03 0.50-1.40 Lvl) [facility] HospitalCmmevdlEDGURIOEX7016-65-96 10:20:00 Test Item Value Reference Range Interpretation Comments Sodium Lvl (test code = Sodium Lvl) 139 135-145 [facility] HospitalQaqjinsGFMZNNQQY0872-71-73 10:20:00 Test Item Value Reference Range Interpretation Comments Potassium Lvl (test code = Potassium 4.0 3.5-5.1 Lvl) [facility] HospitalAometlkHJIYEYGPK5449-34-78 10:20:00 Test Item Value Reference Range Interpretation Comments Chloride Lvl (test code = Chloride Lvl) 106 95-109 [facility] HospitalKytxfsnMVEVMUYIU2245-98-48 10:20:00 Test Item Value Reference Range Interpretation Comments CO2 (test code = CO2) 29 24-32 [facility] HospitalTbnfbexIXZWEKRVI9251-58-12 10:20:00 Test Item Value Reference Range Interpretation Comments Calcium Lvl (test code = Calcium Lvl) 9.5 8.5-10.5 [facility] HospitalXdxzokjPVKMXZACM9444-97-34 10:20:00 Test Item Value Reference Range Interpretation Comments AGAP (test code = AGAP) 8.0 10.0-20.0 [facility] HospitalXdaivgnFUXYAQZLM2459-20-62 10:20:00 Test Item Value Reference Range Interpretation Comments eGFR (test code = eGFR) 78 [facility] HospitalOxjkdwjYTRIQOVKQ4147-68-94 10:20:00 Test Item Value Reference Range Interpretation Comments Magnesium Lvl (test code = Magnesium 2.0 1.8-2.4 Lvl) [facility] [id number] 20:18:00 Test Item Value Reference Range Interpretation Comments UA RBC (test code = 1 See_Comment [Automa elva message] The UA RBC) system which ge nerated this result transmit elva reference range : <=2. The reference range was not used to interpr et this result as janusz l/abnormal. [facility] [id number] 20:18:00 Test Item Value Reference Range Interpretation Comments UA Mucus (test code = UA Mucus) Few /LPF [facility] AND [id number] 20:18:00 Test Item Value Reference Range Interpretation Comments UA Urobilinogen (test code = UA <=1.0 mg/dL 0.1-1.0 Urobilinogen) [facility] AND [id number] 20:18:00 Test Item Value Reference Range Interpretation Comments UA Color (test code = Yellow *NA*(07/19/22 UA Color) 3:18 PM) [facility] AND [id number] 20:18:00 Test Item Value Reference Range Interpretation Comments UA Turbidity (test code = Clear (07/19/22 3:18 UA Turbidity) PM) [facility] AND [id number] 20:18:00 Test Item Value Reference Range Interpretation Comments UA Spec Grav (test code = UA Spec 1.026 1 Grav) [facility] AND [id number] 20:18:00 Test Item Value Reference Range Interpretation Comments UA pH (test code = UA pH) 5.0 1 5.0-8.0 [facility] AND [id number] 20:18:00 Test Item Value Reference Range Interpretation Comments UA Protein (test code = UA Negative mg/dL Protein) [facility] AND [id number] 20:18:00 Test Item Value Reference Range Interpretation Comments UA Glucose (test code = UA Negative mg/dL Glucose) [facility] AND [id number] 20:18:00 Test Item Value Reference Range Interpretation Comments UA Ketones (test code = UA Ketones) 20 mg/dL [facility] AND [id number] 20:18:00 Test Item Value Reference Range Interpretation Comments UA Bili (test code = Negative *NA*(07/19/22 UA Bili) 3:18 PM) [facility] AND [id number] 20:18:00 Test Item Value Reference Range Interpretation Comments UA Blood (test code = Negative (07/19/22 3:18 UA Blood) PM) [facility] AND [id number] 20:18:00 Test Item Value Reference Range Interpretation Comments UA Nitrite (test code Negative (07/19/22 3:18 = UA Nitrite) PM) [facility] AND [id number] 20:18:00 Test Item Value Reference Range Interpretation Comments UA Leuk Est (test Negative (07/19/22 3:18 code = UA Leuk Est) PM) [facility] AND [id number] 20:18:00 Test Item Value Reference Range Interpretation Comments UA Ascorbic Acid (test Negative code = UA Ascorbic 15*NA*(07/19/22 3:18 Acid) PM) [facility] AND [id number] 20:18:00 Test Item Value Reference Range Interpretation Comments UA Sq Epi (test code = UA Sq Occasional /LPF Epi) [facility] AND [id number] 20:18:00 Test Item Value Reference Range Interpretation Comments UA WBC (test code = 1 See_Comment [Automa elva message] The UA WBC) system which ge nerated this result transmit elva reference range : <=5. The reference range was not used to interpr et this result as janusz l/abnormal. [facility] AND [id number] 20:18:00 Test Item Value Reference Range Interpretation Comments UA RBC (test code = 1 See_Comment [Automa elva message] The UA RBC) system which ge nerated this result transmit elva reference range : <=2. The reference range was not used to interpr et this result as janusz l/abnormal. [facility] AND [id number] 20:18:00 Test Item Value Reference Range Interpretation Comments UA Mucus (test code = UA Mucus) Few /LPF [facility] AND [id number] 20:18:00 Test Item Value Reference Range Interpretation Comments UA Urobilinogen (test code = UA <=1.0 mg/dL 0.1-1.0 Urobilinogen) [facility] AND [id number] 20:18:00 Test Item Value Reference Range Interpretation Comments UA Color (test code = Yellow *NA*(07/19/22 UA Color) 3:18 PM) [facility] AND [id number] 20:18:00 Test Item Value Reference Range Interpretation Comments UA Turbidity (test code = Clear (07/19/22 3:18 UA Turbidity) PM) [facility] [id number] 20:18:00 Test Item Value Reference Range Interpretation Comments UA Spec Grav (test code = UA Spec 1.026 1 Grav) [facility] AND [id number] 20:18:00 Test Item Value Reference Range Interpretation Comments UA pH (test code = UA pH) 5.0 1 5.0-8.0 [facility] AND [id number] 20:18:00 Test Item Value Reference Range Interpretation Comments UA Protein (test code = UA Negative mg/dL Protein) [facility] AND [id number] 20:18:00 Test Item Value Reference Range Interpretation Comments UA Glucose (test code = UA Negative mg/dL Glucose) [facility] AND [id number] 20:18:00 Test Item Value Reference Range Interpretation Comments UA Ketones (test code = UA Ketones) 20 mg/dL [facility] AND [id number] 20:18:00 Test Item Value Reference Range Interpretation Comments UA Bili (test code = Negative *NA*(07/19/22 UA Bili) 3:18 PM) [facility] AND [id number] 20:18:00 Test Item Value Reference Range Interpretation Comments UA Blood (test code = Negative (07/19/22 3:18 UA Blood) PM) [facility] AND [id number] 20:18:00 Test Item Value Reference Range Interpretation Comments UA Nitrite (test code Negative (07/19/22 3:18 = UA Nitrite) PM) [facility] AND [id number] 20:18:00 Test Item Value Reference Range Interpretation Comments UA Leuk Est (test Negative (07/19/22 3:18 code = UA Leuk Est) PM) [facility] AND [id number] 20:18:00 Test Item Value Reference Range Interpretation Comments UA Ascorbic Acid (test Negative 7*NA*(07/19/22 code = UA Ascorbic 3:18 PM) Acid) [facility] AND [id number] 20:18:00 Test Item Value Reference Range Interpretation Comments UA Sq Epi (test code = UA Sq Occasional /LPF Epi) [facility] AND [id number] 20:18:00 Test Item Value Reference Range Interpretation Comments UA WBC (test code = 1 See_Comment [Automa elva message] The UA WBC) system which ge nerated this result transmit elva reference range : <=5. The reference range was not used to interpr et this result as janusz l/abnormal. [place] [id number] 09:32:00 Test Item Value Reference Range Interpretation Comments Magnesium Lvl (test code = Magnesium 1.9 1.8-2.4 Lvl) [place] [id number] 09:32:00 Test Item Value Reference Range Interpretation Comments Glucose Lvl (test code = Glucose Lvl) 102 70-99 [place] 95683-06-10 09:32:00 Test Item Value Reference Range Interpretation Comments BUN (test code = BUN) 24 7-22 [place] [id number] 09:32:00 Test Item Value Reference Range Interpretation Comments Creatinine Lvl (test code = Creatinine 0.94 0.50-1.40 Lvl) [place] 95683-06-10 09:32:00 Test Item Value Reference Range Interpretation Comments Sodium Lvl (test code = Sodium Lvl) 137 135-145 [place] 95683-06-10 09:32:00 Test Item Value Reference Range Interpretation Comments Potassium Lvl (test code = Potassium 3.8 3.5-5.1 Lvl) [place] 687653-06-10 09:32:00 Test Item Value Reference Range Interpretation Comments Chloride Lvl (test code = Chloride Lvl) 107 95-109 [place] 687653-06-10 09:32:00 Test Item Value Reference Range Interpretation Comments CO2 (test code = CO2) 26 24-32 [place] 95[address]-06-10 09:32:00 Test Item Value Reference Range Interpretation Comments Calcium Lvl (test code = Calcium Lvl) 9.0 8.5-10.5 [place] 687653-06-10 09:32:00 Test Item Value Reference Range Interpretation Comments AGAP (test code = AGAP) 7.8 10.0-20.0 [place] [address]-06-10 09:32:00 Test Item Value Reference Range Interpretation Comments eGFR (test code = eGFR) 87 [place] [address]-06-10 09:32:00 Test Item Value Reference Range Interpretation Comments WBC (test code = WBC) 5.9 3.7-10.4 [place] [address]-06-10 09:32:00 Test Item Value Reference Range Interpretation Comments RBC (test code = RBC) 4.62 4.70-6.10 [place] [address]-06-10 09:32:00 Test Item Value Reference Range Interpretation Comments Hgb (test code = Hgb) 14.1 14.0-18.0 [place] [address]-06-10 09:32:00 Test Item Value Reference Range Interpretation Comments Hct (test code = Hct) 42.4 42.0-54.0 [place] 144483-06-10 09:32:00 Test Item Value Reference Range Interpretation Comments MCV (test code = MCV) 91.7 80.0-94.0 [place] [address]-06-10 09:32:00 Test Item Value Reference Range Interpretation Comments MCH (test code = MCH) 30.5 pg 27.0-31.0 [facility] MarshallYqayzokQCZJZSYFPK2948-94-19 09:32:00 Test Item Value Reference Range Interpretation Comments MCHC (test code = MCHC) 33.2 32.0-36.0 [place] [address]-06-10 09:32:00 Test Item Value Reference Range Interpretation Comments RDW (test code = RDW) 13.5 11.5-14.5 [place] [address]-06-10 09:32:00 Test Item Value Reference Range Interpretation Comments Platelet (test code = Platelet) 111 133-450 [facility] MarshallAjihqwuKBSPXAATND9408-81-90 09:32:00 Test Item Value Reference Range Interpretation Comments MPV (test code = MPV) 9.3 7.4-10.4 [place] [address]-06-10 09:32:00 Test Item Value Reference Range Interpretation Comments PT (test code = PT) 14.9 s 12.0-14.7 [place] [address]-06-10 09:32:00 Test Item Value Reference Range Interpretation Comments INR (test code = INR) 1.17 1 0.87-1.13 [place] [address]-06-10 09:32:00 Test Item Value Reference Range Interpretation Comments PTT (test code = PTT) 36.6 s 22.9-35.8 [place] [address]-06-10 09:32:00 Test Item Value Reference Range Interpretation Comments Segs (test code = Segs) 81.7 45.0-75.0 [facility] MarshallKphtpadCVSQBHYFNE1954-49-49 09:32:00 Test Item Value Reference Range Interpretation Comments Lymphocytes (test code = Lymphocytes) 8.3 20.0-40.0 [facility] MarshallFhhboslTVJOKMHTKW2998-85-21 09:32:00 Test Item Value Reference Range Interpretation Comments Monocytes (test code = Monocytes) 8.8 2.0-12.0 [facility] MarshallMljrbaoDGFOZYMBVT0109-67-50 09:32:00 Test Item Value Reference Range Interpretation Comments Eosinophils (test code = 1.0 See_Comment [A utomated message] The Eosinophils) system which ge nerated this result tra nsmitted reference range : <=4.0. The reference r shen was not used to int erpret this result as normal/abnormal . [facility] MarshallXmlkpxcVRRLAJUYDK2225-28-82 09:32:00 Test Item Value Reference Range Interpretation Comments Basophils (test code = 0.2 See_Comment [Aut omated message] The Basophils) system which ge nerated this result tra nsmitted reference range : <=1.0. The reference r shen was not used to int erpret this result as normal/abnormal . [facility] MarshallSlgahgcRVLYLFCJMW0540-16-21 09:32:00 Test Item Value Reference Range Interpretation Comments Neutrophils # (test code = Neutrophils 4.8 1.5-8.1 #) [facility] MarshallOudnzccZIOKTLNPKZ0037-21-21 09:32:00 Test Item Value Reference Range Interpretation Comments Lymphocytes # (test code = Lymphocytes 0.5 1.0-5.5 #) [facility] MarshallVmehfszNEYPUKUIPN8067-76-66 09:32:00 Test Item Value Reference Range Interpretation Comments Monocytes # (test code 0.5 See_Comment [Aut omated message] The = Monocytes #) system which generated this result tra nsmitted reference range : <=0.8. The reference r shen was not used to int erpret this result as normal/abnormal . [facility] MarshallIyrhmszRBCYIIDTLK7835-66-87 09:32:00 Test Item Value Reference Range Interpretation Comments Eosinophils # (test code 0.1 See_Comment [A utomated message] The = Eosinophils #) system whic h generated this result tra nsmitted reference range : <=0.5. The reference r shen was not used to int erpret this result as normal/abnormal . [place] 144483-06-10 09:32:00 Test Item Value Reference Range Interpretation Comments WBC (test code = WBC) 5.9 3.7-10.4 [facility] MarshallVzwgadkUNNZZSGUCK6845-30-74 09:32:00 Test Item Value Reference Range Interpretation Comments RBC (test code = RBC) 4.62 4.70-6.10 [place] [address]-06-10 09:32:00 Test Item Value Reference Range Interpretation Comments Hgb (test code = Hgb) 14.1 14.0-18.0 [place] [address]-06-10 09:32:00 Test Item Value Reference Range Interpretation Comments Hct (test code = Hct) 42.4 42.0-54.0 [place] [address]-06-10 09:32:00 Test Item Value Reference Range Interpretation Comments MCV (test code = MCV) 91.7 80.0-94.0 [place] [address]-06-10 09:32:00 Test Item Value Reference Range Interpretation Comments MCH (test code = MCH) 30.5 pg 27.0-31.0 [facility] MarshallVxowvzqRZOADTZRAM2862-35-12 09:32:00 Test Item Value Reference Range Interpretation Comments MCHC (test code = MCHC) 33.2 32.0-36.0 [place] [address]-06-10 09:32:00 Test Item Value Reference Range Interpretation Comments RDW (test code = RDW) 13.5 11.5-14.5 [place] 144483-06-10 09:32:00 Test Item Value Reference Range Interpretation Comments Platelet (test code = Platelet) 111 133-450 [facility] MarshallHedzkqxXIDLILUHEB4655-49-88 09:32:00 Test Item Value Reference Range Interpretation Comments MPV (test code = MPV) 9.3 7.4-10.4 [place] [address]-06-10 09:32:00 Test Item Value Reference Range Interpretation Comments PT (test code = PT) 14.9 s 12.0-14.7 [place] [address]-06-10 09:32:00 Test Item Value Reference Range Interpretation Comments INR (test code = INR) 1.17 1 0.87-1.13 [place] [address]-06-10 09:32:00 Test Item Value Reference Range Interpretation Comments PTT (test code = PTT) 36.6 s 22.9-35.8 [place] 144483-06-10 09:32:00 Test Item Value Reference Range Interpretation Comments Segs (test code = Segs) 81.7 45.0-75.0 [place] 144483-06-10 09:32:00 Test Item Value Reference Range Interpretation Comments Lymphocytes (test code = Lymphocytes) 8.3 20.0-40.0 [place] 144483-06-10 09:32:00 Test Item Value Reference Range Interpretation Comments Monocytes (test code = Monocytes) 8.8 2.0-12.0 [place] [address]-06-10 09:32:00 Test Item Value Reference Range Interpretation Comments Eosinophils (test code = 1.0 See_Comment [A utomated message] The Eosinophils) system which ge nerated this result tra nsmitted reference range : <=4.0. The reference r shen was not used to int erpret this result as normal/abnormal . [facility] MarshallWtbcwvsRZMESWJYML8011-70-09 09:32:00 Test Item Value Reference Range Interpretation Comments Basophils (test code = 0.2 See_Comment [Aut omated message] The Basophils) system which ge nerated this result tra nsmitted reference range : <=1.0. The reference r shen was not used to int erpret this result as normal/abnormal . [facility] MarshallFwpxauxZGQWUBNOAC7106-81-95 09:32:00 Test Item Value Reference Range Interpretation Comments Neutrophils # (test code = Neutrophils 4.8 1.5-8.1 #) [facility] MarshallMtnmjsxTWZIGMWZZR9647-13-79 09:32:00 Test Item Value Reference Range Interpretation Comments Lymphocytes # (test code = Lymphocytes 0.5 1.0-5.5 #) [place] [address]-06-10 09:32:00 Test Item Value Reference Range Interpretation Comments Monocytes # (test code 0.5 See_Comment [Aut omated message] The = Monocytes #) system which generated this result tra nsmitted reference range : <=0.8. The reference r shen was not used to int erpret this result as normal/abnormal . [place] 144483-06-10 09:32:00 Test Item Value Reference Range Interpretation Comments Eosinophils # (test code 0.1 See_Comment [A utomated message] The = Eosinophils #) system [employer] h generated this result tra nsmitted reference range : <=0.5. The reference r shen was not used to int erpret this result as normal/abnormal . [facility]2023-06-09 10:17:00 Test Item Value Reference Range Interpretation Comments Magnesium Lvl (test code = Magnesium 1.8 1.8-2.4 Lvl) [facility]2023-06-09 10:17:00 Test Item Value Reference Range Interpretation Comments Glucose Lvl (test code = Glucose Lvl) 93 70-99 [facility]2023-06-09 10:17:00 Test Item Value Reference Range Interpretation Comments BUN (test code = BUN) 21 7-22 [facility]2023-06-09 10:17:00 Test Item Value Reference Range Interpretation Comments Creatinine Lvl (test code = Creatinine 0.99 0.50-1.40 Lvl) [facility]2023-06-09 10:17:00 Test Item Value Reference Range Interpretation Comments Sodium Lvl (test code = Sodium Lvl) 138 135-145 [facility]2023-06-09 10:17:00 Test Item Value Reference Range Interpretation Comments Potassium Lvl (test code = Potassium 3.8 3.5-5.1 Lvl) [facility]2023-06-09 10:17:00 Test Item Value Reference Range Interpretation Comments Chloride Lvl (test code = Chloride Lvl) 106 95-109 [facility]2023-06-09 10:17:00 Test Item Value Reference Range Interpretation Comments CO2 (test code = CO2) 24 24-32 [facility]2023-06-09 10:17:00 Test Item Value Reference Range Interpretation Comments Calcium Lvl (test code = Calcium Lvl) 9.1 8.5-10.5 [facility]2023-06-09 10:17:00 Test Item Value Reference Range Interpretation Comments AGAP (test code = AGAP) 11.8 10.0-20.0 [facility]2023-06-09 10:17:00 Test Item Value Reference Range Interpretation Comments eGFR (test code = eGFR) 82 [facility] MarshallIgndlfnCZAIEPHYFC9548-33-53 10:17:00 Test Item Value Reference Range Interpretation Comments PT (test code = PT) 14.5 s 12.0-14.7 [facility] MarshallFcxjqlzOLQTGVRTSL8884-11-56 10:17:00 Test Item Value Reference Range Interpretation Comments INR (test code = INR) 1.13 1 0.87-1.13 [facility] MarshallPokfxjdPTYSUGOYHM7955-17-03 10:17:00 Test Item Value Reference Range Interpretation Comments PTT (test code = PTT) 43.2 s 22.9-35.8 [facility] MarshallChcjumkOVVPUQCXSC7185-04-81 10:17:00 Test Item Value Reference Range Interpretation Comments WBC (test code = WBC) 4.8 3.7-10.4 [facility] MarshallEysbmeaIGRTSCALCH2335-77-59 10:17:00 Test Item Value Reference Range Interpretation Comments RBC (test code = RBC) 4.68 4.70-6.10 [facility] MarshallIfzkpudDMAGFQLKHU1708-71-92 10:17:00 Test Item Value Reference Range Interpretation Comments Hgb (test code = Hgb) 14.1 14.0-18.0 [facility] MarshallHqcvcttRFZNPWKTCE0463-92-12 10:17:00 Test Item Value Reference Range Interpretation Comments Hct (test code = Hct) 42.0 42.0-54.0 [facility] MarshallWwbwiqsIRQOPHZZIP2636-29-35 10:17:00 Test Item Value Reference Range Interpretation Comments MCV (test code = MCV) 89.9 80.0-94.0 [facility] MarshallJlkdfccXGPIWQLTIC0471-28-57 10:17:00 Test Item Value Reference Range Interpretation Comments MCH (test code = MCH) 30.2 pg 27.0-31.0 [facility] MarshallPkxsflsUASGCSHQQX5746-92-43 10:17:00 Test Item Value Reference Range Interpretation Comments MCHC (test code = MCHC) 33.6 32.0-36.0 [facility] MarshallEbumadrFQNXIJXUMV6704-78-68 10:17:00 Test Item Value Reference Range Interpretation Comments RDW (test code = RDW) 13.7 11.5-14.5 [facility] MarshallTspgghcVKJWPSJPFP1523-60-08 10:17:00 Test Item Value Reference Range Interpretation Comments Platelet (test code = Platelet) 110 133-450 [facility] MarshallUmdjttmQGVQLDWCQS4992-16-76 10:17:00 Test Item Value Reference Range Interpretation Comments MPV (test code = MPV) 8.9 7.4-10.4 [facility] MarshallJoiktniWRNEXZPVRG4164-34-41 10:17:00 Test Item Value Reference Range Interpretation Comments Segs (test code = Segs) 79.4 45.0-75.0 [facility] MarshallEndaxfzUBMNZHYOAN9345-41-38 10:17:00 Test Item Value Reference Range Interpretation Comments Lymphocytes (test code = Lymphocytes) 11.7 20.0-40.0 [facility] MarshallFopekbgLFVZAUWBVD7048-14-95 10:17:00 Test Item Value Reference Range Interpretation Comments Monocytes (test code = Monocytes) 8.0 2.0-12.0 [facility] MarshallZwzvilgRSDZTDPEND6762-38-11 10:17:00 Test Item Value Reference Range Interpretation Comments Eosinophils (test code = 0.6 See_Comment [A utomated message] The Eosinophils) system which ge nerated this result tra nsmitted reference range : <=4.0. The reference r shen was not used to int erpret this result as normal/abnormal . [facility] MarshallIdsoqvmDIBAGBBYJU6734-42-95 10:17:00 Test Item Value Reference Range Interpretation Comments Basophils (test code = 0.3 See_Comment [Aut omated message] The Basophils) system which ge nerated this result tra nsmitted reference range : <=1.0. The reference r shen was not used to int erpret this result as normal/abnormal . [facility] MarshallJjuivjvOIRETORWCE6948-14-32 10:17:00 Test Item Value Reference Range Interpretation Comments Neutrophils # (test code = Neutrophils 3.8 1.5-8.1 #) [facility] MarshallFcthqlfXWYASROVUD6418-69-12 10:17:00 Test Item Value Reference Range Interpretation Comments Lymphocytes # (test code = Lymphocytes 0.6 1.0-5.5 #) [facility] MarshallKigkeaiFLESJLWDKQ8152-27-27 10:17:00 Test Item Value Reference Range Interpretation Comments Monocytes # (test code 0.4 See_Comment [Aut omated message] The = Monocytes #) system which generated this result tra nsmitted reference range : <=0.8. The reference r shen was not used to int erpret this result as normal/abnormal . [place] 35727023-06-08 22:35:10 Test Item Value Reference Range Interpretation [...] above. Burton Pearl MD On 07/16/2022 17:34:11; [id number] [facility] GetLikemindsannCARDIAC EZJRYND7542-58-68 13:31:00 Test Item Value Reference Range Interpretation Comments HS Troponin I (test code = HS Troponin 955 I) [facility]NekkxopTGDOBJOOS9620-19-86 13:31:00 Test Item Value Reference Range Interpretation Comments HS Troponin I (test code = HS Troponin 955 I) [facility] CenterSupportPayDIAC UIOZVLE2641-21-97 10:34:00 Test Item Value Reference Range Interpretation Comments BNP (test code = BNP) 177 [facility] CenterFkkgpmqQLQYOIEYB8434-50-65 10:34:00 Test Item Value Reference Range Interpretation Comments BNP (test code = BNP) 177 [facility] CenterWoxzapdMBWCSRSHM9931-13-90 10:34:00 Test Item Value Reference Range Interpretation Comments Trig (test code = Trig) 91 [facility] CenterEcskbbvTKUNITHIO6076-17-77 10:34:00 Test Item Value Reference Range Interpretation Comments Chol (test code = Chol) 134 [facility] CenterDoncotnAZMICZFRQ7892-25-19 10:34:00 Test Item Value Reference Range Interpretation Comments HDL (test code = HDL) 63 [facility] CenterPxcwotlRSLNFXZMK6864-56-02 10:34:00 Test Item Value Reference Range Interpretation Comments Chol/HDL Ratio (test code = Chol/HDL 2.13 1 4.00-7.30 Ratio) [facility]jfksmkYMSUGVELF8151-[facility]-57 10:34:00 Test Item Value Reference Range Interpretation Comments LDL (Calculated) (test code = LDL 53 (Calculated)) [facility]WvsbpsgQSGGHIOOB0651-34-80 10:34:00 Test Item Value Reference Range Interpretation Comments VLDL (test code = VLDL) 18 1 [place] [address]-06-08 10:34:00 Test Item Value Reference Range Interpretation Comments Hgb A1C (test code = Hgb A1C) 5.3 [facility] MarshallClukewnQESTDSEQJG7077-95-46 10:34:00 Test Item Value Reference Range Interpretation Comments WBC (test code = WBC) 4.0 3.7-10.4 [facility] MarshallWnyzcfsXAZYGYIKGH0455-40-35 10:34:00 Test Item Value Reference Range Interpretation Comments RBC (test code = RBC) 4.60 4.70-6.10 [facility] MarshallTevvwznEZFDRVIRSA3370-02-51 10:34:00 Test Item Value Reference Range Interpretation Comments Hgb (test code = Hgb) 14.3 14.0-18.0 [place] 144483-06-08 10:34:00 Test Item Value Reference Range Interpretation Comments Hct (test code = Hct) 42.1 42.0-54.0 [place] 144483-06-08 10:34:00 Test Item Value Reference Range Interpretation Comments MCV (test code = MCV) 91.6 80.0-94.0 [facility] MarshallSeiqinnUQMWBMKEBO0192-50-28 10:34:00 Test Item Value Reference Range Interpretation Comments MCH (test code = MCH) 31.0 pg 27.0-31.0 [facility] MarshallQetmmsmCFESTILARW7867-87-19 10:34:00 Test Item Value Reference Range Interpretation Comments MCHC (test code = MCHC) 33.9 32.0-36.0 [place] [address]-06-08 10:34:00 Test Item Value Reference Range Interpretation Comments RDW (test code = RDW) 13.7 11.5-14.5 [facility] MarshallAyzaipoPHRBPSBHAS8048-25-72 10:34:00 Test Item Value Reference Range Interpretation Comments Platelet (test code = Platelet) 102 133-450 [facility] MarshallKfavlafTRSKQEVCQO0310-11-45 10:34:00 Test Item Value Reference Range Interpretation Comments MPV (test code = MPV) 9.0 7.4-10.4 [facility] MarshallHrcmryaYVHBFCNZGE8088-67-22 10:34:00 Test Item Value Reference Range Interpretation Comments PT (test code = PT) 14.3 s 12.0-14.7 [facility] MarshallXqfbmkcCGHGWYHJDH3176-53-19 10:34:00 Test Item Value Reference Range Interpretation Comments INR (test code = INR) 1.11 1 0.87-1.13 [facility] MarshallDckpwdbMNQMHVZLXC9432-96-03 10:34:00 Test Item Value Reference Range Interpretation Comments PTT (test code = PTT) 37.2 s 22.9-35.8 [facility] MarshallMhbgekaMIZHQPYHMG0401-82-01 10:34:00 Test Item Value Reference Range Interpretation Comments Segs (test code = Segs) 73.8 45.0-75.0 [facility] MarshallZtwmxckLDJOPIJFAZ0980-77-01 10:34:00 Test Item Value Reference Range Interpretation Comments Lymphocytes (test code = Lymphocytes) 16.0 20.0-40.0 [facility] MarshallIcpvlcjCAMNSWLJUI4294-52-55 10:34:00 Test Item Value Reference Range Interpretation Comments Monocytes (test code = Monocytes) 8.7 2.0-12.0 [facility] MarshallGsksytjVLYJCUMWDU0135-64-63 10:34:00 Test Item Value Reference Range Interpretation Comments Eosinophils (test code = 1.2 See_Comment [A utomated message] The Eosinophils) system which ge nerated this result tra nsmitted reference range : <=4.0. The reference r shen was not used to int erpret this result as normal/abnormal . [facility] MarshallIrsmfchKXWQKINAGZ4718-40-59 10:34:00 Test Item Value Reference Range Interpretation Comments Basophils (test code = 0.3 See_Comment [Aut omated message] The Basophils) system which ge nerated this result tra nsmitted reference range : <=1.0. The reference r shen was not used to int erpret this result as normal/abnormal . [facility] MarshallGukfhbzXKOYAFOGRB2281-18-73 10:34:00 Test Item Value Reference Range Interpretation Comments Neutrophils # (test code = Neutrophils 2.9 1.5-8.1 #) [facility] MarshallPsbbtmxYCYHYFPZGA9821-31-95 10:34:00 Test Item Value Reference Range Interpretation Comments Lymphocytes # (test code = Lymphocytes 0.6 1.0-5.5 #) [place] 144483-06-08 10:34:00 Test Item Value Reference Range Interpretation Comments Monocytes # (test code 0.3 See_Comment [Aut omated message] The = Monocytes #) system which generated this result tra nsmitted reference range : <=0.8. The reference r shen was not used to int erpret this result as normal/abnormal . [facility] CenterYxsmahgTYMLAM5813-70-04 10:34:00 Test Item Value Reference Range Interpretation Comments Trig (test code = Trig) 91 [facility]LnylabjAZGOCH1631-58-25 10:34:00 Test Item Value Reference Range Interpretation Comments Chol (test code = Chol) 134 [facility] HospitalWlmvimkKSRUWV7326-46-72 10:34:00 Test Item Value Reference Range Interpretation Comments HDL (test code = HDL) 63 [facility] HospitalSbqbzurWMDAPP4945-65-77 10:34:00 Test Item Value Reference Range Interpretation Comments Chol/HDL Ratio (test code = Chol/HDL 2.13 1 4.00-7.30 Ratio) [facility] HospitalRypoydnUCJCZI4020-28-20 10:34:00 Test Item Value Reference Range Interpretation Comments LDL (Calculated) (test code = LDL 53 (Calculated)) [facility] HospitalJlnmnxeFXGGJV7241-33-62 10:34:00 Test Item Value Reference Range Interpretation Comments VLDL (test code = VLDL) 18 1 [facility] YWPOXLTFY7890-17-72 10:34:00 Test Item Value Reference Range Interpretation Comments Hgb A1C (test code = Hgb A1C) 5.3 [facility] HospitalVyeocybKZZYISAUG4542-63-89 05:40:00 Test Item Value Reference Range Interpretation Comments U Amph Scr (test code Negative *NA*(07/16/22 = U Amph Scr) 12:40 AM) [facility] HospitalAbedkdlVZZKQVBCM4555-17-97 05:40:00 Test Item Value Reference Range Interpretation Comments U Stacey Scr (test code Negative *NA*(07/16/22 = U Stacey Scr) 12:40 AM) [facility] HospitalLoyrkvxDSCPXQSRO2204-20-02 05:40:00 Test Item Value Reference Range Interpretation Comments U Benzodiaz Scr (test Negative *NA*(07/16/22 code = U Benzodiaz Scr) 12:40 AM) [facility] HospitalTblodwpNOKAVHUOC2461-82-37 05:40:00 Test Item Value Reference Range Interpretation Comments U Cocaine Scr (test Negative *NA*(07/16/22 code = U Cocaine Scr) 12:40 AM) [facility] UsnvclpBBYTSYRPI9669-50-83 05:40:00 Test Item Value Reference Range Interpretation Comments U Cannab Scr (test Positive *ABN*(07/16/22 code = U Cannab Scr) 12:40 AM) [facility] HieaopoUMVZUIBND4228-89-54 05:40:00 Test Item Value Reference Range Interpretation Comments U Opiate Scr (test Negative *NA*(07/16/22 code = U Opiate Scr) 12:40 AM) [facility] BrgfhhrBTXFGWKEJ8539-10-00 05:40:00 Test Item Value Reference Range Interpretation Comments U Phencyclidine Scr (test Negative *NA*(07/16/22 code = U Phencyclidine 12:40 AM) Scr) [facility] ReueilbBCONXNQEE4209-62-48 05:40:00 Test Item Value Reference Range Interpretation Comments UDS Note (test code = See Note 3(07/16/22 12:40 UDS Note) AM) [facility] IWIDPF8344-74-73 05:40:00 Test Item Value Reference Range Interpretation Comments U Amph Scr (test code Negative *NA*(07/16/22 = U Amph Scr) 12:40 AM) [facility] OGEQJN8032-41-96 05:40:00 Test Item Value Reference Range Interpretation Comments U Stacey Scr (test code Negative *NA*(07/16/22 = U Stacey Scr) 12:40 AM) [facility] ZPMWKX3769-56-22 05:40:00 Test Item Value Reference Range Interpretation Comments U Benzodiaz Scr (test Negative *NA*(07/16/22 code = U Benzodiaz Scr) 12:40 AM) [facility] PTOMPX4919-87-18 05:40:00 Test Item Value Reference Range Interpretation Comments U Cocaine Scr (test Negative *NA*(07/16/22 code = U Cocaine Scr) 12:40 AM) [facility] DGHEVT5701-68-76 05:40:00 Test Item Value Reference Range Interpretation Comments U Cannab Scr (test Positive *ABN*(07/16/22 code = U Cannab Scr) 12:40 AM) [facility] [id number] 05:40:00 Test Item Value Reference Range Interpretation Comments U Opiate Scr (test Negative *NA*(07/16/22 code = U Opiate Scr) 12:40 AM) [id number] 05:40:00 Test Item Value Reference Range Interpretation Comments U Phencyclidine Scr (test Negative *NA*(07/16/22 code = U Phencyclidine 12:40 AM) Scr) [facility] [id number] 05:40:00 Test Item Value Reference Range Interpretation Comments UDS Note (test code = See Note 5(07/16/22 12:40 UDS Note) AM) [facility] H[id number] 05:38:00 Test Item Value Reference Range Interpretation Comments Coronavirus (COVID-19) Not Detected DIVYA (test code = 17(07/16/22 12:38 AM) Coronavirus (COVID-19) DIVYA) [facility] [id number] 03:58:00 Test Item Value Reference Range Interpretation Comments HS Troponin I (test code = HS Troponin 986 I) [facility] [id number] 00:20:13 Test Item Value Reference Range Interpretation Comments TROPONIN I (test code = 0.057 ng/mL <=0.034 H [id number]) CLAUDIA (test code = CLAUDIA) Reference (Normal) [...] biotin. Lab Interpretation Abnormal (test code = 90797-0) [facility]2022-07-13 00:01:50 Test Item Value Reference Range Interpretation Comments APTT Patient (test code 42 See_Comment H [Au tomated message] = 9923-2) The system OVGuide generated this result transmitted ref erence range: 26 - 36 Seconds. The reference range was not used to int erpret this result as normal/abnormal . Lab Interpretation (test Abnormal code = 02691-2) [facility] [id number] 16:15:56 Test Item Value Reference Range Interpretation Comments TROPONIN I (test code = 0.087 ng/mL <=0.034 H [id number]) CLAUDIA (test code = CLAUDIA) Reference (Normal) [...] biotin. Lab Interpretation Abnormal (test code = 99265-7) [facility]2022-07-12 13:46:54 Test Item Value Reference Range Interpretation Comments POCT GLU (test code = 5933585336) 100 mg/dL 70-110 Lab Interpretation (test code = Normal 74769-6) [facility] [id number] 03:20:51 Test Item Value Reference Range Interpretation Comments TROPONIN I (test code = 0.081 ng/mL <=0.034 H [id number]) CLAUDIA (test code = CLAUDIA) Reference (Normal) [...] biotin. Lab Interpretation Abnormal (test code = 87665-2) [facility] CenterProthrombin Time / [id number] 03:04:49 Test Item Value Reference Range Interpretation Comments PROTIME PATIENT (test 12.0 See_Comment [Auto mated message] code = 5964-2) The system ZarthCode generated this result transmitted ref erence range: 10.1 - 1 2.6 Seconds. The re ference range was not u sed to interpret this result as normal/abnor mal. INR (test code = 6301-6) 1.1 Nor mal INR <1.1; Warfarin Therap eutic range 2.0 to 3. 0 or 2.5 to 3.5, dep ending upon the indica tions. Lab Interpretation (test Normal code = 17409-3) [facility]eraPTT20[facility] 03:04:49 Test Item Value Reference Range Interpretation Comments APTT Patient (test code = 34 See_Comment [ Automated message] 3173-2) The system OVGuide generated this result transmitted ref erence range: 26 - 36 Seconds. The re ference range was not u sed to interpret this result as normal/abnor mal. Lab Interpretation (test Normal code = 62197-9) [facility] CenterThyroid Stimulating Hormone (TSH)2022-07-12 01:31:26 Test Item Value Reference Range Interpretation Comments TSH (test code = 1.59 See_Comment Biotin has been [id number]) reported to cau se a negative bias, interpret resul ts relative to pat carine's use of biotin. [Automated mess age] The system OVGuide generated this result transmitted ref erence range: 0.45 - 4 .70 mIU/L. The refe rence range was not u sed to interpret this result as normal/abnor mal. Lab Interpretation (test Normal code = 85201-5) [facility] CenterGLYCOSYLATED HEMOGLOBIN (A1C)2022-07-12 01:17:12 Test Item Value Reference Range Interpretation Comments HGB A1C (test code = 5.3 % 4.0-5.7 4548-4) CLAUDIA (test code = CLAUDIA) Reference RangesNormal: <5.7%Prediabetes: 5.7 - 6.4%Diabetes: > 6.5% Lab Interpretation (test Normal code = 90931-5) [facility] CenterTROPONIN [id number] 23:31:20 Test Item Value Reference Range Interpretation Comments TROPONIN I (test code = 0.086 ng/mL <=0.034 H [id number]) CLAUDIA (test code = CLAUDIA) Reference (Normal) [...] biotin. Lab Interpretation Abnormal (test code = 00778-1) [facility] CenterTROP[facility]IN [id number] 20:07:32 Test Item Value Reference Range Interpretation Comments TROPONIN I (test code = 0.072 ng/mL <=0.034 H 5320340933) CLAUDIA (test code = CLAUDIA) Reference (Normal) [...] biotin. Lab Interpretation Abnormal (test code = 57590-7) [facility] CenterCOMP. METABOLIC PANEL (89275)2022-07-11 19:57:13 Test Item Value Reference Range Interpretation Comments NA (test code = 139 mmol/L 135-145 5107706715) K (test code = 4.2 mmol/L 3.5-5.0 0568783352) CL (test code = 102 mmol/L 98-108 7876302500) CO2 TOTAL (test code = 28 mmol/L 23-31 3027591496) AGAP (test code = 9 2-16 3045045317) BUN (test code = 23 mg/dL 7-23 5765258723) GLUCOSE (test code = 104 mg/dL 70-110 1846899773) CREATININE (test code = 0.99 mg/dL 0.60-1.25 6160588257) TOTAL BILI (test code = 0.9 mg/dL 0.1-1.0 6433264580) CALCIUM (test code = 9.0 mg/dL 8.6-10.6 8685747425) T PROTEIN (test code = 6.7 g/dL 6.3-8.2 5818716115) ALBUMIN (test code = 4.3 g/dL 3.5-5.0 6399659012) ALK PHOS (test code = 58 U/L 34-122 3709847877) ALTv (test code = 22 U/L 5-50 2-6) AST(SGOT) (test code = 43 U/L 13-40 H 5142693262) eGFR (test code = 74.5 mL/min/1.73m2 3573555695) CLAUDIA (test code = CLAUDIA) Association of [...] tests). Lab Interpretation Abnormal (test code = 86870-5) [facility] CenterLIPASE2023-06-03 19:57:13 Test Item Value Reference Range Interpretation Comments LIPASE (test code = 1035907439) 91 U/L 0-220 Lab Interpretation (test code = Normal 75414-1) [facility] CenterCBC WITH [id number] 19:42:51 Test Item Value Reference Range Interpretation Comments WBC (test code = 4.08 See_Comment L [Automated 7490-2) message] The sy stem which generated this result transmitted reference range : 4.20 - 10.70 10*3/?L. The reference range was not used to interpret this result as normal/abnormal . RBC (test code = 4.75 See_Comment [Automated 749-8) message] The sy stem which generated this [...] RDW-SD (test code = 41.6 fL 38.5-51.6 33525-2) RDW-CV (test code = 12.7 % 12.1-15.4 788-0) PLT (test code = 106 See_Comment L [Automated 777-3) message] The sy stem which generated this result transmitted reference range : 150 - 328 10*3/ ?L. The reference r shen was not used to interpret this result as normal/abnormal . MPV (test code = 10.9 fL 9.8-13.0 40332-6) NRBC/100 WBC (test 0.0 See_Comment [Automat ed code = 3119738661) message] The system which generated this result transmitted reference range : 0.0 - 10.0 /100 WBCs. The refer ence range was not u sed to interpret th is result as normal/abnormal . NRBC x10^3 (test code See_Comment [Auto mated = 6054624316) message] The s ystem which generated this result transmitted reference range : 10*3/?L. The reference range was not used to interpret this result as normal/abnormal . GRAN MAT (NEUT) % 74.1 % (test code = 770-8) IMM GRAN % (test code 0.20 % = 2307172466) LYMPH % (test code = 15.4 % 736-9) MONO % (test code = 9.1 % 5905-5) EOS % (test code = 1.0 % 713-8) BASO % (test code = 0.2 % 706-2) GRAN MAT x10^3(ANC) 3.02 10*3/uL 1.99-6.95 (test code = 7787621919) IMM GRAN x10^3 (test 0.00-0.06 code = 0753155355) LYMPH x10^3 (test code 0.63 10*3/uL 1.09-3.23 L = 731-0) MONO x10^3 (test code 0.37 10*3/uL 0.36-1.02 = 742-7) EOS x10^3 (test code = 0.04 10*3/uL 0.06-0.53 L 711-2) BASO x10^3 (test code 0.01-0.09 = 704-7) Lab Interpretation Abnormal (test code = 85119-1) [facility] URINALYSIS W SPECIFIC [id number] 16:32:00 Test Item Value Reference Range Interpretation [...] 3267) Lab Interpretation (test code Normal = 44626-3) [facility] URINALYSIS W SPECIFIC [id number] 16:32:00 Test Item Value Reference Range Interpretation [...] 3267) Lab Interpretation (test code Normal = 98152-9) [facility] GLUCOSE (AUTOMATED)2022-05-02 13:41:42 Test Item Value Reference Range Interpretation Comments POCT GLU (test code = 2874059661) 96 mg/dL 70-110 Lab Interpretation (test code = Normal 89484-4) [facility] GLUCOSE (AUTOMATED)2022-05-02 13:41:42 Test Item Value Reference Range Interpretation Comments POCT GLU (test code = 6280822447) 96 mg/dL 70-110 Lab Interpretation (test code = Normal 91675-5) [facility] GLUCOSE (AUTOMATED)2022-05-02 13:41:42 Test Item Value Reference Range Interpretation Comments POCT GLU (test code = 5003552106) 96 mg/dL 70-110 Lab Interpretation (test code = Normal 56353-6) [facility] CenterRADRPT2022-[facility]-08 01:04:23 Test Item Value Reference Range Interpretation [...] the patient's abnormal labs.2. Limitations as above. [facility] WITH [id number] 05:21:51 Test Item Value Reference Range Interpretation Comments WBC (test code = See_Comment L [Automated 6690-2) message] The Gro stem which generated this result transmitted reference [...] RDW-SD (test code = 45.1 fL 38.5-51.6 61651-1) RDW-CV (test code = 13.3 % 12.1-15.4 788-0) PLT (test code = See_Comment L [Automated 777-3) message] The sy stem which generated this result transmitted reference range : 150 - 328 10*3/ ?L. The reference r shen was not used to interpret this result as normal/abnormal . MPV (test code = 12.4 fL 9.8-13 00218-0) NRBC/100 WBC (test See_Comment [Automat ed code = 1483846148) message] The system which generated this result transmitted reference range : 0.0 - 10.0 /100 WBCs. The refer ence range was not u sed to interpret th is result as normal/abnormal . NRBC x10^3 (test code See_Comment [Auto mated = 2382000089) message] The s ystem which generated this result transmitted reference range : 10*3/?L. The reference range was not used to interpret this result as normal/abnormal . GRAN MAT (NEUT) % 72.7 % (test code = 770-8) IMM GRAN % (test code 0.30 % = 6585237105) LYMPH % (test code = 17.5 % 736-9) MONO % (test code = 8.2 % 5905-5) EOS % (test code = 1.0 % 713-8) BASO % (test code = 0.3 % 706-2) GRAN MAT x10^3(ANC) 2.83 10*3/uL 1.99-6.95 (test code = 4894940507) IMM GRAN x10^3 (test 0-0.06 code = 8853439164) LYMPH x10^3 (test code 0.68 10*3/uL 1.09-3.23 L = 731-0) MONO x10^3 (test code 0.32 10*3/uL 0.36-1.02 L = 742-7) EOS x10^3 (test code = 0.04 10*3/uL 0.06-0.53 L 711-2) BASO x10^3 (test code 0.01-0.09 = 704-7) Lab Interpretation Abnormal (test code = 47262-6) [facility] WITH [id number] 05:21:51 Test Item Value Reference Range Interpretation Comments WBC (test code = See_Comment L [Automated 6690-2) message] The sy stem which generated this result transmitted reference range : 4.20 - 10.70 10*3/?L. The reference range was not used to interpret this result as normal/abnormal . RBC (test code = See_Comment [Automated 379-8) message] The sy stem which generated this [...] RDW-SD (test code = 45.1 fL 38.5-51.6 49283-7) RDW-CV (test code = 13.3 % 12.1-15.4 788-0) PLT (test code = See_Comment L [Automated 777-3) message] The sy stem which generated this result transmitted reference range : 150 - 328 10*3/ ?L. The reference r shen was not used to interpret this result as normal/abnormal . MPV (test code = 12.4 fL 9.8-13 90858-3) NRBC/100 WBC (test See_Comment [Automat ed code = 9420762803) message] The system which generated this result transmitted reference range : 0.0 - 10.0 /100 WBCs. The refer ence range was not u sed to interpret th is result as normal/abnormal . NRBC x10^3 (test code See_Comment [Auto mated = 5407576267) message] The s ystem which generated this result transmitted reference range : 10*3/?L. The reference range was not used to interpret this result as normal/abnormal . GRAN MAT (NEUT) % 72.7 % (test code = 770-8) IMM GRAN % (test code 0.30 % = 9118793901) LYMPH % (test code = 17.5 % 736-9) MONO % (test code = 8.2 % 5905-5) EOS % (test code = 1.0 % 713-8) BASO % (test code = 0.3 % 706-2) GRAN MAT x10^3(ANC) 2.83 10*3/uL 1.99-6.95 (test code = 0898697221) IMM GRAN x10^3 (test 0-0.06 code = 9472931910) LYMPH x10^3 (test code 0.68 10*3/uL 1.09-3.23 L = 731-0) MONO x10^3 (test code 0.32 10*3/uL 0.36-1.02 L = 742-7) EOS x10^3 (test code = 0.04 10*3/uL 0.06-0.53 L 711-2) BASO x10^3 (test code 0.01-0.09 = 704-7) Lab Interpretation Abnormal (test code = 04318-3) [facility] [id number] 11:45:00 Test Item Value Reference Range Interpretation Comments POC-GLUCOSE METER 138 mg/dL 70-110 H TESTED AT [place] [address] ([facility]) (test code = BRISSA Estrada [place] 1538) [address] POCT-GLUCOSE [id number] 06:18:00 Test Item Value Reference Range Interpretation Comments POC-GLUCOSE METER 127 mg/dL 70-110 H TESTED AT [place] [address] ([facility]) (test code = BRISSA Estrada [place] 1538) [address] POCT-GLUCOSE [id number] 00:19:00 Test Item Value Reference Range Interpretation Comments POC-GLUCOSE METER 124 mg/dL 70-110 H TESTED AT [place] [address] ([facility]) (test code = BRISSA Estrada [place] 1538) [address] POCT-GLUCOSE [id number] 15:26:00 Test Item Value Reference Range Interpretation Comments POC-GLUCOSE METER 113 mg/dL 70-110 H TESTED AT [place] [address] ([facility]) (test code = BRISSA Estrada [place] 1538) 90[address] POCT-GLUCOSE [id number] 10:30:00 Test Item Value Reference Range Interpretation Comments POC-GLUCOSE METER 134 mg/dL 70-110 H TESTED AT [place] [address] ([facility]) (test code = BRISSA Estrada [place] 1538) 14[address] POCT-GLUCOSE [id number] 06:25:00 Test Item Value Reference Range Interpretation Comments POC-GLUCOSE METER 120 mg/dL 70-110 H TESTED AT [place] [address] ([facility]) (test code = BRISSA Estrada [place] 1538) [address] POCT-GLUCOSE [id number] 01:12:00 Test Item Value Reference Range Interpretation Comments POC-GLUCOSE METER 122 mg/dL 70-110 H TESTED AT [place] [address] ([facility]) (test code = BRISSA Estrada [place] 1538) [address] POCT-GLUCOSE [id number] 18:32:00 Test Item Value Reference Range Interpretation Comments POC-GLUCOSE METER 129 mg/dL 70-110 H TESTED AT [place] [address] ([facility]) (test code = BRISSA Estrada [place] 1538) [address] POCT-GLUCOSE [id number] 12:10:00 Test Item Value Reference Range Interpretation Comments POC-GLUCOSE METER 125 mg/dL 70-110 H TESTED AT [place] [address] ([facility]) (test code = [facility] 1538) 38989 POCT-GLUCOSE [id number] 05:50:00 Test Item Value Reference Range Interpretation Comments POC-GLUCOSE METER 115 mg/dL 70-110 H TESTED AT [place] [address] ([facility]) (test code = [facility] 1538) 11563 POCT-GLUCOSE [id number] 23:18:00 Test Item Value Reference Range Interpretation Comments POC-GLUCOSE METER 117 mg/dL 70-110 H TESTED AT [place] [address] ([facility]) (test code = [facility] 1538) [address]107 POCT-GLUCOSE [id number] 16:33:00 Test Item Value Reference Range Interpretation Comments POC-GLUCOSE METER 124 mg/dL 70-110 H TESTED AT [place] [address] ([facility]) (test code = [facility] 1538) 23492 POCT-GLUCOSE [id number] 11:48:00 Test Item Value Reference Range Interpretation Comments POC-GLUCOSE METER 147 mg/dL 70-110 H TESTED AT [place] [address] ([facility]) (test code = [facility] 1538) [address] BASIC METABOLIC [id number] 07:27:00 Test Item Value Reference Range Interpretation [...] PATIEN TS. CBC W/PLT COUNT & AUTO [id number] 06:26:00 Test Item Value Reference Range Interpretation [...] 417) IMMATURE GRANULOCYTES-RELATIVE 0 % 0-1 PERCENT ([facility]) (test code = 2801) POCT-GLUCOSE [id number] 06:10:00 Test Item Value Reference Range Interpretation Comments POC-GLUCOSE METER 126 mg/dL 70-110 H TESTED AT [place] [address] ([facility]) (test code = BRISSA Estr[place] 1538) 148[address] POCT-GLUCOSE [id number] 23:53:00 Test Item Value Reference Range Interpretation Comments POC-GLUCOSE METER 126 mg/dL 70-110 H TESTED AT [place] [address] ([facility]) (test code = BRISSA Estr[place] 1538) 80697 POCT-GLUCOSE [id number] 16:56:00 Test Item Value Reference Range Interpretation Comments POC-GLUCOSE METER 92 mg/dL 70-110 TESTED AT [place] [address] ([facility]) (test code = [place] [address] 1538) POCT-GLUCOSE [id number] 11:37:00 Test Item Value Reference Range Interpretation Comments POC-GLUCOSE METER 129 mg/dL 70-110 H TESTED AT [place] [address] ([facility]) (test code = BRISSA Estrada [place] 1538) [address]707 POCT-GLUCOSE [id number] 06:50:00 Test Item Value Reference Range Interpretation Comments POC-GLUCOSE METER 137 mg/dL 70-110 H TESTED AT [place] [address] ([facility]) (test code = BR[place] [address]) 35408 POCT-GLUCOSE [id number] 00:48:00 Test Item Value Reference Range Interpretation Comments POC-GLUCOSE METER 120 mg/dL 70-110 H TESTED AT [place] [address] ([facility]) (test code = BRISSA Estr[place] 1538) 15262 POCT-GLUCOSE [id number] 17:06:00 Test Item Value Reference Range Interpretation Comments POC-GLUCOSE METER 114 mg/dL 70-110 H TESTED AT [place] [address] ([facility]) (test code = BRISSA Estr[place] 1538) 81191 POCT-GLUCOSE [id number] 11:30:00 Test Item Value Reference Range Interpretation Comments POC-GLUCOSE METER 122 mg/dL 70-110 H TESTED AT [place] [address] ([facility]) (test code = BRISSA Estr[place] 1538) [address]45 POCT-GLUCOSE [id number] 06:30:00 Test Item Value Reference Range Interpretation Comments POC-GLUCOSE METER 109 mg/dL 70-110 TESTED AT [place] [address] ([facility]) (test code = BRISSA Estr[place] 1538) 20934 POCT-GLUCOSE [id number] 02:39:00 Test Item Value Reference Range Interpretation Comments POC-GLUCOSE METER 122 mg/dL 70-110 H TESTED AT [place] [address] ([facility]) (test code = BRISSA [place] 1538) 85684 POCT-GLUCOSE [id number] 16:32:00 Test Item Value Reference Range Interpretation Comments POC-GLUCOSE METER 119 mg/dL 70-110 H TESTED AT [place] [address] ([facility]) (test code = BRISSA [place]str[place] 1538) 6[address] POCT-GLUCOSE [id number] 06:25:00 Test Item Value Reference Range Interpretation Comments POC-GLUCOSE METER 110 mg/dL 70-110 TESTED AT [place] [address] ([facility]) (test code = BRISSA [place] 1538) [address] POCT-GLUCOSE [id number] 00:07:00 Test Item Value Reference Range Interpretation Comments POC-GLUCOSE METER 132 mg/dL 70-110 H TESTED AT [place] [address] ([facility]) (test code = BRISSA [place] 1538) [address] POCT-GLUCOSE [id number] 17:25:00 Test Item Value Reference Range Interpretation Comments POC-GLUCOSE METER 147 mg/dL 70-110 H TESTED AT [place] [address] ([facility]) (test code = BRISSA [place] 1538) 19957 POCT-GLUCOSE [id number] 12:26:00 Test Item Value Reference Range Interpretation Comments POC-GLUCOSE METER 188 mg/dL 70-110 H TESTED AT [place] [address] ([facility]) (test code = BRISSA Estr[place] 1538) [address]85 POCT-GLUCOSE [id number] 06:28:00 Test Item Value Reference Range Interpretation Comments POC-GLUCOSE METER 107 mg/dL 70-110 TESTED AT [place] [address] ([facility]) (test code = MANISHVAN Sean [place] 1538) 36372 POCT-GLUCOSE [id number] 23:53:00 Test Item Value Reference Range Interpretation Comments POC-GLUCOSE METER 143 mg/dL 70-110 H TESTED AT [place] [address] ([facility]) (test code = BRISSA Estrada [place] 1538) 97441 POCT-GLUCOSE [id number] 17:13:00 Test Item Value Reference Range Interpretation Comments POC-GLUCOSE METER 180 mg/dL 70-110 H TESTED AT [place] [address] ([facility]) (test code = BRISSA Estrada [place] 1538) [address] FL, ESOPH, SWALLOW FUNCTION, WITH CINE OR [id number] 15:39:00Reason for exam:->dysphagiaFINAL REPORT Modified barium swallow Reason for examination: dysphagia TECHNIQUE: Fluoroscopy provided. RADIATION DOSE: Fluoroscopy Time: 1.17 min Dose (Kerma) Area Product: 1894.6qSwoc6 Air Kerma (AK) value has been reviewed. It is below the limits set by the Radiation Protocol Committee (RPC) committee. DISCUSSION: Initial ski topper view of the chest shows no acute [...] Verified Date/Time: 10/06/2018 15:39:34 Reading Location: [facility] Room [address] [place] [address] POCT-GLUCOSE [id number] 05:51:00 Test Item Value Reference Range Interpretation Comments POC-GLUCOSE METER 111 mg/dL 70-110 H TESTED AT [place] [address] ([facility]) (test code = BRISSA Estrada [facility] 1538) 29340 POCT-GLUCOSE [id number] 23:49:00 Test Item Value Reference Range Interpretation Comments POC-GLUCOSE METER 169 mg/dL 70-110 H TESTED AT [place] [address] ([facility]) (test code = BRISSA Estrada [facility] 1538) 64771 POCT-GLUCOSE [id number] 17:11:00 Test Item Value Reference Range Interpretation Comments POC-GLUCOSE METER 182 mg/dL 70-110 H TESTED AT [place] [address] ([facility]) (test code = BRISSA [place]str[place] 1538) [address]89 POCT-GLUCOSE [id number] 12:14:00 Test Item Value Reference Range Interpretation Comments POC-GLUCOSE METER 162 mg/dL 70-110 H TESTED AT [place] [address] ([facility]) (test code = BRISSA [place] 1538) [address]45 POCT-GLUCOSE [id number] 06:32:00 Test Item Value Reference Range Interpretation Comments POC-GLUCOSE METER 122 mg/dL 70-110 H TESTED AT [place] [address] ([facility]) (test code = BRISSA [place]str[place] 1538) 58025 POCT-GLUCOSE [id number] 23:30:00 Test Item Value Reference Range Interpretation Comments POC-GLUCOSE METER 133 mg/dL 70-110 H TESTED AT [place] [address] ([facility]) (test code = BRISSA [place]str[place] 1538) [address] POCT-GLUCOSE [id number] 16:43:00 Test Item Value Reference Range Interpretation Comments POC-GLUCOSE METER 180 mg/dL 70-110 H TESTED AT [place] [address] ([facility]) (test code = BRISSA [place]strada [place] 1538) 47607 POCT-GLUCOSE [id number] 12:06:00 Test Item Value Reference Range Interpretation Comments POC-GLUCOSE METER 185 mg/dL 70-110 H TESTED AT [place] [address] ([facility]) (test code = BRISSA [place] 1538) [address]20 POCT-GLUCOSE [id number] 06:37:00 Test Item Value Reference Range Interpretation Comments POC-GLUCOSE METER 128 mg/dL 70-110 H TESTED AT [place] [address] ([facility]) (test code = BRISSA [place]str[place] 1538) 95166 POCT-GLUCOSE [id number] 00:37:00 Test Item Value Reference Range Interpretation Comments POC-GLUCOSE METER 138 mg/dL 70-110 H TESTED AT [place] [address] ([facility]) (test code = BRISSA Estrada [place] 1538) [id number] POCT-GLUCOSE [id number] 16:37:00 Test Item Value Reference Range Interpretation Comments POC-GLUCOSE METER 166 mg/dL 70-110 H TESTED AT [place] [address] (BEAKER) (test code = BRISSA Estrada [facility] 1538) [id number] POCT-GLUCOSE [id number] 11:53:00 Test Item Value Reference Range Interpretation Comments POC-GLUCOSE METER 182 mg/dL 70-110 H TESTED AT [place] [address] (BEAKER) (test code = BRISSA Estrada [facility] 1538) [id number] POCT-GLUCOSE [id number] 06:23:00 Test Item Value Reference Range Interpretation Comments POC-GLUCOSE METER 109 mg/dL 70-110 TESTED AT [place] [address] (BEAKER) (test code = [facility] Sean [facility] 1538) 75[address] BASIC METABOLIC [id number] 05:27:00 Test Item Value Reference Range Interpretation [...] PATIEN TS. CBC W/PLT COUNT & AUTO [id number] 04:54:00 Test Item Value Reference Range Interpretation [...] PERCENT (BEAKER) (test code = 2801) POCT-GLUCOSE [id number] 01:27:00 Test Item Value Reference Range Interpretation Comments POC-GLUCOSE METER 122 mg/dL 70-110 H TESTED AT [facility] 6720 (BEAKER) (test code = BRISSA GILMAN 1538) 66034 POCT-GLUCOSE [id number] 16:45:00 Test Item Value Reference Range Interpretation Comments POC-GLUCOSE METER 197 mg/dL 70-110 H TESTED AT [place] [address] ([facility]) (test code = BRISSA Estrada [place] 1538) [address] POCT-GLUCOSE [id number] 12:19:00 Test Item Value Reference Range Interpretation Comments POC-GLUCOSE METER 186 mg/dL 70-110 H TESTED AT [place] [address] ([facility]) (test code = [place]ISHVAN [place] 1538) 44685 POCT-GLUCOSE [id number] 06:06:00 Test Item Value Reference Range Interpretation Comments POC-GLUCOSE METER 123 mg/dL 70-110 H TESTED AT [place] [address] ([facility]) (test code = MANISHVAN Sean [place] 1538) 13539 POCT-GLUCOSE [id number] 00:23:00 Test Item Value Reference Range Interpretation Comments POC-GLUCOSE METER 111 mg/dL 70-110 H TESTED AT [place] [address] ([facility]) (test code = MANISHVAN [place] 1538) 748[address] POCT-GLUCOSE [id number] 16:33:00 Test Item Value Reference Range Interpretation Comments POC-GLUCOSE METER 220 mg/dL 70-110 H TESTED AT [place] [address] ([facility]) (test code = MANISHVAN Estrada [place] 1538) 68682 POCT-GLUCOSE [id number] 12:05:00 Test Item Value Reference Range Interpretation Comments POC-GLUCOSE METER 197 mg/dL 70-110 H TESTED AT [place] [address] ([facility]) (test code = MANIHSVAN Estrada [place] 1538) 47[address] URIC [id number] 08:32:00 Test Item Value Reference Range Interpretation Comments URIC ACID ([facility]) (test code = 9.8 mg/dL 2.6-7.2 H 773) POCT-GLUCOSE [id number] 06:39:00 Test Item Value Reference Range Interpretation Comments POC-GLUCOSE METER 140 mg/dL 70-110 H TESTED AT [place] [address] ([facility]) (test code = MANISHVAN Estrada [place] 1538) 43999 POCT-GLUCOSE [id number] 23:49:00 Test Item Value Reference Range Interpretation Comments POC-GLUCOSE METER 162 mg/dL 70-110 H TESTED AT [place] [address] ([facility]) (test code = BRISSA Estrada [facility] 1538) 83163 POCT-GLUCOSE [id number] 16:38:00 Test Item Value Reference Range Interpretation Comments POC-GLUCOSE METER 196 mg/dL 70-110 H TESTED AT [facility] 6720 (BEAKER) (test code = BRISSA Estrada [facility] 1538) 13912 POCT-GLUCOSE [id number] 12:21:00 Test Item Value Reference Range Interpretation Comments POC-GLUCOSE METER 255 mg/dL 70-110 H TESTED AT [place] [address] (BEAKER) (test code = BRISSA Estrada [facility] 1538) 24536 BASIC METABOLIC [id number] 06:27:00 Test Item Value Reference Range Interpretation [...] NOT APPLICABLE FOR DIALYSIS PATIEN TS. POCT-GLUCOSE [id number] 05:57:00 Test Item Value Reference Range Interpretation Comments POC-GLUCOSE METER 131 mg/dL 70-110 H TESTED AT [facility] 6720 (BEAKER) (test code = BRISSA Estrada [facility] 1538) 86341 POCT-GLUCOSE [id number] 00:03:00 Test Item Value Reference Range Interpretation Comments POC-GLUCOSE METER 151 mg/dL 70-110 H TESTED AT [facility] 6720 (BEAKER) (test code = [facility] Sean [facility] 1538) 08771 POCT-GLUCOSE [id number] 17:07:00 Test Item Value Reference Range Interpretation Comments POC-GLUCOSE METER 180 mg/dL 70-110 H TESTED AT [place] [address] [facility] (test code = BRISSA [place]strada [place] 1538) 8[address] POCT-GLUCOSE [id number] 11:26:00 Test Item Value Reference Range Interpretation Comments POC-GLUCOSE METER 172 mg/dL 70-110 H TESTED AT [place] [address] [facility] (test code = BRISSA Estrada [facility] 1538) 32986 POCT-GLUCOSE [id number] 06:29:00 Test Item Value Reference Range Interpretation Comments POC-GLUCOSE METER 166 mg/dL 70-110 H TESTED AT [place] [address] [facility] (test code = [facility] Sean [facility] 1538) 70063 BASIC METABOLIC [id number] 06:02:00 Test Item Value Reference Range Interpretation [...] NOT APPLICABLE FOR DIALYSIS PATIEN TS. POCT-GLUCOSE [id number] 23:57:00 Test Item Value Reference Range Interpretation Comments POC-GLUCOSE METER 175 mg/dL 70-110 H TESTED AT [place] [address] ([facility] (test code = BRISSA Estrada [facility] 1538) 51545 POCT-GLUCOSE [id number] 18:14:00 Test Item Value Reference Range Interpretation Comments POC-GLUCOSE METER 208 mg/dL 70-110 H TESTED AT [facility] 6720 (BEAKER) (test code = BRISSA Estrada [facility] 1538) 61739 POCT-GLUCOSE [id number] 12:04:00 Test Item Value Reference Range Interpretation Comments POC-GLUCOSE METER 184 mg/dL 70-110 H TESTED AT [facility] 6720 (BEAKER) (test code = [facility] Sean [facility] 1538) 54169 BASIC METABOLIC [id number] 07:35:00 Test Item Value Reference Range Interpretation [...] 697) EGFR (BEAKER) (test 53 mL/min/1.73 ESTIMA ELVA GFR IS code = 1092) sq m NOT ACCURATE CREATININE CLEARANCE IN PREDICTING GLOMERULAR FILTRATION RATE . ESTIMATED GFR I S NOT APPLICABLE FOR DIALYSIS PATIEN TS. POCT-GLUCOSE [id number] 06:18:00 Test Item Value Reference Range Interpretation Comments POC-GLUCOSE METER 176 mg/dL 70-110 H TESTED AT [facility] 6720 (BEAKER) (test code = [facility] 1538) 11327 POCT-GLUCOSE [id number] 23:54:00 Test Item Value Reference Range Interpretation Comments POC-GLUCOSE METER 137 mg/dL 70-110 H TESTED AT [facility] 6720 (BEAKER) (test code = [facility] 1538) 60587 POCT-GLUCOSE [id number] 17:44:00 Test Item Value Reference Range Interpretation Comments POC-GLUCOSE METER 205 mg/dL 70-110 H TESTED AT [place] [address] (BEAKER) (test code = BRISSA Estrada [place] 1538) 27126 POCT-GLUCOSE [id number] 12:33:00 Test Item Value Reference Range Interpretation Comments POC-GLUCOSE METER 199 mg/dL 70-110 H TESTED AT [place] [address] (BEAKER) (test code = BRISSA Estrada [facility] 1538) 97056 POCT-GLUCOSE [id number] 06:23:00 Test Item Value Reference Range Interpretation Comments POC-GLUCOSE METER 132 mg/dL 70-110 H TESTED AT [place] [address] (BEAKER) (test code = [facility] Sean [facility] 1538) 79227 BASIC METABOLIC [id number] 06:21:00 Test Item Value Reference Range Interpretation [...] NOT APPLICABLE FOR DIALYSIS PATIEN TS. POCT-GLUCOSE [id number] 00:04:00 Test Item Value Reference Range Interpretation Comments POC-GLUCOSE METER 145 mg/dL 70-110 H TESTED AT [facility] 6720 (BEAKER) (test code = BRISSA Estrada [place] 1538) 57735 POCT-GLUCOSE [id number] 18:21:00 Test Item Value Reference Range Interpretation Comments POC-GLUCOSE METER 156 mg/dL 70-110 H TESTED AT [facility] 6720 (BEAKER) (test code = BRISSA Estrada [place] 1538) 52936 POCT-GLUCOSE [id number] 12:17:00 Test Item Value Reference Range Interpretation Comments POC-GLUCOSE METER 231 mg/dL 70-110 H TESTED AT [facility] 6720 (BEAKER) (test code = BRISSA Estrada [place] 1538) 32532 POCT-GLUCOSE [id number] 06:42:00 Test Item Value Reference Range Interpretation Comments POC-GLUCOSE METER 150 mg/dL 70-110 H TESTED AT [facility] 6720 (BEAKER) (test code = BRISSA Estrada [place] 1538) 069[address] BASIC METABOLIC [id number] 06:09:00 Test Item Value Reference Range Interpretation [...] PATIEN TS. CBC W/PLT COUNT & AUTO [id number] 06:04:00 Test Item Value Reference Range Interpretation [...] PERCENT (BEAKER) (test code = 2801) POCT-GLUCOSE [id number] 01:27:00 Test Item Value Reference Range Interpretation Comments POC-GLUCOSE METER 160 mg/dL 70-110 H TESTED AT [facility] 6720 (BEAKER) (test code = BR[place]SA [place] 1538) 43859 POCT-GLUCOSE [id number] 17:36:00 Test Item Value Reference Range Interpretation Comments POC-GLUCOSE METER 187 mg/dL 70-110 H TESTED AT [place] [address] ([facility]) (test code = BRISSA Estrada [place] 1538) 83351 POCT-GLUCOSE [id number] 12:14:00 Test Item Value Reference Range Interpretation Comments POC-GLUCOSE METER 217 mg/dL 70-110 H TESTED AT [place] [address] ([facility]) (test code = BRISSA Estrada [place] 1538) 45955 POCT-GLUCOSE [id number] 05:56:00 Test Item Value Reference Range Interpretation Comments POC-GLUCOSE METER 130 mg/dL 70-110 H TESTED AT [place] [address] ([facility]) (test code = BRISSA Estrada [place] 1538) 09018 POCT-GLUCOSE [id number] 23:14:00 Test Item Value Reference Range Interpretation Comments POC-GLUCOSE METER 128 mg/dL 70-110 H TESTED AT [place] [address] ([facility]) (test code = BRISSA Estrada [place] 1538) 70680 POCT-GLUCOSE [id number] 17:12:00 Test Item Value Reference Range Interpretation Comments POC-GLUCOSE METER 211 mg/dL 70-110 H TESTED AT [place] [address] ([facility]) (test code = BRISSA Estrada [place] 1538) 81273 POCT-GLUCOSE [id number] 12:08:00 Test Item Value Reference Range Interpretation Comments POC-GLUCOSE METER 216 mg/dL 70-110 H TESTED AT [place] [address] ([facility]) (test code = BRISSA Estrada [place] 1538) 50221 POCT-GLUCOSE [id number] 06:07:00 Test Item Value Reference Range Interpretation Comments POC-GLUCOSE METER 143 mg/dL 70-110 H TESTED AT [place] [address] ([facility]) (test code = BRISSA Estrada [place] 1538) 11079 POCT-GLUCOSE [id number] 23:53:00 Test Item Value Reference Range Interpretation Comments POC-GLUCOSE METER 148 mg/dL 70-110 H TESTED AT [place] [address] ([facility]) (test code = BRISSA Estrada [place] 1538) 04636 POCT-GLUCOSE [id number] 17:29:00 Test Item Value Reference Range Interpretation Comments POC-GLUCOSE METER 215 mg/dL 70-110 H TESTED AT [facility] 6720 (BEAKER) (test code = BRISSA Estrada [facility] 1538) 14415 POCT-GLUCOSE [id number] 12:09:00 Test Item Value Reference Range Interpretation Comments POC-GLUCOSE METER 218 mg/dL 70-110 H TESTED AT [facility] 6720 (BEAKER) (test code = BRISSA Estrada [facility] 1538) 48689 POCT-GLUCOSE [id number] 05:44:00 Test Item Value Reference Range Interpretation Comments POC-GLUCOSE METER 143 mg/dL 70-110 H TESTED AT [place] [address] (BEAKER) (test code = BRISSA Estrada [facility] 1538) 04280 [id number] 04:51:00 Test Item Value Reference Range Interpretation Comments MAGNESIUM (BEAKER) 2.1 mg/dL 1.6-2.6 Specimen slightly (test code = 627) hemolyzed BASIC METABOLIC [id number] 04:51:00 Test Item Value Reference Range Interpretation [...] PATIEN TS. CBC W/PLT COUNT & AUTO [id number] 04:31:00 Test Item Value Reference Range Interpretation [...] PERCENT (BEAKER) (test code = 2801) POCT-GLUCOSE [id number] 23:29:00 Test Item Value Reference Range Interpretation Comments POC-GLUCOSE METER 146 mg/dL 70-110 H TESTED AT [facility] 6720 (BEAKER) (test code = BRISSA Estrada [place] 1538) 24152 POCT-GLUCOSE [id number] 13:33:00 Test Item Value Reference Range Interpretation Comments POC-GLUCOSE METER 184 mg/dL 70-110 H TESTED AT [facility] 6720 (BEAKER) ([facility] 1538) 80628 POCT-GLUCOSE [id number] 10:30:00 Test Item Value Reference Range Interpretation Comments POC-GLUCOSE METER 147 mg/dL 70-110 H TESTED AT [facility] 6720 (BEAKER) (test code = [facility] Sean [facility] 1538) 56815 POCT-GLUCOSE [id number] 09:23:00 Test Item Value Reference Range Interpretation Comments POC-GLUCOSE METER 158 mg/dL 70-110 H TESTED AT [facility] 6720 (BEAKER) (test code = [facility] Sean [facility] 1538) 36825 [id number] 07:59:00 Test Item Value Reference Range Interpretation Comments PHOSPHORUS (BEAKER) (test code = 4.0 mg/dL 2.3-4.7 604) [id number] 07:59:00 Test Item Value Reference Range Interpretation Comments MAGNESIUM (BEAKER) (test code = 2.2 mg/dL 1.6-2.6 627) BASIC METABOLIC [id number] 07:59:00 Test Item Value Reference Range Interpretation [...] PATIEN TS. CBC W/PLT COUNT & AUTO [id number] 05:58:00 Test Item Value Reference Range Interpretation [...] PERCENT (BEAKER) (test code = 2801) POCT-GLUCOSE [id number] 17:11:00 Test Item Value Reference Range Interpretation Comments POC-GLUCOSE METER 227 mg/dL 70-110 H TESTED AT [place] [address] (BEAKER) (test code = BRISSA Estrada [facility] 1538) 98548 POCT-GLUCOSE [id number] 12:39:00 Test Item Value Reference Range Interpretation Comments POC-GLUCOSE METER 215 mg/dL 70-110 H [facility] [place] [address] [facility] (test code = [facility] Sean [facility] 1538) 33384 POCT-GLUCOSE [id number] 05:30:00 Test Item Value Reference Range Interpretation Comments POC-GLUCOSE METER 151 mg/dL 70-110 H TESTED AT [place] [address] ([facility] (test code = [facility] Sean [facility] 1538) 44645 [id number] 03:57:00 Test Item Value Reference Range Interpretation Comments PHOSPHORUS (BEAKER) (test code = 4.0 mg/dL 2.3-4.7 604) [id number] 03:57:00 Test Item Value Reference Range Interpretation Comments MAGNESIUM (BEAKER) (test code = 2.2 mg/dL 1.6-2.6 627) BASIC METABOLIC [id number] 03:57:00 Test Item Value Reference Range Interpretation [...] I S NOT APPLICABLE FOR DIALYSIS PATIEN SYLVIA. [id number] 03:47:00 Test Item Value Reference Range Interpretation Comments PARTIAL THROMBOPLASTIN TIME 36.2 seconds 22.5-36.0 H (BEAKER) (test code = 760) CBC W/PLT COUNT & AUTO [id number] 03:42:00 Test Item Value Reference Range Interpretation [...] PERCENT (BEAKER) (test code = 2801) POCT-GLUCOSE [id number] 23:32:00 Test Item Value Reference Range Interpretation Comments POC-GLUCOSE METER 165 mg/dL 70-110 H TESTED AT [place] [address] ([facility]) (test code = [facility] 1538) 95636 [id number] 20:47:00 Test Item Value Reference Range Interpretation Comments PARTIAL THROMBOPLASTIN TIME 30.9 seconds 22.5-36.0 ([facility]) (test code = 760) POCT-GLUCOSE [id number] 17:48:00 Test Item Value Reference Range Interpretation Comments POC-GLUCOSE METER 233 mg/dL 70-110 H TESTED AT [place] [address] ([facility]) (test code = [facility] 1538) 21942 POCT-GLUCOSE [id number] 12:37:00 Test Item Value Reference Range Interpretation Comments POC-GLUCOSE METER 167 mg/dL 70-110 H TESTED AT [place] [address] ([facility]) (test code = [facility] 1538) 65879 POCT-GLUCOSE [id number] 07:22:00 Test Item Value Reference Range Interpretation Comments POC-GLUCOSE METER 139 mg/dL 70-110 H TESTED AT [place] [address] ([facility]) (test code = [facility] 1538) 65116 [id number] 04:10:00 Test Item Value Reference Range Interpretation Comments [facility]US [facility] (test code = 4.5 mg/dL 2.3-4.7 604) [id number] 04:10:00 Test Item Value Reference Range Interpretation Comments MAGNESIUM (BEAKER) (test code = 2.2 mg/dL 1.6-2.6 627) BASIC METABOLIC [id number] 04:10:00 Test Item Value Reference Range Interpretation [...] PATIEN TS. CBC W/PLT COUNT & AUTO [id number] 03:50:00 Test Item Value Reference Range Interpretation [...] PERCENT (BEAKER) (test code = 2801) POCT-GLUCOSE [id number] 03:50:00 Test Item Value Reference Range Interpretation Comments POC-GLUCOSE METER 170 mg/dL 70-110 H TESTED AT [facility] 6720 (BEAKER) (test code = BR[place]SA [place] 1538) 45473 [id number] 00:16:00 Test Item Value Reference Range Interpretation Comments PARTIAL THROMBOPLASTIN TIME 31.8 seconds 22.5-36.0 (BEAKER) (test code = 760) 6 hours after starting heparin infusion and as indicated per sliding scaleFL, ESOPH, SWALLOW FUNCTION, WITH CINE OR [id number] 18:01:00Reason for exam:->CVAFINAL REPORT Modified barium swallow exam with speech pathology service CLINICAL HISTORY: CVA IMPRESSION: Please see the speech pathology service report for details. Barium contrast of multiple consistencies is given to the patient to swallow. Fluoroscopic observation is performedduring swallowing. There is aspiration with all liquids. Fluoro time: 1.2 minutes Number of images: 4 Signed: Francy [place] Verified Date/Time: 09/19/2018 18:01:02 Reading Location: [address] Ortho Consult Reading Room POCT-GLUCOSE [id number] 17:20:00 Test Item Value Reference Range Interpretation Comments POC-GLUCOSE METER 265 mg/dL 70-110 H TESTED AT [facility] 6720 ([facility]) (test code = BR[place]SA [place] 1538) 41382 [id number] 16:49:00 Test Item Value Reference Range Interpretation Comments PARTIAL THROMBOPLASTIN TIME 29.3 seconds 22.5-36.0 (BEAKER) (test code = 760) Prior to initiating heparinCBC W/PLT COUNT & AUTO [id number] 16:45:00 Test Item Value Reference Range Interpretation [...] PERCENT (BEAKER) (test code = 2801) POCT-GLUCOSE [id number] 15:03:00 Test Item Value Reference Range Interpretation Comments POC-GLUCOSE METER 261 mg/dL 70-110 H TESTED AT [facility] 67 (BEAKER) (test code = BRISSA Estraad [facility] 1538) 66626 POCT-GLUCOSE [id number] 08:35:00 Test Item Value Reference Range Interpretation Comments POC-GLUCOSE METER 266 mg/dL 70-110 H TESTED AT [facility] 6720 (BEAKER) (test code = BRISSA Estrada [facility] 1538) 04369 [id number] 07:15:00 Test Item Value Reference Range Interpretation Comments PHOSPHORUS (BEAKER) (test code = 4.5 mg/dL 2.3-4.7 604) [id number] 07:15:00 Test Item Value Reference Range Interpretation Comments MAGNESIUM (BEAKER) (test code = 2.2 mg/dL 1.6-2.6 627) BASIC METABOLIC [id number] 07:15:00 Test Item Value Reference Range Interpretation [...] PATIEN TS. CBC W/PLT COUNT & AUTO [id number] 06:58:00 Test Item Value Reference Range Interpretation [...] PERCENT (BEAKER) (test code = 2801) POCT-GLUCOSE [id number] 23:26:00 Test Item Value Reference Range Interpretation Comments POC-GLUCOSE METER 190 mg/dL 70-110 H TESTED AT [place] [address] (BEAKER) (test code = BRISSA Estrada [facility] 1538) 86109 POCT-GLUCOSE [id number] 06:41:00 Test Item Value Reference Range Interpretation Comments POC-GLUCOSE METER 158 mg/dL 70-110 H TESTED AT [place] [address] (BEAKER) (test code = [facility] Sean [facility] 1538) 24956 [id number] 04:33:00 Test Item Value Reference Range Interpretation Comments PHOSPHORUS (BEAKER) (test code = 4.8 mg/dL 2.3-4.7 H 604) [id number] 04:33:00 Test Item Value Reference Range Interpretation Comments MAGNESIUM (BEAKER) (test code = 2.1 mg/dL 1.6-2.6 627) BASIC METABOLIC [id number] 04:33:00 Test Item Value Reference Range Interpretation [...] PATIEN TS. CBC W/PLT COUNT & AUTO [id number] 04:14:00 Test Item Value Reference Range Interpretation [...] PERCENT (BEAKER) (test code = 2801) POCT-GLUCOSE [id number] 00:24:00 Test Item Value Reference Range Interpretation Comments POC-GLUCOSE METER 216 mg/dL 70-110 H TESTED AT [place] [address] ([facility]) (test code = [facility] 1538) 37015 POCT-GLUCOSE [id number] 20:48:00 Test Item Value Reference Range Interpretation Comments POC-GLUCOSE METER 276 mg/dL 70-110 H TESTED AT [place] [address] ([facility]) (test code = [facility] 1538) 85668 POCT-GLUCOSE [id number] 11:39:00 Test Item Value Reference Range Interpretation Comments POC-GLUCOSE METER 188 mg/dL 70-110 H TESTED AT [place] [address] ([facility]) (test code = [facility] 1538) 80326 RAD, ABDOMEN/KUB, 1 VIEW [id number] 09:12:00Reason for exam:->Ng tubeFINAL REPORT Abdomen , one view History: Nasogastric tube Comparison:none Findings:Nonobstructive bowel gas pattern. No pneumoperitoneum. Nasogastric tube terminates within the stomach. No definite bowel pneumatosis or portal venous gas. Impression:Nasogastric tube terminates within the stomach. Signed: Jason Mistry MDRep[place] Verified Date/Time: 09/17/2018 09:12:57 Reading Location: [facility] B1 [id number] Ortho Consult Reading Room [id number] 07:40:00 Test Item Value Reference Range Interpretation Comments PHOSPHORUS (BEAKER) (test code = 3.9 mg/dL 2.3-4.7 604) [id number] 07:40:00 Test Item Value Reference Range Interpretation Comments MAGNESIUM (BEAKER) (test code = 1.8 mg/dL 1.6-2.6 627) BASIC METABOLIC [id number] 07:40:00 Test Item Value Reference Range Interpretation [...] PATIEN TS. CBC W/PLT COUNT & AUTO [id number] 07:27:00 Test Item Value Reference Range Interpretation [...] PERCENT (BEAKER) (test code = 2801) POCT-GLUCOSE [id number] 06:48:00 Test Item Value Reference Range Interpretation Comments POC-GLUCOSE METER 160 mg/dL 70-110 H TESTED AT [facility] 6720 [facility] (test code = [place] 1538) 67376 POCT-GLUCOSE [id number] 00:56:00 Test Item Value Reference Range Interpretation Comments POC-GLUCOSE METER 169 mg/dL 70-110 H TESTED AT [facility] [address] ([place]) (test code = [place] 1538) [id number] [place], ANGIOGRAM, [id number] 17:55:00Reason for exam:->strokeFINAL REPORT DATE: 09/14/2018 ATTENDING: Haroon Montoya MD ASSISTANT COOK: PREOPERATIVE DIAGNOSIS: Acute right middle cerebral artery [...] but were not limited to stroke, intracranial he morrhage, injury to the cervical femoral or aortic vessels, contrast reaction, kidney to toxicity, groin hematoma, weakness paralysis and even . They demonstrated understanding of the risk benefitprofile and agreed to proceed. PROCEDURE:After appropriate consent [...] an angled DSA angiogram was performed through [facility]. Once good location of the puncture site was confirmed, a 8 [place] short sheath was inserted over a Bentson wire and was maintained on heparinized saline flush throughout the remainder of the procedure. Using coaxial technique, a preflushed 5 [place] 125cm diagnostic glide catheter on constant heparinized saline flush was placed through a pre-flushed and pre- prepped 8 [place] Flowgate balloon Guide catheter. The two catheters were inserted together and advanced over the Glidewire into the descending aorta, the Glidewire was removed, the catheter and flowgate were back bled, flushed in usual fashion and they were maintained on heparinized flushed throughout duration of their use. Using coaxialtechnique, the catheter was advanced into the aortic [...] this was confirmed, we then inserted and deployedthe5 x 33 Embotrap device across the clot. We then waited five minutes for clot integration. During the waiting period, performed and diagnostic angiogram showing adequate flow through the clot fillingthe distal branches. At five minutes, the flowgate balloon was inflated until it was occlusive in the internal carotid, the medical clerical assistant pulled suction through the lumen of [...] removed and hemostasis achieved with an 8 [place] Islander Angioseal and manual compression. The patient tolerated the procedure well and was present transported from the images read in unchanged neurological status without groin hematoma and with good distal lower extremity pulses. The patient was transferredto the neurological intensive care unit to be monitored as per protocol. FINDINGS:RIGHT COMMON FEMORAL ARTERY (DSA, PA X 1)Normal common femoral artery was puncture site above the bifurcation and belowthe markers of the internal ligament. RIGHT COMMON [...] seen. There is no significant atherosclerosis or stenosis.The venous phase demonstrates patent transverse and sigmoid sinuses. IMPRESSION1. Complete occlusionof the right MCA M1 segment. Post-revascularization, there is complete resolution of the intravascular thrombus and sabianist of flow to the distal MCA branches but with some delayed flow, representing a TICI 2B revascularization. FACULTY ATTESTATION: IHaroon M.D., was present for the entirety of the procedure. I performed or directly supervised all aspects of the procedure. I performedall critical aspects of the case. I interpreted the images and reported the results. Signed: Haroon Montoya MDReport Verified Date/Time: 09/16/2018 17:55:16 Reading Location: [facility] Y026 Neuro AngioReading Room POCT-GLUCOSE [id number] 17:45:00 Test Item Value Reference Range Interpretation Comments POC-GLUCOSE METER 153 mg/dL 70-110 H TESTED AT [place] [address] ([facility]) (test code = [facility] 1538) [address] POCT-GLUCOSE [id number] 12:08:00 Test Item Value Reference Range Interpretation Comments POC-GLUCOSE METER 166 mg/dL 70-110 H TESTED AT [place] [address] ([facility]) (test code = [facility] 1538) [address] POCT-GLUCOSE [id number] 06:23:00 Test Item Value Reference Range Interpretation Comments POC-GLUCOSE METER 156 mg/dL 70-110 H TESTED AT [place] [address] ([facility]) (test code = [facility] 1538) [address] [id number] 05:01:00 Test Item Value Reference Range Interpretation Comments PARTIAL THROMBOPLASTIN TIME 32.5 seconds 22.5-36.0 ([facility]) (test code = 760) [id number] 04:20:00 Test Item Value Reference Range Interpretation Comments MAGNESIUM (BEAKER) 2.0 mg/dL 1.6-2.6 Specimen moderately (test code = 627) hemolyzed [id number] 04:20:00 Test Item Value Reference Range Interpretation Comments PHOSPHORUS (BEAKER) 2.9 mg/dL 2.3-4.7 Specimen moderately (test code = 604) hemolyzed BASIC METABOLIC [id number] 04:20:00 Test Item Value Reference Range Interpretation [...] PATIEN TS. CBC W/PLT COUNT & AUTO [id number] 04:06:00 Test Item Value Reference Range Interpretation [...] 0-1 PERCENT (BEAKER) (test code = 2801) [id number] 03:57:00 Test Item Value Reference Range Interpretation Comments FIBRINOGEN LEVEL (BEAKER) (test 160 mg/dl 225-434 L code = 658) PROTHROMBIN [id number] 03:56:00 Test Item Value Reference Range Interpretation [...] 2.5-3.5 for patients wiht mechanical heart valves.POCT-GLUCOSE [id number] 00:13:00 Test Item Value Reference Range Interpretation Comments POC-GLUCOSE METER 134 mg/dL 70-110 H TESTED AT [facility] 6720 ([facility]) (test code = [facility] 1538) [address] [id number] 18:37:00 Test Item Value Reference Range Interpretation Comments D-DIMER QUANTITATIVE ([facility]) > MG/L FEU <0.50 H (test code [...] Reference Range Interpretation Comments B-TYPE NATRIURETIC PEPTIDE ([facility]) 864 pg/mL 0-100 H (test code = 700) POCT-GLUCOSE [id number] 18:02:00 Test Item Value Reference Range Interpretation Comments POC-GLUCOSE METER 118 mg/dL 70-110 H TESTED AT [place] [address] ([facility]) (test code = [facility] 1538) [address] [id number] 17:57:00 Test Item Value Reference Range Interpretation Comments FIBRINOGEN LEVEL ([facility]) (test 104 mg/dl 225-434 L code = 658) LACTATE DEHYDROGENASE (LDH)2018-09-15 17:56:00 Test Item Value Reference Range Interpretation Comments LACTATE DEHYDROGENASE ([facility]) (test 172 U/L 125-220 code = 635) [id number] 17:52:00 Test Item Value Reference Range Interpretation Comments PARTIAL THROMBOPLASTIN TIME 34.5 seconds 22.5-36.0 ([facility]) (test code = 760) RAD, CHEST, 1 VIEW, NON [id number] 17:39:00Reason for exam:->HFShould this be performed at the bedside?->YesFINAL REPORT Chest dated 09/15/2018 Clinical Information: HF Comment: Heart is enlarged. Pulmonary vasculature is indistinct. Interstitial disease is seen bilaterally suggestive of pulmonary edema. No pleural effusion or pneumothorax is seen. Impression: Congestive failure. Signed: Nik Webster Verified Date/Time: 09/15/2018 17:39:38 Reading Location: [address] Consult Reading Room TROPONIN [id number] 16:44:00 Test Item Value Reference Range Interpretation [...] acidosis, acute neurological disease, and persistent tachyarrhythmia.PROTHROMBIN [id number] 16:23:00 Test Item Value Reference Range Interpretation [...] 2.5-3.5 for patients wiht mechanical heart valves.POCT-GLUCOSE [id number] 12:56:00 Test Item Value Reference Range Interpretation Comments POC-GLUCOSE METER 135 mg/dL 70-110 H TESTED AT [facility] 6720 ([place]) (test code = [place] 1358) [address] POCT-GLUCOSE [id number] 08:20:00 Test Item Value Reference Range Interpretation Comments POC-GLUCOSE METER 144 mg/dL 70-110 H TESTED AT [facility] 6720 (BEAKER) (test code = [place] 1538) [address] POCT-GLUCOSE [id number] 06:08:00 Test Item Value Reference Range Interpretation Comments POC-GLUCOSE METER 162 mg/dL 70-110 H TESTED AT [facility] 6720 (BEAKER) (test code = [place] 1538) [address] TROPONIN [id number] 03:48:00 Test Item Value Reference Range Interpretation [...] acute neurological disease, and persistent tachyarrhythmia.BASIC METABOLIC [id number] 03:29:00 Test Item Value Reference Range Interpretation [...] PATIEN TS. CBC W/PLT COUNT & AUTO [id number] 03:08:00 Test Item Value Reference Range Interpretation [...] (test code = 2801) MR, BRAIN, WITHOUT [id number] 02:57:00Reason for exam:->strokeFINAL REPORT Exam: MRI brain [...] The orbits, sella and parasellar regions are unremarkable.The craniocervical junction is normal. 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 Signed: Greta Hurtado [facility] Verified Date/Time: 09/15/2018 02:57:30 POCT-GLUCOSE METER 2018-09-15 00:23:00 Test Item Value Reference Range Interpretation Comments POC-GLUCOSE METER 127 mg/dL 70-110 H TESTED AT [facility] 67[address] ([place]) (test code = [place] Estrada [facility] 1538) [address] TROPONIN [id number] 17:00:00 Test Item Value Reference Range Interpretation Comments TROPONIN I ([place]) (test code = 0.16 ng/mL 0.00-0.03 H [...] acidosis, acute neurological disease, and persistent tachyarrhythmia.POCT-GLUCOSE [id number] 16:29:00 Test Item Value Reference Range Interpretation Comments POC-GLUCOSE METER 204 mg/dL 70-110 H TESTED AT [facility] 67 ([facility]) (test code = [place] 1538) [address] POCT-GLUCOSE [id number] 14:11:00 Test Item Value Reference Range Interpretation Comments POC-GLUCOSE METER 230 mg/dL 70-110 H TESTED AT [place] [address] ([facility]) (test code = [place] Sean [facility] 1538) [address] TROPONIN [id number] 11:44:00 Test Item Value Reference Range Interpretation Comments TROPONIN I ([facility]) (test code = 0.11 ng/mL 0.00-0.03 H [...] failure, acidosis, acute neurological disease, and persistent tachyarrhythmia.[id number] 11:42:00 Test Item Value Reference Range Interpretation Comments RPR SCREEN ([facility]) (test code = Nonreactive Nonreactive 420) HEMOGLOBIN [id number] 06:56:00 Test Item Value Reference Range Interpretation Comments HEMOGLOBIN A1C (AKER) (test code = 6.3 % 4.3-6.1 H 368) C-REACTIVE [id number] 04:38:00 Test Item Value Reference Range Interpretation Comments C-REACTIVE PROTEIN (AKER) (test 19.08 mg/dL 0.00-0.50 H code = 676) FastingLIPID [id number] 04:09:00 Test Item Value Reference Range Interpretation Comments TRIGLYCERIDES (AKER) (test code = 101 mg/dL 540) CHOLESTEROL (BEAKER) (test code = 240 mg/dL 631) HDL CHOLESTEROL (AKER) (test code 46 mg/dL = 976) LDL CHOLESTEROL CALCULATED ([facility]) 174 mg/dL (test code = 633) Triglyceride Reference Range: Low Risk <150 Borderline 150-199 High Risk 200-499 Very High Risk >=500Cholesterol Reference Range: Low Risk <200 Borderline 200-239 High Risk >240HDL Cholesterol Reference Range: Low Risk >=60 High Risk <40LDL Cholesterol Reference Range: Optimal <100 Near Optimal 100-129 Borderline 130-159 High 160-189 Very High >=190 FastingBASIC METABOLIC [id number] 04:09:00 Test Item Value Reference Range Interpretation [...] APPLICABLE FOR DIALYSIS PATIEN TS. FastingHEPATIC FUNCTION [id number] 04:09:00 Test Item Value Reference Range Interpretation [...] 9 U/L 6-55 347) FastingTSH/FREE T4 IF [id number] 03:38:00 Test Item Value Reference Range Interpretation Comments THYROID STIMULATING HORMONE 1.68 uIU/mL 0.35-4.94 (BEAKER) (test code = 772) VITAMIN B12 AND [id number] 03:38:00 Test Item Value Reference Range Interpretation Comments VITAMIN B12 (BEAKER) (test code = 853 pg/mL 213-816 H 774) FOLATE (BEAKER) (test code = 362) 12.9 ng/mL >=7.0 PT/[id number] 03:05:00 Test Item Value Reference Range Interpretation [...] 2.5-3.5 for patients wiht mechanical heart valves.PROTHROMBIN TIME/[id number] 03:04:00 Test Item Value Reference Range Interpretation [...] mechanical heart valves.CBC W/PLT COUNT & AUTO [id number] 03:02:00 Test Item Value Reference Range Interpretation [...] (BEAKER) (test code = 2801) CT, CTANGIO [id number] 02:29:00Reason for exam:->strokeFINAL REPORT CLINICAL HISTORY: StrokeIschemic [...] Signed: Miryam Paulson Verified Date/Time: 09/14/2018 02:29:06 [facility] [place] 2018-09-14 02:29:00Reason for exam:->Ischemic Stroke [...] Signed: Miryam Paulson Verified Date/Time: 09/14/2018 02:29:06 [facility] [id number] 02:29:00Reason for exam:->Symptom onset less than 6 [...] Bilateral posterior cerebral arteries are patent. The corporate risk analyst ior communicating arteries are not identified on [...] telephone on 09/14/2018 2:00 AM. Signed: Miryam [place] Verified Date/Time: 09/14/2018 02:29:06 History and Physical Notes Date/Time Note Provider Source 2022-07-24 18:55:00-00:00 Diana Katz MD: Min VILLALOBOS [place] Display: History and PhysicalAuthored Date: [id number] and Physical Primary Team Name:Team Contact Info:PCP [...] in a chair on driveway by the manager labor delivery. Per EMS, patient was sitting with his head below his knees, and alert on their arrival and IV fluids started en route. Patient reports constant AICD firing for the last week with associated chest pain and palpitation. Patient also reports associated lightheadedness, generalized weakness and headache. Patient denies any loss of consciousness. Patient reports he was initially seen at [facility] and told that his defibrillator needed [...] Pertinent Imaging: N/A Assessment/Plan: 1. Non-ST elevation GA (NSTEMI) (I21.4) Ordered: Admit/Condition, 07/15/22 22:41:00 CDT, Status: Out Patient with Observation Services, Telemetry Capable Location, Expected LOS: 2 Midnights, Diana Katz MD, Admit MD Review/Approve Yes, Isolation: No Isolation/Standard Precautions, Non-ST elevation GA (NSTEMI) 2. Pre-syncope (R55) 3. Altered mental status (R41.82) 4. CAD (coronary artery disease) (I25.10) Patient given a dose of Lovenox at outside hospital prior to transfer which should cover patient for tonight pending cardiology evaluation in the morningTrend troponinASA/statinFollow-up A1c, and lipid panelFollow-up echoTelemetryCardiology consultedPatient will need device interrogation Prophylaxis Lovenox Disposition Pending hospital courseDiana Katz MDElectronically Signed: 07/16/22 07:40 Notes Date/Time Note Provider Source 2022-07-16 12:45:55-00:00 PROCEDURE INFORMATION: [facility] Exam: XR Chest Exam date and time: [...] above. Burton Pearl MD On 07/16/2022 17:34:11; LOWELL- [id number] 2021-12-15 11:45:00-00:00 EXAM: Abdomen complete US [facility] DATE: 12/15/2021 11:34. INDICATION: Leukopenia. COMPARISON: None [...]
[2022-08-16 06:43] LABS: Absolute Lymphocytes (CBC) 0.6 K/uL (0.7-4.9); Hematocrit 41.1 % (39.6-49.0); Lymphocytes % 16.1 % (15.3-44.8); MCV 92.1 fL (80-100); MPV 8.2 fL (7.6-11.3); RBC Red Blood Cell Count 4.46 M/uL (4.33-5.43)
[2022-08-16 07:01] LABS: Albumin 3.8 g/dL (3.4-5.0); Bilirubin Direct 0.2 mg/dL (0-0.2); Bilirubin Indirect, Calculated 0.5 mg/dL (0.2-0.8); Bilirubin Total 0.7 mg/dL (0.2-1.0); Magnesium 2.2 mg/dL (1.6-2.4); Potassium 4.3 mEq/L (3.5-5.1); Protein, Total 7.5 g/dL (6.4-8.2)
[2022-08-16 07:07] LABS: Troponin High Sensitivity 1206.5 pg/mL (<58.9)
--- NOTE | 2022-08-16 07:49 | RAD REPORT ---
EXAM DESCRIPTION: RADChest Single View08/16/2022 7:40 am CLINICAL HISTORY: CHEST PAIN COMPARISON: Chest Single View dated 08/05/2022; Chest Single View dated 07/15/2022; Chest Single View d ated 05/03/2022; Chest Single View dated 05/19/2019 TECHNIQUE: Portable AP view of the chest. FINDINGS: The lungs are clear. No pneumothorax or effusion. The cardiomediastinal contours are unch anged. Left chest wall pacer/ AICD in place. Sequelae of prior CABG. IMPRESSION: No acute cardiopulmonary process.
--- NOTE | 2022-08-16 08:00 | EDPHYS ---
Physician Documentation [facility] Name: Lamin Fitzpatrick III Age: 71 yrs Sex: Male : 1950 Arrival Date: 08/16/2022 Time: 06:18 Bed 4 Private MD: ED Physician Mark Zhao HPI: 08/16 07:44 This 71 yrs old Male presents to ER via EMS with complaints of CHEST PAIN AND marcelina DEFIBRILLATOR COMPS. 07:44 CP THIS AM , DEFIB DISCHARGED. Onset: The symptoms/episode began/occurred this morning. marcelina Severity of symptoms: At their worst the symptoms were mild moderate in the emergency department the symptoms are unchanged. The patient has not experienced similar symptoms in the past. Historical: - Allergies: 06:20 Allopurinol; jb4 06:20 Alteplase; jb4 06:20 Colchicine; jb4 - Home Meds: 06:20 atorvastatin 10 mg Oral tab once daily [Active]; acetaminophen 650 mg Oral TbER every 8 jb4 hours for Pain [Active]; omeprazole 20 mg Oral cpDR once daily [Active]; aspirin 81 mg Oral chew 1 tab once daily [Active]; aspirin 325 mg Oral tab 1 tab Every other day [Active]; carvedilol Oral 1 tab 2 times per day [Active]; Dulcolax (bisacodyl) 5 mg Oral TbEC twice a day [Active]; colchicine 0.6 mg Oral cap 1 cap once daily [Active]; Eliquis 5 mg Oral tab 2 times per day [Active]; ezetimibe Oral 10 mg once daily [Active]; metoprolol tartrate 12.5MG Oral tab 2 times per day [Active]; Glucosamine 1500mg Oral twice a day [Active]; Milk of Magnesia 400 mg/5 mL Oral susp 30 mL once daily [Active]; - PMHx: 06:20 Atrial fibrillation; CAD; Gout; Chronic pain from gout; CVA; CHF; jb4 - PSHx: 06:20 pacemaker; jb4 - Immunization history:: Adult Immunizations up to date, Pneumococcal vaccine is up to date, Flu vaccine is up to date. - Social history:: Smoking status: Patient denies any tobacco usage or history of. Patient/guardian denies using alcohol, street drugs. ROS: 07:46 Constitutional: Negative for fever, chills, and weight loss, Eyes: Negative for injury, marcelina pain, redness, and discharge, ENT: Negative for injury, pain, and discharge, Neck: Negative for injury, pain, and swelling, Abdomen/GI: Negative for abdominal pain, nausea, vomiting, diarrhea, and constipation, Back: Negative for injury and pain, : Negative for injury, bleeding, discharge, and swelling, MS/Extremity: Negative for injury and deformity, Skin: Negative for injury, rash, and discoloration, Neuro: Negative for headache, weakness, numbness, tingling, and seizure, Psych: Negative for depression, anxiety, suicide ideation, homicidal ideation, and hallucinations, Allergy/Immunology: Negative for hives, rash, and allergies, Endocrine: Negative for neck swelling, polydipsia, polyuria, polyphagia, and marked weight changes, Hematologic/Lymphatic: Negative for swollen nodes, abnormal bleeding, and unusual bruising. 07:46 Cardiovascular: Positive for chest pain, of the chest. 07:46 Respiratory: Positive for shortness of breath. Exam: 07:46 Constitutional: This is a well developed, well nourished patient who is awake, alert, marcelina and in no acute distress. Head/Face: Normocephalic, atraumatic. Eyes: Pupils equal round and reactive to light, extra-ocular motions intact. Lids and lashes normal. Conjunctiva and sclera are non-icteric and not injected. Cornea within normal limits. Periorbital areas with no swelling, redness, or edema. ENT: Nares patent. No nasal discharge, no septal abnormalities noted. Tympanic membranes are normal and external auditory canals are clear. Oropharynx with no redness, swelling, or masses, exudates, or evidence of obstruction, uvula midline. Mucous membranes moist. Neck: Trachea midline, no thyromegaly or masses palpated, and no cervical lymphadenopathy. Supple, full range of motion without nuchal rigidity, or vertebral point tenderness. No Meningismus. Chest/axilla: Normal chest wall appearance and motion. Nontender with no deformity. No lesions are appreciated. Cardiovascular: Regular rate and rhythm with a normal S1 and S2. No gallops, murmurs, or rubs. Normal PMI, no JVD. No pulse deficits. Respiratory: Lungs have equal breath sounds bilaterally, clear to auscultation and percussion. No rales, rhonchi or wheezes noted. No increased work of breathing, no retractions or nasal flaring. Abdomen/GI: Soft, non-tender, with normal bowel sounds. No distension or tympany. No guarding or rebound. No evidence of tenderness throughout. Back: No spinal tenderness. No costovertebral tenderness. Full range of motion. Skin: Warm, dry with normal turgor. Normal color with no rashes, no lesions, and no evidence of cellulitis. MS/ Extremity: Pulses equal, no cyanosis. Neurovascular intact. Full, normal range of motion. Neuro: Awake and alert, GCS 15, oriented to person, place, time, and situation. Cranial nerves II-XII grossly intact. Motor strength 5/5 in all extremities. Sensory grossly intact. Cerebellar exam normal. Normal gait. Psych: Awake, alert, with orientation to person, place and time. Behavior, mood, and affect are within normal limits. 07:46 ECG was reviewed by the Attending Physician. 07:46 Musculoskeletal/extremity: Extremities: all appear grossly normal, with no appreciated pain with palpation, ROM: intact in all extremities, full active range of motion, full passive range of motion, LEFT HEMIPARESIS, Circulation is intact in all extremities. Sensation intact. Compartment Syndrome exam of affected extremity: is normal. no pain, no numbness, no tingling, no sensation deficit, no palor, no weak pulses, DVT Exam: No signs of deep vein thrombosis. no pain, no swelling, no tenderness, negative Homans' sign noted on exam, no appreciated bluish discoloration, no erythema, no increased warmth. Vital Signs: 06:24 BP 141 / 71; Pulse 65; Resp 16; Temp 98.2(TE); Pulse Ox 99% on R/A; Weight 77.56 kg jb4 (M); Height 6 ft. 0 in. ; 07:12 BP 130 / 64; Pulse 64 MON; Resp 19 S; Pulse Ox 99% on R/A; ap3 09:09 BP 144 / 71; Pulse 63; Resp 16; Pulse Ox 100% ; bp 06:24 Body Mass Index 23.19 (77.56 kg, 182.88 cm) jb4 [place] Coma Score: 07:46 Eye Response: spontaneous(4). Motor Response: obeys commands(6). Verbal Response: marcelina oriented(5). Total: 15. MDM: 07:13 Patient medically screened. marcelina 07:49 Differential diagnosis: Anemia Anxiety Reaction asthma, CHF exacerbation, abnormal EKG, marcelina acute myocardial infarction, acute pericarditis, coronary artery disease costochondritis, esophagitis, gastritis, pancreatitis, pleurisy, pneumonia, stable angina, thoracic aortic disection, unstable angina, Myocardial Infarction pulmonary edema, reactive airway disease, Unstable Angina. Antibiotic administration: Not indicated. Differential Diagnosis altered mental status. HEART Score: History: Moderately Suspicious (1), ECG: Non specific repolarization disturbance / LBTB / PM (1), Age: > or = 65 years (2), Risk Factors: > or = 3 Risk factors for atherosclerotic disease (2), [Hypercholesterolemia] [Hypertension] [+ Family HX] Troponin: < or = 1 x Normal Limit (0). The patient was not given aspirin in the Emergency Department. Not indicated due to patient's past medical history. JEREMÍAS Risk Score: 1 - patient's age is greater or equal to 65 years, 1 - Three or more CAD risk factors, 1 - Recent [<24hrs] Severe Angina, TOTAL SCORE = 3. Immunization status: Pneumococcal vaccine: within last 5 years. Influenza vaccine: within last 5 years. Data reviewed: vital signs. Consideration of Admission/Observation Escalation of care including admission/observation considered. Management of patient was discussed with the following: Service Counselor: CARDIOLOGY. I considered the following discharge prescriptions or medication management in the emergency department Medications were administered in the Emergency Department. See MAR. Test considered but Not performed: Ultrasound NO ECHO 2D. Care significantly affected by the following chronic conditions: Diabetes. Counseling: I had a detailed discussion with the patient and/or guardian regarding: the historical points, exam findings, and any diagnostic results supporting the discharge/admit diagnosis, radiology results, the need for outpatient follow up, the need to transfer to another facility, for higher level of care, [facility] does not immediately have the required specialist. 08/16 06:25 Order name: Basic Metabolic Panel; Complete Time: :28 kdr 08/16 06:25 Order name: CBC with Diff; Complete Time: : kdr 08/16 06:25 Order name: D-Dimer; Complete Time: 08:43 kdr 08/16 06:25 Order name: LFT's; Complete Time: : kdr 08/16 06:25 Order name: Magnesium; Complete Time: 07:28 kdr 08/16 06:25 Order name: NT PRO-BNP; Complete Time: 07:28 kdr 07 06:25 Order name: Troponin HS; Complete Time: 07:28 kdr 08/16 06:25 Order name: XRAY Chest (1 view); Complete Time: 08:43 kdr 08/16 06:25 Order name: EKG; Complete Time: 06:26 kdr 08/16 06:25 Order name: Cardiac monitoring; Complete Time: 06:37 kdr 08/16 06:25 Order name: EKG - Nurse/Tech; Complete Time: 06:37 kdr 08/16 06:25 Order name: IV Saline Lock; Complete Time: 06:37 kdr 07 06:25 Order name: Labs collected and sent; Complete Time: 06:37 kdr 08/16 06:25 Order name: O2 Per Protocol; Complete Time: 06:37 kdr 08/16 06:25 Order name: O2 Sat Monitoring; Complete Time: 06:37 kdr EC:46 Rate is 68 beats/min. Rhythm is regular. QRS [place]ill is Normal. AR interval is normal. QRS marcelina interval is normal. QT interval is normal. No Q waves. T waves are Normal. No ST changes noted. Clinical impression: Abnormal EKG without significant change and No evidence of ischemia. Interpreted by me. Reviewed by me. Administered Medications: No medications were administered Disposition Summary: 08/16/22 07:59 Transfer Ordered Transfer Location: [facility] marcelina Reason: Higher level of care marcelina Condition: Fair marcelina Problem: new marcelina Symptoms: have improved marcelina Accepting Physician: JOSE GARCIA(08/16/22 09:45) bp Diagnosis - Chest pain, unspecified marcelina - Cardiomegaly marcelina - Presence of cardiac pacemaker marcelina - Abnormal levels of other serum enzymes - ELEVATED TROPONIN marcelina Forms: - Medication Reconciliation Form marcelina - SBAR form marcelina Signatures: Dispatcher [employer] EDMark Miller MD MD cha Rittger, Kevin, MD MD kdr Bryson, James, RN RN jbAndre Frank RN RN bp Corrections: (The following items were deleted from the chart) 09:45 07:59 [facility] marcelina bp
--- NOTE | 2022-08-16 08:00 | ER ---
Nurse's Notes [facility] Name: Lamin Fitzpatrick III Age: 71 yrs Sex: Male : 1950 Arrival Date: 08/16/2022 Time: 06:18 Bed 4 Private MD: Diagnosis: Chest pain, unspecified;Cardiomegaly;Presence of cardiac pacemaker;Abnormal levels of other serum enzymes-ELEVATED TROPONIN Presentation: 08/16 06:24 Chief complaint: EMS states: Pt reports that his pace maker leads became detached at jb4 0320 this morning because he woke up and it fired and he shook. Pt reports not having a bowel movement in 2 week. Prior history of CVA with left arm paralysis. Coronavirus screen: At this time, the client does not indicate any symptoms associated with coronavirus-19. Ebola Screen: No symptoms or risks identified at this time. Initial Sepsis Screen: Does the patient meet any 2 criteria? No. Patient's initial sepsis screen is negative. Does the patient have a suspected source of infection? No. Patient's initial sepsis screen is negative. Risk Assessment: Do you want to hurt yourself or someone else? Patient reports no desire to harm self or others. Onset of symptoms was August 16, 2022. Transition of care: patient was not received from another setting of care. 06:24 Method Of Arrival: EMS: [facility] 4 06:24 Acuity: JODIE 3 jb4 Triage Assessment: 07:00 General: Appears in no apparent distress. uncomfortable, Behavior is cooperative, bp appropriate for age, agitated. Pain: Complains of pain in chest. Historical: - Allergies: 06:20 Allopurinol; jb4 06:20 Alteplase; jb4 06:20 Colchicine; jb4 - Home Meds: 06:20 atorvastatin 10 mg Oral tab once daily [Active]; acetaminophen 650 mg Oral TbER every 8 jb4 hours for Pain [Active]; omeprazole 20 mg Oral cpDR once daily [Active]; aspirin 81 mg Oral chew 1 tab once daily [Active]; aspirin 325 mg Oral tab 1 tab Every other day [Active]; carvedilol Oral 1 tab 2 times per day [Active]; Dulcolax (bisacodyl) 5 mg Oral TbEC twice a day [Active]; colchicine 0.6 mg Oral cap 1 cap once daily [Active]; Eliquis 5 mg Oral tab 2 times per day [Active]; ezetimibe Oral 10 mg once daily [Active]; metoprolol tartrate 12.5MG Oral tab 2 times per day [Active]; Glucosamine 1500mg Oral twice a day [Active]; Milk of Magnesia 400 mg/5 mL Oral susp 30 mL once daily [Active]; - PMHx: 06:20 Atrial fibrillation; CAD; Gout; Chronic pain from gout; CVA; CHF; jb4 - PSHx: 06:20 pacemaker; jb4 - Immunization history:: Adult Immunizations up to date, Pneumococcal vaccine is up to date, Flu vaccine is up to date. - Social history:: Smoking status: Patient denies any tobacco usage or history of. Patient/guardian denies using alcohol, street drugs. Screenin:00 [facility] ED Fall Risk Assessment (Adult) History of falling in the last 3 months, bp including since admission No falls in past 3 months (0 pts). Abuse screen: Denies threats or abuse. Denies injuries from another. Nutritional screening: No deficits noted. Tuberculosis screening: No symptoms or risk factors identified. Assessment: 06:20 General: Appears in no apparent distress. uncomfortable, Behavior is calm, cooperative. jb4 Pain: Complains of pain in chest Pain does not radiate. Pain currently is 4 out of 10 on a pain scale. at worst was 10 out of 10 on a pain scale. Neuro: Level of Consciousness is awake, alert, obeys commands, Oriented to person, place, time, situation. Cardiovascular: Patient's skin is warm and dry. Respiratory: Airway is patent Respiratory effort is even, unlabored, Respiratory pattern is regular, symmetrical. GI: No signs and/or symptoms were reported involving the gastrointestinal system. : No signs and/or symptoms were reported regarding the genitourinary system. EENT: No signs and/or symptoms were reported regarding the EENT system. Derm: Skin is intact, Skin is pink, warm \T\ dry. Musculoskeletal: Range of motion: limited in left shoulder. 07:00 Reassessment: RECD REPORT FROM CARLOS WHYTE. 71YO WM P/W SUBJECTIVE PACER PROBLEM AND bp CONSTIPATION. PT VERBALLY ABUSIVE TO FAMILY, EMS AND ER STAFF, REQUESTING TRANSFER TO [facility]. 07:52 Reassessment: [facility] TRANSFER INITIATED. bp 09:08 Reassessment: REPORT TO MOOK WHYTE FOR [facility] 924. bp 09:37 Reassessment: EMS AT B/S FOR TRANSPORT. bp Vital Signs: 06:24 BP 141 / 71; Pulse 65; Resp 16; Temp 98.2(TE); Pulse Ox 99% on R/A; Weight 77.56 kg jb4 (M); Height 6 ft. 0 in. ; 07:12 BP 130 / 64; Pulse 64 MON; Resp 19 S; Pulse Ox 99% on R/A; ap3 09:09 BP 144 / 71; Pulse 63; Resp 16; Pulse Ox 100% ; bp 06:24 Body Mass Index 23.19 (77.56 kg, 182.88 cm) jb4 [place] Coma Score: 07:46 Eye Response: spontaneous(4). Motor Response: obeys commands(6). Verbal Response: marcelina oriented(5). Total: 15. ED Course: 06:20 Patient arrived in ED. jb4 06:23 Xavier Merritt MD is Attending Physician. kdr 06:24 Arm band placed on right wrist. jb4 06:30 Triage completed. jb4 06:37 EKG done, by ED staff, reviewed by Xavier Merritt MD. wm 07:00 Patient has correct armband on for positive identification. Bed in low position. Call bp light in reach. Side rails up X2. 07:00 Inserted saline lock: 20 gauge in right forearm, using aseptic technique. Blood bp collected. 07:08 Andre Santillan, PATO is Primary Nurse. bp 07:13 Attending Physician role handed off by Xavier Merritt MD marcelina 07:13 Mark Zhao MD is Attending Physician. marcelina 07:41 XRAY Chest (1 view) In Process Unspecified. EDMS 08:18 initiated a transfer with Artur Lester from the [facility] Transfer Center. eb 08:[address] Collado the concrete pile driver operator physician for [facility] with Dr. Zhao for patient transfer consultation. 08:52 administrative approval given by Artur Lester/ patient has been accepted to [facility] 9b 924/ Dr. Varinder Pulido has accepted the patient in transfer/ Report to be called to [phone]. 09:37 No provider procedures requiring assistance completed. Patient transferred, IV remains bp in place. Administered Medications: No medications were administered Medication: 07:00 VIS not applicable for this client. bp Outcome: 07:59 ER care complete, transfer ordered by . marcelina 09:37 Transferred by ground EMS to [facility]. bp 09:37 Condition: stable 09:37 Instructed on the need for transfer. 09:45 Patient left the ED. bp Signatures: Dispatcher [employer] EDMS Mark Zhao MD MD cha Rittger, Kevin, MD MD kdr Bryson, James, RN RN jb4 Andre Santillan RN RN Chelo Dean RN RN ap3 Vi Casillas Wendy
[2022-08-16 09:54] VITALS: TEMP 98.2
[2022-08-16 09:56] VITALS: BP 144/71; O2SAT 100
--- NOTE | 2022-08-17 17:13 | EKG ---
Test Date: 2022-08-16 Test Time: 06:29:40 Research Professor: MEASUREMENT RESULTS: Intervals: Rate: 62 DC: 196 QRSD: 176 QT: 494 QTc: 501 [place]: P: -27 DC: 196 QRS: 211 T: -16 INTERPRETIVE STATEMENTS: AV dual-paced rhythm with occasional ventricular-paced complexes and with occasional premature ventricular complexes Abnormal ECG Compared to ECG 08/16/2022 06:27:51 Ventricular premature complex(es) now present Atrial-sensed ventricular-paced complex(es) or rhythm no longer present Electronically Signed On 08-17-22 17:11:17 CDT by Ramos Michelle
--- NOTE | 2022-08-17 17:13 | EKG ---
Test Date: 2022-08-16 Test Time: 06:27:51 Market Research Specialist: MEASUREMENT RESULTS: Intervals: Rate: 68 IA: 142 QRSD: 174 QT: 490 QTc: 521 [place]: P: 74 IA: 142 QRS: 222 T: -17 INTERPRETIVE STATEMENTS: Atrial-sensed ventricular-paced rhythm Abnormal ECG Compared to ECG 08/05/2022 10:42:15 No significant changes Electronically Signed On 08-17-22 17:11:20 CDT by Ramos Michelle
== END 2022-08-16 09:45 | disposition short-term general hospital (02) ==
LOC: ER 06:18
DX: R07.89 Other chest pain (principal); I51.7 Cardiomegaly; R77.8 Other specified abnormalities of plasma proteins; Z95.0 Presence of cardiac pacemaker; I48.91 Unspecified atrial fibrillation; Z79.01 Long term (current) use of anticoagulants; I50.9 Heart failure, unspecified; Z79.82 Long term (current) use of aspirin; Z88.8 Allergy status to other drugs, medicaments and biological substances
CPT/HCPCS: 36415; 71045; 80048; 80076; 83735; 83880; 84484; 85025; 85379; 93005; 99285

== ENCOUNTER 2022-08-18 05:44 | Emergency (ER) | payer OTHER ==
--- OUTSIDE RECORDS SUMMARY | 2022-08-18 06:06 | XMS REPORT | Continuity of Care Document ---
:1950 Author Organization [facility] t Address [address] [place] [address] [address] [place] [address] Care Team Providers Name Role Phone No, Pcp [facility] Primary Care Physician Unavailable DESTINY SANDY Attending Clinician Unavailable SHIRA BRANCH Attending Clinician Unavailable SHIRA BRANCH Attending Clinician Unavailable SANJUANA FIORE Attending Clinician Unavailable SANJUANA FIORE Attending Clinician Unavailable NONI IVEY Attending Clinician Unavailable NONI IVEY Attending Clinician Unavailable Varinder Pulido MD Attending Clinician Noni Ivey MD Attending Clinician Kt MELENDEZ, Michele Attending Clinician Destiny Sandy MD Attending Clinician CRISTAL DUNN Attending Clinician Unavailable ADY TUCKER Attending Clinician Unavailable MICHELE MERAZ Attending Clinician Unavailable Bereket WHYTE, Sarai Nichols Attending Clinician Unavailable Dino Estrada MD Attending Clinician Jim MELENDEZ, Logan Quezada Attending Clinician MORDINO COBIAN Attending Clinician Unavailable Lab, Ang - Db Attending Clinician Unavailable Doctor Unassigned, [place] Attending Clinician Unavailable Candelaria MELENDEZ, Dylan Kimble Attending Clinician [phone] CYNTHIA, ISABELLA ESCALONA Attending Clinician Unavailable Cynthia MBBS, Isabella Escalona Attending Clinician [phone], Adc Lab Attending Clinician Unavailable Radha MELENDEZ, Burton Attending Clinician BURTON GARCIA Attending Clinician Unavailable Dirk ELECTRONICS HARDWARE DESIGN ENGINEER, Anil Attending Clinician ANIL STACY Attending Clinician Unavailable Citlaly David RN Attending Clinician Unavailable Leila MELENDEZ, Moreno Corcoran Attending Clinician CHELO BARBA Attending Clinician Unavailable Jameson MELENDEZ, Chelo Attending Clinician Kayla ELECTRONICS HARDWARE DESIGN ENGINEER, Henrry Attending Clinician Valentin ELECTRONICS HARDWARE DESIGN ENGINEERArden Attending Clinician ARDEN HANSON Attending Clinician Unavailable Kody ELECTRONICS HARDWARE DESIGN ENGINEER, Karmen Attending Clinician Zuri Avalos Attending Clinician ZURI MAO Attending Clinician Unavailable Thang KEARNEYP, Jude Attending Clinician JUDE DESIR Attending Clinician Unavailable Nik Vargas MD Attending Clinician NIK VARGAS Attending Clinician Unavailable MORENO DEE Attending Clinician Unavailable Mariela Petit Attending Clinician Pat Dee MD Attending Clinician PAT DEE Attending Clinician Unavailable Mandi MELENDEZ, Amanda Armstrong Attending Clinician AMANDA BUTLER Attending Clinician Unavailable Chepe Dubois DO Attending Clinician ERIC AVINA Attending Clinician Unavailable CHEPE DUBOIS Attending Clinician Unavailable JESUS ARCHER Attending Clinician Unavailable ZENY QUICK Attending Clinician Unavailable RADHA LAWSON Attending Clinician Unavailable NONI IVEY Admitting Clinician Unavailable Chinedu MELENDEZ, Noni Admitting Clinician KATHERYN MALIAHOA BENTLEY Admitting Clinician Unavailable JOSE NORRIS Admitting Clinician Unavailable Logan Fernandez MD Admitting Clinician LOGAN FERNANDEZ Admitting Clinician Unavailable MICHELE MERAZ Admitting Clinician Unavailable Kt MELENDEZ, Michele Admitting Clinician DESTINY SANDY Admitting Clinician Unavailable ZENY QUICK Admitting Clinician Unavailable RADHA LAWSON Admitting Clinician Unavailable Payers Payer Name Policy Type Policy Number Effective Date Expiration Date S ource [facility] WELLMED [id number] 2021 00:00:[address] [facility] [id number] 2021 COMP HMO D SNP 00:00:00 [facility] [id number] 2022 PLUS 00:00:00 [place] [id number] 2019 00:00:00 Problems Condition Condition Condition Status Onset Resolution Last Treating Co mments Source Name Details Category Date Date Treatment Clinician Date ICD ICD Disease Active Univers (implantab (implantab 08-16 it y of le le 00:00: [place] cardiovert cardiovert 00 Me dical er-defibri er-defibri Br anch llator) llator) discharge discharge NSTEMI NSTEMI Diagnosis Active 2022-07-17 Me moria Active 07-15 07:30:00 l 07/15/2022 00:00: Benigno knox [place] [address] Nilo NSTEMI, NSTEMI, Diagnosis Active 2022-07-30 Rubio AICD, CP, AICD, CP, 07-15 21:49:00 l PRE-SYNCOP PRE-SYNCOP 00:00: He abeann E, AMS, E, AMS, 00 CAD, CAD, Active 07/15/2022 [facility] Paranoia Paranoia Disease Active 2023-0 Unive rs 6-03 ity of 00:00: [place] 00 Medical Branch LBBB (left LBBB (left Disease Active Overview : Univers bundle bundle 2-22 Formattin ity of branch branch 00:00: g of this [place] block) block) 00 note Medical might be Branch different from the original. Added automatic ally from request for surgery [id number] PAF PAF Disease Active Univers (paroxysma (paroxysma -23 it y of l atrial l atrial 00:00: [place] fibrillati fibrillati 00 Me dical on) on) Branch Folliculit Folliculit Disease Active U nivers is is 1-25 ity of 00:00: [place] Medical [facility] Abrasion Abrasion Disease Active Unive rs of right of right 1-25 ity of ear, ear, 00:00: [place] initial initial 00 Medical encounter encounter Bran ch Abnormal Abnormal Disease Active Overview: Un marcie liver liver 1-24 Formattin ity of function function 00:00: g of this Anthony as tests tests 00 note Medical might be Branch different from the original. 02/2020: New problem, patient had normal LFTs in 2019. 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 1-24 ity of 00:00: [place] [facility] Prediabete Prediabete Disease Active 2019- U nivers s s 2-27 ity of 00:00: [place] 00 Medical Branch Left Left Disease Active 2019-02 Univers hemiplegia hemiplegia 2-21 it y of 00:00: [place] 00 Medical Branch Coronary Coronary Disease Active Unive rs artery artery 5-05 ity of disease disease 00:00: [place] involving involving 00 Medi ralph yurok yurok Branch coronary coronary artery of artery of yurok yurok heart with heart with angina angina pectoris pectoris Coronary Coronary Disease Active Unive rs artery artery 5-05 ity of disease disease 00:00: [place] involving involving 00 Medi ralph yurok yurok Branch coronary coronary artery of artery of yurok yurok heart with heart with angina angina pectoris pectoris Essential Essential Disease Active Uni vers hypertensi hypertensi 5-05 it y of on on 00:00: [place] [facility] Chronic Chronic Disease Active Univers gout of gout of 5-05 ity of multiple multiple 00:00: [place] sites sites 00 Medical Branch Hyperchole Hyperchole Disease Active U americo sterolemia sterolemia 5-05 it y of 00:00: [place] 00 Medical Branch Unspecifie Unspecifie Disease Active U nivers d 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 00:00: [place] (congestiv (congestiv 00 Me dical e) and e) and Branch diastolic diastolic (congestiv (congestiv e) heart e) heart failure failure History of History of Disease Active U nivpeter ischemic ischemic 09-14 ity of stroke stroke 00:00: [place] 00 Medical Branch Acute Acute Disease Recurre [facility] ischemic ischemic nce 09-14 LuMeritful stroke stroke 00:00: [place] [address] Center Received Received Disease Active [facility] tissue tissue 09-14 Meritful plasminoge plasminoge 00:00: Me dical n n 00 Center activator activator (t-PA) (t-PA) less than less than 24 hours 24 hours prior to prior to arrival arrival THIRD THIRD Diagnosis Active 2018-09-14 Mem oria [employer] 09-14 14:59:00 l BILLING BILLING 00:00: Nilo Active 00 09/14/2018 [facility] Chronic Chronic Problem Active 2022-07-27 Me moria systolic systolic 09:44:29 l heart heart Matthews failure failure (disorder) (disorder) Active Problem 07/27/2022 [facility] NON-ST NON-ST Diagnosis Active 2022-07-30 Me moria ELEVATION ELEVATION 21:49:00 l (NSTEMI) (NSTEMI) Benigno knox MYOCARDIAL MYOCARDIAL INF INF Active [facility] D72.818 - D72.818 - Diagnosis Active 2021-12-15 Memoria OTHER OTHER 11:42:00 l DECREASED DECREASED Herm francy WHITE WHITE BLOOD CE BLOOD CE Active [facility] ENCNTR FOR ENCNTR Diagnosis Active 2022-07-30 Memoria ADJUST AND FOR ADJUST 21:49:00 l MGMT OF AND MGMT Nilo AUTOMATIC OF AUTOMATIC Active [facility] CHEST CHEST Diagnosis Active 2022-07-30 Me moria PAIN, PAIN, 21:49:00 l UNSPECIFIE UNSPECIFIE He rmann D D Active [facility] SINGLE SINGLE Diagnosis Active 2022-07-17 Me moria LIVEBORN LIVEBORN 15:34:00 l , , Nilo DELIVERED DELIVERED BY ABIGAIL BY ABIGAIL Active [facility] Nilo Non-ST Non-ST Problem 2022-07-27 Antelmo mateusz elevation elevation 09:44:29 l (NSTEMI) (NSTEMI) Benigno n myocardial myocardial infarction infarction 3 [facility] Allergies, Adverse Reactions, Alerts Allergy Allergy Status [...] Medical Branch Iodine Propensi Active Unknown - 2022-0 Unive rs And ty to See comments [...] Stop Date Source Other G[facility] Center Social History Social Habit Start Date Stop Date Quantity Comments Source History SDOH Social Unive rsity of Connections [facility] Med ical Together Branch History SDOH Social Unive rsity of Connections [facility] Medical Branch History SDOH Social Unive rsity of Connections [place] [facility] Membership Branch History SDOH Social Unive rsity of Connections [place] [facility] Meetings Branch Gender identity [facility] [place] [facility] Sexual orientation Univer [facility] [place] [facility] Education 2022-08-16 2022-08-16 18 University of 00:00:00 00:00:00 [place] [facility] Social History 2022-07-16 2022-07-16 [facility] sánchez 02:22:42 02:22:42 History SDOH Social 2022-07-13 2022-07-13 5 Unive rsity of Connections Phone 00:00:00 00:00:00 [facility] edical Branch History SDOH Social 2022-07-13 2022-07-13 7 Unive rsity of Connections Living 00:00:00 00:00:00 [place] [facility] History SDOH 2022-07-13 2022-07-13 4 University o f Physical Activity 00:00:00 [facility] History SDOH 2022-07-13 2022-07-13 3 University o f Physical Activity 00:00:00 00:00:00 [place] M edical MPS Branch History SDWV 2022-07-13 2022-07-13 5 University o f Financial 00:00:00 00:00:00 [place] [facility] History SDWV Food 2022-07-13 2022-07-13 1 Univers ity of Worry 00:00:00 00:00:00 [place] [facility] History SDWV Food 2022-07-13 2022-07-13 1 Univers ity of Scarcity 00:00:00 00:00:00 [place] [facility] History SDWV 2022-07-13 2022-07-13 2 University o f Transport Med 00:00:00 00:00:00 [place] Medic al Branch History [facility] 2022-07-13 2022-07-13 2 University o f Transport Non-Med 00:00:00 00:00:00 [place] M edical Branch History [facility] 2022-07-13 2022-07-13 2 [place] o [facility] Unable to 00:00:00 00:00:00 [place] M edical Pay Branch History [facility] 2022-07-13 2022-07-13 1 University o f Housing Places 00:00:00 00:00:00 [place] Medi ralph Lived Branch History [facility] 2022-07-13 2022-07-13 2 [place] [facility] Homeless 00:00:00 00:00:00 [place] Me dical Last Year Branch Tobacco use and 2022-07-11 2022-07-11 Smokeless Universit y of exposure 00:00:00 00:00:00 tobacco non-user [place] Me dical Branch Exposure to 2022-06-15 2022-06-25 Not sure University of SARS-CoV-2 (event) 00:00:00 14:15:00 [facility] Branch History of Social 2022-02-06 2022-02-06 Univers ity of function 00:00:00 00:00:[address] [facility] Alcohol intake 2018-09-20 2018-09-20 [facility] Center (finding) History [facility] 2018-09-14 2018-09-[address] [facility] Alcohol Frequency 00:00:00 00:00:00 Medical Center History [facility] 2018-09-14 2018-09-14 1 RYAN Pal[place] Alcohol Std Drinks 00:00:00 00:00:00 Medica l Center History [facility] 2018-09-14 2018-09-14 1 RYAN [place] Alcohol Binge 00:00:00 00:00:[address] Sex [birth year] At [birth year] RYAN Duvals 00:00:00 00:00:00 Medical Center Smoking Status Start Date Stop Date Source Never smoked tobacco [facility] Medications Ordered Filled Start Stop Current Ordering Indication Dosage Frequency Signature Comments Components Source Medication Medication Date Date Medication? Clinician (SIG) Name Name metoprolol 2022-0 Yes 50mg 50 mg, Unive rs succinate 7-11 Oral, ity of XL (TOPROL 14:00: DAILY, [place] XL) tablet 00 First dose Med ical 50 mg on Wed08/18/22 at 0900, Until Discontinu ed, Routine metoprolol 2022-0 Yes [id number] 50mg Take 1 Univers succinate 7-11 tablet by ity o f XL 50 mg 24 00:00: mouth [place] tablet 00 the Medical morning. Branch KCL 10 mEq 2022-0 Yes 10meq Take 1 Univ ers tablet 7-10 tablet by ity of 20:15: mouth in [place] [address] the Medical morning Branch and 1 tablet in the evening. docusate 2022-0 Yes 100mg Take 1 Univer s 100 mg 7-10 capsule by ity of capsule 20:15: mouth in [place] [address] the Medical morning. Branch lisinopriL 0 Yes 5mg 5 mg, Univer s (PRINIVIL,Z 7-10 Oral, ity of ESTRIL) 17:45: DAILY, [place] tablet 5 mg 00 First dose Me dical on Wed08/17/22 at 1245, Until Discontinu ed, Routine ezetimibe 2022-0 Yes 10mg 10 mg, Univer s (ZETIA) 7-10 Oral, ity of tablet 10 14:00: DAILY, [place] mg 00 First dose Medical on Wed08/17/22 at 0900, Until Discontinu ed, Routine rosuvastati 2022-0 Yes 10mg 10 mg, Univ ers n (CRESTOR) 7-10 Oral, QHS, it y of tablet 10 02:00: [place] mg 00 on [facility] 08/16/22 at Branch 2100, Until Discontinu ed, Routine metoprolol 2022- No 25mg 25 mg, Univ ers tartrate 08-17 07-10 Oral, BID, ity of (LOPRESSOR) 01:00: 17:34 First dose [place] tablet 25 00 :05 on [facility] mg 08/16/22 at Branch 2000, Until Discontinu ed, Routine lisinopriL Yes [id number] 5mg Take 1 Univers 5 mg tablet 710 tablet by ity of 00:00: mouth in [place] 00 the Medical morning. [place] sennosides Yes 8.6mg 8.6 mg, Uni vers (SENOKOT) 08-16 Oral, ity of tablet 8.6 19:15: DAILY, [place] mg 00 First dose Medical on [facility] 08/16/22 at 1415, Until Discontinu ed, Routine polyethylen Yes 17g 17 g, Unive rs e glycol 08-16 Oral, ity of 3350 powder 19:15: DAILY, [place] 17 g 00 First dose Medical on [facility] 08/16/22 at 1415, Until Discontinu ed, Routine bisacodyL Yes 10mg 10 mg, Univer s (DULCOLAX) 08-16 Rectal, ity of suppository 19:03: QHSPRN, Anthony as 10 mg 17 Starting Medical on [facility] 08/16/22 at 1403, Until Discontinu ed, Routine, Constipati on heparin Yes 0U/h 0-2,150 Univers 25,000 08-16 Units/hr ity of Units/250 17:32: (0-21.5 [place] mL 01 mL/hr), IV Medical (Premixed Infusion, Bran h Bag) in TITRATE, 0.45 % NS Parameters in Admin. Instr., Starting on [place] 08/16/22 at 1232
In itiate dosing:&nb sp; & nbsp;&nbsp ; -Patient 83 kg or under: 950 Units/hr (Calculate d dose at 12 units/kg/h [...] Rang e, Dosing and Testing: &nbs p;FOR [facility], [facility] AND [facility] ONLY &nbs p; - aPTT < [...] ADJUST INITIAL BOLUS OR INITIAL INFUSION RATE.
heparin 0 Yes 3000U FOR Univers (1,000 08-16 REBOLUSING ity of unit/mL, 10 17:31: , Starting [place] mL vial) 57 on [facility] for 08/16/22 at Branch Rebolusing 1231, Until Discontinu ed, Routine
Dosing based on aPPT testing parameters (refer to continuous heparin drip order).
traZODone Yes 50mg 50 mg, Univer s (DESYREL) 08-16 Oral, ity of tablet 50 17:03: QHSPRN, [place] mg 17 Starting Medical on [place] Branch 08/16/22 at 1203, Until Discontinu ed, Routine, Insomnia atorvastati Yes 80 mg = 2 M emoria n 40 mg 6-13 tab, PO, l oral tablet 16:10: Bedtime, # Matthews 00 60 tab, 1 Refill(s), Pharmacy: [facility] #[id number], 182.88, cm, 07/16/22 18:26:00 CDT, Height, 75, kg, 07/16/22 18:26:00 CDT, Weight QUEtiapine Yes 50 mg = 2 Me moria 25 mg oral 6-13 tab, PO, l tablet 16:10: Bedtime, # Taisha nn 00 60 tab, 1 Refill(s), Pharmacy: [facility] #[id number], 182.88, cm, 07/16/22 18:26:00 CDT, Height, 75, kg, 07/16/22 18:26:00 CDT, Weight SEROquel No Notes: Memoria 6-13 (Same as: l 02:00: SEROquel) Nilo 00 Crestor No 10 mg, 1 Memori [...] Memoria 6-10 Same as: l 02:00: Eliquis Matthews 00 potassium No /= 14 Memoria chloride 20 6-09 Palauan, l mEq oral 14:17: june Nilo tablet, 00 dissolve extended each 20 release mEq tablet (KCL) in 4 oz of water. Allow about 2 minutes for the tablets to disintegra te. Stir before giving to prepare slurry and administer . Please exclude patient's with feeding tube less than 14 Palauan (Dobhoff, J-tube, etc) and pediatric and patients. magnesium No Notes: Memori a oxide 6-09 (Same as: l 14:17: Mag-Ox Nilo 00 400) Magnesium oxide 991ow=282o g elemental magnesium Dose=____m g magnesium oxide (___mg elemental magnesium) atorvastati No Notes: Antelmo mateusz n 07-17 (Same as: l 02:00: Lipitor) [place] trazodone Yes 50 mg = 1 Mem oria 50 mg oral 6-08 tab, PO, 0 l tablet 18:57: Refill(s) Benigno n 00 metoprolol Yes 25 mg = 1 Me moria tartrate 25 6-08 tab, PO, l mg oral 18:56: BID, 0 [place] tablet 00 Refill(s) ezetimibe Yes 10 mg = 1 Mem oria 10 mg oral 6-08 tab, PO, l tablet 18:56: Daily, 0 Matthews 00 Refill(s) Crestor 10 Yes 10 mg = 1 Me moria mg oral 608 tab, PO, l tablet 18:56: Bedtime, 0 Taisha nn 00 Refill(s) Eliquis 5 Yes 5 mg = 1 Antelmo mateusz mg oral 08 tab, PO, l tablet 18:55: BID, 0 Matthews 00 Refill(s) Metoprolol No Notes: Memor ia Succinate 07-16 (Same as: l ER 25 mg 16:57: Toprol XL) Her becerril oral 00 Do Not tablet, Crush extended release enoxaparin No Notes: Memor ia 07-16 Nurse to l 13:00: ensure Nilo documentat ion of patient education per anticoagul ation policy. (Same as: Lovenox) nitroglycer No Notes: Antelmo mateusz in SL Tab 07-16 (Same l 03:42: as:Nitroqu Nilo 00 ick, Nitrostat) "Do Not Crush" Sublingual tablet Tylenol No Notes: Do Memor ia 07-16 not exceed l 03:42: 4 gm/day. Nilo (Same as: Tylenol) Everly 5/325 No Notes: Antelmo mateusz oral tablet 07-16 (Same as: l 03:42: Everly Nilo 00 325/5) Do not exceed 4gm/day of acetaminop hen. morphine No 2 mg, 1 Memori a Sulfate 6-08 mL, Route: l 03:42: IVP, Drug form: SOLN, Q4H, Dosing Weight 75, kg, PRN Pain Score 7-10, Start date: 07/15/22 22:42:00 CDT, Duration: 30 day, Stop date: 08/14/22 22:41:00 CDT, 0 Zofran No Notes: Memoria 6-08 (Same as: l 03:42: Zofran) MEDICATION WASTE Product Size: 4 mg Product [...] Perles 6-08 (Same As: l 03:42: Tessalon Perles) "Do Not Crush" dextrometho No Notes: Antelmo mateusz rphan-guaiF 6-08 (dextromet l ENesin 20 03:42: horphan-gu He rmann mg-200 00 aifenesin mg/10 mL 10-100mg/5 oral liquid ml 10 ml oral SOLN ud) (Same as: Robitussin DM) Benadryl No Notes: Memoria 6-08 (Same as: l 03:42: Benadryl) albuterol-i No Notes: Antelmo mateusz pratropium 6-08 (Same as: l 2.5-0.5 mg 03:42: Duoneb) solution simethicone No Notes: Antelmo mateusz 6-08 (Same as: l 03:42: Mylicon) aspirin 81 No Notes: Memor ia mg tablet, 08 Take with l chewable 03:41: food. KCL 10 mEq 2022-0 Yes 10meq Take 1 Univ ers tablet 6-06 tablet by ity of 17:03: mouth in [address] and 1 tablet in the evening. docusate 2023-0 Yes 100mg Take 1 Univer s 100 mg 6-06 capsule by ity of capsule 17:03: mouth in [place] [address] the [facility] morning. Branch KCL 10 mEq 3-0 Yes 10meq Take 1 Univ ers tablet 6-06 tablet by ity of 17:03: mouth in [address] Branch and 1 tablet in the evening. docusate 2023-0 Yes 100mg Take 1 Univer s 100 mg 6-06 capsule by ity of capsule 17:03: mouth in [place] [address] the [facility] morning. Branch KCL 10 mEq 2023-0 Yes 10meq Take 1 Univ ers tablet 6-06 tablet by ity of 17:03: mouth in [address] and 1 tablet in the evening. docusate 2023-0 Yes 100mg Take 1 Univer s 100 mg 6-06 capsule by ity of capsule 17:03: mouth in [place] [address] the [facility] morning. Branch KCL 10 mEq 3-0 Yes 10meq Take 1 Univ ers tablet 6-06 tablet by ity of 17:03: mouth in [place] [address] the Medical morning Branch and 1 tablet in the evening. docusate 2023-0 Yes 100mg Take 1 Univer s 100 mg 6-06 capsule by ity of capsule 17:03: mouth in [place] [address] the Medical morning. Branch KCL 10 mEq 2023-0 Yes 10meq Take 1 Univ ers tablet 6-06 tablet by ity of 17:03: mouth in [place] [address] the [facility] morning Branch and 1 tablet in the evening. docusate 2023-0 Yes 100mg Take 1 Univer s 100 mg 6-06 capsule by ity of capsule 17:03: mouth in [place] [address] the Medical morning. Branch KCL 10 mEq 2023-0 Yes 10meq Take 1 Univ ers tablet 6-06 tablet by ity of 17:03: mouth in [place] [address] the [facility] morning Branch and 1 tablet in the evening. docusate 2023-0 Yes 100mg Take 1 Univer s 100 mg 6-06 capsule by ity of capsule 17:03: mouth in [place] [address] the Medical morning. Branch KCL 10 mEq 2023-0 Yes 10meq Take 1 Univ ers tablet 6-06 tablet by ity of 17:03: mouth in [place] [address] the [facility] morning Branch and 1 tablet in the evening. docusate 2023-0 Yes 100mg Take 1 Univer s 100 mg 6-06 capsule by ity of capsule 17:03: mouth in [place] [address] the Medical morning. Branch KCL 10 mEq 2023-0 Yes 10meq Take 1 Univ ers tablet 6-06 tablet by ity of 17:03: mouth in [place] [address] the [facility] morning Branch and 1 tablet in the evening. docusate 2023-0 Yes 100mg Take 1 Univer s 100 mg 6-06 capsule by ity of capsule 17:03: mouth in [place] [address] the Medical morning. Branch KCL 10 mEq 2023-0 Yes 10meq Take 1 Univ ers tablet 6-06 tablet by ity of 17:03: mouth in [place] [address] the [facility] morning Branch and 1 tablet in the evening. docusate 2023-0 Yes 100mg Take 1 Univer s 100 mg 6-06 capsule by ity of capsule 17:03: mouth in [place] [address] the Medical morning. Branch KCL 10 mEq 2023-0 Yes 10meq Take 1 Univ ers tablet 6-06 tablet by ity of 17:03: mouth in [address] Branch and 1 tablet in the evening. docusate 2023-0 Yes 100mg Take 1 Univer s 100 mg 6-06 capsule by ity of capsule 17:03: mouth in [address] morning. Branch KCL 10 mEq 2023-0 Yes 10meq Take 1 Univ ers tablet 6-06 tablet by ity of 17:03: mouth in [address] Branch and 1 tablet in the evening. docusate 2023-0 Yes 100mg Take 1 Univer s 100 mg 6-06 capsule by ity of capsule 17:03: mouth in [place] [address] the [facility] morning. Branch KCL 10 mEq 2023-0 Yes 10meq Take 1 Univ ers tablet 6-06 tablet by ity of 17:03: mouth in [address] Branch and 1 tablet in the evening. docusate 2023-0 Yes 100mg Take 1 Univer s 100 mg 6-06 capsule by ity of capsule 17:03: mouth in [address] morning. Branch KCL 10 mEq 2023-0 Yes 10meq Take 1 Univ ers tablet 6-06 tablet by ity of 17:03: mouth in [address] and 1 tablet in the evening. docusate 2023-0 Yes 100mg Take 1 Univer s 100 mg 6-06 capsule by ity of capsule 17:03: mouth in [place] [address] the [facility] morning. Branch KCL 10 mEq 2023-0 Yes 10meq Take 1 Univ ers tablet 6-06 tablet by ity of 17:03: mouth in [address] and 1 tablet in the evening. docusate 2023-0 Yes 100mg Take 1 Univer s 100 mg 6-06 capsule by ity of capsule 17:03: mouth in [place] [address] the [facility] morning. Branch KCL 10 mEq 2023-0 Yes 10meq Take 1 Univ ers tablet 6-06 tablet by ity of 17:03: mouth in [address] Branch and 1 tablet in the evening. docusate 2023-0 Yes 100mg Take 1 Univer s 100 mg 6-06 capsule by ity of capsule 17:03: mouth in [place] [address] the [facility] morning. Branch apixaban 3-0 Yes 5mg 5 mg, Univers (ELIQUIS) 6-05 Oral, BID, ity of tablet 5 mg 13:00: First dose [place] on Wed/5/23 at Branch 0800, Until Discontinu ed, Routine
Indicatio ns: Non-Valvul ar Atrial Fibrillati on magnesium 2022- No 4g 4 g, IV Univ ers sulfate in 07-13 Piggyback, it y of water 4 12:30: 14:14 at 25 [place] gram/50 mL 00 :00 mL/hr Medical (8 %) IV Administer Branc h Piggyback 4 over 120 g Minutes, ONCE, 1 dose, On [facility] 07/13/22 at 0730, Routine KCL 2022- No 40meq 40 mEq, Univers (KLOR-CON 07-13 Oral, ity of M20) tablet 12:30: 14:00 ONCE, 1 [place] 40 mEq 00 :00 dose, On Medical [facility] 07/13/22 Branch at 0730, Routine metoprolol Yes 25mg 25 mg, Unive rs tartrate 07-13 Oral, BID, ity o f (LOPRESSOR) 01:00: First dose [place] tablet 25 00 on [place] [facility] mg 07/12/22 at Branch 2000, Until Discontinu ed, Routine LORazepam 2022- No .5mg 0.5 mg, Univ ers (ATIVAN) 07-12- Slow IV ity of injection 16:30: 17:02 Push, [place] 0.5 mg 00 :00 ONCE, 1 Medical dose, On [facility] 07/12/22 at 1130, Routine sennosides- 0 Yes 1{tbl} 1 tablet, Univers docusate 07-12 Oral, ity of sodium 14:00: DAILY, [place] (SENOKOT-S) 00 First dose Me dical 8.6-50 mg on [facility] per tablet 07/12/22 at 1 tablet 0900, Until Discontinu ed, Routine polyethylen 0 Yes 17g 17 g, Unive rs e glycol 07-12 Oral, ity of 3350 powder 14:00: DAILY, [place] 17 g 00 First dose Medical on [place] Branch 07/12/22 at 0900, Until Discontinu ed, Routine ezetimibe Yes 10mg 10 mg, Univer s (ZETIA) 6-04 Oral, ity of tablet 10 14:00: DAILY, [place] mg 00 First dose Medical on [facility] 07/12/22 at 0900, Until Discontinu ed, Routine QUEtiapine Yes 25mg 25 mg, Unive rs (SEROQUEL) 04 Oral, BID, ity of tablet 25 13:30: First dose [place] mg 00 on [facility] 07/12/22 at Branch 0830, Until Discontinu ed, Routine magnesium 2022- No 400mg 400 mg, Uni vers oxide 07-12 Oral, ity of (MAG-OX 11:15: 11:41 ONCE, 1 [place] 400) tablet 00 :00 dose, On Medi ralph 400 mg [place] 07/12/22 Branch at 0615, Routine KCL 2022- No 20meq 20 mEq, Univers (KLOR-CON 07-12 Oral, ity of M20) tablet 11:15: 11:41 ONCE, 1 [place] 20 mEq 00 :00 dose, On Medical [place] 07/12/22 Branch at 0615, Routine rosuvastati Yes 10mg 10 mg, Univ ers n (CRESTOR) 07-12 Oral, QHS, it y of tablet 10 02:00: First dose [place] mg 00 on [facility] 07/11/22 at Branch 2100, Until Discontinu ed, Routine HEPARIN 2022- No 4000U 4,000 Univers SODIUM 07-12-04 Units, IV ity of (PORCINE) 01:15: 02:32 Push, [place] 1,000 00 :00 ONCE, 1 Medical UNIT/ML dose, On Branch BOLUS [facility] 07/11/22 ORDER SET at 2015, RERE heparin 2022- No 0U/h 0-2,150 Univer s 25,000 07-12 06-05 Units/hr ity of Units/250 01:13: 10:19 (0-21.5 [place] mL 31 :30 mL/hr), IV Medical (Premixed Infusion, Branc h Bag) in TITRATE, 0.45 % NS Parameters in Admin. Instr., Starting on [facility] 07/11/22 at 2012
In itiate dosing:&nb sp; [...] Rang e, Dosing and Testing: &nbs p;FOR [facility] ONLY &nbs p; - aPTT [...] INITIAL BOLUS OR INITIAL INFUSION RATE.
traZODone Yes 50mg 50 mg, Univer s (DESYREL) 07-12 Oral, ity of tablet 50 01:05: QHSPRN, [place] mg 48 Starting Medical on Sat Branch 07/11/22 at 2005, Until Discontinu ed, Routine, Insomnia acetaminoph Yes 650mg 650 mg, Un marcie en 07-12 Oral, ity of (TYLENOL) 00:10: Q6HPRN, [place] tablet 650 26 Starting Medic al mg on Sat Branch 07/11/22 at 1910, Until Discontinu ed, Routine, Pain (scale 1-3) KCL 10 mEq 3-0 Yes 10meq Take 1 Univ ers tablet -03 tablet by ity of 20:06: mouth in [place] 12 the Medical morning Branch and 1 tablet in the evening. docusate 2023-0 Yes 100mg Take 1 Univer s 100 mg 07-11 capsule by ity of capsule 19:55: mouth in [place] 01 the Medical morning. Branch LORazepam 2022-0 2023- No .5mg 0.5 mg, Univ ers (ATIVAN) 07-11 Slow IV ity of injection 19:45: 19:53 Push, [place] 0.5 mg 00 :00 ONCE, 1 Medical dose, On Branch 07/11/22 at 1445, STAT KCL 10 mEq 3-0 Yes 10meq Take 1 Univ ers tablet 6-02 tablet by ity of 08:18: mouth in [place] 30 the Medical morning Branch and 1 tablet in the evening. KCL 10 mEq 3-0 Yes 10meq Take 1 Univ ers tablet 6-02 tablet by ity of 08:18: mouth in [place] 30 the Medical morning Branch and 1 tablet in the evening. KCL 10 mEq 2023-0 Yes 10meq Take 1 Univ ers tablet 6-02 tablet by ity of 08:18: mouth in [place] 30 the Medical morning Branch and 1 tablet in the evening. KCL 10 mEq 2023-0 Yes 10meq Take 1 Univ ers tablet 6-02 tablet by ity of 08:18: mouth in [place] 30 the Medical morning Branch and 1 tablet in the evening. KCL 10 mEq 2023-0 Yes 10meq Take 1 Univ ers tablet 6-02 tablet by ity of 08:18: mouth in [place] 30 the Medical morning Branch and 1 tablet in the evening. LACTULOSE 2022-0 Yes [id number] TAKE 15 ML Univers 10 gram/15 -02 BY MOUTH ity o f mL solution 00:00: TWICE [place] 00 DAILY Medical NEEDED FOR Branch CONSTIPATI ON ciprofloxac 3-0 Yes [id number] 250mg Take 1 Univers in HCl 250 -02 tablet by ity of mg tablet 00:00: mouth [place] 00 every 12 Medical (twelve) Branch hours. ciprofloxac 3-0 Yes [id number] 250mg Take 1 Univers in HCl 250 -02 tablet by ity of mg tablet 00:00: mouth [place] 00 every 12 Medical (twelve) Branch hours. ciprofloxac 3-0 Yes [id number] 250mg Take 1 Univers in HCl 250 6-02 tablet by ity of mg tablet 00:00: mouth [place] 00 every 12 Medical (twelve) Branch hours. ciprofloxac 3-0 Yes [id number] 250mg Take 1 Univers in HCl 250 6-02 tablet by ity of mg tablet 00:00: mouth [place] 00 every 12 Medical (twelve) Branch hours. ciprofloxac 3-0 2023- No [id number] 250mg Take 1 Univers in HCl 250 6-02 06-06 tablet by ity of mg tablet 00:00: 00:00 mouth [place] 00 :00 every 12 Medical (twelve) Branch hours. ELIQUIS 5 2022-0 Yes [id number] TAKE 1 U nivers mg tablet 5-22 TABLET BY ity o f 00:00: MOUTH IN [place] 00 THE Medical MORNING Branch AND IN THE EVENING FOR ATRIAL FIBRILLATI ON ELIQUIS 5 2022-0 Yes [id number] TAKE 1 U nivers mg tablet 5-22 TABLET BY ity o f 00:00: MOUTH IN [place] 00 THE Medical MORNING Branch AND IN THE EVENING FOR ATRIAL FIBRILLATI ON ELIQUIS 5 2022-0 Yes [id number] TAKE 1 U nivers mg tablet 5-22 TABLET BY ity o f 00:00: MOUTH IN [place] 00 THE Medical MORNING Branch AND IN THE EVENING FOR ATRIAL FIBRILLATI ON ELIQUIS 5 2022-0 Yes [id number] TAKE 1 U nivers mg tablet 5-22 TABLET BY ity o f 00:00: MOUTH IN [place] 00 THE Medical MORNING Branch AND IN THE EVENING FOR ATRIAL FIBRILLATI ON ELIQUIS 5 2022-0 Yes [id number] TAKE 1 U nivers mg tablet 5-22 TABLET BY ity o f 00:00: MOUTH IN [place] 00 THE Medical MORNING Branch AND IN THE EVENING FOR ATRIAL FIBRILLATI ON ELIQUIS 5 2022-0 Yes [id number] TAKE 1 U nivers mg tablet 5-22 TABLET BY ity o f 00:00: MOUTH IN [place] 00 THE Medical MORNING Branch AND IN THE EVENING FOR ATRIAL FIBRILLATI ON ELIQUIS 5 2022-0 Yes [id number] TAKE 1 U nivers mg tablet 5-22 TABLET BY ity o f 00:00: MOUTH IN [place] 00 THE Medical MORNING Branch AND IN THE EVENING FOR ATRIAL FIBRILLATI ON ELIQUIS 5 2022-0 Yes [id number] TAKE 1 U nivers mg tablet 5-22 TABLET BY ity o f 00:00: MOUTH IN [place] 00 THE Medical MORNING Branch AND IN THE EVENING FOR ATRIAL FIBRILLATI ON ELIQUIS 5 2022-0 Yes [id number] TAKE 1 U nivers mg tablet 5-22 TABLET BY ity o f 00:00: MOUTH IN [place] 00 THE Medical MORNING Branch AND IN THE EVENING FOR ATRIAL FIBRILLATI ON ELIQUIS 5 2022-0 Yes [id number] TAKE 1 U nivers mg tablet 5-22 TABLET BY ity o f 00:00: MOUTH IN [place] 00 THE Medical MORNING Branch AND IN THE EVENING FOR ATRIAL FIBRILLATI ON ELIQUIS 5 2022-0 Yes [id number] TAKE 1 U nivers mg tablet 5-22 TABLET BY ity o f 00:00: MOUTH IN [place] 00 THE Medical MORNING Branch AND IN THE EVENING FOR ATRIAL FIBRILLATI ON ELIQUIS 5 2022-0 Yes [id number] TAKE 1 U nivers mg tablet 5-22 TABLET BY ity o f 00:00: MOUTH IN [place] 00 THE Medical MORNING Branch AND IN THE EVENING FOR ATRIAL FIBRILLATI ON ELIQUIS 5 2022-0 Yes [id number] TAKE 1 U nivers mg tablet 5-22 TABLET BY ity o f 00:00: MOUTH IN [place] 00 THE Medical MORNING Branch AND IN THE EVENING FOR ATRIAL FIBRILLATI ON ELIQUIS 5 2022-0 Yes [id number] TAKE 1 U nivers mg tablet 5-22 TABLET BY ity o f 00:00: MOUTH IN [place] 00 THE Medical MORNING Branch AND IN THE EVENING FOR ATRIAL FIBRILLATI ON ELIQUIS 5 2022-0 Yes [id number] TAKE 1 U nivers mg tablet 5-22 TABLET BY ity o f 00:00: MOUTH IN [place] 00 THE Medical MORNING Branch AND IN THE EVENING FOR ATRIAL FIBRILLATI ON ELIQUIS 5 2022-0 Yes [id number] TAKE 1 U nivers mg tablet 5-22 TABLET BY ity o f 00:00: MOUTH IN [place] 00 THE Medical MORNING Branch AND IN THE EVENING FOR ATRIAL FIBRILLATI ON ELIQUIS 5 2022-0 Yes [id number] TAKE 1 U nivers mg tablet 5-22 TABLET BY ity o f 00:00: MOUTH IN [place] 00 THE Medical MORNING Branch AND IN THE EVENING FOR ATRIAL FIBRILLATI ON ELIQUIS 5 202-0 Yes [id number] TAKE 1 U nivers mg tablet 5-22 TABLET BY ity o f 00:00: MOUTH IN [place] 00 THE Medical MORNING Branch AND IN THE EVENING FOR ATRIAL FIBRILLATI ON ELIQUIS 5 3-0 Yes [id number] TAKE 1 U nivers mg tablet 5-22 TABLET BY ity o f 00:00: MOUTH IN [place] 00 THE Medical MORNING Branch AND IN THE EVENING FOR ATRIAL FIBRILLATI ON ELIQUIS 5 2022-0 Yes [id number] TAKE 1 U nivers mg tablet 5-22 TABLET BY ity o f 00:00: MOUTH IN [place] 00 THE Medical MORNING Branch AND IN THE EVENING FOR ATRIAL FIBRILLATI ON ELIQUIS 5 3-0 Yes [id number] TAKE 1 U nivers mg tablet 5-22 TABLET BY ity o f 00:00: MOUTH IN [place] 00 THE Medical MORNING Branch AND IN THE EVENING FOR ATRIAL FIBRILLATI ON ELIQUIS 5 2022-0 Yes [id number] TAKE 1 U nivers mg tablet 5-22 TABLET BY ity o f 00:00: MOUTH IN [place] 00 THE Medical MORNING Branch AND IN THE EVENING FOR ATRIAL FIBRILLATI ON ELIQUIS 5 3-0 2023- No [id number] TAKE 1 Univers mg tablet 5-22 07-09 TABLET BY ity of 00:00: 00:00 MOUTH IN [place] 00 :00 THE Medical MORNING Branch AND IN THE EVENING FOR ATRIAL FIBRILLATI ON lactulose 3-0 Yes [id number] 15mL Take 15 mL Univers 10 gram/15 5-18 by mouth 2 ity of mL solution 00:00: (two) [place] 00 times Medical daily as Branch needed for Constipati on. lactulose 2023-0 Yes [id number] 15mL Take 15 mL Univers 10 gram/15 5-18 by mouth 2 ity of mL solution 00:00: (two) [place] 00 times Medical daily as Branch needed for Constipati on. lactulose 2023-0 Yes [id number] 15mL Take 15 mL Univers 10 gram/15 5-18 by mouth 2 ity of mL solution 00:00: (two) [place] 00 times Medical daily as Branch needed for Constipati on. lactulose 2023-0 Yes [id number] 15mL Take 15 mL Univers 10 gram/15 5-18 by mouth 2 ity of mL solution 00:00: (two) [place] 00 times Medical daily as Branch needed for Constipati on. lactulose 2022-0 Yes [id number] 15mL Take 15 mL Univers 10 gram/15 5-18 by mouth 2 ity of mL solution 00:00: (two) [place] 00 times Medical daily as Branch needed for Constipati on. lactulose 2022-0 3- No [id number] 15mL Take 15 mL Univers 10 gram/15 5-18 06-02 by mouth 2 it y of mL solution 00:00: 00:00 (two) [place] 00 :00 times Medical daily as Branch needed for Constipati on. lactulose 2022-0 2023- No [id number] 15mL Take 15 mL Univers 10 gram/15 5-18 06-02 by mouth 2 it y of mL solution 00:00: 00:00 (two) [place] 00 :00 times Medical daily as Branch needed for Constipati on. lactulose 2022-0 3- No [id number] 15mL Take 15 mL Univers 10 gram/15 5-18 -02 by mouth 2 it y of mL solution 00:00: 00:00 (two) [place] 00 :00 times Medical daily as Branch needed for Constipati on. tamsulosin 2022-0 3- No [id number] .4mg Take 1 Univers 0.4 mg 24 5-18 05-18 capsule by ity of hr capsule 00:00: 00:00 mouth in [place] 00 :00 the Medical morning. Branch tamsulosin 2022-0 3- No [id number] .4mg Take 1 Univers 0.4 mg 24 5-18 05-18 capsule by ity of hr capsule 00:00: 00:00 mouth in [place] 00 :00 the Medical morning. Branch tamsulosin 2022-0 3- No [id number] .4mg Take 1 Univers 0.4 mg 24 5-18 05-18 capsule by ity of hr capsule 00:00: 00:00 mouth in [place] 00 :00 the Medical morning. Branch KCL 10 mEq 2022-0 Yes 10meq Take 1 Univ ers tablet 3-25 tablet by ity of 17:27: mouth in [place] 50 the Medical morning Branch and 1 [...] tablet by ity of 17:27: mouth in [place] 50 the Medical morning Branch and 1 tablet in the evening. docusate 3-0 Yes 100mg Take 100 Univ ers (COLACE) 3-25 mg by ity of 100 mg 17:27: mouth [place] capsule 50 daily. Medical Branch KCL 10 mEq 3-0 Yes 10meq Take 1 Univ ers tablet 3-25 tablet by ity of 17:27: mouth in [place] 50 the Medical morning Branch and 1 [...] tablet by ity of 17:27: mouth in [place] 50 the Medical morning Branch and 1 [...] tablet by ity of 17:27: mouth in [place] 50 the Medical morning Branch and 1 tablet in the evening. docusate 2022-0 Yes 100mg Take 100 Univ ers (COLACE) 3-25 mg by ity of 100 mg 17:27: mouth [place] capsule 50 daily. Medical Branch KCL 10 mEq 2022-0 Yes 10meq Take 1 Univ ers tablet 3-25 tablet by ity of 17:27: mouth in [place] 50 the Medical morning Branch and 1 tablet in the evening. docusate 2022-0 Yes 100mg Take 100 Univ ers (COLACE) 3-25 mg by ity of 100 mg 17:27: mouth [place] capsule 50 daily. Medical Branch KCL 10 mEq 3-0 Yes 10meq Take 1 Univ ers tablet 3-25 tablet by ity of 17:27: mouth in [place] 50 the Medical morning Branch and 1 tablet in the evening. docusate 3-0 Yes 100mg Take 100 Univ ers (COLACE) 3-25 mg by ity of 100 mg 17:27: mouth [place] capsule 50 daily. Medical Branch KCL 10 mEq 3-0 Yes 10meq Take 1 Univ ers tablet 3-25 tablet by ity of 17:27: mouth in [place] 50 the Medical morning Branch and 1 [...] [place] mg 00 First dose Medical on [facility] 05/02/22 at 0900, Until Discontinu ed, Routine ezetimibe 2022-0 2023- No 10mg 10 mg, Unive rs (ZETIA) 05-02 Oral, ity of tablet 10 14:00: 00:27 DAILY, [place] mg 00 :50 First dose Medical on [facility] 05/02/22 at 0900, Until Discontinu ed, Routine ezetimibe 2022-0 2023- No 10mg 10 mg, Unive rs (ZETIA) 05-02 Oral, ity of tablet 10 14:00: 00:27 DAILY, [place] mg 00 :50 First dose Medical on [facility] 05/02/22 at 0900, Until Discontinu ed, Routine magnesium 2022-0 2023- No 2g 2 g, IV Univ ers sulfate in 05-02 Piggyback, it y of water 2 12:00: 17:55 Administer [place] gram/50 mL 00 :00 over 60 Medica l (4 %) Minutes, Branch infusion 2 ONCE, 1 g dose, On [facility] 05/02/22 at 0700, Routine magnesium 2022-0 2023- No 2g 2 g, IV Univ ers sulfate in 05-02 Piggyback, it y of water 2 12:00: 17:55 Administer [place] gram/50 mL 00 :00 over 60 Medica l (4 %) Minutes, Branch infusion 2 ONCE, 1 g dose, On [facility] 05/02/22 at 0700, Routine magnesium 2023-0 2023- No 2g 2 g, IV Univ ers sulfate in 05-02 Piggyback, it y of water 2 12:00: 17:55 Administer [place] gram/50 mL 00 :00 over 60 Medica l (4 %) Minutes, Branch infusion 2 ONCE, 1 g dose, On [facility] 05/02/22 at 0700, Routine acetaminoph 2022- No [...] ity of 1,000 mg in 05:00: 18:58 [facility], [place] NaCl 0.9% 00 :14 Q12H ABX, Medic al (NS) 250 mL 2 doses, Bran ch VIAL-nba player dose IV on Sat piggyback 05/02/22 at 0000, Last dose on 05/02/22 at 1200, Administer over 60 Minutes, 250 mL
Reas on for Anti-Infec tive: Surgical Prophylaxi s
Surgi ralph Prophylaxi s: Other (see Comments)< br>Duratio n of therapy: within 24 hours of surgery vancomycin No 1000mg 1,000 mg, Univers (VANCOCIN) 05-02 IV ity of 1,000 mg in 05:00: 19:30 Piggyback, [place] NaCl 0.9% 00 :00 Q12H ABX, Medic al (NS) 250 mL 2 doses, Bran ch VIAL-nba player dose IV on Sat piggyback 05/02/22 at [...] (NS) 250 mL 2 doses, Bran ch VIAL-nba player dose IV on Sat piggyback 05/02/22 at [...] dose [place] mg 00 on Wed [facility] 05/01/22 at [place] 2100, Until Discontinu ed, Routine rosuvastati No 10mg 10 mg, Uni vers n (CRESTOR) 05-0226 Oral, QHS, i ty of tablet 10 02:00: 00:27 First dose [place] mg 00 :50 on Wed [facility] 05/01/22 at [place] 2100, Until Discontinu ed, Routine rosuvastati 2022- No 10mg 10 mg, Uni vers n (CRESTOR) 05-0226 Oral, QHS, i ty of tablet 10 02:00: 00:27 First dose [place] mg 00 :50 on Wed [facility] 05/01/22 at [place] 2100, Until Discontinu ed, Routine traZODone No 50mg 50 mg, Unive rs (DESYREL) 05-02 Oral, ONCE ity of tablet 50 02:00: 02:19 NOW, 1 [place] mg 00 :00 dose, On Medical Wed [place] 05/01/22 at 2115, Routine traZODone 2022-0 2022- No 50mg 50 mg, Unive rs (DESYREL) 05-02-25 Oral, ONCE ity of tablet 50 02:00: 02:19 NOW, 1 [place] mg 00 :00 dose, On Medical Fri Branch 05/01/22 at 2115, Routine traZODone 2022-0 2022- No 50mg 50 mg, Unive rs (DESYREL) 05-02-25 Oral, ONCE ity of tablet 50 02:00: 02:19 NOW, 1 [place] mg 00 :00 dose, On Medical Fri Branch 05/01/22 at 2115, Routine metoprolol Yes 25mg 25 mg, Unive rs tartrate 3-25 Oral, BID, ity o f (LOPRESSOR) 01:00: First dose [place] tablet 25 00 on Fri Medical mg 05/01/22 at [place] 1999, Until Discontinu ed, Routine metoprolol 0 2022- No 25mg 25 mg, Univ ers tartrate 05-02-26 Oral, BID, ity of (LOPRESSOR) 01:00: 00:27 First dose [place] tablet 25 00 :50 on Fri Medical mg 05/01/22 at [place] 1999, Until Discontinu ed, Routine metoprolol 2022-0 2022- No 25mg 25 mg, Univ ers tartrate 05-02-26 Oral, BID, ity of (LOPRESSOR) 01:00: 00:27 First dose [place] tablet 25 00 :50 on Fri Medical mg 05/01/22 at [place] 1999, Until Discontinu ed, Routine doxycycline 2022-0 2023- No [id number] 100mg Take 1 Univers hyclate 100 3-25 04-02 capsule by i ty of mg capsule 00:00: 04:59 mouth [place] 00 :00 every 12 Medical (twelve) Branch hours for 7 days. doxycycline 3-0 2023- No [id number] 100mg Take 1 Univers hyclate 100 3-25 04-02 capsule by i ty of mg capsule 00:00: 04:59 mouth [place] 00 :00 every 12 Medical (twelve) Branch hours for 7 days. doxycycline 3-0 2023- No [id number] 100mg Take 1 Univers hyclate 100 3-25 04-02 capsule by i ty of mg capsule 00:00: 04:59 mouth [place] 00 :00 every 12 Medical (twelve) Branch hours for 7 days. doxycycline 2022- No [id number] 100mg Take 1 Univers hyclate 100 05-02-02 capsule by i ty of mg capsule 00:00: 04:59 mouth [place] 00 :00 every 12 Medical (twelve) Branch hours for 7 days. doxycycline 2022- No [id number] 100mg Take 1 Univers hyclate 100 05-02- capsule by i ty of mg capsule 00:00: 04:59 mouth [place] 00 :00 every 12 Medical (twelve) Branch hours for 7 days. doxycycline 2022- No [id number] 100mg Take 1 Univers hyclate 100 05-02- capsule by i ty of mg capsule [...] tablet 17:56: 00:00 tablet [place] 04 :00 [facility] Branch iodixanol 2022- No ONCE INTRA U nivers (VISIPAQUE 05-01 PROCEDURE, it y of 320-100 mL) 17:47: 18:25 Starting [place] injection 35 :50 on 05/01/22 at Branch 1247, Until Wed05/01/22 at 1325, Routine, CV Intraproce dure iodixanol 0 2022- No ONCE INTRA U nivers (VISIPAQUE 05-01 PROCEDURE, it y of 320-100 mL) 17:47: 18:25 Starting [place] injection 35 :50 on Fri Medical 05/01/22 at Branch 1247, Until Wed05/01/22 at 1325, Routine, CV Intraproce dure lidocaine 2022-0 3- No ONCE INTRA U nivers 1% (PF) 05-01 PROCEDURE, ity o f (XYLOCAINE) 16:06: 18:25 Starting [place] injection 44 :50 on Fri Medical 05/01/22 at Branch 1106, Until 05/01/22 at 1325, Routine, CV Intraproce dure lidocaine 2022-0 3- No ONCE INTRA U nivers 1% (PF) 05-01 PROCEDURE, ity o f (XYLOCAINE) 16:06: 18:25 Starting [place] injection 44 :50 on Fri Medical 05/01/22 at Branch 1106, Until Wed05/01/22 at 1325, Routine, CV Intraproce dure diphenhydrA 3-0 2023- No 25mg Take 1 Uni vers [...] last dose morning of procedure diphenhydrA 2022-0 3- No 25mg Take 1 Uni vers MINE 25 mg 04-30- tablet by ity of tablet 00:00: 04:59 mouth [place] 00 :00 every 12 Medical (twelve) Branch hours for 3 doses. Start morning before procedure. Take last dose morning of procedure famotidine 2022-0 2022- No 20mg Take 1 Univ ers 20 mg 04-30-26 tablet by ity of tablet 00:00: 04:59 [...] 40mg Take 2 Univ ers 20 mg 3-25 tablets by ity of tablet 00:00: 04:59 [...] 40mg Take 2 Univ ers 20 mg 3-25 tablets by ity of tablet 00:00: 04:59 [...] dose morning of procedure ezetimibe 0 Yes [id number] 10mg Take 1 U nivers 10 mg 2-17 tablet by ity of tablet 00:00: mouth in [place] 00 the Medical morning. Branch traZODone 0 Yes [id number] 50mg Take 1 Un marcie 50 mg 2-17 tablet by ity of tablet 00:00: mouth at [place] [address] bedtime as Medical needed for Branch Insomnia. mupirocin 2 0 Yes [id number] Apply to Univers % ointment 2-17 area(s) at ity of 00:00: bedtime as [place] [address] needed for Medical Rash. Branch rosuvastati 0 Yes [id number] 10mg Take 1 Univers n 10 mg 2-17 tablet by ity of tablet 00:00: mouth at [place] [address] bedtime. Medical Branch ezetimibe 0 Yes [id number] 10mg Take 1 U nivers 10 mg 2-17 tablet by ity of tablet 00:00: mouth in [place] 00 the Medical morning. Branch traZODone 0 Yes [id number] 50mg Take 1 Un marcie 50 mg 2-17 tablet by ity of tablet 00:00: mouth at [place] [address] bedtime as Medical needed for Branch Insomnia. mupirocin 2 0 Yes [id number] Apply to Univers % ointment 2-17 area(s) at ity of 00:00: bedtime as [place] [address] needed for Medical Rash. Branch rosuvastati 2022-0 Yes [id number] 10mg Take 1 Univers n 10 mg 2-17 tablet by ity of tablet 00:00: mouth at [place] [address] bedtime. Medical Branch ezetimibe 2022-0 Yes [id number] 10mg Take 1 U nivers 10 mg 2-17 tablet by ity of tablet 00:00: mouth in [place] 00 the Medical morning. Branch traZODone 2022-0 Yes [id number] 50mg Take 1 Un marcie 50 mg 2-17 tablet by ity of tablet 00:00: mouth at [place] 00 bedtime as Medical needed for Branch Insomnia. mupirocin 2 2022-0 Yes [id number] Apply to Univers % ointment 2-17 area(s) at ity of 00:00: bedtime as [place] [address] needed for Medical Rash. Branch rosuvastati 2022-0 Yes [id number] 10mg Take 1 Univers n 10 mg 2-17 tablet by ity of tablet 00:00: mouth at [place] [address] bedtime. Medical Branch ezetimibe 2022-0 Yes [id number] 10mg Take 1 U nivers 10 mg 2-17 tablet by ity of tablet 00:00: mouth in [place] the Medical morning. Branch traZODone 2022-0 Yes [id number] 50mg Take 1 Un marcie 50 mg 2-17 tablet by ity of tablet 00:00: mouth at [place] [address] bedtime as Medical needed for Branch Insomnia. mupirocin 2 2022-0 Yes [id number] Apply to Univers % ointment 2-17 area(s) at ity of 00:00: bedtime as [place] [address] needed for Medical Rash. Branch rosuvastati 2022-0 Yes [id number] 10mg Take 1 Univers n 10 mg 2-17 tablet by ity of tablet 00:00: mouth at [place] [address] bedtime. Medical Branch ezetimibe 2022-0 Yes [id number] 10mg Take 1 U nivers 10 mg 2-17 tablet by ity of tablet 00:00: mouth in [place] [address] the Medical morning. Branch traZODone 2022-0 Yes [id number] 50mg Take 1 Un marcie 50 mg 2-17 tablet by ity of tablet 00:00: mouth at [place] 00 bedtime as Medical needed for Branch Insomnia. mupirocin 2 2022-0 Yes [id number] Apply to Univers % ointment 2-17 area(s) at ity of 00:00: bedtime as [place] [address] needed for Medical Rash. Branch rosuvastati 2022-0 Yes [id number] 10mg Take 1 Univers n 10 mg 2-17 tablet by ity of tablet 00:00: mouth at [place] [address] bedtime. Medical Branch ezetimibe 2022-0 Yes [id number] 10mg Take 1 U nivers 10 mg 2-17 tablet by ity of tablet 00:00: mouth in [place] 00 the Medical morning. Branch traZODone 2022-0 Yes [id number] 50mg Take 1 Un marcie 50 mg 2-17 tablet by ity of tablet 00:00: mouth at [place] [address] bedtime as Medical needed for Branch Insomnia. mupirocin 2 2022-0 Yes [id number] Apply to Univers % ointment 2-17 area(s) at ity of 00:00: bedtime as [place] [address] needed for Medical Rash. Branch rosuvastati 2022-0 Yes [id number] 10mg Take 1 Univers n 10 mg 2-17 tablet by ity of tablet 00:00: mouth at [place] [address] bedtime. Medical Branch ezetimibe 2022-0 Yes [id number] 10mg Take 1 U nivers 10 mg 2-17 tablet by ity of tablet 00:00: mouth in [place] the Medical morning. Branch traZODone 2022-0 Yes [id number] 50mg Take 1 Un marcie 50 mg 2-17 tablet by ity of tablet 00:00: mouth at [place] 00 bedtime as Medical needed for Branch Insomnia. mupirocin 2 2022-0 Yes [id number] Apply to Univers % ointment 2-17 area(s) at ity of 00:00: bedtime as [place] [address] needed for Medical Rash. Branch rosuvastati 2022-0 Yes [id number] 10mg Take 1 [facility] 10 mg 2-17 tablet by [facility] tablet 00:00: mouth at [place] [address] bedtime. Medical Branch ezetimibe 2022-0 Yes [id number] 10mg Take 1 [facility] 10 mg 2-17 tablet by [facility] tablet 00:00: mouth in [place] 00 the Medical morning. Branch traZODone 0 Yes [id number] 50mg Take 1 [facility] 50 mg 2-17 tablet by [facility] tablet 00:00: mouth at [place] 00 bedtime as Medical needed for Branch Insomnia. mupirocin 2 0 Yes [id number] Apply to [facility] % ointment 2-17 area(s) at [facility] 00:00: bedtime as [place] [address] needed for Medical Rash. Branch rosuvastati 0 Yes [id number] 10mg Take 1 [facility] 10 mg 2-17 tablet by [facility] tablet 00:00: mouth at [place] 00 bedtime. Medical Branch ezetimibe Yes [id number] 10mg Take 1 [facility] 10 mg 2-17 tablet by [facility] tablet 00:00: mouth in [place] 00 the Medical morning. Branch traZODone Yes [id number] 50mg Take 1 [facility] 50 mg 2-17 tablet by [facility] tablet 00:00: mouth at [place] 00 bedtime as Medical needed for Branch Insomnia. mupirocin 2 Yes [id number] Apply to [facility] % ointment 2-17 area(s) at [facility] 00:00: bedtime as [place] [address] needed for Medical Rash. Branch rosuvastati 0 Yes [id number] 10mg Take 1 [facility] 10 mg 2-17 tablet by [facility] tablet 00:00: mouth at [place] [address] bedtime. Medical Branch ezetimibe 0 Yes [id number] 10mg Take 1 [facility] 10 mg 2-17 tablet by [facility] tablet 00:00: mouth in [place] the Medical morning. Branch traZODone 0 Yes [id number] 50mg Take 1 [facility] 50 mg 2-17 tablet by [facility] tablet 00:00: mouth at [place] 00 bedtime as Medical needed for Branch Insomnia. mupirocin 2 Yes [id number] Apply to [facility] % ointment 2-17 area(s) at [facility] 00:00: bedtime as [place] [address] needed for Medical Rash. Branch rosuvastati 0 Yes [id number] 10mg Take 1 [facility] 10 mg 2-17 tablet by [facility] tablet 00:00: mouth at [place] 00 bedtime. Medical Branch ezetimibe 2022-0 Yes [id number] 10mg Take 1 [facility] 10 mg 2-17 tablet by [facility] tablet 00:00: mouth in [place] 00 the Medical morning. Branch traZODone 2022-0 Yes [id number] 50mg Take 1 [facility] 50 mg 2-17 tablet by [facility] tablet 00:00: mouth at [place] 00 bedtime as Medical needed for Branch Insomnia. mupirocin 2 2022-0 Yes [id number] Apply to [facility] % ointment 2-17 area(s) at [facility] 00:00: bedtime as [place] 00 needed for Medical Rash. Branch rosuvastati 2022-0 Yes [id number] 10mg Take 1 [facility] 10 mg 2-17 tablet by [facility] tablet 00:00: mouth at [place] 00 bedtime. Medical Branch ezetimibe 2022-0 Yes [id number] 10mg Take 1 [facility] 10 mg 2-17 tablet by [facility] tablet 00:00: mouth in [place] the Medical morning. Branch traZODone 2022-0 Yes [id number] 50mg Take 1 [facility] 50 mg 2-17 tablet by [facility] tablet 00:00: mouth at [place] 00 bedtime as Medical needed for Branch Insomnia. mupirocin 2 2022-0 Yes [id number] Apply to [facility] % ointment 2-17 area(s) at [facility] 00:00: bedtime as [place] [address] needed for Medical Rash. Branch rosuvastati 2022-0 Yes [id number] 10mg Take 1 [facility] 10 mg 2-17 tablet by [facility] tablet 00:00: mouth at [place] 00 bedtime. Medical Branch ezetimibe 2022-0 Yes [id number] 10mg Take 1 [facility] 10 mg 2-17 tablet by [facility] tablet 00:00: mouth in [place] the Medical morning. Branch traZODone 2022-0 Yes [id number] 50mg Take 1 [facility] 50 mg 2-17 tablet by [facility] tablet 00:00: mouth at [place] 00 bedtime as Medical needed for Branch Insomnia. mupirocin 2 2022-0 Yes [id number] Apply to [facility] % ointment 2-17 area(s) at [facility] 00:00: bedtime as [place] 00 needed for Medical Rash. Branch rosuvastati 2022-0 Yes [id number] 10mg Take 1 [facility] 10 mg 2-17 tablet by [facility] tablet 00:00: mouth at [place] 00 bedtime. Medical Branch ezetimibe 2022-0 Yes [id number] 10mg Take 1 [facility] 10 mg 2-17 tablet by [facility] tablet 00:00: mouth in [place] 00 the Medical morning. Branch traZODone 2022-0 Yes [id number] 50mg Take 1 [facility] 50 mg 2-17 tablet by [facility] tablet 00:00: mouth at [place] 00 bedtime as Medical needed for Branch Insomnia. mupirocin 2 2022-0 Yes [id number] Apply to [facility] % ointment 2-17 area(s) at [facility] 00:00: bedtime as [place] 00 needed for Medical Rash. Branch rosuvastati 2022-0 Yes [id number] 10mg Take 1 [facility] 10 mg 2-17 tablet by [facility] tablet 00:00: mouth at [place] 00 bedtime. Medical Branch ezetimibe 2022-0 Yes [id number] 10mg Take 1 [facility] 10 mg 2-17 tablet by [facility] tablet 00:00: mouth in [place] the Medical morning. Branch traZODone 2022-0 Yes [id number] 50mg Take 1 [facility] 50 mg 2-17 tablet by [facility] tablet 00:00: mouth at [place] [address] bedtime as Medical needed for Branch Insomnia. mupirocin 2 2022-0 Yes [id number] Apply to [facility] % ointment 2-17 area(s) at [facility] 00:00: bedtime as [place] [address] needed for Medical Rash. Branch rosuvastati 2022-0 Yes [id number] 10mg Take 1 [facility] 10 mg 2-17 tablet by [facility] tablet 00:00: mouth at [place] 00 bedtime. Medical Branch ezetimibe 2022-0 Yes [id number] 10mg Take 1 [facility] 10 mg 2-17 tablet by [facility] tablet 00:00: mouth in [place] 00 the Medical morning. Branch traZODone 2022-0 Yes [id number] 50mg Take 1 [facility] 50 mg 2-17 tablet by [facility] tablet 00:00: mouth at [place] 00 bedtime as Medical needed for Branch Insomnia. mupirocin 2 2022-0 Yes [id number] Apply to [facility] % ointment 2-17 area(s) at [facility] 00:00: bedtime as [place] 00 needed for Medical Rash. Branch rosuvastati 2022-0 Yes [id number] 10mg Take 1 [facility] 10 mg 2-17 tablet by [facility] tablet 00:00: mouth at [place] 00 bedtime. Medical Branch ezetimibe 2022-0 Yes [id number] 10mg Take 1 [facility] 10 mg 2-17 tablet by [facility] tablet 00:00: mouth in [place] 00 the Medical morning. Branch traZODone 2022-0 Yes [id number] 50mg Take 1 [facility] 50 mg 2-17 tablet by [facility] tablet 00:00: mouth at [place] 00 bedtime as Medical needed for Branch Insomnia. mupirocin 2 0 Yes [id number] Apply to [facility] % ointment 2-17 area(s) at [facility] 00:00: bedtime as [place] 00 needed for Medical Rash. Branch rosuvastati 2022-0 Yes [id number] 10mg Take 1 [facility] 10 mg 2-17 tablet by [facility] tablet 00:00: mouth at [place] 00 bedtime. Medical Branch ezetimibe 2022-0 Yes [id number] 10mg Take 1 [facility] 10 mg 2-17 tablet by [facility] tablet 00:00: mouth in [place] 00 the Medical morning. Branch traZODone 2022-0 Yes [id number] 50mg Take 1 [facility] 50 mg 2-17 tablet by [facility] tablet 00:00: mouth at [place] 00 bedtime as Medical needed for Branch Insomnia. mupirocin 2 2022-0 Yes [id number] Apply to [facility] % ointment 2-17 area(s) at [facility] 00:00: bedtime as [place] 00 needed for Medical Rash. Branch rosuvastati 2022-0 Yes [id number] 10mg Take 1 [facility] 10 mg 2-17 tablet by [facility] tablet 00:00: mouth at [place] [address] bedtime. Medical Branch ezetimibe 2022-0 Yes [id number] 10mg Take 1 [facility] 10 mg 2-17 tablet by [facility] tablet 00:00: mouth in [place] 00 the Medical morning. Branch traZODone 0 Yes [id number] 50mg Take 1 [facility] 50 mg 2-17 tablet by [facility] tablet 00:00: mouth at [place] 00 bedtime as Medical needed for Branch Insomnia. mupirocin 2 0 Yes [id number] Apply to [facility] % ointment 2-17 area(s) at [facility] 00:00: bedtime as [place] 00 needed for Medical Rash. Branch rosuvastati 0 Yes [id number] 10mg Take 1 [facility] 10 mg 2-17 tablet by [facility] tablet 00:00: mouth at [place] 00 bedtime. Medical Branch ezetimibe Yes [id number] 10mg Take 1 [facility] 10 mg 2-17 tablet by [facility] tablet 00:00: mouth in [place] 00 the Medical morning. Branch traZODone 0 Yes [id number] 50mg Take 1 [facility] 50 mg 2-17 tablet by [facility] tablet 00:00: mouth at [place] 00 bedtime as Medical needed for Branch Insomnia. mupirocin 2 Yes [id number] Apply to [facility] % ointment 2-17 area(s) at [facility] 00:00: bedtime as [place] [address] needed for Medical Rash. Branch rosuvastati 0 Yes [id number] 10mg Take 1 [facility] 10 mg 2-17 tablet by [facility] tablet 00:00: mouth at [place] 00 bedtime. Medical Branch ezetimibe 0 Yes [id number] 10mg Take 1 [facility] 10 mg 2-17 tablet by [facility] tablet 00:00: mouth in [place] 00 the Medical morning. Branch traZODone 0 Yes [id number] 50mg Take 1 [facility] 50 mg 2-17 tablet by [facility] tablet 00:00: mouth at [place] 00 bedtime as Medical needed for Branch Insomnia. mupirocin 2 0 Yes [id number] Apply to [facility] % ointment 2-17 area(s) at [facility] 00:00: bedtime as [place] 00 needed for Medical Rash. Branch rosuvastati 0 Yes [id number] 10mg Take 1 [facility] 10 mg 2-17 tablet by [facility] tablet 00:00: mouth at [place] 00 bedtime. Medical Branch ezetimibe 2022-0 Yes [id number] 10mg Take 1 [facility] 10 mg 2-17 tablet by [facility] tablet 00:00: mouth in [place] 00 the Medical morning. Branch traZODone 2022-0 Yes [id number] 50mg Take 1 [facility] 50 mg 2-17 tablet by [facility] tablet 00:00: mouth at [place] 00 bedtime as Medical needed for Branch Insomnia. mupirocin 2 2022-0 Yes [id number] Apply to [facility] % ointment 2-17 area(s) at [facility] 00:00: bedtime as [place] 00 needed for Medical Rash. Branch rosuvastati 2022-0 Yes [id number] 10mg Take 1 [facility] 10 mg 2-17 tablet by [facility] tablet 00:00: mouth at [place] 00 bedtime. Medical Branch ezetimibe 2022-0 Yes [id number] 10mg Take 1 [facility] 10 mg 2-17 tablet by [facility] tablet 00:00: mouth in [place] the Medical morning. Branch traZODone 2022-0 Yes [id number] 50mg Take 1 [facility] 50 mg 2-17 tablet by [facility] tablet 00:00: mouth at [place] [address] bedtime as Medical needed for Branch Insomnia. mupirocin 2 2022-0 Yes [id number] Apply to [facility] % ointment 2-17 area(s) at [facility] 00:00: bedtime as [place] [address] needed for Medical Rash. Branch rosuvastati 2022-0 Yes [id number] 10mg Take 1 [facility] 10 mg 2-17 tablet by [facility] tablet 00:00: mouth at [place] 00 bedtime. Medical Branch ezetimibe 2022-0 Yes [id number] 10mg Take 1 [facility] 10 mg 2-17 tablet by [facility] tablet 00:00: mouth in [place] 00 the Medical morning. Branch traZODone 2022-0 Yes [id number] 50mg Take 1 [facility] 50 mg 2-17 tablet by [facility] tablet 00:00: mouth at [place] 00 bedtime as Medical needed for Branch Insomnia. mupirocin 2 2022-0 Yes [id number] Apply to [facility] % ointment 2-17 area(s) at [facility] 00:00: bedtime as [place] 00 needed for Medical Rash. Branch rosuvastati 2022-0 Yes [id number] 10mg Take 1 [facility] 10 mg 2-17 tablet by [facility] tablet 00:00: mouth at [place] 00 bedtime. Medical Branch ezetimibe 2022-0 Yes [id number] 10mg Take 1 [facility] 10 mg 2-17 tablet by [facility] tablet 00:00: mouth in [place] 00 the Medical morning. Branch traZODone 2022-0 Yes [id number] 50mg Take 1 [facility] 50 mg 2-17 tablet by [facility] tablet 00:00: mouth at [place] 00 bedtime as Medical needed for Branch Insomnia. mupirocin 2 2022-0 Yes [id number] Apply to [facility] % ointment 2-17 area(s) at [facility] 00:00: bedtime as [place] [address] needed for Medical Rash. Branch rosuvastati 2022-0 Yes [id number] 10mg Take 1 [facility] 10 mg 2-17 tablet by [facility] tablet 00:00: mouth at [place] [address] bedtime. Medical Branch ezetimibe 2022-0 Yes [id number] 10mg Take 1 [facility] 10 mg 2-17 tablet by [facility] tablet 00:00: mouth in [place] the Medical morning. Branch traZODone 2022-0 Yes [id number] 50mg Take 1 [facility] 50 mg 2-17 tablet by [facility] tablet 00:00: mouth at [place] 00 bedtime as Medical needed for Branch Insomnia. mupirocin 2 2022-0 Yes [id number] Apply to [facility] % ointment 2-17 area(s) at [facility] 00:00: bedtime as [place] [address] needed for Medical Rash. Branch rosuvastati 2022-0 Yes [id number] 10mg Take 1 [facility] 10 mg 2-17 tablet by [facility] tablet 00:00: mouth at [place] 00 bedtime. Medical Branch ezetimibe 2022-0 Yes [id number] 10mg Take 1 [facility] 10 mg 2-17 tablet by [facility] tablet 00:00: mouth in [place] 00 the Medical morning. Branch traZODone 2022-0 Yes [id number] 50mg Take 1 [facility] 50 mg 2-17 tablet by [facility] tablet 00:00: mouth at [place] 00 bedtime as Medical needed for Branch Insomnia. mupirocin 2 2023-0 Yes [id number] Apply to [facility] % ointment 2-17 area(s) at [facility] 00:00: bedtime as [place] 00 needed for Medical Rash. Branch rosuvastati 2022-0 Yes [id number] 10mg Take 1 [facility] 10 mg 2-17 tablet by [facility] tablet 00:00: mouth at [place] [address] bedtime. Medical Branch ezetimibe 0 Yes [id number] 10mg Take 1 [facility] 10 mg 2-17 tablet by [facility] tablet 00:00: mouth in [place] 00 the Medical morning. Branch traZODone 0 Yes [id number] 50mg Take 1 [facility] 50 mg 2-17 tablet by [facility] tablet 00:00: mouth at [place] 00 bedtime as Medical needed for Branch Insomnia. mupirocin 2 Yes [id number] Apply to [facility] % ointment 2-17 area(s) at [facility] 00:00: bedtime as [place] 00 needed for Medical Rash. Branch rosuvastati 0 Yes [id number] 10mg Take 1 [facility] 10 mg 2-17 tablet by [facility] tablet 00:00: mouth at [place] [address] bedtime. Medical Branch ezetimibe 0 Yes [id number] 10mg Take 1 [facility] 10 mg 2-17 tablet by [facility] tablet 00:00: mouth in [place] 00 the Medical morning. Branch traZODone 2022-0 Yes [id number] 50mg Take 1 [facility] 50 mg 2-17 tablet by [facility] tablet 00:00: mouth at [place] 00 bedtime as Medical needed for Branch Insomnia. mupirocin 2 0 Yes [id number] Apply to [facility] % ointment 2-17 area(s) at [facility] 00:00: bedtime as [place] 00 needed for Medical Rash. Branch rosuvastati 2022-0 Yes [id number] 10mg Take 1 [facility] 10 mg 2-17 tablet by [facility] tablet 00:00: mouth at [place] [address] bedtime. Medical Branch ezetimibe 2022-0 Yes [id number] 10mg Take 1 [facility] 10 mg 2-17 tablet by [facility] tablet 00:00: mouth in [place] 00 the Medical morning. Branch traZODone 2022-0 Yes [id number] 50mg Take 1 [facility] 50 mg 2-17 tablet by [facility] tablet 00:00: mouth at [place] 00 bedtime as Medical needed for Branch Insomnia. mupirocin 2 0 Yes [id number] Apply to [facility] % ointment 2-17 area(s) at [facility] 00:00: bedtime as [place] [address] needed for Medical Rash. Branch rosuvastati 2022-0 Yes [id number] 10mg Take 1 [facility] 10 mg 2-17 tablet by [facility] tablet 00:00: mouth at [place] 00 bedtime. Medical Branch ezetimibe 2022-0 Yes [id number] 10mg Take 1 [facility] 10 mg 2-17 tablet by [facility] tablet 00:00: mouth in [place] 00 the Medical morning. Branch traZODone 0 Yes [id number] 50mg Take 1 [facility] 50 mg 2-17 tablet by [facility] tablet 00:00: mouth at [place] 00 bedtime as Medical needed for Branch Insomnia. mupirocin 2 2022-0 Yes [id number] Apply to [facility] % ointment 2-17 area(s) at [facility] 00:00: bedtime as [place] [address] needed for Medical Rash. Branch rosuvastati 0 Yes [id number] 10mg Take 1 [facility] 10 mg 2-17 tablet by [facility] tablet 00:00: mouth at [place] 00 bedtime. Medical Branch ezetimibe 0 Yes [id number] 10mg Take 1 [facility] 10 mg 2-17 tablet by [facility] tablet 00:00: mouth in [place] 00 the Medical morning. Branch traZODone 2022-0 Yes [id number] 50mg Take 1 [facility] 50 mg 2-17 tablet by [facility] tablet 00:00: mouth at [place] 00 bedtime as Medical needed for Branch Insomnia. mupirocin 2 2022-0 Yes [id number] Apply to [facility] % ointment 2-17 area(s) at [facility] 00:00: bedtime as [place] 00 needed for Medical Rash. Branch rosuvastati 2022-0 Yes [id number] 10mg Take 1 [facility] 10 mg 2-17 tablet by [facility] tablet 00:00: mouth at [place] 00 bedtime. Medical Branch ezetimibe 2022-0 Yes [id number] 10mg Take 1 [facility] 10 mg 2-17 tablet by [facility] tablet 00:00: mouth in [place] 00 the Medical morning. Branch traZODone 2022-0 Yes [id number] 50mg Take 1 [facility] 50 mg 2-17 tablet by [facility] tablet 00:00: mouth at [place] 00 bedtime as Medical needed for Branch Insomnia. mupirocin 2 0 Yes [id number] Apply to [facility] % ointment 2-17 area(s) at [facility] 00:00: bedtime as [place] 00 needed for Medical Rash. Branch rosuvastati 0 Yes [id number] 10mg Take 1 [facility] 10 mg 2-17 tablet by [facility] tablet 00:00: mouth at [place] 00 bedtime. Medical Branch ezetimibe 0 Yes [id number] 10mg Take 1 [facility] 10 mg 2-17 tablet by [facility] tablet 00:00: mouth in [place] the Medical morning. Branch traZODone 2022-0 Yes [id number] 50mg Take 1 [facility] 50 mg 2-17 tablet by [facility] tablet 00:00: mouth at [place] [address] bedtime as Medical needed for Branch Insomnia. mupirocin 2 0 Yes [id number] Apply to [facility] % ointment 2-17 area(s) at [facility] 00:00: bedtime as [place] [address] needed for Medical Rash. Branch rosuvastati 0 Yes [id number] 10mg Take 1 [facility] 10 mg 2-17 tablet by [facility] tablet 00:00: mouth at [place] 00 bedtime. Medical Branch ezetimibe 2022-0 Yes [id number] 10mg Take 1 [facility] 10 mg 2-17 tablet by [facility] tablet 00:00: mouth in [place] 00 the Medical morning. Branch traZODone 0 Yes [id number] 50mg Take 1 [facility] 50 mg 2-17 tablet by [facility] tablet 00:00: mouth at [place] 00 bedtime as Medical needed for Branch Insomnia. mupirocin 2 0 Yes [id number] Apply to [facility] % ointment 2-17 area(s) at [facility] 00:00: bedtime as [place] [address] needed for Medical Rash. Branch rosuvastati 2022-0 Yes [id number] 10mg Take 1 [facility] 10 mg 2-17 tablet by [facility] tablet 00:00: mouth at [place] 00 bedtime. Medical Branch ezetimibe 2022-0 Yes [id number] 10mg Take 1 [facility] 10 mg 2-17 tablet by [facility] tablet 00:00: mouth in [place] 00 the Medical morning. Branch traZODone 2022-0 Yes [id number] 50mg Take 1 [facility] 50 mg 2-17 tablet by [facility] tablet 00:00: mouth at [place] 00 bedtime as Medical needed for Branch Insomnia. mupirocin 2 2022-0 Yes [id number] Apply to [facility] % ointment 2-17 area(s) at [facility] 00:00: bedtime as [place] [address] needed for Medical Rash. Branch rosuvastati 2022-0 Yes [id number] 10mg Take 1 [facility] 10 mg 2-17 tablet by [facility] tablet 00:00: mouth at [place] [address] bedtime. Medical Branch ezetimibe 2022-0 Yes [id number] 10mg Take 1 [facility] 10 mg 2-17 tablet by [facility] tablet 00:00: mouth in [place] the Medical morning. Branch traZODone 2022-0 Yes [id number] 50mg Take 1 [facility] 50 mg 2-17 tablet by [facility] tablet 00:00: mouth at [place] 00 bedtime as Medical needed for Branch Insomnia. mupirocin 2 2022-0 Yes [id number] Apply to [facility] % ointment 2-17 area(s) at [facility] 00:00: bedtime as [place] [address] needed for Medical Rash. Branch rosuvastati 2022-0 Yes [id number] 10mg Take 1 [facility] 10 mg 2-17 tablet by [facility] tablet 00:00: mouth at [place] 00 bedtime. Medical Branch ezetimibe 2022-0 Yes [id number] 10mg Take 1 [facility] 10 mg 2-17 tablet by [facility] tablet 00:00: mouth in [place] the Medical morning. Branch traZODone 2022-0 Yes [id number] 50mg Take 1 [facility] 50 mg 2-17 tablet by [facility] tablet 00:00: mouth at [place] 00 bedtime as Medical needed for Branch Insomnia. mupirocin 2 2022-0 Yes [id number] Apply to [facility] % ointment 2-17 area(s) at [facility] 00:00: bedtime as [place] 00 needed for Medical Rash. Branch rosuvastati 2022-0 Yes [id number] 10mg Take 1 [facility] 10 mg 2-17 tablet by [facility] tablet 00:00: mouth at [place] [address] bedtime. Medical Branch ezetimibe 2022-0 Yes [id number] 10mg Take 1 [facility] 10 mg 2-17 tablet by [facility] tablet 00:00: mouth in [place] 00 the Medical morning. Branch traZODone 2022-0 Yes [id number] 50mg Take 1 [facility] 50 mg 2-17 tablet by [facility] tablet 00:00: mouth at [place] 00 bedtime as Medical needed for Branch Insomnia. mupirocin 2 2022-0 Yes [id number] Apply to [facility] % ointment 2-17 area(s) at [facility] 00:00: bedtime as [place] 00 needed for Medical Rash. Branch rosuvastati 2022-0 Yes [id number] 10mg Take 1 [facility] 10 mg 2-17 tablet by [facility] tablet 00:00: mouth at [place] [address] bedtime. Medical Branch ezetimibe 2022-0 Yes [id number] 10mg Take 1 [facility] 10 mg 2-17 tablet by [facility] tablet 00:00: mouth in [place] 00 the Medical morning. Branch traZODone 2022-0 Yes [id number] 50mg Take 1 [facility] 50 mg 2-17 tablet by [facility] tablet 00:00: mouth at [place] 00 bedtime as Medical needed for Branch Insomnia. mupirocin 2 2022-0 Yes [id number] Apply to [facility] % ointment 2-17 area(s) at [facility] 00:00: bedtime as [place] 00 needed for Medical Rash. Branch rosuvastati 2022-0 Yes [id number] 10mg Take 1 [facility] 10 mg 2-17 tablet by [facility] tablet 00:00: mouth at [place] [address] bedtime. Medical Branch ezetimibe 2022-0 Yes [id number] 10mg Take 1 [facility] 10 mg 2-17 tablet by [facility] tablet 00:00: mouth in [place] 00 the Medical morning. Branch traZODone 2022-0 Yes [id number] 50mg Take 1 [facility] 50 mg 2-17 tablet by [facility] tablet 00:00: mouth at [place] 00 bedtime as Medical needed for Branch Insomnia. mupirocin 2 2022-0 Yes [id number] Apply to [facility] % ointment 2-17 area(s) at [facility] 00:00: bedtime as [place] 00 needed for Medical Rash. Branch rosuvastati 2022-0 Yes [id number] 10mg Take 1 [facility] 10 mg 2-17 tablet by [facility] tablet 00:00: mouth at [place] 00 bedtime. Medical Branch ezetimibe 2022-0 Yes [id number] 10mg Take 1 [facility] 10 mg 2-17 tablet by [facility] tablet 00:00: mouth in [place] 00 the Medical morning. Branch traZODone 0 Yes [id number] 50mg Take 1 [facility] 50 mg 2-17 tablet by [facility] tablet 00:00: mouth at [place] 00 bedtime as Medical needed for Branch Insomnia. mupirocin 2 2022-0 Yes [id number] Apply to [facility] % ointment 2-17 area(s) at [facility] 00:00: bedtime as [place] [address] needed for Medical Rash. Branch rosuvastati 0 Yes [id number] 10mg Take 1 [facility] 10 mg 2-17 tablet by [facility] tablet 00:00: mouth at [place] 00 bedtime. Medical Branch ezetimibe 2022-0 Yes [id number] 10mg Take 1 [facility] 10 mg 2-17 tablet by [facility] tablet 00:00: mouth in [place] 00 the Medical morning. Branch traZODone 2022-0 Yes [id number] 50mg Take 1 [facility] 50 mg 2-17 tablet by [facility] tablet 00:00: mouth at [place] 00 bedtime as Medical needed for Branch Insomnia. mupirocin 2 2022-0 Yes [id number] Apply to [facility] % ointment 2-17 area(s) at [facility] 00:00: bedtime as [place] 00 needed for Medical Rash. Branch rosuvastati 2022-0 Yes [id number] 10mg Take 1 [facility] 10 mg 2-17 tablet by [facility] tablet 00:00: mouth at [place] [address] bedtime. Medical Branch ezetimibe 2022-0 Yes [id number] 10mg Take 1 [facility] 10 mg 2-17 tablet by [facility] tablet 00:00: mouth in [place] 00 the Medical morning. Branch traZODone 2022-0 Yes [id number] 50mg Take 1 [facility] 50 mg 2-17 tablet by [facility] tablet 00:00: mouth at [place] 00 bedtime as Medical needed for Branch Insomnia. mupirocin 2 2022-0 Yes [id number] Apply to [facility] % ointment 2-17 area(s) at [facility] 00:00: bedtime as [place] 00 needed for Medical Rash. Branch rosuvastati 2022-0 Yes [id number] 10mg Take 1 [facility] 10 mg 2-17 tablet by [facility] tablet 00:00: mouth at [place] 00 bedtime. Medical Branch ezetimibe 2022-0 Yes [id number] 10mg Take 1 [facility] 10 mg 2-17 tablet by [facility] tablet 00:00: mouth in [place] 00 the Medical morning. Branch traZODone 2022-0 Yes [id number] 50mg Take 1 [facility] 50 mg 2-17 tablet by [facility] tablet 00:00: mouth at [place] 00 bedtime as Medical needed for Branch Insomnia. mupirocin 2 2022-0 Yes [id number] Apply to [facility] % ointment 2-17 area(s) at [facility] 00:00: bedtime as [place] 00 needed for Medical Rash. Branch rosuvastati 2022-0 Yes [id number] 10mg Take 1 [facility] 10 mg 2-17 tablet by [facility] tablet 00:00: mouth at [place] 00 bedtime. Medical Branch ezetimibe 2022-0 Yes [id number] 10mg Take 1 [facility] 10 mg 2-17 tablet by [facility] tablet 00:00: mouth in [place] 00 the Medical morning. Branch traZODone 2022-0 Yes [id number] 50mg Take 1 [facility] 50 mg 2-17 tablet by [facility] tablet 00:00: mouth at [place] 00 bedtime as Medical needed for Branch Insomnia. mupirocin 2 2022-0 Yes [id number] Apply to [facility] % ointment 2-17 area(s) at [facility] 00:00: bedtime as [place] [address] needed for Medical Rash. Branch rosuvastati 2022-0 Yes [id number] 10mg Take 1 [facility] 10 mg 2-17 tablet by [facility] tablet 00:00: mouth at [place] [address] bedtime. Medical Branch ezetimibe Yes [id number] 10mg Take 1 [facility] 10 mg 2-17 tablet by [facility] tablet 00:00: mouth in [place] 00 the Medical morning. Branch traZODone Yes [id number] 50mg Take 1 [facility] 50 mg 2-17 tablet by [facility] tablet 00:00: mouth at [place] 00 bedtime as Medical needed for Branch Insomnia. mupirocin 2 Yes [id number] Apply to [facility] % ointment 2-17 area(s) at [facility] 00:00: bedtime as [place] [address] needed for Medical Rash. Branch rosuvastati Yes [id number] 10mg Take 1 [facility] 10 mg 2-17 tablet by [facility] tablet 00:00: mouth at [place] [address] bedtime. Medical Branch ezetimibe Yes [id number] 10mg Take 1 [facility] 10 mg 2-07 tablet by [facility] tablet 00:00: mouth in [place] 00 the Medical morning. Branch metoprolol Yes [id number] 25mg Take 1 [facility] nivers tartrate 25 2-07 tablet by ity of mg tablet 00:00: mouth in [facility] 00 the Medical morning Branch and 1 tablet in the evening. apixaban Yes 1358 5mg Take 1 [facility] (ELIQUIS) 5 2-07 tablet by ity of mg tablet 00:00: mouth in [facility] 00 the Medical morning Branch and 1 tablet in the evening. Indication s: atrial fibrillati on cetirizine 0 Yes [id number] 10mg Take 1 [facility] (ZYRTEC) 10 2-07 tablet by ity of mg tablet 00:00: mouth in [facility] 00 the Medical morning. Branch ezetimibe Yes [id number] 10mg Take 1 [facility] nivers 10 mg 2-07 tablet by ity of tablet 00:00: mouth in [place] 00 the Medical morning. Branch metoprolol Yes [id number] 25mg Take 1 U nivers tartrate 25 2-07 tablet by ity of mg tablet 00:00: mouth in [facility] 00 the Medical morning Branch and 1 tablet in the evening. apixaban 3-0 Yes 1358 5mg Take 1 [facility] (ELIQUIS) 5 2-07 tablet by it[facility] of mg tablet 00:00: mouth [place] 00 the Medical morning Branch and 1 tablet in the evening. Indication s: atrial fibrillati on cetirizine 2022-0 Yes [id number] 10mg Take 1 [facility] (ZYRTEC) 10 2-07 tablet by ity of mg tablet 00:00: mouth [place] 00 the Medical morning. Branch ezetimibe 2022-0 Yes [id number] 10mg Take 1 [facility] nivers 10 mg 2-07 tablet by ity of tablet 00:00: mouth in [place] 00 the Medical morning. Branch metoprolol 2022-0 Yes [id number] 25mg Take 1 U nivers tartrate 25 [...] s: atrial fibrillati on cetirizine 2022-0 Yes [id number] 10mg Take 1 [facility] (ZYRTEC) 10 2-07 tablet by ity of mg tablet 00:00: mouth [place] 00 the Medical morning. Branch ezetimibe 2022-0 Yes [id number] 10mg Take 1 [facility] nivers 10 mg 2-07 tablet by ity of tablet 00:00: mouth in [place] 00 the Medical morning. Branch metoprolol 3-0 Yes [id number] 25mg Take 1 U nivers tartrate 25 [...] s: atrial fibrillati on cetirizine 2022-0 Yes [id number] 10mg Take 1 [facility] (ZYRTEC) 10 2-07 tablet by it[facility] mg tablet 00:00: mouth [facility] 00 the [facility] morning. Branch ezetimibe 2022-0 Yes [id number] 10mg Take 1 U nivers 10 mg 2-07 tablet by ity of tablet 00:00: mouth in [place] [address] the [facility] morning. Branch metoprolol 2022-0 Yes [id number] 25mg Take 1 U nivers tartrate 25 2-07 tablet by [facility] of mg tablet 00:00: mouth [facility] 00 the Medical morning Branch and 1 tablet in the evening. apixaban 2022-0 Yes 1358 5mg Take 1 [facility] (ELIQUIS) 5 2-07 tablet by [facility] mg tablet 00:00: mouth [facility] 00 the Medical morning Branch and 1 tablet in the evening. Indication s: atrial fibrillati on metoprolol 2022-0 Yes [id number] 25mg Take 1 U nivers tartrate 25 2-07 tablet by ity of mg tablet 00:00: mouth in [place] [address] the [facility] morning Branch and 1 tablet in the evening. apixaban 2022-0 Yes 1358 5mg Take 1 [facility] (ELIQUIS) 5 2-07 tablet by ity of mg tablet 00:00: mouth in [facility] 00 the Medical morning Branch and 1 tablet in the evening. Indication s: atrial fibrillati on metoprolol 2022-0 Yes [id number] 25mg Take 1 U nivers tartrate 25 2-07 tablet by ity of mg tablet 00:00: mouth in [facility] the Medical morning Branch and 1 tablet in the evening. apixaban 2022-0 Yes 1358 5mg Take 1 [facility] (ELIQUIS) 5 2-07 tablet by [facility]y of mg tablet 00:00: mouth [place] 00 the Medical morning Branch and 1 tablet in the evening. Indication s: atrial fibrillati on metoprolol 2022-0 Yes [id number] 25mg Take 1 [facility] nivers tartrate 25 2-07 tablet by ity of mg tablet 00:00: mouth [place] 00 the Medical morning Branch and 1 tablet in the evening. apixaban 2022-0 Yes 1358 5mg Take 1 [facility] (ELIQUIS) 5 2-07 tablet by ity of mg tablet 00:00: mouth in [facility] the [facility] morning Branch and 1 tablet in the evening. Indication s: atrial fibrillati on metoprolol 3-0 Yes [id number] 25mg Take 1 U nivers tartrate 25 [...] s: atrial fibrillati on metoprolol 3-0 Yes [id number] 25mg Take 1 U nivers tartrate 25 [...] s: atrial fibrillati on metoprolol 2022-0 Yes [id number] 25mg Take 1 U nivers tartrate 25 [...] s: atrial fibrillati on metoprolol 3-0 Yes [id number] 25mg Take 1 U nivers tartrate 25 [...] s: atrial fibrillati on metoprolol 2023-0 Yes [id number] 25mg Take 1 U nivers tartrate 25 [...] s: atrial fibrillati on metoprolol 2022-0 Yes [id number] 25mg Take 1 U nivers tartrate 25 [...] s: atrial fibrillati on metoprolol 2022-0 Yes [id number] 25mg Take 1 U nivers tartrate 25 [...] s: atrial fibrillati on metoprolol 2022-0 Yes [id number] 25mg Take 1 [facility] nivers tartrate 25 [...] s: atrial fibrillati on metoprolol 3-0 Yes [id number] 25mg Take 1 U nivers tartrate 25 [...] s: atrial fibrillati on metoprolol 3-0 Yes [id number] 25mg Take 1 [facility] nivers tartrate 25 [...] s: atrial fibrillati on metoprolol 2022-0 Yes [id number] 25mg Take 1 [facility] nivers tartrate 25 [...] s: atrial fibrillati on metoprolol 2022-0 Yes [id number] 25mg Take 1 [facility] nivers tartrate 25 [...] s: atrial fibrillati on metoprolol 3-0 Yes [id number] 25mg Take 1 [facility] nivers tartrate 25 [...] s: atrial fibrillati on metoprolol 3-0 Yes [id number] 25mg Take 1 U nivers tartrate 25 [...] s: atrial fibrillati on metoprolol 2022-0 Yes [id number] 25mg Take 1 U nivers tartrate 25 [...] s: atrial fibrillati on metoprolol 2022-0 Yes [id number] 25mg Take 1 U nivers tartrate 25 [...] s: atrial fibrillati on metoprolol 2022-0 Yes [id number] 25mg Take 1 [facility] nivers tartrate 25 [...] s: atrial fibrillati on metoprolol 3-0 Yes [id number] 25mg Take 1 [facility] nivers tartrate 25 [...] s: atrial fibrillati on metoprolol 2022-0 Yes [id number] 25mg Take 1 [facility] nivers tartrate 25 [...] s: atrial fibrillati on metoprolol 2022-0 Yes [id number] 25mg Take 1 [facility] nivers tartrate 25 [...] s: atrial fibrillati on metoprolol 2022-0 Yes [id number] 25mg Take 1 [facility] nivers tartrate 25 [...] s: atrial fibrillati on metoprolol 2022-0 Yes [id number] 25mg Take 1 [facility] nivers tartrate 25 2-07 tablet by [facility] mg tablet 00:00: mouth [place] 00 the Medical morning Branch and 1 tablet in the evening. metoprolol 2022-0 Yes [id number] 25mg Take 1 [facility] nivers tartrate 25 2-07 tablet by [facility] of mg tablet 00:00: mouth [place] 00 the Medical morning Branch and 1 tablet in the evening. metoprolol 3-0 Yes [id number] 25mg Take 1 U nivers tartrate 25 2-07 tablet by [facility]y of mg tablet 00:00: mouth [place] 00 the Medical morning Branch and 1 tablet in the evening. metoprolol 2023-0 Yes [id number] 25mg Take 1 U nivers tartrate 25 2-07 tablet by ity of mg tablet 00:00: mouth [place] 00 the Medical morning Branch and 1 tablet in the evening. metoprolol 2023-0 Yes [id number] 25mg Take 1 U nivers tartrate 25 2-07 tablet by [facility]y of mg tablet 00:00: mouth [place] 00 the Medical morning Branch and 1 tablet in the evening. metoprolol 2023-0 Yes [id number] 25mg Take 1 [facility] nivers tartrate 25 2-07 tablet by ity of mg tablet 00:00: mouth [place] 00 the Medical morning Branch and 1 tablet in the evening. metoprolol 3-0 Yes [id number] 25mg Take 1 [facility] nivers tartrate 25 2-07 tablet by ity of mg tablet 00:00: mouth [place] 00 the Medical morning Branch and 1 tablet in the evening. metoprolol 3-0 Yes [id number] 25mg Take 1 [facility] nivers tartrate 25 2-07 tablet by ity of mg tablet 00:00: mouth [place] 00 the Medical morning Branch and 1 tablet in the evening. metoprolol 3-0 Yes [id number] 25mg Take 1 [facility] nivers tartrate 25 2-07 tablet by [facility]y of mg tablet 00:00: mouth [place] 00 the Medical morning Branch and 1 tablet in the evening. metoprolol 3-0 Yes [id number] 25mg Take 1 U nivers tartrate 25 2-07 tablet by ity of mg tablet 00:00: mouth [place] 00 the Medical morning Branch and 1 tablet in the evening. metoprolol 3-0 Yes [id number] 25mg Take 1 U nivers tartrate 25 2-07 tablet by ity of mg tablet 00:00: mouth [place] 00 the Medical morning Branch and 1 tablet in the evening. metoprolol 2023-0 Yes [id number] 25mg Take 1 [facility] nivers tartrate 25 2-07 tablet by ity of mg tablet 00:00: mouth [place] 00 the Medical morning Branch and 1 tablet in the evening. metoprolol 2023-0 Yes [id number] 25mg Take 1 U nivers tartrate 25 2-07 tablet by ity of mg tablet 00:00: mouth [place] 00 the Medical morning Branch and 1 tablet in the evening. metoprolol 2022-0 Yes [id number] 25mg Take 1 U nivers tartrate 25 2-07 tablet by ity of mg tablet 00:00: mouth [place] 00 the Medical morning Branch and 1 tablet in the evening. metoprolol 2022-0 Yes [id number] 25mg Take 1 U nivers tartrate 25 2-07 tablet by ity of mg tablet 00:00: mouth [place] 00 the Medical morning Branch and 1 tablet in the evening. metoprolol 2022-0 Yes [id number] 25mg Take 1 U nivers tartrate 25 2-07 tablet by ity of mg tablet 00:00: mouth [place] 00 the Medical morning Branch and 1 tablet in the evening. metoprolol 2022-0 Yes [id number] 25mg Take 1 U nivers tartrate 25 2-07 tablet by ity of mg tablet 00:00: mouth [place] 00 the Medical morning Branch and 1 tablet in the evening. metoprolol 2022-0 Yes [id number] 25mg Take 1 U nivers tartrate 25 2-07 tablet by ity of mg tablet 00:00: mouth [place] 00 the Medical morning Branch and 1 tablet in the evening. metoprolol 2022-0 Yes [id number] 25mg Take 1 U nivers tartrate 25 2-07 tablet by ity of mg tablet 00:00: mouth [place] 00 the Medical morning Branch and 1 tablet in the evening. metoprolol 2022-0 Yes [id number] 25mg Take 1 U nivers tartrate 25 2-07 tablet by ity of mg tablet 00:00: mouth [place] 00 the Medical morning Branch and 1 tablet in the evening. metoprolol 2022-0 Yes [id number] 25mg Take 1 U nivers tartrate 25 2-07 tablet by ity of mg tablet 00:00: mouth [place] 00 the Medical morning Branch and 1 tablet in the evening. metoprolol 3-0 Yes [id number] 25mg Take 1 U nivers tartrate 25 2-07 tablet by [facility]y of mg tablet 00:00: mouth [place] 00 the Medical morning Branch and 1 tablet in the evening. metoprolol 2022-0 2023- No [id number] 25mg Take 1 [facility] tartrate 25 03-17 tablet by it y of mg tablet 00:00: 00:00 mouth in [place] 00 :00 the Medical morning Branch and 1 tablet in the evening. apixaban 2022- No 1358 5mg Take 1 Univer s (ELIQUIS) 5 03-17 tablet by it y of mg tablet 00:00: 00:00 mouth in [place] 00 :00 the Medical morning Branch and 1 tablet in the evening. Indication s: atrial fibrillati on ezetimibe 2022- No [id number] 10mg Take 1 [facility] 10 mg 03-17 tablet by ity of tablet 00:00: 00:00 mouth in [place] 00 :00 the Medical morning. Branch cetirizine 2022- No [id number] 10mg Take 1 [facility] (ZYRTEC) 10 03-17 tablet by it y of mg tablet 00:00: 00:00 mouth in [place] 00 :00 the Medical morning. Branch ezetimibe 2022- No [id number] 10mg Take 1 [facility] 10 mg 03-17 tablet by ity of tablet 00:00: 00:00 mouth in [place] 00 :00 the Medical morning. Branch cetirizine 2022- No [id number] 10mg Take 1 [facility] (ZYRTEC) 10 03-17 tablet by it y of mg tablet 00:00: 00:00 mouth in [place] 00 :00 the Medical morning. Branch traZODone 0 Yes [id number] 50mg Take 1 [facility] 50 mg 1-25 tablet by ity of tablet 00:00: mouth at [place] 00 bedtime as Medical needed for Branch Insomnia. traZODone 0 Yes [id number] 50mg Take 1 [facility] 50 mg 1-25 tablet by ity of tablet 00:00: mouth at [place] 00 bedtime as Medical needed for Branch Insomnia. traZODone 0 Yes [id number] 50mg Take 1 [facility] [place] 50 mg 1-25 tablet by ity of tablet 00:00: mouth at [place] 00 bedtime as Medical needed for Branch Insomnia. traZODone 0 Yes [id number] 50mg Take 1 [facility] [place] 50 mg 1-25 tablet by ity of tablet 00:00: mouth at [place] 00 bedtime as Medical needed for Branch Insomnia. traZODone 0 Yes [id number] 50mg Take 1 [facility] [place] 50 mg 1-25 tablet by ity of tablet 00:00: mouth at [place] 00 bedtime as Medical needed for Branch Insomnia. traZODone 0 Yes [id number] 50mg Take 1 [facility] [place] 50 mg 1-25 tablet by ity of tablet 00:00: mouth at [place] 00 bedtime as Medical needed for Branch Insomnia. traZODone 0 Yes [id number] 50mg Take 1 [facility] [place] 50 mg 1-25 tablet by ity of tablet 00:00: mouth at [place] 00 bedtime as Medical needed for Branch Insomnia. traZODone Yes [id number] 50mg Take 1 [facility] [place] 50 mg 1-25 tablet by ity of tablet 00:00: mouth at [place] 00 bedtime as Medical needed for Branch Insomnia. traZODone Yes [id number] 50mg Take 1 [facility] [place] 50 mg 1-25 tablet by ity of tablet 00:00: mouth at [place] [address] bedtime as Medical needed for Branch Insomnia. traZODone 0 Yes [id number] 50mg Take 1 [facility] 50 mg 1-25 tablet by ity of tablet 00:00: mouth at [place] [address] bedtime as Medical needed for Branch Insomnia. traZODone 0 Yes [id number] 50mg Take 1 [facility] [place] 50 mg 1-25 tablet by ity of tablet 00:00: mouth at [place] 00 bedtime as Medical needed for Branch Insomnia. traZODone 0 Yes [id number] 50mg Take 1 [facility] [place] 50 mg 1-25 tablet by ity of tablet 00:00: mouth at [place] 00 bedtime as Medical needed for Branch Insomnia. traZODone 0 Yes [id number] 50mg Take 1 [facility] [place] 50 mg 1-25 tablet by ity of tablet 00:00: mouth at [place] 00 bedtime as Medical needed for Branch Insomnia. traZODone 0 Yes [id number] 50mg Take 1 [facility] [place] 50 mg 1-25 tablet by ity of tablet 00:00: mouth at [place] 00 bedtime as Medical needed for Branch Insomnia. traZODone 2022- No [id number] 50mg Take 1 U nivers 50 mg 1-25 02-17 tablet by ity of tablet 00:00: 00:00 mouth at [place] 00 :00 bedtime as Medical needed for Branch Insomnia. traZODone 2022- No [id number] 50mg Take 1 U nivers 50 mg 1-25 02-17 tablet by ity of tablet 00:00: 00:00 mouth at [place] 00 :00 bedtime as Medical needed for Branch Insomnia. traZODone 2021-02 Yes [id number] 50mg Take 1 [facility] 50 mg 2-30 tablet by ity of tablet 00:00: mouth at [place] 00 bedtime as Medical needed for Branch Insomnia. PARoxetine 2021-02 Yes [id number] 10mg Take 1 U nivers 10 mg 2-30 tablet by ity of tablet 00:00: mouth in [place] the Medical morning. Branch traZODone 2021-02 Yes [id number] 50mg Take 1 [facility] 50 mg 2-30 tablet by ity of tablet 00:00: mouth at [place] 00 bedtime as Medical needed for Branch Insomnia. PARoxetine 2021-02 Yes [id number] 10mg Take 1 U nivers 10 mg 2-30 tablet by ity of tablet 00:00: mouth in [place] 00 the Medical morning. Branch traZODone 2021-02 Yes [id number] 50mg Take 1 [facility] 50 mg 2-30 tablet by ity of tablet 00:00: mouth at [place] 00 bedtime as Medical needed for Branch Insomnia. PARoxetine 2021-02 Yes [id number] 10mg Take 1 U nivers 10 mg 2-30 tablet by ity of tablet 00:00: mouth in [place] 00 the Medical morning. Branch traZODone 2021-02 Yes [id number] 50mg Take 1 [facility] 50 mg 2-30 tablet by ity of tablet 00:00: mouth at [place] 00 bedtime as Medical needed for Branch Insomnia. PARoxetine 2021-02 Yes [id number] 10mg Take 1 U nivers 10 mg 2-30 tablet by ity of tablet 00:00: mouth in [place] 00 the Medical morning. Branch traZODone 2021-02 Yes [id number] 50mg Take 1 [facility] [place] 50 mg 2-30 tablet by ity of tablet 00:00: mouth at [place] 00 bedtime as Medical needed for Branch Insomnia. PARoxetine 2021-02 Yes [id number] 10mg Take 1 U nivers 10 mg 2-30 tablet by ity of tablet 00:00: mouth in [place] 00 the Medical morning. Branch PARoxetine 2021-02 Yes [id number] 10mg Take 1 [facility] nivers 10 mg 2-30 tablet by ity of tablet 00:00: mouth in [place] the Medical morning. Branch PARoxetine 2021-02 Yes [id number] 10mg Take 1 U nivers 10 mg 2-30 tablet by ity of tablet 00:00: mouth in [place] the Medical morning. Branch PARoxetine 2021-02 Yes [id number] 10mg Take 1 U nivers 10 mg 2-30 tablet by ity of tablet 00:00: mouth in [place] the Medical morning. Branch PARoxetine 2021-02 Yes [id number] 10mg Take 1 U nivers 10 mg 2-30 tablet by ity of tablet 00:00: mouth in [place] the Medical morning. Branch PARoxetine 2021-02 Yes [id number] 10mg Take 1 U nivers 10 mg 2-30 tablet by ity of tablet 00:00: mouth in [place] the Medical morning. Branch PARoxetine 2021-02 Yes [id number] 10mg Take 1 U nivers 10 mg 2-30 tablet by ity of tablet 00:00: mouth in [place] the Medical morning. Branch PARoxetine 2021-02 Yes [id number] 10mg Take 1 [facility] nivers 10 mg 2-30 tablet by ity of tablet 00:00: mouth in [place] the Medical morning. Branch PARoxetine 2021-02 Yes [id number] 10mg Take 1 U nivers 10 mg 2-30 tablet by ity of tablet 00:00: mouth in [place] the Medical morning. Branch PARoxetine 2021-02 Yes [id number] 10mg Take 1 [facility] nivers 10 mg 2-30 tablet by ity of tablet 00:00: mouth in [place] 00 the Medical morning. Branch PARoxetine 2021-02 Yes [id number] 10mg Take 1 [facility] nivers 10 mg 2-30 tablet by ity of tablet 00:00: mouth in [place] 00 the Medical morning. Branch PARoxetine 2021-02 Yes [id number] 10mg Take 1 U nivers 10 mg 2-30 tablet by ity of tablet 00:00: mouth in [place] 00 the Medical morning. Branch PARoxetine 2021-02 Yes [id number] 10mg Take 1 [facility] nivers 10 mg 2-30 tablet by ity of tablet 00:00: mouth in [place] 00 the Medical morning. Branch PARoxetine 2021-02 Yes [id number] 10mg Take 1 [facility] nivers 10 mg 2-30 tablet by ity of tablet 00:00: mouth in [place] 00 the Medical morning. Branch PARoxetine 2021-02- No [id number] 10mg Take 1 [facility] 10 mg 2-30 02-17 tablet by ity of tablet 00:00: 00:00 mouth in [place] 00 :00 the Medical morning. Branch PARoxetine 2021-02- No [id number] 10mg Take 1 [facility] 10 mg 2-30 02-17 tablet by ity of tablet 00:00: 00:00 mouth in [place] 00 :00 the Medical morning. Branch PARoxetine 2021-02- No [id number] 10mg Take 1 [facility] 10 mg 2-30 02-17 tablet by ity of tablet 00:00: 00:00 mouth in [place] 00 :00 the Medical morning. Branch traZODone 2021-02- No [id number] 50mg Take 1 U nivers 50 mg 2-30 -25 tablet by ity of tablet 00:00: 00:00 mouth at [place] 00 :00 bedtime as Medical needed for Branch Insomnia. traZODone 2021-02- No [id number] 50mg Take 1 U nivers 50 mg 2-30 -25 tablet by ity of tablet 00:00: 00:00 mouth at [place] 00 :00 bedtime as Medical needed for Branch Insomnia. ELIQUIS 5 2021-02 Yes [id number] Take 1 U nivers mg tablet 2-16 tablet by ity o f 00:00: mouth [place] 00 twice Medical daily Branch ELIQUIS 5 2021-02 Yes [id number] Take 1 U nivers mg tablet 2-16 tablet by ity o f 00:00: mouth [place] [address] twice Medical daily Branch ELIQUIS 5 2021-02 Yes [id number] Take 1 U nivers mg tablet 2-16 tablet by ity o f 00:00: mouth [place] twice Medical daily Branch ELIQUIS 5 2021-02 Yes [id number] Take 1 U nivers mg tablet 2-16 tablet by ity o f 00:00: mouth [place] twice Medical daily Branch ELIQUIS 5 2021-02 Yes [id number] Take 1 U nivers mg tablet 2-16 tablet by ity o f 00:00: mouth [place] twice Medical daily Branch ELIQUIS 5 2021-02 Yes [id number] Take 1 U nivers mg tablet 2-16 tablet by ity o f 00:00: mouth [place] twice Medical daily Branch ELIQUIS 5 2021-02 Yes [id number] Take 1 U nivers mg tablet 2-16 tablet by ity o f 00:00: mouth [place] twice Medical daily Branch ELIQUIS 5 2021-02 Yes [id number] Take 1 U nivers mg tablet 2-16 tablet by ity o f 00:00: mouth twice Medical daily Branch ELIQUIS 5 2021-02 Yes [id number] Take 1 U nivers mg tablet 2-16 tablet by ity o f 00:00: mouth [place] twice Medical daily Branch ELIQUIS 5 2021-02 Yes [id number] Take 1 U nivers mg tablet 2-16 tablet by ity o f 00:00: mouth [place] twice Medical daily Branch ELIQUIS 5 2021-02 Yes [id number] Take 1 U nivers mg tablet 2-16 tablet by ity o f 00:00: mouth [place] twice Medical daily Branch ELIQUIS 5 2021-02 Yes [id number] Take 1 U nivers mg tablet 2-16 tablet by ity o f 00:00: mouth [place] twice Medical daily Branch ELIQUIS 5 2021-02 Yes [id number] Take 1 U nivers mg tablet 2-16 tablet by ity o f 00:00: mouth [place] twice Medical daily Branch ELIQUIS 5 2021-02 Yes [id number] Take 1 U nivers mg tablet 2-16 tablet by ity o f 00:00: mouth [place] 00 twice Medical daily Branch ELIQUIS 5 2021-02 Yes [id number] Take 1 U nivers mg tablet 2-16 tablet by ity o f 00:00: mouth [place] twice Medical daily Branch ELIQUIS 5 2021-02 Yes [id number] Take 1 U nivers mg tablet 2-16 tablet by ity o f 00:00: mouth [place] 00 twice Medical daily Branch ELIQUIS 5 2021-02- No [id number] Take 1 [facility] mg tablet 2-16 - tablet by ity of 00:00: 00:00 mouth [place] 00 :00 twice Medical daily Branch ELIQUIS 5 2021-02- No [id number] Take 1 [facility] mg tablet 2-16 - tablet by ity of 00:00: 00:00 mouth [place] 00 :00 twice Medical daily Branch ELIQUIS 5 2021-02- No [id number] Take 1 [facility] mg tablet 2-16 - tablet by ity of 00:00: 00:00 [facility] 00 :00 twice Medical daily Branch metoprolol 2021-02 Yes [id number] Take 1 U nivers tartrate 25 2-06 tablet by ity of mg tablet 00:00: [facility] twice Medical daily Branch metoprolol 2021-02 Yes [id number] Take 1 U nivers tartrate 25 2-06 tablet by ity of mg tablet 00:00: mouth [place] 00 twice Medical daily Branch metoprolol 2021-02 Yes [id number] Take 1 U nivers tartrate 25 2-06 tablet by ity of mg tablet 00:00: [facility] 00 twice Medical daily Branch metoprolol 2021-02 Yes [id number] Take 1 U nivers tartrate 25 2-06 tablet by ity of mg tablet 00:00: [facility] 00 twice Medical daily Branch metoprolol 2021-02 Yes [id number] Take 1 U nivers tartrate 25 2-06 tablet by ity of mg tablet 00:00: mouth [place] 00 twice Medical daily Branch metoprolol 2021-02 Yes [id number] Take 1 U nivers tartrate 25 2-06 tablet by ity of mg tablet 00:00: [facility] 00 twice Medical daily Branch metoprolol 2021-02 Yes [id number] Take 1 U nivers tartrate 25 2-06 tablet by ity of mg tablet 00:00: [facility] 00 twice Medical daily Branch metoprolol 2021-02 Yes [id number] Take 1 U nivers tartrate 25 2-06 tablet by ity of mg tablet 00:00: [facility] 00 twice Medical daily Branch metoprolol 2021-02 Yes [id number] Take 1 U nivers tartrate 25 2-06 tablet by ity of mg tablet 00:00: mouth [place] 00 twice Medical daily Branch metoprolol 2021-02 Yes [id number] Take 1 U nivers tartrate 25 2-06 tablet by ity of mg tablet 00:00: mouth [place] twice Medical daily Branch metoprolol 2021-02 Yes [id number] Take 1 U nivers tartrate 25 2-06 tablet by ity of mg tablet 00:00: mouth [place] 00 twice Medical daily Branch metoprolol 2021-02 Yes [id number] Take 1 U nivers tartrate 25 2-06 tablet by ity of mg tablet 00:00: mouth [place] twice Medical daily Branch metoprolol 2021-02 Yes [id number] Take 1 U nivers tartrate 25 2-06 tablet by ity of mg tablet 00:00: mouth [place] twice Medical daily Branch metoprolol 2021-02 Yes [id number] Take 1 U nivers tartrate 25 2-06 tablet by ity of mg tablet 00:00: mouth [place] 00 twice Medical daily Branch metoprolol 2021-02 Yes [id number] Take 1 U nivers tartrate 25 2-06 tablet by ity of mg tablet 00:00: mouth [place] 00 twice Medical daily Branch metoprolol 2021-02 Yes [id number] Take 1 U nivers tartrate 25 2-06 tablet by ity of mg tablet 00:00: mouth [place] 00 twice Medical daily Branch metoprolol 2021-02 Yes [id number] Take 1 U nivers tartrate 25 2-06 tablet by ity of mg tablet 00:00: mouth [place] 00 twice Medical daily Branch metoprolol 2021-02 Yes [id number] Take 1 U nivers tartrate 25 2-06 tablet by ity of mg tablet 00:00: mouth [place] 00 twice Medical daily Branch metoprolol 2021-02- No [id number] Take 1 [facility] tartrate 25 2-06 02-07 tablet by it y of mg tablet 00:00: 00:00 mouth [place] 00 :00 twice Medical daily Branch metoprolol 2021-02- No [id number] Take 1 [facility] tartrate 25 2-06 02-07 tablet by it y of mg tablet 00:00: 00:00 mouth [place] 00 :00 twice Medical daily Branch metoprolol 2021-02- No [id number] Take 1 [facility] tartrate 25 206 02-07 tablet by it y of mg tablet 00:00: 00:00 mouth [place] 00 :00 twice Medical daily Branch diphenhydrA 2021- No [id number] 25mg [facility] MINE 10-27 ity of (BENADRYL) 15:15: 14:39 [place] 12.5 mg/5 00 :03 Medical mL solution Branch 25 mg cetirizine Yes [id number] 10mg Take 1 [facility] (ZYRTEC) 10 9-19 tablet by ity of mg tablet 00:00: mouth in [place] 00 the Medical morning. Branch cetirizine Yes [id number] 10mg Take 1 [facility] (ZYRTEC) 10 9-19 tablet by ity of mg tablet 00:00: mouth [place] 00 the Medical morning. Branch cetirizine Yes [id number] 10mg Take 1 [facility] (ZYRTEC) 10 9-19 tablet by ity of mg tablet 00:00: mouth [place] 00 the Medical morning. Branch cetirizine Yes [id number] 10mg Take 1 [facility] (ZYRTEC) 10 9-19 tablet by ity of mg tablet 00:00: mouth [place] 00 the Medical morning. Branch cetirizine Yes [id number] 10mg Take 1 [facility] (ZYRTEC) 10 9-19 tablet by ity of mg tablet 00:00: mouth in [place] 00 the Medical morning. Branch cetirizine Yes [id number] 10mg Take 1 [facility] (ZYRTEC) 10 9-19 tablet by [facility] mg tablet 00:[place]: [place] 00 the Medical morning. Branch cetirizine 0 Yes [id number] 10mg Take 1 [facility] (ZYRTEC) 10 9-19 tablet by [facility] mg tablet 00:00: [place] 00 the Medical morning. Branch cetirizine Yes [id number] 10mg Take 1 [facility] (ZYRTEC) 10 9-19 tablet by [facility] mg tablet 00:00: [place] 00 the Medical morning. Branch cetirizine 2021-0 Yes [id number] 10mg Take 1 [facility] (ZYRTEC) 10 9-19 tablet by [facility] mg tablet 00:00: [place] 00 the Medical morning. Branch cetirizine 2021-0 Yes [id number] 10mg Take 1 [facility] (ZYRTEC) 10 9-19 tablet by [facility] mg tablet 00:00: [place] 00 the Medical morning. Branch cetirizine 2021-0 Yes [id number] 10mg Take 1 [facility] (ZYRTEC) 10 9-19 tablet by [facility] mg tablet 00:00: [place] 00 the Medical morning. Branch cetirizine 2021-0 Yes [id number] 10mg Take 1 [facility] (ZYRTEC) 10 9-19 tablet by [facility] mg tablet 00:00: [place] 00 the Medical morning. Branch cetirizine 2021-0 Yes [id number] 10mg Take 1 [facility] (ZYRTEC) 10 9-19 tablet by [facility] mg tablet 00:00: [place] 00 the Medical morning. Branch cetirizine 2021-0 Yes [id number] 10mg Take 1 [facility] (ZYRTEC) 10 9-19 tablet by [facility] mg tablet 00:00: [place] 00 the Medical morning. Branch cetirizine 2021-0 Yes [id number] 10mg Take 1 [facility] (ZYRTEC) 10 9-19 tablet by [facility] mg tablet 00:00: [place] 00 the Medical morning. Branch cetirizine 2021-0 Yes [id number] 10mg Take 1 [facility] (ZYRTEC) 10 9-19 tablet by [facility] mg tablet 00:00: [place] 00 the Medical morning. Branch cetirizine 2021-0 Yes [id number] 10mg Take 1 [facility] (ZYRTEC) 10 9-19 tablet by [facility] mg tablet 00:00: [place] 00 the Medical morning. Branch cetirizine 2021-0 Yes [id number] 10mg Take 1 [facility] (ZYRTEC) 10 9-19 tablet by [facility] mg tablet 00:00: [place] 00 the Medical morning. Branch cetirizine 2021-0 Yes [id number] 10mg Take 1 [facility] (ZYRTEC) 10 9-19 tablet by [facility] mg tablet 00:00: [place] 00 the Medical morning. Branch cetirizine 2021-0 Yes [id number] 10mg Take 1 [facility] (ZYRTEC) 10 9-19 tablet by [facility] mg tablet 00:00: [place] 00 the Medical morning. Branch cetirizine 2021-0 Yes [id number] 10mg Take 1 [facility] (ZYRTEC) 10 9-19 tablet by [facility] mg tablet 00:00: [place] 00 the Medical morning. Branch cetirizine 2021-0 Yes [id number] 10mg Take 1 [facility] (ZYRTEC) 10 9-19 tablet by [facility] mg tablet 00:00: [place] 00 the Medical morning. Branch cetirizine 2021-0 Yes [id number] 10mg Take 1 [facility] (ZYRTEC) 10 9-19 tablet by [facility] mg tablet 00:00: [place] 00 the Medical morning. Branch cetirizine 2021-0 Yes [id number] 10mg Take 1 [facility] (ZYRTEC) 10 9-19 tablet by [facility] mg tablet 00:00: [place] 00 the Medical morning. Branch cetirizine 2021-0 Yes [id number] 10mg Take 1 [facility] (ZYRTEC) 10 9-19 tablet by [facility] mg tablet 00:00: [place] 00 the Medical morning. Branch cetirizine 2021-0 Yes [id number] 10mg Take 1 [facility] (ZYRTEC) 10 9-19 tablet by [facility] mg tablet 00:00: [place] 00 the Medical morning. Branch cetirizine 2021-0 Yes [id number] 10mg Take 1 [facility] (ZYRTEC) 10 9-19 tablet by [facility] mg tablet 00:00: [place] 00 the Medical morning. Branch cetirizine 2021-0 Yes [id number] 10mg Take 1 [facility] (ZYRTEC) 10 9-19 tablet by [facility] mg tablet 00:00: [place] 00 the Medical morning. Branch cetirizine Yes [id number] 10mg Take 1 [facility] (ZYRTEC) 10 9-19 tablet by [facility] mg tablet 00:00: [place] 00 the Medical morning. Branch cetirizine Yes [id number] 10mg Take 1 [facility] (ZYRTEC) 10 9-19 tablet by [facility] mg tablet 00:00: [place] 00 the Medical morning. Branch cetirizine 2022- No [id number] 10mg Take 1 [facility] (ZYRTEC) 10 9-29 03- tablet by it y of mg tablet 00:00: 00:00 mouth in [place] 00 :00 the Medical morning. Branch cetirizine 2022- No [id number] 10mg Take 1 [facility] (ZYRTEC) 10 9-29 03- tablet by it y of mg tablet 00:00: 00:00 mouth in [place] 00 :00 the Medical morning. Branch cetirizine 2022- No [id number] 10mg Take 1 [facility] (ZYRTEC) 10 9-29 03- tablet by it y of mg tablet 00:00: 00:00 mouth in [place] 00 :00 the Medical morning. Branch methylPREDN 2021-0 Yes [id number] Take by [facility] 10-18 9107 mouth ity of (MEDROL, 00:00: SEE-INSTRU [place]AR,) 4 mg 00 CTIONS. Medica l tablets follow Branch package directions methylPREDN 2021-0 Yes [id number] Take by [facility] 10-18 9107 mouth ity of (MEDROL, 00:00: SEE-INSTRU [place],) 4 mg 00 CTIONS. Medica l tablets follow Branch package directions methylPREDN 2021-0 2021- No [id number] Take by [facility] 10-18 9107 mouth ity of (MEDROL, 00:00: 00:[place]INSTRU [place] SHAR,) 4 mg 00 :00 CTIONS. Medica l tablets follow Branch package directions methylPREDN 0 2021- No [id number] Take by [facility] 10-18 9107 mouth ity of (MEDROL, 00:00: 00:00 [place] SHAR[place] 4 mg 00 :00 CTIONS. Medica l tablets follow Branch package directions mupirocin 2 2-0 Yes [id number] Apply to [facility] % ointment 8-02 area(s) 3 ity of 00:00: (three) [place] 00 times Medical daily. Branch mupirocin 2 2021-0 Yes [id number] Apply to [facility] % ointment 8-02 area(s) 3 ity of 00:00: (three) [place] 00 times Medical daily. Branch mupirocin 2 2021-0 Yes [id number] Apply to [facility] % ointment 8-02 area(s) 3 ity of 00:00: (three) [place] 00 times Medical daily. Branch mupirocin 2 2021-0 Yes [id number] Apply to [facility] % ointment 8-02 area(s) 3 ity of 00:00: (three) [place] 00 times Medical daily. Branch mupirocin 2 2021-0 Yes [id number] Apply to [facility] % ointment 8-02 area(s) 3 ity of 00:00: (three) [place] 00 times Medical daily. Branch mupirocin 2 2021-0 Yes [id number] Apply to [facility] % ointment 8-02 area(s) 3 ity of 00:00: (three) [place] 00 times Medical daily. Branch mupirocin 2 2021-0 Yes [id number] Apply to [facility] % ointment 8-02 area(s) 3 ity of 00:00: (three) [place] 00 times Medical daily. Branch mupirocin 2 2021-0 Yes [id number] Apply to [facility] % ointment 8-02 area(s) 3 ity of 00:00: (three) [place] 00 times Medical daily. Branch mupirocin 2 2-0 Yes [id number] Apply to [facility] % ointment 8-02 area(s) 3 ity of 00:00: (three) [place] 00 times Medical daily. Branch mupirocin 2 2021-0 Yes [id number] Apply to [facility] % ointment 8-02 area(s) 3 ity of 00:00: (three) [place] 00 times Medical daily. Branch mupirocin 2 2022-0 Yes [id number] Apply to [facility] % ointment 8-02 area(s) 3 ity of 00:00: (three) [place] 00 times Medical daily. Branch mupirocin 2 2022-0 Yes [id number] Apply to [facility] % ointment 8-02 area(s) 3 ity of 00:00: (three) [place] 00 times Medical daily. Branch mupirocin 2 2022-0 Yes [id number] Apply to [facility] % ointment 8-02 area(s) 3 ity of 00:00: (three) [place] 00 times Medical daily. Branch mupirocin 2 2-0 Yes [id number] Apply to [facility] % ointment 8-02 area(s) 3 ity of 00:00: (three) [place] 00 times Medical daily. Branch mupirocin 2 2-0 Yes [id number] Apply to [facility] % ointment 8-02 area(s) 3 ity of 00:00: (three) [place] 00 times Medical daily. Branch mupirocin 2 2-0 Yes [id number] Apply to [facility] % ointment 8-02 area(s) 3 ity of 00:00: (three) [place] 00 times Medical daily. Branch mupirocin 2 2-0 Yes [id number] Apply to [facility] % ointment 8-02 area(s) 3 ity of 00:00: (three) [place] 00 times Medical daily. Branch mupirocin 2 2-0 Yes [id number] Apply to [facility] % ointment 8-02 area(s) 3 ity of 00:00: (three) [place] 00 times Medical daily. Branch mupirocin 2 2-0 Yes [id number] Apply to [facility] % ointment 8-02 area(s) 3 ity of 00:00: (three) [place] 00 times Medical daily. Branch mupirocin 2 2022-0 Yes [id number] Apply to [facility] % ointment 8-02 area(s) 3 ity of 00:00: (three) [place] 00 times Medical daily. Branch mupirocin 2 2022-0 Yes [id number] Apply to [facility] % ointment 8-02 area(s) 3 ity of 00:00: (three) [place] 00 times Medical daily. Branch mupirocin 2 2022-0 Yes [id number] Apply to [facility] % ointment 8-02 area(s) 3 ity of 00:00: (three) [place] 00 times Medical daily. Branch mupirocin 2 2022-0 Yes [id number] Apply to [facility] % ointment 8-02 area(s) 3 ity of 00:00: (three) [place] 00 times Medical daily. Branch mupirocin 2 2022-0 Yes [id number] Apply to [facility] % ointment 8-02 area(s) 3 ity of 00:00: (three) [place] 00 times Medical daily. Branch mupirocin 2 2022-0 Yes [id number] Apply to [facility] % ointment 8-02 area(s) 3 ity of 00:00: (three) [place] 00 times Medical daily. Branch mupirocin 2 2022-0 Yes [id number] Apply to [facility] % ointment 8-02 area(s) 3 ity of 00:00: (three) [place] 00 times Medical daily. Branch mupirocin 2 2022-0 Yes [id number] Apply to [facility] % ointment 8-02 area(s) 3 ity of 00:00: (three) [place] 00 times Medical daily. Branch mupirocin 2 2022-0 Yes [id number] Apply to [facility] % ointment 8-02 area(s) 3 ity of 00:00: (three) [place] 00 times Medical daily. Branch mupirocin 2 2022-0 Yes [id number] Apply to [facility] % ointment 8-02 area(s) 3 ity of 00:00: (three) [place] 00 times Medical daily. Branch mupirocin 2 2022-0 Yes [id number] Apply to [facility] % ointment 8-02 area(s) 3 ity of 00:00: (three) [place] 00 times Medical daily. Branch mupirocin 2 2022-0 Yes [id number] Apply to [facility] % ointment 8-02 area(s) 3 ity of 00:00: (three) [place] 00 times Medical daily. Branch mupirocin 2 2022-0 Yes [id number] Apply to [facility] % ointment 8-02 area(s) 3 ity of 00:00: (three) [place] 00 times Medical daily. Branch mupirocin 2 2022-0 Yes [id number] Apply to [facility] % ointment 8-02 area(s) 3 ity of 00:00: (three) [place] 00 times Medical daily. Branch mupirocin 2 2022-0 Yes [id number] Apply to [facility] % ointment 8-02 area(s) 3 ity of 00:00: (three) [place] 00 times Medical daily. Branch mupirocin 2 2022-0 Yes [id number] Apply to [facility] % ointment 8-02 area(s) 3 ity of 00:00: (three) [place] 00 times Medical daily. Branch mupirocin 2 2022-0 Yes [id number] Apply to [facility] % ointment 8-02 area(s) 3 ity of 00:00: (three) [place] 00 times Medical daily. Branch mupirocin 2 2022-0 Yes [id number] Apply to [facility] % ointment 8-02 area(s) 3 ity of 00:00: (three) [place] 00 times Medical daily. Branch mupirocin 2 2022-0 Yes [id number] Apply to [facility] % ointment 8-02 area(s) 3 ity of 00:00: (three) [place] 00 times Medical daily. Branch mupirocin 2 2022-0 Yes [id number] Apply to [facility] % ointment 8-02 area(s) 3 ity of 00:00: (three) [place] 00 times Medical daily. Branch mupirocin 2 2022-0 2023- No [id number] Apply to [facility] % ointment 8-02 02-17 area(s) 3 ity of 00:00: 00:00 (three) [place] 00 :00 times Medical daily. Branch mupirocin 2 2022-0 2023- No [id number] Apply to [facility] % ointment 8-02 02-17 area(s) 3 ity of 00:00: 00:00 (three) [place] 00 :00 times Medical daily. Branch mupirocin 2 2022-0 2023- No [id number] Apply to [facility] % ointment 8-02 02-17 area(s) 3 ity of 00:00: 00:00 (three) [place] 00 :00 times Medical daily. Branch EZETIMIBE 2022-0 Yes [id number] Take 1 [facility] n[facility] 10 mg 7-26 tablet by ity of tablet 00:00: mouth once [place] daily Medical Branch EZETIMIBE 2022-0 Yes [id number] Take 1 [facility] nivers 10 mg 7-26 tablet by ity of tablet 00:00: mouth once [place] daily Medical Branch EZETIMIBE 2-0 Yes [id number] Take 1 U nivers 10 mg 7-26 tablet by ity of tablet 00:00: mouth once [place] daily Medical Branch EZETIMIBE 2-0 Yes [id number] Take 1 [facility] nivers 10 mg 7-26 tablet by ity of tablet 00:00: mouth once [place] daily Medical Branch EZETIMIBE 2-0 Yes [id number] Take 1 [facility] nivers 10 mg 7-26 tablet by ity of tablet 00:00: mouth once [place] daily Medical Branch EZETIMIBE 2-0 Yes [id number] Take 1 [facility] nivers 10 mg 7-26 tablet by ity of tablet 00:00: mouth once [place] daily Medical Branch EZETIMIBE 2-0 Yes [id number] Take 1 [facility] nivers 10 mg 7-26 tablet by ity of tablet 00:00: mouth once [place] daily Medical Branch EZETIMIBE 2-0 Yes [id number] Take 1 [facility] nivers 10 mg 7-26 tablet by ity of tablet 00:00: mouth once [place] daily Medical Branch EZETIMIBE 2022-0 Yes [id number] Take 1 [facility] nivers 10 mg 7-26 tablet by ity of tablet 00:00: mouth once [place] daily Medical Branch EZETIMIBE 2022-0 Yes [id number] Take 1 [facility] nivers 10 mg 7-26 tablet by ity of tablet 00:00: mouth once [place] daily Medical Branch EZETIMIBE 2-0 Yes [id number] Take 1 [facility] nivers 10 mg 7-26 tablet by ity of tablet 00:00: mouth once [place] daily Medical Branch EZETIMIBE 2022-0 Yes [id number] Take 1 [facility] nivers 10 mg 7-26 tablet by ity of tablet 00:00: mouth once [place] daily Medical Branch EZETIMIBE 2-0 Yes [id number] Take 1 [facility] nivers 10 mg 7-26 tablet by ity of tablet 00:00: mouth once daily Medical Branch EZETIMIBE 2022-0 Yes [id number] Take 1 [facility] nivers 10 mg 7-26 tablet by ity of tablet 00:00: mouth once daily Medical Branch EZETIMIBE 2022-0 Yes [id number] Take 1 [facility] nivers 10 mg 7-26 tablet by ity of tablet 00:00: mouth once daily Medical Branch EZETIMIBE 2-0 Yes [id number] Take 1 [facility] nivers 10 mg 7-26 tablet by ity of tablet 00:00: mouth once daily Medical Branch EZETIMIBE 2-0 Yes [id number] Take 1 [facility] nivers 10 mg 7-26 tablet by ity of tablet 00:00: mouth once daily Medical Branch EZETIMIBE 2-0 Yes [id number] Take 1 [facility] nivers 10 mg 7-26 tablet by ity of tablet 00:00: mouth once daily Medical Branch EZETIMIBE 2-0 Yes [id number] Take 1 [facility] nivers 10 mg 7-26 tablet by ity of tablet 00:00: mouth once daily Medical Branch EZETIMIBE 2-0 Yes [id number] Take 1 [facility] nivers 10 mg 7-26 tablet by ity of tablet 00:00: mouth once daily Medical Branch EZETIMIBE 2022-0 Yes [id number] Take 1 [facility] nivers 10 mg 7-26 tablet by ity of tablet 00:00: mouth once daily Medical Branch EZETIMIBE 2022-0 Yes [id number] Take 1 [facility] nivers 10 mg 7-26 tablet by ity of tablet 00:00: mouth once daily Medical Branch EZETIMIBE 2022-0 Yes [id number] Take 1 [facility] nivers 10 mg 7-26 tablet by ity of tablet 00:00: mouth once daily Medical Branch EZETIMIBE 2022-0 Yes [id number] Take 1 [facility] nivers 10 mg 7-26 tablet by ity of tablet 00:00: mouth once daily Medical Branch EZETIMIBE 2022-0 Yes [id number] Take 1 [facility] nivers 10 mg 7-26 tablet by ity of tablet 00:00: mouth once daily Medical Branch EZETIMIBE 2022-0 Yes [id number] Take 1 [facility] nivers 10 mg 7-26 tablet by ity of tablet 00:00: mouth once [place] daily Medical Branch EZETIMIBE 2-0 Yes [id number] Take 1 [facility] nivers 10 mg 7-26 tablet by ity of tablet 00:00: mouth once [place] daily Medical Branch EZETIMIBE 2-0 Yes [id number] Take 1 [facility] nivers 10 mg 7-26 tablet by ity of tablet 00:00: mouth once [place] daily Medical Branch EZETIMIBE 2-0 Yes [id number] Take 1 [facility] nivers 10 mg 7-26 tablet by ity of tablet 00:00: mouth once [place] daily Medical Branch EZETIMIBE 2021-0 Yes [id number] Take 1 [facility] nivers 10 mg 7-26 tablet by ity of tablet 00:00: mouth once [place] daily Medical Branch EZETIMIBE 2-0 Yes [id number] Take 1 U nivers 10 mg 7-26 tablet by ity of tablet 00:00: mouth once [place] daily Medical Branch EZETIMIBE 2021-0 Yes [id number] Take 1 U nivers 10 mg 7-26 tablet by ity of tablet 00:00: mouth once [place] daily Medical Branch EZETIMIBE 2-0 Yes [id number] Take 1 [facility] nivers 10 mg 7-26 tablet by ity of tablet 00:00: mouth once [place] daily Medical Branch EZETIMIBE 2-0 Yes [id number] Take 1 [facility] nivers 10 mg 7-26 tablet by ity of tablet 00:00: mouth once [place] daily Medical Branch EZETIMIBE 2022-0 3- No [id number] Take 1 [facility] 10 mg 7-26 02-07 tablet by ity of tablet 00:00: 00:00 [place] 00 :00 daily Medical Branch EZETIMIBE 2022-0 3- No [id number] Take 1 [facility] 10 mg 7-26 02-07 tablet by ity of tablet 00:00: 00:00 mouth [place] 00 :00 daily Medical Branch EZETIMIBE 2022-0 3- No [id number] Take 1 [facility] nivers 10 mg 7-26 02-07 tablet by ity of tablet 00:00: 00:00 mouth [place] 00 :00 daily Medical Branch zinc 2022-0 2022- No Take by [facility] sulfate 7-20 07-20 mouth ity of (ZINC-220 13:24: 00:00 daily. [place] ORAL) 57 :00 Medical Branch KCL 10 mEq 2-0 Yes 10meq Take 10 [facility] vers tablet 7-20 mEq by ity of 13:24: mouth 2 [place] [address] (two) Medical times Branch daily. KCL 10 mEq 2-0 Yes 10meq Take 10 [facility] vers tablet 7-20 mEq by ity of 13:24: mouth 2 [place] [address] (two) Medical times Branch daily. KCL 10 mEq 2-0 Yes 10meq Take 10 [facility] vers tablet 7-20 mEq by ity of 13:24: mouth 2 [place] [address] (two) Medical times Branch daily. KCL 10 mEq 2-0 Yes 10meq Take 10 [facility] vers tablet 7-20 mEq by ity of 13:24: mouth 2 [place] [address] (two) Medical times Branch daily. KCL 10 mEq 2-0 Yes 10meq Take 10 [facility] vers tablet 7-20 mEq by ity of 13:24: mouth 2 [place] [address] (two) Medical times Branch daily. KCL 10 mEq 2-0 Yes 10meq Take 10 [facility] vers tablet 7-20 mEq by ity of 13:24: mouth 2 [place] [address] (two) Medical times Branch daily. KCL 10 mEq 2-0 Yes 10meq Take 10 [facility] vers tablet 7-20 mEq by ity of 13:24: mouth 2 [place] [address] (two) Medical times Branch daily. KCL 10 mEq 2-0 Yes 10meq Take 10 [facility] vers tablet 7-20 mEq by ity of 13:24: mouth 2 [place] [address] (two) Medical times Branch daily. KCL 10 mEq 2-0 Yes 10meq Take 10 [facility] vers tablet 7-20 mEq by ity of 13:24: mouth 2 [place] [address] (two) Medical times Branch daily. KCL 10 mEq 2-0 Yes 10meq Take 10 [facility] vers tablet 7-20 mEq by ity of 13:24: mouth 2 [place] [address] (two) Medical times Branch daily. KCL 10 mEq 2-0 Yes 10meq Take 10 [facility] vers tablet 7-20 mEq by ity of 13:24: mouth 2 [place] 55 (two) Medical times Branch daily. KCL 10 mEq 2022-0 Yes 10meq Take 10 [facility] vers tablet 7-20 mEq by ity of 13:24: mouth 2 [place] 55 (two) Medical times Branch daily. KCL 10 mEq 2022-0 Yes 10meq Take 10 [facility] vers tablet 7-20 mEq by ity of 13:24: mouth 2 [place] 55 (two) Medical times Branch daily. KCL 10 mEq 2022-0 Yes 10meq Take 10 [facility] vers tablet 7-20 mEq by ity of 13:24: mouth 2 [place] 55 (two) Medical times Branch daily. KCL 10 mEq 2022-0 Yes 10meq Take 10 [facility] vers tablet 7-20 mEq by ity of 13:24: mouth 2 [place] 55 (two) Medical times Branch daily. KCL 10 mEq 2022-0 Yes 10meq Take 10 [facility] vers tablet 7-20 mEq by ity of 13:24: mouth 2 [place] 55 (two) Medical times Branch daily. KCL 10 mEq 2022-0 Yes 10meq Take 10 [facility] vers tablet 7-20 mEq by ity of 13:24: mouth 2 [place] [address] (two) Medical times Branch daily. KCL 10 mEq 2022-0 Yes 10meq Take 10 [facility] vers tablet 7-20 mEq by ity of 13:24: mouth 2 [place] [address] (two) Medical times Branch daily. KCL 10 mEq 2022-0 Yes 10meq Take 10 [facility] vers tablet 7-20 mEq by ity of 13:24: mouth 2 [place] 55 (two) Medical times Branch daily. KCL 10 mEq 2022-0 Yes 10meq Take 10 [facility] vers tablet 7-20 mEq by ity of 13:24: mouth 2 [place] 55 (two) Medical times Branch daily. KCL 10 mEq 2022-0 Yes 10meq Take 10 [facility] vers tablet 7-20 mEq by ity of 13:24: mouth 2 [place] 55 (two) Medical times Branch daily. KCL 10 mEq 2022-0 Yes 10meq Take 10 [facility] vers tablet 7-20 mEq by ity of 13:24: mouth 2 [place] 55 (two) Medical times Branch daily. KCL 10 mEq 2022-0 Yes 10meq Take 10 [facility] vers tablet 7-20 mEq by ity of 13:24: mouth 2 [place] 55 (two) Medical times Branch daily. KCL 10 mEq 2022-0 Yes 10meq Take 10 [facility] vers tablet 7-20 mEq by ity of 13:24: mouth 2 [place] 55 (two) Medical times Branch daily. KCL 10 mEq 2022-0 Yes 10meq Take 10 [facility] vers tablet 7-20 mEq by ity of 13:24: mouth 2 [place] 55 (two) Medical times Branch daily. KCL 10 mEq 2022-0 Yes 10meq Take 10 [facility] vers tablet 7-20 mEq by ity of 13:24: mouth 2 [place] 55 (two) Medical times Branch daily. KCL 10 mEq 2022-0 Yes 10meq Take 10 [facility] vers tablet 7-20 mEq by ity of 13:24: mouth 2 [place] 55 (two) Medical times Branch daily. KCL 10 mEq 2-0 Yes 10meq Take 10 [facility] vers tablet 7-20 mEq by ity of 13:24: mouth 2 [place] 55 (two) Medical times Branch daily. KCL 10 mEq 2022-0 Yes 10meq Take 10 [facility] vers tablet 7-20 mEq by ity of 13:24: mouth 2 [place] [address] (two) Medical times Branch daily. KCL 10 mEq 2-0 Yes 10meq Take 10 [facility] vers tablet 7-20 mEq by ity of 13:24: mouth 2 [place] [address] (two) Medical times Branch daily. KCL 10 mEq 2-0 Yes 10meq Take 10 [facility] vers tablet 7-20 mEq by ity of 13:24: mouth 2 [place] [address] (two) Medical times Branch daily. KCL 10 mEq 2-0 Yes 10meq Take 10 [facility] vers tablet 7-20 mEq by ity of 13:24: mouth 2 [place] 55 (two) Medical times Branch daily. KCL 10 mEq 2-0 Yes 10meq Take 10 [facility] vers tablet 7-20 mEq by ity of 13:24: mouth 2 [place] 55 (two) Medical times Branch daily. KCL 10 mEq 2-0 Yes 10meq Take 10 [facility] vers tablet 7-20 mEq by ity of 13:24: mouth 2 [place] 55 (two) Medical times Branch daily. KCL 10 mEq 2022-0 Yes 10meq Take 10 [facility] vers tablet 7-20 mEq by ity of 13:24: mouth 2 [place] 55 (two) Medical times Branch daily. KCL 10 mEq 2022-0 Yes 10meq Take 10 [facility] vers tablet 7-20 mEq by ity of 13:24: mouth 2 [place] 55 (two) Medical times Branch daily. KCL 10 mEq 2022-0 Yes 10meq Take 10 [facility] vers tablet 7-20 mEq by ity of 13:24: mouth 2 [place] 55 (two) Medical times Branch daily. KCL 10 mEq 2022-0 Yes 10meq Take 10 [facility] vers tablet 7-20 mEq by ity of 13:24: mouth 2 [place] 55 (two) Medical times Branch daily. KCL 10 mEq 2022-0 Yes 10meq Take 10 [facility] vers tablet 7-20 mEq by ity of 13:24: mouth 2 [place] 55 (two) Medical times Branch daily. KCL 10 mEq 2022-0 Yes 10meq Take 10 [facility] vers tablet 7-20 mEq by ity of 13:24: mouth 2 [place] 55 (two) Medical times Branch daily. KCL 10 mEq 2022-0 Yes 10meq Take 10 [facility] vers tablet 7-20 mEq by ity of 13:24: mouth 2 [place] 55 (two) Medical times Branch daily. KCL 10 mEq 2022-0 Yes 10meq Take 10 [facility] vers tablet 7-20 mEq by ity of 13:24: mouth 2 [place] [address] (two) Medical times Branch daily. KCL 10 mEq 2022-0 Yes 10meq Take 10 [facility] vers tablet 7-20 mEq by ity of 13:24: mouth 2 [place] [address] (two) Medical times Branch daily. KCL 10 mEq 2022-0 Yes 10meq Take 10 [facility] vers tablet 7-20 mEq by ity of 13:24: mouth 2 [place] 55 (two) Medical times Branch daily. KCL 10 mEq 2022-0 Yes 10meq Take 10 [facility] vers tablet 7-20 mEq by ity of 13:24: mouth 2 [place] 55 (two) Medical times Branch daily. KCL 10 mEq 2022-0 Yes 10meq Take 10 [facility] vers tablet 7-20 mEq by ity of 13:24: mouth 2 [place] 55 (two) Medical times Branch daily. KCL 10 mEq 2022-0 Yes 10meq Take 10 [facility] vers tablet 7-20 mEq by ity of 13:24: mouth 2 [place] 55 (two) Medical times Branch daily. KCL 10 mEq 2022-0 Yes 10meq Take 10 [facility] vers tablet 7-20 mEq by ity of 13:24: mouth 2 [place] 55 (two) Medical times Branch daily. KCL 10 mEq 2022-0 Yes 10meq Take 10 [facility] vers tablet 7-20 mEq by ity of 13:24: mouth 2 [place] 55 (two) Medical times Branch daily. KCL 10 mEq 2021- Yes 10meq Take 10 [facility] vers tablet 7-20 mEq by ity of 13:24: mouth 2 [place] 55 (two) Medical times Branch daily. KCL 10 mEq 2021-0 Yes 10meq Take 10 [facility] vers tablet 7-20 mEq by ity of 13:24: mouth 2 [place] 55 (two) Medical times Branch daily. traMADol [...] Medical tablet for Branch Constipati on. gluc 2021- No Take by [facility] hernandez/chondro 08-2720 mouth ity of hernandez A/vit 13:23: 00:00 every 12 [place] C/Mn 15 :00 (twelve) Medical (GLUCOSAMIN hours. Branch E 1500 COMPLEX ORAL) methylPREDN 2021-0 Yes [id number] Take by [facility] ISolone 08-27 9105 mouth ity of (MEDROL, 00:00: SEE-INSTRU [place]AR,) 4 mg 00 CTIONS. Medica l tablets follow Branch package directions methylPREDN 2021-0 Yes [id number] Take by [facility] ISolone 08-27 9105 mouth ity of (MEDROL, 00:00: SEE-INSTRU [place],) 4 mg 00 CTIONS. Medica l tablets follow Branch package directions methylPREDN 2021-0 Yes [id number] Take by [facility] ISolone 7-20 9105 mouth ity of (MEDROL, 00:00: SEE-INSTRU [place],) 4 mg 00 CTIONS. Medica l tablets follow Branch package directions methylPREDN 2021-0 Yes [id number] Take by [facility] ISolone 7- 9105 mouth ity of (MEDROL, 00:00: SEE-INSTRU [place],) 4 mg 00 CTIONS. Medica l tablets follow Branch package directions methylPREDN 2021-0 Yes [id number] Take by [facility] 08-27 9105 mouth ity of (MEDROL, 00:00: SEE-INSTRU [place],) 4 mg 00 CTIONS. Medica l tablets follow Branch package directions methylPREDN 2021-0 Yes [id number] Take by [facility] 08-27 9105 mouth ity of (MEDROL, 00:00: SEE-INSTRU [place],) 4 mg 00 CTIONS. Medica l tablets follow Branch package directions methylPREDN 2021- No [id number] Take by [facility] 08-27 9105 mouth ity of (MEDROL, 00:00: 00:00 [place]IN[place]AR[place] 4 mg 00 :00 CTIONS. Medica l tablets follow Branch package directions methylPREDN 2021- No [id number] Take by [facility] 08-27 9105 mouth ity of (MEDROL, 00:00: 00:[place] 4 mg 00 :00 CTIONS. Medica l tablets follow Branch package directions HYDROcodone 2021-2021- No 1{tbl} Take 1 U nivers -acetaminop -08 14-07 tablet by it y of hen 10-325 12:50: 00:00 mouth [place] mg tablet 10 :00 every 6 Medical (six) Branch hours as needed. HYDROcodone 2021-2021- No 1{tbl} Take 1 U nivers -acetaminop -08 14-07 tablet by it y of hen 10-325 12:50: 00:00 mouth [place] mg tablet 10 :00 every 6 Medical (six) Branch hours as needed. methylPREDN 2021-0 Yes [id number] Take by [facility] 08-14 9106 mouth ity of (MEDROL, 00:00: SEE-INSTRU [place],) 4 mg 00 CTIONS. Medica l tablets follow Branch package directions mupirocin 2 Yes [id number] Apply to [facility] % ointment 08-14 area(s) 3 ity of 00:00: (three) [place] 00 times Medical daily. Branch methylPREDN 2021-0 Yes [id number] Take by [facility] ISolone 7 9106 mouth ity of (MEDROL, 00:00: SEE-INSTRU [place],) 4 mg 00 CTIONS. Medica l tablets follow Branch package directions mupirocin 2 2021-0 Yes [id number] Apply to [facility] % ointment 7-07 area(s) 3 ity of 00:00: (three) [place] 00 times Medical daily. Branch methylPREDN 2-0 Yes [id number] Take by [facility] ISolone 7 9106 mouth ity of (MEDROL, 00:00: SEE-INSTRU [place],) 4 mg 00 CTIONS. Medica l tablets follow Branch package directions mupirocin 2 2021-0 Yes [id number] Apply to [facility] % ointment 7-07 area(s) 3 ity of 00:00: (three) [place] 00 times Medical daily. Branch methylPREDN 2021-0 Yes [id number] Take by [facility] ISolone 7 9106 mouth ity of (MEDROL, 00:00: SEE-INSTRU [place],) 4 mg 00 CTIONS. Medica l tablets follow Branch package directions mupirocin 2 2021-0 Yes [id number] Apply to [facility] % ointment 7-07 area(s) 3 ity of 00:00: (three) [place] 00 times Medical daily. Branch mupirocin 2 2021-0 Yes [id number] Apply to [facility] % ointment 7-07 area(s) 3 ity of 00:00: (three) [place] 00 times Medical daily. Branch mupirocin 2 2021-0 Yes [id number] Apply to [facility] % ointment 7-07 area(s) 3 ity of 00:00: (three) [place] 00 times Medical daily. Branch mupirocin 2 2-0 Yes [id number] Apply to [facility] % ointment 7-07 area(s) 3 ity of 00:00: (three) [place] 00 times Medical daily. Branch mupirocin 2 2022-0 2022- No [id number] Apply to [facility] % ointment 7-07 08-02 area(s) 3 ity of 00:00: 00:00 (three) [place] 00 :00 times Medical daily. Branch methylPREDN 2021- No [id number] Take by [facility] ISolone 08-14 0720 9106 mouth ity of (MEDROL, 00:00: 00:00 [place] 4 mg 00 :00 CTIONS. Medica l tablets follow Branch package directions rosuvastati Yes [id number] 10mg Take 1 [facility] n 10 mg 7-06 tablet by ity of tablet 00:00: mouth at [place] [address] bedtime. Medical Branch rosuvastati Yes [id number] 10mg Take 1 [facility] n 10 mg 7-06 tablet by ity of tablet 00:00: mouth at [place] [address] bedtime. Medical Branch rosuvastati Yes [id number] 10mg Take 1 [facility] n 10 mg 7-06 tablet by ity of tablet 00:00: mouth at [place] [address] bedtime. Medical Branch rosuvastati Yes [id number] 10mg Take 1 [facility] n 10 mg 7-06 tablet by ity of tablet 00:00: mouth at [place] [address] bedtime. Medical Branch rosuvastati Yes [id number] 10mg Take 1 [facility] n 10 mg 7-06 tablet by ity of tablet 00:00: mouth at [place] [address] bedtime. Medical Branch rosuvastati Yes [id number] 10mg Take 1 [facility] n 10 mg 7-06 tablet by ity of tablet 00:00: mouth at [place] [address] bedtime. Medical Branch rosuvastati Yes [id number] 10mg Take 1 [facility] n 10 mg 7-06 tablet by ity of tablet 00:00: mouth at [place] [address] bedtime. Medical Branch rosuvastati Yes [id number] 10mg Take 1 [facility] n 10 mg 7-06 tablet by ity of tablet 00:00: mouth at [place] [address] bedtime. Medical Branch rosuvastati Yes [id number] 10mg Take 1 [facility] n 10 mg 7-06 tablet by ity of tablet 00:00: mouth at [place] [address] bedtime. Medical Branch rosuvastati Yes [id number] 10mg Take 1 [facility] n 10 mg 7-06 tablet by ity of tablet 00:00: mouth at [place] [address] bedtime. Medical Branch rosuvastati 2022-0 Yes [id number] 10mg Take 1 [facility] n 10 mg 7-06 tablet by ity of tablet 00:00: mouth at [place] 00 bedtime. Medical Branch rosuvastati Yes [id number] 10mg Take 1 [facility] n 10 mg 7-06 tablet by ity of tablet 00:00: mouth at [place] bedtime. Medical Branch rosuvastati 2021-0 Yes [id number] 10mg Take 1 [facility] n 10 mg 7-06 tablet by ity of tablet 00:00: mouth at [place] bedtime. Medical Branch rosuvastati 2021-0 Yes [id number] 10mg Take 1 [facility] n 10 mg 7-06 tablet by ity of tablet 00:00: mouth at [place] bedtime. Medical Branch rosuvastati Yes [id number] 10mg Take 1 [facility] n 10 mg 7-06 tablet by ity of tablet 00:00: mouth at [place] bedtime. Medical Branch rosuvastati 2021- Yes [id number] 10mg Take 1 [facility] n 10 mg 7-06 tablet by ity of tablet 00:00: mouth at [place] bedtime. Medical Branch rosuvastati Yes [id number] 10mg Take 1 [facility] n 10 mg 7-06 tablet by ity of tablet 00:00: mouth at [place] bedtime. Medical Branch rosuvastati Yes [id number] 10mg Take 1 [facility] n 10 mg 7-06 tablet by ity of tablet 00:00: mouth at [place] bedtime. Medical Branch rosuvastati 2021-0 Yes [id number] 10mg Take 1 [facility] n 10 mg 7-06 tablet by ity of tablet 00:00: mouth at [place] bedtime. Medical Branch rosuvastati 2021-0 Yes [id number] 10mg Take 1 [facility] n 10 mg 7-06 tablet by ity of tablet 00:00: mouth at [place] 00 bedtime. Medical Branch rosuvastati 2021-0 Yes [id number] 10mg Take 1 [facility] n 10 mg 7-06 tablet by ity of tablet 00:00: mouth at [place] bedtime. Medical Branch rosuvastati 2021- Yes [id number] 10mg Take 1 [facility] n 10 mg 7-06 tablet by ity of tablet 00:00: mouth at [place] 00 bedtime. Medical Branch rosuvastati Yes [id number] 10mg Take 1 [facility] n 10 mg 7-06 tablet by ity of tablet 00:00: mouth at [place] 00 bedtime. Medical Branch rosuvastati Yes [id number] 10mg Take 1 [facility] n 10 mg 7-06 tablet by ity of tablet 00:00: mouth at [place] bedtime. Medical Branch rosuvastati Yes [id number] 10mg Take 1 [facility] n 10 mg 7-06 tablet by ity of tablet 00:00: mouth at [place] bedtime. Medical Branch rosuvastati Yes [id number] 10mg Take 1 [facility] n 10 mg 7-06 tablet by ity of tablet 00:00: mouth at [place] bedtime. Medical Branch rosuvastati Yes [id number] 10mg Take 1 [facility] n 10 mg 7-06 tablet by ity of tablet 00:00: mouth at [place] bedtime. Medical Branch rosuvastati Yes [id number] 10mg Take 1 [facility] n 10 mg 7-06 tablet by ity of tablet 00:00: mouth at [place] [address] bedtime. Medical Branch rosuvastati Yes [id number] 10mg Take 1 [facility] n 10 mg 7-06 tablet by ity of tablet 00:00: mouth at [place] [address] bedtime. Medical Branch rosuvastati Yes [id number] 10mg Take 1 [facility] n 10 mg 7-06 tablet by ity of tablet 00:00: mouth at [place] [address] bedtime. Medical Branch rosuvastati 2021- Yes [id number] 10mg Take 1 [facility] n 10 mg 7-06 tablet by ity of tablet 00:00: mouth at [place] [address] bedtime. Medical Branch rosuvastati Yes [id number] 10mg Take 1 [facility] n 10 mg 7-06 tablet by ity of tablet 00:00: mouth at [place] [address] bedtime. Medical Branch rosuvastati Yes [id number] 10mg Take 1 [facility] n 10 mg 7-06 tablet by ity of tablet 00:00: mouth at [place] [address] bedtime. Medical Branch rosuvastati 2021- Yes [id number] 10mg Take 1 [facility] n 10 mg 7-06 tablet by ity of tablet 00:00: mouth at [place] 00 bedtime. Medical Branch rosuvastati Yes [id number] 10mg Take 1 [facility] n 10 mg 7-06 tablet by ity of tablet 00:00: mouth at [place] bedtime. Medical Branch rosuvastati Yes [id number] 10mg Take 1 [facility] n 10 mg 7-06 tablet by ity of tablet 00:00: mouth at [place] bedtime. Medical Branch rosuvastati Yes [id number] 10mg Take 1 [facility] n 10 mg 7-06 tablet by ity of tablet 00:00: mouth at [place] bedtime. Medical Branch rosuvastati Yes [id number] 10mg Take 1 [facility] n 10 mg 7-06 tablet by ity of tablet 00:00: mouth at [place] bedtime. Medical Branch rosuvastati Yes [id number] 10mg Take 1 [facility] n 10 mg 7-06 tablet by ity of tablet 00:00: mouth at [place] bedtime. Medical Branch rosuvastati Yes [id number] 10mg Take 1 [facility] n 10 mg 7-06 tablet by ity of tablet 00:00: mouth at [place] bedtime. Medical Branch rosuvastati Yes [id number] 10mg Take 1 [facility] n 10 mg 7-06 tablet by ity of tablet 00:00: mouth at [place] bedtime. Medical Branch rosuvastati Yes [id number] 10mg Take 1 [facility] n 10 mg 7-06 tablet by ity of tablet 00:00: mouth at [place] bedtime. Medical Branch rosuvastati 2021- Yes [id number] 10mg Take 1 [facility] n 10 mg 7-06 tablet by ity of tablet 00:00: mouth at [place] bedtime. Medical Branch rosuvastati Yes [id number] 10mg Take 1 [facility] n 10 mg 7-06 tablet by ity of tablet 00:00: mouth at [place] bedtime. Medical Branch rosuvastati 2021-0 Yes [id number] 10mg Take 1 [facility] n 10 mg 7-06 tablet by ity of tablet 00:00: mouth at [place] 00 bedtime. Medical Branch rosuvastati 2021- Yes [id number] 10mg Take 1 [facility] n 10 mg 7-06 tablet by ity of tablet 00:00: mouth at [place] 00 bedtime. Medical Branch rosuvastati 2022- No [id number] 10mg Take 1 [facility] n 10 mg 08-13 tablet by ity of tablet 00:00: 00:00 mouth at [place] 00 :00 bedtime. Medical Branch rosuvastati 2022- No [id number] 10mg Take 1 [facility] n 10 mg 08-13 tablet by ity of tablet 00:00: 00:00 mouth at [place] 00 :00 bedtime. Medical Branch rosuvastati 2022- No [id number] 10mg Take 1 [facility] n 10 mg 08-13 tablet by ity of tablet 00:00: 00:00 mouth at [place] 00 :00 bedtime. Medical Branch mupirocin 2 Yes Apply to [facility] % ointment 6-30 area(s) 3 ity of 00:00: (three) [place] 00 times Medical daily. Branch mupirocin 2 Yes Apply to [facility] % ointment 6-30 area(s) 3 ity of 00:00: (three) [place] 00 times Medical daily. Branch mupirocin 2 0 Yes Apply to [facility] mar[facility] % ointment 6-30 area(s) 3 ity of 00:00: (three) [place] 00 times Medical daily. Branch mupirocin 2 Yes Apply to Un marcie % ointment 6-30 area(s) 3 ity of 00:00: (three) [place] 00 times Medical daily. Branch mupirocin 2 [...] HOURS Branch NEEDED FOR PAIN HYDROcodone 0 2021- No TAKE 1 [facility] vers -acetaminop 4-25 07-20 TABLET BY it y of hen 7.5-325 00:00: 00:[place]TH [place] mg per 00 :00 EVERY 4 TO Medical tablet 6 HOURS Branch NEEDED FOR PAIN bisacodyL 2022-0 Yes 5mg Take 5 mg Uni vers (DULCOLAX, 3-23 by mouth ity o f BISACODYL,) 14:04: once daily [place] 5 mg EC 53 as needed Medical tablet for Branch Constipati on. bisacodyL 2022-0 Yes 5mg Take 5 mg Uni vers (DULCOLAX, 3-23 by mouth ity o f BISACODYL,) 14:04: once daily [place] 5 mg EC 53 as needed Medical tablet for Branch Constipati on. bisacodyL 2022-0 Yes 5mg Take 5 mg Uni vers (DULCOLAX, 3-23 by mouth ity o f BISACODYL,) 14:04: once daily [place] 5 mg EC 53 as needed Medical tablet for Branch Constipati on. bisacodyL 2022-0 Yes 5mg Take 5 mg Uni vers (DULCOLAX, 3-23 by mouth ity o f BISACODYL,) 14:04: once daily [place] 5 mg EC 53 as needed Medical tablet for Branch Constipati on. chlorhexidi 2022-0 Yes [id number] 15mL [place] and [facility] ne 0.12 % 3-23 spit out ity of mouthwash 00:00: 15 mL 2 [place] 00 (two) Medical times Branch daily. chlorhexidi 2022-0 Yes [id number] 15mL [place] and Univers ne 0.12 % 3-23 spit out ity of mouthwash 00:00: 15 mL 2 [place] 00 (two) Medical times Branch daily. chlorhexidi 2022-0 Yes [id number] 15mL [place] and Univers ne 0.12 % 3-23 spit out ity of mouthwash 00:00: 15 mL 2 [place] 00 (two) Medical times Branch daily. chlorhexidi 2022-0 Yes [id number] 15mL [place] and [facility] ne 0.12 % 3-23 spit out ity of mouthwash 00:00: 15 mL 2 [place] 00 (two) Medical times Branch daily. chlorhexidi 2022-0 2022- No [id number] 15mL [place] and [facility] ne 0.12 % [...] 44 daily. Medical Branch linaCLOtide 2020-02 Yes [id number] 145ug Take 1 Univers (LINZESS) 1-01 capsule [...] 2 (two) times daily. ezetimibe 2020-02 Yes [id number] 10mg Take 1 U nivers 10 mg 1-01 tablet by ity of tablet 00:00: mouth [place] 00 daily. Medical Branch metoprolol 2020-02 Yes [id number] 25mg Take 1 U nivers tartrate 25 1-01 tablet by ity of mg tablet 00:00: mouth 2 [place] 00 (two) Medical times Branch daily. omeprazole 2020-02 Yes [id number] 20mg Take 1 [facility] 20 mg 1-01 capsule by ity of capsule 00:00: mouth [place] 00 daily. Medical Branch fluconazole 2020-02 Yes [id number] 100mg Take 1 [facility] 100 mg 1-01 tablet by ity of tablet 00:00: mouth [place] 00 daily. Medical Branch linaCLOtide 2020-02 Yes [id number] 145ug Take 1 Univers (LINZESS) 1-01 capsule [...] 2 (two) times daily. ezetimibe 2020-02 Yes [id number] 10mg Take 1 U nivers 10 mg 1-01 tablet by ity of tablet 00:00: mouth [place] 00 daily. Medical Branch metoprolol 2020-02 Yes [id number] 25mg Take 1 U nivers tartrate 25 1-01 tablet by ity of mg tablet 00:00: mouth 2 [place] 00 (two) Medical times Branch daily. omeprazole 2020-02 Yes [id number] 20mg Take 1 [facility] 20 mg 1-01 capsule by ity of capsule 00:00: mouth [place] 00 daily. Medical Branch fluconazole 2020-02 Yes [id number] 100mg Take 1 [facility] 100 mg 1-01 tablet by ity of tablet 00:00: mouth [place] 00 daily. Medical Branch linaCLOtide 2020-02 Yes [id number] 145ug Take 1 Univers (LINZESS) 1-01 capsule [...] 2 (two) times daily. ezetimibe 2020-02 Yes [id number] 10mg Take 1 U nivers 10 mg 1-01 tablet by ity of tablet 00:00: mouth [place] 00 daily. Medical Branch metoprolol 2020-02 Yes [id number] 25mg Take 1 U nivers tartrate 25 1-01 tablet by ity of mg tablet 00:00: mouth 2 [place] 00 (two) Medical times Branch daily. omeprazole 2020-02 Yes [id number] 20mg Take 1 [facility] 20 mg 1-01 capsule by ity of capsule 00:00: mouth [place] 00 daily. Medical Branch fluconazole 2020-02 Yes [id number] 100mg Take 1 [facility] 100 mg 1-01 tablet by ity of tablet 00:00: mouth [place] 00 daily. Medical Branch linaCLOtide 2020-02 Yes [id number] 145ug Take 1 Univers (LINZESS) 1-01 capsule [...] 2 (two) times daily. ezetimibe 2020-02 Yes [id number] 10mg Take 1 U nivers 10 mg 1-01 tablet by ity of tablet 00:00: mouth [place] 00 daily. Medical Branch metoprolol 2020-02 Yes [id number] 25mg Take 1 U nivers tartrate 25 1-01 tablet by ity of mg tablet 00:00: mouth 2 [place] 00 (two) Medical times Branch daily. omeprazole 2020-02 Yes [id number] 20mg Take 1 [facility] 20 mg 1-01 capsule by ity of capsule 00:00: mouth [place] 00 daily. Medical Branch fluconazole 2020-02 Yes [id number] 100mg Take 1 [facility] 100 mg 1-01 tablet by ity of tablet 00:00: mouth [place] 00 daily. Medical Branch linaCLOtide 2020-02 Yes [id number] 145ug Take 1 Univers (LINZESS) 1-01 capsule [...] 2 (two) times daily. ezetimibe 2020-02 Yes [id number] 10mg Take 1 U nivers 10 mg 1-01 tablet by ity of tablet 00:00: mouth [place] 00 daily. Medical Branch metoprolol 2020-02 Yes [id number] 25mg Take 1 U nivers tartrate 25 1-01 tablet by ity of mg tablet 00:00: mouth 2 [place] 00 (two) Medical times Branch daily. linaCLOtide 2020-02 Yes [id number] 145ug Take 1 Univers (LINZESS) 1-01 capsule [...] 2 (two) times daily. ezetimibe 2020-02 Yes [id number] 10mg Take 1 U nivers 10 mg 1-01 tablet by ity of tablet 00:00: mouth daily. Medical Branch metoprolol 2020-02 Yes [id number] 25mg Take 1 U nivers tartrate 25 1-01 tablet by ity of mg tablet 00:00: mouth (two) Medical times Branch daily. linaCLOtide 2020-02 Yes [id number] 145ug Take 1 Univers (LINZESS) 1-01 capsule [...] 2 (two) times daily. metoprolol 2020-02 Yes [id number] 25mg Take 1 U nivers tartrate 25 1-01 tablet by ity of mg tablet 00:00: mouth (two) Medical times Branch daily. linaCLOtide 2020-02 Yes [id number] 145ug Take 1 Univers (LINZESS) 1-01 capsule [...] 2 (two) times daily. metoprolol 2020-02 Yes [id number] 25mg Take 1 U nivers tartrate 25 1-01 tablet by ity of mg tablet 00:00: mouth 2 (two) Medical times Branch daily. linaCLOtide 2020-02 Yes [id number] 145ug Take 1 Univers (LINZESS) 1-01 capsule [...] 2 (two) times daily. metoprolol 2020-02 Yes [id number] 25mg Take 1 U nivers tartrate 25 1-01 tablet by ity of mg tablet 00:00: mouth 2 (two) Medical times Branch daily. linaCLOtide 2020-02 Yes [id number] 145ug Take 1 Univers (LINZESS) 1-01 capsule [...] 2 (two) times daily. metoprolol 2020-02 Yes [id number] 25mg Take 1 U nivers tartrate 25 1-01 tablet by ity of mg tablet 00:00: mouth 2 (two) Medical times Branch daily. linaCLOtide 2020-02 Yes [id number] 145ug Take 1 Univers (LINZESS) 1-01 capsule [...] 2 (two) times daily. metoprolol 2020-02 Yes [id number] 25mg Take 1 U nivers tartrate 25 1-01 tablet by ity of mg tablet 00:00: mouth 2 (two) Medical times Branch daily. linaCLOtide 2020-02 Yes [id number] 145ug Take 1 Univers (LINZESS) 1-01 capsule [...] 2 (two) times daily. metoprolol 2020-02 Yes [id number] 25mg Take 1 U nivers tartrate 25 1-01 tablet by ity of mg tablet 00:00: mouth 2 (two) Medical times Branch daily. linaCLOtide 2020-02 Yes [id number] 145ug Take 1 Univers (LINZESS) 1-01 capsule [...] 2 (two) times daily. metoprolol 2020-02 Yes [id number] 25mg Take 1 U nivers tartrate 25 1-01 tablet by ity of mg tablet 00:00: mouth 2 (two) Medical times Branch daily. linaCLOtide 2020-02 Yes [id number] 145ug Take 1 Univers (LINZESS) 1-01 capsule [...] 2 (two) times daily. metoprolol 2020-02 Yes [id number] 25mg Take 1 U nivers tartrate 25 1-01 tablet by ity of mg tablet 00:00: mouth 2 (two) Medical times Branch daily. linaCLOtide 2020-02 Yes [id number] 145ug Take 1 Univers (LINZESS) 1-01 capsule [...] 2 (two) times daily. metoprolol 2020-02 Yes [id number] 25mg Take 1 U nivers tartrate 25 1-01 tablet by ity of mg tablet 00:00: mouth 2 (two) Medical times Branch daily. linaCLOtide 2020-02 Yes [id number] 145ug Take 1 Univers (LINZESS) 1-01 capsule [...] 2 (two) times daily. metoprolol 2020-02 Yes [id number] 25mg Take 1 U nivers tartrate 25 1-01 tablet by ity of mg tablet 00:00: mouth 2 (two) Medical times Branch daily. linaCLOtide 2020-02 Yes [id number] 145ug Take 1 Univers (LINZESS) 1-01 capsule [...] 2 (two) times daily. metoprolol 2020-02 Yes [id number] 25mg Take 1 U nivers tartrate 25 1-01 tablet by ity of mg tablet 00:00: mouth 2 (two) Medical times Branch daily. linaCLOtide 2020-02 Yes [id number] 145ug Take 1 Univers (LINZESS) 1-01 capsule [...] 2 (two) times daily. metoprolol 2020-02 Yes [id number] 25mg Take 1 U nivers tartrate 25 1-01 tablet by ity of mg tablet 00:00: mouth 2 (two) Medical times Branch daily. linaCLOtide 2020-02 Yes [id number] 145ug Take 1 Univers (LINZESS) 1-01 capsule [...] 2 (two) times daily. metoprolol 2020-02 Yes [id number] 25mg Take 1 U nivers tartrate 25 1-01 tablet by ity of mg tablet 00:00: mouth 2 (two) Medical times Branch daily. linaCLOtide 2020-02 Yes [id number] 145ug Take 1 Univers (LINZESS) 1-01 capsule [...] 2 (two) times daily. metoprolol 2020-02 Yes [id number] 25mg Take 1 U nivers tartrate 25 1-01 tablet by ity of mg tablet 00:00: mouth 2 (two) Medical times Branch daily. linaCLOtide 2020-02 Yes [id number] 145ug Take 1 Univers (LINZESS) 1-01 capsule [...] 2 (two) times daily. metoprolol 2020-02 Yes [id number] 25mg Take 1 U nivers tartrate 25 1-01 tablet by ity of mg tablet 00:00: mouth 2 (two) Medical times Branch daily. linaCLOtide 2020-02 Yes [id number] 145ug Take 1 Univers (LINZESS) 1-01 capsule [...] 2 (two) times daily. linaCLOtide 2020-02 Yes [id number] 145ug Take 1 Univers (LINZESS) 1-01 capsule [...] 2 (two) times daily. linaCLOtide 2020-02 Yes [id number] 145ug Take 1 [facility] (LINZESS) 1-01 capsule [...] 2 (two) times daily. linaCLOtide 2020-02 Yes [id number] 145ug Take 1 [facility] (LINZESS) 1-01 capsule by ity of 145 mcg 00:00: mouth [place] capsule 00 daily as Medical needed for Branch Constipati on. linaCLOtide 2020-02 Yes [id number] 145ug Take 1 [facility] (LINZESS) 1-01 capsule by ity of 145 mcg 00:00: mouth once [place] capsule 00 daily as Medical needed for Branch Constipati on. linaCLOtide 2020-02 Yes [id number] 145ug Take 1 [facility] (LINZESS) 1-01 capsule by ity of 145 mcg 00:00: mouth once [place] capsule 00 daily as Medical needed for Branch Constipati on. linaCLOtide 2020-02 Yes [id number] 145ug Take 1 [facility] (LINZESS) 1-01 capsule by ity of 145 mcg 00:00: mouth [place] capsule 00 daily as Medical needed for Branch Constipati on. linaCLOtide 2020-02 Yes [id number] 145ug Take 1 [facility] (LINZESS) 1-01 capsule by ity of 145 mcg 00:00: mouth once [place] capsule 00 daily as Medical needed for Branch Constipati on. linaCLOtide 2020-02 Yes [id number] 145ug Take 1 [facility] (LINZESS) 1-01 capsule by ity of 145 mcg 00:00: mouth once [place] capsule 00 daily as Medical needed for Branch Constipati on. linaCLOtide 2020-02 Yes [id number] 145ug Take 1 [facility] (LINZESS) 1-01 capsule by ity of 145 mcg 00:00: mouth once [place] capsule 00 daily as Medical needed for Branch Constipati on. linaCLOtide 2020-02 Yes [id number] 145ug Take 1 [facility] (LINZESS) 1-01 capsule by ity of 145 mcg 00:00: mouth once [place] capsule 00 daily as Medical needed for Branch Constipati on. linaCLOtide 2020-02 Yes [id number] 145ug Take 1 [facility] (LINZESS) 1-01 capsule by ity of 145 mcg 00:00: mouth once [place] capsule 00 daily as Medical needed for Branch Constipati on. linaCLOtide 2020-02 Yes [id number] 145ug Take 1 [facility] (LINZESS) 1-01 capsule by ity of 145 mcg 00:00: mouth once [place] capsule 00 daily as Medical needed for Branch Constipati on. linaCLOtide 2020-02 Yes [id number] 145ug Take 1 [facility] (LINZESS) 1-01 capsule by ity of 145 mcg 00:00: mouth once [place] capsule 00 daily as Medical needed for Branch Constipati on. linaCLOtide 2020-02 Yes [id number] 145ug Take 1 [facility] (LINZESS) 1-01 capsule by ity of 145 mcg 00:00: mouth once [place] capsule 00 daily as Medical needed for Branch Constipati on. linaCLOtide 2020-02 Yes [id number] 145ug Take 1 [facility] (LINZESS) 1-01 capsule by ity of 145 mcg 00:00: mouth once [place] capsule 00 daily as Medical needed for Branch Constipati on. linaCLOtide 2020-02 Yes [id number] 145ug Take 1 [facility] (LINZESS) 1-01 capsule by ity of 145 mcg 00:00: mouth once [place] capsule 00 daily as Medical needed for Branch Constipati on. linaCLOtide 2020-02 Yes [id number] 145ug Take 1 [facility] (LINZESS) 1-01 capsule by ity of 145 mcg 00:00: mouth once [place] capsule 00 daily as Medical needed for Branch Constipati on. linaCLOtide 2020-02 Yes [id number] 145ug Take 1 [facility] (LINZESS) 1-01 capsule by ity of 145 mcg 00:00: mouth once [place] capsule 00 daily as Medical needed for Branch Constipati on. linaCLOtide 2020-02 Yes [id number] 145ug Take 1 [facility] (LINZESS) 1-01 capsule by ity of 145 mcg 00:00: mouth once [place] capsule 00 daily as Medical needed for Branch Constipati on. linaCLOtide 2020-02 Yes [id number] 145ug Take 1 [facility] (LINZESS) 1-01 capsule by ity of 145 mcg 00:00: mouth once [place] capsule 00 daily as Medical needed for Branch Constipati on. linaCLOtide 2020-02 Yes [id number] 145ug Take 1 [facility] (LINZESS) 1-01 capsule by ity of 145 mcg 00:00: mouth once [place] capsule 00 daily as Medical needed for Branch Constipati on. linaCLOtide 2020-02 Yes [id number] 145ug Take 1 [facility] (LINZESS) 1-01 capsule by ity of 145 mcg 00:00: mouth once [place] capsule 00 daily as Medical needed for Branch Constipati on. linaCLOtide 2020-02 Yes [id number] 145ug Take 1 [facility] (LINZESS) 1-01 capsule by ity of 145 mcg 00:00: mouth once [place] capsule 00 daily as Medical needed for Branch Constipati on. linaCLOtide 2020-02 Yes [id number] 145ug Take 1 [facility] (LINZESS) 1-01 capsule by ity of 145 mcg 00:00: mouth once [place] capsule 00 daily as Medical needed for Branch Constipati on. linaCLOtide 2020-02 Yes [id number] 145ug Take 1 [facility] (LINZESS) 1-01 capsule by ity of 145 mcg 00:00: mouth once [place] capsule 00 daily as Medical needed for Branch Constipati on. linaCLOtide 2020-02 Yes [id number] 145ug Take 1 [facility] (LINZESS) 1-01 capsule by ity of 145 mcg 00:00: mouth once [place] capsule 00 daily as Medical needed for Branch Constipati on. linaCLOtide 2020-02 Yes [id number] 145ug Take 1 [facility] (LINZESS) 1-01 capsule by ity of 145 mcg 00:00: mouth once [place] capsule 00 daily as Medical needed for Branch Constipati on. linaCLOtide 2020-02 Yes [id number] 145ug Take 1 [facility] (LINZESS) 1-01 capsule by ity of 145 mcg 00:00: mouth once [place] capsule 00 daily as Medical needed for Branch Constipati on. linaCLOtide 2020-02 Yes [id number] 145ug Take 1 [facility] capsule by [facility] 145 mcg [facility]:[place] capsule 00 daily as Medical needed for Branch Constipati on. linaCLOtide 2020-02 Yes [id number] 145ug Take 1 [facility] (LIN[facility]) 1-01 capsule by [facility] of 145 mcg 00:00: mouth [place] capsule 00 daily as Medical needed for Branch Constipati on. linaCLOtide 2020-02 Yes [id number] 145ug Take 1 [facility] (LINZESS) 1-01 capsule by [facility] of 145 mcg 00:00: mouth [place] capsule 00 daily as Medical needed for Branch Constipati on. linaCLOtide 2020-02 Yes [id number] 145ug Take 1 [facility] (LINZESS) 1-01 capsule by [facility] of 145 mcg 00:00: mouth once [place] capsule 00 daily as Medical needed for Branch Constipati on. linaCLOtide 2020-02 Yes [id number] 145ug Take 1 [facility] (LINZESS) 1-01 capsule by [facility] of 145 mcg 00:00: mouth once [place] capsule 00 daily as Medical needed for Branch Constipati on. linaCLOtide 2020-02 Yes [id number] 145ug Take 1 [facility] (LINZESS) 1-01 capsule by [facility] of 145 mcg 00:00: mouth once [place] capsule 00 daily as Medical needed for Branch Constipati on. linaCLOtide 2020-02 Yes [id number] 145ug Take 1 [facility] (LINZESS) 1-01 capsule by [facility] of 145 mcg 00:00: mouth once [place] capsule 00 daily as Medical needed for Branch Constipati on. linaCLOtide 2020-02 Yes [id number] 145ug Take 1 [facility] (LINZESS) 1-01 capsule by [facility] of 145 mcg 00:00: mouth once [place] capsule 00 daily as Medical needed for Branch Constipati on. linaCLOtide 2020-02 Yes [id number] 145ug Take 1 [facility] (LINZESS) 1-01 capsule by [facility] of 145 mcg 00:00: mouth once [place] capsule 00 daily as Medical needed for Branch Constipati on. linaCLOtide 2020-02 Yes [id number] 145ug Take 1 [facility] (LINZESS) 1-01 capsule by [facility] of 145 mcg 00:00: mouth once [place] capsule 00 daily as Medical needed for Branch Constipati on. linaCLOtide 2020-02 Yes [id number] 145ug Take 1 [facility] (LINZESS) 1-01 capsule by [facility] of 145 mcg 00:00: mouth once [place] capsule 00 daily as Medical needed for Branch Constipati on. linaCLOtide 2020-02 Yes [id number] 145ug Take 1 [facility] (LINZESS) 1-01 capsule by [facility] of 145 mcg 00:00: mouth once [place] capsule 00 daily as Medical needed for Branch Constipati on. linaCLOtide 2020-02 Yes [id number] 145ug Take 1 [facility] (LINZESS) 1-01 capsule by [facility] of 145 mcg 00:00: mouth once [place] capsule 00 daily as Medical needed for Branch Constipati on. linaCLOtide 2020-02 Yes [id number] 145ug Take 1 [facility] (LINZESS) 1-01 capsule by [facility] of 145 mcg 00:00: mouth once [place] capsule 00 daily as Medical needed for Branch Constipati on. linaCLOtide 2020-02 Yes [id number] 145ug Take 1 [facility] (LINZESS) 1-01 capsule by [facility] of 145 mcg 00:00: mouth once [place] capsule 00 daily as Medical needed for Branch Constipati on. linaCLOtide 2020-02 Yes [id number] 145ug Take 1 [facility] (LINZESS) 1-01 capsule by [facility] of 145 mcg 00:00: mouth once [place] capsule 00 daily as Medical needed for Branch Constipati on. linaCLOtide 2020-02 Yes [id number] 145ug Take 1 [facility] (LINZESS) 1-01 capsule by [facility] of 145 mcg 00:00: mouth once [place] capsule 00 daily as Medical needed for Branch Constipati on. linaCLOtide 2020-02 Yes [id number] 145ug Take 1 [facility] (LINZESS) 1-01 capsule by [facility] of 145 mcg 00:00: mouth once [place] capsule 00 daily as Medical needed for Branch Constipati on. linaCLOtide 2020-02 Yes [id number] 145ug Take 1 [facility] (LINZESS) 1-01 capsule by [facility] of 145 mcg 00:00: mouth once [place] capsule 00 daily as Medical needed for Branch Constipati on. linaCLOtide 2020-02 Yes [id number] 145ug Take 1 [facility] (LINZESS) 1-01 capsule by [facility] of 145 mcg 00:00: mouth once [place] capsule 00 daily as Medical needed for Branch Constipati on. linaCLOtide 2020-02 Yes [id number] 145ug Take 1 [facility] (LINZESS) 1-01 capsule by [facility] of 145 mcg 00:00: mouth once [place] capsule 00 daily as Medical needed for Branch Constipati on. linaCLOtide 2020-02 Yes [id number] 145ug Take 1 [facility] (LINZESS) 1-01 capsule by [facility] of 145 mcg 00:00: mouth once [place] capsule 00 daily as Medical needed for Branch Constipati on. linaCLOtide 2020-02 Yes [id number] 145ug Take 1 [facility] (LINZESS) 1-01 capsule by [facility] of 145 mcg 00:00: mouth once [place] capsule 00 daily as Medical needed for Branch Constipati on. linaCLOtide 2020-02 Yes [id number] 145ug Take 1 [facility] (LINZESS) 1-01 capsule by [facility] of 145 mcg 00:00: mouth once [place] capsule 00 daily as Medical needed for Branch Constipati on. linaCLOtide 2020-02 Yes [id number] 145ug Take 1 [facility] (LINZESS) 1-01 capsule by [facility] of 145 mcg 00:00: mouth once [place] capsule 00 daily as Medical needed for Branch Constipati on. linaCLOtide 2020-02 Yes [id number] 145ug Take 1 [facility] (LINZESS) 1-01 capsule by [facility] of 145 mcg 00:00: mouth once [place] capsule 00 daily as Medical needed for Branch Constipati on. linaCLOtide 2020-02 Yes [id number] 145ug Take 1 [facility] (LINZESS) 1-01 capsule by [facility] of 145 mcg 00:00: mouth once [place] capsule 00 daily as Medical needed for Branch Constipati on. linaCLOtide 2020-02 Yes [id number] 145ug Take 1 [facility] (LINZESS) 1-01 capsule by [facility] of 145 mcg 00:00: mouth once [place] capsule 00 daily as Medical needed for Branch Constipati on. linaCLOtide 2020-02 Yes [id number] 145ug Take 1 [facility] (LINZESS) 1-01 capsule by [facility] of 145 mcg 00:00: mouth once [place] capsule 00 daily as Medical needed for Branch Constipati on. linaCLOtide 2020-02 Yes [id number] 145ug Take 1 [facility] (LINZESS) 1-01 capsule by [facility] of 145 mcg 00:00: mouth once [place] capsule 00 daily as Medical needed for Branch Constipati on. linaCLOtide 2020-02 Yes [id number] 145ug Take 1 [facility] (LINZESS) 1-01 capsule by [facility] of 145 mcg 00:00: mouth once [place] capsule 00 daily as Medical needed for Branch Constipati on. linaCLOtide 2020-02 Yes [id number] 145ug Take 1 [facility] (LINZESS) 1-01 capsule by [facility] of 145 mcg 00:00: mouth once [place] capsule 00 daily as Medical needed for Branch Constipati on. linaCLOtide 2020-02 Yes [id number] 145ug Take 1 [facility] (LINZESS) 1-01 capsule by [facility] of 145 mcg 00:00: mouth once [place] capsule 00 daily as Medical needed for Branch Constipati on. linaCLOtide 2020-02 Yes [id number] 145ug Take 1 [facility] (LINZESS) 1-01 capsule by [facility] of 145 mcg 00:00: mouth once [place] capsule 00 daily as Medical needed for Branch Constipati on. linaCLOtide 2020-02 Yes [id number] 145ug Take 1 [facility] (LINZESS) 1-01 capsule by [facility] of 145 mcg 00:00: mouth once [place] capsule 00 daily as Medical needed for Branch Constipati on. linaCLOtide 2020-02 Yes [id number] 145ug Take 1 [facility] (LINZESS) 1-01 capsule by [facility] of 145 mcg 00:00: mouth once [place] capsule 00 daily as Medical needed for Branch Constipati on. linaCLOtide 2020-02 Yes [id number] 145ug Take 1 [facility] (LINZESS) 1-01 capsule by [facility] of 145 mcg 00:00: mouth once [place] capsule 00 daily as Medical needed for Branch Constipati on. linaCLOtide 2020-02 Yes [id number] 145ug Take 1 [facility] (LINZESS) 1-01 capsule by [facility] of 145 mcg 00:00: mouth once [place] capsule 00 daily as Medical needed for Branch Constipati on. linaCLOtide 2020-02 Yes [id number] 145ug Take 1 [facility] (LINZESS) 1-01 capsule by [facility] of 145 mcg 00:00: mouth once [place] capsule 00 daily as Medical needed for Branch Constipati on. linaCLOtide 2020-02 Yes [id number] 145ug Take 1 [facility] (LINZESS) 1-01 capsule by [facility] of 145 mcg 00:00: mouth once [place] capsule 00 daily as Medical needed for Branch Constipati on. linaCLOtide 2020-02 Yes [id number] 145ug Take 1 [facility] (LINZESS) 1-01 capsule by [facility] of 145 mcg 00:00: mouth once [place] capsule 00 daily as Medical needed for Branch Constipati on. linaCLOtide 2020-02 Yes [id number] 145ug Take 1 [facility] (LINZESS) 1-01 capsule by [facility] of 145 mcg 00:00: mouth once [place] capsule 00 daily as Medical needed for Branch Constipati on. linaCLOtide 2020-02 Yes [id number] 145ug Take 1 [facility] (LINZESS) 1-01 capsule by [facility] of 145 mcg 00:00: mouth once [place] capsule 00 daily as Medical needed for Branch Constipati on. linaCLOtide 2020-02 Yes [id number] 145ug Take 1 [facility] (LINZESS) 1-01 capsule [...] 2 (two) times daily. metoprolol 2020-02- No [id number] 25mg Take 1 [facility] tartrate 25 02-0806 tablet by it y of mg tablet 00:00: 00:[place] mouth [place] 00 :00 (two) Medical times Branch daily. ezetimibe 2020-02- No [id number] 10mg Take 1 [facility] 10 mg 02-08 tablet by ity of tablet 00:00: 00:00 mouth [place] 00 :00 daily. Medical Branch omeprazole 2020-02- No [id number] 20mg Take 1 [facility] 20 mg 02-08-20 capsule by ity of capsule 00:00: 00:00 mouth [place] 00 :00 daily. Medical Branch fluconazole 2020-02- No [id number] 100mg Take 1 [facility] 100 mg 02-0820 tablet by ity of tablet 00:00: 00:00 mouth [place] 00 :00 daily. Medical Branch Arm Brace Yes [id number] PRODUCT: [facility] Misc 8-30 MYOPRO ity of 00:00: BRACE; [place] 00 Sig: Use Medical as Branch directed; ICD-10 codes: Z86.73, G81.94 Arm Brace Yes [id number] PRODUCT: [facility] Misc 8-30 MYOPRO ity of 00:00: BRACE; [place] 00 Sig: Use Medical as Branch directed; ICD-10 codes: Z86.73, G81.94 Arm Brace 2020-0 Yes [id number] PRODUCT: [facility] Misc 8-30 MYOPRO ity of 00:00: BRACE; [place] 00 Sig: Use Medical as Branch directed; ICD-10 codes: Z86.73, G81.94 Arm Brace 2020-0 Yes [id number] PRODUCT: [facility] Misc 8-30 MYOPRO ity of 00:00: BRACE; [place] 00 Sig: Use Medical as Branch directed; ICD-10 codes: Z86.73, G81.94 Arm Brace 2020-0 Yes [id number] PRODUCT: [facility] Misc 8-30 MYOPRO ity of 00:00: BRACE; [place] 00 Sig: Use Medical as Branch directed; ICD-10 codes: Z86.73, G81.94 Arm Brace 2020-0 Yes [id number] PRODUCT: [facility] Misc 8-30 MYOPRO ity of 00:00: BRACE; [place] 00 Sig: Use Medical as Branch directed; ICD-10 codes: Z86.73, G81.94 Arm Brace 2020-0 Yes [id number] PRODUCT: [facility] Misc 8-30 MYOPRO ity of 00:00: BRACE; [place] 00 Sig: Use Medical as Branch directed; ICD-10 codes: Z86.73, G81.94 Arm Brace 2020-0 Yes [id number] PRODUCT: [facility] Misc 8-30 MYOPRO ity of 00:00: BRACE; [place] 00 Sig: Use Medical as Branch directed; ICD-10 codes: Z86.73, G81.94 Arm Brace 2020-0 Yes [id number] PRODUCT: [facility] Misc 8-30 MYOPRO ity of 00:00: BRACE; [place] 00 Sig: Use Medical as Branch directed; ICD-10 codes: Z86.73, G81.94 Arm Brace 2020-0 Yes [id number] PRODUCT: [facility] Misc 8-30 MYOPRO ity of 00:00: BRACE; [place] 00 Sig: Use Medical as Branch directed; ICD-10 codes: Z86.73, G81.94 Arm Brace 2020-0 Yes [id number] PRODUCT: [facility] Misc 8-30 MYOPRO ity of 00:00: BRACE; [place] 00 Sig: Use Medical as Branch directed; ICD-10 codes: Z86.73, G81.94 Arm Brace 2020-0 Yes [id number] PRODUCT: [facility] Misc 8-30 MYOPRO ity of 00:00: BRACE; [place] 00 Sig: Use Medical as Branch directed; ICD-10 codes: Z86.73, G81.94 Arm Brace 2020-0 Yes [id number] PRODUCT: [facility] Misc 8-30 MYOPRO ity of 00:00: BRACE; [place] 00 Sig: Use Medical as Branch directed; ICD-10 codes: Z86.73, G81.94 Arm Brace 2020-0 Yes [id number] PRODUCT: [facility] Misc 8-30 MYOPRO ity of 00:00: BRACE; [place] 00 Sig: Use Medical as Branch directed; ICD-10 codes: Z86.73, G81.94 Arm Brace 2020-0 Yes [id number] PRODUCT: [facility] Misc 8-30 MYOPRO ity of 00:00: BRACE; [place] 00 Sig: Use Medical as Branch directed; ICD-10 codes: Z86.73, G81.94 Arm Brace 2020-0 Yes [id number] PRODUCT: [facility] Misc 8-30 MYOPRO ity of 00:00: BRACE; [place] 00 Sig: Use Medical as Branch directed; ICD-10 codes: Z86.73, G81.94 Arm Brace 2020-0 Yes [id number] PRODUCT: [facility] Misc 8-30 MYOPRO ity of 00:00: BRACE; [place] 00 Sig: Use Medical as Branch directed; ICD-10 codes: Z86.73, G81.94 Arm Brace 2020-0 Yes [id number] PRODUCT: [facility] Misc 8-30 MYOPRO ity of 00:00: BRACE; [place] 00 Sig: Use Medical as Branch directed; ICD-10 codes: Z86.73, G81.94 Arm Brace 2020-0 Yes [id number] PRODUCT: [facility] Misc 8-30 MYOPRO ity of 00:00: BRACE; [place] 00 Sig: Use Medical as Branch directed; ICD-10 codes: Z86.73, G81.94 Arm Brace 2020-0 Yes [id number] PRODUCT: [facility] Misc 8-30 MYOPRO ity of 00:00: BRACE; [place] 00 Sig: Use Medical as Branch directed; ICD-10 codes: Z86.73, G81.94 Arm Brace 202-0 Yes [id number] PRODUCT: [facility] Misc 8-30 MYOPRO ity of 00:00: BRACE; [place] 00 Sig: Use Medical as Branch directed; ICD-10 codes: Z86.73, G81.94 Arm Brace 2020-0 Yes [id number] PRODUCT: [facility] Misc 8-30 MYOPRO ity of 00:00: BRACE; [place] 00 Sig: Use Medical as Branch directed; ICD-10 codes: Z86.73, G81.94 Arm Brace 2020-0 Yes [id number] PRODUCT: [facility] Misc 8-30 MYOPRO ity of 00:00: BRACE; [place] 00 Sig: Use Medical as Branch directed; ICD-10 codes: Z86.73, G81.94 Arm Brace 2020-0 Yes [id number] PRODUCT: [facility] Misc 8-30 MYOPRO ity of 00:00: BRACE; [place] 00 Sig: Use Medical as Branch directed; ICD-10 codes: Z86.73, G81.94 Arm Brace 2020-0 Yes [id number] PRODUCT: [facility] Misc 8-30 MYOPRO ity of 00:00: BRACE; [place] 00 Sig: Use Medical as Branch directed; ICD-10 codes: Z86.73, G81.94 Arm Brace 2020-0 Yes [id number] PRODUCT: [facility] Misc 8-30 MYOPRO ity of 00:00: BRACE; [place] 00 Sig: Use Medical as Branch directed; ICD-10 codes: Z86.73, G81.94 Arm Brace 2020-0 Yes [id number] PRODUCT: [facility] Misc 8-30 MYOPRO ity of 00:00: BRACE; [place] 00 Sig: Use Medical as Branch directed; ICD-10 codes: Z86.73, G81.94 Arm Brace 2020-0 Yes [id number] PRODUCT: [facility] Misc 8-30 MYOPRO ity of 00:00: BRACE; [place] 00 Sig: Use Medical as Branch directed; ICD-10 codes: Z86.73, G81.94 Arm Brace 202-0 Yes [id number] PRODUCT: [facility] Misc 8-30 MYOPRO ity of 00:00: BRACE; [place] 00 Sig: Use Medical as Branch directed; ICD-10 codes: Z86.73, G81.94 Arm Brace 202-0 Yes [id number] PRODUCT: [facility] Misc 8-30 MYOPRO ity of 00:00: BRACE; [place] 00 Sig: Use Medical as Branch directed; ICD-10 codes: Z86.73, G81.94 Arm Brace 2020-0 Yes [id number] PRODUCT: [facility] Misc 8-30 MYOPRO ity of 00:00: BRACE; [place] 00 Sig: Use Medical as Branch directed; ICD-10 codes: Z86.73, G81.94 Arm Brace 2020-0 Yes [id number] PRODUCT: [facility] Misc 8-30 MYOPRO ity of 00:00: BRACE; [place] 00 Sig: Use Medical as Branch directed; ICD-10 codes: Z86.73, G81.94 Arm Brace 2020-0 Yes [id number] PRODUCT: [facility] Misc 8-30 MYOPRO ity of 00:00: BRACE; [place] 00 Sig: Use Medical as Branch directed; ICD-10 codes: Z86.73, G81.94 Arm Brace 2020-0 Yes [id number] PRODUCT: [facility] Misc 8-30 MYOPRO ity of 00:00: BRACE; [place] 00 Sig: Use Medical as Branch directed; ICD-10 codes: Z86.73, G81.94 Arm Brace 2020-0 Yes [id number] PRODUCT: [facility] Misc 8-30 MYOPRO ity of 00:00: BRACE; [place] 00 Sig: Use Medical as Branch directed; ICD-10 codes: Z86.73, G81.94 Arm Brace 2020-0 Yes [id number] PRODUCT: [facility] Misc 8-30 MYOPRO ity of 00:00: BRACE; [place] 00 Sig: Use Medical as Branch directed; ICD-10 codes: Z86.73, G81.94 Arm Brace 2020-0 Yes [id number] PRODUCT: [facility] Misc 8-30 MYOPRO ity of 00:00: BRACE; [place] 00 Sig: Use Medical as Branch directed; ICD-10 codes: Z86.73, G81.94 Arm Brace 2020-0 Yes [id number] PRODUCT: [facility] Misc 8-30 MYOPRO ity of 00:00: BRACE; [place] 00 Sig: Use Medical as Branch directed; ICD-10 codes: Z86.73, G81.94 Arm Brace 202-0 Yes [id number] PRODUCT: [facility] Misc 8-30 MYOPRO ity of 00:00: BRACE; [place] 00 Sig: Use Medical as Branch directed; ICD-10 codes: Z86.73, G81.94 Arm Brace 2021-0 Yes [id number] PRODUCT: [facility] Misc 8-30 MYOPRO ity of 00:00: BRACE; [place] 00 Sig: Use Medical as Branch directed; ICD-10 codes: Z86.73, G81.94 Arm Brace 2020-0 Yes [id number] PRODUCT: [facility] Misc 8-30 MYOPRO ity of 00:00: BRACE; [place] 00 Sig: Use Medical as Branch directed; ICD-10 codes: Z86.73, G81.94 Arm Brace 2020-0 Yes [id number] PRODUCT: [facility] Misc 8-30 MYOPRO ity of 00:00: BRACE; [place] 00 Sig: Use Medical as Branch directed; ICD-10 codes: Z86.73, G81.94 Arm Brace 2020-0 Yes [id number] PRODUCT: [facility] Misc 8-30 MYOPRO ity of 00:00: BRACE; [place] 00 Sig: Use Medical as Branch directed; ICD-10 codes: Z86.73, G81.94 Arm Brace 2020-0 Yes [id number] PRODUCT: [facility] Misc 8-30 MYOPRO ity of 00:00: BRACE; [place] 00 Sig: Use Medical as Branch directed; ICD-10 codes: Z86.73, G81.94 Arm Brace 2020-0 Yes [id number] PRODUCT: [facility] Misc 8-30 MYOPRO ity of 00:00: BRACE; [place] 00 Sig: Use Medical as Branch directed; ICD-10 codes: Z86.73, G81.94 Arm Brace 2020-0 Yes [id number] PRODUCT: [facility] Misc 8-30 MYOPRO ity of 00:00: BRACE; [place] 00 Sig: Use Medical as Branch directed; ICD-10 codes: Z86.73, G81.94 Arm Brace 2021-0 Yes [id number] PRODUCT: [facility] Misc 8-30 MYOPRO ity of 00:00: BRACE; [place] 00 Sig: Use Medical as Branch directed; ICD-10 codes: Z86.73, G81.94 Arm Brace 202-0 Yes [id number] PRODUCT: [facility] Misc 8-30 MYOPRO ity of 00:00: BRACE; [place] 00 Sig: Use Medical as Branch directed; ICD-10 codes: Z86.73, G81.94 Arm Brace 202-0 Yes [id number] PRODUCT: [facility] Misc 8-30 MYOPRO ity of 00:00: BRACE; [place] 00 Sig: Use Medical as Branch directed; ICD-10 codes: Z86.73, G81.94 Arm Brace 2020-0 Yes [id number] PRODUCT: [facility] Misc 8-30 MYOPRO ity of 00:00: BRACE; [place] 00 Sig: Use Medical as Branch directed; ICD-10 codes: Z86.73, G81.94 Arm Brace 2020-0 Yes [id number] PRODUCT: [facility] Misc 8-30 MYOPRO ity of 00:00: BRACE; [place] 00 Sig: Use Medical as Branch directed; ICD-10 codes: Z86.73, G81.94 Arm Brace 2020-0 Yes [id number] PRODUCT: [facility] Misc 8-30 MYOPRO ity of 00:00: BRACE; [place] 00 Sig: Use Medical as Branch directed; ICD-10 codes: Z86.73, G81.94 Arm Brace 2020-0 Yes [id number] PRODUCT: [facility] Misc 8-30 MYOPRO ity of 00:00: BRACE; [place] 00 Sig: Use Medical as Branch directed; ICD-10 codes: Z86.73, G81.94 Arm Brace 2020-0 Yes [id number] PRODUCT: [facility] Misc 8-30 MYOPRO ity of 00:00: BRACE; [place] 00 Sig: Use Medical as Branch directed; ICD-10 codes: Z86.73, G81.94 Arm Brace 2020-0 Yes [id number] PRODUCT: [facility] Misc 8-30 MYOPRO ity of 00:00: BRACE; [place] 00 Sig: Use Medical as Branch directed; ICD-10 codes: Z86.73, G81.94 Arm Brace 2021-0 Yes [id number] PRODUCT: [facility] Misc 8-30 MYOPRO ity of 00:00: BRACE; [place] 00 Sig: Use Medical as Branch directed; ICD-10 codes: Z86.73, G81.94 Arm Brace 202-0 Yes [id number] PRODUCT: [facility] Misc 8-30 MYOPRO ity of 00:00: BRACE; [place] 00 Sig: Use Medical as Branch directed; ICD-10 codes: Z86.73, G81.94 Arm Brace 202-0 Yes [id number] PRODUCT: [facility] Misc 8-30 MYOPRO ity of 00:00: BRACE; [place] 00 Sig: Use Medical as Branch directed; ICD-10 codes: Z86.73, G81.94 Arm Brace 2020-0 Yes [id number] [facility] 00:00: BRACE; [place] 00 Sig: Use Medical as Branch directed; ICD-10 codes: Z86.73, G81.94 Arm Brace 2020-0 Yes [id number] [facility] of 00:00: BRACE; [place] 00 Sig: Use Medical as Branch directed; ICD-10 codes: Z86.73, G81.94 Arm Brace 2020-0 Yes [id number] [facility] of 00:00: BRACE; [place] 00 Sig: Use Medical as Branch directed; ICD-10 codes: Z86.73, G81.94 Arm Brace 2020-0 Yes [id number] [facility] of 00:00: BRACE; [place] 00 Sig: Use Medical as Branch directed; ICD-10 codes: Z86.73, G81.94 Arm Brace 2020-0 Yes [id number] PRODUCT: [facility] Misc 8-30 MYOPRO ity of 00:00: BRACE; [place] 00 Sig: Use Medical as Branch directed; ICD-10 codes: Z86.73, G81.94 Arm Brace 2020-0 Yes [id number] PRODUCT: [facility] Misc 8-30 MYOPRO ity of 00:00: BRACE; [place] 00 Sig: Use Medical as Branch directed; ICD-10 codes: Z86.73, G81.94 Arm Brace 202-0 Yes [id number] PRODUCT: [facility] Misc 8-30 MYOPRO ity of 00:00: BRACE; [place] 00 Sig: Use Medical as Branch directed; ICD-10 codes: Z86.73, G81.94 Arm Brace 202-0 Yes [id number] [facility] of 00:00: BRACE; [place] 00 Sig: Use Medical as Branch directed; ICD-10 codes: Z86.73, G81.94 Arm Brace 2020-0 Yes [id number] PRODUCT: [facility] 8-30 MYOPRO ity of 00:00: BRACE; [place] 00 Sig: Use Medical as Branch directed; ICD-10 codes: Z86.73, G81.94 Arm Brace 2020-0 Yes [id number] PRODUCT: [facility] 8-30 MYOPRO ity of 00:00: BRACE; [place] 00 Sig: Use Medical as Branch directed; ICD-10 codes: Z86.73, G81.94 Arm Brace 2020-0 Yes [id number] PRODUCT: [facility] 8-30 MYOPRO ity of 00:00: BRACE; [place] 00 Sig: Use Medical as Branch directed; ICD-10 codes: Z86.73, G81.94 Arm Brace 2020-0 Yes [id number] PRODUCT: [facility] 8-30 MYOPRO ity of 00:00: BRACE; [place] 00 Sig: Use Medical as Branch directed; ICD-10 codes: Z86.73, G81.94 Arm Brace 2020-0 Yes [id number] PRODUCT: [facility] 8-30 MYOPRO ity of 00:00: BRACE; [place] 00 Sig: Use Medical as Branch directed; ICD-10 codes: Z86.73, G81.94 Arm Brace 2020-0 Yes [id number] PRODUCT: [facility] 8-30 MYOPRO ity of 00:00: BRACE; [place] 00 Sig: Use Medical as Branch directed; ICD-10 codes: Z86.73, G81.94 Arm Brace 2020-0 Yes [id number] [facility]: [facility] ity of 00:00: BRACE; [place] 00 Sig: Use Medical as Branch directed; ICD-10 codes: Z86.73, G81.94 Arm Brace 2020-0 Yes [id number] PRODUCT: [facility] 8-30 MYOPRO ity of 00:00: BRACE; [place] 00 Sig: Use Medical as Branch directed; ICD-10 codes: Z86.73, G81.94 Arm Brace 202-0 Yes [id number] [facility]: [facility] ity of 00:00: BRACE; [place] 00 Sig: Use Medical as Branch directed; ICD-10 codes: Z86.73, G81.94 Arm Brace 2020-0 Yes [id number] PRODUCT: [facility] 8-30 MYOPRO ity of 00:00: BRACE; [place] 00 Sig: Use Medical as Branch directed; ICD-10 codes: Z86.73, G81.94 Arm Brace 2020-0 Yes [id number] PRODUCT: [facility] 8-30 MYOPRO ity of 00:00: BRACE; [place] 00 Sig: Use Medical as Branch directed; ICD-10 codes: Z86.73, G81.94 Arm Brace 2020-0 Yes [id number] PRODUCT: [facility] 8-30 MYOPRO ity of 00:00: BRACE; [place] 00 Sig: Use Medical as Branch directed; ICD-10 codes: Z86.73, G81.94 Arm Brace 2020-0 Yes [id number] PRODUCT: [facility] 8-30 MYOPRO ity of 00:00: BRACE; [place] 00 Sig: Use Medical as Branch directed; ICD-10 codes: Z86.73, G81.94 Arm Brace 2020-0 Yes [id number] PRODUCT: [facility] 8-30 MYOPRO ity of 00:00: BRACE; [place] 00 Sig: Use Medical as Branch directed; ICD-10 codes: Z86.73, G81.94 Arm Brace 2020-0 Yes [id number] PRODUCT: [facility] 8-30 MYOPRO ity of 00:00: BRACE; [place] 00 Sig: Use Medical as Branch directed; ICD-10 codes: Z86.73, G81.94 Arm Brace 2020-0 Yes [id number] PRODUCT: [facility] MY[facility]RO ity of 00:00: BRACE; [place] 00 Sig: Use Medical as Branch directed; ICD-10 codes: Z86.73, G81.94 Arm Brace 2021-0 Yes [id number] PRODUCT: [facility] 8-30 MYOPRO ity of 00:00: BRACE; [place] 00 Sig: Use Medical as Branch directed; ICD-10 codes: Z86.73, G81.94 Arm Brace 2020-0 Yes [id number] PR[facility]: [facility] MY[facility] ity of 00:00: BRACE; [place] 00 Sig: Use Medical as Branch directed; ICD-10 codes: Z86.73, G81.94 Arm Brace 2020-0 Yes [id number] PRODUCT: [facility] MY[facility]RO ity of 00:00: BRACE; [place] 00 Sig: Use Medical as Branch directed; ICD-10 codes: Z86.73, G81.94 Arm Brace 2020-0 Yes [id number] PRODUCT: [facility] MY[facility] ity of 00:00: BRACE; [place] 00 Sig: Use Medical as Branch directed; ICD-10 codes: Z86.73, G81.94 Arm Brace 2020-0 Yes [id number] PRODUCT: [facility] MYOPRO ity of 00:00: BRACE; [place] 00 Sig: Use Medical as Branch directed; ICD-10 codes: Z86.73, G81.94 Arm Brace 2020-0 Yes [id number] PRODUCT: [facility] 8-30 MYOPRO ity of 00:00: BRACE; [place] 00 Sig: Use Medical as Branch directed; ICD-10 codes: Z86.73, G81.94 Arm Brace 2020-0 Yes [id number] PRODUCT: [facility] 8-30 MYOPRO ity of 00:00: BRACE; [place] 00 Sig: Use Medical as Branch directed; ICD-10 codes: Z86.73, G81.94 Arm Brace 2020-0 Yes [id number] PRODUCT: [facility] MYOPRO ity of 00:00: BRACE; [place] 00 Sig: Use Medical as Branch directed; ICD-10 codes: Z86.73, G81.94 Arm Brace 2020-0 Yes [id number] PRODUCT: [facility] MYOPRO ity of 00:00: BRACE; [place] 00 Sig: Use Medical as Branch directed; ICD-10 codes: Z86.73, G81.94 Arm Brace Yes [id number] PRODUCT: [facility] MY[facility]RO ity of 00:00: BRACE; [place] 00 Sig: Use Medical as Branch directed; ICD-10 codes: Z86.73, G81.94 Arm Brace Yes [id number] PRODUCT: [facility] MY[facility]RO ity of 00:00: BRACE; [place] 00 Sig: Use Medical as Branch directed; ICD-10 codes: Z86.73, G81.94 Arm Brace 2023- No [id number] [facility] MY[facility] ity of 00:00: 00:00 BRACE; [place] 00 :00 Sig: Use Medical as Branch directed; ICD-10 codes: Z86.73, G81.94 KCL 10 mEq Yes 10meq Take 10 Uni vers tablet 8-06 mEq by ity of 15:56: mouth 2 [place] [address] (two) Medical times Branch daily. zinc Yes Take by Univers sulfate 8-06 mouth ity of (ZINC-220 15:56: daily. [place] ORAL) 37 Medical Branch KCL 10 mEq Yes 10meq Take 10 Uni vers tablet 8-06 mEq by ity of 15:56: mouth 2 [place] [address] (two) Medical times Branch daily. zinc Yes Take by Univers sulfate 8-06 mouth ity of (ZINC-220 15:56: daily. [place] ORAL) 37 Medical Branch KCL 10 mEq Yes 10meq Take 10 Uni vers tablet 8-06 mEq by ity of 15:56: mouth 2 [place] [address] (two) Medical times Branch daily. zinc 0 Yes Take by Univers sulfate 8-06 mouth ity of (ZINC-220 15:56: daily. [place] ORAL) 37 Medical Branch KCL 10 mEq 0 Yes 10meq Take 10 Uni vers tablet 8-06 mEq by ity of 15:56: mouth 2 [place] [address] (two) Medical times Branch daily. zinc 0 Yes Take by Univers sulfate 8-06 mouth ity of (ZINC-220 15:56: daily. [place] ORAL) 37 Medical Branch gluc 0 Yes Take by Univers hernandez/chondro 8-06 mouth [...] as Branch needed. zinc oxide 2020-0 Yes [id number] Apply to Univers 3.8 % Oint 8-06 buttock ity of 00:00: [place] [address] Medical Branch zinc oxide 1-0 Yes [id number] Apply to Univers 3.8 % Oint 8-06 buttock ity of 00:00: [place] [address] Medical Branch zinc oxide 2020-0 Yes [id number] Apply to Univers 3.8 % Oint 8-06 buttock ity of 00:00: [place] [address] Medical Branch zinc oxide 2020-0 Yes [id number] Apply to Univers 3.8 % Oint 8-06 buttock ity of 00:00: [place] [address] Medical Branch zinc oxide 202-0 2022- No [id number] Apply to Univers 3.8 % Oint 8-06 07-20 buttock ity o f 00:00: 00:00 area [place] 00 :00 Medical Branch Miscellaneo 202-0 Yes [id number] [facility] 08-12 : Use as ity o f Supply Misc 00:00: directed; [place] ICD-10 Medical Z86.73, Branch I69.90, G81.94 Miscellaneo 2020-0 Yes [id number] [facility] 08-12 : Use as ity o f Supply Misc 00:00: directed; [place] ICD-10 Medical Z86.73, Branch I69.90, G81.94 Miscellaneo 0 Yes [id number] [facility] 08-12 : Use as ity o f Supply Misc 00:00: directed; [place] ICD-10 Medical Z86.73, Branch I69.90, G81.94 Miscellaneo 0 Yes [id number] [facility] 08-12 : Use as ity o f Supply Misc 00:00: directed; [place] ICD-10 Medical Z86.73, Branch I69.90, G81.94 Miscellaneo 0 Yes [id number] [facility] 08-12 : Use as ity o f Supply Misc 00:00: directed; [place] ICD-10 Medical Z86.73, Branch I69.90, G81.94 Miscellaneo 2020-0 Yes [id number] [facility] 08-12 : Use as ity of Supply Misc 00:00: directed; [place] ICD-10 Medical Z86.73, Branch I69.90, G81.94 Miscellaneo 0 Yes [id number] [facility] 08-12 : Use as ity o f Supply Misc 00:00: directed; [place] ICD-10 Medical Z86.73, Branch I69.90, G81.94 Miscellaneo 0 Yes [id number] [facility] 08-12 : Use as ity o f Supply Misc 00:00: directed; [place] ICD-10 Medical Z86.73, Branch I69.90, G81.94 Miscellaneo 2020-0 Yes [id number] [facility] 08-12 : Use as ity o f Supply Misc 00:00: directed; [place] ICD-10 Medical Z86.73, Branch I69.90, G81.94 Miscellaneo 2020-0 Yes [id number] [facility] 08-12 : Use as ity o f Supply Misc 00:00: directed; [place] ICD-10 Medical Z86.73, Branch I69.90, G81.94 Miscellaneo 0 Yes [id number] [facility] 08-12 : Use as ity o f Supply Misc 00:00: directed; [place] ICD-10 Medical Z86.73, Branch I69.90, G81.94 Miscellaneo 0 Yes [id number] [facility] 08-12 : Use as ity o f Supply Misc 00:00: directed; [place] ICD-10 Medical Z86.73, Branch I69.90, G81.94 Miscellaneo 2020-0 Yes [id number] [facility] 08-12 : Use as ity o f Supply Misc 00:00: directed; [place] ICD-10 Medical Z86.73, Branch I69.90, G81.94 Miscellaneo 2020-0 Yes [id number] [facility] 08-12 : Use as ity o f Supply Misc 00:00: directed; [place] ICD-10 Medical Z86.73, Branch I69.90, G81.94 Miscellaneo 2020-0 Yes [id number] [facility] 08-12 : Use as ity o f Supply Misc 00:00: directed; [place] ICD-10 Medical Z86.73, Branch I69.90, G81.94 Miscellaneo 2020-0 Yes [id number] [facility] 08-12 : Use as ity o f Supply Misc 00:00: directed; [place] ICD-10 Medical Z86.73, Branch I69.90, G81.94 Miscellaneo 2020-0 Yes [id number] [facility] Use as ity o f Supply Misc 00:00: directed; [place] ICD-10 Medical Z86.73, Branch I69.90, G81.94 Miscellaneo 2020-0 Yes [id number] [facility] 08-12 : Use as ity o f Supply Misc 00:00: directed; [place] ICD-10 Medical Z86.73, Branch I69.90, G81.94 Miscellaneo 0 Yes [id number] [facility] 08-12 : Use as ity o f Supply Misc 00:00: directed; [place] ICD-10 Medical Z86.73, Branch I69.90, G81.94 Miscellaneo 0 Yes [id number] [facility] 08-12 : Use as ity o f Supply Misc 00:00: directed; [place] ICD-10 Medical Z86.73, Branch I69.90, G81.94 Miscellaneo 0 Yes [id number] [facility] 08-12 : Use as ity o f Supply Misc 00:00: directed; [place] ICD-10 Medical Z86.73, Branch I69.90, G81.94 Miscellaneo 2020-0 Yes [id number] [facility] 08-12 : Use as ity o f Supply Misc 00:00: directed; [place] ICD-10 Medical Z86.73, Branch I69.90, G81.94 Miscellaneo 2020-0 Yes [id number] [facility] 08-12 : Use as ity o f Supply Misc 00:00: directed; [place] ICD-10 Medical Z86.73, Branch I69.90, G81.94 Miscellaneo 2020-0 Yes [id number] [facility] 08-12 : Use as ity o f Supply Misc 00:00: directed; [place] ICD-10 Medical Z86.73, Branch I69.90, G81.94 Miscellaneo 2020-0 Yes [id number] [facility] 08-12 : Use as ity o f Supply Misc 00:00: directed; [place] ICD-10 Medical Z86.73, Branch I69.90, G81.94 Miscellaneo 2020-0 Yes [id number] [facility] 08-12 : Use as ity o f Supply Misc 00:00: directed; [place] ICD-10 Medical Z86.73, Branch I69.90, G81.94 Miscellaneo 0 Yes [id number] [facility] 08-12 : Use as ity o f Supply Misc 00:00: directed; [place] ICD-10 Medical Z86.73, Branch I69.90, G81.94 Miscellaneo 0 Yes [id number] [facility] 08-12 : Use as ity o f Supply Misc 00:00: directed; [place] ICD-10 Medical Z86.73, Branch I69.90, G81.94 Miscellaneo 0 Yes [id number] [facility] 08-12 : Use as ity o f Supply Misc 00:00: directed; [place] ICD-10 Medical Z86.73, Branch I69.90, G81.94 Miscellaneo 0 Yes [id number] [facility] 08-12 : Use as ity o f Supply Misc 00:00: directed; [place] ICD-10 Medical Z86.73, Branch I69.90, G81.94 Miscellaneo 2020-0 Yes [id number] [facility] 08-12 : Use as ity o f Supply Misc 00:00: directed; [place] ICD-10 Medical Z86.73, Branch I69.90, G81.94 Miscellaneo 2020-0 Yes [id number] [facility] 08-12 : Use as ity o f Supply Misc 00:00: directed; [place] ICD-10 Medical Z86.73, Branch I69.90, G81.94 Miscellaneo 0 Yes [id number] [facility] 08-12 : Use as ity o f Supply Misc 00:00: directed; [place] ICD-10 Medical Z86.73, Branch I69.90, G81.94 Miscellaneo 0 Yes [id number] [facility] 08-12 : Use as ity o f Supply Misc 00:00: directed; [place] ICD-10 Medical Z86.73, Branch I69.90, G81.94 Miscellaneo 0 Yes [id number] [facility] 08-12 : Use as ity o f Supply Misc 00:00: directed; [place] ICD-10 Medical Z86.73, Branch I69.90, G81.94 Miscellaneo 0 Yes [id number] [facility] 08-12 : Use as ity o f Supply Misc 00:00: directed; [place] ICD-10 Medical Z86.73, Branch I69.90, G81.94 Miscellaneo 0 Yes [id number] [facility] 08-12 : Use as ity o f Supply Misc 00:00: directed; [place] ICD-10 Medical Z86.73, Branch I69.90, G81.94 Miscellaneo 0 Yes [id number] [facility] 08-12 : Use as ity o f Supply Misc 00:00: directed; [place] ICD-10 Medical Z86.73, Branch I69.90, G81.94 Miscellaneo 0 Yes [id number] [facility] 08-12 : Use as ity o f Supply Misc 00:00: directed; [place] ICD-10 Medical Z86.73, Branch I69.90, G81.94 Miscellaneo 0 Yes [id number] [facility] 08-12 : Use as ity o f Supply Misc 00:00: directed; [place] ICD-10 Medical Z86.73, Branch I69.90, G81.94 Miscellaneo 0 Yes [id number] [facility] 08-12 : Use as ity o f Supply Misc 00:00: directed; [place] ICD-10 Medical Z86.73, Branch I69.90, G81.94 Miscellaneo 0 Yes [id number] [facility] f [facility] Misc 00:00: directed; [place] ICD-10 Medical Z86.73, Branch I69.90, G81.94 Miscellaneo 0 Yes [id number] [facility] 08-12 : Use as ity o f Supply Misc 00:00: directed; [place] ICD-10 Medical Z86.73, Branch I69.90, G81.94 Miscellaneo 0 Yes [id number] [facility] 08-12 : Use as ity o f Supply Misc 00:00: directed; [place] ICD-10 Medical Z86.73, Branch I69.90, G81.94 Miscellaneo 0 Yes [id number] [facility] 08-12 : Use as ity o f Supply Misc 00:00: directed; [place] ICD-10 Medical Z86.73, Branch I69.90, G81.94 Miscellaneo 0 Yes [id number] [facility] 08-12 : Use as ity o f Supply Misc 00:00: directed; [place] ICD-10 Medical Z86.73, Branch I69.90, G81.94 Miscellaneo 0 Yes [id number] [facility] 08-12 : Use as ity o f Supply Misc 00:00: directed; [place] ICD-10 Medical Z86.73, Branch I69.90, G81.94 Miscellaneo 0 Yes [id number] [facility] 08-12 : Use as ity o f Supply Misc 00:00: directed; [place] ICD-10 Medical Z86.73, Branch I69.90, G81.94 Miscellaneo Yes [id number] [facility] 08-12 : Use as ity o f Supply Misc 00:00: directed; [place] ICD-10 Medical Z86.73, Branch I69.90, G81.94 Miscellaneo Yes [id number] [facility] 08-12 : Use as ity o f Supply Misc 00:00: directed; [place] ICD-10 Medical Z86.73, Branch I69.90, G81.94 Miscellaneo Yes [id number] [facility] 08-12 : Use as ity o f Supply Misc 00:00: directed; [place] ICD-10 Medical Z86.73, Branch I69.90, G81.94 Miscellaneo Yes [id number] [facility] 08-12 : Use as ity o f Supply Misc 00:00: directed; [place] ICD-10 Medical Z86.73, Branch I69.90, G81.94 Miscellaneo Yes [id number] [facility] 08-12 : Use as ity o f Supply Misc 00:00: directed; [place] ICD-10 Medical Z86.73, Branch I69.90, G81.94 Miscellaneo Yes [id number] [facility] 08-12 : Use as ity o f Supply Misc 00:00: directed; [place] ICD-10 Medical Z86.73, Branch I69.90, G81.94 Miscellaneo Yes [id number] [facility] 08-12 : Use as ity o f Supply Misc 00:00: directed; [place] ICD-10 Medical Z86.73, Branch I69.90, G81.94 Miscellaneo 0 Yes [id number] [facility] 08-12 : Use as ity of Supply Misc 00:00: directed; [place] ICD-10 Medical Z86.73, Branch I69.90, G81.94 Miscellaneo Yes [id number] [facility] 08[facility] : Use as ity o f Supply Misc 00:00: directed; [place] ICD-10 Medical Z86.73, Branch I69.90, G81.94 Miscellaneo Yes [id number] [facility] 08-12 : Use as ity o f Supply Misc 00:00: directed; [place] ICD-10 Medical Z86.73, Branch I69.90, G81.94 Miscellaneo Yes [id number] [facility] 08-12 : Use as ity o f Supply Misc 00:00: directed; [place] ICD-10 Medical Z86.73, Branch I69.90, G81.94 Miscellaneo Yes [id number] [facility] 08-12 : Use as ity o f Supply Misc 00:00: directed; [place] ICD-10 Medical Z86.73, Branch I69.90, G81.94 Miscellaneo Yes [id number] [facility] 08-12 : Use as ity o f Supply Misc 00:00: directed; [place] ICD-10 Medical Z86.73, Branch I69.90, G81.94 Miscellaneo Yes [id number] [facility] 08-12 : Use as ity o f Supply Misc 00:00: directed; [place] ICD-10 Medical Z86.73, Branch I69.90, G81.94 Miscellaneo Yes [id number] [facility] 08-12 : Use as ity o f Supply Misc 00:00: directed; [place] ICD-10 Medical Z86.73, Branch I69.90, G81.94 Miscellaneo Yes [id number] [facility] 08-12 : Use as ity o f Supply Misc 00:00: directed; [place] ICD-10 Medical Z86.73, Branch I69.90, G81.94 Miscellaneo Yes [id number] [facility] 08-12 : Use as ity o f Supply Misc 00:00: directed; [place] ICD-10 Medical Z86.73, Branch I69.90, G81.94 Miscellaneo Yes [id number] [facility] Use as ity o f Supply Misc 00:00: directed; [place] ICD-10 Medical Z86.73, Branch I69.90, G81.94 Miscellaneo Yes [id number] [facility]y o f Supply Misc 00:00: directed; [place] ICD-10 Medical Z86.73, Branch I69.90, G81.94 Miscellaneo Yes [id number] [facility] 08-12 : Use as ity o f Supply Misc 00:00: directed; [place] ICD-10 Medical Z86.73, Branch I69.90, G81.94 Miscellaneo Yes [id number] [facility] 08-12 : Use as ity o f Supply Misc 00:00: directed; [place] ICD-10 Medical Z86.73, Branch I69.90, G81.94 Miscellaneo Yes [id number] [facility] 08-12 : Use as ity o f Supply Misc 00:00: directed; ex ICD-10 Medical Z86.73, Branch I69.90, G81.94 Miscellaneo Yes [id number] [facility] 08-12 : Use as ity o f Supply Misc 00:00: directed; ex ICD-10 Medical Z86.73, Branch I69.90, G81.94 Miscellaneo Yes [id number] [facility] 08-12 : Use as ity o f Supply Misc 00:00: directed; ex ICD-10 Medical Z86.73, Branch I69.90, G81.94 Miscellaneo 2021-0 Yes [id number] [facility] 08-12 : Use as ity o f Supply Misc 00:00: directed; [place] ICD-10 Medical Z86.73, Branch I69.90, G81.94 Miscellaneo Yes [id number] [facility] 08-12 : Use as ity o f Supply Misc 00:00: directed; [place] ICD-10 Medical Z86.73, Branch I69.90, G81.94 Miscellaneo 0 Yes [id number] [facility] 08-12 : Use as ity o f Supply Misc 00:00: directed; [place] ICD-10 Medical Z86.73, Branch I69.90, G81.94 Miscellaneo Yes [id number] [facility] 08-12 : Use as ity o f Supply Misc 00:00: directed; [place] ICD-10 Medical Z86.73, Branch I69.90, G81.94 Miscellaneo Yes [id number] [facility] 08-12 : Use as ity o f Supply Misc 00:00: directed; [place] ICD-10 Medical Z86.73, Branch I69.90, G81.94 Miscellaneo Yes [id number] [facility] 08-12 : Use as ity o f Supply Misc 00:00: directed; [place] ICD-10 Medical Z86.73, Branch I69.90, G81.94 Miscellaneo Yes [id number] [facility] 08-12 : Use as ity o f Supply Misc 00:00: directed; [place] ICD-10 Medical Z86.73, Branch I69.90, G81.94 Miscellaneo Yes [id number] [facility] 08-12 : Use as ity o f Supply Misc 00:00: directed; [place] ICD-10 Medical Z86.73, Branch I69.90, G81.94 Miscellaneo Yes [id number] [facility] 08-12 : Use as ity o f Supply Misc 00:00: directed; [place] ICD-10 Medical Z86.73, Branch I69.90, G81.94 Miscellaneo 0 Yes [id number] [facility] 08-12 : Use as ity o f Supply Misc 00:00: directed; [place] ICD-10 Medical Z86.73, Branch I69.90, G81.94 Miscellaneo 0 Yes [id number] [facility] 08-12 : Use as ity o f Supply Misc 00:00: directed; [place] ICD-10 Medical Z86.73, Branch I69.90, G81.94 Miscellaneo 0 Yes [id number] [facility] 08-12 : Use as ity o f Supply Misc 00:00: directed; [place] ICD-10 Medical Z86.73, Branch I69.90, G81.94 Miscellaneo 0 Yes [id number] [facility] 08-12 : Use as ity o f Supply Misc 00:00: directed; [place] ICD-10 Medical Z86.73, Branch I69.90, G81.94 Miscellaneo 0 Yes [id number] [facility] 08-12 : Use as ity o f Supply Misc 00:00: directed; [place] ICD-10 Medical Z86.73, Branch I69.90, G81.94 Miscellaneo 0 Yes [id number] [facility] 08-12 : Use as ity o f Supply Misc 00:00: directed; [place] ICD-10 Medical Z86.73, Branch I69.90, G81.94 Miscellaneo 0 Yes [id number] [facility] 08-12 : Use as ity o f Supply Misc 00:00: directed; [place] ICD-10 Medical Z86.73, Branch I69.90, G81.94 Miscellaneo 0 Yes [id number] [facility] 08-12 : Use as ity o f Supply Misc 00:00: directed; [place] ICD-10 Medical Z86.73, Branch I69.90, G81.94 Miscellaneo Yes [id number] [facility] 08-12 : Use as ity o f Supply Misc 00:00: directed; [place] ICD-10 Medical Z86.73, Branch I69.90, G81.94 Miscellaneo 0 Yes [id number] [facility] 08-12 : Use as ity o f Supply Misc 00:00: directed; [place] ICD-10 Medical Z86.73, Branch I69.90, G81.94 Miscellaneo Yes [id number] [facility] 08-12 : Use as ity o f Supply Misc 00:00: directed; [place] ICD-10 Medical Z86.73, Branch I69.90, G81.94 Miscellaneo 0 Yes [id number] [facility] 08-12 : Use as ity o f Supply Misc 00:00: directed; [place] ICD-10 Medical Z86.73, Branch I69.90, G81.94 Miscellaneo 2022- No [id number] [facility] 08-1209 : Use as ity of Supply Misc 00:00: 00:00 directed; [place] 00 :00 ICD-10 Medical Z86.73, Branch I69.90, G81.94 VENTOLIN [...] Branch NEEDED FOR SHORTNESS OF BREATH VENTOLIN 2019-02- No INHALE 2 Univ ers HFA 90 [...] solution ipratropium 2019-02- No Unive rs -albuteroL 02-23- ity of 0.5 mg-3 00:00: 00:00 [place] mg(2.5 mg 00 :00 Medical base)/3 mL Branch nebulizer solution ipratropium 2019-02- No Unive rs -albuteroL 02-23-03 ity of 0.5 mg-3 00:00: 00:00 [place] mg(2.5 mg 00 :00 Medical base)/3 mL Branch nebulizer solution Immunizations Ordered Filled Immunization Date Status Comments [facility] e Immunization Name Name SARS-COV-2 COVID-19 2020-11-01 Completed Unive rsity of PFIZER VACCINE 00:00:00 [facility] SARS-COV-2 COVID-19 2020-11-01 Completed Unive rsity of PFIZER VACCINE 00:00:00 [facility] SARS-COV-2 COVID-19 2020-11-01 Completed Unive rsity of PFIZER VACCINE 00:00:00 [facility] SARS-COV-2 COVID-19 2020-11-01 Completed Unive rsity of PFIZER VACCINE 00:00:00 [facility] SARS-COV-2 COVID-19 2020-11-01 Completed Unive rsity of PFIZER VACCINE 00:00:00 [facility] SARS-COV-2 COVID-19 2020-11-01 Completed Unive rsity of PFIZER VACCINE 00:00:00 [facility] SARS-COV-2 COVID-19 2020-11-01 Completed Unive rsity of PFIZER VACCINE 00:00:00 [facility] SARS-COV-2 COVID-19 2020-11-01 Completed Unive rsity of PFIZER VACCINE 00:00:00 [facility] SARS-COV-2 COVID-19 2020-11-01 Completed Unive rsity of PFIZER VACCINE 00:00:00 [facility] SARS-COV-2 COVID-19 2020-11-01 Completed Unive rsity of PFIZER VACCINE 00:00:00 [facility] SARS-COV-2 COVID-19 2020-11-01 Completed Unive rsity of PFIZER VACCINE 00:00:00 [facility] SARS-COV-2 COVID-19 2020-11-01 Completed Unive rsity of PFIZER VACCINE 00:00:00 [facility] SARS-COV-2 COVID-19 2020-11-01 Completed Unive rsity of PFIZER VACCINE 00:00:00 [facility] SARS-COV-2 COVID-19 2020-11-01 Completed Unive rsity of PFIZER VACCINE 00:00:00 [facility] SARS-COV-2 COVID-19 2020-11-01 Completed Unive rsity of PFIZER VACCINE 00:00:00 [facility] Branch SARS-COV-2 COVID-19 2020-11-01 Completed Unive rsity of PFIZER VACCINE 00:00:00 [facility] SARS-COV-2 COVID-19 2020-11-01 Completed Unive rsity of PFIZER VACCINE 00:00:00 [facility] SARS-COV-2 COVID-19 2020-11-01 Completed Unive rsity of PFIZER VACCINE 00:00:00 [facility] SARS-COV-2 COVID-19 2020-11-01 Completed Unive rsity of PFIZER VACCINE 00:00:00 [facility] SARS-COV-2 COVID-19 2020-11-01 Completed Unive rsity of PFIZER VACCINE 00:00:00 [facility] SARS-COV-2 COVID-19 2020-11-01 Completed Unive rsity of PFIZER VACCINE 00:00:00 [facility] SARS-COV-2 COVID-19 2020-11-01 Completed Unive rsity of PFIZER VACCINE 00:00:00 [facility] SARS-COV-2 COVID-19 2020-11-01 Completed Unive rsity of PFIZER VACCINE 00:00:00 [facility] SARS-COV-2 COVID-19 2020-11-01 Completed Unive rsity of PFIZER VACCINE 00:00:00 [facility] SARS-COV-2 COVID-19 2020-11-01 Completed Unive rsity of PFIZER VACCINE 00:00:00 [facility] SARS-COV-2 COVID-19 2020-11-01 Completed Unive rsity of PFIZER VACCINE 00:00:00 [facility] SARS-COV-2 COVID-19 2020-11-01 Completed Unive rsity of PFIZER VACCINE 00:00:00 [facility] SARS-COV-2 COVID-19 2020-11-01 Completed Unive rsity of PFIZER VACCINE 00:00:00 [facility] SARS-COV-2 COVID-19 2020-11-01 Completed Unive rsity of PFIZER VACCINE 00:00:00 [facility] SARS-COV-2 COVID-19 2020-11-01 Completed Unive rsity of PFIZER VACCINE 00:00:00 [facility] SARS-COV-2 COVID-19 2020-11-01 Completed Unive rsity of PFIZER VACCINE 00:00:00 [facility] SARS-COV-2 COVID-19 2020-11-01 Completed Unive rsity of PFIZER VACCINE 00:00:00 [facility] SARS-COV-2 COVID-19 2020-11-01 Completed Unive rsity of PFIZER VACCINE 00:00:00 [facility] SARS-COV-2 COVID-19 2020-11-01 Completed Unive rsity of PFIZER VACCINE 00:00:00 [facility] SARS-COV-2 COVID-19 2020-11-01 Completed Unive rsity of PFIZER VACCINE 00:00:00 [facility] SARS-COV-2 COVID-19 2020-11-01 Completed Unive rsity of PFIZER VACCINE 00:00:00 [facility] SARS-COV-2 COVID-19 2020-11-01 Completed Unive rsity of PFIZER VACCINE 00:00:00 [facility] SARS-COV-2 COVID-19 2020-11-01 Completed Unive rsity of PFIZER VACCINE 00:00:00 [facility] SARS-COV-2 COVID-19 2020-11-01 Completed Unive rsity of PFIZER VACCINE 00:00:00 [facility] SARS-COV-2 COVID-19 2020-11-01 Completed Unive rsity of PFIZER VACCINE 00:00:00 [facility] SARS-COV-2 COVID-19 2020-11-01 Completed Unive rsity of PFIZER VACCINE 00:00:00 [facility] SARS-COV-2 COVID-19 2020-11-01 Completed [facility] PFIZER VACCINE 00:00:00 [facility] SARS-COV-2 COVID-19 2020-11-01 Completed [facility] PFIZER VACCINE 00:00:00 [facility] SARS-COV-2 COVID-19 2020-11-01 Completed [facility] PFIZER VACCINE 00:00:00 [facility] SARS-COV-2 COVID-19 2020-11-01 Completed [facility] PFIZER VACCINE 00:00:00 [facility] SARS-COV-2 COVID-19 2020-11-01 Completed [facility] PFIZER VACCINE 00[facility]00:00 [facility] SARS-COV-2 COVID-19 2020-11-01 Completed [facility] PFIZER VACCINE 00:00:00 [facility] SARS-COV-2 COVID-19 2020-11-01 Completed [facility] PFIZER VACCINE 00:00:00 [facility] SARS-COV-2 COVID-19 2020-11-01 Completed [facility] PFIZER VACCINE 00:00:00 [facility] SARS-COV-2 COVID-19 2020-11-01 Completed [facility] PFIZER VACCINE 00:00:00 [facility] SARS-COV-2 COVID-19 2020-11-01 Completed [facility] PFIZER VACCINE 00:00:00 [facility] SARS-COV-2 COVID-19 2020-11-01 Completed [facility] PFIZER VACCINE 00:00:00 [facility] SARS-COV-2 COVID-19 2020-11-01 Completed [facility] PFIZER VACCINE 00:00:00 [facility] SARS-COV-2 COVID-19 2020-11-01 Completed [facility] PFIZER VACCINE 00:00:00 [facility] SARS-COV-2 COVID-19 2020-11-01 Completed [facility] PFIZER VACCINE 00:00:00 [facility] SARS-COV-2 COVID-19 2020-11-01 Completed [facility] PFIZER VACCINE 00:00:00 [facility] SARS-COV-2 COVID-19 2020-11-01 Completed [facility] PFIZER VACCINE 00:00:00 [facility] SARS-COV-2 COVID-19 2020-11-01 Completed [facility] PFIZER VACCINE 00:00:00 [facility] SARS-COV-2 COVID-19 2020-11-01 Completed [facility] PFIZER VACCINE 00:00:00 [facility] SARS-COV-2 COVID-19 2020-11-01 Completed [facility] PFIZER VACCINE 00:00:00 [facility] SARS-COV-2 COVID-19 2020-11-01 Completed [facility] PFIZER VACCINE 00:00:00 [facility] SARS-COV-2 COVID-19 2020-11-01 Completed [facility] PFIZER VACCINE 00:00:00 [facility] SARS-COV-2 COVID-19 2020-11-01 Completed [facility] PFIZER VACCINE 00:00:00 [facility] SARS-COV-2 COVID-19 2020-11-01 Completed [facility] PFIZER VACCINE 00:00:00 [facility] SARS-COV-2 COVID-19 2020-11-01 Completed [facility] PFIZER VACCINE 00:00:00 [facility] SARS-COV-2 COVID-19 2020-11-01 Completed [facility] PFIZER VACCINE 00:00:00 [facility] SARS-COV-2 COVID-19 2020-11-01 Completed [facility] PFIZER VACCINE 00:00:00 [facility] SARS-COV-2 COVID-19 2020-11-01 Completed [facility] PFIZER VACCINE 00:00:00 [facility] SARS-COV-2 COVID-19 2020-11-01 Completed [facility] PFIZER VACCINE 00:00:00 [facility] SARS-COV-2 COVID-19 2020-11-01 Completed [facility] PFIZER VACCINE 00:00:00 [facility] SARS-COV-2 COVID-19 2020-11-01 Completed [facility] PFIZER VACCINE 00:00:00 [facility] SARS-COV-2 COVID-19 2020-11-01 Completed [facility] PFIZER VACCINE 00:00:00 [facility] SARS-COV-2 COVID-19 2020-11-01 Completed [facility] PFIZER VACCINE 00:00:00 [facility] SARS-COV-2 COVID-19 2020-11-01 Completed [facility] PFIZER VACCINE 00:00:00 [facility] SARS-COV-2 COVID-19 2020-11-01 Completed [facility] PFIZER VACCINE 00:00:00 [facility] SARS-COV-2 COVID-19 2020-11-01 Completed [facility] PFIZER VACCINE 00:00:00 [facility] SARS-COV-2 COVID-19 2020-11-01 Completed [facility] PFIZER VACCINE 00:00:00 [facility] SARS-COV-2 COVID-19 2020-11-01 Completed [facility] PFIZER VACCINE 00:00:00 [facility] SARS-COV-2 COVID-19 2020-11-01 Completed [facility] PFIZER VACCINE 00:00:00 [facility] SARS-COV-2 COVID-19 2020-11-01 Completed [facility] PFIZER VACCINE 00:00:00 [facility] SARS-COV-2 COVID-19 2020-11-01 Completed [facility] PFIZER VACCINE 00:00:00 [facility] SARS-COV-2 COVID-19 2020-11-01 Completed [facility] PFIZER VACCINE 00:00:00 [facility] SARS-COV-2 COVID-19 2020-11-01 Completed [facility] PFIZER VACCINE 00:00:00 [facility] SARS-COV-2 COVID-19 2020-11-01 Completed [facility] PFIZER VACCINE 00:00:00 [facility] SARS-COV-2 COVID-19 2020-11-01 Completed [facility] PFIZER VACCINE 00:00:00 [facility] SARS-COV-2 COVID-19 2020-11-01 Completed [facility] PFIZER VACCINE 00:00:00 [facility] SARS-COV-2 COVID-19 2020-11-01 Completed [facility] PFIZER VACCINE 00:00:00 [facility] SARS-COV-2 COVID-19 2020-11-01 Completed [facility] PFIZER VACCINE 00:00:00 [facility] SARS-COV-2 COVID-19 2020-11-01 Completed [facility] PFIZER VACCINE 00:00:00 [facility] SARS-COV-2 COVID-19 2020-11-01 Completed [facility] PFIZER VACCINE 00:00:00 [facility] SARS-COV-2 COVID-19 2020-11-01 Completed [facility] PFIZER VACCINE 00:00:00 [facility] SARS-COV-2 COVID-19 2020-11-01 Completed [facility] PFIZER VACCINE 00:00:00 [facility] SARS-COV-2 COVID-19 2020-11-01 Completed [facility] PFIZER VACCINE 00:00:00 [facility] SARS-COV-2 COVID-19 2020-11-01 Completed [facility] PFIZER VACCINE 00:00:00 [facility] Influenza High Dose 2020-10-09 Completed [facility] of 00:00:[address] [facility] Influenza High Dose 2020-10-09 Completed [facility] of 00:00:[address] [facility] Influenza High Dose 2020-10-09 Completed [facility] 00:00:00 [facility] Influenza High Dose 2020-10-09 Completed [facility] 00:00:00 [facility] Influenza High Dose 2020-10-09 Completed [facility] 00:00:00 [facility] Influenza High Dose 2020-10-09 Completed [facility] of 00:00:[address] [facility] Influenza High Dose 2020-10-09 Completed [facility] of 00:00:[address] [facility] Influenza High Dose 2020-10-09 Completed [facility] 00:00:00 [facility] Influenza High Dose 2020-10-09 Completed [facility] of 00:00:[address] [facility] Influenza High Dose 2020-10-09 Completed [facility] 00:00:00 [facility] Influenza High Dose 2020-10-09 Completed [facility] 00:00:00 [facility] Influenza High Dose 2020-10-09 Completed [facility] 00:00:00 [facility] Influenza High Dose 2020-10-09 Completed [facility] 00:00:00 [facility] Influenza High Dose 2020-10-09 Completed [facility] 00:00:00 [facility] Influenza High Dose 2020-10-09 Completed [facility] 00:00:00 [facility] Influenza High Dose 2020-10-09 Completed [facility] 00:00:00 [facility] Influenza High Dose 2020-10-09 Completed [facility] 00:00:00 [facility] Influenza High Dose 2020-10-09 Completed [facility] 00:00:00 [facility] Influenza High Dose 2020-10-09 Completed [facility] 00:00:00 [facility] Influenza High Dose 2020-10-09 Completed [...] Dose 2020-10-09 Completed [facility] 00:00:00 [facility] Influenza High Dose 2020-10-09 Completed [facility] 00:00:00 [facility] Influenza High Dose 2020-10-09 Completed [facility] 00:00:00 [facility] Influenza High Dose 2020-10-09 Completed [facility] 00:00:00 [facility] Influenza High Dose 2020-10-09 Completed [facility] 00:00:00 [facility] Influenza High Dose 2020-10-09 Completed [facility] 00:00:00 [facility] Influenza High Dose 2020-10-09 Completed [facility] 00:00:00 [facility] Influenza High Dose 2020-10-09 Completed [...] Dose 2020-10-09 Completed [facility] 00:00:00 [facility] Influenza High Dose 2020-10-09 Completed [facility] 00:00:00 [facility] Influenza High Dose 2020-10-09 Completed [facility] 00:00:00 [facility] Influenza High Dose 2020-10-09 Completed [facility] 00:00:00 [facility] Influenza High Dose 2020-10-09 Completed [facility] 00:00:00 [facility] Influenza High Dose 2020-10-09 Completed [facility] 00:00:00 [facility] Influenza High Dose 2020-10-09 Completed [facility] 00:00:00 [facility] Influenza High Dose 2020-10-09 Completed [...] Dose 2020-10-09 Completed [facility] 00:00:00 [facility] Influenza High Dose 2020-10-09 Completed [facility] 00:00:00 [facility] Influenza High Dose 2020-10-09 Completed [facility] 00:00:00 [facility] Influenza High Dose 2020-10-09 Completed [facility] 00:00:00 [facility] Influenza High Dose 2020-10-09 Completed [facility] 00:00:00 [facility] Influenza High Dose 2020-10-09 Completed [facility] 00:00:00 [facility] Influenza High Dose 2020-10-09 Completed [facility] 00:00:00 [facility] Influenza High Dose 2020-10-09 Completed [facility] of 00:00:[address] [facility] Influenza High Dose 2020-10-09 Completed [facility] of 00:00:[address] [facility] SARS-COV-2 COVID-19 2020-10-02 Completed [facility] PFIZER VACCINE 00:00:00 [facility] SARS-COV-2 COVID-19 2020-10-02 Completed [facility] PFIZER VACCINE 00:00:00 [facility] SARS-COV-2 COVID-19 2020-10-02 Completed [facility] PFIZER VACCINE 00:00:00 [facility] SARS-COV-2 COVID-19 2020-10-02 Completed [facility] PFIZER VACCINE 00:00:00 [facility] SARS-COV-2 COVID-19 2020-10-02 Completed [facility] PFIZER VACCINE 00:00:00 [facility] SARS-COV-2 COVID-19 2020-10-02 Completed [facility] PFIZER VACCINE 00:00:00 [facility] SARS-COV-2 COVID-19 2020-10-02 Completed [facility] PFIZER VACCINE 00:00:00 [facility] SARS-COV-2 COVID-19 2020-10-02 Completed [facility] PFIZER VACCINE 00:00:00 [facility] SARS-COV-2 COVID-19 2020-10-02 Completed [facility] PFIZER VACCINE 00:00:00 [facility] SARS-COV-2 COVID-19 2020-10-02 Completed [facility] PFIZER VACCINE 00:00:00 [facility] SARS-COV-2 COVID-19 2020-10-02 Completed [facility] PFIZER VACCINE 00:00:00 [facility] SARS-COV-2 COVID-19 2020-10-02 Completed [facility] PFIZER VACCINE 00:00:00 [facility] SARS-COV-2 COVID-19 2020-10-02 Completed [facility] PFIZER VACCINE 00:00:00 [facility] SARS-COV-2 COVID-19 2020-10-02 Completed [facility] PFIZER VACCINE 00:00:00 [facility] SARS-COV-2 COVID-19 2020-10-02 Completed [facility] PFIZER VACCINE 00:00:00 [facility] SARS-COV-2 COVID-19 2020-10-02 Completed [facility] PFIZER VACCINE 00:00:00 [facility] SARS-COV-2 COVID-19 2020-10-02 Completed [facility] PFIZER VACCINE 00:00:00 [facility] SARS-COV-2 COVID-19 2020-10-02 Completed [facility] PFIZER VACCINE 00:00:00 [facility] SARS-COV-2 COVID-19 2020-10-02 Completed [facility] PFIZER VACCINE 00:00:00 [facility] SARS-COV-2 COVID-19 2020-10-02 Completed [facility] PFIZER VACCINE 00:00:00 [facility] SARS-COV-2 COVID-19 2020-10-02 Completed [facility] PFIZER VACCINE 00:00:00 [facility] SARS-COV-2 COVID-19 2020-10-02 Completed [facility] PFIZER VACCINE 00:00:00 [facility] SARS-COV-2 COVID-19 2020-10-02 Completed [facility] PFIZER VACCINE 00:00:00 [facility] SARS-COV-2 COVID-19 2020-10-02 Completed [facility] PFIZER VACCINE 00:00:00 [facility] SARS-COV-2 COVID-19 2020-10-02 Completed [facility] PFIZER VACCINE 00:00:00 [facility] SARS-COV-2 COVID-19 2020-10-02 Completed [facility] PFIZER VACCINE 00:00:00 [facility] SARS-COV-2 COVID-19 2020-10-02 Completed [facility] PFIZER VACCINE 00:00:00 [facility] SARS-COV-2 COVID-19 2020-10-02 Completed [facility] PFIZER VACCINE 00:00:00 [facility] SARS-COV-2 COVID-19 2020-10-02 Completed [facility] PFIZER VACCINE 00:00:00 [facility] SARS-COV-2 COVID-19 2020-10-02 Completed [facility] PFIZER VACCINE 00:00:00 [facility] SARS-COV-2 COVID-19 2020-10-02 Completed [facility] PFIZER VACCINE 00:00:00 [facility] SARS-COV-2 COVID-19 2020-10-02 Completed [facility] PFIZER VACCINE 00:00:00 [facility] SARS-COV-2 COVID-19 2020-10-02 Completed [facility] PFIZER VACCINE 00:00:00 [facility] SARS-COV-2 COVID-19 2020-10-02 Completed [facility] PFIZER VACCINE 00:00:00 [facility] SARS-COV-2 COVID-19 2020-10-02 Completed [facility] PFIZER VACCINE 00:00:00 [facility] SARS-COV-2 COVID-19 2020-10-02 Completed [facility] PFIZER VACCINE 00:00:00 [facility] SARS-COV-2 COVID-19 2020-10-02 Completed [facility] PFIZER VACCINE 00:00:00 [facility] SARS-COV-2 COVID-19 2020-10-02 Completed [facility] PFIZER VACCINE 00:00:00 [facility] SARS-COV-2 COVID-19 2020-10-02 Completed [facility] PFIZER VACCINE 00:00:00 [facility] SARS-COV-2 COVID-19 2020-10-02 Completed [facility] PFIZER VACCINE 00:00:00 [facility] SARS-COV-2 COVID-19 2020-10-02 Completed [facility] PFIZER VACCINE 00:00:00 [facility] SARS-COV-2 COVID-19 2020-10-02 Completed [facility] PFIZER VACCINE 00:00:00 [facility] SARS-COV-2 COVID-19 2020-10-02 Completed [facility] PFIZER VACCINE 00:00:00 [facility] SARS-COV-2 COVID-19 2020-10-02 Completed [facility] PFIZER VACCINE 00:00:00 [facility] SARS-COV-2 COVID-19 2020-10-02 Completed [facility] PFIZER VACCINE 00:00:00 [facility] SARS-COV-2 COVID-19 2020-10-02 Completed [facility] PFIZER VACCINE 00:00:00 [facility] SARS-COV-2 COVID-19 2020-10-02 Completed [facility] of PFIZER VACCINE 00:00:00 [facility] SARS-COV-2 COVID-19 2020-10-02 Completed [facility] of PFIZER VACCINE 00:00:00 [facility] SARS-COV-2 COVID-19 2020-10-02 Completed [facility] PFIZER VACCINE 00:00:00 [facility] SARS-COV-2 COVID-19 2020-10-02 Completed [facility] PFIZER VACCINE 00:00:00 [facility] SARS-COV-2 COVID-19 2020-10-02 Completed [facility] PFIZER VACCINE 00:00:00 [facility] SARS-COV-2 COVID-19 2020-10-02 Completed [facility] PFIZER VACCINE 00:00:00 [facility] SARS-COV-2 COVID-19 2020-10-02 Completed [facility] PFIZER VACCINE 00:00:00 [facility] SARS-COV-2 COVID-19 2020-10-02 Completed [facility] of PFIZER VACCINE 00:00:00 [facility] SARS-COV-2 COVID-19 2020-10-02 Completed [facility] PFIZER VACCINE 00:00:00 [facility] SARS-COV-2 COVID-19 2020-10-02 Completed [facility] of PFIZER VACCINE 00:00:00 [facility] SARS-COV-2 COVID-19 2020-10-02 Completed [facility] of PFIZER VACCINE 00:00:00 [facility] SARS-COV-2 COVID-19 2020-10-02 Completed [facility] of PFIZER VACCINE 00:00:00 [facility] SARS-COV-2 COVID-19 2020-10-02 Completed [facility] of PFIZER VACCINE 00:00:00 [facility] SARS-COV-2 COVID-19 2020-10-02 Completed [facility] of PFIZER VACCINE 00:00:00 [facility] SARS-COV-2 COVID-19 2020-10-02 Completed [facility] PFIZER VACCINE 00:00:00 [facility] SARS-COV-2 COVID-19 2020-10-02 Completed [facility] of PFIZER VACCINE 00:00:00 [facility] SARS-COV-2 COVID-19 2020-10-02 Completed [facility] of PFIZER VACCINE 00:00:00 [facility] SARS-COV-2 COVID-19 2020-10-02 Completed [facility] of PFIZER VACCINE 00:00:00 [facility] SARS-COV-2 COVID-19 2020-10-02 Completed [facility] of PFIZER VACCINE 00:00:00 [facility] SARS-COV-2 COVID-19 2020-10-02 Completed [facility] of PFIZER VACCINE 00:00:00 [facility] SARS-COV-2 COVID-19 2020-10-02 Completed [facility] PFIZER VACCINE 00:00:00 [facility] SARS-COV-2 COVID-19 2020-10-02 Completed [facility] of PFIZER VACCINE 00:00:00 [facility] SARS-COV-2 COVID-19 2020-10-02 Completed [facility] of PFIZER VACCINE 00:00:00 [facility] SARS-COV-2 COVID-19 2020-10-02 Completed [facility] of PFIZER VACCINE 00:00:00 [facility] SARS-COV-2 COVID-19 2020-10-02 Completed [facility] of PFIZER VACCINE 00:00:00 [facility] SARS-COV-2 COVID-19 2020-10-02 Completed [facility] of PFIZER VACCINE 00:00:00 [facility] SARS-COV-2 COVID-19 2020-10-02 Completed [facility] of PFIZER VACCINE 00:00:00 [facility] SARS-COV-2 COVID-19 2020-10-02 Completed [facility] of PFIZER VACCINE 00:00:00 [facility] SARS-COV-2 COVID-19 2020-10-02 Completed [facility] of PFIZER VACCINE 00:00:00 [facility] SARS-COV-2 COVID-19 2020-10-02 Completed [facility] of PFIZER VACCINE 00:00:00 [facility] SARS-COV-2 COVID-19 2020-10-02 Completed [facility] of PFIZER VACCINE 00:00:00 [facility] SARS-COV-2 COVID-19 2020-10-02 Completed [facility] of PFIZER VACCINE 00:00:00 [facility] SARS-COV-2 COVID-19 2020-10-02 Completed [facility] of PFIZER VACCINE 00:00:00 [facility] SARS-COV-2 COVID-19 2020-10-02 Completed [facility] of PFIZER VACCINE 00:00:00 [facility] SARS-COV-2 COVID-19 2020-10-02 Completed [facility] of PFIZER VACCINE 00:00:00 [facility] SARS-COV-2 COVID-19 2020-10-02 Completed [facility] of PFIZER VACCINE 00:00:00 [facility] SARS-COV-2 COVID-19 2020-10-02 Completed [facility] of PFIZER VACCINE 00:00:00 [facility] SARS-COV-2 COVID-19 2020-10-02 Completed [facility] of PFIZER VACCINE 00:00:00 [facility] SARS-COV-2 COVID-19 2020-10-02 Completed [facility] of PFIZER VACCINE 00:00:00 [facility] SARS-COV-2 COVID-19 2020-10-02 Completed [facility] of PFIZER VACCINE 00:00:00 [facility] SARS-COV-2 COVID-19 2020-10-02 Completed [facility] of PFIZER VACCINE 00:00:00 [facility] SARS-COV-2 COVID-19 2020-10-02 Completed [facility] of PFIZER VACCINE 00:00:00 [facility] SARS-COV-2 COVID-19 2020-10-02 Completed [facility] of PFIZER VACCINE 00:00:00 [facility] SARS-COV-2 COVID-19 2020-10-02 Completed [facility] of PFIZER VACCINE 00:00:00 [facility] SARS-COV-2 COVID-19 2020-10-02 Completed [facility] of PFIZER VACCINE 00:00:00 [facility] SARS-COV-2 COVID-19 2020-10-02 Completed [facility] of PFIZER VACCINE 00:00:00 [facility] SARS-COV-2 COVID-19 2020-10-02 Completed [facility] of PFIZER VACCINE 00:00:00 [facility] SARS-COV-2 COVID-19 2020-10-02 Completed [facility] of PFIZER VACCINE 00:00:00 [facility] Vital Signs Vital Name Observation Time Observation Value Comments Source Systolic blood 2022-08-17 109 mm[Hg] [facility] pressure 20:24:[address] [facility] Diastolic blood 2022-08-17 68 mm[Hg] [facility] pressure 20:24:[address] [facility] Heart rate 2022-08-17 60 /min [facility] 20:24:[address] [facility] Body temperature 2022-08-17 35.94 Renu [facility] 20:24:[address] [facility] Respiratory rate 2022-08-17 18 /min [facility] 20:24:[address] [facility] Oxygen saturation 2022-08-17 99 /min [facility] in Arterial blood 20:24:00 [facility] Pulse oximetry [place] Body weight 2022-08-17 74.889 kg actual wt on [facility] 08:42:00 the regular [facility] scale Branch BMI 2022-08-17 22.39 kg/m2 [place] of 08:42:[address] [facility] Body height 2022-08-16 182.9 cm [facility] 16:31:[address] [facility] Systolic blood 2022-07-14 143 mm[Hg] [facility] pressure 21:05:[address] [facility] Diastolic blood 2022-07-14 66 mm[Hg] [facility] pressure 21:05:[address] [facility] Heart rate 2022-07-14 59 /min University of 21:05:[address] [facility] Body temperature 2022-07-14 36.89 Renu University of 21:05:[address] [facility] Respiratory rate 2022-07-14 20 /min University of 21:05:[address] [facility] Oxygen saturation 2022-07-14 97 /min University of in Arterial blood 21:05:00 [place] [facility] Pulse oximetry Branch Body height 2022-07-12 182.9 cm University of 01:00:[address] [facility] Body weight 2022-07-12 75.66 kg University of 01:00:[address] [facility] BMI 2022-07-12 22.62 kg/m2 University of 01:00:[address] [facility] Systolic blood 2022-07-11 138 mm[Hg] University of pressure 16:00:[address] [facility] Diastolic blood 2022-07-11 68 mm[Hg] University o f pressure 16:00:[address] [facility] Heart rate 2022-07-11 65 /min University of 16:00:[address] [facility] Respiratory rate 2022-07-11 15 /min University of 16:00:[address] [facility] Oxygen saturation 2022-07-11 98 /min University of in Arterial blood 16:00:00 [facility] ralph by Pulse oximetry Branch Body temperature 2022-07-11 36.67 Renu University of 15:35:[address] [facility] Body weight 2022-07-11 77.111 kg University of 15:35:[address] [facility] BMI 2022-07-11 23.06 kg/m2 University of 15:35:[address] [facility] Systolic blood 2022-07-10 122 mm[Hg] University of pressure 13:12:[address] [facility] Diastolic blood 2022-07-10 72 mm[Hg] University o f pressure 13:12:[address] [facility] Heart rate 2022-07-10 70 /min University of 13:12:[address] [facility] Body height 2022-07-10 182.9 cm University of 13:12:[address] [facility] Body weight 2022-07-10 77.111 kg University of 13:12:[address] [facility] BMI 2022-07-10 23.06 kg/m2 University of 13:12:[address] [facility] Oxygen saturation 2022-07-10 96 /min University of in Arterial blood 13:12:00 [place] [facility] Pulse oxim[facility] Systolic blood 2022-06-25 136 mm[Hg] University of pressure 19:18:[address] [facility] Diastolic blood 2022-06-25 77 mm[Hg] University o f pressure 19:18:[address] [facility] Heart rate 2022-06-25 72 /min University of 19:18:[address] [facility] Body height 2022-06-25 182.9 cm University of 19:18:[address] [facility] Body weight 2022-06-25 78.472 kg University of 19:18:[address] [facility] BMI 2022-06-25 23.46 kg/m2 University of 19:18:[address] [facility] Oxygen saturation 2022-06-25 99 /min University of in Arterial blood 19:18:00 [facility] by Pulse oximetry Branch Systolic blood 2022-05-02 121 mm[Hg] University of pressure 16:41:[address] [facility] Diastolic blood 2022-05-02 68 mm[Hg] University o f pressure 16:41:[address] [facility] Heart rate 2022-05-02 60 /min University of 16:41:[address] [facility] Body temperature 2022-05-02 36.06 Renu University of 16:41:[address] [facility] Respiratory rate 2022-05-02 18 /min University of 16:41:[address] [facility] Oxygen saturation 2022-05-02 98 /min University in Arterial blood 16:41:00 [facility] by Pulse oximetry Branch Body weight 2022-05-02 78.217 kg per scale University of 09:45:[address] [facility] BMI 2022-05-02 23.39 kg/m2 University of 09:45:[address] [facility] Body height 2022-05-01 182.9 cm University of 23:10:[address] [facility] Body weight 2022-04-27 77.4 kg University of 20:16:[address] [facility] BMI 2022-04-27 23.39 kg/m2 University of 20:16:[address] [facility] Systolic blood 2022-03-27 126 mm[Hg] University of pressure 20:27:[address] [facility] Diastolic blood 2022-03-27 57 mm[Hg] University o f pressure 20:27:[address] [facility] Heart rate 2022-03-27 70 /min University of 20:27:[address] [facility] Body temperature 2022-03-27 36.28 Renu University of 20:27:[address] [facility] Body height 2022-03-27 182.9 cm University of 20:27:[address] [facility] Body weight 2022-03-27 77.111 kg University of 20:27:[address] [facility] BMI 2022-03-27 23.06 kg/m2 University of 20:27:[address] [facility] Oxygen saturation 2022-03-27 99 /min University of in Arterial blood 20:27:00 [place] [facility] Pulse oxim[facility] Systolic blood 2022-03-12 105 mm[Hg] University of pressure 18:04:[address] [facility] Diastolic blood 2022-03-12 55 mm[Hg] University o f pressure 18:04:[address] [facility] Heart rate 2022-03-12 57 /min University of 18:04:[address] [facility] Body temperature 2022-03-12 36.78 Renu University of 18:04:[address] [facility] Body height 2022-03-12 182.9 cm University of 18:04:[address] [facility] Body weight 2022-03-12 76.204 kg University of 18:04:[address] [facility] BMI 2022-03-12 22.78 kg/m2 University of 18:04:[address] [facility] Oxygen saturation 2022-03-12 98 /min University of in Arterial blood 18:04:00 [place] [facility] Pulse oxim[facility] Systolic blood 2022-03-02 120 mm[Hg] University of pressure 15:26:[address] [facility] Diastolic blood 2022-03-02 56 mm[Hg] University o f pressure 15:26:[address] [facility] Heart rate 2022-03-02 56 /min University of 15:26:[address] [facility] Respiratory rate 2022-03-02 20 /min University of 15:26:[address] [facility] Body height 2022-03-02 177.8 cm University of 15:26:[address] [facility] Body weight 2022-03-02 76.204 kg University of 15:26:[address] [facility] BMI 2022-03-02 24.11 kg/m2 University of 15:26:[address] [facility] Oxygen saturation 2022-03-02 100 /min University of in Arterial blood 15:26:00 [place] [facility] P[facility]xim[facility] Systolic blood 2022-02-06 137 mm[Hg] University of pressure 21:30:[address] [facility] Diastolic blood 2022-02-06 79 mm[Hg] University o f pressure 21:30:[address] [facility] Heart rate 2022-02-06 70 /min University of 21:30:[address] [facility] Body height 2022-02-06 182.9 cm University of 21:30:[address] [facility] Body weight 2022-02-06 70.308 kg University of 21:30:[address] [facility] BMI 2022-02-06 21.02 kg/m2 University of 21:30:[address] [facility] Oxygen saturation 2022-02-06 99 /min University of in Arterial blood 21:30:00 [place] [facility] Pulse oxim[facility] Systolic blood 2021-11-03 110 mm[Hg] University of pressure 20:53:[address] [facility] Diastolic blood 2021-11-03 68 mm[Hg] University o f pressure 20:53:[address] [facility] Heart rate 2021-11-03 68 /min University of 20:53:[address] [facility] Body temperature 2021-11-03 36.56 Renu University of 20:53:[address] [facility] Body height 2021-11-03 182.9 cm University of 20:53:[address] [facility] Body weight 2021-11-03 70.308 kg University of 20:53:[address] [facility] BMI 2021-11-03 21.02 kg/m2 University of 20:53:[address] [facility] Oxygen saturation 2021-11-03 99 /min University of in Arterial blood 20:53:00 [facility] ralph by Pulse oximetry Branch Systolic blood 2021-10-27 120 mm[Hg] University of pressure 21:12:[address] [facility] Diastolic blood 2021-10-27 70 mm[Hg] University o f pressure 21:12:[address] [facility] Heart rate 2021-10-27 66 /min University of 21:12:[address] [facility] Body height 2021-10-27 182.9 cm University of 20:29:[address] [facility] Body weight 2021-10-27 70.308 kg University of 20:29:[address] [facility] BMI 2021-10-27 21.02 kg/m2 University of 20:29:[address] [facility] Systolic blood 2021-10-27 108 mm[Hg] University of pressure 14:20:[address] [facility] Diastolic blood 2021-10-27 92 mm[Hg] University o f pressure 14:20:[address] [facility] Heart rate 2021-10-27 50 /min University of 14:20:[address] [facility] Body temperature 2021-10-27 36.11 Renu University of 14:20:[address] [facility] Respiratory rate 2021-10-27 18 /min University of 14:20:[address] [facility] Body height 2021-10-27 182.9 cm University of 14:20:[address] [facility] Body weight 2021-10-27 70.308 kg University of 14:20:[address] [facility] BMI 2021-10-27 21.02 kg/m2 University of 14:20:[address] [facility] Oxygen saturation 2021-10-27 100 /min University of in Arterial blood 14:20:00 [place] [facility] Pulse oximetry [facility] Systolic blood 2021-10-18 133 mm[Hg] University of pressure 16:05:[address] [facility] Diastolic blood 2021-10-18 65 mm[Hg] University o f pressure 16:05:[address] [facility] Heart rate 2021-10-18 70 /min University of 16:05:[address] [facility] Body temperature 2021-10-18 36.72 Renu University of 16:05:[address] [facility] Respiratory rate 2021-10-18 16 /min University of 16:05:[address] [facility] Body height 2021-10-18 182.9 cm University of 16:05:[address] [facility] Body weight 2021-10-18 72.576 kg University of 16:05:[address] [facility] BMI 2021-10-18 21.70 kg/m2 University of 16:05:[address] [facility] Oxygen saturation 2021-10-18 98 /min University of in Arterial blood 16:05:00 [place] [facility] Pulse oximetry [facility] Systolic blood 2021-08-27 101 mm[Hg] University of pressure 18:10:00 [facility] Branch Diastolic blood 2021-08-27 63 mm[Hg] University o f pressure 18:10:[address] [facility] Heart rate 2021-08-27 61 /min University of 18:10:[address] [facility] Body temperature 2021-08-27 36.67 Renu University of 18:10:00 [facility] Branch Respiratory rate 2021-08-27 16 /min University 18:10:[address] [facility] Body height 2021-08-27 182.9 cm University 18:10:[address] [facility] Body weight 2021-08-27 70.308 kg University 18:10:[address] [facility] BMI 2021-08-27 21.02 kg/m2 University of 18:10:[address] [facility] Oxygen saturation 2021-08-27 100 /min [facility] in Arterial blood 18:10:00 [facility] by Pulse oximetry Branch Systolic blood 2021-08-14 117 mm[Hg] University of pressure 17:54:[address] [facility] Diastolic blood 2021-08-14 74 mm[Hg] University o f pressure 17:54:[address] [facility] Heart rate 2021-08-14 71 /min [facility] 17:54:[address] [facility] Body temperature 2021-08-14 36.39 Renu [facility] 17:54:[address] [facility] Body height 2021-08-14 182.9 cm University 17:54:[address] [facility] Body weight 2021-08-14 71.079 kg University 17:54:[address] [facility] BMI 2021-08-14 21.25 kg/m2 University 17:54:[address] [facility] Oxygen saturation 2021-08-14 99 /min [facility] in Arterial blood 17:54:00 [facility] by Pulse oximetry Branch Heart Rate 2022-07-24 [facility] Benigno n 17:04:49 Systolic (mm Hg) 2022-07-[address] [facility] rmann 17:04:40 Diastolic (mm Hg) 2022-07-24 [facility] ermann 17:04:40 Heart Rate 2022-07-24 [facility] Benigno n 17:04:40 Temperature Oral 2022-07-24 97.6 F [facility] rmann (F) 17:04:15 Temperature Oral 2022-07-24 97.9 F [facility] rmann (F) 09:00:00 [facility] Systolic (mm Hg) 2022-07-[address] [facility] rmann 09:00:00 Diastolic (mm Hg) 2022-07-24 [facility] ermann 09:00:00 Systolic (mm Hg) 2022-07-[address] [facility] rmann 08:16:00 Diastolic (mm Hg) 2022-07-24 [facility] 08:16:00 Temperature Oral 2022-07-24 98.5 F [facility] rmann (F) 08:16:00 Temperature Oral 2022-07-23 98.1 F [facility] rmann (F) 04:32:24 Respitory Rate 2022-07-22 [facility]ancy 21:19:00 Respitory Rate 2022-07-22 [facility] francy 16:24:00 Respitory Rate 2022-07-22 [facility] francy 12:59:00 Heart Rate 2022-07-20 [facility] 10:20:11 Temperature Oral 2022-07-20 98 F [facility] rmann (F) 10:20:04 Systolic (mm Hg) 2022-07-[address] [facility] rmann 10:19:11 Diastolic (mm Hg) 2022-07-20 [facility] ermann 10:19:11 Heart Rate 2022-07-20 [facility] 10:19:11 Heart Rate 2022-07-20 [facility] 04:25:10 Temperature Oral 2022-07-20 98.3 F [facility] rmann (F) 04:25:00 Systolic (mm Hg) 2022-07-20 [facility] He rmann 04:22:19 Diastolic (mm Hg) 2022-07-20 [facility] ermann 04:22:19 Systolic (mm Hg) 2022-07-20 [facility] He rmann 00:57:06 Diastolic (mm Hg) 2022-07-20 [facility] ermann 00:57:06 Temperature Oral 2022-07-19 98.4 F [facility] rmann (F) 09:00:00 Respitory Rate 2022-07-19 [facility] 09:00:00 Respitory Rate 2022-07-19 [facility] 05:00:00 Respitory Rate 2022-07-19 [facility] 01:00:00 Height 2022-07-16 182.88 cm [facility] 13:00:00 Weight 2022-07-16 [facility] 13:00:00 BMI Calculated 2022-07-16 [facility] 13:00:00 Height 2022-07-16 182.88 cm [facility] 02:20:00 Weight 2022-07-16 [facility] 02:20:00 BMI Calculated 2022-07-16 [facility] 02:20:00 Procedures Procedure Date / Time Performing Clinician Source Performed MAGNESIUM 2022-08-17 08:51:00 Fam Calabrese [facility] TROPONIN I 2022-08-17 08:51:[address] [facility] BASIC METABOLIC PANEL (NA, 2022-08-17 08:51:[address] [facility] K, CL, CO2, GLUCOSE, BUN, Medica l Branch CREATININE, [place]) CBC WITH DIFF 2022-08-17 08:51:00 Fam Calabrese [facility] MAGNESIUM 2022-08-16 18:15:[address] [facility] TROPONIN I 2022-08-16 18:15:[address] [facility] THYROID STIMULATING HORMONE 2022-08-16 18:15:[address] [facility] HEPATIC FUNCTION PANEL 2022-08-16 18:15:00 Gilberto [facility] ([id number]) (ALB,T.PRO,BILI [facility] T,BU/BC,ALT,AST,ALK PHOS) LIPID PANEL ([id number])(TOTAL 2022-08-16 18:15:00 Aaron Macias [facility] CHOLESTEROL, TRIGLYCERIDES, [facility] HDL) CBC WITH DIFF 2022-08-16 18:15:[address] [facility] GLYCOSYLATED HEMOGLOBIN 2022-08-16 18:15:00 Aaron Macias [facility] (A1C) [facility] PROTHROMBIN TIME / INR 2022-08-16 18:15:00 Gilberto [facility] ACTIVATED PARTIAL THRMPLAS 2022-08-16 18:15:00 Vannessa Maciasshua [facility] SAPNA [facility] AMMONIA, PLASMA 2022-07-14 12:25:00 Shira Vyas [facility] CBC WITH DIFF 2022-07-14 12:24:00 Dipesh Harvey [facility] PHOSPHORUS 2022-07-14 10:00:00 Wes [facility] MAGNESIUM 2022-07-14 10:00:00 Wes [facility] C-REACTIVE PROTEIN 2022-07-14 10:00:00 Dipesh Harvey [facility] BASIC METABOLIC PANEL (NA, 2022-07-14 10:00:00 Dipesh Harvey [facility] K, CL, CO2, GLUCOSE, BUN, Medica l Branch CREATININE, CA) SYPHILIS IGG/IGM 2022-07-14 09:58:00 Vyas, [facility] MAGNESIUM 2022-07-13 09:15:00 [place] Main [facility] VITAMIN B12, LEVEL 2022-07-13 09:15:00 Wes Dipesh [facility] FOLATE 2022-07-13 09:15:00 Wes [facility] HEPATIC FUNCTION PANEL 2022-07-13 09:15:00 Dipesh Harvey [facility] ([id number]) (ALB,T.PRO,[facility] T,BU/BC,ALT,AST,ALK PHOS) BASIC METABOLIC PANEL (NA, 2022-07-13 09:15:00 [place] Main [facility] K, CL, CO2, GLUCOSE, BUN, Medica l Branch CREATININE, CA) SEDIMENTATION RATE 2022-07-13 09:15:00 Wes Dipesh [facility] CBC WITH DIFF 2022-07-13 09:15:00 [place] [facility] HOMOCYSTEINE 2022-07-13 09:15:00 Lilliam [facility] TROPONIN I 2022-07-12 23:04:00 Anastacio Michael [facility] ACTIVATED PARTIAL THRMPLAS 2022-07-12 23:04:00 Shira Vyas [facility] HB ECG ROUTINE & RHYTHM 2022-07-12 17:47:15 [place] Main [facility] TRANSTHORACIC ECHO (TTE) 2022-07-12 17:29:00 Shira Vyas [facility] CT HEAD WO CONTRAST 2022-07-12 16:36:28 [place] [facility] URINE DRUG (IMMUNOASSAY) - 2022-07-12 15:33:00 [place] Main [facility] COMPREHENSIVE DRUG SCREEN Medica l Branch TROPONIN I 2022-07-12 15:31:00 [place] Main [facility] POCT GLUCOSE (AUTOMATED) 2022-07-12 13:45:00 Logan Fernandez [facility] MAGNESIUM 2022-07-12 09:02:00 Vyas, [facility] TROPONIN I 2022-07-12 09:02:00 Vyas, [facility] BASIC METABOLIC PANEL (NA, 2022-07-12 09:02:00 Vyas, [facility] K, CL, CO2, GLUCOSE, BUN, [facility] CREATININE, [place]) CBC WITH DIFF 2022-07-12 09:02:00 Vyas, [facility] ACTIVATED PARTIAL THRMPLAS 2022-07-12 09:02:00 Vyas, [facility] TROPONIN I 2022-07-12 02:38:00 Vyas, [facility] PROTHROMBIN TIME / INR 2022-07-12 02:38:00 Vyas, [facility] ACTIVATED PARTIAL THRMPLAS 2022-07-12 02:38:00 Vyas, [facility] TROPONIN I 2022-07-11 22:52:00 Dino Estrada [facility] THYROID STIMULATING HORMONE 2022-07-11 22:52:00 Vyas, [facility] LIPASE 2022-07-11 19:34:00 Dino Estrada [facility] TROPONIN I 2022-07-11 19:34:00 Dino Estrada [facility] COMP. METABOLIC PANEL 2022-07-11 19:34:00 Dino Estrada [facility] ([id number]) [facility] CBC WITH DIFF 2022-07-11 19:34:00 Dino Estrada [facility] GLYCOSYLATED HEMOGLOBIN 2022-07-11 19:34:00 Lilliam Shira [facility] (A1C) [facility] EKG-12 LEAD 2022-07-11 18:42:59 Dino Estrada [facility] CONSENT/REFUSAL FOR 2022-07-11 18:31:35 Doctor Unassigned, [facility] DIAGNOSIS AND TREATMENT [facility] XR CHEST 2 VW 2022-07-11 16:53:39 Dino Estrada [facility] CONSENT/REFUSAL FOR 2022-07-11 15:30:17 Doctor Unassigned, [facility] DIAGNOSIS AND TREATMENT [facility] POCT URINALYSIS 2022-07-10 00:00:00 Sarina [facility] f [facility] ASSIGNMENT OF BENEFITS 2022-06-04 17:03:28 Doctor Unassigned, [facility] POCT GLUCOSE (AUTOMATED) 2022-05-02 13:23:00 Michele Meraz [facility] POCT GLUCOSE (AUTOMATED) 2022-05-02 13:23:00 Michele Meraz [facility] MAGNESIUM 2022-05-02 09:46:00 Christiano Kathleen [facility] BASIC METABOLIC PANEL (NA, 2022-05-02 09:46:00 Otilia Alvarado [facility] K, CL, CO2, GLUCOSE, BUN, Medica l Branch CREATININE, [place]) CBC WITH DIFF 2022-05-02 09:46:00 Kathleen Alvarado [facility] MAGNESIUM 2022-05-02 09:46:00 Carlos Alvaradoabella [facility] BASIC METABOLIC PANEL (NA, 2022-05-02 09:46:00 Otilia Alvarado [facility] K, CL, CO2, GLUCOSE, BUN, Medica l Branch CREATININE, [place]) CBC WITH DIFF 2022-05-02 09:46:00 Kathleen Alvarado [facility] XR CHEST 1 VW 2022-05-01 22:10:00 Kathleen Alvarado [facility] ELECTROPHYSIOLOGY PROCEDURE 2022-05-01 17:50:27 Michele Meraz [facility] ELECTROPHYSIOLOGY PROCEDURE 2022-05-01 17:50:[facility] 2022-05-01 17:50:27 [facility]ED[facility] 2022-05-01 17:50:27 Kt [facility] INSURANCE CORRESPONDENCE 2022-03-04 06:01:00 Doctor Unassigned, [facility] HB ECG ROUTINE & RHYTHM 2022-03-02 15:30:55 Destiny Sandy [facility] EXTERNAL PROVIDER RECORDS 2022-01-14 06:01:00 Doctor Unassigned, [facility] Name [facility] EXTERNAL PROVIDER - ADC 2021-12-29 06:01:00 Doctor Unassigned, [facility] CARDIOLOGY [facility] REFERRAL- REQUEST/RESPONSE 2021-11-17 05:01:00 Doctor Unassigned , [facility] Name [facility] CBC WITH DIFF 2021-11-03 21:42:00 [facility] [place] [facility] Plan of Care Planned Activity Planned Date Details Comments Source Encounters Start End Encounter Admission Attending Care Care Encounter Source Date/Time Date/Time Type Type Clinicians Facility Department ID 2022-07-[address] [facility] [id number] [place] 00:58:24 [id number] [facility] 2022-03-[address] [facility] [id number] [place] 07:57:43 [id number] [facility] 2022-09-25 2022-09-25 Outpatient R SHIRA BRANCH [facility] [id number] [facility] 11:20:00 11:20:00 SHIRA BRANCH prudencio [facility] 2022-08-16 2022-08-17 Outpatient X NONI IVEY [facility] [id number] [facility] 11:24:00 19:50:00 NONI IVEY prudencio [facility] 2022-08-16 2022-08-17 [facility] Varinder Pulido [id number] Univers 11:24:00 19:50:00 Encounter Noni Ivey 350.1.13 .10 ity of [facility] 4.2.7.2.686 Anthony as [id number] [facility] [address] 2022-08-13 2022-08-13 Telephone [facility] 1.2.976.161 [id number] Univers 00:00:00 00:00:00 Michele [place] 350.1.13.10 i ty of [place] [id number] [address] 2022-08-10 2022-08-10 Telephone [facility] 12.050.857 [id number] Univers 00:00:00 00:00:00 [facility]ai [facility] 350.1.13.10 ity of [place] [id number] [address] 2022-08-05 2022-08-07 Outpatient U SHAUN, [facility] [address] [facility] 17:30:00 15:29:00 CRISTAL 2022-08-07 2022-08-07 [facility] 1.2.598.095 [id number] Univers 00:00:00 00:00:00 [facility] 350.1.13.10 ity of [place] 4.2.7.2.686 Anthony as GUIDO?BLEA [id number] [address] OFFICE [facility] 2022-08-07 2022-08-07 Telephone [facility] 1.2.137.256 [id number] [id number] Univers 00:00:00 00:00:00 Destiny [place] 350.1.13.10 ity of [place] [id number] [address] 2022-08-05 2022-08-05 Telephone [facility] 1.2.579.499 [id number] [id number] Univers 00:00:00 00:00:00 Michele [place] 350.1.13.10 i ty of [place].2.[place] ALBAROIO [id number] Nh dical [facility] 059 [facility] 2022-07-17 2022-07-24 Inpatient [facility] [id number] Memoria 16:33:00 18:55:00 Matthews 58 l [facility] 2022-07-17 2022-07-24 Inpatient U DHAJOSE MIGUELARAN [facility] [address] [facility] 11:33:00 13:55:00 , ADY 2022-07-16 2022-07-16 Outpatient R KT [facility] [id number] Univers 08:40:00 08:40:00 MICHELE ity of [facility] 2022-07-16 2022-07-16 Telephone [facility] 1.2.779.691 [id number] Univers 00:00:00 00:00:00 [facility] 350.1.13.10 ity of [place] 4.2.7.2.686 Anthony as GUIDO?BLEA [id number] [facility] [address] MEDICAL OFFICE [facility] 2022-07-15 2022-07-15 Transition BrittZULAY deanMode 1.2.840.114 10 [id number] Univers 00:00:00 00:00:00 of Care Sarai LINARES 350.1.13.10 i ty of [place]2.7.2.686 [place] [id number] [facility] [address] 2022-07-11 2022-07-14 Hospital Dino Estrada 1.2.8 40.114 [id number] Univers 13:38:00 17:03:00 Encounter Logan Fernandez 350.1. 13.10 ity of [facility] 4.2.7.2.686 Atnhony as [id number] [facility] [address] 2022-07-14 2022-07-14 Telephone [facility] 1.2.814.563 [id number] [id number] Univers 00:00:00 00:00:00 [facility] 350.1.13.10 ity of [place] 4.2.7.2.686 Anthony as GUIDO?BLEA [id number] [address] MEDICAL OFFICE [facility] 2022-07-14 2022-07-14 Telephone [facility] 1.2.280.699 [id number] Univers 00:00:00 00:00:00 [facility] 350.1.13.10 i ty of [place].7.2.[place] [id number] [facility] 059 [facility] 2022-07-13 2022-07-13 Telephone [facility] 1.2.082.281 [id number] [id number] Univers 00:00:00 00:00:00 [facility] 350.1.13.10 ity of [place] 4.2.7.2.686 Anthony as GUIDO?BLEA [id number] [address] 2022-07-11 2022-07-11 Emergency X MORRICAL, [facility] ERT [id number] Univers 10:39:00 13:14:00 [facility] 2022-07-11 2022-07-11 Emergency Morrical, TRAUMA 1.2.840.114 10 [id number] Univers 10:39:00 13:14:00 [facility] 350.1.13.10 [place] [id number] [address] 2022-07-11 2022-07-11 Emergency X MORRICAL, [facility] ERT [id number] Univers 10:39:00 13:14:00 DINO [facility] 2022-07-10 2022-07-10 [employer] Lab, Drew - Cornelius [facility] 1.2.840.1 14 [id number] Univers 09:30:00 09:45:00 Visit Sarina [facility] 350.1.13.10 ity of [place] 4.2.7.2.686 Anthony as GUIDO?BLEA [id number] [facility] [address] [facility] OFFICE [facility] 2022-07-10 2022-07-10 Outpatient R SARINA SHIRA [facility] [id number] Univers 08:20:00 09:12:03 SARINA [facility] 2022-07-10 2022-07-10 Office [facility] 1.2.840.114 [id number] Univers 08:20:00 09:12:03 Visit [facility] 350.1.13.10 ity of [place] 4.2.7.2.686 Anthony as GUIDO?BLEA [id number] [address] OFFICE [facility] 2022-07-09 2022-07-09 Refill [facility] 1.2.840.114 [id number] Univers 00:00:00 00:00:00 [place] [facility]ALTH 350.1.13.10 ity of [place] 4.2.7.2.686 Anthony as GUIDO?BLEA [id number] [address] OFFICE [facility] 2022-07-04 2022-07-04 Telephone [facility] 1.2.938.651 [id number] Univers 00:00:00 00:00:00 Michele [place] 350.1.13.10 i ty of [place] [id number] [place] 358049 [facility] 2022-06-28 2022-06-28 [facility] 1.2.840.114 [id number] Univers 00:00:00 00:00:00 [facility] 350.1.13.10 ity of [place] 4.2.7.2.686 Anthony as GUIDO?BLEA [id number] [address] OFFICE [facility] 2022-06-25 2022-06-25 Outpatient R SHIRA BRANCH [facility] [id number] Univers 14:20:00 15:24:09 SHIRA BRANCH itprudencio [facility] 2022-06-25 2022-06-25 Office [facility] 1.2.840.114 [id number] Univers 14:20:00 15:24:09 Visit [facility] 350.1.13.10 ity of [place] 4.2.7.2.686 Anthony as GUIDO?BLEA [id number] [address] OFFICE [facility] 2022-06-19 2022-06-19 Telephone [facility] 1.2.566.776 [id number] [id number] Univers 00:00:00 00:00:00 Michele HEALTH 350.1.13.10 it y of [place] 4.2.7.2.686 Anthony as GUIDO?BLEA [phone] Nh dicramiro KNEY [address] MEDICAL OFFICE [facility] 2022-06-04 2022-06-04 Outpatient R KT [facility] [id number] Univers 12:00:00 23:59:00 MICHELE ity of [facility] 2022-06-04 2022-06-04 Orders Doctor CARMEL 1.2.840.114 [id number] Univers 00:00:00 00:00:00 Only Unassigned, NICHOLAS 350.1.13.10 ity of [facility] 4.2.7.2.686 Anthony as [id number] [facility] [address] 2022-05-28 2022-05-28 Telephone Kt [facility] 1.2.366.282 8450 [id number] Univers 00:00:00 00:00:00 Michele [place] 350.1.13.10 i ty of [place] [phone] Nh nandonv NOAH 059 [facility] 2022-05-25 2022-05-25 Telephone Du, UNIVERSIT 1.2.840.114 10 [id number] Univers 00:00:00 00:00:00 [employer] HEALTH 350.1.13.10 ity of [place] [id number] [facility] [address] 2022-05-03 2022-05-03 Telephone CARMEL Gaona 1.2.930.658 [id number] 00215 Univers 00:00:00 00:00:00 Dylan PETERSON 350.1.13.10 it y of [facility] 4.2.7.2.686 Anthony as [id number] [facility] [address] 2022-05-03 2022-05-03 Telephone Du, UN[facility]ERS[facility] 1.2.840.114 10 [id number] Univers 00:00:00 00:00:00 Qiangjun Y HEALTH 350.1.13.10 ity of [place] [id number] [facility] [address] 2022-05-03 2022-05-03 Telephone [facility] 1.2.223.316 2224 [id number] Univers 00:00:00 00:00:00 Michele PATRIA 350.1.13.10 i ty of [place].2.[place].2.[place] [facility] [id number] Nh dical [facility]9 [facility] 2022-05-01 2022-05-02 Outpatient R CYNTHIA [facility] [id number] Univers 09:33:00 17:27:00 ISABELLA ity [facility] 2022-05-01 2022-05-02 Hospital Michele Meraz 1.2.840.114 [id number] Univers 09:33:00 17:27:00 Encounter Isabella Velázquez 350.1.1 3.10 ity of [facility] 4.2.7.2.686 Anthony as [id number] [facility] [address] 2022-05-01 2022-05-01 Surgery ROSALIND Meraz 1.2.840.114 [id number] Univers 09:30:00 13:00:00 Michele NICHOLAS 350.1.13.10 it y of [facility] 4.2.7.2.686 Anthony as [id number] [facility] [address] 2022-04-14 2022-04-14 Outpatient R [facility] [id number] Univers 14:00:00 14:00:00 ity [facility] 2022-04-14 2022-04-14 Asphalt Mixer 1, Adc Lab [facility] 1.2.840.114 [id number] Univers 09:30:00 09:45:00 Visit Burton Garcia 350.1.13.10 ity [facility] [place]2.7.2.[place] DEL[place] [id number] [facility] [address] 2022-04-14 2022-04-14 Outpatient R RADHA [facility] [id number] Univers 09:30:00 09:30:00 BURTON dangelo [facility] 2022-04-14 2022-04-14 Sergei [address] [facility] 1.2.840.114 [id number] Univers 00:00:00 00:00:00 Shira HEALTH 350.1.13.10 ity of [place] 4.2.7.2.686 Anthony as GUIDO?BLEA [id number] [address] MEDICAL OFFICE [facility] 2022-04-08 2022-04-08 Telephone [facility] 1.2.536.878 [id number] [id number] Univers 00:00:00 00:00:00 Shira HEALTH 350.1.13.10 ity of [place] 4.2.7.2.686 Anthony as GUIDO?BLEA [id number] [address] OFFICE [facility] 2022-04-01 2022-04-01 Telephone ROSALIND Meraz 1.2.223.586 [id number] [id number] Univers 00:00:00 00:00:00 Michele NICHOLAS 350.1.13.10 it y of [facility] 4.2.7.2.686 Anthony as [id number] [address] 2022-03-27 2022-03-27 Outpatient R [facility] [id number] Univers 14:00:00 15:19:35 SHIRA ity [facility] 2022-03-27 2022-03-27 Office [facility] 1.2.840.114 [id number] Univers 14:00:00 15:19:35 Visit Shira HEALTH 350.1.13.10 ity of [facility] 4.2.7.2.686 Anthony as GUIDO?BLEA [id number] [address] MEDICAL OFFICE [facility] 2022-03-26 2022-03-26 Refill [facility] 1.2.840.114 [id number] Univers 00:00:00 00:00:00 Shira HEALTH 350.1.13.10 ity of [facility] 4.2.7.2.686 Anthony as GUIDO?BLEA [id number] [address] OFFICE [facility] 2022-03-23 2022-03-23 Telephone [facility] 1.2.773.532 [id number] [id number] Univers 00:00:00 00:00:00 Michele [place] 350.1.13.10 i ty of [facility] 4.2.7.2.686 [place] [id number] Nh dicramiro NAL 059 [facility] 2022-03-19 2022-03-19 Outpatient R KT [facility] [id number] Univers 09:20:00 09:20:00 MICHELE ity of [facility] 2022-03-17 2022-03-17 Telephone [facility] 1.2.476.402 [id number] [id number] Univers 00:00:00 00:00:00 [facility] 350.1.13.10 ity of [place] 4.2.7.2.686 Anthony as GUIDO?BLEA [id number] [facility] GODOY[address] OFFICE [facility] 2022-03-17 2022-03-17 Refill [facility] 1.2.840.114 [id number] Univers 00:00:00 00:00:00 [facility] 350.1.13.10 ity of [place] 4.2.7.2.686 Anthony as GUIDO?BLEA [id number] [facility] GODOY[address] OFFICE [facility] 2022-03-16 2022-03-16 [facility] 1.2.840.114 [id number] Univers 00:00:00 00:00:00 [facility] 350.1.13.10 ity [facility] 4.2.7.2.686 Anthony as GUIDO?BLEA [id number] [address] 2022-03-12 2022-03-12 Outpatient Sean MERAZ [facility] [id number] Univers 12:00:00 12:44:36 MICHELE ity [facility] 2022-03-12 2022-03-12 Office [facility] 1.2.840.114 [id number] Univers 12:00:00 12:44:36 Visit Michele [place] 350.1.13.10 i ty of [facility] 4.2.7.2.686 [place] [phone] Nh michele NAL [address] [place] [address] 2022-03-10 2022-03-10 Telephone [facility]irkUN[facility] 1.2.532.410 [id number] [id number] Univers 00:00:00 00:00:00 Anil HEALTH 350.1.13.10 it y of [place] 4.2.7.2.686 Anthony as GUIDO?BLEA [id number] [facility] [address] MEDICAL OFFICE [facility] 2022-03-09 2022-03-09 Outpatient R DIRK [facility] [id number] Univers 16:00:00 16:00:00 ANIL ity of [facility] 2022-03-09 2022-03-09 Telephone [facility]UN[facility] 1.2.878.866 [id number] Univers 00:00:00 00:00:00 Anil HEALTH 350.1.13.10 it y of [place] 4.2.7.2.686 Anthony as GUIDO?BLEA [id number] [address] OFFICE [facility] 2022-03-09 2022-03-09 Milo SandyUNM [facility] 1.2.880.393 [id number] [id number] Univers 00:00:00 00:00:00 Destiny [facility] 350.1.13.10 ity of [place] 4.2.7.2.[place] [id number] [facility] 059 [facility] 2022-03-06 2022-03-06 Outpatient R DU [facility] [id number] Univers 15:47:00 23:59:00 DESTINY rossiy o f [facility] 2022-03-04 2022-03-04 Refill DirkUN[facility] 1.2.840.114 [id number] Univers 00:00:00 00:00:00 Anil HEALTH 350.1.13.10 it y of [place] 4.2.7.2.686 Anthony as GUIDO?BLEA [id number] [address] MEDICAL OFFICE [facility] 2022-03-04 2022-03-04 Orders Doctor CARMEL 1.2.840.114 [id number] Univers 00:00:00 00:00:00 Only Unassigned, NICHOLAS 350.1.13.10 ity of [place] [facility] 4.2.7.2.686 Anthony as [id number] [address] 2022-03-02 2022-03-02 Outpatient R DU [facility] [id number] Univers 09:20:00 09:58:44 DESTINY dangelo o f [facility] 2022-03-02 2022-03-02 Office [facility]UN[facility] 1.2.840.114 [id number] Univers 09:20:00 09:58:44 Visit Destiny ESPAÑA 350.1.13.10 ity of [place] 4[place]2.7.2.[place] [id number] Nh dical NAL 059 [facility] 2022-02-07 2022-02-07 Nurse Citlaly David 1.2.840.114 [id number] Univers 00:00:00 00:00:00 Triage NICHOLAS 350.1.13.10 it y of [facility] 4.2.7.2.686 Anthony as [id number] [address] 2022-02-06 2022-02-06 Outpatient R DIRK [facility] [id number] Univers 15:00:00 16:09:26 ANIL ity [facility] 2022-02-06 2022-02-06 Office DirkUN[facility] 1.2.840.114 [id number] Univers 15:00:00 16:09:26 Visit [facility] 350.1.13.10 it y of [place] 4.2.7.2.686 Anthony as GUIDO?BLEA [id number] Nh dical KNEY [address] [facility] OFFICE [facility] 2022-02-05 2022-02-05 Telephone SarinaUN[facility] 1.2.452.149 [id number] [id number] Univers 00:00:00 00:00:00 Shira [place] 350.1.13.10 ity of [place] 4.2.7.2.[place] [id number] Nh dical NAL 044 [facility] 2022-01-28 2022-01-28 Telephone SarinaUN[facility] 1.2.424.401 3565 8430 Univers 00:00:00 00:00:00 Shira HEALTH 350.1.13.10 ity of [place] 4.2.7.2.686 Anthony as GUIDO?BLEA [id number] [address] OFFICE [facility] 2022-01-22 2022-01-22 Sergei DeeUNM [facility] 1.2.840.114 [id number] Univers 00:00:00 00:00:00 Wondiful A HEALTH 350.1.13.10 ity of [place] 4.2.7.2.686 Anthony as GUIDO?BLEA [id number] [address] 2022-01-14 2022-01-14 Outpatient R DU, [facility] [id number] Univers 10:00:00 10:00:00 DESTINY ity o f [facility] 2022-01-14 2022-01-14 Orders Doctor CARMEL Tabares.2.840.114 [id number] Univers 00:00:00 00:00:00 Only Unassigned, NICHOLAS 350.1.13.10 ity of [place] [facility] 4.2.7.2.686 Anthony as [id number] [address] 2022-01-11 2022-01-11 Sergei DeeUNM [facility] 1.2.840.114 [id number] Univers 00:00:00 00:00:00 Wondiful A HEALTH 350.1.13.10 ity of [place] 4.2.7.2.686 Anthony as GUIDO?BLEA [id number] [address] 2021-12-29 2021-12-29 Orders Doctor CARMEL Tabares.2.840.114 [id number] Univers 00:00:00 00:00:00 Only Unassigned, NICHOLAS 350.1.13.10 ity of [place] [facility] 4.2.7.2.686 Anthony as [id number] [address] 2021-12-15 2021-12-16 Outpt Diag nullFlavo [facility] [id number] Memoria 17:34:00 05:59:00 Services r Outpatient 00 l Cyn Macdonald 2021-11-17 2021-11-17 Orders Doctor CARMEL Boyle2.840.114 [id number] Univers 00:00:00 00:00:00 Only Unassigned, NICHOLAS 350.1.13.10 ity of [place] [facility] 4.2.7.2.686 Anthony as [id number] [address] 2021-11-12 2021-11-12 Telephone [facility] 1.2.831.885 [id number] [id number] Univers 00:00:00 00:00:00 Shira HEALTH 350.1.13.10 ity of [place] 4.2.7.2.686 Anthony as GUIDO?BLEA [id number] [address] MEDICAL OFFICE [facility] 2021-11-11 2021-11-11 Telephone [facility] 1.2.571.811 [id number] Univers 00:00:00 00:00:00 Shira HEALTH 350.1.13.10 ity [facility] 4.2.7.2.686 Anthony as GUIDO?BLEA [id number] [address] OFFICE [facility] 2021-11-06 2021-11-06 [facility] 1.2.476.090 [id number] 0115 Univers 00:00:00 00:00:00 [facility] 350.1.13.10 ity [facility] 4.2.7.2.686 Anthony as GUIDO?BLEA [id number] [address] 2021-11-03 2021-11-03 [facility] [id number] Univers 15:40:00 16:24:15 SHIRA ity [facility] 2021-11-03 2021-11-03 Office [facility] 1.2.840.114 [id number] Univers 15:40:00 16:24:15 Visit [facility] 350.1.13.10 ity of [place] 4.2.7.2.686 Anthony as GUIDO?BLEA [id number] [address] OFFICE [facility] 2021-11-03 2021-11-03 [employer] Lab, Ang - Cornelius [facility] 1.2.840.1 14 [id number] Univers 16:00:00 16:15:[address] 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 - Db [facility] 1.2.840.1 14 [id number] Univers 16:30:00 16:45:00 [facility] 350.1.13.10 ity of [place] 4.2.7.2.686 Anthony as GUIDO?BLEA [id number] Nh michele HENRIQUEZ [address] [facility] OFFICE [facility] 2021-10-27 2021-10-27 Office [facility] 1.2.840.114 [id number] Univers 15:20:00 16:26:33 Visit [facility] 350.1.13.10 ity of [place] 4.2.7.2.686 Anthony as GUIDO?BLEA [id number] Nh michele HENRIQUEZ 0[address] [facility] OFFICE [facility] 2021-10-27 2021-10-27 Outpatient Sean BARBA [facility] [id number] Univers 09:20:00 09:36:44 CHELO [facility] 2021-10-27 2021-10-27 Urgent Chelo Barba [facility] 1.2.840.114 [id number] Univers 09:20:00 09:36:44 Care Rafalcogesron, [facility] HEALTH 350.1.13.10 ity of [place] 4.2.7.2.686 Anthony as GUIDO?BLEA [id number] [facility] [address] [facility] OFFICE [facility] 2021-10-18 2021-10-18 Urgent Kayla Herbermatt [facility] 1.2.840.114 [id number] Univers 11:00:00 11:20:00 Davey Hanson [facility] 350.1.13.10 ity of [place] 4.2.7.2.686 Anthony as GUIDO?BLEA [id number] [facility] [address] [facility] OFFICE [facility] 2021-10-18 2021-10-18 Outpatient Sean HANSON [facility] [id number] Univers 11:00:00 11:00:[address] [facility] 2021-10-17 2021-10-17 Sergei Gates [facility] 1.2.840.114 [id number] Univers 00:00:00 00:00:00 Karmen HEALTH 350.1.13.10 it y of [place] 4.2.7.2.686 Anthony as GUIDO?BLEA [phone] [facility] [address] MEDICAL OFFICE [facility] 2021-09-09 2021-09-09 [facility] 1.2.840.114 [id number] Univers 00:00:00 00:00:00 Zuri A HEALTH 350.1.13.10 i ty of [place] 4.2.7.2.686 Anthony as GUIDO?BLEA [phone] [facility] [address] [facility] OFFICE [facility] 2021-09-02 2021-09-02 [facility] 1..840.114 [id number] Univers 00:00:00 00:00:00 Wondiful A HEALTH 350.1.13.10 ity of [place] 4.2.7.2.686 Anthony as GUIDO?BLEA [phone] [address] OFFICE [facility] 2021-08-29 2021-08-29 [facility] [id number] Univers 13:00:00 13:00:00 ZURI ity of [facility] 2021-08-27 2021-08-27 Urgent Kody Karmen [facility] ..840.11 4 [id number] Univers 13:00:00 13:20:00 Care Jude Desir [facility] 350.1.13.10 ity of [place] 4.2.7.2.686 Anthony as GUIDO?BLEA [phone] [address] OFFICE [facility] 2021-08-27 2021-08-27 Outpatient R THANG [facility] [id number] Univers 13:00:00 13:00:00 JUDE dangelo o f [facility] 2021-08-26 2021-08-26 [email or web address] 1..[id number] Univers 00:00:00 00:00:00 Zuri A HEALTH 350.1.13.10 i ty of [place] 4.2.7.2.686 Anthony as GUIDO?BLEA [phone] [address] MEDICAL OFFICE [facility] 2021-08-26 2021-08-26 [facility] 1.2.840.114 [id number] Univers 00:00:00 00:00:00 Zuri A HEALTH 350.1.13.10 i ty of [place] 4.2.7.2.686 Anthony as GUIDO?BLEA [phone] [address] OFFICE [facility] 2021-08-22 2021-08-22 [facility] [id number] Univers 16:00:00 16:00:00 [facility] 2021-08-22 2021-08-22 [facility] [id number] Univers 15:00:00 15:00:00 [facility] 2021-08-22 2021-08-22 [facility] 1.2.840.114 [id number] Univers 00:00:00 00:00:00 [facility] 350.1.13.10 ity of [place] 4.2.7.2.686 Anthony as GUIDO?BLEA [phone] [address] OFFICE [facility] 2021-08-14 2021-08-14 [facility] [id number] Univers 13:00:00 15:12:18 [facility] 2021-08-14 2021-08-14 Office [facility] 1.2.840.114 [id number] Univers 13:00:00 15:12:18 Visit [facility] HEALTH 350.1.13.10 i ty of [place] 4.2.7.2.686 Anthony as GUIDO?BLEA [phone] [address] OFFICE [facility] 2021-08-13 2021-08-13 Telephone [facility] 1.2.840.114 [id number] Univers 00:00:00 00:00:00 [facility] HEALTH 350.1.13.10 it y of Edward [place] 4.2.7.2.686 Anthony as GUIDO?BLEA [phone] [address] OFFICE [facility] 2021-08-12 2021-08-[address] [facility] 1.2.840.114 [id number] Univers 00:00:00 00:00:00 [facility] 350.1.13.10 it y of Edward [place] 4.2.7.2.686 Anthony as GUIDO?BLEA [phone] Nh michele HENRIQUEZ [address] [place] [address] OFFICE [facility] 2021-08-07 2021-08-[address] [facility] 1.2.840.114 [id number] Univers 00:00:00 00:00:00 Nik HEALTH 350.1.13.10 it y of Edward [place] 4.2.7.2.686 Anthony as GUIDO?BLEA [phone] Nh michele HENRIQUEZ [address] [place] [address] OFFICE [facility] 2021-08-01 2021-08-[address] [facility] 1.2.840.114 [id number] Univers 00:00:00 00:00:00 [facility] 350.1.13.10 it y of Edward [place] 4.2.7.2.686 Anthony as GUIDO?BLEA [phone] Nh michele HENRIQUEZ [address] [place] [address] OFFICE [facility] 2021-07-04 2021-07-04 [facility], [facility] 1.2.840.1 14 [id number] Univers 16:45:00 17:00:00 Visit iNk Vargas [facility] 350.1.13 .10 ity of [place] 4.2.7.2.686 Anthoyn as GUIDO?BLEA [phone] Nh michele HENRIQUEZ [address] [facility] OFFICE [facility] 2021-07-04 2021-07-04 Outpatient R SAM [facility] [id number] [facility] 16:45:00 16:45:00 NIK [facility] 2021-07-04 2021-07-[address] [facility] 1.2.840.114 [id number] Univers 16:15:00 16:30:00 Visit [facility] 350.1.13.10 it y of Edward [place] 4.2.7.2.686 Anthony as GUIDO?BLEA [phone] [address] OFFICE [facility] 2021-07-04 2021-07-04 Outpatient R SAM [facility] [id number] Univers 16:15:00 16:15:00 NIK dangelo [facility] 2021-06-23 2021-06-23 Telephone [facility] 1.2.434.055 [id number] Univers 00:00:00 00:00:00 Zuri A HEALTH 350.1.13.10 i ty [facility] 4.2.7.2.686 Anthony as GUIDO?BLEA [id number] [address] OFFICE [facility] 2021-06-18 2021-06-18 [facility]phone [email or web address] 1.2.115.373 [id number] Univers 00:00:00 00:00:00 Zuri A HEALTH 350.1.13.10 i ty [facility] 4.2.7.2.686 Anthony as GUIDO?BLEA [phone] [address] 2021-05-28 2021-05-28 Telephone [facility] 1.2.530.682 [id number] Univers 00:00:00 00:00:00 Qiahai [facility] 350.1.13.10 ity [facility] 4.2.7.2.[place] [phone] [address] 2021-05-27 2021-05-27 Telephone [facility] 1.2.594.374 [id number] Univers 00:00:00 00:00:00 Qiajaskarannanette LILLY 350.1.13.10 ity of [facility] 4.2.7.2.[place] [phone] [address] 2021-05-20 2021-05-20 Orders Doctor CARMEL 1.2.840.114 [id number] Univers 00:00:00 00:00:00 Only Unassigned, NICHOLAS 350.1.13.10 ity of [place] [facility] 4.2.7.2.686 Anthony as [phone] [address] 2021-05-19 2021-05-19 [facility]ill [email or web address] 1.2.840.114 [id number] Univers 00:00:00 00:00:00 Zuri A HEALTH 350.1.13.10 i ty of [place] 4.2.7.2.686 Anthony as GUIDO?BLEA [phone] [address] OFFICE [facility] 2021-05-19 2021-05-19 Telephone [facility] 1.2.484.326 [id number] Univers 00:00:00 00:00:00 Qiangjun [place] 350.1.13.10 ity of [facility] 4.2.7.2.686 [place] [phone] [facility] 059 [facility] 2021-05-16 2021-05-16 [facility]ill [email or web address] 1.2.840.114 [id number] Univers 00:00:00 00:00:00 Zuri A HEALTH 350.1.13.10 i ty of [place] 4.2.7.2.686 Anthony as GUIDO?BLEA [id number] [address] OFFICE [facility] 2021-05-08 2021-05-08 [email or web address] 1.2.840.114 [id number] Univers 00:00:00 00:00:00 Zuri A HEALTH 350.1.13.10 i ty of [place] 4.2.7.2.686 Anthony as GUIDO?BLEA [id number] [address] OFFICE [facility] 2021-04-30 2021-04-30 [facility] [id number] Univers 14:00:00 14:46:58 ZURI ity of [facility] 2021-04-30 2021-04-30 Office [email or web address] 1.2.840.114 [id number] Univers 14:00:00 14:46:58 Visit Zuri A HEALTH 350.1.13.10 i ty of [place] 4.2.7.2.686 Anthony as GUIDO?BLEA [phone] [address] OFFICE [facility] 2021-04-30 2021-04-30 Telephone [facility] 1.2.840.114 [id number] Univers 00:00:00 00:00:00 Wondiful A HEALTH 350.1.13.10 ity of [place] 4.2.7.2.686 Anthony as GUIDO?BLEA [phone] [facility] GODOY[address] OFFICE [facility] 2021-03-13 2021-03-13 Telephone [facility] 1..840.114 [id number] Univers 00:00:00 00:00:00 Wondiful A HEALTH 350.1.13.10 ity of [place] 4.2.7.2.686 Anthony as GUIDO?BLEA [id number] [address] OFFICE [facility] 2021-03-04 2021-03-04 Outpatient R LEILA [facility] [id number] Univers 14:00:00 14:58:03 WONDIFUL ity o f [facility] 2021-03-04 2021-03-04 Office Mariela Edwards [facility] ..840.114 9 [id number] Univers 14:00:00 14:58:03 Visit LeilaChris wangviful A HEALTH 350.1.13.1 0 ity of [place] 4.2.7.2.686 Anthony as GUIDO?BLEA [id number] [address] OFFICE [facility] 2021-03-04 2021-03-04 Outpatient R LEILA [facility] [id number] Univers 14:00:00 14:58:03 WONDIFUL ity o f [facility] 2021-03-04 2021-03-04 [facility] [id number] Univers 14:00:00 14:58:03 WONDIFUL ity o f [facility] 2021-02-26 2021-02-26 Telephone [facility] 1..840.114 [id number] Univers 00:00:00 00:00:00 Wondiful A HEALTH 350.1.13.10 ity of [place] 4.2.7.2.686 Anthony as GUIDO?BLEA [id number] [address] OFFICE [facility] 2021-02-26 2021-02-26 Telephone [facility] 1.2.840.114 [id number] Univers 00:00:00 00:00:00 Wondiful A HEALTH 350.1.13.10 ity [facility] 4.2.7.2.686 Anthony as GUIDO?BLEA [phone] Nh michele HENRIQUEZ 044 [facility] 2021-02-18 2021-02-18 Telephone [facility] 1.2.571.730 [id number] Univers 00:00:00 00:00:00 Qiahai LILLY 350.1.13.10 ity of [facility] 4.2.7.2.686 [place] [id number] Nh dicnv NAL 059 [facility] 2021-02-13 2021-02-13 Telephone [facility] 1.2.808.821 [id number] Univers 00:00:00 00:00:00 [facility]iny [facility] 350.1.13.10 ity of [facility] 4.2.7.2.686 [place] [phone] [place] 358049 [facility] 2021-02-13 2021-02-13 Orders Doctor CARMEL 1.2.840.114 [id number] Univers 00:00:00 00:00:00 Only Unassigned, NICHOLAS 350.1.13.10 ity of [place] [facility] 4.2.7.2.686 Anthony as [phone] [address] 2021-02-10 2021-02-10 Telephone [facility] 1.2.109.415 [id number] Univers 00:00:00 00:00:00 Bayronnanette LILLY 350.1.13.10 ity of [facility] 4.2.7.2.686 [place] [phone] Nh dicnv NAL 9 [facility] 2021-02-10 2021-02-10 [facility] 1.2.079.247 [id number] Univers 00:00:00 00:00:00 Qiajaskarannanette [place] 350.1.13.10 ity of [place] 4.2.7.2.686 [place] [id number] [facility] NAL 9 [facility] 2021-02-04 2021-02-04 Telephone [facility] 1.2.998.814 [id number] Univers 00:00:00 00:00:00 Qiangnanette [place] 350.1.13.10 ity of [place] 4.2.7.2.686 [place] [phone] Nh dical NAL 059 [facility] 2021-02-03 2021-02-03 Outpatient R DU, [facility] [id number] Univers 13:48:03 23:59:00 QIANGJUN ity o [facility] 2021-02-03 2021-02-03 Outpatient R DU, [facility] [id number] Univers 13:48:03 23:59:00 QIANGJUN ity o [facility] 2021-02-03 2021-02-03 Outpatient R DU, [facility] [id number] Univers 13:48:03 23:59:00 QIANGJUN ity o [facility] 2021-02-03 2021-02-03 [facility] 1.2.840.114 [id number] Univers 13:48:03 23:59:00 Encounter Bayronnanette [place] 350.1.13.10 ity of [place] 4.2.7.2.686 [place] [id number] Nh dical NAL 843 [facility] 2021-01-13 2021-01-13 Outpatient R DU, [facility] [id number] Univers 15:20:00 16:08:31 QIANGJUN ity o [facility] 2021-01-13 2021-01-13 Outpatient R DU, [facility] [id number] Univers 15:20:00 16:08:31 QIANGJUN ity o [facility] 2021-01-13 2021-01-13 Outpatient R DU, [facility] [id number] Univers 15:20:00 16:08:31 QIANGJUN ity o [facility] 2021-01-13 2021-01-13 Office [facility] 1.2.840.114 [id number] Univers 15:20:00 16:08:31 Visit Bayronnanette [place] 350.1.13.10 ity of [place] 4.2.7.2.686 [place] [id number] Nh dical NAL 059 [facility] 2021-01-13 2021-01-13 Office [facility] 1.2.840.114 [id number] Univers 15:10:05 16:08:31 Visit Destiny ESP[place] 350.1.13.10 ity of [facility] 4.2.7.2.686 [place] [phone] [facility] NAL [address] [place] [address] 2021-01-07 2021-01-07 Telephone [facility] 1.2.490.087 [id number] Univers 00:00:00 00:00:00 Destiny ESP[place] 350.1.13.10 ity of [facility] 4.2.7.2.686 [place] [phone] [facility] NAL 9 [facility] 2021-01-06 2021-01-06 Orders Doctor CARMEL 1.2.840.114 [id number] Univers 00:00:00 00:00:00 Only Unassigned, NICHOLAS 350.1.13.10 ity of [place] [facility] 4.2.7.2.686 Anthony as [phone] [address] 2020-12-30 2020-12-30 Refill [facility] 1.2.840.114 [id number] Univers 00:00:00 00:00:00 Wondiful A HEALTH 350.1.13.10 ity [facility] 4.2.7.2.686 Anthony as GUIDO?BLEA [phone] Nh nandoramiro HENRIQUEZ 0[address] [facility] OFFICE [facility] 2020-12-24 2020-12-24 [facility] [employer] [facility], Ang - Db [facility] 1.2.840.1 14 [id number] Univers 15:16:07 15:31:07 Visit Moreno Dee HEALTH 350.1.13.1 0 ity of [place] 4.2.7.2.686 Anthony as GUIDO?BLEA [id number] [facility] 353 [facility] OFFICE [facility] 2020-12-24 2020-12-24 Outpatient R LEILA [facility] [id number] Univers 15:30:00 15:30:00 WONDIFUL ity o f [facility] 2020-12-24 2020-12-24 [facility] [id number] Univers 15:30:00 15:25:12 WONDIFUL ity o f [facility] 2020-12-24 2020-12-24 Telephone [facility] 1.2.840.114 [id number] Univers 00:00:00 00:00:00 Wondiful A HEALTH 350.1.13.10 ity of [place] 4.2.7.2.686 Anthony as GUIDO?BLEA [phone] [address] OFFICE [facility] 2020-12-24 2020-12-24 [facility]phone [facility] 1.2.840.114 [id number] Univers 00:00:00 00:00:00 Wondiful A HEALTH 350.1.13.10 ity of [place] 4.2.7.2.686 Anthony as GUIDO?BLEA [phone] [address] OFFICE [facility] 2020-12-19 2020-12-19 Telephone [facility] 1.2.840.114 [id number] Univers 00:00:00 00:00:00 Wondiful A HEALTH 350.1.13.10 ity of [place] 4.2.7.2.686 Anthony as GUIDO?BLEA [id number] [address] OFFICE [facility] 2020-12-19 2020-12-19 Telephone [facility] 1.2.840.114 [id number] Univers 00:00:00 00:00:00 Wondiful A HEALTH 350.1.13.10 ity of [place] 4.2.7.2.686 Anthony as GUIDO?BLEA [phone] [address] OFFICE [facility] 2020-12-12 2020-12-12 Orders Doctor CARMEL 1.2.840.114 [id number] Univers 00:00:00 00:00:00 Only Unassigned, NICHOLAS 350.1.13.10 ity of [place] [facility] 4.2.7.2.686 Anthony as [phone] [address] 2020-12-10 2020-12-10 Telephone Leila [facility] 1.2.840.114 [id number] Univers 00:00:00 00:00:00 Wondiful A HEALTH 350.1.13.10 ity of [place] 4.2.7.2.686 Anthony as GUIDO?BLEA [phone] Nh michele HENRIQUEZ 044 [facility] OFFICE [facility] 2020 2020 [employer] [facility], Ang - [facility] 1.2.840.1 14 [id number] Univers 16:05:47 16:20:47 Visit Pat Dee HEALTH 350.1.13.10 ity of [place] 4.2.7.2.686 Anthony as GUIDO?BLEA [phone] Nh michele HENRIQUEZ 353 [facility] OFFICE [facility] 2020 2020 Outpatient R LEILA [facility] [id number] Univers 16:15:00 16:15:00 PAT ity of [facility] 2020 2020 Outpatient R LEILA [facility] [id number] Univers 15:30:00 16:03:54 WONDIFUL ity o [facility] 2020 2020 Outpatient R LEILA [facility] [id number] Univers 15:30:00 16:03:54 WONDIFUL ity o f [facility] 2020 2020 Office [facility] 1.2.840.114 [id number] Univers 15:27:26 16:03:54 Visit Wondiful A HEALTH 350.1.13.10 ity of [place] 4.2.7.2.686 Anthony as GUIDO?BLEA [phone] Nh michele HENRIQUEZ [address] [place] [address] OFFICE [facility] 2020-11-26 2020-11-26 Refill Leila [facility] 1.2.840.114 [id number] Univers 00:00:00 00:00:00 Wondiful A Health 350.1.13.10 ity of [place] 4.2.7.2.686 Anthony as Professio [phone] Nh michele [address] Office [facility] 2020-11-25 2020-11-25 Refill Leila [facility] 1.2.840.114 [id number] Univers 00:00:00 00:00:00 Wondiful A Health 350.1.13.10 ity of [place] 4.2.7.2.686 Anthony as Professio [phone] Nh michele byrne [address] [place] [address] Office [facility] 2020-11-14 2020-11-14 Telephone Leila [facility] 1.2.840.114 [id number] Univers 00:00:00 00:00:00 Wondiful A Health 350.1.13.10 ity of [place] 4.2.7.2.686 Anthony as Guido?Blea [phone] Nh michele henriquez [address] [place] [address] Office [facility] 2020-10-09 2020-10-09 Office Le, Phi-Maria Luisa [facility] 1.2.840.114 [id number] Univers 14:00:00 16:00:00 Visit Patti [facility] 350.1.13.10 [place]2.7.2.[place] [id number] [address] 2020-10-09 2020-10-09 Office Le, Phi-Maria Luisa [facility] 1.2.840.114 [id number] Univers 13:55:59 15:55:59 Visit Patti JAMA AT 350.1.13.10 ity of [place] 4.2.7.2.686 [place] [id number] [address] 2020-10-09 2020-10-09 Outpatient R LE, PHI-MARIA LUISA [facility] [id number] Univers 14:00:00 14:00:00 ity [facility] 2020-10-09 2020-10-09 Outpatient R LE, PHI-MARIA LUISA [facility] [id number] Univers 14:00:00 14:00:00 ity [facility] 2020-10-09 2020-10-09 Outpatient R LE, PHI-MARIA LUISA [facility] [id number] Univers 14:00:00 14:00:00 ity [facility] 2020-10-09 2020-10-09 Outpatient R LE, PHI-MARIA LUISA [facility] [id number] Univers 14:00:00 14:00:[address] [facility] 2020-10-09 2020-10-09 Letter Doctor CARMEL 1.2.840.114 [id number] Univers 00:00:00 00:00:00 (Out) Unassigned, NICHOLAS 350.1.13.10 ity of [place] [facility] 4.2.7.2.686 Anthony as [phone] [address] 2020-10-07 2020-10-07 Telephone Leila [facility] 1.2.840.114 [id number] Univers 00:00:00 00:00:00 Wondiful A Health 350.1.13.10 ity of [place] 4.2.7.2.686 Anthony as Guido?Blea [phone] [address] Medical Office Building 2020-10-02 2020-10-02 Telephone Amanda Butler [facility] 1.2.840.114 [id number] Univers 00:00:00 00:00:00 Patti [facility] at 350.1.13.10 ity of [place] [phone] [facility] [address] 2020-09-13 2020-09-13 Outpatient Sean DEE [facility] [id number] Univers 15:45:00 15:45:00 WONDIFUL ity o f [facility] 2020-08-12 2020-08-12 Outpatient Sean DEE [facility] [id number] Univers 10:45:00 10:45:00 WONDIFUL ity o f [facility] 2020-04-11 2020-04-11 Outpatient Sean DEE [facility] [id number] Univers 14:30:00 14:30:00 WONDIFUL ity o f [facility] 2020-04-04 2020-04-04 Outpatient Sean DEE [facility] [id number] Univers 00:00:00 00:00:00 WONDIFUL ity o f [facility] 2020-03-25 2020-03-25 Outpatient Sean DEE [facility] [id number] Univers 17:00:00 17:00:00 WONDIFUL ity o f [facility] 2020-02-23 2020-02-23 Outpatient R [facility] [id number] Univers 14:20:00 14:20:00 prudencio [facility] 2020-02-19 2020-02-19 Outpatient R LEILA [facility] [id number] Univers 14:30:00 14:30:00 WONDIFUL ity o f [facility] 2020-01-29 2020-01-29 Outpatient R LEILA [facility] [id number] Univers 15:00:00 15:00:00 WONDIFUL ity o f [facility] 2019-11-13 2019-11-13 Telephone [facility] 1.2.840.114 [id number] 00:00:00 00:00:00 Chepe MUNIZ 350.1.13.10 [facility] 4.2.7.2.686 PAVILLION [id number] [id number] 2019-11-03 2019-11-03 Outpatient R KAILYN [facility] [id number] Univers 11:00:00 11:00:00 ERIC [facility] 2019-11-03 2019-11-03 Outpatient R KAILYN [facility] [id number] Univers 09:45:00 09:45:00 [facility] 2019-10-17 2019-10-17 Outpatient R SHERLY [facility] [id number] Univers 15:00:00 15:00:00 CHEPE [facility] 2019-09-27 2019-09-27 Outpatient R SANJUANASPEEDY [facility] [id number] Univers 09:45:49 23:59:00 CHEPE [facility] 2019-09-27 2019-09-27 Outpatient R SHERLY [facility] [id number] Univers 08:00:00 08:00:00 CHEPE [facility] 2019-06-27 2019-06-27 [facility] [id number] Univers 13:30:00 13:30:00 [facility] 2019-06-13 2019-06-13 [facility] [id number] Univers 16:00:00 16:00:00 [facility] 2019-05-23 2019-05-23 Outpatient R GIANNI, [facility] [id number] Univers 13:00:00 13:00:00 [facility] 2019-04-17 2019-04-17 Outpatient R [facility] [id number] Univers 16:00:00 16:00:00 [facility] 2019-04-05 2019-04-05 Outpatient [facility] [id number] Univers 15:00:00 15:00:00 DESTINY rossiprudencio o f [facility] Results Test Description Test Time Test Comments Results Result Comments Source IMMUNOLOGY 2022-07-22 21:25:00 Test Item Value Reference Range Interpretation Comme nts Coronavirus (COVID-19) DIVYA (test code = Not Detected 8(07/22/22 4:25 PM) Coronavirus (COVID-19) DIVYA) [facility] 21:25:00 Test Item Value Reference Range Interpretation Comments Coronavirus (COVID-19) Not Detected DIVYA (test code = 16(07/22/22 4:25 PM) Coronavirus (COVID-19) DIVYA) [facility]2023-06-12 10:20:00 Test Item Value Reference Range Interpretation Comments Glucose Lvl (test code = Glucose Lvl) 108 70-99 [facility]2023-06-12 10:20:00 Test Item Value Reference Range Interpretation Comments BUN (test code = BUN) 21 7-22 [facility]2023-06-12 10:20:00 Test Item Value Reference Range Interpretation Comments Creatinine Lvl (test code = Creatinine 1.03 0.50-1.40 Lvl) [facility] [id number] 10:20:00 Test Item Value Reference Range Interpretation Comments Sodium Lvl (test code = Sodium Lvl) 139 135-145 [facility] [id number] 10:20:00 Test Item Value Reference Range Interpretation Comments Potassium Lvl (test code = Potassium 4.0 3.5-5.1 Lvl) [facility] [id number] 10:20:00 Test Item Value Reference Range Interpretation Comments Chloride Lvl (test code = Chloride Lvl) 106 95-109 [place] [id number] 10:20:00 Test Item Value Reference Range Interpretation Comments CO2 (test code = CO2) - [place] [id number] 10:20:00 Test Item Value Reference Range Interpretation Comments Calcium Lvl (test code = Calcium Lvl) 9.5 8.5-10.5 [place] 137953-06-12 10:20:00 Test Item Value Reference Range Interpretation Comments AGAP (test code = AGAP) 8.0 10.0-20.0 [place] [id number] 10:20:00 Test Item Value Reference Range Interpretation Comments eGFR (test code = eGFR) 78 [facility]2023-06-12 10:20:00 Test Item Value Reference Range Interpretation Comments Magnesium Lvl (test code = Magnesium 2.0 1.8-2.4 Lvl) [id number] 10:20:00 Test Item Value Reference Range Interpretation Comments Glucose Lvl (test code = Glucose Lvl) 108 70-99 [facility]FC2788-89-77 10:20:00 Test Item Value Reference Range Interpretation Comments BUN (test code = BUN) 21 7-22 [facility]GLYC9725-01-04 10:20:00 Test Item Value Reference Range Interpretation Comments Creatinine Lvl (test code = Creatinine 1.03 0.50-1.40 Lvl) [id number] 10:20:00 Test Item Value Reference Range Interpretation Comments Sodium Lvl (test code = Sodium Lvl) 139 135-145 [place] [id number] 10:20:00 Test Item Value Reference Range Interpretation Comments Potassium Lvl (test code = Potassium 4.0 3.5-5.1 Lvl) [facility]6146[facility]00[facility] 10:20:00 Test Item Value Reference Range Interpretation Comments Chloride Lvl (test code = Chloride Lvl) 106 95-109 [place] [address]-06-12 10:20:00 Test Item Value Reference Range Interpretation Comments CO2 (test code = CO2) -32 [place] 882323-06-12 10:20:00 Test Item Value Reference Range Interpretation Comments Calcium Lvl (test code = Calcium Lvl) 9.5 8.5-10.5 [facility]RkobutzKWGTUWPRA6177-06-31 10:20:00 Test Item Value Reference Range Interpretation Comments AGAP (test code = AGAP) 8.0 10.0-20.0 [facility] LancasterUkbozoaRIJWOOZXQ4014-21-62 10:20:00 Test Item Value Reference Range Interpretation Comments eGFR (test code = eGFR) 78 [facility] LancasterUwgjeujQBHFUPKDU7509-85-01 10:20:00 Test Item Value Reference Range Interpretation Comments Magnesium Lvl (test code = Magnesium 2.0 1.8-2.4 Lvl) [facility] AND [id number] 20:18:00 Test Item Value Reference Range Interpretation Comments UA RBC (test code = 1 See_Comment [Automa elva message] The UA RBC) system which ge nerated this result transmit elva reference range : <=2. The reference range was not used to interpr et this result as janusz l/abnormal. [facility] AND [id number] 20:18:00 Test Item Value Reference Range Interpretation Comments UA Mucus (test code = UA Mucus) Few /LPF [facility] AND [id number] 20:18:00 Test Item Value Reference Range Interpretation Comments UA Urobilinogen (test code = UA <=1.0 mg/dL 0.1-1.0 Urobilinogen) [facility] AND [id number] 20:18:00 Test Item Value Reference Range Interpretation Comments UA Color (test code = Yellow *NA*(07/19/22 UA Color) 3:18 PM) [facility] AND [id number] 20:18:00 Test Item Value Reference Range Interpretation Comments UA Turbidity (test code = Clear (07/19/22 3:18 UA Turbidity) PM) [facility] AND [id number] 20:18:00 Test Item Value Reference Range Interpretation Comments UA Spec Grav (test code = UA Spec 1.026 1 Grav) [facility] AND [id number] 20:18:00 Test Item Value Reference Range Interpretation Comments UA pH (test code = UA pH) 5.0 1 5.0-8.0 [facility] AND [id number] 20:18:00 Test Item Value Reference Range Interpretation Comments UA Protein (test code = UA Negative mg/dL Protein) [facility] AND [id number] 20:18:00 Test Item Value Reference Range Interpretation Comments UA Glucose (test code = UA Negative mg/dL Glucose) [facility] AND [id number] 20:18:00 Test Item Value Reference Range Interpretation Comments UA Ketones (test code = UA Ketones) 20 mg/dL [facility] AND [id number] 20:18:00 Test Item Value Reference Range Interpretation Comments UA Bili (test code = Negative *NA*(07/19/22 UA Bili) 3:18 PM) [facility] AND [id number] 20:18:00 Test Item Value Reference Range Interpretation Comments UA Blood (test code = Negative (07/19/22 3:18 UA Blood) PM) [facility] AND [id number] 20:18:00 Test Item Value Reference Range Interpretation Comments UA Nitrite (test code Negative (07/19/22 3:18 = UA Nitrite) PM) [facility] AND [id number] 20:18:00 Test Item Value Reference Range Interpretation Comments UA Leuk Est (test Negative (07/19/22 3:18 code = UA Leuk Est) PM) [facility] AND [id number] 20:18:00 Test Item Value Reference Range Interpretation Comments UA Ascorbic Acid (test Negative code = UA Ascorbic 15*NA*(07/19/22 3:18 Acid) PM) [facility] AND [id number] 20:18:00 Test Item Value Reference Range Interpretation Comments UA Sq Epi (test code = UA Sq Occasional /LPF Epi) [facility] AND [id number] 20:18:00 Test Item Value Reference Range Interpretation Comments UA WBC (test code = 1 See_Comment [Automa elva message] The UA WBC) system which ge nerated this result transmit elva reference range : <=5. The reference range was not used to interpr et this result as janusz l/abnormal. [facility] AND [id number] 20:18:00 Test Item Value Reference Range Interpretation Comments UA RBC (test code = 1 See_Comment [Automa elva message] The UA RBC) system which ge nerated this result transmit elva reference range : <=2. The reference range was not used to interpr et this result as janusz l/abnormal. [facility] AND [id number] 20:18:00 Test Item Value Reference Range Interpretation Comments UA Mucus (test code = UA Mucus) Few /LPF [facility] AND [id number] 20:18:00 Test Item Value Reference Range Interpretation Comments UA Urobilinogen (test code = UA <=1.0 mg/dL 0.1-1.0 Urobilinogen) [facility] AND [id number] 20:18:00 Test Item Value Reference Range Interpretation Comments UA Color (test code = Yellow *NA*(07/19/22 UA Color) 3:18 PM) [facility] AND [id number] 20:18:00 Test Item Value Reference Range Interpretation Comments UA Turbidity (test code = Clear (07/19/22 3:18 UA Turbidity) PM) [facility] AND [id number] 20:18:00 Test Item Value Reference Range Interpretation Comments UA Spec Grav (test code = UA Spec 1.026 1 Grav) [facility] AND [id number] 20:18:00 Test Item Value Reference Range Interpretation Comments UA pH (test code = UA pH) 5.0 1 5.0-8.0 [facility] AND [id number] 20:18:00 Test Item Value Reference Range Interpretation Comments UA Protein (test code = UA Negative mg/dL Protein) [facility] AND [id number] 20:18:00 Test Item Value Reference Range Interpretation Comments UA Glucose (test code = UA Negative mg/dL Glucose) [facility] AND [id number] 20:18:00 Test Item Value Reference Range Interpretation Comments UA Ketones (test code = UA Ketones) 20 mg/dL [facility] AND [id number] 20:18:00 Test Item Value Reference Range Interpretation Comments UA Bili (test code = Negative *NA*(07/19/22 UA Bili) 3:18 PM) [facility] AND [id number] 20:18:00 Test Item Value Reference Range Interpretation Comments UA Blood (test code = Negative (07/19/22 3:18 UA Blood) PM) [facility] AND [id number] 20:18:00 Test Item Value Reference Range Interpretation Comments UA Nitrite (test code Negative (07/19/22 3:18 = UA Nitrite) PM) [facility] AND [id number] 20:18:00 Test Item Value Reference Range Interpretation Comments UA Leuk Est (test Negative (07/19/22 3:18 code = UA Leuk Est) PM) [facility] AND [id number] 20:18:00 Test Item Value Reference Range Interpretation Comments UA Ascorbic Acid (test Negative 7*NA*(07/19/22 code = UA Ascorbic 3:18 PM) Acid) [facility] AND [id number] 20:18:00 Test Item Value Reference Range Interpretation Comments UA Sq Epi (test code = UA Sq Occasional /LPF Epi) [facility] AND [id number] 20:18:00 Test Item Value Reference Range Interpretation Comments UA WBC (test code = 1 See_Comment [Automa elva message] The UA WBC) system which ge nerated this result transmit elva reference range : <=5. The reference range was not used to interpr et this result as janusz l/abnormal. [facility] [id number] 09:32:00 Test Item Value Reference Range Interpretation Comments Magnesium Lvl (test code = Magnesium 1.9 1.8-2.4 Lvl) [place] 137953-06-10 09:32:00 Test Item Value Reference Range Interpretation Comments Glucose Lvl (test code = Glucose Lvl) 102 70-99 [place] 137953-06-10 09:32:00 Test Item Value Reference Range Interpretation Comments BUN (test code = BUN) 24 7-22 [place] 137953-06-10 09:32:00 Test Item Value Reference Range Interpretation Comments Creatinine Lvl (test code = Creatinine 0.94 0.50-1.40 Lvl) [place] 137953-06-10 09:32:00 Test Item Value Reference Range Interpretation Comments Sodium Lvl (test code = Sodium Lvl) 137 135-145 [place] 137953-06-10 09:32:00 Test Item Value Reference Range Interpretation Comments Potassium Lvl (test code = Potassium 3.8 3.5-5.1 Lvl) [place] 137953-06-10 09:32:00 Test Item Value Reference Range Interpretation Comments Chloride Lvl (test code = Chloride Lvl) 107 95-109 [place] [address]-06-10 09:32:00 Test Item Value Reference Range Interpretation Comments CO2 (test code = CO2) 26 24-32 [place] [address]-06-10 09:32:00 Test Item Value Reference Range Interpretation Comments Calcium Lvl (test code = Calcium Lvl) 9.0 8.5-10.5 [place] [address]-06-10 09:32:00 Test Item Value Reference Range Interpretation Comments AGAP (test code = AGAP) 7.8 10.0-20.0 [place] [address]-06-10 09:32:00 Test Item Value Reference Range Interpretation Comments eGFR (test code = eGFR) 87 [place] [address]-06-10 09:32:00 Test Item Value Reference Range Interpretation Comments WBC (test code = WBC) 5.9 3.7-10.4 [place] [address]-06-10 09:32:00 Test Item Value Reference Range Interpretation Comments RBC (test code = RBC) 4.62 4.70-6.10 [place] [address]-06-10 09:32:00 Test Item Value Reference Range Interpretation Comments Hgb (test code = Hgb) 14.1 14.0-18.0 [place] [address]-06-10 09:32:00 Test Item Value Reference Range Interpretation Comments Hct (test code = Hct) 42.4 42.0-54.0 [place] [address]-06-10 09:32:00 Test Item Value Reference Range Interpretation Comments MCV (test code = MCV) 91.7 80.0-94.0 [place] [address]-06-10 09:32:00 Test Item Value Reference Range Interpretation Comments MCH (test code = MCH) 30.5 pg 27.0-31.0 [place] [address]-06-10 09:32:00 Test Item Value Reference Range Interpretation Comments MCHC (test code = MCHC) 33.2 32.0-36.0 [place] [address]-06-10 09:32:00 Test Item Value Reference Range Interpretation Comments RDW (test code = RDW) 13.5 11.5-14.5 [place] 858603-06-10 09:32:00 Test Item Value Reference Range Interpretation Comments Platelet (test code = Platelet) 111 133-450 [place] 858603-06-10 09:32:00 Test Item Value Reference Range Interpretation Comments MPV (test code = MPV) 9.3 7.4-10.4 [place] [address]-06-10 09:32:00 Test Item Value Reference Range Interpretation Comments PT (test code = PT) 14.9 s 12.0-14.7 [place] [address]-06-10 09:32:00 Test Item Value Reference Range Interpretation Comments INR (test code = INR) 1.17 1 0.87-1.13 [place] [address]-06-10 09:32:00 Test Item Value Reference Range Interpretation Comments PTT (test code = PTT) 36.6 s 22.9-35.8 [place] [address]-06-10 09:32:00 Test Item Value Reference Range Interpretation Comments Segs (test code = Segs) 81.7 45.0-75.0 [place] [address]-06-10 09:32:00 Test Item Value Reference Range Interpretation Comments Lymphocytes (test code = Lymphocytes) 8.3 20.0-40.0 [place] [address]-06-10 09:32:00 Test Item Value Reference Range Interpretation Comments Monocytes (test code = Monocytes) 8.8 2.0-12.0 [place] [address]-06-10 09:32:00 Test Item Value Reference Range Interpretation Comments Eosinophils (test code = 1.0 See_Comment [A utomated message] The Eosinophils) system which ge nerated this result tra nsmitted reference range : <=4.0. The reference r shen was not used to int erpret this result as normal/abnormal . [place] [address]-06-10 09:32:00 Test Item Value Reference Range Interpretation Comments Basophils (test code = 0.2 See_Comment [Aut omated message] The Basophils) system which ge nerated this result tra nsmitted reference range : <=1.0. The reference r shen was not used to int erpret this result as normal/abnormal . [facility]HfojxdwMAYEVXQOPK8153-55-13 09:32:00 Test Item Value Reference Range Interpretation Comments Neutrophils # (test code = Neutrophils 4.8 1.5-8.1 #) [facility] KingwoodDxcrbahKPCNOWJJEN5018-54-11 09:32:00 Test Item Value Reference Range Interpretation Comments Lymphocytes # (test code = Lymphocytes 0.5 1.0-5.5 #) [place] 858603-06-10 09:32:00 Test Item Value Reference Range Interpretation Comments Monocytes # (test code 0.5 See_Comment [Aut omated message] The = Monocytes #) system which generated this result tra nsmitted reference range : <=0.8. The reference r shen was not used to int erpret this result as normal/abnormal . [place] 858603-06-10 09:32:00 Test Item Value Reference Range Interpretation Comments Eosinophils # (test code 0.1 See_Comment [A utomated message] The = Eosinophils #) system whic h generated this result tra nsmitted reference range : <=0.5. The reference r shen was not used to int erpret this result as normal/abnormal . [facility] KingwoodCsxteoiVOMHOGYHJU2878-65-80 09:32:00 Test Item Value Reference Range Interpretation Comments WBC (test code = WBC) 5.9 3.7-10.4 [place] [address]-06-10 09:32:00 Test Item Value Reference Range Interpretation Comments RBC (test code = RBC) 4.62 4.70-6.10 [place] 858603-06-10 09:32:00 Test Item Value Reference Range Interpretation Comments Hgb (test code = Hgb) 14.1 14.0-18.0 [place] [address]-06-10 09:32:00 Test Item Value Reference Range Interpretation Comments Hct (test code = Hct) 42.4 42.0-54.0 [place] [address]-06-10 09:32:00 Test Item Value Reference Range Interpretation Comments MCV (test code = MCV) 91.7 80.0-94.0 [place] [address]-06-10 09:32:00 Test Item Value Reference Range Interpretation Comments MCH (test code = MCH) 30.5 pg 27.0-31.0 [place] [address]-06-10 09:32:00 Test Item Value Reference Range Interpretation Comments MCHC (test code = MCHC) 33.2 32.0-36.0 [facility] KingwoodCmysktmIITXUOJWHL0370-25-87 09:32:00 Test Item Value Reference Range Interpretation Comments RDW (test code = RDW) 13.5 11.5-14.5 [facility] KingwoodAppiijrBTEWXMFVQI8159-62-73 09:32:00 Test Item Value Reference Range Interpretation Comments Platelet (test code = Platelet) 111 133-450 [place] 858603-06-10 09:32:00 Test Item Value Reference Range Interpretation Comments MPV (test code = MPV) 9.3 7.4-10.4 [place] [address]-06-10 09:32:00 Test Item Value Reference Range Interpretation Comments PT (test code = PT) 14.9 s 12.0-14.7 [place] [address]-06-10 09:32:00 Test Item Value Reference Range Interpretation Comments INR (test code = INR) 1.17 1 0.87-1.13 [place] [address]-06-10 09:32:00 Test Item Value Reference Range Interpretation Comments PTT (test code = PTT) 36.6 s 22.9-35.8 [place] [address]-06-10 09:32:00 Test Item Value Reference Range Interpretation Comments Segs (test code = Segs) 81.7 45.0-75.0 [facility] KingwoodUqneeyoEPMURJBZJR7337-52-62 09:32:00 Test Item Value Reference Range Interpretation Comments Lymphocytes (test code = Lymphocytes) 8.3 20.0-40.0 [place] [address]-06-10 09:32:00 Test Item Value Reference Range Interpretation Comments Monocytes (test code = Monocytes) 8.8 2.0-12.0 [place] [address]-06-10 09:32:00 Test Item Value Reference Range Interpretation Comments Eosinophils (test code = 1.0 See_Comment [A utomated message] The Eosinophils) system which ge nerated this result tra nsmitted reference range : <=4.0. The reference r shen was not used to int erpret this result as normal/abnormal . [facility] KingwoodCvyumdfUAQROBTVJF4841-66-69 09:32:00 Test Item Value Reference Range Interpretation Comments Basophils (test code = 0.2 See_Comment [Aut omated message] The Basophils) system which ge nerated this result tra nsmitted reference range : <=1.0. The reference r shen was not used to int erpret this result as normal/abnormal . [place] [address]-06-10 09:32:00 Test Item Value Reference Range Interpretation Comments Neutrophils # (test code = Neutrophils 4.8 1.5-8.1 #) [place] [address]-06-10 09:32:00 Test Item Value Reference Range Interpretation Comments Lymphocytes # (test code = Lymphocytes 0.5 1.0-5.5 #) [place] [address]-06-10 09:32:00 Test Item Value Reference Range Interpretation Comments Monocytes # (test code 0.5 See_Comment [Aut omated message] The = Monocytes #) system which generated this result tra nsmitted reference range : <=0.8. The reference r shen was not used to int erpret this result as normal/abnormal . [place] [address]-06-10 09:32:00 Test Item Value Reference Range Interpretation Comments Eosinophils # (test code 0.1 See_Comment [A utomated message] The = Eosinophils #) system whic h generated this result tra nsmitted reference range : <=0.5. The reference r shen was not used to int erpret this result as normal/abnormal . [place] 137953-06-09 10:17:00 Test Item Value Reference Range Interpretation Comments Magnesium Lvl (test code = Magnesium 1.8 1.8-2.4 Lvl) [place] 137953-06-09 10:17:00 Test Item Value Reference Range Interpretation Comments Glucose Lvl (test code = Glucose Lvl) 93 70-99 [place] [address]-06-09 10:17:00 Test Item Value Reference Range Interpretation Comments BUN (test code = BUN) 21 7-22 [place] [address]-06-09 10:17:00 Test Item Value Reference Range Interpretation Comments Creatinine Lvl (test code = Creatinine 0.99 0.50-1.40 Lvl) [place] [address]-06-09 10:17:00 Test Item Value Reference Range Interpretation Comments Sodium Lvl (test code = Sodium Lvl) 138 135-145 [place] 137953-06-09 10:17:00 Test Item Value Reference Range Interpretation Comments Potassium Lvl (test code = Potassium 3.8 3.5-5.1 Lvl) [place] 137953-06-09 10:17:00 Test Item Value Reference Range Interpretation Comments Chloride Lvl (test code = Chloride Lvl) 106 95-109 [place] 137953-06-09 10:17:00 Test Item Value Reference Range Interpretation Comments CO2 (test code = CO2) 24 24-32 [place] 137953-06-09 10:17:00 Test Item Value Reference Range Interpretation Comments Calcium Lvl (test code = Calcium Lvl) 9.1 8.5-10.5 [place] 137953-06-09 10:17:00 Test Item Value Reference Range Interpretation Comments AGAP (test code = AGAP) 11.8 10.0-20.0 [place] 137953-06-09 10:17:00 Test Item Value Reference Range Interpretation Comments eGFR (test code = eGFR) 82 [place] 858603-06-09 10:17:00 Test Item Value Reference Range Interpretation Comments PT (test code = PT) 14.5 s 12.0-14.7 [place] [address]-06-09 10:17:00 Test Item Value Reference Range Interpretation Comments INR (test code = INR) 1.13 1 0.87-1.13 [place] [address]-06-09 10:17:00 Test Item Value Reference Range Interpretation Comments PTT (test code = PTT) 43.2 s 22.9-35.8 [place] [address]-06-09 10:17:00 Test Item Value Reference Range Interpretation Comments WBC (test code = WBC) 4.8 3.7-10.4 [place] [address]-06-09 10:17:00 Test Item Value Reference Range Interpretation Comments RBC (test code = RBC) 4.68 4.70-6.10 [place] [address]-06-09 10:17:00 Test Item Value Reference Range Interpretation Comments Hgb (test code = Hgb) 14.1 14.0-18.0 [place] [address]-06-09 10:17:00 Test Item Value Reference Range Interpretation Comments Hct (test code = Hct) 42.0 42.0-54.0 [facility]woodYqgjmvkQIOHCFJDJI2499-15-47 10:17:00 Test Item Value Reference Range Interpretation Comments MCV (test code = MCV) 89.9 80.0-94.0 [place] 858603-06-09 10:17:00 Test Item Value Reference Range Interpretation Comments MCH (test code = MCH) 30.2 pg 27.0-31.0 [place] 858603-06-09 10:17:00 Test Item Value Reference Range Interpretation Comments MCHC (test code = MCHC) 33.6 32.0-36.0 [place] 858603-06-09 10:17:00 Test Item Value Reference Range Interpretation Comments RDW (test code = RDW) 13.7 11.5-14.5 [place] 858603-06-09 10:17:00 Test Item Value Reference Range Interpretation Comments Platelet (test code = Platelet) 110 133-450 [facility] KingwoodAgappqrHUFGDVZQTU9405-40-88 10:17:00 Test Item Value Reference Range Interpretation Comments MPV (test code = MPV) 8.9 7.4-10.4 [facility] KingwoodKftxeqtQVURYHUKOW9388-42-63 10:17:00 Test Item Value Reference Range Interpretation Comments Segs (test code = Segs) 79.4 45.0-75.0 [facility] KingwoodJzzxirdUOPYERGOLL4600-96-37 10:17:00 Test Item Value Reference Range Interpretation Comments Lymphocytes (test code = Lymphocytes) 11.7 20.0-40.0 [place] 858603-06-09 10:17:00 Test Item Value Reference Range Interpretation Comments Monocytes (test code = Monocytes) 8.0 2.0-12.0 [place] [address]-06-09 10:17:00 Test Item Value Reference Range Interpretation Comments Eosinophils (test code = 0.6 See_Comment [A utomated message] The Eosinophils) system which ge nerated this result tra nsmitted reference range : <=4.0. The reference r shen was not used to int erpret this result as normal/abnormal . [facility] KingwoodNxgpxohWRTGJERMZP3664-14-43 10:17:00 Test Item Value Reference Range Interpretation Comments Basophils (test code = 0.3 See_Comment [Aut omated message] The Basophils) system which ge nerated this result tra nsmitted reference range : <=1.0. The reference r shen was not used to int erpret this result as normal/abnormal . [facility] KingwoodQbdcaqtXZYVKVLIOH0850-95-38 10:17:00 Test Item Value Reference Range Interpretation Comments Neutrophils # (test code = Neutrophils 3.8 1.5-8.1 #) [facility] KingwoodUmsiozkOOMIUCJPRI1615-33-01 10:17:00 Test Item Value Reference Range Interpretation Comments Lymphocytes # (test code = Lymphocytes 0.6 1.0-5.5 #) [facility] KingwoodFnqbrprTDBDGTRCSP0826-09-40 10:17:00 Test Item Value Reference Range Interpretation Comments Monocytes # (test code 0.4 See_Comment [Aut omated message] The = Monocytes #) system which generated this result tra nsmitted reference range : <=0.8. The reference r shen was not used to int erpret this result as normal/abnormal . [place] 19429023-06-08 22:35:10 Test Item Value Reference Range Interpretation [...] above. Burton Pearl MD On 07/16/2022 17:34:11; [id number] [facility]2023-06-08 13:31:00 Test Item Value Reference Range Interpretation Comments HS Troponin I (test code = HS Troponin 955 I) [facility]61[facility] 13:31:00 Test Item Value Reference Range Interpretation Comments HS Troponin I (test code = HS Troponin 955 I) [facility]ARD[facility] CPSSAHM4384-31-43 10:34:00 Test Item Value Reference Range Interpretation Comments BNP (test code = BNP) 177 [facility] HospitalPnrfsqnGOHAKHIKG6895-61-64 10:34:00 Test Item Value Reference Range Interpretation Comments BNP (test code = BNP) 177 [facility] HospitalRfekvqqWPMAHODOX5710-89-86 10:34:00 Test Item Value Reference Range Interpretation Comments Trig (test code = Trig) 91 [facility] HospitalCijijkwGRHMUAIDT1944-98-44 10:34:00 Test Item Value Reference Range Interpretation Comments Chol (test code = Chol) 134 [facility]CzlkftqKCILBPAUC8393-10-34 10:34:00 Test Item Value Reference Range Interpretation Comments HDL (test code = HDL) 63 [facility] HospitalPkglgmhLCZOHQROA7844-40-73 10:34:00 Test Item Value Reference Range Interpretation Comments Chol/HDL Ratio (test code = Chol/HDL 2.13 1 4.00-7.30 Ratio) [facility] HospitalYasuitrCKAXLPJPB7800-78-38 10:34:00 Test Item Value Reference Range Interpretation Comments LDL (Calculated) (test code = LDL 53 (Calculated)) [facility] LancasterDrtvjpbVOQUDUSZM6732-97-74 10:34:00 Test Item Value Reference Range Interpretation Comments VLDL (test code = VLDL) 18 1 [facility]ggwvUTUKHYBLT8573-45-25 10:34:00 Test Item Value Reference Range Interpretation Comments Hgb A1C (test code = Hgb A1C) 5.3 [facility] HospitalIxdcjfgYRBOYBMSEG8008-06-53 10:34:00 Test Item Value Reference Range Interpretation Comments WBC (test code = WBC) 4.0 3.7-10.4 [facility] HospitalEqblwwtIQJPUSOFVD7844-79-13 10:34:00 Test Item Value Reference Range Interpretation Comments RBC (test code = RBC) 4.60 4.70-6.10 [facility] HospitalKrljfbyTSWPAZBMMO8651-33-17 10:34:00 Test Item Value Reference Range Interpretation Comments Hgb (test code = Hgb) 14.3 14.0-18.0 [facility]6200[facility]-54 10:34:00 Test Item Value Reference Range Interpretation Comments Hct (test code = Hct) 42.1 42.0-54.0 [place] [address]-06-08 10:34:00 Test Item Value Reference Range Interpretation Comments MCV (test code = MCV) 91.6 80.0-94.0 [facility]zavcixXDTDUPCMAA1766-44-71 10:34:00 Test Item Value Reference Range Interpretation Comments MCH (test code = MCH) 31.0 pg 27.0-31.0 [place] 858603-06-08 10:34:00 Test Item Value Reference Range Interpretation Comments MCHC (test code = MCHC) 33.9 32.0-36.0 [place] 858603-06-08 10:34:00 Test Item Value Reference Range Interpretation Comments RDW (test code = RDW) 13.7 11.5-14.5 [place] [address]-06-08 10:34:00 Test Item Value Reference Range Interpretation Comments Platelet (test code = Platelet) 102 133-450 [facility]woodMrkerqrPXCHIYJSTC5504-24-68 10:34:00 Test Item Value Reference Range Interpretation Comments MPV (test code = MPV) 9.0 7.4-10.4 [facility]woodQqatjypDKSXLONRDC7339-57-62 10:34:00 Test Item Value Reference Range Interpretation Comments PT (test code = PT) 14.3 s 12.0-14.7 [place] [address]-06-08 10:34:00 Test Item Value Reference Range Interpretation Comments INR (test code = INR) 1.11 1 0.87-1.13 [place] [address]-06-08 10:34:00 Test Item Value Reference Range Interpretation Comments PTT (test code = PTT) 37.2 s 22.9-35.8 [place] [address]-06-08 10:34:00 Test Item Value Reference Range Interpretation Comments Segs (test code = Segs) 73.8 45.0-75.0 [place] [address]-06-08 10:34:00 Test Item Value Reference Range Interpretation Comments Lymphocytes (test code = Lymphocytes) 16.0 20.0-40.0 [place] [address]-06-08 10:34:00 Test Item Value Reference Range Interpretation Comments Monocytes (test code = Monocytes) 8.7 2.0-12.0 [facility]woodEveqnofAYFYIYXXEP0655-34-31 10:34:00 Test Item Value Reference Range Interpretation Comments Eosinophils (test code = 1.2 See_Comment [A utomated message] The Eosinophils) system which ge nerated this result tra nsmitted reference range : <=4.0. The reference r shen was not used to int erpret this result as normal/abnormal . [facility]woodAeezzbpVPUPKLOUJK5932-13-42 10:34:00 Test Item Value Reference Range Interpretation Comments Basophils (test code = 0.3 See_Comment [Aut omated message] The Basophils) system which ge nerated this result tra nsmitted reference range : <=1.0. The reference r shen was not used to int erpret this result as normal/abnormal . [facility]woodEvvxospDXFRATBUNP9320-49-60 10:34:00 Test Item Value Reference Range Interpretation Comments Neutrophils # (test code = Neutrophils 2.9 1.5-8.1 #) [facility]woodYytblgcDJMGLSIANF9841-29-35 10:34:00 Test Item Value Reference Range Interpretation Comments Lymphocytes # (test code = Lymphocytes 0.6 1.0-5.5 #) [facility]woodAarbgewTPADQSDQPE1833-68-62 10:34:00 Test Item Value Reference Range Interpretation Comments Monocytes # (test code 0.3 See_Comment [Aut omated message] The = Monocytes #) system which generated this result tra nsmitted reference range : <=0.8. The reference r shen was not used to int erpret this result as normal/abnormal . [facility]OqalcgzZUKZHX3393-51-52 10:34:00 Test Item Value Reference Range Interpretation Comments Trig (test code = Trig) 91 [facility]iscoPrgytvoTBWMBX5292-20-22 10:34:00 Test Item Value Reference Range Interpretation Comments Chol (test code = Chol) 134 [facility] FriscoJdpzxehVDOBOW6373-55-08 10:34:00 Test Item Value Reference Range Interpretation Comments HDL (test code = HDL) 63 [facility] FriscoIlvdppuYGXCCY0642-74-25 10:34:00 Test Item Value Reference Range Interpretation Comments Chol/HDL Ratio (test code = Chol/HDL 2.13 1 4.00-7.30 Ratio) [facility] FriscoSjvjgflPBWKZS3292-75-26 10:34:00 Test Item Value Reference Range Interpretation Comments LDL (Calculated) (test code = LDL 53 (Calculated)) [facility]68 10:34:00 Test Item Value Reference Range Interpretation Comments VLDL (test code = VLDL) 18 1 [facility]annSPECIAL MRWWYSIPF8879-19-50 10:34:00 Test Item Value Reference Range Interpretation Comments Hgb A1C (test code = Hgb A1C) 5.3 [facility] CnefehqNTBYXNYDC1433-81-45 05:40:00 Test Item Value Reference Range Interpretation Comments U Amph Scr (test code Negative *NA*(07/16/22 = U Amph Scr) 12:40 AM) [facility] RcntabcNVUJQVZUO7967-88-69 05:40:00 Test Item Value Reference Range Interpretation Comments U Stacey Scr (test code Negative *NA*(07/16/22 = U Stacey Scr) 12:40 AM) [facility] ShnjsvdZUHCGXHDF9472-09-68 05:40:00 Test Item Value Reference Range Interpretation Comments U Benzodiaz Scr (test Negative *NA*(07/16/22 code = U Benzodiaz Scr) 12:40 AM) [facility] OjnswtnMOROYXADR4751-29-49 05:40:00 Test Item Value Reference Range Interpretation Comments U Cocaine Scr (test Negative *NA*(07/16/22 code = U Cocaine Scr) 12:40 AM) [facility] QqqgaojXRJSYTRME8622-94-20 05:40:00 Test Item Value Reference Range Interpretation Comments U Cannab Scr (test Positive *ABN*(07/16/22 code = U Cannab Scr) 12:40 AM) [facility] OnxprcwXDAWQXVEB8421-28-99 05:40:00 Test Item Value Reference Range Interpretation Comments U Opiate Scr (test Negative *NA*(07/16/22 code = U Opiate Scr) 12:40 AM) [facility] SbwftwhAOMEHCHKG6453-77-47 05:40:00 Test Item Value Reference Range Interpretation Comments U Phencyclidine Scr (test Negative *NA*(07/16/22 code = U Phencyclidine 12:40 AM) Scr) [facility] FfgfuvsIELHNORFV7832-74-77 05:40:00 Test Item Value Reference Range Interpretation Comments UDS Note (test code = See Note 3(07/16/22 12:40 UDS Note) AM) [facility] YVLTUV3204-85-50 05:40:00 Test Item Value Reference Range Interpretation Comments U Amph Scr (test code Negative *NA*(07/16/22 = U Amph Scr) 12:40 AM) [facility] KIHURX2655-29-65 05:40:00 Test Item Value Reference Range Interpretation Comments U Stacey Scr (test code Negative *NA*(07/16/22 = U Stacey Scr) 12:40 AM) [facility] IDRZFM4554-51-41 05:40:00 Test Item Value Reference Range Interpretation Comments U Benzodiaz Scr (test Negative *NA*(07/16/22 code = U Benzodiaz Scr) 12:40 AM) [facility] XJDAIG9830-38-35 05:40:00 Test Item Value Reference Range Interpretation Comments U Cocaine Scr (test Negative *NA*(07/16/22 code = U Cocaine Scr) 12:40 AM) [facility] UEWXIF5081-36-17 05:40:00 Test Item Value Reference Range Interpretation Comments U Cannab Scr (test Positive *ABN*(07/16/22 code = U Cannab Scr) 12:40 AM) [facility] WNFOMU2215-95-63 05:40:00 Test Item Value Reference Range Interpretation Comments U Opiate Scr (test Negative *NA*(07/16/22 code = U Opiate Scr) 12:40 AM) [facility] YKPPPC6125-85-78 05:40:00 Test Item Value Reference Range Interpretation Comments U Phencyclidine Scr (test Negative *NA*(07/16/22 code = U Phencyclidine 12:40 AM) Scr) [facility] BBHOPT7833-03-57 05:40:00 Test Item Value Reference Range Interpretation Comments UDS Note (test code = See Note 5(07/16/22 12:40 UDS Note) AM) [facility] HospitalCahrhmqNFRPYDCJSY7918-04-16 05:38:00 Test Item Value Reference Range Interpretation Comments Coronavirus (COVID-19) Not Detected DIVYA (test code = 17(07/16/22 12:38 AM) Coronavirus (COVID-19) DIVYA) [facility]annCARDIAC USCUOLD8145-41-25 03:58:00 Test Item Value Reference Range Interpretation Comments HS Troponin I (test code = HS Troponin 986 I) [facility] G6830-26-25 00:20:13 Test Item Value Reference Range Interpretation Comments TROPONIN I (test code = 0.057 ng/mL <=0.034 H [id number]) CLAUDIA (test code = CLAUDIA) Reference (Normal) [...] biotin. Lab Interpretation Abnormal (test code = 57450-5) [facility]2022-[facility]-13 00:01:50 Test Item Value Reference Range Interpretation Comments APTT Patient (test code 42 See_Comment H [Au tomated message] = 3173-2) The system [employer] generated this result transmitted ref erence range: 26 - 36 Seconds. The reference range was not used to int erpret this result as normal/abnormal . Lab Interpretation (test Abnormal code = 63484-9) [facility]TR[facility] J9924-04-50 16:15:56 Test Item Value Reference Range Interpretation Comments TROPONIN I (test code = 0.087 ng/mL <=0.034 H [id number]) CLAUDIA (test code = CLAUDAI) Reference (Normal) Range (defined by the 99th [...] biotin. Lab Interpretation Abnormal (test code = 24013-2) [facility]2022-07-12 13:46:54 Test Item Value Reference Range Interpretation Comments POCT GLU (test code = 6381750052) 100 mg/dL 70-110 Lab Interpretation (test code = Normal 86324-4) [facility] WestTroponin [id number] 03:20:51 Test Item Value Reference Range Interpretation Comments TROPONIN I (test code = 0.081 ng/mL <=0.034 H [id number]) CLAUDIA (test code = CLAUDIA) Reference (Normal) [...] biotin. Lab Interpretation Abnormal (test code = 24986-0) [facility] WestProthrombin Time / [id number] 03:04:49 Test Item Value Reference Range Interpretation Comments PROTIME PATIENT (test 12.0 See_Comment [Auto mated message] code = 5964-2) The system [employer] generated this result transmitted ref erence range: 10.1 - 1 2.6 Seconds. The re ference range was not u sed to interpret this result as normal/abnor mal. INR (test code = 6301-6) 1.1 Nor mal INR <1.1; Warfarin Therap eutic range 2.0 to 3. 0 or 2.5 to 3.5, dep ending upon the indica tions. Lab Interpretation (test Normal code = 88520-7) [facility]PTT2023-06-[facility] 03:04:49 Test Item Value Reference Range Interpretation Comments APTT Patient (test code = 34 See_Comment [ Automated message] 3173-2) The system [employer] generated this result transmitted ref erence range: 26 - 36 Seconds. The re ference range was not u sed to interpret this result as normal/abnor mal. Lab Interpretation (test Normal code = 68679-3) [facility] WestThyroid Stimulating Hormone (TSH)2022-07-12 01:31:26 Test Item Value Reference Range Interpretation Comments TSH (test code = 1.59 See_Comment Biotin has been [id number]) reported to cau se a negative bias, interpret resul ts relative to pat carine's use of biotin. [Automated mess age] The system [employer] generated this result transmitted ref erence range: 0.45 - 4 .70 mIU/L. The refe rence range was not u sed to interpret this result as normal/abnor mal. Lab Interpretation (test Normal code = 03710-2) [facility] WestGLYCOSYLATED HEMOGLOBIN (A1C)2022-07-12 01:17:12 Test Item Value Reference Range Interpretation Comments HGB A1C (test code = 5.3 % 4.0-5.7 4548-4) CLAUDIA (test code = CLAUDIA) Reference RangesNormal: <5.7%Prediabetes: 5.7 - 6.4%Diabetes: > 6.5% Lab Interpretation (test Normal code = 43719-0) [facility] [id number] 23:31:20 Test Item Value Reference Range Interpretation Comments TROPONIN I (test code = 0.086 ng/mL <=0.034 H [id number]) CLAUDIA (test code = CLAUDIA) Reference (Normal) [...] biotin. Lab Interpretation Abnormal (test code = 31620-0) [facility] [id number] 20:07:32 Test Item Value Reference Range Interpretation Comments TROPONIN I (test code = 0.072 ng/mL <=0.034 H 6366153755) CLUADIA (test code = CLAUDIA) Reference (Normal) Range [...] biotin. Lab Interpretation Abnormal (test code = 18505-0) [facility]. METABOLIC PANEL (68220)2022-07-11 19:57:13 Test Item Value Reference Range Interpretation Comments NA (test code = 139 mmol/L 135-145 5998940834) K (test code = 4.2 mmol/L 3.5-5.0 7154800584) CL (test code = 102 mmol/L 98-108 4334166044) CO2 TOTAL (test code = 28 mmol/L 23-31 0245286522) AGAP (test code = 9 2-16 2731384951) BUN (test code = 23 mg/dL 7-23 4650358340) GLUCOSE (test code = 104 mg/dL 70-110 8235405269) CREATININE (test code = 0.99 mg/dL 0.60-1.25 4519532154) TOTAL BILI (test code = 0.9 mg/dL 0.1-1.7 1205060250) CALCIUM (test code = 9.0 mg/dL 8.6-10.6 1098980178) T PROTEIN (test code = 6.7 g/dL 6.3-8.2 2559631098) ALBUMIN (test code = 4.3 g/dL 3.5-5.0 8738345214) ALK PHOS (test code = 58 U/L 34-122 2828661670) ALTv (test code = 22 U/L 5-50 1742-6) AST(SGOT) (test code = 43 U/L 13-40 H 6120920459) eGFR (test code = 74.5 mL/min/1.73m2 1738625091) CLAUDIA (test code = CLAUDIA) Association of [...] tests). Lab Interpretation Abnormal (test code = 85125-5) [facility] WestLIPASE2023-06-03 19:57:13 Test Item Value Reference Range Interpretation Comments LIPASE (test code = 0314565915) 91 U/L 0-220 Lab Interpretation (test code = Normal 27428-0) [facility] WestCB WITH [id number] 19:42:51 Test Item Value Reference Range Interpretation Comments WBC (test code = 4.08 See_Comment L [Automated 7989-2) message] The sy stem which generated this result transmitted reference range : 4.20 - 10.70 10*3/?L. The reference range was not used to interpret this result as normal/abnormal . RBC (test code = 4.75 See_Comment [Automated 039-8) message] The sy stem which generated this [...] RDW-SD (test code = 41.6 fL 38.5-51.6 12404-4) RDW-CV (test code = 12.7 % 12.1-15.4 788-0) PLT (test code = 106 See_Comment L [Automated 777-3) message] The sy stem which generated this result transmitted reference range : 150 - 328 10*3/ ?L. The reference r shen was not used to interpret this result as normal/abnormal . MPV (test code = 10.9 fL 9.8-13.0 31168-3) NRBC/100 WBC (test 0.0 See_Comment [Automat ed code = 1951322013) message] The system which generated this result transmitted reference range : 0.0 - 10.0 /100 WBCs. The refer ence range was not u sed to interpret th is result as normal/abnormal . NRBC x10^3 (test code See_Comment [Auto mated = 3887563469) message] The s ystem which generated this result transmitted reference range : 10*3/?L. The reference range was not used to interpret this result as normal/abnormal . GRAN MAT (NEUT) % 74.1 % (test code = 770-8) IMM GRAN % (test code 0.20 % = 8920052183) LYMPH % (test code = 15.4 % 736-9) MONO % (test code = 9.1 % 5905-5) EOS % (test code = 1.0 % 713-8) BASO % (test code = 0.2 % 706-2) GRAN MAT x10^3(ANC) 3.02 10*3/uL 1.99-6.95 (test code = 7613892767) IMM GRAN x10^3 (test 0.00-0.06 code = 4883390154) LYMPH x10^3 (test code 0.63 10*3/uL 1.09-3.23 L = 731-0) MONO x10^3 (test code 0.37 10*3/uL 0.36-1.02 = 742-7) EOS x10^3 (test code = 0.04 10*3/uL 0.06-0.53 L 711-2) BASO x10^3 (test code 0.01-0.09 = 704-7) Lab Interpretation Abnormal (test code = 83442-2) [facility] URINALYSIS W SPECIFIC [id number] 16:32:00 Test Item Value Reference Range Interpretation Comments POCT U SP GRAV (test code = 1.015 mg/dl 1.005-1.025 3255) POCT PH U (test code = 3254) 5 mg/dl 5-8 POCT U LEUK EST (test code = Negative Negative - Negative 3) POCT U NIT (test code = 3262) Negative Negative - Negative POCT U PROT (test code = Negative Negative - Negative 9) POCT U GLU (test code = 3256) [...] 3267) Lab Interpretation (test code Normal = 03702-2) [facility] URINALYSIS W SPECIFIC [id number] 16:32:00 Test Item Value Reference Range Interpretation [...] 3267) Lab Interpretation (test code Normal = 08194-9) [facility] GLUCOSE (AUTOMATED)2022-05-02 13:41:42 Test Item Value Reference Range Interpretation Comments POCT GLU (test code = 8358865585) 96 mg/dL 70-110 Lab Interpretation (test code = Normal 84225-1) [facility] GLUCOSE (AUTOMATED)2022-05-02 13:41:42 Test Item Value Reference Range Interpretation Comments POCT GLU (test code = 1665450354) 96 mg/dL 70-110 Lab Interpretation (test code = Normal 73494-7) [facility] GLUCOSE (AUTOMATED)2022-05-02 13:41:42 Test Item Value Reference Range Interpretation Comments POCT GLU (test code = 2537574738) 96 mg/dL 70-110 Lab Interpretation (test code = Normal 76865-5) [facility]PT[facility] 01:04:23 Test Item Value Reference Range Interpretation [...] the patient's abnormal labs.2. Limitations as above. [facility] WITH [id number] 05:21:51 Test Item Value Reference Range Interpretation Comments WBC (test code = See_Comment L [Automated 3390-2) message] The sy stem which generated this result transmitted reference range : 4.20 - 10.70 10*3/?L. The reference range was not used to interpret this result as normal/abnormal . RBC (test code = See_Comment [Automated 029-8) message] The sy stem which generated this [...] RDW-SD (test code = 45.1 fL 38.5-51.6 66954-9) RDW-CV (test code = 13.3 % 12.1-15.4 788-0) PLT (test code = See_Comment L [Automated 477-3) message] The sy stem which generated this result transmitted reference range : 150 - 328 10*3/ ?L. The reference r shen was not used to interpret this result as normal/abnormal . MPV (test code = 12.4 fL 9.8-13 13491-2) NRBC/100 WBC (test See_Comment [Automat ed code = 5953787204) message] The system which generated this result transmitted reference range : 0.0 - 10.0 /100 WBCs. The refer ence range was not u sed to interpret th is result as normal/abnormal . NRBC x10^3 (test code See_Comment [Auto mated = 3555807498) message] The s ystem which generated this result transmitted reference range : 10*3/?L. The reference range was not used to interpret this result as normal/abnormal . GRAN MAT (NEUT) % 72.7 % (test code = 770-8) IMM GRAN % (test code 0.30 % = 2724300697) LYMPH % (test code = 17.5 % 736-9) MONO % (test code = 8.2 % 5905-5) EOS % (test code = 1.0 % 713-8) BASO % (test code = 0.3 % 706-2) GRAN MAT x10^3(ANC) 2.83 10*3/uL 1.99-6.95 (test code = 2333751178) IMM GRAN x10^3 (test 0-0.06 code = 3855795866) LYMPH x10^3 (test code 0.68 10*3/uL 1.09-3.23 L = 731-0) MONO x10^3 (test code 0.32 10*3/uL 0.36-1.02 L = 742-7) EOS x10^3 (test code = 0.04 10*3/uL 0.06-0.53 L 711-2) BASO x10^3 (test code 0.01-0.09 = 704-7) Lab Interpretation Abnormal (test code = 05263-4) [facility] WITH [id number] 05:21:51 Test Item Value Reference Range Interpretation [...] RDW-SD (test code = 45.1 fL 38.5-51.6 98066-1) RDW-CV (test code = 13.3 % 12.1-15.4 788-0) PLT (test code = See_Comment L [Automated 777-3) message] The sy stem which generated this result transmitted reference range : 150 - 328 10*3/ ?L. The reference r shen was not used to interpret this result as normal/abnormal . MPV (test code = 12.4 fL 9.8-13 82531-6) NRBC/100 WBC (test See_Comment [Automat ed code = 6527139501) message] The system which generated this result transmitted reference range : 0.0 - 10.0 /100 WBCs. The refer ence range was not u sed to interpret th is result as normal/abnormal . NRBC x10^3 (test code See_Comment [Auto mated = 0824515577) message] The s ystem which generated this result transmitted reference range : 10*3/?L. The reference range was not used to interpret this result as normal/abnormal . GRAN MAT (NEUT) % 72.7 % (test code = 770-8) IMM GRAN % (test code 0.30 % = 8191093783) LYMPH % (test code = 17.5 % 736-9) MONO % (test code = 8.2 % 5905-5) EOS % (test code = 1.0 % 713-8) BASO % (test code = 0.3 % 706-2) GRAN MAT x10^3(ANC) 2.83 10*3/uL 1.99-6.95 (test code = 8354198408) IMM GRAN x10^3 (test 0-0.06 code = 9155774578) LYMPH x10^3 (test code 0.68 10*3/uL 1.09-3.23 L = 731-0) MONO x10^3 (test code 0.32 10*3/uL 0.36-1.02 L = 742-7) EOS x10^3 (test code = 0.04 10*3/uL 0.06-0.53 L 711-2) BASO x10^3 (test code 0.01-0.09 = 704-7) Lab Interpretation Abnormal (test code = 82231-9) [facility] [id number] 11:45:00 Test Item Value Reference Range Interpretation Comments POC-GLUCOSE METER 138 mg/dL 70-110 H TESTED AT [place] [address] ([facility]) (test code = BR[facility]SA Estrada [facility] 1538) [address] POCT-GLUCOSE [id number] 06:18:00 Test Item Value Reference Range Interpretation Comments POC-GLUCOSE METER 127 mg/dL 70-110 H TESTED AT [place] [address] ([facility]) (test code = BRISSA Estrada [facility] 1538) [address] POCT-GLUCOSE [id number] 00:19:00 Test Item Value Reference Range Interpretation Comments POC-GLUCOSE METER 124 mg/dL 70-110 H TESTED AT [place] [address] ([facility]) (test code = BRISSA Estrada [facility] 1538) [address] POCT-GLUCOSE [id number] 15:26:00 Test Item Value Reference Range Interpretation Comments POC-GLUCOSE METER 113 mg/dL 70-110 H TESTED AT [place] [address] ([facility]) (test code = BRISSA Estr[facility] 1538) [address] POCT-GLUCOSE [id number] 10:30:00 Test Item Value Reference Range Interpretation Comments POC-GLUCOSE METER 134 mg/dL 70-110 H TESTED AT [place] [address] ([facility]) (test code = [place] 1538) [address] POCT-GLUCOSE [id number] 06:25:00 Test Item Value Reference Range Interpretation Comments POC-GLUCOSE METER 120 mg/dL 70-110 H TESTED AT [place] [address] ([facility]) (test code = [place] 1538) [address] POCT-GLUCOSE [id number] 01:12:00 Test Item Value Reference Range Interpretation Comments POC-GLUCOSE METER 122 mg/dL 70-110 H TESTED AT [place] [address] ([facility]) (test code = BRISSA [place] 1538) [address] POCT-GLUCOSE [id number] 18:32:00 Test Item Value Reference Range Interpretation Comments POC-GLUCOSE METER 129 mg/dL 70-110 H TESTED AT [place] [address] ([facility]) (test code = BRISSA [place]strada [place] 1538) [address] POCT-GLUCOSE [id number] 12:10:00 Test Item Value Reference Range Interpretation Comments POC-GLUCOSE METER 125 mg/dL 70-110 H TESTED AT [place] [address] ([facility]) (test code = BRISSA Estrada [place] 1538) [address] POCT-GLUCOSE [id number] 05:50:00 Test Item Value Reference Range Interpretation Comments POC-GLUCOSE METER 115 mg/dL 70-110 H TESTED AT [place] [address] ([facility]) (test code = BRISSA Estr[place] 1538) [address] POCT-GLUCOSE [id number] 23:18:00 Test Item Value Reference Range Interpretation Comments POC-GLUCOSE METER 117 mg/dL 70-110 H TESTED AT [place] [address] ([facility]) (test code = BRISSA Estrada [place] 1538) [address] POCT-GLUCOSE [id number] 16:33:00 Test Item Value Reference Range Interpretation Comments POC-GLUCOSE METER 124 mg/dL 70-110 H TESTED AT [place] [address] ([facility]) (test code = BRISSA Estrada [place] 1538) [address] POCT-GLUCOSE [id number] 11:48:00 Test Item Value Reference Range Interpretation Comments POC-GLUCOSE METER 147 mg/dL 70-110 H TESTED AT [place] [address] ([facility]) (test code = BRISSA [place]strada [place] 1538) [address] BASIC METABOLIC [id number] 07:27:00 Test Item Value Reference Range Interpretation [...] PATIEN TS. CBC W/PLT COUNT & AUTO [id number] 06:26:00 Test Item Value Reference Range Interpretation [...] PERCENT (BEAKER) (test code = 2801) POCT-GLUCOSE [id number] 06:10:00 Test Item Value Reference Range Interpretation Comments POC-GLUCOSE METER 126 mg/dL 70-110 H TESTED AT [place] [address] ([facility]) (test code = [facility] 1538) [address] POCT-GLUCOSE [id number] 23:53:00 Test Item Value Reference Range Interpretation Comments POC-GLUCOSE METER 126 mg/dL 70-110 H TESTED AT [place] [address] ([facility]) (test code = [facility] 1538) [address]752 POCT-GLUCOSE [id number] 16:56:00 Test Item Value Reference Range Interpretation Comments POC-GLUCOSE METER 92 mg/dL 70-110 TESTED AT [place] [address] ([facility]) (test code = [facility] [id number] 1538) POCT-GLUCOSE [id number] 11:37:00 Test Item Value Reference Range Interpretation Comments POC-GLUCOSE METER 129 mg/dL 70-110 H TESTED AT [place] [address] ([facility]) (test code = BRISSA Estrada [place] 1538) 76885 POCT-GLUCOSE [id number] 06:50:00 Test Item Value Reference Range Interpretation Comments POC-GLUCOSE METER 137 mg/dL 70-110 H TESTED AT [place] [address] ([facility]) (test code = BRISSA Estrada [place] 1538) 71252 POCT-GLUCOSE [id number] 00:48:00 Test Item Value Reference Range Interpretation Comments POC-GLUCOSE METER 120 mg/dL 70-110 H TESTED AT [place] [address] ([facility]) (test code = BRISSA Estrada [place] 1538) 55560 POCT-GLUCOSE [id number] 17:06:00 Test Item Value Reference Range Interpretation Comments POC-GLUCOSE METER 114 mg/dL 70-110 H TESTED AT [place] [address] ([facility]) (test code = BRISSA Estrada [place] 1538) 14847 POCT-GLUCOSE [id number] 11:30:00 Test Item Value Reference Range Interpretation Comments POC-GLUCOSE METER 122 mg/dL 70-110 H TESTED AT [place] [address] ([facility]) (test code = BRISSA Estrada [place] 1538) 45247 POCT-GLUCOSE [id number] 06:30:00 Test Item Value Reference Range Interpretation Comments POC-GLUCOSE METER 109 mg/dL 70-110 TESTED AT [place] [address] ([facility]) (test code = BRISSA Estrada [place] 1538) 23380 POCT-GLUCOSE [id number] 02:39:00 Test Item Value Reference Range Interpretation Comments POC-GLUCOSE METER 122 mg/dL 70-110 H TESTED AT [place] [address] ([facility]) (test code = BRISSA Estrada [place] 1538) 38362 POCT-GLUCOSE [id number] 16:32:00 Test Item Value Reference Range Interpretation Comments POC-GLUCOSE METER 119 mg/dL 70-110 H TESTED AT [place] [address] ([facility]) (test code = BRISSA Estrada [place] 1538) 94307 POCT-GLUCOSE [id number] 06:25:00 Test Item Value Reference Range Interpretation Comments POC-GLUCOSE METER 110 mg/dL 70-110 TESTED AT [place] [address] ([facility]) (test code = BRISSA Estrada [place] 1538) 80637 POCT-GLUCOSE [id number] 00:07:00 Test Item Value Reference Range Interpretation Comments POC-GLUCOSE METER 132 mg/dL 70-110 H TESTED AT [place] [address] ([facility]) (test code = BRISSA [place] 1538) 62418 POCT-GLUCOSE [id number] 17:25:00 Test Item Value Reference Range Interpretation Comments POC-GLUCOSE METER 147 mg/dL 70-110 H TESTED AT [place] [address] ([facility]) (test code = BRISSA Estrada [facility] 1538) 42318 POCT-GLUCOSE [id number] 12:26:00 Test Item Value Reference Range Interpretation Comments POC-GLUCOSE METER 188 mg/dL 70-110 H TESTED AT [place] [address] ([facility]) (test code = BRISSA Estrada [facility] 1538) 94471 POCT-GLUCOSE [id number] 06:28:00 Test Item Value Reference Range Interpretation Comments POC-GLUCOSE METER 107 mg/dL 70-110 TESTED AT [place] [address] ([facility]) (test code = BRISSA Estrada [facility] 1538) 31235 POCT-GLUCOSE [id number] 23:53:00 Test Item Value Reference Range Interpretation Comments POC-GLUCOSE METER 143 mg/dL 70-110 H TESTED AT [place] [address] ([facility]) (test code = BRISSA Estrada [facility] 1538) 04373 POCT-GLUCOSE [id number] 17:13:00 Test Item Value Reference Range Interpretation Comments POC-GLUCOSE METER 180 mg/dL 70-110 H TESTED AT [place] [address] ([facility]) (test code = BRISSA Estrada [facility] 1538) [address]95 FL, ESOPH, SWALLOW FUNCTION, WITH CINE OR [id number] 15:39:00Reason for exam:->dysphagiaFINAL REPORT Modified barium swallow Reason for examination: dysphagia TECHNIQUE: Fluoroscopy provided. RADIATION DOSE: Fluoroscopy Time: 1.17 min Dose (Kerma) Area Product: [id number] Air Kerma (AK) value has been reviewed. It is below the limits set by the Radiation Protocol Committee (RPC) committee. DISCUSSION: Initial product management consultant view of the chest shows no acute [...] detailed description and recommendations. Signed: Samaria Platt MDReport Verified Date/Time: 10/06/2018 15:39:34 Reading Location: [facility] Room [address] [place] [address] POCT-GLUCOSE [id number] 05:51:00 Test Item Value Reference Range Interpretation Comments POC-GLUCOSE METER 111 mg/dL 70-110 H TESTED AT [place] [address] ([facility]) (test code = BRISSA Estrada [facility] 1538) 65677 POCT-GLUCOSE [id number] 23:49:00 Test Item Value Reference Range Interpretation Comments POC-GLUCOSE METER 169 mg/dL 70-110 H TESTED AT [place] [address] ([facility]) (test code = BRISSA Estrada [facility] 1538) 44513 POCT-GLUCOSE [id number] 17:11:00 Test Item Value Reference Range Interpretation Comments POC-GLUCOSE METER 182 mg/dL 70-110 H TESTED AT [place] [address] ([facility]) (test code = BRISSA Estrada [place] 1538) 47549 POCT-GLUCOSE [id number] 12:14:00 Test Item Value Reference Range Interpretation Comments POC-GLUCOSE METER 162 mg/dL 70-110 H TESTED AT [place] [address] ([facility]) (test code = BRISSA Estrada [place] 1538) 50867 POCT-GLUCOSE [id number] 06:32:00 Test Item Value Reference Range Interpretation Comments POC-GLUCOSE METER 122 mg/dL 70-110 H TESTED AT [place] [id number] ([facility]) (test code = MANISHAR Sean [place] 1538) 10816 POCT-GLUCOSE [id number] 23:30:00 Test Item Value Reference Range Interpretation Comments POC-GLUCOSE METER 133 mg/dL 70-110 H TESTED AT [place] [id number] ([facility]) (test code = MANISHAR Sean [place] 1538) 67534 POCT-GLUCOSE [id number] 16:43:00 Test Item Value Reference Range Interpretation Comments POC-GLUCOSE METER 180 mg/dL 70-110 H TESTED AT [place] [address] ([facility] (test code = BRISSA [place] 1538) 55495 POCT-GLUCOSE [id number] 12:06:00 Test Item Value Reference Range Interpretation Comments POC-GLUCOSE METER 185 mg/dL 70-110 H TESTED AT [place] [address] ([facility] (test code = BRISSA Estrada [place] 1538) 60417 POCT-GLUCOSE [id number] 06:37:00 Test Item Value Reference Range Interpretation Comments POC-GLUCOSE METER 128 mg/dL 70-110 H TESTED AT [place] [address] ([facility]) (test code = BRISSA Estrada [place] 1538) 53055 POCT-GLUCOSE [id number] 00:37:00 Test Item Value Reference Range Interpretation Comments POC-GLUCOSE METER 138 mg/dL 70-110 H TESTED AT [place] [address] ([facility]) (test code = BRISSA Estrada [place] 1538) 73092 POCT-GLUCOSE [id number] 16:37:00 Test Item Value Reference Range Interpretation Comments POC-GLUCOSE METER 166 mg/dL 70-110 H TESTED AT [place] [address] ([facility]) (test code = BRISSA Estrada [place] 1538) 71322 POCT-GLUCOSE [id number] 11:53:00 Test Item Value Reference Range Interpretation Comments POC-GLUCOSE METER 182 mg/dL 70-110 H TESTED AT [place] [address] ([facility]) (test code = BRISSA Estrada [place] 1538) 70640 POCT-GLUCOSE [id number] 06:23:00 Test Item Value Reference Range Interpretation Comments POC-GLUCOSE METER 109 mg/dL 70-110 TESTED AT [place] [address] ([facility] (test code = BRISSA Estrada [place] 1538) 73488 BASIC METABOLIC [id number] 05:27:00 Test Item Value Reference Range Interpretation [...] PATIEN TS. CBC W/PLT COUNT & AUTO [id number] 04:54:00 Test Item Value Reference Range Interpretation [...] PERCENT (BEAKER) (test code = 2801) POCT-GLUCOSE [id number] 01:27:00 Test Item Value Reference Range Interpretation Comments POC-GLUCOSE METER 122 mg/dL 70-110 H TESTED AT [place] [address] ([facility]) (test code = BRISSA Estrada [facility] 1538) 64534 POCT-GLUCOSE [id number] 16:45:00 Test Item Value Reference Range Interpretation Comments POC-GLUCOSE METER 197 mg/dL 70-110 H TESTED AT [place] [address] ([facility]) (test code = BRISSA Estrada [facility] 1538) 31097 POCT-GLUCOSE [id number] 12:19:00 Test Item Value Reference Range Interpretation Comments POC-GLUCOSE METER 186 mg/dL 70-110 H TESTED AT [place] [address] ([facility]) (test code = BRISSA Estrada [facility] 1538) 81234 POCT-GLUCOSE [id number] 06:06:00 Test Item Value Reference Range Interpretation Comments POC-GLUCOSE METER 123 mg/dL 70-110 H TESTED AT [place] [id number] ([facility]) (test code = BRISSA Estrada [place] 1538) 93114 POCT-GLUCOSE [id number] 00:23:00 Test Item Value Reference Range Interpretation Comments POC-GLUCOSE METER 111 mg/dL 70-110 H TESTED AT [place] [id number] ([facility]) (test code = BRISSA Estrada [place] 1538) 84812 POCT-GLUCOSE [id number] 16:33:00 Test Item Value Reference Range Interpretation Comments POC-GLUCOSE METER 220 mg/dL 70-110 H TESTED AT [place] [address] ([facility]) (test code = BRISSA Estrada [facility] 1538) 45622 POCT-GLUCOSE [id number] 12:05:00 Test Item Value Reference Range Interpretation Comments POC-GLUCOSE METER 197 mg/dL 70-110 H TESTED AT [place] [address] ([facility]) (test code = BRISSA Estrada [facility] 1538) 54328 URIC [id number] 08:32:00 Test Item Value Reference Range Interpretation Comments URIC ACID ([facility] (test code = 9.8 mg/dL 2.6-7.2 H 773) POCT-GLUCOSE [id number] 06:39:00 Test Item Value Reference Range Interpretation Comments POC-GLUCOSE METER 140 mg/dL 70-110 H TESTED AT [place] [address] ([facility]) (test code = [facility] Sean [facility] 1538) 72066 POCT-GLUCOSE [id number] 23:49:00 Test Item Value Reference Range Interpretation Comments POC-GLUCOSE METER 162 mg/dL 70-110 H TESTED AT [place] [address] ([facility]) (test code = [facility] 1538) 45960 POCT-GLUCOSE [id number] 16:38:00 Test Item Value Reference Range Interpretation Comments POC-GLUCOSE METER 196 mg/dL 70-110 H TESTED AT [place] [address] ([facility]) (test code = MANISHAR Sean [facility] 1538) 65576 POCT-GLUCOSE [id number] 12:21:00 Test Item Value Reference Range Interpretation Comments POC-GLUCOSE METER 255 mg/dL 70-110 H TESTED AT [place] [address] ([facility]) (test code = [facility] Sean [facility] 1538) 33820 BASIC METABOLIC [id number] 06:27:00 Test Item Value Reference Range Interpretation Comments SODIUM (BEAKER) 135 meq/L 136-145 L (test code = 381) POTASSIUM (BEAKER) 4.4 meq/L 3.5-5.1 Specimen slightly (test code = 379) hemolyzed CHLORIDE (BEAKER) 99 meq/L 98-107 (test code = 382) CO2 (BEAKER) (test 31 meq/L 22-29 H code = 355) BLOOD UREA NITROGEN 59 mg/dL 7-21 H (BEAKER) (test code = 354) CREATININE (AKER) 1.19 mg/dL 0.57-1.25 Specimen slightly (test code = 358) hemolyzed GLUCOSE RANDOM 114 mg/dL 70-105 H ([facility]) (test code = 652) CALCIUM (BEAKER) 8.3 mg/dL 8.4-10.2 L (test code = 697) EGFR ([facility]) (test 61 mL/min/1.73 ESTIMA ELVA GFR IS code = 1092) sq m NOT ACCURATE CREATININE CLEARANCE IN PREDICTING GLOMERULAR FILTRATION RATE . ESTIMATED GFR I S NOT APPLICABLE FOR DIALYSIS PATIEN TS. POCT-GLUCOSE [id number] 05:57:00 Test Item Value Reference Range Interpretation Comments POC-GLUCOSE METER 131 mg/dL 70-110 H TESTED AT [place] [address] ([facility]) (test code = [facility] 1538) 15000 POCT-GLUCOSE [id number] 00:03:00 Test Item Value Reference Range Interpretation Comments POC-GLUCOSE METER 151 mg/dL 70-110 H TESTED AT [place] [address] ([facility]) (test code = [facility] 1538) 58169 POCT-GLUCOSE [id number] 17:07:00 Test Item Value Reference Range Interpretation Comments POC-GLUCOSE METER 180 mg/dL 70-110 H TESTED AT [place] [address] ([facility]) (test code = [facility] 1538) 18397 POCT-GLUCOSE [id number] 11:26:00 Test Item Value Reference Range Interpretation Comments POC-GLUCOSE METER 172 mg/dL 70-110 H TESTED AT [place] [address] ([facility]) (test code = [facility] 1538) 88267 POCT-GLUCOSE [id number] 06:29:00 Test Item Value Reference Range Interpretation Comments POC-GLUCOSE METER 166 mg/dL 70-110 H TESTED AT [place] [address] ([facility]) (test code = [facility] 1538) 99506 BASIC METABOLIC [id number] 06:02:00 Test Item Value Reference Range Interpretation [...] NOT APPLICABLE FOR DIALYSIS PATIEN TS. POCT-GLUCOSE [id number] 23:57:00 Test Item Value Reference Range Interpretation Comments POC-GLUCOSE METER 175 mg/dL 70-110 H TESTED AT [place] [address] ([facility]) (test code = [facility] 1538) 07922 POCT-GLUCOSE [id number] 18:14:00 Test Item Value Reference Range Interpretation Comments POC-GLUCOSE METER 208 mg/dL 70-110 H TESTED AT [place] [address] ([facility]) (test code = [facility] 1538) 29097 POCT-GLUCOSE [id number] 12:04:00 Test Item Value Reference Range Interpretation Comments POC-GLUCOSE METER 184 mg/dL 70-110 H TESTED AT [place] [address] ([facility]) (test code = [facility] 1538) 57653 BASIC METABOLIC [id number] 07:35:00 Test Item Value Reference Range Interpretation [...] mg/dL 8.4-10.2 (test code = 697) EGFR ([facility]) (test 53 mL/min/1.73 ESTIMA ELVA GFR IS code = 1092) sq m NOT ACCURATE CREATININE CLEARANCE IN PREDICTING GLOMERULAR FILTRATION RATE . ESTIMATED GFR I S NOT APPLICABLE FOR DIALYSIS PATIEN TS. POCT-GLUCOSE [id number] 06:18:00 Test Item Value Reference Range Interpretation Comments POC-GLUCOSE METER 176 mg/dL 70-110 H TESTED AT [place] [address] ([facility]) (test code = [facility] Sean [facility] 1538) 19245 POCT-GLUCOSE [id number] 23:54:00 Test Item Value Reference Range Interpretation Comments POC-GLUCOSE METER 137 mg/dL 70-110 H TESTED AT [place] [address] ([facility]) (test code = [facility] Sean [facility] 1538) 59220 POCT-GLUCOSE [id number] 17:44:00 Test Item Value Reference Range Interpretation Comments POC-GLUCOSE METER 205 mg/dL 70-110 H TESTED AT [place] [address] ([facility]) (test code = [facility] 1538) 47644 POCT-GLUCOSE [id number] 12:33:00 Test Item Value Reference Range Interpretation Comments POC-GLUCOSE METER 199 mg/dL 70-110 H TESTED AT [place] [address] ([facility]) (test code = [facility] 1538) 00602 POCT-GLUCOSE [id number] 06:23:00 Test Item Value Reference Range Interpretation Comments POC-GLUCOSE METER 132 mg/dL 70-110 H TESTED AT [place] [id number] ([facility]) (test code = [facility] 1538) 73516 BASIC METABOLIC [id number] 06:21:00 Test Item Value Reference Range Interpretation [...] NOT APPLICABLE FOR DIALYSIS PATIEN TS. POCT-GLUCOSE [id number] 00:04:00 Test Item Value Reference Range Interpretation Comments POC-GLUCOSE METER 145 mg/dL 70-110 H TESTED AT [place] [address] ([facility] (test code = [facility] 1538) 37034 POCT-GLUCOSE [id number] 18:21:00 Test Item Value Reference Range Interpretation Comments POC-GLUCOSE METER 156 mg/dL 70-110 H TESTED AT [place] [address] ([facility] (test code = [facility] 1538) 31060 POCT-GLUCOSE [id number] 12:17:00 Test Item Value Reference Range Interpretation Comments POC-GLUCOSE METER 231 mg/dL 70-110 H TESTED AT [place] [address] ([facility]) (test code = [facility] 1538) 71301 POCT-GLUCOSE [id number] 06:42:00 Test Item Value Reference Range Interpretation Comments POC-GLUCOSE METER 150 mg/dL 70-110 H TESTED AT [place] [id number] ([facility]) (test code = [facility] 1538) 98851 BASIC METABOLIC [id number] 06:09:00 Test Item Value Reference Range Interpretation [...] PATIEN TS. CBC W/PLT COUNT & AUTO [id number] 06:04:00 Test Item Value Reference Range Interpretation [...] PERCENT (BEAKER) (test code = 2801) POCT-GLUCOSE [id number] 01:27:00 Test Item Value Reference Range Interpretation Comments POC-GLUCOSE METER 160 mg/dL 70-110 H TESTED AT [place] [address] ([facility]) (test code = BRISSA Estrada [facility] 1538) 27976 POCT-GLUCOSE [id number] 17:36:00 Test Item Value Reference Range Interpretation Comments POC-GLUCOSE METER 187 mg/dL 70-110 H TESTED AT [place] [address] ([facility]) ([facility] = [facility] 1538) 06150 POCT-GLUCOSE [id number] 12:14:00 Test Item Value Reference Range Interpretation Comments POC-GLUCOSE METER 217 mg/dL 70-110 H TESTED AT [place] [address] ([facility]) (test code = [facility] 1538) 50583 POCT-GLUCOSE [id number] 05:56:00 Test Item Value Reference Range Interpretation Comments POC-GLUCOSE METER 130 mg/dL 70-110 H TESTED AT [place] [address] ([facility]) (test code = [facility] 1538) 93372 POCT-GLUCOSE [id number] 23:14:00 Test Item Value Reference Range Interpretation Comments POC-GLUCOSE METER 128 mg/dL 70-110 H TESTED AT [place] [address] ([facility]) (test code = BRISSA Estrada [place] 1538) 23500 POCT-GLUCOSE [id number] 17:12:00 Test Item Value Reference Range Interpretation Comments POC-GLUCOSE METER 211 mg/dL 70-110 H TESTED AT [facility] 6720 ([facility] (test code = [place] 1538) 17130 POCT-GLUCOSE [id number] 12:08:00 Test Item Value Reference Range Interpretation Comments POC-GLUCOSE METER 216 mg/dL 70-110 H TESTED AT [facility] 6720 ([facility] (test code = BRISSA Estrada [place] 1538) 81658 POCT-GLUCOSE [id number] 06:07:00 Test Item Value Reference Range Interpretation Comments POC-GLUCOSE METER 143 mg/dL 70-110 H TESTED AT [place] [address] ([facility]) (test code = BRISSA Estrada [place] 1538) 55310 POCT-GLUCOSE [id number] 23:53:00 Test Item Value Reference Range Interpretation Comments POC-GLUCOSE METER 148 mg/dL 70-110 H TESTED AT [place] [address] ([facility]) (test code = BRISSA Estrada [place] 1538) 63015 POCT-GLUCOSE [id number] 17:29:00 Test Item Value Reference Range Interpretation Comments POC-GLUCOSE METER 215 mg/dL 70-110 H TESTED AT [place] [address] ([facility]) (test code = BRISSA Estrada [place] 1538) 89416 POCT-GLUCOSE [id number] 12:09:00 Test Item Value Reference Range Interpretation Comments POC-GLUCOSE METER 218 mg/dL 70-110 H TESTED AT [place] [address] ([facility]) (test code = BRISSA Estrada [place] 1538) 57251 POCT-GLUCOSE [id number] 05:44:00 Test Item Value Reference Range Interpretation Comments POC-GLUCOSE METER 143 mg/dL 70-110 H TESTED AT [place] [address] (BEAKER) (test code = BRISSA Estrada [place] 1538) 74249 [id number] 04:51:00 Test Item Value Reference Range Interpretation Comments MAGNESIUM (BEAKER) 2.1 mg/dL 1.6-2.6 Specimen slightly (test code = 627) hemolyzed BASIC METABOLIC [id number] 04:51:00 Test Item Value Reference Range Interpretation [...] PATIEN TS. CBC W/PLT COUNT & AUTO [id number] 04:31:00 Test Item Value Reference Range Interpretation [...] PERCENT (BEAKER) (test code = 2801) POCT-GLUCOSE [id number] 23:29:00 Test Item Value Reference Range Interpretation Comments POC-GLUCOSE METER 146 mg/dL 70-110 H TESTED AT [place] [address] (BEAKER) (test code = [facility] 1538) 47621 POCT-GLUCOSE [id number] 13:33:00 Test Item Value Reference Range Interpretation Comments POC-GLUCOSE METER 184 mg/dL 70-110 H TESTED AT [place] [address] (BEAKER) (test code = [facility] [place] 1538) 92377 POCT-GLUCOSE [id number] 10:30:00 Test Item Value Reference Range Interpretation Comments POC-GLUCOSE METER 147 mg/dL 70-110 H TESTED AT [place] [address] (BEAKER) (test code = [facility] Sean [place] 1538) 65074 POCT-GLUCOSE [id number] 09:23:00 Test Item Value Reference Range Interpretation Comments POC-GLUCOSE METER 158 mg/dL 70-110 H TESTED AT [place] [id number] (BEAKER) (test code = [facility] [place] [address]) [id number] 07:59:00 Test Item Value Reference Range Interpretation Comments PHOSPHORUS (BEAKER) (test code = 4.0 mg/dL 2.3-4.7 604) [id number] 07:59:00 Test Item Value Reference Range Interpretation Comments MAGNESIUM (BEAKER) (test code = 2.2 mg/dL 1.6-2.6 627) BASIC METABOLIC [id number] 07:59:00 Test Item Value Reference Range Interpretation [...] PATIEN TS. CBC W/PLT COUNT & AUTO [id number] 05:58:00 Test Item Value Reference Range Interpretation [...] PERCENT (BEAKER) (test code = 2801) POCT-GLUCOSE [id number] 17:11:00 Test Item Value Reference Range Interpretation Comments POC-GLUCOSE METER 227 mg/dL 70-110 H TESTED AT [place] [address] ([facility] (test code = [place] 1538) [address] POCT-GLUCOSE [id number] 12:39:00 Test Item Value Reference Range Interpretation Comments POC-GLUCOSE METER 215 mg/dL 70-110 H TESTED AT [place] [address] ([facility]) (test code = [place] 1538) [address] POCT-GLUCOSE [id number] 05:30:00 Test Item Value Reference Range Interpretation Comments POC-GLUCOSE METER 151 mg/dL 70-110 H TESTED AT [place] [address] (BEAKER) (test code = [place] 1538) [address] [id number] 03:57:00 Test Item Value Reference Range Interpretation Comments PHOSPHORUS (BEAKER) (test code = 4.0 mg/dL 2.3-4.7 604) [id number] 03:57:00 Test Item Value Reference Range Interpretation Comments MAGNESIUM (BEAKER) (test code = 2.2 mg/dL 1.6-2.6 627) BASIC METABOLIC [id number] 03:57:00 Test Item Value Reference Range Interpretation [...] S NOT APPLICABLE FOR DIALYSIS PATIEN TS. [id number] 03:47:00 Test Item Value Reference Range Interpretation Comments PARTIAL THROMBOPLASTIN TIME 36.2 seconds 22.5-36.0 H (BEAKER) (test code = 760) CBC W/PLT COUNT & AUTO [id number] 03:42:00 Test Item Value Reference Range Interpretation [...] PERCENT (BEAKER) (test code = 2801) POCT-GLUCOSE [id number] 23:32:00 Test Item Value Reference Range Interpretation Comments POC-GLUCOSE METER 165 mg/dL 70-110 H TESTED AT [facility] 6720 ([facility]) (test code = BRISSA GILMAN 1538) [address] [id number] 20:47:00 Test Item Value Reference Range Interpretation Comments PARTIAL THROMBOPLASTIN TIME 30.9 seconds 22.5-36.0 (BEAKER) (test code = 760) POCT-GLUCOSE [id number] 17:48:00 Test Item Value Reference Range Interpretation Comments POC-GLUCOSE METER 233 mg/dL 70-110 H TESTED AT [facility] 6720 (BEAKER) (test code = [facility] [place] 1538) [address] POCT-GLUCOSE [id number] 12:37:00 Test Item Value Reference Range Interpretation Comments POC-GLUCOSE METER 167 mg/dL 70-110 H TESTED AT [facility] 6720 (BEAKER) (test code = [facility] 1538) [address] POCT-GLUCOSE [id number] 07:22:00 Test Item Value Reference Range Interpretation Comments POC-GLUCOSE METER 139 mg/dL 70-110 H TESTED AT [facility] 6720 [facility] (test code = [facility] 1538) [address] [id number] 04:10:00 Test Item Value Reference Range Interpretation Comments PHOSPHORUS (BEAKER) (test code = 4.5 mg/dL 2.3-4.7 604) [id number] 04:10:00 Test Item Value Reference Range Interpretation Comments MAGNESIUM (BEAKER) (test code = 2.2 mg/dL 1.6-2.6 627) BASIC METABOLIC [id number] 04:10:00 Test Item Value Reference Range Interpretation [...] PATIEN TS. CBC W/PLT COUNT & AUTO [id number] 03:50:00 Test Item Value Reference Range Interpretation [...] 417) IMMATURE GRANULOCYTES-RELATIVE 1 % 0-1 PERCENT (AKER) (test code = 2801) POCT-GLUCOSE [id number] 03:50:00 Test Item Value Reference Range Interpretation Comments POC-GLUCOSE METER 170 mg/dL 70-110 H TESTED AT [facility] 67 ([facility]) (test code = [facility] 1538) [address] [id number] 00:16:00 Test Item Value Reference Range Interpretation Comments PARTIAL THROMBOPLASTIN TIME 31.8 seconds 22.5-36.0 ([facility]) (test code = 760) 6 hours after starting heparin infusion and as indicated per sliding scaleFL, ESOPH, SWALLOW FUNCTION, WITH CINE OR [id number] 18:01:00Reason for exam:->CVAFINAL REPORT Modified barium swallow [...] Chanel Verified Date/Time: 09/19/2018 18:01:02 Reading Location: [address] Consult Reading Room POCT-GLUCOSE [id number] 17:20:00 Test Item Value Reference Range Interpretation Comments POC-GLUCOSE METER 265 mg/dL 70-110 H TESTED AT [facility] 6720 ([facility]) (test code = [facility] 1538) [address] [id number] 16:49:00 Test Item Value Reference Range Interpretation Comments PARTIAL THROMBOPLASTIN TIME 29.3 seconds 22.5-36.0 ([facility]) (test code = 760) Prior to initiating heparinCBC W/PLT COUNT & AUTO [id number] 16:45:00 Test Item Value Reference Range Interpretation [...] PERCENT (BEAKER) (test code = 2801) POCT-GLUCOSE [id number] 15:03:00 Test Item Value Reference Range Interpretation Comments POC-GLUCOSE METER 261 mg/dL 70-110 H TESTED AT [facility] 6720 (BEAKER) (test code = BRISSA Estrada [place] 1538) [address] POCT-GLUCOSE [id number] 08:35:00 Test Item Value Reference Range Interpretation Comments POC-GLUCOSE METER 266 mg/dL 70-110 H TESTED AT [facility] 6720 (BEAKER) (test code = BRISSA Estrada [place] 1538) [address] [id number] 07:15:00 Test Item Value Reference Range Interpretation Comments PHOSPHORUS (BEAKER) (test code = 4.5 mg/dL 2.3-4.7 604) [id number] 07:15:00 Test Item Value Reference Range Interpretation Comments MAGNESIUM (BEAKER) (test code = 2.2 mg/dL 1.6-2.6 627) BASIC METABOLIC [id number] 07:15:00 Test Item Value Reference Range Interpretation [...] 697) EGFR (BEAKER) (test 61 mL/min/1.73 ESTIMA EVLA GFR IS code = 1092) sq m NOT ACCURATE CREATININE CLEARANCE IN PREDICTING GLOMERULAR FILTRATION RATE . ESTIMATED GFR I S NOT APPLICABLE FOR DIALYSIS PATIEN TS. CBC W/PLT COUNT & AUTO [id number] 06:58:00 Test Item Value Reference Range Interpretation [...] PERCENT (BEAKER) (test code = 2801) POCT-GLUCOSE [id number] 23:26:00 Test Item Value Reference Range Interpretation Comments POC-GLUCOSE METER 190 mg/dL 70-110 H TESTED AT [facility] 6720 (BEAKER) (test code = BRISSA Estrada [facility] 1538) [address] POCT-GLUCOSE [id number] 06:41:00 Test Item Value Reference Range Interpretation Comments POC-GLUCOSE METER 158 mg/dL 70-110 H TESTED AT [facility] 6720 (BEAKER) (test code = MANISHAR Sean [facility] 1538) [address] [id number] 04:33:00 Test Item Value Reference Range Interpretation Comments PHOSPHORUS (BEAKER) (test code = 4.8 mg/dL 2.3-4.7 H 604) [id number] 04:33:00 Test Item Value Reference Range Interpretation Comments MAGNESIUM (BEAKER) (test code = 2.1 mg/dL 1.6-2.6 627) BASIC METABOLIC [id number] 04:33:00 Test Item Value Reference Range Interpretation [...] PATIEN TS. CBC W/PLT COUNT & AUTO [id number] 04:14:00 Test Item Value Reference Range Interpretation [...] PERCENT (BEAKER) (test code = 2801) POCT-GLUCOSE [id number] 00:24:00 Test Item Value Reference Range Interpretation Comments POC-GLUCOSE METER 216 mg/dL 70-110 H TESTED AT [facility] 6720 (RAMSEY) (test code = BRISSA Estrada [facility] 1538) [address] POCT-GLUCOSE [id number] 20:48:00 Test Item Value Reference Range Interpretation Comments POC-GLUCOSE METER 276 mg/dL 70-110 H TESTED AT [facility] 6720 [facility] (test code = BRISSA Estrada [facility] 1538) [address] POCT-GLUCOSE [id number] 11:39:00 Test Item Value Reference Range Interpretation Comments POC-GLUCOSE METER 188 mg/dL 70-110 H TESTED AT [facility] 67 ([facility] (test code = BRISSA Estrada [facility] 1538) [address] RAD, ABDOMEN/KUB, 1 VIEW [id number] 09:12:00Reason for exam:->Ng tubeFINAL REPORT Abdomen , one view History: Nasogastric tube Comparison:none Findings:Nonobstructive bowel gas pattern. No pneumoperitoneum. Nasogastric tube terminates within the stomach. No definite bowel pneumatosis or portal venous gas. Impression:Nasogastric tube terminates within the stomach. Signed: Jason Mistry MDReport Verified Date/Time: 09/17/2018 09:12:57 Reading Location: [address] Consult Reading Room [id number] 07:40:00 Test Item Value Reference Range Interpretation Comments PHOSPHORUS (BEAKER) (test code = 3.9 mg/dL 2.3-4.7 604) [id number] 07:40:00 Test Item Value Reference Range Interpretation Comments MAGNESIUM (BEAKER) (test code = 1.8 mg/dL 1.6-2.6 627) BASIC METABOLIC [id number] 07:40:00 Test Item Value Reference Range Interpretation [...] PATIEN TS. CBC W/PLT COUNT & AUTO [id number] 07:27:00 Test Item Value Reference Range Interpretation [...] PERCENT (BEAKER) (test code = 2801) POCT-GLUCOSE [id number] 06:48:00 Test Item Value Reference Range Interpretation Comments POC-GLUCOSE METER 160 mg/dL 70-110 H TESTED AT [facility] 6720 ([facility] (test [facility] 1538) [address] POCT-GLUCOSE [id number] 00:56:00 Test Item Value Reference Range Interpretation Comments POC-GLUCOSE METER 169 mg/dL 70-110 H TESTED AT [facility] 6720 ([facility] (test code = BRISSA Estrada [facility] 1538) [address] NV, ANGIOGRAM, [id number] 17:55:00Reason for exam:->strokeFINAL REPORT DATE: 09/14/2018 ATTENDING: Haroon Montoya MD RESIDENTIAL DIRECTOR: PREOPERATIVE DIAGNOSIS: Acute right middle cerebral artery [...] an angled DSA angiogram was performed through [facility]. Once good location of the puncture site was confirmed, a 8 Palauan short sheath was inserted over a Bentson wire and was maintained on heparinized saline flush throughout the remainder of the procedure. Using coaxial technique, a preflushed 5 Palauan 125cm diagnostic glide catheter on constant heparinized saline flush was placed through a pre-flushed and pre- prepped 8 Palauan Flowgate balloon Guide catheter. The two catheters [...] occlusive in the internal carotid, the assistant womens volleyball coach pulled suction through the lumen of the [...] removed and hemostasis achieved with an 8 Palauan Angioseal and manual compression. The patient tolerated [...] complete resolution of the intravascular thrombus and yazdanism of flow to the distal MCA branches [...] MDReport Verified Date/Time: 09/16/2018 17:55:16 Reading Location: [facility] Y026 Neuro AngioReading Room POCT-GLUCOSE [id number] 17:45:00 Test Item Value Reference Range Interpretation Comments POC-GLUCOSE METER 153 mg/dL 70-110 H TESTED AT [place] [address] (BEAKER) (test code = BRISSA Estrada [facility] 1538) [address] POCT-GLUCOSE [id number] 12:08:00 Test Item Value Reference Range Interpretation Comments POC-GLUCOSE METER 166 mg/dL 70-110 H TESTED AT [facility] 6720 (BEAKER) (test code = BRISSA Estrada [facility] 1538) [address] POCT-GLUCOSE [id number] 06:23:00 Test Item Value Reference Range Interpretation Comments POC-GLUCOSE METER 156 mg/dL 70-110 H TESTED AT [facility] 6720 ([facility] (test code = BRISSA Estrada [facility] 1538) [address] [id number] 05:01:00 Test Item Value Reference Range Interpretation Comments PARTIAL THROMBOPLASTIN TIME 32.5 seconds 22.5-36.0 (BEAKER) (test code = 760) [id number] 04:20:00 Test Item Value Reference Range Interpretation Comments MAGNESIUM (BEAKER) 2.0 mg/dL 1.6-2.6 Specimen moderately (test code = 627) hemolyzed [id number] 04:20:00 Test Item Value Reference Range Interpretation Comments PHOSPHORUS (BEAKER) 2.9 mg/dL 2.3-4.7 Specimen moderately (test code = 604) hemolyzed BASIC METABOLIC [id number] 04:20:00 Test Item Value Reference Range Interpretation [...] PATIEN TS. CBC W/PLT COUNT & AUTO [id number] 04:06:00 Test Item Value Reference Range Interpretation [...] 0-1 PERCENT (AKER) (test code = 2801) [id number] 03:57:00 Test Item Value Reference Range Interpretation Comments FIBRINOGEN LEVEL ([facility]) (test 160 mg/dl 225-434 L code = 658) PROTHROMBIN [id number] 03:56:00 Test Item Value Reference Range Interpretation Comments PROTIME (AKER) (test code = 15.6 seconds 11.9-14.2 H 759) INR ([facility]) (test code = 370) 1.3 <=5.9 Effective 07/06/2018: PT Reference Range ChangeNew: 11.9-14.2 Previous: 11.7- 14.7RECOMMENDED COUMADIN/WARFARIN INR THERAPY RANGESSTANDARD DOSE: 2.0-3.0 Includes: PROPHYLAXIS for venous thrombosis, systemic embolization; TREATMENT for venous thrombosis and/or pulmonary embolus.HIGH RISK: Target INR is 2.5-3.5 for patients wiht mechanical heart valves.POCT-GLUCOSE [id number] 00:13:00 Test Item Value Reference Range Interpretation Comments POC-GLUCOSE METER 134 mg/dL 70-110 H TESTED AT [facility] 6720 ([facility]) (test code = BRISSA [place] 1538) [address] [id number] 18:37:00 Test Item Value Reference Range Interpretation Comments D-DIMER QUANTITATIVE ([facility]) > MG/L FEU <0.50 H (test code [...] Reference Range Interpretation Comments B-TYPE NATRIURETIC PEPTIDE ([facility]) 864 pg/mL 0-100 H (test code = 700) POCT-GLUCOSE [id number] 18:02:00 Test Item Value Reference Range Interpretation Comments POC-GLUCOSE METER 118 mg/dL 70-110 H TESTED AT [facility] 6720 ([facility]) (test code = BRISSA [place] 1538) [address] [id number] 17:57:00 Test Item Value Reference Range Interpretation Comments FIBRINOGEN LEVEL ([facility]) (test 104 mg/dl 225-434 L code = 658) LACTATE DEHYDROGENASE (LDH)2018-09-15 17:56:00 Test Item Value Reference Range Interpretation Comments LACTATE DEHYDROGENASE ([facility]) (test 172 U/L 125-220 code = 635) [id number] 17:52:00 Test Item Value Reference Range Interpretation Comments PARTIAL THROMBOPLASTIN TIME 34.5 seconds 22.5-36.0 ([facility]) (test code = 760) RAD, CHEST, 1 VIEW, NON [id number] 17:39:00Reason for exam:->HFShould this be performed at the bedside?->YesFINAL REPORT Chest dated 09/15/2018 Clinical Information: HF Comment: Heart is enlarged. Pulmonary vasculature is indistinct. Interstitial disease is seen bilaterally suggestive of pulmonary edema. No pleural effusion or pneumothorax is seen. Impression: Congestive failure. Signed: Nik Webster Verified Date/Time: 09/15/2018 17:39:38 Reading Location: [address] Consult Reading Room TROPONIN [id number] 16:44:00 Test Item Value Reference Range Interpretation [...] acidosis, acute neurological disease, and persistent tachyarrhythmia.PROTHROMBIN [id number] 16:23:00 Test Item Value Reference Range Interpretation Comments PROTIME ([facility]) (test code = 16.8 seconds 11.9-14.2 H 759) INR ([facility]) (test code = 370) 1.4 <=5.9 Effective 07/06/2018: PT Reference Range ChangeNew: 11.9-14.2 Previous: 11.7- 14.7RECOMMENDED COUMADIN/WARFARIN INR THERAPY RANGESSTANDARD DOSE: 2.0-3.0 Includes: PROPHYLAXIS for venous thrombosis, systemic embolization; TREATMENT for venous thrombosis and/or pulmonary embolus.HIGH RISK: Target INR is 2.5-3.5 for patients wiht mechanical heart valves.POCT-GLUCOSE [id number] 12:56:00 Test Item Value Reference Range Interpretation Comments POC-GLUCOSE METER 135 mg/dL 70-110 H TESTED AT [place] [address] ([facility]) (test code = BRISSA Estrada [facility] 1538) [address] POCT-GLUCOSE [id number] 08:20:00 Test Item Value Reference Range Interpretation Comments POC-GLUCOSE METER 144 mg/dL 70-110 H TESTED AT [place] [address] ([facility]) (test code = MANISHVAN Sean [facility] 1538) [address] POCT-GLUCOSE [id number] 06:08:00 Test Item Value Reference Range Interpretation Comments POC-GLUCOSE METER 162 mg/dL 70-110 H TESTED AT [place] [address] ([facility]) (test code = BRISSA Estrada [facility] 1538) [address] TROPONIN [id number] 03:48:00 Test Item Value Reference Range Interpretation Comments TROPONIN I ([facility]) (test code = 0.16 ng/mL 0.00-0.03 H [...] acute neurological disease, and persistent tachyarrhythmia.BASIC METABOLIC [id number] 03:29:00 Test Item Value Reference Range Interpretation [...] PATIEN TS. CBC W/PLT COUNT & AUTO [id number] 03:08:00 Test Item Value Reference Range Interpretation [...] (test code = 2801) MR, BRAIN, WITHOUT [id number] 02:57:00Reason for exam:->strokeFINAL REPORT Exam: MRI brain [...] METER 127 mg/dL 70-110 H TESTED AT [place] [address] ([facility]) (test code = [place] [address]) [address] TROPONIN [id number] 17:00:00 Test Item Value Reference Range Interpretation Comments TROPONIN I ([facility]) (test code = 0.16 ng/mL 0.00-0.03 H [...] acidosis, acute neurological disease, and persistent tachyarrhythmia.POCT-GLUCOSE [id number] 16:29:00 Test Item Value Reference Range Interpretation Comments POC-GLUCOSE METER 204 mg/dL 70-110 H TESTED AT [place] [address] ([facility]) (test code = [facility] 1538) [address] POCT-GLUCOSE [id number] 14:11:00 Test Item Value Reference Range Interpretation Comments POC-GLUCOSE METER 230 mg/dL 70-110 H TESTED AT [place] [address] ([facility]) (test code = [facility] 1538) [address] TROPONIN [id number] 11:44:00 Test Item Value Reference Range Interpretation Comments TROPONIN I ([facility]) (test code = 0.11 ng/mL 0.00-0.03 H [...] failure, acidosis, acute neurological disease, and persistent tachyarrhythmia.[id number] 11:42:00 Test Item Value Reference Range Interpretation Comments RPR SCREEN (BEAKER) (test code = Nonreactive Nonreactive 420) HEMOGLOBIN [id number] 06:56:00 Test Item Value Reference Range Interpretation Comments HEMOGLOBIN A1C (BEAKER) (test code = 6.3 % 4.3-6.1 H 368) C-REACTIVE [id number] 04:38:00 Test Item Value Reference Range Interpretation Comments C-REACTIVE PROTEIN (BEAKER) (test 19.08 mg/dL 0.00-0.50 H code = 676) FastingLIPID [id number] 04:09:00 Test Item Value Reference Range Interpretation [...] High 160-189 Very High >=190 FastingBASIC METABOLIC [id number] 04:09:00 Test Item Value Reference Range Interpretation [...] APPLICABLE FOR DIALYSIS PATIEN TS. FastingHEPATIC FUNCTION [id number] 04:09:00 Test Item Value Reference Range Interpretation [...] 9 U/L 6-55 347) FastingTSH/FREE T4 IF [id number] 03:38:00 Test Item Value Reference Range Interpretation Comments THYROID STIMULATING HORMONE 1.68 uIU/mL 0.35-4.94 (BEAKER) (test code = 772) VITAMIN B12 AND [id number] 03:38:00 Test Item Value Reference Range Interpretation Comments VITAMIN B12 (BEAKER) (test code = 853 pg/mL 213-816 H 774) FOLATE (BEAKER) (test code = 362) 12.9 ng/mL >=7.0 [id number] 03:05:00 Test Item Value Reference Range Interpretation [...] 2.5-3.5 for patients wiht mechanical heart valves.PROTHROMBIN TIME/[id number] 03:04:00 Test Item Value Reference Range Interpretation [...] mechanical heart valves.CBC W/PLT COUNT & AUTO [id number] 03:02:00 Test Item Value Reference Range Interpretation [...] PERCENT (BEAKER) (test code = 2801) [facility] [id number] 02:29:00Reason for exam:->strokeFINAL REPORT CLINICAL HISTORY: StrokeIschemic [...] Signed: Miryam Paulson Verified Date/Time: 09/14/2018 02:29:06 [facility] CEREBRAL [facility] [id number] 02:29:00Reason for exam:->Symptom onset less than 6 [...] Bilateral posterior cerebral arteries are patent. The seamless hosiery knitter ior communicating arteries are not identified on [...] by telephone on 09/14/2018 2:00 AM. Signed: iMryam Paulson MDReport Verified Date/Time: 09/14/2018 02:29:06 History and Physical Notes Date/Time Note Provider Source 2022-07-24 18:55:00-00:00 Diana Katz MD: Min VILLALOBOS [facility] Display: History and PhysicalAuthored Date: [id number] and Physical Primary Team Name:Team Contact Info:PCP [...] in a chair on driveway by the marker delivery. Per EMS, patient was sitting with his head below his knees, and alert on their arrival and IV fluids started en route. Patient reports constant AICD firing for the last week with associated chest pain and palpitation. Patient also reports associated lightheadedness, generalized weakness and headache. Patient denies any loss of consciousness. Patient reports he was initially seen at [facility] and told that his defibrillator needed to [...] Pertinent Imaging: N/A Assessment/Plan: 1. Non-ST elevation NV (NSTEMI) (I21.4) Ordered: Admit/Condition, 07/15/22 22:41:00 CDT, Status: Out Patient with Observation Services, Telemetry Capable Location, Expected LOS: 2 Midnights, Diana Katz MD, Admit MD Review/Approve Yes, Isolation: No Isolation/Standard Precautions, Non-ST elevation NV (NSTEMI) 2. Pre-syncope (R55) 3. Altered mental [...] Note Provider Source 2022-07-16 12:45:55-00:00 PROCEDURE INFORMATION: [facility] Exam: XR Chest Exam date and time: [...] Burton Pearl MD On 07/16/2022 17:34:11; VR- [id number] 2021-12-15 11:45:00-00:00 EXAM: Abdomen complete US [facility] DATE: 12/15/2021 11:34. INDICATION: Leukopenia. COMPARISON: None [...]
[2022-08-18 07:39] LABS: Absolute Lymphocytes (CBC) 0.6 K/uL (0.7-4.9); Hematocrit 39.1 % (39.6-49.0); Lymphocytes % 14.3 % (15.3-44.8); MCV 92.2 fL (80-100); MPV 7.7 fL (7.6-11.3); RBC Red Blood Cell Count 4.24 M/uL (4.33-5.43)
[2022-08-18 07:46] LABS: Protime INR 1.05
[2022-08-18 08:16] LABS: Albumin 3.5 g/dL (3.4-5.0); Bilirubin Direct 0.2 mg/dL (0-0.2); Bilirubin Indirect, Calculated 0.5 mg/dL (0.2-0.8); Bilirubin Total 0.7 mg/dL (0.2-1.0); Potassium 3.8 mEq/L (3.5-5.1); Protein, Total 6.7 g/dL (6.4-8.2)
[2022-08-18 08:18] LABS: Troponin High Sensitivity 973.9 pg/mL (<58.9)
[2022-08-18] MEDS ORDERED: LORAZEPAM 1 MG TABLET ONE (08:22)
--- NOTE | 2022-08-18 08:37 | ER ---
Nurse's Notes [facility] Name: Lamin Fitzpatrick III Age: 71 yrs Sex: Male : 1950 Arrival Date: 08/18/2022 Time: 05:44 Bed 4 Private MD: Diagnosis: Chest discomfort, elevated troponin level, anxiety about health, NSTEMI Presentation: 08/18 05:52 Chief complaint: EMS states: pt had a pacemaker placed in March on 2022 and pt as6 believes the battery is . Coronavirus screen: At this time, the client does not indicate any symptoms associated with coronavirus-19. Ebola Screen: No symptoms or risks identified at this time. Initial Sepsis Screen: Does the patient meet any 2 criteria? No. Patient's initial sepsis screen is negative. Does the patient have a suspected source of infection? No. Patient's initial sepsis screen is negative. Risk Assessment: Do you want to hurt yourself or someone else? Patient reports no desire to harm self or others. Onset of symptoms was August 18, 2022. 05:52 Acuity: JODIE 3 as6 05:52 Method Of Arrival: EMS: [facility] as6 Historical: - Allergies: 05:52 Allopurinol; as6 05:52 Alteplase; as6 05:52 Colchicine; as6 05:52 Iodine; as6 - PMHx: 05:52 Atrial fibrillation; CAD; CHF; Chronic pain from gout; CVA; Gout; as6 - PSHx: 05:52 pacemaker; bypass; as6 - Immunization history:: Client reports receiving the 2nd dose of the Covid vaccine, pfizer. - Social history:: Smoking status: Patient denies any tobacco usage or history of. - Family history:: not pertinent. Screenin:54 [facility] ED Fall Risk Assessment (Adult) Score/Fall Risk Level 0 - 2 = Low Risk. Abuse as6 screen: Denies threats or abuse. Denies injuries from another. Nutritional screening: No deficits noted. Tuberculosis screening: No symptoms or risk factors identified. Assessment: 05:55 General: Appears in no apparent distress. Behavior is calm, cooperative. Pain: as6 Complains of pain in chest. Neuro: Level of Consciousness is awake, alert, obeys commands, Oriented to person, place, time, situation. Cardiovascular: Rhythm is Cardiovascular: Reports chest pain. Respiratory: Respiratory effort is even, unlabored, Respiratory pattern is regular, symmetrical. GI: No deficits noted. No signs and/or symptoms were reported involving the gastrointestinal system. : No deficits noted. No signs and/or symptoms were reported regarding the genitourinary system. 07:00 Reassessment: Patient appears in no apparent distress at this time. Patient and/or kc6 family updated on plan of care and expected duration. Pain level reassessed. Patient is alert, oriented x 3, equal unlabored respirations, skin warm/dry/pink. 08:00 Reassessment: Patient appears in no apparent distress at this time. No changes from kc6 previously documented assessment. Patient and/or family updated on plan of care and expected duration. Pain level reassessed. Patient is alert, oriented x 3, equal unlabored respirations, skin warm/dry/pink. Vital Signs: 05:52 BP 128 / 66; Pulse 67; Resp 19 S; Temp 97.6(O); Pulse Ox 100% on R/A; Weight 77.11 kg as6 (R); Height 6 ft. 0 in. (R); Pain 10/10; 06:43 BP 119 / 57; Pulse 60; Resp 20 S; Pulse Ox 99% on R/A; as6 07:49 BP 118 / 58; Pulse 60; Resp 17 S; Pulse Ox 100% on R/A; kc6 08:52 BP 128 / 62; Pulse 60; Resp 17 S; Pulse Ox 100% on R/A; kc6 05:52 Body Mass Index 23.06 (77.11 kg, 182.88 cm) as6 05:52 Pain Scale: Adult as6 ED Course: 05:48 Patient arrived in ED. sp4 05:51 Flo Puentes MD is Attending Physician. sp4 05:52 Chapito Crowe RN is Primary Nurse. as6 05:52 Arm band placed on. as6 05:54 Triage completed. as6 05:54 Bed in low position. Call light in reach. Side rails up X 1. Client placed on as6 continuous cardiac and pulse oximetry monitoring. NIBP monitoring applied. 06:13 Maintain EMS IV. Dressing intact. Good blood return noted. Site clean \T\ dry. Gauge \T\ rv site: 20g right hand. 06:14 XRAY Chest (1 view) In Process Unspecified. EDMS 06:42 Provided Education on: pacemaker battery life . as6 07:00 Report received from PATO Chávez \T\ Chapito Crowe RN. kc6 08:26 0826 CALLED AND SPOKE WITH [facility] ,[place] Saeed\ ADMIN APPROVAL kj 1 0832 \T\ [facility],9 A TOWER RM # [id number]. 09:01 SARS-COV-2 RT PCR Sent. kc6 09:21 No provider procedures requiring assistance completed. Patient transferred, IV remains kc6 in place. Administered Medications: 08:16 Drug: LORazepam PO 1 mg Route: PO; kc6 09:01 Follow up: Response: No adverse reaction; Anxiety decreased; RASS: Alert and Calm (0) kc6 08:49 Drug: Enoxaparin Sub-Q 1 mg/kg Route: Sub-Q; Site: abdomen; kc6 09:24 Follow up: Response: No adverse reaction kc6 08:49 Drug: Aspirin PO Chewable Tablet 324 mg Route: PO; kc6 09:24 Follow up: Response: No adverse reaction kc6 08:49 Drug: Atorvastatin PO 40 mg Route: PO; kc6 09:24 Follow up: Response: No adverse reaction kc6 Medication: 05:54 VIS not applicable for this client. as6 Outcome: 08:36 ER care complete, transfer ordered by . sp4 09:21 Transferred by ground EMS to [facility], Transfer form kc6 completed. Note: PATO Ferreira 09:21 Condition: stable 09:21 Instructed on the need for transfer. 09:32 Patient left the ED. kc6 Signatures: Dispatcher [employer] Rakesh Edmondson RN Dunia Feng1 Chapito Crowe RN RN as6 Campbell, Kaitlyn, RN RN kc6 Potepalov, Sergey, MD MD sp4
--- NOTE | 2022-08-18 08:37 | EDPHYS ---
Physician Documentation [facility] Name: Lamin Fitzpatrick III Age: 71 yrs Sex: Male : 1950 Arrival Date: 08/18/2022 Time: 05:44 Bed 4 Private MD: ED Physician Flo Puentes HPI: 08/18 05:52 This 71 yrs old Male presents to ER via Unassigned with complaints of Pace sp4 Maker. 08:24 Very pleasant 71-year-old male presents with EMS for complaining of chest discomfort sp4 also stating that he thinks his pacemaker is not working properly. . Historical: - Allergies: 05:52 Allopurinol; as6 05:52 Alteplase; as6 05:52 Colchicine; as6 05:52 Iodine; as6 - PMHx: 05:52 Atrial fibrillation; CAD; CHF; Chronic pain from gout; CVA; Gout; as6 - PSHx: 05:52 pacemaker; bypass; as6 - Immunization history:: Client reports receiving the 2nd dose of the Covid vaccine, pfizer. - Social history:: Smoking status: Patient denies any tobacco usage or history of. - Family history:: not pertinent. ROS: 08:24 Constitutional: Negative for fever, chills, and weight loss, Eyes: Negative for injury, sp4 pain, redness, and discharge, ENT: Negative for injury, pain, and discharge, Neck: Negative for injury, pain, and swelling, Cardiovascular: Negative for chest pain, palpitations, and edema, Respiratory: Negative for shortness of breath, cough, wheezing, and pleuritic chest pain, Abdomen/GI: Negative for abdominal pain, nausea, vomiting, diarrhea, and constipation, Back: Negative for injury and pain, : Negative for injury, bleeding, discharge, and swelling, MS/Extremity: Negative for injury and deformity, Skin: Negative for injury, rash, and discoloration, Neuro: Negative for headache, weakness, numbness, tingling, and seizure, Psych: Negative for depression, anxiety, Allergy/Immunology: Negative for hives, rash, and allergies Endocrine: Negative for neck swelling, polydipsia, polyuria, polyphagia, and weight changes Hematologic/Lymphatic: Negative for swollen nodes, abnormal bleeding, and unusual bruising Exam: 08:24 Constitutional: This is a well developed, well nourished patient who is awake, alert, sp4 and in no acute distress. Head/Face: Normocephalic, atraumatic. Eyes: Pupils equal round and reactive to light, extra-ocular motions intact. Lids and lashes normal. Conjunctiva and sclera are not injected. Cornea within normal limits. Periorbital areas with no swelling, redness, or edema. ENT: Nares patent. No nasal discharge, no septal abnormalities noted. Tympanic membranes are normal and external auditory canals are clear. Oropharynx with no redness, swelling, or masses, exudates, or evidence of obstruction, uvula midline. Mucous membranes moist. Neck: Trachea midline, no thyromegaly or masses palpated, and no cervical lymphadenopathy. Supple, full range of motion without nuchal rigidity, or vertebral point tenderness. Chest/axilla: Normal chest wall appearance and motion. Nontender with no deformity. No lesions are appreciated. Cardiovascular: Regular rate and rhythm with a normal S1 and S2. No gallops, murmurs, or rubs. Normal PMI, no JVD. No pulse deficits. 08:33 Respiratory: Lungs have equal breath sounds bilaterally, clear to auscultation and sp4 percussion. No rales, rhonchi or wheezes noted. No increased work of breathing, no retractions or nasal flaring. Abdomen/GI: Soft, non-tender, with normal bowel sounds. No distension or tympany. No guarding or rebound. No evidence of tenderness throughout. Back: No spinal tenderness. No costovertebral tenderness. Skin: Warm, dry with normal turgor. Normal color with no rashes, no lesions, and no evidence of cellulitis. MS/ Extremity: Pulses equal, no cyanosis. Neurovascular intact. Full, normal range of motion. Neuro: Awake and alert, GCS 15, oriented to person, place, time, and situation. Cranial nerves II-XII grossly intact. Motor strength 5/5 in all extremities. Sensory grossly intact. Psych: Awake, alert, with orientation to person, place and time. anxious appearing 08:33 ECG was reviewed by the Attending Physician. sp4 Vital Signs: 05:52 BP 128 / 66; Pulse 67; Resp 19 S; Temp 97.6(O); Pulse Ox 100% on R/A; Weight 77.11 kg as6 (R); Height 6 ft. 0 in. (R); Pain 10/10; 06:43 BP 119 / 57; Pulse 60; Resp 20 S; Pulse Ox 99% on R/A; as6 07:49 BP 118 / 58; Pulse 60; Resp 17 S; Pulse Ox 100% on R/A; kc6 08:52 BP 128 / 62; Pulse 60; Resp 17 S; Pulse Ox 100% on R/A; kc6 05:52 Body Mass Index 23.06 (77.11 kg, 182.88 cm) as6 05:52 Pain Scale: Adult as6 MDM: 05:51 Patient medically screened. sp4 08:07 ED course: EXAM: XR Chest, 1 View CLINICAL HISTORY: The patient is 71 years old and is sp4 Male; CHEST PAIN TECHNIQUE: Single view of the chest. COMPARISON: No relevant prior studies available. FINDINGS: Lungs: No pulmonary vascular congestion or consolidation. Pleural space: Unremarkable. No pneumothorax. Heart: The cardiac silhouette is enlarged versus artifact of AP technique. Mediastinum: Unremarkable. Bones/joints: Sternal closure wires. Degenerative changes in the right AC joint. Upper abdomen: No free air in the visualized upper abdomen. Other findings: Left-sided ICD/pacer. IMPRESSION: No acute cardiopulmonary process identified.. 08:33 Data reviewed: vital signs, nurses notes. sp4 08:33 Differential Diagnosis altered mental status, sepsis, flu. Data reviewed: EMS record, sp4 old medical records, lab test result(s), cardiac enzymes, CBC, electrolytes, hepatic panel, EKG, radiologic studies, plain films. Consideration of Admission/Observation Patient was admitted/placed on observation. Escalation of care including admission/observation considered. Management of patient was discussed with the following: Hospitalist: Admitting hospitalist at [facility]. ED course: Patient was accepted to [facility] in [place] for elevated troponin for evaluation and management of NSTEMI. Based on EKG patient appears to have functional pacemaker.. 08/18 05:51 Order name: Basic Metabolic Panel; Complete Time: 08:21 sp4 08/18 05:51 Order name: CBC with Diff; Complete Time: 08:05 sp4 08/18 05:51 Order name: LFT's; Complete Time: 08:21 sp4 08/18 05:51 Order name: Magnesium; Complete Time: 08:21 sp4 08/18 05:51 Order name: NT PRO-BNP; Complete Time: 08:21 4 08/18 05:51 Order name: PT-INR; Complete Time: 08:05 4 08/18 05:51 Order name: Troponin HS; Complete Time: 08:21 4 08/18 08:32 Order name: Glucose, Ancillary Testing; Complete Time: 08:38 EDMS 08/18 08:39 Order name: SARS-COV-2 RT PCR [facility] 08/18 05:51 Order name: XRAY Chest (1 view) [facility] 08/18 05:51 Order name: EKG; Complete Time: 05:52 [facility] 08/18 05:51 Order name: Cardiac monitoring; Complete Time: 06:13 [facility] 08/18 05:51 Order name: EKG - Nurse/Tech; Complete Time: 06:13 [facility] 08/18 05:51 Order name: IV Saline Lock; Complete Time: 05:55 [facility] 08/18 05:51 Order name: Labs collected and sent; Complete Time: 06:13 [facility] 08/18 05:51 Order name: O2 Per Protocol; Complete Time: 05:55 4 08/18 05:51 Order name: O2 Sat Monitoring; Complete Time: 05:55 [facility] 08/18 06:22 Order name: Labs - recollect needed: all tubes ; Complete Time: 07:31 bc6 EC:33 Rate is 60 beats/min. Rhythm is regular, Paced. Interpreted by me. sp4 Administered Medications: 08:16 Drug: LORazepam PO 1 mg Route: PO; kc6 09:01 Follow up: Response: No adverse reaction; Anxiety decreased; RASS: Alert and Calm (0) kc6 08:49 Drug: Enoxaparin Sub-Q 1 mg/kg Route: Sub-Q; Site: abdomen; kc6 09:24 Follow up: Response: No adverse reaction kc6 08:49 Drug: Aspirin PO Chewable Tablet 324 mg Route: PO; kc6 09:24 Follow up: Response: No adverse reaction kc6 08:49 Drug: Atorvastatin PO 40 mg Route: PO; kc6 09:24 Follow up: Response: No adverse reaction kc6 Disposition Summary: 08/18/22 08:36 Transfer Ordered Transfer Location: [facility]-System sp4 Reason: Higher level of care sp4 Condition: Stable sp4 Problem: new sp4 Symptoms: have improved sp4 Accepting Physician: TNZAFAR Rodrigez(08/18/22 09:32) kc6 Diagnosis - Chest discomfort, elevated troponin level, anxiety about health, NSTEMI sp4 Forms: - Medication Reconciliation Form sp4 - SBAR form sp4 Signatures: Dispatcher [employer] Chapito Bridges RN RN as6 Merced Sage RN RN kc6 Eusebia Maldonado Sergey, MD MD sp4 Corrections: (The following items were deleted from the chart) 09:32 08:36 [facility] sp4 kc6
[2022-08-18] MEDS ORDERED: ATORVASTATIN 40 MG TAB ONE (08:50)
[2022-08-18] MEDS ORDERED: ASPIRIN 81 MG CHEWABLE TABLET ONE (08:50)
[2022-08-18] MEDS ORDERED: ENOXAPARIN 80 MG/0.8 ML SQ ONE (08:50)
[2022-08-18 10:01] VITALS: TEMP 97.6
[2022-08-18 10:04] VITALS: O2SAT 100
[2022-08-18 10:05] VITALS: BP 128/62
--- NOTE | 2022-08-18 11:34 | RAD REPORT ---
CLINICAL HISTORY: The patient is 71 years old and is Male; CHEST PAIN TECHNIQUE: Single view of the chest. COMPARISON: No relevant prior studies available. FINDINGS: Lungs: No pulmonary vascular congestion or consolidation. Pleural space: Unremarkable. No pneumothorax. Heart: The cardiac silhouette is enlarged versus artifact of AP technique. Mediastinum: Unremarkable. Bones/joints: Sternal closure wires. Degenerative changes in the right AC joint. Upper abdomen: No free air in the visualized upper abdomen. Other findings: Left-sided ICD/pacer. IMPRESSION: No acute cardiopulmonary process identified. Electronically signed by: Kelsie Hernandez MD 08/18/2022 6:25 AM CDT Due to temporary technical issues with the PACS/Fluency reporting system, reports are being signed by the in house radiologists without review as a courtesy to insure prompt reporting. The interpreting radiologist is fully responsible for the content of the report.
--- NOTE | 2022-08-18 20:20 | EKG ---
Test Date: 2022-08-18 Test Time: 05:59:07 Print Finisher: GATO MEASUREMENT RESULTS: Intervals: Rate: 60 CT: 100 QRSD: 176 QT: 498 QTc: 498 [place]: P: 29 CT: 100 QRS: 201 T: 27 INTERPRETIVE STATEMENTS: AV sequential or dual chamber electronic pacemaker Compared to ECG 08/16/2022 06:29:40 Ventricular premature complex(es) no longer present Ventricular-paced complex(es) or rhythm no longer present Electronically Signed On 08-18-22 20:18:30 CDT by Blayne Blanco
== END 2022-08-18 09:32 | disposition short-term general hospital (02) ==
LOC: ER 05:44
DX: I21.4 Non-ST elevation (NSTEMI) myocardial infarction (principal); R77.8 Other specified abnormalities of plasma proteins; F41.9 Anxiety disorder, unspecified; I48.91 Unspecified atrial fibrillation; I25.10 Atherosclerotic heart disease of native coronary artery without angina pectoris; I50.9 Heart failure, unspecified; Z95.0 Presence of cardiac pacemaker; Z95.1 Presence of aortocoronary bypass graft; Z20.822 Contact with and (suspected) exposure to COVID-19; Z88.8 Allergy status to other drugs, medicaments and biological substances; Z91.048 Other nonmedicinal substance allergy status
CPT/HCPCS: 36415; 71045; 80048; 80076; 82947; 83735; 83880; 84484; 85025; 85610; 87635; 93005; 96372; 99285

== ENCOUNTER → 2023-02-04 | Emergency (ER) | payer OTHER ==
--- NOTE | 2023-02-04 20:58 | RAD REPORT ---
EXAM DESCRIPTION: RAD - Chest Single View - 02/04/2023 8:45 pm CLINICAL HISTORY: CHEST PAIN COMPARISON: Chest Single View dated 09/01/2022; Chest Single View dated 08/18/2022; Chest Single View dated 08/16/2022; Chest Single View dated 08/05/2022 FINDINGS: Lines: Pacemaker/ICD. Lungs: No evidence of edema or pneumonia. Pleural: No significant pleural effusions or pneumothorax. Cardiac: Cardiomegaly. Mediastinum: Within normal limits. Bones: No acute fractures. Sternotomy. Other: None IMPRESSION: No acute cardiopulmonary disease.
[2023-02-04 21:36] LABS: Absolute Lymphocytes (CBC) 0.6 K/uL (0.7-4.9); Hematocrit 42.3 % (39.6-49.0); Lymphocytes % 14.7 % (15.3-44.8); MPV 8.7 fL (7.6-11.3); Platelets 132 thou/uL (152-406); RBC Red Blood Cell Count 4.65 M/uL (4.33-5.43)
[2023-02-04 21:43] LABS: Albumin 3.8 g/dL (3.4-5.0); Bilirubin Direct 0.2 mg/dL (0-0.2); Bilirubin Indirect, Calculated 0.5 mg/dL (0.2-0.8); Bilirubin Total 0.7 mg/dL (0.2-1.0); Magnesium 1.9 mg/dL (1.6-2.4); Potassium 4.1 mEq/L (3.5-5.1); Protein, Total 7.4 g/dL (6.4-8.2)
[2023-02-04 21:47] LABS: Troponin High Sensitivity 865.7 pg/mL (<58.9)
--- NOTE | 2023-02-04 22:04 | EDPHYS ---
Physician Documentation [facility] Name: Lamin Fitzpatrick III Age: 72 yrs Sex: Male : 1950 Arrival Date: 02/04/2023 Time: 20:09 Bed 7 Private MD: ED Physician Mark Zhao HPI: 02/04 21:09 This 72 yrs old Male presents to ER via EMS with complaints of Chest Pain. marcelina 21:09 The patient or guardian reports chest pain that is located primarily in the anterior marcelina chest wall, left. Onset: just prior to arrival, today. The pain does not radiate. Associated signs and symptoms: The patient has no apparent associated signs or symptoms. The chest pain is described as pulling , wires. Modifying factors: The symptoms are alleviated by nothing. the symptoms are aggravated by nothing. Severity of pain: At its worst the pain was mild in the emergency department the pain has resolved and did so just prior to arrival. The patient has experienced similar episodes in the past, several times. 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 - Social history:: Smoking status: unknown. - Family history:: not pertinent. ROS: 21:09 Constitutional: Negative for fever, chills, and weight loss, Eyes: Negative for injury, marcelina pain, redness, and discharge, ENT: Negative for injury, pain, and discharge, Neck: Negative for injury, pain, and swelling, Cardiovascular: Negative for chest pain, palpitations, and edema, Respiratory: Negative for shortness of breath, cough, wheezing, and pleuritic chest pain, Abdomen/GI: Negative for abdominal pain, nausea, vomiting, diarrhea, and constipation, Back: Negative for injury and pain, : Negative for injury, bleeding, discharge, and swelling, MS/Extremity: Negative for injury and deformity, Skin: Negative for injury, rash, and discoloration, Neuro: Negative for headache, weakness, numbness, tingling, and seizure, Psych: Negative for depression, anxiety, suicide ideation, homicidal ideation, and hallucinations, Allergy/Immunology: Negative for hives, rash, and allergies, Endocrine: Negative for neck swelling, polydipsia, polyuria, polyphagia, and marked weight changes, Hematologic/Lymphatic: Negative for swollen nodes, abnormal bleeding, and unusual bruising, Exam: 21:09 Constitutional: This is a well developed, well nourished patient who is awake, alert, marcelina and in no acute distress. Head/Face: Normocephalic, atraumatic. Eyes: Pupils equal round and reactive to light, extra-ocular motions intact. Lids and lashes normal. Conjunctiva and sclera are non-icteric and not injected. Cornea within normal limits. Periorbital areas with no swelling, redness, or edema. ENT: Nares patent. No nasal discharge, no septal abnormalities noted. Tympanic membranes are normal and external auditory canals are clear. Oropharynx with no redness, swelling, or masses, exudates, or evidence of obstruction, uvula midline. Mucous membranes moist. Neck: Trachea midline, no thyromegaly or masses palpated, and no cervical lymphadenopathy. Supple, full range of motion without nuchal rigidity, or vertebral point tenderness. No Meningismus. Chest/axilla: Normal chest wall appearance and motion. Nontender with no deformity. No lesions are appreciated. Cardiovascular: Regular rate and rhythm with a normal S1 and S2. No gallops, murmurs, or rubs. Normal PMI, no JVD. No pulse deficits. Respiratory: Lungs have equal breath sounds bilaterally, clear to auscultation and percussion. No rales, rhonchi or wheezes noted. No increased work of breathing, no retractions or nasal flaring. Abdomen/GI: Soft, non-tender, with normal bowel sounds. No distension or tympany. No guarding or rebound. No evidence of tenderness throughout. Back: No spinal tenderness. No costovertebral tenderness. Full range of motion. Male : Normal genitalia with no discharge or lesions. Skin: Warm, dry with normal turgor. Normal color with no rashes, no lesions, and no evidence of cellulitis. MS/ Extremity: Pulses equal, no cyanosis. Neurovascular intact. Full, normal range of motion. Neuro: Awake and alert, GCS 15, oriented to person, place, time, and situation. Cranial nerves II-XII grossly intact. Motor strength 5/5 in all extremities. Sensory grossly intact. Cerebellar exam normal. Normal gait. Psych: Awake, alert, with orientation to person, place and time. Behavior, mood, and affect are within normal limits. 21:09 ECG was reviewed by the Attending Physician. Vital Signs: 20:25 BP 142 / 81; Pulse 78; Resp 18; Temp 97.5(O); Pulse Ox 100% on R/A; Weight 82.55 kg; tm6 Height 6 ft. 0 in. ; Pain 0/10; 21:00 BP 135 / 75; Pulse 69; Resp 14; Pulse Ox 100% ; vc1 21:51 BP 135 / 68; Pulse 60; Pulse Ox 99% on R/A; tm6 22:00 BP 138 / 76; Pulse 72; Resp 10; Pulse Ox 100% ; vc1 23:00 BP 102 / 72; Pulse 77; Resp 12; Pulse Ox 98% ; vc1 20:25 Body Mass Index 24.68 (82.55 kg, 182.88 cm) tm6 20:25 Pain Scale: Adult tm6 MDM: 20:20 Patient medically screened. marcelina 21:12 Differential diagnosis: abnormal EKG, acute myocardial infarction, acute pericarditis, marcelina anxiety, coronary artery disease chest wall pain, congestive heart failure Cholelithiasis costochondritis, gastroesophageal reflux disease (GERD), hiatal hernia, pancreatitis, pericarditis, pneumonia, pneumothorax, pulmonary embolus, stable angina, thoracic aortic disection, unstable angina. HEART Score: History: Slightly Suspicious (0), ECG: Non specific repolarization disturbance / LBTB / PM (1), Age: > or = 65 years (2), Risk Factors: > or = 3 Risk factors for atherosclerotic disease (2), [Hypercholesterolemia] [Hypertension] [+ Family HX] [Obesity] Troponin: < or = 1 x Normal Limit (0). The patient was not given aspirin in the Emergency Department. Aspirin not given, patient refused. JEREMÍAS Risk Score: 1 - patient's age is greater or equal to 65 years, 1 - Three or more CAD risk factors, 1- Known CAD, 1 - Recent [<24hrs] Severe Angina, TOTAL SCORE = 4. Data reviewed: vital signs, nurses notes, lab test result(s), EKG, radiologic studies, plain films. Consideration of Admission/Observation Escalation of care including admission/observation considered. I considered the following discharge prescriptions or medication management in the emergency department Medications were administered in the Emergency Department. See MAR. Independent interpretation of the following test(s) in the Emergency Department EKG: See my EKG interpretation above. Test considered but Not performed: Ultrasound no 2 d echo. Historians other than the Patient: EMS: ems well informed. Spouse/Significant Other: well informed. Care significantly affected by the following chronic conditions: Hypertension, Congestive Heart Failure, Obesity. Counseling: I had a detailed discussion with the patient and/or guardian regarding the historical points, exam findings, and any diagnostic results supporting the discharge/admit diagnosis, lab results, radiology results, the need for outpatient follow up, for definitive care, a procurement forester, a family practitioner. 02/04 20:23 Order name: Basic Metabolic Panel; Complete Time: 21:53 [facility] 02/04 20:23 Order name: CBC with Diff; Complete Time: 21:53 [facility] 02/04 20:23 Order name: LFT's; Complete Time: 21:53 02/04 20:23 Order name: Magnesium; Complete Time: 21:53 02/04 20:23 Order name: NT PRO-BNP; Complete Time: 21:53 02/04 20:23 Order name: PT-INR 02/04 20:23 Order name: Troponin HS; Complete Time: 21:53 02/04 20:24 Order name: Lipase; Complete Time: 21:53 [facility] 02/04 20:23 Order name: XRAY Chest (1 view); Complete Time: 21:18 02/04 20:23 Order name: EKG; Complete Time: 20:24 02/04 20:23 Order name: Cardiac monitoring; Complete Time: 20:57 02/04 20:23 Order name: EKG - Nurse/Tech; Complete Time: 20:56 02/04 20:23 Order name: IV Saline Lock; Complete Time: 22:31 02/04 20:23 Order name: Labs collected and sent; Complete Time: 22:31 [place] 02/04 20:24 Order name: O2 Per Protocol; Complete Time: 20:57 02/04 20:24 Order name: O2 Sat Monitoring; Complete Time: 20:57 02/04 20:24 Order name: Lisa. Order: download pm/aicd; Complete Time: 22:34 marcelina EC:09 Rate is 76 beats/min. Rhythm is regular. QRS [place] is Normal. [place] interval is normal. QRS [place] interval is normal. QT interval is normal. No Q waves. T waves are Normal. Clinical impression: Abnormal EKG without significant change and No evidence of ischemia. Interpreted by me. Reviewed by me. Administered Medications: 21:12 Not Given (Patient Refused): aspirinchewable tablet 81 mg PO once vc1 22:44 Not Given (Patient Refused): Heparin ([place]-Bolus No thrombolytic) - [id number] units/kg vc1 IVP once; Max 5000 units 22:45 Not Given (Patient Refused): Heparin ([place] Drip) - ([id number] units, u8i884 ml) 12 vc1 units/kg/hr IV at calculated rate Per protocol; Max initial rate 1000 units/hr Disposition Summary: 02/04/23 22:03 Transfer Ordered Notes: Transfer Location: [facility] marcelina Reason: Higher level of care marcelina Condition: Fair marcelina Problem: new marcelina Symptoms: have improved marcelina Accepting Physician: to [facility](02/05/23 01:05) tm6 Diagnosis - Chest pain, unspecified marcelina - Non ST elevation [place] marcelina - Presence of cardiac pacemaker marcelina Discharge Instructions: - Discharge Summary Sheet marcelina - Nonspecific Chest Pain, Adult marcelina - Chest Wall Pain marcelina - Chest Wall Pain, [id number] marcelina - Nonspecific Chest Pain, Adult, [id number] marcelina - Aspirin and Your Heart marcelina Forms: - Medication Reconciliation Form marcelina - SBAR form marcelina Signatures: Dispatcher [employer] Mark Blakely MD MD cha Masterson, Tawney RN RN tm6 Blessing Mauricio RN vc1 Corrections: (The following items were deleted from the chart) 02/05 01:05 02/04 22:03 to [facility] marcel[place] tm6
--- NOTE | 2023-02-04 22:04 | ER ---
Nurse's Notes [facility] Name: Lamin Fitzpatrick III Age: 72 yrs Sex: Male : 1950 Arrival Date: 02/04/2023 Time: 20:09 Bed 7 Private MD: Diagnosis: Chest pain, unspecified;Non ST elevation [place];Presence of cardiac pacemaker Presentation: 02/04 20:25 Chief complaint: EMS states: patient stated his pacemaker leads had disconnected and tm6 heart was racing. Coronavirus screen: Vaccine status: Client denies travel out of the [place] in the last 14 days. Ebola Screen: Patient negative for fever greater than or equal to 101.5 degrees Fahrenheit, and additional compatible Ebola Virus Disease symptoms Patient denies exposure to infectious person. Patient denies travel to an Ebola-affected area in the 21 days before illness onset. No symptoms or risks identified at this time. Initial Sepsis Screen: Does the patient meet any 2 criteria? No. Patient's initial sepsis screen is negative. Does the patient have a suspected source of infection? No. Patient's initial sepsis screen is negative. Risk Assessment: Do you want to hurt yourself or someone else? Patient reports no desire to harm self or others. Onset of symptoms was February 04, 2023. 20:25 Method Of Arrival: EMS: [facility] tm6 20:25 Acuity: JODIE 3 tm6 Triage Assessment: 20:26 General: Appears in no apparent distress. Behavior is fussy. Pain: Denies pain. EENT: tm6 No signs and/or symptoms were reported regarding the EENT system. Neuro: Level of Consciousness is awake, alert, obeys commands, Oriented to person, place, time, situation, hx of dementia. Cardiovascular: Reports pacemaker leads coming out Capillary refill < 3 seconds Patient's skin is warm and dry. Respiratory: Airway is patent Respiratory effort is even, unlabored, Respiratory pattern is regular, symmetrical. GI: Abdomen is round non-distended. : No signs and/or symptoms were reported regarding the genitourinary system. Derm: No signs and/or symptoms reported regarding the dermatologic system. Musculoskeletal: No signs and/or symptoms reported regarding the musculoskeletal system. 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 - Social history:: Smoking status: unknown. - Family history:: not pertinent. Screenin:28 [facility] ED Fall Risk Assessment (Adult) History of falling in the last 3 months, tm6 including since admission No falls in past 3 months (0 pts). Abuse screen: Denies threats or abuse. Denies injuries from another. Nutritional screening: No deficits noted. Tuberculosis screening: No symptoms or risk factors identified. Assessment: 20:28 Reassessment: see triage assessment. tm6 21:52 Reassessment: Patient and/or family updated on plan of care and expected duration. Pain tm6 level reassessed. Patient is alert, oriented x 3, equal unlabored respirations, skin warm/dry/pink. 22:31 Reassessment: No changes from previously documented assessment. Patient and/or family vc1 updated on plan of care and expected duration. Pain level reassessed. Patient is alert, oriented x 3, equal unlabored respirations, skin warm/dry/pink. 22:33 General: Behavior is uncooperative. vc1 22:45 Reassessment: Patient refused heparin bolus and drip. States "I'm not getting no vc1 Heparin. I'm not going to tell you again.". 02/05 00:47 Reassessment: report called to Mark Anthony [facility]. tm6 00:52 Reassessment: Pt refused to sign transfer form, verbally agreed to transfer. jb4 Vital Signs: 02/04 20:25 BP 142 / 81; Pulse 78; Resp 18; Temp 97.5(O); Pulse Ox 100% on R/A; Weight 82.55 kg; tm6 Height 6 ft. 0 in. ; Pain 0/10; 21:00 BP 135 / 75; Pulse 69; Resp 14; Pulse Ox 100% ; vc1 21:51 BP 135 / 68; Pulse 60; Pulse Ox 99% on R/A; tm6 22:00 BP 138 / 76; Pulse 72; Resp 10; Pulse Ox 100% ; vc1 23:00 BP 102 / 72; Pulse 77; Resp 12; Pulse Ox 98% ; vc1 20:25 Body Mass Index 24.68 (82.55 kg, 182.88 cm) tm6 20:25 Pain Scale: Adult tm6 ED Course: 20:19 Patient arrived in ED. vk 20:20 Mark Zhao MD is Attending Physician. [facility] 20:26 Triage completed. tm6 20:26 Arm band placed on right wrist. EKG completed in triage. Results shown to MD. tm6 20:28 Patient has correct armband on for positive identification. Bed in low position. Call tm6 light in reach. Side rails up X2. Provided Education on: plan of care. Client placed on continuous cardiac and pulse oximetry monitoring. NIBP monitoring applied. compliance monitor on. Door closed. Noise minimized. 20:28 No provider procedures requiring assistance completed. Patient maintains SpO2 tm6 saturation greater than 95% on room air. 20:47 XRAY Chest (1 view) In Process Unspecified. EDMS 21:47 Notified ED physician of a critical lab result(s). Trop 865.7. jb4 23:49 Accepted to [facility] RM:2, by Dr. Moseley \\[id number]\\[id number] per Hattie Tyson. vk 02/05 00:30 accepted for transport with an ETA \\T\\ [id number]. wm 00:48 Patient transferred, IV remains in place. tm6 Administered Medications: 02/04 21:12 Not Given (Patient Refused): aspirinchewable tablet 81 mg PO once vc1 22:44 Not Given (Patient Refused): Heparin ([place]-Bolus No thrombolytic) - vpslgyu48 units/kg vc1 IVP once; Max 5000 units 22:45 Not Given (Patient Refused): Heparin ([place] Drip) - ([id number] units, w0k676 ml) 12 vc1 units/kg/hr IV at calculated rate Per protocol; Max initial rate 1000 units/hr Medication: 22:33 VIS not applicable for this client. vc1 Outcome: 22:03 ER care complete, transfer ordered by . marcelina 02/05 00:46 Transferred by ground EMS tm6 Condition: stable Instructed on the need for transfer, 01:05 Patient left the ED. tm6 Signatures: Dispatcher [employer] EDMS Mark Zhao MD MD cha Bryson, James, RN RN jb4 Melvi Morfin Vanessa, RN RN vc1 Anjel Tristan, RN RN tm6 Sherri Monsalve
[2023-02-04 22:52] LABS: Protime INR 1.03
[2023-02-05 07:23] VITALS: BP 102/72; TEMP 97.5; O2SAT 98
--- NOTE | 2023-02-05 15:28 | EKG ---
Test Date: 2023-02-04 Test Time: 20:26:04 Public Health Epidemiologist: MELI MEASUREMENT RESULTS: Intervals: Rate: 76 CT: 134 QRSD: 162 QT: 456 QTc: 513 [place]: P: 36 CT: 134 QRS: 242 T: 26 INTERPRETIVE STATEMENTS: Atrial-sensed ventricular-paced rhythm Abnormal ECG Compared to ECG 09/01/2022 02:18:41 No significant changes Electronically Signed On 02-05-23 15:26:52 RAILROAD SIGNAL OPERATOR by Ramos Michelle
== END ==
LOC: ER 20:09
DX: I21.4 Non-ST elevation (NSTEMI) myocardial infarction (principal); Z95.810 Presence of automatic (implantable) cardiac defibrillator; I50.9 Heart failure, unspecified; I48.91 Unspecified atrial fibrillation; Z88.8 Allergy status to other drugs, medicaments and biological substances; Z91.048 Other nonmedicinal substance allergy status
CPT/HCPCS: 36415; 71045; 80048; 80076; 83690; 83735; 83880; 84484; 85025; 85610; 93005; 99285